=== PATIENT | female | born 1995 | race Caucasian/White ===

== ENCOUNTER 2018-06-14 17:41 | Outpatient (REF) | payer MEDICAID, SELFPAY | END 2018-06-14 17:42 | LOC: NCHCN 17:41 | PROVIDERS: PCP Specialist/Technologist Athletic Trainer; Visit Provider Physician Assistant Medical | DX: R30.0 Dysuria (principal) | CPT/HCPCS: 87086 ==

== ENCOUNTER 2018-07-17 12:20 | Outpatient (REF) | payer MEDICAID, SELFPAY ==
--- NOTE | 2018-07-17 10:30 | PAPFT_PTH ---
PATIENT: Shannon Barajas LOC: [facility] U#:[id number] AGE/SX: 23/F ROOM: RE07/17/[address]: ABIOLA Dumont : 1995 BED: DIS: 07/17/2018 SPEC #: [id number] RECD: 07/17/18 13:16 STATUS: PRACHI REAdolfo #: [id number] KENROY: 07/17/18 10:[address]: Beth Powers DEPT: [facility] Cytology RECD BY: Leonor Alonso ENTERED: 07/17/18 13:16 SP TYPE: PAPFT OTHR DR: Christiano Wright Tissues: 1 - CX/ENDOCX FOR PAP SMEARS Procedures: PAP THIN PREP/UVM Screening Comments: [id number]
[2018-07-18 14:39] LABS: Chlamydia Result Negative; GC Result Negative; Specimen Description CERVIX
== END 2018-07-17 12:40 ==
LOC: LBN 12:20
PROVIDERS: PCP Specialist/Technologist Athletic Trainer; Visit Provider Nurse Practitioner Family
DX: Z11.3 Encounter for screening for infections with a predominantly sexual mode of transmission (principal); Z12.4 Encounter for screening for malignant neoplasm of cervix
CPT/HCPCS: 87491; 87591; 88142

== ENCOUNTER 2018-08-19 14:27 | Emergency (ER) | payer MEDICAID, SELFPAY ==
[2018-08-19 14:32] VITALS: BP 142/83; PULSE 119; RESP 18; TEMP 36.7; O2SAT 98
--- NOTE | 2018-08-19 14:59 | W.ED.GENAD ---
Discharge Plan Disposition Patient Disposition: HOME Condition: Good Discharge Details Chief Complaint: Sorethroat Clinical Impression: Acute bilateral otitis media Primary Care Provider: Christiano Wright ED Provider: Miguel May Home Meds and New Rx's Prescriptions: New amoxicillin 500 mg capsule 500 mg PO TID Qty: 30 RF: 0 Continue fluoxetine 10 MG capsule 10 mg PO DAILY RF: 0 medroxyprogesterone [Depo-Provera] 150 MG/1 ML syringe 150 mg IM every 3 months Qty: 1 RF: 5 quetiapine 25 MG tablet 25 mg PO BID RF: 0 clonidine HCl [Catapres] 0.2 MG tablet 0.2 mg PO HS RF: 0 divalproex 500 MG tablet extended release 24 hr 500 mg PO BID RF: 0 dicyclomine 20 MG tablet 20 mg PO QID PRN (Reason: Pain) Qty: 12 RF: 0 dicyclomine 20 MG tablet 20 mg PO QID 7 Days RF: 0 Discharge Instructions Instructions: Otitis Media (ED) Discharge Data Discharge Physician: Miguel May Medical Decision Making 23 yo female comes in with bilateral ear pain, sore throat and dry cough for 4-5 days. Denies fevers or difficulty swallowing or sob. She has bilateral redness of both tm's so will start on abx for aom. no findings to suggest mastoiditis. 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 I suspect she has a viral uri and eveloped AOM. Her lungs are clear and has no fever so do not feel xray indicated at this time. Advised f/u with pcp this week and return precautions given Differential Diagnosis aom, uri HPI General Mode of arrival: ambulatory. Date/Time Provider Initiated Documentation: 08/19/18 14:52. Limitations to Documentation: no limitations. Information obtained by: patient. History of Present Illness 23 year old F presents to the emergency department with the chief complaint of bilateral ear pain, described as moderate, with intensity rated at 5. Quality is described as aching, Patient reports no radiation. No relieving factors improve symptom(s), No exacerbating factors reported . Patient notes other (sore throat). Patient did receive the following treatments prior to arrival, none Related Data Home Medications Medication Instructions Recorded Confirmed clonidine HCl [Catapres] 0.2 mg PO HS 03/29/13 07/17/18 divalproex 500 mg PO BID 03/29/13 07/17/18 quetiapine 25 mg PO BID 03/29/13 07/17/18 fluoxetine 10 mg PO DAILY 02/24/17 07/17/18 medroxyprogesterone [Depo-Provera] 150 mg IM every 3 months #1 syringe 04/18/18 dicyclomine 20 mg PO QID PRN #12 tab 05/19/18 07/17/18 dicyclomine 20 mg PO QID 7 Days tab 05/24/18 07/17/18 amoxicillin 500 mg PO TID #30 cap 08/19/18 Previous Rx's Medication Instructions Recorded medroxyprogesterone [Depo-Provera] 150 mg IM every 3 months #1 syringe 04/18/18 dicyclomine 20 mg PO QID PRN #12 tab 05/19/18 dicyclomine 20 mg PO QID 7 Days tab 05/24/18 amoxicillin 500 mg PO TID #30 cap 08/19/18 Allergies Allergy/AdvReac Type Severity Reaction Status Date / Time paroxetine HCl [From Paxil] Allergy Intermediate Hives Verified 07/17/18 10:25 risperidone [From Risperdal] Allergy Intermediate Hives Verified 07/17/18 10:25 NSAIDS (Non-Steroidal Allergy Verified 07/17/18 10:25 Anti-Inflamma enviornmental Allergy Mild sneezing Uncoded 05/24/18 20:47 General Stated Complaint: Sorethroat MARY KAY: 4 Review of Systems Review of Systems All systems reviewed & are unremarkable except as noted in HPI and below Constitutional Denies weakness Eyes Denies loss of vision ENT Denies change in voice Cardiovascular Denies chest pain and Denies dyspnea Respiratory Denies dyspnea Gastrointestinal Denies abdominal pain, Denies nausea and Denies vomiting Genitourinary Denies dysuria Musculoskeletal Denies joint swelling Integumentary/Breasts Denies rash Neurologic Denies loss of vision and Denies weakness Psychiatric Denies depression Endocrine Denies cold intolerance and Denies heat intolerance Allergic/Immunologic Reports urticaria PFSH Female Reproductive History Menstrual control method: progesterone injection Total pregnancies: 0 Exam Const General: no acute distress Orientation: alert HENMT Head: normal to inspection Ears: other (both tm's red and bulging, no redness swelling or warmth or pain over mastoids) General nose exam: external nose normal Mouth: moist mucous membranes Eyes General: appearance normal, both eyes and all related structures Neck Neck: normal visual inspection Resp Effort & Inspection: normal respiratory effort and able to speak in complete sentences Cardio Rate: regular rate Skin General skin exam: no rashes or lesions noted Neuro General: alert and oriented x3 Extrem General: normal to inspection Psych Mental Status: mental status grossly normal Course Vital Signs Temperature 36.7 C 08/19/18 14:32 Pulse 119 H 08/19/18 14:32 Respiratory Rate 18 08/19/18 14:32 Blood Pressure 142/83 H 08/19/18 14:32 Pulse Oximetry 98 08/19/18 14:32 Temperature 36.7 C 08/19/18 14:32 Temperature Source Temporal Artery Scan 08/19/18 14:32 Pulse 119 H 08/19/18 14:32 Respiratory Rate 18 08/19/18 14:32 Respiratory Effort 08/19/18 14:35 Blood Pressure 142/83 H 08/19/18 14:32 Blood Pressure Position Supine 08/19/18 14:32 Pulse Oximetry 98 08/19/18 14:32 Oxygen Delivery Method Room Air 08/19/18 14:32 Oxygen Flow Rate 0 08/19/18 14:32
--- NOTE | 2018-08-19 15:03 | ED.GENADUL_ITS ---
Discharge Plan Disposition Patient Disposition: HOME Condition: Good Discharge Details Chief Complaint: Sorethroat Clinical Impression: Acute bilateral otitis media Primary Care Provider: Christiano Wright ED Provider: Miguel May Home Meds and New Rx's Prescriptions: New amoxicillin 500 mg capsule 500 mg PO TID Qty: 30 RF: 0 Continue fluoxetine 10 MG capsule 10 mg PO DAILY RF: 0 medroxyprogesterone [Depo-Provera] 150 MG/1 ML syringe 150 mg IM every 3 months Qty: 1 RF: 5 quetiapine 25 MG tablet 25 mg PO BID RF: 0 clonidine HCl [Catapres] 0.2 MG tablet 0.2 mg PO HS RF: 0 divalproex 500 MG tablet extended release 24 hr 500 mg PO BID RF: 0 dicyclomine 20 MG tablet 20 mg PO QID PRN (Reason: Pain) Qty: 12 RF: 0 dicyclomine 20 MG tablet 20 mg PO QID 7 Days RF: 0 Discharge Instructions Instructions: Otitis Media (ED) Discharge Data Discharge Physician: Miguel May Medical Decision Making 23 yo female comes in with bilateral ear pain, sore throat and dry cough for 4- 5 days. Denies fevers or difficulty swallowing or sob. She has bilateral redness of both tm's so will start on abx for aom. no findings to suggest mastoiditis. 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 I suspect she has a viral uri and eveloped AOM. Her lungs are clear and has no fever so do not feel xray indicated at this time. Advised f/u with pcp this week and return precautions given Differential Diagnosis aom, uri HPI General Mode of arrival: ambulatory . Date/Time Provider Initiated Documentation: 08/19/18 14:52 . Limitations to Documentation: no limitations . Information obtained by: patient . History of Present Illness 23 year old F presents to the emergency department with the chief complaint of bilateral ear pain, described as moderate, with intensity rated at 5. Quality is described as aching, Patient reports no radiation. No relieving factors improve symptom(s), No exacerbating factors reported . Patient notes other (sore throat). Patient did receive the following treatments prior to arrival, none Related Data Home Medications Medication Instructions Recorded Confirmed clonidine HCl [Catapres] 0.2 mg PO HS 03/29/13 07/17/18 divalproex 500 mg PO BID 03/29/13 07/17/18 quetiapine 25 mg PO BID 03/29/13 07/17/18 fluoxetine 10 mg PO DAILY 02/24/17 07/17/18 medroxyprogesterone [Depo-Provera] 150 mg IM every 3 months #1 syringe 04/18/18 dicyclomine 20 mg PO QID PRN #12 tab 05/19/18 07/17/18 dicyclomine 20 mg PO QID 7 Days tab 05/24/18 07/17/18 amoxicillin 500 mg PO TID #30 cap 08/19/18 Previous Rx's Medication Instructions Recorded medroxyprogesterone [Depo-Provera] 150 mg IM every 3 months #1 syringe 04/18/18 dicyclomine 20 mg PO QID PRN #12 tab 05/19/18 dicyclomine 20 mg PO QID 7 Days tab 05/24/18 amoxicillin 500 mg PO TID #30 cap 08/19/18 Allergies Allergy/AdvReac Type Severity Reaction Status Date / Time paroxetine HCl [From Paxil] Allergy Intermediate Hives Verified 07/17/18 10:25 risperidone [From Risperdal] Allergy Intermediate Hives Verified 07/17/18 10:25 NSAIDS (Non-Steroidal Allergy Verified 07/17/18 10:25 Anti-Inflamma enviornmental Allergy Mild sneezing Uncoded 05/24/18 20:47 General Stated Complaint: Sorethroat MARY KAY: 4 Review of Systems Review of Systems All systems reviewed & are unremarkable except as noted in HPI and below Constitutional Denies weakness Eyes Denies loss of vision ENT Denies change in voice Cardiovascular Denies chest pain and Denies dyspnea Respiratory Denies dyspnea Gastrointestinal Denies abdominal pain, Denies nausea and Denies vomiting Genitourinary Denies dysuria Musculoskeletal Denies joint swelling Integumentary/Breasts Denies rash Neurologic Denies loss of vision and Denies weakness Psychiatric Denies depression Endocrine Denies cold intolerance and Denies heat intolerance Allergic/Immunologic Reports urticaria PFSH Female Reproductive History Menstrual control method: progesterone injection Total pregnancies: 0 Exam Const General: no acute distress Orientation: alert HENMT Head: normal to inspection Ears: other (both tm's red and bulging, no redness swelling or warmth or pain over mastoids) General nose exam: external nose normal Mouth: moist mucous membranes Eyes General: appearance normal, both eyes and all related structures Neck Neck: normal visual inspection Resp Effort & Inspection: normal respiratory effort and able to speak in complete sentences Cardio Rate: regular rate Skin General skin exam: no rashes or lesions noted Neuro General: alert and oriented x3 Extrem General: normal to inspection Psych Mental Status: mental status grossly normal Course Vital Signs Temperature 36.7 C 08/19/18 14:32 Pulse 119 H 08/19/18 14:32 Respiratory Rate 18 08/19/18 14:32 Blood Pressure 142/83 H 08/19/18 14:32 Pulse Oximetry 98 08/19/18 14:32 Temperature 36.7 C 08/19/18 14:32 Temperature Source Temporal Artery Scan 08/19/18 14:32 Pulse 119 H 08/19/18 14:32 Respiratory Rate 18 08/19/18 14:32 Respiratory Effort 08/19/18 14:35 Blood Pressure 142/83 H 08/19/18 14:32 Blood Pressure Position Supine 08/19/18 14:32 Pulse Oximetry 98 08/19/18 14:32 Oxygen Delivery Method Room Air 08/19/18 14:32 Oxygen Flow Rate 0 08/19/18 14:32
== END 2018-08-19 15:23 | disposition home or self-care (01) ==
PROVIDERS: Emergency Provider Emergency Medicine; PCP Specialist/Technologist Athletic Trainer
DX: H65.193 Other acute nonsuppurative otitis media, bilateral (principal)
CPT/HCPCS: 87880; 99283; 87081

== ENCOUNTER 2019-02-15 20:42 | Emergency (ER) | payer MEDICAID, SELFPAY ==
[2019-02-15 20:50] VITALS: BP 163/98; PULSE 108; RESP 18; TEMP 36.7; O2SAT 97
--- NOTE | 2019-02-15 21:03 | ED.GENADUL_ITS ---
Discharge Plan Disposition Patient Disposition: HOME Condition: Good Discharge Details Chief Complaint: Urinary Clinical Impression: UTI (urinary tract infection), Acute mesenteric adenitis Primary Care Provider: Christiano Wright ED Provider: Douglas Gamez Home Meds and New Rx's Prescriptions: New cephalexin [Keflex] 500 mg capsule 500 mg PO QID 7 Days Qty: 28 RF: 0 No Action fluoxetine 10 MG capsule 10 mg PO DAILY RF: 0 medroxyprogesterone [Depo-Provera] 150 MG/1 ML syringe 150 mg IM every 3 months Qty: 1 RF: 5 quetiapine 25 MG tablet 25 mg PO BID RF: 0 clonidine HCl [Catapres] 0.2 MG tablet 0.2 mg PO HS RF: 0 divalproex 500 MG tablet extended release 24 hr 500 mg PO BID RF: 0 Discharge Instructions Instructions: Urinary Tract Infection in Women (ED) Additional Instructions: Please take the antibiotic as directed. Please drink 10-12 cups of water per day. If you notice any worsening of your symptoms, or any new symptoms such as vomiting, diarrhea, fever, chills, shortness of breath, chest pain, numbness, weakness, or fainting , please return immediately to the emergency department for reevaluation. Please follow up with your primary care provider as soon as possible for reassessment and reevaluation. As always, it was a pleasure participating in your medical care today. Referrals: Christiano Wright [Primary Care Provider] - Medical Decision Making This is a 23-year-old female with a past medical history of chronic kidney disease, obesity, depression and ADHD who presents today for evaluation of flank pain, mild urinary burning, mild infraumbilical abdominal pain. She does admit to occasional vomiting over the last 24 hours, but also seems to insinuate that there is a chronic component. Last episode of vomiting was this evening. Her story does seem to change during our encounter. Exam demonstrates very mild reproducible infraumbilical and right lower quadrant tenderness. Vital signs demonstrate mild tachycardia. She denies any pelvic pain, she does admit to some mild chronic clear vaginal discharge, she denies any history of STDs or sexual encounters ever. She is requesting to hold off in any vaginal exam at this time. Signs and symptoms inconsistent with vaginal/pelvic etiology, and are also clinically inconsistent with ovarian torsion. Exam is concerning though for questionable appendicitis, kidney stone, or urinary tract infection. We will get a CT scan to evaluate for an acute process, rehydrate, reassess. 10:53 PM Urinalysis has returned and demonstrates evidence concerning for urinary tract infection. Laboratory demonstrates a mildly elevated white count at 12.2, no bandemia, very mild left shift. Electrolytes and renal function are normal. Lipase is normal. We are still pending CT scan results at this time. 11:[address] scan results have returned, no evidence of appendicitis, there is evidence of mesenteric adenitis O. Contracted gallbladder but otherwise no other significant abnormalities on CT scan. No other concerning red flags on imaging. The patient feels much better at this time, she is able to tolerate p.o. challenge well, and with a notable improvement of her symptoms, feel that discharge home is reasonable. She has been given a gram of ceftriaxone here in the ED and will be given a prescription for Keflex at home. I have extensively reviewed the treatment plan and discharge instructions with the patient and their family. I have addressed all patient concerns at this time. The patient and family was made aware of what symptoms to monitor for that would warrant a return to the emergency department. Discussed the plan with the patient and family, they demonstrate verbal understanding and agreement with our assessment and plan at this time. FINDINGS: Lower thorax: No acute findings. ABDOMEN: Liver: Normal. No mass. Gallbladder and bile ducts: The gallbladder is contracted there are no stones visible no dilatation of the bile ducts. Pancreas: Normal. No ductal dilation. Spleen: Normal. No splenomegaly. Adrenals: Normal. No mass. Kidneys and ureters: Normal. No hydronephrosis. Stomach and bowel: The stomach is moderately distended with fluid and residual food material. Appendix: The appendix shows no abdomen on it. However there are multiple shotty lymph nodes adjacent to the medial aspect of the cecum these are also seen in the previous study in 05/18/2018. There is no definite inflammation in this area otherwise however. PELVIS: Bladder: Unremarkable as visualized. Reproductive: The ovaries are prominent but show no acute abnormality. ABDOMEN and PELVIS: Intraperitoneal space: Normal. No free air. No significant fluid collection. Bones/joints: No acute fracture. No dislocation. Soft tissues: Unremarkable. Vasculature: Normal. No abdominal aortic aneurysm. Lymph nodes: See Appendix Finding. IMPRESSION: #1 there is no evidence of appendicitis. Again noted are findings suggesting mesenteric adenitis similar to 05/18/2018. #2 contracted gallbladder but otherwise no evidence of acute cholecystitis. Thank you for allowing us to participate in the care of your patient. Dictated and Authenticated by: Miguel Bertrand MD 02/15/2019 11:03 PM Eastern Time ([place] & [place]) HPI General Date/Time Provider Initiated Documentation: 02/15/19 20:48 . HPI Narrative: This is a 23-year-old female with a past medical history of chronic kidney disease stage I, ADHD, hypertension, Nexplanon, and obesity and depression, who presents today for evaluation of abdominal pain nausea and vomiting, and flank pain. Patient states that for the last day she has had mild burning when she urinates, pain in her bilateral flanks that radiates down towards her groin, as well as occasional intermittent nausea and vomiting. She does admit to abdominal pain as well in the infraumbilical region, with some radiation to the right. She denies any pelvic pain. She does admit to her regular vaginal discharge. She denies any sexual intercourse, states that she does not have a boyfriend and has never had sex. She denies any history of STDs. She denies any vaginal bleeding. She is requesting that we do not perform any vaginal exams at this time. She denies any chest pain, shortness of breath, weakness, numbness, headache, vision changes, hematochezia, melena, acholic stools or diarrhea. No other complaints at this time. She is currently here with 1 of her care workers. Related Data Home Medications Medication Instructions Recorded Confirmed clonidine HCl [Catapres] 0.2 mg PO HS 03/29/13 02/15/19 divalproex 500 mg PO BID 03/29/13 02/15/19 quetiapine 25 mg PO BID 03/29/13 02/15/19 fluoxetine 10 mg PO DAILY 02/24/17 02/15/19 medroxyprogesterone [Depo-Provera] 150 mg IM every 3 months #1 syringe 04/18/18 02/15/19 cephalexin [Keflex] 500 mg PO QID 7 Days #28 cap 02/15/19 Previous Rx's Medication Instructions Recorded medroxyprogesterone [Depo-Provera] 150 mg IM every 3 months #1 syringe 04/18/18 cephalexin [Keflex] 500 mg PO QID 7 Days #28 cap 02/15/19 Allergies Allergy/AdvReac Type Severity Reaction Status Date / Time paroxetine HCl [From Paxil] Allergy Intermediate Hives Verified 02/15/19 20:54 risperidone [From Risperdal] Allergy Intermediate Hives Verified 02/15/19 20:54 NSAIDS (Non-Steroidal Allergy Verified 02/15/19 20:54 Anti-Inflamma enviornmental Allergy Mild sneezing Uncoded 02/15/19 20:54 General Stated Complaint: Urinary MARY KAY: 3 Review of Systems Review of Systems All systems reviewed & are unremarkable except as noted in HPI and below PFSH Social History Smoking/Tobacco Use Status: Former Tobacco Use Alcohol Intake: current Alcohol Intake frequency: holidays/special occasions only Drug use: Never Substance use type: does not use Sexually active: No (has never been sexually active. ) What is your relationship status?: never Panel score (0-1 are the most socially isolated patients): 0 Do you feel safe in your relationship?: Yes Additional Social history: 11/23/18 Pt reports living in house with lap layer. Reports not being able to shower at her current living situation. GM lives in the area. 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 Female Reproductive History Menstrual control method: progesterone injection (01/2017 Nexplanon for dysmenorrhea. Unable to rito insertion of IUD. Depo since 09/2017) History History 0 Para Hx # Term Pregnancies Multiple births Hx # Pregnancies Ectopic pregnancies AB induced Hx Number of Living Children AB spontaneous Exam Narrative Exam Narrative: 1.Const: Well-nourished, Well-developed, appearing stated age 2.Eyes: PERRL, no conjunctival injection, and symmetrical lids. 3.ENT: Atraumatic external nose and ears. Moist MM. Neck: Symmetric, trachea midline, No thyromegaly. 4.CVS: +S1/S2, No murmurs or gallops. Peripheral pulses 2+ and equal in all extremities. Brisk capillary refill in all extremities. 5.RESP: Unlabored respiratory effort. Clear to auscultation bilaterally. No wheezes rales or rhonchi 6.GI: Soft, Nondistended, No hepatosplenomegaly. No guarding or rebound. Mild tenderness in the infraumbilical region, as well as some radiation to the right. No significant CVA or flank tenderness. No pelvic pain on palpation. Negative obturator and psoas sign. 7.MSK: Normocephalic/Atraumatic, Extremities w/o deformity or ttp No cyanosis or clubbing, Normal movement of all extremities 8.Skin: Warm, Dry. No rashes or lesions. 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 Sensation grossly intact, no focal neurologic deficits. 10.Psych: (AAO) x3. Appropriate mood and affect Course Vital Signs Temperature 36.7 C 02/15/19 20:50 Pulse 108 H 02/15/19 20:50 Respiratory Rate 18 02/15/19 20:50 Blood Pressure 163/98 H 02/15/19 20:50 Pulse Oximetry 97 02/15/19 20:50 Temperature 36.7 C 02/15/19 20:50 Pulse 108 H 02/15/19 20:50 Respiratory Rate 18 02/15/19 20:50 Respiratory Effort Non-Labored 02/15/19 20:55 Blood Pressure 163/98 H 02/15/19 20:50 Pulse Oximetry 97 02/15/19 20:50 Pain Level 4 02/15/19 20:55
[2019-02-15 21:21] LABS: Bilirubin Negative (Negative); Blood Negative (Negative); Clarity Clear; Glucose Negative (Negative); Ketones Trace mg/dL (Negative); Leukocyte Esterase Trace (Negative); Nitrite Negative (Negative); Specific Gravity 1.025 (1.005-1.025); Urobilinogen 0.2 EU/dL (Up TO 0.2)
[2019-02-15 21:39] LABS: Bacteria Rare HPF (Negative); C & S Indicated? Yes; Casts Negative LPF (Negative); Epithelial Cells Few HPF (Negative); Mucus Trace (Negative); RBC Negative (0-2); WBC 20-50 HPF (0-5)
[2019-02-15 21:51] LABS: Abs Immature Grans 0.02 k/cumm (0.0-0.09); Absolute Basophil Count 0.02 k/cumm (0.0-0.2); Absolute Eosinophil Count 0.18 k/cumm (0.0-0.7); Absolute Lymphocyte Count 2.84 k/cumm (1.2-3.4); Absolute Monocyte Count 1.15 k/cumm (0.11-0.7); Absolute Neutrophil Count 8.06 k/cumm (1.2-6.7); Basophils % 0.2; Eosinophils % 1.5; HCT 40.6 % (36.0-46.0); HGB 13.3 g/dL (12.0-15.5); Immature Grans % 0.2; Lymphocytes % 23.1; Mean Corp. HGB Concentration 32.8 g/dL (32.0-36.0); Mean Corpuscular Hemoglobin 25.2 pg (27.0-33.0); Mean Corpuscular Volume 76.9 fL (80-95); Monocytes % 9.4; Neutrophils % 65.6; Platelet Count 281 x1000/uL (130-400); RBC 5.28 m/cumm (4.00-5.20); RBC Distribution Width 14.9 % (11.7-14.6); White Blood Cell Count 12.28 k/cumm (4.4-10.8)
[2019-02-15] MEDS: Omnipaque 350 MG/ML 100 ML BTL IJ (21:58)
--- NOTE | 2019-02-15 21:59 | DI.CT_ITS ---
SYMPTOM/DIAGNOSIS: RLQ ABD PAIN, BILAT FLANK PAIN ABDOMEN AND PELVIC CT: CT examination of the abdomen and pelvis was performed with a bolus infusion of 100 cc's of Omnipaque 350. Images obtained through the lung bases are unremarkable. Liver, spleen, pancreas, gallbladder and bile ducts are unremarkable. Adrenals and kidneys appear normal. No urinary tract calcification or obstruction. Abdominal aorta is of normal diameter and no major vascular abnormality is seen. There is mild prominence of mesenteric lymph nodes, both centrally and in the right lower quadrant. No bulky adenopathy is seen. Appendix is normal. No evidence of diverticulitis or bowel obstruction. 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 No abdominal wall hernia is seen. CONCLUSION: Mild mesenteric lymph node prominence right lower quadrant and central. No evidence of appendicitis.
[2019-02-15 22:08] LABS: ALT 29 U/L (12-78); AST 17 U/L (15-37); Albumin 3.9 g/dL (3.4-5.0); Alkaline Phosphatase 109 U/L (46-116); Anion Gap 12.7 mmol/L (3-11); BUN 10 mg/dL (7-18); Bilirubin, Total 0.2 mg/dL (0.2-1.0); CO2 23.3 mmol/L (21.0-32.0); CREATININE 0.62 mg/dL (0.55-1.02); Chloride 103 mmol/L (98-107); Glucose 101 mg/dL (70-100); Lipase 102 U/L (73-393); Potassium 3.4 mmol/L (3.5-5.1); Sodium 139 mmol/L (136-145); Total Protein 7.7 g/dL (6.4-8.2)
[2019-02-15 22:15] LABS: Calcium 9.1 mg/dL (8.5-10.1)
--- NOTE | 2019-02-15 23:05 | DI.VRAD_ITS ---
EXAM: CT Abdomen and Pelvis With Contrast EXAM DATE/TIME: 02/15/2019 8:56 PM CLINICAL HISTORY: 23 years old, female; Pain; Abdominal pain; Localized; Right lower quadrant (rlq) TECHNIQUE: Imaging protocol: Axial computed tomography images of the abdomen and pelvis with intravenous contrast. Coronal and sagittal reformatted images were created and reviewed. Radiation optimization: All CT scans at this facility use at least one of these dose optimization techniques: automated exposure control; mA and/or kV adjustment per patient size (includes targeted exams where dose is matched to clinical indication); or iterative reconstruction. Contrast material: [id number] Contrast volume: 100 ml Contrast route: iv COMPARISON: CT ABD PELVIS WITH CONTRAST 05/18/2018 10:06 PM FINDINGS: Lower thorax: No acute findings. ABDOMEN: Liver: Normal. No mass. Gallbladder and bile ducts: The gallbladder is contracted there are no stones visible no dilatation of the bile ducts. Pancreas: Normal. No ductal dilation. Spleen: Normal. No splenomegaly. Adrenals: Normal. No mass. Kidneys and ureters: Normal. No hydronephrosis. Stomach and bowel: The stomach is moderately distended with fluid and residual food material. Appendix: The appendix shows no abdomen on it. However there are multiple shotty lymph nodes adjacent to the medial aspect of the cecum these are also seen in the previous study in 05/18/2018. There is no definite inflammation in this area otherwise however. PELVIS: Bladder: Unremarkable as visualized. Reproductive: The ovaries are prominent but show no acute abnormality. ABDOMEN and PELVIS: Intraperitoneal space: Normal. No free air. No significant fluid collection. Bones/joints: No acute fracture. No dislocation. Soft tissues: Unremarkable. Vasculature: Normal. No abdominal aortic aneurysm. Lymph nodes: See Appendix Finding. IMPRESSION: #1 there is no evidence of appendicitis. Again noted are findings suggesting mesenteric adenitis similar to 05/18/2018. #2 contracted gallbladder but otherwise no evidence of acute cholecystitis. Dictated and Authenticated by: Miguel Bertrand MD. Ordering:DIO Cole MD
== END 2019-02-15 23:20 | disposition home or self-care (01) ==
PROVIDERS: Emergency Provider Student in an Organized Health Care Education/Training Program; PCP Specialist/Technologist Athletic Trainer
DX: N39.0 Urinary tract infection, site not specified (principal); I88.0 Nonspecific mesenteric lymphadenitis
CPT/HCPCS: 36415; 80053; 81025; 83690; 96374; 96375; 99285; 74177; 81003; 81015; 85025; 87086; 99284; J2405; J3490

== ENCOUNTER 2019-02-27 14:55 | Outpatient (REF) | payer MEDICAID, SELFPAY ==
[2019-03-01 13:59] LABS: Chlamydia Result Negative; GC Result Negative; Specimen Description URINE
== END 2019-02-27 15:15 ==
LOC: LBN 14:55
PROVIDERS: PCP Specialist/Technologist Athletic Trainer; Visit Provider Nurse Practitioner Family
DX: R35.0 Frequency of micturition (principal); Z11.3 Encounter for screening for infections with a predominantly sexual mode of transmission
CPT/HCPCS: 87491; 87591; 87086

== ENCOUNTER 2019-03-03 18:30 | Emergency (ER) | payer MEDICAID, SELFPAY ==
[2019-03-03 18:32] VITALS: BP 146/92; PULSE 119; RESP 18; TEMP 36.7; O2SAT 97
[2019-03-03 18:55] LABS: Bilirubin Negative (Negative); Blood Negative (Negative); Clarity Clear; Glucose Negative (Negative); Ketones Negative (Negative); Leukocyte Esterase Negative (Negative); Nitrite Negative (Negative); Specific Gravity 1.025 (1.005-1.025); Urobilinogen 0.2 EU/dL (Up TO 0.2)
--- NOTE | 2019-03-03 18:56 | ED.GENADUL_ITS ---
Discharge Plan Disposition Patient Disposition: HOME Condition: Improving Discharge Details Chief Complaint: Urinary Clinical Impression: Urinary incontinence, Foul smelling vaginal discharge, Abdominal pain Primary Care Provider: Christiano Wright ED Provider: Margoth Donohue Home Meds and New Rx's Prescriptions: New fluconazole [Diflucan] 150 mg tablet 150 mg PO ONCE Qty: 1 RF: 0 metronidazole [Flagyl] 500 mg tablet 500 mg PO BID 7 Days Qty: 14 RF: 0 Continued nitrofurantoin monohyd/m-cryst [Macrobid] 100 mg capsule 100 mg PO BID Qty: 14 RF: 0 fluoxetine 10 MG capsule 10 mg PO DAILY RF: 0 medroxyprogesterone [Depo-Provera] 150 MG/1 ML syringe 150 mg IM every 3 months Qty: 1 RF: 5 quetiapine 25 MG tablet 25 mg PO BID RF: 0 clonidine HCl [Catapres] 0.2 MG tablet 0.2 mg PO HS RF: 0 divalproex 500 MG tablet extended release 24 hr 500 mg PO BID RF: 0 Discharge Instructions Instructions: Bacterial Vaginosis (ED), Vulvovaginal Candidiasis (ED), Abdominal Pain (ED) Additional Instructions: Take the Diflucan and Flagyl as directed until finished. Take the Macrobid until finished. Call your primary care doctor tomorrow to schedule a follow-up appointment for reevaluation this week. Return immediately to emergency department with any worsening or new concerning symptoms. Discharge Data Discharge Date/Time-TO BE ENTERED AT DEPARTURE: 03/03/19 19:49 Discharge Physician: Margoth Donohue Medical Decision Making 23-year-old female with recent treatment for UTI with Keflex and Macrobid who presents with persistent urinary incontinence and left lower quadrant pain for the past 2 weeks. She was seen here in the ED on 02/15/2019 for abdominal pain and had lab work and imaging which was positive for UTI and mesenteric adenitis and she was sent home with Keflex. She states her symptoms of urinary incontinence and abdominal pain persisted and she followed up with the clinic and was given a prescription for Macrobid for her dysuria. Records at that time note that she could possibly have vaginal atrophy that are contributing to her symptoms. She also admits to foul-smelling white thick vaginal discharge and vaginal itching. She states she has never had sexual intercourse and has never been sexually active with anyone in the past. Negative test at pcp office 4 days ago. Heart rate tachycardic on arrival, normal on my exam, remainder vitals within normal limits. Afebrile. Patient appears nontoxic. Abdomen is soft and very minimally tender in the left lower quadrant. As patient had recent CT imaging and her symptoms have not changed since then, I do not see an indication for repeat imaging and patient is agreeable. She is agreeable with plan for repeat blood work and vaginal cultures. 1920 --patient unable to tolerate speculum exam due to discomfort. She states she is usually unable to tolerate speculum on previous vaginal exams. She is noted to have white foul-smelling discharge with some minimal vaginal bleeding and mild external labial erythema/edema. No lesions/abrasions. No cervical motion tenderness, no adnexal mass or tenderness bilaterally on bimanual exam. Discussed with patient that due to her symptoms, this may be due to bacterial vaginosis and/or yeast infection. Although we do not have cultures to confirm this, we can treat her empirically and she is agreeable with this plan. On reexamination of abdomen, patient had no abdominal tenderness. In the setting of normal labs, reassuring abdominal exam with no left lower quadrant tenderness on abdominal or bimanual exam, doubt ovarian torsion or another acute abdominal process at this time. Labs reviewed and unremarkable. Urinalysis negative. Patient instructed to finish the Macrobid as directed. Will send home with prescription for Flagyl and Diflucan. Patient instructed to follow-up with her primary care doctor next week and return here immediately if worse. Lab Data Lab results reviewed: Yes I reviewed the patient's lab results. Laboratory Tests Range/Units 03/03/19 03/03/19 03/03/19 18:48 19:03 19:03 WBC (4.4-10.8) k/cumm 10.31 RBC (4.00-5.20) m/cumm 5.19 Hgb (12.0-15.5) g/dL 13.3 Hct (36.0-46.0) % 39.6 MCV (80-95) fL 76.3 L MCH (27.0-33.0) pg 25.6 L MCHC (32.0-36.0) g/dL 33.6 RDW (11.7-14.6) % 14.5 Plt Count (130-400) x1000/uL 250 MPV (8.0-11.0) fL 12.9 H Immature Gran % 0.2 Neutrophils % 61.9 Lymphocytes % 24.6 Monocytes % 11.4 Eosinophils % 1.5 Basophils % 0.4 Absolute Neutrophils (1.2-6.7) k/cumm 6.38 Absolute Lymphocytes (1.2-3.4) k/cumm 2.54 Absolute Monocytes (0.11-0.7) k/cumm 1.18 H Absolute Eosinophils (0.0-0.7) k/cumm 0.15 Absolute Basophils (0.0-0.2) k/cumm 0.04 Sodium (136-145) mmol/L 138 Potassium (3.5-5.1) mmol/L 3.5 Chloride (98-107) mmol/L 103 Carbon Dioxide (21.0-32.0) mmol/L 24.1 Anion Gap (3-11) mmol/L 10.9 BUN (7-18) mg/dL 9 Creatinine (0.55-1.02) mg/dL 0.64 Estimated GFR/1.73 m2 (mL/min/1.73m2) >= 60.00 Glucose (70-100) mg/dL 109 H Calcium (8.5-10.1) mg/dL 8.7 Total Bilirubin (0.2-1.0) mg/dL 0.2 AST (15-37) U/L 16 ALT (12-78) U/L 28 Alkaline Phosphatase (46-116) U/L 111 Total Protein (6.4-8.2) g/dL 7.5 Albumin (3.4-5.0) g/dL 3.7 Lipase (73-393) U/L 103 Urine Color (Yellow) Yellow Urine Clarity Clear Urine pH (5-8) 7.0 Ur Specific [place] (1.005-1.025) 1.025 Urine Protein (Negative) mg/dL 100 H Urine Ketones (Negative) mg/dL Negative Urine Blood (Negative) Negative Urine Nitrite (Negative) Negative Urine Bilirubin (Negative) Negative Urine Urobilinogen (Up TO 0.2) EU/dL 0.2 Ur Leukocyte Esterase (Negative) Negative Urine RBC (0-2) Negative Urine WBC (0-5) HPF 0-2 Ur Epithelial Cells (Negative) HPF Rare Urine Crystals (Negative) HPF Negative Urine Bacteria (Negative) HPF Few Urine Casts (Negative) LPF Negative Urine Mucus (Negative) Trace Urine Other (Negative) Rare renal Ur Culture Indicated? No Urine Glucose (Negative) mg/dL Negative HPI General Mode of arrival: ambulatory . Date/Time Provider Initiated Documentation: 03/03/19 18:32 . Limitations to Documentation: no limitations . Information obtained by: patient . HPI Narrative: Patient is a 23-year-old female who presents with urinary incontinence and left lower quadrant pain for the past few weeks. Patient states the pain in the left lower quadrant is sharp and intermittent. She has recently been seen in the emergency department for this abdominal pain and had lab work and CT imaging and diagnosed with a UTI and treated with Keflex. She had a follow-up clinic visit and was given a prescription for Macrobid for her dysuria. Patient is not sexually active. Patient states she has been vomiting at the time she is taking the Macrobid and she is unsure keeping the medication down. She denies any known fever or back pain. Related Data Home Medications Medication Instructions Recorded Confirmed clonidine HCl [Catapres] 0.2 mg PO HS 03/29/13 03/03/19 divalproex 500 mg PO BID 03/29/13 03/03/19 quetiapine 25 mg PO BID 03/29/13 03/03/19 fluoxetine 10 mg PO DAILY 02/24/17 03/03/19 medroxyprogesterone [Depo-Provera] 150 mg IM every 3 months #1 syringe 04/18/18 03/03/19 nitrofurantoin 100 mg PO BID #14 cap 02/27/19 03/03/19 monohydrate/macrocrystals 100 mg capsule fluconazole [Diflucan] 150 mg PO ONCE #1 tab 03/03/19 metronidazole [Flagyl] 500 mg PO BID 7 Days #14 tab 03/03/19 Previous Rx's Medication Instructions Recorded medroxyprogesterone [Depo-Provera] 150 mg IM every 3 months #1 syringe 04/18/18 nitrofurantoin 100 mg PO BID #14 cap 02/27/19 monohydrate/macrocrystals 100 mg capsule fluconazole [Diflucan] 150 mg PO ONCE #1 tab 03/03/19 metronidazole [Flagyl] 500 mg PO BID 7 Days #14 tab 03/03/19 Allergies Allergy/AdvReac Type Severity Reaction Status Date / Time paroxetine HCl [From Paxil] Allergy Intermediate Hives Verified 03/03/19 18:55 risperidone [From Risperdal] Allergy Intermediate Hives Verified 03/03/19 18:55 NSAIDS (Non-Steroidal Allergy Verified 03/03/19 18:55 Anti-Inflamma enviornmental Allergy Mild sneezing Uncoded 03/03/19 18:55 General Stated Complaint: Urinary MARY KAY: 4 Review of Systems Review of Systems All systems reviewed & are unremarkable except as noted in HPI and below Constitutional Reports as per HPI, Denies chills and Denies fever(s) Eyes Denies blurry vision ENT Denies dizziness, Denies sore throat and Denies throat swelling Cardiovascular Denies chest pain and Denies dyspnea Respiratory Denies cough and Denies dyspnea Gastrointestinal Reports abdominal pain, Denies diarrhea and Reports vomiting Genitourinary Denies hematuria, Reports urinary frequency, Reports dysuria, Reports urinary incontinence, Reports urinary hesitancy, Reports urinary urgency, Reports vaginal odor and Reports vaginal pruritus Musculoskeletal Denies back pain and Denies numbness Integumentary/Breasts Denies lesions and Denies rash Neurologic Denies dizziness, Denies focal weakness and Denies numbness Allergic/Immunologic Denies throat swelling [facility] Medical History BMI 40.0-44.9, adult (Chronic) Overactive bladder (Chronic 02/09/18) Kidney disease (Chronic 09/13/17) 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 Reports not being able to shower at her current living situation. GM lives in the area. 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 Female Reproductive History Menstrual control method: progesterone injection (01/2017 Nexplanon for dysmenorrhea. Unable to rito insertion of IUD. Depo since 09/2017) History History 0 Para Hx # Term Pregnancies Multiple births Hx # Pregnancies Ectopic pregnancies AB induced Hx Number of Living Children AB spontaneous Exam Const General: cooperative, healthy appearing and no acute distress HENMT Head: normal to inspection Face and sinus: normal facial exam Eyes General: appearance normal, both eyes and all related structures EOM: EOM intact bilaterally Neck Neck: normal visual inspection and No submandibular swelling Lymphatic: no lymphadenopathy noted Chest Chest: normal inspection of the chest and no tenderness Resp Effort & Inspection: normal respiratory effort and able to speak in complete sentences Auscultation: clear to auscultation bilaterally Cardio Rate: regular rate Rhythm: regular rhythm GI Inspection: normal to inspection Palpation: soft, not firm, not rigid and tender (minimal LLQ tenderness ) Auscultation: normal bowel sounds Other: whitish vaginal discharge noted on external exam Skin General skin exam: no rashes or lesions noted Neuro General: alert, awake and oriented x3 Cognition: normal cognition Speech: speech normal Motor: muscle tone normal throughout Sensory Exam: no sensory deficits noted Extrem General: normal to inspection, full ROM and no edema Psych Appearance: grossly normal Mental Status: mental status grossly normal Speech and Movement: speech and movement normal Affect: normal affect Course Vital Signs Temperature 98.1 F 03/03/19 18:32 Pulse 119 H 03/03/19 18:32 Respiratory Rate 18 03/03/19 18:32 Blood Pressure 146/92 H 03/03/19 18:32 Pulse Oximetry 97 03/03/19 18:32 Temperature 98.1 F 03/03/19 18:32 Temperature Source Skin 03/03/19 18:32 Pulse 119 H 03/03/19 18:32 Respiratory Rate 18 04/27/19 18:32 Respiratory Effort Non-Labored 03/03/19 18:49 Blood Pressure 146/92 H 03/03/19 18:32 Blood Pressure Position Supine 03/03/19 18:32 Pulse Oximetry 97 03/03/19 18:32 Oxygen Delivery Method Room Air 03/03/19 18:32 Oxygen Flow Rate 0 03/03/19 18:32 Pain Level 4 03/03/19 18:32
[2019-03-03 19:02] LABS: Bacteria Few HPF (Negative); Crystals Negative HPF (Negative); Epithelial Cells Rare HPF (Negative); Mucus Trace (Negative); Other Cells Rare Renal (Negative); RBC Negative (0-2); WBC 0-2 HPF (0-5)
[2019-03-03 19:03] LABS: C & S Indicated? No; Casts Negative LPF (Negative)
[2019-03-03 19:15] LABS: Abs Immature Grans 0.02 k/cumm (0.0-0.09); Absolute Basophil Count 0.04 k/cumm (0.0-0.2); Absolute Eosinophil Count 0.15 k/cumm (0.0-0.7); Absolute Lymphocyte Count 2.54 k/cumm (1.2-3.4); Absolute Monocyte Count 1.18 k/cumm (0.11-0.7); Absolute Neutrophil Count 6.38 k/cumm (1.2-6.7); Basophils % 0.4; Eosinophils % 1.5; HCT 39.6 % (36.0-46.0); HGB 13.3 g/dL (12.0-15.5); Immature Grans % 0.2; Lymphocytes % 24.6; Mean Corp. HGB Concentration 33.6 g/dL (32.0-36.0); Mean Corpuscular Hemoglobin 25.6 pg (27.0-33.0); Mean Corpuscular Volume 76.3 fL (80-95); Mean Platelet Volume 12.9 fL (8.0-11.0); Monocytes % 11.4; Neutrophils % 61.9; Platelet Count 250 x1000/uL (130-400); RBC 5.19 m/cumm (4.00-5.20); RBC Distribution Width 14.5 % (11.7-14.6); White Blood Cell Count 10.31 k/cumm (4.4-10.8)
[2019-03-03 19:22] LABS: ALT 28 U/L (12-78); AST 16 U/L (15-37); Albumin 3.7 g/dL (3.4-5.0); Alkaline Phosphatase 111 U/L (46-116); Anion Gap 10.9 mmol/L (3-11); BUN 9 mg/dL (7-18); Bilirubin, Total 0.2 mg/dL (0.2-1.0); CO2 24.1 mmol/L (21.0-32.0); CREATININE 0.64 mg/dL (0.55-1.02); Chloride 103 mmol/L (98-107); Glucose 109 mg/dL (70-100); Lipase 103 U/L (73-393); Potassium 3.5 mmol/L (3.5-5.1); Sodium 138 mmol/L (136-145); Total Protein 7.5 g/dL (6.4-8.2)
[2019-03-03 19:27] LABS: Calcium 8.7 mg/dL (8.5-10.1)
[2019-03-03] MEDS: Dicyclomine 20 MG TAB PO (19:41)
== END 2019-03-03 19:49 | disposition home or self-care (01) ==
PROVIDERS: Emergency Provider Physician Assistant; PCP Specialist/Technologist Athletic Trainer
DX: N89.8 Other specified noninflammatory disorders of vagina (principal); R32 Unspecified urinary incontinence; R00.0 Tachycardia, unspecified; R10.32 Left lower quadrant pain; I15.1 Hypertension secondary to other renal disorders; N18.1 Chronic kidney disease, stage 1
CPT/HCPCS: 36415; 80053; 83690; 99283; 81003; 81015; 85025

== ENCOUNTER 2019-04-13 20:06 | Emergency (ER) | payer MEDICAID, SELFPAY ==
[2019-04-13 20:19] VITALS: BP 143/88; PULSE 129; RESP 18; TEMP 36.4; O2SAT 98
[2019-04-13 20:40] VITALS: RESP 18
[2019-04-13 20:48] LABS: Abs Immature Grans 0.03 k/cumm (0.0-0.09); Absolute Basophil Count 0.04 k/cumm (0.0-0.2); Absolute Eosinophil Count 0.21 k/cumm (0.0-0.7); Absolute Lymphocyte Count 2.11 k/cumm (1.2-3.4); Absolute Monocyte Count 1.29 k/cumm (0.11-0.7); Absolute Neutrophil Count 8.83 k/cumm (1.2-6.7); Basophils % 0.3; Eosinophils % 1.7; HCT 39.7 % (36.0-46.0); HGB 13.1 g/dL (12.0-15.5); Immature Grans % 0.2; Lymphocytes % 16.9; Mean Corpuscular Hemoglobin 25.3 pg (27.0-33.0); Mean Corpuscular Volume 76.8 fL (80-95); Mean Platelet Volume 13.3 fL (8.0-11.0); Monocytes % 10.3; Neutrophils % 70.6; Platelet Count 231 x1000/uL (130-400); RBC 5.17 m/cumm (4.00-5.20); RBC Distribution Width 15.3 % (11.7-14.6); White Blood Cell Count 12.51 k/cumm (4.4-10.8)
[2019-04-13] MEDS: Ondansetron 4 MG/2 ML VIAL IVP (20:49)
[2019-04-13] MEDS: Normal Saline 2,000 ML 1000 ML IV (20:49)
[2019-04-13 20:51] LABS: Bilirubin Negative (Negative); Blood Negative (Negative); Clarity Clear; Glucose Negative (Negative); Ketones Trace mg/dL (Negative); Leukocyte Esterase Negative (Negative); Nitrite Negative (Negative); Specific Gravity 1.025 (1.005-1.025); Urobilinogen 0.2 EU/dL (Up TO 0.2); pH 6.5 (5-8)
[2019-04-13 21:02] LABS: ALT 27 U/L (12-78); AST 13 U/L (15-37); Albumin 3.8 g/dL (3.4-5.0); Alkaline Phosphatase 106 U/L (46-116); Anion Gap 11.6 mmol/L (3-11); BUN 8 mg/dL (7-18); Bilirubin, Total 0.2 mg/dL (0.2-1.0); CO2 23.4 mmol/L (21.0-32.0); Chloride 104 mmol/L (98-107); Glucose 146 mg/dL (70-100); Lipase 94 U/L (73-393); Potassium 3.7 mmol/L (3.5-5.1); Sodium 139 mmol/L (136-145); Total Protein 7.5 g/dL (6.4-8.2)
[2019-04-13 21:04] LABS: Epithelial Cells Few HPF (Negative); RBC 0-2 (0-2)
[2019-04-13 21:05] LABS: Bacteria Rare HPF (Negative); C & S Indicated? No; Casts Negative LPF (Negative); Crystals Negative HPF (Negative); Mucus Heavy (Negative)
--- NOTE | 2019-04-13 22:14 | W.ED.GENAD ---
Discharge Plan Disposition Patient Disposition: HOME Condition: Good Discharge Details Chief Complaint: GenMedical Clinical Impression: Acute right otitis media, Gastroenteritis Primary Care Provider: Christiano Wright ED Provider: Douglas Gamez Home Meds and New Rx's Prescriptions: New amoxicillin 500 mg capsule 1,000 mg PO TID 7 Days Qty: 42 RF: 0 ondansetron HCl [Zofran] 4 mg tablet 4 mg PO QID PRN (Reason: nausea and vomiting) Qty: 7 RF: 0 No Action melatonin 3 mg tablet 3 mg PO HS RF: 0 fluoxetine 10 MG capsule 10 mg PO DAILY RF: 0 medroxyprogesterone [Depo-Provera] 150 MG/1 ML syringe 150 mg IM every 3 months Qty: 1 RF: 5 quetiapine 25 MG tablet 25 mg PO BID RF: 0 clonidine HCl [Catapres] 0.2 MG tablet 0.2 mg PO HS RF: 0 Discharge Instructions Instructions: Otitis Media (ED), Gastroenteritis (ED) Additional Instructions: You have otitis media, which is an infection in the right ear. Please take the antibiotic amoxicillin as directed for treatment of this. There is concern that there may have been a rupture of your tympanic membrane, please do not submerge your head underwater, or take any baths. You can take shower as long as you make sure no water gets in your ear. You also have what I suspect to be a viral gastroenteritis. Please take the Zofran as needed for nausea. Drink 10 to 12 cups of water per day. If you notice any worsening of your symptoms, or any new symptoms such as vomiting, diarrhea, fever, chills, shortness of breath, chest pain, numbness, weakness, or fainting , please return immediately to the emergency department for reevaluation. Please follow up with your primary care provider as soon as possible for reassessment and reevaluation. As always, it was a pleasure participating in your medical care today. Referrals: Christiano Wright [Primary Care Provider] - Medical Decision Making This is a very pleasant 24-year-old female who presents today for evaluation of vomiting and diarrhea for the last 2 to 3 days, in addition to mild right-sided ear pain. Physical exam demonstrates a nontender abdomen, no guarding or rebound whatsoever. The patient does not admit to any abdominal tenderness herself either. She appears slightly dehydrated with dry mucous membranes. Right tympanic membrane demonstrates notable erythema and purulence behind the TM, and an atypical linear lesion on the TM, potentially an earlier rupture of the tympanic membrane. No signs of clear rupture at this point though. No concerning red flags of meningitis, surgical abdomen, or vaginal pain. test is negative. No concerning red flags of hematochezia melena or acholic stool or hematemesis, fever, recent travel, recent antibiotics. Additionally the patient has multiple family members with near identical symptoms which are most likely the source of her current symptoms. With no abdominal tenderness no imaging is clinically indicated at this time. She has no pain at McBurney's point, no clinical evidence of gallbladder or appendiceal pathology. Laboratory work-up demonstrates a minimally elevated white count, most likely secondary to reactivity from her vomiting, no bandemia. Normal electrolytes, no anion gap, normal renal function. Normal bilirubin. Urinalysis is negative, lipase is normal. Patient was given 2 L of normal saline and her heart rate went down from 126 to a normal non-tachycardic rate. She remains afebrile, no signs of sepsis or other significant abnormality. I feel that her signs and symptoms are clinically consistent with a viral gastroenteritis, as well as right-sided otitis media. She will be given a prescription for amoxicillin. She has tolerated p.o. here. We will give her Zofran as needed for home, and recommend close follow-up. She has had no bowel movements here, and with no recent antibiotics or foreign travel I do not think that stool cultures are indicated at this time. I have extensively reviewed the treatment plan and discharge instructions with the patient and their family. I have addressed all patient concerns at this time. The patient and family was made aware of what symptoms to monitor for that would warrant a return to the emergency department. Discussed the plan with the patient and family, they demonstrate verbal understanding and agreement with our assessment and plan at this time. HPI General Date/Time Provider Initiated Documentation: 04/13/19 20:27. HPI Narrative: This is a 24-year-old female with a past medical history of obesity, hypertension, ADHD, who presents today for evaluation of nausea and vomiting as well as mild right-sided ear pain. Patient states that for the last 3 days she has had occasional vomiting occasional diarrhea, as well as mild right ear pain, and questionable drainage from the right ear. She denies any headache or neck pain. She states that she has had multiple family members with identical symptoms, and she is concerned that she got them from them. She denies any hematochezia melena or acholic stool or hematemesis. She denies any fever or chills. She denies any recent foreign travel or recent antibiotic use. She denies any recent camping trips. She denies any previous abdominal surgeries or any abdominal pain whatsoever. She denies vaginal discharge. No other complaints at this time. Related Data Home Medications Medication Instructions Recorded Confirmed clonidine HCl [Catapres] 0.2 mg PO HS 03/29/13 04/13/19 quetiapine 25 mg PO BID 03/29/13 04/13/19 fluoxetine 10 mg PO DAILY 02/24/17 04/13/19 medroxyprogesterone [Depo-Provera] 150 mg IM every 3 months #1 syringe 04/18/18 04/13/19 melatonin 3 mg tablet 3 mg PO HS 03/22/19 04/13/19 amoxicillin 1,000 mg PO TID 7 Days #42 cap 04/13/19 ondansetron HCl [Zofran] 4 mg PO QID PRN #7 tab 04/13/19 Previous Rx's Medication Instructions Recorded medroxyprogesterone [Depo-Provera] 150 mg IM every 3 months #1 syringe 04/18/18 amoxicillin 1,000 mg PO TID 7 Days #42 cap 04/13/19 ondansetron HCl [Zofran] 4 mg PO QID PRN #7 tab 04/13/19 Allergies Allergy/AdvReac Type Severity Reaction Status Date / Time paroxetine HCl [From Paxil] Allergy Intermediate Hives Verified 04/13/19 20:23 risperidone [From Risperdal] Allergy Intermediate Hives Verified 04/13/19 20:23 NSAIDS (Non-Steroidal Allergy Verified 04/13/19 20:23 Anti-Inflamma enviornmental Allergy Mild sneezing Uncoded 04/13/19 20:23 General Stated Complaint: GenMedical MARY KAY: 3 Review of Systems Review of Systems All systems reviewed & are unremarkable except as noted in HPI and below PFSH Medical History BMI 40.0-44.9, adult (Chronic) Overactive bladder (Chronic 02/09/18) Kidney disease (Chronic 09/13/17) 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 Reports not being able to shower at her current living situation. GM lives in the area. 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 Female Reproductive History Menstrual control method: progesterone injection (01/2017 Nexplanon for dysmenorrhea. Unable to rito insertion of IUD. Depo since 09/2017) History History 0 Para Hx # Term Pregnancies Multiple births Hx # Pregnancies Ectopic pregnancies AB induced Hx Number of Living Children AB spontaneous Exam Narrative Exam Narrative: 1.Const: Well-nourished, Well-developed, appearing stated age 2.Eyes: PERRL, no conjunctival injection, and symmetrical lids. 3.ENT: Atraumatic external nose and ears. Moist MM. Neck: Symmetric, trachea midline, No thyromegaly. Right tympanic membrane is notably erythematous with purulence, atypical linear component is noted however no active drainage is present. Does not appear like a normal tympanic membrane rupture. No significant otitis externa. Left tympanic membrane is normal. No evidence of significant erythema in the posterior oropharynx. No tonsillar exudates. Patient demonstrates good movement of cervical neck. There is no nuchal rigidity, no nuchal tenderness. Patient is able to flex the neck without any difficulty or significant pain. Negative Kernig's and Brudzinski sign. 4.CVS: +S1/S2, No murmurs or gallops. Peripheral pulses 2+ and equal in all extremities. Brisk capillary refill in all extremities. 5.RESP: Unlabored respiratory effort. Clear to auscultation bilaterally. No wheezes rales or rhonchi 6.GI: Soft, Nontender/Nondistended, No hepatosplenomegaly. No guarding or rebound. No pain or tenderness on palpation of the lower pelvis, no pain at McBurney's point, negative Mortensen sign. 7.MSK: Normocephalic/Atraumatic, Extremities w/o deformity or ttp No cyanosis or clubbing, Normal movement of all extremities 8.Skin: Warm, Dry. No rashes or lesions. 9.Neuro: vinyl cutter II-XII grossly intact. Sensation grossly intact, no focal neurologic deficits. 10.Psych: (AAO) x3. Appropriate mood and affect Course Vital Signs Temperature 36.4 C L 04/13/19 20:19 Pulse 129 H 04/13/19 20:19 Respiratory Rate 18 04/13/19 20:19 Blood Pressure 143/88 H 04/13/19 20:19 Pulse Oximetry 98 04/13/19 20:19 Temperature 36.4 C L 04/13/19 20:19 Temperature Source Skin 04/13/19 20:19 Pulse 129 H 04/13/19 20:19 Respiratory Rate 18 04/13/19 20:40 Respiratory Effort Non-Labored 04/13/19 20:40 Respiratory Depth Normal 04/13/19 20:40 Respiratory Pattern Normal 04/13/19 20:40 Blood Pressure 143/88 H 04/13/19 20:19 Blood Pressure Position Sitting 04/13/19 20:19 Pulse Oximetry 98 04/13/19 20:19 Oxygen Delivery Method Room Air 04/13/19 20:19 Oxygen Flow Rate 0 04/13/19 20:19 Pain Level 4 04/13/19 20:19 Lab/Test Results Lab/Test Results: Laboratory Tests Range/Units 04/13/19 04/13/19 04/13/19 20:40 20:40 20:41 WBC (4.4-10.8) k/cumm 12.51 H RBC (4.00-5.20) m/cumm 5.17 Hgb (12.0-15.5) g/dL 13.1 Hct (36.0-46.0) % 39.7 MCV (80-95) fL 76.8 L MCH (27.0-33.0) pg 25.3 L MCHC (32.0-36.0) g/dL 33.0 RDW (11.7-14.6) % 15.3 H Plt Count (130-400) x1000/uL 231 MPV (8.0-11.0) fL 13.3 H Immature Gran % 0.2 Neutrophils % 70.6 Lymphocytes % 16.9 Monocytes % 10.3 Eosinophils % 1.7 Basophils % 0.3 Absolute Neutrophils (1.2-6.7) k/cumm 8.83 H Absolute Lymphocytes (1.2-3.4) k/cumm 2.11 Absolute Monocytes (0.11-0.7) k/cumm 1.29 H Absolute Eosinophils (0.0-0.7) k/cumm 0.21 Absolute Basophils (0.0-0.2) k/cumm 0.04 Sodium (136-145) mmol/L 139 Potassium (3.5-5.1) mmol/L 3.7 Chloride (98-107) mmol/L 104 Carbon Dioxide (21.0-32.0) mmol/L 23.4 Anion Gap (3-11) mmol/L 11.6 H BUN (7-18) mg/dL 8 Creatinine (0.55-1.02) mg/dL 0.60 Estimated GFR/1.73 m2 (mL/min/1.73m2) >= 60.00 Glucose (70-100) mg/dL 146 H Calcium (8.5-10.1) mg/dL 9.0 Total Bilirubin (0.2-1.0) mg/dL 0.2 AST (15-37) U/L 13 L ALT (12-78) U/L 27 Alkaline Phosphatase (46-116) U/L 106 Total Protein (6.4-8.2) g/dL 7.5 Albumin (3.4-5.0) g/dL 3.8 Lipase (73-393) U/L 94 Urine Color (Yellow) Yellow Urine Clarity Clear Urine pH (5-8) 6.5 Ur Specific [place] (1.005-1.025) 1.025 Urine Protein (Negative) mg/dL 100 H Urine Ketones (Negative) mg/dL Trace H Urine Blood (Negative) Negative Urine Nitrite (Negative) Negative Urine Bilirubin (Negative) Negative Urine Urobilinogen (Up TO 0.2) EU/dL 0.2 Ur Leukocyte Esterase (Negative) Negative Urine RBC (0-2) 0-2 Urine WBC (0-5) HPF 3-5 Ur Epithelial Cells (Negative) HPF Few Urine Crystals (Negative) HPF Negative Urine Bacteria (Negative) HPF Rare Urine Casts (Negative) LPF Negative Urine Mucus (Negative) Heavy Urine Other (Negative) Ur Culture Indicated? No Urine Glucose (Negative) mg/dL Negative POC- Test(urine) Negative
[2019-04-13 22:18] VITALS: BP 102/72; PULSE 95; RESP 18; TEMP 36.8; O2SAT 98
== END 2019-04-13 22:28 | disposition home or self-care (01) ==
PROVIDERS: Emergency Provider Student in an Organized Health Care Education/Training Program; PCP Specialist/Technologist Athletic Trainer
DX: H66.91 Otitis media, unspecified, right ear (principal); K52.9 Noninfective gastroenteritis and colitis, unspecified; I12.9 Hypertensive chronic kidney disease with stage 1 through stage 4 chronic kidney disease, or unspecified chronic kidney disease; N18.9 Chronic kidney disease, unspecified
CPT/HCPCS: 36415; 80053; 81025; 83690; 96361; 96374; 99284; 81003; 81015; 85025; J2405

== ENCOUNTER 2019-05-05 20:15 | Emergency (ER) | payer MEDICAID, SELFPAY ==
[2019-05-05 20:18] VITALS: BP 161/114; PULSE 111; RESP 18; TEMP 36.8; O2SAT 99
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
[2019-05-05] MEDS: Acetaminophen 500 MG TAB 1000 MG PO (20:30)
--- NOTE | 2019-05-05 21:43 | DI.VRAD_ITS ---
EXAM: XR Right Hand EXAM DATE/TIME: 05/05/2019 8:26 PM CLINICAL HISTORY: 24 years old, female; Other: Pain S/P door shut on hand TECHNIQUE: Imaging protocol: XR Right hand. Views: 3 or more views. COMPARISON: No relevant prior studies available. FINDINGS: Bones/joints: No fractures. Distal radioulnar alignment is normal. No blastic or lytic lesions. No periostitis or osteolysis. Soft tissues: No gross erosive changes. Mild soft tissue swelling in the proximal fingers. No radiopaque foreign bodies. Other findings: Carpal relationships are normal. IMPRESSION: 1. No acute osseous injuries. 2. Soft tissue swelling. No foreign bodies were evident. Dictated and Authenticated by: Luis Armando Sahu MD. Ordering:FELIZ Rivera MD
[2019-05-05 21:46] VITALS: BP 148/90; PULSE 99; RESP 18; TEMP 36.5; O2SAT 98
== END 2019-05-05 21:44 | disposition home or self-care (01) ==
PROVIDERS: Emergency Provider Emergency Medicine; PCP Specialist/Technologist Athletic Trainer
DX: S60.221A Contusion of right hand, initial encounter (principal); W23.0XXA Caught, crushed, jammed, or pinched between moving objects, initial encounter; N93.9 Abnormal uterine and vaginal bleeding, unspecified; N18.1 Chronic kidney disease, stage 1; I12.9 Hypertensive chronic kidney disease with stage 1 through stage 4 chronic kidney disease, or unspecified chronic kidney disease
CPT/HCPCS: 81025; 99283; 73130

== ENCOUNTER 2019-05-17 21:07 | Emergency (ER) | payer MEDICAID, SELFPAY ==
[2019-05-17 21:14] VITALS: BP 105/83; PULSE 101; RESP 16; TEMP 36.8; O2SAT 97
--- NOTE | 2019-05-17 21:37 | ED.GENADUL_ITS ---
Discharge Plan Disposition Patient Disposition: HOME Condition: Stable Discharge Details Chief Complaint: Nausea/Vomit/Diar Clinical Impression: Nausea Primary Care Provider: Christiano Wright ED Provider: Miguel May Home Meds and New Rx's Prescriptions: New ondansetron 4 mg tablet,disintegrating 4 mg PO QID PRN (Reason: nausea and vomiting) Qty: 30 RF: 0 No Action melatonin 3 mg tablet 3 mg PO HS RF: 0 fluoxetine 10 MG capsule 10 mg PO DAILY RF: 0 medroxyprogesterone [Depo-Provera] 150 MG/1 ML syringe 150 mg IM every 3 months Qty: 1 RF: 5 quetiapine 25 MG tablet 25 mg PO BID RF: 0 clonidine HCl [Catapres] 0.2 MG tablet 0.2 mg PO HS RF: 0 Discharge Instructions Instructions: Acute Nausea and Vomiting (ED) Additional Instructions: if symptoms continue see your primary care provider if you have high fevers, severe abdominal pain or difficulty breathing return to the emergency department Medical Decision Making 24 yo female comes in with nausea and several episodes of vomit today. Denies fevers, chest pain or abdominal pain, no recent travel, new foods or meds. STates she gets frequent episodes of n/v and didn't have her nausea medicine with her. She is in no distress laughing on exam and has no abdominal tenderness and is tolerating PO now. Given symptoms have improved do not feel any workup indicated other than poc hcg. Will prescribe prn zofran and return precautions given Differential Diagnosis food illness, cyclic vomit HPI General Mode of arrival: ambulatory . Date/Time Provider Initiated Documentation: 05/17/19 21:27 . Limitations to Documentation: no limitations . Information obtained by: patient . History of Present Illness 24 year old F presents to the emergency department with the chief complaint of nausea, described as moderate, Patient started experiencing this day(s) (1) and it has been intermittent. No relieving factors improve symptom(s), No exacerbating factors reported . Patient notes no other symptoms.. Patient did receive the following treatments prior to arrival, none Related Data Home Medications Medication Instructions Recorded Confirmed clonidine HCl [Catapres] 0.2 mg PO HS 03/29/13 05/05/19 quetiapine 25 mg PO BID 03/29/13 05/05/19 fluoxetine 10 mg PO DAILY 02/24/17 05/05/19 medroxyprogesterone [Depo-Provera] 150 mg IM every 3 months #1 syringe 04/18/18 05/05/19 melatonin 3 mg tablet 3 mg PO HS 03/22/19 05/05/19 ondansetron 4 mg PO QID PRN #30 tab 05/17/19 Previous Rx's Medication Instructions Recorded medroxyprogesterone [Depo-Provera] 150 mg IM every 3 months #1 syringe 04/18/18 ondansetron 4 mg PO QID PRN #30 tab 05/17/19 Allergies Allergy/AdvReac Type Severity Reaction Status Date / Time paroxetine HCl [From Paxil] Allergy Intermediate Hives Verified 05/05/19 20:23 risperidone [From Risperdal] Allergy Intermediate Hives Verified 05/05/19 20:23 NSAIDS (Non-Steroidal Allergy Verified 05/05/19 20:23 Anti-Inflamma enviornmental Allergy Mild sneezing Uncoded 05/05/19 20:23 General Stated Complaint: Nausea/Vomit/Diar MARY KAY: 4 Review of Systems Review of Systems All systems reviewed & are unremarkable except as noted in HPI and below Constitutional Denies chills, Denies fever(s) and Denies weakness Cardiovascular Denies chest pain and Denies dyspnea Respiratory Denies dyspnea Gastrointestinal Denies abdominal pain Genitourinary Denies dysuria Musculoskeletal Denies joint swelling Integumentary/Breasts Denies rash Neurologic Denies weakness Psychiatric Denies depression [facility] Medical History ADHD (attention deficit hyperactivity disorder) (Chronic 12/31/16) BMI 40.0-44.9, adult (Chronic) Chronic kidney disease, stage 1 (Chronic 12/31/16) Depo-Provera contraceptive status (Chronic 09/13/17) Depression (Chronic 12/31/16) Generalized headaches (Chronic 12/31/16) 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 Reports not being able to shower at her current living situation. GM lives in the area. Has patient case coordinator. Female Reproductive History Menstrual control method: progesterone injection (01/2017 Nexplanon for dysmenorrhea. Unable to rito insertion of IUD. Depo since 09/2017) History History 0 Para Hx # Term Pregnancies Multiple births Hx # Pregnancies Ectopic pregnancies AB induced Hx Number of Living Children AB spontaneous Exam Const General: no acute distress Orientation: alert HENMT Head: normal to inspection Ears: external ears normal General nose exam: external nose normal Mouth: moist mucous membranes Eyes General: appearance normal, both eyes and all related structures Neck Neck: normal visual inspection Resp Effort & Inspection: normal respiratory effort and able to speak in complete sentences Cardio Rate: regular rate Skin General skin exam: no rashes or lesions noted Neuro General: alert and oriented x3 Extrem General: normal to inspection Psych Mental Status: mental status grossly normal Course Vital Signs Temperature 36.8 C 05/17/19 21:14 Pulse 101 H 05/17/19 21:14 Respiratory Rate 16 05/17/19 21:14 Blood Pressure 105/83 05/17/19 21:14 Pulse Oximetry 97 05/17/19 21:14 Temperature 36.8 C 05/17/19 21:14 Temperature Source Tympanic 05/17/19 21:14 Pulse 101 H 05/17/19 21:14 Respiratory Rate 16 05/17/19 21:14 Blood Pressure 105/83 05/17/19 21:14 Pulse Oximetry 97 05/17/19 21:14 Oxygen Delivery Method Room Air 05/17/19 21:14 Oxygen Flow Rate 0 05/17/19 21:14 Pain Level 2 05/17/19 21:14
[2019-05-17] MEDS: Ondansetron O.D.T. 4 MG TABEF PO (21:48)
[2019-05-17 23:05] VITALS: BP 105/83; PULSE 101; RESP 16; O2SAT 97
== END 2019-05-17 21:57 | disposition home or self-care (01) ==
PROVIDERS: Emergency Provider Emergency Medicine; PCP Specialist/Technologist Athletic Trainer
DX: R11.0 Nausea (principal); N18.1 Chronic kidney disease, stage 1; I12.9 Hypertensive chronic kidney disease with stage 1 through stage 4 chronic kidney disease, or unspecified chronic kidney disease
CPT/HCPCS: 81025; 99283

== ENCOUNTER 2019-06-15 21:16 | Emergency (ER) | payer MEDICAID, SELFPAY ==
--- NOTE | 2019-06-15 21:34 | NUR.NOTE ---
Nursing Note: pt developed left sided ear pain with drainage 2 days ago drainage has continued pt is here with ROBERTO worker
[2019-06-15 21:35] VITALS: BP 155/96; PULSE 70; RESP 17; TEMP 36.6; O2SAT 98
--- NOTE | 2019-06-15 22:18 | W.ED.GENAD ---
Discharge Plan Disposition Patient Disposition: HOME Condition: Stable Discharge Details Chief Complaint: EarProblem Clinical Impression: Otitis externa of left ear Primary Care Provider: Christiano Wright ED Provider: Kenton Irene Home Meds and New Rx's Prescriptions: No Action melatonin 3 mg tablet 3 mg PO HS RF: 0 fluoxetine 10 MG capsule 10 mg PO DAILY RF: 0 medroxyprogesterone [Depo-Provera] 150 mg/mL syringe 150 mg IM every 3 months Qty: 1 RF: 5 quetiapine 25 MG tablet 25 mg PO BID RF: 0 clonidine HCl [Catapres] 0.2 MG tablet 0.2 mg PO HS RF: 0 Discharge Instructions Instructions: Otitis Externa (ED) Additional Instructions: Apply provided eardrops 3 drops in left ear twice daily for 7 days. Return to the emergency department immediately for any new or significant worsening of symptoms otherwise follow-up with your primary care provider for reassessment and referral to ENT. Referrals: Christiano Wright [Primary Care Provider] - (As needed for reassessment) Discharge Data Discharge Date/Time-TO BE ENTERED AT DEPARTURE: 06/15/19 22:35 Medical Decision Making Patient presenting to the emergency department chief complaint of left ear pain. Patient states that this started 3 days ago and she noted some blood and drainage from her left ear. Patient then has noted worsening pain and discomfort to even light touch and palpation of the left ear. Physical exam of the right ears unremarkable left ear does show some tenderness to movement of the external ear and tragus ear canal does look slightly erythematous and edematous but TM appears intact but slightly dull. While I do not see any signs of TM perforation given patient's history there is slight concern for this. Otherwise I feel this is external otitis media. Patient placed upon Ciprodex given potential of TM rupture. Return precautions discussed. Patient to follow-up with primary care as needed for reassessment. Patient does state that she has had multiple episodes of TM rupture so I informed patient to follow-up with primary care for referral to ENT as needed. HPI General Mode of arrival: ambulatory. Date/Time Provider Initiated Documentation: 06/15/19 21:48. Limitations to Documentation: no limitations. Information obtained by: patient and RN notes reviewed. History of Present Illness 24 year old F presents to the emergency department with the chief complaint of Left ear pain, with intensity rated at 3. Quality is described as aching, Patient started experiencing this day(s) (2) and it has been constant. No relieving factors improve symptom(s), No exacerbating factors reported . Patient notes no other symptoms.. Patient did receive the following treatments prior to arrival, none Related Data Home Medications Medication Instructions Recorded Confirmed clonidine HCl [Catapres] 0.2 mg PO HS 03/29/13 06/15/19 quetiapine 25 mg PO BID 03/29/13 06/15/19 fluoxetine 10 mg PO DAILY 02/24/17 06/15/19 melatonin 3 mg tablet 3 mg PO HS 03/22/19 06/15/19 medroxyprogesterone 150 mg/mL 150 mg IM every 3 months #1 syringe 06/14/19 06/15/19 intramuscular syringe Previous Rx's Medication Instructions Recorded medroxyprogesterone 150 mg/mL 150 mg IM every 3 months #1 syringe 06/14/19 intramuscular syringe Allergies Allergy/AdvReac Type Severity Reaction Status Date / Time paroxetine HCl [From Paxil] Allergy Intermediate Hives Verified 05/05/19 20:23 risperidone [From Risperdal] Allergy Intermediate Hives Verified 05/05/19 20:23 NSAIDS (Non-Steroidal Allergy Verified 05/05/19 20:23 Anti-Inflamma enviornmental Allergy Mild sneezing Uncoded 05/05/19 20:23 General Stated Complaint: EarProblem MARY KAY: 4 Review of Systems Constitutional Denies chills, Denies fever(s) and Denies headache(s) ENT Reports ear discharge, Reports otalgia, Reports facial pain, Denies headache(s), Denies hearing loss, Denies nasal congestion and Denies neck pain Musculoskeletal Denies neck pain Neurologic Denies headache(s) [facility] Medical History ADHD (attention deficit hyperactivity disorder) (Chronic 12/31/16) BMI 40.0-44.9, adult (Chronic) Chronic kidney disease, stage 1 (Chronic 12/31/16) Depo-Provera contraceptive status (Chronic 09/13/17) Depression (Chronic 12/31/16) Generalized headaches (Chronic 12/31/16) 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 Reports not being able to shower at her current living situation. GM lives in the area. Has case worker. Female Reproductive History Menstrual control method: progesterone injection (01/2017 Nexplanon for dysmenorrhea. Unable to rito insertion of IUD. Depo since 09/2017) History History 0 Para Hx # Term Pregnancies Multiple births Hx # Pregnancies Ectopic pregnancies AB induced Hx Number of Living Children AB spontaneous Exam Const General: cooperative, healthy appearing, comfortable, no acute distress and not ill appearing Orientation: alert, awake and oriented x3 HENMT Head: normal to inspection and normocephalic Ears: hearing grossly normal bilaterally, external ears normal, TM's normal bilaterally, mastoids normal, no periauricular adenopathy and EAC abnormal erythema on the left, edema on the left and EAC tenderness on the left; no otic discharge General nose exam: external nose normal and nares normal Mouth: oral mucosae normal, lip normal, tongue normal, no audible dysphonia, no drooling and no trismus Throat: posterior oropharynx normal, tonsils normal and uvula midline Neck Neck: normal visual inspection, full ROM, no lymphadenopathy and no meningeal signs Course Vital Signs Temperature 36.6 C 06/15/19 21:35 Pulse 70 06/15/19 21:35 Respiratory Rate 17 06/15/19 21:35 Blood Pressure 155/96 H 06/15/19 21:35 Pulse Oximetry 98 06/15/19 21:35 Temperature 36.6 C 06/15/19 21:35 Temperature Source Skin 06/15/19 21:35 Pulse 70 06/15/19 21:35 Respiratory Rate 17 06/15/19 21:35 Respiratory Effort 06/15/19 21:37 Blood Pressure 155/96 H 06/15/19 21:35 Blood Pressure Position Supine 06/15/19 21:35 Pulse Oximetry 98 06/15/19 21:35 Oxygen Delivery Method Room Air 06/15/19 21:35 Oxygen Flow Rate 0 06/15/19 21:35 Pain Level 6 06/15/19 21:35
[2019-06-15] MEDS: Ciprofloxacin/Dexameth. 7.5 ML BTL AS (22:36)
[2019-06-15 22:37] VITALS: BP 155/96; PULSE 70; RESP 17; TEMP 36.6; O2SAT 98
== END 2019-06-15 22:35 | disposition home or self-care (01) ==
PROVIDERS: Emergency Provider Nurse Practitioner Family; PCP Specialist/Technologist Athletic Trainer
DX: H60.502 Unspecified acute noninfective otitis externa, left ear (principal)
CPT/HCPCS: 99283

== ENCOUNTER 2019-06-16 20:38 | Emergency (ER) | payer MEDICAID, SELFPAY ==
--- NOTE | 2019-06-16 20:44 | NUR.NOTE ---
Nursing Note: pt states that approximately 2 days ago she tried to kill her self by taking all the meds i could DSP of PT visited PT today PT told DSP that she had a plan to kill herself by taking all of her pills DSP took pills from PT and came to the ER. PT has history of previous suicide attempts
[2019-06-16 20:46] VITALS: BP 146/96; PULSE 98; RESP 16; TEMP 34.6; O2SAT 98
--- NOTE | 2019-06-16 20:52 | ED.GENADUL_ITS ---
Discharge Plan Disposition Patient Disposition: HOME Condition: Improving Discharge Details Chief Complaint: Suicide-Atempt Clinical Impression: Depression Primary Care Provider: Christiano Wright ED Provider: Ezequiel Hartman Home Meds and New Rx's Prescriptions: Continued melatonin 3 mg tablet 3 mg PO HS RF: 0 fluoxetine 10 MG capsule 10 mg PO DAILY RF: 0 medroxyprogesterone [Depo-Provera] 150 mg/mL syringe 150 mg IM every 3 months Qty: 1 RF: 5 quetiapine 25 MG tablet 25 mg PO BID RF: 0 clonidine HCl [Catapres] 0.2 MG tablet 0.2 mg PO HS RF: 0 Discharge Instructions Instructions: Depression (ED) Additional Instructions: Please follow-up with [facility] services and you're outpatient care team as discussed this evening. Return to the emergency department for any acute urgent concern Medical Decision Making 24-year-old female presents with her outpatient care director rn. She reported to the mental health team today that she took extra medications last night including 3 fluoxetine and 2 extra melatonin secondary to depression due to some poor relationships with other family members. States she sleeps in depressed over 7 to 10 days time and escalating pattern now with thoughts of harming herself. She denies to me any other ingestion. States she did vomit after the pills. Presents today due to the disclosure of the depression with suicidal gesture. Must exclude toxic overdose although her report is of only very minimal ingestion. Screening laboratories obtained. Medications include fluoxetine 10 mg daily, melatonin 3 m to 2 tablets at bedtime, quetiapine 25 mg twice a day, clonidine 0.2 mg 1 tablet at nighttime She arrives afebrile, anxious with a pulse in the 90s, blood pressure 140/90. Her affect is flat and depressed. Her medical screening examination is unremarkable for acute process. Screening laboratories reassuring. Patient medically stable for further evaluation by mental health screener. Review with mental health worker and the patient and her care team established a plan of care/safety. She is stable and improved, will be discharged with care team Lab Data Lab results reviewed: Yes I reviewed the patient's lab results. Laboratory Results - last 24 hr 06/16/19 06/16/19 06/16/19 21:15 21:15 21:15 WBC 10.71 RBC 5.57 H Hgb 13.9 Hct 41.9 MCV 75.2 L MCH 25.0 L MCHC 33.2 RDW 15.4 H Plt Count 276 MPV 12.8 H Immature Gran % 0.2 Neutrophils % 65.0 Lymphocytes % 23.6 Monocytes % 9.0 Eosinophils % 1.8 Basophils % 0.4 Absolute Neutrophils 6.97 H Absolute Lymphocytes 2.53 Absolute Monocytes 0.96 H Absolute Eosinophils 0.19 Absolute Basophils 0.04 Sodium 139 Potassium 3.9 Chloride 104 Carbon Dioxide 23.4 Anion Gap 11.6 H BUN 9 Creatinine 0.71 Estimated GFR/1.73 m2 >= 60.00 Glucose 102 H Calcium 9.3 Magnesium 1.9 Total Bilirubin 0.3 AST 8 L ALT 28 Alkaline Phosphatase 99 Total Protein 8.0 Albumin 3.9 Urine Color Yellow Urine Clarity Sl cloudy Urine pH 6.5 Ur Specific [place] 1.025 Urine Protein 100 H Urine Ketones Negative Urine Blood Large H Urine Nitrite Negative Urine Bilirubin Negative Urine Urobilinogen 0.2 Ur Leukocyte Esterase Negative Urine RBC >50 H Urine WBC Negative Ur Epithelial Cells Rare Urine Crystals Negative Urine Bacteria Few Urine Casts Negative Urine Mucus Trace Urine Other Negative Ur Culture Indicated? No Urine Glucose Negative Ethyl Alcohol < 3.0 HPI General Mode of arrival: ambulatory . Date/Time Provider Initiated Documentation: 06/16/19 20:47 . Limitations to Documentation: no limitations . Information obtained by: patient . History of Present Illness 24 year old F presents to the emergency department with the chief complaint of Here with skilled nursing case manager. Attempted OD with pills 2 days ago., described as mild, Quality is described as constant, Patient started experiencing this day(s) and it has been constant. No relieving factors improve symptom(s), No exacerbating factors reported . Patient notes other (vomited after pills. States that 2 nights ago she took 3 extra fluoxetine and 2 extra melatonin.). Related Data Home Medications Medication Instructions Recorded Confirmed clonidine HCl [Catapres] 0.2 mg PO HS 03/29/13 06/16/19 quetiapine 25 mg PO BID 03/29/13 06/16/19 fluoxetine 10 mg PO DAILY 02/24/17 06/16/19 melatonin 3 mg tablet 3 mg PO HS 03/22/19 06/16/19 medroxyprogesterone 150 mg/mL 150 mg IM every 3 months #1 syringe 06/14/19 06/16/19 intramuscular syringe Previous Rx's Medication Instructions Recorded medroxyprogesterone 150 mg/mL 150 mg IM every 3 months #1 syringe 06/14/19 intramuscular syringe Allergies Allergy/AdvReac Type Severity Reaction Status Date / Time paroxetine HCl [From Paxil] Allergy Intermediate Hives Verified 06/16/19 20:48 risperidone [From Risperdal] Allergy Intermediate Hives Verified 06/16/19 20:48 NSAIDS (Non-Steroidal Allergy Verified 06/16/19 20:48 Anti-Inflamma enviornmental Allergy Mild sneezing Uncoded 06/16/19 20:48 General Stated Complaint: Suicide-Atempt MARY KAY: 3 Review of Systems Review of Systems 6 systems reviewed and otherwise negative. No thoughts of harming others. [facility] Social History Smoking/Tobacco Use Status: Never Alcohol Intake: current Alcohol Intake frequency: a few times a month Drug use: Never Substance use type: does not use Sexually active: No (has never been sexually active. 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 Reports not being able to shower at her current living situation. GM lives in the area. Has case technician. Female Reproductive History Menstrual control method: progesterone injection (01/2017 Nexplanon for dysmenorrhea. Unable to rito insertion of IUD. Depo since 09/2017) History History 0 Para Hx # Term Pregnancies Multiple births Hx # Pregnancies Ectopic pregnancies AB induced Hx Number of Living Children AB spontaneous Exam Narrative Exam Narrative: GEN: awake, alert. Pleasant, tearful, well groomed, i nteractive. HEAD: Normocephalic, atraumatic ENT: Mucous membranes moist, oropharynx unremarkable, External ear exam unremarkable EYES: PERRL, EOMI NECK: Full ROM, no SAMANTHA, no menigismus CHEST/RESP: Nontender, clear to auscultation bilateral, no wheeze/rhonchi/rales CARDIOVASCULAR: RRR, no murmur, rub lis. 2+ Rad pulse bilateral ABDOMEN: Soft, nontender, no mass. +Bowel sounds EXT: Full ROM, no edema, no rash Neuro: Grossly normal neurologic exam, conversant, interactive. Psych: Speech fluent, thoughts congruent, affect depressed Course Vital Signs Temperature 34.6 C L 06/16/19 20:46 Pulse 98 H 06/16/19 20:46 Respiratory Rate 16 06/16/19 20:46 Blood Pressure 146/96 H 06/16/19 20:46 Pulse Oximetry 98 06/16/19 20:46 Temperature 34.6 C L 06/16/19 20:46 Temperature Source Skin 06/16/19 20:46 Pulse 98 H 06/16/19 20:46 Respiratory Rate 16 06/16/19 20:46 Respiratory Effort 06/16/19 20:48 Blood Pressure 146/96 H 06/16/19 20:46 Blood Pressure Position Sitting 06/16/19 20:46 Pulse Oximetry 98 06/16/19 20:46 Oxygen Delivery Method Room Air 06/16/19 20:46 Oxygen Flow Rate 0 06/16/19 20:46 Pain Level 0 06/16/19 20:46
--- NOTE | 2019-06-16 21:16 | NUR.NOTE ---
Nursing Note: report given to jamin CISNEROS
[2019-06-16 21:24] LABS: Abs Immature Grans 0.02 k/cumm (0.0-0.09); Absolute Basophil Count 0.04 k/cumm (0.0-0.2); Absolute Eosinophil Count 0.19 k/cumm (0.0-0.7); Absolute Lymphocyte Count 2.53 k/cumm (1.2-3.4); Absolute Monocyte Count 0.96 k/cumm (0.11-0.7); Absolute Neutrophil Count 6.97 k/cumm (1.2-6.7); Basophils % 0.4; Eosinophils % 1.8; HCT 41.9 % (36.0-46.0); HGB 13.9 g/dL (12.0-15.5); Immature Grans % 0.2; Lymphocytes % 23.6; Mean Corp. HGB Concentration 33.2 g/dL (32.0-36.0); Mean Corpuscular Volume 75.2 fL (80-95); Mean Platelet Volume 12.8 fL (8.0-11.0); Platelet Count 276 x1000/uL (130-400); RBC 5.57 m/cumm (4.00-5.20); RBC Distribution Width 15.4 % (11.7-14.6); White Blood Cell Count 10.71 k/cumm (4.4-10.8)
[2019-06-16 21:30] LABS: Bilirubin Negative (Negative); Blood Large (Negative); Clarity Sl Cloudy (Clear); Glucose Negative (Negative); Ketones Negative (Negative); Leukocyte Esterase Negative (Negative); Nitrite Negative (Negative); Specific Gravity 1.025 (1.005-1.025); Urobilinogen 0.2 EU/dL (Up TO 0.2); pH 6.5 (5-8)
[2019-06-16 21:36] LABS: ALT 28 U/L (12-78); AST 8 U/L (15-37); Albumin 3.9 g/dL (3.4-5.0); Alkaline Phosphatase 99 U/L (46-116); Anion Gap 11.6 mmol/L (3-11); BUN 9 mg/dL (7-18); Bilirubin, Total 0.3 mg/dL (0.2-1.0); CO2 23.4 mmol/L (21.0-32.0); CREATININE 0.71 mg/dL (0.55-1.02); Calcium 9.3 mg/dL (8.5-10.1); Chloride 104 mmol/L (98-107); Glucose 102 mg/dL (70-100); Magnesium 1.9 mg/dL (1.8-2.4); Potassium 3.9 mmol/L (3.5-5.1); Sodium 139 mmol/L (136-145)
[2019-06-16 21:37] LABS: ETHANOL BLOOD < 3.0 mg/dL (<3)
[2019-06-16 21:39] LABS: Epithelial Cells Rare HPF (Negative); Other Cells Negative (Negative); RBC >50 (0-2); WBC Negative HPF (0-5)
[2019-06-16 21:40] LABS: Bacteria Few HPF (Negative); C & S Indicated? No; Casts Negative LPF (Negative); Crystals Negative HPF (Negative); Mucus Trace (Negative)
[2019-06-16 21:46] LABS: *AMPHETAMINES SCREEN URINE Negative (Negative); *BARBITURATES SCREEN URINE Negative (Negative); *BENZODIAZEPINES SCREEN URINE Negative (Negative); Cannabinoids THC Negative (Negative); Cocaine Screen,Urine Negative (Negative); METHADONE URINE SCREEN Negative (Negative); OPIATES URINE SCREEN Negative (Negative)
[2019-06-16 21:50] LABS: Tricyclic Antidepressants Negative (Negative)
[2019-06-16 21:51] LABS: Salicylate < 2.8 mg/dL (2.8-20.0)
[2019-06-16 21:54] LABS: Acetaminophen < 2 ug/mL (10-30)
--- NOTE | 2019-06-17 00:33 | PDOC.MHCN_ITS ---
Date of service: 06/17/19 Time of Service: 00:33 Mental Health Crisis Note Presenting Issue How did you arrive at the ED and why did you come: Camryn came to the ER via her DSP worker from [facility]. She is here for an Si attempt on Tuesday. [facility] reported she was about to have another out burst tonight but I arrived and stopped her said her worker. Precipitating Factors Camryn stated that she has been SI but does not want to . She wants help and feels that Dr. Deleon is not helping her. Disposition BEHAVIOR: cooperative but her mood is increased by the lack of unity of her present team. Her worker is reading text messages from the construction administrative assistantcrew caller out loud which is not beneficial in this situation. EYE CONTACT: good MOOD: depressed AFFECT: tearful and speaking in a baby tone. APPETITE: Pt and worker report poor over the last 6 days. SLEEP(trouble falling/staying asleep: Worker and Pt report increased in the past 6 days. Plan DS construction administrative assistantcrew caller was called in and concerns about DSP's behaviors in the room with Camryn harper and how this agitated the situation with her and her mother. DS worker developed a safety plan with Camryn and her mother which M agrees too. This plan was shared with the ER doctor. Camryn was released to her mother and worker. Provisional Diagnosis depressive d/o unspecified Signature Clinician's Name/Title: Tabitha Mcknight MS Emergency Services Clinician
== END 2019-06-16 23:55 | disposition home or self-care (01) ==
PROVIDERS: Emergency Provider Emergency Medicine; PCP Specialist/Technologist Athletic Trainer
DX: F32.9 Major depressive disorder, single episode, unspecified (principal); T43.221A Poisoning by selective serotonin reuptake inhibitors, accidental (unintentional), initial encounter; Z91.5 Personal history of self-harm
CPT/HCPCS: 36415; 80053; 80307; 99285; 80320; 80329; 81003; 81015; 83735; 85025; 99284

== ENCOUNTER 2019-08-03 10:36 | Outpatient (REF) | payer MEDICAID, SELFPAY ==
[2019-08-03 19:17] LABS: HCT 40.2 % (36.0-46.0); HGB 13.1 g/dL (12.0-15.5); Mean Corp. HGB Concentration 32.6 g/dL (32.0-36.0); Mean Corpuscular Hemoglobin 24.9 pg (27.0-33.0); Mean Corpuscular Volume 76.4 fL (80-95); Mean Platelet Volume 13.3 fL (8.0-11.0); Platelet Count 280 x1000/uL (130-400); RBC 5.26 m/cumm (4.00-5.20); RBC Distribution Width 15.5 % (11.7-14.6); White Blood Cell Count 8.53 k/cumm (4.4-10.8)
[2019-08-03 19:58] LABS: ALT 36 U/L (14-59); AST 16 U/L (15-37); Albumin 3.9 g/dL (3.4-5.0); Alkaline Phosphatase 90 U/L (46-116); Anion Gap 12.2 mmol/L (3-11); BUN 8 mg/dL (7-18); Bilirubin, Total 0.4 mg/dL (0.2-1.0); CO2 21.8 mmol/L (21.0-32.0); CREATININE 0.71 mg/dL (0.55-1.02); Calcium 9.1 mg/dL (8.5-10.1); Calculated LDL 73 mg/dL; Chloride 105 mmol/L (98-107); Cholesterol 126 mg/dL (50-200); Glucose 135 mg/dL (70-100); HDL Cholesterol 33 mg/dL (40-60); Potassium 4.1 mmol/L (3.5-5.1); Sodium 139 mmol/L (136-145); TSH (W/Ref FT4) 1.38 uIU/mL (0.36-3.74); Total Protein 7.2 g/dL (6.4-8.2); Triglyceride 100 mg/dL (30-150)
[2019-08-03 20:25] LABS: Hemoglobin A1C 5.7 % (4.5-6.2)
== END 2019-08-03 10:56 ==
LOC: NCHCN 10:36
PROVIDERS: PCP Specialist/Technologist Athletic Trainer; Visit Provider Specialist/Technologist Athletic Trainer
DX: R73.03 Prediabetes (principal)
CPT/HCPCS: 80053; 80061; 85027; 83036; 84443

== ENCOUNTER 2019-08-18 19:22 | Emergency (ER) | payer MEDICAID, SELFPAY ==
[2019-08-18 19:26] VITALS: BP 143/94; PULSE 102; RESP 18; TEMP 36.7; O2SAT 97
--- NOTE | 2019-08-18 19:45 | ED.GENADUL_ITS ---
Discharge Plan Disposition Patient Disposition: HOME Condition: Stable Discharge Details Chief Complaint: EarProblem Clinical Impression: Bilateral otitis media with effusion Primary Care Provider: Christiano Wright ED Provider: Margoth Donohue Home Meds and New Rx's Prescriptions: New clindamycin HCl 150 mg capsule 450 mg PO QID 10 Days Qty: 120 RF: 0 methylprednisolone [Medrol (Ahsan)] 4 mg tablets,dose pack See Rx Instructions .ROUTE .COMPLEX Qty: 21 RF: 0 Continued melatonin 3 mg tablet 6 mg PO HS RF: 0 fluoxetine 10 MG capsule 10 mg PO DAILY RF: 0 medroxyprogesterone [Depo-Provera] 150 mg/mL syringe 150 mg IM every 3 months Qty: 1 RF: 5 quetiapine 25 MG tablet 25 mg PO BID RF: 0 clonidine HCl [Catapres] 0.2 MG tablet 0.2 mg PO HS RF: 0 Discharge Instructions Instructions: Otitis Media (ED) Additional Instructions: Take the antibiotics and steroids until finished. Alternate Tylenol and Motrin as needed and directed for pain. Follow-up with your primary care doctor next week for reevaluation. Return to the emergency department if you develop any worsening or new concerning symptoms. Discharge Data Discharge Date/Time-TO BE ENTERED AT DEPARTURE: 08/18/19 20:19 Discharge Physician: Margoth Donohue Medical Decision Making 24-year-old female with request for ear evaluation after she thought ends of Q- tips were embedded in her ears. No foreign bodies noted in her ears bilaterally. She does have bilateral ear effusions, worse on the left side. She then states she has had ear pain and cold symptoms starting recently. Discussed that she likely has an ear infection contributing to her sensation of decreased hearing and pain. She is allergic to amoxicillin. Will treat with clindamycin and give a Medrol Dosepak to help with ear inflammation to help drainage. She denies any chance of . She is on Depo injection. She is advised to follow-up with her primary care doctor and to return here with any worsening or concerning symptoms. HPI General Mode of arrival: ambulatory . Date/Time Provider Initiated Documentation: 08/18/19 19:34 . Limitations to Documentation: no limitations . Information obtained by: patient . HPI Narrative: Patient is a 24-year-old female who presents the ED for evaluation after she thought Q-tips for both cough and both of her ears. She states she was cleaning her ears earlier and now has ear pain. She states that when she looked at the Q-tips, the cotton tip was gone. She denies any fever, sore throat, runny nose, cough. Related Data Home Medications Medication Instructions Recorded Confirmed clonidine HCl [Catapres] 0.2 mg PO HS 03/29/13 08/18/19 quetiapine 25 mg PO BID 03/29/13 08/18/19 fluoxetine 10 mg PO DAILY 02/24/17 08/18/19 melatonin 3 mg tablet 6 mg PO HS 03/22/19 08/18/19 medroxyprogesterone 150 mg/mL 150 mg IM every 3 months #1 syringe 06/14/19 08/18/19 intramuscular syringe clindamycin HCl 450 mg PO QID 10 Days #120 cap 08/18/19 methylprednisolone [Medrol (Ahsan)] See Rx Instructions .ROUTE 08/18/19 .COMPLEX #21 dose pk Previous Rx's Medication Instructions Recorded medroxyprogesterone 150 mg/mL 150 mg IM every 3 months #1 syringe 06/14/19 intramuscular syringe clindamycin HCl 450 mg PO QID 10 Days #120 cap 08/18/19 methylprednisolone [Medrol (Ahsan)] See Rx Instructions .ROUTE 08/18/19 .COMPLEX #21 dose pk Allergies Allergy/AdvReac Type Severity Reaction Status Date / Time paroxetine HCl [From Paxil] Allergy Intermediate Hives Verified 08/18/19 19:30 risperidone [From Risperdal] Allergy Intermediate Hives Verified 08/18/19 19:30 amoxicillin Allergy Unverified 08/18/19 20:25 NSAIDS (Non-Steroidal Allergy Verified 08/18/19 19:30 Anti-Inflamma enviornmental Allergy Mild sneezing Uncoded 08/18/19 19:30 General Stated Complaint: EarProblem MARY KAY: 4 Review of Systems Review of Systems ROS Unobtainable: All systems reviewed & are unremarkable except as noted in HPI and below Constitutional Constitutional: Reports as per HPI, Denies chills and Denies fever(s) Eyes Eyes: Denies blurry vision ENT Ears, Nose, Mouth, and Throat: Denies dizziness, Reports otalgia, Reports nasal congestion, Denies sore throat and Denies throat swelling Cardiovascular Cardiovascular: Denies chest pain and Denies dyspnea Respiratory Respiratory: Denies cough and Denies dyspnea Gastrointestinal Gastrointestinal: Denies abdominal pain, Denies diarrhea and Denies vomiting Genitourinary Genitourinary: Denies hematuria and Denies dysuria Musculoskeletal Musculoskeletal: Denies back pain and Denies numbness Integumentary/Breasts Skin/Breast: Denies lesions and Denies rash Neurologic Neurologic: Denies dizziness, Denies focal weakness and Denies numbness Allergic/Immunologic Allergic/Immunologic: Denies throat swelling [facility] Medical History ADHD (attention deficit hyperactivity disorder) (Chronic 12/31/16) BMI 40.0-44.9, adult (Chronic) Chronic kidney disease, stage 1 (Chronic 12/31/16) from renal infection as a child elevated BP resulting Depo-Provera contraceptive status (Chronic 09/13/17) Depo-Provera contraception since 08/11/2017. Patient is using the Depo- Provera for menstrual cycle control. 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 Nexplanon in place (Resolved) 01/21/17. for control of menses. Overactive bladder (Chronic 02/09/18) Surgical History History of kidney surgery (Acute) Social History Smoking/Tobacco Use Status: Former Tobacco Use Alcohol Intake: current Alcohol Intake frequency: a few times a month Drug use: Never Substance use type: does not use Sexually active: No (has never been sexually active. ) What is your relationship status?: never Panel score (0-1 are the most socially isolated patients): 0 Do you feel safe at home: Yes Do you feel safe in your relationship?: Yes Female Reproductive History Menstrual control method: progesterone injection (01/2017 Nexplanon for dysmenorrhea. Unable to rito insertion of IUD. Depo since 09/2017) History History 0 Para Hx # Term Pregnancies Multiple births Hx # Pregnancies Ectopic pregnancies AB induced Hx Number of Living Children AB spontaneous Exam Const General: cooperative, healthy appearing and no acute distress HENMT Head: normal to inspection Ears: hearing grossly normal bilaterally, external ears normal, mastoids normal bilaterally and TM abnormal wth effusion serous bilaterally (worse on Left ), erythematous on the left and with fluid behind the TM bilaterally (worse on Left ) General nose exam: external nose normal Face and sinus: normal facial exam Mouth: oral mucosae normal Throat: posterior oropharynx normal, uvula midline and no peritonsillar masses Eyes General: appearance normal, both eyes and all related structures Neck Neck: normal visual inspection Resp Effort & Inspection: normal respiratory effort and able to speak in complete sentences Auscultation: clear to auscultation bilaterally Cardio Rate: regular rate Rhythm: regular rhythm Skin General skin exam: no rashes or lesions noted Neuro General: alert, awake and oriented x3 Motor: muscle tone normal throughout Extrem General: normal to inspection and full ROM Psych Appearance: grossly normal Affect: normal affect Course Vital Signs Vital signs: Vital Signs Temperature 98.1 F 08/18/19 19:26 Pulse 102 H 08/18/19 19:26 Respiratory Rate 18 08/18/19 19:26 Blood Pressure 143/94 H 08/18/19 19:26 Pulse Oximetry 97 08/18/19 19:26 Temperature 98.1 F 08/18/19 19:26 Temperature Source Skin 08/18/19 19:26 Pulse 102 H 08/18/19 19:26 Respiratory Rate 18 08/18/19 19:26 Respiratory Effort Non-Labored 08/18/19 19:28 Blood Pressure 143/94 H 08/18/19 19:26 Blood Pressure Position Sitting 08/18/19 19:26 Pulse Oximetry 97 08/18/19 19:26 Oxygen Delivery Method Room Air 08/18/19 19:26 Oxygen Flow Rate 0 08/18/19 19:26 Pain Level 5 08/18/19 19:26
[2019-08-18] MEDS: Clindamycin 150 MG CAP (20:16)
[2019-08-18] MEDS: Clindamycin 300 MG CAP (20:16)
== END 2019-08-18 20:19 | disposition home or self-care (01) ==
PROVIDERS: Emergency Provider Physician Assistant; PCP Specialist/Technologist Athletic Trainer
DX: H65.03 Acute serous otitis media, bilateral (principal); N18.1 Chronic kidney disease, stage 1; I12.9 Hypertensive chronic kidney disease with stage 1 through stage 4 chronic kidney disease, or unspecified chronic kidney disease; Z87.891 Personal history of nicotine dependence
CPT/HCPCS: 99283

== ENCOUNTER 2019-09-26 01:52 | Outpatient (CLI) | payer MEDICAID, SELFPAY ==
--- NOTE | 2019-09-26 09:50 | NS.NUTBLAN_ITS ---
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 She is motivated to lose weight. Shannon has made many changes to her food intake independently including cutting back on chips from 2 family bags to 1 bowl; 1 liter of Mt. Dew and Monsters to 1 cup, taking just to get rid of headaches. She is drinking water instead. She is eating leftovers for breakfast some days, sometimes a shake with protein powder, banana, frozen fruit and milk; sometimes does not eat breakfast. She had can of beans and hotdogs for lunch today; rice with teriyaki meat and stir oconnell for supper last night. Snacks on yogurt. She sleeps well 9-10 hours taking Seroquel and melatonin. She enjoys playing with her cat, skipbo and hanging with friends; shopping. She denies ongoing stress. She wants to exercise more because she knows it will help. INTERVENTION: Explained diabetes prevention program principles. She is not interested in the group at this time. Discussed ways to increase nutrient content of her food and she is agreeable. Discussed increased physical activity and she states she loves to swim and has a pass for [employer]. Reviewed chair exercises and use of the gym. PLAN: Shannon wishes to increase her vegetables daily to 2 cups; will go to [employer]; schedule given; will try dark chocolate when wanting a treat. will arrange to go to the pool 3 days a week; she will do chair exercises when watching TV She will return as she feels she needs support. face to face 34 minutes
== END 2019-09-26 02:12 ==
PROVIDERS: PCP Specialist/Technologist Athletic Trainer; Visit Provider Dietitian, Registered
DX: R73.03 Prediabetes (principal); Z71.3 Dietary counseling and surveillance
CPT/HCPCS: G0108

== ENCOUNTER 2019-10-30 15:59 | Emergency (ER) | payer MEDICAID, SELFPAY ==
[2019-10-30 16:02] VITALS: BP 147/69; PULSE 68; RESP 18; TEMP 36.3; O2SAT 98
--- NOTE | 2019-10-30 16:27 | W.ED.GENAD ---
Discharge Plan Disposition Patient Disposition: HOME Condition: Good Discharge Details Chief Complaint: DentalOral Clinical Impression: Pain, dental, Acute pain of right ear Primary Care Provider: Christiano Wright ED Provider: Douglas Gamez Home Meds and New Rx's Prescriptions: New azithromycin 250 mg tablet 250 mg PO DAILY 3 Days Qty: 3 RF: 0 No Action melatonin 3 mg tablet 6 mg PO HS RF: 0 fluoxetine 10 MG capsule 10 mg PO DAILY RF: 0 medroxyprogesterone [Depo-Provera] 150 mg/mL syringe 150 mg IM every 3 months Qty: 1 RF: 5 quetiapine 25 MG tablet 25 mg PO BID RF: 0 clonidine HCl [Catapres] 0.2 MG tablet 0.2 mg PO HS RF: 0 acetaminophen 500 mg Tablet 1,000 mg PO PRN PRNRF: 0 Discharge Instructions Instructions: Toothache (ED) Additional Instructions: At this time you do have a mild dental infection. Please take the antibiotic as directed. Please make sure you are eating it with yogurt with live culture to prevent diarrhea. Please follow-up closely with your dentist. Please continue taking 1000 mg of Tylenol every 6 hours for pain. If you notice any worsening of your symptoms, or any new symptoms such as vomiting, diarrhea, fever, chills, shortness of breath, chest pain, numbness, weakness, or fainting , please return immediately to the emergency department for reevaluation. Please follow up with your primary care provider as soon as possible for reassessment and reevaluation. As always, it was a pleasure participating in your medical care today. Referrals: Christiano Wright [Primary Care Provider] - Medical Decision Making This is a pleasant 24-year-old female who presents today for dental pain in the right as well as right ear pain. Physical exam demonstrates no evidence of ruptured tympanic membrane but there is a small amount of purulent fluid behind the right TM. No mastoid tenderness. Teeth demonstrate no periapical abscess, no drainage, but mild dental caries are present. She is scheduled to see dentist later. Signs and symptoms appear consistent with mild pulpitis, as well as mild otitis media in the right. Patient does not tolerate amoxicillin as it caused vomiting and diarrhea on her last use. She is very hesitant about the diarrhea from clindamycin. We will give azithromycin for treatment of the teeth and ears although this is not ideal I feel it is the best option given her intolerance to other antibiotics. A dental block was performed for the right lower teeth and she had complete resolution of this pain. Patient tolerated procedure well. Discussed red flags which to return. I have extensively reviewed the treatment plan and discharge instructions with the patient. I have addressed all patient concerns at this time. The patient was made aware of what symptoms to monitor for that would warrant a return to the emergency department. Discussed the plan with the patient, they demonstrate verbal understanding and agreement with our assessment and plan at this time. Time out was taken to identify the correct patient, procedure, and site. Risks and benefits were discussed with the patient and consent was obtained. Direct pressure was held over the area prior to the procedure to reduce painful injection. 5 cc?s of Lidocaine 1% and Bupivacaine 0.25% was instilled into the right posterior alveolar space with a 27 gauge needle.Complete analgesia was obtained. The patient tolerated the procedure. There were no complications. HPI General Date/Time Provider Initiated Documentation: 10/30/19 15:59. HPI Narrative: This is a 24-year-old female with a past medical history of dental caries who presents today for evaluation of dental pain on the top right and ear pain. Patient states that she has been dealing with dental caries for months, and she is scheduled to have her teeth worked on by dentist this November within the next month. Patient states though that for the last week or so she has had mild to moderate pain in her upper right and right lower molars. This morning she also developed ear pain and she felt that there was some drainage coming out of her right ear. She has taken Tylenol this is slightly improved her symptoms. She denies any fever or chills. She denies any new drainage from her teeth. She has no other complaints at this time. She denies any headache, neck pain, nausea, vomiting or diarrhea. No other complaints at this time. No other modifying factors. Related Data Home Medications Medication Instructions Recorded Confirmed clonidine HCl [Catapres] 0.2 mg PO HS 03/29/13 10/30/19 quetiapine 25 mg PO BID 03/29/13 10/30/19 fluoxetine 10 mg PO DAILY 02/24/17 10/30/19 melatonin 3 mg tablet 6 mg PO HS 03/22/19 10/30/19 medroxyprogesterone 150 mg/mL 150 mg IM every 3 months #1 syringe 06/14/19 10/30/19 intramuscular syringe acetaminophen 1,000 mg PO PRN PRN 10/30/19 10/30/19 azithromycin 250 mg PO DAILY 3 Days #3 tab 10/30/19 Previous Rx's Medication Instructions Recorded medroxyprogesterone 150 mg/mL 150 mg IM every 3 months #1 syringe 06/14/19 intramuscular syringe azithromycin 250 mg PO DAILY 3 Days #3 tab 10/30/19 Allergies Allergy/AdvReac Type Severity Reaction Status Date / Time paroxetine HCl [From Paxil] Allergy Intermediate Hives Verified 10/30/19 16:08 risperidone [From Risperdal] Allergy Intermediate Hives Verified 10/30/19 16:08 amoxicillin Allergy Nausea Unverified 10/30/19 16:11 NSAIDS (Non-Steroidal Allergy Verified 10/30/19 16:08 Anti-Inflamma enviornmental Allergy Mild sneezing Uncoded 10/30/19 16:08 General Stated Complaint: DentalOral MARY KAY: 4 Review of Systems All systems reviewed & are unremarkable except as noted in HPI and below PFSH Social History Smoking/Tobacco Use Status: Former Tobacco Use Alcohol Intake: current Alcohol Intake frequency: a few times a month Drug use: Never Substance use type: does not use Sexually active: No (has never been sexually active. ) What is your relationship status?: never Panel score (0-1 are the most socially isolated patients): 0 Do you feel safe at home: Yes Do you feel safe in your relationship?: Yes Female Reproductive History Menstrual control method: progesterone injection (01/2017 Nexplanon for dysmenorrhea. Unable to rito insertion of IUD. Depo since 09/2017) History History 0 Para Hx # Term Pregnancies Multiple births Hx # Pregnancies Ectopic pregnancies AB induced Hx Number of Living Children AB spontaneous Exam Narrative Exam Narrative: 1.Const: Well-nourished, Well-developed, appearing stated age 2.Eyes: PERRL, no conjunctival injection, and symmetrical lids. 3.ENT: Atraumatic external nose and ears. Moist MM. Neck: Symmetric, trachea midline, No thyromegaly. Patient's right ear demonstrates no evidence of draining fluid, no clear evidence of tympanic membrane rupture. Left tympanic membrane normal. There is a small amount of what appears to be purulent fluid behind the right tympanic membrane. Mild dental caries throughout, no drainage or periapical abscesses palpable. No significant cervical lymphadenopathy. Patient demonstrates good movement of cervical neck. There is no nuchal rigidity, no nuchal tenderness. Patient is able to flex the neck without any difficulty or significant pain. Negative Kernig's and Brudzinski sign. 4.CVS: +S1/S2, No murmurs or gallops. Peripheral pulses 2+ and equal in all extremities. Brisk capillary refill in all extremities. 5.RESP: Unlabored respiratory effort. Clear to auscultation bilaterally. No wheezes rales or rhonchi 6.GI: Soft, Nontender/Nondistended, No hepatosplenomegaly. No guarding or rebound. 7.MSK: Normocephalic/Atraumatic, Extremities w/o deformity or ttp No cyanosis or clubbing, Normal movement of all extremities 8.Skin: Warm, Dry. No rashes or lesions. 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 Sensation grossly intact, no focal neurologic deficits. 10.Psych: (AAO) x3. Appropriate mood and affect Course Vital Signs Vital signs: Vital Signs Temperature 36.3 C L 10/30/19 16:02 Pulse 68 10/30/19 16:02 Respiratory Rate 18 10/30/19 16:02 Blood Pressure 147/69 H 10/30/19 16:02 Pulse Oximetry 98 10/30/19 16:02 Temperature 36.3 C L 10/30/19 16:02 Temperature Source Skin 10/30/19 16:02 Pulse 68 10/30/19 16:02 Respiratory Rate 18 10/30/19 16:02 Respiratory Effort 10/30/19 16:10 Blood Pressure 147/69 H 10/30/19 16:02 Blood Pressure Position Sitting 10/30/19 16:02 Pulse Oximetry 98 10/30/19 16:02 Oxygen Delivery Method Room Air 10/30/19 16:02 Oxygen Flow Rate 0 10/30/19 16:02 Pain Level 9 10/30/19 16:11
[2019-10-30] MEDS: Azithromycin 250 MG TAB (16:32)
[2019-10-30] MEDS: Bupivacaine 0.5% Pres-Free 30 ML VIAL (16:34)
== END 2019-10-30 16:34 | disposition home or self-care (01) ==
PROVIDERS: Emergency Provider Student in an Organized Health Care Education/Training Program; PCP Specialist/Technologist Athletic Trainer
DX: R68.84 Jaw pain (principal); H66.91 Otitis media, unspecified, right ear; K04.7 Periapical abscess without sinus
CPT/HCPCS: 64402; 99283

== ENCOUNTER 2019-11-20 06:52 | Emergency (ER) | payer MEDICAID, SELFPAY ==
[2019-11-20 07:04] VITALS: BP 146/105; PULSE 145; RESP 14; TEMP 36.4; O2SAT 96
--- NOTE | 2019-11-20 07:10 | W.ED.GENAD ---
Discharge Plan Disposition Patient Disposition: HOME Condition: Improving Discharge Details Chief Complaint: Nausea/Vomit/Diar Clinical Impression: Nausea vomiting and diarrhea Primary Care Provider: Christiano Wright ED Provider: Margoth Donohue Home Meds and New Rx's Prescriptions: New ondansetron 4 mg tablet,disintegrating 4 mg PO TID PRN (Reason: nausea and vomiting) Qty: 6 RF: 0 Continued melatonin 3 mg tablet 6 mg PO HS RF: 0 medroxyprogesterone [Depo-Provera] 150 mg/mL syringe 150 mg IM every 3 months Qty: 1 RF: 5 quetiapine 25 MG tablet 25 mg PO BID RF: 0 clonidine HCl [Catapres] 0.2 MG tablet 0.2 mg PO HS RF: 0 fluoxetine 10 mg Capsule 10 mg PO DAILY RF: 0 acetaminophen 500 mg Tablet 1,000 mg PO PRN PRNRF: 0 Discharge Instructions Instructions: Acute Nausea and Vomiting (ED), Acute Diarrhea (ED) Additional Instructions: Drink plenty of fluids and get plenty of rest. Alternate tylenol and motrin as needed and directed for pain. Take the Zofran as needed and directed for nausea and vomiting. Follow-up with your primary care doctor in 1 week. Return to the emergency department with any worsening or new concerning symptoms. Discharge Data Discharge Physician: Margoth Donohue Medical Decision Making <Miguel May MD - Last Filed: 11/20/19 07:21> 24 yo female comes in with cc of n/v/d since lsat night. Denies any abdominal pain just as some intermittent mild cramping. Denies recent travel or fevers. She has no abdominal tenderness on exam. Suspect gastroenteritis vs food illness, will obtain lab work and treat with fluids and antiemetics and monitor. Given lack of abdominal pain and no tenderness on exam do not feel imaging indicated, unlikely to be sbo, appendicitis or other surgical pathology Differential Diagnosis Differential Diagnosis: gastroenteritis, food illness <Margoth Donohue DO - Last Filed: 11/20/19 12:47> 0800 --please see Dr. May's note for initial presentation, exam and plan. 24-year-old female with a history of ADHD, hypertension bipolar disorder presented for vomiting and diarrhea since last night. Denies any hematemesis or hematochezia. Denies any fever or urinary symptoms. States she ate 6 hotdog last night. Case endorsed to follow-up on labs, urinalysis and patient response to medication. She still complaining of nausea and has moderate lower abdominal tenderness. No rigidity or guarding. No rebound tenderness. Labs reviewed and note a white blood cell count of 16. Anion gap 13. As patient has abdominal tenderness, will obtain a CT abdomen and pelvis to rule out acute process. Suspect leukocytosis is an acute stress response due to symptoms. Urinalysis pending. Will give a dose of Bentyl, Compazine and additional IV fluids. 1115 --urinalysis negative. test negative. CT notes fluid-filled bowel loops consistent with diarrheal illness but no other acute abdominal findings. Patient feels much better and is requesting to go home. She was able to drink water and eat crackers. Advised to follow up with the primary care doctor for re-evaluation. Usual and customary return precautions given prior to discharge. Medical Records Medical records reviewed: Yes I reviewed the patient's medical records. Imaging Data Radiologic Study: Radiologist's impression: CT ABDOMEN PELVIS W CLINICAL HISTORY: lower abd pain, r/o acute appendicitis/sbo/colitis. TECHNIQUE: Imaging Protocol: Axial computed tomography images with coronal and sagittal reformatted images were created and reviewed CONTRAST MATERIAL: Intravenous: Omnipaque 350 Contrast volume:100 mL Oral: No COMPARISON: CT ABDOMEN PELVIS W from 02/15/2019 FINDINGS: ABDOMEN: Lung Bases: Normal where visualized. Liver: Normal density. No measurable mass. Gallbladder and biliary tract: No radiodense calculus or dilation. Pancreas: Normal density, no abnormal calcifications or inflammatory process. Spleen: Normal. Kidneys: Normal size, contour and axis. No radiodense stones or obstructive uropathy. No masses seen. Adrenal glands: No masses seen. Abdominal Aorta: Abdominal portion non-dilated. PELVIS: Bladder: Symmetric distention, no gross wall thickening. Bowel: There are fluid-filled loops of small and large bowel. This may reflect a diarrheal illness. No evidence of bowel obstruction is seen. No pericolonic inflammatory changes are seen. No findings of an acute appendicitis are present. Peritoneal cavity: No ascites, collection or mesenteric inflammatory response. Mildly enlarged lymph nodes are seen in the right lower quadrant and mesentery. Bones: Within normal limits. Reproductive organs: Within normal limits. Lymph nodes: Mildly enlarged lymph nodes seen in the right lower quadrant and mesentery. Mesenteric adenitis cannot be entirely excluded. Impression: Fluid-filled loops of small and large bowel which may be associated with a diarrheal illness. No evidence of bowel obstruction. No evidence of acute appendicitis. These findings were discussed with the emergency department on the date of the examination. Lab Data Lab results reviewed: Yes I reviewed the patient's lab results. Labs: Laboratory Tests Range/Units 11/20/19 11/20/19 11/20/19 07:20 07:20 09:19 WBC (4.4-10.8) k/cumm 16.90 H RBC (4.00-5.20) m/cumm 5.99 H Hgb (12.0-15.5) g/dL 15.1 Hct (36.0-46.0) % 45.9 MCV (80-95) fL 76.6 L MCH (27.0-33.0) pg 25.2 L MCHC (32.0-36.0) g/dL 32.9 RDW (11.7-14.6) % 15.7 H Plt Count (130-400) x1000/uL 281 MPV (8.0-11.0) fL 13.2 H Immature Gran % % 0.3 Neutrophils % 86.5 Lymphocytes % 4.8 Monocytes % 8.0 Eosinophils % 0.3 Basophils % 0.1 Absolute Neutrophils (1.2-6.7) k/cumm 14.62 H Absolute Lymphocytes (1.2-3.4) k/cumm 0.81 L Absolute Monocytes (0.11-0.7) k/cumm 1.35 H Absolute Eosinophils (0.0-0.7) k/cumm 0.05 Absolute Basophils (0.0-0.2) k/cumm 0.02 Sodium (136-145) mmol/L 143 Potassium (3.5-5.1) mmol/L 4.0 Chloride (98-107) mmol/L 106 Carbon Dioxide (21.0-32.0) mmol/L 23.1 Anion Gap (3-11) mmol/L 13.9 H BUN (7-18) mg/dL 9 Creatinine (0.55-1.02) mg/dL 0.69 Estimated GFR/1.73 m2 (mL/min/1.73m2) >= 60.00 Glucose (74-106) mg/dL 131 H Calcium (8.5-10.1) mg/dL 9.1 Magnesium (1.8-2.4) mg/dL 1.7 L Total Bilirubin (0.2-1.0) mg/dL 0.5 Conjugated Bilirubin (0.00-0.20) mg/dL 0.13 AST (15-37) U/L 14 L ALT (14-59) U/L 25 Alkaline Phosphatase (46-116) U/L 98 Total Protein (6.4-8.2) g/dL 7.8 Albumin (3.4-5.0) g/dL 3.9 Urine Color (Yellow) Yellow Urine Clarity (Clear) Clear Urine pH (5-8) 6.5 Ur Specific [place] (1.005-1.025) 1.015 Urine Protein (Negative) mg/dL Negative Urine Ketones (Negative) mg/dL Negative Urine Blood (Negative) Negative Urine Nitrite (Negative) Negative Urine Bilirubin (Negative) Negative Urine Urobilinogen (Up TO 0.2) EU/dL 0.2 Ur Leukocyte Esterase (Negative) Negative Urine Glucose (Negative) mg/dL Negative HPI <Miguel May MD - Last Filed: 11/20/19 07:21> General Mode of arrival: ambulatory. Date/Time Provider Initiated Documentation: 11/20/19 07:00. Limitations to Documentation: no limitations. Information obtained by: patient. History of Present Illness 24 year old F presents to the emergency department with the chief complaint of nausea and vomit and diarrhea, described as moderate, Patient reports no radiation. Patient started experiencing this hour(s) (8) Patient did receive the following treatments prior to arrival, none Related Data Home Medications Medication Instructions Recorded Confirmed clonidine HCl [Catapres] 0.2 mg PO HS 03/29/13 11/20/19 quetiapine 25 mg PO BID 03/29/13 11/20/19 melatonin 3 mg tablet 6 mg PO HS 03/22/19 11/20/19 medroxyprogesterone 150 mg/mL 150 mg IM every 3 months #1 syringe 06/14/19 11/20/19 intramuscular syringe acetaminophen 1,000 mg PO PRN PRN 10/30/19 11/20/19 fluoxetine 10 mg PO DAILY 11/20/19 11/20/19 ondansetron 4 mg PO TID PRN #6 tab 11/20/19 Previous Rx's Medication Instructions Recorded medroxyprogesterone 150 mg/mL 150 mg IM every 3 months #1 syringe 06/14/19 intramuscular syringe ondansetron 4 mg PO TID PRN #6 tab 11/20/19 Allergies Allergy/AdvReac Type Severity Reaction Status Date / Time paroxetine HCl [From Paxil] Allergy Intermediate Hives Verified 11/20/19 07:37 risperidone [From Risperdal] Allergy Intermediate Hives Verified 11/20/19 07:37 amoxicillin Allergy Nausea Unverified 11/20/19 07:37 NSAIDS (Non-Steroidal Allergy Verified 11/20/19 07:37 Anti-Inflamma enviornmental Allergy Mild sneezing Uncoded 11/20/19 07:37 General Stated Complaint: Nausea/Vomit/Diar MARY KAY: 3 Review of Systems <Miguel May MD - Last Filed: 11/20/19 07:21> All systems reviewed & are unremarkable except as noted in HPI and below Constitutional Constitutional: Denies chills, Denies fever(s) and Denies weakness Cardiovascular Cardiovascular: Denies dyspnea Respiratory Respiratory: Denies dyspnea Genitourinary Genitourinary: Denies dysuria Musculoskeletal Musculoskeletal: Denies joint swelling Integumentary/Breasts Skin/Breast: Denies rash Neurologic Neurologic: Denies weakness [facility] <Miguel May MD - Last Filed: 11/20/19 07:21> Social History Smoking/Tobacco Use Status: Current every day Tobacco Type: e-cigarettes Alcohol Intake: current Alcohol Intake frequency: a few times a month Drug use: Never Substance use type: does not use Sexually active: No (has never been sexually active. ) What is your relationship status?: never Panel score (0-1 are the most socially isolated patients): 0 Do you feel safe at home: Yes Do you feel safe in your relationship?: Yes Female Reproductive History Menstrual control method: progesterone injection (01/2017 Nexplanon for dysmenorrhea. Unable to rito insertion of IUD. Depo since 09/2017) History History 0 Para Hx # Term Pregnancies Multiple births Hx # Pregnancies Ectopic pregnancies AB induced Hx Number of Living Children AB spontaneous Exam <Miguel May MD - Last Filed: 11/20/19 07:21> Const General: no acute distress Orientation: alert HENMT Head: normal to inspection Ears: external ears normal General nose exam: external nose normal Mouth: moist mucous membranes Eyes General: appearance normal, both eyes and all related structures Neck Neck: normal visual inspection Resp Effort & Inspection: normal respiratory effort and able to speak in complete sentences Cardio Rate: tachycardic Skin General skin exam: no rashes or lesions noted Neuro General: alert and oriented x3 Extrem General: normal to inspection Psych Mental Status: mental status grossly normal Course <Miguel May MD - Last Filed: 11/20/19 07:21> Vital Signs Vital signs: Vital Signs Temperature 36.4 C L 11/20/19 07:04 Pulse 145 H 11/20/19 07:04 Respiratory Rate 14 11/20/19 07:04 Blood Pressure 146/105 H 11/20/19 07:04 Pulse Oximetry 96 11/20/19 07:04 Temperature 36.4 C L 11/20/19 07:04 Temperature Source Temporal Artery Scan 11/20/19 07:04 Pulse 145 H 11/20/19 07:04 Respiratory Rate 14 11/20/19 07:04 Blood Pressure 146/105 H 11/20/19 07:04 Blood Pressure Position Sitting 11/20/19 07:04 Pulse Oximetry 96 11/20/19 07:04 Oxygen Delivery Method Room Air 11/20/19 07:04 Oxygen Flow Rate 0 11/20/19 07:04 Pain Level 8 11/20/19 07:04 Sign Out <Miguel May MD - Last Filed: 11/20/19 07:21> Sign Out Data: Sign Out Comment: follow up on labs and response to fluids and zofran Last updated by Miguel May MD at 11/20/19 07:32
[2019-11-20 07:30] LABS: Abs Immature Grans 0.05 k/cumm (0.0-0.09); Absolute Basophil Count 0.02 k/cumm (0.0-0.2); Absolute Eosinophil Count 0.05 k/cumm (0.0-0.7); Absolute Lymphocyte Count 0.81 k/cumm (1.2-3.4); Absolute Monocyte Count 1.35 k/cumm (0.11-0.7); Absolute Neutrophil Count 14.62 k/cumm (1.2-6.7); Basophils % 0.1; Eosinophils % 0.3; HCT 45.9 % (36.0-46.0); HGB 15.1 g/dL (12.0-15.5); Immature Grans % 0.3 %; Lymphocytes % 4.8; Mean Corp. HGB Concentration 32.9 g/dL (32.0-36.0); Mean Corpuscular Hemoglobin 25.2 pg (27.0-33.0); Mean Corpuscular Volume 76.6 fL (80-95); Mean Platelet Volume 13.2 fL (8.0-11.0); Neutrophils % 86.5; Platelet Count 281 x1000/uL (130-400); RBC 5.99 m/cumm (4.00-5.20); RBC Distribution Width 15.7 % (11.7-14.6)
[2019-11-20] MEDS: Ondansetron 4 MG/2 ML VIAL IVP (07:31)
[2019-11-20] MEDS: Loperamide 2 MG CAP (07:32)
[2019-11-20] MEDS: Normal Saline 1,000 ML 1000 ML IV (07:32)
[2019-11-20] MEDS: Normal Saline Flush 10 ML SYR IVP (07:32)
[2019-11-20 07:44] LABS: ALT 25 U/L (14-59); AST 14 U/L (15-37); Albumin 3.9 g/dL (3.4-5.0); Alkaline Phosphatase 98 U/L (46-116); Anion Gap 13.9 mmol/L (3-11); BUN 9 mg/dL (7-18); Bilirubin, Direct 0.13 mg/dL (0.00-0.20); Bilirubin, Total 0.5 mg/dL (0.2-1.0); CO2 23.1 mmol/L (21.0-32.0); CREATININE 0.69 mg/dL (0.55-1.02); Calcium 9.1 mg/dL (8.5-10.1); Chloride 106 mmol/L (98-107); Glucose 131 mg/dL (74-106); Magnesium 1.7 mg/dL (1.8-2.4); Sodium 143 mmol/L (136-145); Total Protein 7.8 g/dL (6.4-8.2)
[2019-11-20] MEDS: Acetaminophen 500 MG TAB 1000 MG PO (07:50)
[2019-11-20] MEDS: Dicyclomine 20 MG TAB PO (09:15)
[2019-11-20] MEDS: Prochlorperazine 10 MG/2 ML VIAL IVP (09:15)
[2019-11-20] MEDS: Normal Saline 500 ML IV (09:23)
[2019-11-20 09:37] LABS: Bilirubin Negative (Negative); Blood Negative (Negative); Clarity Clear (Clear); Glucose Negative (Negative); Ketones Negative (Negative); Leukocyte Esterase Negative (Negative); Nitrite Negative (Negative); Specific Gravity 1.015 (1.005-1.025); Urobilinogen 0.2 EU/dL (Up TO 0.2); pH 6.5 (5-8)
[2019-11-20] MEDS: Omnipaque 350 MG/ML 100 ML BTL IJ (10:08)
--- NOTE | 2019-11-20 10:10 | DI.CT_ITS ---
EXAM: CT ABDOMEN PELVIS W CLINICAL HISTORY: lower abd pain, r/o acute appendicitis/sbo/colitis. TECHNIQUE: Imaging Protocol: Axial computed tomography images with coronal and sagittal reformatted images were created and reviewed CONTRAST MATERIAL: Intravenous: Omnipaque 350 Contrast volume:100 mL Oral: No COMPARISON: CT ABDOMEN PELVIS W from 02/15/2019 FINDINGS: ABDOMEN: Lung Bases: Normal where visualized. Liver: Normal density. No measurable mass. Gallbladder and biliary tract: No radiodense calculus or dilation. Pancreas: Normal density, no abnormal calcifications or inflammatory process. Spleen: Normal. Kidneys: Normal size, contour and axis. No radiodense stones or obstructive uropathy. No masses seen. Adrenal glands: No masses seen. Abdominal Aorta: Abdominal portion non-dilated. PELVIS: Bladder: Symmetric distention, no gross wall thickening. Bowel: There are fluid-filled loops of small and large bowel. This may reflect a diarrheal illness. No evidence of bowel obstruction is seen. No pericolonic inflammatory changes are seen. No finding s of an acute appendicitis are present. Peritoneal cavity: No ascites, collection or mesenteric inflammatory response. Mildly enlarged lymph nodes are seen in the right lower quadrant and mesentery. Bones: Within normal limits. Reproductive organs: Within normal limits. Lymph nodes: Mildly enlarged lymph nodes seen in the right lower quadrant and mesentery. Mesenteric adenitis cannot be entirely excluded. Impression: Fluid-filled loops of small and large bowel which may be associated with a diarrheal illness. No karoline dence of bowel obstruction. No evidence of acute appendicitis. These findings were discussed with the emergency department on the date of the examination. DATA REPOSITORY: All CT scans at this facility are submitted to the National Radiology Data Registry (NRDR) Dose Index Registry (DIR) with the [employer] (ACR). RADIATION OPTIMIZATION: All CT scans at this facility use at least one of these dose optimization te chniques: automated exposure control; mA and/or kV adjustment per patient size (includes targeted exa ms where dose is matched to clinical indication); or iterative reconstruction.
[2019-11-20 11:07] VITALS: BP 129/79; PULSE 125; RESP 20; TEMP 36.5; O2SAT 99
== END 2019-11-20 11:46 | disposition home or self-care (01) ==
PROVIDERS: Emergency Medicine; Emergency Provider Physician Assistant; PCP Specialist/Technologist Athletic Trainer
DX: R11.2 Nausea with vomiting, unspecified (principal); R19.7 Diarrhea, unspecified; R10.30 Lower abdominal pain, unspecified; I10 Essential (primary) hypertension
CPT/HCPCS: 36415; 80053; 80076; 81025; 96361; 96374; 96375; 99285; 74177; 81003; 83735; 85025; 99284; J0780; J2405; J3490

== ENCOUNTER 2019-12-03 07:30 | Emergency (ER) | payer MEDICAID, SELFPAY ==
[2019-12-03 07:33] VITALS: BP 140/80; PULSE 77; RESP 14; TEMP 36.7; O2SAT 98
--- NOTE | 2019-12-03 07:37 | ED.GENADUL_ITS ---
Discharge Plan Disposition Patient Disposition: HOME Condition: Stable Discharge Details Chief Complaint: DentalOral Clinical Impression: Dental infection Primary Care Provider: Christiano Wright ED Provider: Kindra Solis Home Meds and New Rx's Prescriptions: New penicillin V potassium 500 mg tablet 500 mg PO QID Qty: 27 RF: 0 Continued melatonin 3 mg tablet 6 mg PO HS RF: 0 medroxyprogesterone [Depo-Provera] 150 mg/mL syringe 150 mg IM every 3 months Qty: 1 RF: 5 quetiapine 25 MG tablet 25 mg PO BID RF: 0 clonidine HCl [Catapres] 0.2 MG tablet 0.2 mg PO HS RF: 0 fluoxetine 10 mg Capsule 10 mg PO DAILY RF: 0 acetaminophen 500 mg Tablet 1,000 mg PO PRN PRNRF: 0 Discharge Instructions Instructions: Penicillin V (By mouth), Dental Abscess (ED) Additional Instructions: Please return immediately to the emergency department if you develop any new or worsening symptoms, if your condition does not improve as expected, or if you become otherwise concerned. It is extremely important that you call soon as possible to make an appointment to be seen in follow-up for this visit by your primary care doctor and by your dentist. Referrals: Christiano Wright [Primary Care Provider] - Discharge Data Discharge Date/Time-TO BE ENTERED AT DEPARTURE: 12/03/19 08:16 Medical Decision Making Shannon Barajas is a 24-year-old woman with a history of hypertension, chronic kidney disease, bipolar disorder who presented to the emergency department with several months of chronic unchanged intermittent pain of the right lower rear molar. On exam patient is very well and nontoxic-appearing. Afebrile. There is erythema of the gingiva adjacent to the right lower rear molar, no fluctuance, no apparent drainage. Otherwise normal exam of the oropharynx without intraoral lesion. No facial swelling. Handling secretions without issu e. Exam/history is not consistent with apical abscess, deep space abscess, impending airway compromise, Cory's angina, sepsis, other acute emergent life- threatening process. Amoxicillin is listed in patient's allergies, patient reports that she has mild nausea with with amoxicillin, but it is manageable as long as she takes it with food. Plan for penicillin. I had a lengthy discussion with Patient regarding return to emergency department precautions, home care, and importance of outpatient follow-up with PCP and dentist, patient to call dentist for sooner appointment. Pt verbalizes understanding of the plan and is amenable. Patient discharged to home with clear plan for outpatient follow-up. All questions were answered. Disposition decision was made weighing the risks and benefits of hospitalization versus outpatient treatment, the risk for further decompensation, and the patient's wishes. Medical Records Medical records reviewed: Yes I reviewed the patient's medical records. HPI General Mode of arrival: ambulatory . Date/Time Provider Initiated Documentation: 12/03/19 07:37 . Limitations to Documentation: no limitations . Information obtained by: patient, RN notes reviewed and old records reviewed . HPI Narrative: Shannon Barajas is a 24-year-old woman with a history of chronic kidney disease, hypertension, ADHD, bipolar presenting to the emergency department with dental pain. Patient reports that she has had pain around her right lower rear molar for the past few months. Patient reports that she has an appointment to see her dentist for this, but it is not scheduled until 2 months from now. Patient reports that every few days or so she wakes up with yellow discharge on her pillow in the area of her mouth, which she attributes to her dental infection. As an aside, patient reports that she calls discharge from infections poison, and this is why she stated in triage that she woke up with poison on her pillow. Patient reports that she also has had intermittent right ear pain since onset of dental pain several months ago. Patient reports that mouth pain and ear pain are both intermittent and not severe. Patient reports that there was no changes morning from her chronic symptoms over the past few months, but she came into the emergency department to be seen for it as she has an appointment at the hospital with gynecology this morning. She denies any other pain, fevers, shortness of breath, cough, vomiting, diarrhea, rash, facial swelling, discharge from her ear, discharge from her nose, difficulty with swallowing, pain with swallowing. Has been eating and drinking as usual. No recent illness. Related Data Home Medications Medication Instructions Recorded Confirmed clonidine HCl [Catapres] 0.2 mg PO HS 03/29/13 12/03/19 quetiapine 25 mg PO BID 03/29/13 12/03/19 melatonin 3 mg tablet 6 mg PO HS 03/22/19 12/03/19 medroxyprogesterone 150 mg/mL 150 mg IM every 3 months #1 syringe 06/14/19 12/03/19 intramuscular syringe acetaminophen 1,000 mg PO PRN PRN 10/30/19 12/03/19 fluoxetine 10 mg PO DAILY 11/20/19 12/03/19 penicillin V potassium 500 mg PO QID #27 tab 12/03/19 Previous Rx's Medication Instructions Recorded medroxyprogesterone 150 mg/mL 150 mg IM every 3 months #1 syringe 06/14/19 intramuscular syringe penicillin V potassium 500 mg PO QID #27 tab 12/03/19 Allergies Allergy/AdvReac Type Severity Reaction Status Date / Time paroxetine HCl [From Paxil] Allergy Intermediate Hives Verified 12/03/19 09:26 risperidone [From Risperdal] Allergy Intermediate Hives Verified 12/03/19 09:26 NSAIDS (Non-Steroidal Allergy Verified 12/03/19 09:26 Anti-Inflamma amoxicillin AdvReac Nausea Verified 12/03/19 09:26 enviornmental Allergy Mild sneezing Uncoded 12/03/19 07:38 General Stated Complaint: Orthopedic MARY KAY: 5 Review of Systems Narrative: Constitutional: denies fevers Eyes: denies eye pain ENT: denies ear pain, sore throat, nasal discharge, ear discharge, reports dental pain Cardiovascular: denies chest pain Respiratory: denies SOB, cough GI: denies abdominal pain, vomiting, diarrhea : denies flank pain MSK: denies back pain, neck pain, arthralgias, myalgias Skin: denies rash Neuro: denies headaches, numbness, weakness [facility] Medical History ADHD (attention deficit hyperactivity disorder) (Chronic 12/31/16) BMI 40.0-44.9, adult (Chronic) Chronic kidney disease, stage 1 (Chronic 12/31/16) from renal infection as a child elevated BP resulting Depo-Provera contraceptive status (Chronic 09/13/17) Depo-Provera contraception since 08/11/2017. Patient is using the Depo- Provera for menstrual cycle control. 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 Nexplanon in place (Resolved) 01/21/17. for control of menses. Overactive bladder (Chronic 02/09/18) Surgical History History of kidney surgery (Acute) Social History Smoking/Tobacco Use Status: Former Tobacco Use Alcohol Intake: current Alcohol Intake frequency: a few times a month Drug use: Never Substance use type: does not use Sexually active: No (has never been sexually active. ) What is your relationship status?: never Panel score (0-1 are the most socially isolated patients): 0 Do you feel safe at home: Yes Do you feel safe in your relationship?: Yes Additional Social history: Female Reproductive History Menstrual control method: progesterone injection (01/2017 Nexplanon for dysmenorrhea. Unable to rito insertion of IUD. Depo since 09/2017) History History 0 Para Hx # Term Pregnancies Multiple births Hx # Pregnancies Ectopic pregnancies AB induced Hx Number of Living Children AB spontaneous Exam Narrative Exam Narrative: Constitutional: well and [id number], pleasant, conversing normally HENT: head atraumatic/normocephalic/normal inspection, mucous membranes moist, no facial edema. Mild edema and erythema of the mucosa surrounding right lower rear molar, no fluctuance. No other intraoral lesion. No erythema or edema of the posterior pharynx. No tongue elevation. No pooling of secretions, no drooling. Normal voice. Bilateral TMs normal without injection, effusion, bulging, bilateral canals normal. Eyes: conjunctiva normal, sclera normal, pupils 3mm b/l Neck: no stridor, full painless ROM, trachea midline, no lymphadenopathy Resp: normal work of breathing, LCTAB Cardio: normal rate, normal rhythm, no murmur appreciated Skin: warm, dry, normal color, no rash Neuro: alert, not altered, grossly non-focal, normal tone, normal gait Ext: Moving all extremities equally Psych: normal mood, normal affect, normal behavior Course Vital Signs Vital signs: Vital Signs Temperature 36.7 C 12/03/19 07:33 Pulse 77 12/03/19 07:33 Respiratory Rate 14 12/03/19 07:33 Blood Pressure 140/80 12/03/19 07:33 Pulse Oximetry 98 12/03/19 07:33 Temperature 36.7 C 12/03/19 07:33 Temperature Source Temporal Artery Scan 12/03/19 07:33 Pulse 77 12/03/19 07:33 Respiratory Rate 14 12/03/19 07:33 Respiratory Effort Non-Labored 12/03/19 07:35 Blood Pressure 140/80 12/03/19 07:33 Blood Pressure Position Sitting 12/03/19 07:33 Pulse Oximetry 98 12/03/19 07:33 Oxygen Delivery Method Room Air 12/03/19 07:33 Oxygen Flow Rate 0 12/03/19 07:33 Pain Level 6 12/03/19 07:33
[2019-12-03] MEDS: Penicillin V POTASSIUM 500 MG TAB PO (08:14)
== END 2019-12-03 08:16 | disposition home or self-care (01) ==
PROVIDERS: Emergency Provider Student in an Organized Health Care Education/Training Program; PCP Specialist/Technologist Athletic Trainer
DX: R68.84 Jaw pain (principal); K04.7 Periapical abscess without sinus; H92.01 Otalgia, right ear; I12.9 Hypertensive chronic kidney disease with stage 1 through stage 4 chronic kidney disease, or unspecified chronic kidney disease; N18.9 Chronic kidney disease, unspecified
CPT/HCPCS: 99283

== ENCOUNTER 2019-12-08 18:31 | Emergency (ER) | payer MEDICAID, SELFPAY ==
[2019-12-08 18:36] VITALS: BP 132/76; PULSE 107; RESP 20; TEMP 37.1; O2SAT 97
--- NOTE | 2019-12-08 18:43 | ED.GENADUL_ITS ---
Discharge Plan Disposition Patient Disposition: HOME Condition: Stable Discharge Details Chief Complaint: GI Bleed Clinical Impression: Back contusion, Contusion of buttock, Blood in stool, Fall due to ice or snow Primary Care Provider: Christiano Wright ED Provider: Douglas Gamez Home Meds and New Rx's Prescriptions: Continued melatonin 3 mg tablet 6 mg PO HS RF: 0 medroxyprogesterone [Depo-Provera] 150 mg/mL syringe 150 mg IM every 3 months Qty: 1 RF: 5 quetiapine 25 MG tablet 25 mg PO BID RF: 0 clonidine HCl [Catapres] 0.2 MG tablet 0.2 mg PO HS RF: 0 fluoxetine 10 mg Capsule 10 mg PO DAILY RF: 0 acetaminophen 500 mg Tablet 1,000 mg PO PRN PRNRF: 0 penicillin V potassium 500 mg tablet 500 mg PO QID Qty: 27 RF: 0 Discharge Instructions Instructions: Rectal Bleeding (ED), Contusion in Adults (ED) Additional Instructions: Drink plenty of fluids and get plenty of rest. Alternate tylenol and motrin as needed and directed for pain. Apply ice to the affected area several times daily for 20 minutes at a time. Follow-up with your primary care doctor in 1 week. Return to the emergency department with any worsening or new concerning symptoms. Discharge Data Discharge Date/Time-TO BE ENTERED AT DEPARTURE: 12/08/19 20:30 Discharge Physician: Margoth Donohue Medical Decision Making <Margoth Donohue DO - Last Filed: 12/09/19 09:08> 1850 -- 24yo F presents with lower back pain and blood in stool x2 since a fall this afternoon. Patient was attempting to help her sister who fell on ice and patient fell 5 times onto her buttocks and lower back on ice. She denies any head injury or an y other injury. She denies abdominal pain. She states she has had 2 bowel movement since then with brown stool mixed with bright red blood. She states she does feel she has a history of hemorrhoids. She denies any blood in urine or vaginal bleeding. No cauda equina symptoms. Patient appears nontoxic and in no acute distress. Abdomen soft nontender. Rectal exam normal without evidence of external hemorrhoids, masses. Guaiac negative. No focal deficits. Moving all extremities. As patient is hemodynamically stable on my evaluation with a negative guaiac, do not see indication for lab work in the setting of 2 blood-streaked bowel movements. Will obtain a lumbar spine and sacrum coccyx x-ray and place a Lidoderm patch and give a dose of Tylenol. Discussed with patient that her small amount of bleeding in her stool could have been due to a possible internal hemorrhoid, fissure, or small tear in capillary with fall. Urine test negative. 1999 --no obvious fracture noted on x-rays. Case endorsed to Dr. Gamez to follow-up on imaging results and final disposition. If imaging negative, plan for discharge to home. Medical Records Medical records reviewed: Yes I reviewed the patient's medical records. <Douglas Gamez, DO - Last Filed: 12/08/19 20:28> 8:25 PM Patient was signed out to me by my colleague Dr. Margoth Donohue. Please refer to her HPI, assessment plan documentation. Patient was signed out pending radiographs. Per history patient fell 3 or 4 times earlier today, had a small amount of blood in her stool did have some pain with a bowel movement at that time, since then all bleeding and pain has resolved. Rectal exam performed by Dr. Donohue showed negative for stool Hemoccult no gross red blood. Radiographs of both return negative for acute process or fracture. Repeat rectal exam and vaginal exam by myself demonstrates no evidence of gross bleeding, or other abnormality. Patient's pain is notably improved with Lidoderm patch. This time signs and symptoms are clinically consistent with contusion. Uncertain as to the reason why the patient had her initial bleeding, it may have been from small hemorrhoids or small fissure. However right now at this point patient shows no clinical evidence of acute life-threatening etiology, significant GI bleed or other abnormality. Feel that the patient be safely discharged home with close follow-up with her primary care provider. Discussed red flags for which to return. I have extensively reviewed the treatment plan and discharge instructions with the patient. I have addressed all patient concerns at this time. The patient was made aware of what symptoms to monitor for that would warrant a return to the emergency department. Discussed the plan with the patient, they demonstrate verbal understanding and agreement with our assessment and plan at this time. FINDINGS: Bones/joints: Normal. No acute fracture. Soft tissues: Normal. IMPRESSION: No acute findings. Thank you for allowing us to participate in the care of your patient. Dictated and Authenticated by: Rick Mccall DO 12/08/2019 8:09 PM Eastern Time ([place] & [place]) FINDINGS: Vertebrae: Normal. No acute fracture. Normal alignment. Soft tissues: Normal. IMPRESSION: Unremarkable radiograph. Thank you for allowing us to participate in the care of your patient. Dictated and Authenticated by: Rick Mccall DO 12/08/2019 8:10 PM Eastern Time ([place] & [place]) HPI <Margoth Donohue DO - Last Filed: 12/09/19 09:08> General Mode of arrival: ambulatory . Date/Time Provider Initiated Documentation: 12/08/19 18:32 . Limitations to Documentation: no limitations . Information obtained by: patient . History of Present Illness 24 year old F presents to the emergency department with the chief complaint of Slip on ice w/ fall onto back and buttocks 5 times; blood in stool x2 since, Patient started experiencing this hour(s) (2) and it has been constant. No relieving factors improve symptom(s), No exacerbating factors reported . Patient notes no ot her symptoms.; denies headaches, nausea/vomiting, shortness of breath, syncope and weakness. Patient did receive the following treatments prior to arrival, none Related Data Home Medications Medication Instructions Recorded Confirmed clonidine HCl [Catapres] 0.2 mg PO HS 03/29/13 12/08/19 quetiapine 25 mg PO BID 03/29/13 12/08/19 melatonin 3 mg tablet 6 mg PO HS 03/22/19 12/08/19 medroxyprogesterone 150 mg/mL 150 mg IM every 3 months #1 syringe 06/14/19 12/08/19 intramuscular syringe acetaminophen 1,000 mg PO PRN PRN 10/30/19 12/08/19 fluoxetine 10 mg PO DAILY 11/20/19 12/08/19 penicillin V potassium 500 mg PO QID #27 tab 12/03/19 12/08/19 Previous Rx's Medication Instructions Recorded medroxyprogesterone 150 mg/mL 150 mg IM every 3 months #1 syringe 06/14/19 intramuscular syringe penicillin V potassium 500 mg PO QID #27 tab 12/03/19 Allergies Allergy/AdvReac Type Severity Reaction Status Date / Time paroxetine HCl [From Paxil] Allergy Intermediate Hives Verified 12/08/19 18:41 risperidone [From Risperdal] Allergy Intermediate Hives Verified 12/08/19 18:41 NSAIDS (Non-Steroidal Allergy Verified 12/08/19 18:41 Anti-Inflamma amoxicillin AdvReac Nausea Verified 12/08/19 18:41 enviornmental Allergy Mild sneezing Uncoded 12/08/19 18:41 General Stated Complaint: GI Bleed MARY KAY: 3 Review of Systems <Margoth Donohue DO - Last Filed: 12/09/19 09:08> All systems reviewed & are unremarkable except as noted in HPI and below Constitutional Constitutional: Reports as per HPI, Denies chills and Denies fever(s) Eyes Eyes: Denies blurry vision ENT Ears, Nose, Mouth, and Throat: Denies dizziness, Denies sore throat and Denies throat swelling Cardiovascular Cardiovascular: Denies chest pain and Denies dyspnea Respiratory Respiratory: Denies cough and Denies dyspnea Gastrointestinal Gastrointestinal: Denies abdominal pain, Reports hematochezia, Denies diarrhea and Denies vomiting Genitourinary Genitourinary: Denies hematuria and Denies dysuria Musculoskeletal Musculoskeletal: Reports back pain and Denies numbness Integumentary/Breasts Skin/Breast: Denies lesions and Denies rash Neurologic Neurologic: Denies dizziness, Denies focal weakness and Denies numbness Allergic/Immunologic Allergic/Immunologic: Denies throat swelling PFSH <Margoth Donohue DO - Last Filed: 12/09/19 09:08> Medical History ADHD (attention deficit hyperactivity disorder) (Chronic 12/31/16) BMI 40.0-44.9, adult (Chronic) Chronic kidney disease, stage 1 (Chronic 12/31/16) from renal infection as a child elevated BP resulting Depo-Provera contraceptive status (Chronic 09/13/17) Depo-Provera contraception since 08/11/2017. Patient is using the Depo- Provera for menstrual cycle control. 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 Nexplanon in place (Resolved) 01/21/17. for control of menses. Overactive bladder (Chronic 02/09/18) Surgical History History of kidney surgery (Acute) Social History Smoking/Tobacco Use Status: Former Tobacco Use Alcohol Intake: current Alcohol Intake frequency: a few times a month Drug use: Never Substance use type: does not use Sexually active: No (has never been sexually active. ) What is your relationship status?: never Panel score (0-1 are the most socially isolated patients): 0 Do you feel safe at home: Yes Do you feel safe in your relationship?: Yes Additional Social history: Female Reproductive History Menstrual control method: progesterone injection (01/2017 Nexplanon for dysmenorrhea. Unable to rito insertion of IUD. Depo since 09/2017) History History 0 Para Hx # Term Pregnancies Multiple births Hx # Pregnancies Ectopic pregnancies AB induced Hx Number of Living Children AB spontaneous Exam <Margoth Donohue DO - Last Filed: 12/09/19 09:08> Const General: cooperative, healthy appearing and no acute distress HENMT Head: normal to inspection Face and sinus: normal facial exam Eyes General: appearance normal, both eyes and all related structures EOM: EOM intact bilaterally Neck Neck: normal visual inspection and No submandibular swelling Lymphatic: no lymphadenopathy noted Chest Chest: normal inspection of the chest and no tenderness Resp Effort & Inspection: normal respiratory effort and able to speak in complete sentences Auscultation: clear to auscultation bilaterally Cardio Rate: regular rate Rhythm: regular rhythm GI Inspection: normal to inspection Palpation: soft, not firm, not rigid and nontender Auscultation: normal bowel sounds Rectal Exam - female: visual inspection normal, normal sphincter tone, No fissure, heme negative stool and other (no external hemorrhoids noted) Back/Spine/Pelvis Thoracic/Lumbar Spine: thoracic and lumbar spine normal to inspection, paraspinal tenderness (R lumbar paraspinal) and lumbar spinal tenderness Pelvis: no pain with anterior-posterior compression Sacrum: tenderness midline Skin General skin exam: no rashes or lesions noted Neuro General: alert, awake and oriented x3 Cognition: normal cognition Speech: speech normal Motor: muscle tone normal throughout and strength 5/5 throughout Sensory Exam: no sensory deficits noted DTR's: Rt Patellar: 1+, Lt Patellar: 1+, Rt Ankle: 1+ and Lt Ankle: 1+ Plantar Reflexes: Equivocal: bilateral (negative babinski b/l ) Extrem General: normal to inspection, full ROM, normal capillary refill, no calf tenderness bilaterally and no edema Other: b/l DP/PT pulses intact. Psych Appearance: grossly normal Mental Status: mental status grossly normal Speech and Movement: speech and movement normal Affect: normal affect Course <Margoth Donohue DO - Last Filed: 12/09/19 09:08> Vital Signs Vital signs: Vital Signs Temperature 98.8 F 12/08/19 18:36 Pulse 107 H 12/08/19 18:36 Respiratory Rate 20 12/08/19 18:36 Blood Pressure 132/76 12/08/19 18:36 Pulse Oximetry 97 12/08/19 18:36 Temperature 98.8 F 12/08/19 18:36 Temperature Source Skin 12/08/19 18:36 Pulse 107 H 12/08/19 18:36 Respiratory Rate 20 12/08/19 18:36 Blood Pressure 132/76 12/08/19 18:36 Blood Pressure Position Sitting 12/08/19 18:36 Pulse Oximetry 97 12/08/19 18:36 Oxygen Delivery Method Room Air 12/08/19 18:36 Oxygen Flow Rate 0 12/08/19 18:36 Pain Level 8 12/08/19 18:36 Comment 12/08/19 18:36 Sign Out <Margoth Donohue DO - Last Filed: 12/09/19 09:08> Sign Out Data: Sign Out Comment: Follow-up on imaging results and final disposition. If results negative and patient feels better, okay to discharge to home. Last updated by Margoth Donohue DO at 12/08/19 19:54
[2019-12-08] MEDS: Lidocaine 5% Patch 1 PATCH TP (19:05)
[2019-12-08] MEDS: Acetaminophen 325 MG TAB 650 MG PO (19:05)
--- NOTE | 2019-12-08 19:20 | DI.RAD_ITS ---
EXAM: XR LUMBAR SPINE COMPLETE CLINICAL HISTORY: fall onto back/buttocks, r/o acute fracture. TECHNIQUE: 2D digital imaging was performed. COMPARISON: No exams were available for comparison FINDINGS: BONES: No fracture or destructive lesion. Vertebral bodies are unremarkable. No facet hypertrophy laura ntified. DISKS: Intervertebral disc spaces are maintained. ALIGNMENT: Lumbar spinal alignment is within normal limits. SOFT TISSUE: Normal. IMPRESSION: Unremarkable radiographs of the lumbar spine.
--- NOTE | 2019-12-08 19:26 | DI.RAD_ITS ---
EXAM: XR SACRUM COCCYX INDICATION: fall onto buttocks, r/o acute fracture. COMPARISON: No exams were available for comparison TECHNIQUE: 2D digital imaging was performed. FINDINGS: Overlying rectal contents limit evaluation of the sacrum and coccyx on the frontal view. No acute fr acture or dislocation is identified. Sacroiliac joints appear unremarkable. IMPRESSION: No acute abnormality.
--- NOTE | 2019-12-08 20:07 | DI.VRAD_ITS ---
PROCEDURE INFORMATION: Exam: XR Sacrum and Coccyx, 2 or More Views Exam date and time: 12/08/2019 7:33 PM Age: 24 years old Clinical indication: Injury or trauma; Initial encounter; Blunt trauma (contusions or hematomas); Patient HX: Fall onto back/buttocks; Additional info: R/O acute fracture TECHNIQUE: Imaging protocol: XR of the sacrum and coccyx, 2 or more views. Other technique: Superimposition of bowel contents limits evaluation of sacrum on the frontal views. COMPARISON: CR XR LUMBAR SPINE COMPLETE 12/08/2019 7:20 PM FINDINGS: Bones/joints: Normal. No acute fracture. Soft tissues: Normal. IMPRESSION: No acute findings. Dictated and Authenticated by: Rick Mccall MD. Ordering:KASEY Justin MD
--- NOTE | 2019-12-08 20:08 | DI.VRAD_ITS ---
PROCEDURE INFORMATION: Exam: XR Lumbosacral Spine, 4 or 5 Views Exam date and time: 12/08/2019 7:32 PM Age: 24 years old Clinical indication: Injury or trauma; Initial encounter; Blunt trauma (contusions or hematomas); Patient HX: Fall onto back/buttocks; Additional info: R/O acute fracture TECHNIQUE: Imaging protocol: XR of the lumbosacral spine, 4 or 5 views. COMPARISON: No relevant prior studies available. FINDINGS: Vertebrae: Normal. No acute fracture. Normal alignment. Soft tissues: Normal. IMPRESSION: Unremarkable radiograph. Dictated and Authenticated by: Rick Mccall MD. Ordering:KASEY Justin MD
[2019-12-08 20:26] VITALS: BP 123/63; PULSE 97; RESP 16; TEMP 36.8; O2SAT 96
== END 2019-12-08 20:30 | disposition home or self-care (01) ==
PROVIDERS: Emergency Provider Student in an Organized Health Care Education/Training Program; PCP Specialist/Technologist Athletic Trainer
DX: S30.0XXA Contusion of lower back and pelvis, initial encounter (principal); W00.0XXA Fall on same level due to ice and snow, initial encounter; R19.5 Other fecal abnormalities; I12.9 Hypertensive chronic kidney disease with stage 1 through stage 4 chronic kidney disease, or unspecified chronic kidney disease; N18.1 Chronic kidney disease, stage 1
CPT/HCPCS: 81025; 99284; 72110; 72220; 99285

== ENCOUNTER 2019-12-29 04:50 | Emergency (ER) | payer MEDICAID, SELFPAY ==
[2019-12-29 04:54] VITALS: BP 145/98; PULSE 84; RESP 18; TEMP 36.7; O2SAT 98
--- NOTE | 2019-12-29 05:03 | ED.GENADUL_ITS ---
Discharge Plan Disposition Patient Disposition: HOME Condition: Stable Discharge Details Chief Complaint: DentalOral Clinical Impression: Pain, dental Primary Care Provider: Christiano Wright ED Provider: Miguel May Home Meds and New Rx's Prescriptions: New clindamycin HCl 150 mg capsule 450 mg PO TID 7 Days Qty: 63 RF: 0 Continued melatonin 3 mg tablet 6 mg PO HS RF: 0 medroxyprogesterone [Depo-Provera] 150 mg/mL syringe 150 mg IM every 3 months Qty: 1 RF: 5 quetiapine 25 MG tablet 25 mg PO BID RF: 0 clonidine HCl [Catapres] 0.2 MG tablet 0.2 mg PO HS RF: 0 fluoxetine 10 mg Capsule 10 mg PO DAILY RF: 0 acetaminophen 500 mg Tablet 1,000 mg PO PRN PRNRF: 0 penicillin V potassium 500 mg tablet 500 mg PO QID Qty: 27 RF: 0 Discharge Instructions Instructions: Toothache (ED) Additional Instructions: follow up with your dentist in 1-2 weeks if you feel more ill, are unable to swallow liquids or have difficulty breathing return to the emergency department Medical Decision Making 24 yo female comes in with right upper dental pain for a day and has had dental infections in this area in the past. Saw her dentist earlier this week and is planning on removal of some of her teeth in the future. Denies any fevers, dy spnea or difficulty swallowing. Speaking in full sentences on exam, no submandibular swelling, no findings to suggest ludwigs, rpa, clam dredge boat captain, epiglotitis. She has dental caries or right upper mid molar and pain with percussion to this tooth without visible drinable abscess. Will tx with abx and advised f/u with dentist and return precautions given Differential Diagnosis Differential Diagnosis: dental pain, pulpitis, caries, abscess HPI General Mode of arrival: ambulatory . Date/Time Provider Initiated Documentation: 12/29/19 04:52 . Limitations to Documentation: no limitations . Information obtained by: patient . History of Present Illness 24 year old F presents to the emergency department with the chief complaint of right upper dental pain, described as moderate, Quality is described as aching, and is localized to the mouth. Patient reports no radiation. Patient started experiencing this day(s) (1) No relieving factors improve symptom(s), No exacerbating factors reported . Patient did receive the following treatments prior to arrival, none Related Data Home Medications Medication Instructions Recorded Confirmed clonidine HCl [Catapres] 0.2 mg PO HS 03/29/13 12/29/19 quetiapine 25 mg PO BID 03/29/13 12/29/19 melatonin 3 mg tablet 6 mg PO HS 03/22/19 12/29/19 medroxyprogesterone 150 mg/mL 150 mg IM every 3 months #1 syringe 06/14/19 12/29/19 intramuscular syringe acetaminophen 1,000 mg PO PRN PRN 10/30/19 12/29/19 fluoxetine 10 mg PO DAILY 11/20/19 12/29/19 penicillin V potassium 500 mg PO QID #27 tab 12/03/19 12/29/19 clindamycin HCl 450 mg PO TID 7 Days #63 cap 12/29/19 Previous Rx's Medication Instructions Recorded medroxyprogesterone 150 mg/mL 150 mg IM every 3 months #1 syringe 06/14/19 intramuscular syringe penicillin V potassium 500 mg PO QID #27 tab 12/03/19 clindamycin HCl 450 mg PO TID 7 Days #63 cap 12/29/19 Allergies Allergy/AdvReac Type Severity Reaction Status Date / Time paroxetine HCl [From Paxil] Allergy Intermediate Hives Verified 12/29/19 04:58 risperidone [From Risperdal] Allergy Intermediate Hives Verified 12/29/19 04:58 NSAIDS (Non-Steroidal Allergy Verified 12/29/19 04:58 Anti-Inflamma amoxicillin AdvReac Nausea Verified 12/29/19 04:58 enviornmental Allergy Mild sneezing Uncoded 12/29/19 04:58 General Stated Complaint: DentalOral MARY KAY: 4 Review of Systems All systems reviewed & are unremarkable except as noted in HPI and below Constitutional Constitutional: Denies chills, Denies fever(s) and Denies weakness ENT Ears, Nose, Mouth, and Throat: Denies change in voice Cardiovascular Cardiovascular: Denies chest pain and Denies dyspnea Respiratory Respiratory: Denies cough and Denies dyspnea Gastrointestinal Gastrointestinal: Denies abdominal pain, Denies nausea and Denies vomiting Neurologic Neurologic: Denies weakness Psychiatric Psychiatric: Denies depression PFSH Social History Smoking/Tobacco Use Status: Current-Occasional Tobacco Type: cigarettes Alcohol Intake: former Drug use: Never Substance use type: does not use Sexually active: No (has never been sexually active. ) What is your relationship status?: never Panel score (0-1 are the most socially isolated patients): 0 Do you feel safe at home: Yes Do you feel safe in your relationship?: Yes Additional Social history: Female Reproductive History Menstrual control method: progesterone injection (01/2017 Nexplanon for dysmenorrhea. Unable to rito insertion of IUD. Depo since 09/2017) History History 0 Para Hx # Term Pregnancies Multiple births Hx # Pregnancies Ectopic pregnancies AB induced Hx Number of Living Children AB spontaneous Exam Const General: no acute distress Orientation: alert HENMT Head: normal to inspection Ears: external ears normal General nose exam: external nose normal Mouth: moist mucous membranes Eyes General: appearance normal, both eyes and all related structures Neck Neck: normal visual inspection Resp Effort & Inspection: normal respiratory effort and able to speak in complete sentences Cardio Rate: regular rate Skin General skin exam: no rashes or lesions noted Neuro General: alert and oriented x3 Extrem General: normal to inspection Psych Mental Status: mental status grossly normal Course Vital Signs Vital signs: Vital Signs Temperature 36.7 C 12/29/19 04:54 Pulse 84 12/29/19 04:54 Respiratory Rate 18 12/29/19 04:54 Blood Pressure 145/98 H 12/29/19 04:54 Pulse Oximetry 98 12/29/19 04:54 Temperature 36.7 C 12/29/19 04:54 Temperature Source Temporal Artery Scan 12/29/19 04:54 Pulse 84 12/29/19 04:54 Respiratory Rate 18 12/29/19 04:54 Respiratory Effort Non-Labored 12/29/19 04:54 Blood Pressure 145/98 H 12/29/19 04:54 Blood Pressure Position Sitting 12/29/19 04:54 Pulse Oximetry 98 12/29/19 04:54 Pain Level 10 12/29/19 04:54
[2019-12-29] MEDS: Clindamycin 150 MG CAP 450 MG PO (05:07)
== END 2019-12-29 05:10 | disposition home or self-care (01) ==
LOC: ER 05:05
PROVIDERS: Emergency Provider Emergency Medicine; PCP Specialist/Technologist Athletic Trainer
DX: R68.84 Jaw pain (principal); K08.89 Other specified disorders of teeth and supporting structures
CPT/HCPCS: 99283

== ENCOUNTER 2020-01-05 19:13 | Emergency (ER) | payer MEDICAID, SELFPAY ==
[2020-01-05 19:16] VITALS: BP 188/79; PULSE 135; RESP 16; TEMP 37.4; O2SAT 97
[2020-01-05 19:45] VITALS: BP 138/95; PULSE 83
[2020-01-05 19:58] LABS: Bilirubin Negative (Negative); Blood Negative (Negative); Clarity Clear (Clear); Glucose Negative (Negative); Ketones Negative (Negative); Leukocyte Esterase Negative (Negative); Nitrite Negative (Negative); Specific Gravity >= 1.030 (1.005-1.025); Urobilinogen 0.2 EU/dL (Up TO 0.2); pH 6.5 (5-8)
[2020-01-05 20:04] LABS: Bacteria Negative HPF (Negative); C & S Indicated? No; Casts Negative LPF (Negative); Crystals Negative HPF (Negative); Epithelial Cells Few HPF (Negative); Mucus Negative (Negative); Other Cells Negative (Negative); RBC Negative HPF (0-2)
[2020-01-05 20:09] LABS: Abs Immature Grans 0.01 k/cumm (0.0-0.09); Absolute Basophil Count 0.03 k/cumm (0.0-0.2); Absolute Eosinophil Count 0.15 k/cumm (0.0-0.7); Absolute Lymphocyte Count 1.97 k/cumm (1.2-3.4); Absolute Monocyte Count 0.94 k/cumm (0.11-0.7); Basophils % 0.3; Eosinophils % 1.5; HCT 39.7 % (36.0-46.0); HGB 13.3 g/dL (12.0-15.5); Immature Grans % 0.1 %; Lymphocytes % 19.9; Mean Corp. HGB Concentration 33.5 g/dL (32.0-36.0); Mean Corpuscular Hemoglobin 25.7 pg (27.0-33.0); Mean Corpuscular Volume 76.6 fL (80-95); Mean Platelet Volume 12.9 fL (8.0-11.0); Monocytes % 9.5; Neutrophils % 68.7; Platelet Count 246 x1000/uL (130-400); RBC 5.18 m/cumm (4.00-5.20); RBC Distribution Width 15.5 % (11.7-14.6)
[2020-01-05] MEDS: Normal Saline 1,000 ML 1000 ML IV (20:18)
[2020-01-05] MEDS: Ondansetron 4 MG/2 ML VIAL IVP (20:25)
[2020-01-05] MEDS: ACETAMINOPHEN 1,000 MG/100 ML BTL 400 MG IVPB (20:25)
[2020-01-05 20:38] LABS: ALT 25 U/L (14-59); AST 14 U/L (15-37); Alkaline Phosphatase 93 U/L (46-116); Anion Gap 11.2 mmol/L (3-11); BUN 11 mg/dL (7-18); Bilirubin, Total 0.2 mg/dL (0.2-1.0); CO2 23.8 mmol/L (21.0-32.0); CREATININE 0.72 mg/dL (0.55-1.02); Calcium 8.8 mg/dL (8.5-10.1); Chloride 107 mmol/L (98-107); Glucose 97 mg/dL (74-106); Potassium 3.9 mmol/L (3.5-5.1); Sodium 142 mmol/L (136-145); Total Protein 7.6 g/dL (6.4-8.2)
--- NOTE | 2020-01-05 21:25 | ED.GENADUL_ITS ---
Discharge Plan Disposition Patient Disposition: HOME Condition: Stable Discharge Details Chief Complaint: Nausea/Vomit/Diar Clinical Impression: Pain, dental, Nausea & vomiting Primary Care Provider: Christiano Wright ED Provider: Roseann Belcher Home Meds and New Rx's Prescriptions: New ondansetron HCl [Zofran] 4 mg tablet 4 mg PO Q8H PRN (Reason: nausea and vomiting) Qty: 7 RF: 0 penicillin V potassium 500 mg tablet 500 mg PO QID Qty: 40 RF: 0 Continued melatonin 3 mg tablet 6 mg PO HS RF: 0 medroxyprogesterone [Depo-Provera] 150 mg/mL syringe 150 mg IM every 3 months Qty: 1 RF: 5 quetiapine 25 MG tablet 25 mg PO BID RF: 0 clonidine HCl [Catapres] 0.2 MG tablet 0.2 mg PO HS RF: 0 fluoxetine 10 mg Capsule 10 mg PO DAILY RF: 0 acetaminophen 500 mg Tablet 1,000 mg PO PRN PRNRF: 0 Discontinued penicillin V potassium 500 mg tablet 500 mg PO QID Qty: 27 RF: 0 Discharge Instructions Instructions: Acute Nausea and Vomiting (ED), Toothache (ED) Additional Instructions: Drink plenty of fluids. Rest activities as tolerated. Warm salt water rinses after each eating or drinking. Ice to the cheek for pain. Tylenol for discomfort if needed. Use antibiotic as prescribed. Follow-up with dentist promptly. Use nausea medication if needed for symptomatic relief. Return for any abdominal pain, chest pain persistent or increase in vomiting, signs of dehydration or alarming symptoms sooner if needed. Make recheck with primary care doctor this week Medical Decision Making This is a 24-year-old patient presenting to the emergency room for complaints of nausea and vomiting which she attributes to pain. Patient reports vomiting x5 today, a single episode of bilious vomitus was blood-tinged. Patient denies any associated chest pain, difficulty breathing shortness of breath or wheezing. No abdominal pain at this time. Denies associated diarrhea. Patient is concerned that she has had onset of dental pain for the last 24 hours. Patient reports she did attempt to take Tylenol at home but did vomit her Tylenol at approximately 3:00. Patient does report normal urinary output. Patient reports she was recently seen for dental pain and prescribed clindamycin but did not take the clindamycin due to GI side effect specifically diarrhea after her initial dose. Patient did see dentist and they recommended multiple dental extractions. Patient presents mildly tachycardic and hypertensive. Patient is requesting IV fluids and nausea medication. Labs obtained. Patient does not appear toxic at this time. Patient is in no distress. IV fluids and labs obtained. Patient provided Zofran as well as offer may have for comfort. Patient pain is mildly improved. Patient's nausea is entirely resolved. Reviewed labs which reveal no associated leukocytosis, abnormal kidney function or electrolyte abnormalities. Patient's urinalysis unremarkable for infection. Patient does report persistent pain therefore was offered Toradol. Medication list does report allergy however patient does take Aleve when needed and denies any obvious allergic reaction to NSAIDs. Patient provided initial dose of penicillin. Again amoxicillin is noted on her allergy list although she does report she can take penicillin without difficulty and has tolerated in the past. Patient feels appropriate and comfortable discharge home at this time. The patient was stable and requested discharge. Prior to discharge, my usual and customary return precautions were reviewed with the patient - this included follow-up instructions and reasons to return to the Emergency Department if conditions worsens, does not improve as expected, or other new concerns arise. HPI General Date/Time Provider Initiated Documentation: 01/05/20 19:21 . HPI Narrative: This is a 24-year-old patient presenting to the emergency room for complaints of 5 episodes of nausea which began today. Patient reports she does have a history of vomiting in the past. Patient attributes her vomiting to dental pain. Patient reports she does have a history in a pattern of vomiting when in pain. Patient reports onset of dental pain yesterday. Patient reports she did see her dentist recently who recommended 5 teeth to be extracted. Patient reports no facial swelling. Patient reports right posterior dental pain. Patient denies ear pain. Denies sore throat. Denies headache or dizziness. Patient does report bilious vomiting with one episode of blood-tinged. Patient denies chest pain or abdominal pain. Denies back pain. Denies difficulty beating shortness of breath or wheezing. Patient reports she was recently started on clindamycin antibiotics she was able to tolerate only a single dose before starting to have diarrhea. Patient discontinued the medication and did not begin a new one. Patient is concerned as dental pain has worsened the last 24 hours and she feels she likely has a dental infection which she has had 11 the past. Patient denies recent dental injury or trauma. Related Data Home Medications Medication Instructions Recorded Confirmed clonidine HCl [Catapres] 0.2 mg PO HS 03/29/13 01/05/20 quetiapine 25 mg PO BID 03/29/13 01/05/20 melatonin 3 mg tablet 6 mg PO HS 03/22/19 01/05/20 medroxyprogesterone 150 mg/mL 150 mg IM every 3 months #1 syringe 06/14/19 01/05/20 intramuscular syringe acetaminophen 1,000 mg PO PRN PRN 10/30/19 01/05/20 fluoxetine 10 mg PO DAILY 11/20/19 01/05/20 ondansetron HCl [Zofran] 4 mg PO Q8H PRN #7 tab 01/05/20 penicillin V potassium 500 mg PO QID #40 tab 01/05/20 Previous Rx's Medication Instructions Recorded medroxyprogesterone 150 mg/mL 150 mg IM every 3 months #1 syringe 06/14/19 intramuscular syringe ondansetron HCl [Zofran] 4 mg PO Q8H PRN #7 tab 01/05/20 penicillin V potassium 500 mg PO QID #40 tab 01/05/20 Allergies Allergy/AdvReac Type Severity Reaction Status Date / Time paroxetine HCl [From Paxil] Allergy Intermediate Hives Verified 01/05/20 19:19 risperidone [From Risperdal] Allergy Intermediate Hives Verified 01/05/20 19:19 NSAIDS (Non-Steroidal Allergy Verified 01/05/20 19:19 Anti-Inflamma amoxicillin AdvReac Nausea Verified 01/05/20 19:19 enviornmental Allergy Mild sneezing Uncoded 01/05/20 19:19 General Stated Complaint: Nausea/Vomit/Diar MARY KAY: 4 Review of Systems All systems reviewed & are unremarkable except as noted in HPI and below Constitutional Constitutional: Denies chills, Denies fatigue, Denies fever(s), Denies headache(s) and Denies malaise ENT Ears, Nose, Mouth, and Throat: Reports dental pain, Denies otalgia, Denies headache(s), Denies nasal congestion, Denies sinus pain, Denies sinus pressure and Denies sore throat Cardiovascular Cardiovascular: Denies chest pain, Denies chest pain at rest, Denies chest pain with activity, Denies rapid heart rate, Denies dyspnea and Denies dyspnea on exertion Respiratory Respiratory: Denies cough, Denies pain on inspiration, Denies pain with cough, Denies dyspnea and Denies dyspnea on exertion Gastrointestinal Gastrointestinal: Denies abdominal pain, Denies diarrhea, Reports nausea and Reports vomiting Genitourinary Genitourinary: Denies hematuria and Denies dysuria Neurologic Neurologic: Denies headache(s) Endocrine Endocrine: Denies fatigue [facility] Medical History ADHD (attention deficit hyperactivity disorder) (Chronic 12/31/16) BMI 40.0-44.9, adult (Chronic) Chronic kidney disease, stage 1 (Chronic 12/31/16) from renal infection as a child elevated BP resulting Depo-Provera contraceptive status (Chronic 09/13/17) Depo-Provera contraception since 08/11/2017. Patient is using the Depo- Provera for menstrual cycle control. 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 Nexplanon in place (Resolved) 01/21/17. for control of menses. Overactive bladder (Chronic 02/09/18) Social History Smoking/Tobacco Use Status: Current-Occasional Tobacco Type: cigarettes Alcohol Intake: former Drug use: Never Substance use type: does not use Sexually active: No (has never been sexually active. ) What is your relationship status?: never Panel score (0-1 are the most socially isolated patients): 0 Do you feel safe at home: Yes Do you feel safe in your relationship?: Yes Additional Social history: Female Reproductive History Menstrual control method: progesterone injection (01/2017 Nexplanon for dysmenorrhea. Unable to rito insertion of IUD. Depo since 09/2017) History History 0 Para Hx # Term Pregnancies Multiple births Hx # Pregnancies Ectopic pregnancies AB induced Hx Number of Living Children AB spontaneous Exam Narrative Exam Narrative: CONST: Patient in no acute distress. Well hydrated. Alert and oriented. HENMT: Head nomocephalic, normal to inspection. Atraumatic. Hearing grossly normal. TMs appear normal bilaterally. No facial swelling. No obvious dental caries or abscess however does have palpable tenderness in the right lower posterior jaw. Patient has no TMJ tenderness. No pharyngeal erythema. No tonsillar exudate or swelling. EYES: General normal appearance. Alignment normal. Eyelids normal. Conjunctiva normal. NECK: Normal visual inspection. FROM. Trachea midline. No Midline tenderness. No cervical lymphadenopathy CHEST: Normal insepection of the chest. RESP: Normal respiratory effort. Speaking full sentences. No cough. No audible wheezing. No retractions. CARDIO: No JVD. No murmur, regular rate and rhythm GI: Abdomen is soft, nontender. No peritoneal signs, rebound or guarding. Back: No CVA tenderness bilaterally SKIN: Normal. Dry. No rashes. Course Vital Signs Vital signs: Vital Signs Temperature 37.4 C 01/05/20 19:16 Pulse 135 H 01/05/20 19:16 Respiratory Rate 16 01/05/20 19:16 Blood Pressure 188/79 H 01/05/20 19:16 Pulse Oximetry 97 01/05/20 19:16 Temperature 37.4 C 01/05/20 19:16 Temperature Source Skin 01/05/20 19:16 Pulse 83 01/05/20 19:45 Respiratory Rate 16 01/05/20 19:16 Respiratory Effort 01/05/20 19:46 Blood Pressure 138/95 H 01/05/20 19:45 Blood Pressure Position Sitting 01/05/20 19:16 Pulse Oximetry 97 01/05/20 19:16 Oxygen Delivery Method Room Air 01/05/20 19:16 Oxygen Flow Rate 0 01/05/20 19:16 Pain Level 6 01/05/20 21:07 Lab/Test Results Lab/Test Results: Laboratory Tests Range/Units 01/05/20 01/05/20 01/05/20 19:50 20:05 20:05 WBC (4.4-10.8) k/cumm 9.90 RBC (4.00-5.20) m/cumm 5.18 Hgb (12.0-15.5) g/dL 13.3 Hct (36.0-46.0) % 39.7 MCV (80-95) fL 76.6 L MCH (27.0-33.0) pg 25.7 L MCHC (32.0-36.0) g/dL 33.5 RDW (11.7-14.6) % 15.5 H Plt Count (130-400) x1000/uL 246 MPV (8.0-11.0) fL 12.9 H Immature Gran % % 0.1 Neutrophils % 68.7 Lymphocytes % 19.9 Monocytes % 9.5 Eosinophils % 1.5 Basophils % 0.3 Absolute Neutrophils (1.2-6.7) k/cumm 6.80 H Absolute Lymphocytes (1.2-3.4) k/cumm 1.97 Absolute Monocytes (0.11-0.7) k/cumm 0.94 H Absolute Eosinophils (0.0-0.7) k/cumm 0.15 Absolute Basophils (0.0-0.2) k/cumm 0.03 Sodium (136-145) mmol/L 142 Potassium (3.5-5.1) mmol/L 3.9 Chloride (98-107) mmol/L 107 Carbon Dioxide (21.0-32.0) mmol/L 23.8 Anion Gap (3-11) mmol/L 11.2 H BUN (7-18) mg/dL 11 Creatinine (0.55-1.02) mg/dL 0.72 Estimated GFR/1.73 m2 (mL/min/1.73m2) >= 60.00 Glucose (74-106) mg/dL 97 Calcium (8.5-10.1) mg/dL 8.8 Total Bilirubin (0.2-1.0) mg/dL 0.2 AST (15-37) U/L 14 L ALT (14-59) U/L 25 Alkaline Phosphatase (46-116) U/L 93 Total Protein (6.4-8.2) g/dL 7.6 Albumin (3.4-5.0) g/dL 4.0 Urine Color (Yellow) Yellow Urine Clarity (Clear) Clear Urine pH (5-8) 6.5 Ur Specific [place] (1.005-1.025) >= 1.030 H Urine Protein (Negative) mg/dL 30 H Urine Ketones (Negative) mg/dL Negative Urine Blood (Negative) Negative Urine Nitrite (Negative) Negative Urine Bilirubin (Negative) Negative Urine Urobilinogen (Up TO 0.2) EU/dL 0.2 Ur Leukocyte Esterase (Negative) Negative Urine RBC (0-2) HPF Negative Urine WBC (0-5) HPF 3-5 Ur Epithelial Cells (Negative) HPF Few Urine Crystals (Negative) HPF Negative Urine Bacteria (Negative) HPF Negative Urine Casts (Negative) LPF Negative Urine Mucus (Negative) Negative Urine Other (Negative) Negative Ur Culture Indicated? No Urine Glucose (Negative) mg/dL Negative POC- Test(urine) Negative
[2020-01-05] MEDS: Penicillin V POTASSIUM 500 MG TAB PO (21:26)
[2020-01-05] MEDS: Ketorolac 15 MG/ML VIAL IVP (21:27)
== END 2020-01-05 21:30 | disposition home or self-care (01) ==
PROVIDERS: Emergency Provider Physician Assistant; PCP Specialist/Technologist Athletic Trainer
DX: K08.89 Other specified disorders of teeth and supporting structures (principal); R11.2 Nausea with vomiting, unspecified; I12.9 Hypertensive chronic kidney disease with stage 1 through stage 4 chronic kidney disease, or unspecified chronic kidney disease; N18.1 Chronic kidney disease, stage 1
CPT/HCPCS: 80053; 81025; 96361; 96365; 96375; 99284; 81003; 81015; 85025; J0131; J1885; J2405

== ENCOUNTER 2020-02-12 15:52 | Outpatient (REF) | payer MEDICAID, SELFPAY ==
[2020-02-14 18:37] LABS: SARS-CoV-2 RNA Undetected (Undetected); SARS-CoV-2 Specimen Source Nasopharynx
== END 2020-02-12 16:12 ==
LOC: LBN 15:52
PROVIDERS: PCP Specialist/Technologist Athletic Trainer; Visit Provider Nurse Practitioner Family
DX: J06.9 Acute upper respiratory infection, unspecified (principal)
CPT/HCPCS: U0003

== ENCOUNTER 2020-08-06 20:09 | Emergency (ER) | payer MEDICAID, SELFPAY ==
--- NOTE | 2020-08-06 20:13 | ED.GENADUL_ITS ---
Discharge Plan Disposition Patient Disposition: HOME Condition: Good Discharge Details Clinical Impression: Pain, dental Primary Care Provider: Randy Willingham ED Provider: Anita Kamara Home Meds and New Rx's Prescriptions: Continued melatonin 3 mg tablet 6 mg PO HS RF: 0 fluticasone propionate 50 mcg/actuation blister with device 1 inh IH BID RF: 0 calcium chew PO DAILY RF: 0 albuterol sulfate 90 mcg/actuation HFA aerosol inhaler 1 inh IH ONCE RF: 0 medroxyprogesterone [Depo-Provera] 150 mg/mL syringe 150 mg IM every 3 months Qty: 1 RF: 5 omeprazole 20 mg capsule,delayed release(DR/EC) 20 mg PO DAILY RF: 0 loratadine 10 mg capsule 10 mg PO DAILY RF: 0 quetiapine 25 MG tablet 25 mg PO BID RF: 0 clonidine HCl [Catapres] 0.2 MG tablet 0.2 mg PO HS RF: 0 fluoxetine 10 mg Capsule 10 mg PO DAILY RF: 0 acetaminophen 500 mg Tablet 1,000 mg PO PRN PRNRF: 0 Discharge Instructions Instructions: Toothache (ED) Additional Instructions: Please stop taking the [place]. You may use 1000 mg of Tylenol up to 4 times a day to help with pain. Please continue with popsicles. Please call your dentist tomorrow if you have any continued discomfort. Please encourage water intake. If you develop fever/chills, increased pain, increased swelling or other new/worsening symptoms please seek care urgently once again. Referrals: Randy Willingham PA [Primary Care Provider] - Medical Decision Making Patient is a pleasant 25-year-old female presenting today with chief complaint of dental pain. She reports that she had dental extraction on Tuesday, [place] teeth extraction as well as PEG tube. Was prescribed [place] for pain which she states makes me paralyzed. Is not tolerating the [place] well. States the pain is persisted. Ate eggs earlier today and felt that some of this may have gotten stuck. Then noted a yellow discharge but is not sure where this is coming from. She denies any fevers or chills. Has been able to hydrate. On exam, patient's speaking clearly. She is some swelling bilaterally around the areas of her extracted wisdom teeth. However, I do not see any evidence of infection. See discharge. No focal area to suggest abscess. No swelling of the tongue. No swelling in the posterior oropharynx. No stridor. Lungs are clear. Patient appears nontoxic. Will give Tylenol and popsicle. As the patient is having an adverse reaction to the [place], I asked that she not use this any further. Patient feels much improved after Tylenol and popsicle. Requesting discharge. Patient is with her cone worker. She is able to bring her home. Return precautions were given. I did advise follow-up with dentist. She will not take [place] any longer. Dosing of Tylenol was discussed. She reports she is feeling much improved. All of her questions and concerns were addressed and she is agreement this plan. [facility] General Mode of arrival: ambulatory . Date/Time Provider Initiated Documentation: 08/06/20 20:13 . Limitations to Documentation: no limitations . Information obtained by: patient, family (cone worker) and RN notes reviewed . History of Present Illness 25 year old F presents to the emergency department with the chief complaint of pain at sights of dental extractions, described as severe, Quality is described as aching, and is localized to the mouth. Patient reports no radiation. Patient started experiencing this day(s) (2) and it has been constant. No relieving factors improve symptom(s), Eating worsens symptoms . Patient notes no other symptoms.. Patient did receive the following treatments prior to arrival, other (norco) Related Data Home Medications Medication Instructions Recorded Confirmed clonidine HCl [Catapres] 0.2 mg PO HS 03/29/13 05/13/20 quetiapine 25 mg PO BID 03/29/13 05/13/20 melatonin 3 mg tablet 6 mg PO HS 03/22/19 05/13/20 acetaminophen 1,000 mg PO PRN PRN 10/30/19 05/13/20 fluoxetine 10 mg PO DAILY 11/20/19 05/13/20 albuterol sulfate 90 mcg/actuation 1 inh IH ONCE 05/13/20 05/13/20 aerosol inhaler calcium chew PO DAILY 05/13/20 fluticasone propionate 50 1 inh IH BID 05/13/20 05/13/20 mcg/actuation blister powder for inhalation medroxyprogesterone 150 mg/mL 150 mg IM every 3 months #1 syringe 09/22/20 09/22/20 intramuscular syringe loratadine 10 mg capsule 10 mg PO DAILY 07/31/20 omeprazole 20 mg capsule,delayed 20 mg PO DAILY 07/31/20 release Previous Rx's Medication Instructions Recorded medroxyprogesterone 150 mg/mL 150 mg IM every 3 months #1 syringe 07/29/20 intramuscular syringe Allergies Allergy/AdvReac Type Severity Reaction Status Date / Time paroxetine HCl [From Paxil] Allergy Intermediate Hives Verified 08/06/20 20:19 risperidone [From Risperdal] Allergy Intermediate Hives Verified 08/06/20 20:19 NSAIDS (Non-Steroidal Allergy Verified 08/06/20 20:19 Anti-Inflamma amoxicillin AdvReac Nausea Verified 08/06/20 20:19 enviornmental Allergy Mild sneezing Uncoded 08/06/20 20:19 General MARY KAY: 4 Review of Systems Constitutional Constitutional: Reports as per HPI, Denies chills, Denies fatigue, Denies fever(s), Denies headache(s) and Denies poor appetite Eyes Eyes: Denies change in vision and Denies irritation ENT Ears, Nose, Mouth, and Throat: Reports as per HPI, Reports dental pain, Denies dysphagia, Denies dizziness, Denies dry mouth, Denies ear discharge, Denies otalgia, Reports facial pain, Denies headache(s), Denies hoarseness, Denies lip swelling, Denies nasal congestion, Denies odynophagia and Denies sore throat Cardiovascular Cardiovascular: Reports as per HPI and Denies chest pain Respiratory Respiratory: Reports as per HPI and Denies cough Gastrointestinal Gastrointestinal: Reports as per HPI, Denies dysphagia, Denies nausea, Denies odynophagia and Denies vomiting Integumentary/Breasts Skin/Breast: Reports as per HPI, Denies erythema, Denies rash and Denies skin pain Neurologic Neurologic: Reports as per HPI, Denies dizziness and Denies headache(s) Endocrine Endocrine: Denies fatigue Allergic/Immunologic Allergic/Immunologic: Denies lip swelling [facility] Medical History ADHD (attention deficit hyperactivity disorder) (12/31/16) BMI 40.0-44.9, adult Chronic kidney disease, stage 1 (12/31/16) from renal infection as a child elevated BP resulting Depo-Provera contraceptive status (09/13/17) Depo-Provera contraception since 08/11/2017. Patient is using the Depo- Provera for menstrual cycle control. 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 Nexplanon in place 01/21/17. for control of menses. Overactive bladder (02/09/18) Surgical History History of kidney surgery Social History Smoking/Tobacco Use Status: Former Tobacco Use Alcohol Intake: former Drug use: Never Substance use type: does not use Sexually active: No (has never been sexually active. ) What is your relationship status?: never Panel score (0-1 are the most socially isolated patients): 0 Do you feel safe at home: Yes Do you feel safe in your relationship?: Yes Female Reproductive History Menstrual control method: progesterone injection (01/2017 Nexplanon for dysmenorrhea. Unable to rito insertion of IUD. Depo since 09/2017) History History 0 Para Hx # Term Pregnancies Multiple births Hx # Pregnancies Ectopic pregnancies AB induced Hx Number of Living Children AB spontaneous Exam Const General: cooperative, healthy appearing, comfortable, no acute distress, well developed and well groomed Nutritional Appearance: well nourished and overweight Orientation: alert and awake [facility] Head: normal to inspection, normocephalic and atraumatic Ears: hearing grossly normal bilaterally, external ears normal and TM's normal bilaterally General nose exam: external nose normal and nares normal Face and sinus: normal facial exam, sinuses nontender and face symmetric Mouth: oral mucosae normal, lip normal, tongue normal, no audible dysphonia, no drooling, no muffled voice, normal tongue, no trismus and No restricted motion (with prompting is able to open well) Teeth and gingiva: dentition normal (surgical sites have surround swelling, equal bilaterally. No discharge) Throat: posterior oropharynx normal, tonsils normal and uvula midline Eyes General: appearance normal, both eyes and all related structures Neck Neck: normal visual inspection, full ROM, no lymphadenopathy, supple and no anterior neck swelling Resp Effort & Inspection: normal respiratory effort, able to speak in complete sentences and no respiratory distress Auscultation: clear to auscultation bilaterally, no rales, no rhonchi and no wheezes Cardio Rate: regular rate Rhythm: regular rhythm Heart Sounds: S1 normal and S2 normal Skin General skin exam: no rashes or lesions noted Trauma: no lacerations or abrasions Neuro General: patient alert and patient awake Cognition: normal cognition Speech: speech normal Gait: normal gait Psych Appearance: grossly normal and well kempt Mental Status: mental status grossly normal Speech and Movement: speech and movement normal
[2020-08-06 20:15] VITALS: BP 155/98; PULSE 95; RESP 16; TEMP 36.6; O2SAT 99
[2020-08-06] MEDS: Acetaminophen 500 MG TAB 1000 MG PO (20:39)
--- NOTE | 2020-08-06 20:39 | NUR.NOTE ---
Nursing Note: Popsicle provided to patient.
--- NOTE | 2020-08-06 21:00 | NUR.NOTE ---
Nursing Note: Patient reports improvement after tylenol and Popsicle. HARRISON Kamara updated.
== END 2020-08-06 21:17 | disposition home or self-care (01) ==
PROVIDERS: Emergency Provider Physician Assistant; PCP Physician Assistant Medical
DX: R68.84 Jaw pain (principal); K08.89 Other specified disorders of teeth and supporting structures; G89.18 Other acute postprocedural pain; T88.7XXA Unspecified adverse effect of drug or medicament, initial encounter; T40.2X5A Adverse effect of other opioids, initial encounter; I12.9 Hypertensive chronic kidney disease with stage 1 through stage 4 chronic kidney disease, or unspecified chronic kidney disease; N18.1 Chronic kidney disease, stage 1
CPT/HCPCS: 99282; 99283

== ENCOUNTER 2020-10-24 16:35 | Outpatient (REF) | payer MEDICAID, SELFPAY ==
--- NOTE | 2020-10-24 16:00 | PAPFT_PTH ---
PATIENT: Shannon Barajas LOC: [facility] U#:[id number] AGE/SX: 25/F ROOM: RE10/24/[address]: ABIOLA Dumont : 1995 BED: DIS: 10/24/2020 SPEC #: [id number] RECD: 10/24/20 16:49 STATUS: PRACHI REAdolfo #: [id number] KENROY: 10/24/20 16:[address]: Beth Powers DEPT: [facility] Cytology RECD BY: Leonor Alonso ENTERED: 10/24/20 16:49 SP TYPE: PAPFT MARGARITA DR: Randy Willingham Tissues: 1 - CX/ENDOCX FOR PAP SMEARS Procedures: PAP THIN PREP/UVM Screening Comments: [id number]
== END 2020-10-24 16:55 ==
LOC: LBN 16:35
PROVIDERS: PCP Physician Assistant Medical; Visit Provider Nurse Practitioner Family
DX: Z12.4 Encounter for screening for malignant neoplasm of cervix (principal)
CPT/HCPCS: 88142

== ENCOUNTER 2020-12-29 20:57 | Outpatient (REF) | payer MEDICAID, SELFPAY ==
[2020-12-29 19:42] LABS: Hemoglobin A1C 5.7 % (<5.7)
[2020-12-29 19:59] LABS: Ferritin 79 ng/mL (8-252)
[2020-12-30 14:11] LABS: Anion Gap 11.8 mmol/L (3-11); BUN 9 mg/dL (7-18); CO2 23.2 mmol/L (21.0-32.0); CREATININE 0.6 mg/dL (0.55-1.02); Calcium 9.3 mg/dL (8.5-10.1); Chloride 105 mmol/L (98-107); Glucose 93 mg/dL (74-106); Potassium 4.4 mmol/L (3.5-5.1); Sodium 140 mmol/L (136-145)
== END 2020-12-29 20:58 | disposition home or self-care (01) ==
LOC: NCHCN 20:57
PROVIDERS: PCP Physician Assistant Medical; Visit Provider Nurse Practitioner Family
DX: R71.8 Other abnormality of red blood cells (principal); R73.03 Prediabetes; R03.0 Elevated blood-pressure reading, without diagnosis of hypertension; D59.3 Hemolytic-uremic syndrome
CPT/HCPCS: 80048; 82728; 83036

== ENCOUNTER 2021-01-29 01:49 | Outpatient (CLI) | payer MEDICAID, SELFPAY ==
--- NOTE | 2021-01-29 | DI.US_ITS ---
EXAM: US BREAST LT COMPLETE CLINICAL HISTORY: LT BREAST PAIN, N64.4. TECHNIQUE: Complete ultrasound examination left breast was performed including all 4 quadrants as we ll as the retroareolar region. Left axilla was also scanned. COMPARISON: None. This 26-year-old patient feels some occasional pain in the upper outer quadrant. She points to the 1 o'clock position. She denies feeling a lump. FINDINGS: No evidence of solid or significant cystic lesions seen in all 4 quadrants nor in the retroareolar re gion. No focal ultrasound findings in her area of pain at the 1 o'clock position. There is no adenopathy in the left axilla. IMPRESSION: Negative left breast ultrasound. Appropriate follow-up is repeat ultrasound in 3 months time if symptoms persist, earlier if clinicall y indicated.. BI-RADS Category 1 - Negative Breast Density - Category C - Heterogeneously dense Breast density Category C or D implies that the patient has dense breast tissue. Dense breast tissue can make it harder to find cancer on a mammogram. Dense breast tissue is also associated with an incr eased risk of breast cancer. This information about the result of the mammogram report was provided to the patient to raise their awareness. Use this report when you speak with the patient about their risks for breast cancer, which includes their family history. At that time, you may recommend additional screening tests (Ultrasoun d or MRI) as these tests may add significant information. A negative radiographic report should not delay biopsy if a dominant or clinically suspicious mass is present. Up to ten percent of cancers are not identified on mammography. A negative report may reinforce clinical impression. Adenosis and dense breasts may obscure an underlying neoplasm. False positive reports average 6 to 10%. Patient will receive a letter notifying them of these results.
== END 2021-01-29 02:09 ==
PROVIDERS: PCP Physician Assistant Medical; Visit Provider Nurse Practitioner Family
DX: N64.4 Mastodynia (principal)
CPT/HCPCS: 76642

== ENCOUNTER 2021-08-17 21:39 | Emergency (ER) | payer MEDICAID, SELFPAY ==
[2021-08-17 21:44] VITALS: BP 145/89; PULSE 116; RESP 18; TEMP 36.6; O2SAT 98
--- NOTE | 2021-08-17 21:58 | ED.GENADUL_ITS ---
Discharge Plan Disposition Patient Disposition: HOME Condition: Stable Discharge Details Clinical Impression: Pain, dental, Dysuria, Vaginal discharge Primary Care Provider: Randy Willingham ED Provider: Anita Kamara Home Meds and New Rx's Prescriptions: Continued melatonin 3 mg tablet 6 mg PO HS RF: 0 fluticasone propionate 50 mcg/actuation blister with device 1 inh IH BID RF: 0 albuterol sulfate 90 mcg/actuation HFA aerosol inhaler 1 inh IH ONCE RF: 0 medroxyprogesterone [Depo-Provera] 150 mg/mL syringe 150 mg IM every 3 months Qty: 1 RF: 5 omeprazole 20 mg capsule,delayed release(DR/EC) 20 mg PO DAILY RF: 0 loratadine 10 mg capsule 10 mg PO DAILY RF: 0 labetalol 100 mg tablet 50 mg PO BID RF: 0 medroxyprogesterone [Depo-Provera] 150 mg/mL syringe 150 mg IM ONCE Qty: 1 RF: 0 quetiapine 25 MG tablet 25 mg PO BID RF: 0 clonidine HCl [Catapres] 0.2 MG tablet 0.2 mg PO HS RF: 0 fluoxetine 10 mg Capsule 20 mg PO DAILY RF: 0 acetaminophen 500 mg Tablet 1,000 mg PO PRN PRNRF: 0 Discharge Instructions Instructions: Dysuria (ED), Toothache (ED) Additional Instructions: Your dental exam does not suggest infection. Your pain is likely associated with your cavities and known dental issues. Please call dentist if you get on a cancellation have follow-up with possible. You may use Tylenol as needed for discomfort. May also use Orajel. Regards to your urinary discomfort, your urine does not suggest infection. Your sugar was normal here today. As you are having vaginal symptoms as well, this may be the source of your urinary changes. You declined vaginal exam here today. However, I would like for [facility] and continued management of your vaginal discharge and pain with urination If you develop fever/chills, increased pain, swelling or other new/worsening symptoms please seek care urgently once again Referrals: Kay Wilkes MD [ [facility] STAFF PHYSICIAN] - Randy Willingham PA [Primary Care Provider] - Discharge Data Discharge Date/Time-TO BE ENTERED AT DEPARTURE: 08/17/21 22:41 Medical Decision Making Patient is a pleasant 26-year-old female presenting today with chief complaint of 3 weeks of dental pain and 2 days of increased urinary urgency as well as vaginal discharge. She denies any fevers or chills. States that she has known poor dentition and is scheduled to have surgical intervention in October to the affected pain teeth. Pain has been consistent for the past 3 weeks. Has not had any swelling. No drainage. On exam, patient appears nontoxic. She does appear anxious. She does have poor dentition with multiple caries noted. However, I do not note any swelling, erythema. No significant pain with palpation. Not appreciate any lymphadenopathy. No sublingual swelling. Posterior oropharynx is normal. I am not the evidence to suggest dental infection. Rather, I am questioning if this is associated with her known dental carry that she is scheduled to have operated on soon. I did advise that she contact her dentist and see if she has been on a waiting list for any potential cancellations as she has had difficulty getting appointment sooner. Regarding her urinary symptoms he was referred to the, dysuria for the past 24 hours. No CVA tenderness. States that she has had a malodorous yellow vaginal discharge. She denies being sexually active. States that she has been drinking a large amount of water and peeing frequently. Glucose was obtained 120. Her urine presents for potential dehydration with elevated gravity and trace ketones. No significant normalities to suggest infection. We discussed her vaginal discharge and itching. We discussed vaginal exam and patient would prefer to hold off. States that she has a large amount of anxiety around this and would prefer to [facility] with [facility]. She will call tomorrow to schedule follow-up appointment. Her abdomen is benign Advised Tylenol as needed for discomfort. Encourage hydration. Return precautions were discussed. She will come 1 as well as well as her dentist to schedule follow-up appointment. All her questions and concerns were addressed and she is in agreement with this plan. HPI General Mode of arrival: ambulatory . Date/Time Provider Initiated Documentation: 08/17/21 21:58 . Limitations to Documentation: no limitations . Information obtained by: patient and RN notes reviewed . History of Present Illness 26 year old F presents to the emergency department with the chief complaint of left sided dental pain, dysuria , described as moderate and similar to prior episodes, Quality is described as aching, and is localized to the mouth and genitals (discomfort only with urination, has burning sensation with urination). Patient reports no radiation. Patient started experiencing this week(s) (dental pain began 3 weeks ago) and it has been constant. No relieving factors improve symptom(s), No exacerbating factors reported . Patient notes denies diaphoresis, fever/chills, headaches, loss of appetite and nausea/vomiting. Patient did receive the following treatments prior to arrival, none Related Data Home Medications Medication Instructions Recorded Confirmed clonidine HCl [Catapres] 0.2 mg PO HS 03/29/13 08/17/21 quetiapine 25 mg PO BID 03/29/13 08/17/21 melatonin 3 mg tablet 6 mg PO HS 03/22/19 08/17/21 acetaminophen 1,000 mg PO PRN PRN 10/30/19 08/17/21 fluoxetine 20 mg PO DAILY 11/20/19 08/17/21 albuterol sulfate 90 mcg/actuation 1 inh IH ONCE 05/13/20 08/17/21 aerosol inhaler fluticasone propionate 50 1 inh IH BID 05/13/20 08/17/21 mcg/actuation blister powder for inhalation medroxyprogesterone 150 mg/mL 150 mg IM every 3 months #1 syringe 07/29/20 08/17/21 intramuscular syringe loratadine 10 mg capsule 10 mg PO DAILY 07/31/20 08/17/21 omeprazole 20 mg capsule,delayed 20 mg PO DAILY 07/31/20 08/17/21 release labetalol 100 mg tablet 50 mg PO BID tab 01/16/21 08/17/21 Previous Rx's Medication Instructions Recorded medroxyprogesterone 150 mg/mL 150 mg IM every 3 months #1 syringe 07/29/20 intramuscular syringe Allergies Allergy/AdvReac Type Severity Reaction Status Date / Time paroxetine HCl [From Paxil] Allergy Intermediate Hives Verified 08/17/21 21:47 risperidone [From Risperdal] Allergy Intermediate Hives Verified 08/17/21 21:47 NSAIDS (Non-Steroidal Allergy Verified 08/17/21 21:47 Anti-Inflamma amoxicillin AdvReac Nausea Verified 08/17/21 21:47 enviornmental Allergy Mild sneezing Uncoded 08/17/21 21:47 General Stated Complaint: Urinary MARY KAY: 3 Review of Systems Constitutional Constitutional: Reports as per HPI, Denies chills, Denies fever(s), Denies headache(s) and Denies poor appetite Eyes Eyes: Denies change in vision and Denies irritation ENT Ears, Nose, Mouth, and Throat: Reports as per HPI, Reports dental pain, Denies dysphagia, Denies otalgia, Denies headache(s), Denies lip swelling, Denies nasal congestion, Denies odynophagia and Denies sore throat Respiratory Respiratory: Reports as per HPI and Denies cough Gastrointestinal Gastrointestinal: Reports as per HPI, Denies abdominal pain, Denies dysphagia, Denies nausea, Denies odynophagia and Denies vomiting Genitourinary Genitourinary: Reports as per HPI Musculoskeletal Musculoskeletal: Denies back pain Integumentary/Breasts Skin/Breast: Reports as per HPI, Denies erythema, Denies rash and Denies skin pain Neurologic Neurologic: Reports as per HPI and Denies headache(s) Allergic/Immunologic Allergic/Immunologic: Denies lip swelling [facility] Medical History (Updated 08/17/21 @ 22:30 by HARRISON Johnson) ADHD (attention deficit hyperactivity disorder) (12/31/16) BMI 40.0-44.9, adult Chronic kidney disease, stage 1 (12/31/16) from renal infection as a child elevated BP resulting Depo-Provera contraceptive status (09/13/17) Depo-Provera contraception since 08/11/2017. Patient is using the Depo- Provera for menstrual cycle control. 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 Nexplanon in place 01/21/17. for control of menses. Overactive bladder (02/09/18) Surgical History History of kidney surgery Social History Smoking/Tobacco Use Status: Former Tobacco Use Smoking risk assessment performed?: Yes Alcohol Intake: former Drug use: Never Substance use type: does not use Sexually active: No (has never been sexually active. ) What is your relationship status?: never Panel score (0-1 are the most socially isolated patients): 0 Do you feel safe at home: Yes Do you feel safe in your relationship?: Yes Female Reproductive History Menstrual control method: progesterone injection (01/2017 Nexplanon for dysmenorrhea. Unable to rito insertion of IUD. Depo since 09/2017) History History 0 Para Hx # Term Pregnancies Multiple births Hx # Pregnancies Ectopic pregnancies AB induced Hx Number of Living Children AB spontaneous Exam Const General: cooperative, healthy appearing, comfortable, no acute distress, well developed and well groomed Nutritional Appearance: average body habitus and well nourished Orientation: alert and awake HENMT Head: normal to inspection, normocephalic and atraumatic Ears: hearing grossly normal bilaterally, external ears normal and TM's normal bilaterally General nose exam: external nose normal and nares normal Face and sinus: normal facial exam, sinuses nontender and face symmetric Mouth: oral mucosae normal, lip normal, tongue normal, moist mucous membranes, no audible dysphonia, no drooling, no muffled voice, no trismus and No restricted motion Teeth and gingiva: fair dentition (several dental caried, area of pain left lower) and other (no focal pain, no erythema, swelling, fluctuance) Throat: posterior oropharynx normal, tonsils normal and uvula midline Eyes General: appearance normal, both eyes and all related structures Neck Neck: normal visual inspection, full ROM, no lymphadenopathy, supple and no anterior neck swelling Resp Effort & Inspection: normal respiratory effort, able to speak in complete sentences and no respiratory distress Auscultation: clear to auscultation bilaterally, no rales, no rhonchi and no wheezes Cardio Rate: regular rate Rhythm: regular rhythm Heart Sounds: S1 normal and S2 normal GI Inspection: normal to inspection Palpation: soft and nontender Back/Spine/Pelvis Back: no CVA tenderness Skin General skin exam: no rashes or lesions noted Trauma: no lacerations or abrasions Neuro General: patient alert and patient awake Cognition: normal cognition Speech: speech normal Gait: normal gait Psych Appearance: grossly normal and well kempt Mental Status: mental status grossly normal Speech and Movement: speech and movement normal Course Vital Signs Vital signs: Vital Signs Temperature 36.6 C 08/17/21 21:44 Pulse 116 H 10/11/21 21:44 Respiratory Rate 18 08/17/21 21:44 Blood Pressure 145/89 H 08/17/21 21:44 Pulse Oximetry 98 08/17/21 21:44 Temperature 36.6 C 08/17/21 21:44 Temperature Source Temporal Artery Scan 08/17/21 21:44 Pulse 116 H 08/17/21 21:44 Respiratory Rate 18 08/17/21 21:44 Respiratory Effort Non-Labored 08/17/21 21:50 Blood Pressure 145/89 H 08/17/21 21:44 Blood Pressure Position Sitting 08/17/21 21:44 Pulse Oximetry 98 08/17/21 21:44 Oxygen Delivery Method Room Air 08/17/21 21:44 Oxygen Flow Rate 0 08/17/21 21:44 Pain Level 8 08/17/21 21:44
[2021-08-17 22:02] LABS: Bilirubin Negative (Negative); Blood Negative (Negative); Clarity Clear (Clear); Glucose Negative (Negative); Ketones Trace mg/dL (Negative); Leukocyte Esterase Negative (Negative); Nitrite Negative (Negative); Specific Gravity >= 1.030 (1.005-1.025); Urobilinogen 0.2 EU/dL (Up TO 0.2); pH 6.5 (5-8)
[2021-08-17 22:12] LABS: Bacteria Few HPF (Negative); C & S Indicated? No; Crystals Negative HPF (Negative); Epithelial Cells Few HPF (Negative); Mucus Heavy (Negative); RBC 0-2 HPF (0-2)
[2021-08-17 22:27] VITALS: PULSE 96; RESP 18; O2SAT 98
--- NOTE | 2021-08-17 23:05 | NUR.NOTE ---
Referral faxed to [facility] to f/u lacy for vaginal discharge.Nursing Note:
== END 2021-08-17 22:41 | disposition home or self-care (01) ==
PROVIDERS: Emergency Provider Physician Assistant; PCP Physician Assistant Medical
DX: R30.0 Dysuria (principal); N89.8 Other specified noninflammatory disorders of vagina; K08.89 Other specified disorders of teeth and supporting structures; I12.9 Hypertensive chronic kidney disease with stage 1 through stage 4 chronic kidney disease, or unspecified chronic kidney disease
CPT/HCPCS: 36416; 81025; 82962; 99282; 81003; 81015; 99283

== ENCOUNTER 2021-09-29 15:45 | Outpatient (REF) | payer MEDICAID, SELFPAY | END 2021-09-29 15:46 | disposition home or self-care (01) | LOC: LBN 15:45 | PROVIDERS: PCP Physician Assistant Medical; Visit Provider Nurse Practitioner Family | DX: N89.8 Other specified noninflammatory disorders of vagina (principal) | CPT/HCPCS: 87491; 87591; 87480; 87510; 87660 ==

== ENCOUNTER 2021-12-31 22:02 | Emergency (ER) | payer MEDICAID, SELFPAY ==
[2021-12-31 22:06] VITALS: BP 147/89; PULSE 104; RESP 22; TEMP 36.4; O2SAT 99
--- NOTE | 2021-12-31 22:20 | ED.GENADUL_ITS ---
Discharge Plan Disposition Patient Disposition: HOME Condition: Good Discharge Details Clinical Impression: Nausea & vomiting Primary Care Provider: Randy Willingham ED Provider: Douglas Gamez Home Meds and New Rx's Prescriptions: Continued melatonin 3 mg tablet 3 mg PO HS 0RF Rx Instructions: 1-2 tabs (3-6 mg) po at hs albuterol sulfate 90 mcg/actuation HFA aerosol inhaler 1 inh IH ONCE 0RF omeprazole 20 mg capsule,delayed release(DR/EC) 20 mg PO DAILY 0RF loratadine 10 mg capsule 10 mg PO DAILY 0RF VSL#3 112.5 billion cell capsule 1 cap PO DAILY Qty: 30 12RF labetalol 100 mg tablet 50 mg PO DAILY 0RF Digestive Advantage Prob Gummy 250 million cell tablet,chewable PO 0RF medroxyprogesterone [Depo-Provera] 150 mg/mL syringe 150 mg IM every 3 months Qty: 1 5RF Rx Instructions: [facility] to [facility]. quetiapine 25 MG tablet 25 mg PO BID 0RF clonidine HCl [Catapres] 0.2 MG tablet 0.2 mg PO HS 0RF fluoxetine 10 mg Capsule 20 mg PO DAILY 0RF acetaminophen 500 mg Tablet 1,000 mg PO PRN PRN0RF Discharge Instructions Instructions: Acute Nausea and Vomiting (ED) Additional Instructions: At this time I suspect that your symptoms are most likely secondary to a mild viral stomach bug. I think it is less likely that the reaction is from the medication however out of an abundance of precaution it would be reasonable to hold off on the fluticasone inhaler for the next 3 days. Please avoid any spicy, greasy, tomato-based, or fatty foods for the next 2 to 3 days. Please take the Zofran as needed for nausea. Drink small sips of water frequently to stay well-hydrated. If you notice any worsening of your symptoms, or any new symptoms such as vomiting, diarrhea, fever, chills, shortness of breath, chest pain, numbness, weakness, or fainting , please return immediately to the emergency department fo r reevaluation. Please follow up with your primary care provider as soon as possible for reassessment and reevaluation. As always, it was a pleasure participating in your medical care today. Referrals: Randy Willingham PA [Primary Care Provider] - Medical Decision Making 26-year-old female with a past medical history of kidney disease, ADHD, depression, obesity currently on contraceptives, presents today for vomiting. Patient denies feeling ill prior to taking the inhaler. She denies any chest pain abdominal pain diarrhea hematemesis hematochezia melena or acholic stool. She denies any fever or chills. She denies any numbness or tingling. She denies any other new medications or any atypical foods. No other sick contacts. No other complaints at this time. States that she did notice a small amount of rash on her arm earlier, but this is improved. She denies any rash in her mouth, burning with urination, or any other rash on her body. No other complaints at this time. She is here with her care worker. Physical exam demonstrates no rash, no evidence of hives, no oral lesions. No wheezes in the lungs. No abdominal tenderness whatsoever. Vital signs stable. Symptoms are notably inconsistent with allergic reaction or anaphylaxis. I suspect that the patient is actually suffering from mild gastroenteritis, likely viral or foodborne in nature. However out of an abundance of precaution I do feel that holding off on her inhaler for the time being is reasonable as she has no wheezes or signs of significant reactive airway disease currently. No indication for labs or imaging clinically whatsoever at this time. No evidence of an acute surgical abdomen requiring immediate surgical management. Patient will be given a dose of Zofran here and Zofran to go home. Recommend continued fluids at home, rest and close follow-up with PCP. Discussed red flags which to return. I have extensively reviewed the treatment plan and discharge instructions with the patient. I have addressed all patient concerns at this time. The patient was made aware of what symptoms to monitor for that would warrant a return to the emergency department. Discussed the plan with the patient, they demonstrate verbal understanding and agreement with our assessment and plan at this time. The documentation in this chart was dictated using [employer] dictation software. Please excuse any dictation errors. HPI General Date/Time Provider Initiated Documentation: 12/31/21 22:09 . HPI Narrative: 26-year-old female with a past medical history of kidney disease, ADHD, depression, obesity currently on contraceptives, presents today for vomiting. Patient denies feeling ill prior to taking the inhaler. She denies any chest pain abdominal pain diarrhea hematemesis hematochezia melena or ac holic stool. She denies any fever or chills. She denies any numbness or tingling. She denies any other new medications or any atypical foods. No other sick contacts. No other complaints at this time. States that she did notice a small amount of rash on her arm earlier, but this is improved. She denies any rash in her mouth, burning with urination, or any other rash on her body. No other complaints at this time. She is here with her care worker. Related Data Home Medications Medication Instructions Recorded Confirmed clonidine HCl 0.2 mg tablet 0.2 mg PO HS 03/29/13 08/19/21 (Catapres) quetiapine 25 mg tablet 25 mg PO BID 03/29/13 08/19/21 acetaminophen 500 mg tablet 1,000 mg PO PRN PRN 10/30/19 08/19/21 fluoxetine 10 mg capsule 20 mg PO DAILY 11/20/19 08/19/21 albuterol sulfate 90 mcg/actuation 1 inh IH ONCE 05/13/20 08/19/21 aerosol inhaler loratadine 10 mg capsule 10 mg PO DAILY 07/31/20 08/19/21 omeprazole 20 mg capsule,delayed 20 mg PO DAILY 07/31/20 08/19/21 release medroxyprogesterone 150 mg/mL 150 mg IM every 3 months #1 syringe 09/21/21 intramuscular syringe (Depo-Provera) Bacillus coagulans 250 million cell PO 09/25/21 cell chewable tablet (Digestive Advantage Probiotic Gummy) labetalol 100 mg tablet 50 mg PO DAILY tab 09/25/21 melatonin 3 mg tablet 3 mg PO HS tab 09/25/21 Lactobac no.2-Bifidobac no.1-S. 1 cap PO DAILY #30 cap 12/18/21 12/18/21 thermo 112.5 billion cell capsule (VSL#3) Previous Rx's Medication Instructions Recorded medroxyprogesterone 150 mg/mL 150 mg IM every 3 months #1 syringe 09/21/21 intramuscular syringe (Depo-Provera) Lactobac no.2-Bifidobac no.1-S. 1 cap PO DAILY #30 cap 12/18/21 thermo 112.5 billion cell capsule (VSL#3) Allergies Allergy/AdvReac Type Severity Reaction Status Date / Time paroxetine HCl [From Paxil] Allergy Intermediate Hives Verified 12/18/21 10:09 risperidone [From Risperdal] Allergy Intermediate Hives Verified 12/18/21 10:09 NSAIDS (Non-Steroidal Allergy Verified 12/18/21 10:09 Anti-Inflamma amoxicillin AdvReac Nausea Verified 12/18/21 10:09 enviornmental Allergy Mild sneezing Uncoded 12/18/21 10:09 General Stated Complaint: Nausea/Vomit/Diar MARY KAY: 3 Review of Systems All systems reviewed & are unremarkable except as noted in HPI and below PFSH All Active Problems Nausea & vomiting (Acute) SASHA (stress urinary incontinence, female) (Acute) Pain, dental (Acute) Dysuria (Acute) Vaginal discharge (Acute) Contraceptive management (Acute) Back contusion (Acute) Contusion of buttock (Acute) Blood in stool (Acute) Fall due to ice or snow (Acute) Pain, dental (Acute) Jaw pain (Acute) TMJ tenderness, left (Acute) Otalgia, right ear (Acute) BMI 40.0-44.9, adult (Chronic) Overactive bladder (Chronic 02/09/18) Kidney disease (Chronic 09/13/17) Secondary to UTIs as a child. 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 Patient is using the Depo- Provera for menstrual cycle control. ADHD (attention deficit hyperactivity disorder) (Chronic 12/31/16) Medical History History of mastoiditis Nexplanon in place 01/21/17. for control of menses. Surgical History History of kidney surgery Social History Smoking/Tobacco Use Status: Former Tobacco Use Smoking risk assessment performed?: Yes Alcohol Intake: former Drug use: Never Substance use type: does not use Sexually active: No (has never been sexually active. ) What is your relationship status?: never Panel score (0-1 are the most socially isolated patients): 0 Do you feel safe at home: Yes Do you feel safe in your relationship?: Yes Female Reproductive History Menstrual control method: progesterone injection History History 0 Para Hx # Term Pregnancies Multiple births Hx # Pregnancies Ectopic pregnancies AB induced Hx Number of Living Children AB spontaneous Exam Narrative Exam Narrative: 1.Const: Well-nourished, Well-developed, appearing stated age 2.Eyes: PERRL, no conjunctival injection, and symmetrical lids. 3.ENT: Atraumatic external nose and ears. Moist MM. Neck: Symmetric, trachea midline, No thyromegaly. No oral lesions. 4.CVS: +S1/S2, No murmurs or gallops. Peripheral pulses 2+ and equal in all extremities. Brisk capillary refill in all extremities. 5.RESP: Unlabored respiratory effort. Clear to auscultation bilaterally. No wheezes rales or rhonchi 6.GI: Soft, Nontender/Nondistended, No hepatosplenomegaly. No guarding or rebound. No pain to McBurney's point. Negative Mortensen sign. No epigastric tenderness. 7.MSK: Normocephalic/Atraumatic, Extremities w/o deformity or ttp No cyanosis or clubbing, Normal movement of all extremities 8.Skin: Warm, Dry. No rashes or lesions. Negative Nikolsky sign. No large vesicles or bulla. No palpable purpura. No oral lesions. No mucosal lesions. No evidence of severe cellulitis. No evidence of vaccine preventable rash. 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 Sensation grossly intact, no focal neurologic deficits. 10.Psych: (AAO) x3. Appropriate mood and affect Course Vital Signs Vital signs: Vital Signs Temperature 36.4 C L 12/31/21 22:06 Pulse 104 H 12/31/21 22:06 Respiratory Rate 22 12/31/21 22:06 Blood Pressure 147/89 H 12/31/21 22:06 Pulse Oximetry 99 12/31/21 22:06 Temperature 36.4 C L 12/31/21 22:06 Temperature Source Temporal Artery Scan 12/31/21 22:06 Pulse 104 H 12/31/21 22:06 Respiratory Rate 22 12/31/21 22:06 Respiratory Effort 12/31/21 22:11 Blood Pressure 147/89 H 12/31/21 22:06 Blood Pressure Position Sitting 12/31/21 22:06 Pulse Oximetry 99 12/31/21 22:06 Oxygen Delivery Method Room Air 12/31/21 22:06 Oxygen Flow Rate 0 12/31/21 22:06 Pain Level 0 12/31/21 22:06
[2021-12-31] MEDS: Ondansetron O.D.T. 4 MG TABEF PO (22:28)
[2021-12-31] MEDS: Ondansetron O.D.T. 4 MG TABEF, 3 TABS/BTL PO (22:29)
== END 2021-12-31 22:35 | disposition home or self-care (01) ==
PROVIDERS: Emergency Provider Student in an Organized Health Care Education/Training Program; PCP Physician Assistant Medical
DX: R11.2 Nausea with vomiting, unspecified (principal)
CPT/HCPCS: 99283

== ENCOUNTER 2022-01-09 22:26 | Emergency (ER) | payer MEDICAID, SELFPAY ==
--- NOTE | 2022-01-09 22:35 | ED.GENADUL_ITS ---
Discharge Plan Disposition Patient Disposition: HOME Condition: Stable Discharge Details Clinical Impression: Constipation Primary Care Provider: Randy Willingham ED Provider: Oswald Tripp Home Meds and New Rx's Prescriptions: Continued melatonin 3 mg tablet 3 mg PO HS 0RF Rx Instructions: 1-2 tabs (3-6 mg) po at hs albuterol sulfate 90 mcg/actuation HFA aerosol inhaler 1 inh IH ONCE 0RF omeprazole 20 mg capsule,delayed release(DR/EC) 20 mg PO DAILY 0RF loratadine 10 mg capsule 10 mg PO DAILY 0RF VSL#3 112.5 billion cell capsule 1 cap PO DAILY Qty: 30 12RF labetalol 100 mg tablet 50 mg PO DAILY 0RF Digestive Advantage Prob Gummy 250 million cell tablet,chewable PO 0RF medroxyprogesterone [Depo-Provera] 150 mg/mL syringe 150 mg IM every 3 months Qty: 1 5RF Rx Instructions: [facility]. quetiapine 25 MG tablet 25 mg PO BID 0RF clonidine HCl [Catapres] 0.2 MG tablet 0.2 mg PO HS 0RF fluoxetine 10 mg Capsule 20 mg PO DAILY 0RF acetaminophen 500 mg Tablet 1,000 mg PO PRN PRN0RF Discharge Instructions Instructions: Constipation (ED) Additional Instructions: Laboratory values do not reveal any obvious emergent process. I recommend a diet high in fiber, taking [id number] stool softeners, and being sure to stay adequately hydrated to help with your bowel movements. Please watch for new or worsening symptoms and return to the ER for any concerns. I strongly recommend contacting your primary care provider first thing Tuesday morning to discuss your ongoing symptoms and need for outpatient reevaluation. I am giving you the name and number of our local surgical team but you may need a referral for your primary care provider for this Referrals: Ritu Winslow MD [ [facility] STAFF PHYSICIAN] - Discharge Data Discharge Date/Time-TO BE ENTERED AT DEPARTURE: 01/09/22 23:46 Medical Decision Making 26-year-old female presents with multiple concerns. Her abdominal examination is unremarkable, nontender. Rectal exam is unremarkable, nontender, heme- negative, no obvious hemorrhoid. Given her multitude of complaints, I would like to obtain a urinalysis with test as well as routine laboratory values for further evaluation of potential leukocytosis and/or anemia. We also discussed the importance of adequate hydration, high-fiber diet, and I do believe that giving stool softeners a chance would be reasonable given her ongoing constipation. Clinically extremely low suspicion for acute diverticulitis, bowel obstruction, etc. I do question if this may be secondary to constipation and she could have strained to have a bowel movement causing a small no bleeding and/or even a fissure. I do believe that surgical consultation is also reasonable for her ongoing symptoms. Urinalysis is unremarkable for obvious infectious process or hematuria. Patient with nonspecific mild leukocytosis of 13.23. When reviewing her previous records it does not seem to be vastly different than her baseline her other presentations. Given her benign examination today and duration of symptoms I have extremely low suspicion for acute process such as appendicitis, bowel obstruction, PID, etc. and therefore do not feel as though emergent CT imaging is indicated. Patient tells me that her symptoms have been going on for at least 2 months but upon investigation she states possibly over 4 months. On examination I saw no evidence of rectal bleeding or external hemorrhoid. Upon rectal examination I was unable to appreciate any obvious tenderness and or internal hemorrhoid. Stool was brown. Chemistries are unremarkable for any obvious emergent process. Lipase 63. Urinalysis negative for signs of infection. Upon reevaluation patient is feeling well, abdomen is soft, nontender, benign examination. She remained hemodynamically stable. Heart rate is now 98. We discussed her evaluation here in the ER as well as the importance of taking stool softeners to help with her ongoing constipation. Strict discharge and return precautions were provided. Otherwise I will provide her with a surgical referral and recommend that she contact both the surgical team at her primary ca re provider on Tuesday to discuss her ongoing symptoms and need for outpatient reevaluation. This documentation was generated using [email or web address] system, please disregard any oddities of phrase or misspellings. Medical Records Medical records reviewed: Yes I reviewed the patient's medical records. Lab Data Lab results reviewed: Yes I reviewed the patient's lab results. Labs: Laboratory Tests Range/Units 01/09/22 01/09/22 01/09/22 22:32 23:10 23:10 WBC (4.4-10.8) 10^3/uL 13.24 H RBC (3.93-5.22) 10^6/uL 4.92 Hgb (11.2-15.7) g/dL 12.1 Hct (36.0-46.0) % 38.5 MCV (80-95) fL 78.3 L MCH (27.0-33.0) pg 24.6 L MCHC (32.0-36.0) % 31.4 L RDW (11.7-14.6) % 14.8 H Plt Count (130-400) 10^3/uL 265 MPV (8.0-11.0) fL 12.1 H Immature Gran % 0.4 Neutrophils % 69.6 Lymphocytes % 18.8 Monocytes % 9.1 Eosinophils % 1.6 Basophils % 0.5 Nucleated RBC % % 0 Absolute Neutrophils (1.2-6.7) 10^3/uL 9.22 H Absolute Lymphocytes (1.2-3.4) 10^3/uL 2.49 Absolute Monocytes (0.1-0.8) 10^3/uL 1.20 H Absolute Eosinophils (0.0-0.7) 10^3/uL 0.21 Absolute Basophils (0.0-0.2) 10^3/uL 0.07 Sodium (136-145) mmol/L 140 Potassium (3.5-5.1) mmol/L 3.8 Chloride (98-107) mmol/L 106 Carbon Dioxide (21.0-32.0) mmol/L 23.3 Anion Gap (3-11) mmol/L 10.7 BUN (7-18) mg/dL 9 Creatinine (0.55-1.02) mg/dL 0.8 Estimated GFR/1.73 m2 (mL/min/1.73m2) >= 60.00 Glucose (74-106) mg/dL 115 H Calcium (8.5-10.1) mg/dL 8.9 Total Bilirubin (0.2-1.0) mg/dL 0.2 AST (15-37) U/L 12 L ALT (14-59) U/L 20 Alkaline Phosphatase (46-116) U/L 93 Total Protein (6.4-8.2) g/dL 7.0 Albumin (3.4-5.0) g/dL 3.6 Lipase (73-393) U/L 63 Urine Color (Yellow) Yellow Urine Clarity (Clear) Clear Urine pH (5-8) 6.5 Ur Specific [place] (1.005-1.025) >= 1.030 H Urine Protein (Negative) mg/dL Trace H Urine Ketones (Negative) mg/dL Negative Urine Blood (Negative) Negative Urine Nitrite (Negative) Negative Urine Bilirubin (Negative) Negative Urine Urobilinogen (Up TO 0.2) EU/dL 0.2 Ur Leukocyte Esterase (Negative) Negative Urine RBC (0-2) HPF 0-2 Urine WBC (0-5) HPF 0-2 Ur Epithelial Cells (Negative) HPF Few Urine Crystals (Negative) HPF Negative Urine Bacteria (Negative) HPF Few Urine Casts (Negative) LPF Negative Urine Mucus (Negative) Negative Ur Culture Indicated? No Urine Glucose (Negative) mg/dL Negative HPI General Mode of arrival: ambulatory . Date/Time Provider Initiated Documentation: 01/09/22 22:29 . Limitations to Documentation: no limitations . Information obtained by: patient (and [facility] staff member) . HPI Narrative: This is a 26-year-old female, past medical history that includes ADHD, depression, headaches, chronic kidney disease, hypertension, presenting to the ER with multiple complaints that include concern of a bleeding hemorrhoid, constipation x2 days, mild dysuria, and acute on chronic back pain. Patient is concerned that she may have a urinary tract infection. She reports that over the past 2 months that she has been seen by her primary care provider and treated with cream and wipes for potential hemorrhoid but it is not helping. She states that she thought she saw blood in her stool after wiping yesterday. She denies recent illness or trauma, fever, abdominal pain, nausea, vomiting, hematuria, diarrhea or black tarry stools. Patient reports that she has been dealing with constipation for quite some time and feels as though she does not like taking stool softeners because it typically makes her symptoms worse. Patient tells me that her PCP has talked to her about a surgical consultation for her ongoing discomfort but this appointment has yet to be made. She denies any vaginal bleeding or discharge. Related Data Home Medications Medication Instructions Recorded Confirmed clonidine HCl 0.2 mg tablet 0.2 mg PO HS 03/29/13 01/09/22 (Catapres) quetiapine 25 mg tablet 25 mg PO BID 03/29/13 01/09/22 acetaminophen 500 mg tablet 1,000 mg PO PRN PRN 10/30/19 08/19/21 fluoxetine 10 mg capsule 20 mg PO DAILY 11/20/19 01/09/22 albuterol sulfate 90 mcg/actuation 1 inh IH ONCE 05/13/20 01/09/22 aerosol inhaler loratadine 10 mg capsule 10 mg PO DAILY 07/31/20 01/09/22 omeprazole 20 mg capsule,delayed 20 mg PO DAILY 07/31/20 01/09/22 release medroxyprogesterone 150 mg/mL 150 mg IM every 3 months #1 syringe 09/21/21 01/09/22 intramuscular syringe (Depo-Provera) Bacillus coagulans 250 million cell PO 09/25/21 cell chewable tablet (Digestive Advantage Probiotic Gummy) labetalol 100 mg tablet 50 mg PO DAILY tab 09/25/21 01/09/22 melatonin 3 mg tablet 3 mg PO HS tab 09/25/21 01/09/22 Lactobac no.2-Bifidobac no.1-S. 1 cap PO DAILY #30 cap 12/18/21 01/09/22 thermo 112.5 billion cell capsule (VSL#3) Previous Rx's Medication Instructions Recorded medroxyprogesterone 150 mg/mL 150 mg IM every 3 months #1 syringe 09/21/21 intramuscular syringe (Depo-Provera) Lactobac no.2-Bifidobac no.1-S. 1 cap PO DAILY #30 cap 12/18/21 thermo 112.5 billion cell capsule (VSL#3) Allergies Allergy/AdvReac Type Severity Reaction Status Date / Time paroxetine HCl [From Paxil] Allergy Intermediate Hives Verified 12/18/21 10:09 risperidone [From Risperdal] Allergy Intermediate Hives Verified 12/18/21 10:09 NSAIDS (Non-Steroidal Allergy Verified 12/18/21 10:09 Anti-Inflamma amoxicillin AdvReac Nausea Verified 12/18/21 10:09 enviornmental Allergy Mild sneezing Uncoded 12/18/21 10:09 General MARY KAY: 3 Review of Systems Constitutional Constitutional: Denies fever(s) Cardiovascular Cardiovascular: Denies chest pain and Denies dyspnea Respiratory Respiratory: Denies dyspnea Gastrointestinal Gastrointestinal: Denies abdominal pain, Denies melena, Reports hematochezia, Reports constipation, Denies diarrhea, Denies nausea and Denies vomiting Genitourinary Genitourinary: Denies abnormal vaginal bleeding, Reports dysuria and Denies vaginal discharge Musculoskeletal Musculoskeletal: Reports back pain Integumentary/Breasts Skin/Breast: Denies rash PFSH All Active Problems (Updated 01/09/22 @ 23:10 by HARRISON Portillo) Nausea & vomiting (Acute) Constipation (Acute) SASHA (stress urinary incontinence, female) (Acute) Pain, dental (Acute) Dysuria (Acute) Vaginal discharge (Acute) Contraceptive management (Acute) Back contusion (Acute) Contusion of buttock (Acute) Blood in stool (Acute) Fall due to ice or snow (Acute) Pain, dental (Acute) Jaw pain (Acute) TMJ tenderness, left (Acute) Otalgia, right ear (Acute) BMI 40.0-44.9, adult (Chronic) Overactive bladder (Chronic 02/09/18) Kidney disease (Chronic 09/13/17) Secondary to UTIs as a child. 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 Patient is using the Depo- Provera for menstrual cycle control. ADHD (attention deficit hyperactivity disorder) (Chronic 12/31/16) Medical History (Updated 01/09/22 @ 23:10 by HARRISON Portillo) History of mastoiditis Nexplanon in place 01/21/17. for control of menses. Surgical History History of kidney surgery Social History Smoking/Tobacco Use Status: Former Tobacco Use Smoking risk assessment performed?: Yes Alcohol Intake: current Alcohol Intake frequency: 0-2 drinks per day Drug use: Never Substance use type: does not use Details: pt states that she had not had alcohol in ten months but did take a drink tonight because of pain Sexually active: No (has never been sexually active. ) What is your relationship status?: never Panel score (0-1 are the most socially isolated patients): 0 Do you feel safe at home: Yes Do you feel safe in your relationship?: Yes Female Reproductive History Menstrual control method: progesterone injection History History 0 Para Hx # Term Pregnancies Multiple births Hx # Pregnancies Ectopic pregnancies AB induced Hx Number of Living Children AB spontaneous Exam Const General: cooperative, healthy appearing, comfortable and no acute distress Orientation: alert, awake and oriented x3 HENMT Head: normal to inspection, normocephalic and atraumatic Mouth: moist mucous membranes Eyes Conjunctivae: conjunctivae normal Neck Neck: normal visual inspection, trachea midline and supple Resp Effort & Inspection: normal respiratory effort and able to speak in complete sentences Auscultation: clear to auscultation bilaterally Cardio Rate: tachycardic (104) Rhythm: regular rhythm GI Inspection: normal to inspection and obesity Palpation: soft, not firm, no guarding, no pulsatile masses and nontender Auscultation: normal bowel sounds Rectal Exam - female: visual inspection normal, normal sphincter tone, heme negative stool and No hemorrhoids Back/Spine/Pelvis Back: no CVA tenderness and No back tenderness Skin General skin exam: no rashes or lesions noted Neuro General: patient alert, patient awake, moves all extremities and no focal motor deficits Sensory Exam: no sensory deficits noted Psych Appearance: grossly normal Mental Status: mental status grossly normal
[2022-01-09 22:37] VITALS: BP 125/87; PULSE 115; RESP 18; TEMP 36.6; O2SAT 98
[2022-01-09 22:40] LABS: Bilirubin Negative (Negative); Blood Negative (Negative); Clarity Clear (Clear); Glucose Negative (Negative); Ketones Negative (Negative); Leukocyte Esterase Negative (Negative); Nitrite Negative (Negative); Specific Gravity >= 1.030 (1.005-1.025); Urobilinogen 0.2 EU/dL (Up TO 0.2); pH 6.5 (5-8)
[2022-01-09 22:46] LABS: Bacteria Few HPF (Negative); C & S Indicated? No; Casts Negative LPF (Negative); Crystals Negative HPF (Negative); Epithelial Cells Few HPF (Negative); Mucus Negative (Negative); RBC 0-2 HPF (0-2); WBC 0-2 HPF (0-5)
[2022-01-09 23:17] LABS: Abs Immature Grans 0.05 10^3/uL (0.0-0.06); Absolute Basophil Count 0.07 10^3/uL (0.0-0.2); Absolute Eosinophil Count 0.21 10^3/uL (0.0-0.7); Absolute Lymphocyte Count 2.49 10^3/uL (1.2-3.4); Absolute Neutrophil Count 9.22 10^3/uL (1.2-6.7); Basophils % 0.5; Eosinophils % 1.6; HCT 38.5 % (36.0-46.0); HGB 12.1 g/dL (11.2-15.7); Immature Grans % 0.4; Lymphocytes % 18.8; MCH 24.6 pg (27.0-33.0); MCHC 31.4 % (32.0-36.0); MCV 78.3 fL (80-95); MPV 12.1 fL (8.0-11.0); Monocytes % 9.1; Neutrophils % 69.6; Nucleated RBC 0 %; Platelet Count 265 10^3/uL (130-400); RBC 4.92 10^6/uL (3.93-5.22); RDW 14.8 % (11.7-14.6); WBC 13.24 10^3/uL (4.4-10.8)
[2022-01-09 23:36] LABS: ALT 20 U/L (14-59); AST 12 U/L (15-37); Albumin 3.6 g/dL (3.4-5.0); Alkaline Phosphatase 93 U/L (46-116); Anion Gap 10.7 mmol/L (3-11); BUN 9 mg/dL (7-18); Bilirubin, Total 0.2 mg/dL (0.2-1.0); CO2 23.3 mmol/L (21.0-32.0); CREATININE 0.8 mg/dL (0.55-1.02); Calcium 8.9 mg/dL (8.5-10.1); Chloride 106 mmol/L (98-107); Glucose 115 mg/dL (74-106); Lipase 63 U/L (73-393); Potassium 3.8 mmol/L (3.5-5.1); Sodium 140 mmol/L (136-145)
== END 2022-01-09 23:46 | disposition home or self-care (01) ==
PROVIDERS: Emergency Provider Physician Assistant; PCP Physician Assistant Medical
DX: K59.00 Constipation, unspecified (principal); K92.1 Melena
CPT/HCPCS: 36415; 80053; 81025; 83690; 99283; 81003; 81015; 85025; 99282

== ENCOUNTER 2022-01-24 16:50 | Emergency (ER) | payer MEDICAID, SELFPAY ==
[2022-01-24 16:53] VITALS: BP 140/97; PULSE 103; RESP 18; TEMP 36.1; O2SAT 98
--- NOTE | 2022-01-24 17:15 | DI.RAD_ITS ---
Exam(s) XR HAND RT COMPLETE EXAM: XR HAND RT COMPLETE CLINICAL HISTORY: right hand pain. TECHNIQUE: 2D digital imaging was performed. COMPARISON: CR XR hand RT complete from 05/05/2019 FINDINGS: 3 views No evidence of fracture nor dislocation. No abnormal soft tissue calcifications. No radiopaque fore ign body. No osseous lesions nor erosions. IMPRESSION: No significant findings. No fracture evident. DATA REPOSITORY: RADIATION DOSE DELIVERED:
--- NOTE | 2022-01-24 17:38 | ED.GENADUL_ITS ---
Discharge Plan Disposition Patient Disposition: HOME Condition: Stable Discharge Details Clinical Impression: Contusion of right wrist Primary Care Provider: Randy Willingham ED Provider: Leonor Simons Home Meds and New Rx's Prescriptions: Continued melatonin 3 mg tablet 3 - 5 mg PO HS 0RF Rx Instructions: 1-2 tabs (3-6 mg) po at hs albuterol sulfate 90 mcg/actuation HFA aerosol inhaler 1 inh IH ONCE 0RF omeprazole 20 mg capsule,delayed release(DR/EC) 20 mg PO DAILY 0RF loratadine 10 mg capsule 10 mg PO DAILY 0RF VSL#3 112.5 billion cell capsule 1 cap PO DAILY Qty: 30 12RF Label Comments: takes gummies labetalol 100 mg tablet 50 mg PO DAILY 0RF Digestive Advantage Prob Gummy 250 million cell tablet,chewable PO 0RF medroxyprogesterone [Depo-Provera] 150 mg/mL syringe 150 mg IM every 3 months Qty: 1 5RF Rx Instructions: [facility] syringe to [facility] for administration. quetiapine 25 MG tablet 25 mg PO BID 0RF clonidine HCl [Catapres] 0.2 MG tablet 0.2 mg PO HS 0RF fluoxetine 10 mg Capsule 20 mg PO DAILY 0RF acetaminophen 500 mg Tablet 1,000 mg PO PRN PRN0RF Discharge Instructions Instructions: Contusion in Adults (ED) Additional Instructions: Repeat x-ray in 1 week with persistent pain No obvious fracture on your x-ray today Take Tylenol as needed for discomfort as instructed on the bottle Return earlier should you have new or worsening complaints Referrals: Randy Willingham PA [Primary Care Provider] - Discharge Data Discharge Date/Time-TO BE ENTERED AT DEPARTURE: 01/24/22 17:58 Medical Decision Making X-ray does not show acute abnormality -A splint for comfort Ibuprofen and Tylenol as needed for pain Return precautions discussed and patient understanding Repeat x-ray in 1 week with persistent pain Medical Records Medical records reviewed: Yes I reviewed the patient's medical records. HPI General Date/Time Provider Initiated Documentation: 01/24/22 17:15 . HPI Narrative: This 26-year-old female presents with injury to her right wrist. She reportedly punched a wall out of anger. She feels safe in her home. She denies any chance of . She denies any strength or sensation change or other injuries. Related Data Home Medications Medication Instructions Recorded Confirmed clonidine HCl 0.2 mg tablet 0.2 mg PO HS 03/29/13 01/24/22 (Catapres) quetiapine 25 mg tablet 25 mg PO BID 03/29/13 01/24/22 acetaminophen 500 mg tablet 1,000 mg PO PRN PRN 10/30/19 01/24/22 fluoxetine 10 mg capsule 20 mg PO DAILY 11/20/19 01/24/22 albuterol sulfate 90 mcg/actuation 1 inh IH ONCE 05/13/20 01/24/22 aerosol inhaler loratadine 10 mg capsule 10 mg PO DAILY 07/31/20 01/24/22 omeprazole 20 mg capsule,delayed 20 mg PO DAILY 07/31/20 01/24/22 release medroxyprogesterone 150 mg/mL 150 mg IM every 3 months #1 syringe 09/21/21 01/24/22 intramuscular syringe (Depo-Provera) Bacillus coagulans 250 million cell PO 09/25/21 cell chewable tablet (Digestive Advantage Probiotic Gummy) labetalol 100 mg tablet 50 mg PO DAILY tab 09/25/21 01/24/22 melatonin 3 mg tablet 3 - 5 mg PO HS tab 09/25/21 01/24/22 Lactobac no.2-Bifidobac no.1-S. 1 cap PO DAILY #30 cap 12/18/21 01/09/22 thermo 112.5 billion cell capsule (VSL#3) Previous Rx's Medication Instructions Recorded medroxyprogesterone 150 mg/mL 150 mg IM every 3 months #1 syringe 09/21/21 intramuscular syringe (Depo-Provera) Lactobac no.2-Bifidobac no.1-S. 1 cap PO DAILY #30 cap 12/18/21 thermo 112.5 billion cell capsule (VSL#3) Allergies Allergy/AdvReac Type Severity Reaction Status Date / Time paroxetine HCl [From Paxil] Allergy Intermediate Hives Verified 01/24/22 17:04 risperidone [From Risperdal] Allergy Intermediate Hives Verified 01/24/22 17:04 NSAIDS (Non-Steroidal Allergy Verified 01/24/22 17:04 Anti-Inflamma amoxicillin AdvReac Nausea Verified 01/24/22 17:04 enviornmental Allergy Mild sneezing Uncoded 01/24/22 17:04 General Stated Complaint: Orthopedic MARY KAY: 4 Review of Systems Narrative: Review of systems obtained x3 and negative aside from medication HPI PFSH All Active Problems (Updated 01/24/22 @ 17:43 by HARRISON Nava) Nausea & vomiting (Acute) Constipation (Acute) Contusion of right wrist (Acute) SASHA (stress urinary incontinence, female) (Acute) Pain, dental (Acute) Dysuria (Acute) Vaginal discharge (Acute) Contraceptive management (Acute) Back contusion (Acute) Contusion of buttock (Acute) Blood in stool (Acute) Fall due to ice or snow (Acute) Pain, dental (Acute) Jaw pain (Acute) TMJ tenderness, left (Acute) Otalgia, right ear (Acute) BMI 40.0-44.9, adult (Chronic) Overactive bladder (Chronic 02/09/18) Kidney disease (Chronic 09/13/17) Secondary to UTIs as a child. 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 Patient is using the Depo- Provera for menstrual cycle control. ADHD (attention deficit hyperactivity disorder) (Chronic 12/31/16) Medical History (Updated 01/24/22 @ 17:43 by HARRISON Nava) History of mastoiditis Nexplanon in place 01/21/17. for control of menses. Surgical History History of kidney surgery Social History Smoking/Tobacco Use Status: Former Tobacco Use Smoking risk assessment performed?: Yes Alcohol Intake: former Drug use: Never Substance use type: does not use Sexually active: No (has never been sexually active. ) What is your relationship status?: never Panel score (0-1 are the most socially isolated patients): 0 Do you feel safe at home: Yes Do you feel safe in your relationship?: Yes Female Reproductive History Menstrual control method: progesterone injection History History 0 Para Hx # Term Pregnancies Multiple births Hx # Pregnancies Ectopic pregnancies AB induced Hx Number of Living Children AB spontaneous Exam Const General: cooperative and comfortable Extrem Other: Right wrist with tenderness, no visible sign of trauma, neurovascularly intact, no tenderness to right elbow Course Vital Signs Vital signs: Vital Signs Temperature 36.1 C L 01/24/22 16:53 Pulse 103 H 01/24/22 16:53 Respiratory Rate 18 01/24/22 16:53 Blood Pressure 140/97 H 01/24/22 16:53 Pulse Oximetry 98 01/24/22 16:53 Temperature 36.1 C L 01/24/22 16:53 Temperature Source Skin 01/24/22 16:53 Pulse 103 H 01/24/22 16:53 Respiratory Rate 18 01/24/22 16:53 Respiratory Effort 01/24/22 17:01 Blood Pressure 140/97 H 01/24/22 16:53 Blood Pressure Position Sitting 01/24/22 16:53 Pulse Oximetry 98 01/24/22 16:53 Oxygen Delivery Method Room Air 01/24/22 16:53 Oxygen Flow Rate 0 01/24/22 16:53 Pain Level 5 01/24/22 16:59
[2022-01-24] MEDS: Acetaminophen 325 MG TAB 650 MG PO (17:53)
--- NOTE | 2022-01-24 17:53 | DI.VRAD_ITS ---
PROCEDURE INFORMATION: Exam: XR Right Hand Exam date and time: 01/24/2022 5:26 PM Age: 26 years old Clinical indication: Other: Right hand pain; Additional info: Patient unable to follow lateral positioning instructions. Patient stated numbness and tingling in hand and fingers TECHNIQUE: Imaging protocol: XR Right hand. Views: 3 or more views. COMPARISON: CR XR hand RT complete 05/05/2019 9:05 PM FINDINGS: Bones/joints: No acute fracture or dislocation. Soft tissues: Unremarkable. IMPRESSION: No acute fracture or dislocation. Dictated and Authenticated by: Benny Guevara MD. Ordering:CHEYENNE Galvez MD
== END 2022-01-24 17:58 | disposition home or self-care (01) ==
PROVIDERS: Emergency Provider Physician Assistant; PCP Physician Assistant Medical
DX: S60.211A Contusion of right wrist, initial encounter (principal); W22.01XA Walked into wall, initial encounter
CPT/HCPCS: 29125; 99283; 73130

== ENCOUNTER 2022-02-02 15:30 | Emergency (ER) | payer MEDICAID, SELFPAY ==
[2022-02-02 15:40] VITALS: BP 150/103; PULSE 114; RESP 16; TEMP 36.3; O2SAT 97
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
[2022-02-02] MEDS: Acetaminophen 325 MG TAB 650 MG PO (16:13)
== END 2022-02-02 16:22 | disposition home or self-care (01) ==
PROVIDERS: Emergency Provider Physician Assistant; PCP Physician Assistant Medical
DX: S60.221A Contusion of right hand, initial encounter (principal); W22.09XA Striking against other stationary object, initial encounter
CPT/HCPCS: 99283; 73130

== ENCOUNTER 2022-02-12 13:36 | Outpatient (REF) | payer MEDICAID, SELFPAY ==
[2022-02-12 14:52] LABS: Ferritin 59 ng/mL (8-252); TSH (W/Ref FT4) 1.13 uIU/mL (0.36-3.74)
[2022-02-15 06:57] LABS: Vitamin D 25 Total 7.4 ng/mL (30-100)
== END 2022-02-12 13:37 | disposition home or self-care (01) ==
LOC: NCHCN 13:36
PROVIDERS: PCP Physician Assistant Medical; Visit Provider Nurse Practitioner Family
DX: R53.83 Other fatigue (principal)
CPT/HCPCS: 82306; 82728; 84443

== ENCOUNTER 2022-02-16 21:56 | Emergency (ER) | payer MEDICAID, SELFPAY ==
[2022-02-16 22:38] VITALS: BP 130/98; PULSE 78; RESP 18; TEMP 36.6; O2SAT 99
--- NOTE | 2022-02-16 23:00 | DI.RAD_ITS ---
Exam(s) XR HAND RT COMPLETE EXAM: XR HAND RT COMPLETE CLINICAL HISTORY: blunt trauma. TECHNIQUE: 2D digital imaging was performed. Three views. COMPARISON: CR XR HAND RT COMPLETE from 02/02/2022 FINDINGS: BONES: No acute fracture is present. No bony destructive lesion is seen. JOINTS: No dislocation present. SOFT TISSUE: Normal. IMPRESSION: Unremarkable radiographs of the right hand. DATA REPOSITORY: RADIATION DOSE DELIVERED:
--- NOTE | 2022-02-16 23:00 | DI.RAD_ITS ---
Exam(s) XR FOOT LT COMPLETE EXAM: XR FOOT LT COMPLETE CLINICAL HISTORY: blunt trauma. TECHNIQUE: 2D digital imaging was performed. Three views. COMPARISON: No exams were available for comparison FINDINGS: BONES: No acute fracture is present. No bony destructive lesion is seen. JOINTS: No dislocation present. SOFT TISSUE: Dorsal swelling IMPRESSION: No fracture.. DATA REPOSITORY: RADIATION DOSE DELIVERED:
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
--- NOTE | 2022-02-17 00:06 | W.EDPROG ---
Date of service: 02/17/22 Time of Service: 00:07 Medical Decision Making pt's xrays on my reads show no acute findings. She has minimal tenderness to the great toe and also proximal thumb with full range of motion of all joints. She doesn't want to stay for vrad reads which I feel is reasonable, will call her if vrad sees anything of concern. Advised to try and refrain from punching chambers and return precautions given Imaging Data Radiologic Study: Attestation: I personally reviewed and interpreted this imaging study as follows: Imaging: X-Ray My impression: no acute findings hand xray Radiologic Study #2: Attestation: I personally reviewed and interpreted this imaging study as follows: Imaging: X-Ray My impression: no acute findings foot xray Sign Out Sign Out Data: Sign Out Comment: Patient pending review of radiological imaging and disposition for injury to right hand and left foot. Last updated by Kenton Irene NP at 02/16/22 23:26 Discharge Plan Disposition Patient Disposition: HOME Condition: Stable Discharge Details Clinical Impression: Contusion of hand, right, Contusion of foot, left Primary Care Provider: Randy Willingham ED Provider: Miguel May Home Meds and New Rx's Prescriptions: Continued melatonin 3 mg tablet 3 - 5 mg PO HS 0RF Rx Instructions: 1-2 tabs (3-6 mg) po at hs albuterol sulfate 90 mcg/actuation HFA aerosol inhaler 1 inh IH ONCE 0RF omeprazole 20 mg capsule,delayed release(DR/EC) 20 mg PO DAILY 0RF loratadine 10 mg capsule 10 mg PO DAILY 0RF VSL#3 112.5 billion cell capsule 1 cap PO DAILY Qty: 30 12RF Label Comments: takes gummies labetalol 100 mg tablet 50 mg PO DAILY 0RF Digestive Advantage Prob Gummy 250 million cell tablet,chewable 250 cell PO DAILY 0RF medroxyprogesterone [Depo-Provera] 150 mg/mL syringe 150 mg IM every 3 months Qty: 1 5RF Rx Instructions: bring syringe to [facility] for administration. quetiapine [Seroquel] 25 mg tablet 25 mg PO BID 0RF fluoxetine 10 mg capsule 10 mg PO DAILY 0RF clonidine HCl [Catapres] 0.2 MG tablet 0.2 mg PO HS 0RF acetaminophen 500 mg Tablet 1,000 mg PO PRN [id number] Discharge Instructions Instructions: Contusion in Adults (ED) Additional Instructions: if pain continues in a week follow up with your primary care provider if you have severe worsening pain or feel more ill return to the emergency department
[2022-02-17 00:16] VITALS: PULSE 95; RESP 18; O2SAT 98
--- NOTE | 2022-02-17 01:24 | DI.VRAD_ITS ---
PROCEDURE INFORMATION: Exam: XR Left Foot Exam date and time: 02/16/2022 11:34 PM Age: 26 years old Clinical indication: Injury or trauma; Other: Dropped something on foot; Blunt trauma; Left; Injury date: 02/16/22 TECHNIQUE: Imaging protocol: XR Left foot. Views: 3 or more views. COMPARISON: No relevant prior studies available. FINDINGS: Bones/joints: Normal. Soft tissues: Question mild dorsal soft tissue swelling. IMPRESSION: Question mild dorsal soft tissue swelling. Dictated and Authenticated by: Miguel Crowder MD. Ordering:MARIA LUISA Fung MD
--- NOTE | 2022-02-17 01:25 | DI.VRAD_ITS ---
PROCEDURE INFORMATION: Exam: XR Right Hand Exam date and time: 02/16/2022 11:28 PM Age: 26 years old Clinical indication: Injury or trauma; Other: Punched a wall; Blunt trauma (contusions or hematomas); Hand; Right; Injury date: 02/16/22 TECHNIQUE: Imaging protocol: XR Right hand. Views: 3 or more views. COMPARISON: CR XR HAND RT COMPLETE 02/02/2022 4:03 PM FINDINGS: Bones/joints: Normal. Soft tissues: Normal. IMPRESSION: No acute findings. Dictated and Authenticated by: Miguel Crowder MD. Ordering:MARIA LUISA Fung MD
== END 2022-02-17 00:16 | disposition home or self-care (01) ==
PROVIDERS: Emergency Provider Emergency Medicine; PCP Physician Assistant Medical
DX: S60.221A Contusion of right hand, initial encounter (principal); W22.09XA Striking against other stationary object, initial encounter; S90.32XA Contusion of left foot, initial encounter; W20.8XXA Other cause of strike by thrown, projected or falling object, initial encounter
CPT/HCPCS: 99283; 73130; 73630; 99282

== ENCOUNTER 2022-04-16 20:20 | Emergency (ER) | payer MEDICAID, SELFPAY ==
[2022-04-16 20:27] VITALS: BP 153/88; PULSE 96; RESP 18; TEMP 36.8; O2SAT 98
[2022-04-16 21:34] LABS: Bilirubin Negative (Negative); Blood Negative (Negative); Clarity Clear (Clear); Glucose Negative (Negative); Ketones Negative (Negative); Leukocyte Esterase Trace (Negative); Nitrite Negative (Negative); Specific Gravity 1.025 (1.005-1.025); Urobilinogen 0.2 EU/dL (Up TO 0.2)
--- NOTE | 2022-04-16 21:35 | W.ED.GENAD ---
Discharge Plan Disposition Patient Disposition: HOME Condition: Stable Discharge Details Clinical Impression: Abdominal pain, Constipation, UTI (urinary tract infection) Primary Care Provider: Randy Willingham ED Provider: Oswald Tripp Home Meds and New Rx's Prescriptions: New nitrofurantoin monohyd/m-cryst [Macrobid] 100 mg capsule 100 mg PO Q12H 7 Days Qty: 14 0RF Rx Instructions: must administer with a meal/food Continued melatonin 3 mg tablet 3 - 5 mg PO HS Rx Instructions: 1-2 tabs (3-6 mg) po at hs albuterol sulfate 90 mcg/actuation HFA aerosol inhaler 1 inh IH ONCE omeprazole 20 mg capsule,delayed release(DR/EC) 20 mg PO DAILY loratadine 10 mg capsule 10 mg PO DAILY VSL#3 112.5 billion cell capsule 1 cap PO DAILY Qty: 30 12RF Label Comments: takes gummies labetalol 100 mg tablet 50 mg PO DAILY Digestive Advantage Prob Gummy 250 million cell tablet,chewable 250 cell PO DAILY medroxyprogesterone [Depo-Provera] 150 mg/mL syringe 150 mg IM every 3 months Qty: 1 5RF Rx Instructions: bring syringe to [facility] for administration. quetiapine [Seroquel] 25 mg tablet 25 mg PO BID fluoxetine 10 mg capsule 10 mg PO DAILY clonidine HCl [Catapres] 0.2 MG tablet 0.2 mg PO HS acetaminophen 500 mg Tablet 1,000 mg PO PRN PRN Discharge Instructions Instructions: Abdominal Pain (ED), Constipation (ED), Urinary Tract Infection in Women (ED) Additional Instructions: Macrobid as directed. Plenty of fluids to avoid dehydration and this can make constipation worse. If you do not have a bowel movement in the next 12 hours and you can may take the other dose of mag citrate at home. Please watch for new or worsening symptoms and return to the ER for any concerns. Lastly, please contact your primary care provider on Tuesday to discuss your ER visit need for outpatient reevaluation. Medical Decision Making This is a 27-year-old female presenting to the ER for concerns of constipation, no bowel movement over the past 4 or 5 days, is taking Ducosate sodium once daily but states it is not helping. She also reports mild dysuria. Clinically she appears well, nontoxic, denies any vomiting, fever, back pain, vaginal bleeding or discharge. Denies history of abdominal surgeries. Plan is to obtain urinalysis and will also give a single dose of mag citrate now with a dose to go home for tomorrow morning. Her abdomen is soft, nontender, bowel sounds equal throughout, extremely low suspicion for small bowel obstruction, acute abdomen, etc. Urinalysis reveals trace leuk esterase, greater than 50 white cells, negative . Will provide 1 dose of Macrobid now. Discussed urinalysis with patient. She has no additional questions or concerns and is comfortable discharge at this time. Standard discharge and return precautions were provided. Patient understands, is agreeable to this plan, and has no additional questions or concerns upon discharge. This documentation was generated using [employer] system, please disregard any oddities of phrase or misspellings. Medical Records Medical records reviewed: Yes I reviewed the patient's medical records. Lab Data Lab results reviewed: Yes I reviewed the patient's lab results. Labs: 04/16/22 20:45 Urine - Reflex from Ua Urine Culture - Pending Laboratory Tests Range/Units 04/16/22 20:45 Urine Color (Yellow) Yellow Urine Clarity (Clear) Clear Urine pH (5-8) 7.0 Ur Specific [place] (1.005-1.025) 1.025 Urine Protein (Negative) mg/dL 30 H Urine Ketones (Negative) mg/dL Negative Urine Blood (Negative) Negative Urine Nitrite (Negative) Negative Urine Bilirubin (Negative) Negative Urine Urobilinogen (Up TO 0.2) EU/dL 0.2 Ur Leukocyte Esterase (Negative) Trace H Urine RBC (0-2) HPF 0-2 Urine WBC (0-5) HPF >50 H Ur Epithelial Cells (Negative) HPF Few Urine Crystals (Negative) HPF Negative Urine Bacteria (Negative) HPF Many Urine Casts (Negative) LPF Negative Urine Mucus (Negative) Negative Urine Other (Negative) Few Renal Ur Culture Indicated? Yes Urine Glucose (Negative) mg/dL Negative HPI General Mode of arrival: ambulatory. Date/Time Provider Initiated Documentation: 04/16/22 20:56. Limitations to Documentation: no limitations. Information obtained by: patient. History of Present Illness 27 year old F presents to the emergency department with the chief complaint of abd pain, constipation, described as moderate, with intensity rated at 4. Quality is described as aching, and is localized to the abdomen. Patient reports no radiation. Patient started experiencing this day(s) (5 but chronic in nature) and it has been constant. No relieving factors improve symptom(s), No exacerbating factors reported . Patient did receive the following treatments prior to arrival, other (ducosate) Related Data Home Medications Medication Instructions Recorded Confirmed clonidine HCl 0.2 mg tablet 0.2 mg PO HS 03/29/13 03/12/22 (Catapres) acetaminophen 500 mg tablet 1,000 mg PO PRN PRN 10/30/19 03/12/22 albuterol sulfate 90 mcg/actuation 1 inh inhalation ONCE 05/13/20 03/12/22 aerosol inhaler loratadine 10 mg capsule 10 mg PO DAILY 07/31/20 03/12/22 omeprazole 20 mg capsule,delayed 20 mg PO DAILY 07/31/20 03/12/22 release medroxyprogesterone 150 mg/mL 150 mg IM every 3 months #1 SYRG 09/21/21 03/12/22 intramuscular syringe (Depo-Provera) Bacillus coagulans 250 million 250 cell PO DAILY 09/25/21 03/12/22 cell chewable tablet (Digestive Advantage Probiotic Gummy) labetalol 100 mg tablet 50 mg PO DAILY 09/25/21 03/12/22 melatonin 3 mg tablet 3 - 5 mg PO HS 09/25/21 03/12/22 Lactobac no.2-Bifidobac no.1-S. 1 cap PO DAILY #30 caps 12/18/21 03/12/22 thermo 112.5 billion cell capsule (VSL#3) fluoxetine 10 mg capsule 10 mg PO DAILY 01/29/22 03/12/22 quetiapine 25 mg tablet (Seroquel) 25 mg PO BID 01/29/22 03/12/22 nitrofurantoin 100 mg PO Q12H 7 days #14 caps 04/16/22 monohydrate/macrocrystals 100 mg capsule (Macrobid) Previous Rx's Medication Instructions Recorded medroxyprogesterone 150 mg/mL 150 mg IM every 3 months #1 SYRG 09/21/21 intramuscular syringe (Depo-Provera) Lactobac no.2-Bifidobac no.1-S. 1 cap PO DAILY #30 caps 12/18/21 thermo 112.5 billion cell capsule (VSL#3) nitrofurantoin 100 mg PO Q12H 7 days #14 caps 04/16/22 monohydrate/macrocrystals 100 mg capsule (Macrobid) Allergies Allergy/AdvReac Type Severity Reaction Status Date / Time paroxetine HCl [From Paxil] Allergy Intermediate Hives Verified 04/16/22 20:31 risperidone [From Risperdal] Allergy Intermediate Hives Verified 04/16/22 20:31 NSAIDS (Non-Steroidal Allergy Due to Verified 04/16/22 20:31 Anti-Inflamma prior kidney damage amoxicillin AdvReac Nausea Verified 04/16/22 20:31 seafood Allergy Intermediate Uncoded 04/16/22 20:31 enviornmental Allergy Mild sneezing Uncoded 04/16/22 20:31 General Stated Complaint: Abd Prob MARY KAY: 4 Review of Systems Constitutional Constitutional: Denies fever(s) Cardiovascular Cardiovascular: Denies chest pain and Denies dyspnea Respiratory Respiratory: Denies dyspnea Gastrointestinal Gastrointestinal: Reports abdominal pain, Denies melena, Denies hematochezia, Denies constipation, Denies diarrhea, Denies nausea and Denies vomiting Genitourinary Genitourinary: Denies abnormal vaginal bleeding, Reports dysuria (Initially denied, then states mild) and Denies vaginal discharge Musculoskeletal Musculoskeletal: Denies back pain Integumentary/Breasts Skin/Breast: Denies rash PFSH All Active Problems (Updated 04/16/22 @ 22:15 by HARRISON Portillo) Abdominal pain (Acute) Constipation (Acute) UTI (urinary tract infection) (Acute) Hemorrhoids (Acute) SASHA (stress urinary incontinence, female) (Acute) Pain, dental (Acute) Dysuria (Acute) Vaginal discharge (Acute) Contraceptive management (Acute) Back contusion (Acute) Contusion of buttock (Acute) Blood in stool (Acute) Fall due to ice or snow (Acute) Pain, dental (Acute) Jaw pain (Acute) TMJ tenderness, left (Acute) Otalgia, right ear (Acute) BMI 40.0-44.9, adult (Chronic) Overactive bladder (Chronic 02/09/18) Kidney disease (Chronic 09/13/17) Secondary to UTIs as a child. 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 Patient is using the Depo-Provera for menstrual cycle control. ADHD (attention deficit hyperactivity disorder) (Chronic 12/31/16) Medical History Abdominal pain Back pain, acute Drug abuse, episodic use Hemolytic uremic syndrome History of allergic reaction History of mastoiditis Mesenteric lymphadenitis Nexplanon in place 01/21/17. for control of menses. PTSD (post-traumatic stress disorder) Surgical History History of kidney surgery Social History Smoking/Tobacco Use Status: Current-Occasional Tobacco Type: e-cigarettes Smoking risk assessment performed?: Yes Alcohol Intake: former Drug use: Never Substance use type: does not use Sexually active: No (has never been sexually active. ) What is your relationship status?: never Panel score (0-1 are the most socially isolated patients): 0 Do you feel safe at home: Yes Do you feel safe in your relationship?: Yes Female Reproductive History Menstrual control method: progesterone injection History History 0 Para Hx # Term Pregnancies Multiple births Hx # Pregnancies Ectopic pregnancies AB induced Hx Number of Living Children AB spontaneous Exam Const General: cooperative, healthy appearing, comfortable and no acute distress Orientation: alert and awake [facility] Head: normal to inspection, normocephalic and atraumatic Eyes General: appearance normal, both eyes and all related structures Conjunctivae: conjunctivae normal Neck Neck: normal visual inspection, full ROM, trachea midline and supple Resp Effort & Inspection: normal respiratory effort and able to speak in complete sentences Auscultation: clear to auscultation bilaterally Cardio Rate: regular rate Rhythm: regular rhythm GI Inspection: normal to inspection and obesity Palpation: soft, not firm, no guarding, no pulsatile masses and nontender Auscultation: normal bowel sounds Back/Spine/Pelvis Back: no CVA tenderness and No back tenderness Skin General skin exam: no rashes or lesions noted Neuro General: patient alert, patient awake, patient oriented x3, moves all extremities and no focal motor deficits Cognition: normal cognition Speech: speech normal Gait: normal gait Sensory Exam: no sensory deficits noted Psych Appearance: grossly normal Mental Status: mental status grossly normal Course Vital Signs Vital signs: Vital Signs Temperature 36.8 C 04/16/22 20:27 Pulse 96 H 04/16/22 20:27 Respiratory Rate 18 04/16/22 20:27 Blood Pressure 153/88 H 04/16/22 20:27 Pulse Oximetry 98 04/16/22 20:27 Temperature 36.8 C 04/16/22 20:27 Temperature Source Oral 04/16/22 20:27 Pulse 96 H 04/16/22 20:27 Respiratory Rate 18 04/16/22 20:27 Respiratory Effort Non-Labored 04/16/22 20:31 Blood Pressure 153/88 H 04/16/22 20:27 Pulse Oximetry 98 04/16/22 20:27 Pain Level 6 04/16/22 20:27 Lab/Test Results Lab/Test Results: POC- Test(urine) Negative
[2022-04-16] MEDS: Magnesium Citrate 300 ML BTL 150 ML PO (21:42)
[2022-04-16 21:43] LABS: Epithelial Cells Few HPF (Negative); RBC 0-2 HPF (0-2); WBC >50 HPF (0-5)
[2022-04-16 21:44] LABS: Bacteria Many HPF (Negative); C & S Indicated? Yes; Casts Negative LPF (Negative); Crystals Negative HPF (Negative); Mucus Negative (Negative); Other Cells Few Renal (Negative)
[2022-04-16] MEDS: MacroBID 100 MG CAP PO (22:06)
[2022-04-16 22:23] VITALS: BP 130/82; PULSE 70; RESP 18; TEMP 37; O2SAT 97
== END 2022-04-16 22:24 | disposition home or self-care (01) ==
PROVIDERS: Emergency Provider Physician Assistant; PCP Physician Assistant Medical
DX: R10.9 Unspecified abdominal pain (principal); K59.00 Constipation, unspecified; N39.0 Urinary tract infection, site not specified
CPT/HCPCS: 81025; 99283; 81003; 81015; 87086

== ENCOUNTER 2022-04-19 12:49 | Emergency (ER) | payer MEDICAID, SELFPAY ==
[2022-04-19 12:54] VITALS: BP 142/98; PULSE 86; RESP 17; TEMP 36.6; O2SAT 97
--- NOTE | 2022-04-19 14:08 | W.ED.GENAD ---
Discharge Plan Disposition Patient Disposition: OTHER Discharge Details Clinical Impression: Dysuria Primary Care Provider: Randy Willingham ED Provider: Kindra Solis Home Meds and New Rx's Prescriptions: No Action melatonin 3 mg tablet 3 - 5 mg PO HS Rx Instructions: 1-2 tabs (3-6 mg) po at hs albuterol sulfate 90 mcg/actuation HFA aerosol inhaler 1 inh IH ONCE omeprazole 20 mg capsule,delayed release(DR/EC) 20 mg PO DAILY loratadine 10 mg capsule 10 mg PO DAILY VSL#3 112.5 billion cell capsule 1 cap PO DAILY Qty: 30 12RF Label Comments: takes gummies labetalol 100 mg tablet 50 mg PO DAILY Digestive Advantage Prob Gummy 250 million cell tablet,chewable 250 cell PO DAILY medroxyprogesterone [Depo-Provera] 150 mg/mL syringe 150 mg IM every 3 months Qty: 1 5RF Rx Instructions: bring syringe to [facility] administration. quetiapine [Seroquel] 25 mg tablet 25 mg PO BID fluoxetine 10 mg capsule 10 mg PO DAILY clonidine HCl [Catapres] 0.2 MG tablet 0.2 mg PO HS acetaminophen 500 mg Tablet 1,000 mg PO PRN PRN Discharge Data Discharge Date/Time-TO BE ENTERED AT DEPARTURE: 04/19/22 15:18 Medical Decision Making Shannon Barajas is a 27-year-old woman with history of asthma, PTSD presenting to the emergency department with dysuria. Patient reports that she was seen here on 04/16/2022 for dysuria, was diagnosed with urinary tract infection and was prescribed antibiotics. Patient reports that she has been taking antibiotics as prescribed, but has continued burning with urination. She describes burning with urination as pain in her external genitalia. She denies vaginal discharge. She reports mild suprapubic pain that is worse when she urinates. She denies any other pain, fever, vomiting, diarrhea, cough, shortness of breath, numbness, weakness, rash. Patient reports that she has not had similar symptoms in the past. She states that she is sexually active. Has been eating and drinking as usual. Concern for UTI versus STD, yeast infection, possible lesion of external genitalia irritated by urination, other. Doubt PID. Exam/history at this time not consistent with sepsis, acute emergent intra-abdominal process. Cultures 04/16/2022 reviewed, shows probable collection contamination. Plan for UA, urine test, pelvic exam. UA negative, test negative. Patient states that she does not know if she can wait to have pelvic exam performed as her ride is here. I encouraged patient to have pelvic exam performed for further evaluation/treatment. Patient is amenable. I was notified by nursing that patient had eloped from the emergency department. Medical Records Medical records reviewed: Yes I reviewed the patient's medical records. Lab Data Lab results reviewed: Yes I reviewed the patient's lab results. Labs: Laboratory Tests Range/Units 04/19/22 14:15 Urine Color (Yellow) Yellow Urine Clarity (Clear) Clear Urine pH (5-8) 7.0 Ur Specific [place] (1.005-1.025) 1.015 Urine Protein (Negative) mg/dL Negative Urine Ketones (Negative) mg/dL Negative Urine Blood (Negative) Negative Urine Nitrite (Negative) Negative Urine Bilirubin (Negative) Negative Urine Urobilinogen (Up TO 0.2) EU/dL 0.2 Ur Leukocyte Esterase (Negative) Negative Urine Glucose (Negative) mg/dL Negative HPI General Mode of arrival: ambulatory. Date/Time Provider Initiated Documentation: 04/19/22 13:18. Limitations to Documentation: no limitations. Information obtained by: patient, RN notes reviewed and old records reviewed. HPI Narrative: Shannon Barajas is a 27-year-old woman with history of asthma, PTSD presenting to the emergency department with dysuria. Patient reports that she was seen here on 04/16/2022 for dysuria, was diagnosed with urinary tract infection and was prescribed antibiotics. Patient reports that she has been taking antibiotics as prescribed, but has continued burning with urination. She describes burning with urination as pain in her external genitalia. She denies vaginal discharge. She reports mild suprapubic pain that is worse when she urinates. She denies any other pain, fever, vomiting, diarrhea, cough, shortness of breath, numbness, weakness, rash. Patient reports that she has not had similar symptoms in the past. She states that she is sexually active. Has been eating and drinking as usual. Related Data Home Medications Medication Instructions Recorded Confirmed clonidine HCl 0.2 mg tablet 0.2 mg PO HS 03/29/13 04/19/22 (Catapres) acetaminophen 500 mg tablet 1,000 mg PO PRN PRN 10/30/19 04/19/22 albuterol sulfate 90 mcg/actuation 1 inh inhalation ONCE 05/13/20 04/19/22 aerosol inhaler loratadine 10 mg capsule 10 mg PO DAILY 07/31/20 04/19/22 omeprazole 20 mg capsule,delayed 20 mg PO DAILY 07/31/20 04/19/22 release medroxyprogesterone 150 mg/mL 150 mg IM every 3 months #1 SYRG 09/21/21 04/19/22 intramuscular syringe (Depo-Provera) Bacillus coagulans 250 million 250 cell PO DAILY 09/25/21 04/19/22 cell chewable tablet (Digestive Advantage Probiotic Gummy) labetalol 100 mg tablet 50 mg PO DAILY 09/25/21 04/19/22 melatonin 3 mg tablet 3 - 5 mg PO HS 09/25/21 04/19/22 Lactobac no.2-Bifidobac no.1-S. 1 cap PO DAILY #30 caps 12/18/21 04/19/22 thermo 112.5 billion cell capsule (VSL#3) fluoxetine 10 mg capsule 10 mg PO DAILY 01/29/22 04/19/22 quetiapine 25 mg tablet (Seroquel) 25 mg PO BID 01/29/22 04/19/22 Previous Rx's Medication Instructions Recorded medroxyprogesterone 150 mg/mL 150 mg IM every 3 months #1 SYRG 09/21/21 intramuscular syringe (Depo-Provera) Lactobac no.2-Bifidobac no.1-S. 1 cap PO DAILY #30 caps 12/18/21 thermo 112.5 billion cell capsule (VSL#3) Allergies Allergy/AdvReac Type Severity Reaction Status Date / Time paroxetine HCl [From Paxil] Allergy Intermediate Hives Verified 04/19/22 22:19 risperidone [From Risperdal] Allergy Intermediate Hives Verified 04/19/22 22:19 NSAIDS (Non-Steroidal Allergy Due to Verified 04/20/22 01:05 Anti-Inflamma prior kidney damage acetaminophen AdvReac Nausea Unverified 04/20/22 01:05 amoxicillin AdvReac Nausea Verified 04/19/22 22:19 seafood Allergy Intermediate Uncoded 04/19/22 22:19 enviornmental Allergy Mild sneezing Uncoded 04/19/22 22:19 General Stated Complaint: Urinary MARY KAY: 4 Review of Systems Narrative: Constitutional: denies fevers Eyes: denies eye pain ENT: denies ear pain, dental pain, sore throat Cardiovascular: denies chest pain Respiratory: denies SOB, cough GI: denies abdominal pain, vomiting, diarrhea : denies flank pain, hematuria, reports dysuria, suprapubic pain MSK: denies back pain, neck pain, arthralgias, myalgias Skin: denies rash Neuro: denies headaches, numbness, weakness PFSH All Active Problems (Updated 04/26/22 @ 16:30 by Kindra Solis MD) Abdominal pain (Acute) Constipation (Acute) UTI (urinary tract infection) (Acute) Vomiting (Acute) Abdominal pain, left lower quadrant (Acute) Dysuria (Acute) Hemorrhoids (Acute) SASHA (stress urinary incontinence, female) (Acute) Pain, dental (Acute) Dysuria (Acute) Vaginal discharge (Acute) Contraceptive management (Acute) Back contusion (Acute) Contusion of buttock (Acute) Blood in stool (Acute) Fall due to ice or snow (Acute) Pain, dental (Acute) Jaw pain (Acute) TMJ tenderness, left (Acute) Otalgia, right ear (Acute) BMI 40.0-44.9, adult (Chronic) Overactive bladder (Chronic 02/09/18) Kidney disease (Chronic 09/13/17) Secondary to UTIs as a child. 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 Patient is using the Depo-Provera for menstrual cycle control. ADHD (attention deficit hyperactivity disorder) (Chronic 12/31/16) Medical History Abdominal pain Back pain, acute Drug abuse, episodic use Hemolytic uremic syndrome History of allergic reaction History of mastoiditis Mesenteric lymphadenitis Nexplanon in place 01/21/17. for control of menses. PTSD (post-traumatic stress disorder) Surgical History History of kidney surgery Social History Smoking/Tobacco Use Status: Former Tobacco Use Smoking risk assessment performed?: Yes Alcohol Intake: current Alcohol Intake frequency: 0-2 drinks per day Drug use: Never Substance use type: does not use Sexually active: No (has never been sexually active. ) What is your relationship status?: never Panel score (0-1 are the most socially isolated patients): 0 Do you feel safe at home: Yes Do you feel safe in your relationship?: Yes Female Reproductive History Menstrual control method: progesterone injection History History 0 Para Hx # Term Pregnancies Multiple births Hx # Pregnancies Ectopic pregnancies AB induced Hx Number of Living Children AB spontaneous Exam Narrative Exam Narrative: Constitutional: well and [id number], pleasant, conversing normally HENT: head atraumatic/normocephalic/normal inspection, mucous membranes moist Eyes: conjunctiva normal, sclera normal, pupils 3mm b/l Neck: no stridor, normal ROM, trachea midline Resp: normal work of breathing, speaking full sentences Cardio: normal rate, normal rhythm GI: abdomen soft, non-tender, non-distended Skin: warm, dry, normal color, no rash Neuro: alert, not altered, grossly non-focal, normal tone Ext: no edema, moving all extremities equally Psych: normal mood, normal affect, normal behavior Course Vital Signs Vital signs: Vital Signs Temperature 36.6 C 04/19/22 12:54 Pulse 86 04/19/22 12:54 Respiratory Rate 17 04/19/22 12:54 Blood Pressure 142/98 H 04/19/22 12:54 Pulse Oximetry 97 04/19/22 12:54 Temperature 36.6 C 04/19/22 12:54 Temperature Source Temporal Artery Scan 04/19/22 12:54 Pulse 86 04/19/22 12:54 Respiratory Rate 17 04/19/22 12:54 Respiratory Effort Non-Labored 04/19/22 12:58 Blood Pressure 142/98 H 04/19/22 12:54 Blood Pressure Position Sitting 04/19/22 12:54 Pulse Oximetry 97 04/19/22 12:54 Oxygen Delivery Method Room Air 04/19/22 12:54 Oxygen Flow Rate 0 04/19/22 12:54 Pain Level 8 04/19/22 12:58 Lab/Test Results Lab/Test Results: POC- Test(urine) Negative
[2022-04-19 14:16] VITALS: BP 139/92; PULSE 90; RESP 18; O2SAT 100
[2022-04-19 14:20] LABS: Bilirubin Negative (Negative); Blood Negative (Negative); Clarity Clear (Clear); Glucose Negative (Negative); Ketones Negative (Negative); Leukocyte Esterase Negative (Negative); Nitrite Negative (Negative); Specific Gravity 1.015 (1.005-1.025); Urobilinogen 0.2 EU/dL (Up TO 0.2)
== END 2022-04-19 15:18 | disposition other institution (70) ==
LOC: ER 12:54
PROVIDERS: Emergency Provider Student in an Organized Health Care Education/Training Program; PCP Physician Assistant Medical
DX: R30.0 Dysuria (principal)
CPT/HCPCS: 81025; 99282; 81003

== ENCOUNTER 2022-04-19 22:03 | Emergency (ER) | payer MEDICAID, SELFPAY ==
[2022-04-19 22:13] VITALS: BP 141/96; PULSE 124; RESP 18; TEMP 37.1; O2SAT 95
--- NOTE | 2022-04-19 22:18 | ED.GENADUL_ITS ---
Discharge Plan Discharge Details Chief Complaint: Nausea/Vomit/Diar Primary Care Provider: Randy Willingham ED Provider: Douglas Gamez Home Meds and New Rx's Prescriptions: No Action melatonin 3 mg tablet 3 - 5 mg PO HS Rx Instructions: 1-2 tabs (3-6 mg) po at hs albuterol sulfate 90 mcg/actuation HFA aerosol inhaler 1 inh IH ONCE omeprazole 20 mg capsule,delayed release(DR/EC) 20 mg PO DAILY loratadine 10 mg capsule 10 mg PO DAILY VSL#3 112.5 billion cell capsule 1 cap PO DAILY Qty: 30 12RF Label Comments: takes gummies labetalol 100 mg tablet 50 mg PO DAILY Digestive Advantage Prob Gummy 250 million cell tablet,chewable 250 cell PO DAILY medroxyprogesterone [Depo-Provera] 150 mg/mL syringe 150 mg IM every 3 months Qty: 1 5RF Rx Instructions: bring syringe to [facility] administration. quetiapine [Seroquel] 25 mg tablet 25 mg PO BID fluoxetine 10 mg capsule 10 mg PO DAILY clonidine HCl [Catapres] 0.2 MG tablet 0.2 mg PO HS nitrofurantoin monohyd/m-cryst [Macrobid] 100 mg capsule 100 mg PO Q12H 7 Days Qty: 14 0RF Rx Instructions: must administer with a meal/food acetaminophen 500 mg Tablet 1,000 mg PO PRN PRN Medical Decision Making This is a 27-year-old female with a past medical history of PTSD, asthma, recent diagnosis of urinary tract infection in the past week currently on Macrobid, who presents today for vomiting. Patient states that she has been vomiting for the last 24 hours. She has noted small amount of blood speckling in the most recent episodes. She denies any severe diarrhea or bloody diarrhea. She has had 1 or 2 episodes of slightly loose stool though. She admits to burning in the epigastric region but denies any other significant abdominal pain. She denies any other sick contacts. She was here earlier in the day at [facility] emergency department but left/eloped prior to being assessed. She has no other complaints at this time. She denies any chest pain or shortness of breath. She has been taking her normal home medications, including her home omeprazole. Exam demonstrates no signs of an acute surgical abdomen. Mild epigastric achiness, but no significant pain. Dry mucous membranes. Differential is highest for gastroenteritis, or mild gastric ulcer. Will give GI cocktail, Protonix and omeprazole, Zofran, rehydrate, monitor closely and reassess. No indication for emergent CT scan at this time based on exam, history. Symptoms inconsistent with obstruction clinically. HPI General Date/Time Provider Initiated Documentation: 04/19/22 22:04 . HPI Narrative: This is a 27-year-old female with a past medical history of PTSD, asthma, recent diagnosis of urinary tract infection in the past week currently on Macrobid, who presents today for vomiting. Patient states that she has been vomiting for the last 24 hours. She has noted small amount of blood speckling in the most recent episodes. She denies any severe diarrhea or bloody diarrhea. She has had 1 or 2 episodes of slightly loose stool though. She admits to burning in the epigastric region but denies any other significant abdominal pain. She denies any other sick contacts. She was here earlier in the day at the emergency department but left/eloped prior to being assessed. She has no other complaints at this time. She denies any chest pain or shortness of breath. She has been taking her normal home medications, including her home omeprazole. Related Data Home Medications Medication Instructions Recorded Confirmed clonidine HCl 0.2 mg tablet 0.2 mg PO HS 03/29/13 04/19/22 (Catapres) acetaminophen 500 mg tablet 1,000 mg PO PRN PRN 10/30/19 04/19/22 albuterol sulfate 90 mcg/actuation 1 inh inhalation ONCE 05/13/20 04/19/22 aerosol inhaler loratadine 10 mg capsule 10 mg PO DAILY 07/31/20 04/19/22 omeprazole 20 mg capsule,delayed 20 mg PO DAILY 07/31/20 04/19/22 release medroxyprogesterone 150 mg/mL 150 mg IM every 3 months #1 SYRG 09/21/21 04/19/22 intramuscular syringe (Depo-Provera) Bacillus coagulans 250 million 250 cell PO DAILY 09/25/21 04/19/22 cell chewable tablet (Digestive Advantage Probiotic Gummy) labetalol 100 mg tablet 50 mg PO DAILY 09/25/21 04/19/22 melatonin 3 mg tablet 3 - 5 mg PO HS 09/25/21 04/19/22 Lactobac no.2-Bifidobac no.1-S. 1 cap PO DAILY #30 caps 12/18/21 04/19/22 thermo 112.5 billion cell capsule (VSL#3) fluoxetine 10 mg capsule 10 mg PO DAILY 01/29/22 04/19/22 quetiapine 25 mg tablet (Seroquel) 25 mg PO BID 01/29/22 04/19/22 nitrofurantoin 100 mg PO Q12H 7 days #14 caps 04/16/22 04/19/22 monohydrate/macrocrystals 100 mg capsule (Macrobid) Previous Rx's Medication Instructions Recorded medroxyprogesterone 150 mg/mL 150 mg IM every 3 months #1 SYRG 09/21/21 intramuscular syringe (Depo-Provera) Lactobac no.2-Bifidobac no.1-S. 1 cap PO DAILY #30 caps 12/18/21 thermo 112.5 billion cell capsule (VSL#3) nitrofurantoin 100 mg PO Q12H 7 days #14 caps 04/16/22 monohydrate/macrocrystals 100 mg capsule (Macrobid) Allergies Allergy/AdvReac Type Severity Reaction Status Date / Time paroxetine HCl [From Paxil] Allergy Intermediate Hives Verified 04/19/22 22:19 risperidone [From Risperdal] Allergy Intermediate Hives Verified 04/19/22 22:19 NSAIDS (Non-Steroidal Allergy Due to Verified 04/19/22 22:19 Anti-Inflamma prior kidney damage amoxicillin AdvReac Nausea Verified 04/19/22 22:19 seafood Allergy Intermediate Uncoded 04/19/22 22:19 enviornmental Allergy Mild sneezing Uncoded 04/19/22 22:19 General Stated Complaint: Nausea/Vomit/Diar MARY KAY: 3 Review of Systems All systems reviewed & are unremarkable except as noted in HPI and below PFSH All Active Problems Abdominal pain (Acute) Constipation (Acute) UTI (urinary tract infection) (Acute) Hemorrhoids (Acute) SASHA (stress urinary incontinence, female) (Acute) Pain, dental (Acute) Dysuria (Acute) Vaginal discharge (Acute) Contraceptive management (Acute) Back contusion (Acute) Contusion of buttock (Acute) Blood in stool (Acute) Fall due to ice or snow (Acute) Pain, dental (Acute) Jaw pain (Acute) TMJ tenderness, left (Acute) Otalgia, right ear (Acute) BMI 40.0-44.9, adult (Chronic) Overactive bladder (Chronic 02/09/18) Kidney disease (Chronic 09/13/17) Secondary to UTIs as a child. 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 Patient is using the Depo- Provera for menstrual cycle control. ADHD (attention deficit hyperactivity disorder) (Chronic 12/31/16) Medical History Abdominal pain Back pain, acute Drug abuse, episodic use Hemolytic uremic syndrome History of allergic reaction History of mastoiditis Mesenteric lymphadenitis Nexplanon in place 01/21/17. for control of menses. PTSD (post-traumatic stress disorder) Surgical History History of kidney surgery Social History Smoking/Tobacco Use Status: Former Tobacco Use Smoking risk assessment performed?: Yes Alcohol Intake: current Alcohol Intake frequency: 0-2 drinks per day Drug use: Never Substance use type: does not use Sexually active: No (has never been sexually active. ) What is your relationship status?: never Panel score (0-1 are the most socially isolated patients): 0 Do you feel safe at home: Yes Do you feel safe in your relationship?: Yes Female Reproductive History Menstrual control method: progesterone injection History History 0 Para Hx # Term Pregnancies Multiple births Hx # Pregnancies Ectopic pregnancies AB induced Hx Number of Living Children AB spontaneous Exam Narrative Exam Narrative: 1.Const: Well-nourished, Well-developed, appearing stated age 2.Eyes: PERRL, no conjunctival injection, and symmetrical lids. 3.ENT: Atraumatic external nose and ears. Moist MM. Neck: Symmetric, trachea midline, No thyromegaly. 4.CVS: +S1/S2, No murmurs or gallops. Peripheral pulses 2+ and equal in all extremities. Brisk capillary refill in all extremities. 5.RESP: Unlabored respiratory effort. Clear to auscultation bilaterally. No wheezes rales or rhonchi 6.GI: Soft, Nontender/Nondistended, No hepatosplenomegaly. No guarding or rebound. No pain to McBurney's point. Negative Mortensen sign. 7.MSK: Normocephalic/Atraumatic, Extremities w/o deformity or ttp No cyanosis or clubbing, Normal movement of all extremities 8.Skin: Warm, Dry. No rashes or lesions. 9.Neuro: inner layer scrubber tender II-XII grossly intact. Sensation grossly intact, no focal neurologic deficits. 10.Psych: (AAO) x3. Appropriate mood and affect Course Vital Signs Vital signs: Vital Signs Temperature 37.1 C 04/19/22 22:13 Pulse 124 H 04/19/22 22:13 Respiratory Rate 18 04/19/22 22:13 Blood Pressure 141/96 H 04/19/22 22:13 Pulse Oximetry 95 04/19/22 22:13 Temperature 37.1 C 04/19/22 22:13 Pulse 124 H 04/19/22 22:13 Respiratory Rate 18 04/19/22 22:13 Blood Pressure 141/96 H 04/19/22 22:13 Blood Pressure Position Supine 04/19/22 22:13 Pulse Oximetry 95 04/19/22 22:13 Oxygen Delivery Method Room Air 04/19/22 22:13 Oxygen Flow Rate 0 04/19/22 22:13
[2022-04-19] MEDS: Famotidine 20 MG/2 ML VIAL IVP (22:43)
[2022-04-19] MEDS: Pantoprazole 40 MG VIAL IVP (22:43)
[2022-04-19] MEDS: Ondansetron 4 MG/2 ML VIAL IVP (22:43)
[2022-04-19] MEDS: Normal Saline 1,000 ML 1000 ML IV (22:43)
[2022-04-19 22:49] LABS: Abs Immature Grans 0.05 10^3/uL (0.0-0.06); Absolute Basophil Count 0.07 10^3/uL (0.0-0.2); Absolute Eosinophil Count 0.21 10^3/uL (0.0-0.7); Basophils % 0.5; Eosinophils % 1.5; HCT 42.6 % (36.0-46.0); HGB 13.6 g/dL (11.2-15.7); Immature Grans % 0.4; Lymphocytes % 22.5; MCH 24.4 pg (27.0-33.0); MCHC 31.9 % (32.0-36.0); MCV 77 fL (80-95); MPV 12.7 fL (8.0-11.0); Monocytes % 8.7; Neutrophils % 66.4; Platelet Count 316 10^3/uL (130-400); RBC 5.57 10^6/uL (3.93-5.22); RDW 14.4 % (11.7-14.6); RDW-SD 39.2 fL; WBC 13.84 10^3/uL (4.4-10.8)
[2022-04-19 22:50] LABS: Absolute Lymphocyte Count 3.11 10^3/uL (1.2-3.4); Absolute Neutrophil Count 9.19 10^3/uL (1.2-6.7)
[2022-04-19 23:01] LABS: ALT 25 U/L (14-59); AST 11 U/L (15-37); Albumin 4.1 g/dL (3.4-5.0); Alkaline Phosphatase 104 U/L (46-116); Anion Gap 10.4 mmol/L (3-11); BUN 8 mg/dL (7-18); Bilirubin, Total 0.2 mg/dL (0.2-1.0); CO2 24.6 mmol/L (21.0-32.0); CREATININE 0.8 mg/dL (0.55-1.02); Chloride 104 mmol/L (98-107); Glucose 105 mg/dL (74-106); Lipase 66 U/L (73-393); Potassium 3.9 mmol/L (3.5-5.1); Sodium 139 mmol/L (136-145); Total Protein 7.9 g/dL (6.4-8.2)
--- NOTE | 2022-04-19 23:30 | DI.CT_ITS ---
Exam(s) CT ABDOMEN PELVIS WO EXAM: CT ABDOMEN PELVIS WO CLINICAL HISTORY: LLQ abdominal pain. TECHNIQUE: Imaging Protocol: Axial computed tomography images with coronal and sagittal reformatted images were created and reviewed CONTRAST MATERIAL: Intravenous: none Oral: None COMPARISON: CT CT ABDOMEN PELVIS W from 11/20/2019 FINDINGS: VISUALIZED LUNG BASES: No nodules nor pleural effusions evident. ABDOMEN: There is no ascites. LIVER: There are no obvious focal hepatic lesions evident of this noninfused study. There is an [place] [employer] [place] of steatosis evident GALLBLADDER/BILIARY: No obvious gallbladder pathology. CBD is not dilated. PANCREAS: No evidence of pancreatic mass nor dilatation of the pancreatic duct. SPLEEN: Spleen size is upper normal. No intrasplenic lesions evident ADRENALS: There are no significant adrenal masses. KIDNEYS:No cysts evident. No solid renal masses. No calculi nor hydronephrosis. . ABDOMINAL AORTA: Abdominal aorta is not enlarged. LYMPH NODES: Although there are no large mesenteric masses, there are multiple minimally prominent me senteric lymph nodes noted, similar to previous. Also in the right lower quadrant (terminal ileum ap pears unremarkable). No obvious appendicitis. ABDOMINAL WALL: No evidence of significant anterior abdominal wall nor inguinal hernia. GI: There is no evidence of bowel obstruction, free air, nor abscess. PELVIS: LYMPH NODES: Slightly prominent multiple lymph nodes in the right lower quadrant including the mesoap pendix. GI: No evidence of appendicitis.No evidence of sigmoid diverticulitis. URINARY BLADDER: No calculi nor obvious masses evident REPRODUCTIVE: Uterus unremarkable. Ovaries both exhibit upper normal size OSSEOUS: No significant osseous lesions. No fractures. Sacroiliac joints unremarkable. No evidence of sacroiliitis. IMPRESSION: 1. There are numerous enlarged lymph nodes scattered throughout the central mesentery and right lower quadrant, probably an element mesenteric adenitis. There are no large matted lymph node masses at t his time. No splenomegaly. 2. The appendix is unremarkable. 3. Hepatic steatosis. There is no ascites. RADIATION DOSE DELIVERED: 1,372mGy.cm Total DLP DATA REPOSITORY: All CT scans at this facility are submitted to the National Radiology Data Registry (NRDR) Dose Index Registry (DIR) with the [employer] (ACR). RADIATION OPTIMIZATION: All CT scans at this facility use at least one of these dose optimization te chniques: automated exposure control; mA and/or kV adjustment per patient size (includes targeted exa ms where dose is matched to clinical indication); or iterative reconstruction.
[2022-04-19 23:55] LABS: Bilirubin Negative (Negative); Blood Negative (Negative); Clarity Clear (Clear); Glucose Negative (Negative); Ketones Trace mg/dL (Negative); Leukocyte Esterase Negative (Negative); Nitrite Negative (Negative); Specific Gravity >= 1.030 (1.005-1.025); Urobilinogen 0.2 EU/dL (Up TO 0.2)
[2022-04-20] LABS: Bacteria Rare HPF (Negative); C & S Indicated? No; Crystals Negative HPF (Negative); Epithelial Cells Few HPF (Negative); Mucus Moderate (Negative); RBC 0-2 HPF (0-2); WBC 0-2 HPF (0-5)
--- NOTE | 2022-04-20 00:41 | ED.PROG_ITS ---
Date of service: 04/20/22 Time of Service: 00:41 Medical Decision Making Patient signed out to me pending results of her urinalysis and CT scan. Patient had presented with complaint of vomiting, upper abdominal burning and left lower quadrant pain. Seen primarily by Dr. Gamez. Laboratory studies unremarkable and patient treated with medicines for vomiting and acid reflux with improvement. Continued to have left lower quadrant pain so CT ordered. Urinalysis is negative. Urine negative. CT scan will mesenteric lymphadenopathy scattered throughout but no acute abnormalities. On speaking with patient this left lower quadrant pain is not new and is chronic and constant. Apparently takes a fair amount of Aleve at home which likely explains the vomiting and burning upper abdominal pain. Reports being on medications for acid reflux and have instructed patient to continue same. Follow-up with primary care in regards to her left lower quadrant pain. Avoid nonsteroidals if possible. Return precautions provided. Sign Out Sign Out Data: Sign Out Comment: Follow-up from CT scan and reassess Last updated by Douglas Gamez DO at 04/20/22 00:15 Discharge Plan Disposition Patient Disposition: HOME Condition: Improving Discharge Details Clinical Impression: Vomiting, Abdominal pain, left lower quadrant Primary Care Provider: Randy Willingham ED Provider: Alejandro Sepulveda [place] Meds and New Rx's Prescriptions: Continued melatonin 3 mg tablet 3 - 5 mg PO HS Rx Instructions: 1-2 tabs (3-6 mg) po at hs albuterol sulfate 90 mcg/actuation HFA aerosol inhaler 1 inh IH ONCE omeprazole 20 mg capsule,delayed release(DR/EC) 20 mg PO DAILY loratadine 10 mg capsule 10 mg PO DAILY VSL#3 112.5 billion cell capsule 1 cap PO DAILY Qty: 30 12RF Label Comments: takes gummies labetalol 100 mg tablet 50 mg PO DAILY Digestive Advantage Prob Gummy 250 million cell tablet,chewable 250 cell PO DAILY medroxyprogesterone [Depo-Provera] 150 mg/mL syringe 150 mg IM every 3 months Qty: 1 5RF Rx Instructions: [facility] quetiapine [Seroquel] 25 mg tablet 25 mg PO BID fluoxetine 10 mg capsule 10 mg PO DAILY clonidine HCl [Catapres] 0.2 MG tablet 0.2 mg PO HS nitrofurantoin monohyd/m-cryst [Macrobid] 100 mg capsule 100 mg PO Q12H 7 Days Qty: 14 0RF Rx Instructions: must administer with a meal/food acetaminophen 500 mg Tablet 1,000 mg PO PRN PRN Discharge Instructions Instructions: Acute Nausea and Vomiting (ED), Abdominal Pain (ED) Additional Instructions: Laboratory studies and imaging without significant findings to explain if continued left lower quadrant pain. Vomiting and upper abdominal burning likely related to use medications like Motrin and Aleve which are classified as nonsteroidals. Would avoid these if possible. You may use Tylenol if needed for pain. Follow-up with primary care as we discussed. Return to ED for new or worsening pain, persistent vomiting, fever, other concerns peer Referrals: Randy Willingham PA [Primary Care Provider] -
--- NOTE | 2022-04-20 01:52 | DI.VRAD_ITS ---
PROCEDURE INFORMATION: Exam: CT Abdomen And Pelvis Without Contrast Exam date and time: 04/19/2022 11:53 PM Age: 27 years old Clinical indication: Nausea and vomiting; Abdominal pain; Localized; Left lower quadrant (llq); Patient HX: Llq abd pain TECHNIQUE: Imaging protocol: Computed tomography of the abdomen and pelvis without contrast. Radiation optimization: All CT scans at this facility use at least one of these dose optimization techniques: automated exposure control; mA and/or kV adjustment per patient size (includes targeted exams where dose is matched to clinical indication); or iterative reconstruction. COMPARISON: CT ABDOMEN PELVIS W 11/20/2019 10:10 AM FINDINGS: Lungs: Lung bases clear. Liver: Diffuse hepatic steatosis with a parenchymal density of 30 Hounsfield units. Gallbladder and bile ducts: Normal appearing gallbladder. No calcified gallstones. No biliary dilatation. Pancreas: Grossly unremarkable unenhanced pancreas. Spleen: Grossly unremarkable unenhanced spleen. Adrenal glands: Normal appearing adrenal glands. Kidneys and ureters: Grossly unremarkable unenhanced kidneys. No radiopaque urinary tract stones, hydronephrosis, or evidence of recent stone passage. Stomach and bowel: No oral contrast. Stomach moderately distended with ingested material. No small bowel dilatation to suggest obstruction. Normal-appearing colon. No evidence of diverticulitis or colitis. Appendix: Normal appendix. Intraperitoneal space: No gross ascites or free air. Vasculature: Normal caliber abdominal aorta. Lymph nodes: Multiple scattered mildly prominent mesenteric lymph nodes, nonspecific. Clustered mildly prominent bilateral groin nodes. Scattered small retroperitoneal lymph nodes. Urinary bladder: Urinary bladder collapsed and not well evaluated but grossly unremarkable, as seen. Reproductive: Anteverted uterus, normal in size. Ovaries not well evaluated but normal in size and symmetric. Bones/joints: No acute fracture seen among the bones of the abdomen or pelvis. Soft tissues: No significant ventral or inguinal hernia. IMPRESSION: 1. Diffuse hepatic steatosis. 2. No acute bowel pathology demonstrated. 3. Numerous scattered mildly prominent mesenteric lymph nodes, nonspecific. Dictated and Authenticated by: Sergo Virgen MD. Ordering:DIO Cole MD
== END 2022-04-20 02:16 | disposition home or self-care (01) ==
PROVIDERS: Student in an Organized Health Care Education/Training Program; Emergency Provider Emergency Medicine; PCP Physician Assistant Medical
DX: R11.2 Nausea with vomiting, unspecified (principal); R10.32 Left lower quadrant pain
CPT/HCPCS: 80053; 81025; 83690; 96361; 96374; 96375; 99284; 74176; 81003; 81015; 85025; J2405

== ENCOUNTER 2022-04-29 13:50 | Outpatient (REF) | payer MEDICAID, SELFPAY ==
[2022-04-30 14:49] LABS: Chlamydia Result Negative (Negative); GC Result Negative (Negative)
== END 2022-04-29 13:51 | disposition home or self-care (01) ==
LOC: NCHCN 13:50
PROVIDERS: PCP Physician Assistant Medical; Visit Provider Nurse Practitioner Family
DX: N89.8 Other specified noninflammatory disorders of vagina (principal); Z11.3 Encounter for screening for infections with a predominantly sexual mode of transmission
CPT/HCPCS: 87491; 87591; 87480; 87510; 87660

== ENCOUNTER 2022-05-04 10:57 | Outpatient (CLI) | payer MEDICAID, SELFPAY ==
[2022-05-04 13:05] LABS: Abs Immature Grans 0.03 10^3/uL (0.0-0.06); Absolute Basophil Count 0.07 10^3/uL (0.0-0.2); Absolute Eosinophil Count 0.17 10^3/uL (0.0-0.7); Absolute Lymphocyte Count 2.23 10^3/uL (1.2-3.4); Absolute Monocyte Count 0.75 10^3/uL (0.1-0.8); Absolute Neutrophil Count 6.84 10^3/uL (1.2-6.7); Basophils % 0.7; Eosinophils % 1.7; HCT 41.3 % (36.0-46.0); HGB 13.1 g/dL (11.2-15.7); Immature Grans % 0.3; Lymphocytes % 22.1; MCH 24.3 pg (27.0-33.0); MCHC 31.7 % (32.0-36.0); MCV 77 fL (80-95); Monocytes % 7.4; Neutrophils % 67.8; Platelet Count 298 10^3/uL (130-400); RDW 14.6 % (11.7-14.6); RDW-SD 40.3 fL; WBC 10.09 10^3/uL (4.4-10.8)
[2022-05-04 13:10] LABS: ESR 32 mm/hr (0-20)
[2022-05-04 13:22] LABS: Diff Comment Diff Reviewed; RBC Morphology Normal
[2022-05-04 13:29] LABS: ALT 31 U/L (14-59); AST 20 U/L (15-37); Albumin 4.1 g/dL (3.4-5.0); Alkaline Phosphatase 100 U/L (46-116); Anion Gap 10.2 mmol/L (3-11); BUN 10 mg/dL (7-18); Bilirubin, Total 0.4 mg/dL (0.2-1.0); CO2 23.8 mmol/L (21.0-32.0); CREATININE 0.7 mg/dL (0.55-1.02); Calcium 9.4 mg/dL (8.5-10.1); Chloride 103 mmol/L (98-107); Glucose 88 mg/dL (74-106); Potassium 3.8 mmol/L (3.5-5.1); Sodium 137 mmol/L (136-145); TSH (W/Ref FT4) 2.61 uIU/mL (0.36-3.74); Total Protein 7.9 g/dL (6.4-8.2)
== END 2022-05-04 10:58 | disposition home or self-care (01) ==
LOC: LOS 10:57
PROVIDERS: PCP Physician Assistant Medical; Visit Provider Physician Assistant
DX: R10.30 Lower abdominal pain, unspecified (principal); F41.8 Other specified anxiety disorders; R39.89 Other symptoms and signs involving the genitourinary system; R70.0 Elevated erythrocyte sedimentation rate
CPT/HCPCS: 36415; 80053; 85652; 84443; 85025

== ENCOUNTER 2022-05-04 15:35 | Outpatient (REF) | payer MEDICAID, SELFPAY ==
[2022-05-04 13:46] LABS: Bilirubin Negative (Negative); Blood Negative (Negative); Clarity Clear (Clear); Glucose Negative (Negative); Ketones Negative (Negative); Leukocyte Esterase Negative (Negative); Nitrite Negative (Negative); Specific Gravity 1.025 (1.005-1.025); Urobilinogen 0.2 EU/dL (Up TO 0.2)
[2022-05-04 13:54] LABS: Bacteria Negative HPF (Negative); C & S Indicated? No; Casts 0-2 Hyaline LPF (Negative); Crystals Negative HPF (Negative); Epithelial Cells Few HPF (Negative); Mucus Trace (Negative); RBC Negative HPF (0-2); WBC Negative HPF (0-5)
== END 2022-05-04 15:36 | disposition home or self-care (01) ==
LOC: LBN 15:35
PROVIDERS: PCP Physician Assistant Medical; Visit Provider Physician Assistant
DX: R39.89 Other symptoms and signs involving the genitourinary system (principal); R10.9 Unspecified abdominal pain
CPT/HCPCS: 81003; 81015

== ENCOUNTER 2022-05-04 16:04 | Outpatient (REF) | payer MEDICAID, SELFPAY | END 2022-05-04 16:05 | disposition home or self-care (01) | LOC: NCHCN 16:04 | PROVIDERS: PCP Physician Assistant Medical; Visit Provider Physician Assistant ==

== ENCOUNTER 2022-05-08 20:22 | Emergency (ER) | payer MEDICAID, SELFPAY ==
[2022-05-08 20:23] VITALS: BP 163/97; PULSE 101; RESP 22; TEMP 35.8; O2SAT 98
--- NOTE | 2022-05-08 20:45 | DI.CT_ITS ---
Exam(s) CT ABDOMEN PELVIS WO EXAM: CT ABDOMEN PELVIS WO CLINICAL HISTORY: abdominal pain nausea vomiting back pain. TECHNIQUE: Imaging Protocol: Axial computed tomography images with coronal and sagittal reformatted images were created and reviewed CONTRAST MATERIAL: Intravenous: none Oral: None COMPARISON: CT CT ABDOMEN PELVIS WO from 04/19/2022 FINDINGS: VISUALIZED LUNG BASES: No nodules nor pleural effusions evident. ABDOMEN: There is no ascites. Again noted are multiple slightly prominent lymph nodes in the central mesenter y., ranging up to 1.3 cm size. No large mesenteric masses. LIVER: There are no obvious focal hepatic lesions evident of this noninfused study. GALLBLADDER/BILIARY: No obvious gallbladder pathology. CBD is not dilated. PANCREAS: No evidence of pancreatic mass nor dilatation of the pancreatic duct. SPLEEN: Spleen size is upper normal, unchanged. No intrasplenic lesions evident on this noninfused s tudy. ADRENALS: There are no significant adrenal masses. KIDNEYS:No cysts evident. No solid renal masses. No calculi nor hydronephrosis. . ABDOMINAL AORTA: Abdominal aorta is not enlarged. LYMPH NODES: As above. Similar previous study. ABDOMINAL WALL: No evidence of significant anterior abdominal wall nor inguinal hernia. GI: There is no evidence of bowel obstruction, free air, nor abscess. PELVIS: LYMPH NODES: No adenopathy around the aortic bifurcation nor along the iliac chains. Shoddy lymph no ragini are again noted in both inguinal regions. GI: No evidence of appendicitis.No evidence of sigmoid diverticulitis. URINARY BLADDER: No calculi nor obvious masses evident REPRODUCTIVE: Uterus and ovaries appear age-appropriate, unchanged. There is no free fluid in the de pendent aspect of the pelvis OSSEOUS: No significant osseous lesions. No fractures. Sacroiliac joints unremarkable. IMPRESSION: 1. Compared to the prior CT scan there again noted numerous slightly enlarged lymph nodes scattered t hroughout the central mesentery. No large matted lymph node masses evident at this time. Spleen siz e remains normal. 2. Also shoddy lymph nodes in both inguinal regions again noted. 3. Minimal if any significant change compared to the prior CT scan of 04/19/2022. RADIATION DOSE DELIVERED: 1,278.46mGy.cm Total DLP DATA REPOSITORY: All CT scans at this facility are submitted to the National Radiology Data Registry (NRDR) Dose Index Registry (DIR) with the [employer] ([employer]). RADIATION OPTIMIZATION: All CT scans at this facility use at least one of these dose optimization te chniques: automated exposure control; mA and/or kV adjustment per patient size (includes targeted exa ms where dose is matched to clinical indication); or iterative reconstruction.
--- NOTE | 2022-05-08 20:58 | DI.CT_ITS ---
Exam(s) CT THORACIC SPINE WO EXAM: CT THORACIC SPINE WO CLINICAL HISTORY: back pain, fall. TECHNIQUE: Imaging Protocol: Axial computed tomography images with coronal and sagittal reformatted images were created and reviewed. CONTRAST MATERIAL: None COMPARISON: No exams were available for comparison FINDINGS: THORACIC SPINAL COLUMN: No evidence of fracture nor listhesis. No significant disc space narrowing. No facet malalignment. No acute compromise of the thoracic spinal column. IMPRESSION: No significant findings on the CT scan of the thoracic spinal column. RADIATION DOSE DELIVERED: 747.53mGy.cm Total DLP DATA REPOSITORY: All CT scans at this facility are submitted to the National Radiology Data Registry (NRDR) Dose Index Registry (DIR) with the [employer] ([employer]). RADIATION OPTIMIZATION: All CT scans at this facility use at least one of these dose optimization te chniques: automated exposure control; mA and/or kV adjustment per patient size (includes targeted exa ms where dose is matched to clinical indication); or iterative reconstruction.
--- NOTE | 2022-05-08 20:58 | DI.RAD_ITS ---
Exam(s) XR CHEST 1V IN DI DEPT EXAM: XR CHEST 1V IN DI DEPT CLINICAL HISTORY: back pain, nausea. TECHNIQUE: 2D digital imaging was performed. COMPARISON: CR CHEST 2 VIEWS PA,LAT from 03/04/2018 FINDINGS: Single AP portable view. Heart size is upper normal. The mediastinum is not widened. Lungs are clear. No infiltrates nor obvious pleural effusions. IMPRESSION: No acute pulmonary findings on this single AP portable view of the chest. DATA REPOSITORY: RADIATION DOSE DELIVERED: All CT scans at this facility use at least one of these dose optimization techniques: automated exposure control; mA and/or kV adjustment per patient size (includes targeted e xams where dose is matched to clinical indication); or iterative reconstruction.
--- NOTE | 2022-05-08 21:01 | ED.GENADUL_ITS ---
Discharge Plan Disposition Patient Disposition: HOME Condition: Improving Discharge Details Clinical Impression: Back pain Primary Care Provider: Randy Willingham ED Provider: Zeb Mcguire Home Meds and New Rx's Prescriptions: No Action melatonin 3 mg tablet 3 - 5 mg PO HS Rx Instructions: 1-2 tabs (3-6 mg) po at hs albuterol sulfate 90 mcg/actuation HFA aerosol inhaler 1 inh IH ONCE omeprazole 20 mg capsule,delayed release(DR/EC) 20 mg PO DAILY loratadine 10 mg capsule 10 mg PO DAILY VSL#3 112.5 billion cell capsule 1 cap PO DAILY Qty: 30 12RF Label Comments: takes gummies labetalol 100 mg tablet 50 mg PO DAILY Digestive Advantage Prob Gummy 250 million cell tablet,chewable 250 cell PO DAILY medroxyprogesterone [Depo-Provera] 150 mg/mL syringe 150 mg IM every 3 months Qty: 1 5RF Rx Instructions: [facility] for [facility]. quetiapine [Seroquel] 25 mg tablet 25 mg PO BID fluoxetine 10 mg capsule 10 mg PO DAILY clonidine HCl [Catapres] 0.2 MG tablet 0.2 mg PO HS acetaminophen 500 mg Tablet 1,000 mg PO PRN PRN Discharge Instructions Instructions: Back Pain (ED) Additional Instructions: Please follow-up as scheduled for your endoscopy and colonoscopy. Please see your primary care physician in the next week. Return to the emergency department for worsening symptomatology. Medical Decision Making 27-year-old female history of recurrent abdominal discomfort of unknown etiology presents with recurrent abdominal pain as well as nausea vomiting and decreased p.o. intake, endorses falling today due to lack of energy in the setting of not eating much food, decreased urinary output, tachycardia on arrival appears moderately uncomfortable, has midline thoracic tenderness without crepitus or deformity moving all extremities no sensory deficits, alert oriented abdomen soft nontender nondistended nontoxic-appearing, consider back spasm versus contusion, will low suspicion for spinal cord compression or spinal fracture, must consider UTI with early pyelonephritis versus worsening mesenteric adenitis as patient was diagnosed with this recently at urgent care versus less likely cholecystitis or appendicitis versus viral syndrome versus foodborne illness versus psychiatric/somatization. Trial of fluids anxiolysis analgesia labs and imaging. Disposition pending results 23: 32 patient resting comfortably no acute distress no vomiting nonperitoneal hemodynamically stable labs and imaging unremarkable. Patient will follow-up as an outpatient for endoscopy and colonoscopy. HPI General Date/Time Provider Initiated Documentation: 05/08/22 20:26 . HPI Narrative: 27-year-old female presents with acute on chronic abdominal discomfort back discomfort, endorses multiple falls today due to fatigue related to decreased p.o. intake as she has not been able to eat due to her chronic abdominal pain, has had multiple visits and labs/imaging performed, is scheduled for an endoscopy and a colonoscopy. Denies chest pain or trouble breathing. Nausea without active vomiting currently. Related Data Home Medications Medication Instructions Recorded Confirmed clonidine HCl 0.2 mg tablet 0.2 mg PO HS 03/29/13 05/04/22 (Catapres) acetaminophen 500 mg tablet 1,000 mg PO PRN PRN 10/30/19 05/04/22 albuterol sulfate 90 mcg/actuation 1 inh inhalation ONCE 05/13/20 05/04/22 aerosol inhaler loratadine 10 mg capsule 10 mg PO DAILY 07/31/20 05/04/22 omeprazole 20 mg capsule,delayed 20 mg PO DAILY 07/31/20 05/04/22 release medroxyprogesterone 150 mg/mL 150 mg IM every 3 months #1 SYRG 09/21/21 05/04/22 intramuscular syringe (Depo-Provera) Bacillus coagulans 250 million 250 cell PO DAILY 09/25/21 05/04/22 cell chewable tablet (Digestive Advantage Probiotic Gummy) labetalol 100 mg tablet 50 mg PO DAILY 09/25/21 05/04/22 melatonin 3 mg tablet 3 - 5 mg PO HS 09/25/21 05/04/22 Lactobac no.2-Bifidobac no.1-S. 1 cap PO DAILY #30 caps 12/18/21 05/04/22 thermo 112.5 billion cell capsule (VSL#3) fluoxetine 10 mg capsule 10 mg PO DAILY 01/29/22 05/04/22 quetiapine 25 mg tablet (Seroquel) 25 mg PO BID 01/29/22 05/04/22 Previous Rx's Medication Instructions Recorded medroxyprogesterone 150 mg/mL 150 mg IM every 3 months #1 SYRG 09/21/21 intramuscular syringe (Depo-Provera) Lactobac no.2-Bifidobac no.1-S. 1 cap PO DAILY #30 caps 12/18/21 thermo 112.5 billion cell capsule (VSL#3) Allergies Allergy/AdvReac Type Severity Reaction Status Date / Time paroxetine HCl [From Paxil] Allergy Intermediate Hives Verified 05/04/22 09:36 risperidone [From Risperdal] Allergy Intermediate Hives Verified 05/04/22 09:36 NSAIDS (Non-Steroidal Allergy Due to Verified 05/04/22 09:36 Anti-Inflamma prior kidney damage acetaminophen AdvReac Nausea Unverified 05/04/22 09:36 amoxicillin AdvReac Nausea Verified 05/04/22 09:36 seafood Allergy Intermediate Uncoded 05/04/22 09:36 enviornmental Allergy Mild sneezing Uncoded 05/04/22 09:36 General Stated Complaint: Abd Prob MARY KAY: 3 Review of Systems Narrative: Review of Systems Constitutional: negative Eyes: negative ENT: negative Cardiovascular: negative Respiratory: negative Gastrointestinal: Abdominal pain nausea vomiting : negative Musculoskeletal: Back pain Skin: negative Neurologic: negative Psych: negative PFSH All Active Problems (Updated 05/08/22 @ 23:32 by Zeb Mcguire MD) Abdominal pain (Acute) Constipation (Acute) UTI (urinary tract infection) (Acute) Vomiting (Acute) Abdominal pain, left lower quadrant (Acute) Dysuria (Acute) Back pain (Acute) Hemorrhoids (Acute) SASHA (stress urinary incontinence, female) (Acute) Pain, dental (Acute) Dysuria (Acute) Vaginal discharge (Acute) Contraceptive management (Acute) Back contusion (Acute) Contusion of buttock (Acute) Blood in stool (Acute) Fall due to ice or snow (Acute) Pain, dental (Acute) Jaw pain (Acute) TMJ tenderness, left (Acute) Otalgia, right ear (Acute) BMI 40.0-44.9, adult (Chronic) Overactive bladder (Chronic 02/09/18) Kidney disease (Chronic 09/13/17) Secondary to UTIs as a child. 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 Patient is using the Depo- Provera for menstrual cycle control. ADHD (attention deficit hyperactivity disorder) (Chronic 12/31/16) Medical History Abdominal pain Back pain, acute Drug abuse, episodic use Hemolytic uremic syndrome History of allergic reaction History of mastoiditis Mesenteric lymphadenitis Nexplanon in place 01/21/17. for control of menses. PTSD (post-traumatic stress disorder) Surgical History History of kidney surgery Social History Smoking/Tobacco Use Status: Current every day Tobacco Type: e-cigarettes Smoking risk assessment performed?: Yes Alcohol Intake: former Drug use: Never Substance use type: does not use Details: PATIENT STARTED SHE STARTED VAPING AGAIN ON 05/06/22 DUE TO SEVERE DEPRESSION. Sexually active: No (has never been sexually active. ) What is your relationship status?: never Panel score (0-1 are the most socially isolated patients): 0 Do you feel safe at home: Yes Do you feel safe in your relationship?: Yes Female Reproductive History Menstrual control method: progesterone injection History History 0 Para Hx # Term Pregnancies Multiple births Hx # Pregnancies Ectopic pregnancies AB induced Hx Number of Living Children AB spontaneous Exam Narrative Exam Narrative: Physical Examination General: alert, awake, cooperative, appears moderately uncomfortable HEENT: normocephalic, atraumatic; PERRL, EOM intact, conjunctiva normal; no nasal discharge; moist mucous membranes, oral and pharyngeal mucosa normal, tolerating secretions Neck: supple, trachea midline; full ROM Chest: normal to inspection Respiratory: normal respiratory effort, speaking in full sentences, clear to auscultation, no wheezing, rales or rhonchi Cardiac: Tachycardia, regular rhythm, S1S2 intact, no murmurs rubs or gallops GI: abdomen soft, non-tender, non-distended; no palpable mass or hepatosplenomegaly Back: Patient does have point mid thoracic tenderness without crepitus or deformity Skin: no lesions, rashes or trauma appreciated Neuro: AAOx3, normal speech, moving all extremities Extremities: No trauma Psych: Tearful, anxious Course Vital Signs Vital signs: Vital Signs Temperature 35.8 C L 05/08/22 20:23 Pulse 101 H 05/08/22 20:23 Respiratory Rate 22 05/08/22 20:23 Blood Pressure 163/97 H 05/08/22 20:23 Pulse Oximetry 98 05/08/22 20:23 Temperature 35.8 C L 05/08/22 20:23 Temperature Source Temporal Artery Scan 05/08/22 20:23 Pulse 101 H 05/08/22 20:23 Respiratory Rate 22 05/08/22 20:23 Respiratory Effort 05/08/22 20:30 Blood Pressure 163/97 H 05/08/22 20:23 Blood Pressure Position Supine 05/08/22 20:23 Pulse Oximetry 98 05/08/22 20:23 Oxygen Delivery Method Room Air 05/08/22 20:23 Oxygen Flow Rate 0 05/08/22 20:23 Pain Level 11 05/08/22 20:30
[2022-05-08] MEDS: LORazepam 1 MG TAB PO (21:34)
[2022-05-08] MEDS: MORPHine 4 MG/ML SYR 2 MG IVP (21:36)
[2022-05-08] MEDS: Ondansetron 4 MG/2 ML VIAL IVP (21:37)
[2022-05-08 22:32] LABS: Abs Immature Grans 0.03 10^3/uL (0.0-0.06); Absolute Basophil Count 0.08 10^3/uL (0.0-0.2); Absolute Eosinophil Count 0.16 10^3/uL (0.0-0.7); Absolute Lymphocyte Count 2.69 10^3/uL (1.2-3.4); Absolute Monocyte Count 0.86 10^3/uL (0.1-0.8); Basophils % 0.7; Eosinophils % 1.4; HCT 42.1 % (36.0-46.0); HGB 13.4 g/dL (11.2-15.7); Immature Grans % 0.3; MCH 24.2 pg (27.0-33.0); MCHC 31.8 % (32.0-36.0); MCV 76 fL (80-95); MPV 12.6 fL (8.0-11.0); Monocytes % 7.7; Neutrophils % 65.9; Platelet Count 284 10^3/uL (130-400); RBC 5.54 10^6/uL (3.93-5.22); RDW 14.6 % (11.7-14.6); RDW-SD 39.9 fL; WBC 11.22 10^3/uL (4.4-10.8)
[2022-05-08 22:33] LABS: Absolute Neutrophil Count 7.39 10^3/uL (1.2-6.7)
[2022-05-08] MEDS: Normal Saline 1,000 ML 1000 ML IV (22:42)
[2022-05-08 22:52] LABS: ALT 28 U/L (14-59); AST 16 U/L (15-37); Alkaline Phosphatase 96 U/L (46-116); Anion Gap 10.4 mmol/L (3-11); BUN 8 mg/dL (7-18); Bilirubin, Total 0.3 mg/dL (0.2-1.0); CO2 22.6 mmol/L (21.0-32.0); CREATININE 0.8 mg/dL (0.55-1.02); Chloride 104 mmol/L (98-107); Glucose 117 mg/dL (74-106); Lipase 66 U/L (73-393); Potassium 3.5 mmol/L (3.5-5.1); Sodium 137 mmol/L (136-145); Total Protein 7.6 g/dL (6.4-8.2); Troponin I < 50 ng/L (<or=60)
--- NOTE | 2022-05-08 23:01 | DI.VRAD_ITS ---
PROCEDURE INFORMATION: Exam: CT Abdomen And Pelvis Without Contrast Exam date and time: 05/08/2022 22:30 Age: 27 years old Clinical indication: Abdominal pain; Other: Nausea TECHNIQUE: Imaging protocol: Computed tomography of the abdomen and pelvis without contrast. COMPARISON: CT ABDOMEN PELVIS WO 04/19/2022 23:53 FINDINGS: Liver: No hepatic masses on noncontrast imaging. Gallbladder and bile ducts: No calcified stones. No ductal dilation. Pancreas: No gross pathology in the pancreas on noncontrast imaging. Spleen: No splenomegaly or focal lesions. Adrenal glands: No mass. Kidneys and ureters: No nephrolithiasis or collecting system obstruction. Stomach and bowel: No gross pathology in the small bowel without IV contrast. No colitis or diverticular disease. Appendix: No evidence of appendicitis. Intraperitoneal space: No free air. No significant fluid collection. Vasculature: No abdominal aortic aneurysm. Lymph nodes: Minor densities in the root of the small bowel associated with mildly enlarged lymph nodes, which is similar to previous imaging. Suggests a nonspecific mesenteric edema or adenoiditis. Lymphoproliferative disease is not excluded. Follow-up as per institutional protocol. Urinary bladder: Unremarkable as visualized. Reproductive: Unremarkable as visualized. Bones/joints: No acute fracture. Soft tissues: No suspicious lesions. IMPRESSION: No acute findings on noncontrast imaging. Findings in the mesentery similar to prior as described above. Dictated and Authenticated by: Renetta Walton MD. Ordering:FILIPPO Carrington MD
--- NOTE | 2022-05-08 23:02 | DI.VRAD_ITS ---
PROCEDURE INFORMATION: Exam: XR Chest Exam date and time: 05/08/2022 22:36 Age: 27 years old Clinical indication: Other: Back pain, nausea TECHNIQUE: Imaging protocol: Radiologic exam of the chest. Views: 1 view. COMPARISON: CR CHEST 2 VIEWS PA,LAT 03/04/2018 16:20 FINDINGS: Lungs: No consolidation. Pleural spaces: No pleural effusion. No pneumothorax. Heart/Mediastinum: No cardiomegaly. Bones/joints: No acute fracture. IMPRESSION: Negative portable chest. Dictated and Authenticated by: Renetta Walton MD. Ordering:PPATRICIA Carrington MD
--- NOTE | 2022-05-08 23:03 | DI.VRAD_ITS ---
PROCEDURE INFORMATION: Exam: CT Thoracic Spine Without Contrast Exam date and time: 05/08/2022 22:33 Age: 27 years old Clinical indication: Injury or trauma; Fall; Blunt trauma (contusions or hematomas) TECHNIQUE: Imaging protocol: Computed tomography of the thoracic spine without contrast. COMPARISON: CT ABDOMEN PELVIS WO 05/08/2022 22:30 FINDINGS: Bones/joints: Exaggerated thoracic kyphosis. No acute fracture or subluxation. Discs/Spinal canal/Neural foramina: Disc spaces appear mildly narrowed for age. No significant associated stenosis. Soft tissues: No suspicious lesions. IMPRESSION: No acute bony pathology. Dictated and Authenticated by: Renetta Walton MD. Ordering:FILIPPO Carrington MD
[2022-05-08 23:43] LABS: Bilirubin Negative (Negative); Blood Negative (Negative); Clarity Clear (Clear); Glucose Negative (Negative); Ketones 15 mg/dL (Negative); Leukocyte Esterase Negative (Negative); Nitrite Negative (Negative); Specific Gravity >= 1.030 (1.005-1.025); Urobilinogen 0.2 EU/dL (Up TO 0.2); pH 6.5 (5-8)
[2022-05-08 23:57] LABS: *AMPHETAMINES SCREEN URINE Negative (Negative); *BARBITURATES SCREEN URINE Negative (Negative); *BENZODIAZEPINES SCREEN URINE Negative (Negative); Cannabinoids THC Negative (Negative); Cocaine Screen,Urine Negative (Negative); METHADONE URINE SCREEN Negative (Negative); OPIATES URINE SCREEN Negative (Negative)
[2022-05-08 23:58] LABS: Tricyclic Antidepressants Negative (Negative)
[2022-05-09 00:08] VITALS: BP 132/68; PULSE 88; RESP 18; TEMP 36.7; O2SAT 97
== END 2022-05-08 23:58 | disposition home or self-care (01) ==
PROVIDERS: Emergency Provider Emergency Medicine; PCP Physician Assistant Medical
DX: M54.6 Pain in thoracic spine (principal); R10.9 Unspecified abdominal pain; R11.2 Nausea with vomiting, unspecified; R00.0 Tachycardia, unspecified; F17.290 Nicotine dependence, other tobacco product, uncomplicated
CPT/HCPCS: 36415; 80053; 80307; 81025; 83690; 96361; 96374; 96375; 99284; 71045; 72128; 74176; 81003; 84484; 85025; J2270; J2405

== ENCOUNTER 2022-05-20 21:17 | Emergency (ER) | payer MEDICAID, SELFPAY ==
--- NOTE | 2022-05-20 21:15 | RT.EKG_ITS ---
APPROVED REPORT Exam: Resting ECG Reason for Exam: syncope Patient Location: E HR:102 bpm ECG Measurements Heart Rate 102 AXIS MI 149 P 33 QRSd 83 QRS 29 QT 404 T 26 QTc 525 Conclusion Sinus tachycardia...rate> 99 Physician: no stemi. stable
[2022-05-20 21:21] VITALS: BP 100/62; PULSE 109; RESP 18; TEMP 36.9; O2SAT 96
--- NOTE | 2022-05-20 21:28 | W.ED.GENAD ---
Discharge Plan Disposition Patient Disposition: HOME Condition: Good Discharge Details Clinical Impression: Nausea & vomiting Primary Care Provider: Randy Willingham ED Provider: Douglas Gamez Home Meds and New Rx's Prescriptions: Continued melatonin 3 mg tablet 3 - 5 mg PO HS Rx Instructions: 1-2 tabs (3-6 mg) po at hs albuterol sulfate 90 mcg/actuation HFA aerosol inhaler 1 inh IH ONCE omeprazole 20 mg capsule,delayed release(DR/EC) 20 mg PO DAILY loratadine 10 mg capsule 10 mg PO DAILY VSL#3 112.5 billion cell capsule 1 cap PO DAILY Qty: 30 12RF Label Comments: takes gummies labetalol 100 mg tablet 50 mg PO DAILY Digestive Advantage Prob Gummy 250 million cell tablet,chewable 250 cell PO DAILY docusate sodium 100 mg capsule 100 mg PO DAILY lidocaine 3.5 % adhesive patch,medicated topical peg 3350-electrolytes [Golytely] 236-22.74-6.74 -5.86 gram recon soln 240 ml PO Q10M Qty: 4000 0RF Rx Instructions: until fecal effluent is clear medroxyprogesterone [Depo-Provera] 150 mg/mL syringe 150 mg IM every 3 months Qty: 1 5RF Rx Instructions: bring syringe to [facility] for administration. quetiapine [Seroquel] 25 mg tablet 25 mg PO BID fluoxetine 10 mg capsule 10 mg PO DAILY clonidine HCl [Catapres] 0.2 MG tablet 0.2 mg PO HS acetaminophen 500 mg Tablet 1,000 mg PO PRN PRN Discharge Instructions Instructions: Acute Nausea and Vomiting (ED) Additional Instructions: At this time your laboratory work-up is very reassuring. I do suspect that you have notable irritation of your stomach, potentially from something that you ate, or from your chronic stomach irritation that you have had before. Please avoid any spicy foods, tomato-based foods, citrus foods, soda, or greasy foods for the next few days. Focus mainly on a bland diet of rice, crackers, bananas, and noodles. Take Pepto-Bismol or Tums as needed at home. Drink plenty of fluid to stay well-hydrated. If you notice any worsening of your symptoms, or any new symptoms such as vomiting, diarrhea, fever, chills, shortness of breath, chest pain, numbness, weakness, or fainting , please return immediately to the emergency department for reevaluation. Please follow up with your primary care provider as soon as possible for reassessment and reevaluation. As always, it was a pleasure participating in your medical care today. Referrals: Randy Willingham PA [Primary Care Provider] - Medical Decision Making This is a 27-year-old female with a past medical history of developmental delay, chronic abdominal pain and gastritis, previous kidney disease, gastric ulcers, ADHD, bipolar type II, PTSD, who presents today for evaluation of vomiting and diarrhea. Patient states that for the last 24 hours she has had 5-6 episodes of vomiting with occasional loose stools. She noticed occasional intermittent minimal speckling of blood in her vomit. She denies any bright red blood per rectum. She denies any dark or tarry stools. This evening she states that she was on video chat when she passed out. She does admit to some mild achiness in her head. She denies any other new soreness. She denies any new dietary changes. She denies any recent ibuprofen or Motrin. Patient does admit to mild generalized abdominal achiness. She states that it feels identical to her previous episodes. Review of multiple previous CAT scans demonstrate multiple redemonstration's of mesenteric adenitis. She denies any specific focality aside for stating that she feels like it is burning in the left upper quadrant. No other complaints at this time. No other modifying factors. She denies any history of seizures. Exam demonstrates well-appearing female with dry mucous membranes. Mild achiness in the left upper quadrant with associated complaint of burning in that area. Minimal achiness on the back of the head, no hematoma or depression. No midline cervical thoracic or lumbar spine tenderness. No evidence of an acute surgical abdomen whatsoever. Neurologic exam is normal with no signs or symptoms to suggest focal neurologic deficit. There are no meningeal signs on exam. Symptoms at this time appear concerning for gastroenteritis, which unfortunately has placed the patient quite frequently. Symptoms are inconsistent with appendicitis, volvulus, or small bowel obstruction. No indication for emergent imaging currently. I do suspect there is a component of gastritis/gastric ulcer also present. Will give Protonix, Zofran, Carafate, rehydrate, monitor closely and reassess. 11:24 PM On reassessment the patient is feeling well. Abdominal pain has resolved, she has tolerated p.o. well. Laboratory work-up is stable and unremarkable. She feels well and would like to go home. Repeat exam shows no signs of an acute surgical abdomen. Patient stable for discharge. Diagnosis likely gastroenteritis. Patient also admits that she did recently just have a Polish food just before her symptoms began. This may have certainly brought about her symptomatology. Recommend bland diet over the next week. She does have Tums and Pepto-Bismol at home. I have extensively reviewed the treatment plan and discharge instructions with the patient and their family. I have addressed all patient concerns at this time. The patient and family was made aware of what symptoms to monitor for that would warrant a return to the emergency department. Discussed the plan with the patient and family, they demonstrate verbal understanding and agreement with our assessment and plan at this time. The documentation in this chart was dictated using [employer] dictation software. Please excuse any dictation errors. HPI General Date/Time Provider Initiated Documentation: 05/20/22 21:25. HPI Narrative: This is a 27-year-old female with a past medical history of developmental delay, chronic abdominal pain and gastritis, previous kidney disease, gastric ulcers, ADHD, bipolar type II, PTSD, who presents today for evaluation of vomiting and diarrhea. Patient states that for the last 24 hours she has had 5-6 episodes of vomiting with occasional loose stools. She noticed occasional intermittent minimal speckling of blood in her vomit. She denies any bright red blood per rectum. She denies any dark or tarry stools. This evening she states that she was on video chat when she passed out. She does admit to some mild achiness in her head. She denies any other new soreness. She denies any new dietary changes. She denies any recent ibuprofen or Motrin. Patient does admit to mild generalized abdominal achiness. She states that it feels identical to her previous episodes. Review of multiple previous CAT scans demonstrate multiple redemonstration's of mesenteric adenitis. She denies any specific focality aside for stating that she feels like it is burning in the left upper quadrant. No other complaints at this time. No other modifying factors. She denies any history of seizures. Related Data Home Medications Medication Instructions Recorded Confirmed clonidine HCl 0.2 mg tablet 0.2 mg PO HS 03/29/13 05/20/22 (Catapres) acetaminophen 500 mg tablet 1,000 mg PO PRN PRN 10/30/19 05/20/22 albuterol sulfate 90 mcg/actuation 1 inh inhalation ONCE 05/13/20 05/20/22 aerosol inhaler loratadine 10 mg capsule 10 mg PO DAILY 07/31/20 05/20/22 omeprazole 20 mg capsule,delayed 20 mg PO DAILY 07/31/20 05/20/22 release medroxyprogesterone 150 mg/mL 150 mg IM every 3 months #1 SYRG 09/21/21 05/20/22 intramuscular syringe (Depo-Provera) Bacillus coagulans 250 million 250 cell PO DAILY 09/25/21 05/20/22 cell chewable tablet (Digestive Advantage Probiotic Gummy) labetalol 100 mg tablet 50 mg PO DAILY 09/25/21 05/20/22 melatonin 3 mg tablet 3 - 5 mg PO HS 09/25/21 05/20/22 Lactobac no.2-Bifidobac no.1-S. 1 cap PO DAILY #30 caps 12/18/21 05/20/22 thermo 112.5 billion cell capsule (VSL#3) fluoxetine 10 mg capsule 10 mg PO DAILY 01/29/22 05/20/22 quetiapine 25 mg tablet (Seroquel) 25 mg PO BID 01/29/22 05/20/22 docusate sodium 100 mg capsule 100 mg PO DAILY 05/17/22 05/20/22 lidocaine 3.5 % topical patch patch topical 05/17/22 05/20/22 peg 3350-electrolytes 236 240 ml PO Q10M #4,000 mL 05/20/22 gram-22.74 gram-6.74 gram-5.86 gram solution (Golytely) Previous Rx's Medication Instructions Recorded medroxyprogesterone 150 mg/mL 150 mg IM every 3 months #1 SYRG 09/21/21 intramuscular syringe (Depo-Provera) Lactobac no.2-Bifidobac no.1-S. 1 cap PO DAILY #30 caps 12/18/21 thermo 112.5 billion cell capsule (VSL#3) peg 3350-electrolytes 236 240 ml PO Q10M #4,000 mL 05/20/22 gram-22.74 gram-6.74 gram-5.86 gram solution (Golytely) Allergies Allergy/AdvReac Type Severity Reaction Status Date / Time fluticasone Allergy Severe Verified 05/20/22 23:01 [From Flovent HFA] lisinopril Allergy Intermediate Verified 05/20/22 23:01 paroxetine HCl [From Paxil] Allergy Intermediate Hives Verified 05/20/22 23:01 polyethylene glycol 3350 Allergy Intermediate Verified 05/20/22 23:01 [From Miralax] risperidone [From Risperdal] Allergy Intermediate Hives Verified 05/20/22 23:01 NSAIDS (Non-Steroidal Allergy Due to Verified 05/20/22 23:01 Anti-Inflamma prior kidney damage acetaminophen AdvReac Nausea Unverified 05/20/22 23:01 amoxicillin AdvReac Nausea Verified 05/20/22 23:01 seafood Allergy Intermediate Uncoded 05/20/22 23:01 enviornmental Allergy Mild sneezing Uncoded 05/20/22 23:01 General MARY KAY: 3 Review of Systems All systems reviewed & are unremarkable except as noted in HPI and below PFSH All Active Problems (Updated 05/20/22 @ 23:21 by Douglas Gamez DO) Nausea & vomiting (Acute) Family history of colon cancer (Acute) Mild mental slowing (Acute) Illiteracy (Acute) Rectal bleed (Acute) Vomiting (Acute) Abdominal pain, left lower quadrant (Acute) Hemorrhoids (Acute) Blood in stool (Acute) BMI 40.0-44.9, adult (Chronic) Kidney disease (Chronic 09/13/17) Secondary to UTIs as a child. 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 Patient is using the Depo-Provera for menstrual cycle control. Depression (12/31/16) Drug abuse, episodic use Dysuria Fall due to ice or snow Fatigue Generalized headaches (12/31/16) Hemolytic uremic syndrome History of allergic reaction History of mastoiditis Hypertrophy of tonsils and adenoids Jaw pain Mesenteric lymphadenitis Nexplanon in place 01/21/17. for control of menses. Otalgia, right ear Overactive bladder (02/09/18) Pain, dental PTSD (post-traumatic stress disorder) RBC microcytosis Steatosis of liver SASHA (stress urinary incontinence, female) Suicidal ideation TMJ tenderness, left UTI (urinary tract infection) Vaginal discharge Vitamin D deficiency Surgical History History of kidney surgery Social History Smoking/Tobacco Use Status: Current every day Tobacco Type: e-cigarettes Smoking risk assessment performed?: Yes Alcohol Intake: former Drug use: Socially Substance use type: marijuana Details: PATIENT STARTED SHE STARTED VAPING AGAIN ON 05/06/22 DUE TO SEVERE DEPRESSION. Pt states she last smoked marijuana last Tuesday (05/14/2022) Sexually active: No (has never been sexually active. ) What is your relationship status?: never Panel score (0-1 are the most socially isolated patients): 0 Do you feel safe at home: Yes Do you feel safe in your relationship?: Yes Female Reproductive History Menstrual control method: progesterone injection History History 0 Para Hx # Term Pregnancies Multiple births Hx # Pregnancies Ectopic pregnancies AB induced Hx Number of Living Children AB spontaneous Exam Narrative Exam Narrative: 1.Const: Well-nourished, Well-developed, appearing stated age 2.Eyes: PERRL, no conjunctival injection, and symmetrical lids. 3.ENT: Atraumatic external nose and ears. Dry MM. No evidence of tongue biting lesions neck: Symmetric, trachea midline, No thyromegaly. Patient demonstrates good movement of cervical neck. There is no nuchal rigidity, no nuchal tenderness. Patient is able to flex the neck without any difficulty or significant pain. Negative Kernig's and Brudzinski sign. Patient demonstrates intact dentition with no signs of tooth avulsion or fracture, no signs of jaw deformity, no evidence of a LeFort's fracture, with an intact palate, nose and orbital region. There is no evidence of a nasal septal hematoma. No proptosis. Jaw closes symmetrically. Airway is clear. There is no evidence of raccoon eyes, lantigua sign, CSF rhinorrhea, mastoid tenderness, cranial crepitus, hemotympanum, exophthalmos, or hyphema. 4.CVS: +S1/S2, No murmurs or gallops. Peripheral pulses 2+ and equal in all extremities. Brisk capillary refill in all extremities. 5.RESP: Unlabored respiratory effort. Clear to auscultation bilaterally. No wheezes rales or rhonchi 6.GI: Soft, nondistended, mild achiness throughout. No guarding. No rebound. No evidence of an acute surgical abdomen. Achiness seems to be focal in the left upper quadrant. 7.MSK: Normocephalic/Atraumatic, Extremities w/o deformity or ttp No cyanosis or clubbing, Normal movement of all extremities No midline tenderness to palpation over the CTLS spine. Normal ROM in flexion, extension, side bend, and rotation. Patient has +5 out of 5 strength in the lower extremities in dorsiflexion and plantarflexion, knee flexion and extension, hip flexion and extension. Normal strength for dorsiflexion and plantar flexion of the great toe bilaterally. There is +2 over 2 dorsalis pedis pulses bilaterally. There is normal sensation to the skin with light touch at the foot, knee, and hip. Normal saddle sensation. Good sensation over the deep sural nerve area bilaterally. Rectal exam deferred. Reflexes are +2 over 4 in the patellar reflex bilaterally. +5 out of 5 strength in the medial, ulnar, radial nerve distribution bilaterally in the hands as well as intact light touch sensation to these dermatomes on the hands 8.Skin: Warm, Dry. No rashes or lesions. 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 Sensation grossly intact, no focal neurologic deficits. All 6 cardinal planes of vision are fully intact. No evidence of rotatory or vertical nystagmus. The patient demonstrated a normal [id number], good dexterity. There was no evidence of dysdiadochokinesia. Patient was able to ambulate without difficulty. There was no wide-based gait. Romberg testing was normal. [id number] testing was normal. Sensation was intact bilaterally as well as muscle strength bilaterally for all extremities. Patient was able to verbalize butter cup with no slurring, or miss pronunciation. 10.Psych: (AAO) x3. Appropriate mood and affect
[2022-05-20] MEDS: Lactated Ringers 1,000 ML 1000 ML IV (22:03)
[2022-05-20 22:05] LABS: Abs Immature Grans 0.05 10^3/uL (0.0-0.06); Absolute Basophil Count 0.07 10^3/uL (0.0-0.2); Absolute Lymphocyte Count 2.14 10^3/uL (1.2-3.4); Absolute Monocyte Count 1.14 10^3/uL (0.1-0.8); Basophils % 0.5; Eosinophils % 1.4; HCT 40.6 % (36.0-46.0); Immature Grans % 0.4; Lymphocytes % 16.1; MCH 24.5 pg (27.0-33.0); MCV 77 fL (80-95); MPV 12.4 fL (8.0-11.0); Monocytes % 8.6; Platelet Count 278 10^3/uL (130-400); RBC 5.31 10^6/uL (3.93-5.22); RDW 14.6 % (11.7-14.6); RDW-SD 40.3 fL; WBC 13.31 10^3/uL (4.4-10.8)
[2022-05-20 22:06] LABS: Absolute Eosinophil Count 0.19 10^3/uL (0.0-0.7); Absolute Neutrophil Count 9.72 10^3/uL (1.2-6.7)
[2022-05-20] MEDS: Ondansetron 4 MG/2 ML VIAL IVP (22:12)
[2022-05-20] MEDS: Pantoprazole 40 MG VIAL IVP (22:14)
[2022-05-20 22:30] VITALS: PULSE 89; O2SAT 100
[2022-05-20] MEDS: Sucralfate 1 GM TAB PO (22:30)
[2022-05-20] MEDS: ACETAMINOPHEN 1,000 MG/100 ML BTL 400 MG IVPB (22:34)
[2022-05-20 23:10] LABS: ALT 27 U/L (14-59); AST 13 U/L (15-37); Albumin 4.1 g/dL (3.4-5.0); Alkaline Phosphatase 91 U/L (46-116); Anion Gap 13.2 mmol/L (3-11); BUN 17 mg/dL (7-18); Bilirubin, Total 0.2 mg/dL (0.2-1.0); CO2 22.8 mmol/L (21.0-32.0); CREATININE 0.8 mg/dL (0.55-1.02); Calcium 9.3 mg/dL (8.5-10.1); Chloride 104 mmol/L (98-107); Glucose 105 mg/dL (74-106); Lipase 65 U/L (73-393); Sodium 140 mmol/L (136-145); Total Protein 7.4 g/dL (6.4-8.2)
[2022-05-20 23:35] VITALS: BP 98/59; PULSE 86; RESP 18; O2SAT 96
== END 2022-05-20 23:13 | disposition home or self-care (01) ==
LOC: ER 23:22
PROVIDERS: Emergency Provider Student in an Organized Health Care Education/Training Program; PCP Physician Assistant Medical
DX: R11.2 Nausea with vomiting, unspecified (principal); R19.7 Diarrhea, unspecified; R10.12 Left upper quadrant pain; R51.9 Headache, unspecified; R68.2 Dry mouth, unspecified; F17.290 Nicotine dependence, other tobacco product, uncomplicated
CPT/HCPCS: 80053; 81025; 83690; 93005; 96361; 96374; 96375; 99284; 85025; 93010; J0131; J2405

== ENCOUNTER 2022-05-21 20:40 | Emergency (ER) | payer MEDICAID, SELFPAY ==
[2022-05-21 20:49] VITALS: BP 149/110; PULSE 101; RESP 22; TEMP 36.2
[2022-05-21] MEDS: Ondansetron O.D.T. 4 MG TABEF PO (21:49)
--- NOTE | 2022-05-21 22:45 | ED.GENADUL_ITS ---
Discharge Plan Disposition Patient Disposition: HOME Condition: Stable Discharge Details Clinical Impression: Nausea & vomiting Primary Care Provider: Randy Willingham ED Provider: Leonor Simons Home Meds and New Rx's Prescriptions: New sucralfate [Carafate] 1 gram tablet 1 g PO BID Qty: 60 0RF Continued melatonin 3 mg tablet 3 - 5 mg PO HS Rx Instructions: 1-2 tabs (3-6 mg) po at hs albuterol sulfate 90 mcg/actuation HFA aerosol inhaler 1 inh IH ONCE omeprazole 20 mg capsule,delayed release(DR/EC) 20 mg PO DAILY loratadine 10 mg capsule 10 mg PO DAILY VSL#3 112.5 billion cell capsule 1 cap PO DAILY Qty: 30 12RF Label Comments: takes gummies labetalol 100 mg tablet 50 mg PO DAILY Digestive Advantage Prob Gummy 250 million cell tablet,chewable 250 cell PO DAILY docusate sodium 100 mg capsule 100 mg PO DAILY lidocaine 3.5 % adhesive patch,medicated topical peg 3350-electrolytes [Golytely] 236-22.74-6.74 -5.86 gram recon soln 240 ml PO Q10M Qty: 4000 0RF Rx Instructions: until fecal effluent is clear medroxyprogesterone [Depo-Provera] 150 mg/mL syringe 150 mg IM every 3 months Qty: 1 5RF Rx Instructions: bring syringe to [facility] for administration. quetiapine [Seroquel] 25 mg tablet 25 mg PO BID fluoxetine 10 mg capsule 10 mg PO DAILY clonidine HCl [Catapres] 0.2 MG tablet 0.2 mg PO HS acetaminophen 500 mg Tablet 1,000 mg PO PRN PRN Discharge Instructions Instructions: Acute Nausea and Vomiting (ED) Additional Instructions: Take take Zofran as needed for nausea and vomiting Take Carafate daily Follow-up with your primary care physician on Tuesday Clear liquid diet only until you are feeling symptomatically improved Return earlier should you have new or worsening complaints Stay away from marijuana Referrals: Randy Willingham PA [Primary Care Provider] - Discharge Data Discharge Date/Time-TO BE ENTERED AT DEPARTURE: 05/21/22 23:01 Medical Decision Making Patient was able to tolerate p.o. after Zofran ODT, she request prescription for Zofran ODT for home Patient discharged home able to tolerate p.o. Return precautions discussed and patient expressed understanding Nontender abdominal exam, thorough evaluation yesterday performed, no indication for repeat diagnostic labs today Medical Records Medical records reviewed: Yes I reviewed the patient's medical records. Lab Data Lab results reviewed: Yes I reviewed the patient's lab results. HPI General Date/Time Provider Initiated Documentation: 05/21/22 20:41 . HPI Narrative: This 27-year-old female with presents with report that she is unable to hold down oral hydration. She states she was in the emergency department yesterday and evaluated for similar symptoms. She reportedly felt better and was discharged home on oral antiemetics which she was unable to tolerate today. She denies any fever or chills. She denies any change in symptoms. She denies any abdominal discomfort. She has any blood in her vomitus. She denies any chance of . Related Data Home Medications Medication Instructions Recorded Confirmed clonidine HCl 0.2 mg tablet 0.2 mg PO HS 03/29/13 05/20/22 (Catapres) acetaminophen 500 mg tablet 1,000 mg PO PRN PRN 10/30/19 05/20/22 albuterol sulfate 90 mcg/actuation 1 inh inhalation ONCE 05/13/20 05/20/22 aerosol inhaler loratadine 10 mg capsule 10 mg PO DAILY 07/31/20 05/20/22 omeprazole 20 mg capsule,delayed 20 mg PO DAILY 07/31/20 05/20/22 release medroxyprogesterone 150 mg/mL 150 mg IM every 3 months #1 SYRG 09/21/21 05/20/22 intramuscular syringe (Depo-Provera) Bacillus coagulans 250 million 250 cell PO DAILY 09/25/21 05/20/22 cell chewable tablet (Digestive Advantage Probiotic Gummy) labetalol 100 mg tablet 50 mg PO DAILY 09/25/21 05/20/22 melatonin 3 mg tablet 3 - 5 mg PO HS 09/25/21 05/20/22 Lactobac no.2-Bifidobac no.1-S. 1 cap PO DAILY #30 caps 12/18/21 05/20/22 thermo 112.5 billion cell capsule (VSL#3) fluoxetine 10 mg capsule 10 mg PO DAILY 01/29/22 05/20/22 quetiapine 25 mg tablet (Seroquel) 25 mg PO BID 01/29/22 05/20/22 docusate sodium 100 mg capsule 100 mg PO DAILY 05/17/22 05/20/22 lidocaine 3.5 % topical patch patch topical 05/17/22 05/20/22 peg 3350-electrolytes 236 240 ml PO Q10M #4,000 mL 05/20/22 gram-22.74 gram-6.74 gram-5.86 gram solution (Golytely) sucralfate 1 gram tablet (Carafate) 1 g PO BID #60 tabs 05/21/22 Previous Rx's Medication Instructions Recorded medroxyprogesterone 150 mg/mL 150 mg IM every 3 months #1 SYRG 09/21/21 intramuscular syringe (Depo-Provera) Lactobac no.2-Bifidobac no.1-S. 1 cap PO DAILY #30 caps 12/18/21 thermo 112.5 billion cell capsule (VSL#3) peg 3350-electrolytes 236 240 ml PO Q10M #4,000 mL 05/20/22 gram-22.74 gram-6.74 gram-5.86 gram solution (Golytely) sucralfate 1 gram tablet (Carafate) 1 g PO BID #60 tabs 05/21/22 Allergies Allergy/AdvReac Type Severity Reaction Status Date / Time fluticasone Allergy Severe Verified 05/20/22 23:01 [From Flovent HFA] lisinopril Allergy Intermediate Verified 05/20/22 23:01 paroxetine HCl [From Paxil] Allergy Intermediate Hives Verified 05/20/22 23:01 polyethylene glycol 3350 Allergy Intermediate Verified 05/20/22 23:01 [From Miralax] risperidone [From Risperdal] Allergy Intermediate Hives Verified 05/20/22 23:01 NSAIDS (Non-Steroidal Allergy Due to Verified 05/20/22 23:01 Anti-Inflamma prior kidney damage acetaminophen AdvReac Nausea Unverified 05/20/22 23:01 amoxicillin AdvReac Nausea Verified 05/20/22 23:01 seafood Allergy Intermediate Uncoded 05/20/22 23:01 enviornmental Allergy Mild sneezing Uncoded 05/20/22 23:01 General Stated Complaint: Abd Prob MARY KAY: 4 Review of Systems All systems reviewed & are unremarkable except as noted in HPI and below PFSH All Active Problems (Updated 05/21/22 @ 22:49 by HARRISON Nava) Nausea & vomiting (Acute) Family history of colon cancer (Acute) Mild mental slowing (Acute) Illiteracy (Acute) Rectal bleed (Acute) Hemorrhoids (Acute) Blood in stool (Acute) BMI 40.0-44.9, adult (Chronic) Kidney disease (Chronic 09/13/17) Secondary to UTIs as a child. 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 Patient is using the Depo- Provera for menstrual cycle control. Depression (12/31/16) Drug abuse, episodic use Dysuria Fall due to ice or snow Fatigue Generalized headaches (12/31/16) Hemolytic uremic syndrome History of allergic reaction History of mastoiditis Hypertrophy of tonsils and adenoids Jaw pain Mesenteric lymphadenitis Nexplanon in place 01/21/17. for control of menses. Otalgia, right ear Overactive bladder (02/09/18) Pain, dental PTSD (post-traumatic stress disorder) RBC microcytosis Steatosis of liver SASHA (stress urinary incontinence, female) Suicidal ideation TMJ tenderness, left UTI (urinary tract infection) Vaginal discharge Vitamin D deficiency Surgical History History of kidney surgery Social History Smoking/Tobacco Use Status: Current every day Tobacco Type: e-cigarettes Smoking risk assessment performed?: Yes Alcohol Intake: former Drug use: Socially Substance use type: marijuana Details: PATIENT STARTED SHE STARTED VAPING AGAIN ON 05/06/22 DUE TO SEVERE DEPRESSION. Pt states she last smoked marijuana last Tuesday (05/14/2022) Sexually active: No (has never been sexually active. ) What is your relationship status?: never Panel score (0-1 are the most socially isolated patients): 0 Do you feel safe at home: Yes Do you feel safe in your relationship?: Yes Female Reproductive History Menstrual control method: progesterone injection History History 0 Para Hx # Term Pregnancies Multiple births Hx # Pregnancies Ectopic pregnancies AB induced Hx Number of Living Children AB spontaneous Exam Const General: cooperative, comfortable and no acute distress Orientation: alert and oriented x3 HENMT Mouth: oral mucosae normal Eyes Pupils: PERRL Resp Effort & Inspection: normal respiratory effort Auscultation: clear to auscultation bilaterally Cardio Rate: regular rate GI Inspection: normal to inspection Other: non-tender abdominal exam Skin General skin exam: no rashes or lesions noted Neuro General: patient alert and patient oriented x3 Extrem General: normal to inspection Course Vital Signs Vital signs: Vital Signs Temperature 36.2 C L 05/21/22 20:49 Pulse 101 H 05/21/22 20:49 Respiratory Rate 22 05/21/22 20:49 Blood Pressure 149/110 H 05/21/22 20:49 Temperature 36.2 C L 05/21/22 20:49 Temperature Source Temporal Artery Scan 05/21/22 20:49 Pulse 101 H 05/21/22 20:49 Respiratory Rate 22 05/21/22 20:49 Respiratory Effort 05/21/22 20:59 Blood Pressure 149/110 H 05/21/22 20:49 Blood Pressure Position Sitting 05/21/22 20:49 Oxygen Delivery Method Room Air 05/21/22 20:49 Oxygen Flow Rate 0 05/21/22 20:49 Pain Level 8 05/21/22 20:59 Comment 05/21/22 20:49
[2022-05-21 22:50] VITALS: BP 151/79; PULSE 82; RESP 18; O2SAT 97
== END 2022-05-21 23:01 | disposition home or self-care (01) ==
PROVIDERS: Emergency Provider Physician Assistant; PCP Physician Assistant Medical
DX: R11.2 Nausea with vomiting, unspecified (principal); F17.290 Nicotine dependence, other tobacco product, uncomplicated
CPT/HCPCS: 99283; 99284

== ENCOUNTER 2022-06-03 15:49 | Outpatient (REF) | payer MEDICAID, SELFPAY ==
[2022-06-03 16:57] LABS: Vitamin D 25 Total 18.5 ng/mL (30-100)
== END 2022-06-03 15:50 | disposition home or self-care (01) ==
LOC: NCHCN 15:49
PROVIDERS: PCP Physician Assistant Medical; Visit Provider Nurse Practitioner Family
DX: R73.03 Prediabetes (principal); E55.9 Vitamin D deficiency, unspecified
CPT/HCPCS: 82306; 83036

== ENCOUNTER 2022-06-04 18:28 | Outpatient (REF) | payer MEDICAID, SELFPAY ==
[2022-06-07 14:53] LABS: Chlamydia Result Negative (Negative); GC Result Negative (Negative)
== END 2022-06-04 18:29 | disposition home or self-care (01) ==
LOC: LBN 18:28
PROVIDERS: PCP Physician Assistant Medical; Visit Provider Obstetrics & Gynecology
DX: Z11.3 Encounter for screening for infections with a predominantly sexual mode of transmission (principal)
CPT/HCPCS: 87491; 87591

== ENCOUNTER 2022-06-22 01:27 | Outpatient (CLI) | payer MEDICAID, SELFPAY ==
[2022-06-22 09:24] LABS: Source Nasal/Nares
[2022-06-22 12:03] LABS: COVID-19 PCR Negative (Negative)
== END 2022-06-22 01:28 | disposition home or self-care (01) ==
PROVIDERS: PCP Physician Assistant Medical; Visit Provider Surgery
DX: Z20.822 Contact with and (suspected) exposure to COVID-19 (principal); Z01.818 Encounter for other preprocedural examination
CPT/HCPCS: 87635

== ENCOUNTER 2022-06-24 07:01 | Day surgery (SDC) | payer MEDICAID, SELFPAY ==
--- NOTE | 2022-06-24 07:26 | HPE_ITS ---
Date of service: 06/24/22 Time of Service: 07:27 Assessment and Plan Assessment and plan (1) Blood per rectum: Status: Acute Assessment and plan: We will proceed with EGD and colonoscopy today. History of Present Illness Narrative: Padmini is a 27 woman with a history of depression, anxietyy/o female with his tory of, hypertension, illiteracy, chronic abdominal pain and rectal bleeding presents to discuss proceeding with upper endoscopy and colonoscopy for further evaluation of her chronic abdominal symptoms and rectal bleeding.? Patient has had numerous ER visits, urgent care visits and PCP visits for rectal bleeding and abdominal pain.? Most recent ER visit was on CT scan at that time was unremarkable for any abdominal etiologies.? Patient reports that she is been having lower abdominal pain for 1 to 2 months that at times is associated with constipation.? She states that she intermittently takes a stool softener to help promote bowel movements.? She states that she does have discomfort while passing a bowel movement and this is associated with bright red rectal bleeding. Patient states that she also has symptoms of nausea and vomiting associated with abdominal pain.? She states that she is unable to eat a healthy diet because items such as Suresh's and salads cause her to become nauseous and she vomits.? She describes possible history of maternal grandmother having colon cancer. ? She denies constitutional symptoms. Denies use of marijuana or any other recreational or illegal drugs. She continues to have some ongoing episodes of hematochezia, despite her normal rectal exam and no evidence of internal hemorrhoids. She denies chest pain, palpitations, dyspnea or dyspnea with exertion. She denies prior history or family history of adverse reactions or complications with anesthesia. The patient denies any history of stroke, [place], seizures, bleeding or clotting disorders. She denies having any implanted metal in her body. Review of Systems Constitutional Constitutional: Denies anorexia, Denies fever(s), Reports headache(s) and Reports weight loss Eyes Eyes: Denies blurry vision and Denies change in vision ENT Ears, Nose, Mouth, and Throat: Reports headache(s) Cardiovascular Cardiovascular: Denies chest pain and Denies dyspnea Respiratory Respiratory: Denies chest congestion, Denies cough and Denies dyspnea Gastrointestinal Gastrointestinal: Denies abdominal pain, Reports hematochezia, Reports constipation and Denies heartburn Musculoskeletal Musculoskeletal: Reports back pain, Denies arthralgias and Denies muscle weakness Neurologic Neurologic: Denies abnormal speech, Reports headache(s) and Denies localized weakness Hematologic/Lymphatic Hematologic/Lymphatic: Denies easy bleeding and Denies easy bruising PFSH All Active Problems (Updated 06/24/22 @ 07:31 by Solomon Kelly MD) Blood per rectum (Acute) Chronic kidney disease, stage 1 (Chronic 12/31/16) from renal infection as a child elevated BP resulting 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 Patient is using the Depo- Provera for menstrual cycle control. Depression (12/31/16) Drug abuse, episodic use Dysuria Family history of colon cancer Fatigue Generalized headaches (12/31/16) Hemolytic uremic syndrome History of allergic reaction History of mastoiditis Hypertrophy of tonsils and adenoids Illiteracy Per caregiver she is able to read and write, she needs assitance with comprehension of more complex words. Jaw pain Mesenteric lymphadenitis Otalgia, right ear Overactive bladder (02/09/18) Pain, dental PTSD (post-traumatic stress disorder) RBC microcytosis Steatosis of liver SASHA (stress urinary incontinence, female) Suicidal ideation TMJ tenderness, left Vitamin D deficiency Surgical History History of kidney surgery Social History Smoking/Tobacco Use Status: Current every day Tobacco Type: e-cigarettes Smoking risk assessment performed?: Yes Alcohol Intake: former Drug use: Socially Substance use type: marijuana Sexually active: Yes (female partner only now(May 2022). Has never had intercourse) Do you think of yourself as: lesbian/cash/homosexual What is your relationship status?: never Panel score (0-1 are the most socially isolated patients): 0 Additional Social history: Unable to assess [facility] Female Reproductive History Menstrual control method: progesterone injection History History 0 Para Hx # Term Pregnancies Multiple births Hx # Pregnancies Ectopic pregnancies AB induced Hx Number of Living Children AB spontaneous Meds Allergies and Home Medications Allergies Allergy/AdvReac Type Severity Reaction Status Date / Time fluticasone Allergy Severe unknown Verified 06/23/22 12:42 [From Flovent HFA] lisinopril Allergy Intermediate unknown Verified 06/23/22 12:42 paroxetine HCl [From Paxil] Allergy Intermediate Hives Verified 06/04/22 10:01 polyethylene glycol 3350 Allergy Intermediate unknown Verified 06/23/22 12:42 [From Miralax] risperidone [From Risperdal] Allergy Intermediate Hives Verified 06/04/22 10:01 NSAIDS (Non-Steroidal Allergy Due to Verified 06/04/22 10:01 Anti-Inflamma prior kidney damage acetaminophen AdvReac Nausea Unverified 06/04/22 10:01 amoxicillin AdvReac Nausea Verified 06/04/22 10:01 seafood Allergy Intermediate unknown Uncoded 06/23/22 12:42 enviornmental Allergy Mild sneezing Uncoded 06/04/22 10:01 Home Medications Medication Instructions Recorded Confirmed Type clonidine HCl 0.2 mg tablet 0.2 mg PO HS 03/29/13 06/23/22 History (Catapres) acetaminophen 500 mg tablet 1,000 mg PO PRN PRN 10/30/19 06/23/22 History albuterol sulfate 90 mcg/actuation 1 inh inhalation ONCE 05/13/20 06/23/22 History aerosol inhaler loratadine 10 mg capsule 10 mg PO DAILY 07/31/20 06/23/22 History omeprazole 20 mg capsule,delayed 20 mg PO DAILY 07/31/20 06/23/22 History release medroxyprogesterone 150 mg/mL 150 mg IM every 3 months #1 SYRG 09/21/21 06/23/22 Rx intramuscular syringe (Depo-Provera) Bacillus coagulans 250 million 250 cell PO DAILY 09/25/21 06/23/22 History cell chewable tablet (Digestive Advantage Probiotic Gummy) labetalol 100 mg tablet 50 mg PO DAILY 09/25/21 06/23/22 History melatonin 3 mg tablet 3 - 5 mg PO HS 09/25/21 06/23/22 History fluoxetine 10 mg capsule 10 mg PO DAILY 01/29/22 06/23/22 History quetiapine 25 mg tablet (Seroquel) 25 mg PO BID 01/29/22 06/23/22 History docusate sodium 100 mg capsule 100 mg PO DAILY 05/17/22 06/23/22 History lidocaine 3.5 % topical patch 1 patch topical DIRECTED 05/17/22 06/23/22 History peg 3350-electrolytes 236 240 ml PO Q10M #4,000 mL 05/20/22 06/23/22 Rx gram-22.74 gram-6.74 gram-5.86 gram solution (Golytely) sucralfate 1 gram tablet (Carafate) 1 g PO BID #60 tabs 05/21/22 06/23/22 Rx ondansetron 4 mg disintegrating 4 mg PO Q4H PRN nausea and 06/22/22 06/23/22 Rx tablet vomiting #7 tabs Exam Const General: cooperative, healthy appearing and comfortable Orientation: awake and oriented x3 Eyes General: appearance normal, both eyes and all related structures Conjunctivae: conjunctivae normal Sclera: sclerae normal Resp Effort & Inspection: normal respiratory effort and able to speak in complete sentences Cardio Jugular venous pressure: no JVD Rate: regular rate GI Inspection: non-distended Palpation: soft, no guarding, no hernias and nontender Auscultation: normal bowel sounds Skin General skin exam: normal turgor Neuro General: patient alert, patient awake and patient oriented x3 Cognition: normal cognition Extrem Right lower extremity: no edema Left lower extremity: no edema
[2022-06-24 07:29] VITALS: BP 118/71; PULSE 87; RESP 18; TEMP 36.7; O2SAT 97
--- NOTE | 2022-06-24 07:32 | W.PM.DSUDISC ---
Discharge Plan Disposition Patient Disposition: HOME Condition: Good Discharge Details Reason For Visit: EGD and colonoscopy Attending Provider: Solomon Kelly Primary Care Provider: Randy Willingham Home Meds and New Rx's Prescriptions: Continued melatonin 3 mg tablet 3 - 5 mg PO HS Rx Instructions: 1-2 tabs (3-6 mg) po at hs albuterol sulfate 90 mcg/actuation HFA aerosol inhaler 1 inh IH ONCE omeprazole 20 mg capsule,delayed release(DR/EC) 20 mg PO DAILY loratadine 10 mg capsule 10 mg PO DAILY labetalol 100 mg tablet 50 mg PO DAILY Digestive Advantage Prob Gummy 250 million cell tablet,chewable 250 cell PO DAILY docusate sodium 100 mg capsule 100 mg PO DAILY lidocaine 3.5 % adhesive patch,medicated 1 patch topical DIRECTED peg 3350-electrolytes [Golytely] 236-22.74-6.74 -5.86 gram recon soln 240 ml PO Q10M Qty: 4000 0RF Rx Instructions: until fecal effluent is clear medroxyprogesterone [Depo-Provera] 150 mg/mL syringe 150 mg IM every 3 months Qty: 1 5RF Rx Instructions: [facility]. quetiapine [Seroquel] 25 mg tablet 25 mg PO BID fluoxetine 10 mg capsule 10 mg PO DAILY ondansetron 4 mg tablet,disintegrating 4 mg PO Q4H PRN (Reason: nausea and vomiting) Qty: 7 0RF clonidine HCl [Catapres] 0.2 MG tablet 0.2 mg PO HS acetaminophen 500 mg Tablet 1,000 mg PO PRN PRN sucralfate [Carafate] 1 gram tablet 1 g PO BID Qty: 60 0RF Discharge Instructions Instructions: Colonoscopy (DC), Upper Endoscopy (DC), Colorectal Polyps (DC) Additional Instructions: 1. If tolerated, consume a soft, low fiber diet for 1-2 days. 2[address] Do not drive, drink alcohol, operate machinery, make critical decisions, or do activities that require coordination or balance for 24 hours. 3. Because air was put into your colon during the procedure, expelling air from your rectum (passing gas or farting) is normal. 4. You may not have a bowel movement for 1-3 days because of the colonoscopy prep. This is normal. 5. You may experience a sore throat for 24 to 48 hours. You may use throat lozenges or gargle with warm salt water to relieve the discomfort. 6. Because air was put into your stomach during the procedure, you may experience some belching. 7. Go directly to the emergency room if you notice any of the following: Develop chills (warm to touch), or if you have a thermometer and your temperature is above 101 Difficulty breathing or difficultly swallowing Persistent vomiting Severe abdominal pain, other than gas cramps Severe chest pain Black, tarry stools Any bleeding ? exceeding one tablespoon 8. Call your physician if the site where your intravenous was started becomes red, swollen, painful, and warm to touch. 9. Your physician has reviewed your pre-procedure medications. Please continue to take those medications as previously ordered. You will be given specific information/education regarding any changes to your medications before leaving. Referrals: Randy Willingham PA [Primary Care Provider] - Activity:: Activity as Tolerated Diet:: As Tolerated Discharge Orders Discharge Orders: Discharge Order (Routine); Ordered 06/24/22 Ordered By: Solomon Kelly DS: Diagnosis Discharge Diagnosis (1) Rectal polyp: Status: Acute Asessment and Plan: my office will contact you with biopsy results
--- NOTE | 2022-06-24 07:33 | COLE_ITS ---
Colonoscopy Report Date of procedure: 06/24/22 Pre-op diagnosis general: blood per rectum Post-op diagnosis procedure note: other (rectal polyp) Procedure: EGD and colonoscopy Surgeon: Solomon Kelly Anesthesia Type: General:No Airway Estimated blood loss (mL): 10 Pathology: other (rectal polyp) Complications: None Disposition: same day Indications: Padmini Barajas is a 27-year-old woman who has had several months of intermittent blood per rectum. It is low-volume, and mostly noticed with toileting. She had a history of some constipation, and trialed some stool softeners, but she continues to complain of some intermittent hematochezia. Additionally, she has frequent nausea and occasional vomiting with multiple meals Prep: Miralax/Dulcolax Procedure Start Time: 08:38 Procedure End Time: :09 Retraction Time: 22 Findings: Singular rectal polyp around 25 Procedure Description: After the initiation of monitored anesthetic care, and with the assistance of a bite block, I advanced a standard gastroscope through the mouth past the hypopharynx and into the esophagus.? Under the direct vision of the scope, I advanced down the esophagus into the stomach.? Once I entered the stomach, I performed a brief inspection, followed by retroflexion towards the gastric cardia.? This appeared normal.? After that, I gently advanced the scope around the incisura angularis and examined the pylorus.? This also appeared normal.? Next, I advanced the scope through the pylorus into the duodenum.? The mucosa was pink and healthy appearing.? There were no abnormalities.? I was able to visualize bile draining into the duodenum through the ampulla Vater. ?Next, I began retracting the endoscope.? Again, I returned to the stomach which was carefully examined once again.? I then gently desufflated some of the stomach, and withdrew the endoscope into the distal esophagus. The Z-line was normal- appearing around 27th. ?Finally, I withdrew the scope along the length of the esophagus taking great care to examine the entirety of the mucosa.? I did not appreciate any abnormalities. Next, we moved patient in left lateral decubitus position, I began by performing an external anorectal exam.? Perineum and skin were normal, as was the anal verge.? There was evidence of external hemorrhoids.? Next, I performed a digital rectal exam.? I did appreciate any abnormal findings.? Next, I advanced a colonoscope into the rectal vault.? I performed retroflexion.? I did see signs of pathologic internal hemorrhoids.? Using insufflation, I then advanced the colonoscope beyond the rectal folds and into the sigmoid colon before advancing towards the cecum.? The quality of the prep was added.? The scope was noted to be in the cecum by identification of the ileocecal valve and appendiceal orifice.? I then began withdrawing the colonoscope using repeated irrigation as necessary for full evaluation of the colonic mucosa. ?Once the scope was withdrawn to the level of the rectum, great care was taken to examine portions of the rectal folds.? Around 20 cm from the anal verge I identified a 0.5 polyp. ?It appeared flat in character. ?I was able to remove this with a cold biopsy for. ?I examined the site, and there was minimal bleeding. ?Once this was completed, I continued to withdraw the scope and examine the remainder of the colonic mucosa.Finally, the scope was withdrawn and the patient was brought to the same-day surgery recovery unit as the anesthetic wore off. ?The findings and instructions were shared with the patient prior to discharge.
[2022-06-24] MEDS: Lactated Ringers 1,000 ML 80 ML IV (08:01)
--- NOTE | 2022-06-24 08:24 | ANES.PREOP_ITS ---
General Info Date of Service Date Performed: 06/24/22 Height: 5 ft 5 in Weight: 102.4 kg Body Mass Index (BMI): 37.5 Surgical Procedure: Operation Date: 06/24/22 08:50 Proposed Procedure Side Surgeon p Colonoscopy/Gastroscopy Solomon Kelly MD Meds Allergies and Home Medications Allergies Allergy/AdvReac Type Severity Reaction Status Date / Time fluticasone Allergy Severe unknown Verified 06/24/22 07:37 [From Flovent HFA] lisinopril Allergy Intermediate unknown Verified 06/24/22 07:37 paroxetine HCl [From Paxil] Allergy Intermediate Hives Verified 06/24/22 07:37 polyethylene glycol 3350 Allergy Intermediate unknown Verified 06/24/22 07:37 [From Miralax] risperidone [From Risperdal] Allergy Intermediate Hives Verified 06/24/22 07:37 NSAIDS (Non-Steroidal Allergy Due to Verified 06/24/22 07:37 Anti-Inflamma prior kidney damage acetaminophen AdvReac Nausea Unverified 06/24/22 07:37 amoxicillin AdvReac Nausea Verified 06/24/22 07:37 seafood Allergy Intermediate unknown Uncoded 06/24/22 07:37 enviornmental Allergy Mild sneezing Uncoded 06/24/22 07:37 Home Medication Medication Instructions Recorded clonidine HCl 0.2 mg tablet 0.2 mg PO HS 03/29/13 (Catapres) acetaminophen 500 mg tablet 1,000 mg PO PRN PRN 10/30/19 albuterol sulfate 90 mcg/actuation 1 inh inhalation ONCE 05/13/20 aerosol inhaler loratadine 10 mg capsule 10 mg PO DAILY 07/31/20 omeprazole 20 mg capsule,delayed 20 mg PO DAILY 07/31/20 release medroxyprogesterone 150 mg/mL 150 mg IM every 3 months #1 SYRG 09/21/21 intramuscular syringe (Depo-Provera) Bacillus coagulans 250 million 250 cell PO DAILY 09/25/21 cell chewable tablet (Digestive Advantage Probiotic Gummy) labetalol 100 mg tablet 50 mg PO DAILY 09/25/21 melatonin 3 mg tablet 3 - 5 mg PO HS 09/25/21 fluoxetine 10 mg capsule 10 mg PO DAILY 01/29/22 quetiapine 25 mg tablet (Seroquel) 25 mg PO BID 01/29/22 docusate sodium 100 mg capsule 100 mg PO DAILY 05/17/22 lidocaine 3.5 % topical patch 1 patch topical DIRECTED 05/17/22 peg 3350-electrolytes 236 240 ml PO Q10M #4,000 mL 05/20/22 gram-22.74 gram-6.74 gram-5.86 gram solution (Golytely) sucralfate 1 gram tablet (Carafate) 1 g PO BID #60 tabs 05/21/22 ondansetron 4 mg disintegrating 4 mg PO Q4H PRN nausea and 06/22/22 tablet vomiting #7 tabs Current Visit Medications: Current Medications Generic Name Dose Route Start Last Admin Trade Name Freq PRN Reason Stop Dose Admin Ringer's Solution 1,000 mls @ 80 mls/hr 06/24/22 06:00 06/24/22 08:01 IV 07/23/22 23:59 80 mls/hr INFUSION SONJA Administration IV Miscellaneous Supplies 1 each 06/24/22 06:00 Iv Access IV 07/23/22 23:59 DIRECTED SONJA Sodium Chloride 0 ml 06/24/22 06:00 Normal Saline Flush 10 Ml Syr IV 07/23/22 23:59 PRN PRN Sodium Chloride 0 ml 06/24/22 06:00 Normal Saline 10 Ml Vial IJ 07/23/22 23:59 DIRECTED PRN Sterile Water 0 ml 06/24/22 06:00 Water,Injection,Sterile 10 Ml Vial IJ 07/23/22 23:59 DIRECTED PRN PFSH Active Problems Active Problems: Problem Status Onset Code Chronic kidney disease, stage 1 12/31/16 N18.1 Hypertension secondary to other renal disorders 09/13/17 I15.1, N28.89 Mild mental slowing F70 Blood per rectum K62.5 Medical History Medical History Abdominal pain ADHD (attention deficit hyperactivity disorder) (12/31/16) Back pain Bipolar 2 disorder Blood in stool BMI 40.0-44.9, adult Depo-Provera contraceptive status (09/13/17) Depo-Provera contraception since 08/11/2017. Patient is using the Depo- Provera for menstrual cycle control. Depression (12/31/16) Drug abuse, episodic use Dysuria Family history of colon cancer Fatigue Generalized headaches (12/31/16) Hemolytic uremic syndrome History of allergic reaction History of mastoiditis Hypertrophy of tonsils and adenoids Illiteracy Per caregiver she is able to read and write, she needs assitance with comprehension of more complex words. Jaw pain Mesenteric lymphadenitis Otalgia, right ear Overactive bladder (02/09/18) Pain, dental PTSD (post-traumatic stress disorder) RBC microcytosis Steatosis of liver SASHA (stress urinary incontinence, female) Suicidal ideation TMJ tenderness, left Vitamin D deficiency Surgical History Surgical History (Updated 06/24/22 @ 07:36 by Stephania Pablo RN) History of kidney surgery Hx of tooth extraction Tobacco Smoking/Tobacco Use Status: Current every day Tobacco Type: e-cigarettes Alcohol Alcohol Intake: former Substance Use Substance use: Socially Substance use type: marijuana Details: last used 4 months ago Prental History History 0 Para Hx # Term Pregnancies Multiple births Hx # Pregnancies Ectopic pregnancies AB induced Hx Number of Living Children AB spontaneous Vital Signs and Lab Results Vital Signs Most Recent Vital Signs in EMR: Most Recent Vital Signs Temp Pulse Resp BP Pulse Ox 36.7 C 87 18 118/71 97 06/24/22 07:29 06/24/22 07:29 06/24/22 07:29 06/24/22 07:29 06/24/22 07:29 Lab Results Blood Type / Crossmatch: No Data to Display Complete Blood Count: No Data to Display Complete Metabolic Panel: No Data to Display Liver Function Panel: No Data to Display Coagulation Panel: No Data to Display Cardiac Panel: No Data to Display Arterial Blood Gas: No Data to Display Venous Blood Gas: No Data to Display Pancreas Panel: No Data to Display Thyroid Panel: No Data to Display Infectious Disease: Coronavirus (COVID-19)(PCR) Negative (Negative) 06/22/22 08:25 Coronavirus 2019 Source Nasal/Nares 06/22/22 08:25 Neisseria gonorrhoeae DNA Probe Negative (Negative) 06/04/22 1 0:00 Blood Cultures: No Data to Display Toxicology Panel: No Data to Display Panel: Urine HCG, Qualitative Negative 06/04/22 10:20 Anesthesia Assessment and Plan Anesthesia History Personal History: No History of Anesthesia Complications Family History: No Family History of Anesthesia Complications Exercise Tolerance Exercise Tolerance: Metabolic Equivalents>4 Pertinent Negatives Pertinent Negatives: No Symptoms of GERD (Some control with medication ) Cardiac & Pulmonary Exam Cardiac Exam: Normal S1/S2 Heart Sounds Pulmonary Exam: Clear Bilateral Breath Sounds Implantable Cardiac Device Does patient have a Pacemaker or an ICD?: No Airway Exam Known Difficult Airway: No Mallampati Class: 1 Mouth Opening: Normal (> 3cm) Thyromental Distance: Less than 3 cm Neck Range of Motion: Full ROM Neck Circumference: Thick Teeth Condition: Normal Dentition ASA Classification ASA Score: ASA 3 Emergency Case?: No NPO Status NPO Status: NPO Clears >2 hours, Solids >8 hours Status Status: Negative HCG Anesthesia Plan Resuscitation Status: Full Code Anesthesia Technique: General Anesthesia Airway Planned: Natural Airway Monitors Used: Standard Monitors
[2022-06-24 08:27] VITALS: BMI 37.5
--- NOTE | 2022-06-24 09:05 | BOWEL_PTH ---
PATIENT: Shannon Barajas LOC: [facility] U#:[id number] AGE/SX: 27/F ROOM: RE06/24/[address]: Solomon Kelly MD : 1995 BED: DIS: 06/24/2022 SPEC #: [id number] RECD: 06/24/22 12:55 STATUS: PRACHI REQ #: [id number] KENROY: 06/24/22 09:[address]: Solomon Kelly DEPT: Surgical Specimen RECD BY: Leonor Alonso ENTERED: 06/24/22 12:55 SP TYPE: Bowel OTHR DR: Randy Willingham Tissues: 1 - BIOPSY BOWEL Procedures: GROSS AND MICRO LEVEL 4 Comments: [id number]
[2022-06-24 09:18] VITALS: BP 116/61; PULSE 109; RESP 18; TEMP 36.9; O2SAT 95
--- NOTE | 2022-06-24 09:21 | W.ANESPOSTOP ---
Postoperative Evaluation Date, Time and Location Date Performed: 06/24/22 Time Performed: 09:21 Patient Location: Day Surgery Unit Vital Signs Most Recent Imported Vital Signs: Most Recent Vital Signs Temp Pulse Resp BP Pulse Ox 36.7 C 87 18 118/71 97 06/24/22 07:29 06/24/22 07:29 06/24/22 07:29 06/24/22 07:29 06/24/22 07:29 Most Recent Manually Entered Vital Signs: Adult Blood Pressure: 116/61 Heart Rate: 109 Respirations: 12 Oxygen Saturation (%): 96 Temperature (C): 36.3 C Pain Score (0-10 Scale): 0 Pain Score Most Recent Pain Score: Most Recent Pain Score Pain Level 0 06/24/22 07:29 Assessment Mental Status: Awake (Alert & Oriented to Patient Baseline) Airway and Respiratory Function: Patent airway with normal (patient baseline) respiratory exam Cardiovascular Function: Hemodynamically Stable Hydration Status: Adequately Hydrated Nausea & Vomiting: No Nausea or Vomiting Pain: Pt. Denies Any Pain Peripheral Nerve Block: Patient did not receive a nerve block
[2022-06-24 09:22] VITALS: BP 116/61; PULSE 109; RESP 12; TEMPC 36.3; O2SAT 96
[2022-06-24 09:50] VITALS: BP 122/71; PULSE 95; RESP 17; TEMP 36.5; O2SAT 96
== END 2022-06-24 10:34 | disposition home or self-care (01) ==
PROVIDERS: PCP Physician Assistant Medical; Visit Provider Surgery
PROC: (CPT 45380; principal; 2022-06-24 08:45)
DX: K62.5 Hemorrhage of anus and rectum (principal); K62.1 Rectal polyp; I15.1 Hypertension secondary to other renal disorders; N18.1 Chronic kidney disease, stage 1
CPT/HCPCS: 45380; 43235; 81025; 88305

== ENCOUNTER 2022-08-13 21:34 | Emergency (ER) | payer MEDICAID, SELFPAY ==
--- NOTE | 2022-08-13 21:49 | W.ED.GENAD ---
Discharge Plan Disposition Patient Disposition: HOME Condition: Improving Discharge Details Clinical Impression: Accidental marijuana overdose Primary Care Provider: Randy Willingham ED Provider: Margoth Donohue Home Meds and New Rx's Prescriptions: New epinephrine 0.3 mg/0.3 mL auto-injector 0.3 ml SC ONCE PRN (Reason: anaphylaxis) Qty: 2 0RF Rx Instructions: as a single dose; may repeat once Continued melatonin 3 mg tablet 3 - 5 mg PO HS Rx Instructions: 1-2 tabs (3-6 mg) po at hs albuterol sulfate 90 mcg/actuation HFA aerosol inhaler 1 inh IH ONCE omeprazole 20 mg capsule,delayed release(DR/EC) 20 mg PO DAILY loratadine 10 mg capsule 10 mg PO DAILY labetalol 100 mg tablet 50 mg PO DAILY Digestive Advantage Prob Gummy 250 million cell tablet,chewable 250 cell PO DAILY docusate sodium 100 mg capsule 100 mg PO DAILY lidocaine 3.5 % adhesive patch,medicated 1 patch topical DIRECTED peg 3350-electrolytes [Golytely] 236-22.74-6.74 -5.86 gram recon soln 240 ml PO Q10M Qty: 4000 0RF Rx Instructions: until fecal effluent is clear medroxyprogesterone [Depo-Provera] 150 mg/mL syringe 150 mg IM every 3 months Qty: 1 5RF Rx Instructions: bring syringe to [facility] for administration. quetiapine [Seroquel] 25 mg tablet 25 mg PO BID fluoxetine 10 mg capsule 10 mg PO DAILY ondansetron 4 mg tablet,disintegrating 4 mg PO Q4H PRN (Reason: nausea and vomiting) Qty: 7 0RF clonidine HCl [Catapres] 0.2 MG tablet 0.2 mg PO HS acetaminophen 500 mg Tablet 1,000 mg PO PRN PRN sucralfate [Carafate] 1 gram tablet 1 g PO BID Qty: 60 0RF Discharge Instructions Instructions: Cannabis Abuse (ED) Additional Instructions: Drink plenty of fluids and get plenty of rest. Follow up with your primary care doctor in 1 week as needed. Return to the emergency department with any worsening or new concerning symptoms. Discharge Data Discharge Date/Time-TO BE ENTERED AT DEPARTURE: 08/14/22 00:37 Discharge Physician: Margoth Donohue Medical Decision Making <Zeb Mcguire MD - Last Filed: 08/13/22 23:24> 27-year-old female presents with anxiety fast heart rate nausea and vomiting in the setting of taking unknown milligram cannabis edible earlier this evening. Of note her partner is also here in a similar state. Noted to be tachycardic on arrival. Nontoxic alert oriented tolerating secretions ambulatory without assistance following commands. Likely reaction to cannabis. Less likely infectious or metabolic process. Will provide fluids anxiolysis antiemetics close reassessment likely discharge home with follow-up. 23: 23 patient resting more comfortably after medications. No further vomiting. <Margoth Donohue DO - Last Filed: 08/14/22 01:25> Dr. Mcguire 27-year-old female presents with anxiety fast heart rate nausea and vomiting in the setting of taking unknown milligram cannabis edible earlier this evening. Of note her partner is also here in a similar state. Noted to be tachycardic on arrival. Nontoxic alert oriented tolerating secretions ambulatory without assistance following commands. Likely reaction to cannabis. Less likely infectious or metabolic process. Will provide fluids anxiolysis antiemetics close reassessment likely discharge home with follow-up. 23: 23 patient resting more comfortably after medications. No further vomiting. Dr. Donohue [id number] --please see Dr. Mcguire's note for initial presentation, exam and plan. Case endorsed with plan to discharge once more sober and able to ambulate. Discussed with patient at bedside and she states we can call her grandfather to pick them up. Called her grandfather Bill at [phone] and message left to call the ED. 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 Patient stated she felt ok to go home. Patient states she would like an EpiPen. She denies any history of anaphylaxis but there is a h/o allergy to seafood listed on her chart and states seafood made me shit my brains out. She states she may have had seafood tonight but states she had macaroni and cheese and mashed potatoes. Vitals entered into chart after pt discharge and notes that she was tachycardic. She had a normal heart rate prior to this. She is speaking in full sentences and demonstrates no signs of respiratory distress. She was ambulatory and in no acute distress in the waiting room while grandfather outside. She felt comfortable going home. Advised to follow up with the primary care doctor for re-evaluation. Usual and customary return precautions given prior to discharge. Medical Records Medical records reviewed: Yes I reviewed the patient's medical records. HPI <Zeb Mcguire MD - Last Filed: 08/13/22 23:24> General Date/Time Provider Initiated Documentation: 08/13/22 21:36. HPI Narrative: 27-year-old female presents brought in by EMS after her and her fianc? called 911 after taking unknown amount of marijuana edibles. Patient started experiencing anxiety fast heart rate nausea and vomiting. Related Data Home Medications Medication Instructions Recorded Confirmed clonidine HCl 0.2 mg tablet 0.2 mg PO HS 03/29/13 08/14/22 (Catapres) acetaminophen 500 mg tablet 1,000 mg PO PRN PRN 10/30/19 08/14/22 albuterol sulfate 90 mcg/actuation 1 inh inhalation ONCE 05/13/20 08/14/22 aerosol inhaler loratadine 10 mg capsule 10 mg PO DAILY 07/31/20 08/14/22 omeprazole 20 mg capsule,delayed 20 mg PO DAILY 07/31/20 08/14/22 release medroxyprogesterone 150 mg/mL 150 mg IM every 3 months #1 SYRG 09/21/21 08/14/22 intramuscular syringe (Depo-Provera) Bacillus coagulans 250 million 250 cell PO DAILY 09/25/21 08/14/22 cell chewable tablet (Digestive Advantage Probiotic Gummy) labetalol 100 mg tablet 50 mg PO DAILY 09/25/21 08/14/22 melatonin 3 mg tablet 3 - 5 mg PO HS 09/25/21 08/14/22 fluoxetine 10 mg capsule 10 mg PO DAILY 01/29/22 08/14/22 quetiapine 25 mg tablet (Seroquel) 25 mg PO BID 01/29/22 08/14/22 docusate sodium 100 mg capsule 100 mg PO DAILY 05/17/22 08/14/22 lidocaine 3.5 % topical patch 1 patch topical DIRECTED 05/17/22 08/14/22 peg 3350-electrolytes 236 240 ml PO Q10M #4,000 mL 05/20/22 08/14/22 gram-22.74 gram-6.74 gram-5.86 gram solution (Golytely) sucralfate 1 gram tablet (Carafate) 1 g PO BID #60 tabs 05/21/22 08/14/22 ondansetron 4 mg disintegrating 4 mg PO Q4H PRN nausea and 06/22/22 08/14/22 tablet vomiting #7 tabs epinephrine 0.3 mg/0.3 mL 0.3 ml subcut ONCE PRN anaphylaxis 08/14/22 injection, auto-injector #2 ea Previous Rx's Medication Instructions Recorded medroxyprogesterone 150 mg/mL 150 mg IM every 3 months #1 SYRG 09/21/21 intramuscular syringe (Depo-Provera) peg 3350-electrolytes 236 240 ml PO Q10M #4,000 mL 05/20/22 gram-22.74 gram-6.74 gram-5.86 gram solution (Golytely) sucralfate 1 gram tablet (Carafate) 1 g PO BID #60 tabs 05/21/22 ondansetron 4 mg disintegrating 4 mg PO Q4H PRN nausea and 06/22/22 tablet vomiting #7 tabs epinephrine 0.3 mg/0.3 mL 0.3 ml subcut ONCE PRN anaphylaxis 08/14/22 injection, auto-injector #2 ea Allergies Allergy/AdvReac Type Severity Reaction Status Date / Time fluticasone Allergy Severe unknown Verified 08/14/22 01:13 [From Flovent HFA] lisinopril Allergy Intermediate unknown Verified 08/14/22 01:13 paroxetine HCl [From Paxil] Allergy Intermediate Hives Verified 08/14/22 01:13 polyethylene glycol 3350 Allergy Intermediate unknown Verified 08/14/22 01:13 [From Miralax] risperidone [From Risperdal] Allergy Intermediate Hives Verified 08/14/22 01:13 NSAIDS (Non-Steroidal Allergy Due to Verified 08/14/22 01:13 Anti-Inflamma prior kidney damage acetaminophen AdvReac Nausea Unverified 08/14/22 01:13 amoxicillin AdvReac Nausea Verified 08/14/22 01:13 seafood Allergy Intermediate unknown Uncoded 08/14/22 01:13 enviornmental Allergy Mild sneezing Uncoded 08/14/22 01:13 General MARY KAY: 4 Review of Systems <Zeb Disabatino, MD - Last Filed: 08/13/22 23:24> Narrative: Review of Systems Constitutional: negative Eyes: negative ENT: negative Cardiovascular: Fast heart rate Respiratory: negative Gastrointestinal: Nausea vomiting : negative Musculoskeletal: negative Skin: negative Neurologic: negative Psych: negative PFSH <Zeb Mcguire MD - Last Filed: 08/13/22 23:24> All Active Problems (Updated 08/13/22 @ 23:24 by Zeb Mcguire MD) Accidental marijuana overdose (Acute) Hyperplastic colon polyp (Acute) Rectal polyp (Acute) Chronic kidney disease, stage 1 (Chronic 12/31/16) from renal infection as a child elevated BP resulting 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 Patient is using the Depo-Provera for menstrual cycle control. Depression (12/31/16) Drug abuse, episodic use Dysuria Family history of colon cancer Fatigue Generalized headaches (12/31/16) Hemolytic uremic syndrome History of allergic reaction History of mastoiditis Hypertrophy of tonsils and adenoids Illiteracy Per caregiver she is able to read and write, she needs assitance with comprehension of more complex words. Jaw pain Mesenteric lymphadenitis Otalgia, right ear Overactive bladder (02/09/18) Pain, dental PTSD (post-traumatic stress disorder) RBC microcytosis Steatosis of liver SASHA (stress urinary incontinence, female) Suicidal ideation TMJ tenderness, left Vitamin D deficiency Surgical History (Updated 06/29/22 @ 06:23 by Connie Aparicio RN) History of colonoscopy (~06/2022) History of kidney surgery Hx of tooth extraction Social History Smoking/Tobacco Use Status: Current every day Tobacco Type: e-cigarettes Smoking risk assessment performed?: Yes Alcohol Intake: former Drug use: Socially Substance use type: marijuana Details: last used 4 months ago Sexually active: Yes (female partner only now(May 2022). Has never had intercourse) Do you think of yourself as: lesbian/cash/homosexual What is your relationship status?: never Panel score (0-1 are the most socially isolated patients): 0 Do you feel safe at home: Yes Do you feel safe in your relationship?: Yes Additional Social history: Unable to assess kristen Female Reproductive History Menstrual control method: progesterone injection History History 0 Para Hx # Term Pregnancies Multiple births Hx # Pregnancies Ectopic pregnancies AB induced Hx Number of Living Children AB spontaneous Exam <Zeb Mcguire MD - Last Filed: 08/13/22 23:24> Narrative Exam Narrative: Physical Examination General: alert, awake, cooperative, resting comfortably, no acute distress HEENT: normocephalic, atraumatic; PERRL, EOM intact, conjunctiva normal; no nasal discharge; moist mucous membranes, oral and pharyngeal mucosa normal, tolerating secretions Neck: supple, trachea midline; full ROM Chest: normal to inspection Respiratory: normal respiratory effort, speaking in full sentences, clear to auscultation, no wheezing, rales or rhonchi Cardiac: Tachycardia, regular rhythm, S1S2 intact, no murmurs rubs or gallops GI: abdomen soft, non-tender, non-distended; no palpable mass or hepatosplenomegaly Skin: no lesions, rashes or trauma appreciated Neuro: AAOx3, normal speech, moving all extremities; ambulatory without assistance Psych: Slightly anxious appearing Sign Out <Zeb Mcguire MD - Last Filed: 08/13/22 23:24> Sign Out Data: Sign Out Comment: marijuana edibles, nausea vomiting anxiety; pending improvement of symptoms Last updated by Zeb Mcguire MD at 08/13/22 23:06
[2022-08-13 22:05] VITALS: BP 152/93; PULSE 97; RESP 22; TEMP 37.6; O2SAT 97
[2022-08-13 22:50] VITALS: TEMP 37.6
[2022-08-13] MEDS: LORazepam 2 MG/ML VIAL 1 MG IM (22:50)
[2022-08-13] MEDS: Ondansetron 4 MG/2 ML VIAL IM (22:53)
[2022-08-14 00:50] VITALS: BP 155/93; PULSE 136; RESP 22; O2SAT 95
== END 2022-08-14 00:37 | disposition home or self-care (01) ==
PROVIDERS: Emergency Provider Physician Assistant; PCP Physician Assistant Medical
DX: T40.711A Poisoning by cannabis, accidental (unintentional), initial encounter (principal); R00.0 Tachycardia, unspecified; R11.2 Nausea with vomiting, unspecified; F41.9 Anxiety disorder, unspecified
CPT/HCPCS: 96361; 96372; 96374; 96375; 99284; 99285; J2060; J2405

== ENCOUNTER 2022-08-14 07:56 | Emergency (ER) | payer MEDICAID, SELFPAY ==
[2022-08-14 08:20] VITALS: BP 160/87; PULSE 97; RESP 18; TEMP 36.8; O2SAT 97
--- NOTE | 2022-08-14 13:13 | ED.GENADUL_ITS ---
Discharge Plan Disposition Patient Disposition: HOME Condition: Stable Discharge Details Clinical Impression: Accidental overdose Primary Care Provider: Randy Willingham ED Provider: Leonor Simons Home Meds and New Rx's Prescriptions: Continued melatonin 3 mg tablet 3 - 5 mg PO HS Rx Instructions: 1-2 tabs (3-6 mg) po at hs albuterol sulfate 90 mcg/actuation HFA aerosol inhaler 1 inh IH ONCE omeprazole 20 mg capsule,delayed release(DR/EC) 20 mg PO DAILY loratadine 10 mg capsule 10 mg PO DAILY labetalol 100 mg tablet 50 mg PO DAILY Digestive Advantage Prob Gummy 250 million cell tablet,chewable 250 cell PO DAILY docusate sodium 100 mg capsule 100 mg PO DAILY lidocaine 3.5 % adhesive patch,medicated 1 patch topical DIRECTED peg 3350-electrolytes [Golytely] 236-22.74-6.74 -5.86 gram recon soln 240 ml PO Q10M Qty: 4000 0RF Rx Instructions: until fecal effluent is clear medroxyprogesterone [Depo-Provera] 150 mg/mL syringe 150 mg IM every 3 months Qty: 1 5RF Rx Instructions: bring syringe to [facility] for administration. quetiapine [Seroquel] 25 mg tablet 25 mg PO BID fluoxetine 10 mg capsule 10 mg PO DAILY ondansetron 4 mg tablet,disintegrating 4 mg PO Q4H PRN (Reason: nausea and vomiting) Qty: 7 0RF clonidine HCl [Catapres] 0.2 MG tablet 0.2 mg PO HS epinephrine 0.3 mg/0.3 mL auto-injector 0.3 ml SC ONCE PRN (Reason: anaphylaxis) Qty: 2 0RF Rx Instructions: as a single dose; may repeat once acetaminophen 500 mg Tablet 1,000 mg PO PRN PRN sucralfate [Carafate] 1 gram tablet 1 g PO BID Qty: 60 0RF Discharge Instructions Additional Instructions: stay away marijuana and other drugs, it seems to have the reverse effect on your anxiety go home and drink tea and stay hydrated relax for the remainder of the day return should you have new or worsening complaints Referrals: Randy Willingham PA [Primary Care Provider] - Discharge Data Discharge Date/Time-TO BE ENTERED AT DEPARTURE: 08/14/22 09:24 Medical Decision Making Patient is maintaining secretions, given warm tea and she has a she is improved Tolerating p.o. without incident Return precautions discussed and patient understanding Medical Records Medical records reviewed: Yes I reviewed the patient's medical records. Lab Data Lab results reviewed: Yes I reviewed the patient's lab results. HPI General Date/Time Provider Initiated Documentation: 08/14/22 08:22 . HPI Narrative: This 27-year-old female presents for her third visit in several hours for globus sensation and overwhelming anxiety. States that she is trying to eat and drink and she felt like something is stuck in her throat . She states she consumed a large edible marijuana gummy at approximately 4 AM today. She states she feels throat. She denies any chest pain or shortness of breath. She has any dizziness or weakness. She states she feels very anxious. Related Data Home Medications Medication Instructions Recorded Confirmed clonidine HCl 0.2 mg tablet 0.2 mg PO HS 03/29/13 08/14/22 (Catapres) acetaminophen 500 mg tablet 1,000 mg PO PRN PRN 10/30/19 08/14/22 albuterol sulfate 90 mcg/actuation 1 inh inhalation ONCE 05/13/20 08/14/22 aerosol inhaler loratadine 10 mg capsule 10 mg PO DAILY 07/31/20 08/14/22 omeprazole 20 mg capsule,delayed 20 mg PO DAILY 07/31/20 08/14/22 release medroxyprogesterone 150 mg/mL 150 mg IM every 3 months #1 SYRG 09/21/21 08/14/22 intramuscular syringe (Depo-Provera) Bacillus coagulans 250 million 250 cell PO DAILY 09/25/21 08/14/22 cell chewable tablet (Digestive Advantage Probiotic Gummy) labetalol 100 mg tablet 50 mg PO DAILY 09/25/21 08/14/22 melatonin 3 mg tablet 3 - 5 mg PO HS 09/25/21 08/14/22 fluoxetine 10 mg capsule 10 mg PO DAILY 01/29/22 08/14/22 quetiapine 25 mg tablet (Seroquel) 25 mg PO BID 01/29/22 08/14/22 docusate sodium 100 mg capsule 100 mg PO DAILY 05/17/22 08/14/22 lidocaine 3.5 % topical patch 1 patch topical DIRECTED 05/17/22 08/14/22 peg 3350-electrolytes 236 240 ml PO Q10M #4,000 mL 05/20/22 08/14/22 gram-22.74 gram-6.74 gram-5.86 gram solution (Golytely) sucralfate 1 gram tablet (Carafate) 1 g PO BID #60 tabs 05/21/22 08/14/22 ondansetron 4 mg disintegrating 4 mg PO Q4H PRN nausea and 06/22/22 08/14/22 tablet vomiting #7 tabs epinephrine 0.3 mg/0.3 mL 0.3 ml subcut ONCE PRN anaphylaxis 08/14/22 08/14/22 injection, auto-injector #2 ea Previous Rx's Medication Instructions Recorded medroxyprogesterone 150 mg/mL 150 mg IM every 3 months #1 SYRG 09/21/21 intramuscular syringe (Depo-Provera) peg 3350-electrolytes 236 240 ml PO Q10M #4,000 mL 05/20/22 gram-22.74 gram-6.74 gram-5.86 gram solution (Golytely) sucralfate 1 gram tablet (Carafate) 1 g PO BID #60 tabs 05/21/22 ondansetron 4 mg disintegrating 4 mg PO Q4H PRN nausea and 06/22/22 tablet vomiting #7 tabs epinephrine 0.3 mg/0.3 mL 0.3 ml subcut ONCE PRN anaphylaxis 08/14/22 injection, auto-injector #2 ea Allergies Allergy/AdvReac Type Severity Reaction Status Date / Time fluticasone Allergy Severe unknown Verified 08/14/22 01:13 [From Flovent HFA] lisinopril Allergy Intermediate unknown Verified 08/14/22 01:13 paroxetine HCl [From Paxil] Allergy Intermediate Hives Verified 08/14/22 01:13 polyethylene glycol 3350 Allergy Intermediate unknown Verified 08/14/22 01:13 [From Miralax] risperidone [From Risperdal] Allergy Intermediate Hives Verified 08/14/22 01:13 NSAIDS (Non-Steroidal Allergy Due to Verified 08/14/22 01:13 Anti-Inflamma prior kidney damage acetaminophen AdvReac Nausea Unverified 08/14/22 01:13 amoxicillin AdvReac Nausea Verified 08/14/22 01:13 seafood Allergy Intermediate unknown Uncoded 08/14/22 01:13 enviornmental Allergy Mild sneezing Uncoded 08/14/22 01:13 General Stated Complaint: GenMedical MARY KAY: 5 Review of Systems All systems reviewed & are unremarkable except as noted in HPI and below PFSH All Active Problems (Updated 08/14/22 @ 09:15 by HARRISON Nava) Accidental marijuana overdose (Acute) Accidental overdose (Acute) Hyperplastic colon polyp (Acute) Rectal polyp (Acute) Chronic kidney disease, stage 1 (Chronic 12/31/16) from renal infection as a child elevated BP resulting 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 Patient is using the Depo- Provera for menstrual cycle control. Depression (12/31/16) Drug abuse, episodic use Dysuria Family history of colon cancer Fatigue Generalized headaches (12/31/16) Hemolytic uremic syndrome History of allergic reaction History of mastoiditis Hypertrophy of tonsils and adenoids Illiteracy Per caregiver she is able to read and write, she needs assitance with comprehension of more complex words. Jaw pain Mesenteric lymphadenitis Otalgia, right ear Overactive bladder (02/09/18) Pain, dental PTSD (post-traumatic stress disorder) RBC microcytosis Steatosis of liver SASHA (stress urinary incontinence, female) Suicidal ideation TMJ tenderness, left Vitamin D deficiency Surgical History (Updated 06/29/22 @ 06:23 by Connie Aparicio RN) History of colonoscopy (~06/2022) History of kidney surgery Hx of tooth extraction Social History Smoking/Tobacco Use Status: Current every day Tobacco Type: e-cigarettes Smoking risk assessment performed?: Yes Alcohol Intake: former Drug use: Socially Substance use type: marijuana Details: last used 4 months ago Sexually active: Yes (female partner only now(May 2022). Has never had intercourse) Do you think of yourself as: lesbian/cash/homosexual What is your relationship status?: never Panel score (0-1 are the most socially isolated patients): 0 Do you feel safe at home: Yes Do you feel safe in your relationship?: Yes Additional Social history: Unable to assess kristen Female Reproductive History Menstrual control method: progesterone injection History History 0 Para Hx # Term Pregnancies Multiple births Hx # Pregnancies Ectopic pregnancies AB induced Hx Number of Living Children AB spontaneous Exam Const General: cooperative and comfortable Orientation: alert and oriented x3 HENMT Other: Uvula midline, no edema, no trismus, maintaining secretions, no stridor Eyes Pupils: PERRL Neck Other: No stridor Resp Effort & Inspection: normal respiratory effort Cardio Rate: regular rate Rhythm: regular rhythm GI Inspection: normal to inspection Other: non-tender abdominal exam Skin General skin exam: no rashes or lesions noted Neuro General: patient alert and patient oriented x3 Course Vital Signs Vital signs: Vital Signs Temperature 36.8 C 08/14/22 08:20 Pulse 97 H 08/14/22 08:20 Respiratory Rate 18 08/14/22 08:20 Blood Pressure 160/87 H 08/14/22 08:20 Pulse Oximetry 97 08/14/22 08:20 Temperature 36.8 C 08/14/22 08:20 Temperature Source Temporal Artery Scan 08/14/22 08:20 Pulse 97 H 08/14/22 08:20 Respiratory Rate 18 08/14/22 08:20 Respiratory Effort Non-Labored 08/14/22 09:09 Blood Pressure 160/87 H 08/14/22 08:20 Blood Pressure Position Sitting 08/14/22 08:20 Pulse Oximetry 97 08/14/22 08:20 Oxygen Delivery Method Room Air 08/14/22 08:20 Oxygen Flow Rate 0 08/14/22 08:20 Pain Level 8 08/14/22 08:20
== END 2022-08-14 09:24 | disposition home or self-care (01) ==
PROVIDERS: Emergency Provider Physician Assistant; PCP Physician Assistant Medical
DX: T40.711A Poisoning by cannabis, accidental (unintentional), initial encounter (principal); F41.9 Anxiety disorder, unspecified; F90.9 Attention-deficit hyperactivity disorder, unspecified type; F32.9 Major depressive disorder, single episode, unspecified; F17.290 Nicotine dependence, other tobacco product, uncomplicated
CPT/HCPCS: 99283; 99284

== ENCOUNTER 2022-08-14 13:40 | Emergency (ER) | payer MEDICAID, SELFPAY ==
--- NOTE | 2022-08-14 13:45 | RT.EKG_ITS ---
APPROVED REPORT Exam: Resting ECG Reason for Exam: epigastric pain Patient Location: E HR:80 bpm ECG Measurements Heart Rate 80 AXIS ND 129 P 35 QRSd 87 QRS 28 QT 385 T 11 QTc 444 Conclusion Sinus rhythm...normal P axis, V-rate 60- 99
--- NOTE | 2022-08-14 13:57 | W.ED.GENAD ---
Discharge Plan Disposition Patient Disposition: HOME Condition: Improving Discharge Details Clinical Impression: Accidental marijuana overdose Primary Care Provider: Randy Willingham ED Provider: Oswald Tripp Home Meds and New Rx's Prescriptions: New ondansetron 4 mg tablet,disintegrating 4 mg PO TID PRN3 Days Qty: 9 0RF Continued melatonin 3 mg tablet 3 - 5 mg PO HS Rx Instructions: 1-2 tabs (3-6 mg) po at hs albuterol sulfate 90 mcg/actuation HFA aerosol inhaler 1 inh IH ONCE omeprazole 20 mg capsule,delayed release(DR/EC) 20 mg PO DAILY loratadine 10 mg capsule 10 mg PO DAILY labetalol 100 mg tablet 50 mg PO DAILY Digestive Advantage Prob Gummy 250 million cell tablet,chewable 250 cell PO DAILY docusate sodium 100 mg capsule 100 mg PO DAILY lidocaine 3.5 % adhesive patch,medicated 1 patch topical DIRECTED peg 3350-electrolytes [Golytely] 236-22.74-6.74 -5.86 gram recon soln 240 ml PO Q10M Qty: 4000 0RF Rx Instructions: until fecal effluent is clear medroxyprogesterone [Depo-Provera] 150 mg/mL syringe 150 mg IM every 3 months Qty: 1 5RF Rx Instructions: bring syringe to [facility] for administration. quetiapine [Seroquel] 25 mg tablet 25 mg PO BID fluoxetine 10 mg capsule 10 mg PO DAILY ondansetron 4 mg tablet,disintegrating 4 mg PO Q4H PRN (Reason: nausea and vomiting) Qty: 7 0RF clonidine HCl [Catapres] 0.2 MG tablet 0.2 mg PO HS epinephrine 0.3 mg/0.3 mL auto-injector 0.3 ml SC ONCE PRN (Reason: anaphylaxis) Qty: 2 0RF Rx Instructions: as a single dose; may repeat once acetaminophen 500 mg Tablet 1,000 mg PO PRN PRN sucralfate [Carafate] 1 gram tablet 1 g PO BID Qty: 60 0RF Discharge Instructions Additional Instructions: Zofran as directed. Stay away from marijuana use. Rest, regular fluids, return earlier should you have new or worsening complaints. [id number]-[id number] medications as directed for symptomatic control. Contact your primary care provider Tuesday morning to discuss your ER visit, ongoing symptoms, need for outpatient reevaluation. Discharge Data Discharge Date/Time-TO BE ENTERED AT DEPARTURE: 08/14/22 18:08 Medical Decision Making <HARRISON Nava - Last Filed: 08/15/22 13:12> Patient appears anxious but is maintaining secretions Given this is her fourth visit to the emergency department I did order EKG and mom She is also receiving Ativan I suspect this is an adverse reaction associated with a marijuana overdose <HARRISON Portillo - Last Filed: 08/14/22 17:08> Patient appears anxious but is maintaining secretions Given this is her fourth visit to the emergency department I did order EKG and mom She is also receiving Ativan I suspect this is an adverse reaction associated with a marijuana overdose 1530: Oswald Tripp PA-C I assumed care of this 27-year-old female from my colleague HARRISON Simons, please see her initial HPI and examination. At time of signout awaiting laboratory values, Ativan, IV fluids, reevaluation. Laboratory values reveal minimal nonspecific leukocytosis, anion gap is unremarkable, creatinine 0.7 with a GFR greater than 123. Tox screen positive for THC. POC negative Upon reevaluation patient is resting comfortably, wakes easily to verbal stimuli. She reports that overall she is feeling much improved, that her jitteriness has greatly improved and that she only has a slight burning in her throat. She is able to tolerate p.o. intake without difficulty. She appears well, nontoxic, able to manage secretions without difficulty, speaks in full sentences. Abdomen is soft, nontender. She does question if she can use nokq-eoo-lvdgwfc medications such as Tums or Maalox. I will provide a prescription for Zofran for her nausea and vomiting. Patient reports feeling well enough to be discharged home. Standard discharge and return precautions were provided. Patient understands, is agreeable to this plan, and has no additional questions or concerns upon discharge. This documentation was generated using [email or web address].gration system, please disregard any oddities of phrase or misspellings. Medical Records Medical records reviewed: Yes I reviewed the patient's medical records. Lab Data Lab results reviewed: Yes I reviewed the patient's lab results. Labs: Laboratory Tests Range/Units 08/14/22 08/14/22 08/14/22 15:10 15:45 15:45 WBC (4.4-10.8) 10^3/uL 12.99 H RBC (3.93-5.22) 10^6/uL 5.33 H Hgb (11.2-15.7) g/dL 12.7 Hct (36.0-46.0) % 40.4 MCV (80-95) fL 76 L MCH (27.0-33.0) pg 23.8 L MCHC (32.0-36.0) % 31.4 L RDW (11.7-14.6) % 14.6 Plt Count (130-400) 10^3/uL 299 MPV (8.0-11.0) fL 12.5 H Immature Gran % 0.4 Neutrophils % 73.4 Lymphocytes % 16.2 Monocytes % 9.1 Eosinophils % 0.5 Basophils % 0.4 Nucleated RBC % (0.0-0.3) % 0.0 Absolute Neutrophils (1.2-6.7) 10^3/uL 9.53 H Absolute Lymphocytes (1.2-3.4) 10^3/uL 2.10 Absolute Monocytes (0.1-0.8) 10^3/uL 1.18 H Absolute Eosinophils (0.0-0.7) 10^3/uL 0.06 Absolute Basophils (0.0-0.2) 10^3/uL 0.05 Sodium (136-145) mmol/L 136 Potassium (3.5-5.1) mmol/L 3.4 L Chloride (98-107) mmol/L 100 Carbon Dioxide (21.0-32.0) mmol/L 26.5 Anion Gap (3-11) mmol/L 9.5 BUN (7-18) mg/dL 8 Creatinine (0.55-1.02) mg/dL 0.7 Est GFR (CKD-EPI 2020) (mL/min/1.73m2) 123.01 Glucose (74-106) mg/dL 101 Calcium (8.5-10.1) mg/dL 9.4 Total Bilirubin (0.2-1.0) mg/dL 0.7 AST (15-37) U/L 11 L ALT (14-59) U/L 21 Alkaline Phosphatase (46-116) U/L 92 Total Protein (6.4-8.2) g/dL 7.9 Albumin (3.4-5.0) g/dL 4.1 Urine Opiates Screen (Negative) Negative Urine Methadone Screen (Negative) Negative Ur Barbiturates Screen (Negative) Negative Ur Tricyclics Screen (Negative) Negative Ur Amphetamines Screen (Negative) Negative U Benzodiazepines Scrn (Negative) Negative Urine Cocaine Screen (Negative) Negative Ur THC Screen (Negative) Positive A HPI <HARRISON Nava - Last Filed: 08/15/22 13:12> General Date/Time Provider Initiated Documentation: 08/14/22 13:44. HPI Narrative: This 27-year-old female presents for her fourth emergency department visit for likely accidental overdose on an edible marijuana gummy. She thinks it was approximately 600 mg of THC containing. She denies any chest pain but is now reporting some epigastric pain and feeling overwhelmed. She states she is nauseous and has been vomiting. She states she And able to tolerate p.o. She denies any fever or chills. She has not taken any additional substances since she left the emergency department per patient. She does mention . She has a regular alcohol consumption. Related Data Home Medications Medication Instructions Recorded Confirmed clonidine HCl 0.2 mg tablet 0.2 mg PO HS 03/29/13 08/14/22 (Catapres) acetaminophen 500 mg tablet 1,000 mg PO PRN PRN 10/30/19 08/14/22 albuterol sulfate 90 mcg/actuation 1 inh inhalation ONCE 05/13/20 08/14/22 aerosol inhaler loratadine 10 mg capsule 10 mg PO DAILY 07/31/20 08/14/22 omeprazole 20 mg capsule,delayed 20 mg PO DAILY 07/31/20 08/14/22 release medroxyprogesterone 150 mg/mL 150 mg IM every 3 months #1 SYRG 09/21/21 08/14/22 intramuscular syringe (Depo-Provera) Bacillus coagulans 250 million 250 cell PO DAILY 09/25/21 08/14/22 cell chewable tablet (Digestive Advantage Probiotic Gummy) labetalol 100 mg tablet 50 mg PO DAILY 09/25/21 08/14/22 melatonin 3 mg tablet 3 - 5 mg PO HS 09/25/21 08/14/22 fluoxetine 10 mg capsule 10 mg PO DAILY 01/29/22 08/14/22 quetiapine 25 mg tablet (Seroquel) 25 mg PO BID 01/29/22 08/14/22 docusate sodium 100 mg capsule 100 mg PO DAILY 05/17/22 08/14/22 lidocaine 3.5 % topical patch 1 patch topical DIRECTED 05/17/22 08/14/22 peg 3350-electrolytes 236 240 ml PO Q10M #4,000 mL 05/20/22 08/14/22 gram-22.74 gram-6.74 gram-5.86 gram solution (Golytely) sucralfate 1 gram tablet (Carafate) 1 g PO BID #60 tabs 05/21/22 08/14/22 ondansetron 4 mg disintegrating 4 mg PO Q4H PRN nausea and 06/22/22 08/14/22 tablet vomiting #7 tabs epinephrine 0.3 mg/0.3 mL 0.3 ml subcut ONCE PRN anaphylaxis 08/14/22 08/14/22 injection, auto-injector #2 ea ondansetron 4 mg disintegrating 4 mg PO TID PRN 3 days #9 tabs 08/14/22 tablet Previous Rx's Medication Instructions Recorded medroxyprogesterone 150 mg/mL 150 mg IM every 3 months #1 SYRG 09/21/21 intramuscular syringe (Depo-Provera) peg 3350-electrolytes 236 240 ml PO Q10M #4,000 mL 05/20/22 gram-22.74 gram-6.74 gram-5.86 gram solution (Golytely) sucralfate 1 gram tablet (Carafate) 1 g PO BID #60 tabs 05/21/22 ondansetron 4 mg disintegrating 4 mg PO Q4H PRN nausea and 06/22/22 tablet vomiting #7 tabs epinephrine 0.3 mg/0.3 mL 0.3 ml subcut ONCE PRN anaphylaxis 08/14/22 injection, auto-injector #2 ea ondansetron 4 mg disintegrating 4 mg PO TID PRN 3 days #9 tabs 08/14/22 tablet Allergies Allergy/AdvReac Type Severity Reaction Status Date / Time fluticasone Allergy Severe unknown Verified 08/14/22 01:13 [From Flovent HFA] lisinopril Allergy Intermediate unknown Verified 08/14/22 01:13 paroxetine HCl [From Paxil] Allergy Intermediate Hives Verified 08/14/22 01:13 polyethylene glycol 3350 Allergy Intermediate unknown Verified 08/14/22 01:13 [From Miralax] risperidone [From Risperdal] Allergy Intermediate Hives Verified 08/14/22 01:13 NSAIDS (Non-Steroidal Allergy Due to Verified 08/14/22 01:13 Anti-Inflamma prior kidney damage acetaminophen AdvReac Nausea Unverified 08/14/22 01:13 amoxicillin AdvReac Nausea Verified 08/14/22 01:13 seafood Allergy Intermediate unknown Uncoded 08/14/22 01:13 enviornmental Allergy Mild sneezing Uncoded 08/14/22 01:13 General MARY KAY: 5 Review of Systems <HARRISON Nava - Last Filed: 08/15/22 13:12> All systems reviewed & are unremarkable except as noted in HPI and below PFSH <HARRISON Nava - Last Filed: 08/15/22 13:12> All Active Problems (Updated 08/14/22 @ 15:47 by HARRISON Nava) Accidental marijuana overdose (Acute) Accidental overdose (Acute) Hyperplastic colon polyp (Acute) Rectal polyp (Acute) Chronic kidney disease, stage 1 (Chronic 12/31/16) from renal infection as a child elevated BP resulting 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 Patient is using the Depo-Provera for menstrual cycle control. Depression (12/31/16) Drug abuse, episodic use Dysuria Family history of colon cancer Fatigue Generalized headaches (12/31/16) Hemolytic uremic syndrome History of allergic reaction History of mastoiditis Hypertrophy of tonsils and adenoids Illiteracy Per caregiver she is able to read and write, she needs assitance with comprehension of more complex words. Jaw pain Mesenteric lymphadenitis Otalgia, right ear Overactive bladder (02/09/18) Pain, dental PTSD (post-traumatic stress disorder) RBC microcytosis Steatosis of liver SASHA (stress urinary incontinence, female) Suicidal ideation TMJ tenderness, left Vitamin D deficiency Surgical History (Updated 06/29/22 @ 06:23 by Connie Aparicio RN) History of colonoscopy (~06/2022) History of kidney surgery Hx of tooth extraction Social History Smoking/Tobacco Use Status: Current every day Tobacco Type: e-cigarettes Smoking risk assessment performed?: Yes Alcohol Intake: former Drug use: Socially Substance use type: marijuana Sexually active: Yes (female partner only now(May 2022). Has never had intercourse) Do you think of yourself as: lesbian/cash/homosexual What is your relationship status?: never Panel score (0-1 are the most socially isolated patients): 0 Do you feel safe at home: Yes Do you feel safe in your relationship?: Yes Additional Social history: Unable to assess [facility] Female Reproductive History Menstrual control method: progesterone injection History History 0 Para Hx # Term Pregnancies Multiple births Hx # Pregnancies Ectopic pregnancies AB induced Hx Number of Living Children AB spontaneous Exam <HARRISON Nava - Last Filed: 08/15/22 13:12> Const General: cooperative, comfortable and no acute distress HENMT Other: maintaining secretions uvula midline Resp Effort & Inspection: normal respiratory effort Cardio Rate: regular rate GI Inspection: normal to inspection Skin General skin exam: no rashes or lesions noted Sign Out <HARRISON Nava - Last Filed: 08/15/22 13:12> Sign Out Data: Sign Out Comment: pending labs, ativan, disp0 Last updated by Leonor Simons PA at 08/14/22 15:44
[2022-08-14 14:09] VITALS: BP 152/97; PULSE 84; RESP 18; TEMP 36.9; O2SAT 97
[2022-08-14 15:49] LABS: *AMPHETAMINES SCREEN URINE Negative (Negative); *BARBITURATES SCREEN URINE Negative (Negative); *BENZODIAZEPINES SCREEN URINE Negative (Negative); Cannabinoids THC Positive (Negative); Cocaine Screen,Urine Negative (Negative); METHADONE URINE SCREEN Negative (Negative); OPIATES URINE SCREEN Negative (Negative)
[2022-08-14] MEDS: LORazepam 2 MG/ML VIAL 1 MG IVP (15:51)
[2022-08-14] MEDS: Normal Saline 1,000 ML 1000 ML IV (15:52)
[2022-08-14 15:55] LABS: Tricyclic Antidepressants Negative (Negative)
[2022-08-14 16:01] LABS: Abs Immature Grans 0.05 10^3/uL (0.0-0.06); Absolute Basophil Count 0.05 10^3/uL (0.0-0.2); Absolute Eosinophil Count 0.06 10^3/uL (0.0-0.7); Absolute Monocyte Count 1.18 10^3/uL (0.1-0.8); Basophils % 0.4; Eosinophils % 0.5; HCT 40.4 % (36.0-46.0); HGB 12.7 g/dL (11.2-15.7); Immature Grans % 0.4; Lymphocytes % 16.2; MCH 23.8 pg (27.0-33.0); MCHC 31.4 % (32.0-36.0); MCV 76 fL (80-95); MPV 12.5 fL (8.0-11.0); Monocytes % 9.1; Neutrophils % 73.4; Platelet Count 299 10^3/uL (130-400); RBC 5.33 10^6/uL (3.93-5.22); RDW 14.6 % (11.7-14.6); RDW-SD 39.7 fL; WBC 12.99 10^3/uL (4.4-10.8)
[2022-08-14 16:06] LABS: Absolute Neutrophil Count 9.53 10^3/uL (1.2-6.7)
[2022-08-14] MEDS: Mylanta Suspension 30 ML CUP PO (16:18)
[2022-08-14 16:21] LABS: ALT 21 U/L (14-59); AST 11 U/L (15-37); Albumin 4.1 g/dL (3.4-5.0); Alkaline Phosphatase 92 U/L (46-116); Anion Gap 9.5 mmol/L (3-11); BUN 8 mg/dL (7-18); Bilirubin, Total 0.7 mg/dL (0.2-1.0); CO2 26.5 mmol/L (21.0-32.0); CREATININE 0.7 mg/dL (0.55-1.02); Calcium 9.4 mg/dL (8.5-10.1); Chloride 100 mmol/L (98-107); Estimated GFR 123.01 (mL/min/1.73m2); Glucose 101 mg/dL (74-106); Potassium 3.4 mmol/L (3.5-5.1); Sodium 136 mmol/L (136-145); Total Protein 7.9 g/dL (6.4-8.2)
== END 2022-08-14 18:08 | disposition home or self-care (01) ==
PROVIDERS: Physician Assistant; Emergency Provider Physician Assistant; PCP Physician Assistant Medical
DX: T40.711A Poisoning by cannabis, accidental (unintentional), initial encounter (principal); F17.290 Nicotine dependence, other tobacco product, uncomplicated
CPT/HCPCS: 80053; 80307; 93005; 96361; 96374; 99284; 85025; 93010; J2060

== ENCOUNTER 2022-08-15 16:13 | Emergency (ER) | payer MEDICAID, SELFPAY ==
[2022-08-15 16:28] VITALS: BP 124/95; PULSE 100; RESP 20; TEMP 36.5; O2SAT 98
--- NOTE | 2022-08-15 17:39 | ED.GENADUL_ITS ---
Discharge Plan Disposition Patient Disposition: HOME Condition: Stable Discharge Details Clinical Impression: Acute dehydration, Nausea & vomiting, Rectal bleeding, Depression Primary Care Provider: Randy Willingham ED Provider: Dinesh Solis Home Meds and New Rx's Prescriptions: Continued melatonin 3 mg tablet 3 - 5 mg PO HS Rx Instructions: 1-2 tabs (3-6 mg) po at hs albuterol sulfate 90 mcg/actuation HFA aerosol inhaler 1 inh IH ONCE loratadine 10 mg capsule 10 mg PO DAILY labetalol 100 mg tablet 50 mg PO DAILY Digestive Advantage Prob Gummy 250 million cell tablet,chewable 250 cell PO DAILY lidocaine 3.5 % adhesive patch,medicated 1 patch topical DIRECTED medroxyprogesterone [Depo-Provera] 150 mg/mL syringe 150 mg IM every 3 months Qty: 1 5RF Rx Instructions: [facility] to [facility] for administration. quetiapine [Seroquel] 25 mg tablet 25 mg PO BID fluoxetine 10 mg capsule 10 mg PO DAILY ondansetron 4 mg tablet,disintegrating 4 mg PO Q4H PRN (Reason: nausea and vomiting) Qty: 7 0RF epinephrine 0.3 mg/0.3 mL auto-injector 0.3 ml SC ONCE PRN (Reason: anaphylaxis) Qty: 2 0RF Rx Instructions: as a single dose; may repeat once acetaminophen 500 mg Tablet 1,000 mg PO PRN PRN sucralfate [Carafate] 1 gram tablet 1 g PO BID Qty: 60 0RF Discharge Instructions Instructions: Rectal Bleeding (ED), Depression (ED), Acute Nausea and Vomiting (ED) Additional Instructions: Drink small amounts of fluid often in order to stay hydrated. Use Zofran as prescribed for nausea. Please follow-up with your general surgeon regarding rectal polyps. Please follow-up with [facility] for psychiatric services. Please contact your primary care physician to arrange follow-up. Return to the ER immediately for any worsening or new concerning symptoms. Referrals: [facility] [Provider Group] [facility] [Outside] Randy Willingham PA [Primary Care Provider] - Medical Decision Making 1745 --27-year-old female with nausea and vomiting 2 days postingestion of the edible THC product. Patient noncompliant with Zofran that was prescribed yesterday. She appears clinically dehydrated. I will give IV fluid bolus and Zofran IV. Consider electrolyte abnormalities. I will check chemistry. Patient also notes small blood on toilet paper when wiping. She has a history of rectal polyp that was excised. We will perform rectal exam with neuropsychology service director. Patient also notes depression. She is currently not suicidal but has had thoughts of harming himself in the past. I will refer her to [facility] for outpatient follow-up for depression. 185 --labs reviewed and nondiagnostic. Rectal exam was performed with female nurse neuropsychology service director present and no bleeding present. No obvious polyp. Patient was encouraged to follow-up with general surgery who has seen her recently for rectal polyps. 1934 --patient notes feeling much better. Tolerating p.o. intake. I reviewed all results with the patient. We discussed discharge plan including follow-up with PCP as well as general surgery and [facility]. Disposition decision was made weighing the risks and benefits of hospitalization versus outpatient treatment, the risk for further decompensation, and the patient's wishes. The patient was stable and requested discharge. Prior to discharge, my usual and customary return precautions were reviewed with the patient - this included follow-up instructions and reason to return to the emergency department if condition worsens, does not improve as expected, or other new concerns arise. HPI General Mode of arrival: ambulatory . Date/Time Provider Initiated Documentation: 08/15/22 17:13 . Limitations to Documentation: no limitations . Information obtained by: patient . HPI Narrative: 27-year-old female well-known to the emergency department presents today with chief complaint of nausea and vomiting. Patient notes that since she accidentally ingested an edible THC gummy 2 days ago she has had persistent nausea and vomiting. Patient was seen here initially with acute ingestion and intoxication and then seen the following day for nausea and vomiting. She notes that she took Zofran last night and was able to sleep. Today she has had persistent nausea and vomiting all day. She has not taken Zofran today. She feels dehydrated. Symptoms are severe. She has no associated abdominal pain. Patient also notes some burning discomfort in her throat. Patient also states that she had some small blood on toilet paper after wiping. There is no blood in her stool. There is no melena. Related Data Home Medications Medication Instructions Recorded Confirmed acetaminophen 500 mg tablet 1,000 mg PO PRN PRN 10/30/19 08/15/22 albuterol sulfate 90 mcg/actuation 1 inh inhalation ONCE 05/13/20 08/15/22 aerosol inhaler loratadine 10 mg capsule 10 mg PO DAILY 07/31/20 08/15/22 medroxyprogesterone 150 mg/mL 150 mg IM every 3 months #1 SYRG 09/21/21 08/15/22 intramuscular syringe (Depo-Provera) Bacillus coagulans 250 million 250 cell PO DAILY 09/25/21 08/15/22 cell chewable tablet (Digestive Advantage Probiotic Gummy) labetalol 100 mg tablet 50 mg PO DAILY 09/25/21 08/15/22 melatonin 3 mg tablet 3 - 5 mg PO HS 09/25/21 08/15/22 fluoxetine 10 mg capsule 10 mg PO DAILY 01/29/22 08/15/22 quetiapine 25 mg tablet (Seroquel) 25 mg PO BID 01/29/22 08/15/22 lidocaine 3.5 % topical patch 1 patch topical DIRECTED 05/17/22 08/15/22 sucralfate 1 gram tablet (Carafate) 1 g PO BID #60 tabs 05/21/22 08/15/22 ondansetron 4 mg disintegrating 4 mg PO Q4H PRN nausea and 06/22/22 08/15/22 tablet vomiting #7 tabs epinephrine 0.3 mg/0.3 mL 0.3 ml subcut ONCE PRN anaphylaxis 08/14/22 08/15/22 injection, auto-injector #2 ea Previous Rx's Medication Instructions Recorded medroxyprogesterone 150 mg/mL 150 mg IM every 3 months #1 SYRG 09/21/21 intramuscular syringe (Depo-Provera) sucralfate 1 gram tablet (Carafate) 1 g PO BID #60 tabs 05/21/22 ondansetron 4 mg disintegrating 4 mg PO Q4H PRN nausea and 06/22/22 tablet vomiting #7 tabs epinephrine 0.3 mg/0.3 mL 0.3 ml subcut ONCE PRN anaphylaxis 08/14/22 injection, auto-injector #2 ea Allergies Allergy/AdvReac Type Severity Reaction Status Date / Time fluticasone Allergy Severe unknown Verified 08/14/22 01:13 [From Flovent HFA] lisinopril Allergy Intermediate unknown Verified 08/14/22 01:13 paroxetine HCl [From Paxil] Allergy Intermediate Hives Verified 08/14/22 01:13 polyethylene glycol 3350 Allergy Intermediate unknown Verified 08/14/22 01:13 [From Miralax] risperidone [From Risperdal] Allergy Intermediate Hives Verified 08/14/22 01:13 NSAIDS (Non-Steroidal Allergy Due to Verified 08/14/22 01:13 Anti-Inflamma prior kidney damage acetaminophen AdvReac Nausea Unverified 08/14/22 01:13 amoxicillin AdvReac Nausea Verified 08/14/22 01:13 seafood Allergy Intermediate unknown Uncoded 08/14/22 01:13 enviornmental Allergy Mild sneezing Uncoded 08/14/22 01:13 General Stated Complaint: GenMedical MARY KAY: 4 Review of Systems All systems reviewed & are unremarkable except as noted in HPI and below Constitutional Constitutional: Denies fever(s) Gastrointestinal Gastrointestinal: Denies abdominal pain, Reports nausea and Reports vomiting PFSH All Active Problems (Updated 08/15/22 @ 19:04 by Dinesh Solis MD) Accidental marijuana overdose (Acute) Accidental overdose (Acute) Acute dehydration (Acute) Nausea & vomiting (Acute) Rectal bleeding (Acute) Depression (Chronic) Hyperplastic colon polyp (Acute) Rectal polyp (Acute) Chronic kidney disease, stage 1 (Chronic 12/31/16) from renal infection as a child elevated BP resulting 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 Patient is using the Depo- Provera for menstrual cycle control. Depression (12/31/16) Drug abuse, episodic use Dysuria Family history of colon cancer Fatigue Generalized headaches (12/31/16) Hemolytic uremic syndrome History of allergic reaction History of mastoiditis Hypertrophy of tonsils and adenoids Illiteracy Per caregiver she is able to read and write, she needs assitance with comprehension of more complex words. Jaw pain Mesenteric lymphadenitis Otalgia, right ear Overactive bladder (02/09/18) Pain, dental PTSD (post-traumatic stress disorder) RBC microcytosis Steatosis of liver SASHA (stress urinary incontinence, female) Suicidal ideation TMJ tenderness, left Vitamin D deficiency Surgical History History of colonoscopy (~06/2022) History of kidney surgery Hx of tooth extraction Social History Smoking/Tobacco Use Status: Current every day Tobacco Type: e-cigarettes Smoking risk assessment performed?: Yes Alcohol Intake: former Drug use: Socially Substance use type: marijuana Details: ate THC gummys 08/13/22 Sexually active: Yes (female partner only now(May 2022). Has never had intercourse) Do you think of yourself as: lesbian/cash/homosexual What is your relationship status?: never Panel score (0-1 are the most socially isolated patients): 0 In current or past relationships, have you been: other Do you feel safe at home: Yes Do you feel safe in your relationship?: No Additional Social history: feels scared when her girlfriend is around her she says she trusted her and now she doesn't Female Reproductive History Menstrual control method: progesterone injection History History 0 Para Hx # Term Pregnancies Multiple births Hx # Pregnancies Ectopic pregnancies AB induced Hx Number of Living Children AB spontaneous Exam Const General: cooperative and no acute distress HENMT Mouth: mucous membranes dry Eyes Conjunctivae: normal conjunctivae Sclera: normal sclerae Neck Neck: trachea midline and supple Resp Auscultation: clear to auscultation bilaterally, no rales, no rhonchi and no wheezes Cardio Rate: regular rate and not tachycardic Rhythm: regular rhythm GI Palpation: soft, not firm, no guarding, no masses, not rigid and nontender Rectal Exam - female: visual inspection normal (Performed with female nurse neuropsychology service director present) Skin General skin exam: no rashes or lesions noted Neuro General: patient alert, patient awake and tone normal Psych Appearance: grossly normal Mental Status: mental status grossly normal and other (Patient notes intermittent depression) Mood: other (Patient notes intermittent depression) Affect: normal affect Thought Content: suicidality Course Vital Signs Vital signs: Vital Signs Temperature 36.5 C 08/15/22 16:28 Pulse 100 H 08/15/22 16:28 Respiratory Rate 20 08/15/22 16:28 Blood Pressure 124/95 H 08/15/22 16:28 Pulse Oximetry 98 08/15/22 16:28 Temperature 36.5 C 08/15/22 16:28 Temperature Source Skin 08/15/22 16:28 Pulse 100 H 08/15/22 16:28 Respiratory Rate 20 08/15/22 16:28 Blood Pressure 124/95 H 08/15/22 16:28 Blood Pressure Position Sitting 08/15/22 16:28 Pulse Oximetry 98 08/15/22 16:28 Oxygen Delivery Method Room Air 08/15/22 16:28 Oxygen Flow Rate 0 08/15/22 16:28 Pain Level 8 08/15/22 16:28 Comment 08/15/22 16:28
[2022-08-15 17:49] LABS: Abs Immature Grans 0.06 10^3/uL (0.0-0.06); Absolute Basophil Count 0.06 10^3/uL (0.0-0.2); Absolute Eosinophil Count 0.15 10^3/uL (0.0-0.7); Absolute Lymphocyte Count 2.53 10^3/uL (1.2-3.4); Absolute Monocyte Count 1.03 10^3/uL (0.1-0.8); Absolute Neutrophil Count 7.99 10^3/uL (1.2-6.7); Basophils % 0.5; Eosinophils % 1.3; HCT 41.5 % (36.0-46.0); HGB 13.2 g/dL (11.2-15.7); Immature Grans % 0.5; Lymphocytes % 21.4; MCH 24.2 pg (27.0-33.0); MCHC 31.8 % (32.0-36.0); MCV 76 fL (80-95); MPV 12.4 fL (8.0-11.0); Monocytes % 8.7; Neutrophils % 67.6; Platelet Count 292 10^3/uL (130-400); RBC 5.46 10^6/uL (3.93-5.22); RDW 14.6 % (11.7-14.6); RDW-SD 39.6 fL; WBC 11.82 10^3/uL (4.4-10.8)
[2022-08-15] MEDS: Normal Saline 1,000 ML 1000 ML IV (18:01)
[2022-08-15 18:02] VITALS: RESP 16
[2022-08-15] MEDS: Ondansetron 4 MG/2 ML VIAL IVP (18:07)
[2022-08-15] MEDS: Mylanta Suspension 30 ML CUP PO (18:07)
--- NOTE | 2022-08-15 18:11 | NUR.NOTE ---
patient told this publications writer that she feels scared and nervous around her girlfriend. She stated she feels nervous and thinks about cutting herself but does not think she will do that at this time. she told this publications writer of the people she has for a support system, her grandpa and grandma. She stated she feels like she can talk to them about her feelings. She also stated she has not seen a therapist in 4 months but thinks its a good idea to start seeing him again.
[2022-08-15 18:31] LABS: ALT 23 U/L (14-59); AST 14 U/L (15-37); Albumin 4.2 g/dL (3.4-5.0); Alkaline Phosphatase 96 U/L (46-116); Anion Gap 9.4 mmol/L (3-11); BUN 9 mg/dL (7-18); Bilirubin, Total 0.3 mg/dL (0.2-1.0); CO2 25.6 mmol/L (21.0-32.0); CREATININE 0.7 mg/dL (0.55-1.02); Calcium 9.5 mg/dL (8.5-10.1); Chloride 103 mmol/L (98-107); Estimated GFR 123.01 (mL/min/1.73m2); Glucose 92 mg/dL (74-106); Potassium 4.3 mmol/L (3.5-5.1); Sodium 138 mmol/L (136-145); Total Protein 7.5 g/dL (6.4-8.2)
== END 2022-08-15 19:42 | disposition home or self-care (01) ==
PROVIDERS: Emergency Provider Student in an Organized Health Care Education/Training Program; PCP Physician Assistant Medical
DX: E86.0 Dehydration (principal); R11.2 Nausea with vomiting, unspecified; K62.5 Hemorrhage of anus and rectum; F32.A Depression, unspecified; Z91.14 Patient's other noncompliance with medication regimen
CPT/HCPCS: 80053; 96361; 96374; 99284; 85025; J2405

== ENCOUNTER 2022-08-16 18:31 | Emergency (ER) | payer MEDICAID, SELFPAY ==
[2022-08-16] VITALS (54 sets, daily range): BP systolic 113–154; BP diastolic 62–87; PULSE 104–148; RESP 16–31; TEMP 37.6–38.7; O2SAT 91–97
--- NOTE | 2022-08-16 18:45 | DI.RAD_ITS ---
Exam(s) XR PORTABLE CHEST AP EXAM: XR PORTABLE CHEST AP CLINICAL HISTORY: fever TECHNIQUE: 2D digital imaging was performed of the chest. One image was obtained. An AP view was ob tained. COMPARISON: CR,XR XR CHEST 1V IN DI DEPT from 05/08/2022 FINDINGS: MEDIASTINUM: Normal. HEART: Normal. PULMONARY VASCULATURE: Normal. LUNGS: Clear. PLEURAL SPACE: No pleural effusion or pneumothorax. BONE:Within normal limits for the patient's age. OTHER FINDINGS:Normal. IMPRESSION: No acute pulmonary findings. DATA REPOSITORY: RADIATION DOSE DELIVERED:
--- NOTE | 2022-08-16 18:45 | RT.EKG_ITS ---
APPROVED REPORT Exam: Resting ECG Reason for Exam: tachycardia Patient Location: E HR:132 bpm ECG Measurements Heart Rate 132 AXIS NE 123 P 25 QRSd 77 QRS 18 QT 293 T 6 QTc 434 Conclusion Sinus tachycardia...rate> 99 sinus tachycardia, normal axis, normal intervals, non ischemic
[2022-08-16 19:03] LABS: Abs Immature Grans 0.05 10^3/uL (0.0-0.06); Absolute Basophil Count 0.04 10^3/uL (0.0-0.2); Absolute Eosinophil Count 0.05 10^3/uL (0.0-0.7); Absolute Lymphocyte Count 1.01 10^3/uL (1.2-3.4); Absolute Monocyte Count 0.97 10^3/uL (0.1-0.8); Absolute Neutrophil Count 10.06 10^3/uL (1.2-6.7); Basophils % 0.3; Eosinophils % 0.4; HCT 41.1 % (36.0-46.0); HGB 13.2 g/dL (11.2-15.7); Immature Grans % 0.4; Lymphocytes % 8.3; MCH 24.3 pg (27.0-33.0); MCHC 32.1 % (32.0-36.0); MCV 76 fL (80-95); MPV 12.6 fL (8.0-11.0); Neutrophils % 82.6; Platelet Count 249 10^3/uL (130-400); RBC 5.44 10^6/uL (3.93-5.22); RDW 14.6 % (11.7-14.6); RDW-SD 38.9 fL; WBC 12.18 10^3/uL (4.4-10.8)
--- NOTE | 2022-08-16 19:23 | ED.GENADUL_ITS ---
Discharge Plan Disposition Patient Disposition: HOME Condition: Improving Discharge Details Clinical Impression: COVID Primary Care Provider: Randy Willingham ED Provider: Oswald Tripp Home Meds and New Rx's Prescriptions: New promethazine 25 mg suppository 25 mg RI Q6H PRNQty: 12 0RF Continued melatonin 3 mg tablet 3 - 5 mg PO HS Rx Instructions: 1-2 tabs (3-6 mg) po at hs albuterol sulfate 90 mcg/actuation HFA aerosol inhaler 1 inh IH ONCE loratadine 10 mg capsule 10 mg PO DAILY labetalol 100 mg tablet 50 mg PO DAILY Digestive Advantage Prob Gummy 250 million cell tablet,chewable 250 cell PO DAILY lidocaine 3.5 % adhesive patch,medicated 1 patch topical DIRECTED medroxyprogesterone [Depo-Provera] 150 mg/mL syringe 150 mg IM every 3 months Qty: 1 5RF Rx Instructions: [facility] to [facility] administration. quetiapine [Seroquel] 25 mg tablet 25 mg PO HS fluoxetine 10 mg capsule 10 mg PO DAILY ondansetron 4 mg tablet,disintegrating 4 mg PO Q4H PRN (Reason: nausea and vomiting) Qty: 7 0RF epinephrine 0.3 mg/0.3 mL auto-injector 0.3 ml SC ONCE PRN (Reason: anaphylaxis) Qty: 2 0RF Rx Instructions: as a single dose; may repeat once acetaminophen 500 mg Tablet 1,000 mg PO PRN PRN sucralfate [Carafate] 1 gram tablet 1 g PO BID Qty: 60 0RF Discharge Instructions Instructions: COVID-19 (Coronavirus Disease 2019) (ED) Additional Instructions: Covid test is positive. Paxlovid as directed. I have also provided you a prescription for Phenergan suppositories if you continue to have nausea and vomiting not controlled by your Zofran. While taking Paxlovid you may want to decrease your Seroquel dose in half as well as use other sources of contraceptive protection other than your intramuscular injection every 3 months. Rest. Plenty of fluids to avoid dehydration. Please watch for new or worsening symptoms and return to the ER for any concerns. Lastly, please contact your primary care provider tomorrow to discuss your ER visit and need for outpatient reevaluation likely through telemedicine given you are COVID positive. Medical Decision Making This is a 27-year-old female with multiple recent ER visits presenting to the ER via EMS for ongoing nausea and vomiting, unable to hold her medications down, and a fever. EMS reports fever, she presents afebrile. She does have tachycardia in the 140s. Will obtain EKG, septic work-up, and will obtain a single troponin and D-dimer given her chest discomfort and shortness of breath after vomiting. Will obtain IV access and provide 2 L IV fluid. She does take a beta-martha and tells me she has not been able to take this medication because of her nausea and vomiting. Given her tachycardia and noncompliance with medication, will give IV labetalol Laboratory values reveal mild nonspecific leukocytosis of 12.18, D-dimer normal at 297, will not pursue CTA of the chest. Sodium 135, electrolytes otherwise unremarkable. Creatinine 0.9 with a GFR of 90.98. Troponin less than 50, urinalysis with 10-20 white cells. Negative leuk esterase. Culture is indicated. She denies any dysuria or lower abdominal pain. Will await culture COVID Positive Discussed COVID results with patient. She would like to move forward with Paxlovid. I will contact telemetry pharmacy. She appears well, heart rate now 120 I discussed the case with telemetry pharmacy, they recommend potentially decreasing her Seroquel dose in half as well as using other means of contraceptive while taking Paxlovid. No other recommendations. First dose given here in the ER. Patient developed a fever here in the ER. She was given p.o. Tylenol, IV Toradol, and is now receiving her additional liter of IV fluid. Symptoms responding nicely to medication. Heart rate now 106. Fever is decreasing. O2 sats are 97% on room air. She has been tolerating p.o. intake and has had no vomiting while here in the ER. Given her ongoing vomiting I will provide a prescription for a suppository Phenergan. Medical Records Medical records reviewed: Yes I reviewed the patient's medical records. Imaging Data Radiologic Study: Attestation: I personally reviewed and interpreted this imaging study as follows: Imaging: X-Ray Radiologist's impression: PROCEDURE INFORMATION: Exam: XR Chest Exam date and time: 08/16/2022 8:28 PM Age: 27 years old Clinical indication: Fever TECHNIQUE: Imaging protocol: Radiologic exam of the chest. Views: 1 view. COMPARISON: XR CHEST 1V IN DI DEPT 05/08/2022 10:36 PM FINDINGS: Lungs: Low lung volumes. No consolidation. Pleural spaces: No pleural effusion. No pneumothorax. Heart/Mediastinum: No cardiomegaly. Bones/joints: Unremarkable. IMPRESSION: No acute findings Lab Data Lab results reviewed: Yes I reviewed the patient's lab results. Labs: 08/16/22 20:21 Urine - Reflex from Ua Urine Culture - Pending 08/16/22 20:05 Blood Blood Culture - Pending 08/16/22 20:00 Blood Blood Culture - Pending Laboratory Tests Range/Units 08/16/22 08/16/22 08/16/22 18:50 18:50 18:50 WBC (4.4-10.8) 10^3/uL 12.18 H RBC (3.93-5.22) 10^6/uL 5.44 H Hgb (11.2-15.7) g/dL 13.2 Hct (36.0-46.0) % 41.1 MCV (80-95) fL 76 L MCH (27.0-33.0) pg 24.3 L MCHC (32.0-36.0) % 32.1 RDW (11.7-14.6) % 14.6 Plt Count (130-400) 10^3/uL 249 MPV (8.0-11.0) fL 12.6 H Immature Gran % 0.4 Neutrophils % 82.6 Lymphocytes % 8.3 Monocytes % 8.0 Eosinophils % 0.4 Basophils % 0.3 Nucleated RBC % (0.0-0.3) % 0.0 Absolute Neutrophils (1.2-6.7) 10^3/uL 10.06 H Absolute Lymphocytes (1.2-3.4) 10^3/uL 1.01 L Absolute Monocytes (0.1-0.8) 10^3/uL 0.97 H Absolute Eosinophils (0.0-0.7) 10^3/uL 0.05 Absolute Basophils (0.0-0.2) 10^3/uL 0.04 PT (9.3-11.0) sec INR (0.9-1.1) APTT (21.0-27.5) sec D-Dimer (<500) ng/mlFEU VBG Lactate (0.6-1.4) mmol/L 1.0 Sodium (136-145) mmol/L 135 L Potassium (3.5-5.1) mmol/L 3.9 Chloride (98-107) mmol/L 101 Carbon Dioxide (21.0-32.0) mmol/L 25.9 Anion Gap (3-11) mmol/L 8.1 BUN (7-18) mg/dL 8 Creatinine (0.55-1.02) mg/dL 0.9 Est GFR (CKD-EPI 2020) (mL/min/1.73m2) 90.98 Glucose (74-106) mg/dL 98 Calcium (8.5-10.1) mg/dL 9.2 Total Bilirubin (0.2-1.0) mg/dL 0.5 AST (15-37) U/L 11 L ALT (14-59) U/L 22 Alkaline Phosphatase (46-116) U/L 91 Troponin I (<or=60) ng/L Total Protein (6.4-8.2) g/dL 7.9 Albumin (3.4-5.0) g/dL 3.9 Urine Color (Yellow) Urine Clarity (Clear) Urine pH (5-8) Ur Specific [place] (1.005-1.025) Urine Protein (Negative) mg/dL Urine Ketones (Negative) mg/dL Urine Blood (Negative) Urine Nitrite (Negative) Urine Bilirubin (Negative) Urine Urobilinogen (Up TO 0.2) EU/dL Ur Leukocyte Esterase (Negative) Urine RBC (0-2) HPF Urine WBC (0-5) HPF Ur Epithelial Cells (Negative) HPF Urine Crystals (Negative) HPF Urine Bacteria (Negative) HPF Urine Mucus (Negative) Urine Other (Negative) Ur Culture Indicated? Urine Glucose (Negative) mg/dL COVID-19 Source SARS-CoV-2 (PCR) (Negative) Influenza Type A (PCR) (Negative) Influenza Type B (PCR) (Negative) RSV (PCR) (Negative) Range/Units 08/16/22 08/16/22 08/16/22 19:33 19:33 19:35 WBC (4.4-10.8) 10^3/uL RBC (3.93-5.22) 10^6/uL Hgb (11.2-15.7) g/dL Hct (36.0-46.0) % MCV (80-95) fL MCH (27.0-33.0) pg MCHC (32.0-36.0) % RDW (11.7-14.6) % Plt Count (130-400) 10^3/uL MPV (8.0-11.0) fL Immature Gran % Neutrophils % Lymphocytes % Monocytes % Eosinophils % Basophils % Nucleated RBC % (0.0-0.3) % Absolute Neutrophils (1.2-6.7) 10^3/uL Absolute Lymphocytes (1.2-3.4) 10^3/uL Absolute Monocytes (0.1-0.8) 10^3/uL Absolute Eosinophils (0.0-0.7) 10^3/uL Absolute Basophils (0.0-0.2) 10^3/uL PT (9.3-11.0) sec 9.9 INR (0.9-1.1) 1.0 APTT (21.0-27.5) sec 26.4 D-Dimer (<500) ng/mlFEU 297 VBG Lactate (0.6-1.4) mmol/L Sodium (136-145) mmol/L Potassium (3.5-5.1) mmol/L Chloride (98-107) mmol/L Carbon Dioxide (21.0-32.0) mmol/L Anion Gap (3-11) mmol/L BUN (7-18) mg/dL Creatinine (0.55-1.02) mg/dL Est GFR (CKD-EPI 2020) (mL/min/1.73m2) Glucose (74-106) mg/dL Calcium (8.5-10.1) mg/dL Total Bilirubin (0.2-1.0) mg/dL AST (15-37) U/L ALT (14-59) U/L Alkaline Phosphatase (46-116) U/L Troponin I (<or=60) ng/L < 50 Total Protein (6.4-8.2) g/dL Albumin (3.4-5.0) g/dL Urine Color (Yellow) Urine Clarity (Clear) Urine pH (5-8) Ur Specific [place] (1.005-1.025) Urine Protein (Negative) mg/dL Urine Ketones (Negative) mg/dL Urine Blood (Negative) Urine Nitrite (Negative) Urine Bilirubin (Negative) Urine Urobilinogen (Up TO 0.2) EU/dL Ur Leukocyte Esterase (Negative) Urine RBC (0-2) HPF Urine WBC (0-5) HPF Ur Epithelial Cells (Negative) HPF Urine Crystals (Negative) HPF Urine Bacteria (Negative) HPF Urine Mucus (Negative) Urine Other (Negative) Ur Culture Indicated? Urine Glucose (Negative) mg/dL COVID-19 Source Nasopharynx SARS-CoV-2 (PCR) (Negative) Positive A Influenza Type A (PCR) (Negative) Negative Influenza Type B (PCR) (Negative) Negative RSV (PCR) (Negative) Negative Range/Units 08/16/22 08/16/22 20:21 22:10 WBC (4.4-10.8) 10^3/uL RBC (3.93-5.22) 10^6/uL Hgb (11.2-15.7) g/dL Hct (36.0-46.0) % MCV (80-95) fL MCH (27.0-33.0) pg MCHC (32.0-36.0) % RDW (11.7-14.6) % Plt Count (130-400) 10^3/uL MPV (8.0-11.0) fL Immature Gran % Neutrophils % Lymphocytes % Monocytes % Eosinophils % Basophils % Nucleated RBC % (0.0-0.3) % Absolute Neutrophils (1.2-6.7) 10^3/uL Absolute Lymphocytes (1.2-3.4) 10^3/uL Absolute Monocytes (0.1-0.8) 10^3/uL Absolute Eosinophils (0.0-0.7) 10^3/uL Absolute Basophils (0.0-0.2) 10^3/uL PT (9.3-11.0) sec INR (0.9-1.1) APTT (21.0-27.5) sec D-Dimer (<500) ng/mlFEU VBG Lactate (0.6-1.4) mmol/L Sodium (136-145) mmol/L Potassium (3.5-5.1) mmol/L Chloride (98-107) mmol/L Carbon Dioxide (21.0-32.0) mmol/L Anion Gap (3-11) mmol/L BUN (7-18) mg/dL Creatinine (0.55-1.02) mg/dL Est GFR (CKD-EPI 2020) (mL/min/1.73m2) Glucose (74-106) mg/dL Calcium (8.5-10.1) mg/dL Total Bilirubin (0.2-1.0) mg/dL AST (15-37) U/L ALT (14-59) U/L Alkaline Phosphatase (46-116) U/L Troponin I (<or=60) ng/L < 50 Total Protein (6.4-8.2) g/dL Albumin (3.4-5.0) g/dL Urine Color (Yellow) Yellow Urine Clarity (Clear) Sl Cloudy Urine pH (5-8) 8.0 Ur Specific [place] (1.005-1.025) 1.025 Urine Protein (Negative) mg/dL 30 H Urine Ketones (Negative) mg/dL Negative Urine Blood (Negative) Negative Urine Nitrite (Negative) Negative Urine Bilirubin (Negative) Negative Urine Urobilinogen (Up TO 0.2) EU/dL 0.2 Ur Leukocyte Esterase (Negative) Negative Urine RBC (0-2) HPF 0-2 Urine WBC (0-5) HPF 10-20 H Ur Epithelial Cells (Negative) HPF Negative Urine Crystals (Negative) HPF Negative Urine Bacteria (Negative) HPF Rare Urine Mucus (Negative) Moderate Urine Other (Negative) Mod Transitional Ur Culture Indicated? Yes Urine Glucose (Negative) mg/dL Negative COVID-19 Source SARS-CoV-2 (PCR) (Negative) Influenza Type A (PCR) (Negative) Influenza Type B (PCR) (Negative) RSV (PCR) (Negative) ECG Data Attestation: I personally reviewed and interpreted this ECG (s) as follows: Interpretation: Sinus tachycardia, ventricular rate of 132, no STEMI HPI General Mode of arrival: EMS . Date/Time Provider Initiated Documentation: 08/16/22 18:35 . Limitations to Documentation: no limitations . Information obtained by: patient . HPI Narrative: This is a 27-year-old female presenting via EMS for evaluation of ongoing nausea and vomiting, not able to hold down any of her medication, found to have a fever by EMS. Patient has a past medical history that includes ADHD, bipolar 2 disorder, depression, episodic drug abuse, generalized headaches. She has had multiple recent ER visits status post an accidental marijuana overdose. She does vape daily. She denies any headache, sore throat, abdominal pain, diarrhea, constipation, dysuria. She does report a mild dry cough and reports chest irritation with coughing or after vomiting. She also states that after vomiting it is difficult to catch her breath. She denies pain or swelling in her calves. Related Data Home Medications Medication Instructions Recorded Confirmed acetaminophen 500 mg tablet 1,000 mg PO PRN PRN 10/30/19 08/16/22 albuterol sulfate 90 mcg/actuation 1 inh inhalation ONCE 05/13/20 08/16/22 aerosol inhaler loratadine 10 mg capsule 10 mg PO DAILY 07/31/20 08/16/22 medroxyprogesterone 150 mg/mL 150 mg IM every 3 months #1 SYRG 09/21/21 08/16/22 intramuscular syringe (Depo-Provera) Bacillus coagulans 250 million 250 cell PO DAILY 09/25/21 08/16/22 cell chewable tablet (Digestive Advantage Probiotic Gummy) labetalol 100 mg tablet 50 mg PO DAILY 09/25/21 08/16/22 melatonin 3 mg tablet 3 - 5 mg PO HS 09/25/21 08/16/22 fluoxetine 10 mg capsule 10 mg PO DAILY 01/29/22 08/16/22 quetiapine 25 mg tablet (Seroquel) 25 mg PO HS 01/29/22 08/16/22 lidocaine 3.5 % topical patch 1 patch topical DIRECTED 05/17/22 08/16/22 sucralfate 1 gram tablet (Carafate) 1 g PO BID #60 tabs 05/21/22 08/16/22 ondansetron 4 mg disintegrating 4 mg PO Q4H PRN nausea and 06/22/22 08/16/22 tablet vomiting #7 tabs epinephrine 0.3 mg/0.3 mL 0.3 ml subcut ONCE PRN anaphylaxis 08/14/22 08/16/22 injection, auto-injector #2 ea promethazine 25 mg rectal 25 mg RI Q6H PRN #12 ea 08/16/22 suppository Previous Rx's Medication Instructions Recorded medroxyprogesterone 150 mg/mL 150 mg IM every 3 months #1 SYRG 09/21/21 intramuscular syringe (Depo-Provera) sucralfate 1 gram tablet (Carafate) 1 g PO BID #60 tabs 05/21/22 ondansetron 4 mg disintegrating 4 mg PO Q4H PRN nausea and 06/22/22 tablet vomiting #7 tabs epinephrine 0.3 mg/0.3 mL 0.3 ml subcut ONCE PRN anaphylaxis 08/14/22 injection, auto-injector #2 ea promethazine 25 mg rectal 25 mg RI Q6H PRN #12 ea 08/16/22 suppository Allergies Allergy/AdvReac Type Severity Reaction Status Date / Time fluticasone Allergy Severe unknown Verified 08/14/22 01:13 [From Flovent HFA] lisinopril Allergy Intermediate unknown Verified 08/14/22 01:13 paroxetine HCl [From Paxil] Allergy Intermediate Hives Verified 08/14/22 01:13 polyethylene glycol 3350 Allergy Intermediate unknown Verified 08/14/22 01:13 [From Miralax] risperidone [From Risperdal] Allergy Intermediate Hives Verified 08/14/22 01:13 NSAIDS (Non-Steroidal Allergy Due to Verified 08/14/22 01:13 Anti-Inflamma prior kidney damage acetaminophen AdvReac Nausea Unverified 08/14/22 01:13 amoxicillin AdvReac Nausea Verified 08/14/22 01:13 seafood Allergy Intermediate unknown Uncoded 08/14/22 01:13 enviornmental Allergy Mild sneezing Uncoded 08/14/22 01:13 General Stated Complaint: Nausea/Vomit/Diar MARY KAY: 2 Review of Systems Constitutional Constitutional: Reports fever(s), Denies headache(s) and Denies weakness ENT Ears, Nose, Mouth, and Throat: Denies headache(s) and Denies neck pain Cardiovascular Cardiovascular: Reports chest pain and Reports dyspnea Respiratory Respiratory: Reports cough and Reports dyspnea Gastrointestinal Gastrointestinal: Denies abdominal pain, Denies constipation, Denies diarrhea, Reports nausea and Reports vomiting Genitourinary Genitourinary: Denies dysuria Musculoskeletal Musculoskeletal: Denies back pain and Denies neck pain Integumentary/Breasts Skin/Breast: Denies rash Neurologic Neurologic: Denies headache(s) and Denies weakness Psychiatric Psychiatric: Reports anxiety PFSH All Active Problems Accidental marijuana overdose (Acute) Accidental overdose (Acute) Acute dehydration (Acute) Nausea & vomiting (Acute) Rectal bleeding (Acute) Depression (Chronic) COVID (Acute) Hyperplastic colon polyp (Acute) Rectal polyp (Acute) Chronic kidney disease, stage 1 (Chronic 12/31/16) from renal infection as a child elevated BP resulting 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 Patient is using the Depo- Provera for menstrual cycle control. Depression (12/31/16) Drug abuse, episodic use Dysuria Family history of colon cancer Fatigue Generalized headaches (12/31/16) Hemolytic uremic syndrome History of allergic reaction History of mastoiditis Hypertrophy of tonsils and adenoids Illiteracy Per caregiver she is able to read and write, she needs assitance with comprehension of more complex words. Jaw pain Mesenteric lymphadenitis Otalgia, right ear Overactive bladder (02/09/18) Pain, dental PTSD (post-traumatic stress disorder) RBC microcytosis Steatosis of liver SASHA (stress urinary incontinence, female) Suicidal ideation TMJ tenderness, left Vitamin D deficiency Surgical History History of colonoscopy (~06/2022) History of kidney surgery Hx of tooth extraction Social History Smoking/Tobacco Use Status: Current every day Tobacco Type: e-cigarettes Smoking risk assessment performed?: Yes Alcohol Intake: former Drug use: Socially Substance use type: marijuana Details: ate THC gummys 08/13/22 Sexually active: Yes (female partner only now(May 2022). Has never had intercourse) Do you think of yourself as: lesbian/cash/homosexual What is your relationship status?: never Panel score (0-1 are the most socially isolated patients): 0 In current or past relationships, have you been: other Do you feel safe at home: Yes Do you feel safe in your relationship?: No Female Reproductive History Menstrual control method: progesterone injection History History 0 Para Hx # Term Pregnancies Multiple births Hx # Pregnancies Ectopic pregnancies AB induced Hx Number of Living Children AB spontaneous Exam Const General: cooperative, comfortable and no acute distress Orientation: alert, awake and oriented x3 HENMT Head: normal to inspection, normocephalic and atraumatic Face and sinus: normal facial exam Mouth: moist mucous membranes abnormal (dry) Throat: posterior oropharynx normal Eyes General: appearance normal, both eyes and all related structures Conjunctivae: conjunctivae normal Neck Neck: normal visual inspection, full ROM, no lymphadenopathy, no meningeal signs, trachea midline, supple and nontender Resp Effort & Inspection: normal respiratory effort, able to speak in complete sentences and cough Quality of cough: dry (mild) Auscultation: clear to auscultation bilaterally Cardio Rate: tachycardic (140s) Rhythm: regular rhythm GI Inspection: obesity Palpation: soft, not firm, no guarding, no pulsatile masses and nontender Auscultation: normal bowel sounds Back/Spine/Pelvis Back: No back tenderness Skin General skin exam: no rashes or lesions noted Neuro General: patient alert, patient awake, moves all extremities and no focal motor deficits Cognition: normal cognition Speech: speech normal Gait: normal gait Sensory Exam: no sensory deficits noted Extrem General: normal to inspection, full ROM and capillary refill normal Psych Appearance: grossly normal Mental Status: mental status grossly normal Course Vital Signs Vital signs: Vital Signs Temperature 37.6 C 08/16/22 18:39 Pulse 148 H 08/16/22 18:39 Respiratory Rate 20 08/16/22 18:39 Blood Pressure 154/87 H 08/16/22 18:39 Pulse Oximetry 95 08/16/22 18:39 Temperature 37.6 C 08/16/22 18:39 Temperature Source Oral 08/16/22 18:39 Pulse 148 H 08/16/22 18:39 Respiratory Rate 20 08/16/22 18:39 Respiratory Effort Non-Labored 08/16/22 18:52 Blood Pressure 154/87 H 08/16/22 18:39 Blood Pressure Position Sitting 08/16/22 18:39 Pulse Oximetry 95 08/16/22 18:39 Oxygen Delivery Method Room Air 08/16/22 18:39 Oxygen Flow Rate 0 08/16/22 18:39 Lab/Test Results Lab/Test Results: 08/16/22 18:53 Blood Blood Culture - Pending 08/16/22 18:53 Blood Blood Culture - Pending Laboratory Tests Range/Units 08/16/22 08/16/22 18:50 18:50 WBC (4.4-10.8) 10^3/uL 12.18 H RBC (3.93-5.22) 10^6/uL 5.44 H Hgb (11.2-15.7) g/dL 13.2 Hct (36.0-46.0) % 41.1 MCV (80-95) fL 76 L MCH (27.0-33.0) pg 24.3 L MCHC (32.0-36.0) % 32.1 RDW (11.7-14.6) % 14.6 Plt Count (130-400) 10^3/uL 249 MPV (8.0-11.0) fL 12.6 H Immature Gran % 0.4 Neutrophils % 82.6 Lymphocytes % 8.3 Monocytes % 8.0 Eosinophils % 0.4 Basophils % 0.3 Nucleated RBC % (0.0-0.3) % 0.0 Absolute Neutrophils (1.2-6.7) 10^3/uL 10.06 H Absolute Lymphocytes (1.2-3.4) 10^3/uL 1.01 L Absolute Monocytes (0.1-0.8) 10^3/uL 0.97 H Absolute Eosinophils (0.0-0.7) 10^3/uL 0.05 Absolute Basophils (0.0-0.2) 10^3/uL 0.04 VBG Lactate (0.6-1.4) mmol/L 1.0
[2022-08-16 19:26] LABS: ALT 22 U/L (14-59); AST 11 U/L (15-37); Albumin 3.9 g/dL (3.4-5.0); Alkaline Phosphatase 91 U/L (46-116); Anion Gap 8.1 mmol/L (3-11); BUN 8 mg/dL (7-18); Bilirubin, Total 0.5 mg/dL (0.2-1.0); CO2 25.9 mmol/L (21.0-32.0); CREATININE 0.9 mg/dL (0.55-1.02); Calcium 9.2 mg/dL (8.5-10.1); Chloride 101 mmol/L (98-107); Estimated GFR 90.98 (mL/min/1.73m2); Glucose 98 mg/dL (74-106); Potassium 3.9 mmol/L (3.5-5.1); Sodium 135 mmol/L (136-145); Total Protein 7.9 g/dL (6.4-8.2)
[2022-08-16] MEDS: Normal Saline 1,000 ML 1000 ML IV (19:41)
[2022-08-16] MEDS: Ondansetron 4 MG/2 ML VIAL IVP (19:41)
[2022-08-16] MEDS: Labetalol 100 MG/20 ML VIAL 20 MG IVP (19:42)
[2022-08-16 19:59] LABS: PTT Activated 26.4 sec (21.0-27.5); Prothrombin Time 9.9 sec (9.3-11.0)
[2022-08-16 20:11] LABS: Troponin I < 50 ng/L (<or=60)
[2022-08-16 20:18] LABS: D-Dimer 297 ng/mlFEU (<500)
[2022-08-16 20:26] LABS: Bilirubin Negative (Negative); Blood Negative (Negative); Clarity Sl Cloudy (Clear); Glucose Negative (Negative); Ketones Negative (Negative); Leukocyte Esterase Negative (Negative); Nitrite Negative (Negative); Specific Gravity 1.025 (1.005-1.025); Urobilinogen 0.2 EU/dL (Up TO 0.2)
[2022-08-16 20:40] LABS: Bacteria Rare HPF (Negative); C & S Indicated? Yes; Crystals Negative HPF (Negative); Epithelial Cells Negative HPF (Negative); Mucus Moderate (Negative); Other Cells Mod Transitional (Negative); RBC 0-2 HPF (0-2)
[2022-08-16 20:42] LABS: Influenza A PCR Negative (Negative); Influenza B PCR Negative (Negative); RSV PCR Negative (Negative)
[2022-08-16 20:45] LABS: COVID-19 PCR Positive (Negative); Source Nasopharynx
--- NOTE | 2022-08-16 21:33 | DI.VRAD_ITS ---
PROCEDURE INFORMATION: Exam: XR Chest Exam date and time: 08/16/2022 8:28 PM Age: 27 years old Clinical indication: Fever TECHNIQUE: Imaging protocol: Radiologic exam of the chest. Views: 1 view. COMPARISON: XR CHEST 1V IN DI DEPT 05/08/2022 10:36 PM FINDINGS: Lungs: Low lung volumes. No consolidation. Pleural spaces: No pleural effusion. No pneumothorax. Heart/Mediastinum: No cardiomegaly. Bones/joints: Unremarkable. IMPRESSION: No acute findings. Dictated and Authenticated by: Santiago Corona MD. Ordering:ASHIA Akers MD
[2022-08-16] MEDS: Lactated Ringers 1,000 ML 1000 ML IV (22:04)
[2022-08-16] MEDS: Ketorolac 30 MG/ML VIAL IVP (22:08)
[2022-08-16] MEDS: Acetaminophen 500 MG TAB 1000 MG PO (22:10)
[2022-08-16 22:37] LABS: Troponin I < 50 ng/L (<or=60)
== END 2022-08-16 23:21 | disposition home or self-care (01) ==
PROVIDERS: Emergency Provider Physician Assistant; PCP Physician Assistant Medical
DX: U07.1 COVID-19 (principal); D72.829 Elevated white blood cell count, unspecified; F90.9 Attention-deficit hyperactivity disorder, unspecified type; F17.290 Nicotine dependence, other tobacco product, uncomplicated
CPT/HCPCS: 36415; 80053; 81025; 87040; 87637; 93005; 96361; 96374; 96375; 99284; 71045; 81003; 81015; 83605; 84484; 85025; 85379; 85610; 85730; 87086; 93010; 99285; J1885; J2405

== ENCOUNTER 2022-08-17 03:37 | Emergency (ER) | payer MEDICAID, SELFPAY ==
--- NOTE | 2022-08-17 03:32 | ED.GENADUL_ITS ---
Discharge Plan Disposition Patient Disposition: HOME Condition: Stable Discharge Details Clinical Impression: COVID, Nausea & vomiting Primary Care Provider: Randy Willingham ED Provider: Margoth Donohue Home Meds and New Rx's Prescriptions: Continued melatonin 3 mg tablet 3 - 5 mg PO HS Rx Instructions: 1-2 tabs (3-6 mg) po at hs albuterol sulfate 90 mcg/actuation HFA aerosol inhaler 1 inh IH ONCE loratadine 10 mg capsule 10 mg PO DAILY labetalol 100 mg tablet 50 mg PO DAILY Digestive Advantage Prob Gummy 250 million cell tablet,chewable 250 cell PO DAILY lidocaine 3.5 % adhesive patch,medicated 1 patch topical DIRECTED medroxyprogesterone [Depo-Provera] 150 mg/mL syringe 150 mg IM every 3 months Qty: 1 5RF Rx Instructions: [facility] to [facility]. quetiapine [Seroquel] 25 mg tablet 25 mg PO HS fluoxetine 10 mg capsule 10 mg PO DAILY ondansetron 4 mg tablet,disintegrating 4 mg PO Q4H PRN (Reason: nausea and vomiting) Qty: 7 0RF epinephrine 0.3 mg/0.3 mL auto-injector 0.3 ml SC ONCE PRN (Reason: anaphylaxis) Qty: 2 0RF Rx Instructions: as a single dose; may repeat once promethazine 25 mg suppository 25 mg NC Q6H PRNQty: 12 0RF acetaminophen 500 mg Tablet 1,000 mg PO PRN PRN sucralfate [Carafate] 1 gram tablet 1 g PO BID Qty: 60 0RF Discharge Instructions Instructions: Acute Nausea and Vomiting (ED), COVID-19 (Coronavirus Disease 2019) (ED) Additional Instructions: Drink plenty of fluids and get plenty of rest. Take the Phenergan as needed and directed for nausea and vomiting. Take Tylenol as needed and directed for pain or fever. Take the Paxlovid that as directed until finished. Follow-up with your primary care doctor in 1 week. Return to the emergency department with any worsening or new concerning symptoms. Discharge Data Discharge Physician: Margoth Donohue Medical Decision Making 27 yo F with a history of obesity, hypertension, depression, bipolar disorder history of PTSD who presents for general malaise, sore throat, nausea, vomiting and upper abdominal pain. This is patient's sixth visit in the past 4 days. She was initially seen here for nausea and intoxication after eating a marijuana gummy 4 days ago. She was seen here several hours ago for nausea and vomiting and diagnosed with COVID and started on Paxlovid. EMS reported a heart rate of 120s. Heart rate here 110. She has normal respiratory rate, oxygen saturation is afebrile. Abdomen is soft without significant tenderness, rigidity or guarding. Review of records from several hours ago note that patient had a white blood cell count of 12 with a normal D- dimer, 2 negative troponins, normal LFTs and bilirubin and a negative test. Phenergan suppository sent electronically to her pharmacy but patient states she feels that she needs some now. As patient denies any shortness of breath and has normal oxygen saturation and had a negative D-dimer several hours ago, do not see indication for imaging as PE appears unlikely. Discussed with patient at length that this is the expected course for COVID. She is vaccinated so discussed that the likelihood of progression to severe illness or is less likely. We will give a Phenergan suppository and a dose of Tylenol p.o. Her chart notes an adverse reaction of nausea to Tylenol but she states she has been taking this. She states she cannot take NSAIDs. Advised to follow up with the primary care doctor for re- evaluation. Usual and customary return precautions given prior to discharge. Medical Records Medical records reviewed: Yes I reviewed the patient's medical records. HPI General Mode of arrival: ambulatory . Date/Time Provider Initiated Documentation: 08/17/22 03:39 . Limitations to Documentation: no limitations . Information obtained by: patient . HPI Narrative: Patient is a 27-year-old female with multiple medical problems including hypertension, depression, ADHD, PTSD who presents for a complaint of nausea and vomiting, sore throat and stating I do not feel. This is patient's sixth visit in the last 4 days. She was initially seen here 4 days ago for intoxication after eating a marijuana gummy. She was seen here 8 hours ago last night and diagnosed with COVID and started on paxlovid. She states she also nausea and vomiting and upper abdominal pain. She also admits to feeling generally unwell with sore throat. She denies any chest pain or shortness of breath. Related Data Home Medications Medication Instructions Recorded Confirmed acetaminophen 500 mg tablet 1,000 mg PO PRN PRN 10/30/19 08/17/22 albuterol sulfate 90 mcg/actuation 1 inh inhalation ONCE 05/13/20 08/17/22 aerosol inhaler loratadine 10 mg capsule 10 mg PO DAILY 07/31/20 08/17/22 medroxyprogesterone 150 mg/mL 150 mg IM every 3 months #1 SYRG 09/21/21 08/17/22 intramuscular syringe (Depo-Provera) Bacillus coagulans 250 million 250 cell PO DAILY 09/25/21 08/17/22 cell chewable tablet (Digestive Advantage Probiotic Gummy) labetalol 100 mg tablet 50 mg PO DAILY 09/25/21 08/17/22 melatonin 3 mg tablet 3 - 5 mg PO HS 09/25/21 08/17/22 fluoxetine 10 mg capsule 10 mg PO DAILY 01/29/22 08/17/22 quetiapine 25 mg tablet (Seroquel) 25 mg PO HS 01/29/22 08/17/22 lidocaine 3.5 % topical patch 1 patch topical DIRECTED 05/17/22 08/17/22 sucralfate 1 gram tablet (Carafate) 1 g PO BID #60 tabs 05/21/22 08/17/22 ondansetron 4 mg disintegrating 4 mg PO Q4H PRN nausea and 06/22/22 08/17/22 tablet vomiting #7 tabs epinephrine 0.3 mg/0.3 mL 0.3 ml subcut ONCE PRN anaphylaxis 08/14/22 08/17/22 injection, auto-injector #2 ea promethazine 25 mg rectal 25 mg NC Q6H PRN #12 ea 08/16/22 08/17/22 suppository Previous Rx's Medication Instructions Recorded medroxyprogesterone 150 mg/mL 150 mg IM every 3 months #1 SYRG 09/21/21 intramuscular syringe (Depo-Provera) sucralfate 1 gram tablet (Carafate) 1 g PO BID #60 tabs 05/21/22 ondansetron 4 mg disintegrating 4 mg PO Q4H PRN nausea and 06/22/22 tablet vomiting #7 tabs epinephrine 0.3 mg/0.3 mL 0.3 ml subcut ONCE PRN anaphylaxis 08/14/22 injection, auto-injector #2 ea promethazine 25 mg rectal 25 mg NC Q6H PRN #12 ea 08/16/22 suppository Allergies Allergy/AdvReac Type Severity Reaction Status Date / Time fluticasone Allergy Severe unknown Verified 08/17/22 03:47 [From Flovent HFA] lisinopril Allergy Intermediate unknown Verified 08/17/22 03:47 paroxetine HCl [From Paxil] Allergy Intermediate Hives Verified 08/17/22 03:47 polyethylene glycol 3350 Allergy Intermediate unknown Verified 08/17/22 03:47 [From Miralax] risperidone [From Risperdal] Allergy Intermediate Hives Verified 08/17/22 03:47 NSAIDS (Non-Steroidal Allergy Due to Verified 08/17/22 03:47 Anti-Inflamma prior kidney damage acetaminophen AdvReac Nausea Unverified 08/17/22 03:47 amoxicillin AdvReac Nausea Verified 08/17/22 03:47 seafood Allergy Intermediate unknown Uncoded 08/17/22 03:47 enviornmental Allergy Mild sneezing Uncoded 08/17/22 03:47 General Stated Complaint: Nausea/Vomit/Diar MARY KAY: 2 Review of Systems All systems reviewed & are unremarkable except as noted in HPI and below Constitutional Constitutional: Reports as per HPI, Denies chills and Denies fever(s) Eyes Eyes: Denies blurry vision ENT Ears, Nose, Mouth, and Throat: Denies dizziness, Denies sore throat and Denies throat swelling Cardiovascular Cardiovascular: Denies chest pain and Denies dyspnea Respiratory Respiratory: Denies cough and Denies dyspnea Gastrointestinal Gastrointestinal: Denies abdominal pain, Denies diarrhea, Reports nausea and Reports vomiting Genitourinary Genitourinary: Denies hematuria and Denies dysuria Musculoskeletal Musculoskeletal: Denies back pain and Denies numbness Integumentary/Breasts Skin/Breast: Denies lesions and Denies rash Neurologic Neurologic: Denies dizziness, Denies localized weakness and Denies numbness Allergic/Immunologic Allergic/Immunologic: Denies throat swelling PFSH All Active Problems (Updated 08/17/22 @ 03:50 by Margoth Donohue DO) Accidental marijuana overdose (Acute) Accidental overdose (Acute) Acute dehydration (Acute) Nausea & vomiting (Acute) Rectal bleeding (Acute) Depression (Chronic) COVID (Acute) COVID (Acute) Hyperplastic colon polyp (Acute) Rectal polyp (Acute) Chronic kidney disease, stage 1 (Chronic 12/31/16) from renal infection as a child elevated BP resulting 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 Patient is using the Depo- Provera for menstrual cycle control. Depression (12/31/16) Drug abuse, episodic use Dysuria Family history of colon cancer Fatigue Generalized headaches (12/31/16) Hemolytic uremic syndrome History of allergic reaction History of mastoiditis Hypertrophy of tonsils and adenoids Illiteracy Per caregiver she is able to read and write, she needs assitance with comprehension of more complex words. Jaw pain Mesenteric lymphadenitis Otalgia, right ear Overactive bladder (02/09/18) Pain, dental PTSD (post-traumatic stress disorder) RBC microcytosis Steatosis of liver SASHA (stress urinary incontinence, female) Suicidal ideation TMJ tenderness, left Vitamin D deficiency Surgical History History of colonoscopy (~06/2022) History of kidney surgery Hx of tooth extraction Social History Smoking/Tobacco Use Status: Current every day Tobacco Type: e-cigarettes Smoking risk assessment performed?: Yes Alcohol Intake: former Drug use: Socially Substance use type: marijuana Details: ate THC gummys 08/13/22 Sexually active: Yes (female partner only now(May 2022). Has never had intercourse) Do you think of yourself as: lesbian/cash/homosexual What is your relationship status?: never Panel score (0-1 are the most socially isolated patients): 0 In current or past relationships, have you been: other Do you feel safe at home: Yes Do you feel safe in your relationship?: No Female Reproductive History Menstrual control method: progesterone injection History History 0 Para Hx # Term Pregnancies Multiple births Hx # Pregnancies Ectopic pregnancies AB induced Hx Number of Living Children AB spontaneous Exam Const General: cooperative and no acute distress Orientation: alert, awake and oriented x3 HENMT Head: normal to inspection Ears: hearing grossly normal bilaterally, external ears normal and TM's normal bilaterally Mouth: oral mucosae normal Throat: posterior oropharynx normal Eyes General: appearance normal, both eyes and all related structures Neck Neck: normal visual inspection Resp Effort & Inspection: normal respiratory effort and able to speak in complete sentences Auscultation: clear to auscultation bilaterally Cardio Rate: tachycardic Rhythm: regular rhythm GI Palpation: soft, not firm, no guarding, not rigid and nontender Skin General skin exam: no rashes or lesions noted Neuro General: patient alert, patient awake and patient oriented x3 Motor: muscle tone normal throughout Extrem General: normal to inspection and full ROM Psych Appearance: grossly normal Affect: normal affect
[2022-08-17 03:43] VITALS: BP 146/92; PULSE 111; RESP 16; TEMP 37.1; O2SAT 96
[2022-08-17] MEDS: Promethazine 25 MG SUPP PR (04:00)
[2022-08-17] MEDS: Acetaminophen 500 MG TAB 1000 MG PO (04:00)
[2022-08-17 04:20] LABS: Lipase 56 U/L (73-393)
[2022-08-17 04:21] VITALS: RESP 16
== END 2022-08-17 04:11 | disposition home or self-care (01) ==
LOC: ER 04:04
PROVIDERS: Emergency Provider Physician Assistant; PCP Physician Assistant Medical
DX: U07.1 COVID-19 (principal); I10 Essential (primary) hypertension
CPT/HCPCS: 83690; 99283; 99284

== ENCOUNTER 2022-08-17 10:02 | Emergency (ER) | payer MEDICAID, SELFPAY ==
[2022-08-17 10:20] VITALS: BP 128/79; PULSE 103; RESP 18; TEMP 37; O2SAT 97
[2022-08-17] MEDS: Ondansetron O.D.T. 4 MG TABEF PO (10:52)
[2022-08-17] MEDS: Promethazine 25 MG SUPP PR (10:52)
--- NOTE | 2022-08-17 11:02 | ED.GENADUL_ITS ---
Discharge Plan Disposition Patient Disposition: HOME Condition: Stable Discharge Details Clinical Impression: COVID, Nausea & vomiting Primary Care Provider: Randy Willingham ED Provider: Leonor Simons Home Meds and New Rx's Prescriptions: New promethazine 25 mg suppository 25 mg AK Q6H PRNQty: 12 0RF ondansetron HCl 4 mg tablet 4 mg PO Q8H Qty: 12 0RF Continued melatonin 3 mg tablet 3 - 5 mg PO HS Rx Instructions: 1-2 tabs (3-6 mg) po at hs albuterol sulfate 90 mcg/actuation HFA aerosol inhaler 1 inh IH ONCE loratadine 10 mg capsule 10 mg PO DAILY labetalol 100 mg tablet 50 mg PO DAILY Digestive Advantage Prob Gummy 250 million cell tablet,chewable 250 cell PO DAILY lidocaine 3.5 % adhesive patch,medicated 1 patch topical DIRECTED medroxyprogesterone [Depo-Provera] 150 mg/mL syringe 150 mg IM every 3 months Qty: 1 5RF Rx Instructions: [facility] to [facility] administration. quetiapine [Seroquel] 25 mg tablet 25 mg PO HS fluoxetine 10 mg capsule 10 mg PO DAILY ondansetron 4 mg tablet,disintegrating 4 mg PO Q4H PRN (Reason: nausea and vomiting) Qty: 7 0RF epinephrine 0.3 mg/0.3 mL auto-injector 0.3 ml SC ONCE PRN (Reason: anaphylaxis) Qty: 2 0RF Rx Instructions: as a single dose; may repeat once promethazine 25 mg suppository 25 mg AK Q6H PRNQty: 12 0RF acetaminophen 500 mg Tablet 1,000 mg PO PRN PRN sucralfate [Carafate] 1 gram tablet 1 g PO BID Qty: 60 0RF No Action ondansetron HCl 4 mg tablet 4 mg PO Q8H PRN (Reason: nausea and vomiting) Qty: 7 0RF Discharge Instructions Instructions: Acute Nausea and Vomiting (ED), Viral Syndrome (ED) Additional Instructions: Take the Phenergan as needed for nausea and vomiting, we approximately 30 minutes after the suppository to take your medications as you may vomit Clear liquid diet only for the next several hours and you may transition to bland foods thereafter Understand that this is the course of illness of COVID-19 and that these are normal symptoms for which you may treat with nausea medication, ibuprofen and Tylenol Should he develop new or worsening symptoms, please return for reassessment Referrals: Randy Willingham PA [Primary Care Provider] - 2 days Discharge Data Discharge Date/Time-TO BE ENTERED AT DEPARTURE: 08/17/22 12:01 Medical Decision Making Patient appears well She is able to tolerate her medicines and p.o. challenge in the emergency department She is discharged home on Phenergan and Zofran Of note this is a patient sixth visit to the emergency department for similar symptoms Patient is stable for discharge home at this time Initially she reported some suicidal ideation which she attributes to being unable to tolerate her antipsychotic meds, however after she was able to successfully take them in the emergency department she declined any suicidality and requested discharge home, she is fully alert, oriented, of decisional capacity discharge is appropriate at this time She is given the threshold to return should she have new or worsening complaints Medical Records Medical records reviewed: Yes I reviewed the patient's medical records. Lab Data Lab results reviewed: Yes I reviewed the patient's lab results. HPI General Date/Time Provider Initiated Documentation: 08/17/22 10:03 . HPI Narrative: This 27-year-old female presents with report of COVID-19 and nausea and vomiting. Initially patient told triage nurse that she was suicidal, however on my assessment she has not. She has no plan to harm her self. She really is frustrated regarding her course of illness and she has not been able to take her Prozac. She denies any fever or chills. She denies any chest pain or shortness of breath. She states she has been nauseous and denies any blood in vomitus. She has vomited numerous times per patient. She has also not filled the prescription that she was applied earlier today. Related Data Home Medications Medication Instructions Recorded Confirmed acetaminophen 500 mg tablet 1,000 mg PO PRN PRN 10/30/19 08/17/22 albuterol sulfate 90 mcg/actuation 1 inh inhalation ONCE 05/13/20 08/17/22 aerosol inhaler loratadine 10 mg capsule 10 mg PO DAILY 07/31/20 08/17/22 medroxyprogesterone 150 mg/mL 150 mg IM every 3 months #1 SYRG 09/21/21 08/17/22 intramuscular syringe (Depo-Provera) Bacillus coagulans 250 million 250 cell PO DAILY 09/25/21 08/17/22 cell chewable tablet (Digestive Advantage Probiotic Gummy) labetalol 100 mg tablet 50 mg PO DAILY 09/25/21 08/17/22 melatonin 3 mg tablet 3 - 5 mg PO HS 09/25/21 08/17/22 fluoxetine 10 mg capsule 10 mg PO DAILY 01/29/22 08/17/22 quetiapine 25 mg tablet (Seroquel) 25 mg PO HS 01/29/22 08/17/22 lidocaine 3.5 % topical patch 1 patch topical DIRECTED 05/17/22 08/17/22 sucralfate 1 gram tablet (Carafate) 1 g PO BID #60 tabs 05/21/22 08/17/22 ondansetron 4 mg disintegrating 4 mg PO Q4H PRN nausea and 06/22/22 08/17/22 tablet vomiting #7 tabs epinephrine 0.3 mg/0.3 mL 0.3 ml subcut ONCE PRN anaphylaxis 08/14/22 08/17/22 injection, auto-injector #2 ea promethazine 25 mg rectal 25 mg AK Q6H PRN #12 ea 08/16/22 08/17/22 suppository ondansetron HCl 4 mg tablet 4 mg PO Q8H #12 tabs 08/17/22 08/17/22 ondansetron HCl 4 mg tablet 4 mg PO Q8H PRN nausea and 08/17/22 vomiting #7 tabs promethazine 25 mg rectal 25 mg AK Q6H PRN #12 ea 08/17/22 08/17/22 suppository Previous Rx's Medication Instructions Recorded medroxyprogesterone 150 mg/mL 150 mg IM every 3 months #1 SYRG 09/21/21 intramuscular syringe (Depo-Provera) sucralfate 1 gram tablet (Carafate) 1 g PO BID #60 tabs 05/21/22 ondansetron 4 mg disintegrating 4 mg PO Q4H PRN nausea and 06/22/22 tablet vomiting #7 tabs epinephrine 0.3 mg/0.3 mL 0.3 ml subcut ONCE PRN anaphylaxis 08/14/22 injection, auto-injector #2 ea promethazine 25 mg rectal 25 mg AK Q6H PRN #12 ea 08/16/22 suppository ondansetron HCl 4 mg tablet 4 mg PO Q8H #12 tabs 08/17/22 ondansetron HCl 4 mg tablet 4 mg PO Q8H PRN nausea and 08/17/22 vomiting #7 tabs promethazine 25 mg rectal 25 mg AK Q6H PRN #12 ea 08/17/22 suppository Allergies Allergy/AdvReac Type Severity Reaction Status Date / Time fluticasone Allergy Severe unknown Verified 08/17/22 20:35 [From Flovent HFA] lisinopril Allergy Intermediate unknown Verified 08/17/22 20:35 paroxetine HCl [From Paxil] Allergy Intermediate Hives Verified 08/17/22 20:35 polyethylene glycol 3350 Allergy Intermediate unknown Verified 08/17/22 20:35 [From Miralax] risperidone [From Risperdal] Allergy Intermediate Hives Verified 08/17/22 20:35 NSAIDS (Non-Steroidal Allergy Due to Verified 08/17/22 20:35 Anti-Inflamma prior kidney damage acetaminophen AdvReac Nausea Unverified 08/17/22 20:35 amoxicillin AdvReac Nausea Verified 08/17/22 20:35 seafood Allergy Intermediate unknown Uncoded 08/17/22 20:35 enviornmental Allergy Mild sneezing Uncoded 08/17/22 20:35 General Stated Complaint: Nausea/Vomit/Diar MARY KAY: 3 Review of Systems All systems reviewed & are unremarkable except as noted in HPI and below PFSH All Active Problems (Updated 08/18/22 @ 00:08 by BETTYE RIDLEY) Accidental marijuana overdose (Acute) Accidental overdose (Acute) Acute dehydration (Acute) Nausea & vomiting (Acute) Rectal bleeding (Acute) Depression (Chronic) COVID (Acute) COVID (Acute) Hyperplastic colon polyp (Acute) Rectal polyp (Acute) Chronic kidney disease, stage 1 (Chronic 12/31/16) from renal infection as a child elevated BP resulting 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 Patient is using the Depo- Provera for menstrual cycle control. Depression (12/31/16) Drug abuse, episodic use Dysuria Family history of colon cancer Fatigue Generalized headaches (12/31/16) Hemolytic uremic syndrome History of allergic reaction History of mastoiditis Hypertrophy of tonsils and adenoids Illiteracy Per caregiver she is able to read and write, she needs assitance with comprehension of more complex words. Jaw pain Mesenteric lymphadenitis Otalgia, right ear Overactive bladder (02/09/18) Pain, dental PTSD (post-traumatic stress disorder) RBC microcytosis Steatosis of liver SASHA (stress urinary incontinence, female) Suicidal ideation TMJ tenderness, left Vitamin D deficiency Surgical History History of colonoscopy (~06/2022) History of kidney surgery Hx of tooth extraction Social History Smoking/Tobacco Use Status: Current every day Tobacco Type: e-cigarettes Smoking risk assessment performed?: Yes Alcohol Intake: former Drug use: Socially Substance use type: marijuana Details: ate THC gummys 08/13/22 Sexually active: Yes (female partner only now(May 2022). Has never had intercourse) Do you think of yourself as: lesbian/cash/homosexual What is your relationship status?: never Panel score (0-1 are the most socially isolated patients): 0 In current or past relationships, have you been: other Do you feel safe at home: Yes Do you feel safe in your relationship?: No Female Reproductive History Menstrual control method: progesterone injection History History 0 Para Hx # Term Pregnancies Multiple births Hx # Pregnancies Ectopic pregnancies AB induced Hx Number of Living Children AB spontaneous Exam Const General: cooperative, comfortable and no acute distress HENMT Other: Moist mucous membranes Eyes Sclera: sclerae normal Resp Effort & Inspection: normal respiratory effort Cardio Rate: regular rate GI Inspection: normal to inspection Other: Nontender abdominal exam Skin General skin exam: no rashes or lesions noted Neuro General: patient alert and patient oriented x3 Course Vital Signs Vital signs: Vital Signs Temperature 37 C 08/17/22 10:20 Pulse 103 H 08/17/22 10:20 Respiratory Rate 18 08/17/22 10:20 Blood Pressure 128/79 08/17/22 10:20 Pulse Oximetry 97 08/17/22 10:20 Temperature 37 C 08/17/22 10:20 Temperature Source Temporal Artery Scan 08/17/22 10:20 Pulse 103 H 08/17/22 10:20 Respiratory Rate 18 08/17/22 10:20 Respiratory Effort Non-Labored 08/17/22 10:26 Blood Pressure 128/79 08/17/22 10:20 Blood Pressure Position Sitting 08/17/22 10:20 Pulse Oximetry 97 08/17/22 10:20 Oxygen Delivery Method Room Air 08/17/22 10:20 Oxygen Flow Rate 0 08/17/22 10:20
[2022-08-17] MEDS: FLUoxetine 10 MG TAB PO (11:09)
== END 2022-08-17 12:01 | disposition home or self-care (01) ==
PROVIDERS: Emergency Provider Physician Assistant; PCP Physician Assistant Medical
DX: U07.1 COVID-19 (principal)
CPT/HCPCS: 99283; 99284

== ENCOUNTER 2022-08-17 20:23 | Emergency (ER) | payer MEDICAID, SELFPAY ==
[2022-08-17 20:29] VITALS: BP 125/77; PULSE 109; RESP 16; TEMP 37.6; O2SAT 97
--- NOTE | 2022-08-17 20:53 | ED.GENADUL_ITS ---
Discharge Plan Disposition Patient Disposition: HOME Condition: Stable Discharge Details Clinical Impression: Nausea Primary Care Provider: Randy Willingham ED Provider: Zeb Mcguire Home Meds and New Rx's Prescriptions: New ondansetron HCl 4 mg tablet 4 mg PO Q8H PRN (Reason: nausea and vomiting) Qty: 7 0RF No Action melatonin 3 mg tablet 3 - 5 mg PO HS Rx Instructions: 1-2 tabs (3-6 mg) po at hs albuterol sulfate 90 mcg/actuation HFA aerosol inhaler 1 inh IH ONCE loratadine 10 mg capsule 10 mg PO DAILY labetalol 100 mg tablet 50 mg PO DAILY Digestive Advantage Prob Gummy 250 million cell tablet,chewable 250 cell PO DAILY lidocaine 3.5 % adhesive patch,medicated 1 patch topical DIRECTED medroxyprogesterone [Depo-Provera] 150 mg/mL syringe 150 mg IM every 3 months Qty: 1 5RF Rx Instructions: [facility]. quetiapine [Seroquel] 25 mg tablet 25 mg PO HS fluoxetine 10 mg capsule 10 mg PO DAILY ondansetron 4 mg tablet,disintegrating 4 mg PO Q4H PRN (Reason: nausea and vomiting) Qty: 7 0RF epinephrine 0.3 mg/0.3 mL auto-injector 0.3 ml SC ONCE PRN (Reason: anaphylaxis) Qty: 2 0RF Rx Instructions: as a single dose; may repeat once promethazine 25 mg suppository 25 mg WA Q6H PRNQty: 12 0RF acetaminophen 500 mg Tablet 1,000 mg PO PRN PRN sucralfate [Carafate] 1 gram tablet 1 g PO BID Qty: 60 0RF promethazine 25 mg suppository 25 mg WA Q6H PRNQty: 12 0RF ondansetron HCl 4 mg tablet 4 mg PO Q8H Qty: 12 0RF Discharge Instructions Instructions: Acute Nausea and Vomiting (ED) Additional Instructions: Please follow-up with your primary care physician. Please return to the emergency department for any worsening symptoms. Medical Decision Making 27-year-old female presents with nausea and vomiting in the setting of COVID-19 infection, also recent marijuana overdose, patient is alert and oriented resting comfortably no acute distress no active vomiting, hemodynamically stable, slightly tachycardic however improved from last visit. Patient be given sublingual Zofran for nausea. Will be given physical copy of Zofran prescription. Home care instructions and strict return precautions given. Low suspicion for electrolyte abnormality dehydration serious intra-abdominal infection such as cholecystitis or appendicitis or other serious pathology at this time. Patient states that she would like to be admitted to the hospital. Patient has been here multiple times in the last 4 days during all of these visits she has been thoroughly evaluated with this physical examination and laboratory tests and deemed to be safe for discharge. Patient to follow-up with primary care physician. HPI General Date/Time Provider Initiated Documentation: 08/17/22 20:47 . HPI Narrative: 27-year-old female recent diagnosis of COVID-19, also recent visit for marijuana overdose, presents with nausea and vomiting over the past several days, also states that her prescription was not sent to the pharmacy as requested. Related Data Home Medications Medication Instructions Recorded Confirmed acetaminophen 500 mg tablet 1,000 mg PO PRN PRN 10/30/19 08/17/22 albuterol sulfate 90 mcg/actuation 1 inh inhalation ONCE 05/13/20 08/17/22 aerosol inhaler loratadine 10 mg capsule 10 mg PO DAILY 07/31/20 08/17/22 medroxyprogesterone 150 mg/mL 150 mg IM every 3 months #1 SYRG 09/21/21 08/17/22 intramuscular syringe (Depo-Provera) Bacillus coagulans 250 million 250 cell PO DAILY 09/25/21 08/17/22 cell chewable tablet (Digestive Advantage Probiotic Gummy) labetalol 100 mg tablet 50 mg PO DAILY 09/25/21 08/17/22 melatonin 3 mg tablet 3 - 5 mg PO HS 09/25/21 08/17/22 fluoxetine 10 mg capsule 10 mg PO DAILY 01/29/22 08/17/22 quetiapine 25 mg tablet (Seroquel) 25 mg PO HS 01/29/22 08/17/22 lidocaine 3.5 % topical patch 1 patch topical DIRECTED 05/17/22 08/17/22 sucralfate 1 gram tablet (Carafate) 1 g PO BID #60 tabs 05/21/22 08/17/22 ondansetron 4 mg disintegrating 4 mg PO Q4H PRN nausea and 06/22/22 08/17/22 tablet vomiting #7 tabs epinephrine 0.3 mg/0.3 mL 0.3 ml subcut ONCE PRN anaphylaxis 08/14/22 08/17/22 injection, auto-injector #2 ea promethazine 25 mg rectal 25 mg WA Q6H PRN #12 ea 08/16/22 08/17/22 suppository ondansetron HCl 4 mg tablet 4 mg PO Q8H #12 tabs 08/17/22 08/17/22 ondansetron HCl 4 mg tablet 4 mg PO Q8H PRN nausea and 08/17/22 vomiting #7 tabs promethazine 25 mg rectal 25 mg WA Q6H PRN #12 ea 08/17/22 08/17/22 suppository Previous Rx's Medication Instructions Recorded medroxyprogesterone 150 mg/mL 150 mg IM every 3 months #1 SYRG 09/21/21 intramuscular syringe (Depo-Provera) sucralfate 1 gram tablet (Carafate) 1 g PO BID #60 tabs 05/21/22 ondansetron 4 mg disintegrating 4 mg PO Q4H PRN nausea and 06/22/22 tablet vomiting #7 tabs epinephrine 0.3 mg/0.3 mL 0.3 ml subcut ONCE PRN anaphylaxis 08/14/22 injection, auto-injector #2 ea promethazine 25 mg rectal 25 mg WA Q6H PRN #12 ea 08/16/22 suppository ondansetron HCl 4 mg tablet 4 mg PO Q8H #12 tabs 08/17/22 ondansetron HCl 4 mg tablet 4 mg PO Q8H PRN nausea and 08/17/22 vomiting #7 tabs promethazine 25 mg rectal 25 mg WA Q6H PRN #12 ea 08/17/22 suppository Allergies Allergy/AdvReac Type Severity Reaction Status Date / Time fluticasone Allergy Severe unknown Verified 08/17/22 20:35 [From Flovent HFA] lisinopril Allergy Intermediate unknown Verified 08/17/22 20:35 paroxetine HCl [From Paxil] Allergy Intermediate Hives Verified 08/17/22 20:35 polyethylene glycol 3350 Allergy Intermediate unknown Verified 08/17/22 20:35 [From Miralax] risperidone [From Risperdal] Allergy Intermediate Hives Verified 08/17/22 20:35 NSAIDS (Non-Steroidal Allergy Due to Verified 08/17/22 20:35 Anti-Inflamma prior kidney damage acetaminophen AdvReac Nausea Unverified 08/17/22 20:35 amoxicillin AdvReac Nausea Verified 08/17/22 20:35 seafood Allergy Intermediate unknown Uncoded 08/17/22 20:35 enviornmental Allergy Mild sneezing Uncoded 08/17/22 20:35 General Stated Complaint: GenMedical MARY KAY: 3 Review of Systems Narrative: Review of Systems Constitutional: negative Eyes: negative ENT: negative Cardiovascular: negative Respiratory: negative Gastrointestinal: Nausea, vomiting : negative Musculoskeletal: negative Skin: negative Neurologic: negative Psych: negative PFSH All Active Problems (Updated 08/17/22 @ 20:57 by Zeb Mcguire MD) Accidental marijuana overdose (Acute) Accidental overdose (Acute) Acute dehydration (Acute) Nausea & vomiting (Acute) Rectal bleeding (Acute) Depression (Chronic) COVID (Acute) COVID (Acute) Nausea (Acute) Hyperplastic colon polyp (Acute) Rectal polyp (Acute) Chronic kidney disease, stage 1 (Chronic 12/31/16) from renal infection as a child elevated BP resulting 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 Patient is using the Depo- Provera for menstrual cycle control. Depression (12/31/16) Drug abuse, episodic use Dysuria Family history of colon cancer Fatigue Generalized headaches (12/31/16) Hemolytic uremic syndrome History of allergic reaction History of mastoiditis Hypertrophy of tonsils and adenoids Illiteracy Per caregiver she is able to read and write, she needs assitance with comprehension of more complex words. Jaw pain Mesenteric lymphadenitis Otalgia, right ear Overactive bladder (02/09/18) Pain, dental PTSD (post-traumatic stress disorder) RBC microcytosis Steatosis of liver SASHA (stress urinary incontinence, female) Suicidal ideation TMJ tenderness, left Vitamin D deficiency Surgical History History of colonoscopy (~06/2022) History of kidney surgery Hx of tooth extraction Social History Smoking/Tobacco Use Status: Current every day Tobacco Type: e-cigarettes Smoking risk assessment performed?: Yes Alcohol Intake: former Drug use: Socially Substance use type: marijuana Details: ate THC gummys 08/13/22 Sexually active: Yes (female partner only now(May 2022). Has never had intercourse) Do you think of yourself as: lesbian/cash/homosexual What is your relationship status?: never Panel score (0-1 are the most socially isolated patients): 0 In current or past relationships, have you been: other Do you feel safe at home: Yes Do you feel safe in your relationship?: No Female Reproductive History Menstrual control method: progesterone injection History History 0 Para Hx # Term Pregnancies Multiple births Hx # Pregnancies Ectopic pregnancies AB induced Hx Number of Living Children AB spontaneous Exam Narrative Exam Narrative: Physical Examination General: alert, awake, cooperative, resting comfortably, no acute distress HEENT: normocephalic, atraumatic; PERRL, EOM intact, conjunctiva normal; no nasal discharge; moist mucous membranes, oral and pharyngeal mucosa normal, tolerating secretions Neck: supple, trachea midline; full ROM Chest: normal to inspection Respiratory: normal respiratory effort, speaking in full sentences, clear to auscultation, no wheezing, rales or rhonchi Cardiac: regular rate, regular rhythm, S1S2 intact, no murmurs rubs or gallops GI: abdomen soft, non-tender, non-distended; no palpable mass or hepatosplenomegaly Skin: no lesions, rashes or trauma appreciated Neuro: AAOx3, normal speech, moving all extremities Psych: Appropriate mood and affect Course Vital Signs Vital signs: Vital Signs Temperature 37.6 C H 08/17/22 20:29 Pulse 109 H 08/17/22 20:29 Respiratory Rate 16 08/17/22 20:29 Blood Pressure 125/77 08/17/22 20:29 Pulse Oximetry 97 08/17/22 20:29 Temperature 37.6 C H 08/17/22 20:29 Temperature Source Tympanic 08/17/22 20:29 Pulse 109 H 08/17/22 20:29 Respiratory Rate 16 08/17/22 20:29 Respiratory Effort 08/17/22 20:29 Blood Pressure 125/77 08/17/22 20:29 Blood Pressure Position Sitting 08/17/22 20:29 Pulse Oximetry 97 08/17/22 20:29 Oxygen Delivery Method Room Air 08/17/22 20:29 Oxygen Flow Rate 0 08/17/22 20:29 Pain Level 8 08/17/22 20:29 Comment 08/17/22 20:29
[2022-08-17] MEDS: Ondansetron O.D.T. 4 MG TABEF SL (21:00)
[2022-08-17 21:14] VITALS: RESP 16
--- NOTE | 2022-08-17 22:31 | NUR.NOTE ---
Referral to mason vidales to Dr. Solis for multiple recent visits to the ER. Put the referral in th mason vidales's box for follow up assistance.Nursing Note:
== END 2022-08-18 09:43 | disposition home or self-care (01) ==
LOC: ER 08-18 09:43
PROVIDERS: Emergency Provider Emergency Medicine; PCP Physician Assistant Medical
DX: R11.0 Nausea (principal); U07.1 COVID-19; I12.9 Hypertensive chronic kidney disease with stage 1 through stage 4 chronic kidney disease, or unspecified chronic kidney disease; N18.1 Chronic kidney disease, stage 1
CPT/HCPCS: 99283; 99284

== ENCOUNTER 2022-08-26 13:43 | Outpatient (REF) | payer MEDICAID, SELFPAY ==
[2022-08-26 16:02] LABS: Hemoglobin A1C 6.1 % (<5.7)
[2022-08-26 16:36] LABS: Vitamin D 25 Total 16.6 ng/mL (30-100)
== END 2022-08-26 13:44 | disposition home or self-care (01) ==
LOC: NCHCN 13:43
PROVIDERS: PCP Physician Assistant Medical; Visit Provider Nurse Practitioner Family
DX: U07.1 COVID-19 (principal); E55.9 Vitamin D deficiency, unspecified; R73.03 Prediabetes; R12 Heartburn
CPT/HCPCS: 82306; 83036

== ENCOUNTER → 2022-09-09 16:49 | Outpatient (CLI) | payer MEDICAID, SELFPAY ==
--- NOTE | 2022-09-09 | DI.US_ITS ---
Exam(s) US ABDOMEN LIMITED EXAM: US ABDOMEN LIMITED CLINICAL HISTORY: ABD PAIN, R10.9, GRADUALLY WORSENING X 3 DAYS; NAUSEA; LOW-GRADE TEMP TECHNIQUE: Ultrasound performed using standard protocol. COMPARISON: No exams were available for comparison FINDINGS: Limited abdominal ultrasound was performed to evaluate the right lower quadrant. Appendix was not vi sualized. No abscess or mass identified. IMPRESSION: Appendix not identified. Appendicitis is not excluded on the basis of this examination. DATA REPOSITORY:
== END ==
PROVIDERS: PCP Physician Assistant Medical; Visit Provider Nurse Practitioner Family
DX: R10.9 Unspecified abdominal pain (principal)
CPT/HCPCS: 76705

== ENCOUNTER 2022-09-09 18:17 | Outpatient (REF) | payer MEDICAID, SELFPAY ==
[2022-09-09 19:06] LABS: Abs Immature Grans 0.01 10^3/uL (0.0-0.06); Absolute Basophil Count 0.06 10^3/uL (0.0-0.2); Absolute Lymphocyte Count 2.42 10^3/uL (1.2-3.4); Basophils % 0.7; Eosinophils % 2.2; HCT 40.4 % (36.0-46.0); HGB 12.8 g/dL (11.2-15.7); Immature Grans % 0.1; Lymphocytes % 26.9; MCH 23.9 pg (27.0-33.0); MCHC 31.7 % (32.0-36.0); MCV 75 fL (80-95); Monocytes % 8.9; Neutrophils % 61.2; RBC 5.36 10^6/uL (3.93-5.22); RDW 15.5 % (11.7-14.6); RDW-SD 41.8 fL; WBC 8.99 10^3/uL (4.4-10.8)
[2022-09-09 20:02] LABS: Diff Comment PLT Morph Reviewed; Platelet Count 284 10^3/uL (130-400)
== END 2022-09-09 18:18 | disposition home or self-care (01) ==
LOC: NCHCN 18:17
PROVIDERS: PCP Physician Assistant Medical; Visit Provider Nurse Practitioner Family
DX: R11.0 Nausea (principal); R10.9 Unspecified abdominal pain
CPT/HCPCS: 85025; 87086

== ENCOUNTER 2022-09-10 17:50 | Emergency (ER) | payer MEDICAID, SELFPAY ==
[2022-09-10 17:49] VITALS: BP 146/87; PULSE 103; RESP 20; TEMP 36.8; O2SAT 97
--- NOTE | 2022-09-10 17:59 | W.ED.GENAD ---
Discharge Plan Disposition Patient Disposition: HOME Condition: Stable Discharge Details Clinical Impression: Abdominal pain, Vaginal discharge, Female dyspareunia, UTI (urinary tract infection) Primary Care Provider: Randy Willingham ED Provider: Anita Kamara Home Meds and New Rx's Prescriptions: New nitrofurantoin monohyd/m-cryst [Macrobid] 100 mg capsule 100 mg PO BID Qty: 10 0RF Rx Instructions: must administer with a meal/food Continued melatonin 3 mg tablet 3 - 5 mg PO HS Rx Instructions: 1-2 tabs (3-6 mg) po at hs albuterol sulfate 90 mcg/actuation HFA aerosol inhaler 1 inh IH ONCE loratadine 10 mg capsule 10 mg PO DAILY labetalol 100 mg tablet 50 mg PO DAILY Digestive Advantage Prob Gummy 250 million cell tablet,chewable 250 cell PO DAILY lidocaine 3.5 % adhesive patch,medicated 1 patch topical DIRECTED medroxyprogesterone [Depo-Provera] 150 mg/mL syringe 150 mg IM every 3 months Qty: 1 5RF Rx Instructions: bring syringe to [facility] for administration. quetiapine [Seroquel] 25 mg tablet 25 mg PO HS fluoxetine 10 mg capsule 10 mg PO DAILY epinephrine 0.3 mg/0.3 mL auto-injector 0.3 ml SC ONCE PRN (Reason: anaphylaxis) Qty: 2 0RF Rx Instructions: as a single dose; may repeat once acetaminophen 500 mg Tablet 1,000 mg PO PRN PRN Discharge Instructions Instructions: Ondansetron (By mouth), Urinary Tract Infection in Women (ED), Abdominal Pain (ED) Additional Instructions: As we discussed, I am primarily concerned that you have vaginal infection such as BV. These results are pending, I will call you with results. Please encourage hydration. Tylenol as needed for discomfort. If you have recurrence of your nausea/vomiting, you may use the zofran as prescribed. You may use one tab under your tongue every 6 hours as needed. You may advance your diet as tolerated. If you develop fevers/chills, increased pain or other new/worsening symptoms please seek care urgently once again. Please call [facility] to schedule follow up in the next 1-2 weeks. Referrals: Kay Wilkes MD [ [facility] STAFF PHYSICIAN] - Randy Willingham PA [Primary Care Provider] - Medical Decision Making Patient is a 27-year-old female, accompanied by significant other, with chief complaint lower abdominal pain, nausea and vomiting. Patient has been here multiple times in the past month for the same. She reports the pain has been fairly consistent and has waxed and waned. Reports that today, while on her first walk for exercise, she developed recurrence of her discomfort which was quite severe prompting her to call EMS for transportation to the emergency department. States that she had 3 episodes of emesis today. Denies any change in bowel habits. Normal bowel movement this morning. Denies any chills, reports that she did have fever at the time she arrived here I do not see any evidence of fever this far. She has not taken anything for her discomfort as of yet. Denies any chest pain or shortness of breath. States that she has increased urination but denies any dysuria. Also reports that she has been having some vaginal discharge and dyspareunia. Denies any history of STI. She is sexually active with her fianc?, fianc? denies any STI exposure. She states that she does have routine gynecologic care. On exam, patient appears very anxious. She is clutching her lower abdomen. She appears well-hydrated. Her lungs are clear, normal cardiac exam. Vital signs are stable, afebrile. Abdomen seems diffusely tender with voluntary guarding. No focal area of tenderness. Patient appears very anxious. We did discuss that with her vaginal symptoms, she will need a vaginal exam. With a level of anxiety as well as discomfort, plan to give Ativan. We will also augment this with Zofran as she has had some nausea and vomiting today. Patient feeling significantly improved after Ativan and Zofran. With significant other at bedside, feels that she is able to tolerate vaginal exam. Vaginal exam performed with nursing staff and significant other at bedside. Vaginal exam reveals some yellow discharge. The vaginal vault is slightly erythematous and tender. She is negative chandelier sign. She and her significant other deny any exposure to any STI. However, she has had issues with bacterial vaginosis in the past. Of note, patient did have difficulty tolerating the vaginal exam which sounds to be baseline for her secondary to anxiety. She continues to significantly tighten around the speculum and getting a full look at the cervix is difficult because of this. Labs reviewed. Slight leukocytosis white count of 11.6. Creatinine slightly elevated at 1.1. CMP otherwise without significant abnormality. Lipase within normal limits. Urinalysis concerning for elevated specific gravity, moderate amount of blood as well as leukocyte esterase, RBC, WBC and bacteria. On chart review, patient has had multiple UTIs historically but these of all appeared to be more mixed contaminated [place]. Waiting for vaginal pathology as well as STI testing. Patient is much more comfortable after receiving the above intervention. She would like discharged home. We have not yet received the results from her vaginal pathology. She is aware that the STI testing will take several days. Plan to call her with the vaginal pathology. Her exam and history is most consistent with bacterial vaginosis and plan to cover for this as well as UTI should this come back positive. Patient does not have any evidence to suggest cervicitis, PID, bacteremia or septicemia at this time. I do feel that holding off until test results have returned would be appropriate. Secondary to being top of the patient's after patient requested discharge, was unable to call her in a timely manner. Her vaginal pathology results were negative. Plan to treat with Keflex and will send this antibiotic to her pharmacy of choice. We will asked that emergency clinician on tomorrow call to give patient results and advise of antibiotic being available to her. Prior to her discharge, patient I had discussed that she will need follow-up with [facility]. We did discuss sanitation, particularly as she and her significant other had discussed sex toys. Strict return precautions were discussed. We did discuss supportive care. [facility] General Date/Time Provider Initiated Documentation: 09/10/22 17:54. Limitations to Documentation: no limitations. Information obtained by: patient, family and RN notes reviewed. History of Present Illness 27 year old F presents to the emergency department with the chief complaint of lower abdominal pain, described as severe and similar to prior episodes, with intensity rated at 10. Quality is described as stabbing, and is localized to the abdomen. Patient reports no radiation. Patient started experiencing this hour(s) (has had chronic pain but increased over past 1.5hrs) and it has been constant. No relieving factors improve symptom(s), Movement worsens symptoms (walking) . Patient notes nausea/vomiting; denies chest pain, cough, diaphoresis, fever/chills, loss of appetite, malaise, rash and shortness of breath. Patient did receive the following treatments prior to arrival, none Related Data Home Medications Medication Instructions Recorded Confirmed acetaminophen 500 mg tablet 1,000 mg PO PRN PRN 10/30/19 08/17/22 albuterol sulfate 90 mcg/actuation 1 inh inhalation ONCE 05/13/20 08/17/22 aerosol inhaler loratadine 10 mg capsule 10 mg PO DAILY 07/31/20 08/17/22 medroxyprogesterone 150 mg/mL 150 mg IM every 3 months #1 SYRG 09/21/21 08/17/22 intramuscular syringe (Depo-Provera) Bacillus coagulans 250 million 250 cell PO DAILY 09/25/21 08/17/22 cell chewable tablet (Digestive Advantage Probiotic Gummy) labetalol 100 mg tablet 50 mg PO DAILY 09/25/21 08/17/22 melatonin 3 mg tablet 3 - 5 mg PO HS 09/25/21 08/17/22 fluoxetine 10 mg capsule 10 mg PO DAILY 01/29/22 08/17/22 quetiapine 25 mg tablet (Seroquel) 25 mg PO HS 01/29/22 08/17/22 lidocaine 3.5 % topical patch 1 patch topical DIRECTED 05/17/22 08/17/22 epinephrine 0.3 mg/0.3 mL 0.3 ml subcut ONCE PRN anaphylaxis 08/14/22 08/17/22 injection, auto-injector #2 ea nitrofurantoin 100 mg PO BID #10 caps 09/11/22 monohydrate/macrocrystals 100 mg capsule (Macrobid) Previous Rx's Medication Instructions Recorded medroxyprogesterone 150 mg/mL 150 mg IM every 3 months #1 SYRG 09/21/21 intramuscular syringe (Depo-Provera) epinephrine 0.3 mg/0.3 mL 0.3 ml subcut ONCE PRN anaphylaxis 08/14/22 injection, auto-injector #2 ea nitrofurantoin 100 mg PO BID #10 caps 09/11/22 monohydrate/macrocrystals 100 mg capsule (Macrobid) Allergies Allergy/AdvReac Type Severity Reaction Status Date / Time fluticasone Allergy Severe unknown Verified 09/10/22 20:30 [From Flovent A] lisinopril Allergy Intermediate unknown Verified 09/10/22 20:30 paroxetine HCl [From Paxil] Allergy Intermediate Hives Verified 09/10/22 20:30 polyethylene glycol 3350 Allergy Intermediate unknown Verified 09/10/22 20:30 [From Miralax] risperidone [From Risperdal] Allergy Intermediate Hives Verified 09/10/22 20:30 NSAIDS (Non-Steroidal Allergy Due to Verified 09/10/22 20:30 Anti-Inflamma prior kidney damage acetaminophen AdvReac Nausea Unverified 09/10/22 20:30 amoxicillin AdvReac Nausea Verified 09/10/22 20:30 seafood Allergy Intermediate unknown Uncoded 09/10/22 20:30 enviornmental Allergy Mild sneezing Uncoded 09/10/22 20:30 General Stated Complaint: Abd Prob MARY KAY: 3 Review of Systems Constitutional Constitutional: Reports as per HPI, Denies chills, Denies fever(s) and Denies headache(s) ENT Ears, Nose, Mouth, and Throat: Denies headache(s) Cardiovascular Cardiovascular: Reports as per HPI, Denies chest pain and Denies dyspnea Respiratory Respiratory: Reports as per HPI, Denies cough and Denies dyspnea Gastrointestinal Gastrointestinal: Reports as per HPI Musculoskeletal Musculoskeletal: Reports as per HPI and Denies back pain Integumentary/Breasts Skin/Breast: Reports as per HPI and Denies rash Neurologic Neurologic: Reports as per HPI and Denies headache(s) PFSH All Active Problems (Updated 09/10/22 @ 20:46 by HARRISON Johnson) Accidental marijuana overdose (Acute) Accidental overdose (Acute) Acute dehydration (Acute) Nausea & vomiting (Acute) Rectal bleeding (Acute) Depression (Chronic) COVID (Acute) COVID (Acute) Abdominal pain (Acute) Vaginal discharge (Acute) Female dyspareunia (Acute) UTI (urinary tract infection) (Acute) Hyperplastic colon polyp (Acute) Rectal polyp (Acute) Chronic kidney disease, stage 1 (Chronic 12/31/16) from renal infection as a child elevated BP resulting 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 Patient is using the Depo-Provera for menstrual cycle control. Depression (12/31/16) Drug abuse, episodic use Dysuria Family history of colon cancer Fatigue Generalized headaches (12/31/16) Hemolytic uremic syndrome History of allergic reaction History of mastoiditis Hypertrophy of tonsils and adenoids Illiteracy Per caregiver she is able to read and write, she needs assitance with comprehension of more complex words. Jaw pain Mesenteric lymphadenitis Otalgia, right ear Overactive bladder (02/09/18) Pain, dental PTSD (post-traumatic stress disorder) RBC microcytosis Steatosis of liver SASHA (stress urinary incontinence, female) Suicidal ideation TMJ tenderness, left Vitamin D deficiency Surgical History History of colonoscopy (~06/2022) History of kidney surgery Hx of tooth extraction Social History Smoking/Tobacco Use Status: Current every day Tobacco Type: e-cigarettes Smoking risk assessment performed?: Yes Alcohol Intake: former Drug use: Socially Substance use type: marijuana Details: ate THC gummys 08/13/22 Sexually active: Yes (female partner only now(May 2022). Has never had intercourse) Do you think of yourself as: lesbian/cash/homosexual What is your relationship status?: never Panel score (0-1 are the most socially isolated patients): 0 In current or past relationships, have you been: other Do you feel safe at home: Yes Do you feel safe in your relationship?: No Female Reproductive History Menstrual control method: progesterone injection History History 0 Para Hx # Term Pregnancies Multiple births Hx # Pregnancies Ectopic pregnancies AB induced Hx Number of Living Children AB spontaneous Exam Const General: cooperative, healthy appearing, comfortable, no acute distress, well developed and anxious Nutritional Appearance: well nourished and overweight Orientation: alert and awake HENMT Head: normal to inspection Mouth: moist mucous membranes Resp Effort & Inspection: normal respiratory effort, able to speak in complete sentences and no respiratory distress Auscultation: clear to auscultation bilaterally, no rales, no rhonchi and no wheezes Cardio Rate: regular rate Rhythm: regular rhythm Heart Sounds: S1 normal and S2 normal GI Inspection: normal to inspection, no edema, non-distended and obesity Palpation: soft, no hepatosplenomegaly, no guarding, no hernias, no masses, not rigid, tender (diffuse, worse in lower quadrants, no focal tenderness) Mortensen's sign negative, obturator sign negative, psoas sign negative, with no rebound tenderness and Rovsing's sign negative and No ascites Percussion: normal to percussion Auscultation: normal bowel sounds External Female Exam: normal external appearance Speculum Exam - Vagina: abnormal vaginal discharge yellow (thin, scant), erythematous, no foreign bodies, no lacerations, No vaginal bleeding and other (exam limited secondary to anxiety) Speculum Exam - Cervix: other (difficult to completely see, what can be seen is normal) Bimanual Exam- Vagina & Uterus: normal bimanual exam Bimanual Exam- Adnexa, other: normal adnexae OB/External & Speculum: no foreign bodies and No vaginal bleeding Back/Spine/Pelvis Back: no CVA tenderness Skin General skin exam: no rashes or lesions noted Trauma: no lacerations or abrasions Neuro General: patient alert and patient awake Cognition: normal cognition Speech: speech normal Gait: normal gait Psych Appearance: grossly normal and well kempt Mental Status: mental status grossly normal Speech and Movement: speech and movement normal Course Vital Signs Vital signs: Vital Signs Temperature 36.8 C 09/10/22 17:49 Pulse 103 H 09/10/22 17:49 Respiratory Rate 20 09/10/22 17:49 Blood Pressure 146/87 H 09/10/22 17:49 Pulse Oximetry 97 09/10/22 17:49 Temperature 36.8 C 09/10/22 17:49 Temperature Source Oral 09/10/22 17:49 Pulse 103 H 09/10/22 17:49 Respiratory Rate 20 09/10/22 17:49 Blood Pressure 146/87 H 09/10/22 17:49 Blood Pressure Position Sitting 09/10/22 17:49 Pulse Oximetry 97 09/10/22 17:49 Oxygen Delivery Method Room Air 09/10/22 17:49 Oxygen Flow Rate 0 09/10/22 17:49 Pain Level 10 09/10/22 17:56
[2022-09-10] MEDS: LORazepam 2 MG/ML VIAL 0.5 MG IVP (18:34)
[2022-09-10] MEDS: Ondansetron 4 MG/2 ML VIAL IVP (18:35)
[2022-09-10 18:37] LABS: Abs Immature Grans 0.05 10^3/uL (0.0-0.06); Absolute Basophil Count 0.06 10^3/uL (0.0-0.2); Absolute Lymphocyte Count 2.82 10^3/uL (1.2-3.4); Absolute Monocyte Count 0.98 10^3/uL (0.1-0.8); Basophils % 0.5; Eosinophils % 1.7; HCT 38.9 % (36.0-46.0); HGB 12.3 g/dL (11.2-15.7); Immature Grans % 0.4; Lymphocytes % 24.2; MCH 24.2 pg (27.0-33.0); MCHC 31.6 % (32.0-36.0); MCV 76 fL (80-95); Monocytes % 8.4; Neutrophils % 64.8; Platelet Count 273 10^3/uL (130-400); RBC 5.09 10^6/uL (3.93-5.22); RDW 15.3 % (11.7-14.6); RDW-SD 42.4 fL; WBC 11.65 10^3/uL (4.4-10.8)
[2022-09-10 18:38] LABS: Absolute Neutrophil Count 7.55 10^3/uL (1.2-6.7)
[2022-09-10 18:52] LABS: ALT 22 U/L (14-59); AST 11 U/L (15-37); Albumin 4.1 g/dL (3.4-5.0); Alkaline Phosphatase 83 U/L (46-116); Anion Gap 8.6 mmol/L (3-11); BUN 12 mg/dL (7-18); Bilirubin, Total 0.3 mg/dL (0.2-1.0); CO2 26.4 mmol/L (21.0-32.0); CREATININE 1.1 mg/dL (0.55-1.02); Calcium 9.3 mg/dL (8.5-10.1); Chloride 105 mmol/L (98-107); Estimated GFR 71.51 (mL/min/1.73m2); Glucose 98 mg/dL (74-106); Lipase 103 U/L (73-393); Potassium 3.7 mmol/L (3.5-5.1); Sodium 140 mmol/L (136-145); Total Protein 7.7 g/dL (6.4-8.2)
[2022-09-10 18:54] LABS: Bilirubin Negative (Negative); Blood Moderate (Negative); Clarity Clear (Clear); Glucose Negative (Negative); Ketones Negative (Negative); Leukocyte Esterase Small (Negative); Nitrite Negative (Negative); Specific Gravity >= 1.030 (1.005-1.025); Urobilinogen 0.2 EU/dL (Up TO 0.2)
[2022-09-10] MEDS: Lactated Ringers 1,000 ML 1000 ML IV (19:06)
[2022-09-10 19:12] LABS: Bacteria Few HPF (Negative); C & S Indicated? Yes; Casts Negative LPF (Negative); Crystals Negative HPF (Negative); Epithelial Cells Few HPF (Negative); Mucus Negative (Negative)
[2022-09-10 19:17] LABS: *AMPHETAMINES SCREEN URINE Negative (Negative); *BARBITURATES SCREEN URINE Negative (Negative); *BENZODIAZEPINES SCREEN URINE Negative (Negative); Cannabinoids THC Negative (Negative); Cocaine Screen,Urine Negative (Negative); METHADONE URINE SCREEN Negative (Negative); OPIATES URINE SCREEN Negative (Negative); Tricyclic Antidepressants Negative (Negative)
[2022-09-13 15:08] LABS: Chlamydia Result Negative (Negative); GC Result Negative (Negative)
== END 2022-09-10 21:08 | disposition home or self-care (01) ==
PROVIDERS: Emergency Provider Physician Assistant; PCP Physician Assistant Medical
DX: N39.0 Urinary tract infection, site not specified (principal); N94.10 Unspecified dyspareunia; N89.8 Other specified noninflammatory disorders of vagina
CPT/HCPCS: 80053; 80307; 81025; 83690; 87491; 87591; 96361; 96374; 96375; 99284; 81003; 81015; 83735; 85025; 87086; 87480; 87510; 87660; J2060; J2405

== ENCOUNTER 2022-09-15 10:28 | Emergency (ER) | payer MEDICAID, SELFPAY ==
[2022-09-15 10:44] VITALS: BP 154/83; PULSE 83; RESP 18; TEMP 37.1; O2SAT 97
[2022-09-15 11:03] VITALS: RESP 18
--- NOTE | 2022-09-15 11:59 | ED.GENADUL_ITS ---
Discharge Plan Disposition Patient Disposition: Eloped Discharge Details Chief Complaint: GenMedical Clinical Impression: Blood in urine, Abdominal pain Primary Care Provider: Randy Willingham ED Provider: Kindra Solis Home Meds and New Rx's Prescriptions: No Action melatonin 3 mg tablet 3 - 5 mg PO HS Rx Instructions: 1-2 tabs (3-6 mg) po at hs albuterol sulfate 90 mcg/actuation HFA aerosol inhaler 1 inh IH ONCE loratadine 10 mg capsule 10 mg PO DAILY labetalol 100 mg tablet 50 mg PO DAILY Digestive Advantage Prob Gummy 250 million cell tablet,chewable 250 cell PO DAILY lidocaine 3.5 % adhesive patch,medicated 1 patch topical DIRECTED medroxyprogesterone [Depo-Provera] 150 mg/mL syringe 150 mg IM every 3 months Qty: 1 5RF Rx Instructions: bring syringe to [facility] for administration. quetiapine [Seroquel] 25 mg tablet 25 mg PO BID fluoxetine 10 mg capsule 20 mg PO DAILY epinephrine 0.3 mg/0.3 mL auto-injector 0.3 ml SC ONCE PRN (Reason: anaphylaxis) Qty: 2 0RF Rx Instructions: as a single dose; may repeat once promethazine 25 mg tablet 25 mg PO Q6H PRN (Reason: nausea and vomiting) Qty: 10 0RF acetaminophen 500 mg Tablet 1,000 mg PO PRN PRN clonidine HCl 0.2 mg tablet 1 tab PO HS Label Comments: TAKE ONE TABLET BY MOUTH AT BEDTIME naproxen sodium 220 mg Tablet 220 mg PO PRN PRN Discharge Data Discharge Date/Time-TO BE ENTERED AT DEPARTURE: 09/15/22 11:59 Medical Decision Making Concern for UTI, , other. Doubt appendicitis, other acute emergent intra-abdominal pathology. Exam/hx at this time is not c/w with PID, sepsis. Plan for UA, UP, reassessment. Pt agrees to urine ch/gonorrhea. I was notified by nursing that Pt eloped from the ED after providing urine sample. Lab Data Lab results reviewed: Yes I reviewed the patient's lab results. Labs: Laboratory Tests Range/Units 09/15/22 09/15/22 11:55 11:55 Urine Color (Yellow) Yellow Urine Clarity (Clear) Clear Urine pH (5-8) 7.0 Ur Specific [place] (1.005-1.025) >= 1.030 H Urine Protein (Negative) mg/dL Trace H Urine Ketones (Negative) mg/dL Negative Urine Blood (Negative) Negative Urine Nitrite (Negative) Negative Urine Bilirubin (Negative) Negative Urine Urobilinogen (Up TO 0.2) EU/dL 0.2 Ur Leukocyte Esterase (Negative) Negative Urine RBC (0-2) HPF Negative Urine WBC (0-5) HPF Negative Ur Epithelial Cells (Negative) HPF Rare Urine Crystals (Negative) HPF Negative Urine Bacteria (Negative) HPF Negative Urine Casts (Negative) LPF 0-2 Hyaline Urine Mucus (Negative) Negative Ur Culture Indicated? No Urine Glucose (Negative) mg/dL Negative Chlamydia DNA Probe (Negative) Negative Chlamydia/GC DNA Source Not Applicable N.gonorrhoeae DNA Probe (Negative) Negative HPI General Mode of arrival: ambulatory . Date/Time Provider Initiated Documentation: 09/15/22 10:29 . Limitations to Documentation: no limitations . Information obtained by: patient, RN notes reviewed and old records reviewed . HPI Narrative: Shannon Barajas is a 27 y/o woman with h/o CKD, HTN, anxiety, depression presenting to the emergency department blood in urine. Pt reports that she has had pain across her lower back and in her lower abdomen worse in the LLQ for the past week. Pt states that she has had suprapubic pain with urinating over this time as well. Pt reports that she was prescribed abx for UTI by urgent care several days ago, which she has been taking without change in symptoms. Pt reports that she noticed blood in her urine yesterday. No hematuria today. Denies burning with urination, vaginal discharge, fever, other pain, SOB, cough, vomiting, diarrhea. Pt reports that she recently became sexually active for the first time (approx one month ago) with a female partner. Related Data Home Medications Medication Instructions Recorded Confirmed acetaminophen 500 mg tablet 1,000 mg PO PRN PRN 10/30/19 10/07/22 albuterol sulfate 90 mcg/actuation 1 inh inhalation ONCE 05/13/20 10/07/22 aerosol inhaler loratadine 10 mg capsule 10 mg PO DAILY 07/31/20 10/07/22 medroxyprogesterone 150 mg/mL 150 mg IM every 3 months #1 SYRG 09/21/21 10/07/22 intramuscular syringe (Depo-Provera) Bacillus coagulans 250 million 250 cell PO DAILY 09/25/21 10/07/22 cell chewable tablet (Digestive Advantage Probiotic Gummy) labetalol 100 mg tablet 50 mg PO DAILY 09/25/21 10/07/22 melatonin 3 mg tablet 3 - 5 mg PO HS 09/25/21 10/07/22 fluoxetine 10 mg capsule 20 mg PO DAILY 01/29/22 10/07/22 quetiapine 25 mg tablet (Seroquel) 25 mg PO BID 01/29/22 10/07/22 lidocaine 3.5 % topical patch 1 patch topical DIRECTED 05/17/22 10/07/22 epinephrine 0.3 mg/0.3 mL 0.3 ml subcut ONCE PRN anaphylaxis 08/14/22 10/07/22 injection, auto-injector #2 ea clonidine HCl 0.2 mg tablet 1 tab PO HS 10/03/22 10/07/22 naproxen sodium 220 mg tablet 220 mg PO PRN PRN 10/03/22 10/07/22 promethazine 25 mg tablet 25 mg PO Q6H PRN nausea and 10/04/22 10/07/22 vomiting #10 tabs Previous Rx's Medication Instructions Recorded medroxyprogesterone 150 mg/mL 150 mg IM every 3 months #1 SYRG 09/21/21 intramuscular syringe (Depo-Provera) epinephrine 0.3 mg/0.3 mL 0.3 ml subcut ONCE PRN anaphylaxis 08/14/22 injection, auto-injector #2 ea promethazine 25 mg tablet 25 mg PO Q6H PRN nausea and 10/04/22 vomiting #10 tabs Allergies Allergy/AdvReac Type Severity Reaction Status Date / Time fluticasone Allergy Severe unknown Verified 10/07/22 19:47 [From Flovent HFA] lisinopril Allergy Intermediate unknown Verified 10/07/22 19:47 paroxetine HCl [From Paxil] Allergy Intermediate Hives Verified 10/07/22 19:47 polyethylene glycol 3350 Allergy Intermediate unknown Verified 10/07/22 19:47 [From Miralax] risperidone [From Risperdal] Allergy Intermediate Hives Verified 10/07/22 19:47 NSAIDS (Non-Steroidal Allergy Due to Verified 10/07/22 19:47 Anti-Inflamma prior kidney damage acetaminophen AdvReac Nausea Unverified 10/07/22 19:47 amoxicillin AdvReac Nausea Verified 10/07/22 19:47 seafood Allergy Intermediate unknown Uncoded 10/07/22 19:47 enviornmental Allergy Mild sneezing Uncoded 10/07/22 19:47 General Stated Complaint: GenMedical MARY KAY: 4 Review of Systems Narrative: Constitutional: denies fevers Eyes: denies eye pain ENT: denies ear pain, dental pain, sore throat Cardiovascular: denies chest pain Respiratory: denies SOB, cough GI: denies vomiting, diarrhea, reports abdominal pain : denies flank pain dysuria, reports suprapubic pain with urination, hematuria MSK: denies neck pain, arthralgias, myalgias, reports lower back pain Skin: denies rash Neuro: denies headaches, numbness, weakness PFSH All Active Problems (Updated 10/10/22 @ 10:06 by Kindra Solis MD) COVID (Acute) COVID (Acute) Abdominal pain (Acute) Vaginal discharge (Acute) Female dyspareunia (Acute) UTI (urinary tract infection) (Acute) Blood in urine (Acute) Abdominal pain (Acute) Dysuria (Acute) Depression (Chronic) Situational anxiety (Acute) Vomiting (Acute) Drug-induced nausea and vomiting (Acute) Dizziness (Acute) Nausea and vomiting (Acute) Constipation (Acute) Hyperplastic colon polyp (Acute) Rectal polyp (Acute) Chronic kidney disease, stage 1 (Chronic 12/31/16) from renal infection as a child elevated BP resulting 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 Patient is using the Depo- Provera for menstrual cycle control. Depression (12/31/16) Drug abuse, episodic use Dysuria Family history of colon cancer Fatigue Generalized headaches (12/31/16) Hemolytic uremic syndrome History of allergic reaction History of mastoiditis Hypertrophy of tonsils and adenoids Illiteracy Per caregiver she is able to read and write, she needs assitance with comprehension of more complex words. Jaw pain Mesenteric lymphadenitis Otalgia, right ear Overactive bladder (02/09/18) Pain, dental PTSD (post-traumatic stress disorder) RBC microcytosis Steatosis of liver SASHA (stress urinary incontinence, female) Suicidal ideation TMJ tenderness, left Vitamin D deficiency Surgical History History of colonoscopy (~06/2022) History of kidney surgery Hx of tooth extraction Social History Smoking/Tobacco Use Status: Current every day Tobacco Type: e-cigarettes Smoking risk assessment performed?: Yes Alcohol Intake: former Drug use: Current Sobriety Substance use type: marijuana Sexually active: Yes (female partner only now(May 2022). Has never had intercourse) Do you think of yourself as: lesbian/cash/homosexual What is your relationship status?: never Panel score (0-1 are the most socially isolated patients): 0 Do you feel safe at home: Yes Do you feel safe in your relationship?: Yes Additional Social history: lives alone - states she feels sad when she is alone Female Reproductive History Menstrual control method: progesterone injection History History 0 Para Hx # Term Pregnancies Multiple births Hx # Pregnancies Ectopic pregnancies AB induced Hx Number of Living Children AB spontaneous Exam Narrative Exam Narrative: Constitutional: well and [id number], pleasant, conversing normally HENT: head atraumatic/normocephalic/normal inspection, mucous membranes moist Eyes: conjunctiva normal, sclera normal, pupils 3mm b/l Neck: no stridor, normal ROM, trachea midline Resp: normal work of breathing, speaking in full sentences Cardio: normal rate, normal rhythm GI: abdomen soft, mild TTP across lower abd, worse LLQ, no suprapubic TTP, non- distended Back: normal inspection, no rash, NTTP, no CVA TTP Skin: warm, dry, normal color, no rash Neuro: alert, not altered, grossly non-focal, normal tone Ext: no edema Psych: normal mood, normal affect, normal behavior Course Vital Signs Vital signs: Vital Signs Temperature 37.1 C 09/15/22 10:44 Pulse 83 09/15/22 10:44 Respiratory Rate 18 09/15/22 10:44 Blood Pressure 154/83 H 09/15/22 10:44 Pulse Oximetry 97 09/15/22 10:44 Temperature 37.1 C 09/15/22 10:44 Temperature Source Oral 09/15/22 10:44 Pulse 83 09/15/22 10:44 Respiratory Rate 18 09/15/22 11:03 Respiratory Effort Non-Labored 09/15/22 11:13 Respiratory Depth Normal 09/15/22 11:03 Respiratory Pattern Normal 09/15/22 11:03 Blood Pressure 154/83 H 09/15/22 10:44 Blood Pressure Position Sitting 09/15/22 10:44 Pulse Oximetry 97 09/15/22 10:44 Oxygen Delivery Method Room Air 09/15/22 10:44 Oxygen Flow Rate 0 09/15/22 10:44
[2022-09-15 12:06] LABS: Bilirubin Negative (Negative); Blood Negative (Negative); Clarity Clear (Clear); Glucose Negative (Negative); Ketones Negative (Negative); Leukocyte Esterase Negative (Negative); Nitrite Negative (Negative); Specific Gravity >= 1.030 (1.005-1.025); Urobilinogen 0.2 EU/dL (Up TO 0.2)
[2022-09-15 12:14] LABS: Bacteria Negative HPF (Negative); C & S Indicated? No; Casts 0-2 Hyaline LPF (Negative); Crystals Negative HPF (Negative); Epithelial Cells Rare HPF (Negative); Mucus Negative (Negative); RBC Negative HPF (0-2); WBC Negative HPF (0-5)
[2022-09-17 17:35] LABS: Chlamydia Result Negative (Negative); GC Result Negative (Negative)
== END 2022-09-15 11:59 | disposition left against medical advice (07) ==
PROVIDERS: Emergency Provider Student in an Organized Health Care Education/Training Program; PCP Physician Assistant Medical
DX: R31.9 Hematuria, unspecified (principal); R10.32 Left lower quadrant pain; I12.9 Hypertensive chronic kidney disease with stage 1 through stage 4 chronic kidney disease, or unspecified chronic kidney disease; N18.1 Chronic kidney disease, stage 1; F90.9 Attention-deficit hyperactivity disorder, unspecified type; Z53.29 Procedure and treatment not carried out because of patient's decision for other reasons; Z86.16 Personal history of COVID-19
CPT/HCPCS: 87491; 87591; 99281; 81003; 81015; 99283

== ENCOUNTER 2022-09-15 15:26 | Emergency (ER) | payer MEDICAID, SELFPAY ==
[2022-09-15 16:04] VITALS: BP 138/96; PULSE 106; RESP 20; O2SAT 97
[2022-09-15 18:03] LABS: Bilirubin Negative (Negative); Blood Negative (Negative); Clarity Clear (Clear); Glucose Negative (Negative); Ketones Negative (Negative); Leukocyte Esterase Negative (Negative); Nitrite Negative (Negative); Specific Gravity >= 1.030 (1.005-1.025); Urobilinogen 0.2 EU/dL (Up TO 0.2)
--- NOTE | 2022-09-15 18:15 | DI.CT_ITS ---
Exam(s) CT ABDOMEN PELVIS WO EXAM: CT ABDOMEN PELVIS WO CLINICAL HISTORY: left flank and lower quadrant pain, dysuria. TECHNIQUE: Imaging Protocol: Axial computed tomography images with coronal and sagittal reformatted images were created and reviewed. COMPARISON: CT CT ABDOMEN PELVIS WO from 05/08/2022 FINDINGS: ABDOMEN: Lung Bases: Normal where visualized. Liver: Normal density. No measurable mass. Gallbladder and biliary tract: No radiodense calculus or biliary ductal dilation. Pancreas: Normal density, no abnormal calcifications or inflammatory process. Spleen: Normal. Kidneys: Normal size, contour and axis.No radiodense stones or obstructive uropathy. No masses seen. Adrenal glands: No mass is seen. Lymph nodes: There again seen mildly enlarged mesenteric lymph nodes. Abdominal Aorta: Abdominal portion non-dilated. PELVIS: Bladder:Symmetric distention, no gross wall thickening. Bowel: No obstruction or bowel wall thickening. No evidence of appendicitis. Peritoneal cavity: No ascites, collection or mesenteric inflammatory response. No free air. Reproductive organs: Unremarkable as visualized. Bones: Within normal limits. Soft Tissues: Within normal limits. IMPRESSION: 1. No evidence of nephrolithiasis or hydronephrosis. 2. Persistent mild prominence of the mesenteric lymph nodes. This may be due to an in affection is e nteritis, however mesenteric inflammation or sclerosing process cannot be excluded. RADIATION DOSE DELIVERED: 1,289.89mGy.cm Total DLP DATA REPOSITORY: All CT scans at this facility are submitted to the National Radiology Data Registry (NRDR) Dose Index Registry (DIR) with the [employer] (ACR). RADIATION OPTIMIZATION: All CT scans at this facility use at least one of these dose optimization te chniques: automated exposure control; mA and/or kV adjustment per patient size (includes targeted exa ms where dose is matched to clinical indication); or iterative reconstruction.
[2022-09-15 18:18] LABS: Bacteria Few HPF (Negative); C & S Indicated? No; Crystals Negative HPF (Negative); Epithelial Cells Few HPF (Negative); Mucus Trace (Negative); WBC 0-2 HPF (0-5)
[2022-09-15] MEDS: Ondansetron O.D.T. 4 MG TABEF (19:40)
--- NOTE | 2022-09-15 20:49 | DI.VRAD_ITS ---
PROCEDURE INFORMATION: Exam: CT Abdomen And Pelvis Without Contrast Exam date and time: 09/15/2022 8:05 PM Age: 27 years old Clinical indication: Other: Left flank pain, lower quadant pain, dsuria TECHNIQUE: Imaging protocol: Computed tomography of the abdomen and pelvis without contrast. COMPARISON: CT ABDOMEN PELVIS WO 05/08/2022 10:30 PM FINDINGS: Lungs: Lung bases are clear. Liver: Unremarkable noncontrast liver imaging. Gallbladder and bile ducts: Normal. No calcified stones. No ductal dilation. Pancreas: Normal. No ductal dilation. Spleen: Normal. No splenomegaly. Adrenal glands: Normal. No mass. Kidneys and ureters: Negative for hydronephrosis. Ureters are not dilated. No stones are observed. Stomach and bowel: Unremarkable stomach. Nondilated small bowel. Fat planes around loops of small bowel are indistinct. There are no inflammatory changes observed around the colon. Appendix: Normal appendix. Intraperitoneal space: Mild generalized mesenteric fat stranding. Central lashonda mesentery has improved. No significant free fluid. Negative for free air. Negative for abscess. Vasculature: Unremarkable. No abdominal aortic aneurysm. Lymph nodes: Mesenteric lymph nodes are mildly prominent, similar to previous. Negative for pathologic lymphadenopathy. Urinary bladder: Unremarkable as visualized. Reproductive: Unremarkable as visualized. Bones/joints: No compression fractures. No anterolisthesis or retrolisthesis. No significant disc space narrowing. Soft tissues: Negative for abdominal wall hernia. IMPRESSION: 1. No hydronephrosis or urolithiasis. 2. Mesenteric lymph node prominence, likely reactive to infectious enteritis. A primary mesenteric inflammatory or sclerosing process is not excluded. Dictated and Authenticated by: Miguel Arndt MD. Ordering:CHEYENNE Galvez MD
--- NOTE | 2022-09-15 20:50 | W.ED.GENAD ---
Discharge Plan Disposition Patient Disposition: HOME Condition: Stable Discharge Details Clinical Impression: Blood in urine, Abdominal pain Primary Care Provider: Randy Willingham ED Provider: Leonor Simons Home Meds and New Rx's Prescriptions: Continued melatonin 3 mg tablet 3 - 5 mg PO HS Rx Instructions: 1-2 tabs (3-6 mg) po at hs albuterol sulfate 90 mcg/actuation HFA aerosol inhaler 1 inh IH ONCE loratadine 10 mg capsule 10 mg PO DAILY labetalol 100 mg tablet 50 mg PO DAILY Digestive Advantage Prob Gummy 250 million cell tablet,chewable 250 cell PO DAILY lidocaine 3.5 % adhesive patch,medicated 1 patch topical DIRECTED medroxyprogesterone [Depo-Provera] 150 mg/mL syringe 150 mg IM every 3 months Qty: 1 5RF Rx Instructions: bring syringe to [facility] for administration. quetiapine [Seroquel] 25 mg tablet 25 mg PO HS fluoxetine 10 mg capsule 10 mg PO DAILY epinephrine 0.3 mg/0.3 mL auto-injector 0.3 ml SC ONCE PRN (Reason: anaphylaxis) Qty: 2 0RF Rx Instructions: as a single dose; may repeat once nitrofurantoin monohyd/m-cryst [Macrobid] 100 mg capsule 100 mg PO BID Qty: 10 0RF Rx Instructions: must administer with a meal/food acetaminophen 500 mg Tablet 1,000 mg PO PRN PRN Discharge Instructions Instructions: Hematuria (ED), Abdominal Pain (ED) Additional Instructions: Please follow-up with your doctor for repeat urinalysis test in 1 to 2 weeks Take your prescribed medications Your CAT scan does not show evidence of significant acute abnormality, please follow-up with your doctor Please return earlier should you have new or worsening complaints Referrals: Randy Willingham PA [Primary Care Provider] - 1 day Discharge Data Discharge Date/Time-TO BE ENTERED AT DEPARTURE: 09/15/22 20:[address] does not show evidence of significant acute abnormality, some mesenteric stranding noted, will refer back to PCP Urinalysis has slight blood, will follow-up with PCP regarding this finding and possible repeat urinalysis in 1 to 2 weeks at their discretion Discharged home in stable condition with stable vitals Return precautions discussed and patient expressed understanding Medical Records Medical records reviewed: Yes I reviewed the patient's medical records. Lab Data Lab results reviewed: Yes I reviewed the patient's lab results. HPI General Date/Time Provider Initiated Documentation: 09/15/22 15:34. HPI Narrative: This 27-year-old female known to this department presents with reported blood in her urine with flank and left lower quadrant pain. She states that symptoms have been intermittent for the past week. She denies risk of sexually transmitted disease and had a negative GC chlamydia several days prior to arrival today. Her urinalysis does not show evidence of urinary tract infection from earlier visit today Related Data Home Medications Medication Instructions Recorded Confirmed acetaminophen 500 mg tablet 1,000 mg PO PRN PRN 10/30/19 09/15/22 albuterol sulfate 90 mcg/actuation 1 inh inhalation ONCE 05/13/20 09/15/22 aerosol inhaler loratadine 10 mg capsule 10 mg PO DAILY 07/31/20 09/15/22 medroxyprogesterone 150 mg/mL 150 mg IM every 3 months #1 SYRG 09/21/21 09/15/22 intramuscular syringe (Depo-Provera) Bacillus coagulans 250 million 250 cell PO DAILY 09/25/21 09/15/22 cell chewable tablet (Digestive Advantage Probiotic Gummy) labetalol 100 mg tablet 50 mg PO DAILY 09/25/21 09/15/22 melatonin 3 mg tablet 3 - 5 mg PO HS 09/25/21 09/15/22 fluoxetine 10 mg capsule 10 mg PO DAILY 01/29/22 09/15/22 quetiapine 25 mg tablet (Seroquel) 25 mg PO HS 01/29/22 09/15/22 lidocaine 3.5 % topical patch 1 patch topical DIRECTED 05/17/22 09/15/22 epinephrine 0.3 mg/0.3 mL 0.3 ml subcut ONCE PRN anaphylaxis 08/14/22 09/15/22 injection, auto-injector #2 ea nitrofurantoin 100 mg PO BID #10 caps 09/11/22 09/15/22 monohydrate/macrocrystals 100 mg capsule (Macrobid) Previous Rx's Medication Instructions Recorded medroxyprogesterone 150 mg/mL 150 mg IM every 3 months #1 SYRG 09/21/21 intramuscular syringe (Depo-Provera) epinephrine 0.3 mg/0.3 mL 0.3 ml subcut ONCE PRN anaphylaxis 08/14/22 injection, auto-injector #2 ea nitrofurantoin 100 mg PO BID #10 caps 09/11/22 monohydrate/macrocrystals 100 mg capsule (Macrobid) Allergies Allergy/AdvReac Type Severity Reaction Status Date / Time fluticasone Allergy Severe unknown Verified 09/15/22 18:31 [From Flovent HFA] lisinopril Allergy Intermediate unknown Verified 09/15/22 18:31 paroxetine HCl [From Paxil] Allergy Intermediate Hives Verified 09/15/22 18:31 polyethylene glycol 3350 Allergy Intermediate unknown Verified 09/15/22 18:31 [From Miralax] risperidone [From Risperdal] Allergy Intermediate Hives Verified 09/15/22 18:31 NSAIDS (Non-Steroidal Allergy Due to Verified 09/15/22 18:31 Anti-Inflamma prior kidney damage acetaminophen AdvReac Nausea Unverified 09/15/22 18:31 amoxicillin AdvReac Nausea Verified 09/15/22 18:31 seafood Allergy Intermediate unknown Uncoded 09/15/22 18:31 enviornmental Allergy Mild sneezing Uncoded 09/15/22 18:31 General Stated Complaint: Urinary MARY KAY: 4 Review of Systems All systems reviewed & are unremarkable except as noted in HPI and below PFSH All Active Problems (Updated 09/15/22 @ 20:53 by HARRISON Nava) COVID (Acute) COVID (Acute) Abdominal pain (Acute) Vaginal discharge (Acute) Female dyspareunia (Acute) UTI (urinary tract infection) (Acute) Blood in urine (Acute) Abdominal pain (Acute) Hyperplastic colon polyp (Acute) Rectal polyp (Acute) Chronic kidney disease, stage 1 (Chronic 12/31/16) from renal infection as a child elevated BP resulting 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 Patient is using the Depo-Provera for menstrual cycle control. Depression (12/31/16) Drug abuse, episodic use Dysuria Family history of colon cancer Fatigue Generalized headaches (12/31/16) Hemolytic uremic syndrome History of allergic reaction History of mastoiditis Hypertrophy of tonsils and adenoids Illiteracy Per caregiver she is able to read and write, she needs assitance with comprehension of more complex words. Jaw pain Mesenteric lymphadenitis Otalgia, right ear Overactive bladder (02/09/18) Pain, dental PTSD (post-traumatic stress disorder) RBC microcytosis Steatosis of liver SASHA (stress urinary incontinence, female) Suicidal ideation TMJ tenderness, left Vitamin D deficiency Surgical History History of colonoscopy (~06/2022) History of kidney surgery Hx of tooth extraction Social History Smoking/Tobacco Use Status: Current every day Tobacco Type: e-cigarettes Smoking risk assessment performed?: Yes Alcohol Intake: former Drug use: Socially Substance use type: marijuana Details: ate THC gummys 08/13/22 Sexually active: Yes (female partner only now(May 2022). Has never had intercourse) Do you think of yourself as: lesbian/cash/homosexual What is your relationship status?: never Panel score (0-1 are the most socially isolated patients): 0 In current or past relationships, have you been: other Do you feel safe at home: Yes Do you feel safe in your relationship?: No Female Reproductive History Menstrual control method: progesterone injection History History 0 Para Hx # Term Pregnancies Multiple births Hx # Pregnancies Ectopic pregnancies AB induced Hx Number of Living Children AB spontaneous Exam Const General: cooperative, comfortable and no acute distress Eyes Sclera: sclerae normal Resp Effort & Inspection: normal respiratory effort Auscultation: clear to auscultation bilaterally Cardio Rate: regular rate Rhythm: regular rhythm GI Inspection: normal to inspection Auscultation: normal bowel sounds Other: Tenderness with palpation, left flank and left lower quadrant without rebound or guarding Skin General skin exam: no rashes or lesions noted Neuro General: patient alert and patient oriented x3 Speech: speech normal Course Vital Signs Vital signs: Vital Signs Pulse 106 H 09/15/22 16:04 Respiratory Rate 20 09/15/22 16:04 Blood Pressure 138/96 H 09/15/22 16:04 Pulse Oximetry 97 09/15/22 16:04 Pulse 106 H 09/15/22 16:04 Respiratory Rate 20 09/15/22 16:04 Respiratory Effort 09/15/22 18:30 Blood Pressure 138/96 H 09/15/22 16:04 Blood Pressure Position Sitting 09/15/22 16:04 Pulse Oximetry 97 09/15/22 16:04 Oxygen Delivery Method Room Air 09/15/22 16:04 Oxygen Flow Rate 0 09/15/22 16:04 Pain Level 8 09/15/22 16:04 Lab/Test Results Lab/Test Results: Laboratory Tests Range/Units 09/15/22 17:47 Urine Color (Yellow) Yellow Urine Clarity (Clear) Clear Urine pH (5-8) 6.0 Ur Specific [place] (1.005-1.025) >= 1.030 H Urine Protein (Negative) mg/dL 30 H Urine Ketones (Negative) mg/dL Negative Urine Blood (Negative) Negative Urine Nitrite (Negative) Negative Urine Bilirubin (Negative) Negative Urine Urobilinogen (Up TO 0.2) EU/dL 0.2 Ur Leukocyte Esterase (Negative) Negative Urine RBC (0-2) HPF 3-5 H Urine WBC (0-5) HPF 0-2 Ur Epithelial Cells (Negative) HPF Few Urine Crystals (Negative) HPF Negative Urine Bacteria (Negative) HPF Few Urine Mucus (Negative) Trace Ur Culture Indicated? No Urine Glucose (Negative) mg/dL Negative POC- Test(urine) Negative
[2022-09-15 20:59] VITALS: BP 138/85; PULSE 81; RESP 16; TEMP 37.1; O2SAT 99
== END 2022-09-15 20:59 | disposition home or self-care (01) ==
PROVIDERS: Emergency Provider Physician Assistant; PCP Physician Assistant Medical
DX: R10.32 Left lower quadrant pain (principal); R31.9 Hematuria, unspecified; R30.0 Dysuria
CPT/HCPCS: 81025; 99283; 74176; 81003; 81015

== ENCOUNTER 2022-10-03 10:06 | Emergency (ER) | payer MEDICAID, SELFPAY ==
[2022-10-03 10:23] VITALS: BP 134/89; PULSE 89; TEMP 37.6; O2SAT 97
[2022-10-03 10:35] VITALS: BP 134/89; PULSE 89; TEMP 37.6; O2SAT 97
--- NOTE | 2022-10-03 10:50 | ED.GENADUL_ITS ---
Discharge Plan Disposition Patient Disposition: Home Condition: Stable Discharge Details Clinical Impression: Dysuria, Depression Primary Care Provider: Niyah Serna ED Provider: Oswald Tripp Home Meds and New Rx's Prescriptions: Continued melatonin 3 mg tablet 3 - 5 mg PO HS Rx Instructions: 1-2 tabs (3-6 mg) po at hs albuterol sulfate 90 mcg/actuation HFA aerosol inhaler 1 inh IH ONCE loratadine 10 mg capsule 10 mg PO DAILY labetalol 100 mg tablet 50 mg PO DAILY Digestive Advantage Prob Gummy 250 million cell tablet,chewable 250 cell PO DAILY lidocaine 3.5 % adhesive patch,medicated 1 patch topical DIRECTED medroxyprogesterone [Depo-Provera] 150 mg/mL syringe 150 mg IM every 3 months Qty: 1 5RF Rx Instructions: [facility] to [facility]. quetiapine [Seroquel] 25 mg tablet 25 mg PO HS fluoxetine 10 mg capsule 10 mg PO DAILY epinephrine 0.3 mg/0.3 mL auto-injector 0.3 ml SC ONCE PRN (Reason: anaphylaxis) Qty: 2 0RF Rx Instructions: as a single dose; may repeat once nitrofurantoin monohyd/m-cryst [Macrobid] 100 mg capsule 100 mg PO BID Qty: 10 0RF Rx Instructions: must administer with a meal/food acetaminophen 500 mg Tablet 1,000 mg PO PRN PRN Discharge Instructions Instructions: Depression (ED), Dysuria (ED) Additional Instructions: Your urine sample shows no signs of infection. Please follow the plan set forth by your mental health team. I strongly recommend that you contact your primary care provider tomorrow to discuss your ongoing symptoms and need for outpatient reevaluation. Lastly, please watch for new or worsening symptoms and return to the ER for any concerns. Medical Decision Making 27-year-old female with a past medical history of ADHD, bipolar type II disorder, presents to the ER via EMS for concern of potential reoccurring UTI as well as the thought of being home alone makes her feel sad and suicidal. Patient states that last night she stayed at someone's house, had company, and felt good and safe. She denies anything today to cause self-harm. She denies any fever, abdominal pain, vomiting. Reports occasional nausea but this is typically associated when her anxiety is high. Denies vaginal bleeding or discharge. She is not sexually active. Denies hematuria or back pain. Clinically she appears well, nontoxic. Will obtain a urinalysis, COVID test, request a CPSO, interim care plan, and a mental health evaluation. Of note, patient was seen in the ER on 09-15-2022, diagnosed with UTI, initiated on antibiotics, negative CT abdomen pelvis at that time. Urinalysis reveals no signs of infection. COVID-negative. Contacted [facility] human services. They report that she is a client of the IDDS team and they will be sending one of their staff members. Jagruti came to the ER and was able to evaluate the patient. She believes that discharge home at this time is appropriate, she will help check in with her overnight as the patient does admit she feels lonely. Patient is agreeable to this plan, reports that she feels safe, and is no longer suicidal. Standard discharge and return precautions were provided. Patient understands, is agreeable to this plan, and has no additional questions or concerns upon discharge. This documentation was generated using [employer] dictation system, please disregard any oddities of phrase or misspellings. Medical Records Medical records reviewed: Yes I reviewed the patient's medical records. Lab Data Lab results reviewed: Yes I reviewed the patient's lab results. Labs: Laboratory Tests Range/Units 10/03/22 10/03/22 10/03/22 11:07 11:07 11:15 Urine Color (Yellow) Yellow Urine Clarity (Clear) Clear Urine pH (5-8) 7.5 Ur Specific [place] (1.005-1.025) 1.025 Urine Protein (Negative) mg/dL Trace H Urine Ketones (Negative) mg/dL Negative Urine Blood (Negative) Negative Urine Nitrite (Negative) Negative Urine Bilirubin (Negative) Negative Urine Urobilinogen (Up TO 0.2) EU/dL 0.2 Ur Leukocyte Esterase (Negative) Negative Urine RBC (0-2) HPF 0-2 Urine WBC (0-5) HPF 0-2 Ur Epithelial Cells (Negative) HPF Few Urine Crystals (Negative) HPF Negative Urine Bacteria (Negative) HPF Negative Urine Casts (Negative) LPF Negative Urine Mucus (Negative) Negative Ur Culture Indicated? No Urine Glucose (Negative) mg/dL Negative Urine Opiates Screen (Negative) Negative Urine Methadone Screen (Negative) Negative Ur Barbiturates Screen (Negative) Negative Ur Tricyclics Screen (Negative) Negative Ur Amphetamines Screen (Negative) Negative U Benzodiazepines Scrn (Negative) Negative Urine Cocaine Screen (Negative) Negative Ur THC Screen (Negative) Negative COVID-19 Source Nasal/Nares SARS-CoV-2 (PCR) (Negative) Negative Sign Out No HPI General Mode of arrival: EMS . Date/Time Provider Initiated Documentation: 10/03/22 10:43 . Limitations to Documentation: no limitations . Information obtained by: patient and EMS . HPI Narrative: This is a 27-year-old female who presents to the ER via EMS for evaluation concerned that her UTI has returned over the past couple of weeks, has noticed dysuria and mild hematuria after she completed a course of antibiotics, also reports that she lives at home alone, left a friend's house last night and now the thought of going home alone makes her sad, depressed, and vaguely suicidal without any specific plan. She does not want to act upon any of these thoughts but simply does not want to be alone. She is hoping that she could find someone to stay with her tonight. She denies any self-harm today. Reports that about 1 week ago she did do some mild self cutting but that has healed completely. Otherwise she has no acute medical concerns or complaints. Denies fever, headache, chest pain, shortness of breath, abdominal pain, vomiting. Does report mild nausea and occasionally has some back pain. Denies vaginal bleeding or discharge. Patient reports no risk of STD. Denies skin rash. Related Data Home Medications Medication Instructions Recorded Confirmed acetaminophen 500 mg tablet 1,000 mg PO PRN PRN 10/30/19 09/15/22 albuterol sulfate 90 mcg/actuation 1 inh inhalation ONCE 05/13/20 09/15/22 aerosol inhaler loratadine 10 mg capsule 10 mg PO DAILY 07/31/20 09/15/22 medroxyprogesterone 150 mg/mL 150 mg IM every 3 months #1 SYRG 09/21/21 09/15/22 intramuscular syringe (Depo-Provera) Bacillus coagulans 250 million 250 cell PO DAILY 09/25/21 09/15/22 cell chewable tablet (Digestive Advantage Probiotic Gummy) labetalol 100 mg tablet 50 mg PO DAILY 09/25/21 09/15/22 melatonin 3 mg tablet 3 - 5 mg PO HS 09/25/21 09/15/22 fluoxetine 10 mg capsule 10 mg PO DAILY 01/29/22 09/15/22 quetiapine 25 mg tablet (Seroquel) 25 mg PO HS 01/29/22 09/15/22 lidocaine 3.5 % topical patch 1 patch topical DIRECTED 05/17/22 09/15/22 epinephrine 0.3 mg/0.3 mL 0.3 ml subcut ONCE PRN anaphylaxis 08/14/22 09/15/22 injection, auto-injector #2 ea nitrofurantoin 100 mg PO BID #10 caps 09/11/22 09/15/22 monohydrate/macrocrystals 100 mg capsule (Macrobid) Previous Rx's Medication Instructions Recorded medroxyprogesterone 150 mg/mL 150 mg IM every 3 months #1 SYRG 09/21/21 intramuscular syringe (Depo-Provera) epinephrine 0.3 mg/0.3 mL 0.3 ml subcut ONCE PRN anaphylaxis 08/14/22 injection, auto-injector #2 ea nitrofurantoin 100 mg PO BID #10 caps 09/11/22 monohydrate/macrocrystals 100 mg capsule (Macrobid) Allergies Allergy/AdvReac Type Severity Reaction Status Date / Time fluticasone Allergy Severe unknown Verified 09/15/22 18:31 [From Flovent HFA] lisinopril Allergy Intermediate unknown Verified 09/15/22 18:31 paroxetine HCl [From Paxil] Allergy Intermediate Hives Verified 09/15/22 18:31 polyethylene glycol 3350 Allergy Intermediate unknown Verified 09/15/22 18:31 [From Miralax] risperidone [From Risperdal] Allergy Intermediate Hives Verified 09/15/22 18:31 NSAIDS (Non-Steroidal Allergy Due to Verified 09/15/22 18:31 Anti-Inflamma prior kidney damage acetaminophen AdvReac Nausea Unverified 09/15/22 18:31 amoxicillin AdvReac Nausea Verified 09/15/22 18:31 seafood Allergy Intermediate unknown Uncoded 09/15/22 18:31 enviornmental Allergy Mild sneezing Uncoded 09/15/22 18:31 General Stated Complaint: PsychEval MARY KAY: 2 Review of Systems Constitutional Constitutional: Denies fever(s), Denies headache(s) and Denies weakness ENT Ears, Nose, Mouth, and Throat: Denies headache(s) and Denies neck pain Cardiovascular Cardiovascular: Denies chest pain and Denies dyspnea Respiratory Respiratory: Denies cough and Denies dyspnea Gastrointestinal Gastrointestinal: Denies abdominal pain, Reports nausea and Denies vomiting Genitourinary Genitourinary: Denies abnormal vaginal bleeding, Reports hematuria, Reports dysuria and Denies vaginal discharge Musculoskeletal Musculoskeletal: Reports back pain and Denies neck pain Integumentary/Breasts Skin/Breast: Denies rash Neurologic Neurologic: Denies headache(s) and Denies weakness Psychiatric Psychiatric: Reports depression, Denies homicidal ideation and Reports suicidal ideation [facility] All Active Problems (Updated 10/03/22 @ 12:27 by HARRISON Portillo) COVID (Acute) COVID (Acute) Abdominal pain (Acute) Vaginal discharge (Acute) Female dyspareunia (Acute) UTI (urinary tract infection) (Acute) Blood in urine (Acute) Abdominal pain (Acute) Dysuria (Acute) Depression (Chronic) Hyperplastic colon polyp (Acute) Rectal polyp (Acute) Chronic kidney disease, stage 1 (Chronic 12/31/16) from renal infection as a child elevated BP resulting 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 Patient is using the Depo- Provera for menstrual cycle control. Depression (12/31/16) Drug abuse, episodic use Dysuria Family history of colon cancer Fatigue Generalized headaches (12/31/16) Hemolytic uremic syndrome History of allergic reaction History of mastoiditis Hypertrophy of tonsils and adenoids Illiteracy Per caregiver she is able to read and write, she needs assitance with comprehension of more complex words. Jaw pain Mesenteric lymphadenitis Otalgia, right ear Overactive bladder (02/09/18) Pain, dental PTSD (post-traumatic stress disorder) RBC microcytosis Steatosis of liver SASHA (stress urinary incontinence, female) Suicidal ideation TMJ tenderness, left Vitamin D deficiency Surgical History History of colonoscopy (~06/2022) History of kidney surgery Hx of tooth extraction Social History Smoking/Tobacco Use Status: Current every day Tobacco Type: e-cigarettes Smoking risk assessment performed?: Yes Alcohol Intake: former Drug use: Current Sobriety Substance use type: marijuana Sexually active: Yes (female partner only now(May 2022). Has never had intercourse) Do you think of yourself as: lesbian/cash/homosexual What is your relationship status?: never Panel score (0-1 are the most socially isolated patients): 0 Do you feel safe at home: Yes Do you feel safe in your relationship?: Yes Additional Social history: lives alone Female Reproductive History Menstrual control method: progesterone injection History History 0 Para Hx # Term Pregnancies Multiple births Hx # Pregnancies Ectopic pregnancies AB induced Hx Number of Living Children AB spontaneous Exam Const General: cooperative, healthy appearing, comfortable and no acute distress Orientation: alert and awake HENMT Head: normal to inspection, normocephalic and atraumatic Face and sinus: normal facial exam Mouth: oral mucosae normal and moist mucous membranes Throat: posterior oropharynx normal Eyes General: appearance normal, both eyes and all related structures Conjunctivae: conjunctivae normal Neck Neck: normal visual inspection, full ROM, no meningeal signs, trachea midline and supple Resp Effort & Inspection: normal respiratory effort and able to speak in complete sentences Auscultation: clear to auscultation bilaterally Cardio Rate: regular rate Rhythm: regular rhythm GI Palpation: soft, not firm, no guarding, no pulsatile masses and nontender Auscultation: normal bowel sounds Back/Spine/Pelvis Back: No back tenderness Skin General skin exam: no rashes or lesions noted Neuro General: patient alert, patient awake, moves all extremities and no focal motor deficits Cognition: normal cognition Speech: speech normal Gait: normal gait Motor: muscle tone normal throughout Sensory Exam: no sensory deficits noted Extrem General: normal to inspection, full ROM and capillary refill normal Psych Appearance: grossly normal Mental Status: mental status grossly normal Speech and Movement: speech and movement normal Mood: dysthymic mood Affect: sad Attitude: cooperative Thought Process: normal Thought Content: suicidality Insight: limited Judgment: limited Other: Patient reports the thought of going home alone makes her feel suicidal but she has no specific plan and she does not want to act upon this. She feels safe here in the ER and here she does not feel suicidal. Course Vital Signs Vital signs: Vital Signs Temperature 37.6 C H 10/03/22 10:23 Pulse 89 10/03/22 10:23 Blood Pressure 134/89 10/03/22 10:23 Pulse Oximetry 97 10/03/22 10:23 Temperature 37.6 C H 10/03/22 10:35 Temperature Source Oral 10/03/22 10:35 Pulse 89 10/03/22 10:35 Blood Pressure 134/89 10/03/22 10:35 Pulse Oximetry 97 10/03/22 10:35 Oxygen Delivery Method Room Air 10/03/22 10:35 Oxygen Flow Rate 0 10/03/22 10:35 Pain Level 5 10/03/22 10:35
[2022-10-03 11:26] LABS: Source Nasal/Nares
[2022-10-03 11:35] LABS: Bilirubin Negative (Negative); Blood Negative (Negative); Clarity Clear (Clear); Glucose Negative (Negative); Ketones Negative (Negative); Leukocyte Esterase Negative (Negative); Nitrite Negative (Negative); Specific Gravity 1.025 (1.005-1.025); Urobilinogen 0.2 EU/dL (Up TO 0.2); pH 7.5 (5-8)
[2022-10-03 11:44] LABS: *AMPHETAMINES SCREEN URINE Negative (Negative); *BARBITURATES SCREEN URINE Negative (Negative); *BENZODIAZEPINES SCREEN URINE Negative (Negative); Cannabinoids THC Negative (Negative); Cocaine Screen,Urine Negative (Negative); METHADONE URINE SCREEN Negative (Negative); OPIATES URINE SCREEN Negative (Negative)
[2022-10-03 11:45] LABS: Tricyclic Antidepressants Negative (Negative)
[2022-10-03 11:51] LABS: Bacteria Negative HPF (Negative); C & S Indicated? No; Casts Negative LPF (Negative); Crystals Negative HPF (Negative); Epithelial Cells Few HPF (Negative); Mucus Negative (Negative); RBC 0-2 HPF (0-2); WBC 0-2 HPF (0-5)
[2022-10-03] MEDS: Ondansetron O.D.T. 4 MG TABEF (11:53)
[2022-10-03 12:05] LABS: COVID-19 PCR Negative (Negative)
== END 2022-10-03 12:47 | disposition home or self-care (01) ==
PROVIDERS: Emergency Provider Physician Assistant; PCP Nurse Practitioner Family
DX: F32.A Depression, unspecified (principal); R30.0 Dysuria; F90.9 Attention-deficit hyperactivity disorder, unspecified type; F31.81 Bipolar II disorder; I12.9 Hypertensive chronic kidney disease with stage 1 through stage 4 chronic kidney disease, or unspecified chronic kidney disease; N18.1 Chronic kidney disease, stage 1; Z20.822 Contact with and (suspected) exposure to COVID-19; Z86.16 Personal history of COVID-19
CPT/HCPCS: 80307; 87635; 99283; 81003; 81015; 99284

== ENCOUNTER 2022-10-03 14:31 | Emergency (ER) | payer MEDICAID, SELFPAY ==
--- NOTE | 2022-10-03 14:30 | RT.EKG_ITS ---
APPROVED REPORT Exam: Resting ECG Reason for Exam: Overdose Patient Location: E HR:105 bpm ECG Measurements Heart Rate 105 AXIS MA 131 P 40 QRSd 81 QRS 23 QT 341 T 14 QTc 452 Conclusion Sinus tachycardia...rate> 99
[2022-10-03 14:36] VITALS: BP 139/103; PULSE 112; RESP 16; TEMP 37; O2SAT 97
[2022-10-03 14:39] VITALS: RESP 16
--- NOTE | 2022-10-03 14:56 | W.ED.GENAD ---
Discharge Plan Disposition Patient Disposition: Home Condition: Improving Discharge Details Clinical Impression: Situational anxiety Primary Care Provider: Niyah Serna ED Provider: Ezequiel Hartman Home Meds and New Rx's Prescriptions: Continued melatonin 3 mg tablet 3 - 5 mg PO HS Rx Instructions: 1-2 tabs (3-6 mg) po at hs albuterol sulfate 90 mcg/actuation HFA aerosol inhaler 1 inh IH ONCE loratadine 10 mg capsule 10 mg PO DAILY labetalol 100 mg tablet 50 mg PO DAILY Digestive Advantage Prob Gummy 250 million cell tablet,chewable 250 cell PO DAILY lidocaine 3.5 % adhesive patch,medicated 1 patch topical DIRECTED medroxyprogesterone [Depo-Provera] 150 mg/mL syringe 150 mg IM every 3 months Qty: 1 5RF Rx Instructions: [facility] for [facility]. quetiapine [Seroquel] 25 mg tablet 25 mg PO BID fluoxetine 10 mg capsule 20 mg PO DAILY epinephrine 0.3 mg/0.3 mL auto-injector 0.3 ml SC ONCE PRN (Reason: anaphylaxis) Qty: 2 0RF Rx Instructions: as a single dose; may repeat once acetaminophen 500 mg Tablet 1,000 mg PO PRN PRN clonidine HCl 0.2 mg tablet 1 tab PO HS Label Comments: TAKE ONE TABLET BY MOUTH AT BEDTIME naproxen sodium 220 mg Tablet 220 mg PO PRN PRN Discharge Instructions Instructions: Anxiety (ED) Additional Instructions: No further doses of fluoxetine today, you may resume your normal dose tomorrow. You may use your nighttime melatonin and other nighttime medications as normally scheduled. Home to rest today. Charcoal will likely turn your stool dark or black. Return for any acute concern. Referrals: Zaid Tapia MD [ [facility] STAFF PHYSICIAN] - Medical Decision Making This is a 27-year-old female who was seen earlier in the day for some mild anxiety and UTI symptoms. Please see Mr. Tripp's note regarding that visit. Patient was anxious about returning home alone and took 40 mg of fluoxetine and one 3 mg tablet of melatonin to help ease her anxieties. Following the ingestion she became anxious that she had taken too much medicine and called her hair baler who presents with her to the ER. The patient states she no longer feels like harming herself or others, she notes that she has ongoing anxiety. Her exam reveals mild tachycardia of approximately 110. Patient had screening laboratories obtained, given anxiolytic. She states to me that she wishes to get rid of the medications she ingested and I talked to her about the therapeutic effects of a half dose of activated charcoal. Patient's laboratories reassuring, no evidence of adverse effect of her intentional use of double dose of fluoxetine and single dose of melatonin. She is stable for discharge and has an outpatient plan of safety with her case management team. Sign Out No HPI General Mode of arrival: ambulatory. Date/Time Provider Initiated Documentation: 10/03/22 14:34. Limitations to Documentation: no limitations. Information obtained by: patient. History of Present Illness 27 year old F presents to the emergency department with the chief complaint of Intentional ingestion of fluoxetine 40 mg and melatonin 3 mg, now improved, Patient started experiencing this hour(s) and it has been now resolved. No relieving factors improve symptom(s), No exacerbating factors reported . Patient notes denies cough, diaphoresis, fever/chills and headaches. Patient did receive the following treatments prior to arrival, none Related Data Home Medications Medication Instructions Recorded Confirmed acetaminophen 500 mg tablet 1,000 mg PO PRN PRN 10/30/19 10/03/22 albuterol sulfate 90 mcg/actuation 1 inh inhalation ONCE 05/13/20 10/03/22 aerosol inhaler loratadine 10 mg capsule 10 mg PO DAILY 07/31/20 10/03/22 medroxyprogesterone 150 mg/mL 150 mg IM every 3 months #1 SYRG 09/21/21 10/03/22 intramuscular syringe (Depo-Provera) Bacillus coagulans 250 million 250 cell PO DAILY 09/25/21 10/03/22 cell chewable tablet (Digestive Advantage Probiotic Gummy) labetalol 100 mg tablet 50 mg PO DAILY 09/25/21 10/03/22 melatonin 3 mg tablet 3 - 5 mg PO HS 09/25/21 10/03/22 fluoxetine 10 mg capsule 20 mg PO DAILY 01/29/22 10/03/22 quetiapine 25 mg tablet (Seroquel) 25 mg PO BID 01/29/22 10/03/22 lidocaine 3.5 % topical patch 1 patch topical DIRECTED 05/17/22 10/03/22 epinephrine 0.3 mg/0.3 mL 0.3 ml subcut ONCE PRN anaphylaxis 08/14/22 10/03/22 injection, auto-injector #2 ea clonidine HCl 0.2 mg tablet 1 tab PO HS 10/03/22 10/03/22 naproxen sodium 220 mg tablet 220 mg PO PRN PRN 10/03/22 10/03/22 Previous Rx's Medication Instructions Recorded medroxyprogesterone 150 mg/mL 150 mg IM every 3 months #1 SYRG 09/21/21 intramuscular syringe (Depo-Provera) epinephrine 0.3 mg/0.3 mL 0.3 ml subcut ONCE PRN anaphylaxis 08/14/22 injection, auto-injector #2 ea Allergies Allergy/AdvReac Type Severity Reaction Status Date / Time fluticasone Allergy Severe unknown Verified 10/03/22 15:06 [From Flovent HFA] lisinopril Allergy Intermediate unknown Verified 10/03/22 15:06 paroxetine HCl [From Paxil] Allergy Intermediate Hives Verified 10/03/22 15:06 polyethylene glycol 3350 Allergy Intermediate unknown Verified 10/03/22 15:06 [From Miralax] risperidone [From Risperdal] Allergy Intermediate Hives Verified 10/03/22 15:06 NSAIDS (Non-Steroidal Allergy Due to Verified 10/03/22 15:06 Anti-Inflamma prior kidney damage acetaminophen AdvReac Nausea Unverified 10/03/22 15:06 amoxicillin AdvReac Nausea Verified 10/03/22 15:06 seafood Allergy Intermediate unknown Uncoded 10/03/22 15:06 enviornmental Allergy Mild sneezing Uncoded 10/03/22 15:06 General Stated Complaint: OD/Poison MARY KAY: 2 Review of Systems Narrative: Denies any further thoughts of harming herself or others. [place] anxious and wanted to feel better and therefore took her medications. Recently diagnosed with UTI which is improving. 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 Patient is using the Depo-Provera for menstrual cycle control. Depression (12/31/16) Drug abuse, episodic use Dysuria Family history of colon cancer Fatigue Generalized headaches (12/31/16) Hemolytic uremic syndrome History of allergic reaction History of mastoiditis Hypertrophy of tonsils and adenoids Illiteracy Per caregiver she is able to read and write, she needs assitance with comprehension of more complex words. Jaw pain Mesenteric lymphadenitis Otalgia, right ear Overactive bladder (02/09/18) Pain, dental PTSD (post-traumatic stress disorder) RBC microcytosis Steatosis of liver SASHA (stress urinary incontinence, female) Suicidal ideation TMJ tenderness, left Vitamin D deficiency Surgical History History of colonoscopy (~06/2022) History of kidney surgery Hx of tooth extraction Social History Smoking/Tobacco Use Status: Current every day Tobacco Type: e-cigarettes Smoking risk assessment performed?: Yes Alcohol Intake: former Drug use: Current Sobriety Substance use type: marijuana Sexually active: Yes (female partner only now(May 2022). Has never had intercourse) Do you think of yourself as: lesbian/cash/homosexual What is your relationship status?: never Panel score (0-1 are the most socially isolated patients): 0 Do you feel safe at home: Yes Do you feel safe in your relationship?: Yes Additional Social history: lives alone Female Reproductive History Menstrual control method: progesterone injection History History 0 Para Hx # Term Pregnancies Multiple births Hx # Pregnancies Ectopic pregnancies AB induced Hx Number of Living Children AB spontaneous Exam Narrative Exam Narrative: GEN: awake, alert, oriented 3. Pleasant, well groomed, interactive. HEAD: Normocephalic, atraumatic ENT: Mucous membranes moist, oropharynx unremarkable, External ear exam unremarkable EYES: PERRL, EOMI NECK: Full ROM, no SAMANTHA, no menigismus CHEST/RESP: Nontender, clear to auscultation bilateral, no wheeze/rhonchi/rales CARDIOVASCULAR: Regular and borderline tachycardia, no murmur, rub lis. 2+ Rad pulse bilateral ABDOMEN: Soft, nontender, no mass. +Bowel sounds EXT: Full ROM, no edema, no rash Neuro: Grossly normal neurologic exam, conversant, interactive. Psych: Speech fluent, thoughts congruent, affect anxious Course Vital Signs Vital signs: Vital Signs Temperature 37.0 C 10/03/22 14:36 Pulse 112 H 10/03/22 14:36 Respiratory Rate 16 10/03/22 14:36 Blood Pressure 139/103 H 10/03/22 14:36 Pulse Oximetry 97 10/03/22 14:36 Temperature 37.0 C 10/03/22 14:36 Temperature Source Skin 10/03/22 14:36 Pulse 112 H 10/03/22 14:36 Respiratory Rate 16 10/03/22 14:39 Respiratory Effort 10/03/22 14:39 Respiratory Depth Normal 10/03/22 14:39 Respiratory Pattern Normal 10/03/22 14:39 Blood Pressure 139/103 H 10/03/22 14:36 Blood Pressure Position Sitting 10/03/22 14:36 Pulse Oximetry 97 10/03/22 14:36 Oxygen Delivery Method Room Air 10/03/22 14:36 Oxygen Flow Rate 0 10/03/22 14:36 Pain Level 8 10/03/22 14:36 Comment 10/03/22 14:36
[2022-10-03] MEDS: ALPRAZolam 0.5 MG TAB PO (15:36)
[2022-10-03 15:37] LABS: *AMPHETAMINES SCREEN URINE Negative (Negative); *BARBITURATES SCREEN URINE Negative (Negative); *BENZODIAZEPINES SCREEN URINE Negative (Negative); Cannabinoids THC Negative (Negative); Cocaine Screen,Urine Negative (Negative); METHADONE URINE SCREEN Negative (Negative); OPIATES URINE SCREEN Negative (Negative)
[2022-10-03 15:39] LABS: Tricyclic Antidepressants Negative (Negative)
[2022-10-03 15:45] LABS: Abs Immature Grans 0.04 10^3/uL (0.0-0.06); Absolute Basophil Count 0.05 10^3/uL (0.0-0.2); Absolute Eosinophil Count 0.05 10^3/uL (0.0-0.7); Absolute Lymphocyte Count 1.68 10^3/uL (1.2-3.4); Basophils % 0.4; Eosinophils % 0.4; HCT 41.7 % (36.0-46.0); HGB 13.6 g/dL (11.2-15.7); Immature Grans % 0.3; Lymphocytes % 13.7; MCH 24.4 pg (27.0-33.0); MCHC 32.6 % (32.0-36.0); MCV 75 fL (80-95); MPV 13.4 fL (8.0-11.0); Monocytes % 5.9; Neutrophils % 79.3; Platelet Count 291 10^3/uL (130-400); RBC 5.57 10^6/uL (3.93-5.22); RDW 15.3 % (11.7-14.6); RDW-SD 41.1 fL; WBC 12.27 10^3/uL (4.4-10.8)
[2022-10-03 15:50] LABS: Absolute Monocyte Count 0.72 10^3/uL (0.1-0.8); Absolute Neutrophil Count 9.73 10^3/uL (1.2-6.7)
[2022-10-03 15:52] LABS: Magnesium 1.8 mg/dL (1.8-2.4)
[2022-10-03 15:55] LABS: ALT 20 U/L (14-59); AST 12 U/L (15-37); Albumin 4.3 g/dL (3.4-5.0); Alkaline Phosphatase 99 U/L (46-116); Anion Gap 10.9 mmol/L (3-11); BUN 8 mg/dL (7-18); Bilirubin, Total 0.5 mg/dL (0.2-1.0); CO2 23.1 mmol/L (21.0-32.0); CREATININE 0.8 mg/dL (0.55-1.02); Calcium 9.6 mg/dL (8.5-10.1); Chloride 100 mmol/L (98-107); Glucose 114 mg/dL (74-106); Potassium 3.7 mmol/L (3.5-5.1); Sodium 134 mmol/L (136-145); Total Protein 8.3 g/dL (6.4-8.2)
[2022-10-03 16:00] LABS: ETHANOL BLOOD < 3.0 mg/dL (<10)
[2022-10-03] MEDS: Charcoal/Aqueous 50 GM TUBE 12.5 GM PO (16:10)
[2022-10-03 16:17] LABS: Salicylate < 2.8 mg/dL (<2.8)
[2022-10-03 16:18] LABS: Acetaminophen < 2 ug/mL (10-30)
== END 2022-10-03 16:29 | disposition home or self-care (01) ==
PROVIDERS: Emergency Provider Emergency Medicine; PCP Nurse Practitioner Family
DX: F41.8 Other specified anxiety disorders (principal); I12.9 Hypertensive chronic kidney disease with stage 1 through stage 4 chronic kidney disease, or unspecified chronic kidney disease; N18.9 Chronic kidney disease, unspecified; F90.9 Attention-deficit hyperactivity disorder, unspecified type; Z86.16 Personal history of COVID-19
CPT/HCPCS: 80053; 80307; 93005; 99283; 80320; 80329; 83735; 85025; 93010; 99284

== ENCOUNTER 2022-10-03 19:24 | Emergency (ER) | payer MEDICAID, SELFPAY ==
[2022-10-03 19:28] VITALS: BP 136/92; PULSE 99; RESP 16; TEMP 37; O2SAT 97
--- NOTE | 2022-10-03 19:58 | W.ED.GENAD ---
Discharge Plan Disposition Patient Disposition: Home Condition: Stable Discharge Details Clinical Impression: Vomiting Primary Care Provider: Niyah Serna ED Provider: Terra Melendez Home Meds and New Rx's Prescriptions: No Action melatonin 3 mg tablet 3 - 5 mg PO HS Rx Instructions: 1-2 tabs (3-6 mg) po at hs albuterol sulfate 90 mcg/actuation HFA aerosol inhaler 1 inh IH ONCE loratadine 10 mg capsule 10 mg PO DAILY labetalol 100 mg tablet 50 mg PO DAILY Digestive Advantage Prob Gummy 250 million cell tablet,chewable 250 cell PO DAILY lidocaine 3.5 % adhesive patch,medicated 1 patch topical DIRECTED medroxyprogesterone [Depo-Provera] 150 mg/mL syringe 150 mg IM every 3 months Qty: 1 5RF Rx Instructions: [facility]. quetiapine [Seroquel] 25 mg tablet 25 mg PO BID fluoxetine 10 mg capsule 20 mg PO DAILY epinephrine 0.3 mg/0.3 mL auto-injector 0.3 ml SC ONCE PRN (Reason: anaphylaxis) Qty: 2 0RF Rx Instructions: as a single dose; may repeat once acetaminophen 500 mg Tablet 1,000 mg PO PRN PRN clonidine HCl 0.2 mg tablet 1 tab PO HS Label Comments: TAKE ONE TABLET BY MOUTH AT BEDTIME naproxen sodium 220 mg Tablet 220 mg PO PRN PRN Discharge Instructions Instructions: Activated Charcoal (ED), Acute Nausea and Vomiting (ED) Additional Instructions: Please take Zofran 3 times daily as needed for nausea and vomiting. Follow up with primary care provider in 3-5 days. Return to ED sooner if any worsening or concerns. Increase oral fluids. Referrals: Niyah Serna [Primary Care Provider] - 3 days Medical Decision Making Discussed with patient and protective services case worker that Charcoal may have this effect and can induce vomiting. . We will give Zofran 4 mg ODT. Patient had a full work-up today need to repeat the labs from earlier today. 2041: After attempting staff that patient had episode of emesis. IV ordered with liter of normal saline and Phenergan. Per care rehabilitation case coordinatorurban renewal manager to staff reporter there is a question of patient attempting to grab razor blades and saying that she wanted prior to arrival. However when asked about this patient is denying suicidal ideation at this time she states that she was trying to get the razors out of the shower. She denies trying to cut herself. Patient requesting her nightly meds including clonidine and Seroquel. She is also requesting melatonin however she did overdose earlier today. They did give her the Seroquel and clonidine, patient feels much better after the Phenergan. Patient discharged with follow-up care. This text was generated using [employer] system, please disregard any oddities of phrase or misspellings. Medical Records Medical records reviewed: Yes I reviewed the patient's medical records. Lab Data Lab results reviewed: Yes I reviewed the patient's lab results. Sign Out No HPI General Mode of arrival: ambulatory. Date/Time Provider Initiated Documentation: 10/03/22 19:49. Limitations to Documentation: no limitations. Information obtained by: patient, RN notes reviewed and old records reviewed. HPI Narrative: 27-year-old female past medical history UTI #hypertension, bipolar disorder, PTSD and ADHD presents for the third time today after receiving p.o. charcoal since her previous stay for taking extra dose of her fluoxetine and melatonin. She reports vomiting at home. She last had some Zofran around noon today. She also reports body aches. Related Data Home Medications Medication Instructions Recorded Confirmed acetaminophen 500 mg tablet 1,000 mg PO PRN PRN 10/30/19 10/03/22 albuterol sulfate 90 mcg/actuation 1 inh inhalation ONCE 05/13/20 10/03/22 aerosol inhaler loratadine 10 mg capsule 10 mg PO DAILY 07/31/20 10/03/22 medroxyprogesterone 150 mg/mL 150 mg IM every 3 months #1 SYRG 09/21/21 10/03/22 intramuscular syringe (Depo-Provera) Bacillus coagulans 250 million 250 cell PO DAILY 09/25/21 10/03/22 cell chewable tablet (Digestive Advantage Probiotic Gummy) labetalol 100 mg tablet 50 mg PO DAILY 09/25/21 10/03/22 melatonin 3 mg tablet 3 - 5 mg PO HS 09/25/21 10/03/22 fluoxetine 10 mg capsule 20 mg PO DAILY 01/29/22 10/03/22 quetiapine 25 mg tablet (Seroquel) 25 mg PO BID 01/29/22 10/03/22 lidocaine 3.5 % topical patch 1 patch topical DIRECTED 05/17/22 10/03/22 epinephrine 0.3 mg/0.3 mL 0.3 ml subcut ONCE PRN anaphylaxis 08/14/22 10/03/22 injection, auto-injector #2 ea clonidine HCl 0.2 mg tablet 1 tab PO HS 10/03/22 10/03/22 naproxen sodium 220 mg tablet 220 mg PO PRN PRN 10/03/22 10/03/22 Previous Rx's Medication Instructions Recorded medroxyprogesterone 150 mg/mL 150 mg IM every 3 months #1 SYRG 09/21/21 intramuscular syringe (Depo-Provera) epinephrine 0.3 mg/0.3 mL 0.3 ml subcut ONCE PRN anaphylaxis 08/14/22 injection, auto-injector #2 ea Allergies Allergy/AdvReac Type Severity Reaction Status Date / Time fluticasone Allergy Severe unknown Verified 10/03/22 19:43 [From Flovent HFA] lisinopril Allergy Intermediate unknown Verified 10/03/22 19:43 paroxetine HCl [From Paxil] Allergy Intermediate Hives Verified 10/03/22 19:43 polyethylene glycol 3350 Allergy Intermediate unknown Verified 10/03/22 19:43 [From Miralax] risperidone [From Risperdal] Allergy Intermediate Hives Verified 10/03/22 19:43 NSAIDS (Non-Steroidal Allergy Due to Verified 10/03/22 19:43 Anti-Inflamma prior kidney damage acetaminophen AdvReac Nausea Unverified 10/03/22 19:43 amoxicillin AdvReac Nausea Verified 10/03/22 19:43 seafood Allergy Intermediate unknown Uncoded 10/03/22 19:43 enviornmental Allergy Mild sneezing Uncoded 10/03/22 19:43 General Stated Complaint: Nausea/Vomit/Diar MARY KAY: 3 Review of Systems All systems reviewed & are unremarkable except as noted in HPI and below Constitutional Constitutional: Reports as per HPI and Reports body ache(s) Gastrointestinal Gastrointestinal: Reports nausea and Reports vomiting PFSH All Active Problems (Updated 10/03/22 @ 20:23 by Terra Melendez NP) COVID (Acute) COVID (Acute) Abdominal pain (Acute) Vaginal discharge (Acute) Female dyspareunia (Acute) UTI (urinary tract infection) (Acute) Blood in urine (Acute) Abdominal pain (Acute) Dysuria (Acute) Depression (Chronic) Situational anxiety (Acute) Vomiting (Acute) Hyperplastic colon polyp (Acute) Rectal polyp (Acute) Chronic kidney disease, stage 1 (Chronic 12/31/16) from renal infection as a child elevated BP resulting 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 Patient is using the Depo-Provera for menstrual cycle control. Depression (12/31/16) Drug abuse, episodic use Dysuria Family history of colon cancer Fatigue Generalized headaches (12/31/16) Hemolytic uremic syndrome History of allergic reaction History of mastoiditis Hypertrophy of tonsils and adenoids Illiteracy Per caregiver she is able to read and write, she needs assitance with comprehension of more complex words. Jaw pain Mesenteric lymphadenitis Otalgia, right ear Overactive bladder (02/09/18) Pain, dental PTSD (post-traumatic stress disorder) RBC microcytosis Steatosis of liver SASHA (stress urinary incontinence, female) Suicidal ideation TMJ tenderness, left Vitamin D deficiency Surgical History History of colonoscopy (~06/2022) History of kidney surgery Hx of tooth extraction Social History Smoking/Tobacco Use Status: Current every day Tobacco Type: e-cigarettes Smoking risk assessment performed?: Yes Alcohol Intake: former Drug use: Current Sobriety Substance use type: marijuana Sexually active: Yes (female partner only now(May 2022). Has never had intercourse) Do you think of yourself as: lesbian/cash/homosexual What is your relationship status?: never Panel score (0-1 are the most socially isolated patients): 0 Do you feel safe at home: Yes Do you feel safe in your relationship?: Yes Additional Social history: lives alone Female Reproductive History Menstrual control method: progesterone injection History History 0 Para Hx # Term Pregnancies Multiple births Hx # Pregnancies Ectopic pregnancies AB induced Hx Number of Living Children AB spontaneous Exam Narrative Exam Narrative: Constitutional: Alert and oriented x3. Appears stated age. Normal body habitus. Head: Normocephalic, no trauma. Eyes: Pupils PERRL, Red reflex noted, EOM's intact. Eyelids symmetrical without lesions, discharge, or swelling. ENT: Bilateral TM's WNL, External ear normal to inspection, no mastoid TTP, swelling, or erythema, Nasal turbinates WNL, no nasal discharge. Normal dentition, Posterior pharynx WNL, no exudate. Chest: RRR, Normal S1, S2, distal pulses intact. Resp: Lungs clear to auscultation bilaterally, no wheezes, rales, or rhonchi. Abdomen: Soft, non-distended, Normoactive bowel sounds all 4 quads. Musculoskeletal: Normal gait, 5/5 strength to all four extremities. Skin: No suspicious rashes or lesions. Capillary refill less than 2 sec. Neurologic: Cranial nerves II-XII intact. Alert and oriented x 3. Motor: No deficits noted. Sensory: Intact bilaterally all 4 extremities. Reflexes: DTR's intact bilaterally.. Hematologic/Lymphatic: No ecchymosis, no lymphadenopathy. Course Vital Signs Vital signs: Vital Signs Temperature 37 C 10/03/22 19:28 Pulse 99 H 10/03/22 19:28 Respiratory Rate 16 10/03/22 19:28 Blood Pressure 136/92 H 10/03/22 19:28 Pulse Oximetry 97 10/03/22 19:28 Temperature 37 C 10/03/22 19:28 Temperature Source Skin 10/03/22 19:28 Pulse 99 H 10/03/22 19:28 Respiratory Rate 16 10/03/22 19:28 Respiratory Effort 10/03/22 19:41 Blood Pressure 136/92 H 10/03/22 19:28 Pulse Oximetry 97 10/03/22 19:28 Oxygen Delivery Method Room Air 10/03/22 19:28 Oxygen Flow Rate 0 10/03/22 19:28 Pain Level 7 10/03/22 19:28
[2022-10-03] MEDS: Ondansetron O.D.T. 4 MG TABEF PO (20:04)
[2022-10-03] MEDS: Ondansetron O.D.T. 4 MG TABEF, 3 TABS/BTL PO (20:32)
[2022-10-03] MEDS: Normal Saline 1,000 ML 1000 ML IV (21:05)
[2022-10-03] MEDS: cloNIDine 0.1 MG TAB 0.2 MG PO (21:45)
[2022-10-03] MEDS: QUEtiapine 25 MG TAB PO (21:45)
[2022-10-03 21:49] VITALS: BP 120/81; PULSE 87; TEMP 36.5; O2SAT 98
== END 2022-10-03 21:51 | disposition home or self-care (01) ==
PROVIDERS: Emergency Provider Registered Nurse Emergency; PCP Nurse Practitioner Family
DX: R11.10 Vomiting, unspecified (principal)
CPT/HCPCS: 96361; 96365; 99284; 99283

== ENCOUNTER 2022-10-04 08:16 | Emergency (ER) | payer MEDICAID, SELFPAY ==
[2022-10-04 08:16] VITALS: BP 149/90; PULSE 89; RESP 20; TEMP 36.7; O2SAT 97
--- NOTE | 2022-10-04 08:45 | ED.GENADUL_ITS ---
Discharge Plan Disposition Patient Disposition: Home Condition: Improving Discharge Details Clinical Impression: Drug-induced nausea and vomiting, Depression, Situational anxiety Primary Care Provider: Niyah Serna ED Provider: Kenton Irene Home Meds and New Rx's Prescriptions: New promethazine 25 mg tablet 25 mg PO Q6H PRN (Reason: nausea and vomiting) Qty: 10 0RF Continued melatonin 3 mg tablet 3 - 5 mg PO HS Rx Instructions: 1-2 tabs (3-6 mg) po at hs albuterol sulfate 90 mcg/actuation HFA aerosol inhaler 1 inh IH ONCE loratadine 10 mg capsule 10 mg PO DAILY labetalol 100 mg tablet 50 mg PO DAILY Digestive Advantage Prob Gummy 250 million cell tablet,chewable 250 cell PO DAILY lidocaine 3.5 % adhesive patch,medicated 1 patch topical DIRECTED medroxyprogesterone [Depo-Provera] 150 mg/mL syringe 150 mg IM every 3 months Qty: 1 5RF Rx Instructions: [facility]. quetiapine [Seroquel] 25 mg tablet 25 mg PO BID fluoxetine 10 mg capsule 20 mg PO DAILY epinephrine 0.3 mg/0.3 mL auto-injector 0.3 ml SC ONCE PRN (Reason: anaphylaxis) Qty: 2 0RF Rx Instructions: as a single dose; may repeat once acetaminophen 500 mg Tablet 1,000 mg PO PRN PRN clonidine HCl 0.2 mg tablet 1 tab PO HS Label Comments: TAKE ONE TABLET BY MOUTH AT BEDTIME naproxen sodium 220 mg Tablet 220 mg PO PRN PRN Discharge Instructions Instructions: Depression (ED), Acute Nausea and Vomiting (ED), Anxiety (ED) Additional Instructions: Please follow the develop safety plan as discussed and if you have any new or significant worsening of symptoms please return to the emergency department for reassessment. You have been prescribed some further Phenergan to help with your nausea that I feel secondary to the activated charcoal. It is reassuring that you are feeling better so slowly advance your diet as tolerated. Referrals: Niyah Serna [Primary Care Provider] - (As needed for any further adjustments of your medications or medical complaints.) Discharge Data Discharge Date/Time-TO BE ENTERED AT DEPARTURE: 10/04/22 11:37 Medical Decision Making Patient presenting to the emergency department for chief complaint of upset stomach and nausea. Patient states that this all started after she was given activated charcoal yesterday in the emergency department. This is patient's fourth visit in the last 24 hours. Patient denies any vomiting, fever, or other physical symptoms but does state that she has been significantly depressed, feeling hopeless, and loneliness. She states this is secondary to poor staffing at the agency that assist her. At this time patient is denying homicidal or suicidal ideations but is hinting at wanting to be admitted secondary to her loneliness. Physical exam is unremarkable, no abdominal pain, normal active bowel sounds. We will plan on giving patient p.o. Phenergan which helped her yesterday along with GI cocktail. We will also contact [facility] in regards to evaluation of patient. This time I do not feel any need to perform additional lab work-up given that she had appropriate and full evaluation yesterday. We will continue to monitor patient. Patient is here with agency staff. [facility] was able to evaluate patient and establish safety plan. INDS also going to increase sales and support center agent to help with patient's depression and loneliness. Patient was able to tolerate p.o. intake after medication given in the emergency department and states improvement of symptoms. Will prescribe small quantity of Phenergan for home use and discussed with patient return and follow-up precautions along with following safety plan. After discussion of diagnosis and plan of care patient's caregiver and patient has no further needs, questions, or concerns and states clear understanding to return to the emergency department for any worsening symptoms. This documentation was generated using [employer] dictation system, please disregard any oddities of phrase or misspellings. Sign Out No HPI General Mode of arrival: EMS . Date/Time Provider Initiated Documentation: 10/04/22 08:27 . Limitations to Documentation: no limitations . Information obtained by: patient, RN notes reviewed and old records reviewed . History of Present Illness 27 year old F presents to the emergency department with the chief complaint of Nausea, anxiety, depression, described as moderate, severe and similar to prior episodes, with intensity rated at 7. Quality is described as burning, and is localized to the abdomen. Patient reports no radiation. Patient started experiencing this day(s) (1) and it has been constant. Medication improves symptom(s), Other factors that worsen symptoms (Loneliness) . Patient did receive the following treatments prior to arrival, none Related Data Home Medications Medication Instructions Recorded Confirmed acetaminophen 500 mg tablet 1,000 mg PO PRN PRN 10/30/19 10/07/22 albuterol sulfate 90 mcg/actuation 1 inh inhalation ONCE 05/13/20 10/07/22 aerosol inhaler loratadine 10 mg capsule 10 mg PO DAILY 07/31/20 10/07/22 medroxyprogesterone 150 mg/mL 150 mg IM every 3 months #1 SYRG 09/21/21 10/07/22 intramuscular syringe (Depo-Provera) Bacillus coagulans 250 million 250 cell PO DAILY 09/25/21 10/07/22 cell chewable tablet (Digestive Advantage Probiotic Gummy) labetalol 100 mg tablet 50 mg PO DAILY 09/25/21 10/07/22 melatonin 3 mg tablet 3 - 5 mg PO HS 09/25/21 10/07/22 fluoxetine 10 mg capsule 20 mg PO DAILY 01/29/22 10/07/22 quetiapine 25 mg tablet (Seroquel) 25 mg PO BID 01/29/22 10/07/22 lidocaine 3.5 % topical patch 1 patch topical DIRECTED 05/17/22 10/07/22 epinephrine 0.3 mg/0.3 mL 0.3 ml subcut ONCE PRN anaphylaxis 08/14/22 10/07/22 injection, auto-injector #2 ea clonidine HCl 0.2 mg tablet 1 tab PO HS 10/03/22 10/07/22 naproxen sodium 220 mg tablet 220 mg PO PRN PRN 10/03/22 10/07/22 promethazine 25 mg tablet 25 mg PO Q6H PRN nausea and 10/04/22 10/07/22 vomiting #10 tabs Previous Rx's Medication Instructions Recorded medroxyprogesterone 150 mg/mL 150 mg IM every 3 months #1 SYRG 09/21/21 intramuscular syringe (Depo-Provera) epinephrine 0.3 mg/0.3 mL 0.3 ml subcut ONCE PRN anaphylaxis 08/14/22 injection, auto-injector #2 ea promethazine 25 mg tablet 25 mg PO Q6H PRN nausea and 10/04/22 vomiting #10 tabs Allergies Allergy/AdvReac Type Severity Reaction Status Date / Time fluticasone Allergy Severe unknown Verified 10/07/22 19:47 [From Flovent HFA] lisinopril Allergy Intermediate unknown Verified 10/07/22 19:47 paroxetine HCl [From Paxil] Allergy Intermediate Hives Verified 10/07/22 19:47 polyethylene glycol 3350 Allergy Intermediate unknown Verified 10/07/22 19:47 [From Miralax] risperidone [From Risperdal] Allergy Intermediate Hives Verified 10/07/22 19:47 NSAIDS (Non-Steroidal Allergy Due to Verified 10/07/22 19:47 Anti-Inflamma prior kidney damage acetaminophen AdvReac Nausea Unverified 10/07/22 19:47 amoxicillin AdvReac Nausea Verified 10/07/22 19:47 seafood Allergy Intermediate unknown Uncoded 10/07/22 19:47 enviornmental Allergy Mild sneezing Uncoded 10/07/22 19:47 General Stated Complaint: Abd Prob MARY KAY: 3 Review of Systems Constitutional Constitutional: Denies chills, Denies fever(s) and Reports poor appetite Cardiovascular Cardiovascular: Denies chest pain and Denies dyspnea Respiratory Respiratory: Denies cough and Denies dyspnea Gastrointestinal Gastrointestinal: Reports as per HPI, Reports abdominal pain, Denies melena, Denies change in bowel habits, Denies constipation, Denies diarrhea, Reports nausea and Denies vomiting Genitourinary Genitourinary: Denies hematuria, Denies urinary incontinence, Denies urinary hesitancy and Denies urinary urgency Integumentary/Breasts Skin/Breast: Denies rash Psychiatric Psychiatric: Reports anxiety, Reports depression, Reports hopelessness, Denies homicidal ideation and Denies suicidal ideation PFSH All Active Problems (Updated 10/07/22 @ 23:25 by Miguel May MD) COVID (Acute) COVID (Acute) Abdominal pain (Acute) Vaginal discharge (Acute) Female dyspareunia (Acute) UTI (urinary tract infection) (Acute) Blood in urine (Acute) Abdominal pain (Acute) Dysuria (Acute) Depression (Chronic) Situational anxiety (Acute) Vomiting (Acute) Drug-induced nausea and vomiting (Acute) Dizziness (Acute) Nausea and vomiting (Acute) Constipation (Acute) Hyperplastic colon polyp (Acute) Rectal polyp (Acute) Chronic kidney disease, stage 1 (Chronic 12/31/16) from renal infection as a child elevated BP resulting 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 Patient is using the Depo- Provera for menstrual cycle control. Depression (12/31/16) Drug abuse, episodic use Dysuria Family history of colon cancer Fatigue Generalized headaches (12/31/16) Hemolytic uremic syndrome History of allergic reaction History of mastoiditis Hypertrophy of tonsils and adenoids Illiteracy Per caregiver she is able to read and write, she needs assitance with comprehension of more complex words. Jaw pain Mesenteric lymphadenitis Otalgia, right ear Overactive bladder (02/09/18) Pain, dental PTSD (post-traumatic stress disorder) RBC microcytosis Steatosis of liver SASHA (stress urinary incontinence, female) Suicidal ideation TMJ tenderness, left Vitamin D deficiency Surgical History History of colonoscopy (~06/2022) History of kidney surgery Hx of tooth extraction Social History Smoking/Tobacco Use Status: Current every day Tobacco Type: e-cigarettes Smoking risk assessment performed?: Yes Alcohol Intake: former Drug use: Current Sobriety Substance use type: marijuana Sexually active: Yes (female partner only now(May 2022). Has never had intercourse) Do you think of yourself as: lesbian/cash/homosexual What is your relationship status?: never Panel score (0-1 are the most socially isolated patients): 0 Do you feel safe at home: Yes Do you feel safe in your relationship?: Yes Additional Social history: lives alone - states she feels sad when she is alone Female Reproductive History Menstrual control method: progesterone injection History History 0 Para Hx # Term Pregnancies Multiple births Hx # Pregnancies Ectopic pregnancies AB induced Hx Number of Living Children AB spontaneous Exam Const General: cooperative Orientation: alert, awake and oriented x3 Resp Effort & Inspection: normal respiratory effort and able to speak in complete s entences Auscultation: clear to auscultation bilaterally Cardio Rate: regular rate Rhythm: regular rhythm Heart Sounds: S1 normal and S2 normal GI Palpation: soft, no hepatosplenomegaly, not firm, no guarding, no masses, no pulsatile masses, not rigid, no splenomegaly and tender Auscultation: normal bowel sounds Back/Spine/Pelvis Back: no CVA tenderness Neuro General: patient alert, patient awake, patient oriented x3, gait normal and moves all extremities Psych Mood: anxious mood Affect: sad Attitude: cooperative and avoids eye contact Thought Content: no homicidality and suicidality Course Vital Signs Vital signs: Vital Signs Temperature 36.7 C 10/04/22 08:16 Pulse 89 10/04/22 08:16 Respiratory Rate 20 10/04/22 08:16 Blood Pressure 149/90 H 10/04/22 08:16 Pulse Oximetry 97 10/04/22 08:16 Temperature 36.7 C 10/04/22 08:16 Temperature Source Tympanic 10/04/22 08:16 Pulse 89 10/04/22 08:16 Respiratory Rate 20 10/04/22 08:16 Respiratory Effort Non-Labored 10/04/22 08:21 Blood Pressure 149/90 H 10/04/22 08:16 Blood Pressure Position Sitting 10/04/22 08:16 Pulse Oximetry 97 10/04/22 08:16 Oxygen Delivery Method Room Air 10/04/22 08:16 Oxygen Flow Rate 0 10/04/22 08:16 Pain Level 6 10/04/22 08:21
[2022-10-04] MEDS: Promethazine 25 MG TAB PO (08:58)
--- NOTE | 2022-10-04 09:32 | NUR.NOTE ---
Nursing Note: Patient took Fluoxitine, Lebetolol, Quetipine home medications while in room at , okayed by provider.
[2022-10-04 11:40] VITALS: BP 149/90; PULSE 89; RESP 20; TEMP 36.7; O2SAT 97
== END 2022-10-04 11:37 | disposition home or self-care (01) ==
LOC: ER 11:48
PROVIDERS: Emergency Provider Nurse Practitioner Family; PCP Nurse Practitioner Family
DX: R11.2 Nausea with vomiting, unspecified (principal); T50.995A Adverse effect of other drugs, medicaments and biological substances, initial encounter; F32.A Depression, unspecified; F41.1 Generalized anxiety disorder; F43.0 Acute stress reaction
CPT/HCPCS: 99283

== ENCOUNTER 2022-10-05 19:09 | Emergency (ER) | payer MEDICAID, SELFPAY ==
[2022-10-05 19:35] VITALS: BP 125/52; PULSE 84; RESP 18; TEMP 37; O2SAT 99
--- NOTE | 2022-10-05 19:45 | RT.EKG_ITS ---
APPROVED REPORT Exam: Resting ECG Reason for Exam: dizziness Patient Location: E HR:67 bpm ECG Measurements Heart Rate 67 AXIS NJ 137 P 35 QRSd 90 QRS 32 QT 392 T 18 QTc 413 Conclusion Sinus rhythm...normal P axis, V-rate 60- 99 Abnormal Q suggests anterior infarct...Q >30mS in V2-V4. Sinus. Normal axis. No STEMI. No significant change compared to previous. I have reviewed and interpreted ECG and agree with software generated interpretation.
--- NOTE | 2022-10-05 19:56 | W.ED.GENAD ---
Discharge Plan Disposition Patient Disposition: Home Condition: Improving Discharge Details Clinical Impression: Dizziness, Nausea and vomiting, Constipation Primary Care Provider: Niyah Serna ED Provider: Margoth Donohue Home Meds and New Rx's Prescriptions: Continued melatonin 3 mg tablet 3 - 5 mg PO HS Rx Instructions: 1-2 tabs (3-6 mg) po at hs albuterol sulfate 90 mcg/actuation HFA aerosol inhaler 1 inh IH ONCE loratadine 10 mg capsule 10 mg PO DAILY labetalol 100 mg tablet 50 mg PO DAILY Digestive Advantage Prob Gummy 250 million cell tablet,chewable 250 cell PO DAILY lidocaine 3.5 % adhesive patch,medicated 1 patch topical DIRECTED medroxyprogesterone [Depo-Provera] 150 mg/mL syringe 150 mg IM every 3 months Qty: 1 5RF Rx Instructions: bring syringe to [facility] for administration. quetiapine [Seroquel] 25 mg tablet 25 mg PO BID fluoxetine 10 mg capsule 20 mg PO DAILY epinephrine 0.3 mg/0.3 mL auto-injector 0.3 ml SC ONCE PRN (Reason: anaphylaxis) Qty: 2 0RF Rx Instructions: as a single dose; may repeat once promethazine 25 mg tablet 25 mg PO Q6H PRN (Reason: nausea and vomiting) Qty: 10 0RF acetaminophen 500 mg Tablet 1,000 mg PO PRN PRN clonidine HCl 0.2 mg tablet 1 tab PO HS Label Comments: TAKE ONE TABLET BY MOUTH AT BEDTIME naproxen sodium 220 mg Tablet 220 mg PO PRN PRN Discharge Instructions Instructions: Constipation (ED), Acute Nausea and Vomiting (ED), Dizziness (ED) Additional Instructions: Your blood tests and CT scan imaging today are reassuring and show no evidence of acute concerning or significant findings. Drink plenty of fluids and get plenty of rest. Alternate tylenol and naproxen as needed and directed for pain. Follow-up with your primary care doctor in 1 week. Return to the emergency department with any worsening or new concerning symptoms. Discharge Data Discharge Date/Time-TO BE ENTERED AT DEPARTURE: 10/05/22 22:45 Discharge Physician: Margoth Donohue Medical Decision Making 1942 -- 27-year-old female with multiple psychiatric diagnoses including anxiety, PTSD, ADHD, multiple previous visits for suicidal ideation, in addition to obesity, hypertension, developmental delay presents for lightheadedness and nausea and vomiting. Of note, this is the patient's 26th visit to the ED and 9 months. This is also the seventh visit in the last 2 weeks to the emergency department. She was seen here 4 times within a 24-hour period 2 days ago for anxiety, nausea and vomiting. Vitals within normal limits. Patient appears comfortable and nontoxic. Her abdomen is soft and minimally diffusely tender throughout. Will place an IV, obtain screening labs, urine test, CT chest abdomen and pelvis as she recently had COVID and with complaint of dizziness to rule out PE, small bowel obstruction or other acute process. We will give a dose of IV Toradol as she tolerates naproxen and a dose of IV Zofran for nausea in addition to bolus IV fluids and reassess. 2230 --labs and imaging reviewed. White blood cell count 12 which is consistent with her usual baseline. Normal electrolytes. CT chest abdomen pelvis negative for acute findings. Prior to my reassessment of patient, nursing reported that patient found a ride home and eloped from the emergency department. Nursing was able to bring patient back to the ED from the waiting room for reassessment and she states she felt better and wanted to leave. She is advised to increase fluids and rest. Advised to follow up with the primary care doctor for re-evaluation. Usual and customary return precautions given prior to discharge. Medical Records Medical records reviewed: Yes I reviewed the patient's medical records. Imaging Data Radiologic Study: Radiologist's impression: CTA Chest With Contrast CTA Abdomen With Contrast Exam date and time: 10/05/2022 9:01 PM Age: 27 years old Clinical indication: Other: Lightheadedness, nausea, abd pain, recent covid, R/O pe, sbo TECHNIQUE: Imaging protocol: Computed tomographic angiography of the chest with contrast. Computed tomographic angiography of the abdomen with contrast. 3D rendering (Not supervised by radiologist): MIP and/or 3D reconstructed images were created by the technologist. Radiation optimization: All CT scans at this facility use at least one of these dose optimization techniques: automated exposure control; mA and/or kV adjustment per patient size (includes targeted exams where dose is matched to clinical indication); or iterative reconstruction. Contrast material: OMNIPAQUE 350; Contrast volume: 100 ml; Contrast route: INTRAVENOUS (IV);? COMPARISON: CT ABDOMEN PELVIS WO 09/15/2022 8:05 PM FINDINGS: VASCULATURE: Pulmonary arteries: No filling defects within the pulmonary arteries are identified to suggest pulmonary embolism. Aorta: No aortic aneurysm. No aortic dissection. Celiac trunk and mesenteric arteries: No occlusion or significant stenosis. Renal arteries: No occlusion or significant stenosis. CHEST: Lungs: There is mild central peribronchial thickening. There is no bronchiectasis or bronchiolectasis. No pulmonary parenchymal airspace opacities are identified. Pleural spaces: There are no pleural effusions present. There is no evidence of pneumothorax. Heart: Heart size is near the upper limits of normal. There is no pericardial effusion. There is no coronary artery calcification. Mediastinal space: There is a small amount of residual thymic tissue within the anterior mediastinum. ABDOMEN AND PELVIS: Liver: No mass. Gallbladder and bile ducts: The gallbladder is contracted and is not well evaluated, but there is no evidence for acute gallbladder inflammation. No gallstones are identified. There is no biliary ductal dilatation. Pancreas: Unremarkable. No mass. No ductal dilation. Spleen: The spleen has a length of 12.5 cm consistent with borderline splenomegaly. Adrenal glands: Unremarkable. No mass. Kidneys and ureters: No renal or ureteral stones are identified. There is no hydronephrosis or hydroureter. Stomach and bowel: There is no evidence of small or large bowel inflammation. There is no evidence for bowel obstruction. Intraperitoneal space: There is no evidence of free intraperitoneal fluid. There is no free intraperitoneal air. Urinary bladder: No bladder stones are identified. Lymph nodes: Again noted are mildly enlarged small bowel mesenteric lymph nodes measuring up to 1.1 cm, stable since prior study, likely reactive. Bones/joints: Unremarkable. No acute fracture. Soft tissues: Unremarkable. IMPRESSION: 1. No pulmonary embolism identified. 2. Mild central peribronchial thickening could reflect bronchitis. Recommend clinical correlation. 3. No acute process within the abdomen or pelvis. 4. Mild adenopathy within the small bowel mesentery, unchanged from prior study, suggesting mild mesenteric adenitis. Lab Data Lab results reviewed: Yes I reviewed the patient's lab results. Labs: Laboratory Tests Range/Units 10/05/22 10/05/22 20:10 20:10 WBC (4.4-10.8) 10^3/uL 12.41 H RBC (3.93-5.22) 10^6/uL 4.83 Hgb (11.2-15.7) g/dL 11.6 D Hct (36.0-46.0) % 37.0 MCV (80-95) fL 77 L MCH (27.0-33.0) pg 24.0 L MCHC (32.0-36.0) % 31.4 L RDW (11.7-14.6) % 15.4 H Plt Count (130-400) 10^3/uL 241 MPV (8.0-11.0) fL Immature Gran % 0.3 Neutrophils % 68.2 Lymphocytes % 22.1 Monocytes % 7.6 Eosinophils % 1.3 Basophils % 0.5 Nucleated RBC % (0.0-0.3) % 0.0 Absolute Neutrophils (1.2-6.7) 10^3/uL 8.46 H Absolute Lymphocytes (1.2-3.4) 10^3/uL 2.74 Absolute Monocytes (0.1-0.8) 10^3/uL 0.94 H Absolute Eosinophils (0.0-0.7) 10^3/uL 0.16 Absolute Basophils (0.0-0.2) 10^3/uL 0.06 Sodium (136-145) mmol/L 137 Potassium (3.5-5.1) mmol/L 3.9 Chloride (98-107) mmol/L 103 Carbon Dioxide (21.0-32.0) mmol/L 21.1 Anion Gap (3-11) mmol/L 12.9 H BUN (7-18) mg/dL 13 Creatinine (0.55-1.02) mg/dL 0.8 Est GFR (CKD-EPI 2020) (mL/min/1.73m2) 104.80 Glucose (74-106) mg/dL 115 H Calcium (8.5-10.1) mg/dL 9.0 Total Bilirubin (0.2-1.0) mg/dL 0.2 AST (15-37) U/L 17 ALT (14-59) U/L 21 Alkaline Phosphatase (46-116) U/L 86 Total Protein (6.4-8.2) g/dL 6.8 Albumin (3.4-5.0) g/dL 3.9 ECG Data Attestation: I personally reviewed and interpreted this ECG (s) as follows: Interpretation: rate of 67, sinus, normal axis, no stemi. Sign Out No HPI General Mode of arrival: ambulatory. Date/Time Provider Initiated Documentation: 10/05/22 19:54. Limitations to Documentation: no limitations. Information obtained by: patient. HPI Narrative: Patient is a 27-year-old female well-known to the emergency department with multiple frequent visits with a history of anxiety, depression, ADHD, PTSD, hypertension, obesity and developmental delay who presents with a complaint of lightheadedness, nausea and vomiting. Of note, this is patient's 26 visit to the emergency department in 9 months. She was also seen here 4 times within a 24-hour period 2 days ago and has been seen here 7 times this month. She states she has had lightheadedness that is worse upon standing. She states she has had nausea and occasional bilious vomiting. She last vomited 2 days ago. She was able to eat a sandwich today. She states her last bowel movement was 2 days ago which is unusual for her as she usually goes daily or every other day. She also admits to diffuse crampy abdominal pain. She denies any fever, chest pain, shortness of breath, urinary symptoms or diarrhea. Related Data Home Medications Medication Instructions Recorded Confirmed acetaminophen 500 mg tablet 1,000 mg PO PRN PRN 10/30/19 10/03/22 albuterol sulfate 90 mcg/actuation 1 inh inhalation ONCE 05/13/20 10/03/22 aerosol inhaler loratadine 10 mg capsule 10 mg PO DAILY 07/31/20 10/03/22 medroxyprogesterone 150 mg/mL 150 mg IM every 3 months #1 SYRG 09/21/21 10/03/22 intramuscular syringe (Depo-Provera) Bacillus coagulans 250 million 250 cell PO DAILY 09/25/21 10/03/22 cell chewable tablet (Digestive Advantage Probiotic Gummy) labetalol 100 mg tablet 50 mg PO DAILY 09/25/21 10/03/22 melatonin 3 mg tablet 3 - 5 mg PO HS 09/25/21 10/03/22 fluoxetine 10 mg capsule 20 mg PO DAILY 01/29/22 10/03/22 quetiapine 25 mg tablet (Seroquel) 25 mg PO BID 01/29/22 10/03/22 lidocaine 3.5 % topical patch 1 patch topical DIRECTED 05/17/22 10/03/22 epinephrine 0.3 mg/0.3 mL 0.3 ml subcut ONCE PRN anaphylaxis 08/14/22 10/03/22 injection, auto-injector #2 ea clonidine HCl 0.2 mg tablet 1 tab PO HS 10/03/22 10/03/22 naproxen sodium 220 mg tablet 220 mg PO PRN PRN 10/03/22 10/03/22 promethazine 25 mg tablet 25 mg PO Q6H PRN nausea and 10/04/22 vomiting #10 tabs Previous Rx's Medication Instructions Recorded medroxyprogesterone 150 mg/mL 150 mg IM every 3 months #1 SYRG 09/21/21 intramuscular syringe (Depo-Provera) epinephrine 0.3 mg/0.3 mL 0.3 ml subcut ONCE PRN anaphylaxis 08/14/22 injection, auto-injector #2 ea promethazine 25 mg tablet 25 mg PO Q6H PRN nausea and 10/04/22 vomiting #10 tabs Allergies Allergy/AdvReac Type Severity Reaction Status Date / Time fluticasone Allergy Severe unknown Verified 10/03/22 19:43 [From Flovent HFA] lisinopril Allergy Intermediate unknown Verified 10/03/22 19:43 paroxetine HCl [From Paxil] Allergy Intermediate Hives Verified 10/03/22 19:43 polyethylene glycol 3350 Allergy Intermediate unknown Verified 10/03/22 19:43 [From Miralax] risperidone [From Risperdal] Allergy Intermediate Hives Verified 10/03/22 19:43 NSAIDS (Non-Steroidal Allergy Due to Verified 10/03/22 19:43 Anti-Inflamma prior kidney damage acetaminophen AdvReac Nausea Unverified 10/03/22 19:43 amoxicillin AdvReac Nausea Verified 10/03/22 19:43 seafood Allergy Intermediate unknown Uncoded 10/03/22 19:43 enviornmental Allergy Mild sneezing Uncoded 10/03/22 19:43 General Stated Complaint: Dizzy/Sync MARY KAY: 3 Review of Systems All systems reviewed & are unremarkable except as noted in HPI and below Constitutional Constitutional: Reports as per HPI, Denies chills and Denies fever(s) Eyes Eyes: Denies blurry vision ENT Ears, Nose, Mouth, and Throat: Reports dizziness, Denies sore throat and Denies throat swelling Cardiovascular Cardiovascular: Denies chest pain and Denies dyspnea Respiratory Respiratory: Denies cough and Denies dyspnea Gastrointestinal Gastrointestinal: Denies abdominal pain, Denies diarrhea, Reports nausea and Reports vomiting Genitourinary Genitourinary: Denies hematuria and Denies dysuria Musculoskeletal Musculoskeletal: Denies back pain and Denies numbness Integumentary/Breasts Skin/Breast: Denies lesions and Denies rash Neurologic Neurologic: Reports dizziness, Denies localized weakness and Denies numbness Allergic/Immunologic Allergic/Immunologic: Denies throat swelling PFSH All Active Problems (Updated 10/05/22 @ 22:55 by Margoth Donohue DO) COVID (Acute) COVID (Acute) Abdominal pain (Acute) Vaginal discharge (Acute) Female dyspareunia (Acute) UTI (urinary tract infection) (Acute) Blood in urine (Acute) Abdominal pain (Acute) Dysuria (Acute) Depression (Chronic) Situational anxiety (Acute) Vomiting (Acute) Drug-induced nausea and vomiting (Acute) Dizziness (Acute) Nausea and vomiting (Acute) Constipation (Acute) Hyperplastic colon polyp (Acute) Rectal polyp (Acute) Chronic kidney disease, stage 1 (Chronic 12/31/16) from renal infection as a child elevated BP resulting 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 Patient is using the Depo-Provera for menstrual cycle control. Depression (12/31/16) Drug abuse, episodic use Dysuria Family history of colon cancer Fatigue Generalized headaches (12/31/16) Hemolytic uremic syndrome History of allergic reaction History of mastoiditis Hypertrophy of tonsils and adenoids Illiteracy Per caregiver she is able to read and write, she needs assitance with comprehension of more complex words. Jaw pain Mesenteric lymphadenitis Otalgia, right ear Overactive bladder (02/09/18) Pain, dental PTSD (post-traumatic stress disorder) RBC microcytosis Steatosis of liver SASHA (stress urinary incontinence, female) Suicidal ideation TMJ tenderness, left Vitamin D deficiency Surgical History History of colonoscopy (~06/2022) History of kidney surgery Hx of tooth extraction Social History Smoking/Tobacco Use Status: Current every day Tobacco Type: e-cigarettes Smoking risk assessment performed?: Yes Alcohol Intake: former Drug use: Current Sobriety Substance use type: marijuana Sexually active: Yes (female partner only now(May 2022). Has never had intercourse) Do you think of yourself as: lesbian/cash/homosexual What is your relationship status?: never Panel score (0-1 are the most socially isolated patients): 0 Do you feel safe at home: Yes Do you feel safe in your relationship?: Yes Additional Social history: lives alone - states she feels sad when she is alone Female Reproductive History Menstrual control method: progesterone injection History History 0 Para Hx # Term Pregnancies Multiple births Hx # Pregnancies Ectopic pregnancies AB induced Hx Number of Living Children AB spontaneous Exam Const General: cooperative, healthy appearing and no acute distress HENMT Head: normal to inspection Face and sinus: normal facial exam Eyes General: appearance normal, both eyes and all related structures Pupils: PERRL EOM: EOM intact bilaterally Neck Neck: normal visual inspection and No submandibular swelling Lymphatic: no lymphadenopathy noted Chest Chest: normal inspection of the chest and no tenderness Resp Effort & Inspection: normal respiratory effort and able to speak in complete sentences Auscultation: clear to auscultation bilaterally Cardio Rate: regular rate Rhythm: regular rhythm GI Inspection: normal to inspection Palpation: soft, not firm, not rigid and tender (mild, diffuse, throughout) Auscultation: hypoactive bowel sounds Back/Spine/Pelvis Thoracic/Lumbar Spine: thoracic and lumbar spine normal to inspection Pelvis: no pain with anterior-posterior compression Skin General skin exam: no rashes or lesions noted Neuro General: patient alert, patient awake and patient oriented x3 Cognition: normal cognition Speech: speech normal Motor: muscle tone normal throughout Sensory Exam: no sensory deficits noted Extrem General: normal to inspection, full ROM, capillary refill normal, no calf tenderness bilaterally and no edema Psych Appearance: grossly normal Mental Status: mental status grossly normal Speech and Movement: speech and movement normal Affect: normal affect Course Vital Signs Vital signs: Vital Signs Temperature 98.6 F 10/05/22 19:35 Pulse 84 10/05/22 19:35 Respiratory Rate 18 10/05/22 19:35 Blood Pressure 125/52 L 10/05/22 19:35 Pulse Oximetry 99 10/05/22 19:35 Temperature 98.6 F 10/05/22 19:35 Temperature Source Tympanic 10/05/22 19:35 Pulse 84 10/05/22 19:35 Respiratory Rate 18 10/05/22 19:35 Respiratory Effort 10/05/22 19:39 Blood Pressure 125/52 L 10/05/22 19:35 Pulse Oximetry 99 10/05/22 19:35 Oxygen Delivery Method Room Air 10/05/22 19:35 Oxygen Flow Rate 0 10/05/22 19:35 Pain Level 5 10/05/22 19:35
--- NOTE | 2022-10-05 20:15 | DI.CT_ITS ---
Exam(s) CT CHEST PE ABD PELVIS W EXAM: CT CHEST PE ABD PELVIS W CLINICAL HISTORY: lightheadedness, nausea, abd pain. TECHNIQUE: Imaging Protocol: Axial CT angiography was performed with multi-slice acquisition and m ulti-planar and/or 3D reconstructions. CONTRAST MATERIAL: Intravenous: Omnipaque 350 Contrast volume:100 ml Oral: None COMPARISON: CT CT ABDOMEN PELVIS WO from 09/15/2022 FINDINGS: CHEST: PULMONARY ARTERIES: There are no intra-arterial filling defects to suggest the presence of acute pulm onary emboli. LUNGS: There is no evidence of pulmonary infarction. There are no pleural effusions. MEDIASTINUM: There is no hilar nor mediastinal adenopathy. Visualized thyroid unremarkable. CARDIAC: Heart size is normal. There is no pericardial effusion. There is no significant shift of t he interventricular septum.Caliber of the thoracic aorta is within normal limits. OSSEOUS: No significant osseous lesions.. ABDOMEN: There is no ascites. LIVER: There are no focal hepatic lesions nor dilatation of intrahepatic ducts. GALLBLADDER/BILIARY: No obvious gallbladder pathology. CBD is not dilated. PANCREAS: No evidence of pancreatic mass nor dilatation of the pancreatic duct. SPLEEN: Spleen is not enlarged. There are no intrasplenic lesions. Splenic and portal veins are mac nt. ADRENALS: There are no significant adrenal masses. KIDNEYS:No cysts evident. No calculi nor hydronephrosis. No solid renal masses. ABDOMINAL AORTA: Abdominal aorta is not enlarged. LYMPH NODES: There are multiple slightly enlarged lymph nodes in the retroperitoneum as well as in th e mesentery. There is no bulky para-aortic adenopathy. No omental cake. Shoddy lymph nodes are not ed in both inguinal regions. ABDOMINAL WALL/GI: No evidence of significant anterior abdominal wall hernia. No bowel obstruction. PELVIS: LYMPH NODES: There is no adenopathy around the aortic bifurcation nor along the iliac chains. Shoddy lymph nodes are noted in both inguinal regions. GI: No evidence of appendicitis.No evidence of sigmoid diverticulitis. URINARY BLADDER: No calculi nor masses evident REPRODUCTIVE: Uterus and ovaries appear age-appropriate. There are no extraovarian adnexal masses an d no free fluid in the pelvis. OSSEOUS: No significant osseous lesions. IMPRESSION: 1. No evidence of acute pulmonary emboli nor pulmonary infarction. No infiltrates nor ominous nodule s. 2. There are no pleural effusions.No intrathoracic adenopathy. 3. There are multiple mildly enlarged lymph nodes noted in both the retroperitoneum and mesentery, no t associated with splenomegaly, ascites, omental cake, nor prominent mesenteric streaking. Most prob ably represents mesenteric adenitis; less likely lymphoma in this young age group. Nevertheless, req uires appropriate follow-up. 4. Shoddy lymph nodes are noted in both inguinal and both axillary regions. No supraclavicular adeno julieta. 5. RADIATION DOSE DELIVERED: 1,943.31mGy.cm Total DLP DATA REPOSITORY: All CT scans at this facility are submitted to the National Radiology Data Registry (NRDR) Dose Index Registry (DIR) with the [employer] (ACR). RADIATION OPTIMIZATION: All CT scans at this facility use at least one of these dose optimization te chniques: automated exposure control; mA and/or kV adjustment per patient size (includes targeted exa ms where dose is matched to clinical indication); or iterative reconstruction.
[2022-10-05 20:16] LABS: Abs Immature Grans 0.04 10^3/uL (0.0-0.06); Absolute Basophil Count 0.06 10^3/uL (0.0-0.2); Absolute Eosinophil Count 0.16 10^3/uL (0.0-0.7); Absolute Lymphocyte Count 2.74 10^3/uL (1.2-3.4); Absolute Monocyte Count 0.94 10^3/uL (0.1-0.8); Basophils % 0.5; Eosinophils % 1.3; HGB 11.6 g/dL (11.2-15.7); Immature Grans % 0.3; Lymphocytes % 22.1; MCHC 31.4 % (32.0-36.0); MCV 77 fL (80-95); Monocytes % 7.6; Neutrophils % 68.2; Platelet Count 241 10^3/uL (130-400); RBC 4.83 10^6/uL (3.93-5.22); RDW 15.4 % (11.7-14.6); RDW-SD 42.5 fL; WBC 12.41 10^3/uL (4.4-10.8)
[2022-10-05 20:18] LABS: Absolute Neutrophil Count 8.46 10^3/uL (1.2-6.7)
[2022-10-05] MEDS: Ketorolac 30 MG/ML VIAL IVP (20:24)
[2022-10-05] MEDS: Normal Saline 1,000 ML 1000 ML IV (20:24)
[2022-10-05] MEDS: Ondansetron 4 MG/2 ML VIAL IVP (20:24)
[2022-10-05 20:45] LABS: ALT 21 U/L (14-59); AST 17 U/L (15-37); Albumin 3.9 g/dL (3.4-5.0); Alkaline Phosphatase 86 U/L (46-116); Anion Gap 12.9 mmol/L (3-11); BUN 13 mg/dL (7-18); Bilirubin, Total 0.2 mg/dL (0.2-1.0); CO2 21.1 mmol/L (21.0-32.0); CREATININE 0.8 mg/dL (0.55-1.02); Chloride 103 mmol/L (98-107); Glucose 115 mg/dL (74-106); Potassium 3.9 mmol/L (3.5-5.1); Sodium 137 mmol/L (136-145); Total Protein 6.8 g/dL (6.4-8.2)
--- NOTE | 2022-10-05 21:42 | DI.VRAD_ITS ---
PROCEDURE INFORMATION: Exam: CTA Chest With Contrast CTA Abdomen With Contrast Exam date and time: 10/05/2022 9:01 PM Age: 27 years old Clinical indication: Other: Lightheadedness, nausea, abd pain, recent covid, R/O pe, sbo TECHNIQUE: Imaging protocol: Computed tomographic angiography of the chest with contrast. Computed tomographic angiography of the abdomen with contrast. 3D rendering (Not supervised by radiologist): MIP and/or 3D reconstructed images were created by the technologist. Radiation optimization: All CT scans at this facility use at least one of these dose optimization techniques: automated exposure control; mA and/or kV adjustment per patient size (includes targeted exams where dose is matched to clinical indication); or iterative reconstruction. Contrast material: OMNIPAQUE 350; Contrast volume: 100 ml; Contrast route: INTRAVENOUS (IV); COMPARISON: CT ABDOMEN PELVIS WO 09/15/2022 8:05 PM FINDINGS: VASCULATURE: Pulmonary arteries: No filling defects within the pulmonary arteries are identified to suggest pulmonary embolism. Aorta: No aortic aneurysm. No aortic dissection. Celiac trunk and mesenteric arteries: No occlusion or significant stenosis. Renal arteries: No occlusion or significant stenosis. CHEST: Lungs: There is mild central peribronchial thickening. There is no bronchiectasis or bronchiolectasis. No pulmonary parenchymal airspace opacities are identified. Pleural spaces: There are no pleural effusions present. There is no evidence of pneumothorax. Heart: Heart size is near the upper limits of normal. There is no pericardial effusion. There is no coronary artery calcification. Mediastinal space: There is a small amount of residual thymic tissue within the anterior mediastinum. ABDOMEN AND PELVIS: Liver: No mass. Gallbladder and bile ducts: The gallbladder is contracted and is not well evaluated, but there is no evidence for acute gallbladder inflammation. No gallstones are identified. There is no biliary ductal dilatation. Pancreas: Unremarkable. No mass. No ductal dilation. Spleen: The spleen has a length of 12.5 cm consistent with borderline splenomegaly. Adrenal glands: Unremarkable. No mass. Kidneys and ureters: No renal or ureteral stones are identified. There is no hydronephrosis or hydroureter. Stomach and bowel: There is no evidence of small or large bowel inflammation. There is no evidence for bowel obstruction. Intraperitoneal space: There is no evidence of free intraperitoneal fluid. There is no free intraperitoneal air. Urinary bladder: No bladder stones are identified. Lymph nodes: Again noted are mildly enlarged small bowel mesenteric lymph nodes measuring up to 1.1 cm, stable since prior study, likely reactive. Bones/joints: Unremarkable. No acute fracture. Soft tissues: Unremarkable. IMPRESSION: 1. No pulmonary embolism identified. 2. Mild central peribronchial thickening could reflect bronchitis. Recommend clinical correlation. 3. No acute process within the abdomen or pelvis. 4. Mild adenopathy within the small bowel mesentery, unchanged from prior study, suggesting mild mesenteric adenitis. Dictated and Authenticated by: Luis Armando Randolph MD. Ordering:KASEY Justin MD
--- NOTE | 2022-10-07 17:04 | PDOC.MHCN ---
Date of service: 10/07/22 Time of Service: 16:48 PHQ-9 Over the last 2 weeks, how often have you been bothered by any of the following problems? 1. Little interest or pleasure in doing things: nearly every day 2. Feeling down, depressed, or hopeless: several days 3. Trouble falling or staying asleep, or sleeping too much: more than half the days 4. Feeling tired or having little energy: nearly every day 5. Poor appetite or overeating: nearly every day 6. Feeling bad about yourself - or that you are a failure or have let yourself and your family down: nearly every day 7. Trouble concentrating on things, such as reading the newspaper or watching television: more than half the days 8. Moving or speaking so slowly that other people could have noticed? - Or the opposite - being so fidgety or restless that you have been moving around a lot more than usual: nearly every day 9. Thoughts that you would be better off or of hurting yourself in some way: nearly every day Total score: 23 If you checked off any problems, how difficult have these problems made it for you to do your work, take care of things at home, or get along with other people?: extremely difficult PHQ-9 Results: Positive Source: Developed by Drs. Alejandro Ward, Melva Mancilla, Dave Sutton and colleagues, with an educational marcio from [employer]. Suicide Severity Rate CSSRS Have you wished you were or wished you could go to sleep and not wake up?: Yes Have you actually had any thoughts of killing yourself?: Yes CSSRS2 Have you been thinking about how you might do this?: Yes Have you had these thoughts and had some intention of acting on them?: Yes Have you started to work out or worked out the details of how to kill yourself? Do you intend to carry out this plan?: No CSSRS3 Have you ever done anything, started to do anything or prepared to do anything to end your life?: Yes CSSRS4 Was this within the past three months?: Yes Screening Score Total Score: 8 Screening: Positive Mental Health Emergency Note Release [facility] release signed:: Yes Reason for Visit Shannon was seen by this clinician at the [facility] after endorsing suicidal ideation to her doctor. Shannon will be coming to the emergency room to seek voluntary treatment after the results of this assessment. In the last 2 weeks has the pt presented for ES prior to today?: Yes, presented at [facility] ED Client Information Client is: [facility] Well Housed: Yes Non Suicidal Self Injury Current: No History: No Safety Risk/Harm to Self or Others Current Ideation to Harm Self or Others: Yes to self. (Shannon reports she thinks about suicide daily. Her plan would be to hang herself or cut herself.) Intent: yes, has intent. Plan: yes,has a plan. History of suicide attempt: yes,history of suicide attempt reported. Details of previous suicide attempt: Client reports she took pills earlier this week and had to get charcoal at the hospital. Shannon has a history of suicide attempts that were not disclosed to this story writer. Risk: Does risk to harm exist?: No Risk: N/A Duty to warn indicated: No Asssessment/Mental Status Appearance: Disheveled Attitude: Cooperative Behavior: Unremarkable Speech: Normal Affect: Cogruent with mood Mood: Sad, Depressed and Anxious Thought process: Goal directed Hallucinations: No evidence Delusions: No evidence Attention: Unremarkable Perception: Not impaired Orientation: Fully orientated Memory: Intact Insight: Fair Judgement: Fair Neurovegetative Symptoms Sleep: Decrease (Shannon reports she has not slept in three days.) Appetitie: Decrease (Shannon reports eating one meal today.) Interests: Decrease Energy: Decrease Libido: Not applicable Substance Use: Do you use nicotine?: Yes Have you used substances in the last 7 days?: No Additional Issues: Assaultive/Threatening Behavior: No Medical Concerns: No Client engaged in active self harm w/weapon: No Threatening to run away: No Child reported abuse/neglect: No Voluntarily presenting for services: Yes Domestic violence is a concern: No Extreme Psychosis or extreme behavior is present: No Impression Shannon endorsed suicidal ideation to her primary care doctor earlier today. This clinician screened Shannon as she was still endorsing suicidal ideation. Shannon reports she wants to and she thinks about suicide everyday. Shannon recently had a safety plan that was developed by emergency services, idds, and Shanonn but Shannon is unable to keep herself safe at this time. Due to Shannon's constant ideation, high screening tool scores, and inability to keep herself safe Shannon is a client in need of inpatient treatment. Plan/Disposition Recommended Disposition: Hospitalization (Referrals will be sent once [facility] recieves the labs and additional information.) No. Plan: Shannon will wait at [facility] until voluntary treatment can be secured. Person reported agreement to plan: Yes Reports/communication Outcome discussed with: ED/Personnel (Talked to Lorie prior to Shannon's arrival.)
--- NOTE | 2022-10-08 13:12 | MHPN_ITS ---
Date of service: 10/08/22 Time of Service: 08:48 Mental Health Emergency Note Release [facility] release signed:: Yes Reason for Visit Shannon is currently waiting for voluntary treatment at [facility] due to her increased suicidal ideations. This senior grant writer screened Shannon via Zoom due to staffing at [facility]. In the last 2 weeks has the pt presented for ES prior to today?: Yes, presented at [facility] ED Client Information Client is: IDDS Well Housed: Yes Non Suicidal Self Injury Current: Yes, Shannon stated she was having thoughts of cutting herself and if she went home she would cut herself. History: yes, Shannon disclosed today that she has a history of self cutting. Safety Risk/Harm to Self or Others Current Ideation to Harm Self or Others: Yes to self. (Shannon reports fleeting suicidal ideation at this time.) Intent: no, has no intent. Plan: yes,has a plan. History of suicide attempt: yes,history of suicide attempt reported. Details of previous suicide attempt: Shannon reports her last attempt was when she was given charcoal in the emergency room a few days ago due to taking too much medication. Risk: Does risk to harm exist?: No Risk: N/A Duty to warn indicated: No Asssessment/Mental Status Appearance: Unremarkable Attitude: Cooperative Behavior: Unremarkable Speech: Normal Affect: Cogruent with mood Mood: Stressed and Anxious Thought process: Unremarkable Hallucinations: No evidence Delusions: No evidence Attention: Unremarkable Perception: Not impaired Orientation: Fully orientated Memory: Intact Insight: Fair Judgement: Fair Neurovegetative Symptoms Sleep: Increase (Shannon reports she got a good night of sleep last night.) Appetitie: No change Interests: No change Energy: No change Libido: Not applicable Substance Use: Do you use nicotine?: Yes Have you used substances in the last 7 days?: No Additional Issues: Assaultive/Threatening Behavior: No Medical Concerns: No Client engaged in active self harm w/weapon: No Threatening to run away: No Child reported abuse/neglect: No Voluntarily presenting for services: Yes Domestic violence is a concern: No Extreme Psychosis or extreme behavior is present: No Impression Shannon is waiting for voluntary treatment at [facility]. This senior grant writer reassessed Shannon via Zoom. Shannon reports having fleeting thoughts of suicide but she has only been thinking of cutting herself. Shannon reports if she were to go home she would cut herself. Shannon reports her mood as all over the place. Shannon reports she has been thinking about her animals and coloring while in the hospital. Shannon asked about visitors and was told [facility] and ES would collaborate on if she could have visitors. Shannon reports she is upset she is still in the emergency room; this senior grant writer reminded her of the conversation we had yesterday about waiting for placement. Shannon reports she will continue to wait for treatment due to her wanting to be better. Shannon is still in need of treatment due to her unstable thought process and increased suicidal ideation. Plan/Disposition Recommended Disposition: Hospitalization facilities contacted. Plan: Shannon will wait at [facility] until voluntary treatment is secured. Person reported agreement to plan: Yes Facilities contacted if Applicable [facility] Not accepted, No bed available [facility] Not accepted, No bed available [facility] Not accepted, Only accepting in house referrals, [facility] Not accepted, No bed available Reports/communication Outcome discussed with: ED/Personnel
== END 2022-10-05 22:45 | disposition home or self-care (01) ==
PROVIDERS: Emergency Provider Physician Assistant; PCP Nurse Practitioner Family
DX: R42 Dizziness and giddiness (principal); R11.2 Nausea with vomiting, unspecified; K59.00 Constipation, unspecified; R10.9 Unspecified abdominal pain
CPT/HCPCS: 36415; 71275; 74177; 80053; 93005; 96361; 96374; 96375; 99284; 85025; 93010; J1885; J2405

== ENCOUNTER 2022-10-07 17:42 | Emergency (ER) | payer MEDICAID, SELFPAY ==
[2022-10-07 18:00] VITALS: BP 144/86; PULSE 81; RESP 18; TEMP 37; O2SAT 97
[2022-10-07 18:30] LABS: Bilirubin Negative (Negative); Blood Negative (Negative); Clarity Clear (Clear); Glucose Negative (Negative); Ketones Negative (Negative); Leukocyte Esterase Negative (Negative); Nitrite Negative (Negative); Specific Gravity >= 1.030 (1.005-1.025); Urobilinogen 0.2 EU/dL (Up TO 0.2)
[2022-10-07 18:32] LABS: Bacteria Rare HPF (Negative); C & S Indicated? No; Casts Negative LPF (Negative); Crystals Negative HPF (Negative); Epithelial Cells Few HPF (Negative); Mucus Trace (Negative); RBC Negative HPF (0-2); WBC 0-2 HPF (0-5)
--- NOTE | 2022-10-07 18:45 | W.ED.GENAD ---
Discharge Plan Disposition Condition: Stable Discharge Details Chief Complaint: PsychEval Clinical Impression: Depression Primary Care Provider: Niyah Serna ED Provider: Alejandro Sepulveda [place] Meds and New Rx's Prescriptions: No Action melatonin 3 mg tablet 3 - 5 mg PO HS Rx Instructions: 1-2 tabs (3-6 mg) po at hs albuterol sulfate 90 mcg/actuation HFA aerosol inhaler 1 inh IH ONCE loratadine 10 mg capsule 10 mg PO DAILY labetalol 100 mg tablet 50 mg PO DAILY Digestive Advantage Prob Gummy 250 million cell tablet,chewable 250 cell PO DAILY lidocaine 3.5 % adhesive patch,medicated 1 patch topical DIRECTED medroxyprogesterone [Depo-Provera] 150 mg/mL syringe 150 mg IM every 3 months Qty: 1 5RF Rx Instructions: [facility] syringe [facility]. quetiapine [Seroquel] 25 mg tablet 25 mg PO BID fluoxetine 10 mg capsule 20 mg PO DAILY epinephrine 0.3 mg/0.3 mL auto-injector 0.3 ml SC ONCE PRN (Reason: anaphylaxis) Qty: 2 0RF Rx Instructions: as a single dose; may repeat once promethazine 25 mg tablet 25 mg PO Q6H PRN (Reason: nausea and vomiting) Qty: 10 0RF acetaminophen 500 mg Tablet 1,000 mg PO PRN PRN clonidine HCl 0.2 mg tablet 1 tab PO HS Label Comments: TAKE ONE TABLET BY MOUTH AT BEDTIME naproxen sodium 220 mg Tablet 220 mg PO PRN PRN Medical Decision Making <Terra Melendez NP - Last Filed: 10/08/22 23:21> 27-year-old female presents to the ER who is well-known to the department with a chief complaint of suicidal ideation after being seen by her primary care provider today and saying that she would like to hang herself. She reports that she would buy a rope. She presents with a support person named Rosario who has been with her all day and denies that she is taking any extra medications or done anything to harm herself today. Patient reports that she took her normal medications today as prescribed. Patient has been assessed by an EKG as prior to arrival they are seeking voluntary inpatient placement at this time. We will reassess her in the a.m. Patient has ADHD, bipolar 2, episodic drug abuse, PTSD, I did speak with psych liaison with [facility] recommended just to draw some basic labs and have them faxed to the [facility] office they will reassess her in the a.m. and they are actively seeking voluntary placement at this time. Sitter ordered, belongings collected patient placed in the line of sight of nurses station. Patient has remained calm and cooperative at this time. Labs are largely at baseline. Care is to be handed off to ER attending Dr. May pending voluntary inpatient placement. pt signed out to me pending psych placement, currently calm and cooperative without new complaints. Medical Records Medical records reviewed: Yes I reviewed the patient's medical records. Lab Data Lab results reviewed: Yes I reviewed the patient's lab results. Labs: Laboratory Tests Range/Units 10/07/22 10/07/22 10/07/22 18:09 18:09 21:12 WBC (4.4-10.8) 10^3/uL RBC (3.93-5.22) 10^6/uL Hgb (11.2-15.7) g/dL Hct (36.0-46.0) % MCV (80-95) fL MCH (27.0-33.0) pg MCHC (32.0-36.0) % RDW (11.7-14.6) % Plt Count (130-400) 10^3/uL MPV (8.0-11.0) fL Immature Gran % Neutrophils % Lymphocytes % Monocytes % Eosinophils % Basophils % Nucleated RBC % (0.0-0.3) % Absolute Neutrophils (1.2-6.7) 10^3/uL Absolute Lymphocytes (1.2-3.4) 10^3/uL Absolute Monocytes (0.1-0.8) 10^3/uL Absolute Eosinophils (0.0-0.7) 10^3/uL Absolute Basophils (0.0-0.2) 10^3/uL Sodium (136-145) mmol/L 136 Potassium (3.5-5.1) mmol/L 3.4 L Chloride (98-107) mmol/L 101 Carbon Dioxide (21.0-32.0) mmol/L 26.0 Anion Gap (3-11) mmol/L 9.0 BUN (7-18) mg/dL 9 Creatinine (0.55-1.02) mg/dL 0.8 Est GFR (CKD-EPI 2020) (mL/min/1.73m2) 104.80 Glucose (74-106) mg/dL 111 H Calcium (8.5-10.1) mg/dL 9.0 Total Bilirubin (0.2-1.0) mg/dL 0.4 AST (15-37) U/L 10 L ALT (14-59) U/L 20 Alkaline Phosphatase (46-116) U/L 91 Total Protein (6.4-8.2) g/dL 7.8 Albumin (3.4-5.0) g/dL 4.1 Urine Color (Yellow) Yellow Urine Clarity (Clear) Clear Urine pH (5-8) 7.0 Ur Specific [place] (1.005-1.025) >= 1.030 H Urine Protein (Negative) mg/dL 30 H Urine Ketones (Negative) mg/dL Negative Urine Blood (Negative) Negative Urine Nitrite (Negative) Negative Urine Bilirubin (Negative) Negative Urine Urobilinogen (Up TO 0.2) EU/dL 0.2 Ur Leukocyte Esterase (Negative) Negative Urine RBC (0-2) HPF Negative Urine WBC (0-5) HPF 0-2 Ur Epithelial Cells (Negative) HPF Few Urine Crystals (Negative) HPF Negative Urine Bacteria (Negative) HPF Rare Urine Casts (Negative) LPF Negative Urine Mucus (Negative) Trace Ur Culture Indicated? No Urine Glucose (Negative) mg/dL Negative Salicylates (<2.8) mg/dL Urine Opiates Screen (Negative) Negative Acetaminophen (10-30) ug/mL Ur Barbiturates Screen (Negative) Negative Ur Tricyclics Screen (Negative) Negative Ur Amphetamines Screen (Negative) Negative U Benzodiazepines Scrn (Negative) Negative Urine Cocaine Screen (Negative) Negative Ur THC Screen (Negative) Negative Ethyl Alcohol (<10) mg/dL < 3.0 Range/Units 10/07/22 10/07/22 21:12 21:25 WBC (4.4-10.8) 10^3/uL 13.47 H RBC (3.93-5.22) 10^6/uL 5.24 H Hgb (11.2-15.7) g/dL 12.7 Hct (36.0-46.0) % 39.8 MCV (80-95) fL 76 L MCH (27.0-33.0) pg 24.2 L MCHC (32.0-36.0) % 31.9 L RDW (11.7-14.6) % 15.3 H Plt Count (130-400) 10^3/uL 285 MPV (8.0-11.0) fL 12.9 H Immature Gran % 0.4 Neutrophils % 72.7 Lymphocytes % 18.0 Monocytes % 6.9 Eosinophils % 1.6 Basophils % 0.4 Nucleated RBC % (0.0-0.3) % 0.0 Absolute Neutrophils (1.2-6.7) 10^3/uL 9.79 H Absolute Lymphocytes (1.2-3.4) 10^3/uL 2.42 Absolute Monocytes (0.1-0.8) 10^3/uL 0.93 H Absolute Eosinophils (0.0-0.7) 10^3/uL 0.22 Absolute Basophils (0.0-0.2) 10^3/uL 0.05 Sodium (136-145) mmol/L Potassium (3.5-5.1) mmol/L Chloride (98-107) mmol/L Carbon Dioxide (21.0-32.0) mmol/L Anion Gap (3-11) mmol/L BUN (7-18) mg/dL Creatinine (0.55-1.02) mg/dL Est GFR (CKD-EPI 2020) (mL/min/1.73m2) Glucose (74-106) mg/dL Calcium (8.5-10.1) mg/dL Total Bilirubin (0.2-1.0) mg/dL AST (15-37) U/L ALT (14-59) U/L Alkaline Phosphatase (46-116) U/L Total Protein (6.4-8.2) g/dL Albumin (3.4-5.0) g/dL Urine Color (Yellow) Urine Clarity (Clear) Urine pH (5-8) Ur Specific [place] (1.005-1.025) Urine Protein (Negative) mg/dL Urine Ketones (Negative) mg/dL Urine Blood (Negative) Urine Nitrite (Negative) Urine Bilirubin (Negative) Urine Urobilinogen (Up TO 0.2) EU/dL Ur Leukocyte Esterase (Negative) Urine RBC (0-2) HPF Urine WBC (0-5) HPF Ur Epithelial Cells (Negative) HPF Urine Crystals (Negative) HPF Urine Bacteria (Negative) HPF Urine Casts (Negative) LPF Urine Mucus (Negative) Ur Culture Indicated? Urine Glucose (Negative) mg/dL Salicylates (<2.8) mg/dL < 2.8 Urine Opiates Screen (Negative) Acetaminophen (10-30) ug/mL < 2 Ur Barbiturates Screen (Negative) Ur Tricyclics Screen (Negative) Ur Amphetamines Screen (Negative) U Benzodiazepines Scrn (Negative) Urine Cocaine Screen (Negative) Ur THC Screen (Negative) Ethyl Alcohol (<10) mg/dL <Miguel May MD - Last Filed: 10/07/22 23:25> I did speak with psych liaison with [facility] recommended just to draw some basic labs and have them faxed to the [facility] office they will reassess her in the a.m. and they are actively seeking voluntary placement at this time. Sitter ordered, belongings collected patient placed in the line of sight of nurses station. Patient has remained calm and cooperative at this time. Labs are largely at baseline. Care is to be handed off to ER attending Dr. May pending voluntary inpatient placement. pt signed out to me pending psych placement, currently calm and cooperative without new complaints. Sign Out Yes HPI <Terra Melendez NP - Last Filed: 10/08/22 23:21> General Mode of arrival: ambulatory. Date/Time Provider Initiated Documentation: 10/07/22 18:07. Limitations to Documentation: no limitations. Information obtained by: patient, RN notes reviewed and old records reviewed. HPI Narrative: 27-year-old female presents to the ER who is well-known to the department with a chief complaint of suicidal ideation after being seen by her primary care provider today and saying that she would like to hang herself. She reports that she would buy a rope. She presents with a support person named Rosario who has been with her all day and denies that she is taking any extra medications or done anything to harm herself today. Patient reports that she took her normal medications today as prescribed. Patient has been assessed by an EKG as prior to arrival they are seeking voluntary inpatient placement at this time. We will reassess her in the a.m. Patient has ADHD, bipolar 2, episodic drug abuse, PTSD, Related Data Home Medications Medication Instructions Recorded Confirmed acetaminophen 500 mg tablet 1,000 mg PO PRN PRN 10/30/19 10/07/22 albuterol sulfate 90 mcg/actuation 1 inh inhalation ONCE 05/13/20 10/07/22 aerosol inhaler loratadine 10 mg capsule 10 mg PO DAILY 07/31/20 10/07/22 medroxyprogesterone 150 mg/mL 150 mg IM every 3 months #1 SYRG 09/21/21 10/07/22 intramuscular syringe (Depo-Provera) Bacillus coagulans 250 million 250 cell PO DAILY 09/25/21 10/07/22 cell chewable tablet (Digestive Advantage Probiotic Gummy) labetalol 100 mg tablet 50 mg PO DAILY 09/25/21 10/07/22 melatonin 3 mg tablet 3 - 5 mg PO HS 09/25/21 10/07/22 fluoxetine 10 mg capsule 20 mg PO DAILY 01/29/22 10/07/22 quetiapine 25 mg tablet (Seroquel) 25 mg PO BID 01/29/22 10/07/22 lidocaine 3.5 % topical patch 1 patch topical DIRECTED 05/17/22 10/07/22 epinephrine 0.3 mg/0.3 mL 0.3 ml subcut ONCE PRN anaphylaxis 08/14/22 10/07/22 injection, auto-injector #2 ea clonidine HCl 0.2 mg tablet 1 tab PO HS 10/03/22 10/07/22 naproxen sodium 220 mg tablet 220 mg PO PRN PRN 10/03/22 10/07/22 promethazine 25 mg tablet 25 mg PO Q6H PRN nausea and 10/04/22 10/07/22 vomiting #10 tabs Previous Rx's Medication Instructions Recorded medroxyprogesterone 150 mg/mL 150 mg IM every 3 months #1 SYRG 09/21/21 intramuscular syringe (Depo-Provera) epinephrine 0.3 mg/0.3 mL 0.3 ml subcut ONCE PRN anaphylaxis 08/14/22 injection, auto-injector #2 ea promethazine 25 mg tablet 25 mg PO Q6H PRN nausea and 10/04/22 vomiting #10 tabs Allergies Allergy/AdvReac Type Severity Reaction Status Date / Time fluticasone Allergy Severe unknown Verified 10/07/22 19:47 [From Flovent HFA] lisinopril Allergy Intermediate unknown Verified 10/07/22 19:47 paroxetine HCl [From Paxil] Allergy Intermediate Hives Verified 10/07/22 19:47 polyethylene glycol 3350 Allergy Intermediate unknown Verified 10/07/22 19:47 [From Miralax] risperidone [From Risperdal] Allergy Intermediate Hives Verified 10/07/22 19:47 NSAIDS (Non-Steroidal Allergy Due to Verified 10/07/22 19:47 Anti-Inflamma prior kidney damage acetaminophen AdvReac Nausea Unverified 10/07/22 19:47 amoxicillin AdvReac Nausea Verified 10/07/22 19:47 seafood Allergy Intermediate unknown Uncoded 10/07/22 19:47 enviornmental Allergy Mild sneezing Uncoded 10/07/22 19:47 General Stated Complaint: PsychEval MARY KAY: 2 Review of Systems <Trera Melendez NP - Last Filed: 10/08/22 23:21> All systems reviewed & are unremarkable except as noted in HPI and below Psychiatric Psychiatric: Reports as per HPI, Reports depression and Reports suicidal ideation [facility] <Terra Melendez NP - Last Filed: 10/08/22 23:21> All Active Problems (Updated 10/07/22 @ 23:25 by Miguel May MD) COVID (Acute) COVID (Acute) Abdominal pain (Acute) Vaginal discharge (Acute) Female dyspareunia (Acute) UTI (urinary tract infection) (Acute) Blood in urine (Acute) Abdominal pain (Acute) Dysuria (Acute) Depression (Chronic) Situational anxiety (Acute) Vomiting (Acute) Drug-induced nausea and vomiting (Acute) Dizziness (Acute) Nausea and vomiting (Acute) Constipation (Acute) Hyperplastic colon polyp (Acute) Rectal polyp (Acute) Chronic kidney disease, stage 1 (Chronic 12/31/16) from renal infection as a child elevated BP resulting 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 Patient is using the Depo-Provera for menstrual cycle control. Depression (12/31/16) Drug abuse, episodic use Dysuria Family history of colon cancer Fatigue Generalized headaches (12/31/16) Hemolytic uremic syndrome History of allergic reaction History of mastoiditis Hypertrophy of tonsils and adenoids Illiteracy Per caregiver she is able to read and write, she needs assitance with comprehension of more complex words. Jaw pain Mesenteric lymphadenitis Otalgia, right ear Overactive bladder (02/09/18) Pain, dental PTSD (post-traumatic stress disorder) RBC microcytosis Steatosis of liver SASHA (stress urinary incontinence, female) Suicidal ideation TMJ tenderness, left Vitamin D deficiency Surgical History History of colonoscopy (~06/2022) History of kidney surgery Hx of tooth extraction Social History Smoking/Tobacco Use Status: Current every day Tobacco Type: e-cigarettes Smoking risk assessment performed?: Yes Alcohol Intake: former Drug use: Current Sobriety Substance use type: marijuana Sexually active: Yes (female partner only now(May 2022). Has never had intercourse) Do you think of yourself as: lesbian/cash/homosexual What is your relationship status?: never Panel score (0-1 are the most socially isolated patients): 0 Do you feel safe at home: Yes Do you feel safe in your relationship?: Yes Additional Social history: lives alone - states she feels sad when she is alone Female Reproductive History Menstrual control method: progesterone injection History History 0 Para Hx # Term Pregnancies Multiple births Hx # Pregnancies Ectopic pregnancies AB induced Hx Number of Living Children AB spontaneous Exam <Terra Melendez NP - Last Filed: 10/08/22 23:21> Narrative Exam Narrative: Constitutional: Alert and oriented x3. Appears stated age. Normal body habitus. Head: Normocephalic, no trauma. Eyes: Pupils PERRL, Red reflex noted, EOM's intact. Eyelids symmetrical without lesions, discharge, or swelling. ENT: Bilateral TM's WNL, External ear normal to inspection, no mastoid TTP, swelling, or erythema, Nasal turbinates WNL, no nasal discharge. Normal dentition, Posterior pharynx WNL, no exudate. Chest: RRR, Normal S1, S2, distal pulses intact. Resp: Lungs clear to auscultation bilaterally, no wheezes, rales, or rhonchi. Abdomen: Soft, non-distended, Normoactive bowel sounds all 4 quads. Musculoskeletal: Normal gait, 5/5 strength to all four extremities. Skin: No suspicious rashes or lesions. Capillary refill less than 2 sec. Neurologic: Cranial nerves II-XII intact. Alert and oriented x 3. Motor: No deficits noted. Sensory: Intact bilaterally all 4 extremities. Reflexes: DTR's intact bilaterally.. Hematologic/Lymphatic: No ecchymosis, no lymphadenopathy. Psychiatric: See below Psych Appearance: grossly normal Speech and Movement: speech and movement normal Affect: normal affect Attitude: cooperative Thought Process: normal Thought Content: suicidality Insight: fair Judgment: fair Course <Terra Melendez NP - Last Filed: 10/08/22 23:21> Vital Signs Vital signs: Vital Signs Temperature 37.0 C 10/07/22 18:00 Pulse 81 10/07/22 18:00 Respiratory Rate 18 10/07/22 18:00 Blood Pressure 144/86 H 10/07/22 18:00 Pulse Oximetry 97 10/07/22 18:00 Temperature 37.0 C 10/07/22 18:00 Temperature Source Temporal Artery Scan 10/07/22 18:00 Pulse 81 10/07/22 18:00 Respiratory Rate 18 10/07/22 18:00 Respiratory Effort Non-Labored 10/07/22 18:02 Blood Pressure 144/86 H 10/07/22 18:00 Blood Pressure Position Sitting 10/07/22 18:00 Pulse Oximetry 97 10/07/22 18:00 Oxygen Delivery Method Room Air 10/07/22 18:00 Oxygen Flow Rate 0 10/07/22 18:00 Lab/Test Results Lab/Test Results: Laboratory Tests Range/Units 10/07/22 18:09 Urine Color (Yellow) Yellow Urine Clarity (Clear) Clear Urine pH (5-8) 7.0 Ur Specific [place] (1.005-1.025) >= 1.030 H Urine Protein (Negative) mg/dL 30 H Urine Ketones (Negative) mg/dL Negative Urine Blood (Negative) Negative Urine Nitrite (Negative) Negative Urine Bilirubin (Negative) Negative Urine Urobilinogen (Up TO 0.2) EU/dL 0.2 Ur Leukocyte Esterase (Negative) Negative Urine RBC (0-2) HPF Negative Urine WBC (0-5) HPF 0-2 Ur Epithelial Cells (Negative) HPF Few Urine Crystals (Negative) HPF Negative Urine Bacteria (Negative) HPF Rare Urine Casts (Negative) LPF Negative Urine Mucus (Negative) Trace Ur Culture Indicated? No Urine Glucose (Negative) mg/dL Negative POC- Test(urine) Negative Sign Out <Terra Melendez NP - Last Filed: 10/08/22 23:21> Sign Out Data: Sign Out Comment: Pending placement for voluntary inpatient psychiatric. History of bipolar 2, PTSD, suicidal ideation stated she wanted to hang herself. Reevaluation to be performed in the a.m. Home meds ordered. Patient is remained calm and cooperative. Last updated by Terra Melendez NP at 10/07/22 22:54 Sign Out Comment: depressed and si, here voluntary no issues overnight Last updated by Miguel May MD at 10/08/22 02:37 Sign Out Comment: voluntary, SI, depression, awaiting placement Last updated by Zeb Mcguire MD at 10/08/22 16:34 Sign Out Comment: Patient remains as a voluntary psychiatric admission for depression and SI. Last updated by Alejandro Sepulveda MD at 10/08/22 23:13
[2022-10-07 18:47] LABS: *AMPHETAMINES SCREEN URINE Negative (Negative); *BENZODIAZEPINES SCREEN URINE Negative (Negative); Cannabinoids THC Negative (Negative); Cocaine Screen,Urine Negative (Negative)
[2022-10-07 18:48] LABS: *BARBITURATES SCREEN URINE Negative (Negative); OPIATES URINE SCREEN Negative (Negative); Tricyclic Antidepressants Negative (Negative)
[2022-10-07] MEDS: QUEtiapine 25 MG TAB PO (21:04)
[2022-10-07] MEDS: cloNIDine 0.1 MG TAB 0.2 MG PO (21:04)
[2022-10-07] MEDS: Melatonin 3 MG TAB 5 MG PO (21:04)
[2022-10-07 21:23] LABS: Abs Immature Grans 0.05 10^3/uL (0.0-0.06); Absolute Basophil Count 0.05 10^3/uL (0.0-0.2); Absolute Monocyte Count 0.93 10^3/uL (0.1-0.8); Basophils % 0.4; Eosinophils % 1.6; HCT 39.8 % (36.0-46.0); HGB 12.7 g/dL (11.2-15.7); Immature Grans % 0.4; MCH 24.2 pg (27.0-33.0); MCHC 31.9 % (32.0-36.0); MCV 76 fL (80-95); MPV 12.9 fL (8.0-11.0); Monocytes % 6.9; Neutrophils % 72.7; Platelet Count 285 10^3/uL (130-400); RBC 5.24 10^6/uL (3.93-5.22); RDW 15.3 % (11.7-14.6); RDW-SD 41.9 fL; WBC 13.47 10^3/uL (4.4-10.8)
[2022-10-07 21:32] LABS: Absolute Eosinophil Count 0.22 10^3/uL (0.0-0.7); Absolute Lymphocyte Count 2.42 10^3/uL (1.2-3.4); Absolute Neutrophil Count 9.79 10^3/uL (1.2-6.7)
[2022-10-07 21:41] LABS: ALT 20 U/L (14-59); AST 10 U/L (15-37); Albumin 4.1 g/dL (3.4-5.0); Alkaline Phosphatase 91 U/L (46-116); BUN 9 mg/dL (7-18); Bilirubin, Total 0.4 mg/dL (0.2-1.0); CREATININE 0.8 mg/dL (0.55-1.02); Chloride 101 mmol/L (98-107); Glucose 111 mg/dL (74-106); Potassium 3.4 mmol/L (3.5-5.1); Sodium 136 mmol/L (136-145); Total Protein 7.8 g/dL (6.4-8.2)
[2022-10-07 21:43] LABS: ETHANOL BLOOD < 3.0 mg/dL (<10)
[2022-10-07 21:48] LABS: Acetaminophen < 2 ug/mL (10-30); Salicylate < 2.8 mg/dL (<2.8)
[2022-10-08] MEDS: FLUoxetine 20 MG CAP PO (07:54)
[2022-10-08] MEDS: Labetalol 100 MG TAB PO (07:54)
[2022-10-08] MEDS: Loratidine 10 MG TAB PO (07:54)
[2022-10-08] MEDS: QUEtiapine 25 MG TAB PO ×2 (07:55→20:48)
--- NOTE | 2022-10-08 09:25 | PDOC.CMSAFED ---
- If Service Date Differs Date of service: 10/08/22 Time of Service: 09:25 Care Management Safety Plan Status: Voluntary - Reason for Wait Reason for Wait: Inpatient Admission Shannon was sitting up on the bed when CM met with her. She had been using the [facility] phone to talk with her mother. She stated that she is doing ok today, and asked if she would be transitioned to med/surge. ROSELIA explained that she is currently being observed in the ED, and it would be ideal to transfer her from the ED directly to an inpatient psychiatric facility. If it looks like there are no beds available at facilities, there will be a team discussion about whether she will remain in the ED vs move to med/surge. CM provided crayons and an [facility] marcelinaarmen dewitt, at [facility] request of the [facility]. She was screened by [facility], who is seeking voluntary inpatient psychiatric treatment. Shannon is agreeable to going to treatment. Per [facility], there are no beds available today. [facility] and [facility] are both reviewing her referral. ROSELIA discussed this with the provider in the ED and the RN Bench Assembler Operator, and the decision was made to hold her in the ED overnight for possible placement vs safety plan home over the weekend. VOLUNTARY FOR INPATIENT PSYCHIATRIC STABILIZATION. Patient is appropriate in all interactions since arriving at [facility]; Pt has demonstrated appropriate coping and communication skills, has articulated his or her needs and concerns and is fully engaged during staff interactions. Safety plan has been established with patient, and care team, to adhere to patient goals, identify restrictions based on behavioral status, address nutrition, and determine allowed personal belongings, tools for hygiene and personal care. Determine level of activity including ambulation, level of supervision, visitors, and determine privileges based on behaviors and level of engagement by pt. SAFETY PLAN: 1. Will remain on suicide precautions. In Paper Clothes 2. Will remain in room under direct supervision of one-on-one staff at all times provided by [facility]; VIGNESH, STEMHOLE BORER iron worker apprentice. 3. May have paper cups, plates, finger foods as well as a cardboard spoon with which to eat meals. 4. Follow [facility] Management of the Admitted Behavioral Health Patient policy. 5. Comfort bath system, shower permitted with escort at RN discretion. 6. No personal belongings-soft items permitted at RN discretion. 7. Visitors- at RN discretion. 8. Activities: soft cart items, activity kit, [facility] marcelina bear approved per RN discretion. 9. Bathroom privileges with escort in the ED, available in room without limitation on M/S. 10. Phone: contact limited to family at this time, via cordless phone at RN discretion. 11. Due to VOLUNTARY status, if patient wishes to leave [facility], staff will contact [facility] Crisis Screener ([phone]) and On-Call Ski Maker Wood ([phone]) as soon as possible. In the event of elopement, notify [facility] Police ([phone]). Patient is currently voluntarily at [facility] and seeking inpatient admission when a bed becomes available. [facility] Frontline Manual Arts Therapist will continue seeking placement. Please contact the Boxing Promoter Ski Maker Wood ([phone]) and [facility] Manual Arts Therapist ([phone]) for any needed changes in the Safety Plan. Safety plan has been provided to interdepartmental care team.
[2022-10-08 09:31] LABS: Source Nasal/Nares
[2022-10-08 10:01] LABS: COVID-19 PCR Negative (Negative)
[2022-10-08 15:18] VITALS: BP 122/83; PULSE 102; RESP 18; TEMP 37.3; O2SAT 97
[2022-10-08] MEDS: LORazepam 1 MG TAB PO (15:39)
[2022-10-08] MEDS: Docusate Sodium 100 MG CAP (15:39)
[2022-10-08 19:30] VITALS: BP 142/88; PULSE 88; RESP 18; TEMP 36.7; O2SAT 98
[2022-10-08] MEDS: cloNIDine 0.1 MG TAB 0.2 MG PO (21:10)
--- NOTE | 2022-10-09 00:11 | W.EDPROG ---
Date of service: 10/09/22 Time of Service: 00:11 Medical Decision Making pt stable awaiting placement, no reported issues during the day and currently calm and cooperative no acute complaints. Sign Out Yes Sign Out Sign Out Data: Sign Out Comment: Pending placement for voluntary inpatient psychiatric. History of bipolar 2, PTSD, suicidal ideation stated she wanted to hang herself. Reevaluation to be performed in the a.m. Home meds ordered. Patient is remained calm and cooperative. Last updated by Terra Melendez NP at 10/07/22 22:54 Sign Out Comment: depressed and si, here voluntary no issues overnight Last updated by Miguel May MD at 10/08/22 02:37 Sign Out Comment: voluntary, SI, depression, awaiting placement Last updated by Zeb Mcguire MD at 10/08/22 16:34 Sign Out Comment: Patient remains as a voluntary psychiatric admission for depression and SI. Last updated by Alejandro Sepulveda MD at 10/08/22 23:13 Discharge Plan Disposition Condition: Stable Condition: Stable Discharge Details Chief Complaint: PsychEval Clinical Impression: Depression Primary Care Provider: Niyah Seran ED Provider: Miguel May Home Meds and New Rx's Prescriptions: No Action melatonin 3 mg tablet 3 - 5 mg PO HS Rx Instructions: 1-2 tabs (3-6 mg) po at hs albuterol sulfate 90 mcg/actuation HFA aerosol inhaler 1 inh IH ONCE loratadine 10 mg capsule 10 mg PO DAILY labetalol 100 mg tablet 50 mg PO DAILY Digestive Advantage Prob Gummy 250 million cell tablet,chewable 250 cell PO DAILY lidocaine 3.5 % adhesive patch,medicated 1 patch topical DIRECTED medroxyprogesterone [Depo-Provera] 150 mg/mL syringe 150 mg IM every 3 months Qty: 1 5RF Rx Instructions: bring syringe to [facility] for administration. quetiapine [Seroquel] 25 mg tablet 25 mg PO BID fluoxetine 10 mg capsule 20 mg PO DAILY epinephrine 0.3 mg/0.3 mL auto-injector 0.3 ml SC ONCE PRN (Reason: anaphylaxis) Qty: 2 0RF Rx Instructions: as a single dose; may repeat once promethazine 25 mg tablet 25 mg PO Q6H PRN (Reason: nausea and vomiting) Qty: 10 0RF acetaminophen 500 mg Tablet 1,000 mg PO PRN PRN clonidine HCl 0.2 mg tablet 1 tab PO HS Label Comments: TAKE ONE TABLET BY MOUTH AT BEDTIME naproxen sodium 220 mg Tablet 220 mg PO PRN PRN
[2022-10-09] MEDS: Docusate Sodium 100 MG CAP PO (07:39)
[2022-10-09] MEDS: FLUoxetine 20 MG CAP PO (07:39)
[2022-10-09] MEDS: QUEtiapine 25 MG TAB PO (07:39)
[2022-10-09] MEDS: Loratidine 10 MG TAB PO (07:39)
[2022-10-09] MEDS: Labetalol 100 MG TAB PO (07:40)
[2022-10-09 13:00] VITALS: BP 138/76; PULSE 82; RESP 18; TEMP 36.8; O2SAT 98
--- NOTE | 2022-10-09 15:41 | CMPROGNOTE_ITS ---
- If Service Date Differs Date of service: 10/09/22 Time of Service: 15:42 Care Management Progress Note Shannon has been accepted at [facility]. Transport has been coordinated by CM with [facility]. [facility] will communicate transport time to the ED. - Status Status: Voluntary - Reason for Wait Reason for Wait: Inpatient Admission
[2022-10-09] MEDS: LORazepam 0.5 MG TAB PO (16:45)
--- NOTE | 2022-10-09 21:52 | MHPN_ITS ---
Date of service: 10/09/22 Time of Service: 21:52 Mental Health Emergency Note Release [facility] release signed:: Yes Reason for Visit Client is currently waiting for voluntary treatment at [facility] due to her increased suicidal ideations. This data analyst report writer screened Shannon in person today. In the last 2 weeks has the pt presented for ES prior to today?: Yes, presented at [facility] ED Client Information Client is: IDDS Well Housed: Yes Non Suicidal Self Injury Current: No History: No Safety Risk/Harm to Self or Others Current Ideation to Harm Self or Others: Yes to self. Intent: no, has no intent. Plan: no.does not have a plan. History of suicide attempt: No history of suicide attempt reported Risk: Does risk to harm exist?: yes. Risk: Moderate Risk Duty to warn indicated: No Asssessment/Mental Status Appearance: Disheveled Attitude: Cooperative and Friendly Behavior: Unremarkable Speech: Normal Affect: Cogruent with mood Mood: Depressed and Anxious Thought process: Unremarkable Hallucinations: No Delusions: No Attention: Unremarkable Perception: Not impaired Orientation: Fully orientated Memory: Intact Insight: Good Judgement: Good Neurovegetative Symptoms Sleep: No change Appetitie: No change Interests: Decrease Energy: Decrease Libido: Not applicable Substance Use: Do you use nicotine?: No Have you used substances in the last 7 days?: No Additional Issues: Assaultive/Threatening Behavior: No Medical Concerns: No Client engaged in active self harm w/weapon: No Threatening to run away: No Child reported abuse/neglect: No Voluntarily presenting for services: Yes Domestic violence is a concern: No Extreme Psychosis or extreme behavior is present: No Impression Client has been awaiting placement since , 10.07.2022 for an inpatient placement to address her increasing symptoms of depression and SI. The longer she waits the more anxious she is becoming. I just want to get some anxiety medications and wait for placement at home. This was discussed with her and she was reminded that this is not how this process works. She was receptive to this feedback and willing to engage in the process to continue to wait. She presents as having low energy, and after her shower being light headed and moderately disconnected but still able to engage. She was given Ativan on 10.08.2022 to help her sleep due to her anxiety. These symptoms are congruent with a depressive disorder and possible anxiety disorder. Calls to hospitals were made and the client was accepted to [facility] and eventually transported at 5 pm via [facility] per Care Management. Plan/Disposition Recommended Disposition: Hospitalization facilities contacted. Plan: Client will follow up with her team after discharge for continued treatment.? Person reported agreement to plan: Yes Facilities contacted if Applicable [facility] Accepted, Accepted/transfer pending. Information Sent to [place]: Referral, Reports/communication Outcome discussed with: ED/Personnel
== END 2022-10-09 16:52 ==
PROVIDERS: Registered Nurse Emergency; Emergency Provider Emergency Medicine; PCP Nurse Practitioner Family
DX: F32.A Depression, unspecified (principal); R45.851 Suicidal ideations; F43.10 Post-traumatic stress disorder, unspecified; F90.9 Attention-deficit hyperactivity disorder, unspecified type; F17.290 Nicotine dependence, other tobacco product, uncomplicated; Z20.822 Contact with and (suspected) exposure to COVID-19
CPT/HCPCS: 80053; 80307; 81025; 87635; 99285; 80320; 80329; 81003; 81015; 85025

== ENCOUNTER 2022-10-20 15:53 | Emergency (ER) | payer MEDICAID, SELFPAY ==
[2022-10-20 15:57] VITALS: BP 134/99; PULSE 102; RESP 16; TEMP 37.9; O2SAT 97
[2022-10-20 16:21] VITALS: TEMP 37.4
--- NOTE | 2022-10-20 17:16 | ED.GENADUL_ITS ---
Discharge Plan Disposition Patient Disposition: Home Condition: Improving Discharge Details Clinical Impression: Depression, Situational anxiety Primary Care Provider: Niyah Serna ED Provider: Kenton Irene Home Meds and New Rx's Prescriptions: No Action melatonin 3 mg tablet 3 - 5 mg PO HS Rx Instructions: 1-2 tabs (3-6 mg) po at hs albuterol sulfate 90 mcg/actuation HFA aerosol inhaler 1 inh IH ONCE loratadine 10 mg capsule 10 mg PO DAILY labetalol 100 mg tablet 50 mg PO DAILY Digestive Advantage Prob Gummy 250 million cell tablet,chewable 250 cell PO DAILY lidocaine 3.5 % adhesive patch,medicated 1 patch topical DIRECTED medroxyprogesterone [Depo-Provera] 150 mg/mL syringe 150 mg IM every 3 months Qty: 1 5RF Rx Instructions: [facility] syringe to [facility]. quetiapine [Seroquel] 25 mg tablet 25 mg PO BID epinephrine 0.3 mg/0.3 mL auto-injector 0.3 ml SC ONCE PRN (Reason: anaphylaxis) Qty: 2 0RF Rx Instructions: as a single dose; may repeat once cetirizine 10 mg tablet 10 mg PO DAILY acetaminophen 500 mg Tablet 1,000 mg PO PRN PRN clonidine HCl 0.2 mg tablet 1 tab PO HS Label Comments: TAKE ONE TABLET BY MOUTH AT BEDTIME naproxen sodium 220 mg Tablet 220 mg PO PRN PRN Discharge Instructions Instructions: Depression (ED), Anxiety (ED) Additional Instructions: Please continue to follow-up with your normal mental health team. Follow safety plan as established and if you have any significant change in your symptoms follow-up with mental health team or if emergent condition is present to return to the emergency department for reassessment. Referrals: [facility] [Outside] Discharge Data Discharge Date/Time-TO BE ENTERED AT DEPARTURE: 10/20/22 18:42 Medical Decision Making Patient presenting to the emergency department via EMS for chief complaint of depression, hopelessness, and suicidal ideations with intentional self-harm. Patient reports that after appointment with medication provider yesterday she got upset with her plan of care and did not want to follow what they requested which is made her feel hopeless and upset. She left inpatient psychiatric facility approximately 1 week ago and is requesting to go back there for any further medication changes as she does not like her provider. She does state that she is suicidal with a plan of cutting herself. She denies any overdose, alcohol ingestion, drug use, or other medical complaints. Physical exam shows superficial lacerations to right forearm otherwise is unremarkable, patient is alert and oriented x4, acting appropriately, no other exam findings noted. Patient is well familiar to myself in the department and so smart form was utilized to clear patient medically for mental health screening exam. Pending mental health evaluation patient did call me into the room and said that she was no longer suicidal. Of notation of this was after I told the patient that she would be unable to go to her psychiatric facility of choice every time she wants a medication change and that she would need to continue to follow-up with her normal psychiatric providers even if that made her upset as they are the ones that we will continue to help her on a ongoing basis. Crisis screener did come and evaluate patient and will contact patient's typical worker but patient is now denying suicidal ideations and saying that she is wanting to go home. Patient was able to contract for safety and I do feel that patient is safe to go home. After discussion of diagnosis and plan of care patient has no further needs, questions, or concerns and states clear understanding to return to the emergency department for any worsening symptoms. This documentation was generated using [employer] dictation system, please disregard any oddities of phrase or misspellings. HPI General Mode of arrival: EMS . Date/Time Provider Initiated Documentation: 10/20/22 16:04 . Limitations to Documentation: no limitations . Information obtained by: patient and RN notes reviewed . History of Present Illness 27 year old F presents to the emergency department with the chief complaint of Suicidal ideations and intentional self-harm, described as similar to prior episodes, Quality is described as sharp, and is localized to the right and upper extremity. Patient started experiencing this day(s) (1) and it has been constant. No relieving factors improve symptom(s), Other factors that worsen symptoms (Appointment with psychiatric provider) . Patient notes no other symptoms.. Patient did receive the following treatments prior to arrival, none Related Data Home Medications Medication Instructions Recorded Confirmed acetaminophen 500 mg tablet 1,000 mg PO PRN PRN 10/30/19 10/26/22 albuterol sulfate 90 mcg/actuation 1 inh inhalation ONCE 05/13/20 10/26/22 aerosol inhaler loratadine 10 mg capsule 10 mg PO DAILY 07/31/20 10/26/22 medroxyprogesterone 150 mg/mL 150 mg IM every 3 months #1 SYRG 09/21/21 10/26/22 intramuscular syringe (Depo-Provera) Bacillus coagulans 250 million 250 cell PO DAILY 09/25/21 10/26/22 cell chewable tablet (Digestive Advantage Probiotic Gummy) labetalol 100 mg tablet 50 mg PO DAILY 09/25/21 10/26/22 melatonin 3 mg tablet 3 - 5 mg PO HS 09/25/21 10/26/22 quetiapine 25 mg tablet (Seroquel) 25 mg PO BID 01/29/22 10/26/22 lidocaine 3.5 % topical patch 1 patch topical DIRECTED 05/17/22 10/26/22 epinephrine 0.3 mg/0.3 mL 0.3 ml subcut ONCE PRN anaphylaxis 08/14/22 10/26/22 injection, auto-injector #2 ea clonidine HCl 0.2 mg tablet 1 tab PO HS 10/03/22 10/26/22 naproxen sodium 220 mg tablet 220 mg PO PRN PRN 10/03/22 10/26/22 cetirizine 10 mg tablet 10 mg PO DAILY 10/25/22 10/26/22 Previous Rx's Medication Instructions Recorded medroxyprogesterone 150 mg/mL 150 mg IM every 3 months #1 SYRG 09/21/21 intramuscular syringe (Depo-Provera) epinephrine 0.3 mg/0.3 mL 0.3 ml subcut ONCE PRN anaphylaxis 08/14/22 injection, auto-injector #2 ea Allergies Allergy/AdvReac Type Severity Reaction Status Date / Time fluticasone Allergy Severe unknown Verified 10/26/22 07:41 [From Flovent HFA] lisinopril Allergy Intermediate unknown Verified 10/26/22 07:41 paroxetine HCl [From Paxil] Allergy Intermediate Hives Verified 10/26/22 07:41 polyethylene glycol 3350 Allergy Intermediate unknown Verified 10/26/22 07:41 [From Miralax] risperidone [From Risperdal] Allergy Intermediate Hives Verified 10/26/22 07:41 NSAIDS (Non-Steroidal Allergy Due to Verified 10/26/22 07:41 Anti-Inflamma prior kidney damage acetaminophen AdvReac Nausea Unverified 10/26/22 07:41 amoxicillin AdvReac Nausea Verified 10/26/22 07:41 seafood Allergy Intermediate unknown Uncoded 10/26/22 07:41 enviornmental Allergy Mild sneezing Uncoded 10/26/22 07:41 General Stated Complaint: PsychEval MARY KAY: 2 Review of Systems Constitutional Constitutional: Denies body ache(s), Denies chills and Denies fever(s) Eyes Eyes: Denies change in vision ENT Ears, Nose, Mouth, and Throat: Denies sore throat and Denies throat swelling Cardiovascular Cardiovascular: Denies chest pain and Denies dyspnea Respiratory Respiratory: Denies cough and Denies dyspnea Gastrointestinal Gastrointestinal: Denies abdominal pain, Denies diarrhea, Denies nausea and Denies vomiting Genitourinary Genitourinary: Denies dysuria Psychiatric Psychiatric: Reports as per HPI, Reports depression, Reports hopelessness, Denies visual hallucinations, Denies hallucinations, Denies tactile hallucinations, Denies homicidal ideation and Reports suicidal ideation Allergic/Immunologic Allergic/Immunologic: Denies throat swelling PFSH All Active Problems (Updated 10/26/22 @ 00:47 by Zeb Mcguire MD) COVID (Acute) COVID (Acute) Dysuria (Acute) Depression (Chronic) Situational anxiety (Acute) Vomiting (Acute) Drug-induced nausea and vomiting (Acute) Dizziness (Acute) Nausea and vomiting (Acute) Constipation (Acute) Medication adverse effect (Acute) Hyperplastic colon polyp (Acute) Rectal polyp (Acute) Chronic kidney disease, stage 1 (Chronic 12/31/16) from renal infection as a child elevated BP resulting 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 Patient is using the Depo- Provera for menstrual cycle control. Depression (12/31/16) Drug abuse, episodic use Dysuria Family history of colon cancer Fatigue Generalized headaches (12/31/16) Hemolytic uremic syndrome History of allergic reaction History of mastoiditis Hypertrophy of tonsils and adenoids Illiteracy Per caregiver she is able to read and write, she needs assitance with comprehension of more complex words. Jaw pain Mesenteric lymphadenitis Otalgia, right ear Overactive bladder (02/09/18) Pain, dental PTSD (post-traumatic stress disorder) RBC microcytosis Steatosis of liver SASHA (stress urinary incontinence, female) Suicidal ideation TMJ tenderness, left Vitamin D deficiency Surgical History History of colonoscopy (~06/2022) History of kidney surgery Hx of tooth extraction Social History Smoking/Tobacco Use Status: Former Tobacco Use Smoking risk assessment performed?: Yes Alcohol Intake: former Drug use: Current Sobriety Substance use type: marijuana Sexually active: Yes (female partner only now(May 2022). Has never had intercourse) Do you think of yourself as: lesbian/cash/homosexual What is your relationship status?: never Panel score (0-1 are the most socially isolated patients): 0 Do you feel safe at home: Yes Do you feel safe in your relationship?: Yes Additional Social history: lives alone - states she feels sad when she is alone Female Reproductive History Menstrual control method: progesterone injection History History 0 Para Hx # Term Pregnancies Multiple births Hx # Pregnancies Ectopic pregnancies AB induced Hx Number of Living Children AB spontaneous Exam Const General: cooperative Orientation: alert, awake and oriented x3 Limitations: mental status not altered [facility] Head: normal to inspection, normocephalic and atraumatic Ears: hearing grossly normal bilaterally Mouth: moist mucous membranes Eyes General: appearance normal, both eyes and all related structures Pupils: PERRL EOM: EOM intact bilaterally Neck Thyroid: thyroid normal Resp Effort & Inspection: normal respiratory effort, able to speak in complete sentences and no respiratory distress Auscultation: clear to auscultation bilaterally Cardio Rate: regular rate and not tachycardic Rhythm: regular rhythm Heart Sounds: S1 normal, S2 normal, no click, no gallops, no murmurs and no rubs Neuro General: patient alert, patient awake, patient oriented x3, gait normal, moves all extremities and no focal motor deficits Cognition: normal cognition Speech: speech normal Extrem General: normal exam except as noted Right upper extremity: elbow/forearm Details: other (Multiple superficial lacerations to right forearm) Psych Speech and Movement: speech and movement normal and speech clear Affect: sad Attitude: cooperative Thought Content: suicidality Course Vital Signs Vital signs: Vital Signs Temperature 37.9 C H 10/20/22 15:57 Pulse 102 H 10/20/22 15:57 Respiratory Rate 16 10/20/22 15:57 Blood Pressure 134/99 H 10/20/22 15:57 Pulse Oximetry 97 10/20/22 15:57 Temperature 37.4 C 10/20/22 16:21 Temperature Source Temporal Artery Scan 10/20/22 15:57 Pulse 102 H 10/20/22 15:57 Respiratory Rate 16 10/20/22 15:57 Respiratory Effort Short of Breath 10/20/22 16:00 Blood Pressure 134/99 H 10/20/22 15:57 Blood Pressure Position Sitting 10/20/22 15:57 Pulse Oximetry 97 10/20/22 15:57 Oxygen Delivery Method Room Air 10/20/22 15:57 Oxygen Flow Rate 0 10/20/22 15:57 Pain Level 0 10/20/22 15:57 Lab/Test Results Lab/Test Results: POC- Test(urine) Negative
--- NOTE | 2022-10-21 10:01 | PDOC.MHCN ---
Date of service: 10/20/22 Time of Service: 10:01 PHQ-9 Over the last 2 weeks, how often have you been bothered by any of the following problems? 1. Little interest or pleasure in doing things: several days 2. Feeling down, depressed, or hopeless: several days 3. Trouble falling or staying asleep, or sleeping too much: not at all 4. Feeling tired or having little energy: several days 5. Poor appetite or overeating: several days 6. Feeling bad about yourself - or that you are a failure or have let yourself and your family down: several days 7. Trouble concentrating on things, such as reading the newspaper or watching television: not at all 8. Moving or speaking so slowly that other people could have noticed? - Or the opposite - being so fidgety or restless that you have been moving around a lot more than usual: several days 9. Thoughts that you would be better off or of hurting yourself in some way: not at all Total score: 6 If you checked off any problems, how difficult have these problems made it for you to do your work, take care of things at home, or get along with other people?: somewhat difficult Source: Developed by Drs. Alejandro Ward, Melva Mancilla, Dave Sutton and colleagues, with an educational marcio from [employer]. Suicide Severity Rate CSSRS Have you wished you were or wished you could go to sleep and not wake up?: No Have you actually had any thoughts of killing yourself?: No CSSRS3 Have you ever done anything, started to do anything or prepared to do anything to end your life?: Yes CSSRS4 Was this within the past three months?: Yes Screening Score Total Score: 4 Screening: Positive Mental Health Emergency Note Release [facility] release signed:: Yes Reason for Visit Client arrived to [facility] ED via [facility] after reporting SI and engaging in NSSI. She endorsed SI to the ED provider as well. In the last 2 weeks has the pt presented for ES prior to today?: Yes, presented at [facility] ED Client Information Client is: [facility] Well Housed: Yes Non Suicidal Self Injury Current: Yes, superficial cuts on her right forearm. History: No Safety Risk/Harm to Self or Others Current Ideation to Harm Self or Others: No Risk: Does risk to harm exist?: No Risk: N/A Duty to warn indicated: No Asssessment/Mental Status Appearance: Well groomed Attitude: Cooperative and Friendly Behavior: Unremarkable Speech: Normal Affect: Normal Mood: Happy Thought process: Goal directed Hallucinations: No Delusions: No Attention: Unremarkable Perception: Not impaired Orientation: Fully orientated Memory: Intact Insight: Good Judgement: Fair Neurovegetative Symptoms Sleep: No change Appetitie: No change Interests: No change Energy: No change Libido: Not applicable Substance Use: Do you use nicotine?: No Have you used substances in the last 7 days?: No Additional Issues: Assaultive/Threatening Behavior: No Medical Concerns: No Client engaged in active self harm w/weapon: No Threatening to run away: No Child reported abuse/neglect: No Voluntarily presenting for services: Yes Domestic violence is a concern: No Extreme Psychosis or extreme behavior is present: Yes Impression Client is a 27 year old, single female who is a long standing client of the [facility] program. She has had numerous visits in the last few weeks to the ED for medical complaints and then seeking a psychiatric placement due to SI. She was treated and released from [facility] this month. Client presented as eager to go home and happy. She is eating diner at the ED and it was observed she has a large salad, sandwich, soup, chips and dessert. She appeared satisfied with her dinner. Immediately upon entering the room the client is heard saying I'm fine now. I want to go home. I was just frustrated. As we discussed her frustrations more she identified that she was upset with her med appointment the other day with Dr. Deleon. She does not want him to prescribe her medications anymore. She said she talked to her mother and is going to have [facility] prescribe her medications moving forward. Again she asked if she could go home and this clinician reminded her that the entire assessment needed to be completed before any decisions were made. Client presented as manipulative based on the above when she initially to EMT's and ED staff stated that she was suicidal. She told the ED attending that she wanted [facility] to continue to prescribe her meds and was informed that was not an option. Additionally, the client wanted her clothes and phone etc. when informed she likely would be going home. She was informed that when she was discharged she could get her belongings as the ED was busy. This clinician got the sense based on her carefree demeaner and responses that she was seeking something other than treatment and was comforted by the treatment she was receiving. These responses are consistent with her ODD and Mild intellectual disabilities and not her Depressive disorder. Client agreed to all glass being locked up as well as calling or using other strategies when stressed i.e. screaming into her pillow, going for a run, and outreaching to [facility] for support. Resources Reosurces reviewed and given:: [facility] Plan/Disposition Recommended Disposition: [facility] Services [facility] Services: Other. Person reported agreement to plan: Yes Reports/communication Outcome discussed with: ED/Personnel
== END 2022-10-20 18:42 | disposition home or self-care (01) ==
LOC: ER 18:54
PROVIDERS: Emergency Provider Nurse Practitioner Family; PCP Nurse Practitioner Family
DX: F32.A Depression, unspecified (principal); F41.8 Other specified anxiety disorders; R45.851 Suicidal ideations; Z20.822 Contact with and (suspected) exposure to COVID-19
CPT/HCPCS: 81025; 99283

== ENCOUNTER 2022-10-25 21:41 | Emergency (ER) | payer MEDICAID, SELFPAY ==
[2022-10-25] VITALS (11 sets, daily range): BP systolic 138; BP diastolic 77; PULSE 90–103; RESP 16; TEMP 36.4; O2SAT 98
--- NOTE | 2022-10-25 22:13 | ED.GENADUL_ITS ---
Discharge Plan Discharge Details Chief Complaint: Allergic Primary Care Provider: Niyah Serna ED Provider: Oswald Tripp Home Meds and New Rx's Prescriptions: No Action melatonin 3 mg tablet 3 - 5 mg PO HS Rx Instructions: 1-2 tabs (3-6 mg) po at hs albuterol sulfate 90 mcg/actuation HFA aerosol inhaler 1 inh IH ONCE loratadine 10 mg capsule 10 mg PO DAILY labetalol 100 mg tablet 50 mg PO DAILY Digestive Advantage Prob Gummy 250 million cell tablet,chewable 250 cell PO DAILY lidocaine 3.5 % adhesive patch,medicated 1 patch topical DIRECTED medroxyprogesterone [Depo-Provera] 150 mg/mL syringe 150 mg IM every 3 months Qty: 1 5RF Rx Instructions: [facility] syringe to [facility] for administration. quetiapine [Seroquel] 25 mg tablet 25 mg PO BID epinephrine 0.3 mg/0.3 mL auto-injector 0.3 ml SC ONCE PRN (Reason: anaphylaxis) Qty: 2 0RF Rx Instructions: as a single dose; may repeat once cetirizine 10 mg tablet 10 mg PO DAILY acetaminophen 500 mg Tablet 1,000 mg PO PRN PRN clonidine HCl 0.2 mg tablet 1 tab PO HS Label Comments: TAKE ONE TABLET BY MOUTH AT BEDTIME naproxen sodium 220 mg Tablet 220 mg PO PRN PRN Medical Decision Making This is a 27-year-old female who presents for concern of allergic reaction. We were able to speak with her social human services assistants, patient apparently had an allergic reaction to Benadryl previously, did not realize that she has been taking Zyrtec after being discharged from [facility] after realizing she has been taking Zyrtec was concerned of an allergic reaction and then used an EpiPen. It is unclear whether the EpiPen has ever been prescribed to her or this was the EpiPen of her neighbors. She states that she felt warm and thought her throat might be closing up. She is now asymptomatic. She appears well, nontoxic. No evidence of systemic allergic reaction, angioedema, etc. Given she did use epinephrine at approximately 2100, I do believe the patient should be for a minimum of 3 hours. Patient is agreeable with this. Patient was observed during my shift for 1 hour and 15 minutes. Heart rate ranged between 95 and 105. She shows no evidence of decompensation, systemic allergic reaction, angioedema, etc. This documentation was generated using [employer] dictation system, please disregard any oddities of phrase or misspellings. Patient requires another 1 hour of observation and if no signs of decompensation then disposition. Medical Records Medical records reviewed: Yes I reviewed the patient's medical records. HPI General Mode of arrival: EMS . Date/Time Provider Initiated Documentation: 10/25/22 21:57 . Limitations to Documentation: no limitations . Information obtained by: patient and EMS . HPI Narrative: This is a 27-year-old female who presents after using her EpiPen for concerns of an allergic reaction. Patient states that she was recently an inpatient at [facility] and they started her on a new medication, Cetirazine, and does not like the way it makes her feel. She reports this evening she took her nightly medications about 2039 and within 20 minutes thought she felt hot, was concerned that her throat might be swelling, and so use the EpiPen and approximately 2100. At this time she reports her symptoms have resolved completely. Denies difficulty speaking, breathing, swallowing. Denies rash, itching, mouth, tongue, lip swelling. Related Data Home Medications Medication Instructions Recorded Confirmed acetaminophen 500 mg tablet 1,000 mg PO PRN PRN 10/30/19 10/25/22 albuterol sulfate 90 mcg/actuation 1 inh inhalation ONCE 05/13/20 10/25/22 aerosol inhaler loratadine 10 mg capsule 10 mg PO DAILY 07/31/20 10/25/22 medroxyprogesterone 150 mg/mL 150 mg IM every 3 months #1 SYRG 09/21/21 10/25/22 intramuscular syringe (Depo-Provera) Bacillus coagulans 250 million 250 cell PO DAILY 09/25/21 10/25/22 cell chewable tablet (Digestive Advantage Probiotic Gummy) labetalol 100 mg tablet 50 mg PO DAILY 09/25/21 10/25/22 melatonin 3 mg tablet 3 - 5 mg PO HS 09/25/21 10/25/22 quetiapine 25 mg tablet (Seroquel) 25 mg PO BID 01/29/22 10/25/22 lidocaine 3.5 % topical patch 1 patch topical DIRECTED 05/17/22 10/25/22 epinephrine 0.3 mg/0.3 mL 0.3 ml subcut ONCE PRN anaphylaxis 08/14/22 10/25/22 injection, auto-injector #2 ea clonidine HCl 0.2 mg tablet 1 tab PO HS 10/03/22 10/25/22 naproxen sodium 220 mg tablet 220 mg PO PRN PRN 10/03/22 10/25/22 cetirizine 10 mg tablet 10 mg PO DAILY 10/25/22 10/25/22 Previous Rx's Medication Instructions Recorded medroxyprogesterone 150 mg/mL 150 mg IM every 3 months #1 SYRG 09/21/21 intramuscular syringe (Depo-Provera) epinephrine 0.3 mg/0.3 mL 0.3 ml subcut ONCE PRN anaphylaxis 08/14/22 injection, auto-injector #2 ea Allergies Allergy/AdvReac Type Severity Reaction Status Date / Time fluticasone Allergy Severe unknown Verified 10/20/22 16:02 [From Flovent HFA] lisinopril Allergy Intermediate unknown Verified 10/20/22 16:02 paroxetine HCl [From Paxil] Allergy Intermediate Hives Verified 10/20/22 16:02 polyethylene glycol 3350 Allergy Intermediate unknown Verified 10/20/22 16:02 [From Miralax] risperidone [From Risperdal] Allergy Intermediate Hives Verified 10/20/22 16:02 NSAIDS (Non-Steroidal Allergy Due to Verified 10/20/22 16:02 Anti-Inflamma prior kidney damage acetaminophen AdvReac Nausea Unverified 10/20/22 16:02 amoxicillin AdvReac Nausea Verified 10/20/22 16:02 seafood Allergy Intermediate unknown Uncoded 10/20/22 16:02 enviornmental Allergy Mild sneezing Uncoded 10/20/22 16:02 General Stated Complaint: Allergic MARY KAY: 3 Review of Systems Constitutional Constitutional: Denies fever(s) Eyes Eyes: Denies itchy eyes ENT Ears, Nose, Mouth, and Throat: Denies lip swelling, Denies sore throat, Reports throat swelling and Denies tongue swelling Cardiovascular Cardiovascular: Denies chest pain and Denies dyspnea Respiratory Respiratory: Denies cough, Denies dyspnea and Denies wheezing Integumentary/Breasts Skin/Breast: Denies rash Allergic/Immunologic Allergic/Immunologic: Denies urticaria, Denies itchy eyes, Denies lip swelling, Reports seasonal rhinorrhea, Reports throat swelling, Denies tongue swelling and Denies wheezing PFSH All Active Problems COVID (Acute) COVID (Acute) Dysuria (Acute) Depression (Chronic) Situational anxiety (Acute) Vomiting (Acute) Drug-induced nausea and vomiting (Acute) Dizziness (Acute) Nausea and vomiting (Acute) Constipation (Acute) Hyperplastic colon polyp (Acute) Rectal polyp (Acute) Chronic kidney disease, stage 1 (Chronic 12/31/16) from renal infection as a child elevated BP resulting 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 Patient is using the Depo- Provera for menstrual cycle control. Depression (12/31/16) Drug abuse, episodic use Dysuria Family history of colon cancer Fatigue Generalized headaches (12/31/16) Hemolytic uremic syndrome History of allergic reaction History of mastoiditis Hypertrophy of tonsils and adenoids Illiteracy Per caregiver she is able to read and write, she needs assitance with comprehension of more complex words. Jaw pain Mesenteric lymphadenitis Otalgia, right ear Overactive bladder (02/09/18) Pain, dental PTSD (post-traumatic stress disorder) RBC microcytosis Steatosis of liver SASHA (stress urinary incontinence, female) Suicidal ideation TMJ tenderness, left Vitamin D deficiency Surgical History History of colonoscopy (~06/2022) History of kidney surgery Hx of tooth extraction Social History Smoking/Tobacco Use Status: Former Tobacco Use Smoking risk assessment performed?: Yes Alcohol Intake: former Drug use: Current Sobriety Substance use type: marijuana Sexually active: Yes (female partner only now(May 2022). Has never had intercourse) Do you think of yourself as: lesbian/cash/homosexual What is your relationship status?: never Panel score (0-1 are the most socially isolated patients): 0 Do you feel safe at home: Yes Do you feel safe in your relationship?: Yes Additional Social history: lives alone - states she feels sad when she is alone Female Reproductive History Menstrual control method: progesterone injection History History 0 Para Hx # Term Pregnancies Multiple births Hx # Pregnancies Ectopic pregnancies AB induced Hx Number of Living Children AB spontaneous Exam Const General: cooperative, healthy appearing, comfortable and no acute distress Orientation: alert, awake and oriented x3 HENMT Head: normal to inspection, normocephalic and atraumatic General nose exam: external nose normal Face and sinus: normal facial exam Mouth: oral mucosae normal, lip normal, tongue normal and moist mucous membranes Throat: posterior oropharynx normal Eyes General: appearance normal, both eyes and all related structures Conjunctivae: conjunctivae normal Neck Neck: normal visual inspection, full ROM, no lymphadenopathy, no meningeal signs, trachea midline, supple and nontender Resp Effort & Inspection: normal respiratory effort and able to speak in complete sentences Auscultation: clear to auscultation bilaterally Cardio Rate: regular rate Rhythm: regular rhythm GI Palpation: soft and nontender Skin General skin exam: no rashes or lesions noted Neuro General: patient alert, patient awake, moves all extremities and no focal motor deficits Cognition: normal cognition Speech: speech normal Gait: normal gait Motor: muscle tone normal throughout Sensory Exam: no sensory deficits noted Extrem General: normal to inspection, full ROM and capillary refill normal Psych Appearance: grossly normal Mental Status: mental status grossly normal Course Vital Signs Vital signs: Vital Signs Temperature 36.4 C L 10/25/22 21:44 Pulse 99 H 10/25/22 21:44 Respiratory Rate 16 10/25/22 21:44 Blood Pressure 138/77 10/25/22 21:44 Pulse Oximetry 98 10/25/22 21:44 Temperature 36.4 C L 10/25/22 21:44 Temperature Source Oral 10/25/22 21:44 Pulse 99 H 10/25/22 21:44 Respiratory Rate 16 10/25/22 21:44 Respiratory Effort Non-Labored 10/25/22 21:55 Respiratory Pattern Normal 10/25/22 21:55 Blood Pressure 138/77 10/25/22 21:44 Blood Pressure Position Sitting 10/25/22 21:44 Pulse Oximetry 98 10/25/22 21:44 Oxygen Delivery Method Room Air 10/25/22 21:44 Oxygen Flow Rate 0 10/25/22 21:44
[2022-10-26] VITALS (7 sets, daily range): BP systolic 107; BP diastolic 76; PULSE 85–98; RESP 20; O2SAT 98
--- NOTE | 2022-10-28 17:40 | NUR.NOTE ---
PATIENT CALLED REQUESTING REFILL ON [facility], ADVISED HER WE DID NOT DO RX REFILLS FROM THE ER UNLESS SHE COMES IN FOR A VISIT. ADVISED PATIENT TO CONTACT PCP OFFICE TOMORROW TO DISCUSS F/U REGARDING THIS CHRONIC ISSUE SHE IS HAVING.
== END 2022-10-26 01:06 | disposition home or self-care (01) ==
PROVIDERS: Emergency Provider Physician Assistant; PCP Nurse Practitioner Family
DX: T50.995A Adverse effect of other drugs, medicaments and biological substances, initial encounter (principal)
CPT/HCPCS: 99281; 99282

== ENCOUNTER 2022-10-26 07:46 | Emergency (ER) | payer MEDICAID, SELFPAY ==
--- NOTE | 2022-10-26 07:15 | RT.EKG_ITS ---
APPROVED REPORT Exam: Resting ECG Reason for Exam: lightheaded Patient Location: E HR:97 bpm ECG Measurements Heart Rate 97 AXIS MO 134 P 30 QRSd 88 QRS 22 QT 345 T 20 QTc 438 Conclusion Sinus rhythm...normal P axis, V-rate 60- 99 sinus rhythm, normal axis, normal intervals, non ischemic
[2022-10-26 07:33] VITALS: BP 145/87; PULSE 101; RESP 16; TEMP 36.8; O2SAT 96
[2022-10-26 07:42] VITALS: RESP 16
[2022-10-26 07:55] LABS: Bilirubin Negative (Negative); Blood Negative (Negative); Clarity Clear (Clear); Glucose Negative (Negative); Ketones Negative (Negative); Leukocyte Esterase Negative (Negative); Nitrite Negative (Negative); Specific Gravity 1.025 (1.005-1.025); Urobilinogen 0.2 EU/dL (Up TO 0.2)
--- NOTE | 2022-10-26 07:56 | W.ED.GENAD ---
Discharge Plan Discharge Details Chief Complaint: GenMedical Primary Care Provider: Niyah Serna ED Provider: Zeb Mcguire Home Meds and New Rx's Prescriptions: No Action melatonin 3 mg tablet 3 - 5 mg PO HS Rx Instructions: 1-2 tabs (3-6 mg) po at hs albuterol sulfate 90 mcg/actuation HFA aerosol inhaler 1 inh IH ONCE loratadine 10 mg capsule 10 mg PO DAILY labetalol 100 mg tablet 50 mg PO DAILY Digestive Advantage Prob Gummy 250 million cell tablet,chewable 250 cell PO DAILY lidocaine 3.5 % adhesive patch,medicated 1 patch topical DIRECTED medroxyprogesterone [Depo-Provera] 150 mg/mL syringe 150 mg IM every 3 months Qty: 1 5RF Rx Instructions: [facility] syringe to [facility] administration. quetiapine [Seroquel] 25 mg tablet 25 mg PO BID epinephrine 0.3 mg/0.3 mL auto-injector 0.3 ml SC ONCE PRN (Reason: anaphylaxis) Qty: 2 0RF Rx Instructions: as a single dose; may repeat once cetirizine 10 mg tablet 10 mg PO DAILY acetaminophen 500 mg Tablet 1,000 mg PO PRN PRN clonidine HCl 0.2 mg tablet 1 tab PO HS Label Comments: TAKE ONE TABLET BY MOUTH AT BEDTIME naproxen sodium 220 mg Tablet 220 mg PO PRN PRN Medical Decision Making 27-year-old female recent discharge after administration of epinephrine pen presents with nausea and vomiting. Patient was recently discharged from [facility], lives alone, expresses anxiety with living alone. No active vomiting hemodynamically stable resting comfortably nontoxic. Patient has had multiple visits over the past several weeks to months. I believe patient is having anxiety reaction to her current social situation. Lower suspicion for infectious toxicologic or obstructive process. Will obtain EKG, urinalysis, u. preg and have care management team consult with patient. HPI General Date/Time Provider Initiated Documentation: 10/26/22 07:55. HPI Narrative: 27-year-old female was seen here last night/early a.m. hours after someone helped her administer her EpiPen at home in the setting of using a medication that she thought she was allergic to despite not having any allergic symptomatology. Was observed here in the department and discharged home. Patient endorses nausea and vomiting. Patient has been having some issues with her living situation she is currently living alone, was recently discharged from [facility] facility endorses anxiety living alone Related Data Home Medications Medication Instructions Recorded Confirmed acetaminophen 500 mg tablet 1,000 mg PO PRN PRN 10/30/19 10/26/22 albuterol sulfate 90 mcg/actuation 1 inh inhalation ONCE 05/13/20 10/26/22 aerosol inhaler loratadine 10 mg capsule 10 mg PO DAILY 07/31/20 10/26/22 medroxyprogesterone 150 mg/mL 150 mg IM every 3 months #1 SYRG 09/21/21 10/26/22 intramuscular syringe (Depo-Provera) Bacillus coagulans 250 million 250 cell PO DAILY 09/25/21 10/26/22 cell chewable tablet (Digestive Advantage Probiotic Gummy) labetalol 100 mg tablet 50 mg PO DAILY 09/25/21 10/26/22 melatonin 3 mg tablet 3 - 5 mg PO HS 09/25/21 10/26/22 quetiapine 25 mg tablet (Seroquel) 25 mg PO BID 01/29/22 10/26/22 lidocaine 3.5 % topical patch 1 patch topical DIRECTED 05/17/22 10/26/22 epinephrine 0.3 mg/0.3 mL 0.3 ml subcut ONCE PRN anaphylaxis 08/14/22 10/26/22 injection, auto-injector #2 ea clonidine HCl 0.2 mg tablet 1 tab PO HS 10/03/22 10/26/22 naproxen sodium 220 mg tablet 220 mg PO PRN PRN 10/03/22 10/26/22 cetirizine 10 mg tablet 10 mg PO DAILY 10/25/22 10/26/22 Previous Rx's Medication Instructions Recorded medroxyprogesterone 150 mg/mL 150 mg IM every 3 months #1 SYRG 09/21/21 intramuscular syringe (Depo-Provera) epinephrine 0.3 mg/0.3 mL 0.3 ml subcut ONCE PRN anaphylaxis 08/14/22 injection, auto-injector #2 ea Allergies Allergy/AdvReac Type Severity Reaction Status Date / Time fluticasone Allergy Severe unknown Verified 10/26/22 07:41 [From Flovent HFA] lisinopril Allergy Intermediate unknown Verified 10/26/22 07:41 paroxetine HCl [From Paxil] Allergy Intermediate Hives Verified 10/26/22 07:41 polyethylene glycol 3350 Allergy Intermediate unknown Verified 10/26/22 07:41 [From Miralax] risperidone [From Risperdal] Allergy Intermediate Hives Verified 10/26/22 07:41 NSAIDS (Non-Steroidal Allergy Due to Verified 10/26/22 07:41 Anti-Inflamma prior kidney damage acetaminophen AdvReac Nausea Unverified 10/26/22 07:41 amoxicillin AdvReac Nausea Verified 10/26/22 07:41 seafood Allergy Intermediate unknown Uncoded 10/26/22 07:41 enviornmental Allergy Mild sneezing Uncoded 10/26/22 07:41 General Stated Complaint: GenMedical MARY KAY: 4 Review of Systems Narrative: Review of Systems Constitutional: negative Eyes: negative ENT: negative Cardiovascular: negative Respiratory: negative Gastrointestinal: Nausea : negative Musculoskeletal: negative Skin: negative Neurologic: negative Psych: Anxiety PFSH All Active Problems (Updated 10/26/22 @ 00:47 by Zeb Mcguire MD) COVID (Acute) COVID (Acute) Dysuria (Acute) Depression (Chronic) Situational anxiety (Acute) Vomiting (Acute) Drug-induced nausea and vomiting (Acute) Dizziness (Acute) Nausea and vomiting (Acute) Constipation (Acute) Medication adverse effect (Acute) Hyperplastic colon polyp (Acute) Rectal polyp (Acute) Chronic kidney disease, stage 1 (Chronic 12/31/16) from renal infection as a child elevated BP resulting 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 Patient is using the Depo-Provera for menstrual cycle control. Depression (12/31/16) Drug abuse, episodic use Dysuria Family history of colon cancer Fatigue Generalized headaches (12/31/16) Hemolytic uremic syndrome History of allergic reaction History of mastoiditis Hypertrophy of tonsils and adenoids Illiteracy Per caregiver she is able to read and write, she needs assitance with comprehension of more complex words. Jaw pain Mesenteric lymphadenitis Otalgia, right ear Overactive bladder (02/09/18) Pain, dental PTSD (post-traumatic stress disorder) RBC microcytosis Steatosis of liver SASHA (stress urinary incontinence, female) Suicidal ideation TMJ tenderness, left Vitamin D deficiency Surgical History History of colonoscopy (~06/2022) History of kidney surgery Hx of tooth extraction Social History Smoking/Tobacco Use Status: Former Tobacco Use Smoking risk assessment performed?: Yes Alcohol Intake: former Drug use: Current Sobriety Substance use type: marijuana Sexually active: Yes (female partner only now(May 2022). Has never had intercourse) Do you think of yourself as: lesbian/cash/homosexual What is your relationship status?: never Panel score (0-1 are the most socially isolated patients): 0 Do you feel safe at home: Yes Do you feel safe in your relationship?: Yes Additional Social history: lives alone - states she feels sad when she is alone Female Reproductive History Menstrual control method: progesterone injection History History 0 Para Hx # Term Pregnancies Multiple births Hx # Pregnancies Ectopic pregnancies AB induced Hx Number of Living Children AB spontaneous Exam Narrative Exam Narrative: Physical Examination General: alert, awake, cooperative, resting comfortably, no acute distress HEENT: normocephalic, atraumatic; PERRL, EOM intact, conjunctiva normal; no nasal discharge; moist mucous membranes, oral and pharyngeal mucosa normal, tolerating secretions Neck: supple, trachea midline; full ROM Chest: normal to inspection Respiratory: normal respiratory effort, speaking in full sentences, clear to auscultation, no wheezing, rales or rhonchi Cardiac: regular rate, regular rhythm, S1S2 intact, no murmurs rubs or gallops GI: abdomen soft, non-tender, non-distended; no palpable mass or hepatosplenomegaly Skin: no lesions, rashes or trauma appreciated Neuro: AAOx3, normal speech, moving all extremities Psych: Appropriate mood and affect Course Vital Signs Vital signs: Vital Signs Temperature 36.8 C 10/26/22 07:33 Pulse 101 H 10/26/22 07:33 Respiratory Rate 16 10/26/22 07:33 Blood Pressure 145/87 H 10/26/22 07:33 Pulse Oximetry 96 10/26/22 07:33 Temperature 36.8 C 10/26/22 07:33 Temperature Source Skin 10/26/22 07:33 Pulse 101 H 10/26/22 07:33 Respiratory Rate 16 10/26/22 07:42 Respiratory Effort 10/26/22 07:42 Respiratory Depth Normal 10/26/22 07:42 Respiratory Pattern Normal 10/26/22 07:42 Blood Pressure 145/87 H 10/26/22 07:33 Blood Pressure Position Supine 10/26/22 07:33 Pulse Oximetry 96 10/26/22 07:33 Oxygen Delivery Method Room Air 10/26/22 07:33 Oxygen Flow Rate 0 10/26/22 07:33 Pain Level 0 10/26/22 07:33 Lab/Test Results Lab/Test Results: POC- Test(urine) Negative
[2022-10-26 08:00] LABS: Bacteria Rare HPF (Negative); C & S Indicated? No; Casts Negative LPF (Negative); Crystals Negative HPF (Negative); Epithelial Cells Rare HPF (Negative); Mucus Trace (Negative); RBC 0-2 HPF (0-2); WBC 0-2 HPF (0-5)
[2022-10-26] MEDS: Ondansetron O.D.T. 4 MG TABEF SL (09:05)
[2022-10-26 10:15] LABS: COVID-19 PCR Negative (Negative); Influenza A PCR Negative (Negative); Influenza B PCR Negative (Negative); RSV PCR Negative (Negative)
[2022-10-26 10:19] LABS: Source Nasopharynx
--- NOTE | 2022-10-26 10:25 | W.EDPROG ---
Date of service: 10/26/22 Time of Service: 10:26 Medical Decision Making Care was signed out by Dr. Mcguire with plan to follow-up on care management evaluation. Patient was seen by care management, they have reached out to [facility] human services. Notes he is getting human services is requesting flu test and COVID test as family members sick and concern for exposure. Flu testing was performed and COVID and influenza negative. Plan for discharge with outpatient follow-up.Getting human services will provide staffing to assist in transition to home. Disposition decision was made weighing the risks and benefits of hospitalization versus outpatient treatment, the risk for further decompensation, and the patient's wishes. The patient was stable and requested discharge. Prior to discharge, my usual and customary return precautions were reviewed with the patient - this included follow-up instructions and reason to return to the emergency department if condition worsens, does not improve as expected, or other new concerns arise. Lab Data Lab results reviewed: Yes I reviewed the patient's lab results. Labs: Laboratory Tests Range/Units 10/26/22 10/26/22 07:47 09:16 Urine Color (Yellow) Yellow Urine Clarity (Clear) Clear Urine pH (5-8) 7.0 Ur Specific [place] (1.005-1.025) 1.025 Urine Protein (Negative) mg/dL Trace H Urine Ketones (Negative) mg/dL Negative Urine Blood (Negative) Negative Urine Nitrite (Negative) Negative Urine Bilirubin (Negative) Negative Urine Urobilinogen (Up TO 0.2) EU/dL 0.2 Ur Leukocyte Esterase (Negative) Negative Urine RBC (0-2) HPF 0-2 Urine WBC (0-5) HPF 0-2 Ur Epithelial Cells (Negative) HPF Rare Urine Crystals (Negative) HPF Negative Urine Bacteria (Negative) HPF Rare Urine Casts (Negative) LPF Negative Urine Mucus (Negative) Trace Ur Culture Indicated? No Urine Glucose (Negative) mg/dL Negative COVID-19 Source Nasopharynx SARS-CoV-2 (PCR) (Negative) Negative Influenza Type A (PCR) (Negative) Negative Influenza Type B (PCR) (Negative) Negative RSV (PCR) (Negative) Negative Sign Out Sign Out Data: Sign Out Comment: nausea, recent epi pen use (lastnight, cleared and dc'd); likely anxiety reaction to social situation; consulting care management team for outpatient resources Last updated by Zeb Mcguire MD at 10/26/22 08:13 Discharge Plan Disposition Patient Disposition: Home Condition: Stable Discharge Details Clinical Impression: Anxiety, Nausea Primary Care Provider: Niyah Serna ED Provider: Dinesh Solis Home Meds and New Rx's Prescriptions: Continued melatonin 3 mg tablet 3 - 5 mg PO HS Rx Instructions: 1-2 tabs (3-6 mg) po at hs albuterol sulfate 90 mcg/actuation HFA aerosol inhaler 1 inh IH ONCE loratadine 10 mg capsule 10 mg PO DAILY labetalol 100 mg tablet 50 mg PO DAILY Digestive Advantage Prob Gummy 250 million cell tablet,chewable 250 cell PO DAILY lidocaine 3.5 % adhesive patch,medicated 1 patch topical DIRECTED medroxyprogesterone [Depo-Provera] 150 mg/mL syringe 150 mg IM every 3 months Qty: 1 5RF Rx Inst[facility]: [facility]. quetiapine [Seroquel] 25 mg tablet 25 mg PO BID epinephrine 0.3 mg/0.3 mL auto-injector 0.3 ml SC ONCE PRN (Reason: anaphylaxis) Qty: 2 0RF Rx Instructions: as a single dose; may repeat once acetaminophen 500 mg Tablet 1,000 mg PO PRN PRN clonidine HCl 0.2 mg tablet 1 tab PO HS Label Comments: TAKE ONE TABLET BY MOUTH AT BEDTIME naproxen sodium 220 mg Tablet 220 mg PO PRN PRN Discontinued cetirizine 10 mg tablet 10 mg PO DAILY Discharge Instructions Instructions: Acute Nausea and Vomiting (ED), Anxiety (ED) Additional Instructions: Please follow-up with [facility] services. Please contact your primary care physician to arrange follow-up. Return to the ER immediately for any worsening or new concerning symptoms. Referrals: [facility] [Outside] Niyah Serna [Primary Care Provider] -
== END 2022-10-26 10:43 | disposition home or self-care (01) ==
PROVIDERS: Emergency Medicine; Emergency Provider Student in an Organized Health Care Education/Training Program; PCP Nurse Practitioner Family
DX: R11.2 Nausea with vomiting, unspecified (principal); F41.9 Anxiety disorder, unspecified; F90.9 Attention-deficit hyperactivity disorder, unspecified type; F31.81 Bipolar II disorder; F43.10 Post-traumatic stress disorder, unspecified; Z20.822 Contact with and (suspected) exposure to COVID-19
CPT/HCPCS: 81025; 87637; 93005; 99283; 81003; 81015; 93010; 99284

== ENCOUNTER 2022-10-26 15:06 | Emergency (ER) | payer MEDICAID, SELFPAY ==
[2022-10-26 15:13] VITALS: BP 130/71; PULSE 102; RESP 16; TEMP 36.4; O2SAT 97
--- NOTE | 2022-10-26 16:14 | ED.GENADUL_ITS ---
Discharge Plan Disposition Patient Disposition: Home Condition: Stable Discharge Details Clinical Impression: Nausea Primary Care Provider: Niyah Serna ED Provider: Dinesh Solis Home Meds and New Rx's Prescriptions: New ondansetron 4 mg film 4 mg PO Q8H PRNQty: 15 0RF Continued melatonin 3 mg tablet 3 - 5 mg PO HS Rx Instructions: 1-2 tabs (3-6 mg) po at hs albuterol sulfate 90 mcg/actuation HFA aerosol inhaler 1 inh IH ONCE loratadine 10 mg capsule 10 mg PO DAILY labetalol 100 mg tablet 50 mg PO DAILY Digestive Advantage Prob Gummy 250 million cell tablet,chewable 250 cell PO DAILY lidocaine 3.5 % adhesive patch,medicated 1 patch topical DIRECTED medroxyprogesterone [Depo-Provera] 150 mg/mL syringe 150 mg IM every 3 months Qty: 1 5RF Rx Instructions: bring syringe to [facility] for administration. quetiapine [Seroquel] 25 mg tablet 25 mg PO BID epinephrine 0.3 mg/0.3 mL auto-injector 0.3 ml SC ONCE PRN (Reason: anaphylaxis) Qty: 2 0RF Rx Instructions: as a single dose; may repeat once acetaminophen 500 mg Tablet 1,000 mg PO PRN PRN clonidine HCl 0.2 mg tablet 1 tab PO HS Label Comments: TAKE ONE TABLET BY MOUTH AT BEDTIME naproxen sodium 220 mg Tablet 220 mg PO PRN PRN No Action ondansetron 4 mg tablet,disintegrating 4 mg PO Q8H PRNQty: 14 0RF Discharge Instructions Instructions: Acute Nausea and Vomiting (ED) Additional Instructions: Allow for bowel rest today. Drink small amounts of clear fluid frequently to stay hydrated. Tomorrow you may advance your diet slowly to bland foods like rice. You may advance her diet further the following day as tolerated. Please contact your primary care physician to arrange follow-up. Return to the ER immediately for any worsening or new concerning symptoms. Referrals: Niyah Serna [Primary Care Provider] - Discharge Data Discharge Date/Time-TO BE ENTERED AT DEPARTURE: 10/26/22 17:04 Medical Decision Making 27-year-old female who was here in the Emergency Department yesterday for a llergic reaction and then nausea, returns with persistent nausea after eating a large meal. Patient was given ondansetron and observed and had no recurrent vomiting. Plan for discharge with outpatient follow-up. Patient stable at time of discharge. Usual customary discharge instructions reviewed with the patient. HPI General Mode of arrival: ambulatory . Date/Time Provider Initiated Documentation: 10/26/22 15:16 . Limitations to Documentation: no limitations . Information obtained by: patient . HPI Narrative: 27-year-old female presents with chief complaint of nausea. Patient was seen here last night for questionable allergic reaction and nausea and discharged this morning. She went home and had a [employer] meatball Parmesan and her nausea worsened. She returns with continued nausea that is moderate with no modifiers. She has no associate abdominal pain. No rash. Related Data Home Medications Medication Instructions Recorded Confirmed acetaminophen 500 mg tablet 1,000 mg PO PRN PRN 10/30/19 10/28/22 albuterol sulfate 90 mcg/actuation 1 inh inhalation ONCE 05/13/20 10/28/22 aerosol inhaler loratadine 10 mg capsule 10 mg PO DAILY 07/31/20 10/28/22 medroxyprogesterone 150 mg/mL 150 mg IM every 3 months #1 SYRG 09/21/21 10/28/22 intramuscular syringe (Depo-Provera) Bacillus coagulans 250 million 250 cell PO DAILY 09/25/21 10/28/22 cell chewable tablet (Digestive Advantage Probiotic Gummy) labetalol 100 mg tablet 50 mg PO DAILY 09/25/21 10/28/22 melatonin 3 mg tablet 3 - 5 mg PO HS 09/25/21 10/28/22 quetiapine 25 mg tablet (Seroquel) 25 mg PO BID 01/29/22 10/28/22 lidocaine 3.5 % topical patch 1 patch topical DIRECTED 05/17/22 10/28/22 epinephrine 0.3 mg/0.3 mL 0.3 ml subcut ONCE PRN anaphylaxis 08/14/22 10/28/22 injection, auto-injector #2 ea clonidine HCl 0.2 mg tablet 1 tab PO HS 10/03/22 10/28/22 naproxen sodium 220 mg tablet 220 mg PO PRN PRN 10/03/22 10/28/22 ondansetron 4 mg oral soluble film 4 mg PO Q8H PRN #15 ea 10/26/22 10/28/22 ondansetron 4 mg disintegrating 4 mg PO Q8H PRN #14 tabs 10/28/22 tablet Previous Rx's Medication Instructions Recorded medroxyprogesterone 150 mg/mL 150 mg IM every 3 months #1 SYRG 09/21/21 intramuscular syringe (Depo-Provera) epinephrine 0.3 mg/0.3 mL 0.3 ml subcut ONCE PRN anaphylaxis 08/14/22 injection, auto-injector #2 ea ondansetron 4 mg oral soluble film 4 mg PO Q8H PRN #15 ea 10/26/22 ondansetron 4 mg disintegrating 4 mg PO Q8H PRN #14 tabs 10/28/22 tablet Allergies Allergy/AdvReac Type Severity Reaction Status Date / Time fluticasone Allergy Severe unknown Verified 10/28/22 19:46 [From Flovent HFA] lisinopril Allergy Intermediate unknown Verified 10/28/22 19:46 paroxetine HCl [From Paxil] Allergy Intermediate Hives Verified 10/28/22 19:46 polyethylene glycol 3350 Allergy Intermediate unknown Verified 10/28/22 19:46 [From Miralax] risperidone [From Risperdal] Allergy Intermediate Hives Verified 10/28/22 19:46 NSAIDS (Non-Steroidal Allergy Due to Verified 10/28/22 19:46 Anti-Inflamma prior kidney damage acetaminophen AdvReac Nausea Unverified 10/28/22 19:46 amoxicillin AdvReac Nausea Verified 10/28/22 19:46 seafood Allergy Intermediate unknown Uncoded 10/28/22 19:46 enviornmental Allergy Mild sneezing Uncoded 10/28/22 19:46 General Stated Complaint: Nausea/Vomit/Diar MARY KAY: 4 PFSH All Active Problems COVID (Acute) COVID (Acute) Dysuria (Acute) Depression (Chronic) Situational anxiety (Acute) Vomiting (Acute) Drug-induced nausea and vomiting (Acute) Dizziness (Acute) Nausea and vomiting (Acute) Constipation (Acute) Medication adverse effect (Acute) Anxiety (Chronic) Nausea (Acute) Nausea (Acute) Nausea (Acute) Hyperplastic colon polyp (Acute) Rectal polyp (Acute) Chronic kidney disease, stage 1 (Chronic 12/31/16) from renal infection as a child elevated BP resulting 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 Patient is using the Depo- Provera for menstrual cycle control. Depression (12/31/16) Drug abuse, episodic use Dysuria Family history of colon cancer Fatigue Generalized headaches (12/31/16) Hemolytic uremic syndrome History of allergic reaction History of mastoiditis Hypertrophy of tonsils and adenoids Illiteracy Per caregiver she is able to read and write, she needs assitance with comprehension of more complex words. Jaw pain Mesenteric lymphadenitis Otalgia, right ear Overactive bladder (02/09/18) Pain, dental PTSD (post-traumatic stress disorder) RBC microcytosis Steatosis of liver SASHA (stress urinary incontinence, female) Suicidal ideation TMJ tenderness, left Vitamin D deficiency Surgical History History of colonoscopy (~06/2022) History of kidney surgery Hx of tooth extraction Social History Smoking/Tobacco Use Status: Former Tobacco Use Smoking risk assessment performed?: Yes Alcohol Intake: former Drug use: Current Sobriety Substance use type: marijuana Sexually active: Yes (female partner only now(May 2022). Has never had intercourse) Do you think of yourself as: lesbian/cash/homosexual What is your relationship status?: never Panel score (0-1 are the most socially isolated patients): 0 Do you feel safe at home: Yes Do you feel safe in your relationship?: Yes Additional Social history: lives alone - states she feels sad when she is alone Female Reproductive History Menstrual control method: progesterone injection History History 0 Para Hx # Term Pregnancies Multiple births Hx # Pregnancies Ectopic pregnancies AB induced Hx Number of Living Children AB spontaneous Exam Const General: cooperative and no acute distress HENMT Mouth: moist mucous membranes Eyes Conjunctivae: normal conjunctivae Sclera: normal sclerae Resp Auscultation: clear to auscultation bilaterally, no rales, no rhonchi and no wheezes Cardio Rate: regular rate and not tachycardic Rhythm: regular rhythm GI Palpation: soft, not firm, no guarding, no masses, not rigid and nontender Auscultation: normal bowel sounds Skin General skin exam: no rashes or lesions noted Neuro General: patient alert, patient awake and tone normal Extrem General: no edema Psych Appearance: grossly normal Mental Status: mental status grossly normal Course Vital Signs Vital signs: Vital Signs Temperature 36.4 C L 10/26/22 15:13 Pulse 102 H 10/26/22 15:13 Respiratory Rate 16 10/26/22 15:13 Blood Pressure 130/71 10/26/22 15:13 Pulse Oximetry 97 10/26/22 15:13 Temperature 36.4 C L 10/26/22 15:13 Temperature Source Skin 10/26/22 15:13 Pulse 102 H 10/26/22 15:13 Respiratory Rate 16 10/26/22 15:13 Respiratory Effort 10/26/22 15:17 Blood Pressure 130/71 10/26/22 15:13 Blood Pressure Position Sitting 10/26/22 15:13 Pulse Oximetry 97 10/26/22 15:13 Oxygen Delivery Method Room Air 10/26/22 15:13 Oxygen Flow Rate 0 10/26/22 15:13 Pain Level 0 10/26/22 15:13
[2022-10-26] MEDS: Ondansetron O.D.T. 4 MG TABEF PO (16:21)
== END 2022-10-26 17:04 | disposition home or self-care (01) ==
PROVIDERS: Emergency Provider Student in an Organized Health Care Education/Training Program; PCP Nurse Practitioner Family
DX: R11.0 Nausea (principal)
CPT/HCPCS: 99283

== ENCOUNTER 2022-10-26 19:32 | Emergency (ER) | payer MEDICAID, SELFPAY ==
--- NOTE | 2022-10-26 19:30 | RT.EKG_ITS ---
APPROVED REPORT Exam: Resting ECG Reason for Exam: chest pain Patient Location: E HR:90 bpm ECG Measurements Heart Rate 90 AXIS MA 134 P 31 QRSd 85 QRS 20 QT 341 T 12 QTc 418 Conclusion Sinus rhythm...normal P axis, V-rate 60- 99
[2022-10-26 19:32] VITALS: BP 127/99; PULSE 109; RESP 16; TEMP 36.9; O2SAT 96
[2022-10-26 20:24] VITALS: RESP 16
[2022-10-26 20:58] VITALS: BP 125/80; PULSE 98; TEMP 37; O2SAT 98
--- NOTE | 2022-10-26 21:05 | ED.GENADUL_ITS ---
Discharge Plan Disposition Patient Disposition: Home Condition: Stable Discharge Details Clinical Impression: Nausea Primary Care Provider: Niyah Serna ED Provider: Miguel May Home Meds and New Rx's Prescriptions: Continued melatonin 3 mg tablet 3 - 5 mg PO HS Rx Instructions: 1-2 tabs (3-6 mg) po at hs albuterol sulfate 90 mcg/actuation HFA aerosol inhaler 1 inh IH ONCE loratadine 10 mg capsule 10 mg PO DAILY labetalol 100 mg tablet 50 mg PO DAILY Digestive Advantage Prob Gummy 250 million cell tablet,chewable 250 cell PO DAILY lidocaine 3.5 % adhesive patch,medicated 1 patch topical DIRECTED medroxyprogesterone [Depo-Provera] 150 mg/mL syringe 150 mg IM every 3 months Qty: 1 5RF Rx Instructions: bring syringe to [facility]. quetiapine [Seroquel] 25 mg tablet 25 mg PO BID epinephrine 0.3 mg/0.3 mL auto-injector 0.3 ml SC ONCE PRN (Reason: anaphylaxis) Qty: 2 0RF Rx Instructions: as a single dose; may repeat once ondansetron 4 mg film 4 mg PO Q8H PRNQty: 15 0RF acetaminophen 500 mg Tablet 1,000 mg PO PRN PRN clonidine HCl 0.2 mg tablet 1 tab PO HS Label Comments: TAKE ONE TABLET BY MOUTH AT BEDTIME naproxen sodium 220 mg Tablet 220 mg PO PRN PRN Discharge Instructions Instructions: Acute Nausea and Vomiting (ED) Additional Instructions: Follow up with your primary care provider within 1 week if you have fevers, difficulty breathing or feel more ill return to the emergency department Medical Decision Making 27 yo female with hx of depression, anxiety, who has been seen multiple times the last few days for nausea/vomiting comes in with continued complaints of nausea. She denies fevers, chills. She states when she tries to drink liquids she spits it out and can't hold it down. She had a few seconds of chest burning after an episode of this earlier, denies any pain now and never had any abdominal pain. She is caox4 speaking clearly in no distress. Has moist mucous membranes, no jvd, clear lung sounds, no murmurs, soft nontender abdomen. She has had multiple labs done already and do not feel ct of her chest indicated. Her ekg is unremarkable and unchanged, given a few seconds of chest burning with an episode of vomiting do not feel acs workup indicated. Discussed with pt that she doesn't seem dehydrated at this time and do not feel she requires iv fluids. she has no abdominal tenderness to make surgical pathology such as appendicitis, sbo or cholecystitis likely so do not feel ct abodmen indicated. will po challenge pt tolerating po, still no abdominal tenderness. Denies si/hi Stable for d/c, advised to f/u with pcp and return precautions given Differential Diagnosis Differential Diagnosis: food illness, anxiety Medical Records Medical records reviewed: Yes I reviewed the patient's medical records. ECG Data Attestation: I personally reviewed and interpreted this ECG (s) as follows: Prior ECG tracings: available for review Interpretation: sinus, rate of 90, no acute st t wave ischemic findings HPI General Mode of arrival: ambulatory . Date/Time Provider Initiated Documentation: 10/26/22 20:20 . Limitations to Documentation: no limitations . Information obtained by: patient . History of Present Illness 27 year old F presents to the emergency department with the chief complaint of nausea, described as moderate, Patient started experiencing this day(s) (3) and it has been intermittent. No relieving factors improve symptom(s), No exacerbating factors reported . Patient did receive the following treatments prior to arrival, none Related Data Home Medications Medication Instructions Recorded Confirmed acetaminophen 500 mg tablet 1,000 mg PO PRN PRN 10/30/19 10/26/22 albuterol sulfate 90 mcg/actuation 1 inh inhalation ONCE 05/13/20 10/26/22 aerosol inhaler loratadine 10 mg capsule 10 mg PO DAILY 07/31/20 10/26/22 medroxyprogesterone 150 mg/mL 150 mg IM every 3 months #1 SYRG 09/21/21 10/26/22 intramuscular syringe (Depo-Provera) Bacillus coagulans 250 million 250 cell PO DAILY 09/25/21 10/26/22 cell chewable tablet (Digestive Advantage Probiotic Gummy) labetalol 100 mg tablet 50 mg PO DAILY 09/25/21 10/26/22 melatonin 3 mg tablet 3 - 5 mg PO HS 09/25/21 10/26/22 quetiapine 25 mg tablet (Seroquel) 25 mg PO BID 01/29/22 10/26/22 lidocaine 3.5 % topical patch 1 patch topical DIRECTED 05/17/22 10/26/22 epinephrine 0.3 mg/0.3 mL 0.3 ml subcut ONCE PRN anaphylaxis 08/14/22 10/26/22 injection, auto-injector #2 ea clonidine HCl 0.2 mg tablet 1 tab PO HS 10/03/22 10/26/22 naproxen sodium 220 mg tablet 220 mg PO PRN PRN 10/03/22 10/26/22 ondansetron 4 mg oral soluble film 4 mg PO Q8H PRN #15 ea 10/26/22 10/26/22 Previous Rx's Medication Instructions Recorded medroxyprogesterone 150 mg/mL 150 mg IM every 3 months #1 SYRG 09/21/21 intramuscular syringe (Depo-Provera) epinephrine 0.3 mg/0.3 mL 0.3 ml subcut ONCE PRN anaphylaxis 08/14/22 injection, auto-injector #2 ea ondansetron 4 mg oral soluble film 4 mg PO Q8H PRN #15 ea 10/26/22 Allergies Allergy/AdvReac Type Severity Reaction Status Date / Time fluticasone Allergy Severe unknown Verified 10/26/22 19:38 [From Flovent HFA] lisinopril Allergy Intermediate unknown Verified 10/26/22 19:38 paroxetine HCl [From Paxil] Allergy Intermediate Hives Verified 10/26/22 19:38 polyethylene glycol 3350 Allergy Intermediate unknown Verified 10/26/22 19:38 [From Miralax] risperidone [From Risperdal] Allergy Intermediate Hives Verified 10/26/22 19:38 NSAIDS (Non-Steroidal Allergy Due to Verified 10/26/22 19:38 Anti-Inflamma prior kidney damage acetaminophen AdvReac Nausea Unverified 10/26/22 19:38 amoxicillin AdvReac Nausea Verified 10/26/22 19:38 seafood Allergy Intermediate unknown Uncoded 10/26/22 19:38 enviornmental Allergy Mild sneezing Uncoded 10/26/22 19:38 General Stated Complaint: Chest Pain MARY KAY: 3 Review of Systems All systems reviewed & are unremarkable except as noted in HPI and below Constitutional Constitutional: Denies chills, Denies fever(s) and Denies weakness Eyes Eyes: Denies loss of vision Cardiovascular Cardiovascular: Denies dyspnea Respiratory Respiratory: Denies cough and Denies dyspnea Gastrointestinal Gastrointestinal: Denies abdominal pain Musculoskeletal Musculoskeletal: Denies joint swelling Neurologic Neurologic: Denies loss of vision and Denies weakness PFSH All Active Problems (Updated 10/26/22 @ 21:19 by Miguel May MD) COVID (Acute) COVID (Acute) Dysuria (Acute) Depression (Chronic) Situational anxiety (Acute) Vomiting (Acute) Drug-induced nausea and vomiting (Acute) Dizziness (Acute) Nausea and vomiting (Acute) Constipation (Acute) Medication adverse effect (Acute) Anxiety (Chronic) Nausea (Acute) Nausea (Acute) Nausea (Acute) Hyperplastic colon polyp (Acute) Rectal polyp (Acute) Chronic kidney disease, stage 1 (Chronic 12/31/16) from renal infection as a child elevated BP resulting 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 Patient is using the Depo- Provera for menstrual cycle control. Depression (12/31/16) Drug abuse, episodic use Dysuria Family history of colon cancer Fatigue Generalized headaches (12/31/16) Hemolytic uremic syndrome History of allergic reaction History of mastoiditis Hypertrophy of tonsils and adenoids Illiteracy Per caregiver she is able to read and write, she needs assitance with comprehension of more complex words. Jaw pain Mesenteric lymphadenitis Otalgia, right ear Overactive bladder (02/09/18) Pain, dental PTSD (post-traumatic stress disorder) RBC microcytosis Steatosis of liver SASHA (stress urinary incontinence, female) Suicidal ideation TMJ tenderness, left Vitamin D deficiency Surgical History History of colonoscopy (~06/2022) History of kidney surgery Hx of tooth extraction Social History Smoking/Tobacco Use Status: Former Tobacco Use Smoking risk assessment performed?: Yes Alcohol Intake: former Drug use: Current Sobriety Substance use type: marijuana Sexually active: Yes (female partner only now(May 2022). Has never had intercourse) Do you think of yourself as: lesbian/cash/homosexual What is your relationship status?: never Panel score (0-1 are the most socially isolated patients): 0 Do you feel safe at home: Yes Do you feel safe in your relationship?: Yes Additional Social history: lives alone - states she feels sad when she is alone Female Reproductive History Menstrual control method: progesterone injection History History 0 Para Hx # Term Pregnancies Multiple births Hx # Pregnancies Ectopic pregnancies AB induced Hx Number of Living Children AB spontaneous Exam Const General: no acute distress Orientation: alert HENMT Head: normal to inspection Ears: external ears normal General nose exam: external nose normal Mouth: moist mucous membranes Eyes General: appearance normal, both eyes and all related structures Neck Neck: normal visual inspection Resp Effort & Inspection: normal respiratory effort and able to speak in complete sentences Auscultation: clear to auscultation bilaterally Cardio Rate: regular rate Heart Sounds: no murmurs GI Palpation: soft and nontender Skin General skin exam: no rashes or lesions noted Neuro General: patient alert and patient oriented x3 Extrem General: normal to inspection Psych Mental Status: mental status grossly normal Course Vital Signs Vital signs: Vital Signs Temperature 36.9 C 10/26/22 19:32 Pulse 109 H 10/26/22 19:32 Respiratory Rate 16 10/26/22 19:32 Blood Pressure 127/99 H 10/26/22 19:32 Pulse Oximetry 96 10/26/22 19:32 Temperature 37.0 C 10/26/22 20:58 Temperature Source Tympanic 10/26/22 20:58 Pulse 98 H 10/26/22 20:58 Respiratory Rate 16 10/26/22 20:24 Respiratory Effort Non-Labored 10/26/22 20:24 Respiratory Depth Normal 10/26/22 20:24 Respiratory Pattern Normal 10/26/22 20:24 Blood Pressure 125/80 10/26/22 20:58 Blood Pressure Position Sitting 10/26/22 19:32 Pulse Oximetry 98 10/26/22 20:58 Oxygen Delivery Method Room Air 10/26/22 20:58 Oxygen Flow Rate 0 10/26/22 20:58 Pain Level 6 10/26/22 20:58
[2022-10-26] MEDS: Ondansetron O.D.T. 4 MG TABEF 8 MG PO (21:09)
== END 2022-10-26 21:33 | disposition home or self-care (01) ==
PROVIDERS: Emergency Provider Emergency Medicine; PCP Nurse Practitioner Family
DX: R11.0 Nausea (principal); Z87.19 Personal history of other diseases of the digestive system; Z98.890 Other specified postprocedural states
CPT/HCPCS: 93005; 99283; 93010; 99284

== ENCOUNTER 2022-10-28 19:28 | Emergency (ER) | payer MEDICAID, SELFPAY ==
[2022-10-28 19:41] VITALS: BP 132/93; PULSE 103; RESP 16; TEMP 37; O2SAT 98
[2022-10-28 22:00] LABS: Bilirubin Negative (Negative); Blood Negative (Negative); Clarity Clear (Clear); Glucose Negative (Negative); Ketones Negative (Negative); Leukocyte Esterase Negative (Negative); Nitrite Negative (Negative); Specific Gravity 1.025 (1.005-1.025); Urobilinogen 0.2 EU/dL (Up TO 0.2)
[2022-10-28] MEDS: Normal Saline 1,000 ML 1000 ML IV (22:05)
[2022-10-28] MEDS: Ondansetron 4 MG/2 ML VIAL IVP (22:05)
[2022-10-28 22:11] LABS: Abs Immature Grans 0.04 10^3/uL (0.0-0.06); Absolute Basophil Count 0.04 10^3/uL (0.0-0.2); Absolute Lymphocyte Count 2.12 10^3/uL (1.2-3.4); Absolute Monocyte Count 0.95 10^3/uL (0.1-0.8); Basophils % 0.3; Eosinophils % 1.1; HCT 37.2 % (36.0-46.0); Immature Grans % 0.3; Lymphocytes % 17.4; MCH 24.6 pg (27.0-33.0); MCHC 32.3 % (32.0-36.0); MCV 76 fL (80-95); Monocytes % 7.8; Neutrophils % 73.1; Platelet Count 268 10^3/uL (130-400); RBC 4.87 10^6/uL (3.93-5.22); RDW 14.9 % (11.7-14.6); RDW-SD 41.3 fL; WBC 12.21 10^3/uL (4.4-10.8)
[2022-10-28 22:12] LABS: Absolute Eosinophil Count 0.13 10^3/uL (0.0-0.7); Absolute Neutrophil Count 8.93 10^3/uL (1.2-6.7)
[2022-10-28 22:13] LABS: RBC 0-2 HPF (0-2); WBC 0-2 HPF (0-5)
[2022-10-28 22:14] LABS: Bacteria Rare HPF (Negative); C & S Indicated? No; Crystals Rare Amorphous HPF (Negative); Epithelial Cells Few HPF (Negative); Mucus Trace (Negative)
[2022-10-28 22:25] LABS: ALT 22 U/L (14-59); AST 15 U/L (15-37); Alkaline Phosphatase 91 U/L (46-116); Anion Gap 9.8 mmol/L (3-11); BUN 10 mg/dL (7-18); Bilirubin, Total 0.4 mg/dL (0.2-1.0); CO2 25.2 mmol/L (21.0-32.0); CREATININE 0.9 mg/dL (0.55-1.02); Calcium 9.1 mg/dL (8.5-10.1); Chloride 103 mmol/L (98-107); Estimated GFR 90.98 (mL/min/1.73m2); Glucose 96 mg/dL (74-106); Lipase 55 U/L (73-393); Magnesium 2.1 mg/dL (1.8-2.4); Potassium 3.4 mmol/L (3.5-5.1); Sodium 138 mmol/L (136-145); Total Protein 7.7 g/dL (6.4-8.2)
[2022-10-28] MEDS: Potassium Chloride 10 MEQ TABCR PO (22:40)
--- NOTE | 2022-10-28 22:45 | ED.GENADUL_ITS ---
Discharge Plan Disposition Patient Disposition: Home Condition: Improving Discharge Details Clinical Impression: Nausea and vomiting, Anxiety Primary Care Provider: Niyah Serna ED Provider: Kenton Irene Home Meds and New Rx's Prescriptions: New ondansetron 4 mg tablet,disintegrating 4 mg PO Q8H PRNQty: 14 0RF Continued melatonin 3 mg tablet 3 - 5 mg PO HS Rx Instructions: 1-2 tabs (3-6 mg) po at hs albuterol sulfate 90 mcg/actuation HFA aerosol inhaler 1 inh IH ONCE loratadine 10 mg capsule 10 mg PO DAILY labetalol 100 mg tablet 50 mg PO DAILY Digestive Advantage Prob Gummy 250 million cell tablet,chewable 250 cell PO DAILY lidocaine 3.5 % adhesive patch,medicated 1 patch topical DIRECTED medroxyprogesterone [Depo-Provera] 150 mg/mL syringe 150 mg IM every 3 months Qty: 1 5RF Rx Instructions: [facility] quetiapine [Seroquel] 25 mg tablet 25 mg PO BID epinephrine 0.3 mg/0.3 mL auto-injector 0.3 ml SC ONCE PRN (Reason: anaphylaxis) Qty: 2 0RF Rx Instructions: as a single dose; may repeat once ondansetron 4 mg film 4 mg PO Q8H PRNQty: 15 0RF acetaminophen 500 mg Tablet 1,000 mg PO PRN PRN clonidine HCl 0.2 mg tablet 1 tab PO HS Label Comments: TAKE ONE TABLET BY MOUTH AT BEDTIME naproxen sodium 220 mg Tablet 220 mg PO PRN PRN Discharge Instructions Instructions: Acute Nausea and Vomiting (ED), Anxiety (ED) Additional Instructions: At this time your labs are reassuring and I do not feel there are any emergent conditions present. I do feel that your symptoms may be secondary to your anxiety and the recent stop of your fluoxetine. Please continue to stay well- hydrated and slowly advance your diet as tolerated. Follow-up with your primary care provider for reassessment of your ongoing nausea and vomiting. Referrals: Niyah Serna [Primary Care Provider] - 1 week (Please follow-up with your primary care provider for reassessment) Discharge Data Discharge Date/Time-TO BE ENTERED AT DEPARTURE: 10/28/22 23:11 Medical Decision Making Patient presenting to the emergency department for chief complaint of nausea vomiting. Patient states this is similar to previous episodes. States that Zofran has been helping but once Zofran wears off her symptoms come back. She states diffuse nonfocal abdominal pain otherwise denies fever chills urinary or vaginal symptoms. Physical exam shows well-appearing anxious patient with nonfocal abdominal tenderness otherwise unremarkable exam. Given that patient states that she has been vomiting for 5 days I am concerned about potential electrolyte abnormalities but also highly suspicious of anxiety being root cause of symptoms. We will plan on checking patient's labs and giving patient Zofran and IV fluids pending results. Of notation patient does state that she stopped fluoxetine last week and she somewhat attributes her symptoms to that. This may be secondary again to anxiety versus medication withdrawal. Reviewed labs and patient has mild elevation of WBCs neutrophils and monocytes which may be secondary again to patient's vomiting but I doubt acute bacterial infection. CMP overall is unremarkable except for potassium of 3.4 which will give oral potassium to replete. Urinalysis is unremarkable and no signs of infection. Patient reassessed and does state improvement of symptoms and denies any further pain or discomfort. We will plan on discharging patient and recommending patient to follow-up with primary care provider given multiple ER visits for similar symptoms with benign emergent work-ups. Patient may need further investigation of her symptoms. After discussion of diagnosis and plan of care patient has no further needs, questions, or concerns and states clear understanding to return to the emergency department for any worsening symptoms. This documentation was generated using [employer] dictation system, please disregard any oddities of phrase or misspellings. HPI General Mode of arrival: EMS . Date/Time Provider Initiated Documentation: 10/28/22 19:37 . Limitations to Documentation: no limitations . Information obtained by: patient, RN notes reviewed and old records reviewed . History of Present Illness 27 year old F presents to the emergency department with the chief complaint of Nausea vomiting anxiety, described as moderate and similar to prior episodes, with intensity rated at 7. Quality is described as aching, and is localized to the abdomen. Patient reports no radiation. Patient started experiencing this day(s) (5) and it has been constant. Medication improves symptom(s), (Zofran) Medication worsens symptoms (Stopped fluoxetine last week) . Patient notes denies fever/chills and loss of appetite. Patient did receive the following treatments prior to arrival, none Related Data Home Medications Medication Instructions Recorded Confirmed acetaminophen 500 mg tablet 1,000 mg PO PRN PRN 10/30/19 10/28/22 albuterol sulfate 90 mcg/actuation 1 inh inhalation ONCE 05/13/20 10/28/22 aerosol inhaler loratadine 10 mg capsule 10 mg PO DAILY 07/31/20 10/28/22 medroxyprogesterone 150 mg/mL 150 mg IM every 3 months #1 SYRG 09/21/21 10/28/22 intramuscular syringe (Depo-Provera) Bacillus coagulans 250 million 250 cell PO DAILY 09/25/21 10/28/22 cell chewable tablet (Digestive Advantage Probiotic Gummy) labetalol 100 mg tablet 50 mg PO DAILY 09/25/21 10/28/22 melatonin 3 mg tablet 3 - 5 mg PO HS 09/25/21 10/28/22 quetiapine 25 mg tablet (Seroquel) 25 mg PO BID 01/29/22 10/28/22 lidocaine 3.5 % topical patch 1 patch topical DIRECTED 05/17/22 10/28/22 epinephrine 0.3 mg/0.3 mL 0.3 ml subcut ONCE PRN anaphylaxis 08/14/22 10/28/22 injection, auto-injector #2 ea clonidine HCl 0.2 mg tablet 1 tab PO HS 10/03/22 10/28/22 naproxen sodium 220 mg tablet 220 mg PO PRN PRN 10/03/22 10/28/22 ondansetron 4 mg oral soluble film 4 mg PO Q8H PRN #15 ea 10/26/22 10/28/22 ondansetron 4 mg disintegrating 4 mg PO Q8H PRN #14 tabs 10/28/22 tablet Previous Rx's Medication Instructions Recorded medroxyprogesterone 150 mg/mL 150 mg IM every 3 months #1 SYRG 09/21/21 intramuscular syringe (Depo-Provera) epinephrine 0.3 mg/0.3 mL 0.3 ml subcut ONCE PRN anaphylaxis 08/14/22 injection, auto-injector #2 ea ondansetron 4 mg oral soluble film 4 mg PO Q8H PRN #15 ea 10/26/22 ondansetron 4 mg disintegrating 4 mg PO Q8H PRN #14 tabs 10/28/22 tablet Allergies Allergy/AdvReac Type Severity Reaction Status Date / Time fluticasone Allergy Severe unknown Verified 10/28/22 19:46 [From Flovent HFA] lisinopril Allergy Intermediate unknown Verified 10/28/22 19:46 paroxetine HCl [From Paxil] Allergy Intermediate Hives Verified 10/28/22 19:46 polyethylene glycol 3350 Allergy Intermediate unknown Verified 10/28/22 19:46 [From Miralax] risperidone [From Risperdal] Allergy Intermediate Hives Verified 10/28/22 19:46 NSAIDS (Non-Steroidal Allergy Due to Verified 10/28/22 19:46 Anti-Inflamma prior kidney damage acetaminophen AdvReac Nausea Unverified 10/28/22 19:46 amoxicillin AdvReac Nausea Verified 10/28/22 19:46 seafood Allergy Intermediate unknown Uncoded 10/28/22 19:46 enviornmental Allergy Mild sneezing Uncoded 10/28/22 19:46 General Stated Complaint: Abd Prob MARY KAY: 3 Review of Systems Constitutional Constitutional: Denies chills, Denies fever(s) and Reports poor appetite Cardiovascular Cardiovascular: Denies chest pain and Denies dyspnea Respiratory Respiratory: Denies cough and Denies dyspnea Gastrointestinal Gastrointestinal: Reports as per HPI, Reports abdominal pain, Denies melena, Denies change in bowel habits, Denies constipation, Denies diarrhea, Reports nausea and Reports vomiting Genitourinary Genitourinary: Denies hematuria, Denies urinary incontinence, Denies urinary hesitancy and Denies urinary urgency Integumentary/Breasts Skin/Breast: Denies rash PFSH All Active Problems COVID (Acute) COVID (Acute) Dysuria (Acute) Depression (Chronic) Situational anxiety (Acute) Vomiting (Acute) Drug-induced nausea and vomiting (Acute) Dizziness (Acute) Nausea and vomiting (Acute) Constipation (Acute) Medication adverse effect (Acute) Anxiety (Chronic) Nausea (Acute) Nausea (Acute) Nausea (Acute) Hyperplastic colon polyp (Acute) Rectal polyp (Acute) Chronic kidney disease, stage 1 (Chronic 12/31/16) from renal infection as a child elevated BP resulting 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 Patient is using the Depo- Provera for menstrual cycle control. Depression (12/31/16) Drug abuse, episodic use Dysuria Family history of colon cancer Fatigue Generalized headaches (12/31/16) Hemolytic uremic syndrome History of allergic reaction History of mastoiditis Hypertrophy of tonsils and adenoids Illiteracy Per caregiver she is able to read and write, she needs assitance with comprehension of more complex words. Jaw pain Mesenteric lymphadenitis Otalgia, right ear Overactive bladder (02/09/18) Pain, dental PTSD (post-traumatic stress disorder) RBC microcytosis Steatosis of liver SASHA (stress urinary incontinence, female) Suicidal ideation TMJ tenderness, left Vitamin D deficiency Surgical History History of colonoscopy (~06/2022) History of kidney surgery Hx of tooth extraction Social History Smoking/Tobacco Use Status: Former Tobacco Use Smoking risk assessment performed?: Yes Alcohol Intake: former Drug use: Current Sobriety Substance use type: marijuana Sexually active: Yes (female partner only now(May 2022). Has never had intercourse) Do you think of yourself as: lesbian/cash/homosexual What is your relationship status?: never Panel score (0-1 are the most socially isolated patients): 0 Do you feel safe at home: Yes Do you feel safe in your relationship?: Yes Additional Social history: lives alone - states she feels sad when she is alone Female Reproductive History Menstrual control method: progesterone injection History History 0 Para Hx # Term Pregnancies Multiple births Hx # Pregnancies Ectopic pregnancies AB induced Hx Number of Living Children AB spontaneous Exam Const General: cooperative Orientation: alert, awake and oriented x3 Resp Effort & Inspection: normal respiratory effort and able to speak in complete sentences Auscultation: clear to auscultation bilaterally Cardio Rate: regular rate Rhythm: regular rhythm Heart Sounds: S1 normal and S2 normal GI Palpation: soft, no hepatosplenomegaly, not firm, no guarding, no masses, no pulsatile masses, not rigid, no splenomegaly and tender Auscultation: normal bowel sounds Back/Spine/Pelvis Back: no CVA tenderness Neuro General: patient alert, patient awake, patient oriented x3, gait normal and moves all extremities Course Vital Signs Vital signs: Vital Signs Temperature 37.0 C 10/28/22 19:41 Pulse 103 H 10/28/22 19:41 Respiratory Rate 16 10/28/22 19:41 Blood Pressure 132/93 H 10/28/22 19:41 Pulse Oximetry 98 10/28/22 19:41 Temperature 37.0 C 10/28/22 19:41 Temperature Source Temporal Artery Scan 10/28/22 19:41 Pulse 103 H 10/28/22 19:41 Respiratory Rate 16 10/28/22 19:41 Respiratory Effort 10/28/22 19:41 Blood Pressure 132/93 H 10/28/22 19:41 Blood Pressure Position Sitting 10/28/22 19:41 Pulse Oximetry 98 10/28/22 19:41 Oxygen Delivery Method Room Air 10/28/22 19:41 Oxygen Flow Rate 0 10/28/22 19:41 Pain Level 7 10/28/22 19:41 Lab/Test Results Lab/Test Results: Laboratory Tests Range/Units 10/28/22 10/28/22 10/28/22 21:50 22:05 22:05 WBC (4.4-10.8) 10^3/uL 12.21 H RBC (3.93-5.22) 10^6/uL 4.87 Hgb (11.2-15.7) g/dL 12.0 Hct (36.0-46.0) % 37.2 MCV (80-95) fL 76 L MCH (27.0-33.0) pg 24.6 L MCHC (32.0-36.0) % 32.3 RDW (11.7-14.6) % 14.9 H Plt Count (130-400) 10^3/uL 268 MPV (8.0-11.0) fL 13.0 H Immature Gran % 0.3 Neutrophils % 73.1 Lymphocytes % 17.4 Monocytes % 7.8 Eosinophils % 1.1 Basophils % 0.3 Nucleated RBC % (0.0-0.3) % 0.0 Absolute Neutrophils (1.2-6.7) 10^3/uL 8.93 H Absolute Lymphocytes (1.2-3.4) 10^3/uL 2.12 Absolute Monocytes (0.1-0.8) 10^3/uL 0.95 H Absolute Eosinophils (0.0-0.7) 10^3/uL 0.13 Absolute Basophils (0.0-0.2) 10^3/uL 0.04 Sodium (136-145) mmol/L 138 Potassium (3.5-5.1) mmol/L 3.4 L Chloride (98-107) mmol/L 103 Carbon Dioxide (21.0-32.0) mmol/L 25.2 Anion Gap (3-11) mmol/L 9.8 BUN (7-18) mg/dL 10 Creatinine (0.55-1.02) mg/dL 0.9 Est GFR (CKD-EPI 2020) (mL/min/1.73m2) 90.98 Glucose (74-106) mg/dL 96 Calcium (8.5-10.1) mg/dL 9.1 Magnesium (1.8-2.4) mg/dL 2.1 Total Bilirubin (0.2-1.0) mg/dL 0.4 AST (15-37) U/L 15 ALT (14-59) U/L 22 Alkaline Phosphatase (46-116) U/L 91 Total Protein (6.4-8.2) g/dL 7.7 Albumin (3.4-5.0) g/dL 4.0 Lipase (73-393) U/L 55 Urine Color (Yellow) Yellow Urine Clarity (Clear) Clear Urine pH (5-8) 7.0 Ur Specific [place] (1.005-1.025) 1.025 Urine Protein (Negative) mg/dL 30 H Urine Ketones (Negative) mg/dL Negative Urine Blood (Negative) Negative Urine Nitrite (Negative) Negative Urine Bilirubin (Negative) Negative Urine Urobilinogen (Up TO 0.2) EU/dL 0.2 Ur Leukocyte Esterase (Negative) Negative Urine RBC (0-2) HPF 0-2 Urine WBC (0-5) HPF 0-2 Ur Epithelial Cells (Negative) HPF Few Urine Crystals (Negative) HPF Rare Amorphous Urine Bacteria (Negative) HPF Rare Urine Mucus (Negative) Trace Ur Culture Indicated? No Urine Glucose (Negative) mg/dL Negative POC- Test(urine) Negative
[2022-10-28 23:00] VITALS: BP 128/87; PULSE 88; RESP 16; TEMP 37; O2SAT 98
== END 2022-10-28 23:11 | disposition home or self-care (01) ==
PROVIDERS: Emergency Provider Nurse Practitioner Family; PCP Nurse Practitioner Family
DX: F41.9 Anxiety disorder, unspecified (principal); R11.10 Vomiting, unspecified; F90.9 Attention-deficit hyperactivity disorder, unspecified type; D72.829 Elevated white blood cell count, unspecified
CPT/HCPCS: 36415; 80053; 81025; 83690; 96361; 96374; 99284; 81003; 81015; 83735; 85025; J2405

== ENCOUNTER 2022-11-20 16:47 | Emergency (ER) | payer MEDICAID, SELFPAY ==
[2022-11-20 16:46] VITALS: BP 147/109; PULSE 127; RESP 24; TEMP 36.9; O2SAT 98
--- NOTE | 2022-11-20 17:02 | W.ED.GENAD ---
Discharge Plan Disposition Patient Disposition: Home Condition: Improving Discharge Details Chief Complaint: PsychEval Clinical Impression: Depression Primary Care Provider: Niyah Serna ED Provider: Zeb Mcguire Home Meds and New Rx's Prescriptions: No Action melatonin 3 mg tablet 3 - 5 mg PO HS Rx Instructions: 1-2 tabs (3-6 mg) po at hs albuterol sulfate 90 mcg/actuation HFA aerosol inhaler 1 inh IH ONCE labetalol 100 mg tablet 50 mg PO DAILY Digestive Advantage Prob Gummy 250 million cell tablet,chewable 250 cell PO DAILY lidocaine 3.5 % adhesive patch,medicated 1 patch topical DIRECTED medroxyprogesterone [Depo-Provera] 150 mg/mL syringe 150 mg IM every 3 months Qty: 1 5RF Rx Instructions: [facility]. epinephrine 0.3 mg/0.3 mL auto-injector 0.3 ml SC ONCE PRN (Reason: anaphylaxis) Qty: 2 0RF Rx Instructions: as a single dose; may repeat once sertraline 25 mg tablet 50 mg PO HS acetaminophen 500 mg Tablet 1,000 mg PO PRN PRN clonidine HCl 0.2 mg tablet 1 tab PO HS Label Comments: TAKE ONE TABLET BY MOUTH AT BEDTIME naproxen sodium 220 mg Tablet 220 mg PO PRN PRN ondansetron 4 mg tablet,disintegrating 4 mg PO Q8H PRNQty: 14 0RF Discharge Instructions Instructions: Depression (ED) Additional Instructions: Please follow-up with your primary care physician. Medical Decision Making 27-year-old female history of depression, anxiety, presents with worsening depression and intermittent suicidal thoughts for the past several days, exacerbating factors include living alone, the recent of her guinea pig and the recent heart attack of her father. Patient thought about sitting in traffic to get run over however could not go through with it because she thought of her grandmother. Patient cooperative interactive normal affect. Decreasing symptomatology at this time. I do not believe the patient is a harm to herself or others. I will have [facility] human services evaluate her. The plan will be to coordinate a safety plan for safe discharge home and close follow-up. No evidence of intoxication trauma or medical condition at this time. 18: 39 patient evaluated by [facility] cleared for discharge home. Patient resting comfortably stable feeling better. Has good support system. I DDS will be transporting her home and performing evaluation and counseling as well. HPI General Date/Time Provider Initiated Documentation: 11/20/22 16:54. HPI Narrative: 27-year-old female history of anxiety, depression, presents with worsening depression and intermittent suicidal thoughts over the past several days to weeks, patient lives alone and says her anxiety and depression get worse when she spends long periods of time alone, psychosocial stressors include the recent of her guinea pig and the recent heart attack of her father. Patient had a plan to sit in traffic and get run over however she thought of her grandmother and could not go through with it. Related Data Home Medications Medication Instructions Recorded Confirmed acetaminophen 500 mg tablet 1,000 mg PO PRN PRN 10/30/19 11/20/22 albuterol sulfate 90 mcg/actuation 1 inh inhalation ONCE 05/13/20 11/20/22 aerosol inhaler Bacillus coagulans 250 million 250 cell PO DAILY 09/25/21 11/20/22 cell chewable tablet (Digestive Advantage Probiotic Gummy) labetalol 100 mg tablet 50 mg PO DAILY 09/25/21 11/20/22 melatonin 3 mg tablet 3 - 5 mg PO HS 09/25/21 11/20/22 lidocaine 3.5 % topical patch 1 patch topical DIRECTED 05/17/22 11/20/22 epinephrine 0.3 mg/0.3 mL 0.3 ml subcut ONCE PRN anaphylaxis 08/14/22 11/20/22 injection, auto-injector #2 ea clonidine HCl 0.2 mg tablet 1 tab PO HS 10/03/22 11/20/22 naproxen sodium 220 mg tablet 220 mg PO PRN PRN 10/03/22 11/20/22 ondansetron 4 mg disintegrating 4 mg PO Q8H PRN #14 tabs 10/28/22 11/20/22 tablet medroxyprogesterone 150 mg/mL 150 mg IM every 3 months #1 SYRG 11/12/22 11/20/22 intramuscular syringe (Depo-Provera) sertraline 25 mg tablet 50 mg PO HS 11/20/22 11/20/22 Previous Rx's Medication Instructions Recorded epinephrine 0.3 mg/0.3 mL 0.3 ml subcut ONCE PRN anaphylaxis 08/14/22 injection, auto-injector #2 ea ondansetron 4 mg disintegrating 4 mg PO Q8H PRN #14 tabs 10/28/22 tablet medroxyprogesterone 150 mg/mL 150 mg IM every 3 months #1 SYRG 11/12/22 intramuscular syringe (Depo-Provera) Allergies Allergy/AdvReac Type Severity Reaction Status Date / Time fluticasone Allergy Severe unknown Verified 11/20/22 16:52 [From Flovent HFA] lisinopril Allergy Intermediate unknown Verified 11/20/22 16:52 paroxetine HCl [From Paxil] Allergy Intermediate Hives Verified 11/20/22 16:52 polyethylene glycol 3350 Allergy Intermediate unknown Verified 11/20/22 16:52 [From Miralax] risperidone [From Risperdal] Allergy Intermediate Hives Verified 11/20/22 16:52 NSAIDS (Non-Steroidal Allergy Due to Verified 11/20/22 16:52 Anti-Inflamma prior kidney damage acetaminophen AdvReac Nausea Unverified 11/20/22 16:52 amoxicillin AdvReac Nausea Verified 11/20/22 16:52 seafood Allergy Intermediate unknown Uncoded 11/20/22 16:52 enviornmental Allergy Mild sneezing Uncoded 11/20/22 16:52 General Stated Complaint: PsychEval MARY KAY: 2 Review of Systems Narrative: Review of Systems Constitutional: negative Eyes: negative ENT: negative Cardiovascular: negative Respiratory: negative Gastrointestinal: negative : negative Musculoskeletal: negative Skin: negative Neurologic: negative Psych: Depression, SI PFSH All Active Problems (Updated 11/20/22 @ 18:40 by Zeb Mcguire MD) Depression (Chronic) COVID (Acute) COVID (Acute) Medication adverse effect (Acute) Anxiety (Chronic) Nausea (Acute) Nausea (Acute) Nausea (Acute) Hyperplastic colon polyp (Acute) Rectal polyp (Acute) Chronic kidney disease, stage 1 (Chronic 12/31/16) from renal infection as a child elevated BP resulting 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 Patient is using the Depo-Provera for menstrual cycle control. Depression (12/31/16) Drug abuse, episodic use Dysuria Family history of colon cancer Fatigue Generalized headaches (12/31/16) Hemolytic uremic syndrome History of allergic reaction History of mastoiditis Hypertrophy of tonsils and adenoids Illiteracy Per caregiver she is able to read and write, she needs assitance with comprehension of more complex words. Jaw pain Mesenteric lymphadenitis Otalgia, right ear Overactive bladder (02/09/18) Pain, dental PTSD (post-traumatic stress disorder) RBC microcytosis Steatosis of liver SASHA (stress urinary incontinence, female) Suicidal ideation TMJ tenderness, left Vitamin D deficiency Surgical History History of colonoscopy (~06/2022) History of kidney surgery Hx of tooth extraction Social History Smoking/Tobacco Use Status: Former Tobacco Use Smoking risk assessment performed?: Yes Alcohol Intake: former Drug use: Current Sobriety Substance use type: marijuana Sexually active: Yes (female partner only now(May 2022). Has never had intercourse) Do you think of yourself as: lesbian/cash/homosexual What is your relationship status?: never Panel score (0-1 are the most socially isolated patients): 0 Do you feel safe at home: Yes Do you feel safe in your relationship?: Yes Additional Social history: lives alone - states she feels sad when she is alone Female Reproductive History Menstrual control method: progesterone injection History History 0 Para Hx # Term Pregnancies Multiple births Hx # Pregnancies Ectopic pregnancies AB induced Hx Number of Living Children AB spontaneous Exam Narrative Exam Narrative: Physical Examination General: alert, awake, cooperative, resting comfortably, no acute distress HEENT: normocephalic, atraumatic; PERRL, EOM intact, conjunctiva normal; no nasal discharge; moist mucous membranes, oral and pharyngeal mucosa normal, tolerating secretions Neck: supple, trachea midline; full ROM Chest: normal to inspection Respiratory: normal respiratory effort, speaking in full sentences, clear to auscultation, no wheezing, rales or rhonchi Cardiac: regular rate, regular rhythm, S1S2 intact, no murmurs rubs or gallops GI: abdomen soft, non-tender, non-distended; no palpable mass or hepatosplenomegaly Skin: no lesions, rashes or trauma appreciated Neuro: AAOx3, normal speech, moving all extremities Psych: Depression, resolving SI Course Vital Signs Vital signs: Vital Signs Temperature 36.9 C 11/20/22 16:46 Pulse 127 H 11/20/22 16:46 Respiratory Rate 24 11/20/22 16:46 Blood Pressure 147/109 H 11/20/22 16:46 Pulse Oximetry 98 11/20/22 16:46 Temperature 36.9 C 11/20/22 16:46 Temperature Source Oral 11/20/22 16:46 Pulse 127 H 11/20/22 16:46 Respiratory Rate 24 11/20/22 16:46 Blood Pressure 147/109 H 11/20/22 16:46 Blood Pressure Position Sitting 11/20/22 16:46 Pulse Oximetry 98 11/20/22 16:46 Oxygen Delivery Method Room Air 11/20/22 16:46 Oxygen Flow Rate 0 11/20/22 16:46 Pain Level 0 11/20/22 16:46
[2022-11-20] MEDS: LORazepam 1 MG TAB PO (17:06)
--- NOTE | 2022-11-21 09:11 | PDOC.MHCN ---
Date of service: 11/21/22 Time of Service: 18:30 Mental Health Emergency Note Release [facility] release signed:: Yes Reason for Visit Shannon reports she went to [facility] due to suicidal ideation. In the last 2 weeks has the pt presented for ES prior to today?: Unknown Client Information Client is: [facility] Well Housed: Yes Non Suicidal Self Injury Current: No History: yes, Shannon has a history of self cutting. Risk: Does risk to harm exist?: No Risk: N/A Duty to warn indicated: No Asssessment/Mental Status Appearance: Unremarkable Attitude: Cooperative Behavior: Poor impulse control Speech: Normal Affect: Cogruent with mood Mood: Stressed and Anxious Thought process: Unremarkable Hallucinations: No evidence Delusions: No evidence Attention: Unremarkable Perception: Not impaired Orientation: Fully orientated Memory: Intact Insight: Poor Judgement: Poor Neurovegetative Symptoms Sleep: No change Appetitie: Decrease Interests: No change Energy: No change Libido: Not applicable Substance Use: Do you use nicotine?: No Have you used substances in the last 7 days?: No Additional Issues: Assaultive/Threatening Behavior: No Medical Concerns: No Client engaged in active self harm w/weapon: No Threatening to run away: No Child reported abuse/neglect: No Voluntarily presenting for services: Yes Domestic violence is a concern: No Extreme Psychosis or extreme behavior is present: No Impression Shannon presented to the emergency room due to suicidal ideation. Shannon reported to the doctor she had thoughts of sitting in traffice but thought of her grandmother and did not. Shannon told this hand sign writer she tried to hang herself with her shower curtain but it did not work. After talking to Shannon more, it was learned that Shannon is frustrated with her team and not having the ashes to her guinea pig which could be why she is at [facility]. This hand sign writer spoke to endodontics dentist [facility] worker Felipa prior to coming to [facility] And Felipa reported she was going to go to Shannon's house within the hour. Shannon reports she was unaware of that and did not like being alone because of her thoughts. THis hand sign writer and Shannon talked about how the hospital is for emergencies and to work on calling [facility] and [facility] ES before calling an ambulance. Shannon reported she would try. Shannon reports being safe to go home if she goes to her grandmother's house. Resources Reosurces reviewed and given:: 8 and [facility] Plan/Disposition Recommended Disposition: [facility] Services (Follow up with [facility]) [facility] Services: Other. Plan: Shannon will be discharged from [facility] and picked up by Felipa from [facility]. Felipa will then bring Shannon to her grandmother's house to spend the weekend. Person reported agreement to plan: Yes Reports/communication Outcome discussed with: ED/Personnel
== END 2022-11-20 18:48 | disposition home or self-care (01) ==
PROVIDERS: Emergency Provider Emergency Medicine; PCP Nurse Practitioner Family
DX: F32.A Depression, unspecified (principal); R45.851 Suicidal ideations
CPT/HCPCS: 99285; 99283

== ENCOUNTER 2022-11-21 18:28 | Emergency (ER) | payer MEDICAID, SELFPAY ==
[2022-11-21 18:30] VITALS: BP 153/97; PULSE 120; TEMP 37; O2SAT 97
[2022-11-21 21:43] LABS: Abs Immature Grans 0.05 10^3/uL (0.0-0.06); Absolute Basophil Count 0.05 10^3/uL (0.0-0.2); Absolute Monocyte Count 0.94 10^3/uL (0.1-0.8); Basophils % 0.4; Eosinophils % 1.6; HCT 40.9 % (36.0-46.0); HGB 12.7 g/dL (11.2-15.7); Immature Grans % 0.4; Lymphocytes % 20.2; MCH 23.8 pg (27.0-33.0); MCHC 31.1 % (32.0-36.0); MCV 77 fL (80-95); MPV 12.3 fL (8.0-11.0); Monocytes % 7.4; Platelet Count 284 10^3/uL (130-400); RBC 5.33 10^6/uL (3.93-5.22); RDW 14.9 % (11.7-14.6)
[2022-11-21 21:45] LABS: Absolute Lymphocyte Count 2.57 10^3/uL (1.2-3.4); Absolute Neutrophil Count 8.89 10^3/uL (1.2-6.7)
[2022-11-21] MEDS: Normal Saline 1,000 ML 1000 ML IV (21:45)
[2022-11-21] MEDS: Ondansetron 4 MG/2 ML VIAL IVP (21:47)
[2022-11-21 21:49] LABS: Bilirubin Negative (Negative); Blood Negative (Negative); Clarity Clear (Clear); Glucose Negative (Negative); Ketones Negative (Negative); Leukocyte Esterase Negative (Negative); Nitrite Negative (Negative); Specific Gravity >= 1.030 (1.005-1.025); Urobilinogen 0.2 EU/dL (Up TO 0.2); pH 6.5 (5-8)
[2022-11-21 21:59] LABS: Bacteria Rare HPF (Negative); C & S Indicated? No; Casts 0-2 Hyaline LPF (Negative); Crystals Negative HPF (Negative); Epithelial Cells Moderate HPF (Negative); Mucus Trace (Negative); Other Cells Rare Renal (Negative); RBC 0-2 HPF (0-2); WBC 0-2 HPF (0-5)
[2022-11-21 22:04] LABS: ALT 22 U/L (14-59); AST 16 U/L (15-37); Albumin 4.1 g/dL (3.4-5.0); Alkaline Phosphatase 85 U/L (46-116); BUN 11 mg/dL (7-18); Bilirubin, Total 0.4 mg/dL (0.2-1.0); CREATININE 0.8 mg/dL (0.55-1.02); Calcium 9.2 mg/dL (8.5-10.1); Chloride 104 mmol/L (98-107); Glucose 93 mg/dL (74-106); Lipase 57 U/L (73-393); Magnesium 2.1 mg/dL (1.8-2.4); Sodium 139 mmol/L (136-145); Total Protein 7.9 g/dL (6.4-8.2)
--- NOTE | 2022-11-21 22:39 | W.ED.GENAD ---
Discharge Plan Disposition Patient Disposition: Home Condition: Stable Discharge Details Clinical Impression: Nausea & vomiting, Anxiety Primary Care Provider: Niyah Serna ED Provider: Kenton Irene Home Meds and New Rx's Prescriptions: Continued melatonin 3 mg tablet 3 - 5 mg PO HS Rx Instructions: 1-2 tabs (3-6 mg) po at hs albuterol sulfate 90 mcg/actuation HFA aerosol inhaler 1 inh IH ONCE labetalol 100 mg tablet 50 mg PO DAILY Digestive Advantage Prob Gummy 250 million cell tablet,chewable 250 cell PO DAILY lidocaine 3.5 % adhesive patch,medicated 1 patch topical DIRECTED medroxyprogesterone [Depo-Provera] 150 mg/mL syringe 150 mg IM every 3 months Qty: 1 5RF Rx Instructions: bring syringe [facility] administration. epinephrine 0.3 mg/0.3 mL auto-injector 0.3 ml SC ONCE PRN (Reason: anaphylaxis) Qty: 2 0RF Rx Instructions: as a single dose; may repeat once sertraline 25 mg tablet 50 mg PO HS acetaminophen 500 mg Tablet 1,000 mg PO PRN PRN clonidine HCl 0.2 mg tablet 1 tab PO HS Label Comments: TAKE ONE TABLET BY MOUTH AT BEDTIME naproxen sodium 220 mg Tablet 220 mg PO PRN PRN ondansetron 4 mg tablet,disintegrating 4 mg PO Q8H PRNQty: 14 0RF Discontinued ondansetron 4 mg tablet,disintegrating 4 mg PO Q8H PRN (Reason: nausea and vomiting) Qty: 14 0RF ondansetron 4 mg tablet,disintegrating 4 mg PO Q8H PRN (Reason: nausea and vomiting) Qty: 14 0RF No Action Lactobacillus acidophilus Tablet 1 tab PO DAILY pantoprazole 40 mg Tablet,Delayed Release (Dr/Ec) 40 mg PO DAILY quetiapine 25 mg Tablet 25 mg PO QHS Discharge Instructions Instructions: Acute Nausea and Vomiting (ED) Additional Instructions: You may continue to use the provided Zofran and slowly advance your diet as tolerated. It is very importantly follow-up with your primary care provider for reassessment as your emergency department visit and work-up today again was unremarkable for life-threatening causes of your nausea vomiting. Referrals: Niyah Serna [Primary Care Provider] - 1 week Discharge Data Discharge Date/Time-TO BE ENTERED AT DEPARTURE: 11/21/22 23:07 Medical Decision Making Patient presenting to the emergency department via EMS for chief complaint of nausea vomiting. Patient states this is been going on for weeks. Patient is well-known to the emergency department and has had multiple visits for nausea with negative CT scans. Patient was just seen here yesterday for depression and did not mention any nausea or abdominal complaints at that time even though she states she still had it. She also reports history of hemorrhoids with some flareup of her hemorrhoids. Physical exam is unremarkable with no abdominal tenderness, normal active bowel sounds. As soon as patient was brought into her room she had no more vomiting but registration staff did states she was vomiting in the waiting area. staff research associate did notice patient sticking her finger down her throat to induce gagging. I did confront patient about this and she stated she has an eating disorder and has been known to gag her self. Given multiple visits with benign exam and recent CT imaging for similar complaint with patient denying any change of symptoms I do not feel that advanced imaging is needed but will plan on checking patient's labs. Pending results will give IV fluids and Zofran. Review of results show a persistent leukocytosis that is fairly unchanged from previous visits, completely unremarkable CMP, negative lipase, normal magnesium, LFTs all within normal range. Urine shows high specific gravity and protein present otherwise no signs of infection. Patient reassessed and stated improvement of symptoms. Patient was able to tolerate p.o. intake of both solid crackers and zoe krishna. We will plan on discharging patient to follow-up with primary care provider for continued nausea. We will give patient to go bottle of Zofran to help with continued symptoms. After discussion of diagnosis and plan of care patient has no further needs, questions, or concerns and states clear understanding to return to the emergency department for any worsening symptoms. This documentation was generated using [employer] dictation system, please disregard any oddities of phrase or misspellings. After patient was discharged she did tell staff she wanted to check back in for suicidality. She did not mention this at all during the visit. Discussed this further with patient and she stated significant frustration with her [facility] workers and that they have not been following throughout in her words. Discussed further patient's condition and her suicidality which after further discussion she denied suicidality and stated she was just frustrated with the agency and not feel like she was getting help. She did feel safe being discharged with transportation to her grandparents house and felt like she could safely stay there this evening. Offered patient to speak with the on-call acute psychiatric screener which she refused and did say that she could safely follow the safety plan that was established last night. Been reiterated and directly asked patient about suicidality and how safe she felt and she again denied suicidality and stated safety plan was appropriate. Patient discharged with contacting her worker that stated she would pick patient up and transport her safely to her grandparents house. HPI General Mode of arrival: EMS. Date/Time Provider Initiated Documentation: 11/21/22 19:05. Limitations to Documentation: no limitations. Information obtained by: patient, family, RN notes reviewed and old records reviewed. History of Present Illness 27 year old F presents to the emergency department with the chief complaint of Nausea vomiting belly pain, described as moderate and similar to prior episodes, with intensity rated at 6. Quality is described as aching, and is localized to the abdomen. Patient reports no radiation. Patient started experiencing this week(s) and it has been constant. No relieving factors improve symptom(s), Other factors that worsen symptoms (Stress and anxiety) . Patient did receive the following treatments prior to arrival, none Related Data Home Medications Medication Instructions Recorded Confirmed acetaminophen 500 mg tablet 1,000 mg PO PRN PRN 10/30/19 11/22/22 albuterol sulfate 90 mcg/actuation 1 inh inhalation ONCE 05/13/20 11/21/22 aerosol inhaler Bacillus coagulans 250 million 250 cell PO DAILY 09/25/21 11/21/22 cell chewable tablet (Digestive Advantage Probiotic Gummy) labetalol 100 mg tablet 50 mg PO DAILY 09/25/21 11/22/22 melatonin 3 mg tablet 3 - 5 mg PO HS 09/25/21 11/22/22 lidocaine 3.5 % topical patch 1 patch topical DIRECTED 05/17/22 11/21/22 epinephrine 0.3 mg/0.3 mL 0.3 ml subcut ONCE PRN anaphylaxis 08/14/22 11/21/22 injection, auto-injector #2 ea clonidine HCl 0.2 mg tablet 1 tab PO HS 10/03/22 11/22/22 naproxen sodium 220 mg tablet 220 mg PO PRN PRN 10/03/22 11/21/22 ondansetron 4 mg disintegrating 4 mg PO Q8H PRN #14 tabs 10/28/22 11/21/22 tablet medroxyprogesterone 150 mg/mL 150 mg IM every 3 months #1 SYRG 11/12/22 11/21/22 intramuscular syringe (Depo-Provera) sertraline 25 mg tablet 50 mg PO HS 11/20/22 11/21/22 Lactobacillus acidophilus 1 tab PO DAILY 11/22/22 11/22/22 pantoprazole 40 mg tablet,delayed 40 mg PO DAILY 11/22/22 11/22/22 release quetiapine 25 mg tablet 25 mg PO QHS 11/22/22 11/22/22 Previous Rx's Medication Instructions Recorded epinephrine 0.3 mg/0.3 mL 0.3 ml subcut ONCE PRN anaphylaxis 08/14/22 injection, auto-injector #2 ea ondansetron 4 mg disintegrating 4 mg PO Q8H PRN #14 tabs 10/28/22 tablet medroxyprogesterone 150 mg/mL 150 mg IM every 3 months #1 SYRG 11/12/22 intramuscular syringe (Depo-Provera) Allergies Allergy/AdvReac Type Severity Reaction Status Date / Time fluticasone Allergy Severe unknown Verified 11/22/22 11:19 [From Flovent HFA] lisinopril Allergy Intermediate unknown Verified 11/22/22 11:19 paroxetine HCl [From Paxil] Allergy Intermediate Hives Verified 11/22/22 11:19 polyethylene glycol 3350 Allergy Intermediate unknown Verified 11/22/22 11:19 [From Miralax] risperidone [From Risperdal] Allergy Intermediate Hives Verified 11/22/22 11:19 NSAIDS (Non-Steroidal Allergy Due to Verified 11/22/22 11:19 Anti-Inflamma prior kidney damage acetaminophen AdvReac Nausea Unverified 11/22/22 11:19 amoxicillin AdvReac Nausea Verified 11/22/22 11:19 seafood Allergy Intermediate unknown Uncoded 11/22/22 11:19 enviornmental Allergy Mild sneezing Uncoded 11/22/22 11:19 General Stated Complaint: Abd Prob MARY KAY: 3 Review of Systems Constitutional Constitutional: Denies chills, Denies fever(s) and Reports poor appetite Cardiovascular Cardiovascular: Denies chest pain and Denies dyspnea Respiratory Respiratory: Denies cough and Denies dyspnea Gastrointestinal Gastrointestinal: Reports as per HPI, Reports abdominal pain, Denies melena, Denies change in bowel habits, Denies constipation, Denies diarrhea, Reports nausea and Reports vomiting Genitourinary Genitourinary: Denies hematuria, Denies dysuria, Denies flank pain and Denies urinary urgency Integumentary/Breasts Skin/Breast: Denies rash Psychiatric Psychiatric: Reports anxiety and Reports depression PFSH All Active Problems Depression (Chronic) Nausea & vomiting (Acute) Mood disorder (Acute) URI (upper respiratory infection) (Acute) COVID (Acute) COVID (Acute) Medication adverse effect (Acute) Anxiety (Chronic) Nausea (Acute) Nausea (Acute) Nausea (Acute) Hyperplastic colon polyp (Acute) Rectal polyp (Acute) Chronic kidney disease, stage 1 (Chronic 12/31/16) from renal infection as a child elevated BP resulting 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 Patient is using the Depo-Provera for menstrual cycle control. Depression (12/31/16) Drug abuse, episodic use Dysuria Family history of colon cancer Fatigue Generalized headaches (12/31/16) Hemolytic uremic syndrome History of allergic reaction History of mastoiditis Hypertrophy of tonsils and adenoids Illiteracy Per caregiver she is able to read and write, she needs assitance with comprehension of more complex words. Jaw pain Mesenteric lymphadenitis Otalgia, right ear Overactive bladder (02/09/18) Pain, dental PTSD (post-traumatic stress disorder) RBC microcytosis Steatosis of liver SASHA (stress urinary incontinence, female) Suicidal ideation TMJ tenderness, left Vitamin D deficiency Surgical History History of colonoscopy (~06/2022) History of kidney surgery Hx of tooth extraction Social History Smoking/Tobacco Use Status: Former Tobacco Use Smoking risk assessment performed?: Yes Alcohol Intake: former Drug use: Current Sobriety Substance use type: marijuana Sexually active: Yes (female partner only now(May 2022). Has never had intercourse) Do you think of yourself as: lesbian/cash/homosexual What is your relationship status?: never Panel score (0-1 are the most socially isolated patients): 0 Do you feel safe at home: Yes Do you feel safe in your relationship?: Yes Additional Social history: lives alone - states she feels sad when she is alone Female Reproductive History Menstrual control method: progesterone injection History History 0 Para Hx # Term Pregnancies Multiple births Hx # Pregnancies Ectopic pregnancies AB induced Hx Number of Living Children AB spontaneous Exam Const General: cooperative Orientation: alert, awake and oriented x3 Resp Effort & Inspection: normal respiratory effort and able to speak in complete sentences Auscultation: clear to auscultation bilaterally Cardio Rate: regular rate Rhythm: regular rhythm Heart Sounds: S1 normal and S2 normal GI Palpation: soft, not firm, no guarding, no masses, no pulsatile masses, not rigid, no splenomegaly and nontender Auscultation: normal bowel sounds Rectal Exam - female: deferred Back/Spine/Pelvis Back: no CVA tenderness Neuro General: patient alert, patient awake, patient oriented x3, gait normal and moves all extremities Psych Speech and Movement: speech and movement normal Mood: anxious mood Affect: normal affect Attitude: cooperative Thought Process: normal Thought Content: normal Insight: insight good Judgment: judgment good Course Vital Signs Vital signs: Vital Signs Temperature 37.0 C 11/21/22 18:30 Pulse 120 H 11/21/22 18:30 Blood Pressure 153/97 H 11/21/22 18:30 Pulse Oximetry 97 11/21/22 18:30 Temperature 37.0 C 11/21/22 18:30 Temperature Source Skin 11/21/22 18:30 Pulse 120 H 11/21/22 18:30 Respiratory Effort 11/21/22 18:34 Blood Pressure 153/97 H 11/21/22 18:30 Blood Pressure Position Sitting 11/21/22 18:30 Pulse Oximetry 97 11/21/22 18:30 Oxygen Delivery Method Room Air 11/21/22 18:30 Oxygen Flow Rate 0 11/21/22 18:30 Pain Level 7 11/21/22 18:30 Lab/Test Results Lab/Test Results: Laboratory Tests Range/Units 11/21/22 11/21/22 11/21/22 21:30 21:30 21:40 WBC (4.4-10.8) 10^3/uL 12.70 H RBC (3.93-5.22) 10^6/uL 5.33 H Hgb (11.2-15.7) g/dL 12.7 Hct (36.0-46.0) % 40.9 MCV (80-95) fL 77 L MCH (27.0-33.0) pg 23.8 L MCHC (32.0-36.0) % 31.1 L RDW (11.7-14.6) % 14.9 H Plt Count (130-400) 10^3/uL 284 MPV (8.0-11.0) fL 12.3 H Immature Gran % 0.4 Neutrophils % 70.0 Lymphocytes % 20.2 Monocytes % 7.4 Eosinophils % 1.6 Basophils % 0.4 Nucleated RBC % (0.0-0.3) % 0.0 Absolute Neutrophils (1.2-6.7) 10^3/uL 8.89 H Absolute Lymphocytes (1.2-3.4) 10^3/uL 2.57 Absolute Monocytes (0.1-0.8) 10^3/uL 0.94 H Absolute Eosinophils (0.0-0.7) 10^3/uL 0.20 Absolute Basophils (0.0-0.2) 10^3/uL 0.05 Sodium (136-145) mmol/L 139 Potassium (3.5-5.1) mmol/L 4.0 Chloride (98-107) mmol/L 104 Carbon Dioxide (21.0-32.0) mmol/L 26.0 Anion Gap (3-11) mmol/L 9.0 BUN (7-18) mg/dL 11 Creatinine (0.55-1.02) mg/dL 0.8 Est GFR (CKD-EPI 2020) (mL/min/1.73m2) 104.80 Glucose (74-106) mg/dL 93 Calcium (8.5-10.1) mg/dL 9.2 Magnesium (1.8-2.4) mg/dL 2.1 Total Bilirubin (0.2-1.0) mg/dL 0.4 AST (15-37) U/L 16 ALT (14-59) U/L 22 Alkaline Phosphatase (46-116) U/L 85 Total Protein (6.4-8.2) g/dL 7.9 Albumin (3.4-5.0) g/dL 4.1 Lipase (73-393) U/L 57 Urine Color (Yellow) Yellow Urine Clarity (Clear) Clear Urine pH (5-8) 6.5 Ur Specific [place] (1.005-1.025) >= 1.030 H Urine Protein (Negative) mg/dL 30 H Urine Ketones (Negative) mg/dL Negative Urine Blood (Negative) Negative Urine Nitrite (Negative) Negative Urine Bilirubin (Negative) Negative Urine Urobilinogen (Up TO 0.2) EU/dL 0.2 Ur Leukocyte Esterase (Negative) Negative Urine RBC (0-2) HPF 0-2 Urine WBC (0-5) HPF 0-2 Ur Epithelial Cells (Negative) HPF Moderate Urine Crystals (Negative) HPF Negative Urine Bacteria (Negative) HPF Rare Urine Casts (Negative) LPF 0-2 Hyaline Urine Mucus (Negative) Trace Urine Other (Negative) Rare Renal Ur Culture Indicated? No Urine Glucose (Negative) mg/dL Negative POC- Test(urine) Negative
--- NOTE | 2022-11-21 23:00 | NUR.NOTE ---
Referral faxed to [facility] to f/u within the next week for multiple emergency room visits for various complaints, nausea, anxiety, depression.Nursing Note:
[2022-11-21] MEDS: Ondansetron O.D.T. 4 MG TABEF, 3 TABS/BTL PO (23:01)
--- NOTE | 2022-11-22 00:06 | NUR.NOTE ---
Nursing Note: After discharge - pt states she was unable to obtain a ride home and requested to talk to someone about SI. This RN and DENTISTRY TEACHER spoke to pt and [facility] at length about what was bothering her at present - pt states shawnee is frustrated w her case monitor who continues to 'refuse to go continuous pickling line pickler her cat'. Offered pt to speak to alejandrina harper - pt now requesting to go home stating she feels safe. Pt declined crisis eval leroy.
== END 2022-11-21 23:07 | disposition home or self-care (01) ==
PROVIDERS: Emergency Provider Nurse Practitioner Family; PCP Nurse Practitioner Family
DX: F41.9 Anxiety disorder, unspecified (principal); R11.10 Vomiting, unspecified; D72.829 Elevated white blood cell count, unspecified
CPT/HCPCS: 80053; 81025; 83690; 96361; 96374; 99284; 81003; 81015; 83735; 85025; J2405

== ENCOUNTER 2022-11-22 09:59 | Emergency (ER) | payer MEDICAID, SELFPAY ==
[2022-11-22 10:18] VITALS: BP 149/101; PULSE 103; RESP 20; TEMP 36.8; O2SAT 96
[2022-11-22 10:46] VITALS: RESP 18
--- NOTE | 2022-11-22 12:00 | NUR.NOTE ---
Nursing Note: pt is ok to keep her personal belongings and clothes, cleared through the provider.
--- NOTE | 2022-11-22 12:04 | NUR.NOTE ---
Nursing Note: VIGNESH Brown brought pt to ED rm5. Patient told her that [facility] called her and that we were not going to do anything for her and that she could leave. Called [facility] spoke to Andrew myself and he stated that she was not told that. THey are still working on what to do with her, that they knew she is here and does not need to be. Andrew will make sure that [facility] calls the ED with disposition.
--- NOTE | 2022-11-24 18:17 | W.ED.GENAD ---
Discharge Plan Disposition Patient Disposition: Home Condition: Stable Discharge Details Clinical Impression: Mood disorder, URI (upper respiratory infection) Primary Care Provider: Niyah Serna ED Provider: Leonor Simons Home Meds and New Rx's Prescriptions: Continued melatonin 3 mg tablet 3 - 5 mg PO HS Rx Instructions: 1-2 tabs (3-6 mg) po at hs albuterol sulfate 90 mcg/actuation HFA aerosol inhaler 1 inh IH ONCE labetalol 100 mg tablet 50 mg PO DAILY Digestive Advantage Prob Gummy 250 million cell tablet,chewable 250 cell PO DAILY lidocaine 3.5 % adhesive patch,medicated 1 patch topical DIRECTED medroxyprogesterone [Depo-Provera] 150 mg/mL syringe 150 mg IM every 3 months Qty: 1 5RF Rx Instructions: bring syringe to [facility] [place] for administration. epinephrine 0.3 mg/0.3 mL auto-injector 0.3 ml SC ONCE PRN (Reason: anaphylaxis) Qty: 2 0RF Rx Instructions: as a single dose; may repeat once sertraline 25 mg tablet 50 mg PO HS Lactobacillus acidophilus Tablet 1 tab PO DAILY pantoprazole 40 mg Tablet,Delayed Release (Dr/Ec) 40 mg PO DAILY quetiapine 25 mg Tablet 25 mg PO QHS acetaminophen 500 mg Tablet 1,000 mg PO PRN PRN clonidine HCl 0.2 mg tablet 1 tab PO HS Label Comments: TAKE ONE TABLET BY MOUTH AT BEDTIME naproxen sodium 220 mg Tablet 220 mg PO PRN PRN ondansetron 4 mg tablet,disintegrating 4 mg PO Q8H PRNQty: 14 0RF Discharge Instructions Instructions: Upper Respiratory Infection (ED) Additional Instructions: Please continue on supportive care for upper respiratory infection Please follow-up with [facility], you have lots of resources that you are able to utilize at home for your depression and anxiety, please continue to use them Please return earlier should you have any new or worsening complaints Discharge Data Discharge Date/Time-TO BE ENTERED AT DEPARTURE: 11/22/22 16:07 Medical Decision Making This 27-year-old female presents with report of concern regarding having COVID-19 with runny nose and exposure Her COVID and flu test were negative She then tells me that she has had persistent suicidality She denies specific plan She has been cutting her arms with her fingernails and has superficial cuts and very low concern for patient's safety [facility] was consulted and patient has a safety plan in place with [facility] Patient will be discharged home after long discussion with IDD asked Return precautions reviewed and patient expressed understanding She is encouraged to call her doctor and continue on her prescribed medications She is discharged home in stable condition with stable vitals, alert, oriented, decisional capacity Medical Records Medical records reviewed: Yes I reviewed the patient's medical records. Lab Data Lab results reviewed: Yes I reviewed the patient's lab results. HPI General Date/Time Provider Initiated Documentation: 11/22/22 10:29. HPI Narrative: 27-year-old female known to this facility presents with report of being exposed to COVID-19 and hoping for a swab to evaluate as she has a runny nose. She denies any chest pain or shortness of breath. She denies any dizziness or weakness. She does state that she has had suicidal ideation, this is persistent for her and not necessarily worse today. When asked to regarding her plan she states to cut her wrist as she typically does. She states that cutting helps her feel pain. She actually denies any true suicidal ideation and more feels that her depression is worsening. She denies any auditory visual hallucinations. She feels safe in her home. Related Data Home Medications Medication Instructions Recorded Confirmed acetaminophen 500 mg tablet 1,000 mg PO PRN PRN 10/30/19 11/22/22 albuterol sulfate 90 mcg/actuation 1 inh inhalation ONCE 05/13/20 11/21/22 aerosol inhaler Bacillus coagulans 250 million 250 cell PO DAILY 09/25/21 11/21/22 cell chewable tablet (Digestive Advantage Probiotic Gummy) labetalol 100 mg tablet 50 mg PO DAILY 09/25/21 11/22/22 melatonin 3 mg tablet 3 - 5 mg PO HS 09/25/21 11/22/22 lidocaine 3.5 % topical patch 1 patch topical DIRECTED 05/17/22 11/21/22 epinephrine 0.3 mg/0.3 mL 0.3 ml subcut ONCE PRN anaphylaxis 08/14/22 11/21/22 injection, auto-injector #2 ea clonidine HCl 0.2 mg tablet 1 tab PO HS 10/03/22 11/22/22 naproxen sodium 220 mg tablet 220 mg PO PRN PRN 10/03/22 11/21/22 ondansetron 4 mg disintegrating 4 mg PO Q8H PRN #14 tabs 10/28/22 11/21/22 tablet medroxyprogesterone 150 mg/mL 150 mg IM every 3 months #1 SYRG 11/12/22 11/21/22 intramuscular syringe (Depo-Provera) sertraline 25 mg tablet 50 mg PO HS 11/20/22 11/21/22 Lactobacillus acidophilus 1 tab PO DAILY 11/22/22 11/22/22 pantoprazole 40 mg tablet,delayed 40 mg PO DAILY 11/22/22 11/22/22 release quetiapine 25 mg tablet 25 mg PO QHS 11/22/22 11/22/22 Previous Rx's Medication Instructions Recorded epinephrine 0.3 mg/0.3 mL 0.3 ml subcut ONCE PRN anaphylaxis 08/14/22 injection, auto-injector #2 ea ondansetron 4 mg disintegrating 4 mg PO Q8H PRN #14 tabs 10/28/22 tablet medroxyprogesterone 150 mg/mL 150 mg IM every 3 months #1 SYRG 11/12/22 intramuscular syringe (Depo-Provera) Allergies Allergy/AdvReac Type Severity Reaction Status Date / Time fluticasone Allergy Severe unknown Verified 11/22/22 11:19 [From Flovent HFA] lisinopril Allergy Intermediate unknown Verified 11/22/22 11:19 paroxetine HCl [From Paxil] Allergy Intermediate Hives Verified 11/22/22 11:19 polyethylene glycol 3350 Allergy Intermediate unknown Verified 11/22/22 11:19 [From Miralax] risperidone [From Risperdal] Allergy Intermediate Hives Verified 11/22/22 11:19 NSAIDS (Non-Steroidal Allergy Due to Verified 11/22/22 11:19 Anti-Inflamma prior kidney damage acetaminophen AdvReac Nausea Unverified 11/22/22 11:19 amoxicillin AdvReac Nausea Verified 11/22/22 11:19 seafood Allergy Intermediate unknown Uncoded 11/22/22 11:19 enviornmental Allergy Mild sneezing Uncoded 11/22/22 11:19 General Stated Complaint: GenMedical MARY KAY: 3 Review of Systems All systems reviewed & are unremarkable except as noted in HPI and below PFSH All Active Problems Depression (Chronic) Nausea & vomiting (Acute) Mood disorder (Acute) URI (upper respiratory infection) (Acute) COVID (Acute) COVID (Acute) Medication adverse effect (Acute) Anxiety (Chronic) Nausea (Acute) Nausea (Acute) Nausea (Acute) Hyperplastic colon polyp (Acute) Rectal polyp (Acute) Chronic kidney disease, stage 1 (Chronic 12/31/16) from renal infection as a child elevated BP resulting 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 Patient is using the Depo-Provera for menstrual cycle control. Depression (12/31/16) Drug abuse, episodic use Dysuria Family history of colon cancer Fatigue Generalized headaches (12/31/16) Hemolytic uremic syndrome History of allergic reaction History of mastoiditis Hypertrophy of tonsils and adenoids Illiteracy Per caregiver she is able to read and write, she needs assitance with comprehension of more complex words. Jaw pain Mesenteric lymphadenitis Otalgia, right ear Overactive bladder (02/09/18) Pain, dental PTSD (post-traumatic stress disorder) RBC microcytosis Steatosis of liver SASHA (stress urinary incontinence, female) Suicidal ideation TMJ tenderness, left Vitamin D deficiency Surgical History History of colonoscopy (~06/2022) History of kidney surgery Hx of tooth extraction Social History Smoking/Tobacco Use Status: Former Tobacco Use Smoking risk assessment performed?: Yes Alcohol Intake: former Drug use: Current Sobriety Substance use type: marijuana Sexually active: Yes (female partner only now(May 2022). Has never had intercourse) Do you think of yourself as: lesbian/cash/homosexual What is your relationship status?: never Panel score (0-1 are the most socially isolated patients): 0 Do you feel safe at home: Yes Do you feel safe in your relationship?: Yes Additional Social history: lives alone - states she feels sad when she is alone Female Reproductive History Menstrual control method: progesterone injection History History 0 Para Hx # Term Pregnancies Multiple births Hx # Pregnancies Ectopic pregnancies AB induced Hx Number of Living Children AB spontaneous Exam Const General: cooperative, comfortable and no acute distress HENMT Head: normal to inspection Mouth: oral mucosae normal Eyes Pupils: PERRL Resp Effort & Inspection: normal respiratory effort Cardio Rate: regular rate GI Inspection: normal to inspection Skin General skin exam: no rashes or lesions noted Neuro General: patient alert and patient oriented x3 Psych Appearance: well kempt Insight: fair Judgment: fair Course Vital Signs Vital signs: Vital Signs Temperature 36.8 C 11/22/22 10:18 Pulse 103 H 11/22/22 10:18 Respiratory Rate 20 11/22/22 10:18 Blood Pressure 149/101 H 11/22/22 10:18 Pulse Oximetry 96 11/22/22 10:18 Temperature 36.8 C 11/22/22 10:18 Temperature Source Tympanic 11/22/22 10:18 Pulse 103 H 11/22/22 10:18 Respiratory Rate 18 11/22/22 10:46 Respiratory Effort Non-Labored 11/22/22 10:46 Respiratory Depth Normal 11/22/22 10:46 Respiratory Pattern Normal 11/22/22 10:46 Blood Pressure 149/101 H 11/22/22 10:18 Blood Pressure Position Sitting 11/22/22 10:18 Pulse Oximetry 96 11/22/22 10:18 Oxygen Delivery Method Room Air 11/22/22 10:18 Oxygen Flow Rate 0 11/22/22 10:18
== END 2022-11-22 16:07 | disposition home or self-care (01) ==
PROVIDERS: Emergency Provider Physician Assistant; PCP Nurse Practitioner Family
DX: F39 Unspecified mood [affective] disorder (principal); J06.9 Acute upper respiratory infection, unspecified; Z20.822 Contact with and (suspected) exposure to COVID-19
CPT/HCPCS: 99283

== ENCOUNTER 2022-12-13 13:16 | Outpatient (REF) | payer MEDICAID, SELFPAY ==
[2022-12-13 16:04] LABS: Iron 20 ug/dL (50-170); Total Iron Binding Capacity 429 ug/dL (250-450)
[2022-12-13 16:13] LABS: Hemoglobin A1C 5.8 % (<5.7)
[2022-12-13 16:18] LABS: Ferritin 39 ng/mL (8-252); TSH (W/Ref FT4) 0.94 uIU/mL (0.36-3.74)
[2022-12-13 16:25] LABS: Vitamin D 25 Total 17.6 ng/mL (30-100)
== END 2022-12-13 13:17 | disposition home or self-care (01) ==
LOC: NCHCN 13:16
PROVIDERS: PCP Family Medicine; Visit Provider Family Medicine
DX: R53.83 Other fatigue (principal)
CPT/HCPCS: 82306; 82728; 83036; 83540; 83550; 84443

== ENCOUNTER 2022-12-25 07:23 | Emergency (ER) | payer MEDICAID, SELFPAY ==
[2022-12-25 07:14] VITALS: BP 137/90; PULSE 106; RESP 18; TEMP 37.1; O2SAT 98
[2022-12-25 07:33] LABS: Bilirubin Negative (Negative); Blood Negative (Negative); Clarity Clear (Clear); Glucose Negative (Negative); Ketones Negative (Negative); Leukocyte Esterase Negative (Negative); Nitrite Negative (Negative); Specific Gravity 1.025 (1.005-1.025); Urobilinogen 0.2 mg/dL (Up to 0.2); pH 7.5 (5-8)
[2022-12-25 07:40] LABS: Epithelial Cells Many HPF (Negative); RBC 0-2 HPF (0-2)
[2022-12-25 07:41] LABS: Bacteria Few HPF (Negative); C & S Indicated? No/Sq. Contamination; Casts Negative LPF (Negative); Crystals Negative HPF (Negative); Mucus Negative (Negative)
[2022-12-25 07:46] LABS: *AMPHETAMINES SCREEN URINE Negative (Negative); *BARBITURATES SCREEN URINE Negative (Negative); *BENZODIAZEPINES SCREEN URINE Negative (Negative); Cannabinoids THC Negative (Negative); Cocaine Screen,Urine Negative (Negative); METHADONE URINE SCREEN Negative (Negative); OPIATES URINE SCREEN Negative (Negative)
[2022-12-25 07:58] LABS: Tricyclic Antidepressants Negative (Negative)
--- NOTE | 2022-12-25 08:03 | ED.GENADUL_ITS ---
Care signed out to me by my colleague Margoth Donohue DO, please see my progress note Discharge Plan Disposition Patient Disposition: Home Discharge Details Clinical Impression: Suicidal ideation Primary Care Provider: Estephanie Burdick ED Provider: Terra Melendez Home Meds and New Rx's Prescriptions: No Action melatonin 3 mg tablet 5 mg PO HS Rx Instructions: 1-2 tabs (3-6 mg) po at hs albuterol sulfate [Ventolin HFA] 90 mcg/actuation HFA aerosol inhaler 2 inh IH Q4H PRN labetalol 100 mg tablet 50 mg PO QAM Digestive Advantage Prob Gummy 250 million cell tablet,chewable 250 cell PO QAM lidocaine 3.5 % adhesive patch,medicated 1 patch topical DIRECTED Patient Comments: not on pt list medroxyprogesterone [Depo-Provera] 150 mg/mL syringe 150 mg IM every 3 months Qty: 1 5RF Rx Instructions: [facility] syringe to [facility] administration. epinephrine 0.3 mg/0.3 mL auto-injector 0.3 ml SC ONCE PRN (Reason: anaphylaxis) Qty: 2 0RF Rx Instructions: as a single dose; may repeat once sertraline 25 mg tablet 50 mg PO HS Patient Comments: not on pt list Lactobacillus acidophilus Tablet 1 tab PO DAILY Patient Comments: not on pt list pantoprazole 40 mg Tablet,Delayed Release (Dr/Ec) 40 mg PO QAM quetiapine 25 mg Tablet 25 mg PO BID buspirone 5 mg tablet 5 mg PO BID ferrous sulfate 325 mg (65 mg iron) tablet 65 mg PO Q OTHER DAY nicotine (polacrilex) 2 mg gum 2 mg PO Q4H PRN nicotine 7 mg/24 hr patch 24 hour 1 patch transdermal Q24H ergocalciferol (vitamin D2) [Vitamin D2] 1,250 mcg (50,000 unit) Capsule 50,000 unit PO .WEEKLY acetaminophen 500 mg Tablet 1,000 mg PO PRN PRN clonidine HCl 0.2 mg tablet 0.2 mg PO HS Patient Comments: TAKE ONE TABLET BY MOUTH AT BEDTIME naproxen sodium 220 mg Tablet 220 mg PO PRN PRN ondansetron 4 mg tablet,disintegrating 4 mg PO Q8H PRNQty: 14 0RF Discharge Instructions Instructions: Depression (ED), Help Prevent Suicide (ED) Additional Instructions: Please follow the safety plan as discussed by an EKG as staff. Please call the crisis hotline number for any worsening thoughts of self-harm. The plan is that someone will be with you until noon and have check-in calls from noon to 4 and then be with you again at 4 PM. The animals are safe and are no longer your concerns at this time according to ROBERTO. Follow up with primary care provider in 3-5 days. Return to ED sooner if any worsening or concerns. Increase oral fluids. Referrals: Estephanie Burdick [Primary Care Provider] - 1 week Discharge Data Discharge Date/Time-TO BE ENTERED AT DEPARTURE: 12/25/22 09:57 Medical Decision Making <Margoth Donohue DO - Last Filed: 12/25/22 08:53> 0750 -- 27-year-old female with a history of anxiety, depression, ADHD, PTSD, hypertension and obesity presents for feeling overwhelmed with responsibilities at home and feeling suicidal. Patient has a plan to slit my wrists or find fentanyl and touch it to kill myself . Patient is hemodynamically stable and medically cleared by smart clearance form. We will call mental health for evaluation. 819 -- Case endorsed to KIRSTIE Melendez to follow-up with mental health. Medical Records Medical records reviewed: Yes I reviewed the patient's medical records. HPI <Margoth Donohue DO - Last Filed: 12/25/22 08:53> General Mode of arrival: EMS . Date/Time Provider Initiated Documentation: 12/25/22 07:35 . Limitations to Documentation: no limitations . Information obtained by: patient . HPI Narrative: Patient is a 27-year-old female with a history of anxiety, depression, ADHD, PTSD, hypertension, and obesity presents from home for feeling overwhelmed and suicidal. Patient states she has been caring for her grandparents 3 dogs while both of them are in the hospital. Patient states her grandmother has been in a hospital in [place] for the past month and her grandfather has been here [facility] admitted for the past month. She states her grandparents have 3 dogs who she has been checking on regularly. She states her grandparents landlord does not like 3 dogs and went into their apartment last night and 2 of the dogs bolted out of the house and patient states the pound lady is going to come after her and she is going to get in trouble. Patient states she is feeling overwhelmed with these responsibilities and this is causing her to feel suicidal. Patient states she would cut her risks or find fentanyl and touch it to kill herself. Patient denies any recent alcohol or drug use. Related Data Home Medications Medication Instructions Recorded Confirmed acetaminophen 500 mg tablet 1,000 mg PO PRN PRN 10/30/19 12/25/22 albuterol sulfate 90 mcg/actuation 2 inh inhalation Q4H PRN 05/13/20 12/25/22 aerosol inhaler (Ventolin HFA) Bacillus coagulans 250 million 250 cell PO QAM 09/25/21 12/25/22 cell chewable tablet (Digestive Advantage Probiotic Gummy) labetalol 100 mg tablet 50 mg PO QAM 09/25/21 12/25/22 melatonin 3 mg tablet 5 mg PO HS 09/25/21 12/25/22 lidocaine 3.5 % topical patch 1 patch topical DIRECTED 05/17/22 11/21/22 epinephrine 0.3 mg/0.3 mL 0.3 ml subcut ONCE PRN anaphylaxis 08/14/22 12/25/22 injection, auto-injector #2 ea clonidine HCl 0.2 mg tablet 0.2 mg PO HS 10/03/22 12/25/22 naproxen sodium 220 mg tablet 220 mg PO PRN PRN 10/03/22 12/25/22 ondansetron 4 mg disintegrating 4 mg PO Q8H PRN #14 tabs 10/28/22 12/25/22 tablet medroxyprogesterone 150 mg/mL 150 mg IM every 3 months #1 SYRG 11/12/22 12/25/22 intramuscular syringe (Depo-Provera) sertraline 25 mg tablet 50 mg PO HS 11/20/22 11/21/22 Lactobacillus acidophilus 1 tab PO DAILY 11/22/22 11/22/22 pantoprazole 40 mg tablet,delayed 40 mg PO QAM 11/22/22 12/25/22 release quetiapine 25 mg tablet 25 mg PO BID 11/22/22 12/25/22 buspirone 5 mg tablet 5 mg PO BID 12/25/22 12/25/22 ergocalciferol (vitamin D2) 1,250 50,000 unit PO .WEEKLY 12/25/22 12/25/22 mcg (50,000 unit) capsule (Vitamin D2) ferrous sulfate 325 mg (65 mg 65 mg PO Q OTHER DAY 12/25/22 12/25/22 iron) tablet nicotine (polacrilex) 2 mg gum 2 mg PO Q4H PRN 12/25/22 12/25/22 nicotine 7 mg/24 hr daily 1 patch transdermal Q24H 12/25/22 12/25/22 transdermal patch Previous Rx's Medication Instructions Recorded epinephrine 0.3 mg/0.3 mL 0.3 ml subcut ONCE PRN anaphylaxis 08/14/22 injection, auto-injector #2 ea ondansetron 4 mg disintegrating 4 mg PO Q8H PRN #14 tabs 10/28/22 tablet medroxyprogesterone 150 mg/mL 150 mg IM every 3 months #1 SYRG 11/12/22 intramuscular syringe (Depo-Provera) Allergies Allergy/AdvReac Type Severity Reaction Status Date / Time fluticasone Allergy Severe unknown Verified 12/25/22 07:18 [From Flovent HFA] lisinopril Allergy Intermediate unknown Verified 12/25/22 07:18 paroxetine HCl [From Paxil] Allergy Intermediate Hives Verified 12/25/22 07:18 polyethylene glycol 3350 Allergy Intermediate unknown Verified 12/25/22 07:18 [From Miralax] risperidone [From Risperdal] Allergy Intermediate Hives Verified 12/25/22 07:18 NSAIDS (Non-Steroidal Allergy Due to Verified 12/25/22 07:18 Anti-Inflamma prior kidney damage acetaminophen AdvReac Nausea Unverified 12/25/22 07:18 amoxicillin AdvReac Nausea Verified 12/25/22 07:18 seafood Allergy Intermediate unknown Uncoded 12/25/22 07:18 enviornmental Allergy Mild sneezing Uncoded 12/25/22 07:18 General Stated Complaint: PsychEval MARY KAY: 2 Review of Systems <Margoth Donohue DO - Last Filed: 12/25/22 08:53> All systems reviewed & are unremarkable except as noted in HPI and below Constitutional Constitutional: Reports as per HPI, Denies chills and Denies fever(s) Eyes Eyes: Denies blurry vision ENT Ears, Nose, Mouth, and Throat: Denies dizziness, Denies sore throat and Denies throat swelling Cardiovascular Cardiovascular: Denies chest pain and Denies dyspnea Respiratory Respiratory: Denies cough and Denies dyspnea Gastrointestinal Gastrointestinal: Denies abdominal pain, Denies diarrhea and Denies vomiting Genitourinary Genitourinary: Denies hematuria and Denies dysuria Musculoskeletal Musculoskeletal: Denies back pain and Denies numbness Integumentary/Breasts Skin/Breast: Denies lesions and Denies rash Neurologic Neurologic: Denies dizziness, Denies localized weakness and Denies numbness Psychiatric Psychiatric: Reports suicidal ideation Allergic/Immunologic Allergic/Immunologic: Denies throat swelling PFSH <Margoth Donohue, DO - Last Filed: 12/25/22 08:53> All Active Problems (Updated 12/25/22 @ 09:26 by Terra Melendez NP) Suicidal ideation (Acute) COVID (Acute) COVID (Acute) Hyperplastic colon polyp (Acute) Rectal polyp (Acute) Chronic kidney disease, stage 1 (Chronic 12/31/16) from renal infection as a child elevated BP resulting 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 Patient is using the Depo- Provera for menstrual cycle control. Depression (12/31/16) Drug abuse, episodic use Dysuria Family history of colon cancer Fatigue Generalized headaches (12/31/16) Hemolytic uremic syndrome History of allergic reaction History of mastoiditis Hypertrophy of tonsils and adenoids Illiteracy Per caregiver she is able to read and write, she needs assitance with comprehension of more complex words. Jaw pain Mesenteric lymphadenitis Otalgia, right ear Overactive bladder (02/09/18) Pain, dental PTSD (post-traumatic stress disorder) RBC microcytosis Steatosis of liver SASHA (stress urinary incontinence, female) Suicidal ideation TMJ tenderness, left Vitamin D deficiency Surgical History History of colonoscopy (~06/2022) History of kidney surgery Hx of tooth extraction Social History Smoking/Tobacco Use Status: Current every day Tobacco Type: e-cigarettes Smoking risk assessment performed?: Yes Alcohol Intake: former Drug use: Current Sobriety Substance use type: marijuana Sexually active: Yes (female partner only now(May 2022). Has never had intercourse) Do you think of yourself as: lesbian/cash/homosexual What is your relationship status?: never Panel score (0-1 are the most socially isolated patients): 0 Do you feel safe at home: Yes Do you feel safe in your relationship?: Yes Additional Social history: lives alone - states she feels sad when she is alone Female Reproductive History Menstrual control method: progesterone injection History History 0 Para Hx # Term Pregnancies Multiple births Hx # Pregnancies Ectopic pregnancies AB induced Hx Number of Living Children AB spontaneous Exam <Margoth Donohue DO - Last Filed: 12/25/22 08:53> Const General: cooperative and no acute distress Orientation: alert, awake and oriented x3 HENMT Head: normal to inspection Face and sinus: normal facial exam Eyes General: appearance normal, both eyes and all related structures Pupils: PERRL EOM: EOM intact bilaterally Neck Neck: normal visual inspection and No submandibular swelling Lymphatic: no lymphadenopathy noted Chest Chest: normal inspection of the chest and no tenderness Resp Effort & Inspection: normal respiratory effort and able to speak in complete sentences Auscultation: clear to auscultation bilaterally Cardio Rate: regular rate Rhythm: regular rhythm GI Inspection: normal to inspection Palpation: soft, not firm, not rigid and nontender Auscultation: normal bowel sounds Back/Spine/Pelvis Thoracic/Lumbar Spine: thoracic and lumbar spine normal to inspection Pelvis: no pain with anterior-posterior compression Skin General skin exam: no rashes or lesions noted Neuro General: patient alert, patient awake and patient oriented x3 Cognition: normal cognition Speech: speech normal Motor: muscle tone normal throughout Sensory Exam: no sensory deficits noted Extrem General: normal to inspection, full ROM, capillary refill normal, no calf tenderness bilaterally and no edema Psych Appearance: grossly normal Mental Status: mental status grossly normal Speech and Movement: speech and movement normal Affect: normal affect Course <Margoth Donohue DO - Last Filed: 12/25/22 08:53> Vital Signs Vital signs: Vital Signs Temperature 98.8 F 12/25/22 07:14 Pulse 106 H 12/25/22 07:14 Respiratory Rate 18 12/25/22 07:14 Blood Pressure 137/90 12/25/22 07:14 Pulse Oximetry 98 12/25/22 07:14 Temperature 98.8 F 12/25/22 07:14 Temperature Source Oral 12/25/22 07:14 Pulse 106 H 12/25/22 07:14 Respiratory Rate 18 12/25/22 07:14 Respiratory Effort Normal, Non-Labored 12/25/22 07:17 Blood Pressure 137/90 12/25/22 07:14 Pulse Oximetry 98 12/25/22 07:14 Oxygen Delivery Method Room Air 12/25/22 07:14 Oxygen Flow Rate 0 12/25/22 07:14 Lab/Test Results Lab/Test Results: Laboratory Tests Range/Units 12/25/22 12/25/22 07:25 07:25 Urine Color (Yellow) Yellow Urine Clarity (Clear) Clear Urine pH (5-8) 7.5 Ur Specific [place] (1.005-1.025) 1.025 Urine Protein (Negative) mg/dL 30 H Urine Ketones (Negative) mg/dL Negative Urine Blood (Negative) Negative Urine Nitrite (Negative) Negative Urine Bilirubin (Negative) Negative Urine Urobilinogen (Up to 0.2) mg/dL 0.2 Ur Leukocyte Esterase (Negative) Negative Urine RBC (0-2) HPF 0-2 Urine WBC (0-5) HPF 3-5 Ur Epithelial Cells (Negative) HPF Many Urine Crystals (Negative) HPF Negative Urine Bacteria (Negative) HPF Few Urine Casts (Negative) LPF Negative Urine Mucus (Negative) Negative Ur Culture Indicated? No/Sq. Contamination Urine Glucose (Negative) mg/dL Negative Urine Opiates Screen (Negative) Negative Urine Methadone Screen (Negative) Negative Ur Barbiturates Screen (Negative) Negative Ur Tricyclics Screen (Negative) Negative Ur Amphetamines Screen (Negative) Negative U Benzodiazepines Scrn (Negative) Negative Urine Cocaine Screen (Negative) Negative Ur THC Screen (Negative) Negative POC- Test(urine) Negative PAWSS <Margoth Donohue DO - Last Filed: 12/25/22 08:53> Have you Been Recently Intoxicated or Drunk Within the Last 30 days?: No Have you Ever Experienced Previous Episodes of Alcohol Withdrawal?: No Have you ever Experienced Withdrawal Seizures?: No Have you ever Experienced Delirium Tremens(DT)s?: No Have you ever undergone Alcohol Rehabilitation Treatment (i.e, inpt ot outpatient treatment programs)?: No Have you ever Experienced Blackouts?: No Have you ever Combined Alcohol with other Downers within the last 90 days?: No Have you ever Combined Alcohol with any other Substance of Abuse during the last 90 days?: No Positive Blood Alcohol level on Presentation? [PCS.BAL]: No Evidence of Increased Autonomic Activity (i.e. HR>120, tremor, sweating, agitation, nausea)?: No Result: 0 <Terra Melendez NP - Last Filed: 12/25/22 11:07> Result: 0
--- NOTE | 2022-12-25 08:39 | NUR.NOTE ---
breakfast tray ordered Nursing Note:
--- NOTE | 2022-12-25 08:48 | W.EDPROG ---
Date of service: 12/25/22 Time of Service: 08:48 Medical Decision Making Care assumed from provider (Margoth Donohue DO) Please see their initial HPI, PE, and documentation. Discussed patient details and case and details, the time of signout pending mental health evaluation and disposition. Patient is hemodynamically stable, and alert and oriented. 0846: Spoke with Ambreen with [facility] regarding patient case and details, patient has been cleared by smart medical clearance prior to my arrival by my colleague. According to Ambreen she will call back for a screening. She reports that to her knowledge all access to means have been removed from her house previously. We will continue to observe patient. She is in line of sight of nurses station in paper scrubs. Patient ate breakfast with safe tray here. 0852: DOMO S on phone to perform tele psych liason eval. 0921: Spoke with Ambreen with [facility]-Patient to be discharged with safety plan according to any KH S the ground support equipment fitter has agreed to remove all picture frames glass sharps razors and means of self-harm from the her place of residence which has already been done ground support equipment fitter is on the way to pick her up and will be with her until noon afternoon till 4 PM they will do check-in calls after 4 PM she will have another ground support equipment fitter. Patient is in agreement with the plan and I agree with the plan. Will discharge into the care of support person Tabitha. [id number]: Spoke with patient support person Tabitha on the phone she reports that she will be here in approximately 20 minutes. Discussed plan of care with patient who verbalized her understanding is in agreement with the plan. She is requesting her clothes and phone. 0945: Patient discharged into the care of her caregiver. Ambulatory upon discharge alert and oriented. This text was generated using [employer] dictation system, please disregard any oddities of phrase or misspellings. Medical Records Medical records reviewed: Yes I reviewed the patient's medical records. Lab Data Lab results reviewed: Yes I reviewed the patient's lab results. Labs: Laboratory Tests Range/Units 12/25/22 12/25/22 07:25 07:25 Urine Color (Yellow) Yellow Urine Clarity (Clear) Clear Urine pH (5-8) 7.5 Ur Specific [place] (1.005-1.025) 1.025 Urine Protein (Negative) mg/dL 30 H Urine Ketones (Negative) mg/dL Negative Urine Blood (Negative) Negative Urine Nitrite (Negative) Negative Urine Bilirubin (Negative) Negative Urine Urobilinogen (Up to 0.2) mg/dL 0.2 Ur Leukocyte Esterase (Negative) Negative Urine RBC (0-2) HPF 0-2 Urine WBC (0-5) HPF 3-5 Ur Epithelial Cells (Negative) HPF Many Urine Crystals (Negative) HPF Negative Urine Bacteria (Negative) HPF Few Urine Casts (Negative) LPF Negative Urine Mucus (Negative) Negative Ur Culture Indicated? No/Sq. Contamination Urine Glucose (Negative) mg/dL Negative Urine Opiates Screen (Negative) Negative Urine Methadone Screen (Negative) Negative Ur Barbiturates Screen (Negative) Negative Ur Tricyclics Screen (Negative) Negative Ur Amphetamines Screen (Negative) Negative U Benzodiazepines Scrn (Negative) Negative Urine Cocaine Screen (Negative) Negative Ur THC Screen (Negative) Negative Discharge Plan Disposition Patient Disposition: Home Discharge Details Clinical Impression: Suicidal ideation Primary Care Provider: Estephanie Burdick ED Provider: Terra Melendez Ezel Meds and New Rx's Prescriptions: No Action melatonin 3 mg tablet 5 mg PO HS Rx Instructions: 1-2 tabs (3-6 mg) po at hs albuterol sulfate [Ventolin HFA] 90 mcg/actuation HFA aerosol inhaler 2 inh IH Q4H PRN labetalol 100 mg tablet 50 mg PO QAM Digestive Advantage Prob Gummy 250 million cell tablet,chewable 250 cell PO QAM lidocaine 3.5 % adhesive patch,medicated 1 patch topical DIRECTED Patient Comments: not on pt list medroxyprogesterone [Depo-Provera] 150 mg/mL syringe 150 mg IM every 3 months Qty: 1 5RF Rx Instructions[facility] epinephrine 0.3 mg/0.3 mL auto-injector 0.3 ml SC ONCE PRN (Reason: anaphylaxis) Qty: 2 0RF Rx Instructions: as a single dose; may repeat once sertraline 25 mg tablet 50 mg PO HS Patient Comments: not on pt list Lactobacillus acidophilus Tablet 1 tab PO DAILY Patient Comments: not on pt list pantoprazole 40 mg Tablet,Delayed Release (Dr/Ec) 40 mg PO QAM quetiapine 25 mg Tablet 25 mg PO BID buspirone 5 mg tablet 5 mg PO BID ferrous sulfate 325 mg (65 mg iron) tablet 65 mg PO Q OTHER DAY nicotine (polacrilex) 2 mg gum 2 mg PO Q4H PRN nicotine 7 mg/24 hr patch 24 hour 1 patch transdermal Q24H ergocalciferol (vitamin D2) [Vitamin D2] 1,250 mcg (50,000 unit) Capsule 50,000 unit PO .WEEKLY acetaminophen 500 mg Tablet 1,000 mg PO PRN PRN clonidine HCl 0.2 mg tablet 0.2 mg PO HS Patient Comments: TAKE ONE TABLET BY MOUTH AT BEDTIME naproxen sodium 220 mg Tablet 220 mg PO PRN PRN ondansetron 4 mg tablet,disintegrating 4 mg PO Q8H PRNQty: 14 0RF Discharge Instructions Instructions: Depression (ED), Help Prevent Suicide (ED) Additional Instructions: Please follow the safety plan as discussed by an EKG as staff. Please call the crisis hotline number for any worsening thoughts of self-harm. The plan is that someone will be with you until noon and have check-in calls from noon to 4 and then be with you again at 4 PM. The animals are safe and are no longer your concerns at this time according to ROBERTO. Follow up with primary care provider in 3-5 days. Return to ED sooner if any worsening or concerns. Increase oral fluids. Referrals: Estephanie Burdick [Primary Care Provider] - 1 week
--- NOTE | 2022-12-25 10:39 | PDOC.MHCN_ITS ---
Date of service: 12/25/22 Time of Service: 08:48 PHQ-9 Over the last 2 weeks, how often have you been bothered by any of the following problems? 1. Little interest or pleasure in doing things: several days 2. Feeling down, depressed, or hopeless: several days 3. Trouble falling or staying asleep, or sleeping too much: not at all 4. Feeling tired or having little energy: several days 5. Poor appetite or overeating: several days 6. Feeling bad about yourself - or that you are a failure or have let yourself and your family down: several days 7. Trouble concentrating on things, such as reading the newspaper or watching television: not at all 8. Moving or speaking so slowly that other people could have noticed? - Or the opposite - being so fidgety or restless that you have been moving around a lot more than usual: several days 9. Thoughts that you would be better off or of hurting yourself in some way: not at all Total score: 6 If you checked off any problems, how difficult have these problems made it for you to do your work, take care of things at home, or get along with other people?: somewhat difficult Source: Developed by Drs. Alejandro Ward, Melva Mancilla, Dave Sutton and colleagues, with an educational marcio from [employer]. Suicide Severity Rate CSSRS Have you wished you were or wished you could go to sleep and not wake up?: No Have you actually had any thoughts of killing yourself?: No CSSRS3 Have you ever done anything, started to do anything or prepared to do anything to end your life?: Yes CSSRS4 Was this within the past three months?: Yes Screening Score Total Score: 4 Screening: Positive Mental Health Emergency Note Release [facility] release signed:: Yes Reason for Visit Client presented to the ED on 12.25, with chief complaint of SI/NSSI. Client reports she has recently been given the responsibility to dog sit when her adela is in the hospital, and it is just too stressful for her. In the last 2 weeks has the pt presented for ES prior to today?: Unknown Client Information Client is: [facility] Well Housed: Yes Non Suicidal Self Injury Current: No History: yes, Shannon has a history of self cutting. Safety Risk/Harm to Self or Others Current Ideation to Harm Self or Others: No Risk: Does risk to harm exist?: No Risk: N/A Duty to warn indicated: No Asssessment/Mental Status Appearance: Unremarkable Attitude: Cooperative Behavior: Poor impulse control Speech: Normal Affect: Cogruent with mood Mood: Stressed and Anxious Thought process: Unremarkable Hallucinations: No evidence Delusions: No evidence Attention: Unremarkable Perception: Not impaired Orientation: Fully orientated Memory: Intact Insight: Poor Judgement: Poor Neurovegetative Symptoms Sleep: No change Appetitie: Decrease Interests: No change Energy: No change Libido: Not applicable Substance Use: Do you use nicotine?: No Have you used substances in the last 7 days?: No Additional Issues: Assaultive/Threatening Behavior: No Medical Concerns: No Client engaged in active self harm w/weapon: No Threatening to run away: No Child reported abuse/neglect: No Voluntarily presenting for services: Yes Domestic violence is a concern: No Extreme Psychosis or extreme behavior is present: No Impression Shannon presented to the emergency room due to SI/NSSI (self-cutting). Client's kennel staff member Estephanie Ford was present during screening for support to ES. After talking to Shannon more, it was learned that Shannon is upset due to both of her grandparents being in the hospital and having to dog sit, which could be why she is at [facility]. This insurance writer spoke to installation drafter [facility] worker Estephanie Ford prior to assessing client via zoom. Estephanie daugherty technical support professional will be arranged to be with client starting at 12:00pm and will resume again at 4:00pm until the reaminder of the eveing. From the hours of 12pm-4pm when client is alone, ESAU Ford will complete check-in calls with client for additional support. Shannon reports being safe to go home. Resources Reosurces reviewed and given:: [facility]ly [facility], [facility] and [facility] Plan/Disposition Recommended Disposition: [facility] Services (Follow up with [facility]) [facility] Services: Other. Plan: Shannon will be discharged from [facility] and picked up by technical support professional Tabitha from [facility]. SP was provided to [facility] staff and Estephanie Ford via email. Client was provided copy of SP prior to discharge. Person reported agreement to plan: Yes Reports/communication Outcome discussed with: ED/Personnel (Terra)
== END 2022-12-25 09:57 | disposition home or self-care (01) ==
PROVIDERS: Physician Assistant; Emergency Provider Registered Nurse Emergency; PCP Family Medicine
DX: R45.851 Suicidal ideations (principal); F90.9 Attention-deficit hyperactivity disorder, unspecified type; I15.1 Hypertension secondary to other renal disorders; Z86.16 Personal history of COVID-19
CPT/HCPCS: 80307; 81025; 99285; 81003; 81015; 99282

== ENCOUNTER 2022-12-27 03:48 | Emergency (ER) | payer MEDICAID, SELFPAY ==
[2022-12-27 03:54] VITALS: BP 155/104; PULSE 112; RESP 24; TEMP 36.4; O2SAT 97
--- NOTE | 2022-12-27 04:08 | W.ED.GENAD ---
Discharge Plan Disposition Patient Disposition: Home Condition: Improving Discharge Details Clinical Impression: Vomiting Primary Care Provider: Estephanie Burdick ED Provider: Margoth Donohue Home Meds and New Rx's Prescriptions: Continued melatonin 3 mg tablet 5 mg PO HS Rx Instructions: 1-2 tabs (3-6 mg) po at hs albuterol sulfate [Ventolin HFA] 90 mcg/actuation HFA aerosol inhaler 2 inh IH Q4H PRN labetalol 100 mg tablet 50 mg PO QAM Digestive Advantage Prob Gummy 250 million cell tablet,chewable 250 cell PO QAM lidocaine 3.5 % adhesive patch,medicated 1 patch topical DIRECTED Patient Comments: not on pt list medroxyprogesterone [Depo-Provera] 150 mg/mL syringe 150 mg IM every 3 months Qty: 1 5RF Rx Instructions: bring syringe to [facility] for administration. epinephrine 0.3 mg/0.3 mL auto-injector 0.3 ml SC ONCE PRN (Reason: anaphylaxis) Qty: 2 0RF Rx Instructions: as a single dose; may repeat once sertraline 25 mg tablet 50 mg PO HS Patient Comments: not on pt list Lactobacillus acidophilus Tablet 1 tab PO DAILY Patient Comments: not on pt list pantoprazole 40 mg Tablet,Delayed Release (Dr/Ec) 40 mg PO QAM quetiapine 25 mg Tablet 25 mg PO BID buspirone 5 mg tablet 5 mg PO BID ferrous sulfate 325 mg (65 mg iron) tablet 65 mg PO Q OTHER DAY nicotine (polacrilex) 2 mg gum 2 mg PO Q4H PRN nicotine 7 mg/24 hr patch 24 hour 1 patch transdermal Q24H ergocalciferol (vitamin D2) [Vitamin D2] 1,250 mcg (50,000 unit) Capsule 50,000 unit PO .WEEKLY acetaminophen 500 mg Tablet 1,000 mg PO PRN PRN clonidine HCl 0.2 mg tablet 0.2 mg PO HS Patient Comments: TAKE ONE TABLET BY MOUTH AT BEDTIME naproxen sodium 220 mg Tablet 220 mg PO PRN PRN ondansetron 4 mg tablet,disintegrating 4 mg PO Q8H PRNQty: 14 0RF Discharge Instructions Instructions: Acute Nausea and Vomiting (ED) Additional Instructions: Your blood tests are reassuring and showed no evidence of acute concerning or significant findings. Your COVID, influenza and RSV test today are negative. Drink plenty of fluids and get plenty of rest. Take the Phenergan as needed and directed for nausea and vomiting. Follow-up with your primary care doctor in 1 week. Return to the emergency department with any worsening or new concerning symptoms. Discharge Data Discharge Date/Time-TO BE ENTERED AT DEPARTURE: 12/27/22 06:16 Discharge Physician: Margoth Donohue Medical Decision Making 0400 -- 27-year-old female well-known to the emergency department with multiple frequent visits presents for vomiting for the past 3 days. Patient appears comfortable and nontoxic. Her abdomen is obese but soft and nontender. She has been vomiting for several days and is tachycardic with heart rate into the 110s, will obtain screening labs, place an IV give IV fluids, IV Zofran and reassess. We will also obtain urinalysis and FLUVID. As she has no abdominal tenderness or pain, do not see indication for imaging at this time. Urine test negative. Labs reviewed. White blood cell count 11. Normal electrolytes. Urinalysis negative for infection. FLUVID negative. 0530 -- Patient reassessed and she is vomiting again. We will give a dose of Phenergan and reassess with p.o. challenge. 0610 -- Patient reassessed and she was able to take p.o. and feels comfortable going home. She was given Phenergan to go home. Advised to follow up with the primary care doctor for re-evaluation. Usual and customary return precautions given prior to discharge. Medical Records Medical records reviewed: Yes I reviewed the patient's medical records. Lab Data Lab results reviewed: Yes I reviewed the patient's lab results. Labs: Laboratory Tests Range/Units 12/27/22 12/27/22 12/27/22 04:20 04:20 04:25 WBC (4.4-10.8) 10^3/uL 11.08 H RBC (3.93-5.22) 10^6/uL 5.30 H Hgb (11.2-15.7) g/dL 12.4 Hct (36.0-46.0) % 39.5 MCV (80-95) fL 75 L MCH (27.0-33.0) pg 23.4 L MCHC (32.0-36.0) % 31.4 L RDW (11.7-14.6) % 15.0 H Plt Count (130-400) 10^3/uL 272 MPV (8.0-11.0) fL 12.3 H Immature Gran % 0.5 Neutrophils % 71.4 Lymphocytes % 15.4 Monocytes % 8.5 Eosinophils % 3.6 Basophils % 0.6 Nucleated RBC % (0.0-0.3) % 0.0 Absolute Neutrophils (1.2-6.7) 10^3/uL 7.91 H Absolute Lymphocytes (1.2-3.4) 10^3/uL 1.71 Absolute Monocytes (0.1-0.8) 10^3/uL 0.94 H Absolute Eosinophils (0.0-0.7) 10^3/uL 0.40 Absolute Basophils (0.0-0.2) 10^3/uL 0.07 RBC Morphology See Below Microcytosis 2+ Sodium (136-145) mmol/L 138 Potassium (3.5-5.1) mmol/L 4.0 Chloride (98-107) mmol/L 102 Carbon Dioxide (21.0-32.0) mmol/L 23.7 Anion Gap (3-11) mmol/L 12.3 H BUN (7-18) mg/dL 8 Creatinine (0.55-1.02) mg/dL 0.7 Est GFR (CKD-EPI 2020) (mL/min/1.73m2) 123.01 Glucose (74-106) mg/dL 127 H Calcium (8.5-10.1) mg/dL 9.3 Total Bilirubin (0.2-1.0) mg/dL 0.5 AST (15-37) U/L 22 ALT (14-59) U/L 25 Alkaline Phosphatase (46-116) U/L 84 Total Protein (6.4-8.2) g/dL 7.4 Albumin (3.4-5.0) g/dL 4.1 Urine Color (Yellow) Urine Clarity (Clear) Urine pH (5-8) Ur Specific [place] (1.005-1.025) Urine Protein (Negative) mg/dL Urine Ketones (Negative) mg/dL Urine Blood (Negative) Urine Nitrite (Negative) Urine Bilirubin (Negative) Urine Urobilinogen (Up to 0.2) mg/dL Ur Leukocyte Esterase (Negative) Urine RBC (0-2) HPF Urine WBC (0-5) HPF Ur Epithelial Cells (Negative) HPF Urine Crystals (Negative) HPF Urine Bacteria (Negative) HPF Urine Mucus (Negative) Ur Culture Indicated? Urine Glucose (Negative) mg/dL COVID-19 Source Nasopharynx SARS-CoV-2 (PCR) (Negative) Negative Influenza Type A (PCR) (Negative) Negative Influenza Type B (PCR) (Negative) Negative RSV (PCR) (Negative) Negative Range/Units 12/27/22 04:25 WBC (4.4-10.8) 10^3/uL RBC (3.93-5.22) 10^6/uL Hgb (11.2-15.7) g/dL Hct (36.0-46.0) % MCV (80-95) fL MCH (27.0-33.0) pg MCHC (32.0-36.0) % RDW (11.7-14.6) % Plt Count (130-400) 10^3/uL MPV (8.0-11.0) fL Immature Gran % Neutrophils % Lymphocytes % Monocytes % Eosinophils % Basophils % Nucleated RBC % (0.0-0.3) % Absolute Neutrophils (1.2-6.7) 10^3/uL Absolute Lymphocytes (1.2-3.4) 10^3/uL Absolute Monocytes (0.1-0.8) 10^3/uL Absolute Eosinophils (0.0-0.7) 10^3/uL Absolute Basophils (0.0-0.2) 10^3/uL RBC Morphology Microcytosis Sodium (136-145) mmol/L Potassium (3.5-5.1) mmol/L Chloride (98-107) mmol/L Carbon Dioxide (21.0-32.0) mmol/L Anion Gap (3-11) mmol/L BUN (7-18) mg/dL Creatinine (0.55-1.02) mg/dL Est GFR (CKD-EPI 2020) (mL/min/1.73m2) Glucose (74-106) mg/dL Calcium (8.5-10.1) mg/dL Total Bilirubin (0.2-1.0) mg/dL AST (15-37) U/L ALT (14-59) U/L Alkaline Phosphatase (46-116) U/L Total Protein (6.4-8.2) g/dL Albumin (3.4-5.0) g/dL Urine Color (Yellow) Yellow Urine Clarity (Clear) Sl Cloudy Urine pH (5-8) 7.0 Ur Specific [place] (1.005-1.025) 1.025 Urine Protein (Negative) mg/dL 100 H Urine Ketones (Negative) mg/dL Negative Urine Blood (Negative) Negative Urine Nitrite (Negative) Negative Urine Bilirubin (Negative) Negative Urine Urobilinogen (Up to 0.2) mg/dL 0.2 Ur Leukocyte Esterase (Negative) Negative Urine RBC (0-2) HPF 0-2 Urine WBC (0-5) HPF 3-5 Ur Epithelial Cells (Negative) HPF Many Urine Crystals (Negative) HPF Negative Urine Bacteria (Negative) HPF Few Urine Mucus (Negative) Trace Ur Culture Indicated? No Urine Glucose (Negative) mg/dL Negative COVID-19 Source SARS-CoV-2 (PCR) (Negative) Influenza Type A (PCR) (Negative) Influenza Type B (PCR) (Negative) RSV (PCR) (Negative) HPI General Mode of arrival: ambulatory. Date/Time Provider Initiated Documentation: 12/27/22 04:04. Limitations to Documentation: no limitations. Information obtained by: patient. HPI Narrative: Patient is a 27-year-old female well-known to the emergency department with multiple frequent visits presents for nausea and vomiting for the past 3 days. She states she was having difficulty sleeping due to nausea this morning. She states she has been vomiting several times daily and states it is either bile or consists of food. She denies any fever, persistent abdominal pain, or diarrhea. She does admit to urinary frequency but denies any dysuria or hematuria. She denies any recent antibiotics, recent travel. She states she has been around her caregivers child who has been sick with similar symptoms. Related Data Home Medications Medication Instructions Recorded Confirmed acetaminophen 500 mg tablet 1,000 mg PO PRN PRN 10/30/19 12/28/22 albuterol sulfate 90 mcg/actuation 2 inh inhalation Q4H PRN 05/13/20 12/28/22 aerosol inhaler (Ventolin HFA) Bacillus coagulans 250 million 250 cell PO QAM 09/25/21 12/28/22 cell chewable tablet (Digestive Advantage Probiotic Gummy) labetalol 100 mg tablet 50 mg PO QAM 09/25/21 12/28/22 melatonin 3 mg tablet 5 mg PO HS 09/25/21 12/28/22 lidocaine 3.5 % topical patch 1 patch topical DIRECTED 05/17/22 12/28/22 epinephrine 0.3 mg/0.3 mL 0.3 ml subcut ONCE PRN anaphylaxis 08/14/22 12/28/22 injection, auto-injector #2 ea clonidine HCl 0.2 mg tablet 0.2 mg PO HS 10/03/22 12/28/22 naproxen sodium 220 mg tablet 220 mg PO PRN PRN 10/03/22 12/28/22 ondansetron 4 mg disintegrating 4 mg PO Q8H PRN #14 tabs 10/28/22 12/28/22 tablet medroxyprogesterone 150 mg/mL 150 mg IM every 3 months #1 SYRG 11/12/22 12/28/22 intramuscular syringe (Depo-Provera) sertraline 25 mg tablet 50 mg PO HS 11/20/22 12/28/22 Lactobacillus acidophilus 1 tab PO DAILY 11/22/22 12/28/22 pantoprazole 40 mg tablet,delayed 40 mg PO QAM 11/22/22 12/28/22 release quetiapine 25 mg tablet 25 mg PO BID 11/22/22 12/28/22 buspirone 5 mg tablet 5 mg PO BID 12/25/22 12/28/22 ergocalciferol (vitamin D2) 1,250 50,000 unit PO .WEEKLY 12/25/22 12/28/22 mcg (50,000 unit) capsule (Vitamin D2) ferrous sulfate 325 mg (65 mg 65 mg PO Q OTHER DAY 12/25/22 12/28/22 iron) tablet nicotine (polacrilex) 2 mg gum 2 mg PO Q4H PRN 12/25/22 12/28/22 nicotine 7 mg/24 hr daily 1 patch transdermal Q24H 12/25/22 12/28/22 transdermal patch Previous Rx's Medication Instructions Recorded epinephrine 0.3 mg/0.3 mL 0.3 ml subcut ONCE PRN anaphylaxis 08/14/22 injection, auto-injector #2 ea ondansetron 4 mg disintegrating 4 mg PO Q8H PRN #14 tabs 10/28/22 tablet medroxyprogesterone 150 mg/mL 150 mg IM every 3 months #1 SYRG 11/12/22 intramuscular syringe (Depo-Provera) Allergies Allergy/AdvReac Type Severity Reaction Status Date / Time fluticasone Allergy Severe unknown Verified 12/28/22 15:57 [From Flovent HFA] lisinopril Allergy Intermediate unknown Verified 12/28/22 15:57 paroxetine HCl [From Paxil] Allergy Intermediate Hives Verified 12/28/22 15:57 polyethylene glycol 3350 Allergy Intermediate unknown Verified 12/28/22 15:57 [From Miralax] risperidone [From Risperdal] Allergy Intermediate Hives Verified 12/28/22 15:57 NSAIDS (Non-Steroidal Allergy Due to Verified 12/28/22 15:57 Anti-Inflamma prior kidney damage acetaminophen AdvReac Nausea Unverified 12/28/22 15:57 amoxicillin AdvReac Nausea Verified 12/28/22 15:57 seafood Allergy Intermediate unknown Uncoded 12/28/22 15:57 enviornmental Allergy Mild sneezing Uncoded 12/28/22 15:57 General Stated Complaint: Nausea/Vomit/Diar MARY KAY: 3 Review of Systems All systems reviewed & are unremarkable except as noted in HPI and below Constitutional Constitutional: Reports as per HPI, Denies chills and Denies fever(s) Eyes Eyes: Denies blurry vision ENT Ears, Nose, Mouth, and Throat: Denies dizziness, Denies sore throat and Denies throat swelling Cardiovascular Cardiovascular: Denies chest pain and Denies dyspnea Respiratory Respiratory: Denies cough and Denies dyspnea Gastrointestinal Gastrointestinal: Denies abdominal pain, Denies diarrhea, Reports nausea and Reports vomiting Genitourinary Genitourinary: Denies hematuria and Denies dysuria Musculoskeletal Musculoskeletal: Denies back pain and Denies numbness Integumentary/Breasts Skin/Breast: Denies lesions and Denies rash Neurologic Neurologic: Denies dizziness, Denies localized weakness and Denies numbness Allergic/Immunologic Allergic/Immunologic: Denies throat swelling PFSH All Active Problems Suicidal ideation (Acute) Vomiting (Acute) Fall (Acute) Back pain (Acute) COVID (Acute) COVID (Acute) Hyperplastic colon polyp (Acute) Rectal polyp (Acute) Chronic kidney disease, stage 1 (Chronic 12/31/16) from renal infection as a child elevated BP resulting 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 Patient is using the Depo-Provera for menstrual cycle control. Depression (12/31/16) Drug abuse, episodic use Dysuria Family history of colon cancer Fatigue Generalized headaches (12/31/16) Hemolytic uremic syndrome History of allergic reaction History of mastoiditis Hypertrophy of tonsils and adenoids Illiteracy Per caregiver she is able to read and write, she needs assitance with comprehension of more complex words. Jaw pain Mesenteric lymphadenitis Otalgia, right ear Overactive bladder (02/09/18) Pain, dental PTSD (post-traumatic stress disorder) RBC microcytosis Steatosis of liver SASHA (stress urinary incontinence, female) Suicidal ideation TMJ tenderness, left Vitamin D deficiency Surgical History History of colonoscopy (~06/2022) History of kidney surgery Hx of tooth extraction Social History Smoking/Tobacco Use Status: Former Tobacco Use Quit Date: 11/27/22 Smoking risk assessment performed?: Yes Alcohol Intake: former Drug use: Current Sobriety Substance use type: marijuana Sexually active: Yes (female partner only now(May 2022). Has never had intercourse) Do you think of yourself as: lesbian/cash/homosexual What is your relationship status?: never Panel score (0-1 are the most socially isolated patients): 0 Do you feel safe at home: Yes Do you feel safe in your relationship?: Yes Additional Social history: lives alone - states she feels sad when she is alone Female Reproductive History Menstrual control method: progesterone injection History History 0 Para Hx # Term Pregnancies Multiple births Hx # Pregnancies Ectopic pregnancies AB induced Hx Number of Living Children AB spontaneous Exam Const General: cooperative and no acute distress Orientation: alert, awake and oriented x3 HENMT Head: normal to inspection Face and sinus: normal facial exam Eyes General: appearance normal, both eyes and all related structures Pupils: PERRL EOM: EOM intact bilaterally Neck Neck: normal visual inspection and No submandibular swelling Lymphatic: no lymphadenopathy noted Chest Chest: normal inspection of the chest and no tenderness Resp Effort & Inspection: normal respiratory effort and able to speak in complete sentences Auscultation: clear to auscultation bilaterally Cardio Rate: regular rate Rhythm: regular rhythm GI Inspection: normal to inspection and obesity Palpation: soft, not firm, not rigid and nontender Back/Spine/Pelvis Thoracic/Lumbar Spine: thoracic and lumbar spine normal to inspection Pelvis: no pain with anterior-posterior compression Skin General skin exam: no rashes or lesions noted Neuro General: patient alert, patient awake and patient oriented x3 Cognition: normal cognition Speech: speech normal Motor: muscle tone normal throughout Sensory Exam: no sensory deficits noted Extrem General: normal to inspection, full ROM, capillary refill normal, no calf tenderness bilaterally and no edema Psych Appearance: grossly normal Mental Status: mental status grossly normal Speech and Movement: speech and movement normal Affect: normal affect Course Vital Signs Vital signs: Vital Signs Temperature 97.6 F 12/27/22 03:54 Pulse 112 H 12/27/22 03:54 Respiratory Rate 24 12/27/22 03:54 Blood Pressure 155/104 H 12/27/22 03:54 Pulse Oximetry 97 12/27/22 03:54 Temperature 97.6 F 12/27/22 03:54 Temperature Source Tympanic 12/27/22 03:54 Pulse 112 H 12/27/22 03:54 Respiratory Rate 24 12/27/22 03:54 Respiratory Effort Normal 12/27/22 03:57 Blood Pressure 155/104 H 12/27/22 03:54 Blood Pressure Position Sitting 12/27/22 03:54 Pulse Oximetry 97 12/27/22 03:54 Oxygen Delivery Method Room Air 12/27/22 03:54 Oxygen Flow Rate 0 12/27/22 03:54
[2022-12-27 04:41] LABS: Abs Immature Grans 0.05 10^3/uL (0.0-0.06); Absolute Basophil Count 0.07 10^3/uL (0.0-0.2); Absolute Lymphocyte Count 1.71 10^3/uL (1.2-3.4); Absolute Monocyte Count 0.94 10^3/uL (0.1-0.8); Absolute Neutrophil Count 7.91 10^3/uL (1.2-6.7); Basophils % 0.6; Eosinophils % 3.6; HCT 39.5 % (36.0-46.0); HGB 12.4 g/dL (11.2-15.7); Immature Grans % 0.5; Lymphocytes % 15.4; MCH 23.4 pg (27.0-33.0); MCHC 31.4 % (32.0-36.0); MCV 75 fL (80-95); MPV 12.3 fL (8.0-11.0); Monocytes % 8.5; Neutrophils % 71.4; Platelet Count 272 10^3/uL (130-400); RDW-SD 40.2 fL; WBC 11.08 10^3/uL (4.4-10.8)
[2022-12-27] MEDS: Ondansetron 4 MG/2 ML VIAL IVP (04:41)
[2022-12-27] MEDS: Normal Saline 1,000 ML 1000 ML IV (04:42)
[2022-12-27] MEDS: LORazepam 0.5 MG TAB PO (04:42)
[2022-12-27 04:44] LABS: Diff Comment RBC Morph Reviewed; Microcytosis 2+
[2022-12-27 04:44] LABS: Bilirubin Negative (Negative); Blood Negative (Negative); Clarity Sl Cloudy (Clear); Glucose Negative (Negative); Ketones Negative (Negative); Leukocyte Esterase Negative (Negative); Nitrite Negative (Negative); Specific Gravity 1.025 (1.005-1.025); Urobilinogen 0.2 mg/dL (Up to 0.2)
[2022-12-27 04:47] LABS: ALT 25 U/L (14-59); AST 22 U/L (15-37); Albumin 4.1 g/dL (3.4-5.0); Alkaline Phosphatase 84 U/L (46-116); Anion Gap 12.3 mmol/L (3-11); BUN 8 mg/dL (7-18); Bilirubin, Total 0.5 mg/dL (0.2-1.0); CO2 23.7 mmol/L (21.0-32.0); CREATININE 0.7 mg/dL (0.55-1.02); Calcium 9.3 mg/dL (8.5-10.1); Chloride 102 mmol/L (98-107); Estimated GFR 123.01 (mL/min/1.73m2); Glucose 127 mg/dL (74-106); Sodium 138 mmol/L (136-145); Total Protein 7.4 g/dL (6.4-8.2)
[2022-12-27 04:55] LABS: Bacteria Few HPF (Negative); C & S Indicated? No; Crystals Negative HPF (Negative); Epithelial Cells Many HPF (Negative); Mucus Trace (Negative); RBC 0-2 HPF (0-2)
[2022-12-27 05:08] LABS: COVID-19 PCR Negative (Negative); Influenza A PCR Negative (Negative); Influenza B PCR Negative (Negative); RSV PCR Negative (Negative); Source Nasopharynx
[2022-12-27 06:14] VITALS: PULSE 98; RESP 16; TEMP 37.2; O2SAT 97
== END 2022-12-27 06:16 | disposition home or self-care (01) ==
PROVIDERS: Emergency Provider Physician Assistant; PCP Family Medicine
DX: R11.2 Nausea with vomiting, unspecified (principal); R00.0 Tachycardia, unspecified; Z20.822 Contact with and (suspected) exposure to COVID-19
CPT/HCPCS: 80053; 81025; 87637; 96361; 96365; 96375; 99284; 81003; 81015; 85025; J2405

== ENCOUNTER 2022-12-28 15:49 | Emergency (ER) | payer MEDICAID, SELFPAY ==
[2022-12-28] VITALS (38 sets, daily range): BP systolic 91–156; BP diastolic 73–109; PULSE 111–148; RESP 15–33; TEMP 36.5–38.4; O2SAT 95–100
--- NOTE | 2022-12-28 16:15 | DI.CT_ITS ---
Exam(s) CT HEAD CERVICAL SPINE WO EXAM: CT HEAD CERVICAL SPINE WO CLINICAL HISTORY: fall down 13 stairs, head/neck pain. TECHNIQUE: Imaging Protocol: Axial computed tomography images with coronal and sagittal reformatted images were created and reviewed COMPARISON: CT HEAD WITHOUT CONTRAST from 12/11/2016 FINDINGS: The examination is limited due to patient motion artifact. CT Head: Ventricles and Extra axial spaces: Normal in size and morphology for the patient's age. Hemorrhage: None. Cerebral parenchyma: Normal. Midline shift: None. Brainstem/Cerebellum: Normal. Calvarium: Normal. Visualized Paranasal sinuses/Mastoids: Clear. Soft Tissues: Unremarkable. CT Cervical Spine: Bones: No acute fracture or subluxation. Soft Tissues: Unremarkable. Lung Apices: Clear. IMPRESSION: 1. No acute intracranial process. 2. No acute fracture or subluxation in the cervical spine. RADIATION DOSE DELIVERED: 1,600.8mGy.cm Total DLP DATA REPOSITORY: All CT scans at this facility are submitted to the National Radiology Data Registry (NRDR) Dose Index Registry (DIR) with the [employer] (ACR). RADIATION OPTIMIZATION: All CT scans at this facility use at least one of these dose optimization te chniques: automated exposure control; mA and/or kV adjustment per patient size (includes targeted exa ms where dose is matched to clinical indication); or iterative reconstruction.
--- NOTE | 2022-12-28 16:15 | DI.CT_ITS ---
Exam(s) CT THORACIC LUMBAR SPINE WO CT CHEST/ABD/PEL W EXAM: CT CHEST/ABD/PEL W and CT thoracic and lumbar spine recons CLINICAL HISTORY: fall down 13 stairs, back/trunk pain TECHNIQUE: Imaging Protocol: Axial computed tomography images with coronal and sagittal reformatted images were created and reviewed CONTRAST MATERIAL: Intravenous: Omnipaque 350 contrast volume:100 mL Oral: No COMPARISON: CT CT CHEST PE ABD PELVIS W from 10/05/[address] THORACIC LUMBAR SPINE WO from 12/28/2022 FINDINGS: The examination is limited due to patient motion artifact. CHEST: Tracheobronchial tree: Patent where visualized. Pulmonary parenchyma: No consolidation or dominant measurable mass. No architectural distortion. Visualized thyroid gland: Unremarkable. Mediastinum and Steph: No dominant adenopathy or fluid collection. The esophagus is unremarkable. The re is again seen soft tissue in the superior mediastinum likely reflecting residual thymic tissue. Pleura: No effusion or pneumothorax. Heart: The heart is not dilated. No coronary artery calcifications are seen. No pericardial effusion. Pulmonary arteries: The segmental and subsegmental pulmonary arteries are inadequately opacified for evaluation of pulmonary emboli due to bolus timing. No central pulmonary embolus is identified. Aorta: Thoracic aorta non-dilated. Lymph nodes: Within normal limits. Soft tissues: Unremarkable. Bones:Within normal limits for the patient's age. Thoracic spine recons: There is normal alignment of the thoracic spine. No acute fractures or sublux ations are present. ABDOMEN: Liver: Normal density. No measurable mass. Portal, Superior Mesenteric, and Splenic Veins: Unremarkable. Gallbladder and Biliary Tract: No radiodense calculus or dilation. Pancreas: Normal density, no abnormal calcifications or inflammatory process. Spleen: Normal. Adrenals: No masses seen. Kidneys: Normal size, contour and axis. No radiodense stones or obstructive uropathy. No masses seen. Abdominal Aorta: Abdominal portion non-dilated. Bowel: No obstruction or bowel wall thickening. There is no evidence of appendicitis. Peritoneal Cavity: No ascites. There is again seen lashonda small bowel mesentery which is nonspecific. No free air. Lymph Nodes: There again seen mildly shotty lymph nodes in the mesentery. Bones: Within normal limits for the patient's age. Soft Tissues: Unremarkable. Lumbar spine recons: No acute fractures or subluxations are seen in the lumbar spine. PELVIS: Bladder: Symmetric distention, no gross wall thickening. Reproductive Organs: Unremarkable as visualized. Lymph Nodes: Within normal limits. Bones: Within normal limits. IMPRESSION: 1. No acute abnormality seen in the abdominal or pelvic CT examination. 2. No acute pulmonary process. 3. Similar appearance of the enlarged mesenteric lymph nodes and lashonda mesentery. 4. No acute fracture or subluxation is seen in the thoracic or lumbar spine. RADIATION DOSE DELIVERED: 1741.7 mGy.cm Total DLP DATA REPOSITORY: All CT scans at this facility are submitted to the National Radiology Data Registry (NRDR) Dose Index Registry (DIR) with the [employer] ([employer]). RADIATION OPTIMIZATION: All CT scans at this facility use at least one of these dose optimization te chniques: automated exposure control; mA and/or kV adjustment per patient size (includes targeted exa ms where dose is matched to clinical indication); or iterative reconstruction.
--- NOTE | 2022-12-28 16:34 | ED.GENADUL_ITS ---
Discharge Plan Disposition Patient Disposition: Home Condition: Improving Discharge Details Clinical Impression: Fall, Back pain Primary Care Provider: Estephanie Burdick ED Provider: Oswald Tripp Home Meds and New Rx's Prescriptions: Continued melatonin 3 mg tablet 5 mg PO HS Rx Instructions: 1-2 tabs (3-6 mg) po at hs albuterol sulfate [Ventolin HFA] 90 mcg/actuation HFA aerosol inhaler 2 inh IH Q4H PRN labetalol 100 mg tablet 50 mg PO QAM Digestive Advantage Prob Gummy 250 million cell tablet,chewable 250 cell PO QAM lidocaine 3.5 % adhesive patch,medicated 1 patch topical DIRECTED Patient Comments: not on pt list medroxyprogesterone [Depo-Provera] 150 mg/mL syringe 150 mg IM every 3 months Qty: 1 5RF Rx Instructions: bring syringe to [facility] for administration. epinephrine 0.3 mg/0.3 mL auto-injector 0.3 ml SC ONCE PRN (Reason: anaphylaxis) Qty: 2 0RF Rx Instructions: as a single dose; may repeat once sertraline 25 mg tablet 50 mg PO HS Patient Comments: not on pt list Lactobacillus acidophilus Tablet 1 tab PO DAILY Patient Comments: not on pt list pantoprazole 40 mg Tablet,Delayed Release (Dr/Ec) 40 mg PO QAM quetiapine 25 mg Tablet 25 mg PO BID buspirone 5 mg tablet 5 mg PO BID ferrous sulfate 325 mg (65 mg iron) tablet 65 mg PO Q OTHER DAY nicotine (polacrilex) 2 mg gum 2 mg PO Q4H PRN nicotine 7 mg/24 hr patch 24 hour 1 patch transdermal Q24H ergocalciferol (vitamin D2) [Vitamin D2] 1,250 mcg (50,000 unit) Capsule 50,000 unit PO .WEEKLY acetaminophen 500 mg Tablet 1,000 mg PO PRN PRN clonidine HCl 0.2 mg tablet 0.2 mg PO HS Patient Comments: TAKE ONE TABLET BY MOUTH AT BEDTIME naproxen sodium 220 mg Tablet 220 mg PO PRN PRN ondansetron 4 mg tablet,disintegrating 4 mg PO Q8H PRNQty: 14 0RF Discharge Instructions Instructions: Back Pain (ED), Fall Prevention (ED) Additional Instructions: Work-up in the ER does not reveal any obvious emergent process. Please watch for new or worsening symptoms and return to the ER for any concerns. Gentle stretching as tolerated. Cool and/or warm compresses every 2 hours for 20 minutes. Please contact your primary care provider tomorrow to discuss your ER visit, ongoing symptoms, and need for outpatient reevaluation Discharge Data Discharge Date/Time-TO BE ENTERED AT DEPARTURE: 12/28/22 20:30 Medical Decision Making This is a 27-year-old female well-known to our ER, PSHx that includes ADHD, chronic abdominal pain with nausea and vomiting, and bipolar type II disorder, depression, episodic drug use, presenting with ongoing abdominal pain, nausea, vomiting, intermittent diarrhea, concern for dehydration, reports that she fell this morning in the shower injuring her low back and then just prior to arrival slipped falling down 13 stairs. She tells me that she is unsure whether or not she hit her head, unsure of LOC. Reports trunk pain, back pain status post fall. Clinically she is anxious, tearful, reports that the c-collar is causing her to have anxiety. Unfortunately she is a rather vague, poor and unreliable historian. Plan to obtain IV access, trauma scan head, cervical spine, chest, abdomen, pelvis. Will obtain routine screening laboratory values. Patient received IV Tylenol and a liter of fluid Patient reports that the discomfort is improving but not resolved, continues to report anxiety, heart rate now down into the 130s. Later received IV Toradol and 1 mg Ativan Receiving another liter of IV fluid. No longer anxious. Heart rate now 108. When reviewing historical vital signs, patient does seem to have mild tachycardia very frequently. Laboratory values do not reveal any obvious emergent process. CT imaging reveals no acute process. Mesenteric lymph nodes remain enlarged, this certainly may explain her ongoing abdominal discomfort, nausea, vomiting, mesenteric adenitis, etc. C-collar was removed. Patient reports significant improvement overall of her discomfort. She is able to ambulate steadily without assistance and she is tolerating p.o. intake without difficulty. After discussing her overall work- up, reassuring laboratory values and CT imaging she is comfortable with discharge. Standard discharge and return precautions were provided. Patient understands, is agreeable to this plan, and has no additional questions or concerns upon discharge. This documentation was generated using Skinf[employer]ation system, please disregard any oddities of phrase or misspellings. Medical Records Medical records reviewed: Yes I reviewed the patient's medical records. Imaging Data Radiologic Study: Attestation: I personally reviewed and interpreted this imaging study as follows: Imaging: CT Scan Radiologist's impression: PROCEDURE INFORMATION: Exam: CT Head Without Contrast Exam date and time: 12/28/2022 5:01 PM Age: 27 years old Clinical indication: Injury or trauma; Fall; Blunt trauma (contusions or hematomas); Patient HX: Fell down 13 stairs TECHNIQUE: Imaging protocol: Computed tomography of the head without contrast. COMPARISON: CT HEAD WITHOUT CONTRAST 12/11/2016 4:54 PM FINDINGS: Brain: Normal. No hemorrhage. Unremarkable white matter. No mass effect. Cerebral ventricles: No ventriculomegaly. Paranasal sinuses: There is minimal mucosal thickening in the paranasal sinuses. Mastoid air cells: Visualized mastoid air cells are well aerated. Bones/joints: Unremarkable. No acute fracture. Soft tissues: Unremarkable. IMPRESSION: No acute abnormality. PROCEDURE INFORMATION: Exam: CT Cervical Spine Without Contrast Exam date and time: 12/28/2022 5:01 PM Age: 27 years oldClinical indication: Injury or trauma; Fall; Blunt trauma (contusions or hematomas); Patient HX: Fell down 13 stairs TECHNIQUE: Imaging protocol: Computed tomography of the cervical spine without contrast. COMPARISON: CT CERVICAL SPINE WITHOUT CONTRA 08/06/2016 2:50 PM FINDINGS: Bones/joints: No acute fracture. Normal alignment. No significant disc bulge or herniation. No severe spinal canal stenosis. No significant neural foraminal narrowing. Lungs: Lung apices are normal. Soft tissues: Unremarkable. IMPRESSION: No acute findings Radiologic Study #2: Attestation: I personally reviewed and interpreted this imaging study as follows: Imaging: CT Scan Radiologist's impression: PROCEDURE INFORMATION: Exam: CT Thoracic Spine Without Contrast Exam date and time: 12/28/2022 5:21 PM Age: 27 years old Clinical indication: Injury or trauma; Patient HX: Fall down 13 stairs back pain TECHNIQUE: Imaging protocol: Computed tomography of the thoracic spine without contrast. COMPARISON: CT THORACIC SPINE WO 05/08/2022 10:33 PM FINDINGS: Bones/joints: Alignment is normal. Vertebral body heights are maintained. Intervertebral disc spaces are preserved. No significant spinal canal or neural foraminal stenosis. Soft tissues: Unremarkable. IMPRESSION: No acute fracture. PROCEDURE INFORMATION: Exam: CT Lumbar Spine Without Contrast Exam date and time: 12/28/2022 5:21 PM Age: 27 years old Clinical indication: Injury or trauma; Patient HX: Fall down 13 stairs back pain TECHNIQUE: Imaging protocol: Computed tomography of the lumbar spine without contrast.COMPARISON: CT ABDOMEN PELVIS WO 09/15/2022 8:05 PM FINDINGS: Bones/joints: Normal alignment. Vertebral body heights maintained. Intervertebral disc spaces preserved. No significant spinal canal or neural foraminal stenosis. Soft tissues: Unremarkable. IMPRESSION: No acute fracture. Radiologic Study #3: Attestation: I personally reviewed and interpreted this imaging study as follows: Imaging: CT Scan Radiologist's impression: PROCEDURE INFORMATION: Exam: CT Chest With Contrast; Diagnostic Exam date and time: 12/28/2022 5:21 PM Age: 27 years old Clinical indication: Injury or trauma; Fall; Blunt trauma (contusions or hematomas); Patient HX: Fell down 13 stairs TECHNIQUE: Imaging protocol: Diagnostic computed tomography of the chest with contrast. COMPARISON: CT CHEST PE ABD PELVIS W 10/05/2022 9:01 PM FINDINGS: Lungs: Unremarkable. No consolidation. No masses. Pleural spaces: No pneumothorax. No pleural effusion. Heart: No cardiomegaly. No pericardial effusion. Lymph nodes: Unremarkable. No enlarged lymph nodes. Vasculature: Unremarkable. No aortic aneurysm. Bones/joints: Degenerative changes. No acute fracture. Soft tissues: Unremarkable. IMPRESSION: No acute/traumatic abnormality in the chest. PROCEDURE INFORMATION: Exam: CT Abdomen And Pelvis With Contrast Exam date and time: 12/28/2022 5:21 PM Age: 27 years oldClinical indication: Injury or trauma; Fall; Blunt trauma (contusions or hematomas); Patient HX: Fell down 13 stairs TECHNIQUE: Imaging protocol: Computed tomography of the abdomen and pelvis with contrast. COMPARISON: CT ABDOMEN PELVIS WO 09/15/2022 8:05 PM FINDINGS: Liver: Normal. No mass. Gallbladder and bile ducts: Normal. No calcified stones. No ductal dilation. Pancreas: Normal. No ductal dilation. Spleen: Normal. No splenomegaly. Adrenal glands: Normal. No mass. Kidneys and ureters: Normal. No hydronephrosis. Stomach and bowel: Unremarkable. No obstruction. No mucosal thickening. Appendix: No evidence of appendicitis. Intraperitoneal space: There is a lashonda small bowel mesentery, nonspecific. No free fluid or free air. Vasculature: No abdominal aortic aneurysm. Lymph nodes: There are multiple enlarged mesenteric lymph nodes, for example a 1.1 cm short axis node in the left upper quadrant on series 7, image 38. Urinary bladder: Unremarkable as visualized. Reproductive: Unremarkable as visualized. Bones/joints: Degenerative changes in the lumbar spine. No acute fracture. Soft tissues: Unremarkable. IMPRESSION: 1. No acute/traumatic abnormality in the abdomen or pelvis. 2. Lashonda mesentery, similar to prior. Differential considerations include mesenteric edema, inflammation and infiltration. 3. Mesenteric adenopathy. Lab Data Lab results reviewed: Yes I reviewed the patient's lab results. Labs: Laboratory Tests Range/Units 12/28/22 12/28/22 12/28/22 16:12 16:50 16:50 WBC (4.4-10.8) 10^3/uL 10.17 RBC (3.93-5.22) 10^6/uL 6.14 H Hgb (11.2-15.7) g/dL 14.1 Hct (36.0-46.0) % 46.2 H MCV (80-95) fL 75 L MCH (27.0-33.0) pg 23.0 L MCHC (32.0-36.0) % 30.5 L RDW (11.7-14.6) % 15.3 H Plt Count (130-400) 10^3/uL 267 MPV (8.0-11.0) fL 12.4 H Immature Gran % 0.5 Neutrophils % 85.3 Lymphocytes % 7.1 Monocytes % 4.8 Eosinophils % 1.9 Basophils % 0.4 Nucleated RBC % (0.0-0.3) % 0.0 Absolute Neutrophils (1.2-6.7) 10^3/uL 8.68 H Absolute Lymphocytes (1.2-3.4) 10^3/uL 0.72 L Absolute Monocytes (0.1-0.8) 10^3/uL 0.49 Absolute Eosinophils (0.0-0.7) 10^3/uL 0.19 Absolute Basophils (0.0-0.2) 10^3/uL 0.04 PT (9.3-11.0) sec INR (0.9-1.1) APTT (21.5-31.9) sec Sodium (136-145) mmol/L 139 Potassium (3.5-5.1) mmol/L 3.6 Chloride (98-107) mmol/L 103 Carbon Dioxide (21.0-32.0) mmol/L 26.8 Anion Gap (3-11) mmol/L 9.2 BUN (7-18) mg/dL 11 Creatinine (0.55-1.02) mg/dL 0.9 Est GFR (CKD-EPI 2020) (mL/min/1.73m2) 90.98 Glucose (74-106) mg/dL 93 Calcium (8.5-10.1) mg/dL 9.4 Magnesium (1.8-2.4) mg/dL 2.0 Total Bilirubin (0.2-1.0) mg/dL 0.8 AST (15-37) U/L 12 L ALT (14-59) U/L 28 Alkaline Phosphatase (46-116) U/L 91 Total Protein (6.4-8.2) g/dL 8.4 H Albumin (3.4-5.0) g/dL 4.4 Lipase (16-77) U/L 17 Urine Color (Yellow) Urine Clarity (Clear) Urine pH (5-8) Ur Specific [place] (1.005-1.025) Urine Protein (Negative) mg/dL Urine Ketones (Negative) mg/dL Urine Blood (Negative) Urine Nitrite (Negative) Urine Bilirubin (Negative) Urine Urobilinogen (Up to 0.2) mg/dL Ur Leukocyte Esterase (Negative) Urine Glucose (Negative) mg/dL Urine Opiates Screen (Negative) Urine Methadone Screen (Negative) Ur Barbiturates Screen (Negative) Ur Tricyclics Screen (Negative) Ur Amphetamines Screen (Negative) U Benzodiazepines Scrn (Negative) Urine Cocaine Screen (Negative) Ur THC Screen (Negative) Ethyl Alcohol (<10) mg/dL < 3.0 COVID-19 Source Nasopharynx SARS-CoV-2 (PCR) (Negative) Negative Influenza Type A (PCR) (Negative) Negative Influenza Type B (PCR) (Negative) Negative RSV (PCR) (Negative) Negative Range/Units 12/28/22 12/28/22 12/28/22 16:50 18:04 18:04 WBC (4.4-10.8) 10^3/uL RBC (3.93-5.22) 10^6/uL Hgb (11.2-15.7) g/dL Hct (36.0-46.0) % MCV (80-95) fL MCH (27.0-33.0) pg MCHC (32.0-36.0) % RDW (11.7-14.6) % Plt Count (130-400) 10^3/uL MPV (8.0-11.0) fL Immature Gran % Neutrophils % Lymphocytes % Monocytes % Eosinophils % Basophils % Nucleated RBC % (0.0-0.3) % Absolute Neutrophils (1.2-6.7) 10^3/uL Absolute Lymphocytes (1.2-3.4) 10^3/uL Absolute Monocytes (0.1-0.8) 10^3/uL Absolute Eosinophils (0.0-0.7) 10^3/uL Absolute Basophils (0.0-0.2) 10^3/uL PT (9.3-11.0) sec 9.9 INR (0.9-1.1) 1.0 APTT (21.5-31.9) sec 28.8 Sodium (136-145) mmol/L Potassium (3.5-5.1) mmol/L Chloride (98-107) mmol/L Carbon Dioxide (21.0-32.0) mmol/L Anion Gap (3-11) mmol/L BUN (7-18) mg/dL Creatinine (0.55-1.02) mg/dL Est GFR (CKD-EPI 2020) (mL/min/1.73m2) Glucose (74-106) mg/dL Calcium (8.5-10.1) mg/dL Magnesium (1.8-2.4) mg/dL Total Bilirubin (0.2-1.0) mg/dL AST (15-37) U/L ALT (14-59) U/L Alkaline Phosphatase (46-116) U/L Total Protein (6.4-8.2) g/dL Albumin (3.4-5.0) g/dL Lipase (16-77) U/L Urine Color (Yellow) Yellow Urine Clarity (Clear) Clear Urine pH (5-8) 6.0 Ur Specific [place] (1.005-1.025) 1.015 Urine Protein (Negative) mg/dL Negative Urine Ketones (Negative) mg/dL Trace H Urine Blood (Negative) Negative Urine Nitrite (Negative) Negative Urine Bilirubin (Negative) Negative Urine Urobilinogen (Up to 0.2) mg/dL 0.2 Ur Leukocyte Esterase (Negative) Negative Urine Glucose (Negative) mg/dL Negative Urine Opiates Screen (Negative) Negative Urine Methadone Screen (Negative) Negative Ur Barbiturates Screen (Negative) Negative Ur Tricyclics Screen (Negative) Negative Ur Amphetamines Screen (Negative) Negative U Benzodiazepines Scrn (Negative) Negative Urine Cocaine Screen (Negative) Negative Ur THC Screen (Negative) Negative Ethyl Alcohol (<10) mg/dL COVID-19 Source SARS-CoV-2 (PCR) (Negative) Influenza Type A (PCR) (Negative) Influenza Type B (PCR) (Negative) RSV (PCR) (Negative) HPI General Mode of arrival: EMS . Date/Time Provider Initiated Documentation: 12/28/22 16:06 . Limitations to Documentation: no limitations . Information obtained by: patient and EMS . HPI Narrative: This is a 27-year-old female presenting to the ER reporting abdominal pain, nausea and vomiting for the past 6 days, has been seen for this, concern for potential dehydration, subsequently had 2 falls today, the first in the shower injuring her low back, the second was down 13 stairs, she is unsure whether she struck her head or not, unsure if there was LOC or not. She denies any active headache, visual changes, neck pain, states that she now has some discomfort in her neck from the c-collar put on by EMS. She denies any chest pain abdominal pain, nausea, weakness or numbness. She denies incontinence. She reports her pain is moderate to severe, worse with movement. Related Data Home Medications Medication Instructions Recorded Confirmed acetaminophen 500 mg tablet 1,000 mg PO PRN PRN 10/30/19 12/28/22 albuterol sulfate 90 mcg/actuation 2 inh inhalation Q4H PRN 05/13/20 12/28/22 aerosol inhaler (Ventolin HFA) Bacillus coagulans 250 million 250 cell PO QAM 09/25/21 12/28/22 cell chewable tablet (Digestive Advantage Probiotic Gummy) labetalol 100 mg tablet 50 mg PO QAM 09/25/21 12/28/22 melatonin 3 mg tablet 5 mg PO HS 09/25/21 12/28/22 lidocaine 3.5 % topical patch 1 patch topical DIRECTED 05/17/22 12/28/22 epinephrine 0.3 mg/0.3 mL 0.3 ml subcut ONCE PRN anaphylaxis 08/14/22 12/28/22 injection, auto-injector #2 ea clonidine HCl 0.2 mg tablet 0.2 mg PO HS 10/03/22 12/28/22 naproxen sodium 220 mg tablet 220 mg PO PRN PRN 10/03/22 12/28/22 ondansetron 4 mg disintegrating 4 mg PO Q8H PRN #14 tabs 10/28/22 12/28/22 tablet medroxyprogesterone 150 mg/mL 150 mg IM every 3 months #1 SYRG 11/12/22 12/28/22 intramuscular syringe (Depo-Provera) sertraline 25 mg tablet 50 mg PO HS 11/20/22 12/28/22 Lactobacillus acidophilus 1 tab PO DAILY 11/22/22 12/28/22 pantoprazole 40 mg tablet,delayed 40 mg PO QAM 11/22/22 12/28/22 release quetiapine 25 mg tablet 25 mg PO BID 11/22/22 12/28/22 buspirone 5 mg tablet 5 mg PO BID 12/25/22 12/28/22 ergocalciferol (vitamin D2) 1,250 50,000 unit PO .WEEKLY 12/25/22 12/28/22 mcg (50,000 unit) capsule (Vitamin D2) ferrous sulfate 325 mg (65 mg 65 mg PO Q OTHER DAY 12/25/22 12/28/22 iron) tablet nicotine (polacrilex) 2 mg gum 2 mg PO Q4H PRN 12/25/22 12/28/22 nicotine 7 mg/24 hr daily 1 patch transdermal Q24H 12/25/22 12/28/22 transdermal patch Previous Rx's Medication Instructions Recorded epinephrine 0.3 mg/0.3 mL 0.3 ml subcut ONCE PRN anaphylaxis 08/14/22 injection, auto-injector #2 ea ondansetron 4 mg disintegrating 4 mg PO Q8H PRN #14 tabs 10/28/22 tablet medroxyprogesterone 150 mg/mL 150 mg IM every 3 months #1 SYRG 11/12/22 intramuscular syringe (Depo-Provera) Allergies Allergy/AdvReac Type Severity Reaction Status Date / Time fluticasone Allergy Severe unknown Verified 12/28/22 15:57 [From Flovent HFA] lisinopril Allergy Intermediate unknown Verified 12/28/22 15:57 paroxetine HCl [From Paxil] Allergy Intermediate Hives Verified 12/28/22 15:57 polyethylene glycol 3350 Allergy Intermediate unknown Verified 12/28/22 15:57 [From Miralax] risperidone [From Risperdal] Allergy Intermediate Hives Verified 12/28/22 15:57 NSAIDS (Non-Steroidal Allergy Due to Verified 12/28/22 15:57 Anti-Inflamma prior kidney damage acetaminophen AdvReac Nausea Unverified 12/28/22 15:57 amoxicillin AdvReac Nausea Verified 12/28/22 15:57 seafood Allergy Intermediate unknown Uncoded 12/28/22 15:57 enviornmental Allergy Mild sneezing Uncoded 12/28/22 15:57 General Stated Complaint: Fall/Non TraumaCriteria MARY KAY: 3 Review of Systems Constitutional Constitutional: Denies fever(s), Denies headache(s) and Denies weakness Eyes Eyes: Denies change in vision ENT Ears, Nose, Mouth, and Throat: Denies headache(s) and Denies neck pain Cardiovascular Cardiovascular: Denies chest pain and Denies dyspnea Respiratory Respiratory: Denies cough and Denies dyspnea Gastrointestinal Gastrointestinal: Denies abdominal pain, Reports nausea and Denies vomiting Musculoskeletal Musculoskeletal: Reports back pain, Denies neck pain, Denies numbness and Denies tingling Integumentary/Breasts Skin/Breast: Denies rash Neurologic Neurologic: Denies headache(s), Denies numbness, Denies tingling and Denies weakness Psychiatric Psychiatric: Reports anxiety Hematologic/Lymphatic Hematologic/Lymphatic: Denies easy bleeding and Denies easy bruising PFSH All Active Problems Suicidal ideation (Acute) Vomiting (Acute) Fall (Acute) Back pain (Acute) COVID (Acute) COVID (Acute) Hyperplastic colon polyp (Acute) Rectal polyp (Acute) Chronic kidney disease, stage 1 (Chronic 12/31/16) from renal infection as a child elevated BP resulting 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 Patient is using the Depo- Provera for menstrual cycle control. Depression (12/31/16) Drug abuse, episodic use Dysuria Family history of colon cancer Fatigue Generalized headaches (12/31/16) Hemolytic uremic syndrome History of allergic reaction History of mastoiditis Hypertrophy of tonsils and adenoids Illiteracy Per caregiver she is able to read and write, she needs assitance with comprehension of more complex words. Jaw pain Mesenteric lymphadenitis Otalgia, right ear Overactive bladder (02/09/18) Pain, dental PTSD (post-traumatic stress disorder) RBC microcytosis Steatosis of liver SASHA (stress urinary incontinence, female) Suicidal ideation TMJ tenderness, left Vitamin D deficiency Surgical History History of colonoscopy (~06/2022) History of kidney surgery Hx of tooth extraction Social History Smoking/Tobacco Use Status: Former Tobacco Use Quit Date: 11/27/22 Smoking risk assessment performed?: Yes Alcohol Intake: former Drug use: Current Sobriety Substance use type: marijuana Sexually active: Yes (female partner only now(May 2022). Has never had int ercourse) Do you think of yourself as: lesbian/cash/homosexual What is your relationship status?: never Panel score (0-1 are the most socially isolated patients): 0 Do you feel safe at home: Yes Do you feel safe in your relationship?: Yes Additional Social history: lives alone - states she feels sad when she is alone Female Reproductive History Menstrual control method: progesterone injection History History 0 Para Hx # Term Pregnancies Multiple births Hx # Pregnancies Ectopic pregnancies AB induced Hx Number of Living Children AB spontaneous Exam Const General: cooperative, healthy appearing and anxious (Tearful, yelling and crying) Orientation: alert, awake and oriented x3 HENMT Head: normal to inspection, no palpable skull fracture, normocephalic and atraumatic Face and sinus: normal facial exam Mouth: moist mucous membranes Eyes General: appearance normal, both eyes and all related structures Alignment and Position: alignment normal Periorbital: periorbital findings normal Eyelids: eyelids normal Conjunctivae: conjunctivae normal Sclera: sclerae normal Cornea: corneas normal Pupils: PERRL EOM: EOM intact bilaterally Direct ophthalmoscopy: normal light reflex Neck Neck: normal visual inspection, trachea midline, supple, nontender and other (In a hard c-collar) Chest Chest: normal inspection of the chest and normal palpation of entire chest wall Resp Effort & Inspection: normal respiratory effort and able to speak in complete sentences Auscultation: clear to auscultation bilaterally Cardio Rate: tachycardic (140s) Rhythm: regular rhythm GI Inspection: normal to inspection Palpation: soft, not firm, no guarding, no pulsatile masses and nontender Auscultation: normal bowel sounds Back/Spine/Pelvis Back: no CVA tenderness, back tenderness (Diffuse thoracic and lumbar, no step- off or midline point tenderness) and other (No ecchymosis or spasm) Thoracic/Lumbar Spine: straight leg raise positive (Bilateral 10 degrees) Skin General skin exam: no rashes or lesions noted Neuro General: patient alert, patient awake, patient oriented x3, moves all extremities and no focal motor deficits Cranial Nerves: CN's II-XI intact bilaterally Cognition: normal cognition Speech: speech normal Motor: muscle tone normal throughout and strength 5/5 throughout Sensory Exam: no sensory deficits noted Extrem General: full ROM and capillary refill normal Other: Healing superficial self-inflicted abrasions to right forearm and bilateral upper extremities, no signs of secondary infection. Psych Appearance: grossly normal Mental Status: mental status grossly normal Course Vital Signs Vital signs: Vital Signs Temperature 38.4 C H 12/28/22 15:52 Pulse 148 H 12/28/22 15:52 Respiratory Rate 28 H 12/28/22 15:52 Blood Pressure 156/109 H 12/28/22 15:52 Pulse Oximetry 95 12/28/22 15:52 Temperature 38.4 C H 12/28/22 15:52 Temperature Source Oral 12/28/22 15:52 Pulse 148 H 12/28/22 15:52 Respiratory Rate 28 H 12/28/22 15:52 Respiratory Effort Normal 12/28/22 15:56 Blood Pressure 156/109 H 12/28/22 15:52 Blood Pressure Position Sitting 12/28/22 15:52 Pulse Oximetry 95 12/28/22 15:52 Oxygen Delivery Method Room Air 12/28/22 15:52 Oxygen Flow Rate 0 12/28/22 15:52 Pain Level 10 12/28/22 15:52
[2022-12-28 17:04] LABS: Abs Immature Grans 0.05 10^3/uL (0.0-0.06); Absolute Basophil Count 0.04 10^3/uL (0.0-0.2); Absolute Eosinophil Count 0.19 10^3/uL (0.0-0.7); Absolute Lymphocyte Count 0.72 10^3/uL (1.2-3.4); Absolute Monocyte Count 0.49 10^3/uL (0.1-0.8); Absolute Neutrophil Count 8.68 10^3/uL (1.2-6.7); Basophils % 0.4; Eosinophils % 1.9; HCT 46.2 % (36.0-46.0); HGB 14.1 g/dL (11.2-15.7); Immature Grans % 0.5; Lymphocytes % 7.1; MCHC 30.5 % (32.0-36.0); MCV 75 fL (80-95); MPV 12.4 fL (8.0-11.0); Monocytes % 4.8; Neutrophils % 85.3; Platelet Count 267 10^3/uL (130-400); RBC 6.14 10^6/uL (3.93-5.22); RDW 15.3 % (11.7-14.6); RDW-SD 40.8 fL; WBC 10.17 10^3/uL (4.4-10.8)
[2022-12-28] MEDS: Normal Saline - Diluent 50 ML VIAL IJ (17:05)
[2022-12-28] MEDS: Omnipaque 350 MG/ML 100 ML BTL IJ (17:05)
[2022-12-28 17:20] LABS: COVID-19 PCR Negative (Negative); Influenza A PCR Negative (Negative); Influenza B PCR Negative (Negative); RSV PCR Negative (Negative)
[2022-12-28 17:26] LABS: PTT Activated 28.8 sec (21.5-31.9); Prothrombin Time 9.9 sec (9.3-11.0)
[2022-12-28 17:28] LABS: Source Nasopharynx
[2022-12-28 17:30] LABS: ALT 28 U/L (14-59); AST 12 U/L (15-37); Albumin 4.4 g/dL (3.4-5.0); Alkaline Phosphatase 91 U/L (46-116); Anion Gap 9.2 mmol/L (3-11); BUN 11 mg/dL (7-18); Bilirubin, Total 0.8 mg/dL (0.2-1.0); CO2 26.8 mmol/L (21.0-32.0); CREATININE 0.9 mg/dL (0.55-1.02); Calcium 9.4 mg/dL (8.5-10.1); Chloride 103 mmol/L (98-107); Estimated GFR 90.98 (mL/min/1.73m2); Glucose 93 mg/dL (74-106); Lipase 17 U/L (16-77); Potassium 3.6 mmol/L (3.5-5.1); Sodium 139 mmol/L (136-145); Total Protein 8.4 g/dL (6.4-8.2)
[2022-12-28 17:33] LABS: ETHANOL BLOOD < 3.0 mg/dL (<10)
[2022-12-28] MEDS: ACETAMINOPHEN 1,000 MG/100 ML BTL 400 MG IVPB (17:45)
[2022-12-28] MEDS: Normal Saline 1,000 ML 1000 ML IV (17:46)
--- NOTE | 2022-12-28 17:47 | DI.VRAD_ITS ---
PROCEDURE INFORMATION: Exam: CT Head Without Contrast Exam date and time: 12/28/2022 5:01 PM Age: 27 years old Clinical indication: Injury or trauma; Fall; Blunt trauma (contusions or hematomas); Patient HX: Fell down 13 stairs TECHNIQUE: Imaging protocol: Computed tomography of the head without contrast. COMPARISON: CT HEAD WITHOUT CONTRAST 12/11/2016 4:54 PM FINDINGS: Brain: Normal. No hemorrhage. Unremarkable white matter. No mass effect. Cerebral ventricles: No ventriculomegaly. Paranasal sinuses: There is minimal mucosal thickening in the paranasal sinuses. Mastoid air cells: Visualized mastoid air cells are well aerated. Bones/joints: Unremarkable. No acute fracture. Soft tissues: Unremarkable. IMPRESSION: No acute abnormality. PROCEDURE INFORMATION: Exam: CT Cervical Spine Without Contrast Exam date and time: 12/28/2022 5:01 PM Age: 27 years old Clinical indication: Injury or trauma; Fall; Blunt trauma (contusions or hematomas); Patient HX: Fell down 13 stairs TECHNIQUE: Imaging protocol: Computed tomography of the cervical spine without contrast. COMPARISON: CT CERVICAL SPINE WITHOUT CONTRA 08/06/2016 2:50 PM FINDINGS: Bones/joints: No acute fracture. Normal alignment. No significant disc bulge or herniation. No severe spinal canal stenosis. No significant neural foraminal narrowing. Lungs: Lung apices are normal. Soft tissues: Unremarkable. IMPRESSION: No acute findings. Dictated and Authenticated by: Emely Helton MD. Ordering:ASHIA Akers MD
--- NOTE | 2022-12-28 17:50 | DI.VRAD_ITS ---
PROCEDURE INFORMATION: Exam: CT Chest With Contrast; Diagnostic Exam date and time: 12/28/2022 5:21 PM Age: 27 years old Clinical indication: Injury or trauma; Fall; Blunt trauma (contusions or hematomas); Patient HX: Fell down 13 stairs TECHNIQUE: Imaging protocol: Diagnostic computed tomography of the chest with contrast. COMPARISON: CT CHEST PE ABD PELVIS W 10/05/2022 9:01 PM FINDINGS: Lungs: Unremarkable. No consolidation. No masses. Pleural spaces: No pneumothorax. No pleural effusion. Heart: No cardiomegaly. No pericardial effusion. Lymph nodes: Unremarkable. No enlarged lymph nodes. Vasculature: Unremarkable. No aortic aneurysm. Bones/joints: Degenerative changes. No acute fracture. Soft tissues: Unremarkable. IMPRESSION: No acute/traumatic abnormality in the chest. PROCEDURE INFORMATION: Exam: CT Abdomen And Pelvis With Contrast Exam date and time: 12/28/2022 5:21 PM Age: 27 years old Clinical indication: Injury or trauma; Fall; Blunt trauma (contusions or hematomas); Patient HX: Fell down 13 stairs TECHNIQUE: Imaging protocol: Computed tomography of the abdomen and pelvis with contrast. COMPARISON: CT ABDOMEN PELVIS WO 09/15/2022 8:05 PM FINDINGS: Liver: Normal. No mass. Gallbladder and bile ducts: Normal. No calcified stones. No ductal dilation. Pancreas: Normal. No ductal dilation. Spleen: Normal. No splenomegaly. Adrenal glands: Normal. No mass. Kidneys and ureters: Normal. No hydronephrosis. Stomach and bowel: Unremarkable. No obstruction. No mucosal thickening. Appendix: No evidence of appendicitis. Intraperitoneal space: There is a lashonda small bowel mesentery, nonspecific. No free fluid or free air. Vasculature: No abdominal aortic aneurysm. Lymph nodes: There are multiple enlarged mesenteric lymph nodes, for example a 1.1 cm short axis node in the left upper quadrant on series 7, image 38. Urinary bladder: Unremarkable as visualized. Reproductive: Unremarkable as visualized. Bones/joints: Degenerative changes in the lumbar spine. No acute fracture. Soft tissues: Unremarkable. IMPRESSION: 1. No acute/traumatic abnormality in the abdomen or pelvis. 2. Lashonda mesentery, similar to prior. Differential considerations include mesenteric edema, inflammation and infiltration. 3. Mesenteric adenopathy. Dictated and Authenticated by: Kristie Ferreira MD. Ordering:ASHIA Akers MD
[2022-12-28] MEDS: LORazepam 2 MG/ML VIAL 1 MG IVP (18:00)
[2022-12-28] MEDS: Ketorolac 30 MG/ML VIAL IVP (18:00)
[2022-12-28 18:13] LABS: Bilirubin Negative (Negative); Blood Negative (Negative); Clarity Clear (Clear); Glucose Negative (Negative); Ketones Trace mg/dL (Negative); Leukocyte Esterase Negative (Negative); Nitrite Negative (Negative); Specific Gravity 1.015 (1.005-1.025); Urobilinogen 0.2 mg/dL (Up to 0.2)
--- NOTE | 2022-12-28 18:18 | DI.VRAD_ITS ---
PROCEDURE INFORMATION: Exam: CT Thoracic Spine Without Contrast Exam date and time: 12/28/2022 5:21 PM Age: 27 years old Clinical indication: Injury or trauma; Patient HX: Fall down 13 stairs back pain TECHNIQUE: Imaging protocol: Computed tomography of the thoracic spine without contrast. COMPARISON: CT THORACIC SPINE WO 05/08/2022 10:33 PM FINDINGS: Bones/joints: Alignment is normal. Vertebral body heights are maintained. Intervertebral disc spaces are preserved. No significant spinal canal or neural foraminal stenosis. Soft tissues: Unremarkable. IMPRESSION: No acute fracture. PROCEDURE INFORMATION: Exam: CT Lumbar Spine Without Contrast Exam date and time: 12/28/2022 5:21 PM Age: 27 years old Clinical indication: Injury or trauma; Patient HX: Fall down 13 stairs back pain TECHNIQUE: Imaging protocol: Computed tomography of the lumbar spine without contrast. COMPARISON: CT ABDOMEN PELVIS WO 09/15/2022 8:05 PM FINDINGS: Bones/joints: Normal alignment. Vertebral body heights maintained. Intervertebral disc spaces preserved. No significant spinal canal or neural foraminal stenosis. Soft tissues: Unremarkable. IMPRESSION: No acute fracture. Dictated and Authenticated by: Kristie Ferreira MD. Ordering:ASHIA Akers MD
[2022-12-28 18:34] LABS: *AMPHETAMINES SCREEN URINE Negative (Negative); *BARBITURATES SCREEN URINE Negative (Negative); *BENZODIAZEPINES SCREEN URINE Negative (Negative); Cannabinoids THC Negative (Negative); Cocaine Screen,Urine Negative (Negative); METHADONE URINE SCREEN Negative (Negative); OPIATES URINE SCREEN Negative (Negative); Tricyclic Antidepressants Negative (Negative)
== END 2022-12-28 20:30 | disposition home or self-care (01) ==
PROVIDERS: Emergency Provider Physician Assistant; PCP Family Medicine
DX: G89.11 Acute pain due to trauma (principal); M54.50 Low back pain, unspecified; F90.9 Attention-deficit hyperactivity disorder, unspecified type; F31.9 Bipolar disorder, unspecified; I12.9 Hypertensive chronic kidney disease with stage 1 through stage 4 chronic kidney disease, or unspecified chronic kidney disease; N18.1 Chronic kidney disease, stage 1; R00.0 Tachycardia, unspecified; Z86.16 Personal history of COVID-19; W18.2XXA Fall in (into) shower or empty bathtub, initial encounter; W10.9XXA Fall (on) (from) unspecified stairs and steps, initial encounter; Z20.822 Contact with and (suspected) exposure to COVID-19
CPT/HCPCS: 74177; 80053; 80307; 83690; 87637; 96361; 96374; 96375; 99285; 70450; 71260; 72125; 72128; 72131; 80320; 81003; 83735; 85025; 85610; 85730; 99284; J0131; J1885; J2060; J3490

== ENCOUNTER 2022-12-30 15:54 | Emergency (ER) | payer MEDICAID, SELFPAY ==
[2022-12-30 16:00] VITALS: BP 139/90; PULSE 116; RESP 18; TEMP 36.9; O2SAT 94
[2022-12-30 16:40] LABS: Abs Immature Grans 0.02 10^3/uL (0.0-0.06); Absolute Basophil Count 0.03 10^3/uL (0.0-0.2); Absolute Eosinophil Count 0.32 10^3/uL (0.0-0.7); Absolute Lymphocyte Count 1.55 10^3/uL (1.2-3.4); Absolute Monocyte Count 0.82 10^3/uL (0.1-0.8); Absolute Neutrophil Count 5.08 10^3/uL (1.2-6.7); Basophils % 0.4; Eosinophils % 4.1; HCT 40.7 % (36.0-46.0); HGB 12.8 g/dL (11.2-15.7); Immature Grans % 0.3; Lymphocytes % 19.8; MCH 23.4 pg (27.0-33.0); MCHC 31.4 % (32.0-36.0); MCV 74 fL (80-95); MPV 12.2 fL (8.0-11.0); Monocytes % 10.5; Neutrophils % 64.9; Platelet Count 247 10^3/uL (130-400); RBC 5.48 10^6/uL (3.93-5.22); RDW 15.1 % (11.7-14.6); RDW-SD 40.2 fL; WBC 7.82 10^3/uL (4.4-10.8)
[2022-12-30] MEDS: Lactated Ringers 1,000 ML 1000 ML IV (16:50)
[2022-12-30 16:52] VITALS: O2SAT 99
[2022-12-30 16:53] VITALS: BP 148/95; PULSE 103; O2SAT 98
[2022-12-30 16:55] LABS: Anion Gap 9.5 mmol/L (3-11); BUN 9 mg/dL (7-18); CO2 23.5 mmol/L (21.0-32.0); CREATININE 0.7 mg/dL (0.55-1.02); Calcium 9.2 mg/dL (8.5-10.1); Chloride 102 mmol/L (98-107); Estimated GFR 123.01 (mL/min/1.73m2); Glucose 94 mg/dL (74-106); Potassium 3.1 mmol/L (3.5-5.1); Sodium 135 mmol/L (136-145)
[2022-12-30 16:56] LABS: Diff Comment RBC Morph Reviewed; Microcytosis 1+; Ovalocytes 2+
[2022-12-30 17:02] LABS: Magnesium 1.9 mg/dL (1.8-2.4)
[2022-12-30 17:17] LABS: C Diff PCR Negative (Negative)
[2022-12-30 17:30] VITALS: O2SAT 97
[2022-12-30 17:32] VITALS: BP 137/82; PULSE 101; O2SAT 98
[2022-12-30 17:40] VITALS: O2SAT 100
--- NOTE | 2022-12-30 22:42 | ED.GENADUL_ITS ---
Discharge Plan Disposition Patient Disposition: Home Discharge Details Clinical Impression: Diarrhea Primary Care Provider: Estephanie Burdick ED Provider: Leonor Simons Home Meds and New Rx's Prescriptions: New potassium chloride 20 mEq tablet extended release 20 meq PO DAILY Qty: 7 0RF Continued melatonin 3 mg tablet 5 mg PO HS Rx Instructions: 1-2 tabs (3-6 mg) po at hs albuterol sulfate [Ventolin HFA] 90 mcg/actuation HFA aerosol inhaler 2 inh IH Q4H PRN labetalol 100 mg tablet 50 mg PO QAM Digestive Advantage Prob Gummy 250 million cell tablet,chewable 250 cell PO QAM lidocaine 3.5 % adhesive patch,medicated 1 patch topical DIRECTED Patient Comments: not on pt list medroxyprogesterone [Depo-Provera] 150 mg/mL syringe 150 mg IM every 3 months Qty: 1 5RF Rx Instructions: [facility]. epinephrine 0.3 mg/0.3 mL auto-injector 0.3 ml SC ONCE PRN (Reason: anaphylaxis) Qty: 2 0RF Rx Instructions: as a single dose; may repeat once sertraline 25 mg tablet 50 mg PO HS Patient Comments: not on pt list Lactobacillus acidophilus Tablet 1 tab PO DAILY Patient Comments: not on pt list pantoprazole 40 mg Tablet,Delayed Release (Dr/Ec) 40 mg PO QAM quetiapine 25 mg Tablet 25 mg PO BID buspirone 5 mg tablet 5 mg PO BID ferrous sulfate 325 mg (65 mg iron) tablet 65 mg PO Q OTHER DAY nicotine (polacrilex) 2 mg gum 2 mg PO Q4H PRN nicotine 7 mg/24 hr patch 24 hour 1 patch transdermal Q24H ergocalciferol (vitamin D2) [Vitamin D2] 1,250 mcg (50,000 unit) Capsule 50,000 unit PO .WEEKLY acetaminophen 500 mg Tablet 1,000 mg PO PRN PRN clonidine HCl 0.2 mg tablet 0.2 mg PO HS Patient Comments: TAKE ONE TABLET BY MOUTH AT BEDTIME naproxen sodium 220 mg Tablet 220 mg PO PRN PRN ondansetron 4 mg tablet,disintegrating 4 mg PO Q8H PRNQty: 14 0RF Discharge Instructions Instructions: Acute Diarrhea (ED) Additional Instructions: You may try taking [id number] Imodium Increase fluid hydration Gatorade Take your potassium supplement tomorrow Follow-up with your primary care physician Return earlier should you have new or worsening complaints Discharge Data Discharge Date/Time-TO BE ENTERED AT DEPARTURE: 12/30/22 18:15 Medical Decision Making This 27-year-old female known to this facility presents with diarrhea after taking a suppository Labs are reassuring Vitals are improved, initially quite tachycardic which does not appear to be grossly changed from her prior evaluations Hypokalemic at 3.1, given potassium for home C. difficile negative Stool culture pending Return precautions reviewed and patient expressed understanding Medical Records Medical records reviewed: Yes I reviewed the patient's medical records. Lab Data Lab results reviewed: Yes I reviewed the patient's lab results. HPI General Date/Time Provider Initiated Documentation: 12/30/22 16:06 . HPI Narrative: This 27-year-old female history of ADHD, chronic abdominal pain presents with reports of diarrhea since 2 AM. She states that she was told to take a Dulcolax this does not worsen her symptoms. When asked who told her to take Dulcolax for her diarrhea, she states that it was a friend. She denies any abdominal pain. She denies any vomiting. She denies any chance of . Denies any chest pain or shortness of breath. Related Data Home Medications Medication Instructions Recorded Confirmed acetaminophen 500 mg tablet 1,000 mg PO PRN PRN 10/30/19 12/28/22 albuterol sulfate 90 mcg/actuation 2 inh inhalation Q4H PRN 05/13/20 12/28/22 aerosol inhaler (Ventolin HFA) Bacillus coagulans 250 million 250 cell PO QAM 09/25/21 12/28/22 cell chewable tablet (Digestive Advantage Probiotic Gummy) labetalol 100 mg tablet 50 mg PO QAM 09/25/21 12/28/22 melatonin 3 mg tablet 5 mg PO HS 09/25/21 12/28/22 lidocaine 3.5 % topical patch 1 patch topical DIRECTED 05/17/22 12/28/22 epinephrine 0.3 mg/0.3 mL 0.3 ml subcut ONCE PRN anaphylaxis 08/14/22 12/28/22 injection, auto-injector #2 ea clonidine HCl 0.2 mg tablet 0.2 mg PO HS 10/03/22 12/28/22 naproxen sodium 220 mg tablet 220 mg PO PRN PRN 10/03/22 12/28/22 ondansetron 4 mg disintegrating 4 mg PO Q8H PRN #14 tabs 10/28/22 12/28/22 tablet medroxyprogesterone 150 mg/mL 150 mg IM every 3 months #1 SYRG 11/12/22 12/28/22 intramuscular syringe (Depo-Provera) sertraline 25 mg tablet 50 mg PO HS 11/20/22 12/28/22 Lactobacillus acidophilus 1 tab PO DAILY 11/22/22 12/28/22 pantoprazole 40 mg tablet,delayed 40 mg PO QAM 11/22/22 12/28/22 release quetiapine 25 mg tablet 25 mg PO BID 11/22/22 12/28/22 buspirone 5 mg tablet 5 mg PO BID 12/25/22 12/28/22 ergocalciferol (vitamin D2) 1,250 50,000 unit PO .WEEKLY 12/25/22 12/28/22 mcg (50,000 unit) capsule (Vitamin D2) ferrous sulfate 325 mg (65 mg 65 mg PO Q OTHER DAY 12/25/22 12/28/22 iron) tablet nicotine (polacrilex) 2 mg gum 2 mg PO Q4H PRN 12/25/22 12/28/22 nicotine 7 mg/24 hr daily 1 patch transdermal Q24H 12/25/22 12/28/22 transdermal patch potassium chloride 20 mEq 20 meq PO DAILY #7 tabs 12/30/22 tablet,extended release Previous Rx's Medication Instructions Recorded epinephrine 0.3 mg/0.3 mL 0.3 ml subcut ONCE PRN anaphylaxis 08/14/22 injection, auto-injector #2 ea ondansetron 4 mg disintegrating 4 mg PO Q8H PRN #14 tabs 10/28/22 tablet medroxyprogesterone 150 mg/mL 150 mg IM every 3 months #1 SYRG 11/12/22 intramuscular syringe (Depo-Provera) potassium chloride 20 mEq 20 meq PO DAILY #7 tabs 12/30/22 tablet,extended release Allergies Allergy/AdvReac Type Severity Reaction Status Date / Time fluticasone Allergy Severe unknown Verified 12/28/22 15:57 [From Flovent HFA] lisinopril Allergy Intermediate unknown Verified 12/28/22 15:57 paroxetine HCl [From Paxil] Allergy Intermediate Hives Verified 12/28/22 15:57 polyethylene glycol 3350 Allergy Intermediate unknown Verified 12/28/22 15:57 [From Miralax] risperidone [From Risperdal] Allergy Intermediate Hives Verified 12/28/22 15:57 NSAIDS (Non-Steroidal Allergy Due to Verified 12/28/22 15:57 Anti-Inflamma prior kidney damage acetaminophen AdvReac Nausea Unverified 12/28/22 15:57 amoxicillin AdvReac Nausea Verified 12/28/22 15:57 seafood Allergy Intermediate unknown Uncoded 12/28/22 15:57 enviornmental Allergy Mild sneezing Uncoded 12/28/22 15:57 General Stated Complaint: Nausea/Vomit/Diar MARY KAY: 4 PFSH All Active Problems (Updated 12/30/22 @ 17:56 by HARRISON Nava) Suicidal ideation (Acute) Vomiting (Acute) Fall (Acute) Back pain (Acute) Diarrhea (Acute) COVID (Acute) COVID (Acute) Hyperplastic colon polyp (Acute) Rectal polyp (Acute) Chronic kidney disease, stage 1 (Chronic 12/31/16) from renal infection as a child elevated BP resulting 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 Patient is using the Depo- Provera for menstrual cycle control. Depression (12/31/16) Drug abuse, episodic use Dysuria Family history of colon cancer Fatigue Generalized headaches (12/31/16) Hemolytic uremic syndrome History of allergic reaction History of mastoiditis Hypertrophy of tonsils and adenoids Illiteracy Per caregiver she is able to read and write, she needs assitance with comprehension of more complex words. Jaw pain Mesenteric lymphadenitis Otalgia, right ear Overactive bladder (02/09/18) Pain, dental PTSD (post-traumatic stress disorder) RBC microcytosis Steatosis of liver SASHA (stress urinary incontinence, female) Suicidal ideation TMJ tenderness, left Vitamin D deficiency Surgical History History of colonoscopy (~06/2022) History of kidney surgery Hx of tooth extraction Social History Smoking/Tobacco Use Status: Former Tobacco Use Quit Date: 11/27/22 Smoking risk assessment performed?: Yes Alcohol Intake: former Drug use: Current Sobriety Substance use type: marijuana Sexually active: Yes (female partner only now(May 2022). Has never had intercourse) Do you think of yourself as: lesbian/cash/homosexual What is your relationship status?: never Panel score (0-1 are the most socially isolated patients): 0 Do you feel safe at home: Yes Do you feel safe in your relationship?: Yes Additional Social history: lives alone - states she feels sad when she is alone Female Reproductive History Menstrual control method: progesterone injection History History 0 Para Hx # Term Pregnancies Multiple births Hx # Pregnancies Ectopic pregnancies AB induced Hx Number of Living Children AB spontaneous Exam Const General: cooperative, comfortable and no acute distress Resp Effort & Inspection: normal respiratory effort Auscultation: clear to auscultation bilaterally Cardio Rate: regular rate Rhythm: regular rhythm GI Inspection: normal to inspection Auscultation: normal bowel sounds Skin General skin exam: no rashes or lesions noted Neuro General: patient alert and patient oriented x3 Course Vital Signs Vital signs: Vital Signs Temperature 36.9 C 12/30/22 16:00 Pulse 116 H 12/30/22 16:00 Respiratory Rate 18 12/30/22 16:00 Blood Pressure 139/90 12/30/22 16:00 Pulse Oximetry 94 12/30/22 16:00 Temperature 36.9 C 12/30/22 16:00 Temperature Source Oral 12/30/22 16:00 Pulse 101 H 12/30/22 17:32 Respiratory Rate 18 12/30/22 16:00 Respiratory Effort Normal, Non-Labored 12/30/22 16:03 Blood Pressure 137/82 12/30/22 17:32 Blood Pressure Mean 94 12/30/22 17:32 Pulse Oximetry 100 12/30/22 17:40 Oxygen Delivery Method Room Air 12/30/22 16:00 Oxygen Flow Rate 0 12/30/22 16:00 Pain Level 0 12/30/22 18:06 Lab/Test Results Lab/Test Results: Laboratory Tests Range/Units 12/30/22 12/30/22 12/30/22 16:21 16:26 16:32 WBC (4.4-10.8) 10^3/uL RBC (3.93-5.22) 10^6/uL Hgb (11.2-15.7) g/dL Hct (36.0-46.0) % MCV (80-95) fL MCH (27.0-33.0) pg MCHC (32.0-36.0) % RDW (11.7-14.6) % Plt Count (130-400) 10^3/uL MPV (8.0-11.0) fL Immature Gran % Neutrophils % Lymphocytes % Monocytes % Eosinophils % Basophils % Nucleated RBC % (0.0-0.3) % Absolute Neutrophils (1.2-6.7) 10^3/uL Absolute Lymphocytes (1.2-3.4) 10^3/uL Absolute Monocytes (0.1-0.8) 10^3/uL Absolute Eosinophils (0.0-0.7) 10^3/uL Absolute Basophils (0.0-0.2) 10^3/uL RBC Morphology Microcytosis Ovalocytes Sodium (136-145) mmol/L 135 L Potassium (3.5-5.1) mmol/L 3.1 L Chloride (98-107) mmol/L 102 Carbon Dioxide (21.0-32.0) mmol/L 23.5 Anion Gap (3-11) mmol/L 9.5 BUN (7-18) mg/dL 9 Creatinine (0.55-1.02) mg/dL 0.7 Est GFR (CKD-EPI 2020) (mL/min/1.73m2) 123.01 Glucose (74-106) mg/dL 94 Calcium (8.5-10.1) mg/dL 9.2 Magnesium (1.8-2.4) mg/dL Urine Color Cancelled Urine Clarity Cancelled Urine pH Cancelled Ur Specific Bryson Cancelled Urine Protein Cancelled Urine Ketones Cancelled Urine Blood Cancelled Urine Nitrite Cancelled Urine Bilirubin Cancelled Urine Urobilinogen Cancelled Ur Leukocyte Esterase Cancelled Urine Glucose Cancelled Stl C.difficile Tox PCR (Negative) Negative Range/Units 12/30/22 12/30/22 16:32 16:32 WBC (4.4-10.8) 10^3/uL 7.82 RBC (3.93-5.22) 10^6/uL 5.48 H Hgb (11.2-15.7) g/dL 12.8 Hct (36.0-46.0) % 40.7 MCV (80-95) fL 74 L MCH (27.0-33.0) pg 23.4 L MCHC (32.0-36.0) % 31.4 L RDW (11.7-14.6) % 15.1 H Plt Count (130-400) 10^3/uL 247 MPV (8.0-11.0) fL 12.2 H Immature Gran % 0.3 Neutrophils % 64.9 Lymphocytes % 19.8 Monocytes % 10.5 Eosinophils % 4.1 Basophils % 0.4 Nucleated RBC % (0.0-0.3) % 0.0 Absolute Neutrophils (1.2-6.7) 10^3/uL 5.08 Absolute Lymphocytes (1.2-3.4) 10^3/uL 1.55 Absolute Monocytes (0.1-0.8) 10^3/uL 0.82 H Absolute Eosinophils (0.0-0.7) 10^3/uL 0.32 Absolute Basophils (0.0-0.2) 10^3/uL 0.03 RBC Morphology See Below Microcytosis 1+ Ovalocytes 2+ Sodium (136-145) mmol/L Potassium (3.5-5.1) mmol/L Chloride (98-107) mmol/L Carbon Dioxide (21.0-32.0) mmol/L Anion Gap (3-11) mmol/L BUN (7-18) mg/dL Creatinine (0.55-1.02) mg/dL Est GFR (CKD-EPI 2020) (mL/min/1.73m2) Glucose (74-106) mg/dL Calcium (8.5-10.1) mg/dL Magnesium (1.8-2.4) mg/dL 1.9 Urine Color Urine Clarity Urine pH Ur Specific Bryson Urine Protein Urine Ketones Urine Blood Urine Nitrite Urine Bilirubin Urine Urobilinogen Ur Leukocyte Esterase Urine Glucose Stl C.difficile Tox PCR (Negative)
[2022-12-31 22:14] LABS: Campylobacter PCR Negative (Negative); Salmonella PCR Negative (Negative); Shiga Toxin PCR Negative (Negative); Shigella/Enteroinvasive Ecoli Negative (Negative)
== END 2022-12-30 18:15 | disposition home or self-care (01) ==
PROVIDERS: Emergency Provider Physician Assistant; PCP Family Medicine
DX: R19.7 Diarrhea, unspecified (principal); E87.6 Hypokalemia
CPT/HCPCS: 80048; 87493; 87505; 96360; 99284; 81003; 83735; 85025

== ENCOUNTER 2023-01-03 13:34 | Outpatient (REF) | payer MEDICAID, SELFPAY ==
[2023-01-03 16:09] LABS: ESR 24 mm/hr (0-20)
[2023-01-03 16:31] LABS: C-Reactive Protein 0.73 mg/dL (0.0-0.3)
[2023-01-03 16:53] LABS: Bacteria Few HPF (Negative); C & S Indicated? C&S Done As Ordered; Casts Negative LPF (Negative); Crystals Few Calcium Oxalate HPF (Negative); Epithelial Cells Few HPF (Negative); Mucus Trace (Negative); RBC 0-2 HPF (0-2)
[2023-01-05 09:52] LABS: HIV-1/2 Ag & Ab Screen Negative (Negative)
[2023-01-05 10:33] LABS: Hepatitis C Ab w Rflx HCV PCR Negative (Negative)
== END 2023-01-03 13:35 | disposition home or self-care (01) ==
LOC: NCHCN 13:34
PROVIDERS: PCP Family Medicine; Visit Provider Nurse Practitioner Family
DX: R53.83 Other fatigue (principal); R11.0 Nausea; Z11.4 Encounter for screening for human immunodeficiency virus [HIV]; Z11.59 Encounter for screening for other viral diseases; R70.0 Elevated erythrocyte sedimentation rate; R79.82 Elevated C-reactive protein (CRP); R82.998 Other abnormal findings in urine
CPT/HCPCS: 85652; 86803; 87389; 81015; 86140; 87086

== ENCOUNTER 2023-02-04 22:00 | Emergency (ER) | payer MEDICAID, SELFPAY ==
[2023-02-04 21:57] VITALS: BP 127/96; PULSE 119; RESP 20; TEMP 36.4; O2SAT 98
--- NOTE | 2023-02-04 22:06 | ED.GENADUL_ITS ---
Discharge Plan Disposition Patient Disposition: Home Condition: Good Discharge Details Clinical Impression: Contact dermatitis Primary Care Provider: Estephanie Burdick ED Provider: Anita Kamara Home Meds and New Rx's Prescriptions: Continued melatonin 3 mg tablet 5 mg PO HS Rx Instructions: 1-2 tabs (3-6 mg) po at hs albuterol sulfate [Ventolin HFA] 90 mcg/actuation HFA aerosol inhaler 2 inh IH Q4H PRN labetalol 100 mg tablet 50 mg PO QAM Digestive Advantage Prob Gummy 250 million cell tablet,chewable 250 cell PO QAM lidocaine 3.5 % adhesive patch,medicated 1 patch topical DIRECTED Patient Comments: not on pt list norethindrone (contraceptive) [Carla] 0.35 mg tablet 0.35 mg PO DAILY Qty: 84 3RF sertraline 25 mg tablet 50 mg PO HS Patient Comments: not on pt list Lactobacillus acidophilus Tablet 1 tab PO DAILY Patient Comments: not on pt list pantoprazole 40 mg Tablet,Delayed Release (Dr/Ec) 40 mg PO QAM quetiapine 25 mg Tablet 25 mg PO BID ergocalciferol (vitamin D2) [Vitamin D2] 1,250 mcg (50,000 unit) Capsule 50,000 unit PO .WEEKLY acetaminophen 500 mg Tablet 1,000 mg PO PRN PRN ondansetron 4 mg tablet,disintegrating 4 mg PO Q8H PRNQty: 14 0RF Discharge Instructions Instructions: Dermatitis (ED) Additional Instructions: Your exam is reassuring here today. No evidence of significant hollis. You probably have some irritation associated with exposure to chemical. Please wear gloves in the future. You may use Tylenol to help with discomfort. Keep your hands clean. You may also try some lotion or ointment to help soothe your hands. Please follow-up with primary care for reevaluation in 2 weeks. If you develop any new or worsening symptoms please seek care urgently once again. Referrals: Estephanie Burdick [Primary Care Provider] - Medical Decision Making Patient is a pleasant 27-year-old female presenting today with chief complaint of bilateral hand pain. 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 States that she was not aware she was supposed to wear gloves and suffered hollis to her hands. Since then she has been having some discomfort. Has not tried any analgesics. Denies other injury the time of the incident. She denies any shortness of breath. Has been feeling profoundly anxious about these symptoms. Brought in via EMS. On exam, patient appears nontoxic. Lungs are clear, no recent wheezing or stridor. No intraoral lesions to suggest more systemic reaction. Exam of her bilateral hands do not show any objective evidence of skin breakdown, lesions or rashes. Likely a superficial contact dermatitis. She did already wash the area and take a shower. Do not feel that further intervention is warranted right now aside from treating her discomfort. We will give her acetaminophen. Return precautions were discussed and we discussed continued care. Patient did request a COVID test but not because she is symptomatic, because someone she knows had COVID a week ago. I advised that she could take some home testing and that emergent testing is not warranted at this time as she is currently asymptomatic. Encourage close follow-up with primary care. All of her questions and concerns were addressed and she is agreement this plan. HPI General Date/Time Provider Initiated Documentation: 02/04/23 22:06 . Limitations to Documentation: no limitations . Information obtained by: patient, EMS, RN notes reviewed and old records reviewed . History of Present Illness 27 year old F presents to the emergency department with the chief complaint of bilateral hand pain, described as severe, with intensity rated at 10. Quality is described as burning, and is localized to the left, right and upper extremity. Patient reports no radiation. Patient started experiencing this hour(s) and it has been constant. No relieving factors improve symptom(s), No exacerbating factors reported . Patient notes no other symptoms.. Patient did receive the following treatments prior to arrival, other (took a shower after exposure) Related Data Home Medications Medication Instructions Recorded Confirmed acetaminophen 500 mg tablet 1,000 mg PO PRN PRN 10/30/19 02/02/23 albuterol sulfate 90 mcg/actuation 2 inh inhalation Q4H PRN 05/13/20 02/02/23 aerosol inhaler (Ventolin HFA) Bacillus coagulans 250 million 250 cell PO QAM 09/25/21 02/02/23 cell chewable tablet (Digestive Advantage Probiotic Gummy) labetalol 100 mg tablet 50 mg PO QAM 09/25/21 02/02/23 melatonin 3 mg tablet 5 mg PO HS 09/25/21 02/02/23 lidocaine 3.5 % topical patch 1 patch topical DIRECTED 05/17/22 02/02/23 ondansetron 4 mg disintegrating 4 mg PO Q8H PRN #14 tabs 10/28/22 02/02/23 tablet sertraline 25 mg tablet 50 mg PO HS 11/20/22 02/02/23 Lactobacillus acidophilus 1 tab PO DAILY 11/22/22 02/02/23 pantoprazole 40 mg tablet,delayed 40 mg PO QAM 11/22/22 02/02/23 release quetiapine 25 mg tablet 25 mg PO BID 11/22/22 02/02/23 ergocalciferol (vitamin D2) 1,250 50,000 unit PO .WEEKLY 12/25/22 02/02/23 mcg (50,000 unit) capsule (Vitamin D2) norethindrone (contraceptive) 0.35 0.35 mg PO DAILY #84 tabs 02/02/23 02/02/23 mg tablet (Carla) Previous Rx's Medication Instructions Recorded ondansetron 4 mg disintegrating 4 mg PO Q8H PRN #14 tabs 10/28/22 tablet norethindrone (contraceptive) 0.35 0.35 mg PO DAILY #84 tabs 02/02/23 mg tablet (Carla) Allergies Allergy/AdvReac Type Severity Reaction Status Date / Time fluticasone Allergy Severe unknown Verified 02/02/23 09:39 [From Flovent HFA] lisinopril Allergy Intermediate unknown Verified 02/02/23 09:39 paroxetine HCl [From Paxil] Allergy Intermediate Hives Verified 02/02/23 09:39 polyethylene glycol 3350 Allergy Intermediate unknown Verified 02/02/23 09:39 [From Miralax] risperidone [From Risperdal] Allergy Intermediate Hives Verified 02/02/23 09:39 NSAIDS (Non-Steroidal Allergy Due to Verified 02/02/23 09:39 Anti-Inflamma prior kidney damage acetaminophen AdvReac Nausea Unverified 02/02/23 09:39 amoxicillin AdvReac Nausea Verified 02/02/23 09:39 seafood Allergy Intermediate unknown Uncoded 02/02/23 09:39 enviornmental Allergy Mild sneezing Uncoded 02/02/23 09:39 General Stated Complaint: GenMedical MARY KAY: 4 Review of Systems Constitutional Constitutional: Reports as per HPI Cardiovascular Cardiovascular: Denies dyspnea Respiratory Respiratory: Reports as per HPI, Denies dyspnea and Denies wheezing Musculoskeletal Musculoskeletal: Reports as per HPI Integumentary/Breasts Skin/Breast: Reports as per HPI Neurologic Neurologic: Reports as per HPI, Denies sensory deficit and Denies paresthesias Allergic/Immunologic Allergic/Immunologic: Denies wheezing PFSH All Active Problems (Updated 02/04/23 @ 22:11 by HARRISON Johnson) Contact dermatitis (Acute) COVID (Acute) COVID (Acute) Hyperplastic colon polyp (Acute) Rectal polyp (Acute) Chronic kidney disease, stage 1 (Chronic 12/31/16) from renal infection as a child elevated BP resulting 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 Patient is using the Depo- Provera for menstrual cycle control. Depression (12/31/16) Drug abuse, episodic use Dysuria Family history of colon cancer Fatigue Generalized headaches (12/31/16) Hemolytic uremic syndrome History of allergic reaction History of mastoiditis Hypertrophy of tonsils and adenoids Illiteracy Per caregiver she is able to read and write, she needs assitance with comprehension of more complex words. Jaw pain Mesenteric lymphadenitis Otalgia, right ear Overactive bladder (02/09/18) Pain, dental PTSD (post-traumatic stress disorder) RBC microcytosis Steatosis of liver SASHA (stress urinary incontinence, female) Suicidal ideation TMJ tenderness, left Vitamin D deficiency Surgical History History of colonoscopy (~06/2022) History of kidney surgery Hx of tooth extraction Social History Smoking/Tobacco Use Status: Former Tobacco Use Quit Date: 11/27/22 Smoking risk assessment performed?: Yes Alcohol Intake: former Drug use: Current Sobriety Substance use type: marijuana Sexually active: Yes (female partner only now(May 2022). Has never had intercourse) Do you think of yourself as: lesbian/cash/homosexual What is your relationship status?: never Panel score (0-1 are the most socially isolated patients): 0 Do you feel safe at home: Yes Do you feel safe in your relationship?: Yes Additional Social history: lives alone - states she feels sad when she is alone Female Reproductive History Menstrual control method: progesterone injection History History 0 Para Hx # Term Pregnancies Multiple births Hx # Pregnancies Ectopic pregnancies AB induced Hx Number of Living Children AB spontaneous Exam Const General: cooperative, healthy appearing, comfortable, no acute distress, well developed and anxious Nutritional Appearance: well nourished and overweight Orientation: alert and awake HENMT Mouth: oral mucosae normal, lip normal and tongue normal Resp Effort & Inspection: normal respiratory effort, able to speak in complete sentences and no respiratory distress Auscultation: clear to auscultation bilaterally Cardio Rate: regular rate Rhythm: regular rhythm Heart Sounds: S1 normal and S2 normal Neuro General: patient alert and patient awake Cognition: normal cognition Speech: speech normal Gait: normal gait Sensory Exam: no sensory deficits noted Extrem General: normal to inspection (no rash appreciated) Psych Appearance: grossly normal and well kempt Mental Status: mental status grossly normal Speech and Movement: speech and movement normal Course Vital Signs Vital signs: Vital Signs Temperature 36.4 C 02/04/23 21:57 Pulse 119 H 02/04/23 21:57 Respiratory Rate 20 02/04/23 21:57 Blood Pressure 127/96 H 02/04/23 21:57 Pulse Oximetry 98 02/04/23 21:57 Temperature 36.4 C 02/04/23 21:57 Pulse 119 H 02/04/23 21:57 Respiratory Rate 20 02/04/23 21:57 Respiratory Effort Normal, Non-Labored 02/04/23 22:02 Blood Pressure 127/96 H 02/04/23 21:57 Blood Pressure Position Sitting 02/04/23 21:57 Pulse Oximetry 98 02/04/23 21:57 Oxygen Delivery Method Room Air 02/04/23 21:57 Oxygen Flow Rate 0 02/04/23 21:57 Pain Level 10 02/04/23 21:57
[2023-02-04] MEDS: Acetaminophen 325 MG TAB 650 MG PO (22:23)
== END 2023-02-04 22:26 | disposition home or self-care (01) ==
PROVIDERS: Emergency Provider Physician Assistant; PCP Family Medicine
DX: T54.91XA Toxic effect of unspecified corrosive substance, accidental (unintentional), initial encounter (principal); L24.5 Irritant contact dermatitis due to other chemical products
CPT/HCPCS: 99283

== ENCOUNTER 2023-02-15 18:16 | Emergency (ER) | payer MEDICAID, SELFPAY ==
[2023-02-15 18:20] VITALS: BP 160/113; PULSE 108; RESP 18; TEMP 37.3; O2SAT 98
--- NOTE | 2023-02-15 18:43 | W.ED.GENAD ---
Discharge Plan Disposition Patient Disposition: Home Discharge Details Clinical Impression: Health maintenance examination Primary Care Provider: Estephanie Burdick ED Provider: Kenton Irene Home Meds and New Rx's Prescriptions: Continued melatonin 3 mg tablet 5 mg PO HS Rx Instructions: 1-2 tabs (3-6 mg) po at hs albuterol sulfate [Ventolin HFA] 90 mcg/actuation HFA aerosol inhaler 2 inh IH Q4H PRN labetalol 100 mg tablet 50 mg PO QAM Digestive Advantage Prob Gummy 250 million cell tablet,chewable 250 cell PO QAM norethindrone (contraceptive) [Carla] 0.35 mg tablet 0.35 mg PO DAILY Qty: 84 3RF pantoprazole 40 mg Tablet,Delayed Release (Dr/Ec) 40 mg PO QAM quetiapine 25 mg Tablet 25 mg PO BID ergocalciferol (vitamin D2) [Vitamin D2] 1,250 mcg (50,000 unit) Capsule 50,000 unit PO .WEEKLY clonidine HCl 0.2 mg tablet 0.2 mg PO QHS Patient Comments: TAKE ONE TABLET BY MOUTH AT BEDTIME acetaminophen 500 mg Tablet 1,000 mg PO PRN PRN ondansetron 4 mg tablet,disintegrating 4 mg PO Q8H PRNQty: 14 0RF Discontinued lidocaine 3.5 % adhesive patch,medicated 1 patch topical DIRECTED Patient Comments: not on pt list sertraline 25 mg tablet 50 mg PO HS Patient Comments: not on pt list Lactobacillus acidophilus Tablet 1 tab PO DAILY Patient Comments: not on pt list Discharge Instructions Additional Instructions: At this time we are unsure where this phone call came from direct you to the emergency department. Given that you have no new or changes in your chronic symptoms please follow-up with your primary care provider for further reassessment. Referrals: [facility] [Provider Group] - 02/16/23 Medical Decision Making Patient presenting to the emergency department for chief complaint of abnormal labs. Patient states that she was contacted by somebody at [facility] stating that she needed to present immediately to the emergency department for emergent assessment and lab draw. Patient states that she thinks she has an infection. What they told her but she says she is somewhat confused about the conversation she had. Patient does have history of mild cognitive delay, ADHD, chronic pain, PTSD, multiple emergency department visits. Patient denies any new or changes in symptoms based upon her chronic ongoing multiple medical complaints. Patient denies fever chills, chest pain, shortness of breath, urinary or skin complaints. Patient also did state that primary care provider also sent her here. Did speak with Dr. Phu West whom stated no conversation with the patient was had and she is unaware of any abnormal labs from what has been done at the office. I did also contact [facility] and the transfer center and they also pulled open patient's file and patient has not had labs performed in over a year at their facility and no notes were noted in the system of them contacting patient for referral to the emergency department. Given that both patient's primary care office along with tertiary care center have no recollection or documentation of abnormal labs and patient also has no new medical complaints we will discharge patient to follow-up with primary care office which she states she has an appointment tomorrow morning. After discussion of diagnosis and plan of care patient has no further needs, questions, or concerns and states clear understanding to return to the emergency department for any worsening symptoms. It was noted that patient did have some hypertension and elevated pulse on her vital signs. Patient was encouraged to take her normally prescribed medications and has history of hypertension. This documentation was generated using [employer] dictation system, please disregard any oddities of phrase or misspellings. HPI General Mode of arrival: ambulatory. Date/Time Provider Initiated Documentation: 02/15/23 18:20. Limitations to Documentation: no limitations. Information obtained by: patient, RN/MD, RN notes reviewed and old records reviewed. History of Present Illness 27 year old F presents to the emergency department with the chief complaint of Abnormal labs, Patient notes no other symptoms.. Related Data Home Medications Medication Instructions Recorded Confirmed acetaminophen 500 mg tablet 1,000 mg PO PRN PRN 10/30/19 02/15/23 albuterol sulfate 90 mcg/actuation 2 inh inhalation Q4H PRN 05/13/20 02/15/23 aerosol inhaler (Ventolin HFA) Bacillus coagulans 250 million 250 cell PO QAM 09/25/21 02/15/23 cell chewable tablet (Digestive Advantage Probiotic Gummy) labetalol 100 mg tablet 50 mg PO QAM 09/25/21 02/15/23 melatonin 3 mg tablet 5 mg PO HS 09/25/21 02/15/23 ondansetron 4 mg disintegrating 4 mg PO Q8H PRN #14 tabs 10/28/22 02/15/23 tablet pantoprazole 40 mg tablet,delayed 40 mg PO QAM 11/22/22 02/15/23 release quetiapine 25 mg tablet 25 mg PO BID 11/22/22 02/15/23 ergocalciferol (vitamin D2) 1,250 50,000 unit PO .WEEKLY 12/25/22 02/15/23 mcg (50,000 unit) capsule (Vitamin D2) norethindrone (contraceptive) 0.35 0.35 mg PO DAILY #84 tabs 02/02/23 02/15/23 mg tablet (Carla) clonidine HCl 0.2 mg tablet 0.2 mg PO QHS 02/15/23 02/15/23 Previous Rx's Medication Instructions Recorded ondansetron 4 mg disintegrating 4 mg PO Q8H PRN #14 tabs 10/28/22 tablet norethindrone (contraceptive) 0.35 0.35 mg PO DAILY #84 tabs 02/02/23 mg tablet (Carla) Allergies Allergy/AdvReac Type Severity Reaction Status Date / Time fluticasone Allergy Severe unknown Verified 02/15/23 18:22 [From Flovent HFA] lisinopril Allergy Intermediate unknown Verified 02/15/23 18:22 paroxetine HCl [From Paxil] Allergy Intermediate Hives Verified 02/15/23 18:22 polyethylene glycol 3350 Allergy Intermediate unknown Verified 02/15/23 18:22 [From Miralax] risperidone [From Risperdal] Allergy Intermediate Hives Verified 02/15/23 18:22 NSAIDS (Non-Steroidal Allergy Due to Verified 02/15/23 18:22 Anti-Inflamma prior kidney damage acetaminophen AdvReac Nausea Unverified 02/15/23 18:22 amoxicillin AdvReac Nausea Verified 02/15/23 18:22 seafood Allergy Intermediate unknown Uncoded 02/15/23 18:22 enviornmental Allergy Mild sneezing Uncoded 02/15/23 18:22 General Stated Complaint: GenMedical MARY KAY: 3 Review of Systems Narrative: All systems reviewed and patient states no new complaints per her baseline chronic conditions. 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 Patient is using the Depo-Provera for menstrual cycle control. Depression (12/31/16) Drug abuse, episodic use Dysuria Family history of colon cancer Fatigue Generalized headaches (12/31/16) Hemolytic uremic syndrome History of allergic reaction History of mastoiditis Hypertrophy of tonsils and adenoids Illiteracy Per caregiver she is able to read and write, she needs assitance with comprehension of more complex words. Jaw pain Mesenteric lymphadenitis Otalgia, right ear Overactive bladder (02/09/18) Pain, dental PTSD (post-traumatic stress disorder) RBC microcytosis Steatosis of liver SASHA (stress urinary incontinence, female) Suicidal ideation TMJ tenderness, left Vitamin D deficiency Surgical History History of colonoscopy (~06/2022) History of kidney surgery Hx of tooth extraction Social History Smoking/Tobacco Use Status: Former Tobacco Use Quit Date: 11/27/22 Smoking risk assessment performed?: Yes Alcohol Intake: former Drug use: Current Sobriety Substance use type: marijuana Sexually active: Yes (female partner only now(May 2022). Has never had intercourse) Do you think of yourself as: lesbian/cash/homosexual What is your relationship status?: never Panel score (0-1 are the most socially isolated patients): 0 Do you feel safe at home: Yes Do you feel safe in your relationship?: Yes Additional Social history: lives alone - states she feels sad when she is alone Female Reproductive History Menstrual control method: progesterone injection History History 0 Para Hx # Term Pregnancies Multiple births Hx # Pregnancies Ectopic pregnancies AB induced Hx Number of Living Children AB spontaneous Exam Const General: cooperative, no acute distress and not ill appearing Orientation: alert, awake and oriented x3 HENMT Mouth: moist mucous membranes Resp Effort & Inspection: normal respiratory effort, able to speak in complete sentences and no respiratory distress Auscultation: clear to auscultation bilaterally Cardio Rate: regular rate Rhythm: regular rhythm Heart Sounds: S1 normal and S2 normal Skin General skin exam: no rashes or lesions noted Neuro General: patient alert, patient awake, patient oriented x3, moves all extremities and no focal motor deficits Sensory Exam: no sensory deficits noted Course Vital Signs Vital signs: Vital Signs Temperature 37.3 C 02/15/23 18:20 Pulse 108 H 02/15/23 18:20 Respiratory Rate 18 02/15/23 18:20 Blood Pressure 160/113 H 02/15/23 18:20 Pulse Oximetry 98 02/15/23 18:20 Temperature 37.3 C 02/15/23 18:20 Temperature Source Oral 02/15/23 18:20 Pulse 108 H 02/15/23 18:20 Respiratory Rate 18 02/15/23 18:20 Respiratory Effort Normal, Non-Labored 02/15/23 18:22 Blood Pressure 160/113 H 02/15/23 18:20 Pulse Oximetry 98 02/15/23 18:20 Oxygen Delivery Method Room Air 02/15/23 18:20 Oxygen Flow Rate 0 02/15/23 18:20
== END 2023-02-15 18:51 | disposition home or self-care (01) ==
PROVIDERS: Emergency Provider Nurse Practitioner Family; PCP Family Medicine
DX: Z71.1 Person with feared health complaint in whom no diagnosis is made (principal)
CPT/HCPCS: 99281; 99282

== ENCOUNTER 2023-03-04 14:30 | Outpatient (REF) | payer MEDICAID, SELFPAY ==
[2023-03-07 10:23] LABS: HSV Type 1 Ab, IgG Negative (Negative); HSV Type 2 Ab, IgG Negative (Negative)
[2023-03-07 10:34] LABS: HIV-1/2 Ag & Ab Screen Negative (Negative)
[2023-03-07 10:47] LABS: Hepatitis C Ab w Rflx HCV PCR Negative (Negative)
[2023-03-07 12:30] LABS: Chlamydia Result Negative (Negative); GC Result Negative (Negative)
== END 2023-03-04 14:31 | disposition home or self-care (01) ==
LOC: LBN 14:30
PROVIDERS: PCP Nurse Practitioner Family; Visit Provider Nurse Practitioner Family
DX: N76.0 Acute vaginitis (principal); R10.2 Pelvic and perineal pain; N39.0 Urinary tract infection, site not specified; Z11.4 Encounter for screening for human immunodeficiency virus [HIV]; Z11.59 Encounter for screening for other viral diseases; Z11.3 Encounter for screening for infections with a predominantly sexual mode of transmission
CPT/HCPCS: 86803; 87389; 87491; 87591; 86695; 86696; 87086; 87480; 87510; 87660

== ENCOUNTER 2023-03-14 14:25 | Emergency (ER) | payer MEDICAID, SELFPAY ==
[2023-03-14 14:28] VITALS: BP 116/80; PULSE 105; RESP 20; TEMP 36.2; O2SAT 99
--- NOTE | 2023-03-14 14:31 | W.ED.GENAD ---
Discharge Plan Disposition Patient Disposition: Home Discharge Details Clinical Impression: BRBPR (bright red blood per rectum) Primary Care Provider: Niyah Serna ED Provider: Luis Armando Schmitz Home Meds and New Rx's Prescriptions: Continued melatonin 3 mg tablet 5 mg PO HS Rx Instructions: 1-2 tabs (3-6 mg) po at hs albuterol sulfate [Ventolin HFA] 90 mcg/actuation HFA aerosol inhaler 2 inh IH Q4H PRN labetalol 100 mg tablet 50 mg PO QAM norethindrone (contraceptive) [Carla] 0.35 mg tablet 0.35 mg PO DAILY Qty: 84 3RF pantoprazole 40 mg Tablet,Delayed Release (Dr/Ec) 40 mg PO QAM quetiapine 25 mg Tablet 25 mg PO BID clonidine HCl 0.2 mg tablet 0.2 mg PO QHS Patient Comments: TAKE ONE TABLET BY MOUTH AT BEDTIME acetaminophen 500 mg Tablet 1,000 mg PO PRN PRN ondansetron 4 mg tablet,disintegrating 4 mg PO Q8H PRNQty: 14 0RF Discharge Instructions Additional Instructions: You were seen in the emergency department for the bleeding from your rectum. Your blood counts showed that you are not anemic and do not require blood transfusion. If you have multiple rounds of bleeding from your rectum or if you pass out please return to the emergency department. Discharge Data Discharge Date/Time-TO BE ENTERED AT DEPARTURE: 03/14/23 16:30 Medical Decision Making This is an overall well-appearing afebrile and mildly tachycardic 27-year-old man female with bright red blood per rectum. She is not anticoagulated to suggest need for reversal. She is not an alcoholic to suggest brisk upper GI bleed. She had no obvious hemorrhoids or anal fissures. She is low risk for ongoing bleeding based on the [employer] clinical guideline for upper GI bleed we will discharge patient home given her Glascow [place] bleeding score of 1. She received one point for her tachycardia which seems to be fairly chronic for this patient. If her labs are reassuring anticipate discharge. She had no abdominal pain no tenderness on exam to suggest intra-abdominal process. Furthermore she has had five CT scans of her abdomen in the past year. Give her age I'm concerned about exposure to radiation.No diarrhea to suggest diverticulitis. No vomiting to suggest acute cholecystitis. She has had no recent fevers to suggest appendicitis. No nausea nor vomiting to suggest pancreatitis. No pain out of proportion to suggest necrotizing soft tissue infection. No history of trauma to rectum to suggest increased risk for mucosal injury. No history of IBD to suggest flare. 3:50 PM CBC with mild leukocytosis. No anemia. No thrombocytopenia. CMP with normal BUN no AIDAN and reassuring comprehensive metabolic panel. Patient and I discussed return for any abdominal pain and persistent bleeding or any syncope. It is certainly possible that she may have a recurrent polyp. I advised PCP fu for reassessment. HPI General Date/Time Provider Initiated Documentation: 03/14/23 14:30. HPI Narrative: This is a 27-year-old female not on anticoagulation with a history of hyperplastic colonic polyp status post remote EGD and colonoscopy now in the emergency department in the setting of a single episode of bright red blood per rectum which occurred at approximately 1 PM this afternoon. Patient reports that she has had hemorrhoids in the past. She said that these were treated with excision by surgery. She was in her usual state of health today and had a single episode of bright red blood per rectum. She felt lightheaded at the time. She denies any preceding abdominal pain nausea fevers chills chest pain and shortness of breath. No dysuria nor frequency. She has not required transfusion in the past. Related Data Home Medications Medication Instructions Recorded Confirmed acetaminophen 500 mg tablet 1,000 mg PO PRN PRN 10/30/19 03/14/23 albuterol sulfate 90 mcg/actuation 2 inh inhalation Q4H PRN 05/13/20 03/14/23 aerosol inhaler (Ventolin HFA) labetalol 100 mg tablet 50 mg PO QAM 09/25/21 03/14/23 melatonin 3 mg tablet 5 mg PO HS 09/25/21 03/14/23 ondansetron 4 mg disintegrating 4 mg PO Q8H PRN #14 tabs 10/28/22 03/14/23 tablet pantoprazole 40 mg tablet,delayed 40 mg PO QAM 11/22/22 03/14/23 release quetiapine 25 mg tablet 25 mg PO BID 11/22/22 03/14/23 norethindrone (contraceptive) 0.35 0.35 mg PO DAILY #84 tabs 02/02/23 03/14/23 mg tablet (Carla) clonidine HCl 0.2 mg tablet 0.2 mg PO QHS 02/15/23 03/14/23 Previous Rx's Medication Instructions Recorded ondansetron 4 mg disintegrating 4 mg PO Q8H PRN #14 tabs 10/28/22 tablet norethindrone (contraceptive) 0.35 0.35 mg PO DAILY #84 tabs 02/02/23 mg tablet (Carla) Allergies Allergy/AdvReac Type Severity Reaction Status Date / Time fluticasone Allergy Severe unknown Verified 03/04/23 14:12 [From Flovent HFA] lisinopril Allergy Intermediate unknown Verified 03/04/23 14:12 paroxetine HCl [From Paxil] Allergy Intermediate Hives Verified 03/04/23 14:12 polyethylene glycol 3350 Allergy Intermediate unknown Verified 03/04/23 14:12 [From Miralax] risperidone [From Risperdal] Allergy Intermediate Hives Verified 03/04/23 14:12 NSAIDS (Non-Steroidal Allergy Due to Verified 03/04/23 14:12 Anti-Inflamma prior kidney damage acetaminophen AdvReac Nausea Unverified 03/04/23 14:12 amoxicillin AdvReac Nausea Verified 03/04/23 14:12 seafood Allergy Intermediate unknown Uncoded 03/04/23 14:12 enviornmental Allergy Mild sneezing Uncoded 03/04/23 14:12 General MARY KAY: 3 PFSH All Active Problems (Updated 03/14/23 @ 16:02 by Luis Armando Schmitz MD) BRBPR (bright red blood per rectum) (Acute) Contraception, generic surveillance (Acute) Health maintenance examination (Acute) COVID (Acute) Hyperplastic colon polyp (Acute) Rectal polyp (Acute) Chronic kidney disease, stage 1 (Chronic 12/31/16) from renal infection as a child elevated BP resulting 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 Patient is using the Depo-Provera for menstrual cycle control. Depression (12/31/16) Drug abuse, episodic use Dysuria Family history of colon cancer Fatigue Generalized headaches (12/31/16) Hemolytic uremic syndrome History of allergic reaction History of mastoiditis Hypertrophy of tonsils and adenoids Illiteracy Per caregiver she is able to read and write, she needs assitance with comprehension of more complex words. Jaw pain Mesenteric lymphadenitis Otalgia, right ear Overactive bladder (02/09/18) Pain, dental PTSD (post-traumatic stress disorder) RBC microcytosis Steatosis of liver SASHA (stress urinary incontinence, female) Suicidal ideation TMJ tenderness, left Vitamin D deficiency Surgical History History of colonoscopy (~06/2022) History of kidney surgery Hx of tooth extraction Social History Smoking/Tobacco Use Status: Former Tobacco Use Quit Date: 11/27/22 Smoking risk assessment performed?: Yes Alcohol Intake: former Drug use: Current Sobriety Substance use type: marijuana Sexually active: Yes (female partner only now(May 2022). Has never had intercourse) Do you think of yourself as: lesbian/cash/homosexual What is your relationship status?: never Panel score (0-1 are the most socially isolated patients): 0 Do you feel safe at home: Yes Do you feel safe in your relationship?: Yes Additional Social history: lives alone - states she feels sad when she is alone Female Reproductive History Menstrual control method: progesterone injection History History 0 Para Hx # Term Pregnancies Multiple births Hx # Pregnancies Ectopic pregnancies AB induced Hx Number of Living Children AB spontaneous Exam Narrative Exam Narrative: General: Well-appearing in no acute distress speaking in complete sentences. Head: Normocephalic, atraumatic. Eye: Pupils equal, round reactive to light. Extraocular eye movements intact. No conjunctival injection. No scleral icterus. Ear, nose, mouth, throat: Grossly normal inspection. Normal voice, handling secretions normally. Neck: Trachea midline. Cardiovascular: Well-perfused distal extremities. Respiratory: Nonlabored respiration. Gastrointestinal: Nondistended abdomen. Soft nontender abdomen. External rectal exam: In the presence of female cleo Nieto emergency department clinical pharmacy technician I completed an external rectal exam. There was no obvious anal fissures. No active bleeding. No hemorrhoids. Musculoskeletal: No edema. Moving all 4 extremities spontaneously. Skin: Normal for age and race, grossly normal temperature and turgor. No acute rash. Neurologic: Alert and appropriate, no apparent acute deficits. Psychiatric: Mood and manner are appropriate. Grooming and personal hygiene are appropriate.
[2023-03-14 15:06] LABS: Abs Immature Grans 0.04 10^3/uL (0.0-0.06); Absolute Basophil Count 0.06 10^3/uL (0.0-0.2); Absolute Eosinophil Count 0.21 10^3/uL (0.0-0.7); Absolute Lymphocyte Count 2.29 10^3/uL (1.2-3.4); Absolute Monocyte Count 0.81 10^3/uL (0.1-0.8); Absolute Neutrophil Count 7.69 10^3/uL (1.2-6.7); Basophils % 0.5; Eosinophils % 1.9; HCT 40.8 % (36.0-46.0); Immature Grans % 0.4; Lymphocytes % 20.6; MCH 23.4 pg (27.0-33.0); MCHC 31.9 % (32.0-36.0); MCV 74 fL (80-95); MPV 11.9 fL (8.0-11.0); Monocytes % 7.3; Neutrophils % 69.3; Platelet Count 288 10^3/uL (130-400); RBC 5.55 10^6/uL (3.93-5.22); RDW 15.9 % (11.7-14.6); RDW-SD 41.8 fL
[2023-03-14] MEDS: Normal Saline 1,000 ML 1000 ML IV (15:10)
[2023-03-14 15:22] LABS: Diff Comment Diff Reviewed; Microcytosis 2+
[2023-03-14 15:33] LABS: ALT 31 U/L (14-59); AST 14 U/L (15-37); Alkaline Phosphatase 104 U/L (46-116); Anion Gap 11.9 mmol/L (3-11); BUN 9 mg/dL (7-18); Bilirubin, Total 0.3 mg/dL (0.2-1.0); CO2 24.1 mmol/L (21.0-32.0); CREATININE 0.8 mg/dL (0.55-1.02); Calcium 9.4 mg/dL (8.5-10.1); Chloride 104 mmol/L (98-107); Glucose 128 mg/dL (74-106); Potassium 4.1 mmol/L (3.5-5.1); Sodium 140 mmol/L (136-145); Total Protein 7.5 g/dL (6.4-8.2)
[2023-03-14 16:05] VITALS: PULSE 103; O2SAT 98
[2023-03-14 16:28] VITALS: BP 117/77; PULSE 103; RESP 18; O2SAT 97
== END 2023-03-14 16:30 | disposition home or self-care (01) ==
PROVIDERS: Emergency Provider Emergency Medicine; PCP Nurse Practitioner Family
DX: K62.5 Hemorrhage of anus and rectum (principal); D72.829 Elevated white blood cell count, unspecified
CPT/HCPCS: 80053; 96360; 99283; 85025

== ENCOUNTER 2023-03-14 18:26 | Outpatient (REF) | payer MEDICAID, SELFPAY ==
[2023-03-14 17:44] LABS: Vitamin D 25 Total 24.8 ng/mL (30-100)
== END 2023-03-14 18:27 | disposition home or self-care (01) ==
LOC: NCHCN 18:26
PROVIDERS: PCP Nurse Practitioner Family; Visit Provider Nurse Practitioner Family
DX: E55.9 Vitamin D deficiency, unspecified (principal)
CPT/HCPCS: 82306

== ENCOUNTER 2023-03-20 12:42 | Emergency (ER) | payer MEDICAID, SELFPAY ==
[2023-03-20 12:49] VITALS: BP 137/93; PULSE 110; RESP 16; TEMP 36.6; O2SAT 97
[2023-03-20 13:27] LABS: Bilirubin Negative (Negative); Blood Negative (Negative); Clarity Clear (Clear); Glucose Negative (Negative); Ketones Negative (Negative); Leukocyte Esterase Negative (Negative); Nitrite Negative (Negative); Specific Gravity >= 1.030 (1.005-1.025); Urobilinogen 0.2 mg/dL (Up to 0.2)
[2023-03-20 13:39] LABS: Bacteria Few HPF (Negative); C & S Indicated? No/Sq. Contamination; Casts Negative LPF (Negative); Crystals Negative HPF (Negative); Epithelial Cells Many HPF (Negative); Mucus Trace (Negative); RBC 0-2 HPF (0-2)
[2023-03-20 14:45] LABS: Abs Immature Grans 0.04 10^3/uL (0.0-0.06); Absolute Basophil Count 0.05 10^3/uL (0.0-0.2); Absolute Eosinophil Count 0.16 10^3/uL (0.0-0.7); Absolute Lymphocyte Count 2.29 10^3/uL (1.2-3.4); Absolute Monocyte Count 0.88 10^3/uL (0.1-0.8); Basophils % 0.4; Eosinophils % 1.4; HCT 42.1 % (36.0-46.0); HGB 13.5 g/dL (11.2-15.7); Immature Grans % 0.3; MCH 23.7 pg (27.0-33.0); MCHC 32.1 % (32.0-36.0); MCV 74 fL (80-95); MPV 12.2 fL (8.0-11.0); Monocytes % 7.7; Neutrophils % 70.2; Platelet Count 318 10^3/uL (130-400); RBC 5.69 10^6/uL (3.93-5.22); RDW 15.7 % (11.7-14.6); RDW-SD 41.2 fL; WBC 11.44 10^3/uL (4.4-10.8)
[2023-03-20 14:48] LABS: Absolute Neutrophil Count 8.03 10^3/uL (1.2-6.7)
--- NOTE | 2023-03-20 14:50 | ED.GENADUL_ITS ---
Discharge Plan Disposition Patient Disposition: Home Condition: Improving Discharge Details Clinical Impression: Abdominal pain, BRBPR (bright red blood per rectum) Primary Care Provider: Niyah Serna ED Provider: Kenton Irene Home Meds and New Rx's Prescriptions: Continued melatonin 3 mg tablet 5 mg PO HS Rx Instructions: 1-2 tabs (3-6 mg) po at hs albuterol sulfate [Ventolin HFA] 90 mcg/actuation HFA aerosol inhaler 2 inh IH Q4H PRN labetalol 100 mg tablet 50 mg PO QAM norethindrone (contraceptive) [Carla] 0.35 mg tablet 0.35 mg PO DAILY Qty: 84 3RF pantoprazole 40 mg Tablet,Delayed Release (Dr/Ec) 40 mg PO QAM quetiapine 25 mg Tablet 25 mg PO BID clonidine HCl 0.2 mg tablet 0.2 mg PO QHS Patient Comments: TAKE ONE TABLET BY MOUTH AT BEDTIME acetaminophen 500 mg Tablet 1,000 mg PO PRN PRN ondansetron 4 mg tablet,disintegrating 4 mg PO Q8H PRNQty: 14 0RF Discharge Instructions Instructions: Abdominal Pain (ED) Additional Instructions: Continue to monitor symptoms and if you have any new or significant worsening of your symptoms feel free to return to the emergency department for reassessment otherwise it is very important that you follow-up with general surgery for further investigation and testing of your rectal bleeding. Referrals: [facility] [Provider Group] (Please call the office for arrangement of follow-up appointment) Niyah Serna [Primary Care Provider] - Discharge Data Discharge Date/Time-TO BE ENTERED AT DEPARTURE: 03/20/23 15:29 Medical Decision Making Patient presenting to the emergency department for chief complaint of abdominal pain and bloody diarrhea. She states that today while lifting something she felt a pop in her abdomen and had sudden sharp pain and felt lightheaded. The pain has since decreased and she states overall that her bleeding per rectum has been improving but still not fully gone. Given the sharp pain she is coming for evaluation. Physical exam shows no significant tachycardia on my examination but on checking vitals noted tachycardia, patient not hypotensive, soft nontender abdomen at this point with normal active bowel sounds. Patient deferred on rectal exam. Did review patient's past medical records including primary care visit dated 03/16 and emergency department visit dated 03/14. Patient is pending a referral to general surgery for further investigation of her rectal bleeding with Hemoccult +2 days ago with no noted hemorrhoid or fissure. Given overall benign abdominal exam with no noted abdominal tenderness and otherwise patient well-appearing I feel it is appropriate to perform repeat blood work but do not feel that we need to repeat any advanced imaging. Reviewed patient's blood work and patient has a chronic leukocytosis which is for the most part unchanged from previous ones, has no signs of anemia at this time with a hemoglobin of 13.5 and hematocrit of 42 CMP shows slightly elevated anion gap 11.2 and low AST of 14 otherwise normal CMP. Urinalysis shows high specific gravity again otherwise unremarkable and negative. Patient reassessed and has overall stable symptoms with no worsening of condition. I do feel the patient can appropriately follow-up with primary care provider as needed pending general surgery referral. After discussion of diagnosis and plan of care patient has no further needs, questions, or concerns and states clear understanding to return to the emergency department for any worsening symptoms. This documentation was generated using [employer] dictation system, please disregard any oddities of phrase or misspellings. HPI General Mode of arrival: ambulatory . Date/Time Provider Initiated Documentation: 03/20/23 12:44 . Limitations to Documentation: no limitations . Information obtained by: patient and RN notes reviewed . History of Present Illness 27 year old F presents to the emergency department with the chief complaint of Abdominal pain, blood per rectum, described as moderate and similar to prior episodes, Patient abdomen. Patient started experiencing this week(s) (2) and it has been constant and other (Improving). No relieving factors improve symptom(s), No exacerbating factors reported . Patient notes no other symptoms.. Patient did receive the following treatments prior to arrival, none Related Data Home Medications Medication Instructions Recorded Confirmed acetaminophen 500 mg tablet 1,000 mg PO PRN PRN 10/30/19 03/14/23 albuterol sulfate 90 mcg/actuation 2 inh inhalation Q4H PRN 05/13/20 03/14/23 aerosol inhaler (Ventolin HFA) labetalol 100 mg tablet 50 mg PO QAM 09/25/21 03/14/23 melatonin 3 mg tablet 5 mg PO HS 09/25/21 03/14/23 ondansetron 4 mg disintegrating 4 mg PO Q8H PRN #14 tabs 10/28/22 03/14/23 tablet pantoprazole 40 mg tablet,delayed 40 mg PO QAM 11/22/22 03/14/23 release quetiapine 25 mg tablet 25 mg PO BID 11/22/22 03/14/23 norethindrone (contraceptive) 0.35 0.35 mg PO DAILY #84 tabs 02/02/23 03/14/23 mg tablet (Carla) clonidine HCl 0.2 mg tablet 0.2 mg PO QHS 02/15/23 03/14/23 Previous Rx's Medication Instructions Recorded ondansetron 4 mg disintegrating 4 mg PO Q8H PRN #14 tabs 10/28/22 tablet norethindrone (contraceptive) 0.35 0.35 mg PO DAILY #84 tabs 02/02/23 mg tablet (Carla) Allergies Allergy/AdvReac Type Severity Reaction Status Date / Time fluticasone Allergy Severe unknown Verified 03/04/23 14:12 [From Flovent HFA] lisinopril Allergy Intermediate unknown Verified 03/04/23 14:12 paroxetine HCl [From Paxil] Allergy Intermediate Hives Verified 03/04/23 14:12 polyethylene glycol 3350 Allergy Intermediate unknown Verified 03/04/23 14:12 [From Miralax] risperidone [From Risperdal] Allergy Intermediate Hives Verified 03/04/23 14:12 NSAIDS (Non-Steroidal Allergy Due to Verified 03/04/23 14:12 Anti-Inflamma prior kidney damage acetaminophen AdvReac Nausea Unverified 03/04/23 14:12 amoxicillin AdvReac Nausea Verified 03/04/23 14:12 seafood Allergy Intermediate unknown Uncoded 03/04/23 14:12 enviornmental Allergy Mild sneezing Uncoded 03/04/23 14:12 General Stated Complaint: Abd Prob MARY KAY: 3 Review of Systems Constitutional Constitutional: Denies chills and Denies fever(s) Cardiovascular Cardiovascular: Denies chest pain, Reports lightheadedness and Denies dyspnea Respiratory Respiratory: Denies dyspnea Gastrointestinal Gastrointestinal: Reports as per HPI, Reports abdominal pain, Reports hematochezia, Denies diarrhea, Denies nausea, Denies vomiting and Denies hematemesis Genitourinary Genitourinary: Denies abnormal vaginal bleeding and Denies hematuria Musculoskeletal Musculoskeletal: Denies back pain PFSH All Active Problems (Updated 03/20/23 @ 15:20 by Kenton Irene NP) BRBPR (bright red blood per rectum) (Acute) Abdominal pain (Acute) Contraception, generic surveillance (Acute) COVID (Acute) Hyperplastic colon polyp (Acute) Rectal polyp (Acute) Chronic kidney disease, stage 1 (Chronic 12/31/16) from renal infection as a child elevated BP resulting 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 Patient is using the Depo- Provera for menstrual cycle control. Depression (12/31/16) Drug abuse, episodic use Dysuria Family history of colon cancer Fatigue Generalized headaches (12/31/16) Hemolytic uremic syndrome History of allergic reaction History of mastoiditis Hypertrophy of tonsils and adenoids Illiteracy Per caregiver she is able to read and write, she needs assitance with comprehension of more complex words. Jaw pain Mesenteric lymphadenitis Otalgia, right ear Overactive bladder (02/09/18) Pain, dental PTSD (post-traumatic stress disorder) RBC microcytosis Steatosis of liver SASHA (stress urinary incontinence, female) Suicidal ideation TMJ tenderness, left Vitamin D deficiency Surgical History History of colonoscopy (~06/2022) History of kidney surgery Hx of tooth extraction Social History Smoking/Tobacco Use Status: Former Tobacco Use Quit Date: 11/27/22 Smoking risk assessment performed?: Yes Alcohol Intake: former Drug use: Current Sobriety Substance use type: marijuana Sexually active: Yes (female partner only now(May 2022). Has never had intercourse) Do you think of yourself as: lesbian/cash/homosexual What is your relationship status?: never Panel score (0-1 are the most socially isolated patients): 0 Do you feel safe at home: Yes Do you feel safe in your relationship?: Yes Additional Social history: lives alone - states she feels sad when she is alone Female Reproductive History Menstrual control method: progesterone injection History History 0 Para Hx # Term Pregnancies Multiple births Hx # Pregnancies Ectopic pregnancies AB induced Hx Number of Living Children AB spontaneous Exam Const General: cooperative Orientation: alert, awake and oriented x3 Resp Effort & Inspection: normal respiratory effort and able to speak in complete sentences Auscultation: clear to auscultation bilaterally Cardio Rate: regular rate Rhythm: regular rhythm Heart Sounds: S1 normal and S2 normal GI Palpation: soft, no hepatosplenomegaly, not firm, no guarding, no masses, no pulsatile masses, not rigid, no splenomegaly and nontender Auscultation: normal bowel sounds Rectal Exam - female: deferred Back/Spine/Pelvis Back: no CVA tenderness Neuro General: patient alert, patient awake, patient oriented x3, gait normal and moves all extremities Course Vital Signs Vital signs: Vital Signs Temperature 36.6 C 03/20/23 12:49 Pulse 110 H 03/20/23 12:49 Respiratory Rate 16 03/20/23 12:49 Blood Pressure 137/93 H 03/20/23 12:49 Pulse Oximetry 97 03/20/23 12:49 Temperature 36.6 C 03/20/23 12:49 Pulse 110 H 03/20/23 12:49 Respiratory Rate 16 03/20/23 12:49 Respiratory Effort Normal 03/20/23 13:15 Blood Pressure 137/93 H 03/20/23 12:49 Blood Pressure Position Sitting 03/20/23 12:49 Pulse Oximetry 97 03/20/23 12:49 Oxygen Delivery Method Room Air 03/20/23 12:49 Oxygen Flow Rate 0 03/20/23 12:49 Pain Level 7 03/20/23 12:49 Lab/Test Results Lab/Test Results: Laboratory Tests Range/Units 03/20/23 03/20/23 13:18 14:34 WBC (4.4-10.8) 10^3/uL 11.44 H RBC (3.93-5.22) 10^6/uL 5.69 H Hgb (11.2-15.7) g/dL 13.5 Hct (36.0-46.0) % 42.1 MCV (80-95) fL 74 L MCH (27.0-33.0) pg 23.7 L MCHC (32.0-36.0) % 32.1 RDW (11.7-14.6) % 15.7 H Plt Count (130-400) 10^3/uL 318 MPV (8.0-11.0) fL 12.2 H Immature Gran % 0.3 Neutrophils % 70.2 Lymphocytes % 20.0 Monocytes % 7.7 Eosinophils % 1.4 Basophils % 0.4 Nucleated RBC % (0.0-0.3) % 0.0 Absolute Neutrophils (1.2-6.7) 10^3/uL 8.03 H Absolute Lymphocytes (1.2-3.4) 10^3/uL 2.29 Absolute Monocytes (0.1-0.8) 10^3/uL 0.88 H Absolute Eosinophils (0.0-0.7) 10^3/uL 0.16 Absolute Basophils (0.0-0.2) 10^3/uL 0.05 Urine Color (Yellow) Yellow Urine Clarity (Clear) Clear Urine pH (5-8) 6.0 Ur Specific [place] (1.005-1.025) >= 1.030 H Urine Protein (Negative) mg/dL 30 H Urine Ketones (Negative) mg/dL Negative Urine Blood (Negative) Negative Urine Nitrite (Negative) Negative Urine Bilirubin (Negative) Negative Urine Urobilinogen (Up to 0.2) mg/dL 0.2 Ur Leukocyte Esterase (Negative) Negative Urine RBC (0-2) HPF 0-2 Urine WBC (0-5) HPF 3-5 Ur Epithelial Cells (Negative) HPF Many Urine Crystals (Negative) HPF Negative Urine Bacteria (Negative) HPF Few Urine Casts (Negative) LPF Negative Urine Mucus (Negative) Trace Ur Culture Indicated? No/Sq. Contamination Urine Glucose (Negative) mg/dL Negative POC- Test(urine) Negative
[2023-03-20 15:00] LABS: ALT 27 U/L (14-59); AST 14 U/L (15-37); Alkaline Phosphatase 101 U/L (46-116); Anion Gap 11.2 mmol/L (3-11); BUN 11 mg/dL (7-18); Bilirubin, Total 0.3 mg/dL (0.2-1.0); CO2 23.8 mmol/L (21.0-32.0); CREATININE 0.8 mg/dL (0.55-1.02); Calcium 9.6 mg/dL (8.5-10.1); Chloride 105 mmol/L (98-107); Glucose 104 mg/dL (74-106); Potassium 3.8 mmol/L (3.5-5.1); Sodium 140 mmol/L (136-145)
== END 2023-03-20 15:29 | disposition home or self-care (01) ==
PROVIDERS: Emergency Provider Nurse Practitioner Family; PCP Nurse Practitioner Family
DX: R10.9 Unspecified abdominal pain (principal); R19.7 Diarrhea, unspecified; R42 Dizziness and giddiness; K62.5 Hemorrhage of anus and rectum; D72.829 Elevated white blood cell count, unspecified
CPT/HCPCS: 80053; 81025; 86850; 86900; 86901; 99282; 81003; 81015; 85025; 99283; 99284

== ENCOUNTER 2023-04-12 00:30 | Emergency (ER) | payer MEDICAID, SELFPAY ==
[2023-04-12 00:29] VITALS: BP 129/49; PULSE 98; RESP 18; TEMP 36.5; O2SAT 98
--- NOTE | 2023-04-12 00:30 | DI.CT_ITS ---
Exam(s) CT ABDOMEN PELVIS W EXAM: CT ABDOMEN PELVIS W CLINICAL HISTORY: abd pain TECHNIQUE: Imaging Protocol: Axial computed tomography images with coronal and sagittal reformatted images were created and reviewed CONTRAST MATERIAL: Intravenous: Omnipaque 350 Contrast volume:100 mL Oral: No COMPARISON: CT CT CHEST/ABD/PEL W from 12/28/[address] THORACIC LUMBAR SPINE WO from 12/28/2022 FINDINGS: ABDOMEN: Lung Bases: Normal where visualized. Liver: Normal density. No measurable mass. Mildly enlarged measuring 19 cm. Portal, Superior Mesenteric, and Splenic Veins: Unremarkable. Gallbladder and Biliary Tract: No radiodense calculus or dilation. Pancreas: Normal density, no abnormal calcifications or inflammatory process. Spleen: Mildly enlarged measuring 14 cm. Adrenals: No masses seen. Kidneys: Normal size, contour and axis. No radiodense stones or obstructive uropathy. No masses seen. Abdominal Aorta: Abdominal portion non-dilated. Bowel: No obstruction or bowel wall thickening. No evidence of appendicitis. Peritoneal Cavity: No ascites, collection or mesenteric inflammatory response. No free air. Lymph Nodes: Mildly prominent lymph nodes seen in the mesentery. Bones: Within normal limits for the patient's age. Soft Tissues: Unremarkable. PELVIS: Bladder: Symmetric distention, no gross wall thickening. Reproductive Organs: Unremarkable as visualized. Lymph Nodes: Within normal limits. Bones: Within normal limits for the patient's age. IMPRESSION: 1. Mild enlarged mesenteric lymph nodes. These are nonspecific. This can be seen with a regional in flammatory or infectious process. Otherwise no acute abdominal or pelvic process. 2. Mild hepatosplenomegaly. RADIATION DOSE DELIVERED: 1,409.32mGy.cm Total DLP DATA REPOSITORY: All CT scans at this facility are submitted to the National Radiology Data Registry (NRDR) Dose Index Registry (DIR) with the [employer] ([employer]). RADIATION OPTIMIZATION: All CT scans at this facility use at least one of these dose optimization te chniques: automated exposure control; mA and/or kV adjustment per patient size (includes targeted exa ms where dose is matched to clinical indication); or iterative reconstruction.
--- NOTE | 2023-04-12 00:46 | ED.GENADUL_ITS ---
Discharge Plan Disposition Patient Disposition: Home Condition: Improving Discharge Details Chief Complaint: Nausea/Vomit/Diar Clinical Impression: Mesenteric adenitis Primary Care Provider: Niyah Serna ED Provider: Zeb Mcguire Home Meds and New Rx's Prescriptions: No Action melatonin 3 mg tablet 5 mg PO HS Rx Instructions: 1-2 tabs (3-6 mg) po at hs albuterol sulfate [Ventolin HFA] 90 mcg/actuation HFA aerosol inhaler 2 inh IH Q4H PRN labetalol 100 mg tablet 50 mg PO QAM norethindrone (contraceptive) [Carla] 0.35 mg tablet 0.35 mg PO DAILY Qty: 84 3RF albuterol sulfate [Ventolin HFA] 90 mcg/actuation HFA aerosol inhaler 2 puff inhalation Q6H PRN medroxyprogesterone [Depo-Provera] 150 mg/mL suspension 150 mg IM [id number] ergocalciferol (vitamin D2) 1,250 mcg (50,000 unit) capsule 1,250 mcg PO QWEEK floradix iron 1 tab PO DAILY quetiapine 25 mg tablet 25 mg PO BID buspirone 7.5 mg tablet 7.5 mg PO BID docusate sodium 100 mg capsule 100 mg PO DAILY lidocaine 4 % kit 1 ea topical PRN PRN cholecalciferol (vitamin D3) 50 mcg (2,000 unit) capsule 50 mcg PO DAILY pantoprazole 40 mg Tablet,Delayed Release (Dr/Ec) 40 mg PO QAM quetiapine 25 mg Tablet 25 mg PO BID clonidine HCl 0.2 mg tablet 0.2 mg PO QHS Patient Comments: TAKE ONE TABLET BY MOUTH AT BEDTIME acetaminophen 500 mg Tablet 1,000 mg PO PRN PRN Patient Comments: cannot take ondansetron 4 mg tablet,disintegrating 4 mg PO Q8H PRNQty: 14 0RF Patient Comments: not taking Discharge Instructions Instructions: Mesenteric Adenitis (ED) Medical Decision Making 28-year-old female presents with nausea vomiting diarrhea and abdominal pain, nontoxic nonperitoneal afebrile, consider viral syndrome versus foodborne il lness versus enteritis versus enterocolitis low suspicion for appendicitis ovarian torsion or UTI. Screening labs imaging fluids antiemetics close reassessment likely home with close follow-up 4: 21 evidence of mesenteric adenitis. Resting comfortably no nausea vomiting or diarrhea in the department. Hemodynamically stable. HPI General Date/Time Provider Initiated Documentation: 04/12/23 00:43 . HPI Narrative: 28-year-old female presents with abdominal pain and nausea. Generalized in nature. Some loose stool earlier today. Related Data Home Medications Medication Instructions Recorded Confirmed acetaminophen 500 mg tablet 1,000 mg PO PRN PRN 10/30/19 04/12/23 albuterol sulfate 90 mcg/actuation 2 inh inhalation Q4H PRN 05/13/20 04/12/23 aerosol inhaler (Ventolin HFA) labetalol 100 mg tablet 50 mg PO QAM 09/25/21 04/12/23 melatonin 3 mg tablet 5 mg PO HS 09/25/21 04/12/23 ondansetron 4 mg disintegrating 4 mg PO Q8H PRN #14 tabs 10/28/22 04/12/23 tablet pantoprazole 40 mg tablet,delayed 40 mg PO QAM 11/22/22 04/12/23 release quetiapine 25 mg tablet 25 mg PO BID 11/22/22 04/12/23 norethindrone (contraceptive) 0.35 0.35 mg PO DAILY #84 tabs 02/02/23 04/12/23 mg tablet (Carla) clonidine HCl 0.2 mg tablet 0.2 mg PO QHS 02/15/23 04/12/23 albuterol sulfate 90 mcg/actuation 2 puff inhalation Q6H PRN 03/24/23 04/12/23 aerosol inhaler (Ventolin HFA) buspirone 7.5 mg tablet 7.5 mg PO BID 03/24/23 04/12/23 cholecalciferol (vitamin D3) 50 50 mcg PO DAILY 03/24/23 04/12/23 mcg (2,000 unit) capsule docusate sodium 100 mg capsule 100 mg PO DAILY 03/24/23 04/12/23 ergocalciferol (vitamin D2) 1,250 1,250 mcg PO QWEEK 03/24/23 04/12/23 mcg (50,000 unit) capsule floradix iron 1 tab PO DAILY 03/24/23 04/12/23 lidocaine 4 % topical patch, kit 1 ea topical PRN PRN 03/24/23 04/12/23 with alcohol pads medroxyprogesterone 150 mg/mL 150 mg IM [id number] 03/24/23 04/12/23 intramuscular suspension (Depo-Provera) quetiapine 25 mg tablet 25 mg PO BID 03/24/23 04/12/23 Previous Rx's Medication Instructions Recorded ondansetron 4 mg disintegrating 4 mg PO Q8H PRN #14 tabs 10/28/22 tablet norethindrone (contraceptive) 0.35 0.35 mg PO DAILY #84 tabs 02/02/23 mg tablet (Carla) Allergies Allergy/AdvReac Type Severity Reaction Status Date / Time fluticasone Allergy Severe unknown Verified 04/12/23 00:41 [From Flovent HFA] fluoxetine Allergy Intermediate Verified 04/12/23 00:41 lisinopril Allergy Intermediate unknown Verified 04/12/23 00:41 paroxetine HCl [From Paxil] Allergy Intermediate Hives Verified 04/12/23 00:41 polyethylene glycol 3350 Allergy Intermediate unknown Verified 04/12/23 00:41 [From Miralax] risperidone [From Risperdal] Allergy Intermediate Hives Verified 04/12/23 00:41 sertraline Allergy Intermediate Verified 04/12/23 00:41 ibuprofen Allergy Unknown Verified 04/12/23 00:41 naproxen [From Aleve] Allergy Unknown Verified 04/12/23 00:41 NSAIDS (Non-Steroidal Allergy Due to Verified 04/12/23 00:41 Anti-Inflamma prior kidney damage acetaminophen AdvReac Nausea Unverified 04/12/23 00:41 amoxicillin AdvReac Nausea Verified 04/12/23 00:41 dark sodas Allergy Severe Uncoded 04/12/23 00:41 seafood Allergy Intermediate unknown Uncoded 04/12/23 00:41 enviornmental Allergy Mild sneezing Uncoded 04/12/23 00:41 General Stated Complaint: Nausea/Vomit/Diar MARY KAY: 3 Review of Systems Narrative: Review of Systems Constitutional: negative Eyes: negative ENT: negative Cardiovascular: negative Respiratory: negative Gastrointestinal: Abdominal pain nausea loose stool : negative Musculoskeletal: negative Skin: negative Neurologic: negative Psych: negative PFSH All Active Problems (Updated 04/12/23 @ 04:22 by Zeb Mcguire MD) Mesenteric adenitis (Acute) Nicotine dependence (Acute) BRBPR (bright red blood per rectum) (Acute) Abdominal pain (Acute) Contraception, generic surveillance (Acute) COVID (Acute) Hyperplastic colon polyp (Acute) Rectal polyp (Acute) Chronic kidney disease, stage 1 (Chronic 12/31/16) from renal infection as a child elevated BP resulting 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 Patient is using the Depo- Provera for menstrual cycle control. Depression (12/31/16) Drug abuse, episodic use Dysuria Family history of colon cancer Fatigue Generalized headaches (12/31/16) Hemolytic uremic syndrome History of allergic reaction History of mastoiditis Hypertrophy of tonsils and adenoids IBS (irritable bowel syndrome) Illiteracy Per caregiver she is able to read and write, she needs assitance with comprehension of more complex words. Jaw pain Mesenteric lymphadenitis Oppositional defiant disorder Otalgia, right ear Overactive bladder (02/09/18) Pain, dental PTSD (post-traumatic stress disorder) Rash, skin RBC microcytosis Sleep disturbance Steatosis of liver SASHA (stress urinary incontinence, female) Suicidal ideation TMJ tenderness, left Vitamin D deficiency Surgical History History of colonoscopy (~06/2022) History of kidney surgery Hx of tooth extraction Social History Smoking/Tobacco Use Status: Former Tobacco Use Quit Date: 11/27/22 Smoking risk assessment performed?: Yes Alcohol Intake: former Drug use: Current Sobriety Substance use type: marijuana Details: CBD Sexually active: Yes (female partner only now(May 2022). Has never had intercourse) Do you think of yourself as: lesbian/cash/homosexual What is your relationship status?: never Panel score (0-1 are the most socially isolated patients): 0 Do you feel safe at home: Yes Do you feel safe in your relationship?: Yes Female Reproductive History Menstrual control method: progesterone injection History History 0 Para Hx # Term Pregnancies Multiple births Hx # Pregnancies Ectopic pregnancies AB induced Hx Number of Living Children AB spontaneous Exam Narrative Exam Narrative: Physical Examination General: alert, awake, cooperative, resting comfortably, no acute distress HEENT: normocephalic, atraumatic; PERRL, EOM intact, conjunctiva normal; no nasal discharge; moist mucous membranes, oral and pharyngeal mucosa normal, tolerating secretions Neck: supple, trachea midline; full ROM Chest: normal to inspection Respiratory: normal respiratory effort, speaking in full sentences, clear to auscultation, no wheezing, rales or rhonchi Cardiac: regular rate, regular rhythm, S1S2 intact, no murmurs rubs or gallops GI: abdomen soft, non-tender, non-distended; no palpable mass or hepatosplenomegaly Skin: no lesions, rashes or trauma appreciated Neuro: AAOx3, normal speech, moving all extremities Psych: Appropriate mood and affect Course Vital Signs Vital signs: Vital Signs Temperature 36.5 C 04/12/23 00:29 Pulse 98 H 04/12/23 00:29 Respiratory Rate 18 04/12/23 00:29 Blood Pressure 129/49 L 04/12/23 00:29 Pulse Oximetry 98 04/12/23 00:29 Temperature 36.5 C 04/12/23 00:29 Temperature Source Oral 04/12/23 00:29 Pulse 98 H 04/12/23 00:29 Respiratory Rate 18 04/12/23 00:29 Respiratory Effort Normal 04/12/23 00:39 Blood Pressure 129/49 L 04/12/23 00:29 Blood Pressure Position Supine 04/12/23 00:29 Pulse Oximetry 98 04/12/23 00:29 Oxygen Delivery Method Room Air 04/12/23 00:29 Oxygen Flow Rate 0 04/12/23 00:29 Pain Level 10 04/12/23 00:29 Comment states pain is a 12 and it hurts right through my rectum 04/12/23 00:29
[2023-04-12 00:51] LABS: Abs Immature Grans 0.03 10^3/uL (0.0-0.06); Absolute Basophil Count 0.03 10^3/uL (0.0-0.2); Absolute Eosinophil Count 0.07 10^3/uL (0.0-0.7); Absolute Lymphocyte Count 1.61 10^3/uL (1.2-3.4); Absolute Monocyte Count 0.63 10^3/uL (0.1-0.8); Absolute Neutrophil Count 5.87 10^3/uL (1.2-6.7); Basophils % 0.4; Eosinophils % 0.8; HCT 40.8 % (36.0-46.0); HGB 13.1 g/dL (11.2-15.7); Immature Grans % 0.4; Lymphocytes % 19.5; MCH 23.6 pg (27.0-33.0); MCHC 32.1 % (32.0-36.0); MCV 74 fL (80-95); MPV 11.7 fL (8.0-11.0); Monocytes % 7.6; Neutrophils % 71.3; Platelet Count 286 10^3/uL (130-400); RBC 5.54 10^6/uL (3.93-5.22); RDW 15.3 % (11.7-14.6); RDW-SD 40.7 fL; WBC 8.24 10^3/uL (4.4-10.8)
[2023-04-12 01:01] LABS: Diff Comment RBC Morph Reviewed; Microcytosis 2+
[2023-04-12 01:07] LABS: ALT 37 U/L (14-59); AST 20 U/L (15-37); Albumin 4.2 g/dL (3.4-5.0); Alkaline Phosphatase 96 U/L (46-116); Anion Gap 10.8 mmol/L (3-11); BUN 10 mg/dL (7-18); Bilirubin, Total 0.4 mg/dL (0.2-1.0); CO2 23.2 mmol/L (21.0-32.0); CREATININE 0.7 mg/dL (0.55-1.02); Calcium 9.2 mg/dL (8.5-10.1); Chloride 100 mmol/L (98-107); Estimated GFR 122.25 (mL/min/1.73m2); Glucose 137 mg/dL (74-106); Lipase 23 U/L (16-77); Potassium 3.5 mmol/L (3.5-5.1); Sodium 134 mmol/L (136-145); Total Protein 8.1 g/dL (6.4-8.2)
[2023-04-12] MEDS: Normal Saline 1,000 ML 1000 ML IV (01:08)
[2023-04-12] MEDS: Ondansetron 4 MG/2 ML VIAL IVP (01:08)
[2023-04-12] MEDS: Omnipaque 350 MG/ML 100 ML BTL IJ (01:34)
[2023-04-12] MEDS: Normal Saline - Diluent 50 ML VIAL IJ (01:34)
[2023-04-12] MEDS: Normal Saline Flush 10 ML SYR IVP (01:34)
[2023-04-12 01:40] LABS: Bilirubin Small (Negative); Blood Moderate (Negative); Clarity Clear (Clear); Glucose Negative (Negative); Ketones 80 mg/dL (Negative); Leukocyte Esterase Negative (Negative); Nitrite Negative (Negative); Specific Gravity 1.025 (1.005-1.025); Urobilinogen 0.2 mg/dL (Up to 0.2); pH 5.5 (5-8)
[2023-04-12 01:46] LABS: Bacteria Rare HPF (Negative); Crystals Negative HPF (Negative); Epithelial Cells Moderate HPF (Negative); Mucus Trace (Negative); RBC 20-50 HPF (0-2); WBC 0-2 HPF (0-5)
[2023-04-12 01:47] LABS: C & S Indicated? No
[2023-04-12 01:52] LABS: *AMPHETAMINES SCREEN URINE Negative (Negative); *BARBITURATES SCREEN URINE Negative (Negative); *BENZODIAZEPINES SCREEN URINE Negative (Negative); Cannabinoids THC Negative (Negative); Cocaine Screen,Urine Negative (Negative); METHADONE URINE SCREEN Negative (Negative); OPIATES URINE SCREEN Negative (Negative)
[2023-04-12 01:53] LABS: Tricyclic Antidepressants Negative (Negative)
--- NOTE | 2023-04-12 04:18 | DI.VRAD_ITS ---
ROCEDURE INFORMATION: Exam: CT Abdomen And Pelvis With Contrast Exam date and time: 04/12/2023 2:22 AM Age: 28 years old Clinical indication: Abdominal pain; Generalized; Patient HX: Abd pain TECHNIQUE: Imaging protocol: Computed tomography of the abdomen and pelvis with contrast. Contrast material: OMNIPAQUE 350; Contrast volume: 100 ml; Contrast route: INTRAVENOUS (IV); COMPARISON: CT CHEST/ABD/PEL W 12/28/2022 5:21 PM FINDINGS: Lungs: Visualized lung bases are clear. No pleural effusions. Liver: Mildly enlarged, measuring 19 cm craniocaudal (previously 17.9 cm). Otherwise unremarkable. Gallbladder and bile ducts: Unremarkable. No calcified gallstones. No intrahepatic or extrahepatic biliary ductal dilation. Pancreas: Unremarkable. Spleen: Mildly enlarged, measuring 14.1 cm maximum diameter (previously 14.3 cm). Otherwise unremarkable. Adrenal glands: Unremarkable. Kidneys and ureters: No hydronephrosis or hydroureter. Normal and symmetric renal enhancement. No suspicious renal masses. Stomach and bowel: Unremarkable. The stomach is nondilated. The small and large bowel are normal in caliber. Appendix: A nondilated appendix is identified. Intraperitoneal space: No ascites, fluid collection, or pneumoperitoneum. The mesenteric haziness (lashonda mesentery) seen previously has near-completely resolved in the interim. Retroperitoneal space: Unremarkable. No retroperitoneal collection or mass. Vasculature: Unremarkable. The abdominal aorta is normal in caliber. Lymph nodes: There are numerous mesenteric lymph nodes, which are not pathologically enlarged by size criteria though overall greater in number than is typical and mildly increased in size since 12/28/2022. Some lymph nodes top-normal in size. Urinary bladder: Unremarkable. Reproductive: Unremarkable as visualized. Bones/joints: No suspicious osseous lesions. Soft tissues: Unremarkable. IMPRESSION: 1. Mild mesenteric lymphadenopathy, increased since 12/28/2022. This is nonspecific, possibly reactive (i.e., due to a regional inflammatory or infectious process). Otherwise, no acute abnormality in the abdomen or pelvis. 2. Mild hepatosplenomegaly. . Dictated and Authenticated by: Perlita Neville MD. Ordering:FILIPPO Carrington MD
== END 2023-04-12 04:41 | disposition home or self-care (01) ==
PROVIDERS: Emergency Provider Emergency Medicine; PCP Nurse Practitioner Family
DX: I88.0 Nonspecific mesenteric lymphadenitis (principal); R11.2 Nausea with vomiting, unspecified; R19.7 Diarrhea, unspecified
CPT/HCPCS: 80053; 80307; 83690; 96361; 96374; 99285; 74177; 81003; 81015; 85025; 99284; J2405; J3490

== ENCOUNTER 2023-05-08 08:09 | Emergency (ER) | payer MEDICAID, SELFPAY ==
[2023-05-08 08:24] VITALS: BP 137/72; PULSE 99; RESP 16; TEMP 36.5; O2SAT 99
[2023-05-08] MEDS: Hyoscyamine 0.5 MG/ML VIAL 0.25 MG IM (08:56)
[2023-05-08] MEDS: Ondansetron O.D.T. 4 MG TABEF PO (08:56)
--- NOTE | 2023-05-08 09:26 | W.ED.GENAD ---
Discharge Plan Disposition Patient Disposition: Home Discharge Details Clinical Impression: Diarrhea, Nausea & vomiting Primary Care Provider: Niyah Serna ED Provider: Leonor Simons Home Meds and New Rx's Prescriptions: New hyoscyamine sulfate [Levsin] 0.125 mg tablet 0.125 mg PO BID-QID PRNQty: 10 0RF ondansetron 4 mg tablet,disintegrating 4 mg PO Q8H PRN5 Days Qty: 10 0RF Continued melatonin 3 mg tablet 5 mg PO HS Rx Instructions: 1-2 tabs (3-6 mg) po at hs labetalol 100 mg tablet 50 mg PO QAM norethindrone (contraceptive) [Carla] 0.35 mg tablet 0.35 mg PO DAILY Qty: 84 3RF albuterol sulfate [Ventolin HFA] 90 mcg/actuation HFA aerosol inhaler 2 puff inhalation Q6H PRN ergocalciferol (vitamin D2) 1,250 mcg (50,000 unit) capsule 1,250 mcg PO QWEEK floradix iron 1 tab PO DAILY quetiapine 25 mg tablet 25 mg PO BID buspirone 7.5 mg tablet 7.5 mg PO BID docusate sodium 100 mg capsule 100 mg PO DAILY lidocaine 4 % kit 1 ea topical PRN PRN pantoprazole 40 mg Tablet,Delayed Release (Dr/Ec) 40 mg PO QAM clonidine HCl 0.2 mg tablet 0.2 mg PO QHS Patient Comments: TAKE ONE TABLET BY MOUTH AT BEDTIME acetaminophen 500 mg Tablet 1,000 mg PO PRN PRN Patient Comments: cannot take ondansetron 4 mg tablet,disintegrating 4 mg PO Q8H PRNQty: 14 0RF Patient Comments: not taking Discharge Instructions Instructions: Acute Nausea and Vomiting (ED), Acute Diarrhea (ED) Additional Instructions: [place] diet as tolerated Zofran as needed for nausea and vomiting Levsin for the cramping in your abdomen, if you start to become constipated stop this medication as it can cause constipation and return earlier should you have new or worsening complaints Medical Decision Making This 28-year-old female presents with nausea vomiting and diarrhea since last night, she appears well, her vitals are stable She is given a shot of Levsin and some Zofran and is feeling marked improvement in symptoms, she has labs frequently and her last chemistry was within normal limits, she is able to tolerate p.o. will be discharged home on Zofran as needed She denies any chance of and is otherwise well in appearance She is given the threshold to return to gym new or worsening complaints and discharged home in stable condition with stable vitals HPI General Date/Time Provider Initiated Documentation: 05/08/23 08:29. HPI Narrative: This 28-year-old female known to this facility presents with report of diarrhea, nausea, vomiting. She had a close contact that had similar symptoms 3 days ago. Denies any fever or chills. Has cramping in her abdomen. Denies any additional complaints at this time. Denies any blood in vomitus or stool. Denies any chance of . Denies any recent antibiotic use or exotic travel. Related Data Home Medications Medication Instructions Recorded Confirmed acetaminophen 500 mg tablet 1,000 mg PO PRN PRN 10/30/19 05/08/23 labetalol 100 mg tablet 50 mg PO QAM 09/25/21 05/08/23 melatonin 3 mg tablet 5 mg PO HS 09/25/21 05/08/23 ondansetron 4 mg disintegrating 4 mg PO Q8H PRN #14 tabs 10/28/22 05/08/23 tablet pantoprazole 40 mg tablet,delayed 40 mg PO QAM 11/22/22 05/08/23 release norethindrone (contraceptive) 0.35 0.35 mg PO DAILY #84 tabs 02/02/23 05/08/23 mg tablet (Carla) clonidine HCl 0.2 mg tablet 0.2 mg PO QHS 02/15/23 05/08/23 albuterol sulfate 90 mcg/actuation 2 puff inhalation Q6H PRN 03/24/23 05/08/23 aerosol inhaler (Ventolin HFA) buspirone 7.5 mg tablet 7.5 mg PO BID 03/24/23 05/08/23 docusate sodium 100 mg capsule 100 mg PO DAILY 03/24/23 05/08/23 ergocalciferol (vitamin D2) 1,250 1,250 mcg PO QWEEK 03/24/23 05/08/23 mcg (50,000 unit) capsule floradix iron 1 tab PO DAILY 03/24/23 05/08/23 lidocaine 4 % topical patch, kit 1 ea topical PRN PRN 03/24/23 05/08/23 with alcohol pads quetiapine 25 mg tablet 25 mg PO BID 03/24/23 05/08/23 hyoscyamine sulfate 0.125 mg 0.125 mg PO BID-QID PRN #10 tabs 05/08/23 tablet (Levsin) ondansetron 4 mg disintegrating 4 mg PO Q8H PRN 5 days #10 tabs 05/08/23 tablet Previous Rx's Medication Instructions Recorded ondansetron 4 mg disintegrating 4 mg PO Q8H PRN #14 tabs 10/28/22 tablet norethindrone (contraceptive) 0.35 0.35 mg PO DAILY #84 tabs 02/02/23 mg tablet (Carla) hyoscyamine sulfate 0.125 mg 0.125 mg PO BID-QID PRN #10 tabs 05/08/23 tablet (Levsin) ondansetron 4 mg disintegrating 4 mg PO Q8H PRN 5 days #10 tabs 05/08/23 tablet Allergies Allergy/AdvReac Type Severity Reaction Status Date / Time fluticasone Allergy Severe unknown Verified 05/08/23 08:59 [From Flovent HFA] fluoxetine Allergy Intermediate Verified 05/08/23 08:59 ibuprofen Allergy Intermediate vomiting Verified 05/08/23 08:59 lisinopril Allergy Intermediate unknown Verified 05/08/23 08:59 naproxen [From Aleve] Allergy Intermediate vomiting Verified 05/08/23 08:59 paroxetine HCl [From Paxil] Allergy Intermediate Hives Verified 05/08/23 08:59 risperidone [From Risperdal] Allergy Intermediate Hives Verified 05/08/23 08:59 sertraline Allergy Intermediate Verified 05/08/23 08:59 NSAIDS (Non-Steroidal Allergy Due to Verified 05/08/23 08:59 Anti-Inflamma prior kidney damage acetaminophen AdvReac Nausea Unverified 05/08/23 08:59 amoxicillin AdvReac Nausea Verified 05/08/23 08:59 dark sodas Allergy Severe Uncoded 05/08/23 08:59 seafood Allergy Intermediate unknown Uncoded 05/08/23 08:59 enviornmental Allergy Mild sneezing Uncoded 05/08/23 08:59 General Stated Complaint: Nausea/Vomit/Diar MARY KAY: 3 PFSH All Active Problems (Updated 05/08/23 @ 09:31 by HARRISON Nava) Mesenteric adenitis (Acute) Diarrhea (Acute) Nausea & vomiting (Acute) Nicotine dependence (Acute) Contraception, generic surveillance (Acute) COVID (Acute) Hyperplastic colon polyp (Acute) Rectal polyp (Acute) Chronic kidney disease, stage 1 (Chronic 12/31/16) from renal infection as a child elevated BP resulting 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 Patient is using the Depo-Provera for menstrual cycle control. Depression (12/31/16) Drug abuse, episodic use Dysuria Family history of colon cancer Fatigue Generalized headaches (12/31/16) Hemolytic uremic syndrome History of allergic reaction History of mastoiditis Hypertrophy of tonsils and adenoids IBS (irritable bowel syndrome) Illiteracy Per caregiver she is able to read and write, she needs assitance with comprehension of more complex words. Jaw pain Mesenteric lymphadenitis Oppositional defiant disorder Otalgia, right ear Overactive bladder (02/09/18) Pain, dental PTSD (post-traumatic stress disorder) Rash, skin RBC microcytosis Sleep disturbance Steatosis of liver SASHA (stress urinary incontinence, female) Suicidal ideation TMJ tenderness, left Vitamin D deficiency Surgical History History of colonoscopy (~06/2022) History of kidney surgery Hx of tooth extraction Social History Smoking/Tobacco Use Status: Former Tobacco Use Quit Date: 11/27/22 Smoking risk assessment performed?: Yes Alcohol Intake: former Drug use: Occasionally Substance use type: marijuana Details: [facility] Housing: house Sexually active: Yes (female partner only now(May 2022). Has never had intercourse) Do you think of yourself as: lesbian/cash/homosexual What is your relationship status?: never Panel score (0-1 are the most socially isolated patients): 0 Do you feel safe at home: Yes Do you feel safe in your relationship?: Yes Additional Social history: Grandmother recently Female Reproductive History Menstrual control method: progesterone injection History History 0 Para Hx # Term Pregnancies Multiple births Hx # Pregnancies Ectopic pregnancies AB induced Hx Number of Living Children AB spontaneous Course Vital Signs Vital signs: Vital Signs Temperature 36.5 C 05/08/23 08:24 Pulse 99 H 05/08/23 08:24 Respiratory Rate 16 05/08/23 08:24 Blood Pressure 137/72 05/08/23 08:24 Pulse Oximetry 99 05/08/23 08:24 Temperature 36.5 C 05/08/23 08:24 Temperature Source Temporal Artery Scan 05/08/23 08:24 Pulse 99 H 05/08/23 08:24 Respiratory Rate 16 05/08/23 08:24 Respiratory Effort Normal 05/08/23 08:26 Blood Pressure 137/72 05/08/23 08:24 Pulse Oximetry 99 05/08/23 08:24 Oxygen Delivery Method Room Air 05/08/23 08:24 Oxygen Flow Rate 0 05/08/23 08:24
== END 2023-05-08 09:37 | disposition home or self-care (01) ==
PROVIDERS: Emergency Provider Physician Assistant; PCP Nurse Practitioner Family
DX: R11.2 Nausea with vomiting, unspecified (principal); R19.7 Diarrhea, unspecified
CPT/HCPCS: 96372; 99284

== ENCOUNTER 2023-05-19 15:17 | Outpatient (REF) | payer MEDICAID, SELFPAY ==
[2023-05-19 19:27] LABS: Bilirubin Negative (Negative); Blood Negative (Negative); Clarity Clear (Clear); Glucose Negative (Negative); Ketones Negative (Negative); Leukocyte Esterase Negative (Negative); Nitrite Negative (Negative); Specific Gravity 1.025 (1.005-1.025); Urobilinogen 0.2 mg/dL (Up to 0.2)
[2023-05-19 19:39] LABS: Bacteria Negative HPF (Negative); C & S Indicated? No; Casts Negative LPF (Negative); Crystals Negative HPF (Negative); Epithelial Cells Few HPF (Negative); Mucus Negative (Negative); RBC 0-2 HPF (0-2); WBC 0-2 HPF (0-5)
== END 2023-05-19 15:18 | disposition home or self-care (01) ==
LOC: NCHCN 15:17
PROVIDERS: PCP Nurse Practitioner Family; Visit Provider Nurse Practitioner Family
DX: N89.8 Other specified noninflammatory disorders of vagina (principal)
CPT/HCPCS: 81003; 81015; 87480; 87510; 87660

== ENCOUNTER 2023-06-18 08:01 | Emergency (ER) | payer MEDICAID, SELFPAY ==
[2023-06-18 08:05] VITALS: BP 154/96; PULSE 111; RESP 18; O2SAT 99
[2023-06-18 08:36] VITALS: RESP 20
--- NOTE | 2023-06-18 08:36 | ED.GENADUL_ITS ---
Discharge Plan Disposition Patient Disposition: Home Discharge Details Clinical Impression: URI (upper respiratory infection) Primary Care Provider: Niyah Serna ED Provider: Kenton Irene Home Meds and New Rx's Prescriptions: New benzonatate 200 mg capsule 200 mg PO TID PRN (Reason: cough) Qty: 14 0RF prednisone 20 mg tablet 40 mg PO DAILY Qty: 10 0RF ProAir RespiClick 90 mcg/actuation aerosol powdr breath activated 2 inh inhalation Q6H PRN (Reason: shortness of breath or wheezing) Qty: 1 0RF Continued melatonin 3 mg tablet 5 mg PO HS Rx Instructions: 1-2 tabs (3-6 mg) po at hs labetalol 100 mg tablet 50 mg PO QAM albuterol sulfate [Ventolin HFA] 90 mcg/actuation HFA aerosol inhaler 2 puff inhalation Q6H PRN ergocalciferol (vitamin D2) 1,250 mcg (50,000 unit) capsule 1,250 mcg PO QWEEK floradix iron 1 tab PO DAILY quetiapine 25 mg tablet 25 mg PO BID buspirone 7.5 mg tablet 7.5 mg PO BID docusate sodium 100 mg capsule 100 mg PO DAILY lidocaine 4 % kit 1 ea topical PRN PRN medroxyprogesterone 150 mg/mL syringe 150 mg IM [id number] Qty: 1 5RF pantoprazole 40 mg Tablet,Delayed Release (Dr/Ec) 40 mg PO QAM clonidine HCl 0.2 mg tablet 0.2 mg PO QHS Patient Comments: TAKE ONE TABLET BY MOUTH AT BEDTIME acetaminophen 500 mg Tablet 1,000 mg PO PRN PRN Patient Comments: cannot take hyoscyamine sulfate [Levsin] 0.125 mg tablet 0.125 mg PO BID-QID PRNQty: 10 0RF Discontinued ondansetron 4 mg tablet,disintegrating 4 mg PO Q8H PRNQty: 14 0RF Patient Comments: not taking Discharge Instructions Instructions: Upper Respiratory Infection (ED) Additional Instructions: Please stay well-hydrated and get plenty of rest during viral illness. You may continue to take [id number] cough and cold meds as directed on packaging. At this time I feel that your ear pain is due to a virus and that antibiotics will not help but if you have any significant worsening of symptoms or you do not see symptoms improving over the next 24 to 48 hours please start the antibiotic and take until gone. If not improving please follow-up with your primary care provider for reassessment or return to the emergency department for new or significant worsening symptoms Referrals: Niyah Serna [Primary Care Provider] - Medical Decision Making Patient presenting to the clinic for chief complaint of cold symptoms. Patient reports symptoms have been going on for the past 4 days. reports headache, sinus pressure, nasal congestion, right ear pain, and sore throat. Physical exam shows mild posterior pharynx and tonsillar erythema, right TM erythematous and slightly bulging but no effusion or purulence noted, otherwise clear lung sounds and otherwise unremarkable exam. Patient has no signs of meningitis, peritonsillar abscess, retropharyngeal abscess, Cory's angina, or life- threatening Airway infection. Patient was tested for flu COVID and strep and was negative. Given patient's history of asthma and chest tightness will put patient on steroids, inhaler, and Tessalon Perles. We will give a pocket prescription for her right ear but at this time I feel it is more viral than bacterial otherwise conservative management discussed along with follow-up and return precautions. After discussion of diagnosis and plan of care patient has no further needs, questions, or concerns and states clear understanding to return to the emergency department for any worsening symptoms. This documentation was generated using eToro dictation system, please disregard any oddities of phrase or misspellings. Of note at discharge by nurse patient refused the amoxicillin due to it causing some nausea and diarrhea. I informed patient that those are typical side effects but not allergic reaction. Patient was still concerned due to side effects so I informed patient that we would just hold off on any antibiotics as I do not feel that she emergently needs this and patient encouraged to follow-up with primary care or urgent care if not improving. HPI General Mode of arrival: ambulatory . Date/Time Provider Initiated Documentation: 06/18/23 08:11 . Limitations to Documentation: no limitations . Information obtained by: patient and RN notes reviewed . History of Present Illness 28 year old F presents to the emergency department with the chief complaint of Cough cold nasal congestion sore throat, described as moderate, Quality is described as aching, Patient started experiencing this day(s) (4) and it has been constant. No relieving factors improve symptom(s), No exacerbating factors reported . Patient did receive the following treatments prior to arrival, none Related Data Home Medications Medication Instructions Recorded Confirmed acetaminophen 500 mg tablet 1,000 mg PO PRN PRN 10/30/19 06/18/23 labetalol 100 mg tablet 50 mg PO QAM 09/25/21 06/18/23 melatonin 3 mg tablet 5 mg PO HS 09/25/21 06/18/23 pantoprazole 40 mg tablet,delayed 40 mg PO QAM 11/22/22 06/18/23 release clonidine HCl 0.2 mg tablet 0.2 mg PO QHS 02/15/23 06/18/23 albuterol sulfate 90 mcg/actuation 2 puff inhalation Q6H PRN 03/24/23 06/18/23 aerosol inhaler (Ventolin HFA) buspirone 7.5 mg tablet 7.5 mg PO BID 03/24/23 06/18/23 docusate sodium 100 mg capsule 100 mg PO DAILY 03/24/23 06/18/23 ergocalciferol (vitamin D2) 1,250 1,250 mcg PO QWEEK 03/24/23 06/18/23 mcg (50,000 unit) capsule floradix iron 1 tab PO DAILY 03/24/23 06/18/23 lidocaine 4 % topical patch, kit 1 ea topical PRN PRN 03/24/23 06/18/23 with alcohol pads quetiapine 25 mg tablet 25 mg PO BID 03/24/23 06/18/23 hyoscyamine sulfate 0.125 mg 0.125 mg PO BID-QID PRN #10 tabs 05/08/23 06/18/23 tablet (Levsin) medroxyprogesterone 150 mg/mL 150 mg IM [id number] #1 mL 05/30/23 06/18/23 intramuscular syringe albuterol sulfate 90 mcg/actuation 2 inh inhalation Q6H PRN shortness 06/18/23 breath activated powder inhaler of breath or wheezing #1 ea (ProAir RespiClick) benzonatate 200 mg capsule 200 mg PO TID PRN cough #14 caps 06/18/23 prednisone 20 mg tablet 40 mg PO DAILY #10 tabs 06/18/23 Previous Rx's Medication Instructions Recorded hyoscyamine sulfate 0.125 mg 0.125 mg PO BID-QID PRN #10 tabs 05/08/23 tablet (Levsin) medroxyprogesterone 150 mg/mL 150 mg IM [id number] #1 mL 05/30/23 intramuscular syringe albuterol sulfate 90 mcg/actuation 2 inh inhalation Q6H PRN shortness 06/18/23 breath activated powder inhaler of breath or wheezing #1 ea (ProAir RespiClick) benzonatate 200 mg capsule 200 mg PO TID PRN cough #14 caps 06/18/23 prednisone 20 mg tablet 40 mg PO DAILY #10 tabs 06/18/23 Allergies Allergy/AdvReac Type Severity Reaction Status Date / Time fluticasone Allergy Severe unknown Verified 06/18/23 08:10 [From Flovent HFA] fluoxetine Allergy Intermediate Verified 06/18/23 08:10 ibuprofen Allergy Intermediate vomiting Verified 06/18/23 08:10 lisinopril Allergy Intermediate unknown Verified 06/18/23 08:10 naproxen [From Aleve] Allergy Intermediate vomiting Verified 06/18/23 08:10 paroxetine HCl [From Paxil] Allergy Intermediate Hives Verified 06/18/23 08:10 risperidone [From Risperdal] Allergy Intermediate Hives Verified 06/18/23 08:10 sertraline Allergy Intermediate Verified 06/18/23 08:10 NSAIDS (Non-Steroidal Allergy Due to Verified 06/18/23 08:10 Anti-Inflamma prior kidney damage acetaminophen AdvReac Nausea Unverified 06/18/23 08:10 amoxicillin AdvReac Nausea Verified 06/18/23 08:10 dark sodas Allergy Severe Uncoded 06/18/23 08:10 seafood Allergy Intermediate unknown Uncoded 06/18/23 08:10 enviornmental Allergy Mild sneezing Uncoded 06/18/23 08:10 General Stated Complaint: GenMedical MARY KAY: 4 Review of Systems Constitutional Constitutional: Reports body ache(s), Reports chills, Reports fever(s), Reports headache(s) and Reports malaise Eyes Eyes: Denies eye discharge ENT Ears, Nose, Mouth, and Throat: Reports as per HPI, Denies ear discharge, Reports otalgia, Reports headache(s), Reports nasal congestion, Reports nasal discharge, Denies neck pain, Reports sinus pressure, Reports sore throat and Denies throat swelling Cardiovascular Cardiovascular: Denies chest pain and Denies dyspnea Respiratory Respiratory: Reports cough and Denies dyspnea Musculoskeletal Musculoskeletal: Denies joint swelling and Denies neck pain Integumentary/Breasts Skin/Breast: Denies rash Neurologic Neurologic: Reports headache(s) Allergic/Immunologic Allergic/Immunologic: Denies throat swelling PFSH All Active Problems (Updated 06/18/23 @ 08:40 by Kenton Irene NP) URI (upper respiratory infection) (Acute) Encounter for Depo-Provera contraception (Acute) Since 2017. 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 Patient is using the Depo- Provera for menstrual cycle control. Depression (12/31/16) Drug abuse, episodic use Dysuria Family history of colon cancer Fatigue Generalized headaches (12/31/16) Hemolytic uremic syndrome History of allergic reaction History of mastoiditis Hypertrophy of tonsils and adenoids IBS (irritable bowel syndrome) Illiteracy Per caregiver she is able to read and write, she needs assitance with comprehension of more complex words. Jaw pain Mesenteric lymphadenitis Oppositional defiant disorder Otalgia, right ear Overactive bladder (02/09/18) Pain, dental PTSD (post-traumatic stress disorder) Rash, skin RBC microcytosis Sleep disturbance Steatosis of liver SASHA (stress urinary incontinence, female) Suicidal ideation TMJ tenderness, left Vitamin D deficiency Surgical History History of colonoscopy (~06/2022) History of kidney surgery Hx of tooth extraction Social History Smoking/Tobacco Use Status: Former Tobacco Use Quit Date: 11/27/22 Smoking risk assessment performed?: Yes Alcohol Intake: former Drug use: Occasionally Substance use type: marijuana Details: CBD Housing: house Sexually active: Yes (female partner only now(May 2022). Has never had intercourse) Do you think of yourself as: lesbian/cash/homosexual What is your relationship status?: never Panel score (0-1 are the most socially isolated patients): 0 Do you feel safe at home: Yes Do you feel safe in your relationship?: Yes Additional Social history: Grandmother recently Female Reproductive History Menstrual control method: progesterone injection History History 0 Para Hx # Term Pregnancies Multiple births Hx # Pregnancies Ectopic pregnancies AB induced Hx Number of Living Children AB spontaneous Exam Const General: cooperative, comfortable and no acute distress Orientation: alert and awake HENMT Head: normal to inspection, normocephalic and atraumatic Ears: hearing grossly normal bilaterally, TM normal on the left and TM abnormal bulging on the right and erythematous on the right General nose exam: external nose normal Face and sinus: no erythema Mouth: oral mucosae normal, no drooling, no muffled voice and no trismus Throat: posterior oropharynx normal Neck Neck: normal visual inspection, full ROM, no lymphadenopathy, no meningeal signs, trachea midline and supple Resp Effort & Inspection: normal respiratory effort, able to speak in complete sentences and cough Quality of cough: dry Auscultation: clear to auscultation bilaterally Cardio Rate: regular rate Rhythm: regular rhythm Heart Sounds: S1 normal, S2 normal, normal S1 and S2, no click, no gallops, no murmurs and no rubs Skin General skin exam: no rashes or lesions noted and dry skin (warm) Neuro General: patient alert, patient awake, patient oriented x3, gait normal and moves all extremities Cognition: normal cognition Speech: speech normal Course Vital Signs Vital signs: Vital Signs Pulse 111 H 06/18/23 08:05 Respiratory Rate 18 06/18/23 08:05 Blood Pressure 154/96 H 06/18/23 08:05 Pulse Oximetry 99 06/18/23 08:05 Pulse 111 H 06/18/23 08:05 Respiratory Rate 18 06/18/23 08:05 Respiratory Effort Short of Breath 06/18/23 08:09 Blood Pressure 154/96 H 06/18/23 08:05 Blood Pressure Position Sitting 06/18/23 08:05 Pulse Oximetry 99 06/18/23 08:05 Oxygen Delivery Method Room Air 06/18/23 08:05 Oxygen Flow Rate 0 06/18/23 08:05 Pain Level 6 06/18/23 08:05 Lab/Test Results Lab/Test Results: 06/18/23 08:06 Tonsil - Not Specified Group A Streptococcus Culture - Pending POC Strep Test-ROHIT(Rapid) Start: 06/18/23 08:23 Freq: Status: Active Protocol: Document 06/18/23 08:23 AJITH (Rec: 06/18/23 08:23 [id number]) Strep test-ROHIT(Rapid)-POC POC-Strep test-ROHIT (Rapid) Negative POC-Strep test-ROHIT (Rapid) Negative
== END 2023-06-18 09:11 | disposition home or self-care (01) ==
PROVIDERS: Emergency Provider Nurse Practitioner Family; PCP Nurse Practitioner Family
DX: J06.9 Acute upper respiratory infection, unspecified (principal); R06.02 Shortness of breath; R05.9 Cough, unspecified
CPT/HCPCS: 87426; 87880; 99283; 87081; 99284

== ENCOUNTER 2023-07-05 10:07 | Outpatient (REF) | payer MEDICAID, SELFPAY ==
[2023-07-05 15:45] LABS: Abs Immature Grans 0.03 10^3/uL (0.0-0.06); Absolute Basophil Count 0.06 10^3/uL (0.0-0.2); Absolute Eosinophil Count 0.16 10^3/uL (0.0-0.7); Absolute Lymphocyte Count 1.84 10^3/uL (1.2-3.4); Absolute Neutrophil Count 5.46 10^3/uL (1.2-6.7); Basophils % 0.7; HCT 38.9 % (36.0-46.0); HGB 12.4 g/dL (11.2-15.7); Immature Grans % 0.4; Lymphocytes % 22.6; MCH 24.1 pg (27.0-33.0); MCHC 31.9 % (32.0-36.0); MCV 76 fL (80-95); Monocytes % 7.4; Neutrophils % 66.9; RBC 5.14 10^6/uL (3.93-5.22); RDW 15.2 % (11.7-14.6); RDW-SD 41.3 fL; WBC 8.15 10^3/uL (4.4-10.8)
[2023-07-05 16:24] LABS: ALT 42 U/L (14-59); AST 26 U/L (15-37); Albumin 3.5 g/dL (3.4-5.0); Alkaline Phosphatase 108 U/L (46-116); Anion Gap 12.4 mmol/L (3-11); BUN 9 mg/dL (7-18); Bilirubin, Total 0.7 mg/dL (0.2-1.0); CO2 20.6 mmol/L (21.0-32.0); CREATININE 0.8 mg/dL (0.55-1.02); Calcium 8.7 mg/dL (8.5-10.1); Chloride 100 mmol/L (98-107); Estimated GFR 104.15 (mL/min/1.73m2); Glucose 389 mg/dL (74-106); Potassium 4.5 mmol/L (3.5-5.1); Sodium 133 mmol/L (136-145); Total Protein 6.8 g/dL (6.4-8.2)
[2023-07-05 16:37] LABS: Diff Comment PLT Morph Reviewed
[2023-07-05 16:39] LABS: RBC Morphology Normal
[2023-07-06 10:36] LABS: Lyme Ab w Rflx to Lyme Confirm Negative (Negative)
[2023-07-08 23:42] LABS: Anaplasma phagocytophilum Negative (Negative); B. miyamotoi PCR Negative (Negative); Babesia divergens/MO-1 Negative (Negative); Babesia duncani Negative (Negative); Babesia microti Negative (Negative); Ehrlichia chaffeensis Negative (Negative); Ehrlichia ewingii/canis Negative (Negative); Ehrlichia muris eauclairensis Negative (Negative)
== END 2023-07-05 10:08 | disposition home or self-care (01) ==
LOC: LBN 10:07
PROVIDERS: PCP Nurse Practitioner Family; Visit Provider Nurse Practitioner Family
DX: T14.8XXA Other injury of unspecified body region, initial encounter (principal); W57.XXXA Bitten or stung by nonvenomous insect and other nonvenomous arthropods, initial encounter; R79.89 Other specified abnormal findings of blood chemistry
CPT/HCPCS: 80053; 87798; 85025; 86618

== ENCOUNTER 2023-07-11 17:41 | Emergency (ER) | payer MEDICAID, SELFPAY ==
[2023-07-11 17:42] VITALS: BP 155/96; PULSE 124; TEMP 37.3; O2SAT 97
[2023-07-11 18:03] LABS: Source Nasal/Nares
[2023-07-11 18:14] LABS: Bilirubin Negative (Negative); Blood Trace-intact (Negative); Clarity Sl Cloudy (Clear); Glucose 500 mg/dL (Negative); Ketones Negative (Negative); Leukocyte Esterase Negative (Negative); Nitrite Negative (Negative); Urobilinogen 0.2 mg/dL (Up to 0.2); pH 6.5 (5-8)
[2023-07-11 18:26] LABS: Epithelial Cells Few HPF (Negative); Other Cells Rare Yeast (Negative); WBC 0-2 HPF (0-5)
[2023-07-11 18:27] LABS: Bacteria Rare HPF (Negative); C & S Indicated? Yes; Crystals Negative HPF (Negative); Mucus Negative (Negative)
[2023-07-11 18:37] LABS: COVID-19 PCR Negative (Negative)
--- NOTE | 2023-07-11 18:53 | W.ED.GENAD ---
Discharge Plan Disposition Patient Disposition: Home Condition: Stable Discharge Details Clinical Impression: Hyperglycemia, Yeast infection of the vagina, URI (upper respiratory infection), Chest discomfort Primary Care Provider: Niyah Serna ED Provider: Dinesh Solis Home Meds and New Rx's Prescriptions: New fluconazole 150 mg tablet 150 mg PO Q3D Qty: 1 0RF Rx Instructions: may take dose on 07/14/23 if symptoms persist metformin 500 mg tablet 500 mg PO BIDWMEAL Qty: 60 0RF Continued melatonin 3 mg tablet 5 mg PO HS Rx Instructions: 1-2 tabs (3-6 mg) po at hs labetalol 100 mg tablet 50 mg PO QAM medroxyprogesterone 150 mg/mL syringe 150 mg IM [id number] Qty: 1 5RF albuterol sulfate [Ventolin HFA] 90 mcg/actuation HFA aerosol inhaler 2 puff inhalation Q6H PRN ergocalciferol (vitamin D2) 1,250 mcg (50,000 unit) capsule 1,250 mcg PO QWEEK floradix iron 1 tab PO DAILY quetiapine 25 mg tablet 25 mg PO BID buspirone 7.5 mg tablet 7.5 mg PO BID docusate sodium 100 mg capsule 100 mg PO DAILY lidocaine 4 % kit 1 ea topical PRN PRN pantoprazole 40 mg Tablet,Delayed Release (Dr/Ec) 40 mg PO QAM clonidine HCl 0.2 mg tablet 0.2 mg PO QHS Patient Comments: TAKE ONE TABLET BY MOUTH AT BEDTIME prednisone 20 mg tablet 40 mg PO DAILY Qty: 10 0RF ProAir RespiClick 90 mcg/actuation aerosol powdr breath activated 2 inh inhalation Q6H PRN (Reason: shortness of breath or wheezing) Qty: 1 0RF hyoscyamine sulfate [Levsin] 0.125 mg tablet 0.125 mg PO BID-QID PRNQty: 10 0RF Discontinued benzonatate 200 mg capsule 200 mg PO TID PRN (Reason: cough) Qty: 14 0RF Patient Comments: PT reports that she has run out of this drug and that she does not have a prescription for more. acetaminophen 500 mg Tablet 1,000 mg PO PRN PRN Patient Comments: cannot take Discharge Instructions Instructions: Chest Pain (ED), Upper Respiratory Infection (ED), Yeast Infection (ED) Additional Instructions: Your blood sugar was elevated today at 274. You have glucose in your urine. We have initiated treatment with metformin. Please call your doctor tomorrow morning to discuss ongoing treatment. You were given the initial dose of fluconazole to treat yeast infection here in the emergency department. You may need a repeat dose in 3 days if symptoms persist. Referrals: Niyah Serna [Primary Care Provider] - Medical Decision Making 1910 -- 28-year-old female with multiple medical problems here with vaginal inflammation over the past 2 weeks and dysuria with foul-smelling urine over the past week. Patient also notes rhinorrhea with cough over the past few days. Patient is afebrile. She is tachycardic. Patient saturating well in no respiratory distress. Patient was initially given oral fluid rehydration. Rapid COVID test negative. Patient remained tachycardic and had notable glucosuria. Will place IV and check chemistry to assess for hyperglycemia and anion gap acidosis. Urinalysis is otherwise concerning for UTI. I will initiate treatment with fluconazole for yeast infection. -- Labs reviewed and significant hyperglycemia noted. No anion gap acidosis. We will send hemoglobin A1c. Given glucose in your urine elevated blood sugar and yeast infection, I will initiate treatment with metformin. Primary care physician is not available to discuss case at this time. I will have her call her PCP first thing tomorrow morning to discuss ongoing management. 2100 --patient is receiving IV fluids and started to complain of pleuritic chest tightness anteriorly. Screening EKG was reviewed and interpreted by me: Sinus tachycardia 108 bpm, nondiagnostic. No STEMI. Plan to send troponin and consider acute pulmonary embolism. Will obtain CT of the chest. 2244 --CT of the chest was interpreted by radiology: No acute findings. Troponin negative. Patient notes symptoms completely resolved. Requesting discharge. Plan for discharge with outpatient follow-up with PCP as above. Disposition decision was made weighing the risks and benefits of hospitalization versus outpatient treatment, the risk for further decompensation, and the patient's wishes. The patient was stable and requested discharge. Prior to discharge, my usual and customary return precautions were reviewed with the patient - this included follow-up instructions and reason to return to the emergency department if condition worsens, does not improve as expected, or other new concerns arise. Lab Data Lab results reviewed: Yes I reviewed the patient's lab results. Labs: 07/11/23 17:51 Urine - Reflex from Ua Urine Culture - Pending Laboratory Tests Range/Units 07/11/23 07/11/23 07/11/23 17:41 17:51 19:05 Sodium (136-145) mmol/L 133 L Potassium (3.5-5.1) mmol/L 3.3 L Chloride (98-107) mmol/L 97 L Carbon Dioxide (21.0-32.0) mmol/L 23.2 Anion Gap (3-11) mmol/L 12.8 H BUN (7-18) mg/dL 8 Creatinine (0.55-1.02) mg/dL 0.7 Est GFR (CKD-EPI 2020) (mL/min/1.73m2) 122.25 Glucose (74-106) mg/dL 270 H Calcium (8.5-10.1) mg/dL 9.2 Total Bilirubin (0.2-1.0) mg/dL 0.5 AST (15-37) U/L 15 ALT (14-59) U/L 35 Alkaline Phosphatase (46-116) U/L 127 H Total Protein (6.4-8.2) g/dL 7.9 Albumin (3.4-5.0) g/dL 3.9 Urine Color (Yellow) Yellow Urine Clarity (Clear) Sl Cloudy Urine pH (5-8) 6.5 Ur Specific [place] (1.005-1.025) 1.020 Urine Protein (Negative) mg/dL 30 H Urine Ketones (Negative) mg/dL Negative Urine Blood (Negative) Trace-intact H Urine Nitrite (Negative) Negative Urine Bilirubin (Negative) Negative Urine Urobilinogen (Up to 0.2) mg/dL 0.2 Ur Leukocyte Esterase (Negative) Negative Urine RBC (0-2) HPF 5-10 H Urine WBC (0-5) HPF 0-2 Ur Epithelial Cells (Negative) HPF Few Urine Crystals (Negative) HPF Negative Urine Bacteria (Negative) HPF Rare Urine Mucus (Negative) Negative Urine Other (Negative) Rare Yeast Ur Culture Indicated? Yes Urine Glucose (Negative) mg/dL 500 H COVID-19 Source Nasal/Nares SARS-CoV-2 (PCR) (Negative) Negative HPI General Mode of arrival: ambulatory. Date/Time Provider Initiated Documentation: 07/11/23 17:44. Limitations to Documentation: no limitations. Information obtained by: patient. HPI Narrative: 28-year-old female presents with multiple complaints. Patient notes she has had vaginal irritation for the past 2 weeks. She thinks it feels like a yeast infection. She also notes dysuria and foul-smelling urine over the past week. She has no associated fever. She does note over the past few days she has had runny nose and intermittent cough. She has no associated abdominal pain. No flank pain. Related Data Home Medications Medication Instructions Recorded Confirmed labetalol 100 mg tablet 50 mg PO QAM 09/25/21 07/11/23 melatonin 3 mg tablet 5 mg PO HS 09/25/21 07/11/23 pantoprazole 40 mg tablet,delayed 40 mg PO QAM 11/22/22 07/11/23 release clonidine HCl 0.2 mg tablet 0.2 mg PO QHS 02/15/23 07/11/23 albuterol sulfate 90 mcg/actuation 2 puff inhalation Q6H PRN 03/24/23 07/11/23 aerosol inhaler (Ventolin HFA) buspirone 7.5 mg tablet 7.5 mg PO BID 03/24/23 07/11/23 docusate sodium 100 mg capsule 100 mg PO DAILY 03/24/23 07/11/23 ergocalciferol (vitamin D2) 1,250 1,250 mcg PO QWEEK 03/24/23 07/11/23 mcg (50,000 unit) capsule floradix iron 1 tab PO DAILY 03/24/23 07/11/23 lidocaine 4 % topical patch, kit 1 ea topical PRN PRN 03/24/23 07/11/23 with alcohol pads quetiapine 25 mg tablet 25 mg PO BID 03/24/23 07/11/23 hyoscyamine sulfate 0.125 mg 0.125 mg PO BID-QID PRN #10 tabs 05/08/23 07/11/23 tablet (Levsin) albuterol sulfate 90 mcg/actuation 2 inh inhalation Q6H PRN shortness 06/18/23 07/11/23 breath activated powder inhaler of breath or wheezing #1 ea (ProAir RespiClick) prednisone 20 mg tablet 40 mg PO DAILY #10 tabs 06/18/23 07/11/23 medroxyprogesterone 150 mg/mL 150 mg IM [id number] #1 mL 06/27/23 07/11/23 intramuscular syringe fluconazole 150 mg tablet 150 mg PO Q3D #1 tab 07/11/23 metformin 500 mg tablet 500 mg PO BIDWMEAL #60 tabs 07/11/23 Previous Rx's Medication Instructions Recorded hyoscyamine sulfate 0.125 mg 0.125 mg PO BID-QID PRN #10 tabs 05/08/23 tablet (Levsin) albuterol sulfate 90 mcg/actuation 2 inh inhalation Q6H PRN shortness 06/18/23 breath activated powder inhaler of breath or wheezing #1 ea (ProAir RespiClick) prednisone 20 mg tablet 40 mg PO DAILY #10 tabs 06/18/23 medroxyprogesterone 150 mg/mL 150 mg IM [id number] #1 mL 06/27/23 intramuscular syringe fluconazole 150 mg tablet 150 mg PO Q3D #1 tab 07/11/23 metformin 500 mg tablet 500 mg PO BIDWMEAL #60 tabs 07/11/23 Allergies Allergy/AdvReac Type Severity Reaction Status Date / Time fluticasone Allergy Severe unknown Verified 06/18/23 08:10 [From Flovent HFA] fluoxetine Allergy Intermediate Verified 06/18/23 08:10 ibuprofen Allergy Intermediate vomiting Verified 06/18/23 08:10 lisinopril Allergy Intermediate unknown Verified 06/18/23 08:10 naproxen [From Aleve] Allergy Intermediate vomiting Verified 06/18/23 08:10 paroxetine HCl [From Paxil] Allergy Intermediate Hives Verified 06/18/23 08:10 risperidone [From Risperdal] Allergy Intermediate Hives Verified 06/18/23 08:10 sertraline Allergy Intermediate Verified 06/18/23 08:10 NSAIDS (Non-Steroidal Allergy Due to Verified 06/18/23 08:10 Anti-Inflamma prior kidney damage acetaminophen AdvReac Nausea Unverified 06/18/23 08:10 amoxicillin AdvReac Nausea Verified 06/18/23 08:10 dark sodas Allergy Severe Uncoded 06/18/23 08:10 seafood Allergy Intermediate unknown Uncoded 06/18/23 08:10 enviornmental Allergy Mild sneezing Uncoded 06/18/23 08:10 General Stated Complaint: Urinary MARY KAY: 3 Review of Systems All systems reviewed & are unremarkable except as noted in HPI and below Constitutional Constitutional: Denies body ache(s) and Denies fever(s) Genitourinary Genitourinary: Reports as per HPI PFSH All Active Problems (Updated 07/11/23 @ 22:50 by Dinesh Solis MD) Hyperglycemia (Acute) Yeast infection of the vagina (Acute) URI (upper respiratory infection) (Acute) Chest discomfort (Acute) URI (upper respiratory infection) (Acute) Encounter for Depo-Provera contraception (Acute) Since 2017. Nicotine dependence (Acute) Contraception, generic surveillance (Acute) Hx of OCPs, Nexplanon, DepoProvera. 02/2023 Norethindrone 0.35mg till 05/2023. Resumed DepoProvera. 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 Patient is using the Depo-Provera for menstrual cycle control. Depression (12/31/16) Drug abuse, episodic use Dysuria Family history of colon cancer Fatigue Generalized headaches (12/31/16) Hemolytic uremic syndrome History of allergic reaction History of mastoiditis Hypertrophy of tonsils and adenoids IBS (irritable bowel syndrome) Illiteracy Per caregiver she is able to read and write, she needs assitance with comprehension of more complex words. Jaw pain Mesenteric lymphadenitis Oppositional defiant disorder Otalgia, right ear Overactive bladder (02/09/18) Pain, dental PTSD (post-traumatic stress disorder) Rash, skin RBC microcytosis Sleep disturbance Steatosis of liver SASHA (stress urinary incontinence, female) Suicidal ideation TMJ tenderness, left Vitamin D deficiency Surgical History History of colonoscopy (~06/2022) History of kidney surgery Hx of tooth extraction Social History Smoking/Tobacco Use Status: Former Tobacco Use Quit Date: 11/27/22 Smoking risk assessment performed?: Yes Alcohol Intake: former Drug use: Occasionally Substance use type: marijuana Details: CBD Housing: house Sexually active: Yes (female partner only now(May 2022). Has never had intercourse) Do you think of yourself as: lesbian/cash/homosexual What is your relationship status?: never Panel score (0-1 are the most socially isolated patients): 0 Do you feel safe at home: Yes Do you feel safe in your relationship?: Yes Additional Social history: Grandmother recently Female Reproductive History Menstrual control method: progesterone injection History History 0 Para Hx # Term Pregnancies Multiple births Hx # Pregnancies Ectopic pregnancies AB induced Hx Number of Living Children AB spontaneous Exam Const General: cooperative and no acute distress HENMT Mouth: moist mucous membranes Eyes Conjunctivae: normal conjunctivae Sclera: normal sclerae Neck Neck: trachea midline and supple Resp Auscultation: clear to auscultation bilaterally, no rales, no rhonchi and no wheezes Cardio Rate: regular rate and not tachycardic Rhythm: regular rhythm GI Palpation: soft, not firm, no guarding, no masses, not rigid and nontender External Female Exam: erythema, externally tender and external swelling Other: External vaginal exam was performed with female process safety engineering technologist cobol developer present. External exam consistent with yeast infection. Patient extremely uncomfortable would not tolerate internal examination. Skin General skin exam: no rashes or lesions noted Neuro General: patient alert, patient awake and tone normal Course Vital Signs Vital signs: Vital Signs Temperature 37.3 C 07/11/23 17:42 Pulse 124 H 07/11/23 17:42 Blood Pressure 155/96 H 07/11/23 17:42 Pulse Oximetry 97 07/11/23 17:42 Temperature 37.3 C 07/11/23 17:42 Temperature Source Oral 07/11/23 17:42 Pulse 124 H 07/11/23 17:42 Respiratory Effort Normal 07/11/23 17:55 Blood Pressure 155/96 H 07/11/23 17:42 Blood Pressure Position Sitting 07/11/23 17:42 Pulse Oximetry 97 07/11/23 17:42 Oxygen Delivery Method Room Air 07/11/23 17:42 Oxygen Flow Rate 0 07/11/23 17:42 Pain Level 8 07/11/23 17:57 Lab/Test Results Lab/Test Results: 07/11/23 17:51 Urine - Reflex from Ua Urine Culture - Pending Laboratory Tests Range/Units 07/11/23 07/11/23 17:41 17:51 Urine Color (Yellow) Yellow Urine Clarity (Clear) Sl Cloudy Urine pH (5-8) 6.5 Ur Specific [place] (1.005-1.025) 1.020 Urine Protein (Negative) mg/dL 30 H Urine Ketones (Negative) mg/dL Negative Urine Blood (Negative) Trace-intact H Urine Nitrite (Negative) Negative Urine Bilirubin (Negative) Negative Urine Urobilinogen (Up to 0.2) mg/dL 0.2 Ur Leukocyte Esterase (Negative) Negative Urine RBC (0-2) HPF 5-10 H Urine WBC (0-5) HPF 0-2 Ur Epithelial Cells (Negative) HPF Few Urine Crystals (Negative) HPF Negative Urine Bacteria (Negative) HPF Rare Urine Mucus (Negative) Negative Urine Other (Negative) Rare Yeast Ur Culture Indicated? Yes Urine Glucose (Negative) mg/dL 500 H COVID-19 Source Nasal/Nares SARS-CoV-2 (PCR) (Negative) Negative
[2023-07-11] MEDS: Lactated Ringers 1,000 ML 1000 ML IV (19:10)
[2023-07-11 19:13] LABS: Abs Immature Grans 0.03 10^3/uL (0.0-0.06); Absolute Basophil Count 0.03 10^3/uL (0.0-0.2); Absolute Eosinophil Count 0.28 10^3/uL (0.0-0.7); Absolute Lymphocyte Count 1.58 10^3/uL (1.2-3.4); Absolute Monocyte Count 0.89 10^3/uL (0.1-0.8); Absolute Neutrophil Count 6.62 10^3/uL (1.2-6.7); Basophils % 0.3; HCT 40.3 % (36.0-46.0); HGB 13.2 g/dL (11.2-15.7); Immature Grans % 0.3; Lymphocytes % 16.8; MCH 24.3 pg (27.0-33.0); MCHC 32.8 % (32.0-36.0); MCV 74 fL (80-95); Monocytes % 9.4; Neutrophils % 70.2; Platelet Count 224 10^3/uL (130-400); RBC 5.44 10^6/uL (3.93-5.22); RDW 15.4 % (11.7-14.6); RDW-SD 40.8 fL; WBC 9.43 10^3/uL (4.4-10.8)
[2023-07-11] MEDS: Fluconazole 150 MG TAB PO (19:24)
[2023-07-11 19:28] LABS: ALT 35 U/L (14-59); AST 15 U/L (15-37); Albumin 3.9 g/dL (3.4-5.0); Alkaline Phosphatase 127 U/L (46-116); Anion Gap 12.8 mmol/L (3-11); BUN 8 mg/dL (7-18); Bilirubin, Total 0.5 mg/dL (0.2-1.0); CO2 23.2 mmol/L (21.0-32.0); CREATININE 0.7 mg/dL (0.55-1.02); Calcium 9.2 mg/dL (8.5-10.1); Chloride 97 mmol/L (98-107); Estimated GFR 122.25 (mL/min/1.73m2); Glucose 270 mg/dL (74-106); Potassium 3.3 mmol/L (3.5-5.1); Sodium 133 mmol/L (136-145); Total Protein 7.9 g/dL (6.4-8.2)
[2023-07-11 19:42] LABS: Diff Comment RBC Morph Reviewed; Microcytosis 1+
[2023-07-11 20:08] VITALS: BP 155/91; PULSE 108; RESP 17; TEMP 36.7; O2SAT 97
[2023-07-11] MEDS: Potassium Chloride 20 MEQ TABCR PO (20:10)
[2023-07-11] MEDS: metFORMIN 500 MG TAB PO (20:10)
[2023-07-11 20:19] LABS: Hemoglobin A1C 8.7 % (<5.7)
--- NOTE | 2023-07-11 20:30 | RT.EKG_ITS ---
APPROVED REPORT Exam: Resting ECG Reason for Exam: reports chest tightness. Patient Location: E HR:108 bpm ECG Measurements Heart Rate 108 AXIS MO 139 P 37 QRSd 89 QRS 32 QT 331 T -16 QTc 444 Conclusion Sinus tachycardia...rate> 99
--- NOTE | 2023-07-11 21:00 | DI.CT_ITS ---
Exam(s) CT CHEST PE CTA EXAM: CT CHEST PE CTA CLINICAL HISTORY: chest pain. TECHNIQUE: Imaging Protocol: CT angiography of the chest was performed using pulmonary embolus laurie col. Multi planar reconstructions were performed. CONTRAST MATERIAL: Intravenous: Omnipaque 350 Contrast volume: 100 cc COMPARISON: CT CT ABDOMEN PELVIS W from 04/12/2023 FINDINGS: CHEST: PULMONARY ARTERIES: Less than optimal bolus timing with less than optimal visualization non central p ulmonary arteries. There are no intraluminal filling defects to suggest acute central pulmonary embo li. LUNGS: There are no infiltrates nor evidence of pulmonary infarction.. There are no pleural effusions . No pneumothorax MEDIASTINUM: There is no hilar nor mediastinal adenopathy. Visualized thyroid unremarkable. CARDIAC: Heart size is upper normal. There is no pericardial effusion.Caliber of the thoracic aorta is within normal limits. No evidence of dissection. There is no significant shift of the interventri cular septum. PARTIALLY VISUALIZED UPPERMOST ABDOMEN: No obvious findings OSSEOUS: No significant osseous lesions.No fractures evident. IMPRESSION: 1. No evidence of acute pulmonary emboli. No evidence of pulmonary infarction.No pleural effusions. No infiltrates 2. No evidence of aortic dissection. No pericardial effusion. 3. No significant osseous findings RADIATION DOSE DELIVERED: 455.94mGy.cm Total DLP DATA REPOSITORY: All CT scans at this facility are submitted to the National Radiology Data Registry (NRDR) Dose Index Registry (DIR) with the [employer] ([employer]). RADIATION OPTIMIZATION: All CT scans at this facility use at least one of these dose optimization te chniques: automated exposure control; mA and/or kV adjustment per patient size (includes targeted exa ms where dose is matched to clinical indication); or iterative reconstruction.
[2023-07-11 21:33] LABS: Troponin I < 50 ng/L (<or=60)
[2023-07-11] MEDS: Normal Saline - Diluent 50 ML VIAL IJ (21:56)
[2023-07-11] MEDS: Omnipaque 350 MG/ML 100 ML BTL IJ (21:57)
--- NOTE | 2023-07-11 22:41 | DI.VRAD_ITS ---
PROCEDURE INFORMATION: Exam: CTA Chest With Contrast Exam date and time: 07/11/2023 10:01 PM Age: 28 years old Clinical indication: Other: Chest pain TECHNIQUE: Imaging protocol: Computed tomographic angiography of the chest with contrast. Exam focused on the arteries. 3D rendering (Not supervised by radiologist): MIP and/or 3D reconstructed images were created by the technologist. Radiation optimization: All CT scans at this facility use at least one of these dose optimization techniques: automated exposure control; mA and/or kV adjustment per patient size (includes targeted exams where dose is matched to clinical indication); or iterative reconstruction. Contrast material: OMNI 350; Contrast volume: 100 ml; Contrast route: INTRAVENOUS (IV); COMPARISON: CT CHEST PE ABD PELVIS W 10/05/2022 9:01 PM FINDINGS: Pulmonary arteries: Normal. No pulmonary emboli. Aorta: Unremarkable. No aortic aneurysm. No aortic dissection. Lungs: Unremarkable. No consolidation. No masses. Pleural spaces: Unremarkable. No pneumothorax. No pleural effusion. Heart: Unremarkable. No cardiomegaly. No pericardial effusion. Mediastinal space: Mild soft tissue prominence in the anterior mediastinum compatible with residual thymic tissue. Lymph nodes: Unremarkable. No enlarged lymph nodes. Bones/joints: Unremarkable. No acute fracture. Soft tissues: Unremarkable. IMPRESSION: No acute findings. Dictated and Authenticated by: Jn Demarco MD. Ordering:MAKENZIE Montiel MD
[2023-07-11 22:55] VITALS: BP 142/70; PULSE 72; RESP 16; TEMP 36.8; O2SAT 97
== END 2023-07-11 22:55 | disposition home or self-care (01) ==
PROVIDERS: Emergency Provider Student in an Organized Health Care Education/Training Program; PCP Nurse Practitioner Family
DX: J06.9 Acute upper respiratory infection, unspecified (principal); E11.65 Type 2 diabetes mellitus with hyperglycemia; B37.31 Acute candidiasis of vulva and vagina; R07.89 Other chest pain; R00.0 Tachycardia, unspecified
CPT/HCPCS: 71275; 80053; 81025; 87426; 87635; 93005; 96360; 99285; 81003; 81015; 83036; 84484; 85025; 87086; 93010; 99284; J3490

== ENCOUNTER 2023-07-14 09:57 | Outpatient (REF) | payer MEDICAID, SELFPAY ==
[2023-07-14 17:21] LABS: Hemoglobin A1C 8.9 % (<5.7)
== END 2023-07-14 09:58 | disposition home or self-care (01) ==
LOC: NCHCN 09:57
PROVIDERS: PCP Nurse Practitioner Family; Visit Provider Nurse Practitioner Family
DX: R73.03 Prediabetes (principal)
CPT/HCPCS: 83036

== ENCOUNTER 2023-08-29 17:56 | Emergency (ER) | payer MEDICAID, SELFPAY ==
[2023-08-29 17:57] VITALS: BP 155/111; PULSE 119; RESP 20; TEMP 37.6; O2SAT 98
--- OUTSIDE RECORDS SUMMARY | 2023-08-29 18:03 | XMS_ITS | Continuity of Care Document ---
Author Name Unknown Organization Psych Address Unknown Care Team Providers Care Safe Expert Name Role Phone No Local PCP, No Local PCP Primary Care Physicia n Unavailable Encounter Date(s): 10/09/22 - 10/13/22 Psych [address], [place] [address] - Encounter Diagnosis ADHD(Discharge Diagnosis) - 10/10/22 Mild intellectual disability(Discharge Diagnosis) - 10/10/22 Other specified depressive episodes(Discharge Diagnosis) - 10/10/22 Oppositional defiant disorder(Discharge Diagnosis) - 10/10/22 Discharge Disposition: Home or Self Care Attending Physician: YANNI RANDLE MD Admitting Physician: YANNI RANDLE MD Allergies, Adverse Reactions, Alerts Substance Reaction Severity Status acetaminophen Nausea Mild Active amoxicillin Nausea Mild Active lisinopril Active Seafood Active polyethylene glycol 3350 Act armani diphenhydrAMINE Vomiting Mild Active NSAIDs HX kidney damage Active risperiDONE Hives Active PARoxetine Hives Active Fluticasone HFA Unknown Severe Active Assessment and Plan Extracted from: Title:Physician Progress Note - Psychiatric Auth or:Calixto Leung MD Date:10/12/22 The patient is currently nasima wing slow and gradual improvement, the symptoms of??depression/mood anxiety are subsiding gradually,??patient continues to feel sad, down,??anxious.?? Patient??is not willing to??accept??antidepressant, however??she is agreeable to go up on dose of Seroquel. ??Seroquel??does have property to treat??mood dysregulation as well as depressive symptoms related to mood disorders. ??We will increase the dose Seroquel from 25 mg twice daily to 50 mg twice daily.?? Patient continues to remain in need of inpatient hospitalization??for safety, stabilization and medication management. 1.??Other specified depressive episodes 2.??Oppositional defiant disorder 3.??ADHD 4.??Mild intellectual disability Orders: docusate, 100 mg = 1 cap(s), Cap, Oral, Daily PRN constipation, Start date 10/11/22 16:03:00 EST, Routine Inpatient albuterol inhaler, 2 puff(s), Inhaled, q4hr, PRN cetirizine, 10 mg= 1 tab(s), Oral, Daily cloNIDine, 0.2 mg= 1 tab(s), Oral, qHS Colace, 100 mg= 1 cap(s), Oral, Daily, PRN Fluarix Quadrivalent, 0.5 mL, IM, Before Discharge hydrOXYzine, 50 mg= 1 cap(s), Oral, TID, PRN labetalol, 50 mg= 0.5 tab(s), Oral, Daily lactobacillus acidophilus oral tablet, 1 tab(s), Oral, Daily lidocaine topical 5% transdermal patch, 1 patch(es), Transdermal, qHS melatonin, 6 mg= 2 tab(s), Oral, qHS, PRN Milk of Magnesia, 30 mL, Oral, Daily, PRN Mylanta, 30 mL, Oral, QID, PRN naproxen, 250 mg= 1 tab(s), Oral, BID, PRN Nicoderm 7 mg/24hr patch, 1 patch(es), Transdermal, Daily ondansetron, 4 mg= 2 mL, IV Push, q6hr, PRN QUEtiapine, 50 mg= 2 tab(s), Oral, BID Home No active home medications I certify that inpatient psychiatric hospital admission is medically necessary for treatment which could reasonably be expected to improve the patient's condition: _yes In need of ILOC due to:_Suicidality/drug overdose Is the patient involuntary? _No ?? Treatment Plan Discussed and Reviewed with Patient:_y Receiving active treatment through medication, individual, group, and milieu therapy Extracted from: Title:Physician Progress Note - Psychiatric Auth or:Calixto Leung MD Date:10/11/22 Patient was admitted for??dr adeola victor, has had suicidality in recent past. ??The patient appears to be improving,??but continues to remain anxious, restless,??fair insight seems to be somewhat limited.?No medication changes indicated today. She continues to remain in need of inpatient hospitalization for safety stabilization and medication management. 1.??Other specified depressive episodes 2.??Oppositional defiant disorder 3.??ADHD 4.??Mild intellectual disability Orders: docusate, 100 mg = 1 cap(s), Cap, Oral, Daily PRN constipation, Start date 10/11/22 16:03:00 EST, Routine Inpatient albuterol inhaler, 2 puff(s), Inhaled, q4hr, PRN cetirizine, 10 mg= 1 tab(s), Oral, Daily cloNIDine, 0.2 mg= 1 tab(s), Oral, qHS Colace, 100 mg= 1 cap(s), Oral, Daily, PRN Fluarix Quadrivalent, 0.5 mL, IM, Before Discharge hydrOXYzine, 50 mg= 1 cap(s), Oral, TID, PRN labetalol, 50 mg= 0.5 tab(s), Oral, Daily lactobacillus acidophilus oral tablet, 1 tab(s), Oral, Daily lidocaine topical 5% transdermal patch, 1 patch(es), Transdermal, qHS melatonin, 6 mg= 2 tab(s), Oral, qHS, PRN Milk of Magnesia, 30 mL, Oral, Daily, PRN Mylanta, 30 mL, Oral, QID, PRN naproxen, 250 mg= 1 tab(s), Oral, BID, PRN Nicoderm 7 mg/24hr patch, 1 patch(es), Transdermal, Daily ondansetron, 4 mg= 2 mL, IV Push, q6hr, PRN QUEtiapine, 25 mg= 1 tab(s), Oral, BID Home No active home medications ?? I certify that inpatient psychiatric hospital admission is medically necessary for treatment which could reasonably be expected to improve the patient's condition: _yes In need of ILOC due to:_Suicidality/drug overdose Is the patient involuntary? _No ?? Treatment Plan Discussed and Reviewed with Patient:_y Receiving active treatment through medication, individual, group, and milieu therapy Extracted from: Title:History & Physical - Psychiatric Author:ME SKYLER STERN NP Date:10/10/22 Reason for Admission SI with recent overdose on fluoxetine. Substance Abuse History Patient reports brief experimentation with marijuana edibles though did not like how it made her feel.?? She states that she drinks??pedersen seltzers infrequently, approximately 1 drink??on average every other day. ??Patient states that she consumed a large amount of alcohol??the day she decided to overdose on her fluoxetine and reportedly??blacked out. Mental Status Exam General appearance: Adequately kept, good eye contact, calm Mood and Affect:??Reports improvement today; affect??range Gait:??Within normal limits Muscle strength and tone:??No tremor or weakness observed Speech:??Within normal limits Thought content:??Denies SI today; denies HI/AVH; no evidence of delusion or paranoia,??concrete Thought process:??Organized Orientation:??X3 Language:??Able to verbally articulate Attention span and concentration:??Adequate for interview Fundamentals of knowledge:??Average to below average Associations:??Intact Recent and Remote memory:??Fair Judgement and Insight:??Fair on unit;??fair ? Assessment/Plan This is a 27-year-old female with??formal diagnoses of mild intellectual disability,??unspecified depression,??ADHD??combined type, oppositional??defiant disorder of whom is a direct admission from the [facility] after??a recent overdose on fluoxetine, unknown quantity??and consuming a large amount of alcohol to the point of blacking out.?Patient necessitated administration of??charcoal while in the emergency department. ??patient attributes??her SI, in part, to the fluoxetine stating that this medication had increased the intensity and frequency of her thoughts when she was taking it.?? Patient also endorses??stressors related to her living situation??and acknowledges having a trauma history although??did not feel comfortable disclosing specifics. ??At time of this assessment, patient did not disclose criteria specific to??bipolar monika/hypomania??or psychoses. ??Denies acute traumatic flashbacks, nightmares, hypervigilance. ??Denies panic attacks. ??Patient states that she has adequate community supports with her outpatient team and??friends/family.?Today, patient??acknowledges that she??appreciates that her??suicide attempt was not successful, citing her family as??a reason that she is thankful to be alive. ??She is motivated for treatment on the unit??and reports an overall improvement in mood??since her arrival to [facility]??yesterday evening.?? Denies acute SI??today. ??Compliant with 25 mg twice a day Seroquel??of which is reasonable to continue at this time for mood stabilization. ??Given patient's recent overdose and reports of adverse effects related to SI,??we will??not resume fluoxetine. ??We will continue patient's other home medications including 0.2 mg clonidine at bedtime, cetirizine,??labetalol for high blood pressure.?She did receive??50 mg dose of Vistaril yesterday evening of which she felt to be helpful for sleep and would like to continue this??as needed on the unit.?She also requests a 5% lidocaine patch for lower back pain??secondary to unintentionally falling down the stairs of her apartment a total of 5 times. ??Patient was agreeable to have baseline lab work drawn on [facility].?? Results pending.? In patient's current condition, inpatient care is warranted for safety and stabilization.?Treatment plan will continue to be modified??based on daily assessments. ??Discharge planning remains ongoing at this time. ?? The patient was admitted on a voluntary basis and placed on 15 minute checks for safety and stabilization. Pt will be evaluated by nursing, social work and occupational therapy.??Pt will be enrolled in individual, group and milieu therapies. We will contact collaterals and outpatient providers for continuity of care and will work with patient on discharge planning. ? Diagnosis 1.??Other specified depressive episodes ? per assessment &hx 2.??Oppositional defiant disorder ? - per hx 3.??ADHD ? -per hx 4.??Mild intellectual disability ? - per hx Functional Status 10/13/22 ADLs Independent Medications cetirizine 10 mg oral tablet 10 mg = 1 tab(s), Oral, Daily, # 30 tab(s), 0 Refill(s), Pharmacy: [id number] Start Date: 10/13/22 Stop Date: 11/12/22 Status: Ordered cloNIDine 0.2 mg oral tablet 0.2 mg = 1 tab(s), Oral, qHS, # 30 tab(s), 0 Refill(s), Pharmacy: [facility] Start Date: 10/13/22 Stop Date: 11/12/22 Status: Ordered labetalol 100 mg oral tablet 50 mg = 0.5 tab(s), Oral, Daily, # 15 tab(s), 0 Refill(s), Pharmacy: [facility] Start Date: 10/13/22 Stop Date: 11/12/22 Status: Ordered lactobacillus acidophilus oral tablet 1 tab(s), Oral, Daily, # 30 tab(s), 0 Refill(s), Pharmacy: [facility] Start Date: 10/13/22 Stop Date: 11/12/22 Status: Ordered QUEtiapine 25 mg oral tablet 25 mg = 1 tab(s), Oral, BID, # 60 tab(s), 0 Refill(s), Pharmacy: [facility] Start Date: 10/13/22 Stop Date: 11/12/22 Status: Ordered Mental Status 10/13/22 Level of Consciousness Alert Orientation Assessment Oriented x 4 Results Laboratory List Name Date Thyroid [place] 10/11/22 Vitamin D Total (25 Hydroxy) 10/11/22 .Estimated Glomerular Filtration Rate CBC 10/11/22 Comprehensive Metabolic Panel (CMP) 10/11 Glucose Level 10/10/22 Lipid Panel (Fasting Lipid Profile) 10/10 Most recent to oldest [Reference Range]: 1 2 AGAP 12 *NA* (10/11/22 6:52 AM) LDL 65 mg/dL *NA* (10/10/22 7:36 AM) Ldl/Hdl 1.5 mg/dL *NA* (10/10/22 7:36 AM) Chol/Trig 1.60 mg/dL *NA* (10/10/22 7:36 AM) VLDL 16 mg/dL *NA* (10/10/22 7:36 AM) A/G Ratio 1.0 *NA* (10/11/22 6:52 AM) BUN/Creat Ratio 13 *NA* (10/11/22 6:52 AM) RBC [4.00-5.20 x10(6)/mcL] 5.16 x10(6)/m cL (10/11/22 6:52 AM) RDW [11.5-14.5 %] 15.8 % *HI* (10/11/22 6:52 AM) Sodium Level [136-145 mmol/L] 139 mmol/L (10/11/22 6:52 AM) Total Protein [6.4-8.2 gm/dL] 7.2 gm/dL (10/11/22 6:52 AM) Trig 79 mg/dL *NA* (10/10/22 7:36 AM) TSH [0.360-3.740 mcIU/mL] 3.290 mcIU/mL (10/11/22 7:50 AM) AST [15-37 IU/L] 13 IU/L *LOW* (10/11/22 6:52 AM) Bili Total [0.20-1.00 mg/dL] 0.30 mg/dL (10/11/22 6:52 AM) Chol 124 mg/dL *NA* (10/10/22 7:36 AM) CO2 [21-32 mmol/L] 25 mmol/L (10/11/22 6:52 AM) Albumin Level [3.4-5.0 gm/dL] 3.6 gm/dL (10/11/22 6:52 AM) Alk Phos [48-129 unit/L] 82 unit/L (10/11/22 6:52 AM) ALT [13-61 IU/L] 24 IU/L (10/11/22 6:52 AM) Hct [36.0-46.0 %] 40.8 % (10/11/22 6:52 AM) HDL 43 mg/dL *NA* (10/10/22 7:36 AM) Hgb [12.0-15.0 gm/dL] 12.8 gm/dL (10/11/22 6:52 AM) MCH [26.0-34.0 pg] 24.8 pg *LOW* (10/11/22 6:52 AM) MCHC [31.0-37.0 gm/dL] 31.4 gm/dL (10/11/22 6:52 AM) MCV [80-100 fL] 79 fL *LOW* (10/11/22 6:52 AM) MPV [9.2-12.7 fL] 12.9 fL *HI* (10/11/22 6:52 AM) Glucose Level [74-106 mg/dL] 86 mg/dL (10/11/22 6:52 AM) 101 mg/dL (10/10/22 7:36 AM) Platelet [150-350 x10(3)/mcL] 261 x10(3) /mcL (10/11/22 6:52 AM) Potassium Level [3.5-5.1 mmol/L] 4.0 mmo l/L (10/11/22 6:52 AM) WBC [4.5-11.0 x10(3)/mcL] 9.6 x10(3)/mcL (10/11/22 6:52 AM) BUN [7-18 mg/dL] 9 mg/dL (10/11/22 6:52 AM) Calcium Level [8.5-10.1 mg/dL] 8.8 mg/dL (10/11/22 6:52 AM) Chloride [98-107 mmol/L] 106 mmol/L (10/11/22 6:52 AM) eGFR AA >60 mL/min/1.73 m2 *NA* (10/11/22 6:52 AM) eGFR EFRAIN >60 mL/min/1.73 m2 *NA* (10/11/22 6:52 AM) NRBC % [0.0-0.2 %] 0.0 % (10/11/22 6:52 AM) Osmol Calculated 276 mOsm/kg *NA* (10/11/22 6:52 AM) Vitamin D Total (25 Hydroxy) [30.0-100.0 ng/mL] 21.8 ng/mL *LOW* (10/11/22 7:50 AM) Creatinine [0.6-1.3 mg/dL] 0.7 mg/dL (10/11/22 6:52 AM) Vital Signs Most recent to oldest [Reference Range]: 1 2 3 Temperature Temporal Artery [36.3-37.8 DegC] 36.3 DegC (10/13/22 8:56 AM) 36.9 DegC (10/12/22 8:40 AM) 37.1 DegC (10/11/22 6:50 PM) Peripheral Pulse Rate [60-100 bpm] 99 bpm (10/13/22 8:56 AM) 93 bpm (10/12/22 8:40 AM) 100 bpm (10/11/22 6:50 PM) Respiratory Rate [14-20 br/min] 16 br/min (10/13/22 8:56 AM) 16 br/min (10/12/22 3:15 PM) 16 br/min (10/11/22 6:50 PM) Blood Pressure [90-140/60-90 mmHg] 135/83mmHg (10/13/22 8:56 AM) 127/81mmHg (10/12/22 8:40 AM) 136/104mmHg (10/11/22 6:50 PM) Mean Arterial Pressure, Cuff 90 mmHg (10/11/22 7:44 AM) Blood Pressure 148/96mmHg (10/09/22 7:30 PM) Mean Arterial Presure, Manual 113 mmHg (10/09/22 7:30 PM) Social History Social History Type Response Smoking Status Current every day alberta walton; Type: Vape entered on: 10/09/22 Sex Female Hospital Discharge Instructions Patient Education 10/13/2022 12:16:08 Depression [facility] Home Care Instructions Depression [facility] [address] [address] Depression is a type of mood disorder that makes you feel uncontrollably sad. It is an emotion or feeling that often affects your actions, and how you feel about yourself and life in general. It is amedical condition that is often managed with medication and other types of therapy Things to report to your doctor: ??? Feelings of sadness lasting for at least two weeks ??? Feelings of hopelessness or helplessness ??? Isolation ??? Thoughts of self harm ??? Changes in sleep( not enough or too much) ??? Loss of interest in regular activities ??? Tearfulness ??? Poor concentration ??? Changes in appetite ??? Low energy level Seek help immediately if you are having thoughts of killing yourself. ??? [facility] Crisis Line [phone] ??? [facility] Diet: ??? Ask your doctor if you need to be on a special diet. ??? Drink 6-8 cups of healthy liquid a day. Follow your doctor???s advice if you must limit the amount you drink. ??? Try to eat a balanced diet with plenty of fruits and vegetables. ??? Try not to skip meals ??? Certain medications may call for dietary changes. ??? Limit caffeine. ??? Avoid alcohol and illegal drugs: they can upset your sleep, interfere with your medications, and worsen your depression. Activity: ??? Regular exercise can make you feel better.Talk to your doctor about an exercise program that would be right for you. ??? Do things that you enjoy. ??? Try to get outside in the fresh air and sunlight everyday. ??? Spend time with other people. ??? Talk to family and friends about how you are feeling. ??? Sleep is very important. Most people need at least 6-8 hours of sleepa night. ??? Learn new ways to manage stress. ??? Keep all follow-up appointments and write down questions that you want to ask ??? Don???t stop medications or other treatment (even if you are feeling better) without first asking your doctor. ??? Remember that it may take several weeks for some medications to take effect. ??? If you feel that your medications are not working for you talk with your doctor. ??? Recovery takes time. Return to your normal activities as recommended by your doctor. Form # [id number] 02/2008 Initials: Jcarlos Junior Discharge summary * YANNI RANDLE MD: PERFORM Event Display: Discharge Summary Authored Date: Discharge Summary Reason for Hospitalization SI with recent overdose on fluoxetine. History of Present Illness This note was drafted using voice recognition technology. Sometimes, attempts at proofreading miss errors. Although every effort is taken to accurately recreate clinically pertinent information, grammatical errors and misspellings may still occur. Please feel free to contact the psychiatry department with any inquiries. ?? The following information was obtained from patient, EMR,??and collateral reports.?? Patient is a direct admission from [facility]??center. ??Per collateral records??collected from transfer??facility, patient carries history of mild intellectual disability,??other specified depressive episodes,??ADHD combined type,??oppositional defiant disorder. ??Patient is a client of [facility]. ?? This is a 27-year-old female??with history of inpatient??psychiatric hospitalizations??throughout adolescence??with most recent at [facility] in 2012.??Patient was initially??screened at [facility]??after she endorsed suicidal thoughts with a plan??to her primary care doctor.?? Patient states that??she does not like where she lives and reports her medications were not working.?? She has stopped taking fluoxetine??approximately 2??weeks ago, though recently started taking it again??without doctor's approval.?? Patient reports thinking about suicide daily??with plan to either cut her wrists or hang herself.?? [facility] had removed her access to means at home but states??I could just go to the store and buy a rope.?? Patient reported a decrease in appetite and poor sleep, eating approximately 1 meal a day??and not sleeping for 3 days, although reports feeling overlytired??as a result.?? While in the emergency department,??patient scored a 23???27 on the PHQ-9,??a5???6 on the C-SSRS, and a 4???5 on the PTSD 5. ?? During assessment on PSI U,??patient appears to be a poor historian in regard to??specifics to timeline??of events.?? She stated that she had overdosed on??fluoxetine??prior to coming to the emergency department??and necessitated??administration of charcoal. ??Patient states she believes her suicidal thoughts were the result of??fluoxetine??and she does not wish to continue at this time.?? She also states that she does not like where she lives, stating that the landlord??has neglected??her concerns??about her apartment??and as a result, patient states that she had fallen down the stairs at least 5 times??due to poor craftsmanship. ??Patient denies history of psychoses??and/or being treated for such symptoms. ??When asked about trauma history, patient chose not to disclose specifics.?? Specific timeline of symptoms??were difficult to discern due to patient's vagueness and inability to recall, however, she states that??she has been sleeping??more than usual??recently,??appetite has beenpoor [denies weight loss],??she lacked motivation and energy stating that her apartment is a messof which she typically keeps tidy.?? Since her admission to [facility] over the past 24 hours, patient reports??an overall improvement in mood??and attributes this to being off of her fluoxetine. ??Patient denies history of current substance abuse. ??She states that she experimented with??marijuana edibles with her girlfriend??though reports that??she did not have a good reaction??and does not plan tocontinue this recreational drug.?? She reports drinking??approximately 1 pedersen seltzer of alcohol??every other day, approximately. ??Denies drinking to??excess or experiencing blackouts until recently.?? When she decided to overdose on the fluoxetine, patient consumed an unknown amount of alcohol??and reportedly??blacked out.?? She states that her friends told her that she posted a picture of herself in her bra on Facebook although she does not recall doing this.?? When asked if she??was grateful to be alive today and that her overdose was not successful,??patient initially shrugged her shoulders, and then stated I am glad to be alive because I do not want to do that to my family.?? Patient reports feeling??moderately??sad today??because she misses her animals, but otherwise states that she feels safe on the unit. ?? Past Psychiatric History Distant inpatient treatment at [facility] in 2012. ?? Reports history of cutting behaviors with most recent??last although cuts were superficial and??healed over. ?? Reports being treated with??fluoxetine, unknown timeline,??though reports??this medication was ineffective and??may have contributed to patient's increased suicidal thoughts - patient reports, it made me feel weird.?? Patient is also prescribed 25 mg twice a day Seroquel, although??she could not recall??timeline of treatment. ?? Patient reports that her treatment team is via [facility]??at which she has a counselor that she has not seen in 7 months, patient states I think he quit, I am not sure what happened there.?? And she has a prescriber??Dr. Deleon. Patient is also a client of [facility]. Substance Abuse History Patient reports brief experimentation with marijuana edibles though did not like how it made her feel.?? She states that she drinks??pedersen seltzers infrequently, approximately 1 drink??on average every other day. ??Patient states that she consumed a large amount of alcohol??the day she decided to o verdose on her fluoxetine and reportedly??blacked out. Social History She reports that she lives in[facility]??and has her own apartment.?Patient has a romantic relationship with her girlfriend. ??Positive??supports in her family include her Kassandra, mom, girlfriend, and Celina. ??Denies legal difficulties.?? Completed high school.?? Patient nods head in regard to positive trauma history but??did not feel comfortable disclosing specifics.?? Patient does not like where she lives and attributes this to??having an undesirable landlord. ??She does not drive and does not have a license. ??No kids. [1] Discharge Diagnoses 1.??Other specified depressive episodes 2.??Oppositional defiant disorder 3.??ADHD 4.??Mild intellectual disability Discharge Medication List Home Medications (5) Active cetirizine 10 mg oral tablet??10 mg = 1 tab(s), Oral, Daily cloNIDine 0.2 mg oral tablet??0.2 mg = 1 tab(s), Oral, qHS labetalol 100 mg oral tablet??50 mg = 0.5 tab(s), Oral, Daily lactobacillus acidophilus oral tablet??1 tab(s), Oral, Daily QUEtiapine 25 mg oral tablet??25 mg = 1 tab(s), Oral, BID Condition at Discharge Improved, safe, stable Prognosis Fair Physician Discharge Instructions Discharge Patient Diet: Regular Depart Patient Activity Level Restrict: As Tolerated Follow Up With: Address: When: Niyah Serna [address] [place] [address] 11/11/2021 01:30:00 Comments: This is your hospital follow up appointment with your primary care provider. ? With: Address: When: [address] [phone] Within 1 week Comments: Please follow up with your telephonic nurse case manager Joan. Joan will schedule a follow up appointment for you to see Dr. Locke Discharge Disposition Home with transport by [facility] Hospital Course Patient reports she recently became suicidal because of Prozac, stating Prozac makes her anxious and suicidal and because of this reason she does not want to take any psychiatric medications. ??Patient reports feeling anxious, restless, mildly depressed. ??Patient denies feeling hopeless, helpless or worthless or acutely suicidal at this point. ??Patient slept 9.25 hours, feeling well rested, social and visible on unit, attending groups. ??The patient has not engaged in any unsafe behavior on the unit. [2] ?? Patient??reports doing well stating she is feeling??sad??but not depressed,??feeling down but not suicidal. ??Patient??describes her mood up-and-down,??continues to have??intermittent episodes of anxiety and mood, at times she would feel restless,??last night she was able to sleep well, she slept for??6.25 hours. ??Patient??does not want to resume antidepressant, stating??any antidepressant makesher suicidal??she would like to continue??Seroquel only.?? Patient is agreeable to??go up on dose of Seroquel from 25 mg twice daily to 50 mg twice daily??given the fact that she is not open to??try antidepressant.?? Patient??has been social and visible on unit, attending multiple groups each day, she has not engaged in any unsafe behavior on the unit. [3] ?? On the last day of her hospitalization, patient did not take the dose of seroquel 50mg and only took only??25mg. She is going to group therapy and said this is helping improve her mood. She said she was feeling better: she denied depression, anxiety and had no suicidal ideations. No homicidal ideations of hallucinations, no manic symptoms. she is??sleeping well, eating??well and taking??care of her hygiene.??She requested to discharge home saying she will be safe to herself and others in the community. She said she will call her telephonic nurse case manager. She was appropriate for outpatient level of care and her outpatient team agreed to offer transportation. Time Spent with Patient More than 30 minutes were spent for patient discharge. More than half of the time was spent in counseling and coordination of care. Counseling with the patient was supportive and psychoeducational innature. Coordination of care with nursing was in regard to progress over the last 24 hours. Coordination of care with social work was in regard to discharge planning. [1]??History & Physical - Psychiatric; MARCY STERN NP 10/10/2022 15:39 EST [2]??Physician Progress Note - Psychiatric; Calixto Leung MD 10/11/2022 16:02 EST [3]??Physician Progress Note - Psychiatric; Calixto Leung MD 10/12/2022 08:32 EST Electronically Signed By: YANNI RANDLE MD Date and Time Signed: 10/13/22 12:16 EST Physician Progress Note * Calixto Leung MD: MODIFY, PERFORM Event Display: Physician Progress Note Authored Date: [id number] Progress Note Subjective/24 Hour Events The??patient was seen, chart reviewed, discussed with the team. ??The past 24 hours remained uneventful, no overnight issues were reported by the staff. ??Patient??reports doing well stating she is feeling??sad??but not depressed,??feeling down but not suicidal. ??Patient??describes her mood up-and- down,??continues to have??intermittent episodes of anxiety and mood, at times she would feel restless,??last night she was able to sleep well, she slept for??6.25 hours. ??Patient??does not want to resume antidepressant, stating??any antidepressant makes her suicidal??she would like to continue??Seroquel only.?? Patient is agreeable to??go up on dose of Seroquel from 25 mg twice daily to 50 mg twice daily??given the fact that she is not open to??try antidepressant.?? Patient??has been social and visible on unit, attending multiple groups each day, she has not engaged in any unsafe behavior onthe unit. Objective Vitals & Measurements T:??37.1?C??(Temporal Artery)?? HR:??100??(Peripheral)?? RR:??16?? BP:??136/104?? SpO2:??100%?? Mental Status Examination The patient was overall cooperative, engaging,??mildly anxious,??speech??normal, good eye contact, described her mood anxious, affect mildly constricted, thought process linear and goal-directed,??thought content devoid of paranoid delusion,??denies current suicidality/homicidality, absent perceptua l??disturbances.?? Impulse control fair. Assessment/Plan The patient is currently showing slow and gradual improvement, the symptoms of??depression/mood anxiety are subsiding gradually,??patient continues to feel sad, down,??anxious.?? Patient??is not willing to??accept??antidepressant, however??she is agreeable to go up on dose of Seroquel. ??Seroquel??does have property to treat??mood dysregulation as well as depressive symptoms related to mood disorders. ??We will increase the dose Seroquel from 25 mg twice daily to 50 mg twice daily.?? Patient continues to remain in need of inpatient hospitalization??for safety, stabilization and medication management. 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 Orders: docusate, 100 mg = 1 cap(s), Cap, Oral, Daily PRN constipation, Start date 10/11/22 16:03:00 EST, Routine Medications Inpatient albuterol inhaler, 2 puff(s), Inhaled, q4hr, PRN cetirizine, 10 mg= 1 tab(s), Oral, Daily cloNIDine, 0.2 mg= 1 tab(s), Oral, qHS Colace, 100 mg= 1 cap(s), Oral, Daily, PRN Fluarix Quadrivalent, 0.5 mL, IM, Before Discharge hydrOXYzine, 50 mg= 1 cap(s), Oral, TID, PRN labetalol, 50 mg= 0.5 tab(s), Oral, Daily lactobacillus acidophilus oral tablet, 1 tab(s), Oral, Daily lidocaine topical 5% transdermal patch, 1 patch(es), Transdermal, qHS melatonin, 6 mg= 2 tab(s), Oral, qHS, PRN Milk of Magnesia, 30 mL, Oral, Daily, PRN Mylanta, 30 mL, Oral, QID, PRN naproxen, 250 mg= 1 tab(s), Oral, BID, PRN Nicoderm 7 mg/24hr patch, 1 patch(es), Transdermal, Daily ondansetron, 4 mg= 2 mL, IV Push, q6hr, PRN QUEtiapine, 50 mg= 2 tab(s), Oral, BID Home No active home medications Physician Re-Certification of Medical Necessity I certify that inpatient psychiatric hospital admission is medically necessary for treatment which could reasonably be expected to improve the patient's condition: _yes In need of ILOC due to:_Suicidality/drug overdose Is the patient involuntary? _No Treatment Plan: ?? Treatment Plan Discussed and Reviewed with Patient:_y Receiving active treatment through medication, individual, group, and milieu therapy Time Spent with Patient 25 Coordination of Care More than half of the time was spent counseling the patient about psychiatric illness, the benefitsof compliance, the risks vs. benefits of medications, coordination of care with mental health social worker and nursing staff about progress in the last 24 hours, and discharge planning/establishing aftercare. ?? This note was drafted using voice recognition technology. Sometimes, attempts at proofreading miss errors. Although every effort is taken to accurately recreate clinically pertinent information, grammatical errors and misspellings may still occur. Please feel free to contact the psychiatry department with any inquiries. Electronically Signed By: Calixto Leung MD Date and Time Signed: 10/12/22 13:42 EST * Calixto Leung MD: PERFORM Event Display: Physician Progress Note Authored Date: [id number] Progress Note Subjective/24 Hour Events The??patient was seen, chart reviewed, discussed with the team. ??The??past 24 hours remained uneventful, no overnight issues or more normal the staff. ??Patient reports she recently became suicidal because of Prozac, stating Prozac makes her anxious and suicidal and because of this reason she doesnot want to take any psychiatric medications. ??Patient reports feeling anxious, restless, mildly depressed. ??Patient denies feeling hopeless, helpless or worthless or acutely suicidal at this point. ??Patient slept 9.25 hours, feeling well rested, social and visible on unit, attending groups. ??The patient has not engaged in any unsafe behavior on the unit. Objective Vitals & Measurements T:??36.4?C??(Temporal Artery)?? HR:??94??(Peripheral)?? BP:??126/78?? SpO2:??100%?? Mental Status Examination General cooperative, engaging,??mildly anxious, restless,??speech??normal, good eye contact, describes her mood anxious, affect mildly constricted, thought process linear and goal-directed,??thought content devoid of paranoid delusion,??denies current suicidality/homicidality, absent perceptual??dis turbances.?? Impulse control fair. Results Lab Results Chemistry BUN: 9 mg/dL Calcium Level: 8.8 mg/dL Chloride: 106 mmol/L Creatinine: 0.7 mg/dL Glucose Level: 86 mg/dL Potassium Level: 4 mmol/L Sodium Level: 139 mmol/L TSH: 3.29 mcIU/mL LFT Albumin Level: 3.6 gm/dL Alk Phos: 82 unit/L ALT: 24 IU/L AST:??13 IU/L??Low Bili Total: 0.3 mg/dL Total Protein: 7.2 gm/dL Hematology Hct: 40.8 % Hgb: 12.8 gm/dL Platelet: 261 x10(3)/mcL RBC: 5.16 x10(6)/mcL WBC: 9.6 x10(3)/mcL Assessment/Plan Patient was admitted for??drug overdose, has had suicidality in recent past. ??The patient appears to be improving,??but continues to remain anxious, restless,??fair insight seems to be somewhat limited.?No medication changes indicated today. She continues to remain in need of inpatient hospitalization for safety stabilization and medication management. 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 Orders: docusate, 100 mg = 1 cap(s), Cap, Oral, Daily PRN constipation, Start date 10/11/22 16:03:00 EST, Routine Medications Inpatient albuterol inhaler, 2 puff(s), Inhaled, q4hr, PRN cetirizine, 10 mg= 1 tab(s), Oral, Daily cloNIDine, 0.2 mg= 1 tab(s), Oral, qHS Colace, 100 mg= 1 cap(s), Oral, Daily, PRN Fluarix Quadrivalent, 0.5 mL, IM, Before Discharge hydrOXYzine, 50 mg= 1 cap(s), Oral, TID, PRN labetalol, 50 mg= 0.5 tab(s), Oral, Daily lactobacillus acidophilus oral tablet, 1 tab(s), Oral, Daily lidocaine topical 5% transdermal patch, 1 patch(es), Transdermal, qHS melatonin, 6 mg= 2 tab(s), Oral, qHS, PRN Milk of Magnesia, 30 mL, Oral, Daily, PRN Mylanta, 30 mL, Oral, QID, PRN naproxen, 250 mg= 1 tab(s), Oral, BID, PRN Nicoderm 7 mg/24hr patch, 1 patch(es), Transdermal, Daily ondansetron, 4 mg= 2 mL, IV Push, q6hr, PRN QUEtiapine, 25 mg= 1 tab(s), Oral, BID Home No active home medications Physician Re-Certification of Medical Necessity ?? I certify that inpatient psychiatric hospital admission is medically necessary for treatment which could reasonably be expected to improve the patient's condition: _yes In need of ILOC due to:_Suicidality/drug overdose Is the patient involuntary? _No Treatment Plan: ?? Treatment Plan Discussed and Reviewed with Patient:_y Receiving active treatment through medication, individual, group, and milieu therapy Time Spent with Patient 25 Coordination of Care More than half of the time was spent counseling the patient about psychiatric illness, the benefitsof compliance, the risks vs. benefits of medications, coordination of care with mental health social worker and nursing staff about progress in the last 24 hours, and discharge planning/establishing aftercare. ?? This note was drafted using voice recognition technology. Sometimes, attempts at proofreading miss errors. Although every effort is taken to accurately recreate clinically pertinent information, grammatical errors and misspellings may still occur. Please feel free to contact the psychiatry department with any inquiries. ?? Electronically Signed By: Calixto Leung MD Date and Time Signed: 10/11/22 16:06 EST History and physical note * MARCY STERN NP: MODIFY, PERFORM Event Display: History and Physical Authored Date: [id number] History & Physical Reason for Admission SI with recent overdose on fluoxetine. History of Present Illness This note was drafted using voice recognition technology. Sometimes, attempts at proofreading miss errors. Although every effort is taken to accurately recreate clinically pertinent information, grammatical errors and misspellings may still occur. Please feel free to contact the psychiatry department with any inquiries. ?? The following information was obtained from patient, EMR,??and collateral reports.?? Patient is a direct admission from [facility]??center. ??Per collateral records??collected from transfer??facility, patient carries history of mild intellectual disability,??other specified depressive episodes,??ADHD combined type,??oppositional defiant disorder. ??Patient is a client of [facility] ?? This is a 27-year-old female??with history of inpatient??psychiatric hospitalizations??throughout adolescence??with most recent at [facility] in 2012.??Patient was initially??screened at [facility]??after she endorsed suicidal thoughts with a plan??to her primary care doctor.?? Patient states that??she does not like where she lives and reports her medications were not working.?? She has stopped taking fluoxetine??approximately 2??weeks ago, though recently started taking it again??without doctor's approval.?? Patient reports thinking about suicide daily??with plan to either cut her wrists or hang herself.?? [facility] had removed her access to means at home but states??I could just go to the store and buy a rope.?? Patient reported a decrease in appetite and poor sleep, eating approximately 1 meal a day??and not sleeping for 3 days, although reports feeling overlytired??as a result.?? While in the emergency department,??patient scored a 23???27 on the PHQ-9,??a5???6 on the C-SSRS, and a 4???5 on the PTSD 5. ?? During assessment on [facility],??patient appears to be a poor historian in regard to??specifics to timeline??of events.?? She stated that she had overdosed on??fluoxetine??prior to coming to the emergency department??and necessitated??administration of charcoal. ??Patient states she believes her suic idal thoughts were the result of??fluoxetine??and she does not wish to continue at this time.?? Shealso states that she does not like where she lives, stating that the landlord??has neglected??her concerns??about her apartment??and as a result, patient states that she had fallen down the stairs atleast 5 times??due to poor craftsmanship. ??Patient denies history of psychoses??and/or being treated for such symptoms. ??When asked about trauma history, patient chose not to disclose specifics.?? Specific timeline of symptoms??were difficult to discern due to patient's vagueness and inability torecall, however, she states that??she has been sleeping??more than usual??recently,??appetite has been poor [denies weight loss],??she lacked motivation and energy stating that her apartment is a mess of which she typically keeps tidy.?? Since her admission to [facility] over the past 24 hours, patient reports??an overall improvement in mood??and attributes this to being off of her fluoxetine. ??Patient denies history of current substance abuse. ??She states that she experimented with??marijuana edibles with her girlfriend??though reports that??she did not have a good reaction??and does not planto continue this recreational drug.?? She reports drinking??approximately 1 pedersen seltzer of alcohol??every other day, approximately. ??Denies drinking to??excess or experiencing blackouts until rece ntly.?? When she decided to overdose on the fluoxetine, patient consumed an unknown amount of alcohol??and reportedly??blacked out.?? She states that her friends told her that she posted a picture ofherself in her bra on Facebook although she does not recall doing this.?? When asked if she??was grateful to be alive today and that her overdose was not successful,??patient initially shrugged her shoulders, and then stated I am glad to be alive because I do not want to do that to my family.?? Patient reports feeling??moderately??sad today??because she misses her animals, but otherwise states that she feels safe on the unit. ?? Past Psychiatric History Distant inpatient treatment at [facility] in 2013. ?? Reports history of cutting behaviors with most recent??last although cuts were superficial and??healed over. ?? Reports being treated with??fluoxetine, unknown timeline,??though reports??this medication was ineffective and??may have contributed to patient's increased suicidal thoughts - patient reports, it made me feel weird.?? Patient is also prescribed 25 mg twice a day Seroquel, although??she could not recall??timeline of treatment. ?? Patient reports that her treatment team is via [facility]??at which she has a counselor that she has not seen in 7 months, patient states I think he quit, I am not sure what happened there.?? And she has a prescriber??Dr. Locke Patient is also a client of [facility] Substance Abuse History Patient reports brief experimentation with marijuana edibles though did not like how it made her feel.?? She states that she drinks??pedersen seltzers infrequently, approximately 1 drink??on average every other day. ??Patient states that she consumed a large amount of alcohol??the day she decided to o verdose on her fluoxetine and reportedly??blacked out. Social History She reports that she lives in[facility]??and has her own apartment.?Patient has a romantic relationship with her girlfriend. ??Positive??supports in her family include her Kassandra, mom, girlfriend, and Celina. ??Denies legal difficulties.?? Completed high school.?? Patient nods head in regard to positive trauma history but??did not feel comfortable disclosing specifics.?? Patient does not like where she lives and attributes this to??having an undesirable landlord. ??She does not drive and does not have a license. ??No kids. Physical Exam Vitals & Measurements T:??36.3?C??(Temporal Artery)?? HR:??91??(Peripheral)?? BP:??123/70?? SpO2:??98%?? HT:??157.5??cm?? WT:??101.9??kg?? Patient was reportedly medically cleared from the [facility]. ?? Mental Status Exam General appearance: Adequately kept, good eye contact, calm Mood and Affect:??Reports improvement today; affect??range Gait:??Within normal limits Muscle strength and tone:??No tremor or weakness observed Speech:??Within normal limits Thought content:??Denies SI today; denies HI/AVH; no evidence of delusion or paranoia,??concrete Thought process:??Organized Orientation:??X3 Language:??Able to verbally articulate Attention span and concentration:??Adequate for interview Fundamentals of knowledge:??Average to below average Associations:??Intact Recent and Remote memory:??Fair Judgement and Insight:??Fair on unit;??fair ?? Assessment/Plan This is a 27-year-old female with??formal diagnoses of mild intellectual disability,??unspecified depression,??ADHD??combined type, oppositional??defiant disorder of whom is a direct admission from the [facility] after??a recent overdose on fluoxetine, unknown quantity??and consuming a large amount of alcohol to the point of blacking out.?Patient necessitated administration of??charcoal while in the emergency department. ??patient attributes??her SI, in part, to the fluoxetine stating that this medication had increased the intensity and frequency of her thoughts when she was taking it.?? Patient also endorses??stressors related to her living situation??and acknowledges having a trauma history although??did not feel comfortable disclosing specifics. ??At time of this assessment, patient did not disclose criteria specific to??bipolar monika/hypomania??or psychoses. ??Denies acute traumatic flashbacks, nightmares, hypervigilance. ??Denies panic attacks. ??Patient states that she has adequate community supports with her outpatient team and??friends/family.?Today, patient??acknowledges that she??appreciates that her??suicide attempt was not successful, citing her family as??a reason that she is thankful to be alive. ??She is motivated for treatment on the uni t??and reports an overall improvement in mood??since her arrival to [facility]??yesterday evening.?? Denies acute SI??today. ??Compliant with 25 mg twice a day Seroquel??of which is reasonable to continueat this time for mood stabilization. ??Given patient's recent overdose and reports of adverse effects related to SI,??we will??not resume fluoxetine. ??We will continue patient's other home medications including 0.2 mg clonidine at bedtime, cetirizine,??labetalol for high blood pressure.?She didreceive??50 mg dose of Vistaril yesterday evening of which she felt to be helpful for sleep and would like to continue this??as needed on the unit.?She also requests a 5% lidocaine patch for lowerback pain??secondary to unintentionally falling down the stairs of her apartment a total of 5 times. ??Patient was agreeable to have baseline lab work drawn on [facility].?? Results pending.? In patient's current condition, inpatient care is warranted for safety and stabilization.?Treatment plan will continue to be modified??based on daily assessments. ??Discharge planning remains ongoing at this time. ?? The patient was admitted on a voluntary basis and placed on 15 minute checks for safety and stabilization. Pt will be evaluated by nursing, social work and occupational therapy.??Pt will be enrolled in individual, group and milieu therapies. We will contact collaterals and outpatient providers for continuity of care and will work with patient on discharge planning. ?? Diagnosis 1.??Other specified depressive episodes ? per assessment &hx 2.??Oppositional defiant disorder ? - per hx 3.??ADHD ? -per hx 4.??Mild intellectual disability ? - per hx Time Spent with Patient 40min. Coordination of Care 10min. Problem List/Past Medical History Ongoing No qualifying data Historical No qualifying data Medications Inpatient albuterol inhaler, 2 puff(s), Inhaled, q4hr, PRN cetirizine, 10 mg= 1 tab(s), Oral, Daily cloNIDine, 0.2 mg= 1 tab(s), Oral, qHS Fluarix Quadrivalent, 0.5 mL, IM, Before Discharge hydrOXYzine, 50 mg= 1 cap(s), Oral, TID, PRN labetalol, 50 mg= 0.5 tab(s), Oral, Daily lactobacillus acidophilus oral tablet, 1 tab(s), Oral, Daily lidocaine topical 5% transdermal patch, 1 patch(es), Transdermal, qAM melatonin, 6 mg= 2 tab(s), Oral, qHS, PRN Milk of Magnesia, 30 mL, Oral, Daily, PRN Mylanta, 30 mL, Oral, QID, PRN naproxen, 250 mg= 1 tab(s), Oral, BID, PRN Nicoderm 7 mg/24hr patch, 1 patch(es), Transdermal, Daily ondansetron, 4 mg= 2 mL, IV Push, q6hr, PRN QUEtiapine, 25 mg= 1 tab(s), Oral, BID Home No active home medications Allergies Fluticasone HFA??(Unknown) acetaminophen??(Nausea) amoxicillin??(Nausea) diphenhydrAMINE??(Vomiting) NSAIDs??(HX kidney damage) PARoxetine??(Hives) Seafood lisinopril polyethylene glycol 3350 risperiDONE??(Hives) Lab Results Lipid Panel Chol: 124 mg/dL (10/10/22 07:36:00) HDL: 43 mg/dL (10/10/22 07:36:00) LDL: 65 mg/dL (10/10/22 07:36:00) Tri mg/dL (10/10/22 07:36:00) Chemistry Glucose Level: 101 mg/dL (10/10/22 07:36:00) Electronically Signed By: MARCY STERN NP Date and Time Signed: 10/10/22 16:46 EST Care Team Care Team Personnel Name: No Local PCP No Local PCP, Member Role: Primary Care Physician Care Team Related Persons Name: MEJIAEARL Address: Home Name: JOAN NÚÑEZ Address: Home
[2023-08-29 18:06] VITALS: BP 155/111; PULSE 119; RESP 20; TEMP 37.6; O2SAT 98
[2023-08-29 18:11] VITALS: RESP 18
--- NOTE | 2023-08-29 18:15 | RT.EKG_ITS ---
APPROVED REPORT Exam: Resting ECG Reason for Exam: syncope Patient Location: E HR:106 bpm ECG Measurements Heart Rate 106 AXIS AK 138 P 34 QRSd 87 QRS 54 QT 326 T -15 QTc 433 Conclusion Sinus tachycardia...rate> 99 Abnormal Q suggests anterior infarct...Q >30mS in V2-V4
--- NOTE | 2023-08-29 18:18 | W.ED.GENAD ---
Discharge Plan Disposition Patient Disposition: Home Discharge Details Clinical Impression: Diabetes, Syncope Primary Care Provider: Niyah Serna ED Provider: Wilian May Home Meds and New Rx's Prescriptions: Continued melatonin 3 mg tablet 5 mg PO HS Rx Instructions: 1-2 tabs (3-6 mg) po at hs labetalol 100 mg tablet 50 mg PO QAM Ozempic 0.25 mg or 0.5 mg (2 mg/3 mL) pen injector 0.25 mg subcut QWEEK Rx Instructions: for 4 weeks medroxyprogesterone 150 mg/mL syringe 150 mg IM [id number] Qty: 1 5RF albuterol sulfate [Ventolin HFA] 90 mcg/actuation HFA aerosol inhaler 2 puff inhalation Q6H PRN ergocalciferol (vitamin D2) 1,250 mcg (50,000 unit) capsule 1,250 mcg PO QWEEK floradix iron 1 tab PO DAILY quetiapine 25 mg tablet 25 mg PO BID buspirone 7.5 mg tablet 7.5 mg PO BID docusate sodium 100 mg capsule 100 mg PO DAILY lidocaine 4 % kit 1 ea topical PRN PRN pantoprazole 40 mg Tablet,Delayed Release (Dr/Ec) 40 mg PO QAM clonidine HCl 0.2 mg tablet 0.2 mg PO QHS Patient Comments: TAKE ONE TABLET BY MOUTH AT BEDTIME hyoscyamine sulfate [Levsin] 0.125 mg tablet 0.125 mg PO BID-QID PRNQty: 10 0RF Discharge Instructions Instructions: Syncope (ED) Additional Instructions: You were seen in the emergency department requesting your Ozempic. We have performed some labs that were unremarkable. Your EKG was unremarkable. We assisted you in administering your Ozempic. Follow-up with your primary care doctor about this visit. We are complaining about fainting episodes as well. Follow-up with your primary care doctor about these fainting/blackout episodes. Return to the emergency department if you have any other concerns. Referrals: Niyah Serna [Primary Care Provider] - 1 week Medical Decision Making 28-year-old female history of diabetes and other psychiatric diagnoses and multiple chronic medical conditions as now presenting requesting her Ozempic. She does not know how to give this. She is reporting blackout or syncope episodes over the last year. Will check EKG to look for dysrhythmia. Will check CBC to look for anemia. We will get broad labs look for electrolyte or metabolic cause of the patient's symptoms. She does not have any focal neurologic deficits or headaches and normal for CT imaging of the head at this time. I told her she should follow-up with her primary care doctor and ask about getting an EEG and she expresses understanding. We will check some basic labs to make sure she does not have significant hyperglycemia, DKA, or HHS but I think that these are very unlikely. Certainly if her labs are unremarkable we can assist her in taking her Ozempic. We will perform testing as above and reevaluate. 7pm Labs grossly unremarkable. Will give Ozempic and discharge with return precautions. Medical Records Medical records reviewed: Yes I reviewed the patient's medical records. Lab Data Lab results reviewed: Yes I reviewed the patient's lab results. Lab results narrative: Labs grossly unremarkable. ECG Data Attestation: I personally reviewed and interpreted this ECG (s) as follows: Prior ECG tracings: available for review Interpretation: Sinus tachycardia with a rate of 106. Normal [place] intervals. No ST or T wave changes. Otherwise unremarkable EKG. HPI General Mode of arrival: EMS. Date/Time Provider Initiated Documentation: 08/29/23 18:11. Limitations to Documentation: no limitations. Information obtained by: patient and EMS. HPI Narrative: 28-year-old female presents with episode of blacking out. She says that her therapist 20-minute periods during the day as when she sometimes does not remember what happened. She has no symptoms before this. No symptoms after. Says this has been going on for about a year. Thinks she might of had one today but is not sure. Anyways, the patient says that she does not know how to give her on Ozempic shot so she came here to have us give her her dose. She denies any complaints presently. Related Data Home Medications Medication Instructions Recorded Confirmed labetalol 100 mg tablet 50 mg PO QAM 09/25/21 08/29/23 melatonin 3 mg tablet 5 mg PO HS 09/25/21 08/29/23 pantoprazole 40 mg tablet,delayed 40 mg PO QAM 11/22/22 08/29/23 release clonidine HCl 0.2 mg tablet 0.2 mg PO QHS 02/15/23 08/29/23 albuterol sulfate 90 mcg/actuation 2 puff inhalation Q6H PRN 03/24/23 08/29/23 aerosol inhaler (Ventolin HFA) buspirone 7.5 mg tablet 7.5 mg PO BID 03/24/23 08/29/23 docusate sodium 100 mg capsule 100 mg PO DAILY 03/24/23 08/29/23 ergocalciferol (vitamin D2) 1,250 1,250 mcg PO QWEEK 03/24/23 08/29/23 mcg (50,000 unit) capsule floradix iron 1 tab PO DAILY 03/24/23 08/29/23 lidocaine 4 % topical patch, kit 1 ea topical PRN PRN 03/24/23 08/29/23 with alcohol pads quetiapine 25 mg tablet 25 mg PO BID 03/24/23 08/29/23 hyoscyamine sulfate 0.125 mg 0.125 mg PO BID-QID PRN #10 tabs 05/08/23 08/29/23 tablet (Levsin) medroxyprogesterone 150 mg/mL 150 mg IM [id number] #1 mL 08/11/23 08/29/23 intramuscular syringe semaglutide 0.25 mg or 0.5 mg (2 0.25 mg subcut QWEEK 08/11/23 08/29/23 mg/3 mL) subcutaneous pen injector (OzTresata) Previous Rx's Medication Instructions Recorded hyoscyamine sulfate 0.125 mg 0.125 mg PO BID-QID PRN #10 tabs 05/08/23 tablet (Levsin) medroxyprogesterone 150 mg/mL 150 mg IM [id number] #1 mL 08/11/23 intramuscular syringe Allergies Allergy/AdvReac Type Severity Reaction Status Date / Time fluticasone Allergy Severe unknown Verified 08/29/23 18:03 [From Flovent HFA] fluoxetine Allergy Intermediate Verified 08/29/23 18:03 ibuprofen Allergy Intermediate vomiting Verified 08/29/23 18:03 lisinopril Allergy Intermediate unknown Verified 08/29/23 18:03 naproxen [From Aleve] Allergy Intermediate vomiting Verified 08/29/23 18:03 paroxetine HCl [From Paxil] Allergy Intermediate Hives Verified 08/29/23 18:03 risperidone [From Risperdal] Allergy Intermediate Hives Verified 08/29/23 18:03 sertraline Allergy Intermediate Verified 08/29/23 18:03 NSAIDS (Non-Steroidal Allergy Due to Verified 08/29/23 18:03 Anti-Inflamma prior kidney damage acetaminophen AdvReac Nausea Unverified 08/29/23 18:03 amoxicillin AdvReac Nausea Verified 08/29/23 18:03 dark sodas Allergy Severe Uncoded 08/29/23 18:03 seafood Allergy Intermediate unknown Uncoded 08/29/23 18:03 enviornmental Allergy Mild sneezing Uncoded 08/29/23 18:03 General Stated Complaint: GenMedical MARY KAY: 3 Review of Systems Constitutional Constitutional: Denies chills, Denies fever(s) and Denies headache(s) Eyes Eyes: Denies change in vision ENT Ears, Nose, Mouth, and Throat: Denies headache(s) and Denies odynophagia Cardiovascular Cardiovascular: Denies chest pain and Denies dyspnea Respiratory Respiratory: Denies dyspnea Gastrointestinal Gastrointestinal: Denies abdominal pain, Denies diarrhea, Denies nausea, Denies odynophagia and Denies vomiting Genitourinary Genitourinary: Denies dysuria Musculoskeletal Musculoskeletal: Denies myalgias Integumentary/Breasts Skin/Breast: Denies changing lesions Neurologic Neurologic: Denies behavioral changes and Denies headache(s) Psychiatric Psychiatric: Denies behavioral changes Endocrine Endocrine: Denies heat intolerance Hematologic/Lymphatic Hematologic/Lymphatic: Denies lymphadenopathy PFSH All Active Problems (Updated 08/29/23 @ 19:00 by Wilian May MD) Syncope (Chronic) Diabetes (Chronic) Breakthrough bleeding on depo provera (Acute) Encounter for Depo-Provera contraception (Acute) Since 2016. Nicotine dependence (Acute) Contraception, generic surveillance (Acute) Hx of OCPs, Nexplanon, DepoProvera. 02/2023 Norethindrone 0.35mg till 05/2023. Resumed DepoProvera. 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 Hypertrophy of tonsils and adenoids Suicidal ideation Bipolar 2 disorder RBC microcytosis Vitamin D deficiency Steatosis of liver Back pain Dysuria Abdominal pain History of allergic reaction Hemolytic uremic syndrome PTSD (post-traumatic stress disorder) Mesenteric lymphadenitis Drug abuse, episodic use SASHA (stress urinary incontinence, female) Pain, dental Blood in stool History of mastoiditis Jaw pain TMJ tenderness, left Otalgia, right ear BMI 40.0-44.9, adult Overactive bladder (02/09/18) Generalized headaches (12/31/16) Depression (12/31/16) Depo-Provera contraceptive status (09/13/17) Depo-Provera contraception since 08/11/2017. Patient is using the Depo-Provera for menstrual cycle control. ADHD (attention deficit hyperactivity disorder) (12/31/16) Surgical History History of colonoscopy (~06/2022) Hx of tooth extraction History of kidney surgery Social History Smoking/Tobacco Use Status: Former Tobacco Use Quit Date: 11/27/22 Smoking risk assessment performed?: Yes Alcohol Intake: former Drug use: Current Sobriety Substance use type: marijuana Housing: homeless Sexually active: Yes (female partner only now(May 2022). Has never had intercourse) Do you think of yourself as: lesbian/cash/homosexual What is your relationship status?: never Panel score (0-1 are the most socially isolated patients): 0 Do you feel safe at home: Yes Do you feel safe in your relationship?: Yes Additional Social history: pt is staying at the [facility] at the moment due to being homeless. Female Reproductive History Menstrual control method: progesterone injection History History 0 Para Hx # Term Pregnancies Multiple births Hx # Pregnancies Ectopic pregnancies AB induced Hx Number of Living Children AB spontaneous Exam Const General: cooperative Nutritional Appearance: average body habitus Orientation: alert, awake and oriented x3 HENMT Head: normal to inspection Ears: external ears normal Mouth: moist mucous membranes Eyes Pupils: PERRL EOM: EOM intact bilaterally and No nystagmus Neck Neck: full ROM and no tracheal deviation Chest Chest: normal inspection of the chest Resp Auscultation: clear to auscultation bilaterally Cardio Rate: regular rate Rhythm: regular rhythm GI Inspection: normal to inspection Palpation: soft, no guarding, not rigid and nontender Back/Spine/Pelvis Back: No no CVA tenderness Thoracic/Lumbar Spine: thoracic and lumbar spine normal to inspection Skin General skin exam: no rashes or lesions noted Neuro General: patient alert, patient awake and patient oriented x3 Cranial Nerves: CN's II-XI intact bilaterally, PERRL and no nystagmus Cognition: normal cognition Motor: muscle tone normal throughout and strength 5/5 throughout Sensory Exam: no sensory deficits noted Extrem General: normal to inspection Course Vital Signs Vital signs: Vital Signs Temperature 37.6 C H 08/29/23 17:57 Pulse 119 H 08/29/23 17:57 Respiratory Rate 20 08/29/23 17:57 Blood Pressure 155/111 H 08/29/23 17:57 Pulse Oximetry 98 08/29/23 17:57 Temperature 37.6 C H 08/29/23 18:06 Temperature Source Tympanic 08/29/23 18:06 Pulse 119 H 08/29/23 18:06 Respiratory Rate 18 08/29/23 18:11 Respiratory Effort Normal, Non-Labored 08/29/23 18:11 Respiratory Depth Normal 08/29/23 18:11 Respiratory Pattern Normal 08/29/23 18:11 Blood Pressure 155/111 H 08/29/23 18:06 Blood Pressure Position Sitting 08/29/23 18:06 Pulse Oximetry 98 08/29/23 18:06 Oxygen Delivery Method Room Air 08/29/23 18:06 Oxygen Flow Rate 0 08/29/23 18:06 Pain Level 0 08/29/23 18:06
[2023-08-29] MEDS: Normal Saline 1,000 ML 1000 ML IV (18:43)
[2023-08-29 18:44] LABS: BE (Venous) -3 mmol/L (-2-3); HCO3 (Venous) 22 mmol/L (23-28); O2 Sat (Venous) 66 %; TCO2 (Venous) 20 mmol/L (24-29); pCO2 (Venous) 38 mmHg (41-51); pH (Venous) 7.38 (7.31-7.41); pO2 (Venous) 36 mmHg
[2023-08-29 18:45] LABS: Abs Immature Grans 0.04 10^3/uL (0.0-0.06); Absolute Eosinophil Count 0.13 10^3/uL (0.0-0.7); Absolute Monocyte Count 0.85 10^3/uL (0.1-0.8); Basophils % 0.5; HCT 43.7 % (36.0-46.0); HGB 13.8 g/dL (11.2-15.7); Immature Grans % 0.3; Lymphocytes % 18.6; MCH 23.6 pg (27.0-33.0); MCHC 31.6 % (32.0-36.0); MCV 75 fL (80-95); Monocytes % 6.6; Platelet Count 299 10^3/uL (130-400); RBC 5.85 10^6/uL (3.93-5.22); RDW 14.4 % (11.7-14.6); RDW-SD 38.4 fL; WBC 12.93 10^3/uL (4.4-10.8)
[2023-08-29 19:00] LABS: Absolute Basophil Count 0.06 10^3/uL (0.0-0.2); Absolute Neutrophil Count 9.44 10^3/uL (1.2-6.7)
[2023-08-29 19:01] LABS: Diff Comment RBC Morph Reviewed; MPV 12.3 fL (8.0-11.0); Microcytosis 1+
[2023-08-29 19:04] LABS: ALT 26 U/L (14-59); AST 13 U/L (15-37); Albumin 4.2 g/dL (3.4-5.0); Alkaline Phosphatase 101 U/L (46-116); Anion Gap 12.2 mmol/L (3-11); BUN 9 mg/dL (7-18); Bilirubin, Total 0.5 mg/dL (0.2-1.0); CO2 21.8 mmol/L (21.0-32.0); CREATININE 0.9 mg/dL (0.55-1.02); Calcium 9.7 mg/dL (8.5-10.1); Chloride 102 mmol/L (98-107); Estimated GFR 90.42 (mL/min/1.73m2); Glucose 118 mg/dL (74-106); Potassium 3.5 mmol/L (3.5-5.1); Sodium 136 mmol/L (136-145); Total Protein 8.5 g/dL (6.4-8.2)
[2023-08-29 19:35] VITALS: BP 139/93; PULSE 100; RESP 14; O2SAT 98
== END 2023-08-29 19:31 | disposition home or self-care (01) ==
PROVIDERS: Emergency Provider Student in an Organized Health Care Education/Training Program; PCP Nurse Practitioner Family
DX: E11.9 Type 2 diabetes mellitus without complications (principal); R55 Syncope and collapse; R00.0 Tachycardia, unspecified; Z79.84 Long term (current) use of oral hypoglycemic drugs; Z87.891 Personal history of nicotine dependence
CPT/HCPCS: 36415; 80053; 82805; 93005; 96360; 99283; 83735; 85025; 93010

== ENCOUNTER 2023-09-01 17:03 | Emergency (ER) | payer MEDICAID, SELFPAY ==
[2023-09-01 16:58] VITALS: BP 151/126; PULSE 134; RESP 20; O2SAT 98
[2023-09-01 17:38] LABS: HCT 43.8 % (36.0-46.0); HGB 13.8 g/dL (11.2-15.7); MCH 23.4 pg (27.0-33.0); MCHC 31.5 % (32.0-36.0); MCV 74 fL (80-95); RBC 5.91 10^6/uL (3.93-5.22); RDW 14.4 % (11.7-14.6); RDW-SD 38.5 fL; WBC 11.55 10^3/uL (4.4-10.8)
[2023-09-01 17:47] LABS: Bilirubin Small (Negative); Blood Negative (Negative); Clarity Clear (Clear); Glucose Negative (Negative); Ketones Trace mg/dL (Negative); Leukocyte Esterase Negative (Negative); Nitrite Negative (Negative); Specific Gravity >= 1.030 (1.005-1.025); Urobilinogen 0.2 mg/dL (Up to 0.2)
[2023-09-01 17:55] LABS: Bacteria Rare HPF (Negative); Crystals Negative HPF (Negative); Epithelial Cells Few HPF (Negative); RBC 0-2 HPF (0-2)
[2023-09-01 17:56] LABS: C & S Indicated? No; Casts Negative LPF (Negative); Mucus Heavy (Negative)
[2023-09-01 17:57] LABS: Salicylate < 2.8 mg/dL (<2.8)
[2023-09-01 17:58] LABS: Acetaminophen < 2 ug/mL (10-30)
[2023-09-01 18:01] LABS: Absolute Lymphocyte Count 3.12 10^3/uL (1.2-3.4); Absolute Monocyte Count 0.69 10^3/uL (0.1-0.8); Absolute Neutrophil Count 7.74 10^3/uL (1.2-6.7); Atypical Lymphocytes % 6; Diff Comment Manual Differential; Hypochromasia 1+; Microcytosis 1+
[2023-09-01 18:02] LABS: Platelet Count 304 10^3/uL (130-400)
[2023-09-01 18:07] LABS: ALT 31 U/L (14-59); AST 17 U/L (15-37); Albumin 4.4 g/dL (3.4-5.0); Alkaline Phosphatase 94 U/L (46-116); Anion Gap 12.6 mmol/L (3-11); BUN 8 mg/dL (7-18); Bilirubin, Total 0.5 mg/dL (0.2-1.0); CO2 21.4 mmol/L (21.0-32.0); CREATININE 0.8 mg/dL (0.55-1.02); Calcium 9.7 mg/dL (8.5-10.1); Chloride 105 mmol/L (98-107); ETHANOL BLOOD < 3.0 mg/dL (<10); Estimated GFR 104.15 (mL/min/1.73m2); Glucose 123 mg/dL (74-106); Potassium 3.6 mmol/L (3.5-5.1); Sodium 139 mmol/L (136-145); TSH (W/Ref FT4) 1.19 uIU/mL (0.36-3.74); Total Protein 8.4 g/dL (6.4-8.2)
[2023-09-01 18:13] LABS: Source Nasal/Nares
[2023-09-01 18:14] LABS: *AMPHETAMINES SCREEN URINE Negative (Negative); *BARBITURATES SCREEN URINE Negative (Negative); *BENZODIAZEPINES SCREEN URINE Negative (Negative); Cannabinoids THC Negative (Negative); Cocaine Screen,Urine Negative (Negative); METHADONE URINE SCREEN Negative (Negative); OPIATES URINE SCREEN Negative (Negative); Tricyclic Antidepressants Negative (Negative)
[2023-09-01 18:47] LABS: COVID-19 PCR Negative (Negative)
--- NOTE | 2023-09-01 19:42 | W.ED.GENAD ---
Discharge Plan Discharge Details Chief Complaint: PsychEval Primary Care Provider: Niyah Serna ED Provider: Bhargavi Mcghee Home Meds and New Rx's Prescriptions: No Action melatonin 3 mg tablet 5 mg PO HS labetalol 100 mg tablet 100 mg PO QAM Ozempic 0.25 mg or 0.5 mg (2 mg/3 mL) pen injector 0.25 mg subcut QWEEK Rx Instructions: for 4 weeks medroxyprogesterone 150 mg/mL syringe 150 mg IM [id number] Qty: 1 5RF albuterol sulfate [Ventolin HFA] 90 mcg/actuation HFA aerosol inhaler 2 puff inhalation Q6H PRN quetiapine 25 mg tablet 25 mg PO BID buspirone 7.5 mg tablet 7.5 mg PO BID docusate sodium 100 mg capsule 100 mg PO DAILY lidocaine 4 % kit 1 ea topical PRN PRN pantoprazole 40 mg Tablet,Delayed Release (Dr/Ec) 40 mg PO QAM clonidine HCl 0.2 mg tablet 0.2 mg PO QHS Medical Decision Making This is a 28-year-old psychiatric patient presents with decompensated symptoms of depression with homicidal ideation denies any recent medical illness. Will obtain routine labs. Her physical exam is unremarkable her lacerations do not require repair there is no evidence of infection. They are healing and unremarkable. Her medical screening labs show no acute medical condition to explain her decompensated symptoms. She is medically cleared for psychiatric evaluation. Mental health evaluation performed at the bedside in person. Patient has been cooperative with no behavioral issues. Plan is for voluntary inpatient psychiatric admission for medication management and psychiatric treatment. She will be housed here in our [facility] psychiatric area until a bed is available. Report and care of patient will be handed off to Dr. [facility] emergency department provider Medical Records Medical records reviewed: Yes I reviewed the patient's medical records. HPI General Mode of arrival: EMS. Date/Time Provider Initiated Documentation: 09/01/23 17:05. Limitations to Documentation: no limitations. Information obtained by: patient. HPI Narrative: This is a 28-year-old female patient extensive past medical psychiatric history with multiple hospitalizations who presents for evaluation of depression with homicidal ideation. She has superficial lacerations on her left anterior forearm. She states that she has been telling her outpatient team that she does not feel safe but they have been ignoring her especially Idania who she states she would like to stab with a glass. Stating I hate her. She denies any recent medical illness or complaints. She has had no fever redness or drainage from her superficial cuts Related Data Home Medications Medication Instructions Recorded Confirmed labetalol 100 mg tablet 100 mg PO QAM 09/25/21 09/01/23 melatonin 3 mg tablet 5 mg PO HS 09/25/21 09/01/23 pantoprazole 40 mg tablet,delayed 40 mg PO QAM 11/22/22 09/01/23 release clonidine HCl 0.2 mg tablet 0.2 mg PO QHS 02/15/23 09/01/23 albuterol sulfate 90 mcg/actuation 2 puff inhalation Q6H PRN 03/24/23 09/01/23 aerosol inhaler (Ventolin HFA) buspirone 7.5 mg tablet 7.5 mg PO BID 03/24/23 09/01/23 docusate sodium 100 mg capsule 100 mg PO DAILY 03/24/23 09/01/23 lidocaine 4 % topical patch, kit 1 ea topical PRN PRN 03/24/23 09/01/23 with alcohol pads quetiapine 25 mg tablet 25 mg PO BID 03/24/23 09/01/23 medroxyprogesterone 150 mg/mL 150 mg IM [id number] #1 mL 08/11/23 09/01/23 intramuscular syringe semaglutide 0.25 mg or 0.5 mg (2 0.25 mg subcut QWEEK 08/11/23 09/01/23 mg/3 mL) subcutaneous pen injector (Ozempic) Previous Rx's Medication Instructions Recorded medroxyprogesterone 150 mg/mL 150 mg IM [id number] #1 mL 08/11/23 intramuscular syringe Allergies Allergy/AdvReac Type Severity Reaction Status Date / Time fluticasone Allergy Severe unknown Verified 08/29/23 18:03 [From Flovent HFA] fluoxetine Allergy Intermediate Verified 08/29/23 18:03 ibuprofen Allergy Intermediate vomiting Verified 08/29/23 18:03 lisinopril Allergy Intermediate unknown Verified 08/29/23 18:03 naproxen [From Aleve] Allergy Intermediate vomiting Verified 08/29/23 18:03 paroxetine HCl [From Paxil] Allergy Intermediate Hives Verified 08/29/23 18:03 risperidone [From Risperdal] Allergy Intermediate Hives Verified 08/29/23 18:03 sertraline Allergy Intermediate Verified 08/29/23 18:03 NSAIDS (Non-Steroidal Allergy Due to Verified 08/29/23 18:03 Anti-Inflamma prior kidney damage acetaminophen AdvReac Nausea Unverified 08/29/23 18:03 amoxicillin AdvReac Nausea Verified 08/29/23 18:03 dark sodas Allergy Severe Uncoded 08/29/23 18:03 seafood Allergy Intermediate unknown Uncoded 08/29/23 18:03 enviornmental Allergy Mild sneezing Uncoded 08/29/23 18:03 General Stated Complaint: PsychEval MARY KAY: 2 Review of Systems All systems reviewed & are unremarkable except as noted in HPI and below PFSH All Active Problems (Updated 08/29/23 @ 19:00 by Wilian May MD) Syncope (Chronic) Diabetes (Chronic) Breakthrough bleeding on depo provera (Acute) Encounter for Depo-Provera contraception (Acute) Since 2016. Nicotine dependence (Acute) Contraception, generic surveillance (Acute) Hx of OCPs, Nexplanon, DepoProvera. 02/2023 Norethindrone 0.35mg till 05/2023. Resumed DepoProvera. 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 Hypertrophy of tonsils and adenoids Suicidal ideation Bipolar 2 disorder RBC microcytosis Vitamin D deficiency Steatosis of liver Back pain Dysuria Abdominal pain History of allergic reaction Hemolytic uremic syndrome PTSD (post-traumatic stress disorder) Mesenteric lymphadenitis Drug abuse, episodic use SASHA (stress urinary incontinence, female) Pain, dental Blood in stool History of mastoiditis Jaw pain TMJ tenderness, left Otalgia, right ear BMI 40.0-44.9, adult Overactive bladder (02/09/18) Generalized headaches (12/31/16) Depression (12/31/16) Depo-Provera contraceptive status (09/13/17) Depo-Provera contraception since 08/11/2017. Patient is using the Depo-Provera for menstrual cycle control. ADHD (attention deficit hyperactivity disorder) (12/31/16) Surgical History History of colonoscopy (~06/2022) Hx of tooth extraction History of kidney surgery Social History Smoking/Tobacco Use Status: Former Tobacco Use Quit Date: 11/27/22 Smoking risk assessment performed?: Yes Alcohol Intake: former Drug use: Current Sobriety Substance use type: marijuana Housing: homeless Sexually active: Yes (female partner only now(May 2022). Has never had intercourse) Do you think of yourself as: lesbian/cash/homosexual What is your relationship status?: never Panel score (0-1 are the most socially isolated patients): 0 Do you feel safe at home: Yes Do you feel safe in your relationship?: Yes Additional Social history: pt is staying at the [facility] at the moment due to being homeless. Female Reproductive History Menstrual control method: progesterone injection History History 0 Para Hx # Term Pregnancies Multiple births Hx # Pregnancies Ectopic pregnancies AB induced Hx Number of Living Children AB spontaneous Exam Const General: cooperative Orientation: alert, awake and oriented x3 HENMT Head: normal to inspection Ears: external ears normal Mouth: moist mucous membranes Eyes Pupils: PERRL EOM: EOM intact bilaterally and No nystagmus Neck Neck: full ROM Chest Chest: normal inspection of the chest Resp Auscultation: clear to auscultation bilaterally Cardio Rate: regular rate Rhythm: regular rhythm GI Inspection: normal to inspection Palpation: soft and nontender Back/Spine/Pelvis Back: No no CVA tenderness Skin Lesions: lesion noted (Multiple self-induced superficial scratches on her anterior left inner fore) Rashes: no rashes Neuro General: patient alert, patient awake and patient oriented x3 Cranial Nerves: CN's II-XI intact bilaterally, PERRL and no nystagmus Motor: muscle tone normal throughout and strength 5/5 throughout Sensory Exam: no sensory deficits noted Extrem General: full ROM Course Vital Signs Vital signs: Vital Signs Pulse 134 H 09/01/23 16:58 Respiratory Rate 20 09/01/23 16:58 Blood Pressure 151/126 H 09/01/23 16:58 Pulse Oximetry 98 09/01/23 16:58 Pulse 134 H 09/01/23 16:58 Respiratory Rate 20 09/01/23 16:58 Respiratory Effort Normal, Non-Labored 09/01/23 17:38 Blood Pressure 151/126 H 09/01/23 16:58 Pulse Oximetry 98 09/01/23 16:58 Oxygen Delivery Method Room Air 09/01/23 16:58 Oxygen Flow Rate 0 09/01/23 16:58 Lab/Test Results Lab/Test Results: Laboratory Tests Range/Units 09/01/23 09/01/23 09/01/23 17:15 17:30 18:10 WBC (4.4-10.8) 10^3/uL 11.55 H RBC (3.93-5.22) 10^6/uL 5.91 H Hgb (11.2-15.7) g/dL 13.8 Hct (36.0-46.0) % 43.8 MCV (80-95) fL 74 L MCH (27.0-33.0) pg 23.4 L MCHC (32.0-36.0) % 31.5 L RDW (11.7-14.6) % 14.4 Plt Count (130-400) 10^3/uL 304 MPV (8.0-11.0) fL Immature Gran % 0.0 Neutrophils % 67.0 Lymphocytes % 21.0 Atypical Lymphs % 6 Monocytes % 6.0 Eosinophils % 0.0 Basophils % 0.0 Nucleated RBC % (0.0-0.3) % 0.0 Absolute Neutrophils (1.2-6.7) 10^3/uL 7.74 H Absolute Lymphocytes (1.2-3.4) 10^3/uL 3.12 Absolute Monocytes (0.1-0.8) 10^3/uL 0.69 Absolute Eosinophils (0.0-0.7) 10^3/uL 0.00 Absolute Basophils (0.0-0.2) 10^3/uL 0.00 RBC Morphology See Below Hypochromasia 1+ Microcytosis 1+ Sodium (136-145) mmol/L 139 Potassium (3.5-5.1) mmol/L 3.6 Chloride (98-107) mmol/L 105 Carbon Dioxide (21.0-32.0) mmol/L 21.4 Anion Gap (3-11) mmol/L 12.6 H BUN (7-18) mg/dL 8 Creatinine (0.55-1.02) mg/dL 0.8 Est GFR (CKD-EPI 2020) (mL/min/1.73m2) 104.15 Glucose (74-106) mg/dL 123 H Calcium (8.5-10.1) mg/dL 9.7 Total Bilirubin (0.2-1.0) mg/dL 0.5 AST (15-37) U/L 17 ALT (14-59) U/L 31 Alkaline Phosphatase (46-116) U/L 94 Total Protein (6.4-8.2) g/dL 8.4 H Albumin (3.4-5.0) g/dL 4.4 TSH (0.36-3.74) uIU/mL 1.19 Urine Color (Yellow) Yellow Urine Clarity (Clear) Clear Urine pH (5-8) 6.0 Ur Specific [place] (1.005-1.025) >= 1.030 H Urine Protein (Negative) mg/dL 100 H Urine Ketones (Negative) mg/dL Trace H Urine Blood (Negative) Negative Urine Nitrite (Negative) Negative Urine Bilirubin (Negative) Small H Urine Urobilinogen (Up to 0.2) mg/dL 0.2 Ur Leukocyte Esterase (Negative) Negative Urine RBC (0-2) HPF 0-2 Urine WBC (0-5) HPF 3-5 Ur Epithelial Cells (Negative) HPF Few Urine Crystals (Negative) HPF Negative Urine Bacteria (Negative) HPF Rare Urine Casts (Negative) LPF Negative Urine Mucus (Negative) Heavy Ur Culture Indicated? No Urine Glucose (Negative) mg/dL Negative Salicylates (<2.8) mg/dL < 2.8 Urine Opiates Screen (Negative) Negative Urine Methadone Screen (Negative) Negative Acetaminophen (10-30) ug/mL < 2 Ur Barbiturates Screen (Negative) Negative Ur Tricyclics Screen (Negative) Negative Ur Amphetamines Screen (Negative) Negative U Benzodiazepines Scrn (Negative) Negative Urine Cocaine Screen (Negative) Negative Ur THC Screen (Negative) Negative Ethyl Alcohol (<10) mg/dL < 3.0 COVID-19 Source Nasal/Nares SARS-CoV-2 (PCR) (Negative) Negative POC- Test(urine) Negative
[2023-09-01] MEDS: QUEtiapine 25 MG TAB PO (19:51)
[2023-09-01] MEDS: cloNIDine 0.1 MG TAB 0.2 MG PO (20:36)
[2023-09-01] MEDS: Melatonin 3 MG TAB 5 MG PO (21:48)
--- NOTE | 2023-09-02 06:15 | RT.EKG_ITS ---
APPROVED REPORT Exam: Resting ECG Reason for Exam: racing heart Patient Location: E HR:75 bpm ECG Measurements Heart Rate 75 AXIS MA 67 P 0 QRSd 94 QRS 22 QT 380 T -8 QTc 426 Conclusion Sinus rhythm...normal P axis, V-rate 60- 99 sinus rhythm, normal axis, normal intervals, non ischemic, consider U wave versus baseline artifact
--- NOTE | 2023-09-02 06:24 | W.EDPROG ---
Date of service: 09/02/23 Time of Service: 06:25 Medical Decision Making Patient resting comfortably no acute distress. Heart rate improved from 134 on arrival to 105. No events overnight. Awaiting placement. Sign Out Sign Out Data: Sign Out Comment: 28-year-old with extensive psychiatric history presents with increased depression cutting and homicidal ideation. Medically has been screened and is under a voluntary hold here for inpatient psychiatric bed for inpatient psychiatric management. Last updated by Bhargavi Mcghee NP at 09/01/23 19:55 Discharge Plan Discharge Details Chief Complaint: PsychEval Primary Care Provider: Niyah Serna ED Provider: Zeb Mcguire Home Meds and New Rx's Prescriptions: No Action melatonin 3 mg tablet 5 mg PO HS labetalol 100 mg tablet 100 mg PO QAM Ozempic 0.25 mg or 0.5 mg (2 mg/3 mL) pen injector 0.25 mg subcut QWEEK Rx Instructions: for 4 weeks medroxyprogesterone 150 mg/mL syringe 150 mg IM [id number] Qty: 1 5RF albuterol sulfate [Ventolin HFA] 90 mcg/actuation HFA aerosol inhaler 2 puff inhalation Q6H PRN quetiapine 25 mg tablet 25 mg PO BID buspirone 7.5 mg tablet 7.5 mg PO BID docusate sodium 100 mg capsule 100 mg PO DAILY lidocaine 4 % kit 1 ea topical PRN PRN pantoprazole 40 mg Tablet,Delayed Release (Dr/Ec) 40 mg PO QAM clonidine HCl 0.2 mg tablet 0.2 mg PO QHS
--- NOTE | 2023-09-02 06:28 | NUR.NOTE ---
PT states that it feels like her heart is racing. ED MD notified. order for EKG received. Nursing Note:
--- NOTE | 2023-09-02 07:47 | ED.PROG_ITS ---
Date of service: 09/02/23 Time of Service: 07:00 Medical Decision Making Assumed care of patient at 7 AM. Still awaiting voluntary placement for self- harm and homicidal ideation. No new issues identified. Patient reevaluated by crisis and continues to be voluntary for psychiatric admission. Home medication changed to labetalol 50 mg every morning after clarification with pharmacy. 1400 -provider report given to KIRSTIE Wallace at [facility]. Patient is accepted in transfer. Sign Out Sign Out Data: Sign Out Comment: 28-year-old with extensive psychiatric history presents with increased depression cutting and homicidal ideation. Medically has been screened and is under a voluntary hold here for inpatient psychiatric bed for inpatient psychiatric management. Last updated by Bhargavi Mcghee NP at 09/01/23 19:55 Sign Out Comment: HI, awaiting voluntary placement Last updated by Zeb Mcguire MD at 09/02/23 06:27 Discharge Plan Disposition Patient Disposition: Psychiatric Hospital/Unit Specific Psychiatric Facility: [facility] Condition: Stable Discharge Details Clinical Impression: Depression, Superficial laceration Primary Care Provider: Niyah Serna ED Provider: Meredith Orozco [place] Meds and New Rx's Prescriptions: No Action melatonin 3 mg tablet 5 mg PO HS labetalol 100 mg tablet 100 mg PO QAM Patient Comments: 1/2 Tab QAM Ozempic 0.25 mg or 0.5 mg (2 mg/3 mL) pen injector 0.25 mg subcut QWEEK Rx Instructions: for 4 weeks medroxyprogesterone 150 mg/mL syringe 150 mg IM [id number] Qty: 1 5RF albuterol sulfate [Ventolin HFA] 90 mcg/actuation HFA aerosol inhaler 2 puff inhalation Q6H PRN quetiapine 25 mg tablet 25 mg PO BID buspirone 7.5 mg tablet 7.5 mg PO BID docusate sodium 100 mg capsule 100 mg PO DAILY lidocaine 4 % kit 1 ea topical PRN PRN pantoprazole 40 mg Tablet,Delayed Release (Dr/Ec) 40 mg PO QAM clonidine HCl 0.2 mg tablet 0.2 mg PO QHS
[2023-09-02] MEDS: Docusate Sodium 100 MG CAP PO (07:49)
--- NOTE | 2023-09-02 07:52 | CMSP_ITS ---
Date of service: 09/02/23 Time of Service: 07:52 Care Management Safety Plan Status Status: Voluntary Reason for Wait Reason for Wait: Inpatient Admission Safety Plan Safety Plan: 28-year-old with extensive psychiatric history presents with increased depression, cutting and homicidal ideation. Medically has been screened and is voluntarily here for inpatient psychiatric bed for inpatient psychiatric management. Awaiting voluntary placement for self-harm and homicidal ideation. Patient resting comfortably no acute distress. She has been watching television and slept through the night. Shannon has been appropriate in interaction, she is eating breakfast and attempting to call her parents, per chart review. Shannon is in Zone B, with access to bathroom as needed. VOLUNTARY FOR INPATIENT PSYCHIATRIC STABILIZATION.? Patient has been appropriate since arriving at [facility]; Pt has demonstrated appropriate coping and communication skills, has articulated his or her needs and concerns and is fully engaged during staff interactions. Safety plan has been established with patient, and care team, to adhere to patient goals, identify restrictions based on behavioral status, address nutrition, and determine allowed personal belongings, tools for hygiene and personal care. Determine level of activity including ambulation, level of supervision, visitors, and determine privileges based on behaviors and level of engagement by pt. SAFETY PLAN: 1. Will remain on suicide precautions, in paper clothes 2. Will remain in room under direct supervision of one-on-one staff at all times provided by [employer]; VIGNESH, AIRPLANE DISPATCHER financial aid counselor. 3. May have paper cups, plates, finger foods as well as a cardboard spoon with which to eat meals. 4. Follow [facility] Management of the Admitted Behavioral Health Patient policy. 5. Comfort bath system, shower permitted with escort at RN discretion. 6. Personal belongings-soft items permitted at RN discretion. 7. Visitors-none at this time. 8. Activities: soft cart items approved per RN discretion. 9.? Bathroom privileges available in Zone B without restriction at this time, per RN discretion. 10. Phone: limited to cordless phone at RN discretion. Due to VOLUNTARY status, if patient wishes to leave [facility], staff will contact [facility] Crisis Screener ([phone]) and On-Call Research & Analytics Manager ([phone]) as soon as possible. In the event of elopement, notify [facility] Police ([phone]). Patient is currently voluntarily at [facility] and seeking inpatient admission when a bed becomes available. [facility] Frontline Stock Supervisor will continue seeking placement. Please contact the Air Cargo Specialist Research & Analytics Manager ([phone]) and [facility] Stock Supervisor ([phone]) for any needed changes in the Safety Plan. Safety plan has been provided to interdepartmental care team.
[2023-09-02] MEDS: QUEtiapine 25 MG TAB PO (07:55)
[2023-09-02] MEDS: busPIRone 5 MG TAB 7.5 MG PO (07:56)
[2023-09-02] MEDS: Labetalol 100 MG TAB PO (08:05)
[2023-09-02 08:37] VITALS: BP 140/90; PULSE 95; RESP 18; TEMP 36.3; O2SAT 96
[2023-09-02] MEDS: hydrOXYzine HCL 25 MG TAB PO (09:19)
--- NOTE | 2023-09-02 15:44 | PDOC.CMPRO ---
Date of service: 09/02/23 Time of Service: 15:44 Care Management Progress Note Progress Note Text Progress Note Text: Shannon has been accepted for voluntary placement at [facility]. She will be transported by Rich De La Torre coordinated by
--- NOTE | 2023-09-02 15:45 | PDOC.CMDIS ---
Date of service: 09/02/23 Time of Service: 15:45 Care Management Discharge Plan Reason for Hospitalization: depression and HI Discharge Plan: Shannon will be transported to [facility] for voluntary inpatient admission for depression and HI. She will be transported by Rich De La Torre. Disposition Disposition: [facility]
== END 2023-09-02 17:01 ==
PROVIDERS: Nurse Practitioner Acute Care; Emergency Provider Emergency Medicine Emergency Medical Services; PCP Nurse Practitioner Family
DX: S51.812A Laceration without foreign body of left forearm, initial encounter (principal); R45.850 Homicidal ideations; F32.A Depression, unspecified; E11.9 Type 2 diabetes mellitus without complications; Z87.891 Personal history of nicotine dependence; Z20.822 Contact with and (suspected) exposure to COVID-19; Z59.00 Homelessness unspecified
CPT/HCPCS: 00123; 36415; 80053; 80307; 81025; 82962; 87635; 93005; 99285; 80320; 80329; 81003; 81015; 84443; 85025; 93010

== ENCOUNTER 2023-09-22 05:56 | Emergency (ER) | payer MEDICAID, SELFPAY ==
[2023-09-22 06:01] VITALS: BP 142/108; PULSE 108; RESP 18; TEMP 36.9; O2SAT 98
[2023-09-22 06:08] VITALS: BP 142/108; PULSE 108; RESP 18; TEMP 36.9; O2SAT 98
--- NOTE | 2023-09-22 06:26 | ED.GENADUL_ITS ---
Discharge Plan Disposition Patient Disposition: Home Condition: Good Discharge Details Clinical Impression: Diarrhea, Nausea & vomiting Primary Care Provider: Niyah Serna ED Provider: Douglas Gamez Home Meds and New Rx's Prescriptions: New diphenoxylate-atropine [Lomotil] 2.5-0.025 mg tablet 1 tab PO DAILY Qty: 10 0RF No Action melatonin 3 mg tablet 5 mg PO HS labetalol 100 mg tablet 100 mg PO QAM Patient Comments: 1/2 Tab QAM Ozempic 0.25 mg or 0.5 mg (2 mg/3 mL) pen injector 0.25 mg subcut QWEEK Rx Instructions: for 4 weeks medroxyprogesterone 150 mg/mL syringe 150 mg IM [id number] Qty: 1 5RF albuterol sulfate [Ventolin HFA] 90 mcg/actuation HFA aerosol inhaler 2 puff inhalation Q6H PRN quetiapine 25 mg tablet 25 mg PO BID buspirone 7.5 mg tablet 7.5 mg PO BID docusate sodium 100 mg capsule 100 mg PO DAILY lidocaine 4 % kit 1 ea topical PRN PRN pantoprazole 40 mg Tablet,Delayed Release (Dr/Ec) 40 mg PO QAM clonidine HCl 0.2 mg tablet 0.2 mg PO QHS sertraline 25 mg tablet 25 mg PO DAILY Discharge Instructions Instructions: Acute Nausea and Vomiting (ED) Additional Instructions: At this time your laboratory work-up has returned stable. I suspect the nausea vomiting and diarrhea are likely from a virus or something that you ate. Please take the Lomotil as prescribed to help with the diarrhea. Please take a probiotic every day to help improve your stool function. Take a high-fiber diet for the next few days as your diarrhea improves. Avoid any spicy foods or greasy foods. If you notice any worsening of your symptoms, or any new symptoms such as vomiting, diarrhea, fever, chills, shortness of breath, chest pain, numbness, weakness, or fainting , please return immediately to the emergency department for reevaluation. Please follow up with your primary care provider as soon as possible for reassessment and reevaluation. As always, it was a pleasure participating in your medical care today. Referrals: Niyah Serna [Primary Care Provider] - Medical Decision Making 28-year-old female with a past medical history of CKD stage I, hypertension, mild mental slowing, borderline personality disorder, irritable bowel syndrome, bipolar type II, PTSD, ADHD, presents today for evaluation of nausea vomiting and diarrhea. Symptoms began yesterday. Diarrhea is yellow, vomitus is similar to the food that she is eating. She has continued to eat but has also continued to vomit. She admits to mild generalized abdominal achiness, but no focal pain. No hematemesis, or hematochezia or melena. She denies any other sick contacts. No foreign travel, drinking from streams or castro, or camping. No recent antibiotic use. She was recently discharged from [facility]. No other complaints at this time. No other modifying factors. Exam demonstrates well-appearing female, moist mucous membranes. No abdominal tenderness to speak of. No guarding or rebound. No indication for abdominal imaging. No evidence of an acute surgical abdomen. Differential is highest for mild viral gastroenteritis. Infectious diarrhea unlikely based on symptoms and history. Out of an abundance of precaution we will get stool culture studies. We will rehydrate, give Zofran, get basic labs to evaluate for dehydration, monitor closely and reassess. 7:21 AM On reassessment patient is feeling well. P.o. trial has been performed and patient tolerated this well with no vomiting. Laboratory work-up is returned normal, normal lipase, normal electrolytes, vital signs stable. Symptoms appear to be consistent with mild clinical gastroenteritis. No evidence of an acute surgical abdomen based on physical exam, history and assessment. C C. difficile testing still pending. Patient stable for discharge. Will give Zofran for home use. Discussed red flags for which to return. I have extensively reviewed the treatment plan and discharge instructions with the patient. I have addressed all patient concerns at this time. The patient was made aware of what symptoms to monitor for that would warrant a return to the emergency department. Discussed the plan with the patient, they demonstrate verbal understanding and agreement with our assessment and plan at this time. The documentation in this chart was dictated using HeartFlow dictation software. Please excuse any dictation errors. HPI General Date/Time Provider Initiated Documentation: 09/22/23 06:02 . HPI Narrative: 28-year-old female with a past medical history of CKD stage I, hypertension, mild mental slowing, borderline personality disorder, irritable bowel syndrome, bipolar type II, PTSD, ADHD, presents today for evaluation of nausea vomiting and diarrhea. Symptoms began yesterday. Diarrhea is yellow, vomitus is similar to the food that she is eating. She has continued to eat but has also continued to vomit. She admits to mild generalized abdominal achiness, but no focal pain. No hematemesis, or hematochezia or melena. She denies any other sick contacts. No foreign travel, drinking from streams or castro, or camping. No recent antibiotic use. She was recently discharged from [facility]. No other complaints at this time. No other modifying fa ctors. Related Data Home Medications Medication Instructions Recorded Confirmed labetalol 100 mg tablet 100 mg PO QAM 09/25/21 09/22/23 melatonin 3 mg tablet 5 mg PO HS 09/25/21 09/22/23 pantoprazole 40 mg tablet,delayed 40 mg PO QAM 11/22/22 09/22/23 release clonidine HCl 0.2 mg tablet 0.2 mg PO QHS 02/15/23 09/22/23 albuterol sulfate 90 mcg/actuation 2 puff inhalation Q6H PRN 03/24/23 09/22/23 aerosol inhaler (Ventolin HFA) buspirone 7.5 mg tablet 7.5 mg PO BID 03/24/23 09/22/23 docusate sodium 100 mg capsule 100 mg PO DAILY 03/24/23 09/22/23 lidocaine 4 % topical patch, kit 1 ea topical PRN PRN 03/24/23 09/22/23 with alcohol pads quetiapine 25 mg tablet 25 mg PO BID 03/24/23 09/22/23 medroxyprogesterone 150 mg/mL 150 mg IM [id number] #1 mL 08/11/23 09/22/23 intramuscular syringe semaglutide 0.25 mg or 0.5 mg (2 0.25 mg subcut QWEEK 08/11/23 09/22/23 mg/3 mL) subcutaneous pen injector (Ozempic) diphenoxylate-atropine 2.5 1 tab PO DAILY #10 tabs 09/22/23 mg-0.025 mg tablet (Lomotil) sertraline 25 mg tablet 25 mg PO DAILY 09/22/23 09/22/23 Previous Rx's Medication Instructions Recorded medroxyprogesterone 150 mg/mL 150 mg IM [id number] #1 mL 08/11/23 intramuscular syringe diphenoxylate-atropine 2.5 1 tab PO DAILY #10 tabs 09/22/23 mg-0.025 mg tablet (Lomotil) Allergies Allergy/AdvReac Type Severity Reaction Status Date / Time fluticasone Allergy Severe unknown Verified 09/22/23 06:09 [From Flovent HFA] fluoxetine Allergy Intermediate Verified 09/22/23 06:09 ibuprofen Allergy Intermediate vomiting Verified 09/22/23 06:09 lisinopril Allergy Intermediate unknown Verified 09/22/23 06:09 naproxen [From Aleve] Allergy Intermediate vomiting Verified 09/22/23 06:09 paroxetine HCl [From Paxil] Allergy Intermediate Hives Verified 09/22/23 06:09 risperidone [From Risperdal] Allergy Intermediate Hives Verified 09/22/23 06:09 sertraline Allergy Intermediate Verified 09/22/23 06:09 NSAIDS (Non-Steroidal Allergy Due to Verified 09/22/23 06:09 Anti-Inflamma prior kidney damage acetaminophen AdvReac Nausea Unverified 09/22/23 06:09 amoxicillin AdvReac Nausea Verified 09/22/23 06:09 dark sodas Allergy Severe Uncoded 09/22/23 06:09 seafood Allergy Intermediate unknown Uncoded 09/22/23 06:09 enviornmental Allergy Mild sneezing Uncoded 09/22/23 06:09 General Stated Complaint: Nausea/Vomit/Diar MARY KAY: 3 Review of Systems All systems reviewed & are unremarkable except as noted in HPI and below PFSH All Active Problems (Updated 09/22/23 @ 07:23 by Douglas Gamez DO) Nausea & vomiting (Acute) Diarrhea (Acute) Superficial laceration (Acute) Depression (Chronic) Syncope (Chronic) Diabetes (Chronic) Breakthrough bleeding on depo provera (Acute) Encounter for Depo-Provera contraception (Acute) Since 2017. Nicotine dependence (Acute) Contraception, generic surveillance (Acute) Hx of OCPs, Nexplanon, DepoProvera. 02/2023 Norethindrone 0.35mg till 05/2023. Resumed DepoProvera. 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 Hypertrophy of tonsils and adenoids Suicidal ideation Bipolar 2 disorder RBC microcytosis Vitamin D deficiency Steatosis of liver Back pain Dysuria Abdominal pain History of allergic reaction Hemolytic uremic syndrome PTSD (post-traumatic stress disorder) Mesenteric lymphadenitis Drug abuse, episodic use ASSHA (stress urinary incontinence, female) Pain, dental Blood in stool History of mastoiditis Jaw pain TMJ tenderness, left Otalgia, right ear BMI 40.0-44.9, adult Overactive bladder (02/09/18) Generalized headaches (12/31/16) Depression (12/31/16) Depo-Provera contraceptive status (09/13/17) Depo-Provera contraception since 08/11/2017. Patient is using the Depo- Provera for menstrual cycle control. ADHD (attention deficit hyperactivity disorder) (12/31/16) Surgical History History of colonoscopy (~06/2022) Hx of tooth extraction History of kidney surgery Social History Smoking/Tobacco Use Status: Former Tobacco Use Quit Date: 11/27/22 Smoking risk assessment performed?: Yes Alcohol Intake: former Drug use: Current Sobriety Substance use type: marijuana Housing: homeless Sexually active: Yes (female partner only now(May 2022). Has never had intercourse) Do you think of yourself as: lesbian/cash/homosexual What is your relationship status?: never Panel score (0-1 are the most socially isolated patients): 0 Do you feel safe at home: Yes Do you feel safe in your relationship?: Yes Additional Social history: pt is staying at the [facility] at the moment due to being homeless. Female Reproductive History Menstrual control method: progesterone injection History History 0 Para Hx # Term Pregnancies Multiple births Hx # Pregnancies Ectopic pregnancies AB induced Hx Number of Living Children AB spontaneous Exam Narrative Exam Narrative: 1.Const: Well-nourished, Well-developed, appearing stated age 2.Eyes: PERRL, no conjunctival injection, and symmetrical lids. 3.ENT: Atraumatic external nose and ears. Moist MM. Neck: Symmetric, trachea midline, No thyromegaly. 4.CVS: +S1/S2, No murmurs or gallops. Peripheral pulses 2+ and equal in all extremities. Brisk capillary refill in all extremities. 5.RESP: Unlabored respiratory effort. Clear to auscultation bilaterally. No wheezes rales or rhonchi 6.GI: Soft, Nontender/Nondistended, No hepatosplenomegaly. No guarding or rebound. No pain at McBurney's point. Negative Mortensen sign. 7.MSK: Normocephalic/Atraumatic, Extremities w/o deformity or ttp No cyanosis or clubbing, Normal movement of all extremities 8.Skin: Warm, Dry. No rashes or lesions. 9.Neuro: distributor advertising material II-XII grossly intact. Sensation grossly intact, no focal neurologic deficits. 10.Psych: (AAO) x3. Appropriate mood and affect Course Vital Signs Vital signs: Vital Signs Temperature 36.9 C 09/22/23 06:01 Pulse 108 H 09/22/23 06:01 Respiratory Rate 18 09/22/23 06:01 Blood Pressure 142/108 H 09/22/23 06:01 Pulse Oximetry 98 09/22/23 06:01 Temperature 36.9 C 09/22/23 06:08 Temperature Source Oral 09/22/23 06:08 Pulse 108 H 09/22/23 06:08 Respiratory Rate 18 09/22/23 06:08 Respiratory Effort Normal, Non-Labored 09/22/23 06:05 Blood Pressure 142/108 H 09/22/23 06:08 Blood Pressure Position Sitting 09/22/23 06:08 Pulse Oximetry 98 09/22/23 06:08 Oxygen Delivery Method Room Air 09/22/23 06:08 Oxygen Flow Rate 0 09/22/23 06:01 Pain Level 10 09/22/23 06:08
[2023-09-22 06:27] LABS: Abs Immature Grans 0.03 10^3/uL (0.0-0.06); Absolute Basophil Count 0.04 10^3/uL (0.0-0.2); Absolute Eosinophil Count 0.17 10^3/uL (0.0-0.7); Absolute Lymphocyte Count 1.81 10^3/uL (1.2-3.4); Absolute Monocyte Count 0.76 10^3/uL (0.1-0.8); Absolute Neutrophil Count 6.46 10^3/uL (1.2-6.7); Basophils % 0.4; Eosinophils % 1.8; HCT 41.9 % (36.0-46.0); HGB 13.3 g/dL (11.2-15.7); Immature Grans % 0.3; Lymphocytes % 19.5; MCH 23.4 pg (27.0-33.0); MCHC 31.7 % (32.0-36.0); MCV 74 fL (80-95); MPV 11.9 fL (8.0-11.0); Monocytes % 8.2; Neutrophils % 69.8; Platelet Count 263 10^3/uL (130-400); RBC 5.68 10^6/uL (3.93-5.22); RDW 14.4 % (11.7-14.6); RDW-SD 38.3 fL; WBC 9.27 10^3/uL (4.4-10.8)
[2023-09-22] MEDS: Normal Saline 1,000 ML 1000 ML IV (06:34)
[2023-09-22] MEDS: Ondansetron 4 MG/2 ML VIAL IVP (06:37)
[2023-09-22 06:42] LABS: ALT 30 U/L (14-59); AST 15 U/L (15-37); Alkaline Phosphatase 99 U/L (46-116); Anion Gap 10.9 mmol/L (3-11); BUN 6 mg/dL (7-18); Bilirubin, Total 0.7 mg/dL (0.2-1.0); CO2 23.1 mmol/L (21.0-32.0); CREATININE 0.9 mg/dL (0.55-1.02); Calcium 9.5 mg/dL (8.5-10.1); Chloride 103 mmol/L (98-107); Estimated GFR 90.42 (mL/min/1.73m2); Glucose 144 mg/dL (74-106); Lipase 20 U/L (16-77); Potassium 3.7 mmol/L (3.5-5.1); Sodium 137 mmol/L (136-145); Total Protein 8.1 g/dL (6.4-8.2)
[2023-09-22 07:01] LABS: Diff Comment RBC Morph Reviewed; Microcytosis 1+
[2023-09-22] MEDS: Ondansetron O.D.T. 4 MG TABEF, 3 TABS/BTL PO (07:38)
[2023-09-22 07:54] LABS: C Diff PCR Negative (Negative)
[2023-09-22 08:08] VITALS: BP 129/58; PULSE 75; RESP 16; TEMP 37.2; O2SAT 99
[2023-09-22 23:25] LABS: Campylobacter PCR Negative (Negative); Salmonella PCR Negative (Negative); Shiga Toxin PCR Negative (Negative); Shigella/Enteroinvasive Ecoli Negative (Negative)
== END 2023-09-22 08:10 | disposition home or self-care (01) ==
PROVIDERS: Emergency Provider Student in an Organized Health Care Education/Training Program; PCP Nurse Practitioner Family
DX: R11.2 Nausea with vomiting, unspecified (principal); R19.7 Diarrhea, unspecified; E11.22 Type 2 diabetes mellitus with diabetic chronic kidney disease; I12.9 Hypertensive chronic kidney disease with stage 1 through stage 4 chronic kidney disease, or unspecified chronic kidney disease; N18.1 Chronic kidney disease, stage 1
CPT/HCPCS: 36415; 80053; 83690; 87329; 87493; 87505; 96361; 96374; 99284; 85025; 87177; J2405

== ENCOUNTER 2023-10-20 22:27 | Outpatient (REF) | payer MEDICAID, SELFPAY ==
[2023-10-20 21:46] LABS: ALT 30 U/L (14-59); AST 18 U/L (15-37); Albumin 4.2 g/dL (3.4-5.0); Alkaline Phosphatase 97 U/L (46-116); Anion Gap 10.5 mmol/L (3-11); BUN 8 mg/dL (7-18); Bilirubin, Total 0.3 mg/dL (0.2-1.0); CO2 25.5 mmol/L (21.0-32.0); CREATININE 0.7 mg/dL (0.55-1.02); Calcium 9.8 mg/dL (8.5-10.1); Chloride 103 mmol/L (98-107); Estimated GFR 122.25 (mL/min/1.73m2); Glucose 90 mg/dL (74-106); Potassium 4.4 mmol/L (3.5-5.1); Sodium 139 mmol/L (136-145); Total Protein 7.6 g/dL (6.4-8.2)
== END 2023-10-20 22:28 | disposition home or self-care (01) ==
LOC: LBN 22:27
PROVIDERS: PCP Nurse Practitioner Family; Visit Provider Physician Assistant Medical
DX: N18.9 Chronic kidney disease, unspecified (principal); N89.8 Other specified noninflammatory disorders of vagina
CPT/HCPCS: 80053; 87480; 87510; 87660

== ENCOUNTER 2023-11-06 05:05 | Emergency (ER) | payer MEDICAID, SELFPAY ==
[2023-11-06 05:22] VITALS: BP 141/98; PULSE 110; RESP 16; TEMP 36.7; O2SAT 99
--- NOTE | 2023-11-06 05:30 | ED.GENADUL_ITS ---
Discharge Plan Disposition Patient Disposition: Home Condition: Good Discharge Details Clinical Impression: Constipation Primary Care Provider: Niyah Serna ED Provider: Douglas Gamez Home Meds and New Rx's Prescriptions: New Fleet Enema 19-7 gram/118 mL enema 197 ml KS ONCE Qty: 532 0RF No Action melatonin 3 mg tablet 5 mg PO HS labetalol 100 mg tablet 100 mg PO QAM Patient Comments: 1/2 Tab QAM Ozempic 0.25 mg or 0.5 mg (2 mg/3 mL) pen injector 0.25 mg subcut QWEEK Patient Comments: takes Qmonday Rx Instructions: for 4 weeks medroxyprogesterone 150 mg/mL syringe 150 mg IM [id number] Qty: 1 5RF albuterol sulfate [Ventolin HFA] 90 mcg/actuation HFA aerosol inhaler 2 puff inhalation Q6H PRN quetiapine 25 mg tablet 25 mg PO BID buspirone 7.5 mg tablet 7.5 mg PO BID docusate sodium 100 mg capsule 100 mg PO DAILY lidocaine 4 % kit 1 ea topical PRN PRN pantoprazole 40 mg Tablet,Delayed Release (Dr/Ec) 40 mg PO QAM clonidine HCl 0.2 mg tablet 0.2 mg PO QHS sertraline 25 mg tablet 25 mg PO DAILY diphenoxylate-atropine [Lomotil] 2.5-0.025 mg tablet 1 tab PO DAILY Qty: 10 0RF Hold Instructions: pt now constipated Discharge Instructions Instructions: Constipation (ED) Additional Instructions: At this time you have mild constipation. Please continue to take your home MiraLAX and drink 10 to 12 cups of fluid per day. When you get home, please drink the bottles of magnesium citrate followed briskly by 6 to 7 cups of water or electrolyte beverage. You will experience some cramping and some nausea from this, but this should help clean out your constipation. Additionally we have sent a prescription for Fleet enema to your pharmacy to use if you still need additional support. If you notice any worsening of your symptoms, or any new symptoms such as vomiting, diarrhea, fever, chills, shortness of breath, chest pain, numbness, weakness, or fainting , please return immediately to the emergency department for reevaluation. Please follow up with your primary care provider as soon as possible for reassessment and reevaluation. As always, it was a pleasure participating in your medical care today. Referrals: Niyah Serna [Primary Care Provider] - Medical Decision Making 28-year-old female with a past medical history of CKD stage I, hypertension, mild mental slowing, borderline personality disorder, irritable bowel syndrome, bipolar type II, PTSD, ADHD, presents today for evaluation of constipation. Patient had diarrhea about a month ago, she was started on Lomotil. This solves her diarrhea problem, and eventually led to a constipation problem. While her history seems to oscillate, she is states that she is not had a soft bowel movement for few weeks, and feels like she has not pooped for few days at the least. She admits to mild cramping in the lower abdomen. She states that it feels like I have hard balls trying to poop out. She denies vomiting or diarrhea. She did take some MiraLAX at home and this made her nausea worsen and so she came in for an alternative. She has not performed an enema stating that she is not able to afford it at this time. She denies any other complaints. Exam demonstrates well-appearing female, no guarding or rebound, no signs of an acute surgical abdomen whatsoever. No pain to McBurney's point, negative Mortensen sign. Signs and symptoms at this time appear clinically consistent with mild constipation. We will provide the patient with magnesium citrate for home use, as well as a prescription for home enemas. Did discuss expectant symptoms when taking the magnesium citrate, and the patient understands. I have extensively reviewed the treatment plan and discharge instructions with the patient. I have addressed all patient concerns at this time. The patient was made aware of what symptoms to monitor for that would warrant a return to the emergency department. Discussed the plan with the patient, they demonstrate verbal understanding and agreement with our assessment and plan at this time. The documentation in this chart was dictated using [employer] dictation software. Please excuse any dictation errors. HPI General Date/Time Provider Initiated Documentation: 11/06/23 05:13 . HPI Narrative: 28-year-old female with a past medical history of CKD stage I, hypertension, mild mental slowing, borderline personality disorder, irritable bowel syndrome, bipolar type II, PTSD, ADHD, presents today for evaluation of constipation. Patient had diarrhea about a month ago, she was started on Lomotil. This solves her diarrhea problem, and eventually led to a constipation problem. While her history seems to oscillate, she is states that she is not had a soft bowel movement for few weeks, and feels like she has not pooped for f ew days at the least. She admits to mild cramping in the lower abdomen. She states that it feels like I have hard balls trying to poop out. She denies vomiting or diarrhea. She did take some MiraLAX at home and this made her nausea worsen and so she came in for an alternative. She has not performed an enema stating that she is not able to afford it at this time. She denies any other complaints. Related Data Home Medications Medication Instructions Recorded Confirmed labetalol 100 mg tablet 100 mg PO QAM 09/25/21 11/06/23 melatonin 3 mg tablet 5 mg PO HS 09/25/21 11/06/23 pantoprazole 40 mg tablet,delayed 40 mg PO QAM 11/22/22 11/06/23 release clonidine HCl 0.2 mg tablet 0.2 mg PO QHS 02/15/23 11/06/23 albuterol sulfate 90 mcg/actuation 2 puff inhalation Q6H PRN 03/24/23 11/06/23 aerosol inhaler (Ventolin HFA) buspirone 7.5 mg tablet 7.5 mg PO BID 03/24/23 11/06/23 docusate sodium 100 mg capsule 100 mg PO DAILY 03/24/23 11/06/23 lidocaine 4 % topical patch, kit 1 ea topical PRN PRN 03/24/23 11/06/23 with alcohol pads quetiapine 25 mg tablet 25 mg PO BID 03/24/23 11/06/23 medroxyprogesterone 150 mg/mL 150 mg IM [id number] #1 mL 08/11/23 11/06/23 intramuscular syringe semaglutide 0.25 mg or 0.5 mg (2 0.25 mg subcut QWEEK 08/11/23 11/06/23 mg/3 mL) subcutaneous pen injector (Ozempic) diphenoxylate-atropine 2.5 1 tab PO DAILY #10 tabs 09/22/23 11/06/23 mg-0.025 mg tablet (Lomotil) sertraline 25 mg tablet 25 mg PO DAILY 09/22/23 11/06/23 sodium phosphates 19 gram-7 197 ml KS ONCE #532 mL 11/06/23 gram/118 mL enema (Fleet Enema) Previous Rx's Medication Instructions Recorded medroxyprogesterone 150 mg/mL 150 mg IM [id number] #1 mL 08/11/23 intramuscular syringe diphenoxylate-atropine 2.5 1 tab PO DAILY #10 tabs 09/22/23 mg-0.025 mg tablet (Lomotil) sodium phosphates 19 gram-7 197 ml KS ONCE #532 mL 11/06/23 gram/118 mL enema (Fleet Enema) Allergies Allergy/AdvReac Type Severity Reaction Status Date / Time fluticasone Allergy Severe unknown Verified 11/06/23 05:19 [From Flovent HFA] fluoxetine Allergy Intermediate Verified 11/06/23 05:19 ibuprofen Allergy Intermediate vomiting Verified 11/06/23 05:19 lisinopril Allergy Intermediate unknown Verified 11/06/23 05:19 naproxen [From Aleve] Allergy Intermediate vomiting Verified 11/06/23 05:19 paroxetine HCl [From Paxil] Allergy Intermediate Hives Verified 11/06/23 05:19 risperidone [From Risperdal] Allergy Intermediate Hives Verified 11/06/23 05:19 sertraline Allergy Intermediate Verified 11/06/23 05:19 NSAIDS (Non-Steroidal Allergy Due to Verified 11/06/23 05:19 Anti-Inflamma prior kidney damage acetaminophen AdvReac Nausea Unverified 11/06/23 05:19 amoxicillin AdvReac Nausea Verified 11/06/23 05:19 dark sodas Allergy Severe Uncoded 11/06/23 05:19 seafood Allergy Intermediate unknown Uncoded 11/06/23 05:19 enviornmental Allergy Mild sneezing Uncoded 11/06/23 05:19 General Stated Complaint: Abd Prob MARY KAY: 4 Review of Systems All systems reviewed & are unremarkable except as noted in HPI and below PFSH All Active Problems Constipation (Acute) Breakthrough bleeding on depo provera (Acute) Encounter for Depo-Provera contraception (Acute) Since 2017. Nicotine dependence (Acute) Contraception, generic surveillance (Acute) Hx of OCPs, Nexplanon, DepoProvera. 02/2023 Norethindrone 0.35mg till 05/2023. Resumed DepoProvera. 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 Hypertrophy of tonsils and adenoids Suicidal ideation Bipolar 2 disorder RBC microcytosis Vitamin D deficiency Steatosis of liver Back pain Dysuria Abdominal pain History of allergic reaction Hemolytic uremic syndrome PTSD (post-traumatic stress disorder) Mesenteric lymphadenitis Drug abuse, episodic use SASHA (stress urinary incontinence, female) Pain, dental Blood in stool History of mastoiditis Jaw pain TMJ tenderness, left Otalgia, right ear BMI 40.0-44.9, adult Overactive bladder (02/09/18) Generalized headaches (12/31/16) Depression (12/31/16) Depo-Provera contraceptive status (09/13/17) Depo-Provera contraception since 08/11/2017. Patient is using the Depo- Provera for menstrual cycle control. ADHD (attention deficit hyperactivity disorder) (12/31/16) Surgical History History of colonoscopy (~06/2022) Hx of tooth extraction History of kidney surgery Social History Smoking/Tobacco Use Status: Former Tobacco Use Quit Date: 11/27/22 Smoking risk assessment performed?: Yes Alcohol Intake: former Drug use: Current Sobriety Substance use type: marijuana Housing: homeless Sexually active: Yes (female partner only now(May 2022). Has never had intercourse) Do you think of yourself as: lesbian/cash/homosexual What is your relationship status?: never Panel score (0-1 are the most socially isolated patients): 0 Do you feel safe at home: Yes Do you feel safe in your relationship?: Yes Additional Social history: pt is staying at the [facility] at the moment due to being homeless, unable to afford enema. Female Reproductive History Menstrual control method: progesterone injection History History 0 Para Hx # Term Pregnancies Multiple births Hx # Pregnancies Ectopic pregnancies AB induced Hx Number of Living Children AB spontaneous Exam Narrative Exam Narrative: 1.Const: Well-nourished, Well-developed, appearing stated age 2.Eyes: PERRL, no conjunctival injection, and symmetrical lids. 3.ENT: Atraumatic external nose and ears. Moist MM. Neck: Symmetric, trachea midline, No thyromegaly. 4.CVS: +S1/S2, No murmurs or gallops. Peripheral pulses 2+ and equal in all extremities. Brisk capillary refill in all extremities. 5.RESP: Unlabored respiratory effort. Clear to auscultation bilaterally. No wheezes rales or rhonchi 6.GI: Soft, Nontender/Nondistended, No hepatosplenomegaly. No guarding or rebound. No pain to McBurney's point, negative Mortensen sign 7.MSK: Normocephalic/Atraumatic, Extremities w/o deformity or ttp No cyanosis or clubbing, Normal movement of all extremities 8.Skin: Warm, Dry. No rashes or lesions. 9.Neuro: watch inspector final movement II-XII grossly intact. Sensation grossly intact, no focal neurologic deficits. 10.Psych: (AAO) x3. Appropriate mood and affect Course Vital Signs Vital signs: Vital Signs Temperature 36.7 C 11/06/23 05:22 Pulse 110 H 11/06/23 05:22 Respiratory Rate 16 11/06/23 05:22 Blood Pressure 141/98 H 11/06/23 05:22 Pulse Oximetry 99 11/06/23 05:22 Temperature 36.7 C 11/06/23 05:22 Temperature Source Temporal Artery Scan 11/06/23 05:22 Pulse 110 H 11/06/23 05:22 Respiratory Rate 16 11/06/23 05:22 Respiratory Effort Normal, Non-Labored 11/06/23 05:26 Blood Pressure 141/98 H 11/06/23 05:22 Blood Pressure Position Sitting 11/06/23 05:22 Pulse Oximetry 99 11/06/23 05:22 Oxygen Delivery Method Room Air 11/06/23 05:22 Oxygen Flow Rate 0 11/06/23 05:22 Pain Level 10 11/06/23 05:26
== END 2023-11-06 05:40 | disposition home or self-care (01) ==
PROVIDERS: Emergency Provider Student in an Organized Health Care Education/Training Program; PCP Nurse Practitioner Family
DX: K59.00 Constipation, unspecified (principal); I12.9 Hypertensive chronic kidney disease with stage 1 through stage 4 chronic kidney disease, or unspecified chronic kidney disease; N18.1 Chronic kidney disease, stage 1; Z87.891 Personal history of nicotine dependence; Z59.00 Homelessness unspecified
CPT/HCPCS: 99282

== ENCOUNTER 2023-11-11 20:30 | Emergency (ER) | payer MEDICAID, SELFPAY ==
[2023-11-11] VITALS (9 sets, daily range): BP systolic 111–160; BP diastolic 63–125; PULSE 85–127; RESP 22; TEMP 36.9; O2SAT 98
--- NOTE | 2023-11-11 20:30 | RT.EKG_ITS ---
APPROVED REPORT Exam: Resting ECG Reason for Exam: Chest pain Patient Location: E HR:111 bpm ECG Measurements Heart Rate 111 AXIS HI 129 P 27 QRSd 88 QRS 26 QT 322 T 17 QTc 438 Conclusion Sinus tachycardia. There are no significant changes compared to prior EKG performed on 09/02/2023 at 06:31. I have reviewed and interpreted ECG and agree with software generated interpretation.
--- NOTE | 2023-11-11 20:45 | DI.CT_ITS ---
Exam(s) CT HEAD WO EXAM: CT HEAD WO CLINICAL HISTORY: fall, LOC, vomiting. TECHNIQUE: Imaging Protocol: Axial computed tomography images with coronal and sagittal reformatted images were created and reviewed COMPARISON: CT CT HEAD CERVICAL SPINE WO from 12/28/2022 FINDINGS: Ventricles and Extra axial spaces: Normal in size and morphology for the patient's age. Hemorrhage: None. Cerebral parenchyma: Normal. Midline shift: None. Brainstem/Cerebellum: Normal. Calvarium: Normal. Visualized Paranasal sinuses/Mastoids: Clear. Soft Tissues: Unremarkable. IMPRESSION: No acute intracranial process. RADIATION DOSE DELIVERED: 700.72mGy.cm Total DLP DATA REPOSITORY: All CT scans at this facility are submitted to the National Radiology Data Registry (NRDR) Dose Index Registry (DIR) with the [employer] ([employer]). RADIATION OPTIMIZATION: All CT scans at this facility use at least one of these dose optimization te chniques: automated exposure control; mA and/or kV adjustment per patient size (includes targeted exa ms where dose is matched to clinical indication); or iterative reconstruction.
--- NOTE | 2023-11-11 20:58 | ED.GENADUL_ITS ---
HPI General Stated Complaint: AMS/LOC MARY KAY: 3 Date/Time Provider Initiated Documentation: 11/11/23 20:31. HPI Narrative: 28 year-old female presents to ED today by POV/ambulating with a chief complaint of possible syncope at-home, in the shower, with headstrike to back of her head, states he boyfriend said she was unconscious for 10 minutes, and vomiting on awakening with onset around 1999. Quality described as generalized headache, nausea, blurry vision, denies neck pain, no radiation to palpitations, chest pain, shortness of breath, numbness/tingling. Severity is described as moderate. Palliating factors include nothing specific attempted. Provoking factors include nothing specific. Events leading up to the incident/Associated Symptoms: Patient also states that her diabetes has been poorly controlled lately and has been experiencing excessive thirst. Patient not anticoagulated. Related Data Home Medications Medication Instructions Recorded Confirmed labetalol 100 mg tablet 100 mg PO QAM 09/25/21 11/11/23 melatonin 3 mg tablet 5 mg PO HS 09/25/21 11/11/23 pantoprazole 40 mg tablet,delayed 40 mg PO QAM 11/22/22 11/11/23 release clonidine HCl 0.2 mg tablet 0.2 mg PO QHS 02/15/23 11/11/23 albuterol sulfate 90 mcg/actuation 2 puff inhalation Q6H PRN 03/24/23 11/11/23 aerosol inhaler (Ventolin HFA) buspirone 7.5 mg tablet 7.5 mg PO BID 03/24/23 11/11/23 docusate sodium 100 mg capsule 100 mg PO DAILY 03/24/23 11/11/23 lidocaine 4 % topical patch, kit 1 ea topical PRN PRN 03/24/23 11/11/23 with alcohol pads quetiapine 25 mg tablet 25 mg PO BID 03/24/23 11/11/23 medroxyprogesterone 150 mg/mL 150 mg IM [id number] #1 mL 08/11/23 11/11/23 intramuscular syringe semaglutide 0.25 mg or 0.5 mg (2 0.25 mg subcut QWEEK 08/11/23 11/11/23 mg/3 mL) subcutaneous pen injector (Ozempic) diphenoxylate-atropine 2.5 1 tab PO DAILY #10 tabs 11/16/23 01/05/24 mg-0.025 mg tablet (Lomotil) sertraline 25 mg tablet 25 mg PO DAILY 09/22/23 11/11/23 sodium phosphates 19 gram-7 197 ml IA ONCE #532 mL 11/06/23 11/11/23 gram/118 mL enema (Fleet Enema) Previous Rx's Medication Instructions Recorded medroxyprogesterone 150 mg/mL 150 mg IM [id number] #1 mL 08/11/23 intramuscular syringe diphenoxylate-atropine 2.5 1 tab PO DAILY #10 tabs 09/22/23 mg-0.025 mg tablet (Lomotil) sodium phosphates 19 gram-7 197 ml IA ONCE #532 mL 11/06/23 gram/118 mL enema (Fleet Enema) Allergies Allergy/AdvReac Type Severity Reaction Status Date / Time fluticasone Allergy Severe unknown Verified 11/06/23 05:19 [From Flovent HFA] fluoxetine Allergy Intermediate Verified 11/06/23 05:19 ibuprofen Allergy Intermediate vomiting Verified 11/06/23 05:19 lisinopril Allergy Intermediate unknown Verified 11/06/23 05:19 naproxen [From Aleve] Allergy Intermediate vomiting Verified 11/06/23 05:19 paroxetine HCl [From Paxil] Allergy Intermediate Hives Verified 11/06/23 05:19 risperidone [From Risperdal] Allergy Intermediate Hives Verified 11/06/23 05:19 sertraline Allergy Intermediate Verified 11/06/23 05:19 NSAIDS (Non-Steroidal Allergy Due to Verified 11/06/23 05:19 Anti-Inflamma prior kidney damage acetaminophen AdvReac Nausea Unverified 11/06/23 05:19 amoxicillin AdvReac Nausea Verified 11/06/23 05:19 dark sodas Allergy Severe Uncoded 11/06/23 05:19 seafood Allergy Intermediate unknown Uncoded 11/06/23 05:19 enviornmental Allergy Mild sneezing Uncoded 11/06/23 05:19 Review of Systems All systems reviewed & are unremarkable except as noted in HPI and below PFSH All Active Problems Constipation (Acute) Breakthrough bleeding on depo provera (Acute) Encounter for Depo-Provera contraception (Acute) Since 2017. Nicotine dependence (Acute) Contraception, generic surveillance (Acute) Hx of OCPs, Nexplanon, DepoProvera. 02/2023 Norethindrone 0.35mg till 05/2023. Resumed DepoProvera. 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 Hypertrophy of tonsils and adenoids Suicidal ideation Bipolar 2 disorder RBC microcytosis Vitamin D deficiency Steatosis of liver Back pain Dysuria Abdominal pain History of allergic reaction Hemolytic uremic syndrome PTSD (post-traumatic stress disorder) Mesenteric lymphadenitis Drug abuse, episodic use SASHA (stress urinary incontinence, female) Pain, dental Blood in stool History of mastoiditis Jaw pain TMJ tenderness, left Otalgia, right ear BMI 40.0-44.9, adult Overactive bladder (02/09/18) Generalized headaches (12/31/16) Depression (12/31/16) Depo-Provera contraceptive status (09/13/17) Depo-Provera contraception since 08/11/2017. Patient is using the Depo- Provera for menstrual cycle control. ADHD (attention deficit hyperactivity disorder) (12/31/16) Surgical History History of colonoscopy (~06/2022) Hx of tooth extraction History of kidney surgery Social History Smoking/Tobacco Use Status: Former Tobacco Use Quit Date: 11/27/22 Smoking risk assessment performed?: Yes Alcohol Intake: former Drug use: Current Sobriety Substance use type: marijuana Housing: homeless Sexually active: Yes (female partner only now(May 2022). Has never had intercourse) Do you think of yourself as: lesbian/cash/homosexual What is your relationship status?: never Panel score (0-1 are the most socially isolated patients): 0 Do you feel safe at home: Yes Do you feel safe in your relationship?: Yes Additional Social history: pt is staying [facility] [place] at the moment due to being homeless, unable to afford enema. Female Reproductive History Menstrual control method: progesterone injection History History 0 Para Hx # Term Pregnancies Multiple births Hx # Pregnancies Ectopic pregnancies AB induced Hx Number of Living Children AB spontaneous Exam Narrative Exam Narrative: GENERAL APPEARANCE: Well-nourished, non-toxic, awake and alert, atraumatic, no acute distress. SKIN: Warm, pink, dry, intact, without rashes/lesions/ulcerations. HEAD: Normocephalic, atraumatic, normal hair distribution for gender/age, no Kaiser's sign, no periorbital ecchymosis, no posterior scalp hematoma EYES: Pupils PERRLA, EOMs intact without nystagmus, normal conjunctiva, no exudates on lids/lashes. ENT: Nares patent, no circumoral cyanosis, no facial swelling NECK: Supple, trachea midline, painless cervical ROM, no midline vertebral tenderness/crepitus/step-offs LUNGS/CHEST: Lungs CTA bilaterally- no rhonchi/rales/wheezes diffusely, non- labored respirations, normal A/P diameter, symmetrical expansion, no chest wall deformity HEART (CV/PV): Regular rate and rhythm without murmur, no peripheral edema, no JVD. ABDOMEN: Soft, non-distended, no guarding. MSK: Normal ROM, no swelling/deformity to bilateral UEs or LEs, moving all extremities without weakness, no cyanosis, spine midline without tenderness, normal curvature. NEURO: Mental Status AAOx4 - alert to person, place, time, events No facial droop, no forehead involvement, no dysmetria with [id number] Motor: No focal weakness - strength 5/5 in bilateral UEs and LEs, proximal and distal, symmetric. Sensory: sensation intact to light touch globally. Gait normal: patient ambulated without ataxia into ED room. PSYCH: euthymic, cooperative, pleasant, appropriate speech Course Vital Signs Vital signs: Vital Signs Temperature 36.9 C 01/05/24 20:33 Pulse 127 H 11/11/23 20:33 Respiratory Rate 22 11/11/23 20:33 Blood Pressure 157/125 H 11/11/23 20:33 Pulse Oximetry 98 11/11/23 20:33 Temperature 36.9 C 11/11/23 20:33 Temperature Source Oral 11/11/23 20:33 Pulse 127 H 11/11/23 20:33 Respiratory Rate 22 11/11/23 20:40 Respiratory Effort Normal, Non-Labored 11/11/23 20:40 Respiratory Depth Normal 11/11/23 20:40 Respiratory Pattern Normal 11/11/23 20:40 Blood Pressure 157/125 H 11/11/23 20:33 Blood Pressure Position Sitting 11/11/23 20:33 Pulse Oximetry 98 11/11/23 20:33 Oxygen Delivery Method Room Air 11/11/23 20:33 Oxygen Flow Rate 0 11/11/23 20:33 Pain Level 0 11/11/23 20:33 Medical Decision Making This dictation utilizes [id number] dictation software and may contain unedited grammatical errors. 28 y/o F presents to ED today with a chief complaint of possible syncope at 2000 in the shower, headstrike with +LOC for 10 minutes, post-event vomiting x1, and poorly controlled diabetes. Patient denies palpitations prior to fall, denies shortness of breath, denies vertigo. Patients' medical history: BPD, TMJ syndrome, DM, CKD. Family and social history: noncontributory. Pertinent exam findings / vital signs include neuro intact, lungs CTA, mild tachycardia, benign abdomen. Differential / pathologies of concern include ICH, concussion syndrome, ACS, Syncope, DKA. Diagnostic studies of: -CBC, CMP, Lipase, VBG, UA, Mg++, Trop I (+3hr value), BNP, EKG, CT Head wo Contrast. -initial VBG pH 7.54, repeating with new blood as it may have been bad sample per RN on first IV try, pending at sign-out -CT Head negative -UA no glucose spilling -glucose 214 on CMP -anion gap benign, rehydrating -initial trop negative -EKG without STEMI or signs of ischemia -repeat trop pending at sign-out Interventions of: -1L NS, IV Tylenol. ED Course/Assessment/Plan: 28-year-old female well-known to the department presents with possible syncope in the shower around 8 PM this evening, hit the back of her head and states she was unconscious for 10 minutes, appears neurologically intact. Has no signs of major head trauma, CT head is negative for any intracranial bleeding or pathology, she does endorse polydipsia and does have trouble controlling her diabetes. Plan to rule out DKA as a possible cause of her fall as well as ACS with 3-hour troponin value. Patient signed out to oncoming provider Dr. Melgar with repeat troponin pending. Adele just concussion syndrome. Findings not consistent with ICH, Patient is neurologically intact. Disposition of Concussion Syndrome. Patient verbalized understanding of the plan and return to ED criteria and engaged in shared decision making. Medical Records Medical records reviewed: Yes I reviewed the patient's medical records. Imaging Data Radiologic Study: Imaging: CT Scan My impression: No ICH or intracranial pathology Radiologist's impression: vRAD read pending at sign-out Lab Data Lab results reviewed: Yes I reviewed the patient's lab results. Labs: Laboratory Tests Range/Units 11/11/23 11/11/23 11/11/23 20:51 21:24 21:36 WBC Cancelled 11.83 H RBC Cancelled 5.37 H Hgb Cancelled 12.4 Hct Cancelled 38.9 MCV Cancelled 72 L MCH Cancelled 23.1 L MCHC Cancelled 31.9 L RDW Cancelled 14.7 H Plt Count Cancelled 253 MPV Cancelled 12.6 H Immature Gran % Cancelled 0.5 Neutrophils % Cancelled 69.2 Band Neutrophils % Cancelled Lymphocytes % Cancelled 20.5 Atypical Lymphs % Cancelled Monocytes % Cancelled 8.0 Eosinophils % Cancelled 1.3 Basophils % Cancelled 0.5 Metamyelocytes % Cancelled Myelocytes % Cancelled Promyelocytes % Cancelled Other Cells % Cancelled Nucleated RBC % Cancelled 0.0 Absolute Neutrophils Cancelled 8.19 H Absolute Lymphocytes Cancelled 2.43 Absolute Monocytes Cancelled 0.95 H Absolute Eosinophils Cancelled 0.15 Absolute Basophils Cancelled 0.06 RBC Morphology Cancelled See Below Polychromasia Cancelled Hypochromasia Cancelled Poikilocytosis Cancelled Basophilic Stippling Cancelled Anisocytosis Cancelled Microcytosis Cancelled 1+ Macrocytosis Cancelled Spherocytes Cancelled Tear Drop Cells Cancelled Ovalocytes Cancelled Stomatocytes Cancelled [place] Bodies Cancelled [place] Cells/Echinocytes Cancelled Acanthocytes (Spur) Cancelled Schistocytes Cancelled VBG pH (7.31-7.41) 7.54 H VBG pCO2 (41-51) mmHg 24 L VBG pO2 mmHg 97 VBG HCO3 (23-28) mmol/L 21 L VBG Total CO2 (24-29) mmol/L 18 L VBG O2 Saturation % 99 VBG Base Excess (-2-3) mmol/L -2 Sodium Cancelled Potassium Cancelled Chloride Cancelled Carbon Dioxide Cancelled Anion Gap Cancelled BUN Cancelled Creatinine Cancelled Est GFR (CKD-EPI 2020) Cancelled Glucose Cancelled Calcium Cancelled Magnesium Cancelled Total Bilirubin Cancelled AST Cancelled ALT Cancelled Alkaline Phosphatase Cancelled Troponin I Cancelled NT-Pro-B Natriuret Pep Cancelled Total Protein Cancelled Albumin Cancelled Lipase Cancelled Urine Color (Yellow) Urine Clarity (Clear) Urine pH (5-8) Ur Specific [place] (1.005-1.025) Urine Protein (Negative) mg/dL Urine Ketones (Negative) mg/dL Urine Blood (Negative) Urine Nitrite (Negative) Urine Bilirubin (Negative) Urine Urobilinogen (Up to 0.2) mg/dL Ur Leukocyte Esterase (Negative) Urine RBC (0-2) HPF Urine WBC (0-5) HPF Ur Epithelial Cells (Negative) HPF Urine Crystals (Negative) HPF Urine Bacteria (Negative) HPF Urine Mucus (Negative) Ur Culture Indicated? Urine Glucose (Negative) mg/dL Range/Units 11/11/23 11/11/23 21:45 21:54 WBC RBC Hgb Hct MCV MCH MCHC RDW Plt Count MPV Immature Gran % Neutrophils % Band Neutrophils % Lymphocytes % Atypical Lymphs % Monocytes % Eosinophils % Basophils % Metamyelocytes % Myelocytes % Promyelocytes % Other Cells % Nucleated RBC % Absolute Neutrophils Absolute Lymphocytes Absolute Monocytes Absolute Eosinophils Absolute Basophils RBC Morphology Polychromasia Hypochromasia Poikilocytosis Basophilic Stippling Anisocytosis Microcytosis Macrocytosis Spherocytes Tear Drop Cells Ovalocytes Stomatocytes [place] Bodies Ben Cells/Echinocytes Acanthocytes (Spur) Schistocytes VBG pH (7.31-7.41) VBG pCO2 (41-51) mmHg VBG pO2 mmHg VBG HCO3 (23-28) mmol/L VBG Total CO2 (24-29) mmol/L VBG O2 Saturation % VBG Base Excess (-2-3) mmol/L Sodium 136 Potassium 3.6 Chloride 101 Carbon Dioxide 23.3 Anion Gap 11.7 H BUN 10 Creatinine 0.8 Est GFR (CKD-EPI 2020) 104.15 Glucose 214 H Calcium 8.9 Magnesium 1.9 Total Bilirubin 0.3 AST 8 L ALT 23 Alkaline Phosphatase 83 Troponin I < 50 NT-Pro-B Natriuret Pep Total Protein 7.0 Albumin 3.4 Lipase 28 Urine Color (Yellow) Yellow Urine Clarity (Clear) Clear Urine pH (5-8) 7.0 Ur Specific Stre[place] (1.005-1.025) 1.025 Urine Protein (Negative) mg/dL 100 H Urine Ketones (Negative) mg/dL Negative Urine Blood (Negative) Negative Urine Nitrite (Negative) Negative Urine Bilirubin (Negative) Negative Urine Urobilinogen (Up to 0.2) mg/dL 0.2 Ur Leukocyte Esterase (Negative) Negative Urine RBC (0-2) HPF 0-2 Urine WBC (0-5) HPF 3-5 Ur Epithelial Cells (Negative) HPF Moderate Urine Crystals (Negative) HPF Negative Urine Bacteria (Negative) HPF Negative Urine Mucus (Negative) Moderate Ur Culture Indicated? No Urine Glucose (Negative) mg/dL Negative Quality:SDOH Health Related Social Needs: Health related social needs inadequate housing Discharge Plan Discharge Details Chief Complaint: AMS/LOC Primary Care Provider: Niyah Serna ED Provider: Douglas Keith Home Meds and New Rx's Prescriptions: No Action melatonin 3 mg tablet 5 mg PO HS labetalol 100 mg tablet 100 mg PO QAM Patient Comments: 1/2 Tab QAM Ozempic 0.25 mg or 0.5 mg (2 mg/3 mL) pen injector 0.25 mg subcut QWEEK Patient Comments: takes Qmonday Rx Instructions: for 4 weeks medroxyprogesterone 150 mg/mL syringe 150 mg IM [id number] Qty: 1 5RF albuterol sulfate [Ventolin HFA] 90 mcg/actuation HFA aerosol inhaler 2 puff inhalation Q6H PRN quetiapine 25 mg tablet 25 mg PO BID buspirone 7.5 mg tablet 7.5 mg PO BID docusate sodium 100 mg capsule 100 mg PO DAILY lidocaine 4 % kit 1 ea topical PRN PRN pantoprazole 40 mg Tablet,Delayed Release (Dr/Ec) 40 mg PO QAM clonidine HCl 0.2 mg tablet 0.2 mg PO QHS Fleet Enema 19-7 gram/118 mL enema 197 ml IA ONCE Qty: 532 0RF sertraline 25 mg tablet 25 mg PO DAILY diphenoxylate-atropine [Lomotil] 2.5-0.025 mg tablet 1 tab PO DAILY Qty: 10 0RF Hold Instructions: pt now constipated
[2023-11-11 21:29] LABS: BE (Venous) -2 mmol/L (-2-3); HCO3 (Venous) 21 mmol/L (23-28); O2 Sat (Venous) 99 %; TCO2 (Venous) 18 mmol/L (24-29); pCO2 (Venous) 24 mmHg (41-51); pH (Venous) 7.54 (7.31-7.41); pO2 (Venous) 97 mmHg
[2023-11-11 21:45] LABS: Abs Immature Grans 0.06 10^3/uL (0.0-0.06); Absolute Basophil Count 0.06 10^3/uL (0.0-0.2); Absolute Eosinophil Count 0.15 10^3/uL (0.0-0.7); Absolute Lymphocyte Count 2.43 10^3/uL (1.2-3.4); Absolute Monocyte Count 0.95 10^3/uL (0.1-0.8); Basophils % 0.5; Eosinophils % 1.3; HCT 38.9 % (36.0-46.0); HGB 12.4 g/dL (11.2-15.7); Immature Grans % 0.5; Lymphocytes % 20.5; MCH 23.1 pg (27.0-33.0); MCHC 31.9 % (32.0-36.0); MCV 72 fL (80-95); MPV 12.6 fL (8.0-11.0); Neutrophils % 69.2; Platelet Count 253 10^3/uL (130-400); RBC 5.37 10^6/uL (3.93-5.22); RDW 14.7 % (11.7-14.6); RDW-SD 38.5 fL; WBC 11.83 10^3/uL (4.4-10.8)
[2023-11-11 21:47] LABS: Absolute Neutrophil Count 8.19 10^3/uL (1.2-6.7)
[2023-11-11 21:55] LABS: Diff Comment RBC Morph Reviewed
[2023-11-11 21:56] LABS: Microcytosis 1+
[2023-11-11 21:59] LABS: Bilirubin Negative (Negative); Blood Negative (Negative); Clarity Clear (Clear); Glucose Negative (Negative); Ketones Negative (Negative); Leukocyte Esterase Negative (Negative); Nitrite Negative (Negative); Specific Gravity 1.025 (1.005-1.025); Urobilinogen 0.2 mg/dL (Up to 0.2)
[2023-11-11 22:05] LABS: ALT 23 U/L (14-59); AST 8 U/L (15-37); Albumin 3.4 g/dL (3.4-5.0); Alkaline Phosphatase 83 U/L (46-116); Anion Gap 11.7 mmol/L (3-11); BUN 10 mg/dL (7-18); Bilirubin, Total 0.3 mg/dL (0.2-1.0); CO2 23.3 mmol/L (21.0-32.0); CREATININE 0.8 mg/dL (0.55-1.02); Calcium 8.9 mg/dL (8.5-10.1); Chloride 101 mmol/L (98-107); Estimated GFR 104.15 (mL/min/1.73m2); Glucose 214 mg/dL (74-106); Lipase 28 U/L (16-77); Magnesium 1.9 mg/dL (1.8-2.4); Potassium 3.6 mmol/L (3.5-5.1); Sodium 136 mmol/L (136-145); Troponin I < 50 ng/L (<or=60)
[2023-11-11 22:05] LABS: RBC 0-2 HPF (0-2)
[2023-11-11 22:06] LABS: Bacteria Negative HPF (Negative); C & S Indicated? No; Crystals Negative HPF (Negative); Epithelial Cells Moderate HPF (Negative); Mucus Moderate (Negative)
--- NOTE | 2023-11-11 22:36 | DI.VRAD_ITS ---
PROCEDURE INFORMATION: Exam: CT Head Without Contrast Exam date and time: 11/11/2023 10:05 PM Age: 28 years old Clinical indication: Other: Fall, loc, vomiting TECHNIQUE: Imaging protocol: Computed tomography of the head without contrast. COMPARISON: CT HEAD CERVICAL SPINE WO 12/28/2022 5:01 PM FINDINGS: Brain: Normal. No hemorrhage. Unremarkable white matter. No mass effect. Cerebral ventricles: No ventriculomegaly. Paranasal sinuses: Visualized sinuses are unremarkable. No fluid levels. Mastoid air cells: Visualized mastoid air cells are well aerated. Bones/joints: Unremarkable. No acute fracture. Soft tissues: Unremarkable. IMPRESSION: No acute intracranial abnormality. Dictated and Authenticated by: Jn Demarco MD. Ordering:LIBERTY Cole MD
[2023-11-12] MEDS: Normal Saline 1,000 ML 1000 ML IV (00:16)
[2023-11-12 00:30] LABS: BE (Venous) 1 mmol/L (-2-3); HCO3 (Venous) 25 mmol/L (23-28); O2 Sat (Venous) 94 %; TCO2 (Venous) 23 mmol/L (24-29); pCO2 (Venous) 38 mmHg (41-51); pH (Venous) 7.43 (7.31-7.41); pO2 (Venous) 66 mmHg
[2023-11-12 01:32] LABS: Troponin I < 50 ng/L (<or=60)
[2023-11-12 01:47] VITALS: BP 107/72; PULSE 110; RESP 20; TEMP 36.5; O2SAT 98
--- NOTE | 2023-11-12 01:53 | ED.PROG_ITS ---
Date of service: 11/12/23 Time of Service: 01:53 Medical Decision Making The patient was observed over the course of the early part of the shift without any significant decompensation. Her troponin was negative and a 3-hour interval. She most likely has some mild postconcussive symptoms from falling and hitting her head. The syncope was most likely related to mild environmental injury from the warm shower. The patient will be discharged to follow-up with primary care at her next routine interval with instructions for management of headache and nausea. Recommended primary care follow-up if symptoms or not improving with conservative management. Quality:SDOH Health Related Social Needs: Health related social needs inadequate housing Sign Out Sign Out Data: Sign Out Comment: Pending repeat trop, patient had possible syncope around 1999 today, struck back of head, negative Ct, no signs of major trauma. Reports poorly controlled diabetes but no DKA on labs today. Likely concussion syndrome, dc home. Last updated by Douglas Keith PA at 11/11/23 22:20 Discharge Plan Disposition Patient Disposition: Home Condition: Improving Discharge Details Clinical Impression: Heat collapse, Syncope, non cardiac, Head injury, closed, with concussion Primary Care Provider: Niyah Serna ED Provider: James Melgar Meds and New Rx's Prescriptions: New ondansetron HCl 4 mg tablet 4 mg PO Q8H PRN (Reason: nausea and vomiting) Qty: 10 0RF No Action melatonin 3 mg tablet 5 mg PO HS labetalol 100 mg tablet 100 mg PO QAM Patient Comments: 1/2 Tab QAM Ozempic 0.25 mg or 0.5 mg (2 mg/3 mL) pen injector 0.25 mg subcut QWEEK Patient Comments: takes Qmonday Rx Instructions: for 4 weeks medroxyprogesterone 150 mg/mL syringe 150 mg IM [id number] Qty: 1 5RF albuterol sulfate [Ventolin HFA] 90 mcg/actuation HFA aerosol inhaler 2 puff inhalation Q6H PRN quetiapine 25 mg tablet 25 mg PO BID buspirone 7.5 mg tablet 7.5 mg PO BID docusate sodium 100 mg capsule 100 mg PO DAILY lidocaine 4 % kit 1 ea topical PRN PRN pantoprazole 40 mg Tablet,Delayed Release (Dr/Ec) 40 mg PO QAM clonidine HCl 0.2 mg tablet 0.2 mg PO QHS Fleet Enema 19-7 gram/118 mL enema 197 ml NE ONCE Qty: 532 0RF sertraline 25 mg tablet 25 mg PO DAILY diphenoxylate-atropine [Lomotil] 2.5-0.025 mg tablet 1 tab PO DAILY Qty: 10 0RF Hold Instructions: pt now constipated Discharge Instructions Instructions: Head Injury (ED) Additional Instructions: Your passing out tonight in the shower was most likely a mild heat injury. You have struck your head and likely have sustained a mild concussion. You should expect to have some headaches, nausea, mild dizziness, and fatigue for the next few days while you recover from this injury. You can take 2-3 325 mg acetaminophen tablets every 4-6 hours as needed for symptoms of headache or pa in. You can take 1 ondansetron tablet every 8 hours as needed for symptoms of nausea. Symptoms should be improving over the next 5 to 7 days. You can follow-up with regular primary care doctor for recheck and further management, especially if symptoms not improving with this care plan. Can always return to the ER for any new concerns or sudden changes in health which you feel require emergency medical attention. Discharge Data Discharge Physician: James Melgar
[2023-11-12 01:56] VITALS: BP 107/72; PULSE 98; RESP 19; TEMP 37; O2SAT 98
== END 2023-11-12 02:04 | disposition home or self-care (01) ==
PROVIDERS: Physician Assistant; Emergency Provider Emergency Medicine Emergency Medical Services; PCP Nurse Practitioner Family
DX: S06.0X1A Concussion with loss of consciousness of 30 minutes or less, initial encounter (principal); E11.9 Type 2 diabetes mellitus without complications; R55 Syncope and collapse; Z79.85 Long-term (current) use of injectable non-insulin antidiabetic drugs; Z87.891 Personal history of nicotine dependence; W18.39XA Other fall on same level, initial encounter; Y93.E1 Activity, personal bathing and showering; Y92.018 Other place in single-family (private) house as the place of occurrence of the external cause
CPT/HCPCS: 00123; 80053; 82805; 83690; 93005; 99284; 70450; 81003; 81015; 83735; 83880; 84484; 85025; 93010; J0131

== ENCOUNTER 2023-11-17 22:00 | Emergency (ER) | payer MEDICAID, SELFPAY ==
[2023-11-17] VITALS (18 sets, daily range): BP systolic 105–150; BP diastolic 54–88; PULSE 104–160; RESP 16–27; TEMP 36.6; O2SAT 97
--- NOTE | 2023-11-17 22:00 | RT.EKG_ITS ---
APPROVED REPORT Exam: Resting ECG Reason for Exam: overdose Patient Location: E HR:130 bpm ECG Measurements Heart Rate 130 AXIS AK [id number] P [id number] QRSd 82 QRS 6 QT 308 T -31 QTc 454 Conclusion Atrial flutter with predominant 2:1 AV block...A-rate 250, multiple Ps Abnormal Q suggests anterior infarct...Q >30mS in V2-V4 Physician: sinus tach, intervals normal
[2023-11-17 22:39] LABS: BE (Venous) -1 mmol/L (-2-3); HCO3 (Venous) 24 mmol/L (23-28); O2 Sat (Venous) 72 %; TCO2 (Venous) 22 mmol/L (24-29); pCO2 (Venous) 39 mmHg (41-51); pH (Venous) 7.39 (7.31-7.41); pO2 (Venous) 38 mmHg
[2023-11-17 22:42] LABS: Abs Immature Grans 0.06 10^3/uL (0.0-0.06); Absolute Eosinophil Count 0.11 10^3/uL (0.0-0.7); Absolute Lymphocyte Count 1.79 10^3/uL (1.2-3.4); Absolute Monocyte Count 0.92 10^3/uL (0.1-0.8); Basophils % 0.4; HCT 39.8 % (36.0-46.0); HGB 12.6 g/dL (11.2-15.7); Immature Grans % 0.5; MCH 22.9 pg (27.0-33.0); MCHC 31.7 % (32.0-36.0); MCV 72 fL (80-95); MPV 12.1 fL (8.0-11.0); Monocytes % 8.2; Neutrophils % 73.9; Platelet Count 251 10^3/uL (130-400); RBC 5.51 10^6/uL (3.93-5.22); RDW 14.9 % (11.7-14.6); RDW-SD 38.6 fL; WBC 11.19 10^3/uL (4.4-10.8)
[2023-11-17] MEDS: LORazepam 2 MG/ML VIAL IVP (22:47)
[2023-11-17] MEDS: Normal Saline 1,000 ML 1000 ML IV (22:48)
[2023-11-17 22:52] LABS: Absolute Basophil Count 0.04 10^3/uL (0.0-0.2); Absolute Neutrophil Count 8.27 10^3/uL (1.2-6.7)
[2023-11-17 22:53] LABS: Microcytosis 1+
[2023-11-17 22:54] LABS: Diff Comment RBC Morph Reviewed
[2023-11-17 22:58] LABS: Bilirubin Negative (Negative); Blood Negative (Negative); Clarity Sl Cloudy (Clear); Glucose Negative (Negative); Ketones 15 mg/dL (Negative); Leukocyte Esterase Negative (Negative); Nitrite Negative (Negative); Specific Gravity 1.025 (1.005-1.025); Urobilinogen 0.2 mg/dL (Up to 0.2); pH 6.5 (5-8)
[2023-11-17 23:02] LABS: Acetaminophen < 2 ug/mL (10-30); Salicylate < 2.8 mg/dL (<2.8)
[2023-11-17 23:05] LABS: Epithelial Cells Many HPF (Negative); RBC Negative HPF (0-2); WBC 0-2 HPF (0-5)
[2023-11-17 23:06] LABS: ALT 30 U/L (14-59); AST 12 U/L (15-37); Albumin 3.9 g/dL (3.4-5.0); Alkaline Phosphatase 93 U/L (46-116); Anion Gap 10.8 mmol/L (3-11); BUN 8 mg/dL (7-18); Bilirubin, Total 0.5 mg/dL (0.2-1.0); CO2 24.2 mmol/L (21.0-32.0); CREATININE 0.9 mg/dL (0.55-1.02); Calcium 9.2 mg/dL (8.5-10.1); Chloride 101 mmol/L (98-107); ETHANOL BLOOD 3.4 mg/dL (<10); Estimated GFR 90.42 (mL/min/1.73m2); Glucose 141 mg/dL (74-106); Potassium 3.4 mmol/L (3.5-5.1); Sodium 136 mmol/L (136-145); TSH (W/Ref FT4) 2.22 uIU/mL (0.36-3.74); Total Protein 7.9 g/dL (6.4-8.2); Troponin I < 50 ng/L (< or =60)
[2023-11-17 23:06] LABS: Bacteria Few HPF (Negative); C & S Indicated? No/Sq. Contamination; Casts 0-2 Coarse Granular LPF (Negative); Crystals Negative HPF (Negative); Mucus Trace (Negative)
[2023-11-17 23:16] LABS: *AMPHETAMINES SCREEN URINE Negative (Negative); *BARBITURATES SCREEN URINE Negative (Negative); *BENZODIAZEPINES SCREEN URINE Negative (Negative); Cannabinoids THC Negative (Negative); Cocaine Screen,Urine Negative (Negative); METHADONE URINE SCREEN Negative (Negative); OPIATES URINE SCREEN Negative (Negative)
[2023-11-17 23:17] LABS: Tricyclic Antidepressants Negative (Negative)
[2023-11-18] VITALS (44 sets, daily range): BP systolic 97–117; BP diastolic 39–75; PULSE 85–118; RESP 12–26; O2SAT 96
--- NOTE | 2023-11-18 00:51 | W.ED.GENAD ---
HPI General Stated Complaint: PsychEval MARY KAY: 2 Date/Time Provider Initiated Documentation: 11/17/23 22:01. HPI Narrative: 28-year-old female with a past medical history of CKD stage I, hypertension, mild mental slowing, borderline personality disorder, irritable bowel syndrome, bipolar type II, PTSD, ADHD presents today for overdose. The patient states that she has had significant emotional stressors over the last few days. This evening she perform some mild abrasions on her forearms and a attempt to inflict self-harm. Then tonight between 6 and 8 PM she took 4 packs of her nighttime medications. She did not take anything extra. She denies any alcohol use. She denies any Tylenol or Motrin use. In total she took buspirone 30 mg, clonidine 0.8 mg, quetiapine 100 mg, and melatonin 20 mg. Just prior to arrival she had 1 episode of vomiting. She denies a desire to harm herself now. She states that she regrets her decision. She denies any auditory visual hallucinations. No other complaints at this time. No other modifying factors. Related Data Home Medications Medication Instructions Recorded Confirmed labetalol 100 mg tablet 100 mg PO QAM 09/25/21 11/17/23 melatonin 3 mg tablet 5 mg PO HS 09/25/21 11/17/23 pantoprazole 40 mg tablet,delayed 40 mg PO QAM 11/22/22 11/17/23 release clonidine HCl 0.2 mg tablet 0.2 mg PO QHS 02/15/23 11/17/23 albuterol sulfate 90 mcg/actuation 2 puff inhalation Q6H PRN 03/24/23 11/17/23 aerosol inhaler (Ventolin HFA) buspirone 7.5 mg tablet 7.5 mg PO BID 03/24/23 11/17/23 docusate sodium 100 mg capsule 100 mg PO DAILY 03/24/23 11/17/23 quetiapine 25 mg tablet 25 mg PO BID 03/24/23 11/17/23 semaglutide 0.25 mg or 0.5 mg (2 0.25 mg subcut QWEEK 08/11/23 11/17/23 mg/3 mL) subcutaneous pen injector (Ozempic) diphenoxylate-atropine 2.5 1 tab PO DAILY #10 tabs 09/22/23 11/17/23 mg-0.025 mg tablet (Lomotil) sertraline 25 mg tablet 25 mg PO DAILY 09/22/23 11/17/23 ondansetron HCl 4 mg tablet 4 mg PO Q8H PRN nausea and 11/12/23 11/17/23 vomiting #10 tabs medroxyprogesterone 150 mg/mL 150 mg IM [id number] #1 mL 11/14/23 11/17/23 intramuscular syringe Previous Rx's Medication Instructions Recorded diphenoxylate-atropine 2.5 1 tab PO DAILY #10 tabs 09/22/23 mg-0.025 mg tablet (Lomotil) ondansetron HCl 4 mg tablet 4 mg PO Q8H PRN nausea and 11/12/23 vomiting #10 tabs medroxyprogesterone 150 mg/mL 150 mg IM [id number] #1 mL 11/14/23 intramuscular syringe Allergies Allergy/AdvReac Type Severity Reaction Status Date / Time fluticasone Allergy Severe unknown Verified 11/17/23 22:51 [From Flovent HFA] fluoxetine Allergy Intermediate Verified 11/17/23 22:51 ibuprofen Allergy Intermediate vomiting Verified 11/17/23 22:51 lisinopril Allergy Intermediate unknown Verified 11/17/23 22:51 naproxen [From Aleve] Allergy Intermediate vomiting Verified 11/17/23 22:51 paroxetine HCl [From Paxil] Allergy Intermediate Hives Verified 11/17/23 22:51 risperidone [From Risperdal] Allergy Intermediate Hives Verified 11/17/23 22:51 sertraline Allergy Intermediate Verified 11/17/23 22:51 NSAIDS (Non-Steroidal Allergy Due to Verified 11/17/23 22:51 Anti-Inflamma prior kidney damage acetaminophen AdvReac Nausea Unverified 11/17/23 22:51 amoxicillin AdvReac Nausea Verified 11/17/23 22:51 dark sodas Allergy Severe Uncoded 11/17/23 22:51 seafood Allergy Intermediate unknown Uncoded 11/17/23 22:51 enviornmental Allergy Mild sneezing Uncoded 11/17/23 22:51 Review of Systems All systems reviewed & are unremarkable except as noted in HPI and below PFSH All Active Problems (Updated 11/18/23 @ 06:23 by Douglas Gamez DO) Attempted suicide (Acute) Overdose (Acute) Head injury, closed, with concussion (Acute) Syncope, non cardiac (Acute) Heat collapse (Acute) Constipation (Acute) Breakthrough bleeding on depo provera (Acute) Encounter for Depo-Provera contraception (Acute) Since 2017. Nicotine dependence (Acute) Contraception, generic surveillance (Acute) Hx of OCPs, Nexplanon, DepoProvera. 02/2023 Norethindrone 0.35mg till 05/2023. Resumed DepoProvera. 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 Hypertrophy of tonsils and adenoids Suicidal ideation Bipolar 2 disorder RBC microcytosis Vitamin D deficiency Steatosis of liver Back pain Dysuria Abdominal pain History of allergic reaction Hemolytic uremic syndrome PTSD (post-traumatic stress disorder) Mesenteric lymphadenitis Drug abuse, episodic use SASHA (stress urinary incontinence, female) Pain, dental Blood in stool History of mastoiditis Jaw pain TMJ tenderness, left Otalgia, right ear BMI 40.0-44.9, adult Overactive bladder (02/09/18) Generalized headaches (12/31/16) Depression (12/31/16) Depo-Provera contraceptive status (09/13/17) Depo-Provera contraception since 08/11/2017. Patient is using the Depo-Provera for menstrual cycle control. ADHD (attention deficit hyperactivity disorder) (12/31/16) Surgical History History of colonoscopy (~06/2022) Hx of tooth extraction History of kidney surgery Social History Smoking/Tobacco Use Status: Former Tobacco Use Quit Date: 11/27/22 Smoking risk assessment performed?: Yes Alcohol Intake: former Drug use: Current Sobriety Substance use type: marijuana Housing: homeless Sexually active: Yes (female partner only now(May 2022). Has never had intercourse) Do you think of yourself as: lesbian/cash/homosexual What is your relationship status?: never Panel score (0-1 are the most socially isolated patients): 0 Do you feel safe at home: Yes Do you feel safe in your relationship?: Yes Additional Social history: pt is staying at the [facility] [employer] [facility] at the moment due to being homeless, unable to afford enema. Female Reproductive History Menstrual control method: progesterone injection History History 0 Para Hx # Term Pregnancies Multiple births Hx # Pregnancies Ectopic pregnancies AB induced Hx Number of Living Children AB spontaneous Exam Narrative Exam Narrative: 1.Const: Well-nourished, Well-developed, appearing stated age 2.Eyes: PERRL, no conjunctival injection, and symmetrical lids. 3.ENT: Atraumatic external nose and ears. Moist MM. Neck: Symmetric, trachea midline, No thyromegaly. 4.CVS: +S1/S2, No murmurs or gallops. Peripheral pulses 2+ and equal in all extremities. Brisk capillary refill in all extremities. 5.RESP: Unlabored respiratory effort. Clear to auscultation bilaterally. No wheezes rales or rhonchi 6.GI: Soft, Nontender/Nondistended, No hepatosplenomegaly. No guarding or rebound. 7.MSK: Normocephalic/Atraumatic, Extremities w/o deformity or ttp No cyanosis or clubbing, Normal movement of all extremities. No hyperreflexia or clonus. No leadpipe rigidity. 8.Skin: Warm, Dry. No rashes or lesions. Mild abrasions noted on the right forearm. No lacerations. 9.Neuro: civil engineer II-XII grossly intact. Sensation grossly intact, no focal neurologic deficits. 10.Psych: (AAO) x3. Crying, sad, and somewhat anxious appearing Course Vital Signs Vital signs: Vital Signs Temperature 36.6 C 11/17/23 22:05 Pulse 160 H 11/17/23 22:05 Respiratory Rate 20 11/17/23 22:05 Blood Pressure 150/88 H 11/17/23 22:05 Pulse Oximetry 97 11/17/23 22:05 Temperature 36.6 C 11/17/23 22:05 Temperature Source Skin 11/17/23 22:05 Pulse 115 H 11/18/23 00:01 Pulse 115 H 11/18/23 00:01 Respiratory Rate 21 11/18/23 00:01 Respiratory Effort Normal 11/17/23 22:13 Blood Pressure 113/61 11/18/23 00:01 Blood Pressure Mean 75 11/18/23 00:01 Pulse Oximetry 97 11/17/23 22:05 Oxygen Delivery Method Room Air 11/17/23 22:05 Oxygen Flow Rate 0 11/17/23 22:05 Lab/Test Results Lab/Test Results: Laboratory Tests Range/Units 11/17/23 11/17/23 22:32 22:45 WBC (4.4-10.8) 10^3/uL 11.19 H RBC (3.93-5.22) 10^6/uL 5.51 H Hgb (11.2-15.7) g/dL 12.6 Hct (36.0-46.0) % 39.8 MCV (80-95) fL 72 L MCH (27.0-33.0) pg 22.9 L MCHC (32.0-36.0) % 31.7 L RDW (11.7-14.6) % 14.9 H Plt Count (130-400) 10^3/uL 251 MPV (8.0-11.0) fL 12.1 H Immature Gran % 0.5 Neutrophils % 73.9 Lymphocytes % 16.0 Monocytes % 8.2 Eosinophils % 1.0 Basophils % 0.4 Nucleated RBC % (0.0-0.3) % 0.0 Absolute Neutrophils (1.2-6.7) 10^3/uL 8.27 H Absolute Lymphocytes (1.2-3.4) 10^3/uL 1.79 Absolute Monocytes (0.1-0.8) 10^3/uL 0.92 H Absolute Eosinophils (0.0-0.7) 10^3/uL 0.11 Absolute Basophils (0.0-0.2) 10^3/uL 0.04 RBC Morphology See Below Microcytosis 1+ VBG pH (7.31-7.41) 7.39 VBG pCO2 (41-51) mmHg 39 L VBG pO2 mmHg 38 VBG HCO3 (23-28) mmol/L 24 VBG Total CO2 (24-29) mmol/L 22 L VBG O2 Saturation % 72 VBG Base Excess (-2-3) mmol/L -1 Sodium (136-145) mmol/L 136 Potassium (3.5-5.1) mmol/L 3.4 L Chloride (98-107) mmol/L 101 Carbon Dioxide (21.0-32.0) mmol/L 24.2 Anion Gap (3-11) mmol/L 10.8 BUN (7-18) mg/dL 8 Creatinine (0.55-1.02) mg/dL 0.9 Est GFR (CKD-EPI 2020) (mL/min/1.73m2) 90.42 Glucose (74-106) mg/dL 141 H Calcium (8.5-10.1) mg/dL 9.2 Total Bilirubin (0.2-1.0) mg/dL 0.5 AST (15-37) U/L 12 L ALT (14-59) U/L 30 Alkaline Phosphatase (46-116) U/L 93 Troponin I (< or =60) ng/L < 50 Total Protein (6.4-8.2) g/dL 7.9 Albumin (3.4-5.0) g/dL 3.9 TSH (0.36-3.74) uIU/mL 2.22 Urine Color (Yellow) Yellow Urine Clarity (Clear) Sl Cloudy Urine pH (5-8) 6.5 Ur Specific [place] (1.005-1.025) 1.025 Urine Protein (Negative) mg/dL 30 H Urine Ketones (Negative) mg/dL 15 H Urine Blood (Negative) Negative Urine Nitrite (Negative) Negative Urine Bilirubin (Negative) Negative Urine Urobilinogen (Up to 0.2) mg/dL 0.2 Ur Leukocyte Esterase (Negative) Negative Urine RBC (0-2) HPF Negative Urine WBC (0-5) HPF 0-2 Ur Epithelial Cells (Negative) HPF Many Urine Crystals (Negative) HPF Negative Urine Bacteria (Negative) HPF Few Urine Casts (Negative) LPF 0-2 Coarse Granular Urine Mucus (Negative) Trace Ur Culture Indicated? No/Sq. Contamination Urine Glucose (Negative) mg/dL Negative Salicylates (<2.8) mg/dL < 2.8 Urine Opiates Screen (Negative) Negative Urine Methadone Screen (Negative) Negative Acetaminophen (10-30) ug/mL < 2 Ur Barbiturates Screen (Negative) Negative Ur Tricyclics Screen (Negative) Negative Ur Amphetamines Screen (Negative) Negative U Benzodiazepines Scrn (Negative) Negative Urine Cocaine Screen (Negative) Negative Ur THC Screen (Negative) Negative Ethyl Alcohol (<10) mg/dL 3.4 POC- Test(urine) Negative Medical Decision Making 28-year-old female with a past medical history of CKD stage I, hypertension, mild mental slowing, borderline personality disorder, irritable bowel syndrome, bipolar type II, PTSD, ADHD presents today for overdose. The patient states that she has had significant emotional stressors over the last few days. This evening she perform some mild abrasions on her forearms and a attempt to inflict self-harm. Then tonight between 6 and 8 PM she took 4 packs of her nighttime medications. She did not take anything extra. She denies any alcohol use. She denies any Tylenol or Motrin use. In total she took buspirone 30 mg, clonidine 0.8 mg, quetiapine 100 mg, and melatonin 20 mg. Just prior to arrival she had 1 episode of vomiting. She denies a desire to harm herself now. She states that she regrets her decision. She denies any auditory visual hallucinations. No other complaints at this time. No other modifying factors. Exam demonstrates an anxious, crying, tearful patient. Mildly tachycardic and hypertensive. Exam demonstrates no signs of hyperreflexia, leadpipe rigidity, or somnolence. She is notably anxious appearing, quite tearful. The doses that the patient took relatively benign, the highest concern would be her clonidine. However she is actually hypertensive and tachycardic. We will rehydrate with a liter of fluids, evaluate for negative effects of the overdose, monitor closely and reassess. Family is at bedside. Patient regrets her decision. Will monitor closely while family is at bedside. With the patient's notable anxiety we will give 1 mg of Ativan at this time. 1150 Laboratory workup has returned, no white count of significance. There is a microcytic component noted in her blood work but no significant anemia. VBG demonstrates normal pH. Electrolytes normal. Thyroid function normal, troponin normal, EKG shows normal intervals. Acetaminophen and salicylate levels are normal. Alcohol level negative. Patient's heart rate is in the high 90s to low 100s. Blood pressure remains notably stable. Patient is much more calm now. Discussed the case with toxicology, and at the doses that the patient took and they are concerned that the biggest implicated would be the clonidine over the other medications. However they feel that if she remains hemodynamically stable by 2 AM that this would represent medical clearance secondary to the low doses that she took. We will continue to monitor the patient closely. She denies any suicidal ideations at this time. 4 AM Patient remains hemodynamically stable. Heart rate in the 90s, blood pressure in the 120 systolic. Patient is resting comfortably. No obtundation. We will wait until the morning for mental health reassessment. Patient is medically stabilized and cleared at this point. 6:21 AM Patient has been seen and assessed by mental health. They agree with inpatient admission. Patient will be kept here until placement can be found. Quality:SDOH Health Related Social Needs: Health related social needs inadequate housing Critical Care Time Critical Care Time Critical Care Time: Yes Total Critical Care Time: 45 Attestation: Upon my evaluation, this patient had a high probability of imminent or life-threatening deterioration, which required my direct attention, intervention, and personal management. I have personally provided 45 minutes of critical care time exclusive of time spent on separately billable procedures. Time includes review of laboratory data, radiology results, discussion with consultants, and monitoring for potential decompensation. Interventions were performed as documented. Discharge Plan Discharge Details Chief Complaint: PsychEval Clinical Impression: Overdose, Attempted suicide Primary Care Provider: Niyah Serna ED Provider: Douglas Gamez Home Meds and New Rx's Prescriptions: No Action melatonin 3 mg tablet 5 mg PO HS medroxyprogesterone 150 mg/mL syringe 150 mg IM [id number] Qty: 1 5RF labetalol 100 mg tablet 100 mg PO QAM Patient Comments: 1/2 Tab QAM Ozempic 0.25 mg or 0.5 mg (2 mg/3 mL) pen injector 0.25 mg subcut QWEEK Patient Comments: takes Qmonday Rx Instructions: for 4 weeks albuterol sulfate [Ventolin HFA] 90 mcg/actuation HFA aerosol inhaler 2 puff inhalation Q6H PRN quetiapine 25 mg tablet 25 mg PO BID buspirone 7.5 mg tablet 7.5 mg PO BID docusate sodium 100 mg capsule 100 mg PO DAILY pantoprazole 40 mg Tablet,Delayed Release (Dr/Ec) 40 mg PO QAM clonidine HCl 0.2 mg tablet 0.2 mg PO QHS sertraline 25 mg tablet 25 mg PO DAILY diphenoxylate-atropine [Lomotil] 2.5-0.025 mg tablet 1 tab PO DAILY Qty: 10 0RF Hold Instructions: pt now constipated ondansetron HCl 4 mg tablet 4 mg PO Q8H PRN (Reason: nausea and vomiting) Qty: 10 0RF
--- NOTE | 2023-11-18 07:13 | W.EDPROG ---
Date of service: 11/18/23 Time of Service: 07:00 Medical Decision Making 28-year-old female presented with suicidal ideation. Overdosed on nighttime medications. Medically cleared and awaiting placement. Patient was rescreened and able to contract for safety. Safety plan was made with her staff. They will have a staff member present with patient for the next 7 days. She will be discharged. Quality:SDOH Health Related Social Needs: Health related social needs inadequate housing Sign Out Sign Out Data: Sign Out Comment: Suicidal attempt taking multiple medications. Medically cleared at this point. Mental health has evaluated the patient and recommends inpatient treatment. Patient otherwise stable. Last updated by Douglas Gamez DO at 11/18/23 06:27 Discharge Plan Disposition Patient Disposition: Home Condition: Stable Discharge Details Chief Complaint: PsychEval Clinical Impression: Overdose, Attempted suicide Primary Care Provider: Niyah Serna ED Provider: Meredith Orozco Home Meds and New Rx's Prescriptions: No Action melatonin 3 mg tablet 5 mg PO HS medroxyprogesterone 150 mg/mL syringe 150 mg IM [id number] Qty: 1 5RF labetalol 100 mg tablet 100 mg PO QAM Patient Comments: 1/2 Tab QAM Ozempic 0.25 mg or 0.5 mg (2 mg/3 mL) pen injector 0.25 mg subcut QWEEK Patient Comments: takes Qmonday Rx Instructions: for 4 weeks albuterol sulfate [Ventolin HFA] 90 mcg/actuation HFA aerosol inhaler 2 puff inhalation Q6H PRN quetiapine 25 mg tablet 25 mg PO BID buspirone 7.5 mg tablet 7.5 mg PO BID docusate sodium 100 mg capsule 100 mg PO DAILY pantoprazole 40 mg Tablet,Delayed Release (Dr/Ec) 40 mg PO QAM clonidine HCl 0.2 mg tablet 0.2 mg PO QHS sertraline 25 mg tablet 25 mg PO DAILY diphenoxylate-atropine [Lomotil] 2.5-0.025 mg tablet 1 tab PO DAILY Qty: 10 0RF Hold Instructions: pt now constipated ondansetron HCl 4 mg tablet 4 mg PO Q8H PRN (Reason: nausea and vomiting) Qty: 10 0RF Discharge Instructions Instructions: Suicide Prevention (ED) Referrals: Niyah Serna [Primary Care Provider] - Discharge Data Discharge Physician: Meredith Orozco
[2023-11-18] MEDS: Labetalol 100 MG TAB PO (07:42)
[2023-11-18] MEDS: QUEtiapine 25 MG TAB PO (07:43)
[2023-11-18] MEDS: Pantoprazole 40 MG TABCR PO (07:43)
[2023-11-18] MEDS: busPIRone 5 MG TAB 7.5 MG PO (07:43)
--- NOTE | 2023-11-18 14:34 | PDOC.MHPN2 ---
Date of service: 11/18/23 Time of Service: 14:34 Mental Health Emergency Note Release [facility] release signed:: Yes Reason for Visit The client arrived to the ED on 11.17.23 after reporting to have taken 4 packs of her medication attempting to overdose. This assessment is completed face to face at bedside with her inpatient services director and BECCA Collins. In the last 2 weeks has the pt presented for ES prior to today?: Unknown Impression The client is a 28 year old, single, female who lives independently in [facility] housing due to her being homeless. She receives services through the [facility] program. She presented to the ED reporting she had overdosed on her medications. She reported that she had a rough day because she could not get in touch with her team via the pager and then had outreached to [facility]. She reported that she had been taking with a male who she believed to be in his 50's and had sent him pictures and then he informed her he was 65. She became upset and blocked him and now he is calling her from other random numbers. She reported that she is feeling better now and that was because she got some sleep. She has eaten breakfast and has ordered her lunch. She is watching TV as a coping skill. The client reported that she wanted to safety plan home and that she is looking forward to an interview she has next week at [facility]. Plan/Disposition Recommended Disposition: [facility] Services [facility] Services: Other. Plan: The client will be discharged and has completed a safety plan with this clinician which can be located in the chart. The client was informed about 988 as well. Person reported agreement to plan: Yes Reports/communication Outcome discussed with: ED/Personnel
== END 2023-11-18 13:49 | disposition home or self-care (01) ==
PROVIDERS: Student in an Organized Health Care Education/Training Program; Emergency Provider Emergency Medicine Emergency Medical Services; PCP Nurse Practitioner Family
DX: T43.592A Poisoning by other antipsychotics and neuroleptics, intentional self-harm, initial encounter (principal); T46.5X2A Poisoning by other antihypertensive drugs, intentional self-harm, initial encounter; S40.811A Abrasion of right upper arm, initial encounter; R11.11 Vomiting without nausea; I12.9 Hypertensive chronic kidney disease with stage 1 through stage 4 chronic kidney disease, or unspecified chronic kidney disease; N18.1 Chronic kidney disease, stage 1; I48.92 Unspecified atrial flutter; Y92.018 Other place in single-family (private) house as the place of occurrence of the external cause
CPT/HCPCS: 00123; 80053; 80307; 81025; 82805; 87426; 93005; 96361; 96374; 99284; 80320; 80329; 81003; 81015; 84443; 84484; 85025; 93010; J2060

== ENCOUNTER 2023-11-22 18:27 | Emergency (ER) | payer MEDICAID, SELFPAY ==
[2023-11-22] VITALS (13 sets, daily range): BP systolic 119–163; BP diastolic 79–122; PULSE 90–117; RESP 8–27; TEMP 36.5; O2SAT 96–98
--- NOTE | 2023-11-22 18:30 | RT.EKG_ITS ---
APPROVED REPORT Exam: Resting ECG Reason for Exam: overdose Patient Location: E HR:83 bpm ECG Measurements Heart Rate 83 AXIS ND 260 P 0 QRSd 82 QRS 59 QT 405 T 234 QTc 477 Conclusion Sinus rhythm...normal P axis, V-rate 60- 99 Prolonged ND interval...ND >210, V-rate 50- 90 Abnormal T, consider ischemia, diffuse leads...T <-0.20mV, ant/lat/inf
--- NOTE | 2023-11-22 18:47 | W.ED.GENAD ---
HPI General Mode of arrival: EMS. Date/Time Provider Initiated Documentation: 11/22/23 18:32. Limitations to Documentation: no limitations. Information obtained by: patient. History of Present Illness 28 year old F presents to the emergency department with the chief complaint of si/overdose, described as moderate, Patient started experiencing this hour(s) (1) and it has been constant. No relieving factors improve symptom(s), No exacerbating factors reported . Patient notes denies chest pain, fever/chills and shortness of breath. Related Data Home Medications Medication Instructions Recorded Confirmed labetalol 100 mg tablet 100 mg PO QAM 09/25/21 11/17/23 melatonin 3 mg tablet 5 mg PO HS 09/25/21 11/17/23 pantoprazole 40 mg tablet,delayed 40 mg PO QAM 11/22/22 11/17/23 release clonidine HCl 0.2 mg tablet 0.2 mg PO QHS 02/15/23 11/17/23 albuterol sulfate 90 mcg/actuation 2 puff inhalation Q6H PRN 03/24/23 11/17/23 aerosol inhaler (Ventolin HFA) buspirone 7.5 mg tablet 7.5 mg PO BID 03/24/23 11/17/23 docusate sodium 100 mg capsule 100 mg PO DAILY 03/24/23 11/17/23 quetiapine 25 mg tablet 25 mg PO BID 03/24/23 11/17/23 semaglutide 0.25 mg or 0.5 mg (2 0.25 mg subcut QWEEK 08/11/23 11/17/23 mg/3 mL) subcutaneous pen injector (Ozempic) diphenoxylate-atropine 2.5 1 tab PO DAILY #10 tabs 09/22/23 11/17/23 mg-0.025 mg tablet (Lomotil) sertraline 25 mg tablet 25 mg PO DAILY 09/22/23 11/17/23 ondansetron HCl 4 mg tablet 4 mg PO Q8H PRN nausea and 11/12/23 11/17/23 vomiting #10 tabs medroxyprogesterone 150 mg/mL 150 mg IM [id number] #1 mL 11/14/23 11/17/23 intramuscular syringe Previous Rx's Medication Instructions Recorded diphenoxylate-atropine 2.5 1 tab PO DAILY #10 tabs 09/22/23 mg-0.025 mg tablet (Lomotil) ondansetron HCl 4 mg tablet 4 mg PO Q8H PRN nausea and 11/12/23 vomiting #10 tabs medroxyprogesterone 150 mg/mL 150 mg IM [id number] #1 mL 11/14/23 intramuscular syringe Allergies Allergy/AdvReac Type Severity Reaction Status Date / Time fluticasone Allergy Severe unknown Verified 11/17/23 22:51 [From Flovent HFA] fluoxetine Allergy Intermediate Verified 11/17/23 22:51 ibuprofen Allergy Intermediate vomiting Verified 11/17/23 22:51 lisinopril Allergy Intermediate unknown Verified 11/17/23 22:51 naproxen [From Aleve] Allergy Intermediate vomiting Verified 11/17/23 22:51 paroxetine HCl [From Paxil] Allergy Intermediate Hives Verified 11/17/23 22:51 risperidone [From Risperdal] Allergy Intermediate Hives Verified 11/17/23 22:51 sertraline Allergy Intermediate Verified 11/17/23 22:51 NSAIDS (Non-Steroidal Allergy Due to Verified 11/17/23 22:51 Anti-Inflamma prior kidney damage acetaminophen AdvReac Nausea Unverified 11/17/23 22:51 amoxicillin AdvReac Nausea Verified 11/17/23 22:51 dark sodas Allergy Severe Uncoded 11/17/23 22:51 seafood Allergy Intermediate unknown Uncoded 11/17/23 22:51 enviornmental Allergy Mild sneezing Uncoded 11/17/23 22:51 General Stated Complaint: Suicide-Atempt MARY KAY: 2 Review of Systems All systems reviewed & are unremarkable except as noted in HPI and below Constitutional Constitutional: Denies chills, Denies fever(s) and Denies weakness ENT Ears, Nose, Mouth, and Throat: Denies change in voice Cardiovascular Cardiovascular: Denies chest pain and Denies dyspnea Respiratory Respiratory: Denies cough and Denies dyspnea Gastrointestinal Gastrointestinal: Denies abdominal pain, Denies nausea and Denies vomiting Genitourinary Genitourinary: Denies dysuria Integumentary/Breasts Skin/Breast: Denies rash Neurologic Neurologic: Denies weakness PFSH All Active Problems (Updated 11/22/23 @ 20:47 by Miguel May MD) Attempted suicide (Acute) Overdose (Acute) Head injury, closed, with concussion (Acute) Syncope, non cardiac (Acute) Heat collapse (Acute) Constipation (Acute) Breakthrough bleeding on depo provera (Acute) Encounter for Depo-Provera contraception (Acute) Since 2017. Nicotine dependence (Acute) Contraception, generic surveillance (Acute) Hx of OCPs, Nexplanon, DepoProvera. 02/2023 Norethindrone 0.35mg till 05/2023. Resumed DepoProvera. 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 Hypertrophy of tonsils and adenoids Suicidal ideation Bipolar 2 disorder RBC microcytosis Vitamin D deficiency Steatosis of liver Back pain Dysuria Abdominal pain History of allergic reaction Hemolytic uremic syndrome PTSD (post-traumatic stress disorder) Mesenteric lymphadenitis Drug abuse, episodic use SASHA (stress urinary incontinence, female) Pain, dental Blood in stool History of mastoiditis Jaw pain TMJ tenderness, left Otalgia, right ear BMI 40.0-44.9, adult Overactive bladder (02/09/18) Generalized headaches (12/31/16) Depression (12/31/16) Depo-Provera contraceptive status (09/13/17) Depo-Provera contraception since 08/11/2017. Patient is using the Depo-Provera for menstrual cycle control. ADHD (attention deficit hyperactivity disorder) (12/31/16) Surgical History History of colonoscopy (~06/2022) Hx of tooth extraction History of kidney surgery Social History Smoking/Tobacco Use Status: Former Tobacco Use Quit Date: 11/27/22 Smoking risk assessment performed?: Yes Alcohol Intake: former Drug use: Current Sobriety Substance use type: does not use Housing: homeless Sexually active: Yes (female partner only now(May 2022). Has never had intercourse) Do you think of yourself as: lesbian/cash/homosexual What is your relationship status?: never Panel score (0-1 are the most socially isolated patients): 0 Do you feel safe at home: Yes Do you feel safe in your relationship?: Yes Additional Social history: pt is staying at [facility] at the moment due to being homeless, unable to afford enema. Female Reproductive History Menstrual control method: progesterone injection History History 0 Para Hx # Term Pregnancies Multiple births Hx # Pregnancies Ectopic pregnancies AB induced Hx Number of Living Children AB spontaneous Exam Const General: no acute distress Orientation: alert HENMT Head: normal to inspection Ears: external ears normal General nose exam: external nose normal Mouth: moist mucous membranes Eyes General: appearance normal, both eyes and all related structures Neck Neck: normal visual inspection Resp Effort & Inspection: normal respiratory effort and able to speak in complete sentences Auscultation: clear to auscultation bilaterally Cardio Rate: regular rate Heart Sounds: no murmurs GI Palpation: nontender Skin General skin exam: no rashes or lesions noted Neuro General: patient alert and patient oriented x3 Extrem General: normal to inspection Psych Appearance: well kempt Course Vital Signs Vital signs: Vital Signs Temperature 36.5 C 11/22/23 18:32 Pulse 104 H 11/22/23 18:32 Respiratory Rate 18 11/22/23 18:32 Blood Pressure 140/93 H 11/22/23 18:32 Pulse Oximetry 98 11/22/23 18:32 Temperature 36.5 C 11/22/23 18:32 Temperature Source Temporal Artery Scan 11/22/23 18:32 Pulse 104 H 11/22/23 18:32 Respiratory Rate 18 11/22/23 18:32 Respiratory Effort Normal 11/22/23 18:37 Blood Pressure 140/93 H 11/22/23 18:32 Blood Pressure Position Sitting 11/22/23 18:32 Pulse Oximetry 98 11/22/23 18:32 Oxygen Delivery Method Room Air 11/22/23 18:32 Oxygen Flow Rate 0 11/22/23 18:32 Pain Level 7 11/22/23 18:32 Comment abd pain 11/22/23 18:32 Medical Decision Making 28 yo female with hx of bipolar and frequent episodes of si comes in after she states she's been more depressed and tonight decided to try and harm herself by taking 100mg seroquel, .8mg clonidine, 30mg buspar and 20mg melatonin approximately 1 hour ago. She denies alcohol and drug use. She is caox4 on arrival speaking clearly. No focal deficits on exam, ambulating with normal gait. Will obtain ecg and tox screen and monitor. pt seen by [facility] and denies si now and feel she is stable for d/c, she has been calm and cooperative now and denies si to me. Per hs she has stated in the past she has taken her mediations to overdose but when they check at her house she usually hasn't even taken the meds. She will f/u with [facility] and return precautions given Differential Diagnosis Differential Diagnosis: depression,si Medical Records Medical records reviewed: Yes I reviewed the patient's medical records. Lab Data Lab results reviewed: Yes I reviewed the patient's lab results. ECG Data Attestation: I personally reviewed and interpreted this ECG (s) as follows: Prior ECG tracings: available for review Interpretation: motion artifact, sinus rate of 83 qtc 477 2nd ekg motion artifact, rate of 105 sinus tach, qtc 488 Quality:SDOH Health Related Social Needs: Health related social needs inadequate housing Discharge Plan Disposition Patient Disposition: Home Condition: Stable Discharge Details Clinical Impression: Overdose Primary Care Provider: Niyah Serna ED Provider: Miguel May Home Meds and New Rx's Prescriptions: Continued melatonin 3 mg tablet 5 mg PO HS medroxyprogesterone 150 mg/mL syringe 150 mg IM [id number] Qty: 1 5RF labetalol 100 mg tablet 100 mg PO QAM Patient Comments: 1/2 Tab QAM Ozempic 0.25 mg or 0.5 mg (2 mg/3 mL) pen injector 0.25 mg subcut QWEEK Patient Comments: takes Qmonday Rx Instructions: for 4 weeks albuterol sulfate [Ventolin HFA] 90 mcg/actuation HFA aerosol inhaler 2 puff inhalation Q6H PRN quetiapine 25 mg tablet 25 mg PO BID buspirone 7.5 mg tablet 7.5 mg PO BID docusate sodium 100 mg capsule 100 mg PO DAILY pantoprazole 40 mg Tablet,Delayed Release (Dr/Ec) 40 mg PO QAM clonidine HCl 0.2 mg tablet 0.2 mg PO QHS sertraline 25 mg tablet 25 mg PO DAILY diphenoxylate-atropine [Lomotil] 2.5-0.025 mg tablet 1 tab PO DAILY Qty: 10 0RF Hold Instructions: pt now constipated ondansetron HCl 4 mg tablet 4 mg PO Q8H PRN (Reason: nausea and vomiting) Qty: 10 0RF Discharge Instructions Additional Instructions: follow up with your primary care provider and [facility] human services within 1 week if you feel more ill or have worsening thoughts of self harm return to the emergency department
[2023-11-22 19:22] LABS: Abs Immature Grans 0.06 10^3/uL (0.0-0.06); Absolute Basophil Count 0.06 10^3/uL (0.0-0.2); Absolute Lymphocyte Count 2.24 10^3/uL (1.2-3.4); Basophils % 0.5; Eosinophils % 0.9; HCT 40.1 % (36.0-46.0); HGB 12.7 g/dL (11.2-15.7); Immature Grans % 0.5; Lymphocytes % 19.3; MCH 22.9 pg (27.0-33.0); MCHC 31.7 % (32.0-36.0); MCV 72 fL (80-95); MPV 12.2 fL (8.0-11.0); Monocytes % 6.4; Neutrophils % 72.4; Platelet Count 324 10^3/uL (130-400); RBC 5.54 10^6/uL (3.93-5.22); RDW 14.6 % (11.7-14.6); RDW-SD 38.2 fL; WBC 11.63 10^3/uL (4.4-10.8)
[2023-11-22 19:33] LABS: Bilirubin Negative (Negative); Blood Negative (Negative); Clarity Clear (Clear); Glucose Negative (Negative); Ketones Negative (Negative); Leukocyte Esterase Negative (Negative); Nitrite Negative (Negative); Specific Gravity 1.025 (1.005-1.025); Urobilinogen 0.2 mg/dL (Up to 0.2)
[2023-11-22 19:40] LABS: Absolute Monocyte Count 0.74 10^3/uL (0.1-0.8); Absolute Neutrophil Count 8.42 10^3/uL (1.2-6.7)
[2023-11-22 19:44] LABS: Bacteria Rare HPF (Negative); C & S Indicated? No; Crystals Negative HPF (Negative); Epithelial Cells Rare HPF (Negative); Mucus Trace (Negative); RBC 0-2 HPF (0-2); WBC 0-2 HPF (0-5)
[2023-11-22 19:45] LABS: ALT 26 U/L (14-59); AST 13 U/L (15-37); Albumin 3.8 g/dL (3.4-5.0); Alkaline Phosphatase 85 U/L (46-116); Anion Gap 10.3 mmol/L (3-11); BUN 6 mg/dL (7-18); Bilirubin, Total 0.5 mg/dL (0.2-1.0); CO2 24.7 mmol/L (21.0-32.0); CREATININE 0.8 mg/dL (0.55-1.02); Calcium 9.2 mg/dL (8.5-10.1); Chloride 103 mmol/L (98-107); Estimated GFR 104.15 (mL/min/1.73m2); Glucose 135 mg/dL (74-106); Potassium 3.7 mmol/L (3.5-5.1); Sodium 138 mmol/L (136-145); TSH (W/Ref FT4) 1.93 uIU/mL (0.36-3.74); Total Protein 7.6 g/dL (6.4-8.2)
[2023-11-22 19:47] LABS: Diff Comment RBC Morph Reviewed; Microcytosis 1+
[2023-11-22 19:49] LABS: *AMPHETAMINES SCREEN URINE Negative (Negative); *BARBITURATES SCREEN URINE Negative (Negative); *BENZODIAZEPINES SCREEN URINE Negative (Negative); Cannabinoids THC Negative (Negative); Cocaine Screen,Urine Negative (Negative); METHADONE URINE SCREEN Negative (Negative); OPIATES URINE SCREEN Negative (Negative)
[2023-11-22 19:51] LABS: Tricyclic Antidepressants Negative (Negative)
[2023-11-22 19:52] LABS: Salicylate < 2.8 mg/dL (<2.8)
[2023-11-22 19:55] LABS: Acetaminophen < 2 ug/mL (10-30)
[2023-11-22 20:05] LABS: ETHANOL BLOOD < 3.0 mg/dL (<10)
--- NOTE | 2023-11-22 20:45 | RT.EKG_ITS ---
APPROVED REPORT Exam: Resting ECG Reason for Exam: overdose Patient Location: E HR:105 bpm ECG Measurements Heart Rate [address] 208 P -21 QRSd 85 QRS 48 QT 369 T -22 QTc 488 Conclusion Sinus tachycardia...rate> 99 Ventricular premature complex...V complex w/ short R-R interval Prolonged CT interval...CT >205, V-rate 91-120 Nonspecific repol abnormality, inferior leads...ST dep, T neg, II III aVF motion artifact
--- NOTE | 2023-11-23 02:17 | PDOC.MHCN ---
Date of service: 11/22/23 Time of Service: 19:21 Mental Health Emergency Note Release [facility] release signed:: Yes Reason for Visit In the last 2 weeks has the pt presented for ES prior to today?: Yes, presented at [facility] ED Impression Client called EMS to bring her into [facility] due to her reportedly overdosing on 4 packages of her pre distributed medication. Client was not willing to have an assessment done at this time and was released from the hospital when she was medically cleared. This contract technical writer tried on several occasions to complete an assessment with the client because the client was not willing to complete the assessment at any point in time. In addition, several [facility] staff members tried to speak with the client and get the client to understand that help is being offered but the client did not want to take it and then repeatedly screamed that we were not helping her. Security was called towards the end of the interaction due to the client getting increasingly agitated and when the client began to throw objects in the general direction of this contract technical writer to guarantee the safety of this contract technical writer and Ed staff. Client was heard yelling to the security presence that she will hurt people if she does not get what she wants. Plan/Disposition Recommended Disposition: Other. Reports/communication Outcome discussed with: ED/Personnel
== END 2023-11-22 21:28 | disposition home or self-care (01) ==
PROVIDERS: Emergency Provider Emergency Medicine; PCP Nurse Practitioner Family
DX: T43.592A Poisoning by other antipsychotics and neuroleptics, intentional self-harm, initial encounter (principal); T46.5X2A Poisoning by other antihypertensive drugs, intentional self-harm, initial encounter; R45.851 Suicidal ideations; F32.A Depression, unspecified; R94.31 Abnormal electrocardiogram [ECG] [EKG]
CPT/HCPCS: 00123; 80053; 80307; 81025; 93005; 99284; 80320; 80329; 81003; 81015; 84443; 85025; 93010

== ENCOUNTER 2023-12-04 14:19 | Emergency (ER) | payer MEDICAID, SELFPAY ==
--- NOTE | 2023-12-04 14:17 | W.ED.GENAD ---
HPI General Date/Time Provider Initiated Documentation: 12/04/23 14:39. HPI Narrative: MDM This is an overall very well appearing mildly tachycardic but normothermic 28-year-old female with auditory hallucinations, suicidal ideation and increased anxiety with decreased appetite for which patient will undergo crisis screening. She is mildly tachycardic so she has not yet medically cleared. Will provide her some food as she has not been eating well today and she reports that she is hungry. She had no nuchal rigidity to suggest meningitis. Not altered to suggest encephalitis. No signs of head trauma so we will defer CT head. No reported tonic-clonic activity so N/Ado not feel that the patient requires an EEG. She is not complaining of any weakness or difficulty speaking so I do not feel that her presentation represents a CVA so I do not feel that she requires an MRI. Not altered to suggest anticholinergic toxicity. No dilated pupils nor diaphoresis to suggest sympathomimetic overdose. Will order a constant clinical safety monitor regular diet on a safety tray along with the patient's home medications. No lacerations that would require primary closure. No abrasions that suggest benefit for tetanus update. 3:20 PM I spoke with ashutosh Chaudhari for [facility] human services. She was placing referrals for the patient to go voluntarily for inpatient treatment. She had additional history the patient had reportedly attempted to drown herself last night in a bathtub. No respiratory symptoms or hypoxia at the moment so we will defer chest x-ray. 3:55 PM [id number] urine test negative. Repeat heart rate fluctuating between 98 and 105. Patient medically cleared based on [facility] medical clearance. She will be moved back into zone B. Will update documentation as clinically warranted and signed patient out to the oncoming overnight provider. 11:05 PM No active behavioral issues throughout the remainder my shift. Signed patient out to Dr. Ben HOFFMAN medical clearance (if all five of the following are answered ``no?? then the patient is considered medically cleared and no testing is indicated): Suspect new onset psychiatric condition or features? [No] Medical conditions that require screening? [No] Diabetes (FSBS less than 60 or greater the 250) Possibility of (age 12 - 50) Other complaints that require screening Abnormal: [No] Vital signs? Temp: greater than 38.0 degrees C (100.4 degrees F) HR: less than 50 or greater than 110 BP: less than 100 systolic or greater than 180/110 (2 consecutive readings 10 min apart) RR: less than 8 or greater than 22 O2 sat: less than 95 % on room air Mental status? Cannot answer name, month/year and location (minimum A/Ox 3) If clinically intoxicated, HII score 4 or more? Physical Exam (unclothed)? Risky presentation? [No] Age less than 12 or greater than 55 Possibility of ingestion (screen all suicidal patients) Eating disorders Potential for alcohol withdrawal (daily use > or equal to 2 weeks) Ill appearing, significant injury, prolonged struggle or ``found down?? Therapeutic levels needed? [No] Phenytoin, Valproic Acid, [place], Digoxin, Warfarin, Carbamazepine Chronic conditions affecting the care of the patient: Suicidal ideation History obtained from an outside historian: Paramedics External record review: [facility] EMR Medications: Home medications ordered Social determinants of health affecting disposition: N/A Management discussed with: [facility] human [facility] Treatment/interventions considered: N/A Response to therapies provided: [] HPI This is a 27-year-old female with prior history of overdose and prior attempted suicide prior to the emergency department via ambulance in setting of increased anxiety and auditory hallucinations. Patient attempted to cut herself on her right forearm with the keys. She feels that her medications are not working. [facility] and they advised her to come to the emergency department first. She denies routine tobacco, ethanol, and illicits. She took all of her home medications today. She has not taken any recent falls. She denies fever shortness of breath chest pain difficulty urinating dysuria frequency and any abdominal pain. Exam General: Anxious-appearing in no acute distress speaking in complete sentences. Head: Normocephalic, atraumatic. Eye: Extraocular eye movements intact. No conjunctival injection. No scleral icterus. Ear, nose, mouth, throat: Grossly normal inspection. Normal voice, handling secretions normally. Neck: Trachea midline. Cardiovascular: Well-perfused distal extremities. Respiratory: Nonlabored respiration. Gastrointestinal: Nondistended abdomen. Musculoskeletal: No edema. Moving all 4 extremities spontaneously. Skin: Superficial erythematous linear garcia to right forearm. No abrasions. No lacerations. Neurologic: Alert and appropriate, no apparent acute deficits. Psychiatric: Anxious intermittently tearful. No pressured speech. No flight of ideas. Endorses auditory but not visual hallucinations. Related Data Home Medications Medication Instructions Recorded Confirmed labetalol 100 mg tablet 100 mg PO QAM 09/25/21 12/04/23 melatonin 3 mg tablet 5 mg PO HS 09/25/21 11/17/23 pantoprazole 40 mg tablet,delayed 40 mg PO QAM 11/22/22 12/04/23 release clonidine HCl 0.2 mg tablet 0.2 mg PO QHS 02/15/23 12/04/23 albuterol sulfate 90 mcg/actuation 2 puff inhalation Q6H PRN 03/24/23 12/04/23 aerosol inhaler (Ventolin HFA) buspirone 7.5 mg tablet 7.5 mg PO BID 03/24/23 12/04/23 docusate sodium 100 mg capsule 100 mg PO DAILY 03/24/23 12/04/23 quetiapine 25 mg tablet 25 mg PO BID 03/24/23 12/04/23 semaglutide 0.25 mg or 0.5 mg (2 0.25 mg subcut QWEEK 08/11/23 12/04/23 mg/3 mL) subcutaneous pen injector (Ozempic) diphenoxylate-atropine 2.5 1 tab PO DAILY #10 tabs 09/22/23 12/04/23 mg-0.025 mg tablet (Lomotil) sertraline 25 mg tablet 25 mg PO DAILY 09/22/23 12/04/23 ondansetron HCl 4 mg tablet 4 mg PO Q8H PRN nausea and 11/12/23 12/04/23 vomiting #10 tabs medroxyprogesterone 150 mg/mL 150 mg IM [id number] #1 mL 11/14/23 12/04/23 intramuscular syringe Previous Rx's Medication Instructions Recorded diphenoxylate-atropine 2.5 1 tab PO DAILY #10 tabs 09/22/23 mg-0.025 mg tablet (Lomotil) ondansetron HCl 4 mg tablet 4 mg PO Q8H PRN nausea and 11/12/23 vomiting #10 tabs medroxyprogesterone 150 mg/mL 150 mg IM [id number] #1 mL 11/14/23 intramuscular syringe Allergies Allergy/AdvReac Type Severity Reaction Status Date / Time fluticasone Allergy Severe unknown Verified 12/04/23 14:30 [From Flovent HFA] fluoxetine Allergy Intermediate Verified 12/04/23 14:30 ibuprofen Allergy Intermediate vomiting Verified 12/04/23 14:30 lisinopril Allergy Intermediate unknown Verified 12/04/23 14:30 naproxen [From Aleve] Allergy Intermediate vomiting Verified 12/04/23 14:30 paroxetine HCl [From Paxil] Allergy Intermediate Hives Verified 12/04/23 14:30 risperidone [From Risperdal] Allergy Intermediate Hives Verified 12/04/23 14:30 sertraline Allergy Intermediate Verified 12/04/23 14:30 NSAIDS (Non-Steroidal Allergy Due to Verified 12/04/23 14:30 Anti-Inflamma prior kidney damage acetaminophen AdvReac Nausea Unverified 12/04/23 14:30 amoxicillin AdvReac Nausea Verified 12/04/23 14:30 dark sodas Allergy Severe Uncoded 12/04/23 14:30 seafood Allergy Intermediate unknown Uncoded 12/04/23 14:30 enviornmental Allergy Mild sneezing Uncoded 12/04/23 14:30 General MARY KAY: 2 Medical Decision Making Quality:SDOH Health Related Social Needs: Health related social needs inadequate housing PFSH All Active Problems (Updated 12/04/23 @ 15:07 by Luis Armando Schmtiz MD) Deliberate self-cutting (Acute) Auditory hallucinations (Acute) Attempted suicide (Acute) Overdose (Acute) Head injury, closed, with concussion (Acute) Syncope, non cardiac (Acute) Heat collapse (Acute) Constipation (Acute) Breakthrough bleeding on depo provera (Acute) Encounter for Depo-Provera contraception (Acute) Since 2017. Nicotine dependence (Acute) Contraception, generic surveillance (Acute) Hx of OCPs, Nexplanon, DepoProvera. 02/2023 Norethindrone 0.35mg till 05/2023. Resumed DepoProvera. 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 Hypertrophy of tonsils and adenoids Suicidal ideation Bipolar 2 disorder RBC microcytosis Vitamin D deficiency Steatosis of liver Back pain Dysuria Abdominal pain History of allergic reaction Hemolytic uremic syndrome PTSD (post-traumatic stress disorder) Mesenteric lymphadenitis Drug abuse, episodic use SASHA (stress urinary incontinence, female) Pain, dental Blood in stool History of mastoiditis Jaw pain TMJ tenderness, left Otalgia, right ear BMI 40.0-44.9, adult Overactive bladder (02/09/18) Generalized headaches (12/31/16) Depression (12/31/16) Depo-Provera contraceptive status (09/13/17) Depo-Provera contraception since 08/11/2017. Patient is using the Depo-Provera for menstrual cycle control. ADHD (attention deficit hyperactivity disorder) (12/31/16) Surgical History History of colonoscopy (~06/2022) Hx of tooth extraction History of kidney surgery Social History Smoking/Tobacco Use Status: Former Tobacco Use Quit Date: 11/27/22 Smoking risk assessment performed?: Yes Alcohol Intake: former Drug use: Current Sobriety Substance use type: does not use Housing: homeless Sexually active: Yes (female partner only now(May 2022). Has never had intercourse) Do you think of yourself as: lesbian/cash/homosexual What is your relationship status?: never Panel score (0-1 are the most socially isolated patients): 0 Do you feel safe at home: Yes Do you feel safe in your relationship?: Yes Additional Social history: pt is staying at the [facility] at the moment due to being homeless, unable to afford enema. Female Reproductive History Menstrual control method: progesterone injection History History 0 Para Hx # Term Pregnancies Multiple births Hx # Pregnancies Ectopic pregnancies AB induced Hx Number of Living Children AB spontaneous Discharge Plan Discharge Details Chief Complaint: PsychEval Clinical Impression: Auditory hallucinations, Deliberate self-cutting Primary Care Provider: Niyah Serna ED Provider: Luis Armando Schmitz [place] Meds and New Rx's Prescriptions: No Action melatonin 3 mg tablet 5 mg PO HS medroxyprogesterone 150 mg/mL syringe 150 mg IM [id number] Qty: 1 5RF labetalol 100 mg tablet 100 mg PO QAM Patient Comments: 1/2 Tab QAM Ozempic 0.25 mg or 0.5 mg (2 mg/3 mL) pen injector 0.25 mg subcut QWEEK Patient Comments: takes Qmonday Rx Instructions: for 4 weeks albuterol sulfate [Ventolin HFA] 90 mcg/actuation HFA aerosol inhaler 2 puff inhalation Q6H PRN quetiapine 25 mg tablet 25 mg PO BID buspirone 7.5 mg tablet 7.5 mg PO BID docusate sodium 100 mg capsule 100 mg PO DAILY pantoprazole 40 mg Tablet,Delayed Release (Dr/Ec) 40 mg PO QAM clonidine HCl 0.2 mg tablet 0.2 mg PO QHS sertraline 25 mg tablet 25 mg PO DAILY diphenoxylate-atropine [Lomotil] 2.5-0.025 mg tablet 1 tab PO DAILY Qty: 10 0RF Hold Instructions: pt now constipated ondansetron HCl 4 mg tablet 4 mg PO Q8H PRN (Reason: nausea and vomiting) Qty: 10 0RF
[2023-12-04 14:19] VITALS: BP 162/104; PULSE 133; RESP 20; O2SAT 95
[2023-12-04 14:46] VITALS: TEMP 37.1
--- NOTE | 2023-12-04 15:28 | CMSP_ITS ---
Date of service: 12/04/23 Time of Service: 15:28 Care Management Safety Plan Status Status: Voluntary Reason for Wait Reason for Wait: Inpatient Admission Safety Plan Safety Plan: VOLUNTARY FOR INPATIENT PSYCHIATRIC STABILIZATION.? Patient is appropriate in all interactions since arriving at [facility]; Pt has demonstrated appropriate coping and communication skills, has articulated his or her needs and concerns and is fully engaged during staff interactions. Safety plan has been established with patient, and care team, to adhere to patient goals, identify restrictions based on behavioral status, address nutrition, and determine allowed personal belongings, tools for hygiene and personal care. Determine level of activity including ambulation, level of superv ision, visitors, and determine privileges based on behaviors and level of engagement by pt. SAFETY PLAN: 1. Will remain on suicide precautions, in paper clothes 2. Will remain in Zone B under direct supervision of one-on-one staff at all times provided by [employer]; VIGNESH, PACKING SUPERVISOR jewel supervisor. 3. May have paper cups, plates, finger foods as well as a cardboard spoon with which to eat meals. 4. Follow [facility] Management of the Admitted Behavioral Health Patient policy. 5. Shower available in Zone B without restriction. 6. Personal belongings-soft items permitted at RN discretion. 7. Visitors-none at this time. 8. Activities: soft cart items approved per RN discretion. 9.? Bathroom available in Zone B without restriction. 10. Phone: limited to [facility] cordless phone at RN discretion. Due to VOLUNTARY status, if patient wishes to leave [facility], staff will contact [facility] Crisis Screener ([phone]) and On-Call Manager Culinary ([phone]) as soon as possible. In the event of elopement, notify [facility] Police ([phone]). Patient is currently voluntarily at [facility] and seeking inpatient admission when a bed becomes available. [facility] Frontline Morning Show Producer will continue seeking placement. Please contact the Watershed Tender Manager Culinary ([phone]) and [facility] Morning Show Producer ([phone]) for any needed changes in the Safety Plan. Safety plan has been provided to interdepartmental care team.
--- NOTE | 2023-12-04 15:28 | PDOC.CMSAFE ---
Date of service: 12/04/23 Time of Service: 15:28 Care Management Safety Plan Status Status: Voluntary Reason for Wait Reason for Wait: Inpatient Admission Safety Plan Safety Plan: VOLUNTARY FOR INPATIENT PSYCHIATRIC STABILIZATION.? Patient is appropriate in all interactions since arriving at [facility]; Pt has demonstrated appropriate coping and communication skills, has articulated his or her needs and concerns and is fully engaged during staff interactions. Safety plan has been established with patient, and care team, to adhere to patient goals, identify restrictions based on behavioral status, address nutrition, and determine allowed personal belongings, tools for hygiene and personal care. Determine level of activity including ambulation, level of supervision, visitors, and determine privileges based on behaviors and level of engagement by pt. SAFETY PLAN: 1. Will remain on suicide precautions, in paper clothes 2. Will remain in Zone B under direct supervision of one-on-one staff at all times provided by [employer]; VIGNESH, PHARMACY COORDINATOR porcelain enameler. 3. May have paper cups, plates, finger foods as well as a cardboard spoon with which to eat meals. 4. Follow [facility] Management of the Admitted Behavioral Health Patient policy. 5. Shower available in Zone B without restriction. 6. Personal belongings-soft items permitted at RN discretion. 7. Visitors-none at this time. 8. Activities: soft cart items approved per RN discretion. 9.? Bathroom available in Zone B without restriction. 10. Phone: limited to [facility] cordless phone at RN discretion. Due to VOLUNTARY status, if patient wishes to leave [facility], staff will contact [facility] Crisis Screener ([phone]) and On-Call Lean Specialist ([phone]) as soon as possible. In the event of elopement, notify [facility] Police ([phone]). Patient is currently voluntarily at [facility] and seeking inpatient admission when a bed becomes available. [facility] Frontline Supervisor Tumblers will continue seeking placement. Please contact the Vmware Engineer Lean Specialist ([phone]) and [facility] Supervisor Tumblers ([phone]) for any needed changes in the Safety Plan. Safety plan has been provided to interdepartmental care team.
--- NOTE | 2023-12-04 15:44 | PDOC.MHCN_ITS ---
Date of service: 12/04/23 Time of Service: 15:20 Suicide Severity Rate CSSRS Have you wished you were or wished you could go to sleep and not wake up?: Yes Have you actually had any thoughts of killing yourself?: Yes CSSRS2 Have you been thinking about how you might do this?: Yes Have you had these thoughts and had some intention of acting on them?: Yes Have you started to work out or worked out the details of how to kill yourself? Do you intend to carry out this plan?: No CSSRS3 Have you ever done anything, started to do anything or prepared to do anything to end your life?: Yes CSSRS4 Was this within the past three months?: Yes Screening Score Total Score: 8 Screening: Positive Mental Health Emergency Note Release HS release signed:: Yes Reason for Visit Shannon presents to [facility] seeking voluntary inpatient treatment due to her suicidal ideation. Shannon reports she has already called [facility]. In the last 2 weeks has the pt presented for ES prior to today?: Unknown Client Information Client is: [facility] Well Housed: No,status: Homeless Unstable housing Non Suicidal Self Injury Current: Yes, Shannon reports self harming earlier today. History: yes, Shannon has a history of self harming. Safety Risk/Harm to Self or Others Current Ideation to Harm Self or Others: Yes to self. (Shannon reports she has been thinking about and suicide a lot recently. Shannon reports attempting to drown self in bath tub last night.) Intent: no, has no intent. Plan: yes,has a plan. History of suicide attempt: yes,history of suicide attempt reported. Details of previous suicide attempt: Shannon reports several past attempts via overdoses or cutting. Risk: Does risk to harm exist?: yes. Access to means: No. Risk: Low Risk Duty to warn indicated: No Asssessment/Mental Status Appearance: Disheveled Attitude: Cooperative Behavior: Poor impulse control Speech: Normal Affect: Cogruent with mood Mood: Sad, Stressed, Depressed and Anxious Thought process: Goal directed Hallucinations: No evidence Delusions: No evidence Attention: Unremarkable Perception: Not impaired Orientation: Fully orientated Memory: Intact Insight: Fair Judgement: Fair Neurovegetative Symptoms Sleep: Decrease Appetitie: Decrease Interests: Decrease Energy: Decrease Libido: Not applicable Substance Use: Do you use nicotine?: No Have you used substances in the last 7 days?: No Additional Issues: Assaultive/Threatening Behavior: No Medical Concerns: No Client engaged in active self harm w/weapon: No Threatening to run away: No Child reported abuse/neglect: No Voluntarily presenting for services: Yes Domestic violence is a concern: No Extreme Psychosis or extreme behavior is present: No Impression Shannon presents to [facility] via ambulance after she reports she cut herself today to by suicide and attempted to drown herself last night. Shannon reports that she has been thinking about and suicide a lot more recently. Shannon reports a decreased appetite, decreased sleep, lack of interest in normal pleasure activities and the feeling of being a burden or not cared about. Shannon reports she wants to be better and enjoy life but she simply cannot right now. Shannon presents disheveled, tearful, and goal directed. Shannon reports feeling sad and very depressed. Shannon feels like her medications may not be working as well. Shannon reports that she was hearing voices as well, but could not give specifics. Plan/Disposition Recommended Disposition: Hospitalization facilities contacted. Plan: Shannon will wait at [facility] for voluntary inpatient treatment and be seen by [facility] daily until then. Person reported agreement to plan: Yes Reports/communication Outcome discussed with: ED/Personnel
[2023-12-04 15:55] VITALS: PULSE 98
[2023-12-04] MEDS: Melatonin 3 MG TAB 6 MG PO (19:07)
[2023-12-04] MEDS: QUEtiapine 25 MG TAB PO (19:08)
[2023-12-04] MEDS: cloNIDine 0.1 MG TAB 0.2 MG PO (19:08)
[2023-12-04] MEDS: busPIRone 5 MG TAB 7.5 MG PO (19:09)
--- NOTE | 2023-12-05 07:18 | W.EDPROG ---
Date of service: 12/05/23 Time of Service: 07:18 Medical Decision Making Resting comfortably no acute distress overnight. Quality:SDOH Health Related Social Needs: Health related social needs inadequate housing Sign Out Sign Out Data: Sign Out Comment: 28-year-old female history of depression and suicidal ideation prior hospitalizations now medically cleared seek voluntary placement with [facility]. Patient had superficial self cutting along with auditory hallucinations and reported suicide attempt last night by drowning. Referral has been placed to [facility]. Home medications ordered. Patient on clinical safety observation. Regular diet on a safety tray ordered. Last updated by Luis Armando Schmitz MD at 12/04/23 23:07 Discharge Plan Discharge Details Chief Complaint: PsychEval Clinical Impression: Auditory hallucinations, Deliberate self-cutting Primary Care Provider: Niyah Serna ED Provider: Zeb Mcguire Home Meds and New Rx's Prescriptions: No Action melatonin 3 mg tablet 5 mg PO HS medroxyprogesterone 150 mg/mL syringe 150 mg IM [id number] Qty: 1 5RF labetalol 100 mg tablet 100 mg PO QAM Patient Comments: 1/2 Tab QAM Ozempic 0.25 mg or 0.5 mg (2 mg/3 mL) pen injector 0.25 mg subcut QWEEK Patient Comments: takes Qmonday Rx Instructions: for 4 weeks albuterol sulfate [Ventolin HFA] 90 mcg/actuation HFA aerosol inhaler 2 puff inhalation Q6H PRN quetiapine 25 mg tablet 25 mg PO BID buspirone 7.5 mg tablet 7.5 mg PO BID docusate sodium 100 mg capsule 100 mg PO DAILY pantoprazole 40 mg Tablet,Delayed Release (Dr/Ec) 40 mg PO QAM clonidine HCl 0.2 mg tablet 0.2 mg PO QHS sertraline 25 mg tablet 25 mg PO DAILY diphenoxylate-atropine [Lomotil] 2.5-0.025 mg tablet 1 tab PO DAILY Qty: 10 0RF Hold Instructions: pt now constipated ondansetron HCl 4 mg tablet 4 mg PO Q8H PRN (Reason: nausea and vomiting) Qty: 10 0RF
[2023-12-05 07:32] VITALS: BP 135/84; PULSE 101; RESP 20; TEMP 36.2; O2SAT 98
[2023-12-05] MEDS: busPIRone 5 MG TAB 7.5 MG PO (07:47)
[2023-12-05] MEDS: Labetalol 100 MG TAB PO (07:48)
[2023-12-05] MEDS: Pantoprazole 40 MG TABCR PO (07:49)
[2023-12-05] MEDS: QUEtiapine 25 MG TAB PO (07:49)
--- NOTE | 2023-12-05 08:49 | W.EDPROG ---
Date of service: 12/05/23 Time of Service: 08:49 Medical Decision Making Patient accepted in signout. Pending placement. She has been accepted for placement at [facility]. She has been calm and cooperative all day. She was given some as needed medications for anxiety and some for stomachache. She is transported in good condition for inpatient psychiatric care. Medical Records Medical records reviewed: Yes I reviewed the patient's medical records. Quality:[facility] Health Related Social Needs: Health related social needs inadequate housing Sign Out Sign Out Data: Sign Out Comment: 28-year-old female history of depression and suicidal ideation prior hospitalizations now medically cleared seek voluntary placement with [facility]. Patient had superficial self cutting along with auditory hallucinations and reported suicide attempt last night by drowning. Referral has been placed to [facility]. Home medications ordered. Patient on clinical safety observation. Regular diet on a safety tray ordered. Last updated by Luis Armando Schmitz MD at 12/04/23 23:07 Sign Out Comment: voluntary, SI, awaiting placement Last updated by Zeb Mcguire MD at 12/05/23 07:21 Discharge Plan Discharge Details Chief Complaint: PsychEval Clinical Impression: Auditory hallucinations, Deliberate self-cutting Primary Care Provider: Niyah Serna ED Provider: Anil Ferrer Home Meds and New Rx's Prescriptions: No Action melatonin 3 mg tablet 5 mg PO HS medroxyprogesterone 150 mg/mL syringe 150 mg IM [id number] Qty: 1 5RF labetalol 100 mg tablet 100 mg PO QAM Patient Comments: 1/2 Tab QAM Ozempic 0.25 mg or 0.5 mg (2 mg/3 mL) pen injector 0.25 mg subcut QWEEK Patient Comments: takes Qmonday Rx Instructions: for 4 weeks albuterol sulfate [Ventolin HFA] 90 mcg/actuation HFA aerosol inhaler 2 puff inhalation Q6H PRN quetiapine 25 mg tablet 25 mg PO BID buspirone 7.5 mg tablet 7.5 mg PO BID docusate sodium 100 mg capsule 100 mg PO DAILY pantoprazole 40 mg Tablet,Delayed Release (Dr/Ec) 40 mg PO QAM clonidine HCl 0.2 mg tablet 0.2 mg PO QHS sertraline 25 mg tablet 25 mg PO DAILY diphenoxylate-atropine [Lomotil] 2.5-0.025 mg tablet 1 tab PO DAILY Qty: 10 0RF Hold Instructions: pt now constipated ondansetron HCl 4 mg tablet 4 mg PO Q8H PRN (Reason: nausea and vomiting) Qty: 10 0RF
[2023-12-05] MEDS: LORazepam 1 MG TAB 2 MG PO (11:16)
[2023-12-05 14:52] VITALS: BP 121/74; PULSE 108; RESP 18; TEMP 37.2; O2SAT 98
[2023-12-05] MEDS: Acetaminophen 500 MG TAB 1000 MG PO (15:07)
[2023-12-05] MEDS: Simethicone/Sod Bicarb/Cit Ac, 4 gram PACKET 1 PACKET PO (15:08)
[2023-12-05] MEDS: Dicyclomine 10 MG CAP PO (15:08)
== END 2023-12-05 15:11 ==
PROVIDERS: Emergency Provider Emergency Medicine; PCP Nurse Practitioner Family
DX: R44.0 Auditory hallucinations (principal); R45.851 Suicidal ideations; S50.811A Abrasion of right forearm, initial encounter; X78.8XXA Intentional self-harm by other sharp object, initial encounter; Z87.891 Personal history of nicotine dependence; F41.9 Anxiety disorder, unspecified
CPT/HCPCS: 00123; 81025; 82962; 99285

== ENCOUNTER 2023-12-22 17:23 | Emergency (ER) | payer MEDICAID, SELFPAY ==
[2023-12-22] VITALS (17 sets, daily range): BP systolic 150–193; BP diastolic 84–119; PULSE 92–126; RESP 20; TEMP 36.5; O2SAT 95–98
--- NOTE | 2023-12-22 17:45 | DI.RAD_ITS ---
Exam(s) XR THORACIC SPINE COMPLETE EXAM: XR THORACIC SPINE COMPLETE CLINICAL HISTORY: pain post lifting. TECHNIQUE: 2D digital imaging was performed of the thoracic spine. Three views were obtained. AP, swimmer's and lateral views were obtained. COMPARISON: No exams were available for comparison FINDINGS: BONES: There is no fracture or destructive lesion. The vertebral bodies and posterior elements are un remarkable. DISKS:Alignment is within normal limits. Interverebral disc spaces are maintained. SOFT TISSUE: Visualized lungs are clear. IMPRESSION: No acute fracture or subluxation. DATA REPOSITORY: RADIATION DOSE DELIVERED:
[2023-12-22] MEDS: Orphenadrine 60 MG/2 ML VIAL IM (17:58)
[2023-12-22] MEDS: Ketorolac 15 MG/ML VIAL 7.5 MG IM (18:35)
[2023-12-22] MEDS: diazePAM 5 MG TAB PO ×2 (18:37→19:42)
[2023-12-22 19:04] LABS: Abs Immature Grans 0.04 10^3/uL (0.0-0.06); Absolute Basophil Count 0.07 10^3/uL (0.0-0.2); Absolute Eosinophil Count 0.18 10^3/uL (0.0-0.7); Absolute Lymphocyte Count 2.35 10^3/uL (1.2-3.4); Basophils % 0.6; Eosinophils % 1.5; HCT 42.9 % (36.0-46.0); HGB 13.5 g/dL (11.2-15.7); Immature Grans % 0.3; Lymphocytes % 20.1; MCH 22.6 pg (27.0-33.0); MCHC 31.5 % (32.0-36.0); MCV 72 fL (80-95); Monocytes % 7.7; Neutrophils % 69.8; RBC 5.97 10^6/uL (3.93-5.22); RDW 15.4 % (11.7-14.6); RDW-SD 39.3 fL; WBC 11.68 10^3/uL (4.4-10.8)
--- NOTE | 2023-12-22 19:06 | ED.GENADUL_ITS ---
HPI General Date/Time Provider Initiated Documentation: 12/22/23 17:34 . 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 Started this morning and secondary to worsening pain and she presents here for assessment. She denies any numbness or tingling to her extremities. Denies any chest pain, abdominal pain, shortness of breath. She denies any changes in bowel or bladder. Patient also endorses suicidality at home, does not currently feel suicidal at time of presentation. Denies any attempts to harm self today. Denies any homicidal ideation. Related Data Home Medications Medication Instructions Recorded Confirmed labetalol 100 mg tablet 100 mg PO QAM 09/25/21 12/22/23 melatonin 3 mg tablet 6 mg PO HS 09/25/21 12/22/23 pantoprazole 40 mg tablet,delayed 40 mg PO QAM 11/22/22 12/22/23 release clonidine HCl 0.2 mg tablet 0.2 mg PO QHS 02/15/23 12/22/23 albuterol sulfate 90 mcg/actuation 2 puff inhalation Q6H PRN 03/24/23 12/22/23 aerosol inhaler (Ventolin HFA) buspirone 7.5 mg tablet 7.5 mg PO BID 03/24/23 12/22/23 docusate sodium 100 mg capsule 100 mg PO DAILY 03/24/23 12/22/23 quetiapine 25 mg tablet 25 mg PO BID 03/24/23 12/22/23 semaglutide 0.25 mg or 0.5 mg (2 0.25 mg subcut QWEEK 08/11/23 12/22/23 mg/3 mL) subcutaneous pen injector (Ozempic) diphenoxylate-atropine 2.5 1 tab PO DAILY #10 tabs 09/22/23 12/22/23 mg-0.025 mg tablet (Lomotil) medroxyprogesterone 150 mg/mL 150 mg IM [id number] #1 mL 11/14/23 12/22/23 intramuscular syringe metaxalone 800 mg tablet 800 mg PO TID PRN #20 tabs 12/22/23 Previous Rx's Medication Instructions Recorded diphenoxylate-atropine 2.5 1 tab PO DAILY #10 tabs 09/22/23 mg-0.025 mg tablet (Lomotil) medroxyprogesterone 150 mg/mL 150 mg IM [id number] #1 mL 11/14/23 intramuscular syringe metaxalone 800 mg tablet 800 mg PO TID PRN #20 tabs 12/22/23 Allergies Allergy/AdvReac Type Severity Reaction Status Date / Time fluticasone Allergy Severe unknown Verified 12/22/23 17:33 [From Flovent HFA] fluoxetine Allergy Intermediate Other (See Verified 12/22/23 17:33 Comment) ibuprofen Allergy Intermediate vomiting Verified 12/22/23 17:33 lisinopril Allergy Intermediate unknown Verified 12/22/23 17:33 naproxen [From Aleve] Allergy Intermediate vomiting Verified 12/22/23 17:33 paroxetine HCl [From Paxil] Allergy Intermediate Hives Verified 12/22/23 17:33 risperidone [From Risperdal] Allergy Intermediate Hives Verified 12/22/23 17:33 sertraline Allergy Intermediate Other (See Verified 12/22/23 17:33 Comment) NSAIDS (Non-Steroidal Allergy Due to Verified 12/22/23 17:33 Anti-Inflamma prior kidney damage acetaminophen AdvReac Nausea Unverified 12/22/23 17:33 amoxicillin AdvReac Nausea Verified 12/22/23 17:33 seafood Allergy Intermediate unknown Uncoded 12/22/23 17:33 enviornmental Allergy Mild sneezing Uncoded 12/22/23 17:33 dark sodas AdvReac Severe Other (See Uncoded 12/22/23 17:33 Comment) General Stated Complaint: Nk/Back Pain MARY KAY: 4 Course Vital Signs Vital signs: Vital Signs Temperature 36.5 C 12/22/23 17:27 Pulse 118 H 12/22/23 17:27 Respiratory Rate 20 12/22/23 17:27 Blood Pressure 165/115 H 12/22/23 17:27 Pulse Oximetry 95 12/22/23 17:27 Temperature 36.5 C 12/22/23 17:27 Temperature Source Skin 12/22/23 17:27 Pulse 118 H 12/22/23 17:27 Pulse 112 H 12/22/23 18:40 Respiratory Rate 20 12/22/23 17:27 Blood Pressure 164/96 H 12/22/23 18:40 Blood Pressure Position Sitting 02/15/24 17:27 Pulse Oximetry 96 12/22/23 18:40 Oxygen Delivery Method Room Air 12/22/23 17:27 Oxygen Flow Rate 0 12/22/23 17:27 Pain Level 10 12/22/23 17:27 Medical Decision Making 28-year-old female presenting with back pain, she has some mild tenderness with palpation but no significant trauma to the affected area, x-ray was ordered for evaluation does not show evidence of acute abnormality, she has neurologically intact Strength and sensation are intact She is ambulatory with steady although antalgic gait Patient is mildly tachycardic, when I review her prior pills, this is not unusual for her Blood pressure has improved, will continue on all of her prescribed meds She is feeling improvement after 10 mg of Valium, ambulating and in no acute distress Patient did ask that we contact [facility] as she is supposed to have a visitor stay with her this evening, [facility] was notified that patient is in the emergency department and during this notification, they expressed concern regarding patient's safety at home stating that they are concerned that her self-harm with cutting was increasing and that she was making suicidal statements On arrival here patient is alert, oriented, of decisional capacity, is not under the influence of mood altering substances per my assessment and denies any suicidality, she states that she has been cutting and she does not wish to take her life, she is cutting herself to experience pain per patient She denies any attempts to take her life in the past several days and states that she will likely continue to participate in cutting at home [facility] feels the patient should be voluntary status, however patient spoke with her guardian who wishes patient to be discharged home Patient also states that she will lose her hotel room if she does not return there this evening She states she is worried about her depression and she is quite depressed but does not have suicidal ideation at time of my assessment I think this patient is presenting for back pain and she was evaluated thoroughly for her back pain EKG performed, I do not see evidence of significant acute abnormality, patient is conversant and pleasant so and has been calm and cooperative throughout this evaluation, she is engaging in conversation and does not endorse any auditory or visual hallucinations, cranial nerves II through XII intact, ambulatory with steady gait [facility] [employer] was again consulted and made aware that patient would like to be discharged home per her guardian and fear of losing her hotel room, I was informed that patient will need to be EE'D and I do not feel comfortable performing in the ED at this patient right now she does not meet criteria, she does not pose risk per my assessment of harming herself appears to be competent to return to her home at this time Patient has back pain which is the primary reason why she presented to the emergency department, she is feeling better and ambulatory with steady gait around the emergency department, she is moving without difficulty and excellent condition to be discharged home at this time, she will give a prescription for Skelaxin for home as needed for pain Quality:SDOH Health Related Social Needs: Health related social needs inadequate housing PFSH All Active Problems (Updated 12/22/23 @ 21:27 by HARRISON Nava) Back pain (Acute) Deliberate self-cutting (Acute) Auditory hallucinations (Acute) Breakthrough bleeding on depo provera (Acute) Encounter for Depo-Provera contraception (Acute) Since 2017. Nicotine dependence (Acute) Contraception, generic surveillance (Acute) Hx of OCPs, Nexplanon, DepoProvera. 02/2023 Norethindrone 0.35mg till 05/2023. Resumed DepoProvera. 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 Hypertrophy of tonsils and adenoids Suicidal ideation Bipolar 2 disorder RBC microcytosis Vitamin D deficiency Steatosis of liver Back pain Dysuria Abdominal pain History of allergic reaction Hemolytic uremic syndrome PTSD (post-traumatic stress disorder) Mesenteric lymphadenitis Drug abuse, episodic use SASHA (stress urinary incontinence, female) Pain, dental Blood in stool History of mastoiditis Jaw pain TMJ tenderness, left Otalgia, right ear BMI 40.0-44.9, adult Overactive bladder (02/09/18) Generalized headaches (12/31/16) Depression (12/31/16) Depo-Provera contraceptive status (09/13/17) Depo-Provera contraception since 08/11/2017. Patient is using the Depo- Provera for menstrual cycle control. ADHD (attention deficit hyperactivity disorder) (12/31/16) Surgical History History of colonoscopy (~06/2022) Hx of tooth extraction History of kidney surgery Social History Smoking/Tobacco Use Status: Former Tobacco Use Quit Date: 11/27/22 Smoking risk assessment performed?: Yes Alcohol Intake: former Drug use: Current Sobriety Substance use type: does not use Sexually active: Yes (female partner only now(May 2022). Has never had intercourse) Do you think of yourself as: lesbian/cash/homosexual What is your relationship status?: never Panel score (0-1 are the most socially isolated patients): 0 Do you feel safe at home: Yes Do you feel safe in your relationship?: Yes Additional Social history: pt is staying at the [facility] at the moment due to being homeless, unable to afford enema. Female Reproductive History Menstrual control method: progesterone injection History History 0 Para Hx # Term Pregnancies Multiple births Hx # Pregnancies Ectopic pregnancies AB induced Hx Number of Living Children AB spontaneous Discharge Plan Disposition Patient Disposition: Home Condition: Stable Discharge Details Clinical Impression: Back pain Primary Care Provider: Niyah Serna ED Provider: Leonor Simons Home Meds and New Rx's Prescriptions: New metaxalone 800 mg tablet 800 mg PO TID PRNQty: 20 0RF Continued melatonin 3 mg tablet 6 mg PO HS medroxyprogesterone 150 mg/mL syringe 150 mg IM [id number] Qty: 1 5RF labetalol 100 mg tablet 100 mg PO QAM Patient Comments: 1/2 Tab QAM Ozempic 0.25 mg or 0.5 mg (2 mg/3 mL) pen injector 0.25 mg subcut QWEEK Patient Comments: takes Qwednesdays Rx Instructions: for 4 weeks albuterol sulfate [Ventolin HFA] 90 mcg/actuation HFA aerosol inhaler 2 puff inhalation Q6H PRN quetiapine 25 mg tablet 25 mg PO BID buspirone 7.5 mg tablet 7.5 mg PO BID docusate sodium 100 mg capsule 100 mg PO DAILY pantoprazole 40 mg Tablet,Delayed Release (Dr/Ec) 40 mg PO QAM clonidine HCl 0.2 mg tablet 0.2 mg PO QHS diphenoxylate-atropine [Lomotil] 2.5-0.025 mg tablet 1 tab PO DAILY Qty: 10 0RF Hold Instructions: pt now constipated Discharge Instructions Instructions: Back Pain (ED) Additional Instructions: take skelaxin as needed for pain warm compresses light stretching return earlier with new or worsening complaints Referrals: Niyah Serna [Primary Care Provider] -
[2023-12-22 19:14] LABS: Bilirubin Negative (Negative); Blood Negative (Negative); Clarity Clear (Clear); Glucose Negative (Negative); Ketones Negative (Negative); Leukocyte Esterase Negative (Negative); Nitrite Negative (Negative); Specific Gravity 1.025 (1.005-1.025); Urobilinogen 0.2 mg/dL (Up to 0.2); pH 7.5 (5-8)
[2023-12-22 19:19] LABS: ALT 28 U/L (14-59); AST 14 U/L (15-37); Alkaline Phosphatase 102 U/L (46-116); Anion Gap 13.2 mmol/L (3-11); BUN 8 mg/dL (7-18); Bilirubin, Total 0.4 mg/dL (0.2-1.0); CO2 22.8 mmol/L (21.0-32.0); CREATININE 0.7 mg/dL (0.55-1.02); Calcium 9.4 mg/dL (8.5-10.1); Chloride 104 mmol/L (98-107); Estimated GFR 122.25 (mL/min/1.73m2); Glucose 152 mg/dL (74-106); Magnesium 2.1 mg/dL (1.8-2.4); Potassium 3.8 mmol/L (3.5-5.1); Sodium 140 mmol/L (136-145); TSH (W/Ref FT4) 1.51 uIU/mL (0.36-3.74)
[2023-12-22 19:21] LABS: Absolute Neutrophil Count 8.15 10^3/uL (1.2-6.7)
[2023-12-22 19:23] LABS: Diff Comment RBC Morph Reviewed; Microcytosis 1+; Platelet Count 313 10^3/uL (130-400)
[2023-12-22 19:31] LABS: Bacteria Rare HPF (Negative); Crystals Negative HPF (Negative); Epithelial Cells Moderate HPF (Negative); Other Cells Rare Transitional (Negative); RBC 0-2 HPF (0-2); WBC 0-2 HPF (0-5)
[2023-12-22 19:32] LABS: *AMPHETAMINES SCREEN URINE Negative (Negative); *BARBITURATES SCREEN URINE Negative (Negative); *BENZODIAZEPINES SCREEN URINE Negative (Negative); C & S Indicated? No/Sq. Contamination; Cannabinoids THC Negative (Negative); Casts Negative LPF (Negative); Cocaine Screen,Urine Negative (Negative); METHADONE URINE SCREEN Negative (Negative); Mucus Trace (Negative); OPIATES URINE SCREEN Negative (Negative)
[2023-12-22 19:35] LABS: Tricyclic Antidepressants Negative (Negative)
--- NOTE | 2023-12-22 21:38 | NUR.NOTE ---
Nursing Note: Patient denied suicidal ideation at this time. Patient states she was concerned about getting kicked out of her hotel room if she did not go home tonight and is most concerned about being alone. Patient stated that she knows about resources including 988 phone number to call if she is struggling. Patient has been in contact with complex case manager several times while in the ER. workers compensation claims analyst is picking her up and bringing her home following discharge.
--- NOTE | 2023-12-22 22:20 | PDOC.MHCN_ITS ---
Date of service: 12/22/23 Time of Service: 20:03 PHQ-9 Over the last 2 weeks, how often have you been bothered by any of the following problems? 1. Little interest or pleasure in doing things: nearly every day 2. Feeling down, depressed, or hopeless: several days 3. Trouble falling or staying asleep, or sleeping too much: several days 4. Feeling tired or having little energy: nearly every day 5. Poor appetite or overeating: several days 6. Feeling bad about yourself - or that you are a failure or have let yourself and your family down: nearly every day 7. Trouble concentrating on things, such as reading the newspaper or watching television: nearly every day 8. Moving or speaking so slowly that other people could have noticed? - Or the opposite - being so fidgety or restless that you have been moving around a lot more than usual: nearly every day 9. Thoughts that you would be better off or of hurting yourself in some way: nearly every day Total score: 21 If you checked off any problems, how difficult have these problems made it for you to do your work, take care of things at home, or get along with other people?: very difficult Source: Developed by Drs. Alejandro Ward, Melva Mancilla, Dave Sutton and colleagues, with an educational marcio from [employer]. Suicide Severity Rate CSSRS Have you wished you were or wished you could go to sleep and not wake up?: Yes Have you actually had any thoughts of killing yourself?: Yes CSSRS2 Have you been thinking about how you might do this?: Yes Have you had these thoughts and had some intention of acting on them?: Yes Have you started to work out or worked out the details of how to kill yourself? Do you intend to carry out this plan?: Yes CSSRS3 Have you ever done anything, started to do anything or prepared to do anything to end your life?: Yes CSSRS4 Was this within the past three months?: Yes Screening Score Total Score: 8 Screening: [facility] Emergency Note Release [facility] release signed:: No Reason for Visit Back pain initially, then indicated struggling with SI, Depression. Client created safe for now plan on 12/21/2022 with [facility], client reported feeling needing additional supports. In the last 2 weeks has the pt presented for ES prior to today?: Yes, presented at [facility] Client Information Client is: IDDS Well Housed: No,status: Homeless Non Suicidal Self Injury Current: Yes, NSSIB cutting, reported last cutting episode today 12/22/2023 History: yes, NSSIB Cutting Safety Risk/Harm to Self or Others Current Ideation to Harm Self or Others: Yes to self. (reported 10 on Likert scale 0-10) Intent: yes, has intent. Plan: yes,has a plan. History of suicide attempt: yes,history of suicide attempt reported. Details of previous suicide attempt: reported multiple attempt hx and to others. Intent: No Plan: no, does not have a plan. History of becoming violent with another person(any age): no history of violence with others. Risk: Does risk to harm exist?: yes. Access to means: Yes. Details: unknown, client initially was boarding at [facility], with no access to means . Risk: High Risk Duty to warn indicated: No Asssessment/Mental Status Appearance: Disheveled Attitude: Cooperative Behavior: Unremarkable Speech: Soft Affect: Cogruent with mood Mood: Sad, Stressed and Depressed Thought process: Unremarkable Hallucinations: No evidence Delusions: No evidence Attention: Unremarkable Perception: Not impaired Orientation: Fully orientated Memory: Intact Insight: Fair Judgement: Poor (reported NSSIB) Neurovegetative Symptoms Sleep: Decrease Appetitie: Decrease Interests: Decrease Energy: Decrease Libido: Not applicable Substance Use: Do you use nicotine?: No Have you used substances in the last 7 days?: No Additional Issues: Assaultive/Threatening Behavior: No Medical Concerns: No Client engaged in active self harm w/weapon: No Threatening to run away: No Child reported abuse/neglect: No Voluntarily presenting for services: Yes Domestic violence is a concern: No Extreme Psychosis or extreme behavior is present: No Impression Client is a 28 year old female, presenting via [facility] at [facility] for crisis assessment. Client initially arrived at [facility] due to back pain. Client endorsing depression and SI. IDDS application security consultant crane crew supervisor Estephanie Ford and IDDS National Park Ranger Dayday Pickard are present during assessment. Client presents orientated across all spheres, dress disheveled, denies HI endorses SI, stated on a Likert scale 10 0/10 on intent. Client stated difficulty with controlling SI, thoughts lingering i do better when I'm busy but its been really hard, and i hurt my back and the thoughts came in strong client reported. No evidence of a thought dx. Client reported struggling with familial stressors and interpersonal conflicts that are contributing to distress. Client stated most of my problems are coming from the [place] right now, my mom yelling at me; I feel like my family only bothers me when I have money client expressed struggling with grief of loosing adela. Client reported I left my treatment program at [facility] to early, I was just excited to get back and start my job but they gave my job to someone else. client reported I feel lost, I feel alone and I cant stop cutting client reported engaging in NSSIB earlier today. Client reported I do need help, my thoughts are hard to control and getting more aggressive, I think it will be better up in critical access hospital than here. Client reported low frustration and presented labile. Client reported I just feel like I'm not good enough client scored a 21 on PHQ9 endorsing depressive symptoms. When discussing supports client requested wanting additional inpatient support and voluntary placement. This technical publications writer received call from [facility] Provider Ronak whom reported client guardian was not amendable to voluntary placement, it was reported guardian stated that it was a waste of resources and she can go home and watch a movie; Client was amendable to voluntary placement. This technical publications writer collaborated with IDDS executive office manager, IDDS crane crew supervisor, MAG Mcknight and ELIANA clinical Director on concerns of client safety based on client endorsing symptoms of SI, 10 on Likert scale 0/10 when asked on intent. [facility] indicated that client will be D/C and Provider Ronak does not feel client meets criteria for EE. [facility] is to take liability as it is against this writers clinical opinion to D/C client to the community due to acuity of symptoms reported. Plan/Disposition Recommended Disposition: Hospitalization ([facility] D/C client, guardian not in agreeance of voluntary admission. D/C is against [facility] clinical recommendation. ) No. Plan: This technical publications writer collaborated with IDDS executive office manager, IDDS crane crew supervisor, MAG Mcknight and ELIANA clinical Director on concerns of client safety based on client endorsing symptoms of SI, 10 on Likert scale 0/10 when asked on intent. [facility] indicated that client will be D/C and Provider Ronak does not feel client meets criteria for EE. [facility] is to take liability as it is against this writers clinical opinion to D/C client to the community due to acuity of symptoms reported. Person reported agreement to plan: Yes Reports/communication Outcome discussed with: ED/Personnel (Provider Ronak) and Other (IDDS National Park Ranger, IDDS application security consultant crane crew supervisor, MAG Mcknight, AO Clinical Information Technology Associate )
== END 2023-12-22 21:51 | disposition home or self-care (01) ==
PROVIDERS: Emergency Provider Physician Assistant; PCP Nurse Practitioner Family
DX: M54.50 Low back pain, unspecified (principal); M54.6 Pain in thoracic spine; Z87.891 Personal history of nicotine dependence
CPT/HCPCS: 00123; 36415; 80053; 80307; 96127; 96372; 96374; 99283; J2360; 72072; 81003; 81015; 83735; 84443; 85025; J1885

== ENCOUNTER 2024-01-01 16:11 | Emergency (ER) | payer MEDICAID, SELFPAY ==
[2024-01-01] VITALS (20 sets, daily range): BP systolic 115–156; BP diastolic 74–115; PULSE 94–110; RESP 16–18; TEMP 36.8; O2SAT 96–98
--- NOTE | 2024-01-01 16:35 | ED.GENADUL_ITS ---
Discharge Plan Disposition Patient Disposition: Home Condition: Improving Discharge Details Chief Complaint: GenMedical Clinical Impression: Nausea Primary Care Provider: Niyah Serna ED Provider: Zeb Mcguire Home Meds and New Rx's Prescriptions: No Action melatonin 3 mg tablet 6 mg PO HS medroxyprogesterone 150 mg/mL syringe 150 mg IM [id number] Qty: 1 5RF labetalol 100 mg tablet 100 mg PO QAM Patient Comments: 1/2 Tab QAM Ozempic 0.25 mg or 0.5 mg (2 mg/3 mL) pen injector 0.25 mg subcut QWEEK Patient Comments: takes Qwednesdays Rx Instructions: for 4 weeks albuterol sulfate [Ventolin HFA] 90 mcg/actuation HFA aerosol inhaler 2 puff inhalation Q6H PRN quetiapine 25 mg tablet 25 mg PO BID buspirone 7.5 mg tablet 7.5 mg PO BID docusate sodium 100 mg capsule 100 mg PO DAILY pantoprazole 40 mg Tablet,Delayed Release (Dr/Ec) 40 mg PO QAM clonidine HCl 0.2 mg tablet 0.2 mg PO QHS metaxalone 800 mg tablet 800 mg PO TID PRNQty: 20 0RF diphenoxylate-atropine [Lomotil] 2.5-0.025 mg tablet 1 tab PO DAILY Qty: 10 0RF Hold Instructions: pt now constipated Discharge Instructions Instructions: Acute Nausea and Vomiting (ED) Additional Instructions: Please follow-up with your primary care physician. HPI General Date/Time Provider Initiated Documentation: 01/01/24 16:13 . HPI Narrative: 28-year-old female type 2 diabetes presents with sensation of dehydration feels that she cannot keep up with her hydration, has been on Ozempic over the last 6 months. Denies nausea or vomiting however feels very thirsty and has been peeing a lot. Blood sugar 130s at home. No history of insulin use per patient Related Data Home Medications Medication Instructions Recorded Confirmed labetalol 100 mg tablet 100 mg PO QAM 09/25/21 01/01/24 melatonin 3 mg tablet 6 mg PO HS 09/25/21 01/01/24 pantoprazole 40 mg tablet,delayed 40 mg PO QAM 11/22/22 01/01/24 release clonidine HCl 0.2 mg tablet 0.2 mg PO QHS 02/15/23 01/01/24 albuterol sulfate 90 mcg/actuation 2 puff inhalation Q6H PRN 03/24/23 01/01/24 aerosol inhaler (Ventolin HFA) buspirone 7.5 mg tablet 7.5 mg PO BID 03/24/23 01/01/24 docusate sodium 100 mg capsule 100 mg PO DAILY 03/24/23 01/01/24 quetiapine 25 mg tablet 25 mg PO BID 03/24/23 01/01/24 semaglutide 0.25 mg or 0.5 mg (2 0.25 mg subcut QWEEK 08/11/23 01/01/24 mg/3 mL) subcutaneous pen injector (Ozempic) diphenoxylate-atropine 2.5 1 tab PO DAILY #10 tabs 09/22/23 01/01/24 mg-0.025 mg tablet (Lomotil) medroxyprogesterone 150 mg/mL 150 mg IM [id number] #1 mL 11/14/23 01/01/24 intramuscular syringe metaxalone 800 mg tablet 800 mg PO TID PRN #20 tabs 12/22/23 01/01/24 Previous Rx's Medication Instructions Recorded diphenoxylate-atropine 2.5 1 tab PO DAILY #10 tabs 09/22/23 mg-0.025 mg tablet (Lomotil) medroxyprogesterone 150 mg/mL 150 mg IM [id number] #1 mL 11/14/23 intramuscular syringe metaxalone 800 mg tablet 800 mg PO TID PRN #20 tabs 12/22/23 Allergies Allergy/AdvReac Type Severity Reaction Status Date / Time fluticasone Allergy Severe unknown Verified 01/01/24 16:16 [From Flovent HFA] fluoxetine Allergy Intermediate Other (See Verified 01/01/24 16:16 Comment) ibuprofen Allergy Intermediate vomiting Verified 01/01/24 16:16 lisinopril Allergy Intermediate unknown Verified 01/01/24 16:16 naproxen [From Aleve] Allergy Intermediate vomiting Verified 01/01/24 16:16 paroxetine HCl [From Paxil] Allergy Intermediate Hives Verified 01/01/24 16:16 risperidone [From Risperdal] Allergy Intermediate Hives Verified 01/01/24 16:16 sertraline Allergy Intermediate Other (See Verified 01/01/24 16:16 Comment) NSAIDS (Non-Steroidal Allergy Due to Verified 01/01/24 16:16 Anti-Inflamma prior kidney damage acetaminophen AdvReac Nausea Unverified 01/01/24 16:16 amoxicillin AdvReac Nausea Verified 01/01/24 16:16 seafood Allergy Intermediate unknown Uncoded 01/01/24 16:16 enviornmental Allergy Mild sneezing Uncoded 01/01/24 16:16 dark sodas AdvReac Severe Other (See Uncoded 01/01/24 16:16 Comment) General Stated Complaint: GenMedical MARY KAY: 4 Review of Systems Narrative: Review of Systems Constitutional: negative Eyes: negative ENT: negative Cardiovascular: negative Respiratory: negative Gastrointestinal: negative : Polyuria Musculoskeletal: negative Skin: negative Neurologic: negative Psych: negative Exam Narrative Exam Narrative: Physical Examination General: alert, awake, cooperative, resting comfortably, no acute distress HEENT: normocephalic, atraumatic; PERRL, EOM intact, conjunctiva normal; no nasal discharge; moist mucous membranes, oral and pharyngeal mucosa normal, tolerating secretions Neck: supple, trachea midline; full ROM Chest: normal to inspection Respiratory: normal respiratory effort, speaking in full sentences Cardiac: Tachycardia, regular rhythm, S1S2 intact, no murmurs rubs or gallops GI: abdomen soft, non-tender, non-distended; no palpable mass or hepatosplenomegaly Skin: no lesions, rashes or trauma appreciated Neuro: AAOx3, normal speech, moving all extremities Psych: Appropriate mood and affect Course Vital Signs Vital signs: Vital Signs Temperature 36.8 C 01/01/24 16:09 Pulse 105 H 01/01/24 16:09 Respiratory Rate 18 01/01/24 16:09 Blood Pressure 156/90 H 01/01/24 16:09 Pulse Oximetry 97 01/01/24 16:09 Temperature 36.8 C 01/01/24 16:09 Temperature Source Temporal Artery Scan 01/01/24 16:09 Pulse 105 H 01/01/24 16:09 Respiratory Rate 18 01/01/24 16:09 Respiratory Effort Normal, Non-Labored 01/01/24 16:14 Blood Pressure 156/90 H 01/01/24 16:09 Blood Pressure Position Sitting 01/01/24 16:09 Pulse Oximetry 97 01/01/24 16:09 Oxygen Delivery Method Room Air 01/01/24 16:09 Oxygen Flow Rate 0 01/01/24 16:09 Pain Level 0 01/01/24 16:09 Medical Decision Making 28-year-old female history of type 2 diabetes, on Ozempic, presents with sensation of dehydration feels very thirsty has been urinating a lot blood sugars in the 130s at home, blood sugar 123 at triage, denies nausea or vomiting, mildly tachycardic on arrival moist mucous membranes nontoxic nontachypneic. Consider mild dehydration in the setting of Ozempic use versus viral syndrome versus UTI, lower suspicion for DKA given normoglycemia on arrival no Kussmaul breathing no external evidence of dehydration on examination. However will obtain basic labs screening urinalysis, fluids antiemetics close reassessment. 17: 39 resting comfortably no acute distress. Labs and urinalysis unremarkable. Patient has a return of her appetite, currently eating a sandwich. Quality:SDOH Health Related Social Needs: Health related social needs inadequate housing PFSH All Active Problems (Updated 01/01/24 @ 17:40 by Zeb Mcguire MD) Nausea (Acute) Back pain (Acute) Deliberate self-cutting (Acute) Auditory hallucinations (Acute) Breakthrough bleeding on depo provera (Acute) Encounter for Depo-Provera contraception (Acute) Since 2016. Nicotine dependence (Acute) Contraception, generic surveillance (Acute) Hx of OCPs, Nexplanon, DepoProvera. 02/2023 Norethindrone 0.35mg till 05/2023. Resumed DepoProvera. 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 Hypertrophy of tonsils and adenoids Suicidal ideation Bipolar 2 disorder RBC microcytosis Vitamin D deficiency Steatosis of liver Back pain Dysuria Abdominal pain History of allergic reaction Hemolytic uremic syndrome PTSD (post-traumatic stress disorder) Mesenteric lymphadenitis Drug abuse, episodic use SASHA (stress urinary incontinence, female) Pain, dental Blood in stool History of mastoiditis Jaw pain TMJ tenderness, left Otalgia, right ear BMI 40.0-44.9, adult Overactive bladder (02/09/18) Generalized headaches (12/31/16) Depression (12/31/16) Depo-Provera contraceptive status (09/13/17) Depo-Provera contraception since 08/11/2017. Patient is using the Depo- Provera for menstrual cycle control. ADHD (attention deficit hyperactivity disorder) (12/31/16) Surgical History History of colonoscopy (~06/2022) Hx of tooth extraction History of kidney surgery Social History Smoking/Tobacco Use Status: Former Tobacco Use Quit Date: 11/27/22 Smoking risk assessment performed?: Yes Alcohol Intake: former Drug use: Current Sobriety Substance use type: does not use Sexually active: Yes (female partner only now(May 2022). Has never had intercourse) Do you think of yourself as: lesbian/cash/homosexual What is your relationship status?: never Panel score (0-1 are the most socially isolated patients): 0 Do you feel safe at home: Yes Do you feel safe in your relationship?: Yes Female Reproductive History Menstrual control method: progesterone injection History History 0 Para Hx # Term Pregnancies Multiple births Hx # Pregnancies Ectopic pregnancies AB induced Hx Number of Living Children AB spontaneous
[2024-01-01 16:41] LABS: Abs Immature Grans 0.03 10^3/uL (0.0-0.06); Absolute Basophil Count 0.06 10^3/uL (0.0-0.2); Absolute Eosinophil Count 0.13 10^3/uL (0.0-0.7); Absolute Lymphocyte Count 2.02 10^3/uL (1.2-3.4); Absolute Monocyte Count 0.75 10^3/uL (0.1-0.8); Absolute Neutrophil Count 6.75 10^3/uL (1.2-6.7); Basophils % 0.6; Eosinophils % 1.3; HCT 42.6 % (36.0-46.0); HGB 13.3 g/dL (11.2-15.7); Immature Grans % 0.3; Lymphocytes % 20.7; MCH 22.5 pg (27.0-33.0); MCHC 31.2 % (32.0-36.0); MCV 72 fL (80-95); MPV 11.8 fL (8.0-11.0); Monocytes % 7.7; Neutrophils % 69.4; RBC 5.92 10^6/uL (3.93-5.22); RDW 14.9 % (11.7-14.6); RDW-SD 38.3 fL; WBC 9.74 10^3/uL (4.4-10.8)
[2024-01-01 16:51] LABS: Bilirubin Negative (Negative); Blood Negative (Negative); Clarity Clear (Clear); Glucose Negative (Negative); Ketones Negative (Negative); Leukocyte Esterase Negative (Negative); Nitrite Negative (Negative); Specific Gravity 1.025 (1.005-1.025); Urobilinogen 0.2 mg/dL (Up to 0.2)
[2024-01-01] MEDS: Normal Saline 1,000 ML 1000 ML IV (16:51)
[2024-01-01] MEDS: Ondansetron 4 MG/2 ML VIAL IVP (16:52)
[2024-01-01 16:56] LABS: Diff Comment RBC Morph Reviewed; Platelet Count 301 10^3/uL (130-400)
[2024-01-01 16:57] LABS: Hypochromasia 1+; Microcytosis 1+
[2024-01-01 17:00] LABS: ALT 25 U/L (14-59); AST 13 U/L (15-37); Alkaline Phosphatase 102 U/L (46-116); Anion Gap 11.8 mmol/L (3-11); BUN 7 mg/dL (7-18); Bilirubin, Total 0.4 mg/dL (0.2-1.0); CO2 25.2 mmol/L (21.0-32.0); CREATININE 0.9 mg/dL (0.55-1.02); Calcium 9.3 mg/dL (8.5-10.1); Chloride 101 mmol/L (98-107); Estimated GFR 90.42 (mL/min/1.73m2); Glucose 112 mg/dL (74-106); Potassium 3.9 mmol/L (3.5-5.1); Sodium 138 mmol/L (136-145); Total Protein 8.1 g/dL (6.4-8.2)
[2024-01-01 17:10] LABS: Bacteria Rare HPF (Negative); Casts Negative LPF (Negative); Crystals Negative HPF (Negative); Epithelial Cells Moderate HPF (Negative); Mucus Trace (Negative); RBC 0-2 HPF (0-2)
[2024-01-01 17:11] LABS: C & S Indicated? No/Sq. Contamination
== END 2024-01-01 18:17 | disposition home or self-care (01) ==
PROVIDERS: Emergency Provider Emergency Medicine; PCP Nurse Practitioner Family
DX: R11.0 Nausea (principal); E11.9 Type 2 diabetes mellitus without complications; Z79.85 Long-term (current) use of injectable non-insulin antidiabetic drugs; Z87.891 Personal history of nicotine dependence
CPT/HCPCS: 80053; 81025; 82962; 96361; 96374; 99284; 81003; 81015; 85025; J2405

== ENCOUNTER 2024-01-20 20:20 | Emergency (ER) | payer MEDICAID, SELFPAY ==
[2024-01-20 20:22] VITALS: BP 142/113; PULSE 131; RESP 18; TEMP 37.1; O2SAT 96
--- NOTE | 2024-01-20 20:29 | W.ED.GENAD ---
Discharge Plan Disposition Patient Disposition: Home Condition: Stable Discharge Details Chief Complaint: Urinary Clinical Impression: Dehydration Primary Care Provider: Niyah Serna ED Provider: Douglas Keith Home Meds and New Rx's Prescriptions: Continued melatonin 3 mg tablet 6 mg PO HS medroxyprogesterone 150 mg/mL syringe 150 mg IM [id number] Qty: 1 5RF labetalol 100 mg tablet 100 mg PO QAM Patient Comments: 1/2 Tab QAM Ozempic 0.25 mg or 0.5 mg (2 mg/3 mL) pen injector 0.25 mg subcut QWEEK Patient Comments: takes Qwednesdays Rx Instructions: for 4 weeks albuterol sulfate [Ventolin HFA] 90 mcg/actuation HFA aerosol inhaler 2 puff inhalation Q6H PRN quetiapine 25 mg tablet 25 mg PO BID buspirone 7.5 mg tablet 7.5 mg PO BID docusate sodium 100 mg capsule 100 mg PO DAILY pantoprazole 40 mg Tablet,Delayed Release (Dr/Ec) 40 mg PO QAM clonidine HCl 0.2 mg tablet 0.2 mg PO QHS metaxalone 800 mg tablet 800 mg PO TID PRNQty: 20 0RF diphenoxylate-atropine [Lomotil] 2.5-0.025 mg tablet 1 tab PO DAILY Qty: 10 0RF Hold Instructions: pt now constipated Discharge Instructions Instructions: Dehydration (ED) Additional Instructions: You were seen in the emergency department for your lack of urine output, you are able to urinate on your own here, there is no emergent pathology seen on your CT scan and your laboratory workup shows no sign of severe infection or sepsis, your electrolytes are within normal limits, you have no urinary tract infection. I suspect you may be mildly dehydrated and just need to push a little bit more fluids like water and may be some watered-down sports drinks like Gatorade. Please do not hesitate to return for any emergent concerns, you have a moderate amount of stool seen on your CAT scan you may want to try an [id number] laxative like MiraLAX for constipation relief. Referrals: Niyah Serna [Primary Care Provider] - HPI General Date/Time Provider Initiated Documentation: 01/20/24 20:28. HPI Narrative: 28 year-old female presents to ED today by POV/ambulating with her support person with a chief complaint of not urinating since 0130 this morning, diffuse abdominal pain, and foul vaginal odor with pelvic pain, with onset last night. Quality described as pelvic and abdominal pain, states it is her guts that hurt, and has some pain with urination, no radiation to fever, vomiting, chest pain, shortness of breath, coughing, sore throat, bowel changes. Severity is described as 7-8/10. Palliating factors include nothing specific attempted beyond hydration PO. Provoking factors include nothing specific. Events leading up to the incident/Associated Symptoms: Patient denies any known toxic food ingestion, endorses chronic kidney problems. Patient not anticoagulated. Related Data Home Medications Medication Instructions Recorded Confirmed labetalol 100 mg tablet 100 mg PO QAM 09/25/21 01/20/24 melatonin 3 mg tablet 6 mg PO HS 09/25/21 01/20/24 pantoprazole 40 mg tablet,delayed 40 mg PO QAM 11/22/22 01/20/24 release clonidine HCl 0.2 mg tablet 0.2 mg PO QHS 02/15/23 01/20/24 albuterol sulfate 90 mcg/actuation 2 puff inhalation Q6H PRN 03/24/23 01/20/24 aerosol inhaler (Ventolin HFA) buspirone 7.5 mg tablet 7.5 mg PO BID 03/24/23 01/20/24 docusate sodium 100 mg capsule 100 mg PO DAILY 03/24/23 01/20/24 quetiapine 25 mg tablet 25 mg PO BID 03/24/23 01/20/24 semaglutide 0.25 mg or 0.5 mg (2 0.25 mg subcut QWEEK 08/11/23 01/20/24 mg/3 mL) subcutaneous pen injector (Ozempic) diphenoxylate-atropine 2.5 1 tab PO DAILY #10 tabs 09/22/23 01/20/24 mg-0.025 mg tablet (Lomotil) medroxyprogesterone 150 mg/mL 150 mg IM [id number] #1 mL 11/14/23 01/20/24 intramuscular syringe metaxalone 800 mg tablet 800 mg PO TID PRN #20 tabs 12/22/23 01/20/24 Previous Rx's Medication Instructions Recorded diphenoxylate-atropine 2.5 1 tab PO DAILY #10 tabs 09/22/23 mg-0.025 mg tablet (Lomotil) medroxyprogesterone 150 mg/mL 150 mg IM [id number] #1 mL 11/14/23 intramuscular syringe metaxalone 800 mg tablet 800 mg PO TID PRN #20 tabs 12/22/23 Allergies Allergy/AdvReac Type Severity Reaction Status Date / Time fluticasone Allergy Severe unknown Verified 01/20/24 20:26 [From Flovent HFA] fluoxetine Allergy Intermediate Other (See Verified 01/20/24 20:26 Comment) ibuprofen Allergy Intermediate vomiting Verified 01/20/24 20:26 lisinopril Allergy Intermediate unknown Verified 01/20/24 20:26 naproxen [From Aleve] Allergy Intermediate vomiting Verified 01/20/24 20:26 paroxetine HCl [From Paxil] Allergy Intermediate Hives Verified 01/20/24 20:26 risperidone [From Risperdal] Allergy Intermediate Hives Verified 01/20/24 20:26 sertraline Allergy Intermediate Other (See Verified 01/20/24 20:26 Comment) NSAIDS (Non-Steroidal Allergy Due to Verified 01/20/24 20:26 Anti-Inflamma prior kidney damage acetaminophen AdvReac Nausea Unverified 01/20/24 20:26 amoxicillin AdvReac Nausea Verified 01/20/24 20:26 seafood Allergy Intermediate unknown Uncoded 01/20/24 20:26 enviornmental Allergy Mild sneezing Uncoded 01/20/24 20:26 dark sodas AdvReac Severe Other (See Uncoded 01/20/24 20:26 Comment) General Stated Complaint: Urinary MARY KAY: 3 Review of Systems All systems reviewed & are unremarkable except as noted in HPI and below Exam Narrative Exam Narrative: GENERAL APPEARANCE: Well-nourished, non-toxic, awake and alert, atraumatic, no acute distress. SKIN: Warm, pink, dry, intact, without rashes/lesions/ulcerations. HEAD: Normocephalic, atraumatic, normal hair distribution for gender/age. EYES: Pupils PERRLA, EOMs intact without nystagmus, normal conjunctiva, no exudates on lids/lashes. ENT: Nares patent, no circumoral cyanosis, no facial swelling NECK: Supple, trachea midline, painless cervical ROM. LUNGS/CHEST: Lungs CTA bilaterally- no rhonchi/rales/wheezes diffusely, non-labored respirations, normal A/P diameter, symmetrical expansion, no chest wall deformity HEART (CV/PV): Regular rate and rhythm- tachycardic without murmur, no peripheral edema, no JVD. ABDOMEN: Soft, non-distended, no guarding, diffuse tenderness in all quadrants, most focal RLQ & suprapubic, negative Mortensen's sign, no tenderness to CVA percussion bilaterally. MSK: Normal ROM, no swelling/deformity to bilateral UEs or LEs, moving all extremities without weakness, no cyanosis, spine midline without tenderness, normal curvature. NEURO: Mental Status AAOx4 - alert to person, place, time, events No facial droop, no forehead involvement. Motor: No focal weakness - strength 5/5 in bilateral UEs and LEs, proximal and distal, symmetric. Sensory: sensation intact to light touch globally. Gait normal: patient ambulated without ataxia into ED room. PSYCH: euthymic, cooperative, pleasant, appropriate speech Course Vital Signs Vital signs: Vital Signs Temperature 37.1 C 01/20/24 20:22 Pulse 131 H 01/20/24 20:22 Respiratory Rate 18 01/20/24 20:22 Blood Pressure 142/113 H 01/20/24 20:22 Pulse Oximetry 96 01/20/24 20:22 Temperature 37.1 C 01/20/24 20:22 Temperature Source Skin 01/20/24 20:22 Pulse 131 H 01/20/24 20:22 Respiratory Rate 18 01/20/24 20:22 Respiratory Effort Normal 01/20/24 20:25 Blood Pressure 142/113 H 01/20/24 20:22 Blood Pressure Position Sitting 01/20/24 20:22 Pulse Oximetry 96 01/20/24 20:22 Oxygen Delivery Method Room Air 01/20/24 20:22 Oxygen Flow Rate 0 01/20/24 20:22 Medical Decision Making This dictation utilizes [id number] dictation software and may contain unedited grammatical errors. 28 y/o F presents to ED today with a chief complaint of lack of urine output- chronic kidney problems in history- states last void 0130 this morning, endorses pelvic and abdominal pain, foul vaginal odor, denies URI symptoms/chest pain. Patient is well-known to department and has complex medical history. 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 Family and social history: significant cognitive impairment issues, poor nutrition habits, no exercise. Pertinent exam findings / vital signs include diffuse abdominal tenderness most focal in RLQ & suprapubic area, no CVA tenderness bilaterally, tachycardic. -Initial bladder scan of only ~100mL x3 Differential / pathologies of concern include sepsis, obstructive uropathy, pelvic inflammatory disease, BV or yeast, appendicitis, acute renal failure, dehydration from lack of PO intake Diagnostic studies of: -CBC, CMP, lactate, procalcitonin, CRP/ESR, creatine kinase, lipase, urinalysis, magnesium, vaginal microbial pathogen screen, NG/GC (send out), hCG qualitative, blood cultures, CT ABD/pelvis with contrast. -CBC shows no leukocytosis -CRP 2.5, ESR 25, non-specific -lactate 1.5, likely mild dehydration -UA isolated proteinuria -CK negative -magnesium wnl -lipase wnl -Blood Cx's pending -vaginal microbe screen negative for yeast/bv/trich -CT shows diffuse mesenteric lymphadenopathy, improved from priors, no emergent pathology, no hydro Interventions of: -IVF 1L NS. ED Course/Assessment/Plan: 28-year-old female with significant psych history as well as cognitive impairment states that she comes in for lack of urine output, she did urinate on her own here in the ED and her extensive workup is completely negative for any signs of emergent abdominal pathology, she does have a moderate amount of stool I would say and I encouraged her to take MiraLAX as needed for constipation, there is no hydronephrosis evident, there is no electrolyte abnormality, no UTI, no vaginal microbes, I did send gonorrhea chlamydia panel out, I suspect the patient may be had poor p.o. input of fluids, counseled on strict return criteria for any emergent concerns. Findings not consistent with sepsis, obstructing renal/ureteral stone, UTI, biliary colic, STI/PID, . Disposition of Dehydration. Patient verbalized understanding of the plan and return to ED criteria and engaged in shared decision making. Medical Records Medical records reviewed: Yes I reviewed the patient's medical records. 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 Contrast material: 350; Contrast volume: 100 ml; Contrast route: INTRAVENOUS (IV); COMPARISON: No relevant prior studies available. FINDINGS: Paranasal sinuses: Bilateral maxilloethmoidal mucosal disease/opacification noted. Oropharynx/oral cavity: No significant tonsillar enlargement. No mucosal lesions are detected. Larynx: Epiglottis is sharply defined and normal in appearance. Prevertebral and retropharyngeal spaces: Unremarkable. Salivary glands: Glands are normal in size. Thyroid: Normal. No enlarged or calcified nodules. Lymph nodes: Shotty internal jugular and submandibular lymph nodes are seen bilaterally. Trachea: Visualized trachea is unremarkable. Lungs: Unremarkable as visualized. Bones/joints: Unremarkable. No acute fracture. Soft tissues: Unremarkable. No significant soft tissue swelling. IMPRESSION: 1. No evidence of tonsillitis, peritonsillar abscess or epiglottitis. 2. Shotty internal jugular and submandibular lymph nodes are seen bilaterally, nonspecific. 3. Bilateral maxilloethmoidal mucosal disease/opacification also noted as above. Dictated and Authenticated by: Yao Mcrae MD. Ordering:LIBERTY Cole MD Lab Data Lab results reviewed: Yes I reviewed the patient's lab results. Labs: 01/20/24 21:32 Vaginal Vaginitis Screen - Final 01/20/24 21:50 Blood Blood Culture - Pending 01/20/24 21:11 Blood Blood Culture - Pending Laboratory Tests Range/Units 01/20/24 01/20/24 21:11 22:21 WBC (4.4-10.8) 10^3/uL 7.62 RBC (3.93-5.22) 10^6/uL 5.25 H Hgb (11.2-15.7) g/dL 12.0 Hct (36.0-46.0) % 38.3 MCV (80-95) fL 73 L MCH (27.0-33.0) pg 22.9 L MCHC (32.0-36.0) % 31.3 L RDW (11.7-14.6) % 15.4 H Plt Count (130-400) 10^3/uL 240 MPV (8.0-11.0) fL 11.8 H Immature Gran % 0.4 Neutrophils % 64.0 Lymphocytes % 22.0 Monocytes % 10.8 Eosinophils % 2.4 Basophils % 0.4 Nucleated RBC % (0.0-0.3) % 0.0 Absolute Neutrophils (1.2-6.7) 10^3/uL 4.88 Absolute Lymphocytes (1.2-3.4) 10^3/uL 1.68 Absolute Monocytes (0.1-0.8) 10^3/uL 0.82 H Absolute Eosinophils (0.0-0.7) 10^3/uL 0.18 Absolute Basophils (0.0-0.2) 10^3/uL 0.03 RBC Morphology See Below Microcytosis 1+ ESR (0-20) mm/hr 25 H VBG Lactate (0.6-1.4) mmol/L 1.5 H Sodium (136-145) mmol/L 140 Potassium (3.5-5.1) mmol/L 3.6 Chloride (98-107) mmol/L 103 Carbon Dioxide (21.0-32.0) mmol/L 23.5 Anion Gap (3-11) mmol/L 13.5 H BUN (7-18) mg/dL 10 Creatinine (0.55-1.02) mg/dL 0.9 Est GFR (CKD-EPI 2020) (mL/min/1.73m2) 90.42 Glucose (74-106) mg/dL 189 H Calcium (8.5-10.1) mg/dL 8.7 Magnesium (1.8-2.4) mg/dL 2.0 Total Bilirubin (0.2-1.0) mg/dL 0.4 AST (15-37) U/L 11 L ALT (14-59) U/L 26 Alkaline Phosphatase (46-116) U/L 86 Creatine Kinase (26-192) U/L 58 C-Reactive Protein (<or=0.5) mg/dL 2.58 H Total Protein (6.4-8.2) g/dL 7.4 Albumin (3.4-5.0) g/dL 3.6 Lipase (16-77) U/L 26 Procalcitonin ng/mL < 0.1 Serum HCG, Qual Negative Urine Color (Yellow) Yellow Urine Clarity (Clear) Clear Urine pH (5-8) 7.0 Ur Specific [place] (1.005-1.025) 1.020 Urine Protein (Neg-Trace) mg/dL 30 H Urine Ketones (Negative) mg/dL Negative Urine Blood (Negative) Negative Urine Nitrite (Negative) Negative Urine Bilirubin (Negative) Negative Urine Urobilinogen (Up to 0.2) mg/dL 0.2 Ur Leukocyte Esterase (Negative) Negative Urine Glucose (Negative) mg/dL Negative Quality:SDOH Health Related Social Needs: Health related social needs inadequate housing PFSH All Active Problems (Updated 01/20/24 @ 22:54 by HARRISON Carmona) Dehydration (Acute) Nausea (Acute) Back pain (Acute) Breakthrough bleeding on depo provera (Acute) Encounter for Depo-Provera contraception (Acute) Since 2016. Nicotine dependence (Acute) Contraception, generic surveillance (Acute) Hx of OCPs, Nexplanon, DepoProvera. 02/2023 Norethindrone 0.35mg till 05/2023. Resumed DepoProvera. 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 Hypertrophy of tonsils and adenoids Suicidal ideation Bipolar 2 disorder RBC microcytosis Vitamin D deficiency Steatosis of liver Back pain Dysuria Abdominal pain History of allergic reaction Hemolytic uremic syndrome PTSD (post-traumatic stress disorder) Mesenteric lymphadenitis Drug abuse, episodic use SASHA (stress urinary incontinence, female) Pain, dental Blood in stool History of mastoiditis Jaw pain TMJ tenderness, left Otalgia, right ear BMI 40.0-44.9, adult Overactive bladder (02/09/18) Generalized headaches (12/31/16) Depression (12/31/16) Depo-Provera contraceptive status (09/13/17) Depo-Provera contraception since 08/11/2017. Patient is using the Depo-Provera for menstrual cycle control. ADHD (attention deficit hyperactivity disorder) (12/31/16) Surgical History History of colonoscopy (~06/2022) Hx of tooth extraction History of kidney surgery Social History Smoking/Tobacco Use Status: Former Tobacco Use Quit Date: 11/27/22 Smoking risk assessment performed?: Yes Alcohol Intake: former Drug use: Current Sobriety Substance use type: does not use Sexually active: Yes (female partner only now(May 2022). Has never had intercourse) Do you think of yourself as: lesbian/cash/homosexual What is your relationship status?: never Panel score (0-1 are the most socially isolated patients): 0 Do you feel safe at home: Yes Do you feel safe in your relationship?: Yes Female Reproductive History Menstrual control method: progesterone injection History History 0 Para Hx # Term Pregnancies Multiple births Hx # Pregnancies Ectopic pregnancies AB induced Hx Number of Living Children AB spontaneous
--- NOTE | 2024-01-20 20:30 | DI.CT_ITS ---
Exam(s) CT ABDOMEN PELVIS W EXAM: CT ABDOMEN PELVIS W CLINICAL HISTORY: ABD pain, urinary retention. TECHNIQUE: Imaging Protocol: Axial computed tomography images with coronal and sagittal reformatted images were created and reviewed CONTRAST MATERIAL: Intravenous: Omnipaque-350 100cc Oral: None COMPARISON: CT CT ABDOMEN PELVIS W from 04/12/[address] CHEST PE CTA from 07/11/2023 FINDINGS: VISUALIZED LUNG BASES: No nodules nor pleural effusions evident. ABDOMEN: There is no ascites. The amount of mesenteric lymphadenopathy is slightly decreased when compared to 04/12/2023. Spleen size is upper normal. LIVER: Mild hepatic steatosis again noted. No discrete focal hepatic lesions. No dilated intrahepat ic ducts. GALLBLADDER/BILIARY: No obvious gallbladder pathology. CBD is not dilated. PANCREAS: No evidence of pancreatic mass nor dilatation of the pancreatic duct. SPLEEN: Spleen size upper normal, unchanged. No splenic lesions. Splenic and portal veins are paten t. ADRENALS: There are no significant adrenal masses. KIDNEYS:No cysts evident. No solid renal masses. No calculi nor hydronephrosis.. ABDOMINAL AORTA: Abdominal aorta is not enlarged. LYMPH NODES:No true para-aortic adenopathy. ABDOMINAL WALL: No evidence of significant anterior abdominal wall nor inguinal hernia. GI: There is no evidence of bowel obstruction, free air, nor abscess. PELVIS: GI: No evidence of appendicitis.No evidence of sigmoid diverticulitis. LYMPH NODES: Enlarged lymph nodes in both inguinal regions again noted. REPRODUCTIVE: Uterus and ovaries appear age-appropriate. There is no free fluid. URINARY BLADDER: No calculi nor obvious masses evident OSSEOUS: No fractures and no significant osseous lesions. IMPRESSION: 1. No acute abnormality evident in the abdomen pelvis. 2. There is mild-moderate diffuse lymphadenopathy again noted as described above, slightly decreased size mesenteric lymph nodes when compared to April 2023. 3. No splenomegaly. No hepatomegaly. No ascites. RADIATION DOSE DELIVERED: Total DLP DATA REPOSITORY: All CT scans at this facility are submitted to the National Radiology Data Registry (NRDR) Dose Index Registry (DIR) with the [employer] (ACR). RADIATION OPTIMIZATION: All CT scans at this facility use at least one of these dose optimization te chniques: automated exposure control; mA and/or kV adjustment per patient size (includes targeted exa ms where dose is matched to clinical indication); or iterative reconstruction.
[2024-01-20 21:21] LABS: Abs Immature Grans 0.03 10^3/uL (0.0-0.06); Absolute Basophil Count 0.03 10^3/uL (0.0-0.2); Absolute Eosinophil Count 0.18 10^3/uL (0.0-0.7); Absolute Lymphocyte Count 1.68 10^3/uL (1.2-3.4); Absolute Monocyte Count 0.82 10^3/uL (0.1-0.8); Absolute Neutrophil Count 4.88 10^3/uL (1.2-6.7); Basophils % 0.4; Eosinophils % 2.4; HCT 38.3 % (36.0-46.0); Immature Grans % 0.4; Lactate 1.5 mmol/L (0.6-1.4); MCH 22.9 pg (27.0-33.0); MCHC 31.3 % (32.0-36.0); MCV 73 fL (80-95); MPV 11.8 fL (8.0-11.0); Monocytes % 10.8; Platelet Count 240 10^3/uL (130-400); RBC 5.25 10^6/uL (3.93-5.22); RDW 15.4 % (11.7-14.6); RDW-SD 40.5 fL; WBC 7.62 10^3/uL (4.4-10.8)
[2024-01-20 21:23] LABS: ESR 25 mm/hr (0-20)
[2024-01-20 21:30] LABS: Diff Comment RBC Morph Reviewed
[2024-01-20 21:31] LABS: Microcytosis 1+
[2024-01-20 21:44] LABS: ALT 26 U/L (14-59); AST 11 U/L (15-37); Albumin 3.6 g/dL (3.4-5.0); Alkaline Phosphatase 86 U/L (46-116); Anion Gap 13.5 mmol/L (3-11); BUN 10 mg/dL (7-18); Bilirubin, Total 0.4 mg/dL (0.2-1.0); C-Reactive Protein 2.58 mg/dL (<or=0.5); CO2 23.5 mmol/L (21.0-32.0); CREATININE 0.9 mg/dL (0.55-1.02); Calcium 8.7 mg/dL (8.5-10.1); Chloride 103 mmol/L (98-107); Creatine Kinase 58 U/L (26-192); Estimated GFR 90.42 (mL/min/1.73m2); Glucose 189 mg/dL (74-106); Lipase 26 U/L (16-77); Potassium 3.6 mmol/L (3.5-5.1); Sodium 140 mmol/L (136-145); Total Protein 7.4 g/dL (6.4-8.2)
[2024-01-20] MEDS: Normal Saline 1,000 ML 1000 ML IV (21:51)
[2024-01-20 21:53] LABS: HCG Qual (Serum) Negative
[2024-01-20] MEDS: Normal Saline - Diluent 50 ML VIAL IJ (22:02)
[2024-01-20 22:03] LABS: Procalcitonin < 0.1 ng/mL
[2024-01-20] MEDS: Omnipaque 350 MG/ML 100 ML BTL IJ (22:06)
[2024-01-20 22:28] LABS: Bilirubin Negative (Negative); Blood Negative (Negative); Clarity Clear (Clear); Glucose Negative (Negative); Ketones Negative (Negative); Leukocyte Esterase Negative (Negative); Nitrite Negative (Negative); Urobilinogen 0.2 mg/dL (Up to 0.2)
[2024-01-20 22:38] LABS: Bacteria Negative HPF (Negative); C & S Indicated? No; Crystals Negative HPF (Negative); Epithelial Cells Negative HPF (Negative); Mucus Negative (Negative); RBC 0-2 HPF (0-2); WBC 0-2 HPF (0-5)
--- NOTE | 2024-01-20 22:49 | DI.VRAD_ITS ---
PROCEDURE INFORMATION: Exam: CT Abdomen And Pelvis With Contrast Exam date and time: 01/20/2024 10:02 PM Age: 28 years old Clinical indication: Other: Abd pain, urinary retention TECHNIQUE: Imaging protocol: Computed tomography of the abdomen and pelvis with contrast. Contrast material: 350; Contrast volume: 100 ml; Contrast route: INTRAVENOUS (IV); COMPARISON: CT ABDOMEN PELVIS W 04/12/2023 2:22 AM FINDINGS: Liver: Normal. No mass. Gallbladder and bile ducts: Normal. No calcified stones. No ductal dilation. Pancreas: Normal. No ductal dilation. Spleen: Normal. No splenomegaly. Adrenal glands: Normal. No mass. Kidneys and ureters: Normal. No hydronephrosis. Stomach and bowel: Unremarkable. No obstruction. No mucosal thickening. Appendix: No evidence of appendicitis. Intraperitoneal space: Unremarkable. No free air. No significant fluid collection. Vasculature: Unremarkable. No abdominal aortic aneurysm. Lymph nodes: Mild diffuse mesenteric lymphadenopathy appears improved since the prior study. Stable mild diffuse retroperitoneal lymphadenopathy. Stable moderate bilateral inguinal lymphadenopathy. Urinary bladder: Unremarkable as visualized. Reproductive: Unremarkable as visualized. Bones/joints: Unremarkable. No acute fracture. Soft tissues: Unremarkable. IMPRESSION: No acute abnormality. [id number] diffuse lymphadenopathy, similar to previous although slightly decreased size of mesenteric nodes noted compared to previous Dictated and Authenticated by: Jn Demarco MD. Ordering:LIBERTY Cole MD
[2024-01-20 22:57] VITALS: BP 128/70; PULSE 115; RESP 16; TEMP 37; O2SAT 100
[2024-01-23 13:03] LABS: Chlamydia Result Negative (Negative); GC Result Negative (Negative)
== END 2024-01-20 22:57 | disposition home or self-care (01) ==
PROVIDERS: Emergency Provider Physician Assistant; PCP Nurse Practitioner Family
DX: E86.0 Dehydration (principal); I15.1 Hypertension secondary to other renal disorders; Z87.891 Personal history of nicotine dependence
CPT/HCPCS: 80053; 82550; 83690; 84145; 85652; 87040; 87491; 87591; 96361; 99285; 74177; 81003; 81015; 83605; 83735; 84703; 85025; 86140; 87480; 87510; 87660; 99284; J3490

== ENCOUNTER 2024-01-24 21:14 | Emergency (ER) | payer MEDICAID, SELFPAY ==
[2024-01-24 21:21] VITALS: BP 144/93; PULSE 97; RESP 18; TEMP 36.7; O2SAT 98
[2024-01-24 21:26] VITALS: RESP 18
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
== END 2024-01-24 21:44 | disposition home or self-care (01) ==
PROVIDERS: Emergency Provider Emergency Medicine; PCP Nurse Practitioner Family
DX: F41.9 Anxiety disorder, unspecified (principal); Z87.891 Personal history of nicotine dependence
CPT/HCPCS: 99283

== ENCOUNTER 2024-02-01 10:34 | Outpatient (REF) | payer MEDICAID, SELFPAY ==
--- NOTE | 2024-02-01 10:15 | PAPFT_PTH ---
PATIENT: Shannon Barajas LOC: [facility] U#:[id number] AGE/SX: 28/F ROOM: RE02/01/[address]: Genoveva May NP : 1995 BED: DIS: 02/01/2024 SPEC #: [id number] RECD: 02/01/24 15:38 STATUS: PRACHI REAdolfo #: [id number] KENROY: 02/01/24 10:[address]: Genoveva May NP DEPT: [facility] Cytology RECD BY: Lilian Dey ENTERED: 02/01/24 15:39 SP TYPE: PAPFT OTHR DR: Niyah Serna Tissues: 1 - CX/ENDOCX FOR PAP SMEARS Procedures: PAP THIN PREP/UVM Screening Comments: [id number]
== END 2024-02-01 10:35 | disposition home or self-care (01) ==
LOC: LBN 10:34
PROVIDERS: PCP Nurse Practitioner Family; Visit Provider Nurse Practitioner Women's Health
DX: Z12.4 Encounter for screening for malignant neoplasm of cervix (principal)
CPT/HCPCS: 88142

== ENCOUNTER 2024-02-02 15:04 | Outpatient (CLI) | payer MEDICAID, SELFPAY ==
[2024-02-02 13:48] LABS: Calculated LDL 76 mg/dL (<100); Cholesterol 139 mg/dL (<200); HDL Cholesterol 42 mg/dL (40-60); Triglyceride 108 mg/dL (<150)
== END 2024-02-02 15:05 | disposition home or self-care (01) ==
LOC: LBO 15:06
PROVIDERS: PCP Nurse Practitioner Family; Visit Provider Nurse Practitioner Family
DX: E11.9 Type 2 diabetes mellitus without complications (principal)
CPT/HCPCS: 36415; 80061

== ENCOUNTER 2024-02-24 14:56 | Emergency (ER) | payer MEDICAID, SELFPAY ==
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
[2024-02-24 15:03] VITALS: BP 143/97; PULSE 118; RESP 16; TEMP 36.8; O2SAT 98
--- NOTE | 2024-02-24 15:21 | DI.RAD_ITS ---
Exam(s) XR HAND RT COMPLETE EXAM: XR HAND RT COMPLETE CLINICAL HISTORY: R hand pain. TECHNIQUE: 2D digital imaging was performed. Three views. COMPARISON: CR,XR XR HAND RT COMPLETE from 02/16/2022 FINDINGS: BONES: No acute fracture is present. No bony destructive lesion is seen. JOINTS: No dislocation present. SOFT TISSUE: Normal. IMPRESSION: Unremarkable radiographs of the right hand. DATA REPOSITORY: RADIATION DOSE DELIVERED:
== END 2024-02-24 15:45 | disposition home or self-care (01) ==
PROVIDERS: Emergency Provider Physician Assistant; PCP Nurse Practitioner Family
DX: S60.221A Contusion of right hand, initial encounter; W23.0XXA Caught, crushed, jammed, or pinched between moving objects, initial encounter; M79.641 Pain in right hand
CPT/HCPCS: 99283; 73130

== ENCOUNTER 2024-02-29 14:03 | Emergency (ER) | payer MEDICAID, SELFPAY ==
[2024-02-29] VITALS (11 sets, daily range): BP systolic 137–175; BP diastolic 64–132; PULSE 91–115; RESP 18–22; TEMP 37.2; O2SAT 95–99
--- NOTE | 2024-02-29 14:18 | ED.GENADUL_ITS ---
Discharge Plan Disposition Patient Disposition: Home Condition: Stable Discharge Details Clinical Impression: Nausea Primary Care Provider: Niyah Serna ED Provider: Douglas Keith Home Meds and New Rx's Prescriptions: Continued melatonin 3 mg tablet 6 mg PO HS medroxyprogesterone 150 mg/mL syringe 150 mg IM [id number] Qty: 1 5RF meclizine 25 mg tablet 25 mg PO BID PRN (Reason: dizziness) Qty: 14 0RF labetalol 100 mg tablet 100 mg PO QAM Patient Comments: 1/2 Tab QAM Ozempic 0.25 mg or 0.5 mg (2 mg/3 mL) pen injector 0.25 mg subcut QWEEK Patient Comments: takes Qwednesdays Rx Instructions: for 4 weeks quetiapine 25 mg tablet 25 mg PO BID docusate sodium 100 mg capsule 100 mg PO DAILY pantoprazole 40 mg Tablet,Delayed Release (Dr/Ec) 40 mg PO QAM clonidine HCl 0.2 mg tablet 0.2 mg PO QHS metaxalone 800 mg tablet 800 mg PO TID PRNQty: 20 0RF diphenoxylate-atropine [Lomotil] 2.5-0.025 mg tablet 1 tab PO DAILY Qty: 10 0RF Hold Instructions: pt now constipated Discharge Instructions Instructions: Acute Nausea and Vomiting (ED) Additional Instructions: You were seen in the emergency department for your generalized malaise and nausea. There was no signs of significant dehydration on your labs, no signs of significant infection on your labs.. We provided you with IV fluids as well as an antiemetic called Zofran. I do not suspect any acute emergent process going on beyond maybe a viral stomach bug. Please return for emergent concerns like profound dehydration, fevers, shortness of breath Referrals: Niyah Serna [Primary Care Provider] - Discharge Data Discharge Date/Time-TO BE ENTERED AT DEPARTURE: 02/29/24 16:28 HPI General Date/Time Provider Initiated Documentation: 02/29/24 14:05 . HPI Narrative: 28 year-old female, well known to the ED, presents to ED today by POV/ambulating with a chief complaint of possible dehydration, viral syndrome, some constipation that resolved with laxative, nausea without vomiting, feels hot, and may need a Covid test with onset for the past 2 weeks. Quality described as generalized malaise, she has been seen in these past two weeks for other com plaints without mentioning any dehydration or malaise by myself on 02/23, no radiation to chest pain, shortness of breath, cough, vomiting, numbness/tingling, fainting. Severity is described as moderate. Palliating factors include nothing specific. Provoking factors include nothing specific. Patient not anticoagulated. Related Data Home Medications Medication Instructions Recorded Confirmed labetalol 100 mg tablet 100 mg PO QAM 09/25/21 02/29/24 melatonin 3 mg tablet 6 mg PO HS 09/25/21 02/29/24 pantoprazole 40 mg tablet,delayed 40 mg PO QAM 11/22/22 02/29/24 release clonidine HCl 0.2 mg tablet 0.2 mg PO QHS 02/15/23 02/29/24 docusate sodium 100 mg capsule 100 mg PO DAILY 03/24/23 02/29/24 quetiapine 25 mg tablet 25 mg PO BID 03/24/23 02/29/24 semaglutide 0.25 mg or 0.5 mg (2 0.25 mg subcut QWEEK 08/11/23 02/29/24 mg/3 mL) subcutaneous pen injector (Ozempic) diphenoxylate-atropine 2.5 1 tab PO DAILY #10 tabs 09/22/23 02/29/24 mg-0.025 mg tablet (Lomotil) medroxyprogesterone 150 mg/mL 150 mg IM [id number] #1 mL 11/14/23 02/29/24 intramuscular syringe metaxalone 800 mg tablet 800 mg PO TID PRN #20 tabs 12/22/23 02/29/24 meclizine 25 mg tablet 25 mg PO BID PRN dizziness #14 tabs 02/17/24 02/29/24 Previous Rx's Medication Instructions Recorded diphenoxylate-atropine 2.5 1 tab PO DAILY #10 tabs 09/22/23 mg-0.025 mg tablet (Lomotil) medroxyprogesterone 150 mg/mL 150 mg IM [id number] #1 mL 11/14/23 intramuscular syringe metaxalone 800 mg tablet 800 mg PO TID PRN #20 tabs 12/22/23 meclizine 25 mg tablet 25 mg PO BID PRN dizziness #14 tabs 02/17/24 Allergies Allergy/AdvReac Type Severity Reaction Status Date / Time fluticasone Allergy Severe unknown Verified 02/29/24 14:17 [From Flovent HFA] fluoxetine Allergy Intermediate Other (See Verified 02/29/24 14:17 Comment) ibuprofen Allergy Intermediate vomiting Verified 02/29/24 14:17 lisinopril Allergy Intermediate unknown Verified 02/29/24 14:17 naproxen [From Aleve] Allergy Intermediate vomiting Verified 02/29/24 14:17 paroxetine HCl [From Paxil] Allergy Intermediate Hives Verified 02/29/24 14:17 risperidone [From Risperdal] Allergy Intermediate Hives Verified 02/29/24 14:17 sertraline Allergy Intermediate Other (See Verified 02/29/24 14:17 Comment) NSAIDS (Non-Steroidal Allergy Due to Verified 02/29/24 14:17 Anti-Inflamma prior kidney damage acetaminophen AdvReac Nausea Unverified 02/29/24 14:17 amoxicillin AdvReac Nausea Verified 02/29/24 14:17 seafood Allergy Intermediate unknown Uncoded 02/29/24 14:17 enviornmental Allergy Mild sneezing Uncoded 02/29/24 14:17 dark sodas AdvReac Severe Other (See Uncoded 02/29/24 14:17 Comment) General Stated Complaint: GenMedical MARY KAY: 3 Review of Systems All systems reviewed & are unremarkable except as noted in HPI and below Exam Narrative Exam Narrative: GENERAL APPEARANCE: Well-nourished, non-toxic, awake and alert, atraumatic, no acute distress. SKIN: Warm, pink, dry, intact, without rashes/lesions/ulcerations, no skin tenting. HEAD: Normocephalic, atraumatic, normal hair distribution for gender/age. EYES: Normal conjunctiva, no exudates on lids/lashes. ENT: Nares patent, no circumoral cyanosis, no facial swelling, benign posterior oropharynx. NECK: Supple, trachea midline, painless cervical ROM. LUNGS/CHEST: Lungs CTA bilaterally- no rhonchi/rales/wheezes diffusely, non- labored respirations, normal A/P diameter, symmetrical expansion, no chest wall deformity HEART (CV/PV): Regular rate and rhythm without murmur, no peripheral edema, no JVD. ABDOMEN: Soft, non-distended, no guarding, no tenderness, no CVA tenderness to percussion bilaterally. MSK: Normal ROM, no swelling/deformity to bilateral UEs or LEs, moving all extremities without weakness, no cyanosis, spine midline without tenderness, normal curvature. NEURO: Mental Status AAOx4 - alert to person, place, time, events No facial droop, no forehead involvement. Motor: No focal weakness - strength 5/5 in bilateral UEs and LEs, proximal and distal, symmetric. Sensory: sensation intact to light touch globally. Gait normal: patient ambulated without ataxia into ED room. PSYCH: euthymic, cooperative, pleasant, appropriate speech Course Vital Signs Vital signs: Vital Signs Temperature 37.2 C 02/29/24 14:14 Pulse 115 H 02/29/24 14:14 Respiratory Rate 22 02/29/24 14:14 Blood Pressure 175/132 H 02/29/24 14:14 Pulse Oximetry 98 02/29/24 14:14 Temperature 37.2 C 02/29/24 14:14 Temperature Source Skin 02/29/24 14:14 Pulse 115 H 02/29/24 14:14 Respiratory Rate 22 02/29/24 14:14 Respiratory Effort Normal, Non-Labored 02/29/24 14:17 Blood Pressure 175/132 H 02/29/24 14:14 Blood Pressure Position Sitting 02/29/24 14:14 Pulse Oximetry 98 02/29/24 14:14 Oxygen Delivery Method Room Air 02/29/24 14:14 Oxygen Flow Rate 0 02/29/24 14:14 Pain Level 0 02/29/24 14:14 Medical Decision Making This dictation utilizes [id number] dictation software and may contain unedited grammatical errors. 28 y/o F, well known to ED, presents to ED today with a chief complaint of de hydration, feels hot, nausea without vomiting, wants Covid-19 test, [facility] Patient states has been going on for 2 weeks, but was here 02/23 with no mention of malaise. Patients' medical history: IBS, borderline personality disorder, cognitive delay. Family and social history: Noncontributory. Pertinent exam findings / vital signs include benign cardiopulmonary status, patient is always tachycardic, lungs are CTA, benign abdomen, no signs of overt dehydration with normal conjunctiva no skin tenting, benign posterior oropharynx. Differential / pathologies of concern include mild dehydration, viral syndrome, COVID-19, not respiratory distress, non-intractable nausea vomiting. Diagnostic studies of: -CBC, CMP, lactate, lipase, magnesium, CRP, urinalysis. -CBC shows mild leukocytosis, nonspecific, normal hemoglobin -CRP mildly elevated at 1 -Lactate is 1.0, do not suspect sepsis -CMP shows no elevation of BUN, normal creatinine unlikely significantly dehydrated, no hyponatremia -Lipase within normal limits -UA without infection, has trace proteins and ketones -Magnesium WNL -Covid/Flu/RSV PCR negative Interventions of: -1L NS, 4mg Zofran. ED Course/Assessment/Plan: 28-year-old female who is well-known to the department presents for 2 weeks of generalized malaise. She has been seen in this 2-week period without mention of this. Frequently presents to the ED for minor complaints without severe pathology. The fluids and 4 mg of IV Zofran for nausea, do not suspect patient signed out to Tram Zamora at shift change pending reassuring lab results with likely discharge. Findings not consistent with respiratory distress, profound dehydration, fever, URI, intractable nausea or vomiting. Disposition of Nausea. Patient verbalized understanding of the plan and return to ED criteria and engaged in shared decision making. Medical Records Medical records reviewed: Yes I reviewed the patient's medical records. Lab Data Lab results reviewed: Yes I reviewed the patient's lab results. Labs: Laboratory Tests Range/Units 02/29/24 02/29/24 14:29 14:45 WBC (4.4-10.8) 10^3/uL 11.27 H RBC (3.93-5.22) 10^6/uL 5.95 H Hgb (11.2-15.7) g/dL 13.1 Hct (36.0-46.0) % 42.0 MCV (80-95) fL 71 L MCH (27.0-33.0) pg 22.0 L MCHC (32.0-36.0) % 31.2 L RDW (11.7-14.6) % 15.4 H Plt Count (130-400) 10^3/uL 265 MPV (8.0-11.0) fL Immature Gran % 0.4 Neutrophils % 68.9 Lymphocytes % 21.7 Monocytes % 7.4 Eosinophils % 1.2 Basophils % 0.4 Nucleated RBC % (0.0-0.3) % 0.0 Absolute Neutrophils (1.2-6.7) 10^3/uL 7.77 H Absolute Lymphocytes (1.2-3.4) 10^3/uL 2.45 Absolute Monocytes (0.1-0.8) 10^3/uL 0.83 H Absolute Eosinophils (0.0-0.7) 10^3/uL 0.14 Absolute Basophils (0.0-0.2) 10^3/uL 0.05 RBC Morphology See Below Microcytosis 1+ VBG Lactate (0.6-1.4) mmol/L 1.0 Sodium (136-145) mmol/L 140 Potassium (3.5-5.1) mmol/L 3.8 Chloride (98-107) mmol/L 104 Carbon Dioxide (21.0-32.0) mmol/L 23.4 Anion Gap (3-11) mmol/L 12.6 H BUN (7-18) mg/dL 10 Creatinine (0.55-1.02) mg/dL 0.9 Est GFR (CKD-EPI 2020) (mL/min/1.73m2) 90.42 Glucose (74-106) mg/dL 128 H Calcium (8.5-10.1) mg/dL 9.3 Magnesium (1.8-2.4) mg/dL 2.0 Total Bilirubin (0.2-1.0) mg/dL 0.3 AST (15-37) U/L 14 L ALT (14-59) U/L 31 Alkaline Phosphatase (46-116) U/L 105 C-Reactive Protein (<or=0.5) mg/dL 1.00 H Total Protein (6.4-8.2) g/dL 8.1 Albumin (3.4-5.0) g/dL 4.0 Lipase (16-77) U/L 29 Urine Color (Yellow) Yellow Urine Clarity (Clear) Clear Urine pH (5-8) 6.0 Ur Specific Robertson (1.005-1.025) >= 1.030 H Urine Protein (Neg-Trace) mg/dL 30 H Urine Ketones (Negative) mg/dL Trace H Urine Blood (Negative) Negative Urine Nitrite (Negative) Negative Urine Bilirubin (Negative) Negative Urine Urobilinogen (Up to 0.2) mg/dL 0.2 Ur Leukocyte Esterase (Negative) Negative Urine RBC (0-2) HPF Negative Urine WBC (0-5) HPF 0-2 Ur Epithelial Cells (Negative) HPF Few Urine Crystals (Negative) HPF Negative Urine Bacteria (Negative) HPF Negative Urine Casts (Negative) LPF 0-2 Fine Granular Urine Mucus (Negative) Trace Ur Culture Indicated? No Urine Glucose (Negative) mg/dL Negative COVID-19 Source Nasopharynx SARS-CoV-2 (PCR) (Negative) Negative Influenza Type A (PCR) (Negative) Negative Influenza Type B (PCR) (Negative) Negative RSV (PCR) (Negative) Negative Quality:SDOH Health Related Social Needs: Health related social needs inadequate housing PFSH All Active Problems (Updated 02/29/24 @ 15:26 by HARRISON Carmona) Nausea (Acute) Contusion of right hand (Acute) Breakthrough bleeding on depo provera (Acute) Encounter for Depo-Provera contraception (Acute) Since 2017. Nicotine dependence (Acute) Contraception, generic surveillance (Acute) Hx of OCPs, Nexplanon, DepoProvera. 02/2023 Norethindrone 0.35mg till 05/2023. Resumed DepoProvera. 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 Hypertrophy of tonsils and adenoids Suicidal ideation Bipolar 2 disorder RBC microcytosis Vitamin D deficiency Steatosis of liver Back pain Dysuria Abdominal pain History of allergic reaction Hemolytic uremic syndrome PTSD (post-traumatic stress disorder) Mesenteric lymphadenitis Drug abuse, episodic use SASHA (stress urinary incontinence, female) Pain, dental Blood in stool History of mastoiditis Jaw pain TMJ tenderness, left Otalgia, right ear BMI 40.0-44.9, adult Overactive bladder (02/09/18) Generalized headaches (12/31/16) Depression (12/31/16) Depo-Provera contraceptive status (09/13/17) Depo-Provera contraception since 08/11/2017. Patient is using the Depo- Provera for menstrual cycle control. ADHD (attention deficit hyperactivity disorder) (12/31/16) Surgical History History of colonoscopy (~06/2022) Hx of tooth extraction History of kidney surgery Social History Smoking/Tobacco Use Status: Never Second Hand Exposure: No Smoking risk assessment performed?: Yes Alcohol Intake: former Drug use: Current Sobriety Substance use type: does not use Caregiver/Support person: Yes Housing: apartment Sexually active: Yes (female partner only now(May 2022). Has never had intercourse) Do you think of yourself as: lesbian/cash/homosexual What is your relationship status?: never Panel score (0-1 are the most socially isolated patients): 0 What type of physical activity do you participate in: none Seatbelt use: always Helmet use: Yes Do you feel safe at home: Yes Do you feel safe in your relationship?: Yes Female Reproductive History Menstrual control method: progesterone injection History History 0 Para Hx # Term Pregnancies Multiple births Hx # Pregnancies Ectopic pregnancies AB induced Hx Number of Living Children AB spontaneous
[2024-02-29 14:40] LABS: Bilirubin Negative (Negative); Blood Negative (Negative); Clarity Clear (Clear); Glucose Negative (Negative); Ketones Trace mg/dL (Negative); Leukocyte Esterase Negative (Negative); Nitrite Negative (Negative); Specific Gravity >= 1.030 (1.005-1.025); Urobilinogen 0.2 mg/dL (Up to 0.2)
[2024-02-29 14:56] LABS: Abs Immature Grans 0.05 10^3/uL (0.0-0.06); Absolute Basophil Count 0.05 10^3/uL (0.0-0.2); Absolute Lymphocyte Count 2.45 10^3/uL (1.2-3.4); Absolute Monocyte Count 0.83 10^3/uL (0.1-0.8); Basophils % 0.4; Eosinophils % 1.2; HGB 13.1 g/dL (11.2-15.7); Immature Grans % 0.4; Lymphocytes % 21.7; MCHC 31.2 % (32.0-36.0); MCV 71 fL (80-95); Monocytes % 7.4; Neutrophils % 68.9; RBC 5.95 10^6/uL (3.93-5.22); RDW 15.4 % (11.7-14.6); RDW-SD 38.6 fL; WBC 11.27 10^3/uL (4.4-10.8)
[2024-02-29] MEDS: Normal Saline 1,000 ML 1000 ML IV (14:59)
[2024-02-29] MEDS: Ondansetron 4 MG/2 ML VIAL IVP (15:00)
[2024-02-29 15:07] LABS: Absolute Eosinophil Count 0.14 10^3/uL (0.0-0.7); Absolute Neutrophil Count 7.77 10^3/uL (1.2-6.7)
[2024-02-29 15:08] LABS: Bacteria Negative HPF (Negative); Crystals Negative HPF (Negative); Epithelial Cells Few HPF (Negative); RBC Negative HPF (0-2); WBC 0-2 HPF (0-5)
[2024-02-29 15:09] LABS: C & S Indicated? No; Casts 0-2 Fine Granular LPF (Negative); Mucus Trace (Negative)
[2024-02-29 15:12] LABS: COVID-19 PCR Negative (Negative); Influenza A PCR Negative (Negative); Influenza B PCR Negative (Negative); RSV PCR Negative (Negative)
[2024-02-29 15:14] LABS: ALT 31 U/L (14-59); AST 14 U/L (15-37); Alkaline Phosphatase 105 U/L (46-116); Anion Gap 12.6 mmol/L (3-11); BUN 10 mg/dL (7-18); Bilirubin, Total 0.3 mg/dL (0.2-1.0); CO2 23.4 mmol/L (21.0-32.0); CREATININE 0.9 mg/dL (0.55-1.02); Calcium 9.3 mg/dL (8.5-10.1); Chloride 104 mmol/L (98-107); Estimated GFR 90.42 (mL/min/1.73m2); Glucose 128 mg/dL (74-106); Lipase 29 U/L (16-77); Potassium 3.8 mmol/L (3.5-5.1); Sodium 140 mmol/L (136-145); Total Protein 8.1 g/dL (6.4-8.2)
[2024-02-29 15:31] LABS: Diff Comment PLT Morph Reviewed; Platelet Count 265 10^3/uL (130-400)
[2024-02-29 15:32] LABS: Microcytosis 1+
[2024-02-29 15:57] LABS: Source Nasopharynx
[2024-02-29] MEDS: Ondansetron O.D.T. 4 MG TABEF, 3 TABS/BTL PO (16:27)
== END 2024-02-29 16:28 | disposition home or self-care (01) ==
PROVIDERS: Emergency Provider Physician Assistant; PCP Nurse Practitioner Family
DX: R11.0 Nausea (principal); R03.0 Elevated blood-pressure reading, without diagnosis of hypertension
CPT/HCPCS: 36415; 80053; 83690; 87637; 96361; 96374; 99284; 81003; 81015; 83605; 83735; 85025; 86140; 99283; J2405

== ENCOUNTER 2024-03-05 10:53 | Emergency (ER) | payer MEDICAID, SELFPAY ==
[2024-03-05 11:08] VITALS: BP 162/107; PULSE 113; RESP 15; TEMP 37.1; O2SAT 98
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
--- NOTE | 2024-03-05 18:19 | PDOC.CMPRO ---
Date of service: 03/05/24 Time of Service: 18:20 Care Management Progress Note Progress Note Text Progress Note Text: Shannon presented to the ED today after an incident with her [facility] shelter case manager. Per report, Shannon slowly eloped from a vehicle and ran [place] the [place]. Her parents would like her to go to inpatient psychiatric treatment. She is an IDDS client with community resources to support her. She was screened by BRIDGET Perez, as well as her [facility] shelter case manager, and together they created an active safety plan for her to return to the community and resume her supports. SDOH(Care Management) Screening Will the Patient Participate in the Screening?: Unable to obtain
== END 2024-03-05 14:18 | disposition home or self-care (01) ==
PROVIDERS: Emergency Provider Student in an Organized Health Care Education/Training Program; PCP Nurse Practitioner Family
DX: F41.9 Anxiety disorder, unspecified (principal); R45.89 Other symptoms and signs involving emotional state
CPT/HCPCS: 99283

== ENCOUNTER 2024-03-05 20:34 | Emergency (ER) | payer MEDICAID, SELFPAY ==
[2024-03-05 20:20] VITALS: BP 141/95; PULSE 108; RESP 18; TEMP 36.8; O2SAT 97
--- NOTE | 2024-03-05 20:26 | W.ED.GENAD ---
Discharge Plan Disposition Patient Disposition: Home Condition: Improving Discharge Details Chief Complaint: PsychEval Clinical Impression: Anxiety Primary Care Provider: Niyah Serna ED Provider: Zeb Mcguire Home Meds and New Rx's Prescriptions: No Action melatonin 3 mg tablet 6 mg PO HS medroxyprogesterone 150 mg/mL syringe 150 mg IM [id number] Qty: 1 5RF meclizine 25 mg tablet 25 mg PO BID PRN (Reason: dizziness) Qty: 14 0RF labetalol 100 mg tablet 100 mg PO QAM Patient Comments: 1/2 Tab QAM Ozempic 0.25 mg or 0.5 mg (2 mg/3 mL) pen injector 0.25 mg subcut QWEEK Patient Comments: takes Qwednesdays Rx Instructions: for 4 weeks quetiapine 25 mg tablet 25 mg PO BID docusate sodium 100 mg capsule 100 mg PO DAILY pantoprazole 40 mg Tablet,Delayed Release (Dr/Ec) 40 mg PO QAM clonidine HCl 0.2 mg tablet 0.2 mg PO QHS metaxalone 800 mg tablet 800 mg PO TID PRNQty: 20 0RF diphenoxylate-atropine [Lomotil] 2.5-0.025 mg tablet 1 tab PO DAILY Qty: 10 0RF Hold Instructions: pt now constipated Discharge Instructions Instructions: Anxiety (ED) Additional Instructions: Please follow-up with [facility] human services. HPI HPI Narrative: 28-year-old female history of bipolar, borderline personality, oppositional defiant disorder, presents with feeling overwhelmed as she had a negative interaction with [facility] human services staff at her home today. Patient does endorse self cutting has superficial abrasions to right forearm. No other injuries. No SI no HI. Related Data Home Medications Medication Instructions Recorded Confirmed labetalol 100 mg tablet 100 mg PO QAM 09/25/21 02/29/24 melatonin 3 mg tablet 6 mg PO HS 09/25/21 02/29/24 pantoprazole 40 mg tablet,delayed 40 mg PO QAM 11/22/22 02/29/24 release clonidine HCl 0.2 mg tablet 0.2 mg PO QHS 02/15/23 02/29/24 docusate sodium 100 mg capsule 100 mg PO DAILY 03/24/23 02/29/24 quetiapine 25 mg tablet 25 mg PO BID 03/24/23 02/29/24 semaglutide 0.25 mg or 0.5 mg (2 0.25 mg subcut QWEEK 08/11/23 02/29/24 mg/3 mL) subcutaneous pen injector (Ozempic) diphenoxylate-atropine 2.5 1 tab PO DAILY #10 tabs 09/22/23 02/29/24 mg-0.025 mg tablet (Lomotil) medroxyprogesterone 150 mg/mL 150 mg IM [id number] #1 mL 11/14/23 02/29/24 intramuscular syringe metaxalone 800 mg tablet 800 mg PO TID PRN #20 tabs 12/22/23 02/29/24 meclizine 25 mg tablet 25 mg PO BID PRN dizziness #14 tabs 02/17/24 02/29/24 Previous Rx's Medication Instructions Recorded diphenoxylate-atropine 2.5 1 tab PO DAILY #10 tabs 09/22/23 mg-0.025 mg tablet (Lomotil) medroxyprogesterone 150 mg/mL 150 mg IM [id number] #1 mL 11/14/23 intramuscular syringe metaxalone 800 mg tablet 800 mg PO TID PRN #20 tabs 12/22/23 meclizine 25 mg tablet 25 mg PO BID PRN dizziness #14 tabs 02/17/24 Allergies Allergy/AdvReac Type Severity Reaction Status Date / Time fluticasone Allergy Severe unknown Verified 02/29/24 14:17 [From Flovent HFA] fluoxetine Allergy Intermediate Other (See Verified 02/29/24 14:17 Comment) ibuprofen Allergy Intermediate vomiting Verified 02/29/24 14:17 lisinopril Allergy Intermediate unknown Verified 02/29/24 14:17 naproxen [From Aleve] Allergy Intermediate vomiting Verified 02/29/24 14:17 paroxetine HCl [From Paxil] Allergy Intermediate Hives Verified 02/29/24 14:17 risperidone [From Risperdal] Allergy Intermediate Hives Verified 02/29/24 14:17 sertraline Allergy Intermediate Other (See Verified 02/29/24 14:17 Comment) NSAIDS (Non-Steroidal Allergy Due to Verified 02/29/24 14:17 Anti-Inflamma prior kidney damage acetaminophen AdvReac Nausea Unverified 02/29/24 14:17 amoxicillin AdvReac Nausea Verified 02/29/24 14:17 seafood Allergy Intermediate unknown Uncoded 02/29/24 14:17 enviornmental Allergy Mild sneezing Uncoded 02/29/24 14:17 dark sodas AdvReac Severe Other (See Uncoded 02/29/24 14:17 Comment) General Stated Complaint: PsychEval MARY KAY: 3 Review of Systems Narrative: Review of Systems Constitutional: negative Eyes: negative ENT: negative Cardiovascular: negative Respiratory: negative Gastrointestinal: negative : negative Musculoskeletal: negative Skin: negative Neurologic: negative Psych: Stress Exam Narrative Exam Narrative: Physical Examination General: alert, awake, cooperative, resting comfortably, no acute distress HEENT: normocephalic, atraumatic; PERRL, EOM intact, conjunctiva normal; no nasal discharge; moist mucous membranes, oral and pharyngeal mucosa normal, tolerating secretions Neck: supple, trachea midline; full ROM Chest: normal to inspection Respiratory: normal respiratory effort, speaking in full sentences Skin: no lesions, rashes or trauma appreciated Neuro: AAOx3, normal speech, moving all extremities Extremities: Superficial abrasion to right forearm appears subacute hemostatic no foreign bodies Psych: Appropriate mood and affect, calm cooperative, no SI no HI Course Vital Signs Vital signs: Vital Signs Temperature 36.8 C 03/05/24 20:20 Pulse 108 H 03/05/24 20:20 Respiratory Rate 18 03/05/24 20:20 Blood Pressure 141/95 H 03/05/24 20:20 Pulse Oximetry 97 03/05/24 20:20 Temperature 36.8 C 03/05/24 20:20 Temperature Source Temporal Artery Scan 03/05/24 20:20 Pulse 108 H 03/05/24 20:20 Respiratory Rate 18 03/05/24 20:20 Blood Pressure 141/95 H 03/05/24 20:20 Blood Pressure Position Sitting 03/05/24 20:20 Pulse Oximetry 97 03/05/24 20:20 Oxygen Delivery Method Room Air 03/05/24 20:20 Oxygen Flow Rate 0 03/05/24 20:20 Medical Decision Making 28-year-old female history of bipolar, borderline personality, oppositional defiant disorder, presents with feeling overwhelmed as she had a negative interaction with [facility] human services staff at her home today. Patient does endorse self cutting has superficial abrasions to right forearm. No other injuries. No SI no HI. Superficial abrasions to right forearm appears subacute hemostatic no foreign bodies. Patient neurologically intact no signs of intoxication or infection. Given no SI no HI no delusions no paranoia no hallucinations patient is safe for discharge home. Have requested [facility] human services to provide resources to patient and continue their ongoing evaluation of her. Quality:SDOH Health Related Social Needs: Health related social needs inadequate housing PFSH All Active Problems (Updated 03/05/24 @ 20:30 by Zeb Mcguire MD) Anxiety (Chronic) Emotional upset (Acute) Nausea (Acute) Contusion of right hand (Acute) Breakthrough bleeding on depo provera (Acute) Encounter for Depo-Provera contraception (Acute) Since 2016. Nicotine dependence (Acute) Contraception, generic surveillance (Acute) Hx of OCPs, Nexplanon, DepoProvera. 02/2023 Norethindrone 0.35mg till 05/2023. Resumed DepoProvera. 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 Hypertrophy of tonsils and adenoids Suicidal ideation Bipolar 2 disorder RBC microcytosis Vitamin D deficiency Steatosis of liver Back pain Dysuria Abdominal pain History of allergic reaction Hemolytic uremic syndrome PTSD (post-traumatic stress disorder) Mesenteric lymphadenitis Drug abuse, episodic use SASHA (stress urinary incontinence, female) Pain, dental Blood in stool History of mastoiditis Jaw pain TMJ tenderness, left Otalgia, right ear BMI 40.0-44.9, adult Overactive bladder (02/09/18) Generalized headaches (12/31/16) Depression (12/31/16) Depo-Provera contraceptive status (09/13/17) Depo-Provera contraception since 08/11/2017. Patient is using the Depo-Provera for menstrual cycle control. ADHD (attention deficit hyperactivity disorder) (12/31/16) Surgical History History of colonoscopy (~06/2022) Hx of tooth extraction History of kidney surgery Social History Smoking/Tobacco Use Status: Never Second Hand Exposure: No Smoking risk assessment performed?: Yes Alcohol Intake: former Drug use: Current Sobriety Substance use type: does not use Caregiver/Support person: Yes Housing: apartment Sexually active: Yes (female partner only now(May 2022). 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
== END 2024-03-05 20:58 | disposition home or self-care (01) ==
LOC: ER 20:46
PROVIDERS: Emergency Provider Emergency Medicine; PCP Nurse Practitioner Family
DX: F41.9 Anxiety disorder, unspecified (principal); Z91.52 Personal history of nonsuicidal self-harm
CPT/HCPCS: 99283

== ENCOUNTER 2024-03-10 05:31 | Emergency (ER) | payer MEDICAID, SELFPAY ==
[2024-03-10 05:36] VITALS: BP 125/42; PULSE 92; RESP 18; TEMP 37.1; O2SAT 98
--- NOTE | 2024-03-10 05:44 | ED.GENADUL_ITS ---
Discharge Plan Disposition Patient Disposition: Home Condition: Good Discharge Details Clinical Impression: Otitis media Primary Care Provider: Niyah Serna ED Provider: Eliane Rollins Home Meds and New Rx's Prescriptions: New cefdinir 300 mg capsule 600 mg PO DAILY Qty: 10 0RF Continued melatonin 3 mg tablet 6 mg PO HS medroxyprogesterone 150 mg/mL syringe 150 mg IM [id number] Qty: 1 5RF meclizine 25 mg tablet 25 mg PO BID PRN (Reason: dizziness) Qty: 14 0RF labetalol 100 mg tablet 100 mg PO QAM Patient Comments: 1/2 Tab QAM Ozempic 0.25 mg or 0.5 mg (2 mg/3 mL) pen injector 0.25 mg subcut QWEEK Patient Comments: takes Qwednesdays Rx Instructions: for 4 weeks quetiapine 25 mg tablet 25 mg PO BID docusate sodium 100 mg capsule 100 mg PO DAILY pantoprazole 40 mg Tablet,Delayed Release (Dr/Ec) 40 mg PO QAM clonidine HCl 0.2 mg tablet 0.2 mg PO QHS metaxalone 800 mg tablet 800 mg PO TID PRNQty: 20 0RF diphenoxylate-atropine [Lomotil] 2.5-0.025 mg tablet 1 tab PO DAILY Qty: 10 0RF Hold Instructions: pt now constipated Discharge Instructions Instructions: Ear Infection (ED) Additional Instructions: Antibiotic once a day until it is all gone. Call your primary care doctor on Tuesday to schedule an appointment early in the week to followup on your visit here. Return to the emergency department for new or worsening symptoms. Referrals: Niyah Serna [Primary Care Provider] - [facility] General Mode of arrival: ambulatory . Date/Time Provider Initiated Documentation: 03/10/24 05:35 . Limitations to Documentation: no limitations . Information obtained by: patient . HPI Narrative: 28yo F presenting with left ear pain. One week of pain in left ear, saw a doctor and was advised to take decongestants. This initially helped symptoms however yesterday pain became more severe. This morning woke with difficultly hearing out of left ear. No discharge from ear. Systemically well with no fevers, nausea, vomiting, cough, rhinnorhea, sore throat, or difficultly br eathing. Related Data Home Medications Medication Instructions Recorded Confirmed labetalol 100 mg tablet 100 mg PO QAM 09/25/21 03/10/24 melatonin 3 mg tablet 6 mg PO HS 09/25/21 03/10/24 pantoprazole 40 mg tablet,delayed 40 mg PO QAM 11/22/22 03/10/24 release clonidine HCl 0.2 mg tablet 0.2 mg PO QHS 02/15/23 03/10/24 docusate sodium 100 mg capsule 100 mg PO DAILY 03/24/23 03/10/24 quetiapine 25 mg tablet 25 mg PO BID 03/24/23 03/10/24 semaglutide 0.25 mg or 0.5 mg (2 0.25 mg subcut QWEEK 08/11/23 03/10/24 mg/3 mL) subcutaneous pen injector (Ozempic) diphenoxylate-atropine 2.5 1 tab PO DAILY #10 tabs 09/22/23 03/10/24 mg-0.025 mg tablet (Lomotil) medroxyprogesterone 150 mg/mL 150 mg IM [id number] #1 mL 11/14/23 03/10/24 intramuscular syringe metaxalone 800 mg tablet 800 mg PO TID PRN #20 tabs 12/22/23 03/10/24 meclizine 25 mg tablet 25 mg PO BID PRN dizziness #14 tabs 02/17/24 03/10/24 cefdinir 300 mg capsule 600 mg (2 x 300 mg) PO DAILY #10 03/10/24 caps Previous Rx's Medication Instructions Recorded diphenoxylate-atropine 2.5 1 tab PO DAILY #10 tabs 09/22/23 mg-0.025 mg tablet (Lomotil) medroxyprogesterone 150 mg/mL 150 mg IM [id number] #1 mL 11/14/23 intramuscular syringe metaxalone 800 mg tablet 800 mg PO TID PRN #20 tabs 12/22/23 meclizine 25 mg tablet 25 mg PO BID PRN dizziness #14 tabs 02/17/24 cefdinir 300 mg capsule 600 mg (2 x 300 mg) PO DAILY #10 03/10/24 caps Allergies Allergy/AdvReac Type Severity Reaction Status Date / Time fluticasone Allergy Severe unknown Verified 03/10/24 05:44 [From Flovent HFA] fluoxetine Allergy Intermediate Other (See Verified 03/10/24 05:44 Comment) ibuprofen Allergy Intermediate vomiting Verified 03/10/24 05:44 lisinopril Allergy Intermediate unknown Verified 03/10/24 05:44 naproxen [From Aleve] Allergy Intermediate vomiting Verified 03/10/24 05:44 paroxetine HCl [From Paxil] Allergy Intermediate Hives Verified 03/10/24 05:44 risperidone [From Risperdal] Allergy Intermediate Hives Verified 03/10/24 05:44 sertraline Allergy Intermediate Other (See Verified 03/10/24 05:44 Comment) NSAIDS (Non-Steroidal Allergy Due to Verified 03/10/24 05:44 Anti-Inflamma prior kidney damage acetaminophen AdvReac Nausea Unverified 03/10/24 05:44 amoxicillin AdvReac Nausea Verified 03/10/24 05:44 seafood Allergy Intermediate unknown Uncoded 03/10/24 05:44 enviornmental Allergy Mild sneezing Uncoded 03/10/24 05:44 dark sodas AdvReac Severe Other (See Uncoded 03/10/24 05:44 Comment) General Stated Complaint: EarProblem MARY KAY: 4 Review of Systems Narrative: see HPI Exam Narrative Exam Narrative: General: Alert, well appearing, well nourished, in no acute distress. Head: Normocephalic, atraumatic Neck: Trachea midline, ?Neck supple. ENT: ?MMM.? No oropharygeal lesions or exudate. Uvula midline. Right TM clear. Left TM erythematous and bulging. Mastoid nontender. Cardiac: No cyanosis. Well perfused. Resp: No respiratory distress. Speaking in full sentences. . Abd: ?Non-distended Extremities: ?No deformities.? No peripheral edema. Neurologic: GCS 15. ? Moves all extremities freely against gravity Course Vital Signs Vital signs: Vital Signs Temperature 37.1 C 03/10/24 05:36 Pulse 92 H 03/10/24 05:36 Respiratory Rate 18 03/10/24 05:36 Blood Pressure 125/42 L 03/10/24 05:36 Pulse Oximetry 98 03/10/24 05:36 Temperature 37.1 C 03/10/24 05:36 Temperature Source Temporal Artery Scan 03/10/24 05:36 Pulse 92 H 05/04/24 05:36 Respiratory Rate 18 03/10/24 05:36 Respiratory Effort Normal 03/10/24 05:41 Blood Pressure 125/42 L 03/10/24 05:36 Pulse Oximetry 98 03/10/24 05:36 Oxygen Delivery Method Room Air 03/10/24 05:36 Oxygen Flow Rate 0 03/10/24 05:36 Pain Level 10 03/10/24 05:36 Medical Decision Making 28yo F presenting with left ear pain. One week of pain in left ear, saw a doctor and was advised to take decongestants. This initially helped symptoms however yesterday pain became more severe. No systemic symptoms. Vital signs reassuring on arrival. Not septic, not concerned for meningitis, no mastoid tenderness to suggest mastoiditis; would not get labs or CT imaging. Left TM erythematous and bulging. Given this, and worsening symptoms, will treat with abx. Allergic to amoxillin (GI upset, no anaphylaxis); prescribed cefdinir. Given tylenol and ibuprofen for pain. Discharged home; discharge instructions and return precautions were reviewed with patient who verbalized understanding. All questions were answered and she is in full agreement with the plan. Quality:SDOH Health Related Social Needs: Health related social needs inadequate housing PFSH All Active Problems (Updated 03/10/24 @ 05:58 by Eliane Rollins MD) Otitis media (Acute) Anxiety (Chronic) Emotional upset (Acute) Nausea (Acute) Contusion of right hand (Acute) Breakthrough bleeding on depo provera (Acute) Encounter for Depo-Provera contraception (Acute) Since 2016. Nicotine dependence (Acute) Contraception, generic surveillance (Acute) Hx of OCPs, Nexplanon, DepoProvera. 02/2023 Norethindrone 0.35mg till 05/2023. Resumed DepoProvera. 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 Hypertrophy of tonsils and adenoids Suicidal ideation Bipolar 2 disorder RBC microcytosis Vitamin D deficiency Steatosis of liver Back pain Dysuria Abdominal pain History of allergic reaction Hemolytic uremic syndrome PTSD (post-traumatic stress disorder) Mesenteric lymphadenitis Drug abuse, episodic use SASHA (stress urinary incontinence, female) Pain, dental Blood in stool History of mastoiditis Jaw pain TMJ tenderness, left Otalgia, right ear BMI 40.0-44.9, adult Overactive bladder (02/09/18) Generalized headaches (12/31/16) Depression (12/31/16) Depo-Provera contraceptive status (09/13/17) Depo-Provera contraception since 08/11/2017. Patient is using the Depo- Provera for menstrual cycle control. ADHD (attention deficit hyperactivity disorder) (12/31/16) Surgical History History of colonoscopy (~06/2022) Hx of tooth extraction History of kidney surgery Social History Smoking/Tobacco Use Status: Never Second Hand Exposure: No Smoking risk assessment performed?: Yes Alcohol Intake: former Drug use: Current Sobriety Substance use type: does not use Caregiver/Support person: Yes Housing: apartment Sexually active: Yes (female partner only now(May 2022). 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
[2024-03-10] MEDS: Acetaminophen 500 MG TAB PO (05:57)
[2024-03-10] MEDS: Ibuprofen 400 MG TAB PO (05:57)
[2024-03-10] MEDS: Cefdinir 300 MG CAP 600 MG PO (06:01)
== END 2024-03-10 06:08 | disposition home or self-care (01) ==
LOC: ER 06:01
PROVIDERS: Emergency Provider Student in an Organized Health Care Education/Training Program; PCP Nurse Practitioner Family
DX: H66.92 Otitis media, unspecified, left ear (principal); H92.02 Otalgia, left ear
CPT/HCPCS: 99283

== ENCOUNTER 2024-03-15 07:25 | Emergency (ER) | payer MEDICAID, SELFPAY ==
--- NOTE | 2024-03-15 10:00 | RT.EKG_ITS ---
APPROVED REPORT Exam: Resting ECG Reason for Exam: Chest Pain Patient Location: E HR:95 bpm ECG Measurements Heart Rate 95 AXIS CO 131 P 35 QRSd 89 QRS 24 QT 349 T 16 QTc 440 Conclusion Gender not entered, assumed to be male for purpose of ECG interpretation Sinus rhythm...normal P axis, V-rate 60- 99
--- NOTE | 2024-03-15 10:25 | DI.RAD_ITS ---
Exam(s) XR CHEST 2V PA LATERAL EXAM: XR CHEST 2V PA LATERAL CLINICAL HISTORY: CHEST PAIN TECHNIQUE: 2D digital imaging was performed. Two views. COMPARISON: CT CT CHEST PE CTA from 07/11/2023 FINDINGS: HEART: Normal size. Aorta: Not dilated. PULMONARY VASCULATURE: Normal. LUNGS: Clear. PLEURAL SPACE: No pleural effusion or pneumothorax. BONE:Unremarkable for age. Soft tissues: Unremarkable. IMPRESSION: No acute abnormality. DATA REPOSITORY: RADIATION DOSE DELIVERED:
[2024-03-15 13:21] LABS: Anion Gap 11.6 mmol/L (3-11); BUN 11 mg/dL (7-18); CO2 23.4 mmol/L (21.0-32.0); CREATININE 0.8 mg/dL (0.55-1.02); Calcium 8.8 mg/dL (8.5-10.1); Chloride 104 mmol/L (98-107); Estimated GFR 104.15 (mL/min/1.73m2); Glucose 202 mg/dL (74-106); Magnesium 1.9 mg/dL (1.8-2.4); Potassium 3.9 mmol/L (3.5-5.1); Sodium 139 mmol/L (136-145); Troponin I < 50 ng/L (< or =60)
[2024-03-15 13:24] LABS: HCT 38.2 % (36.0-46.0); HGB 12.1 g/dL (11.2-15.7); MCH 22.4 pg (27.0-33.0); MCHC 31.7 % (32.0-36.0); MCV 71 fL (80-95); Platelet Count 252 10^3/uL (130-400); RDW 15.7 % (11.7-14.6); RDW-SD 39.7 fL; WBC 9.24 10^3/uL (4.4-10.8)
[2024-03-15 13:25] LABS: Absolute Basophil Count 0.04 10^3/uL (0.0-0.2); Absolute Eosinophil Count 0.17 10^3/uL (0.0-0.7); Absolute Lymphocyte Count 1.53 10^3/uL (1.2-3.4); Absolute Neutrophil Count 6.87 10^3/uL (1.2-6.7); Basophils % 0.4 %; Eosinophils % 1.8 %; Immature Grans % 0.3 %; Lymphocytes % 16.6 %; Monocytes % 6.5 %; Neutrophils % 74.4 %
[2024-03-15 13:26] LABS: Abs Immature Grans 0.03 10^3/uL (0.0-0.06); Diff Comment PLT Morph Reviewed
[2024-03-15 13:27] LABS: Microcytosis 2+
== END 2024-03-15 10:34 ==
PROVIDERS: Emergency Provider Emergency Medicine; PCP Nurse Practitioner Family
DX: R07.9 Chest pain, unspecified (principal); F17.200 Nicotine dependence, unspecified, uncomplicated
CPT/HCPCS: 80048; 93005; 99283; 71046; 83735; 84484; 85025; 93010

== ENCOUNTER 2024-03-16 13:41 | Outpatient (REF) | payer MEDICAID, SELFPAY | END 2024-03-16 13:42 | disposition home or self-care (01) | LOC: NCHCN 13:41 | PROVIDERS: PCP Nurse Practitioner Family; Visit Provider Nurse Practitioner Family | DX: N89.8 Other specified noninflammatory disorders of vagina (principal); R30.0 Dysuria; R82.89 Other abnormal findings on cytological and histological examination of urine | CPT/HCPCS: 87086; 87480; 87510; 87660 ==

== ENCOUNTER 2024-03-20 17:40 | Emergency (ER) | payer MEDICAID, SELFPAY ==
[2024-03-20] VITALS (14 sets, daily range): BP systolic 127–150; BP diastolic 77–89; PULSE 97–113; RESP 18; TEMP 37.3; O2SAT 97–100
--- NOTE | 2024-03-20 17:45 | RT.EKG_ITS ---
APPROVED REPORT Exam: Resting ECG Reason for Exam: question syncope Patient Location: E HR:93 bpm ECG Measurements Heart Rate 93 AXIS RI 135 P 34 QRSd 88 QRS 36 QT 340 T 9 QTc 424 Conclusion Sinus rhythm...normal P axis, V-rate 60- [address] segment or T wave abnormalities to suggest occlusive MA
--- NOTE | 2024-03-20 17:51 | W.ED.GENAD ---
Discharge Plan Disposition Patient Disposition: Against Medical Advice Condition: Stable Discharge Details Clinical Impression: Blood per rectum Primary Care Provider: Niyah Serna ED Provider: Douglas Keith Home Meds and New Rx's Prescriptions: No Action melatonin 3 mg tablet 6 mg PO HS medroxyprogesterone 150 mg/mL syringe 150 mg IM [id number] Qty: 1 5RF meclizine 25 mg tablet 25 mg PO BID PRN (Reason: dizziness) Qty: 14 0RF labetalol 100 mg tablet 100 mg PO QAM Patient Comments: 1/2 Tab QAM Ozempic 0.25 mg or 0.5 mg (2 mg/3 mL) pen injector 0.25 mg subcut QWEEK Patient Comments: takes Qwednesdays Rx Instructions: for 4 weeks quetiapine 25 mg tablet 25 mg PO BID docusate sodium 100 mg capsule 100 mg PO DAILY pantoprazole 40 mg Tablet,Delayed Release (Dr/Ec) 40 mg PO QAM clonidine HCl 0.2 mg tablet 0.2 mg PO QHS metaxalone 800 mg tablet 800 mg PO TID PRNQty: 20 0RF diphenoxylate-atropine [Lomotil] 2.5-0.025 mg tablet 1 tab PO DAILY Qty: 10 0RF Hold Instructions: pt now constipated HPI General Date/Time Provider Initiated Documentation: 03/20/24 17:45. HPI Narrative: 28 year-old female presents to ED today by POV/ambulating with a chief complaint of bright red blood in toilet with bowel movements x2 today, has known hemorrhoids- states she passed out from the blood, tried a warm bath- states having L sided abdominal cramping with onset today. Quality described as a lot of pain, no radiation to fever, nausea/vomiting, chest pain, palpitations, dysuria, flank pain. Severity is described as unable to quantify. Palliating factors include nothing specific. Provoking factors include nothing specific. Events leading up to the incident/Associated Symptoms: Patient states she has hemorrhoid medication on the way, just dealing with insurance [employer]. Patient not anticoagulated. Related Data Home Medications Medication Instructions Recorded Confirmed labetalol 100 mg tablet 100 mg PO QAM 09/25/21 03/20/24 melatonin 3 mg tablet 6 mg PO HS 09/25/21 03/20/24 pantoprazole 40 mg tablet,delayed 40 mg PO QAM 11/22/22 03/20/24 release clonidine HCl 0.2 mg tablet 0.2 mg PO QHS 02/15/23 03/20/24 docusate sodium 100 mg capsule 100 mg PO DAILY 03/24/23 03/20/24 quetiapine 25 mg tablet 25 mg PO BID 03/24/23 03/20/24 semaglutide 0.25 mg or 0.5 mg (2 0.25 mg subcut QWEEK 08/11/23 03/20/24 mg/3 mL) subcutaneous pen injector (Ozempic) diphenoxylate-atropine 2.5 1 tab PO DAILY #10 tabs 09/22/23 03/20/24 mg-0.025 mg tablet (Lomotil) medroxyprogesterone 150 mg/mL 150 mg IM [id number] #1 mL 11/14/23 03/20/24 intramuscular syringe metaxalone 800 mg tablet 800 mg PO TID PRN #20 tabs 12/22/23 03/20/24 meclizine 25 mg tablet 25 mg PO BID PRN dizziness #14 tabs 02/17/24 03/20/24 Previous Rx's Medication Instructions Recorded diphenoxylate-atropine 2.5 1 tab PO DAILY #10 tabs 09/22/23 mg-0.025 mg tablet (Lomotil) medroxyprogesterone 150 mg/mL 150 mg IM [id number] #1 mL 11/14/23 intramuscular syringe metaxalone 800 mg tablet 800 mg PO TID PRN #20 tabs 12/22/23 meclizine 25 mg tablet 25 mg PO BID PRN dizziness #14 tabs 02/17/24 Allergies Allergy/AdvReac Type Severity Reaction Status Date / Time fluticasone Allergy Severe unknown Verified 03/20/24 17:44 [From Flovent HFA] fluoxetine Allergy Intermediate Other (See Verified 03/20/24 17:44 Comment) ibuprofen Allergy Intermediate vomiting Verified 03/20/24 17:44 lisinopril Allergy Intermediate unknown Verified 03/20/24 17:44 naproxen [From Aleve] Allergy Intermediate vomiting Verified 03/20/24 17:44 paroxetine HCl [From Paxil] Allergy Intermediate Hives Verified 03/20/24 17:44 risperidone [From Risperdal] Allergy Intermediate Hives Verified 03/20/24 17:44 sertraline Allergy Intermediate Other (See Verified 03/20/24 17:44 Comment) NSAIDS (Non-Steroidal Allergy Due to Verified 03/20/24 17:44 Anti-Inflamma prior kidney damage acetaminophen AdvReac Nausea Unverified 03/20/24 17:44 amoxicillin AdvReac Nausea Verified 03/20/24 17:44 seafood Allergy Intermediate unknown Uncoded 03/20/24 17:44 enviornmental Allergy Mild sneezing Uncoded 03/20/24 17:44 dark sodas AdvReac Severe Other (See Uncoded 03/20/24 17:44 Comment) General Stated Complaint: GI Bleed MARY KAY: 3 Review of Systems All systems reviewed & are unremarkable except as noted in HPI and below Exam Narrative Exam Narrative: GENERAL APPEARANCE: Well-nourished, non-toxic, awake and alert, atraumatic, no acute distress. SKIN: Warm, pink, dry, intact, without rashes/lesions/ulcerations. HEAD: Normocephalic, atraumatic, normal hair distribution for gender/age. EYES: Pupils PERRLA, EOMs intact without nystagmus, normal conjunctiva, no exudates on lids/lashes. ENT: Nares patent, no circumoral cyanosis, no facial swelling NECK: Supple, trachea midline, painless cervical ROM. LUNGS/CHEST: Lungs CTA bilaterally- no rhonchi/rales/wheezes, non-labored respirations, normal A/P diameter, symmetrical expansion, no chest wall deformity HEART (CV/PV): Regular rate and rhythm without murmur, no peripheral edema, no JVD. ABDOMEN: Soft, non-distended, no guarding, LLQ tenderness, no Rovsing's, no Mortensen's sign Rectal: performed by female provider Dr. Rollins at patient request MSK: Normal ROM, no swelling/deformity to bilateral UEs or LEs, moving all extremities without weakness, no cyanosis, spine midline without tenderness, normal curvature. NEURO: Mental Status AAOx4 - alert to person, place, time, events No facial droop, no forehead involvement. Motor: No focal weakness - strength 5/5 in bilateral UEs and LEs, proximal and distal, symmetric. Sensory: sensation intact to light touch globally. Gait normal: patient ambulated without ataxia into ED room. PSYCH: euthymic, cooperative, pleasant, appropriate speech Course Vital Signs Vital signs: Vital Signs Temperature 37.3 C 03/20/24 17:40 Pulse 113 H 03/20/24 17:40 Respiratory Rate 18 03/20/24 17:40 Blood Pressure 135/85 03/20/24 17:40 Pulse Oximetry 97 03/20/24 17:40 Temperature 37.3 C 03/20/24 17:40 Temperature Source Skin 03/20/24 17:40 Pulse 113 H 03/20/24 17:40 Respiratory Rate 18 03/20/24 17:40 Respiratory Effort Normal, Non-Labored 03/20/24 17:44 Blood Pressure 135/85 03/20/24 17:40 Blood Pressure Position Sitting 03/20/24 17:40 Pulse Oximetry 97 03/20/24 17:40 Oxygen Delivery Method Room Air 03/20/24 17:40 Oxygen Flow Rate 0 03/20/24 17:40 Pain Level 10 03/20/24 17:40 Medical Decision Making This dictation utilizes [id number] dictation software and may contain unedited grammatical errors. 28 y/o F, well known to ED, cognitive delay, presents to ED today with a chief complaint of abdominal pain, blood in stool this morning, known hemorrhoids but states a lot of blood, and that she passed out for 20 minutes, then had a bloody stool again. Patients' medical history: Oppositional defiant disorder, IBS, anemia, borderline personality disorder, family history of colon cancer, PTSD, mesenteric lymphadenitis, blood in stool. Family and social history: noncontributory. Pertinent exam findings / vital signs include LLQ abdominal tenderness without Rovsings, benign cardiopulmonary status, neuro baseline. Differential / pathologies of concern include hemorrhoids, lower GI bleeding, diverticulitis. Diagnostic studies of: -CBC, CMP, CRP/ESR, uPreg, UA, Lipase, Lactate, Troponin, Magnesium, CTA ABD/Pelvis, EKG. -CBC nonspecific leukocytosis -CMP benign -Lactate 1.6 -Magnesium WNL -uPreg neg -Lipase WNL -EKG no sign of stemi or ectopy -CTA shows no acute pathology, known lymphadenitis, copious stool per rectum by my read Interventions of: -None, patient decided to leave AMA before CTA results could be given, would've given laxative/stool softener. ED Course/Assessment/Plan: 28-year-old female well-known to the ED presents with left-sided abdominal cramping, blood per rectum with stools, has had this in the past with known hemorrhoids, patient has poor understanding of health literacy. Counseled her that we need to rule out emergent pathology, she was very impatient stating why she had not had her CT done within 32 minutes of arrival. Stating that she needs to leave to go to work tomorrow. She does have significant stool per rectum on CTA to check for GI bleeding, she has a nonspecific leukocytosis but no other emergent findings, no bowel blockage, no emergent abdominal findings on CTA. Findings not consistent with SBO, diverticulitis, perforated diverticulitis, GI bleeding, likely has hemorrhoids. Disposition of Blood per Rectum. Patient verbalized understanding of the plan and return to ED criteria and engaged in shared decision making. Medical Records Medical records reviewed: Yes I reviewed the patient's medical records. Imaging Data Radiologic Study: Attestation: I personally reviewed and interpreted this imaging study as follows: Imaging: CT Scan Radiologist's impression: Exam: CTA Abdomen and Pelvis With Contrast Exam date and time: 03/20/2024 7:33 PM Age: 28 years old Clinical indication: Other: Rectal bleeding; Abdominal pain; Other: Abd pain; Additional info: Gi bleed protocol; Abd pain rectal bleeding TECHNIQUE: Imaging protocol: Computed tomographic angiography of the abdomen and pelvis with contrast. Exam focused on the arteries. 3D rendering (Not supervised by radiologist): MIP and/or 3D reconstructed images were created by the technologist. Contrast material: OMNI 350; Contrast volume: 100 ml; Contrast route: INTRAVENOUS (IV); COMPARISON: CT CHEST PE ABD PELVIS W 10/05/2022 9:01 PM FINDINGS: Lungs: Visualized lung bases are clear. Heart: Heart size normal. Esophagus: The visualized distal esophagus is largely contracted without gross abnormality. Aorta: Visualized thoracic aorta is normal. Abdominal aorta is normal. Vasculature: No acute process. No abdominal aortic aneurysm. Celiac trunk and mesenteric arteries: Celiac artery and its major branch vessels are normal. SMA and its major branch vessels are normal. RAYMON is normal. Renal arteries: Right renal artery is normal. Left renal artery is normal. There is also a smaller accessory left renal artery to the upper pole which is normal. Right iliac arteries: Right iliac arteries are normal. Left iliac arteries: Left iliac arteries are normal. Liver: Mild hepatomegaly measuring 20 cm craniocaudal. Normal contour. No mass lesions. No intrahepatic biliary ductal dilatation. Gallbladder and bile ducts: Normal. No calcified stones. No ductal dilation. Pancreas: Normal. No inflammatory changes or ductal dilation. Spleen: Splenomegaly measuring 14.2 cm. No focal splenic lesions. Adrenal glands: Normal. No adrenal mass. Kidneys and ureters: No acute abnormalities. No hydronephrosis or hydroureter. No urinary tract stones are identified. Stomach and bowel: The stomach is unremarkable. The small bowel is nondilated with no gross abnormality. No acute colonic abnormalities. No evidence of active GI hemorrhage. Appendix: The appendix is normal in caliber and demonstrates no evidence of appendicitis. Intraperitoneal space: No peritoneal free fluid or air. Lymph nodes: Mildly enlarged lymph nodes in the bilateral inguinal, central mesenteric, ileocolic, upper left periaortic, and celiac distributions, nonspecific. Urinary bladder: Unremarkable as visualized. Reproductive: Unremarkable as visualized. Bones/joints: No acute osseous abnormalities. Soft tissues: Unremarkable. IMPRESSION: 1. No evidence of active GI hemorrhage. 2. No vascular abnormalities. 3. Mild hepatomegaly. 4. Mild splenomegaly. No focal splenic lesions. 5. Mildly enlarged mesenteric, celiac, upper periaortic and inguinal nodes. These are nonspecific. Correlate clinically to exclude evidence of lymphoproliferative disease. Dictated and Authenticated by: Luis Armando Sahu MD. Ordering:LIBERTY Cole MD Lab Data Lab results reviewed: Yes I reviewed the patient's lab results. Labs: Laboratory Tests Range/Units 03/20/24 03/20/24 18:47 19:07 WBC (4.4-10.8) 10^3/uL 10.85 H RBC (3.93-5.22) 10^6/uL 5.44 H Hgb (11.2-15.7) g/dL 12.0 Hct (36.0-46.0) % 38.8 MCV (80-95) fL 71 L MCH (27.0-33.0) pg 22.1 L MCHC (32.0-36.0) % 30.9 L RDW (11.7-14.6) % 15.9 H Plt Count (130-400) 10^3/uL 282 MPV (8.0-11.0) fL Immature Gran % % 0.6 Neutrophils % % 67.0 Lymphocytes % % 22.7 Monocytes % % 7.7 Eosinophils % % 1.4 Basophils % % 0.6 Nucleated RBC % (0.0-0.3) % 0.0 Absolute Neutrophils (1.2-6.7) 10^3/uL 7.27 H Absolute Lymphocytes (1.2-3.4) 10^3/uL 2.46 Absolute Monocytes (0.1-0.8) 10^3/uL 0.84 H Absolute Eosinophils (0.0-0.7) 10^3/uL 0.15 Absolute Basophils (0.0-0.2) 10^3/uL 0.07 RBC Morphology See Below Hypochromasia 1+ Microcytosis 1+ ESR (0-20) mm/hr 12 VBG Lactate (0.6-1.4) mmol/L 1.6 H Sodium (136-145) mmol/L 142 Potassium (3.5-5.1) mmol/L 4.0 Chloride (98-107) mmol/L 106 Carbon Dioxide (21.0-32.0) mmol/L 25.3 Anion Gap (3-11) mmol/L 10.7 BUN (7-18) mg/dL 12 Creatinine (0.55-1.02) mg/dL 0.8 Est GFR (CKD-EPI 2020) (mL/min/1.73m2) 104.15 Glucose (74-106) mg/dL 180 H Calcium (8.5-10.1) mg/dL 9.0 Magnesium (1.8-2.4) mg/dL 2.0 Total Bilirubin (0.2-1.0) mg/dL 0.2 AST (15-37) U/L 13 L ALT (14-59) U/L 33 Alkaline Phosphatase (46-116) U/L 98 Troponin I (< or =60) ng/L < 50 C-Reactive Protein (<or=0.5) mg/dL 0.96 H Total Protein (6.4-8.2) g/dL 7.3 Albumin (3.4-5.0) g/dL 3.6 Lipase (16-77) U/L 32 Procalcitonin ng/mL < 0.1 Urine Color (Yellow) Yellow Urine Clarity (Clear) Cloudy Urine pH (5-8) 6.0 Ur Specific [place] (1.005-1.025) 1.025 Urine Protein (Neg-Trace) mg/dL Trace Urine Ketones (Negative) mg/dL Negative Urine Blood (Negative) Negative Urine Nitrite (Negative) Negative Urine Bilirubin (Negative) Negative Urine Urobilinogen (Up to 0.2) mg/dL 0.2 Ur Leukocyte Esterase (Negative) Negative Urine Glucose (Negative) mg/dL 500 H Quality:SDOH Health Related Social Needs: Health related social needs inadequate housing PFSH All Active Problems (Updated 03/20/24 @ 21:57 by HARRISON Carmona) Blood per rectum (Acute) Otitis media (Acute) Anxiety (Chronic) Emotional upset (Acute) Nausea (Acute) Contusion of right hand (Acute) Breakthrough bleeding on depo provera (Acute) Encounter for Depo-Provera contraception (Acute) Since 2017. Nicotine dependence (Acute) Contraception, generic surveillance (Acute) Hx of OCPs, Nexplanon, DepoProvera. 02/2023 Norethindrone 0.35mg till 05/2023. Resumed DepoProvera. 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 Hypertrophy of tonsils and adenoids Suicidal ideation Bipolar 2 disorder RBC microcytosis Vitamin D deficiency Steatosis of liver Back pain Dysuria Abdominal pain History of allergic reaction Hemolytic uremic syndrome PTSD (post-traumatic stress disorder) Mesenteric lymphadenitis Drug abuse, episodic use SASHA (stress urinary incontinence, female) Pain, dental Blood in stool History of mastoiditis Jaw pain TMJ tenderness, left Otalgia, right ear BMI 40.0-44.9, adult Overactive bladder (02/09/18) Generalized headaches (12/31/16) Depression (12/31/16) Depo-Provera contraceptive status (09/13/17) Depo-Provera contraception since 08/11/2017. Patient is using the Depo-Provera for menstrual cycle control. ADHD (attention deficit hyperactivity disorder) (12/31/16) Surgical History History of colonoscopy (~06/2022) Hx of tooth extraction History of kidney surgery Social History Smoking/Tobacco Use Status: Never Second Hand Exposure: No Smoking risk assessment performed?: Yes Alcohol Intake: former Drug use: Current Sobriety Substance use type: does not use Caregiver/Support person: Yes Housing: apartment Sexually active: Yes (female partner only now(May 2022). Has never had intercourse) Do you think of yourself as: lesbian/cash/homosexual What is your relationship status?: never Panel score (0-1 are the most socially isolated patients): 0 What type of physical activity do you participate in: none Seatbelt use: always Helmet use: Yes Do you feel safe at home: Yes Do you feel safe in your relationship?: Yes Additional Social history: has [facility] services/health care aide Female Reproductive History Menstrual control method: progesterone injection History History 0 Para Hx # Term Pregnancies Multiple births Hx # Pregnancies Ectopic pregnancies AB induced Hx Number of Living Children AB spontaneous
--- NOTE | 2024-03-20 17:59 | DI.CT_ITS ---
Exam(s) CT ABDOMEN PELVIS CTA EXAM: CT ABDOMEN PELVIS CTA CLINICAL HISTORY: GI bleed protocol; abd pain rectal bleeding. TECHNIQUE: Imaging Protocol: Axial CT angiography was performed with multi-slice acquisition and m ulti-planar and/or 3D reconstructions. CONTRAST MATERIAL: Intravenous: Omnipaque 350 Contrast volume:100mL Oral: No COMPARISON: CT CT ABDOMEN PELVIS W from 01/20/2024 FINDINGS: ABDOMEN AND PELVIS: Abdomen: Celiac axis/mesenteric arteries: No evidence of occlusion or significant stenosis. Renal Arteries: No evidence of occlusion or significant stenosis. Aorta: No evidence of occlusion or significant stenosis. No aneurysm or dissection. Pelvis: Iliac Arteries: No evidence of occlusion or significant stenosis. Common Femoral Arteries: No evidence of occlusion or significant stenosis. ABDOMEN: Lung bases: Unremarkable. Liver: Normal density. No measurable mass. The liver measures 20.2 cm long. Portal, Superior Mesenteric, and Splenic Veins: Unremarkable. Gallbladder and Biliary Tract: No radiodense calculus or dilation. Pancreas: Normal density, no abnormal calcifications or inflammatory process. Spleen: The spleen is at the upper limits of normal measuring 12 cm. Adrenals: No masses seen. Kidneys: Normal size, contour and axis. No radiodense stones or obstructive uropathy. No masses seen. Bowel: No obstruction or bowel wall thickening. No evidence of appendicitis. Peritoneal Cavity: No ascites, collection or mesenteric inflammatory response. No free air. Lymph Nodes: Mildly prominent mesenteric lymph nodes are present. Bones: Within normal limits for the patient's age. Soft Tissues: Unremarkable. PELVIS: Bladder: Symmetric distention, no gross wall thickening. Reproductive Organs: Unremarkable as visualized. Lymph Nodes: Within normal limits. Bones: Within normal limits. IMPRESSION: 1. Unremarkable CT angiography of the abdomen and pelvis. 2. No evidence of active gastrointestinal bleeding. 3. Hepatomegaly. 4. Nonspecific enlarged abdominal lymph nodes. Please correlate clinically. Unexpected findings RADIATION DOSE DELIVERED: 3,456.71mGy.cm Total DLP DATA REPOSITORY: All CT scans at this facility are submitted to the National Radiology Data Registry (NRDR) Dose Index Registry (DIR) with the [employer] (ACR). RADIATION OPTIMIZATION: All CT scans at this facility use at least one of these dose optimization te chniques: automated exposure control; mA and/or kV adjustment per patient size (includes targeted exa ms where dose is matched to clinical indication); or iterative reconstruction.
[2024-03-20] MEDS: ACETAMINOPHEN 1,000 MG/100 ML BTL 400 MG IVPB (18:45)
[2024-03-20 18:54] LABS: Lactate 1.6 mmol/L (0.6-1.4)
[2024-03-20 18:55] LABS: Abs Immature Grans 0.07 10^3/uL (0.0-0.06); Absolute Eosinophil Count 0.15 10^3/uL (0.0-0.7); Absolute Lymphocyte Count 2.46 10^3/uL (1.2-3.4); Absolute Monocyte Count 0.84 10^3/uL (0.1-0.8); Absolute Neutrophil Count 7.27 10^3/uL (1.2-6.7); Basophils % 0.6 %; Eosinophils % 1.4 %; HCT 38.8 % (36.0-46.0); Immature Grans % 0.6 %; Lymphocytes % 22.7 %; MCH 22.1 pg (27.0-33.0); MCHC 30.9 % (32.0-36.0); MCV 71 fL (80-95); Monocytes % 7.7 %; RBC 5.44 10^6/uL (3.93-5.22); RDW 15.9 % (11.7-14.6); RDW-SD 40.4 fL; WBC 10.85 10^3/uL (4.4-10.8)
[2024-03-20 18:59] LABS: ESR 12 mm/hr (0-20)
[2024-03-20 19:10] LABS: Absolute Basophil Count 0.07 10^3/uL (0.0-0.2)
[2024-03-20 19:11] LABS: Diff Comment RBC Morph Reviewed; Hypochromasia 1+; Platelet Count 282 10^3/uL (130-400)
[2024-03-20 19:12] LABS: Microcytosis 1+
[2024-03-20 19:19] LABS: ALT 33 U/L (14-59); AST 13 U/L (15-37); Albumin 3.6 g/dL (3.4-5.0); Alkaline Phosphatase 98 U/L (46-116); Anion Gap 10.7 mmol/L (3-11); BUN 12 mg/dL (7-18); Bilirubin, Total 0.2 mg/dL (0.2-1.0); C-Reactive Protein 0.96 mg/dL (<or=0.5); CO2 25.3 mmol/L (21.0-32.0); CREATININE 0.8 mg/dL (0.55-1.02); Chloride 106 mmol/L (98-107); Estimated GFR 104.15 (mL/min/1.73m2); Glucose 180 mg/dL (74-106); Lipase 32 U/L (16-77); Sodium 142 mmol/L (136-145); Total Protein 7.3 g/dL (6.4-8.2)
[2024-03-20 19:20] LABS: Bilirubin Negative (Negative); Blood Negative (Negative); Clarity Cloudy (Clear); Glucose 500 mg/dL (Negative); Ketones Negative (Negative); Leukocyte Esterase Negative (Negative); Nitrite Negative (Negative); Specific Gravity 1.025 (1.005-1.025); Urobilinogen 0.2 mg/dL (Up to 0.2)
[2024-03-20 19:22] LABS: Troponin I < 50 ng/L (< or =60)
[2024-03-20] MEDS: Normal Saline - Diluent 50 ML VIAL IJ (19:27)
[2024-03-20] MEDS: Omnipaque 350 MG/ML 100 ML BTL IJ (19:28)
[2024-03-20 19:30] LABS: Procalcitonin < 0.1 ng/mL
--- NOTE | 2024-03-20 20:45 | W.EDPROG ---
Date of service: 03/20/24 Time of Service: 20:46 Medical Decision Making Patient requesting female provider for rectal exam. Small visible external hemorrhoid on exam. No active bleeding. Normal internal rectal exam. No conchita blood on glove. Quality:SDOH Health Related Social Needs: Health related social needs inadequate housing Discharge Plan Discharge Details Chief Complaint: GI Bleed Primary Care Provider: Niyah Serna ED Provider: Douglas Keith Home Meds and New Rx's Prescriptions: No Action melatonin 3 mg tablet 6 mg PO HS medroxyprogesterone 150 mg/mL syringe 150 mg IM [id number] Qty: 1 5RF meclizine 25 mg tablet 25 mg PO BID PRN (Reason: dizziness) Qty: 14 0RF labetalol 100 mg tablet 100 mg PO QAM Patient Comments: 1/2 Tab QAM Ozempic 0.25 mg or 0.5 mg (2 mg/3 mL) pen injector 0.25 mg subcut QWEEK Patient Comments: takes Qwednesdays Rx Instructions: for 4 weeks quetiapine 25 mg tablet 25 mg PO BID docusate sodium 100 mg capsule 100 mg PO DAILY pantoprazole 40 mg Tablet,Delayed Release (Dr/Ec) 40 mg PO QAM clonidine HCl 0.2 mg tablet 0.2 mg PO QHS metaxalone 800 mg tablet 800 mg PO TID PRNQty: 20 0RF diphenoxylate-atropine [Lomotil] 2.5-0.025 mg tablet 1 tab PO DAILY Qty: 10 0RF Hold Instructions: pt now constipated
--- NOTE | 2024-03-20 21:11 | DI.VRAD_ITS ---
PROCEDURE INFORMATION: Exam: CTA Abdomen and Pelvis With Contrast Exam date and time: 03/20/2024 7:33 PM Age: 28 years old Clinical indication: Other: Rectal bleeding; Abdominal pain; Other: Abd pain; Additional info: Gi bleed protocol; Abd pain rectal bleeding TECHNIQUE: Imaging protocol: Computed tomographic angiography of the abdomen and pelvis with contrast. Exam focused on the arteries. 3D rendering (Not supervised by radiologist): MIP and/or 3D reconstructed images were created by the technologist. Contrast material: OMNI 350; Contrast volume: 100 ml; Contrast route: INTRAVENOUS (IV); COMPARISON: CT CHEST PE ABD PELVIS W 10/05/2022 9:01 PM FINDINGS: Lungs: Visualized lung bases are clear. Heart: Heart size normal. Esophagus: The visualized distal esophagus is largely contracted without gross abnormality. Aorta: Visualized thoracic aorta is normal. Abdominal aorta is normal. Vasculature: No acute process. No abdominal aortic aneurysm. Celiac trunk and mesenteric arteries: Celiac artery and its major branch vessels are normal. SMA and its major branch vessels are normal. RAYMON is normal. Renal arteries: Right renal artery is normal. Left renal artery is normal. There is also a smaller accessory left renal artery to the upper pole which is normal. Right iliac arteries: Right iliac arteries are normal. Left iliac arteries: Left iliac arteries are normal. Liver: Mild hepatomegaly measuring 20 cm craniocaudal. Normal contour. No mass lesions. No intrahepatic biliary ductal dilatation. Gallbladder and bile ducts: Normal. No calcified stones. No ductal dilation. Pancreas: Normal. No inflammatory changes or ductal dilation. Spleen: Splenomegaly measuring 14.2 cm. No focal splenic lesions. Adrenal glands: Normal. No adrenal mass. Kidneys and ureters: No acute abnormalities. No hydronephrosis or hydroureter. No urinary tract stones are identified. Stomach and bowel: The stomach is unremarkable. The small bowel is nondilated with no gross abnormality. No acute colonic abnormalities. No evidence of active GI hemorrhage. Appendix: The appendix is normal in caliber and demonstrates no evidence of appendicitis. Intraperitoneal space: No peritoneal free fluid or air. Lymph nodes: Mildly enlarged lymph nodes in the bilateral inguinal, central mesenteric, ileocolic, upper left periaortic, and celiac distributions, nonspecific. Urinary bladder: Unremarkable as visualized. Reproductive: Unremarkable as visualized. Bones/joints: No acute osseous abnormalities. Soft tissues: Unremarkable. IMPRESSION: 1. No evidence of active GI hemorrhage. 2. No vascular abnormalities. 3. Mild hepatomegaly. 4. Mild splenomegaly. No focal splenic lesions. 5. Mildly enlarged mesenteric, celiac, upper periaortic and inguinal nodes. These are nonspecific. Correlate clinically to exclude evidence of lymphoproliferative disease. Dictated and Authenticated by: Luis Armando Sahu MD. Ordering:LIBERTY Cole MD
--- NOTE | 2024-03-20 21:12 | NUR.NOTE ---
Nursing Note: pt rang call light and advised this nurse her ride is here and she has to leave at this moment. She advised she has to work in the am and can not spend any more time here, she called her ride and they are waiting outside. Pt would not allow this nurse to take VS prior to departure, but did sign AMA paperwork. IV previously dc'd per pt request.
== END 2024-03-20 21:13 | disposition left against medical advice (07) ==
PROVIDERS: Emergency Provider Physician Assistant; PCP Nurse Practitioner Family
DX: R10.32 Left lower quadrant pain (principal); K62.5 Hemorrhage of anus and rectum; Z87.19 Personal history of other diseases of the digestive system
CPT/HCPCS: 00123; 36415; 80053; 81025; 83690; 84145; 85652; 93005; 96365; 99285; 74174; 81003; 83605; 83735; 84484; 85025; 86140; 93010; 99283; J0131; J3490

== ENCOUNTER → 2024-03-22 03:28 | Outpatient (CLI) | payer MEDICAID, SELFPAY ==
--- NOTE | 2024-03-22 | DI.US_ITS ---
Exam(s) US BREAST RT COMPLETE MG MAMMO DIAGNOSTIC BI EXAM: MG MAMMO DIAGNOSTIC BI AND COMPLETE RIGHT BREAST ULTRASOUND CLINICAL HISTORY: N64.4 Mastodynia. TECHNIQUE: CC AND MLO VIEWS OF BOTH BREASTS mammographic images were obtained with 3D tomosynthesis technique and utilizing computer aided detection (CAD). COMPLETE RIGHT BREAST ULTRASOUND performed including all 4 quadrants as well as the right axilla. COMPARISON: Baseline breast imaging on this 28-year-old patient who has breast pain. She denies a l ump. No nipple discharge. No recent piercings. FINDINGS: DIAGNOSTIC BILATERAL MAMMOGRAM: There are no CAD designations. There are no spiculated masses nor malignant-appearing microcalcification groups in either breast. There is no significant architectural distortion nor skin thickening-retraction. COMPLETE RIGHT BREAST ULTRASOUND: There is no evidence of solid or significant cystic lesions in all 4 quadrants of the right breast. Scanning of the right axilla is negative for significant adenopathy. IMPRESSION: No radiographic evidence of malignancy Negative complete right breast ultrasound The patient was informed of the findings and follow-up recommendations prior to leaving the [facility]. BI-RADS Category 1 - Negative Breast Density - Category B - Scattered areas of fibroglandular density Breast density Category C or D implies that the patient has dense breast tissue. Dense breast tissue can make it harder to find cancer on a mammogram. Dense breast tissue is also associated with an incr eased risk of breast cancer. This information about the result of the mammogram report was provided to the patient to raise their awareness. Use this report when you speak with the patient about their risks for breast cancer, which includes their family history. At that time, you may recommend additional screening tests (Ultrasoun d or MRI) as these tests may add significant information. A negative radiographic report should not delay biopsy if a dominant or clinically suspicious mass is present. Up to ten percent of cancers are not identified on mammography. A negative report may reinforce clinical impression. Adenosis and dense breasts may obscure an underlying neoplasm. False positive reports average 6 to 10%. Patient will receive a letter notifying them of these results.
== END ==
PROVIDERS: PCP Nurse Practitioner Family; Visit Provider Nurse Practitioner Family
DX: Z12.31 Encounter for screening mammogram for malignant neoplasm of breast (principal); N64.4 Mastodynia
CPT/HCPCS: 76642; 77062; 77066; G0279

== ENCOUNTER 2024-03-28 20:43 | Emergency (ER) | payer MEDICAID, SELFPAY ==
[2024-03-28 20:45] VITALS: BP 144/66; PULSE 115; RESP 16; TEMP 36.9; O2SAT 99
--- NOTE | 2024-03-28 21:06 | W.ED.GENAD ---
Discharge Plan Disposition Patient Disposition: Against Medical Advice Discharge Details Chief Complaint: ForeignBody Clinical Impression: Puncture wound of nose with foreign body Primary Care Provider: Niyah Serna ED Provider: Luis Armando Schmitz Home Meds and New Rx's Prescriptions: No Action melatonin 3 mg tablet 6 mg PO HS medroxyprogesterone 150 mg/mL syringe 150 mg IM [id number] Qty: 1 5RF meclizine 25 mg tablet 25 mg PO BID PRN (Reason: dizziness) Qty: 14 0RF labetalol 100 mg tablet 100 mg PO QAM Patient Comments: 1/2 Tab QAM Ozempic 0.25 mg or 0.5 mg (2 mg/3 mL) pen injector 0.25 mg subcut QWEEK Patient Comments: takes Qwednesdays Rx Instructions: for 4 weeks quetiapine 25 mg tablet 25 mg PO BID docusate sodium 100 mg capsule 100 mg PO DAILY pantoprazole 40 mg Tablet,Delayed Release (Dr/Ec) 40 mg PO QAM clonidine HCl 0.2 mg tablet 0.2 mg PO QHS metaxalone 800 mg tablet 800 mg PO TID PRNQty: 20 0RF diphenoxylate-atropine [Lomotil] 2.5-0.025 mg tablet 1 tab PO DAILY Qty: 10 0RF Hold Instructions: pt now constipated HPI General Date/Time Provider Initiated Documentation: 03/28/24 21:04. HPI Narrative: MDM This is an uncomfortable appearing tachycardic but normothermic 28-year-old female with retained plastic deployment device from nasal piercing in her left naris which patient was able to remove herself in the emergency department. Subsequently patient removed her left new nasal piercing. There is mild epistaxis. I wanted to observe the patient. I had ordered oxymetazoline which patient refused as she reportedly said that she was on CPAP and told not to use nasal sprays. I was planning on placing a nasal clamp and watching the patient for 15 minutes. Given the patient left AGAINST MEDICAL ADVICE I was not able to repeat her heart rate which was elevated on arrival and likely secondary to pain. Based on patient's age no indication for tetanus update. Patient left with her nasal piercing gun and her nose ring in a plastic container. 1. I explained the current situation and condition to the patient. 2. I explained the recommended treatment for this condition ?continued ED monitoring of epistaxis 3. I explained the risk of not having the recommended treatment ?ongoing blood loss and pain 4. The patient understands this information has no questions, and repeated back this information. 5. The patient states that they need to leave and will return if symptoms worsen 6. Mental status is lucid and the patient has decision-making capacity. 7. Patient is withdrawing consent for care HPI This is a 28-year-old female appearing arriving to the emergency department via private vehicle with the deployment device from a home nose piercing device stuck in her left naris. Patient reports that this nose piercing gun has been stuck in her nose for the past approximately 1 hour. She attempted to remove it at home. She is not on a blood thinner. Her bleeding is controlled. Denies any other injuries. Exam General: Uncomfortable-appearing in no acute distress speaking in complete sentences. Head: Normocephalic, atraumatic. Eye: Extraocular eye movements intact. No conjunctival injection. No scleral icterus. Ear, nose, mouth, throat: Inside the left nares there is a plastic deployment device attached to a left nasal piercing. There is signs of recent mild epistaxis. No ongoing bleeding. Neck: Trachea midline. Cardiovascular: Well-perfused distal extremities. Respiratory: Nonlabored respiration. Gastrointestinal: Nondistended abdomen. Musculoskeletal: No edema. Moving all 4 extremities spontaneously. Skin: Normal for age and race, grossly normal temperature and turgor. No acute rash. Neurologic: Alert and appropriate, no apparent acute deficits. Psychiatric: Mood and manner are appropriate. Grooming and personal hygiene are appropriate. Related Data Home Medications Medication Instructions Recorded Confirmed labetalol 100 mg tablet 100 mg PO QAM 09/25/21 03/28/24 melatonin 3 mg tablet 6 mg PO HS 09/25/21 03/28/24 pantoprazole 40 mg tablet,delayed 40 mg PO QAM 11/22/22 03/28/24 release clonidine HCl 0.2 mg tablet 0.2 mg PO QHS 02/15/23 03/28/24 docusate sodium 100 mg capsule 100 mg PO DAILY 03/24/23 03/28/24 quetiapine 25 mg tablet 25 mg PO BID 03/24/23 03/28/24 semaglutide 0.25 mg or 0.5 mg (2 0.25 mg subcut QWEEK 08/11/23 03/28/24 mg/3 mL) subcutaneous pen injector (Ozempic) diphenoxylate-atropine 2.5 1 tab PO DAILY #10 tabs 09/22/23 03/28/24 mg-0.025 mg tablet (Lomotil) medroxyprogesterone 150 mg/mL 150 mg IM [id number] #1 mL 11/14/23 03/28/24 intramuscular syringe metaxalone 800 mg tablet 800 mg PO TID PRN #20 tabs 12/22/23 03/28/24 meclizine 25 mg tablet 25 mg PO BID PRN dizziness #14 tabs 02/17/24 03/28/24 Previous Rx's Medication Instructions Recorded diphenoxylate-atropine 2.5 1 tab PO DAILY #10 tabs 09/22/23 mg-0.025 mg tablet (Lomotil) medroxyprogesterone 150 mg/mL 150 mg IM [id number] #1 mL 11/14/23 intramuscular syringe metaxalone 800 mg tablet 800 mg PO TID PRN #20 tabs 12/22/23 meclizine 25 mg tablet 25 mg PO BID PRN dizziness #14 tabs 02/17/24 Allergies Allergy/AdvReac Type Severity Reaction Status Date / Time fluticasone Allergy Severe unknown Verified 03/28/24 20:48 [From Flovent HFA] fluoxetine Allergy Intermediate Other (See Verified 03/28/24 20:48 Comment) ibuprofen Allergy Intermediate vomiting Verified 03/28/24 20:48 lisinopril Allergy Intermediate unknown Verified 03/28/24 20:48 naproxen [From Aleve] Allergy Intermediate vomiting Verified 03/28/24 20:48 paroxetine HCl [From Paxil] Allergy Intermediate Hives Verified 03/28/24 20:48 risperidone [From Risperdal] Allergy Intermediate Hives Verified 03/28/24 20:48 sertraline Allergy Intermediate Other (See Verified 03/28/24 20:48 Comment) NSAIDS (Non-Steroidal Allergy Due to Verified 03/28/24 20:48 Anti-Inflamma prior kidney damage acetaminophen AdvReac Nausea Unverified 03/28/24 20:48 amoxicillin AdvReac Nausea Verified 03/28/24 20:48 seafood Allergy Intermediate unknown Uncoded 03/28/24 20:48 enviornmental Allergy Mild sneezing Uncoded 03/28/24 20:48 dark sodas AdvReac Severe Other (See Uncoded 03/28/24 20:48 Comment) General Stated Complaint: ForeignBody MARY KAY: 4 Course Vital Signs Vital signs: Vital Signs Temperature 36.9 C 03/28/24 20:45 Pulse 115 H 03/28/24 20:45 Respiratory Rate 16 03/28/24 20:45 Blood Pressure 144/66 H 03/28/24 20:45 Pulse Oximetry 99 03/28/24 20:45 Temperature 36.9 C 03/28/24 20:45 Temperature Source Temporal Artery Scan 03/28/24 20:45 Pulse 115 H 03/28/24 20:45 Respiratory Rate 16 03/28/24 20:45 Respiratory Effort Normal, Non-Labored 03/28/24 20:49 Blood Pressure 144/66 H 03/28/24 20:45 Blood Pressure Position Sitting 03/28/24 20:45 Pulse Oximetry 99 03/28/24 20:45 Oxygen Delivery Method Room Air 03/28/24 20:45 Oxygen Flow Rate 0 03/28/24 20:45 Pain Level 10 03/28/24 20:45 Medical Decision Making Quality:SDOH Health Related Social Needs: Health related social needs inadequate housing PFSH All Active Problems (Updated 03/28/24 @ 23:11 by Luis Armando Schmitz MD) Puncture wound of nose with foreign body (Acute) Blood per rectum (Acute) Otitis media (Acute) Anxiety (Chronic) Emotional upset (Acute) Nausea (Acute) Breakthrough bleeding on depo provera (Acute) Encounter for Depo-Provera contraception (Acute) Since 2016. Nicotine dependence (Acute) Contraception, generic surveillance (Acute) Hx of OCPs, Nexplanon, DepoProvera. 02/2023 Norethindrone 0.35mg till 05/2023. Resumed DepoProvera. 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 Hypertrophy of tonsils and adenoids Suicidal ideation Bipolar 2 disorder RBC microcytosis Vitamin D deficiency Steatosis of liver Back pain Dysuria Abdominal pain History of allergic reaction Hemolytic uremic syndrome PTSD (post-traumatic stress disorder) Mesenteric lymphadenitis Drug abuse, episodic use SASHA (stress urinary incontinence, female) Pain, dental Blood in stool History of mastoiditis Jaw pain TMJ tenderness, left Otalgia, right ear BMI 40.0-44.9, adult Overactive bladder (02/09/18) Generalized headaches (12/31/16) Depression (12/31/16) Depo-Provera contraceptive status (09/13/17) Depo-Provera contraception since 08/11/2017. Patient is using the Depo-Provera for menstrual cycle control. ADHD (attention deficit hyperactivity disorder) (12/31/16) Surgical History History of colonoscopy (~06/2022) Hx of tooth extraction History of kidney surgery Social History Smoking/Tobacco Use Status: Never Second Hand Exposure: No Smoking risk assessment performed?: Yes Alcohol Intake: former Drug use: Current Sobriety Substance use type: does not use Caregiver/Support person: Yes Housing: apartment Sexually active: Yes (female partner only now(May 2022). 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
== END 2024-03-28 21:37 | disposition left against medical advice (07) ==
PROVIDERS: Emergency Provider Emergency Medicine; PCP Nurse Practitioner Family
DX: T17.1XXA Foreign body in nostril, initial encounter (principal); R04.0 Epistaxis; M79.5 Residual foreign body in soft tissue; W44.B9XA Other plastic object entering into or through a natural orifice, initial encounter; Y93.E8 Activity, other personal hygiene; Y92.018 Other place in single-family (private) house as the place of occurrence of the external cause; Z53.29 Procedure and treatment not carried out because of patient's decision for other reasons
CPT/HCPCS: 99283

== ENCOUNTER 2024-04-02 17:50 | Emergency (ER) | payer MEDICAID, SELFPAY ==
--- NOTE | 2024-04-02 17:30 | RT.EKG_ITS ---
APPROVED REPORT Exam: Resting ECG Reason for Exam: central chest pressure Patient Location: E HR:108 bpm ECG Measurements Heart Rate 108 AXIS WV 136 P 27 QRSd 83 QRS 24 QT 321 T -1 QTc 430 Conclusion Sinus tachycardia...rate> 99 sinus tachycardia, normal axis, normal intervals, non ischemic
[2024-04-02 17:51] VITALS: BP 163/123; PULSE 111; RESP 20; O2SAT 98
--- NOTE | 2024-04-02 18:00 | W.ED.GENAD ---
Discharge Plan Disposition Patient Disposition: Home Condition: Improving Discharge Details Chief Complaint: Chest Pain Clinical Impression: Chest pain Primary Care Provider: Niyah Serna ED Provider: Zeb Mcguire Home Meds and New Rx's Prescriptions: No Action melatonin 3 mg tablet 6 mg PO HS medroxyprogesterone 150 mg/mL syringe 150 mg IM [id number] Qty: 1 5RF meclizine 25 mg tablet 25 mg PO BID PRN (Reason: dizziness) Qty: 14 0RF labetalol 100 mg tablet 100 mg PO QAM Patient Comments: 1/2 Tab QAM Ozempic 0.25 mg or 0.5 mg (2 mg/3 mL) pen injector 0.25 mg subcut QWEEK Patient Comments: takes Qwednesdays Rx Instructions: for 4 weeks quetiapine 25 mg tablet 25 mg PO BID docusate sodium 100 mg capsule 100 mg PO DAILY pantoprazole 40 mg Tablet,Delayed Release (Dr/Ec) 40 mg PO QAM clonidine HCl 0.2 mg tablet 0.2 mg PO QHS metaxalone 800 mg tablet 800 mg PO TID PRNQty: 20 0RF Discharge Instructions Instructions: Chest Pain (ED) Additional Instructions: Please follow-up with your primary care physician. HPI General Date/Time Provider Initiated Documentation: 04/02/24 17:52. HPI Narrative: 28-year-old female presents with anterior chest pain that began while she was talking to her friends on the phone. Greatly improved nonradiating no respiratory symptoms. No leg swelling or pain. No history of thromboembolic disease no exogenous estrogen use no history of coronary disease. Patient does have history of anxiety Related Data Home Medications Medication Instructions Recorded Confirmed labetalol 100 mg tablet 100 mg PO QAM 09/25/21 04/02/24 melatonin 3 mg tablet 6 mg PO HS 09/25/21 04/02/24 pantoprazole 40 mg tablet,delayed 40 mg PO QAM 11/22/22 04/02/24 release clonidine HCl 0.2 mg tablet 0.2 mg PO QHS 02/15/23 04/02/24 docusate sodium 100 mg capsule 100 mg PO DAILY 03/24/23 04/02/24 quetiapine 25 mg tablet 25 mg PO BID 03/24/23 04/02/24 semaglutide 0.25 mg or 0.5 mg (2 0.25 mg subcut QWEEK 08/11/23 04/02/24 mg/3 mL) subcutaneous pen injector ([employer]) medroxyprogesterone 150 mg/mL 150 mg IM [id number] #1 mL 11/14/23 04/02/24 intramuscular syringe metaxalone 800 mg tablet 800 mg PO TID PRN #20 tabs 12/22/23 04/02/24 meclizine 25 mg tablet 25 mg PO BID PRN dizziness #14 tabs 02/17/24 04/02/24 Previous Rx's Medication Instructions Recorded medroxyprogesterone 150 mg/mL 150 mg IM [id number] #1 mL 11/14/23 intramuscular syringe metaxalone 800 mg tablet 800 mg PO TID PRN #20 tabs 12/22/23 meclizine 25 mg tablet 25 mg PO BID PRN dizziness #14 tabs 02/17/24 Allergies Allergy/AdvReac Type Severity Reaction Status Date / Time fluticasone Allergy Severe unknown Verified 04/02/24 17:53 [From Flovent HFA] fluoxetine Allergy Intermediate Other (See Verified 04/02/24 17:53 Comment) ibuprofen Allergy Intermediate vomiting Verified 04/02/24 17:53 lisinopril Allergy Intermediate unknown Verified 04/02/24 17:53 naproxen [From Aleve] Allergy Intermediate vomiting Verified 04/02/24 17:53 paroxetine HCl [From Paxil] Allergy Intermediate Hives Verified 04/02/24 17:53 risperidone [From Risperdal] Allergy Intermediate Hives Verified 04/02/24 17:53 sertraline Allergy Intermediate Other (See Verified 04/02/24 17:53 Comment) NSAIDS (Non-Steroidal Allergy Due to Verified 04/02/24 17:53 Anti-Inflamma prior kidney damage acetaminophen AdvReac Nausea Unverified 04/02/24 17:53 amoxicillin AdvReac Nausea Verified 04/02/24 17:53 seafood Allergy Intermediate unknown Uncoded 04/02/24 17:53 enviornmental Allergy Mild sneezing Uncoded 04/02/24 17:53 dark sodas AdvReac Severe Other (See Uncoded 04/02/24 17:53 Comment) General Stated Complaint: Chest Pain MARY KAY: 3 Review of Systems Narrative: Review of Systems Constitutional: negative Eyes: negative ENT: negative Cardiovascular: Chest pain Respiratory: negative Gastrointestinal: negative : negative Musculoskeletal: negative Skin: negative Neurologic: negative Psych: negative Exam Narrative Exam Narrative: Physical Examination General: alert, awake, cooperative, resting comfortably, no acute distress HEENT: normocephalic, atraumatic; PERRL, EOM intact, conjunctiva normal; no nasal discharge; moist mucous membranes, oral and pharyngeal mucosa normal, tolerating secretions Neck: supple, trachea midline; full ROM Chest: normal to inspection Respiratory: normal respiratory effort, speaking in full sentences Cardiac: regular rate, regular rhythm, S1S2 intact, no murmurs rubs or gallops GI: abdomen soft, non-tender, non-distended; no palpable mass or hepatosplenomegaly Skin: no lesions, rashes or trauma appreciated Neuro: AAOx3, normal speech, moving all extremities Extremities: No peripheral edema Psych: Appropriate mood and affect Course Vital Signs Vital signs: Vital Signs Pulse 111 H 04/02/24 17:51 Respiratory Rate 20 04/02/24 17:51 Blood Pressure 163/123 H 04/02/24 17:51 Pulse Oximetry 98 04/02/24 17:51 Pulse 111 H 04/02/24 17:51 Respiratory Rate 20 04/02/24 17:51 Respiratory Effort Normal, Non-Labored 04/02/24 17:53 Blood Pressure 163/123 H 04/02/24 17:51 Blood Pressure Position Sitting 04/02/24 17:51 Pulse Oximetry 98 04/02/24 17:51 Oxygen Delivery Method Room Air 04/02/24 17:51 Oxygen Flow Rate 0 04/02/24 17:51 Pain Level 5 04/02/24 17:51 Medical Decision Making 28-year-old female history of anxiety, presents with anterior chest pain that began while she was on the phone with her friends, nonradiating no respiratory distress no cough no fevers no peripheral edema no history of thromboembolic disease or risk factors, no history of coronary disease or risk factors. EKG sinus tachycardia normal axis nonischemic. Likely component of anxiety/panic attack lower suspicion for ACS PE or aortic pathology. Will trial low-dose benzodiazepine. Close reassessment of symptomatology. Likely home with close follow-up 18: 22 patient resting comfortably no acute distress. Asymptomatic. Quality:SDOH Health Related Social Needs: Health related social needs inadequate housing PFSH All Active Problems (Updated 04/02/24 @ 18:23 by Zeb Mcguire MD) Chest pain (Acute) Puncture wound of nose with foreign body (Acute) Blood per rectum (Acute) Otitis media (Acute) Anxiety (Chronic) Emotional upset (Acute) Breakthrough bleeding on depo provera (Acute) Encounter for Depo-Provera contraception (Acute) Since 2016. Nicotine dependence (Acute) Contraception, generic surveillance (Acute) Hx of OCPs, Nexplanon, DepoProvera. 02/2023 Norethindrone 0.35mg till 05/2023. Resumed DepoProvera. 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 Hypertrophy of tonsils and adenoids Suicidal ideation Bipolar 2 disorder RBC microcytosis Vitamin D deficiency Steatosis of liver Back pain Dysuria Abdominal pain History of allergic reaction Hemolytic uremic syndrome PTSD (post-traumatic stress disorder) Mesenteric lymphadenitis Drug abuse, episodic use SASHA (stress urinary incontinence, female) Pain, dental Blood in stool History of mastoiditis Jaw pain TMJ tenderness, left Otalgia, right ear BMI 40.0-44.9, adult Overactive bladder (02/09/18) Generalized headaches (12/31/16) Depression (12/31/16) Depo-Provera contraceptive status (09/13/17) Depo-Provera contraception since 08/11/2017. Patient is using the Depo-Provera for menstrual cycle control. ADHD (attention deficit hyperactivity disorder) (12/31/16) Surgical History History of colonoscopy (~06/2022) Hx of tooth extraction History of kidney surgery Social History Smoking/Tobacco Use Status: Never Second Hand Exposure: No Smoking risk assessment performed?: Yes Alcohol Intake: former Drug use: Current Sobriety Substance use type: does not use Caregiver/Support person: Yes Housing: apartment Sexually active: Yes (female partner only now(May 2022). 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
[2024-04-02] MEDS: clonazePAM 0.5 MG TAB 0.25 MG PO (18:06)
[2024-04-02 18:12] VITALS: BP 145/87
== END 2024-04-02 18:57 | disposition home or self-care (01) ==
PROVIDERS: Emergency Provider Emergency Medicine; PCP Nurse Practitioner Family
DX: R07.9 Chest pain, unspecified (principal); Z86.59 Personal history of other mental and behavioral disorders
CPT/HCPCS: 93005; 99282; 93010; 99283

== ENCOUNTER 2024-04-17 16:42 | Emergency (ER) | payer MEDICAID, SELFPAY ==
[2024-04-17] VITALS (15 sets, daily range): BP systolic 140–206; BP diastolic 101–112; PULSE 106–130; RESP 16–18; TEMP 36.7; O2SAT 97–100
[2024-04-17 17:16] LABS: Bilirubin Negative (Negative); Blood Negative (Negative); Clarity Sl Cloudy (Clear); Glucose Negative (Negative); Ketones Negative (Negative); Leukocyte Esterase Negative (Negative); Nitrite Negative (Negative); Specific Gravity >= 1.030 (1.005-1.025); Urobilinogen 0.2 mg/dL (Up to 0.2)
[2024-04-17 17:24] LABS: Bacteria Negative HPF (Negative); C & S Indicated? No/Sq. Contamination; Casts 0-2 Fine Granular LPF (Negative); Crystals Negative HPF (Negative); Epithelial Cells Many HPF (Negative); Mucus Heavy (Negative); Other Cells Rare Transitional (Negative); RBC Negative HPF (0-2)
[2024-04-17] MEDS: Ondansetron 4 MG/2 ML VIAL IVP (17:41)
[2024-04-17] MEDS: Ketorolac 15 MG/ML VIAL IVP (17:41)
[2024-04-17] MEDS: Normal Saline 1,000 ML 1000 ML IV (17:41)
[2024-04-17 17:51] LABS: Abs Immature Grans 0.06 10^3/uL (0.0-0.06); Absolute Basophil Count 0.06 10^3/uL (0.0-0.2); Absolute Eosinophil Count 0.11 10^3/uL (0.0-0.7); Absolute Monocyte Count 0.75 10^3/uL (0.1-0.8); Basophils % 0.5 %; Eosinophils % 0.9 %; HCT 45.2 % (36.0-46.0); HGB 13.9 g/dL (11.2-15.7); Immature Grans % 0.5 %; MCH 22.1 pg (27.0-33.0); MCHC 30.8 % (32.0-36.0); MCV 72 fL (80-95); Monocytes % 5.9 %; Neutrophils % 76.2 %; Platelet Count 298 10^3/uL (130-400); RBC 6.29 10^6/uL (3.93-5.22); RDW 16.9 % (11.7-14.6); RDW-SD 40.6 fL; WBC 12.66 10^3/uL (4.4-10.8)
[2024-04-17 17:52] LABS: Absolute Lymphocyte Count 2.03 10^3/uL (1.2-3.4); Absolute Neutrophil Count 9.65 10^3/uL (1.2-6.7)
[2024-04-17 18:09] LABS: ALT 33 U/L (14-59); AST 17 U/L (15-37); Albumin 4.4 g/dL (3.4-5.0); Alkaline Phosphatase 111 U/L (46-116); Anion Gap 14.1 mmol/L (3-11); BUN 9 mg/dL (7-18); Bilirubin, Total 0.5 mg/dL (0.2-1.0); CO2 21.9 mmol/L (21.0-32.0); CREATININE 0.9 mg/dL (0.55-1.02); Calcium 9.7 mg/dL (8.5-10.1); Chloride 103 mmol/L (98-107); Estimated GFR 89.86 (mL/min/1.73m2); Glucose 121 mg/dL (74-106); Sodium 139 mmol/L (136-145); Total Protein 8.6 g/dL (6.4-8.2)
[2024-04-17 18:11] LABS: Diff Comment RBC Morph Reviewed; Hypochromasia 1+; Microcytosis 2+
--- NOTE | 2024-04-17 20:11 | W.ED.GENAD ---
Discharge Plan Disposition Patient Disposition: Home Condition: Stable Discharge Details Clinical Impression: Dysuria, Tachycardia, Vomiting Primary Care Provider: Niyah Senra ED Provider: Anil Ferrer Home Meds and New Rx's Prescriptions: New ondansetron 4 mg tablet,disintegrating 4 mg PO Q8H PRN (Reason: nausea and vomiting) Qty: 14 0RF No Action melatonin 3 mg tablet 6 mg PO HS medroxyprogesterone 150 mg/mL syringe 150 mg IM [id number] Qty: 1 5RF meclizine 25 mg tablet 25 mg PO BID PRN (Reason: dizziness) Qty: 14 0RF labetalol 100 mg tablet 100 mg PO QAM Patient Comments: 1/2 Tab QAM Ozempic 0.25 mg or 0.5 mg (2 mg/3 mL) pen injector 0.25 mg subcut QWEEK Patient Comments: takes Qwednesdays Rx Instructions: for 4 weeks quetiapine 25 mg tablet 25 mg PO BID docusate sodium 100 mg capsule 100 mg PO DAILY pantoprazole 40 mg Tablet,Delayed Release (Dr/Ec) 40 mg PO QAM clonidine HCl 0.2 mg tablet 0.2 mg PO QHS metaxalone 800 mg tablet 800 mg PO TID PRNQty: 20 0RF (DME) lancets [OneTouch Delica Plus Lancet] 33 gauge misc MISCELLANEOUS Patient Comments: TEST BLOOD SUGAR ONCE DAILY Discharge Instructions Additional Instructions: no evidence of urinary tract infection today make sure to drink more water take zofran as needed for nausea follow up with your primary care doctor HPI General Date/Time Provider Initiated Documentation: 04/17/24 16:42. Limitations to Documentation: no limitations. Information obtained by: patient. HPI Narrative: 29-year-old female with past medical history of hypertension, psychiatric illness presents for evaluation of dysuria. She reports that she is worried today she has a urinary tract infection. She reports that she has been having burning with urination and a foul smell to her urine for the last 2 weeks. She reports that it is dark in color. She denies any frequency or urgency. She reports that she has had some intermittent vomiting and abdominal pain. She says that she talked to her doctor about the vomiting and her doctor told her that this was an eating disorder and that she should come to the emergency department and be evaluated. No diarrhea. No vaginal complaints. Related Data Home Medications Medication Instructions Recorded Confirmed labetalol 100 mg tablet 100 mg PO QAM 09/25/21 04/17/24 melatonin 3 mg tablet 6 mg PO HS 09/25/21 04/17/24 pantoprazole 40 mg tablet,delayed 40 mg PO QAM 11/22/22 04/17/24 release clonidine HCl 0.2 mg tablet 0.2 mg PO QHS 02/15/23 04/17/24 docusate sodium 100 mg capsule 100 mg PO DAILY 03/24/23 04/17/24 quetiapine 25 mg tablet 25 mg PO BID 03/24/23 04/17/24 semaglutide 0.25 mg or 0.5 mg (2 0.25 mg subcut QWEEK 08/11/23 04/17/24 mg/3 mL) subcutaneous pen injector (iiMonde) medroxyprogesterone 150 mg/mL 150 mg IM [id number] #1 mL 11/14/23 04/17/24 intramuscular syringe metaxalone 800 mg tablet 800 mg PO TID PRN #20 tabs 12/22/23 04/17/24 meclizine 25 mg tablet 25 mg PO BID PRN dizziness #14 tabs 02/17/24 04/17/24 lancets 33 gauge (OneTouch Delica 04/17/24 04/17/24 Plus Lancet) ondansetron 4 mg disintegrating 4 mg PO Q8H PRN nausea and 04/17/24 tablet vomiting #14 tabs Previous Rx's Medication Instructions Recorded medroxyprogesterone 150 mg/mL 150 mg IM [id number] #1 mL 11/14/23 intramuscular syringe metaxalone 800 mg tablet 800 mg PO TID PRN #20 tabs 12/22/23 meclizine 25 mg tablet 25 mg PO BID PRN dizziness #14 tabs 02/17/24 ondansetron 4 mg disintegrating 4 mg PO Q8H PRN nausea and 04/17/24 tablet vomiting #14 tabs Allergies Allergy/AdvReac Type Severity Reaction Status Date / Time fluticasone Allergy Severe unknown Verified 04/02/24 17:53 [From Flovent HFA] fluoxetine Allergy Intermediate Other (See Verified 04/02/24 17:53 Comment) ibuprofen Allergy Intermediate vomiting Verified 04/02/24 17:53 lisinopril Allergy Intermediate unknown Verified 04/02/24 17:53 naproxen [From Aleve] Allergy Intermediate vomiting Verified 04/02/24 17:53 paroxetine HCl [From Paxil] Allergy Intermediate Hives Verified 04/02/24 17:53 risperidone [From Risperdal] Allergy Intermediate Hives Verified 04/02/24 17:53 sertraline Allergy Intermediate Other (See Verified 04/02/24 17:53 Comment) NSAIDS (Non-Steroidal Allergy Due to Verified 04/02/24 17:53 Anti-Inflamma prior kidney damage acetaminophen AdvReac Nausea Unverified 04/02/24 17:53 amoxicillin AdvReac Nausea Verified 04/02/24 17:53 seafood Allergy Intermediate unknown Uncoded 04/02/24 17:53 enviornmental Allergy Mild sneezing Uncoded 04/02/24 17:53 dark sodas AdvReac Severe Other (See Uncoded 04/02/24 17:53 Comment) General Stated Complaint: Urinary MARY KAY: 3 Exam Narrative Exam Narrative: Review of Systems: All systems reviewed & are unremarkable except as noted in HPI and below Obese, no acute distress NCAT PERRL, normal conjunctiva Tachycardic hypertensive Unlabored respiratory effort Nondistended abdomen , nontender, no CVA tenderness Extremities w/o deformity, no cyanosis, no edema No rashes or lesions. no focal neurologic deficits Appropriate mood and affect Course Vital Signs Vital signs: Vital Signs Temperature 36.7 C 04/17/24 16:39 Pulse 130 H 04/17/24 16:39 Respiratory Rate 18 04/17/24 16:39 Blood Pressure 206/112 H 04/17/24 16:39 Pulse Oximetry 98 04/17/24 16:39 Temperature 36.7 C 04/17/24 16:39 Pulse 111 H 04/17/24 18:30 Respiratory Rate 16 04/17/24 16:53 Respiratory Effort Normal, Non-Labored 04/17/24 17:06 Blood Pressure 140/101 H 04/17/24 17:16 Blood Pressure Mean 114 04/17/24 17:16 Pulse Oximetry 99 04/17/24 18:30 Oxygen Delivery Method Room Air 04/17/24 16:39 Oxygen Flow Rate 0 04/17/24 16:39 Pain Level 5 04/17/24 18:38 Comment total pain 04/17/24 17:06 Comment sitting texting on phone 04/17/24 16:53 Lab/Test Results Lab/Test Results: Laboratory Tests Range/Units 04/17/24 04/17/24 16:46 17:32 WBC (4.4-10.8) 10^3/uL 12.66 H RBC (3.93-5.22) 10^6/uL 6.29 H Hgb (11.2-15.7) g/dL 13.9 Hct (36.0-46.0) % 45.2 MCV (80-95) fL 72 L MCH (27.0-33.0) pg 22.1 L MCHC (32.0-36.0) % 30.8 L RDW (11.7-14.6) % 16.9 H Plt Count (130-400) 10^3/uL 298 MPV (8.0-11.0) fL Immature Gran % % 0.5 Neutrophils % % 76.2 Lymphocytes % % 16.0 Monocytes % % 5.9 Eosinophils % % 0.9 Basophils % % 0.5 Nucleated RBC % (0.0-0.3) % 0.0 Absolute Neutrophils (1.2-6.7) 10^3/uL 9.65 H Absolute Lymphocytes (1.2-3.4) 10^3/uL 2.03 Absolute Monocytes (0.1-0.8) 10^3/uL 0.75 Absolute Eosinophils (0.0-0.7) 10^3/uL 0.11 Absolute Basophils (0.0-0.2) 10^3/uL 0.06 RBC Morphology See Below Hypochromasia 1+ Microcytosis 2+ Sodium (136-145) mmol/L 139 Potassium (3.5-5.1) mmol/L 4.0 Chloride (98-107) mmol/L 103 Carbon Dioxide (21.0-32.0) mmol/L 21.9 Anion Gap (3-11) mmol/L 14.1 H BUN (7-18) mg/dL 9 Creatinine (0.55-1.02) mg/dL 0.9 Est GFR (CKD-EPI 2020) (mL/min/1.73m2) 89.86 Glucose (74-106) mg/dL 121 H Calcium (8.5-10.1) mg/dL 9.7 Total Bilirubin (0.2-1.0) mg/dL 0.5 AST (15-37) U/L 17 ALT (14-59) U/L 33 Alkaline Phosphatase (46-116) U/L 111 Total Protein (6.4-8.2) g/dL 8.6 H Albumin (3.4-5.0) g/dL 4.4 Urine Color (Yellow) Yellow Urine Clarity (Clear) Sl Cloudy Urine pH (5-8) 6.0 Ur Specific [place] (1.005-1.025) >= 1.030 H Urine Protein (Neg-Trace) mg/dL 100 H Urine Ketones (Negative) mg/dL Negative Urine Blood (Negative) Negative Urine Nitrite (Negative) Negative Urine Bilirubin (Negative) Negative Urine Urobilinogen (Up to 0.2) mg/dL 0.2 Ur Leukocyte Esterase (Negative) Negative Urine RBC (0-2) HPF Negative Urine WBC (0-5) HPF 10-20 H Ur Epithelial Cells (Negative) HPF Many Urine Crystals (Negative) HPF Negative Urine Bacteria (Negative) HPF Negative Urine Casts (Negative) LPF 0-2 Fine Granular Urine Mucus (Negative) Heavy Urine Other (Negative) Rare Transitional Ur Culture Indicated? No/Sq. Contamination Urine Glucose (Negative) mg/dL Negative POC- Test(urine) Negative Medical Decision Making Emergent evaluation of dysuria. Initially patient was noted to be hypertensive and tachycardic, on arrival to the room, her blood pressure did improve. The patient's symptoms are concerning for urinary tract infection. Also consider dehydration. The patient does not have any significant abdominal pain or CVA tenderness that would make me concerned for an intra-abdominal process or pyelonephritis. Given her tachycardia, will get lab work, give IV fluids and reassess. Lab work was reviewed and independently interpreted. She does have a mild leukocytosis of 12. No significant anemia or left shift. She does have a slightly elevated anion gap, but no derangement in her renal function. She was resuscitated with IV fluids. She does not have signs of urinary tract infection on her urinalysis. She was given Zofran and Toradol via IV and her symptoms resolved. She is eating and tolerating p.o. in the emergency department. I will send a prescription for Zofran to her pharmacy. And I have advised that she should follow-up with her PCP for further evaluation of the symptoms. Medical Records Medical records reviewed: Yes I reviewed the patient's medical records. Lab Data Lab results reviewed: Yes I reviewed the patient's lab results. Quality:SDOH Health Related Social Needs: Health related social needs inadequate housing PFSH All Active Problems Vomiting (Acute) Tachycardia (Acute) Dysuria (Acute) Chest pain (Acute) Puncture wound of nose with foreign body (Acute) Blood per rectum (Acute) Breakthrough bleeding on depo provera (Acute) Encounter for Depo-Provera contraception (Acute) Since 2016. Nicotine dependence (Acute) Contraception, generic surveillance (Acute) Hx of OCPs, Nexplanon, DepoProvera. 02/2023 Norethindrone 0.35mg till 05/2023. Resumed DepoProvera. 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 Hypertrophy of tonsils and adenoids Suicidal ideation Bipolar 2 disorder RBC microcytosis Vitamin D deficiency Steatosis of liver Back pain Dysuria Abdominal pain History of allergic reaction Hemolytic uremic syndrome PTSD (post-traumatic stress disorder) Mesenteric lymphadenitis Drug abuse, episodic use SASHA (stress urinary incontinence, female) Pain, dental Blood in stool History of mastoiditis Jaw pain TMJ tenderness, left Otalgia, right ear BMI 40.0-44.9, adult Overactive bladder (02/09/18) Generalized headaches (12/31/16) Depression (12/31/16) Depo-Provera contraceptive status (09/13/17) Depo-Provera contraception since 08/11/2017. Patient is using the Depo-Provera for menstrual cycle control. ADHD (attention deficit hyperactivity disorder) (12/31/16) Surgical History History of colonoscopy (~06/2022) Hx of tooth extraction History of kidney surgery Social History Smoking/Tobacco Use Status: Never Second Hand Exposure: No Smoking risk assessment performed?: Yes Alcohol Intake: former Drug use: Current Sobriety Substance use type: does not use Caregiver/Support person: Yes Housing: apartment Sexually active: Yes (female partner only now(May 2022). 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
[2024-04-17 20:24] LABS: *AMPHETAMINES SCREEN URINE Negative (Negative); *BARBITURATES SCREEN URINE Negative (Negative); *BENZODIAZEPINES SCREEN URINE Negative (Negative); Cannabinoids THC Negative (Negative); Cocaine Screen,Urine Negative (Negative); METHADONE URINE SCREEN Negative (Negative); OPIATES URINE SCREEN Negative (Negative)
[2024-04-17 20:25] LABS: Tricyclic Antidepressants Negative (Negative)
== END 2024-04-17 19:18 | disposition home or self-care (01) ==
PROVIDERS: Emergency Provider Emergency Medicine; PCP Nurse Practitioner Family
DX: R11.10 Vomiting, unspecified (principal); R30.0 Dysuria; R00.0 Tachycardia, unspecified; I10 Essential (primary) hypertension
CPT/HCPCS: 36415; 80053; 80307; 96374; 96375; 99284; 81003; 81015; 85025; 99283; J1885; J2405

== ENCOUNTER 2024-05-01 20:15 | Emergency (ER) | payer MEDICAID, SELFPAY ==
[2024-05-01 20:20] VITALS: BP 142/108; PULSE 113; RESP 22; TEMP 36.9; O2SAT 98
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
--- NOTE | 2024-05-01 22:02 | DI.RAD_ITS ---
Exam(s) XR FOOT RT COMPLETE EXAM: XR FOOT RT COMPLETE CLINICAL HISTORY: Right great toe pain. TECHNIQUE: 2D digital imaging was performed. Three views. COMPARISON: CR,XR XR FOOT LT COMPLETE from 02/16/2022 FINDINGS: BONES: No acute fracture is present. No bony destructive lesion is seen. Small heel spurs. JOINTS: No dislocation present. SOFT TISSUE: Normal swelling over dorsum of foot. IMPRESSION: Soft tissue swelling. DATA REPOSITORY: RADIATION DOSE DELIVERED:
[2024-05-01] MEDS: Acetaminophen 500 MG TAB 1000 MG PO (22:12)
--- NOTE | 2024-05-01 23:06 | DI.VRAD_ITS ---
PROCEDURE INFORMATION: Exam: XR Right Foot Exam date and time: 05/01/2024 9:57 PM Age: 29 years old Clinical indication: Pain; Foot; Right TECHNIQUE: Imaging protocol: Radiologic exam of the right foot. Views: 3 or more views. COMPARISON: CR RIGHT KNEE 3 VIEWS 02/20/2018 9:31 PM FINDINGS: Bones/joints: Bone mineralization is age-appropriate. There is no evidence of fracture. No evidence of dislocation. There is a noninflamed plantar enthesophyte. Noninflamed enthesophyte seen within the region of the Achilles tendon. The joint spaces are adequately preserved; no significant degenerative narrowing and no bony erosion seen. Soft tissues: No radiopaque foreign body present. There is soft tissue swelling present. IMPRESSION: 1. No acute osseous abnormality. 2. There is soft tissue swelling present. Dictated and Authenticated by: Jerson Lara MD. Ordering:TAMRA Durán MD
[2024-05-01 23:09] LABS: HCG Qual (Serum) Negative
[2024-05-01 23:21] LABS: Abs Immature Grans 0.04 10^3/uL (0.0-0.06); Absolute Basophil Count 0.05 10^3/uL (0.0-0.2); Absolute Eosinophil Count 0.13 10^3/uL (0.0-0.7); Absolute Lymphocyte Count 2.41 10^3/uL (1.2-3.4); Absolute Monocyte Count 0.83 10^3/uL (0.1-0.8); Absolute Neutrophil Count 5.88 10^3/uL (1.2-6.7); Basophils % 0.5 %; Eosinophils % 1.4 %; HCT 38.4 % (36.0-46.0); Immature Grans % 0.4 %; Lymphocytes % 25.8 %; MCH 22.1 pg (27.0-33.0); MCHC 31.3 % (32.0-36.0); MCV 71 fL (80-95); Monocytes % 8.9 %; RBC 5.42 10^6/uL (3.93-5.22); RDW 16.2 % (11.7-14.6); RDW-SD 41.1 fL; WBC 9.34 10^3/uL (4.4-10.8)
[2024-05-01 23:22] LABS: Anion Gap 11.4 mmol/L (3-11); BUN 9 mg/dL (7-18); CO2 22.6 mmol/L (21.0-32.0); CREATININE 0.9 mg/dL (0.55-1.02); Calcium 9.2 mg/dL (8.5-10.1); Chloride 105 mmol/L (98-107); Estimated GFR 89.86 (mL/min/1.73m2); Glucose 202 mg/dL (74-106); Sodium 139 mmol/L (136-145); TSH (W/Ref FT4) 2.01 uIU/mL (0.36-3.74)
[2024-05-01 23:33] LABS: ETHANOL BLOOD < 3.0 mg/dL (<10)
[2024-05-01 23:39] LABS: Anisocytosis 1+; Diff Comment RBC Morph Reviewed; Platelet Count 267 10^3/uL (130-400)
[2024-05-01 23:40] LABS: Microcytosis 1+; Poikilocytes 1+
[2024-05-01 23:48] LABS: Salicylate < 2.8 mg/dL (<2.8)
[2024-05-01 23:51] LABS: Acetaminophen < 2 ug/mL (10-30)
[2024-05-01 23:55] VITALS: BP 166/86; PULSE 82; RESP 16; O2SAT 100
[2024-05-01 23:59] LABS: *AMPHETAMINES SCREEN URINE Negative (Negative); *BARBITURATES SCREEN URINE Negative (Negative); *BENZODIAZEPINES SCREEN URINE Negative (Negative); Cannabinoids THC Negative (Negative); Cocaine Screen,Urine Negative (Negative); METHADONE URINE SCREEN Negative (Negative); OPIATES URINE SCREEN Negative (Negative)
[2024-05-02] LABS: Tricyclic Antidepressants Negative (Negative)
--- NOTE | 2024-05-02 03:40 | ED.PROG_ITS ---
Date of service: 05/02/24 Time of Service: 06:40 Medical Decision Making Patient signed out to me pending inpatient psych admission. Her screening labs are unremarkable. X-ray of her foot negative. There is been no issues overnight. Mental health does need to be notified if she decides she wants to leave as there is concern regarding safety of others. She is signed out to [facility] day physician pending placement. Lab Data Lab results reviewed: Yes I reviewed the patient's lab results. Quality:SDOH Health Related Social Needs: Health related social needs inadequate housing Sign Out Sign Out Data: Sign Out Comment: 29-year-old female voluntary medically cleared with homicidal and suicidal ideation awaiting placement. Has been screened by mental health. Has home medications ordered. Regular diet ordered with safety tray. Heading to his own being. Last updated by Luis Armando Schmitz MD at 05/01/24 23:59 Discharge Plan Discharge Details Chief Complaint: PsychEval Clinical Impression: Depression with suicidal ideation, Pain of right great toe, Homicidal ideation Primary Care Provider: Niyah Serna ED Provider: Alejandro Sepulveda Villalba Meds and New Rx's Prescriptions: No Action melatonin 3 mg tablet 6 mg PO HS medroxyprogesterone 150 mg/mL syringe 150 mg IM [id number] Qty: 1 5RF meclizine 25 mg tablet 25 mg PO BID PRN (Reason: dizziness) Qty: 14 0RF labetalol 100 mg tablet 100 mg PO QAM Patient Comments: 1/2 Tab QAM Ozempic 0.25 mg or 0.5 mg (2 mg/3 mL) pen injector 0.25 mg subcut QWEEK Patient Comments: takes Qwednesdays Rx Instructions: for 4 weeks quetiapine 25 mg tablet 25 mg PO BID docusate sodium 100 mg capsule 100 mg PO DAILY pantoprazole 40 mg Tablet,Delayed Release (Dr/Ec) 40 mg PO QAM clonidine HCl 0.2 mg tablet 0.2 mg PO QHS metaxalone 800 mg tablet 800 mg PO TID PRNQty: 20 0RF (DME) lancets [OneTouch Delica Plus Lancet] 33 gauge misc MISCELLANEOUS Patient Comments: TEST BLOOD SUGAR ONCE DAILY ondansetron 4 mg tablet,disintegrating 4 mg PO Q8H PRN (Reason: nausea and vomiting) Qty: 14 0RF
[2024-05-02] MEDS: Labetalol 100 MG TAB PO (08:31)
[2024-05-02] MEDS: Pantoprazole 40 MG TABCR PO (08:32)
[2024-05-02] MEDS: QUEtiapine 25 MG TAB PO (08:32)
--- NOTE | 2024-05-02 08:54 | PDOC.CMSAFE ---
Date of service: 05/02/24 Time of Service: 08:54 Care Management Safety Plan Status Status: Voluntary Reason for Wait Reason for Wait: Inpatient Admission Safety Plan Safety Plan: VOLUNTARY FOR INPATIENT PSYCHIATRIC STABILIZATION.? Patient is appropriate in all interactions since arriving at [facility]; Pt has demonstrated appropriate coping and communication skills, has articulated his or her needs and concerns and is fully engaged during staff interactions. Safety plan has been established with patient, and care team, to adhere to patient goals, identify restrictions based on behavioral status, address nutrition, and determine allowed personal belongings, tools for hygiene and personal care. Determine level of activity including ambulation, level of supervision, visitors, and determine privileges based on behaviors and level of engagement by pt. SAFETY PLAN: 1. Will remain on suicide precautions, in paper clothes 2. Will remain in Zone B under direct supervision of one-on-one staff at all times provided by [employer]; VIGNESH, CORRECTIONAL MANAGER lab support technician. 3. May have paper cups, plates, finger foods as well as a cardboard spoon with which to eat meals. 4. Follow [facility] Management of the Admitted Behavioral Health Patient policy. 5. Shower available in Zone B without restriction. 6. Personal belongings-soft items permitted at RN discretion. 7. Visitors-none at this time. 8. Activities: soft cart items approved per RN discretion. 9.? Bathroom available in Zone B without restriction. 10. Phone: limited to [facility] cordless phone at RN discretion. Due to VOLUNTARY status, if patient wishes to leave [facility], staff will contact [facility] Crisis Screener ([phone]) and On-Call Manager Program ([phone]) as soon as possible. In the event of elopement, notify [facility] Police ([phone]). Patient is currently voluntarily at [facility] and seeking inpatient admission when a bed becomes available. [facility] Frontline Special Tester will continue seeking placement. Please contact the Heel Compressor Manager Program ([phone]) and [facility] Special Tester ([phone]) for any needed changes in the Safety Plan. Safety plan has been provided to interdepartmental care team.
--- NOTE | 2024-05-02 09:43 | NUR.NOTE ---
Nursing Note: [facility] called and Declined the request for this pT .
--- NOTE | 2024-05-02 10:01 | W.EDPROG ---
Date of service: 05/02/24 Time of Service: 12:17 Medical Decision Making Care assumed from off going provider. Patient is 29-year-old presenting with homicidal ideation. She is pending voluntary psychiatric admission. At this time she is medically cleared 1200 Accepted at [facility], by Dr. Cleaning. Ca completed. At this time the patient is declining transportation to [place]. She states that she feels fine and would like to go home. She states that her parents also think that she feels fine and would like to go home. I have had a lengthy discussion with the patient as well as her parents. There seems to be a significant amount of maladaptive behavior and manipulative behavior on the patient's part and not true suicidal or homicidal ideations. I feel like the parents have a reasonable understanding of the patient and feel safe with her going home. I have updated [facility] on these developments. 1450 patient re-evaluated by [facility] and safety plan has been established. The patient will be discharged. Medical Records Medical records reviewed: Yes I reviewed the patient's medical records. Lab Data Lab results reviewed: Yes I reviewed the patient's lab results. Quality:[facility] Health Related Social Needs: Health related social needs inadequate housing Sign Out Sign Out Data: Sign Out Comment: 29-year-old female voluntary medically cleared with homicidal and suicidal ideation awaiting placement. Has been screened by mental health. Has home medications ordered. Regular diet ordered with safety tray. Heading to his own being. Last updated by Luis Armando Schmitz MD at 05/01/24 23:59 Sign Out Comment: Patient being held for voluntary inpatient psychiatric admission. No issues overnight. Mental health wants to be evaluated if she changes her mind and wants to leave as they will consider filing an EE. Last updated by Alejandro Sepulveda MD at 05/02/24 07:25 Discharge Plan Disposition Patient Disposition: Home Condition: Stable Discharge Details Clinical Impression: Depression with suicidal ideation, Pain of right great toe, Homicidal ideation Primary Care Provider: Niyah Serna ED Provider: Anil Ferrer Home Meds and New Rx's Prescriptions: No Action melatonin 3 mg tablet 6 mg PO HS medroxyprogesterone 150 mg/mL syringe 150 mg IM [id number] Qty: 1 5RF meclizine 25 mg tablet 25 mg PO BID PRN (Reason: dizziness) Qty: 14 0RF labetalol 100 mg tablet 100 mg PO QAM Patient Comments: 1/2 Tab QAM Ozempic 0.25 mg or 0.5 mg (2 mg/3 mL) pen injector 0.25 mg subcut QWEEK Patient Comments: takes Qwednesdays Rx Instructions: for 4 weeks quetiapine 25 mg tablet 25 mg PO BID docusate sodium 100 mg capsule 100 mg PO DAILY pantoprazole 40 mg Tablet,Delayed Release (Dr/Ec) 40 mg PO QAM clonidine HCl 0.2 mg tablet 0.2 mg PO QHS metaxalone 800 mg tablet 800 mg PO TID PRNQty: 20 0RF (DME) lancets [OneTouch Delica Plus Lancet] 33 gauge misc MISCELLANEOUS Patient Comments: TEST BLOOD SUGAR ONCE DAILY ondansetron 4 mg tablet,disintegrating 4 mg PO Q8H PRN (Reason: nausea and vomiting) Qty: 14 0RF Discharge Instructions Additional Instructions: please follow safety plan
[2024-05-02] MEDS: Docusate Sodium 100 MG CAP PO (11:03)
[2024-05-02] MEDS: OLANZapine 10 MG TAB PO (11:45)
[2024-05-02 12:20] VITALS: BP 142/85; PULSE 95; RESP 16; TEMP 36.9; O2SAT 99
[2024-05-02] MEDS: Acetaminophen 500 MG TAB 1000 MG PO (14:05)
--- NOTE | 2024-05-03 07:31 | NUR.NOTE ---
Nursing Note: assessed pT chart to provide state of [place] mental health a discharge time.
== END 2024-05-02 14:59 | disposition home or self-care (01) ==
PROVIDERS: Emergency Medicine; Emergency Provider Emergency Medicine; PCP Nurse Practitioner Family
DX: R45.850 Homicidal ideations (principal); R45.851 Suicidal ideations; F32.A Depression, unspecified; M79.674 Pain in right toe(s)
CPT/HCPCS: 00123; 36416; 80048; 80307; 82962; 99285; 73630; 80320; 80329; 84443; 84703; 85025; 99283

== ENCOUNTER 2024-05-11 20:28 | Emergency (ER) | payer MEDICAID, SELFPAY ==
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
[2024-05-11 20:53] VITALS: BP 148/108; PULSE 95; RESP 20; O2SAT 95
--- NOTE | 2024-05-11 22:27 | W.EDPROG ---
Date of service: 05/11/24 Time of Service: 22:27 Medical Decision Making This patient was signed out to me. Please see previous notes for H&P and initial eval. In brief, 29yo F with hx bipolar, borderline, presenting for SI. Voluntary, medically cleared, pending placement. Overnight no acute events. Home meds ordered. Will be signed out to oncoming physician, plan remains as above. Quality:SDOH Health Related Social Needs: Health related social needs inadequate housing Sign Out Sign Out Data: Sign Out Comment: Vol, await placement. 08/16 suicidality subjectively, no medical complaints. Last updated by Douglas Keith PA at 05/11/24 22:16 Discharge Plan Disposition Condition: Stable Discharge Details Chief Complaint: PsychEval Clinical Impression: Suicidal ideation Primary Care Provider: Niyah Serna ED Provider: Eliane Rollins Home Meds and New Rx's Prescriptions: No Action melatonin 3 mg tablet 6 mg PO HS medroxyprogesterone 150 mg/mL syringe 150 mg IM [id number] Qty: 1 5RF labetalol 100 mg tablet 100 mg PO QAM Patient Comments: 1/2 Tab QAM Ozempic 0.25 mg or 0.5 mg (2 mg/3 mL) pen injector 0.25 mg subcut QWEEK Patient Comments: takes Qthursdays Rx Instructions: for 4 weeks quetiapine 25 mg tablet 25 mg PO BID docusate sodium 100 mg capsule 100 mg PO DAILY pantoprazole 40 mg Tablet,Delayed Release (Dr/Ec) 40 mg PO QAM clonidine HCl 0.2 mg tablet 0.2 mg PO QHS cholecalciferol (vitamin D3) 50 mcg (2,000 unit) capsule 50 mcg PO DAILY buspirone 7.5 mg tablet 7.5 mg PO BID (DME) lancets [OneTouch Delica Plus Lancet] 33 gauge misc MISCELLANEOUS Patient Comments: TEST BLOOD SUGAR ONCE DAILY ondansetron 4 mg tablet,disintegrating 4 mg PO Q8H PRN (Reason: nausea and vomiting) Qty: 14 0RF Discharge Instructions Instructions: Suicide Prevention
[2024-05-11] MEDS: Naproxen 500 MG TAB PO (23:32)
[2024-05-12] MEDS: Pantoprazole 40 MG TABCR PO (08:21)
[2024-05-12] MEDS: Labetalol 100 MG TAB 50 MG PO (08:21)
[2024-05-12] MEDS: Docusate Sodium 100 MG CAP PO (08:21)
[2024-05-12] MEDS: Cholecalciferol (Vitamin D3) 1,000 UNIT TAB 2000 UNITS PO (08:21)
[2024-05-12] MEDS: QUEtiapine 25 MG TAB PO (08:22)
[2024-05-12 08:30] VITALS: BP 139/84; PULSE 98; RESP 18; TEMP 36.4; O2SAT 95
[2024-05-12] MEDS: busPIRone 5 MG TAB 7.5 MG PO (08:48)
--- NOTE | 2024-05-12 08:58 | NUR.NOTE ---
[facility] called and stated that they are declining the patient. Nursing Note:
--- NOTE | 2024-05-12 12:24 | W.EDPROG ---
Date of service: 05/12/24 Time of Service: 12:26 Medical Decision Making Patient was seen and assessed by mental health. She is no longer having any suicidal ideations. She feels well and would like to go home. Safety plan was created, she contracted for the safety plan with [facility] staff. Patient feels stable to go home. Family is here. Patient will be discharged. Discussed red flags for which to return. I have extensively reviewed the treatment plan and discharge instructions with the patient. I have addressed all patient concerns at this time. The patient was made aware of what symptoms to monitor for that would warrant a return to the emergency department. Discussed the plan with the patient, they demonstrate verbal understanding and agreement with our assessment and plan at this time. The documentation in this chart was dictated using Redapt dictation software. Please excuse any dictation errors. Quality:SDOH Health Related Social Needs: Health related social needs inadequate housing Sign Out Sign Out Data: Sign Out Comment: Vol, await placement. 08/16 suicidality subjectively, no medical complaints. Last updated by Douglas Keith PA at 05/11/24 22:16 Sign Out Comment: SI, voluntary, medically cleared & home meds ordered. Pending placement. Last updated by Eliane Rollins MD at 05/12/24 05:54 Discharge Plan Disposition Patient Disposition: Home Condition: Stable Discharge Details Chief Complaint: PsychEval Clinical Impression: Suicidal ideation Primary Care Provider: Niyah Serna ED Provider: Douglas Gamez Home Meds and New Rx's Prescriptions: No Action melatonin 3 mg tablet 6 mg PO HS medroxyprogesterone 150 mg/mL syringe 150 mg IM [id number] Qty: 1 5RF labetalol 100 mg tablet 100 mg PO QAM Patient Comments: 1/2 Tab QAM Ozempic 0.25 mg or 0.5 mg (2 mg/3 mL) pen injector 0.25 mg subcut QWEEK Patient Comments: takes Qthursdays Rx Instructions: for 4 weeks quetiapine 25 mg tablet 25 mg PO BID docusate sodium 100 mg capsule 100 mg PO DAILY pantoprazole 40 mg Tablet,Delayed Release (Dr/Ec) 40 mg PO QAM clonidine HCl 0.2 mg tablet 0.2 mg PO QHS cholecalciferol (vitamin D3) 50 mcg (2,000 unit) capsule 50 mcg PO DAILY buspirone 7.5 mg tablet 7.5 mg PO BID (DME) lancets [OneTouch Delica Plus Lancet] 33 gauge misc MISCELLANEOUS Patient Comments: TEST BLOOD SUGAR ONCE DAILY ondansetron 4 mg tablet,disintegrating 4 mg PO Q8H PRN (Reason: nausea and vomiting) Qty: 14 0RF Discharge Instructions Instructions: Suicide Prevention Additional Instructions: Please abide by the safety plan that you have contracted with. Please continue to utilize your outpatient mental health resources. If you notice any worsening of your symptoms, or any new symptoms such as vomiting, diarrhea, fever, chills, shortness of breath, chest pain, numbness, weakness, or fainting , please return immediately to the emergency department for reevaluation. Please follow up with your primary care provider as soon as possible for reassessment and reevaluation. As always, it was a pleasure participating in your medical care today. Referrals: Niyah Serna [Primary Care Provider] -
== END 2024-05-12 12:49 | disposition home or self-care (01) ==
PROVIDERS: Emergency Provider Student in an Organized Health Care Education/Training Program; PCP Nurse Practitioner Family
DX: F32.A Depression, unspecified (principal); R45.851 Suicidal ideations
CPT/HCPCS: 00123; 36416; 82962; 99285; 99283

== ENCOUNTER 2024-05-24 19:35 | Emergency (ER) | payer MEDICAID, SELFPAY ==
[2024-05-24 19:37] VITALS: BP 168/85; PULSE 104; RESP 16; TEMP 36.6; O2SAT 98
[2024-05-24 19:59] LABS: BE (Venous) -2 mmol/L (-2-3); HCO3 (Venous) 23 mmol/L (23-28); O2 Sat (Venous) 93 %; TCO2 (Venous) 21 mmol/L (24-29); pCO2 (Venous) 36 mmHg (41-51); pH (Venous) 7.41 (7.31-7.41); pO2 (Venous) 63 mmHg
[2024-05-24 20:00] LABS: Abs Immature Grans 0.02 10^3/uL (0.0-0.06); Absolute Basophil Count 0.05 10^3/uL (0.0-0.2); Absolute Eosinophil Count 0.12 10^3/uL (0.0-0.7); Absolute Lymphocyte Count 2.08 10^3/uL (1.2-3.4); Absolute Monocyte Count 0.79 10^3/uL (0.1-0.8); Absolute Neutrophil Count 7.22 10^3/uL (1.2-6.7); Basophils % 0.5 %; Eosinophils % 1.2 %; HCT 38.4 % (36.0-46.0); HGB 12.3 g/dL (11.2-15.7); Immature Grans % 0.2 %; Lactate 1.1 mmol/L (0.6-1.4); Lymphocytes % 20.2 %; MCH 22.6 pg (27.0-33.0); MCV 71 fL (80-95); Monocytes % 7.7 %; Neutrophils % 70.2 %; RBC 5.45 10^6/uL (3.93-5.22); RDW 15.9 % (11.7-14.6); RDW-SD 39.5 fL; WBC 10.28 10^3/uL (4.4-10.8)
--- NOTE | 2024-05-24 20:00 | RT.EKG_ITS ---
APPROVED REPORT Exam: Resting ECG Reason for Exam: syncopal episode Patient Location: E HR:89 bpm ECG Measurements Heart Rate [address] 141 P 31 QRSd 90 QRS 28 QT 344 T 6 QTc 418 Conclusion Sinus rhythm...normal P axis, V-rate 60- 99
--- NOTE | 2024-05-24 20:06 | W.ED.GENAD ---
Discharge Plan Disposition Patient Disposition: Home Discharge Details Clinical Impression: Constipation Primary Care Provider: Niyah Serna ED Provider: Tram Deleon Home Meds and New Rx's Prescriptions: New polyethylene glycol 3350 [Miralax] 17 gram/dose powder 17 g PO DAILY Qty: 119 0RF Continued melatonin 3 mg tablet 6 mg PO HS medroxyprogesterone 150 mg/mL syringe 150 mg IM [id number] Qty: 1 5RF labetalol 100 mg tablet 100 mg PO QAM Patient Comments: 1/2 Tab QAM Ozempic 0.25 mg or 0.5 mg (2 mg/3 mL) pen injector 0.25 mg subcut QWEEK Patient Comments: takes Qthursdays Rx Instructions: for 4 weeks quetiapine 25 mg tablet 25 mg PO BID docusate sodium 100 mg capsule 100 mg PO DAILY pantoprazole 40 mg Tablet,Delayed Release (Dr/Ec) 40 mg PO QAM clonidine HCl 0.2 mg tablet 0.2 mg PO QHS cholecalciferol (vitamin D3) 50 mcg (2,000 unit) capsule 50 mcg PO DAILY buspirone 7.5 mg tablet 7.5 mg PO BID (DME) lancets [OneTouch Delica Plus Lancet] 33 gauge misc MISCELLANEOUS Patient Comments: TEST BLOOD SUGAR ONCE DAILY ondansetron 4 mg tablet,disintegrating 4 mg PO Q8H PRN (Reason: nausea and vomiting) Qty: 14 0RF Discharge Instructions Additional Instructions: Please follow-up with your primary care provider next week for reassessment and to discuss today's emergency department visit. Your labs today were all reassuring. There is no sign of urinary tract infection. Your abdominal pain is most likely due to constipation. Please use the MiraLAX daily as prescribed. Also try to increase your consumption of fresh fruits and vegetables, as these contain fiber. Stay well-hydrated, drinking plenty of electrolyte rich fluids like Gatorlyte zero. Return to emergency care if you develop uncontrollable vomiting, high fevers, severe abdominal pain that has changed, blood in your stool, or if you are very worried and need to be rechecked again immediately. Referrals: Niyah Serna [Primary Care Provider] - HPI General Date/Time Provider Initiated Documentation: 05/24/24 19:37. HPI Narrative: Shannon is a 29-year-old female with history of T2DM, HTN, CKD stage I, and depression who presents to the emergency department for evaluation of ongoing suprapubic pain, lower back pain x 3 weeks. She reports that it is a sharp pain, has been increasing in intensity since it started. No identifiable aggravating or alleviating factors. She reports this is accompanied by burning while urinating. Today she reports a mild frontal headache; no associated vision changes. Reports that she had an episode of blacking out today, says she was standing talking to her friend and woke up to her friend screaming for her. No associated symptoms with this episode. No head injury. She denies associated fever/chills, cough, congestion, sore throat, chest pain, shortness of breath, vomiting,. She has had constipation, says that she had a normal bowel movement this morning but none earlier in the week. No blood in stool. She says that she has been drinking more water than usual, 24 bottles of water today; says she is worried because she is only urinated once. She takes Ozempic weekly, no other medications for diabetes. Occasionally checks her blood sugars, says it has been in the 200s, but that it should be around 100. She denies unusual vaginal discharge, says she has not been sexually active in the last 3 months. Physical exam reassuring. Patient is alert and oriented, no acute distress. Slightly tacky mucous membranes. Easy work of breathing, lung sounds clear bilaterally. Normal heart sounds. Abdomen soft, nondistended, mild tenderness to palpation of suprapubic area, no guarding or rigidity. No CVA tenderness. Moving all extremities equally DDx includes but not limited to: Pyelonephritis, cystitis, constipation, dehydration, DKA/HHS, electrolyte imbalance, cardiac arrhythmia, anxiety. Low suspicion for STIs, as pt is not currently sexually active. I independently interpreted the following tests: EKG reassuring, normal sinus rhythm rate 89, no changes consistent with acute ischemia. CBC, CMP, VBG, lipase all reassuring. A1c 7.4. UA notable for 500 glucose and SG >1.030. No red flags concerning for acute abdomen requiring emergent diagnostic imaging at this time. While in the emergency department Shannon received Tylenol for discomfort and a dose of MiraLAX. She was able to drink gingerale without difficulty in the ED prior to departure. Overall workup very reassuring, likely constipation as cause of abdominal pain. I did discuss with Padmini her constipation, she says that she has been constipated for a number of weeks now. She says that she was told to take MiraLAX, but has not been able to afford it [id number]. She is requesting a prescription to be sent to [facility]. Recommend follow-up with PCP as scheduled, she says that she was able to have an appointment today but has been pushing next week. Reviewed red flags indicating need for return to emergency care. She is agreeable to plan of care. Related Data Home Medications ?Medication ?Instructions ?Recorded ?Confirmed labetalol 100 mg tablet 100 mg PO QAM 09/25/21 05/24/24 melatonin 3 mg tablet 6 mg PO HS 09/25/21 05/24/24 pantoprazole 40 mg tablet,delayed 40 mg PO QAM 11/22/22 05/24/24 release clonidine HCl 0.2 mg tablet 0.2 mg PO QHS 02/15/23 05/24/24 docusate sodium 100 mg capsule 100 mg PO DAILY 03/24/23 05/24/24 quetiapine 25 mg tablet 25 mg PO BID 03/24/23 05/24/24 semaglutide 0.25 mg or 0.5 mg (2 0.25 mg subcut QWEEK 08/11/23 05/24/24 mg/3 mL) subcutaneous pen injector (Ozempic) medroxyprogesterone 150 mg/mL 150 mg IM [id number] #1 mL 11/14/23 05/24/24 intramuscular syringe lancets 33 gauge (OneTouch Delica 04/17/24 05/24/24 Plus Lancet) ondansetron 4 mg disintegrating 4 mg PO Q8H PRN nausea and 04/17/24 05/24/24 tablet vomiting #14 tabs buspirone 7.5 mg tablet 7.5 mg PO BID 05/11/24 05/24/24 cholecalciferol (vitamin D3) 50 50 mcg PO DAILY 05/11/24 05/24/24 mcg (2,000 unit) capsule polyethylene glycol 3350 17 17 g PO DAILY #119 grams 05/24/24 gram/dose oral powder (Miralax) Previous Rx's ?Medication ?Instructions ?Recorded medroxyprogesterone 150 mg/mL 150 mg IM [id number] #1 mL 11/14/23 intramuscular syringe ondansetron 4 mg disintegrating 4 mg PO Q8H PRN nausea and 04/17/24 tablet vomiting #14 tabs polyethylene glycol 3350 17 17 g PO DAILY #119 grams 05/24/24 gram/dose oral powder (Miralax) Allergies Allergy/AdvReac Type Severity Reaction Status Date / Time fluticasone (From Flovent Allergy Severe unknown Verified 05/24/24 19:40 HFA) lisinopril Allergy Intermediate unknown Verified 05/24/24 19:40 paroxetine HCl (From Paxil) Allergy Intermediate Hives Verified 05/24/24 19:40 risperidone (From Risperdal) Allergy Intermediate Hives Verified 05/24/24 19:40 NSAIDS (Non-Steroidal Allergy Due to Verified 05/24/24 19:40 Anti-Inflamma prior kidney damage fluoxetine AdvReac Intermediate Vomiting,di Verified 05/24/24 19:40 arrhea ibuprofen AdvReac Intermediate vomiting Verified 05/24/24 19:40 naproxen (From Aleve) AdvReac Intermediate vomiting Verified 05/24/24 19:40 sertraline AdvReac Intermediate WEIRD Verified 05/24/24 19:40 FEELING OVER MY BODY acetaminophen AdvReac Nausea Unverified 05/24/24 19:40 amoxicillin AdvReac Nausea Verified 05/24/24 19:40 seafood Allergy Intermediate unknown Uncoded 05/24/24 19:40 enviornmental Allergy Mild sneezing Uncoded 05/24/24 19:40 dark sodas AdvReac Severe BAD FOR Uncoded 05/24/24 19:40 MY KIDNEYS General Stated Complaint: Abd Prob MARY KAY: 3 Review of Systems Narrative: see HPI Exam Const General: cooperative, healthy appearing, comfortable, no acute distress and well developed Nutritional Appearance: overweight HENMT Ears: hearing grossly normal bilaterally Face and sinus: dry mucous membranes (slightly tacky) Resp Effort & Inspection: normal respiratory effort and able to speak in complete sentences Auscultation: clear to auscultation bilaterally Cardio Rate: regular rate Rhythm: regular rhythm GI Inspection: normal to inspection and non-distended Palpation: soft, not firm, no guarding and tender (mild surapubic) Auscultation: normal bowel sounds Extrem General: normal to inspection and no pedal edema Course Vital Signs Vital signs: Vital Signs Temperature 36.6 C 05/24/24 19:37 Pulse 104 H 05/24/24 19:37 Respiratory Rate 16 05/24/24 19:37 Blood Pressure 168/85 H 05/24/24 19:37 Pulse Oximetry 98 05/24/24 19:37 Temperature 36.6 C 05/24/24 19:37 Pulse 104 H 05/24/24 19:37 Respiratory Rate 16 05/24/24 19:37 Respiratory Effort Normal 05/24/24 19:41 Blood Pressure 168/85 H 05/24/24 19:37 Pulse Oximetry 98 05/24/24 19:37 Oxygen Delivery Method Room Air 05/24/24 19:37 Oxygen Flow Rate 0 05/24/24 19:37 Pain Level 10 05/24/24 19:37 Lab/Test Results Lab/Test Results: Laboratory Tests Range/Units 05/24/24 19:51 VBG pH (7.31-7.41) 7.41 VBG pCO2 (41-51) mmHg 36 L VBG pO2 mmHg 63 VBG HCO3 (23-28) mmol/L 23 VBG Total CO2 (24-29) mmol/L 21 L VBG O2 Saturation % 93 VBG Base Excess (-2-3) mmol/L -2 VBG Lactate (0.6-1.4) mmol/L 1.1 Medical Decision Making Quality:SDOH Health Related Social Needs: Health related social needs inadequate housing PFSH All Active Problems (Updated 05/24/24 @ 20:37 by Tram Landeros) Constipation (Acute) Suicidal ideation (Acute) Homicidal ideation (Acute) Pain of right great toe (Acute) Depression with suicidal ideation (Acute) Breakthrough bleeding on depo provera (Acute) Encounter for Depo-Provera contraception (Acute) Since 2017. Nicotine dependence (Acute) Contraception, generic surveillance (Acute) Hx of OCPs, Nexplanon, DepoProvera. 02/2023 Norethindrone 0.35mg till 05/2023. Resumed DepoProvera. 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 Hypertrophy of tonsils and adenoids Suicidal ideation Bipolar 2 disorder RBC microcytosis Vitamin D deficiency Steatosis of liver Back pain Dysuria Abdominal pain History of allergic reaction Hemolytic uremic syndrome PTSD (post-traumatic stress disorder) Mesenteric lymphadenitis Drug abuse, episodic use SASHA (stress urinary incontinence, female) Pain, dental Blood in stool History of mastoiditis Jaw pain TMJ tenderness, left Otalgia, right ear BMI 40.0-44.9, adult Overactive bladder (02/09/18) Generalized headaches (12/31/16) Depression (12/31/16) Depo-Provera contraceptive status (09/13/17) Depo-Provera contraception since 08/11/2017. Patient is using the Depo-Provera for menstrual cycle control. ADHD (attention deficit hyperactivity disorder) (12/31/16) Surgical History History of colonoscopy (~06/2022) Hx of tooth extraction History of kidney surgery Social History Smoking/Tobacco Use Status: Never Second Hand Exposure: No Smoking risk assessment performed?: Yes Alcohol Intake: former Drug use: Current Sobriety Substance use type: does not use Caregiver/Support person: Yes Housing: apartment Sexually active: Yes (female partner only now(May 2022). 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
[2024-05-24] MEDS: Acetaminophen 325 MG TAB 650 MG PO (20:09)
[2024-05-24 20:16] LABS: ALT 28 U/L (14-59); AST 9 U/L (15-37); Albumin 3.8 g/dL (3.4-5.0); Alkaline Phosphatase 109 U/L (46-116); Anion Gap 10.5 mmol/L (3-11); BUN 7 mg/dL (7-18); Bilirubin, Total 0.31 mg/dL (0.2-1.0); CO2 23.5 mmol/L (21.0-32.0); CREATININE 0.8 mg/dL (0.55-1.02); Chloride 105 mmol/L (98-107); Glucose 196 mg/dL (74-106); Lipase 32 U/L (16-77); Potassium 3.5 mmol/L (3.5-5.1); Sodium 139 mmol/L (136-145); Total Protein 7.6 g/dL (6.4-8.2)
[2024-05-24 20:19] LABS: Bilirubin Negative (Negative); Blood Negative (Negative); Clarity Clear (Clear); Glucose 500 mg/dL (Negative); Ketones Negative (Negative); Leukocyte Esterase Negative (Negative); Nitrite Negative (Negative); Specific Gravity >= 1.030 (1.005-1.025); Urobilinogen 0.2 mg/dL (Up to 0.2)
[2024-05-24 20:22] LABS: Hemoglobin A1C 7.4 % (<5.7)
[2024-05-24 20:23] LABS: Platelet Count 257 10^3/uL (130-400)
[2024-05-24 20:24] LABS: Diff Comment RBC Morph Reviewed; Microcytosis 2+
[2024-05-24 20:31] LABS: Bacteria Rare HPF (Negative); C & S Indicated? No; Casts Negative LPF (Negative); Crystals Negative HPF (Negative); Epithelial Cells Rare HPF (Negative); Mucus Negative (Negative); RBC 0-2 HPF (0-2); WBC 0-2 HPF (0-5)
[2024-05-24] MEDS: Polyethylene Glycol 3350 17 GM PACKET 34 GM PO (20:49)
--- NOTE | 2024-05-24 22:33 | NUR.NOTE ---
Referral faxed to [facility] Niyah Serna to f/u next week for abd pain.Nursing Note:
== END 2024-05-24 20:51 | disposition home or self-care (01) ==
PROVIDERS: Emergency Provider Nurse Practitioner Family; PCP Nurse Practitioner Family
DX: K59.00 Constipation, unspecified (principal); E11.9 Type 2 diabetes mellitus without complications; I12.9 Hypertensive chronic kidney disease with stage 1 through stage 4 chronic kidney disease, or unspecified chronic kidney disease; N18.1 Chronic kidney disease, stage 1
CPT/HCPCS: 36415; 80053; 81025; 82805; 82962; 83690; 93005; 99284; 81003; 81015; 83036; 83605; 85025; 93010; 99283

== ENCOUNTER 2024-06-05 18:20 | Emergency (ER) | payer MEDICAID, SELFPAY ==
[2024-06-05 18:27] VITALS: BP 161/108; PULSE 109; RESP 18; TEMP 37; O2SAT 97
--- NOTE | 2024-06-05 19:12 | W.ED.GENAD ---
Discharge Plan Disposition Patient Disposition: Home Discharge Details Clinical Impression: Yeast infection, Dysuria Primary Care Provider: Niyah Serna ED Provider: Tram Deleon Home Meds and New Rx's Prescriptions: Continued melatonin 3 mg tablet 6 mg PO HS medroxyprogesterone 150 mg/mL syringe 150 mg IM [id number] Qty: 1 5RF labetalol 100 mg tablet 100 mg PO QAM Patient Comments: 1/2 Tab QAM Ozempic 0.25 mg or 0.5 mg (2 mg/3 mL) pen injector 0.25 mg subcut QWEEK Patient Comments: takes Qthursdays Rx Instructions: for 4 weeks quetiapine 25 mg tablet 25 mg PO BID docusate sodium 100 mg capsule 100 mg PO DAILY pantoprazole 40 mg Tablet,Delayed Release (Dr/Ec) 40 mg PO QAM clonidine HCl 0.2 mg tablet 0.2 mg PO QHS cholecalciferol (vitamin D3) 50 mcg (2,000 unit) capsule 50 mcg PO DAILY buspirone 7.5 mg tablet 7.5 mg PO BID (DME) lancets [OneTouch Delica Plus Lancet] 33 gauge misc MISCELLANEOUS Patient Comments: TEST BLOOD SUGAR ONCE DAILY ondansetron 4 mg tablet,disintegrating 4 mg PO Q8H PRN (Reason: nausea and vomiting) Qty: 14 0RF polyethylene glycol 3350 [Miralax] 17 gram/dose powder 17 g PO DAILY Qty: 119 0RF Discharge Instructions Additional Instructions: Please call [facility] to schedule follow-up appointment with your primary care provider for recheck of your symptoms. There is no sign of UTI on urine sample today. You are being treated for yeast infection. Return to emergency care for develop new fever/chills, uncontrollable vomiting, inability to urinate, severe abdominal pain, or if you are very worried and need to be rechecked again immediately Referrals: Niyah Serna [Primary Care Provider] - HPI General Date/Time Provider Initiated Documentation: 06/05/24 18:30. HPI Narrative: Shannon is a 29-year-old female presents emergency department today for evaluation of dysuria with whitish smelly vaginal discharge. She reports this is been ongoing for about 2 weeks. She does have a history of UTIs and yeast infections usually occurring in the summer. She does report some lower abdominal discomfort as well, no change in p.o. intake, nausea/vomiting, fever/chills, or change in bowel function. She does have burning with urination, and feels that she has inability to fully control her bladder due to the urgency. She is not sexually active, last intercourse 1 year ago. She has T2DM, on Ozempic. Blood sugar this morning was 130. Physical exam very reassuring. Patient is alert and oriented, no acute distress. Abdomen is soft, nondistended, nontender to palpation. History and presentation was consistent with UTI and yeast infection. No red flags concerning for pyelonephritis or other acute abdominal pathology indicating need for emergent diagnostic imaging or blood work at this time. I independently interpreted the following tests: UA reassuring, consistent with dehydration with specific gravity greater than 1.030 with ketones and glucose. 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 She says that symptoms are similar to previous yeast infection she has had in the past, attributes this to the heat. As I am prescribing patient Diflucan, EKG reviewed, patient does not have a history of QT prolongation. Last QTc 418 on 09/24/2024. Reviewed discharge instructions with patient. Will treat for vulvovaginal candidiasis with Diflucan 150 mg x 1 here in department. Reviewed discharge instructions with patient and her caregiver, including indications for return to care and importance of follow-up with PCP. They are agreeable with plan of care. Related Data Home Medications ?Medication ?Instructions ?Recorded ?Confirmed labetalol 100 mg tablet 100 mg PO QAM 09/25/21 06/05/24 melatonin 3 mg tablet 6 mg PO HS 09/25/21 06/05/24 pantoprazole 40 mg tablet,delayed 40 mg PO QAM 11/22/22 06/05/24 release clonidine HCl 0.2 mg tablet 0.2 mg PO QHS 02/15/23 06/05/24 docusate sodium 100 mg capsule 100 mg PO DAILY 03/24/23 06/05/24 quetiapine 25 mg tablet 25 mg PO BID 03/24/23 06/05/24 semaglutide 0.25 mg or 0.5 mg (2 0.25 mg subcut QWEEK 08/11/23 06/05/24 mg/3 mL) subcutaneous pen injector (Good Egg[employer]mp[employer]collage) medroxyprogesterone 150 mg/mL 150 mg IM [id number] #1 mL 11/14/23 06/05/24 intramuscular syringe lancets 33 gauge (MaiaMarcellusuch Deltorrey 04/17/24 05/24/24 Plus Lancet) ondansetron 4 mg disintegrating 4 mg PO Q8H PRN nausea and 04/17/24 06/05/24 tablet vomiting #14 tabs buspirone 7.5 mg tablet 7.5 mg PO BID 05/11/24 06/05/24 cholecalciferol (vitamin D3) 50 50 mcg PO DAILY 05/11/24 06/05/24 mcg (2,000 unit) capsule polyethylene glycol 3350 17 17 g PO DAILY #119 grams 05/24/24 06/05/24 gram/dose oral powder (Miralax) Previous Rx's ?Medication ?Instructions ?Recorded medroxyprogesterone 150 mg/mL 150 mg IM [id number] #1 mL 11/14/23 intramuscular syringe ondansetron 4 mg disintegrating 4 mg PO Q8H PRN nausea and 04/17/24 tablet vomiting #14 tabs polyethylene glycol 3350 17 17 g PO DAILY #119 grams 05/24/24 gram/dose oral powder (Miralax) Allergies Allergy/AdvReac Type Severity Reaction Status Date / Time fluticasone (From Flovent Allergy Severe unknown Verified 06/05/24 19:11 HFA) lisinopril Allergy Intermediate unknown Verified 06/05/24 19:11 paroxetine HCl (From Paxil) Allergy Intermediate Hives Verified 06/05/24 19:11 risperidone (From Risperdal) Allergy Intermediate Hives Verified 06/05/24 19:11 NSAIDS (Non-Steroidal Allergy Due to Verified 06/05/24 19:11 Anti-Inflamma prior kidney damage fluoxetine AdvReac Intermediate Vomiting,di Verified 06/05/24 19:11 arrhea ibuprofen AdvReac Intermediate vomiting Verified 06/05/24 19:11 naproxen (From Aleve) AdvReac Intermediate vomiting Verified 06/05/24 19:11 sertraline AdvReac Intermediate WEIRD Verified 06/05/24 19:11 FEELING OVER MY BODY acetaminophen AdvReac Nausea Unverified 06/05/24 19:11 amoxicillin AdvReac Nausea Verified 06/05/24 19:11 seafood Allergy Intermediate unknown Uncoded 06/05/24 19:11 enviornmental Allergy Mild sneezing Uncoded 06/05/24 19:11 dark sodas AdvReac Severe BAD FOR Uncoded 06/05/24 19:11 MY KIDNEYS General Stated Complaint: [employer] MARY KAY: 3 Review of Systems Narrative: see HPI Exam Const General: cooperative, healthy appearing, comfortable, no acute distress and well developed Nutritional Appearance: average body habitus Resp Effort & Inspection: normal respiratory effort and able to speak in complete sentences Auscultation: clear to auscultation bilaterally Cardio Rate: regular rate Rhythm: regular rhythm GI Inspection: normal to inspection and non-distended Palpation: soft, not firm, not rigid and nontender Back/Spine/Pelvis Back: no CVA tenderness Skin Lesions: no lesions Rashes: no rashes Extrem Right upper extremity: normal to inspection and hand (Faint erythema and tenderness noted to palmar fingertips of right hand) Details: normal capillary refill, neuromotor exam normal, neurosensory exam normal, normal ROM of fingers and no swelling; no abrasions, no lacerations, no ecchymosis, no crepitus, no foreign bodies and no puncture wound Course Vital Signs Vital signs: Vital Signs Temperature 37.0 C 06/05/24 18:27 Pulse 109 H 06/05/24 18:27 Respiratory Rate 18 06/05/24 18:27 Blood Pressure 161/108 H 06/05/24 18:27 Pulse Oximetry 97 06/05/24 18:27 Temperature 37.0 C 06/05/24 18:27 Temperature Source Temporal Artery Scan 06/05/24 18:27 Pulse 109 H 06/05/24 18:27 Respiratory Rate 18 06/05/24 18:27 Respiratory Effort Normal, Non-Labored 06/05/24 19:08 Blood Pressure 161/108 H 06/05/24 18:27 Blood Pressure Position Sitting 06/05/24 18:27 Pulse Oximetry 97 06/05/24 18:27 Oxygen Delivery Method Room Air 06/05/24 18:27 Oxygen Flow Rate 0 06/05/24 18:27 Lab/Test Results Lab/Test Results: POC- Test(urine) Negative Medical Decision Making Quality:SDOH Health Related Social Needs: Health related social needs inadequate housing PFSH All Active Problems (Updated 06/05/24 @ 20:21 by Tram Landeros) Dysuria (Acute) Yeast infection (Acute) Constipation (Acute) Suicidal ideation (Acute) Breakthrough bleeding on depo provera (Acute) Encounter for Depo-Provera contraception (Acute) Since 2017. Nicotine dependence (Acute) Contraception, generic surveillance (Acute) Hx of OCPs, Nexplanon, DepoProvera. 02/2023 Norethindrone 0.35mg till 05/2023. Resumed DepoProvera. 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 Hypertrophy of tonsils and adenoids Suicidal ideation Bipolar 2 disorder RBC microcytosis Vitamin D deficiency Steatosis of liver Back pain Dysuria Abdominal pain History of allergic reaction Hemolytic uremic syndrome PTSD (post-traumatic stress disorder) Mesenteric lymphadenitis Drug abuse, episodic use SASHA (stress urinary incontinence, female) Pain, dental Blood in stool History of mastoiditis Jaw pain TMJ tenderness, left Otalgia, right ear BMI 40.0-44.9, adult Overactive bladder (02/09/18) Generalized headaches (12/31/16) Depression (12/31/16) Depo-Provera contraceptive status (09/13/17) Depo-Provera contraception since 08/11/2017. Patient is using the Depo-Provera for menstrual cycle control. ADHD (attention deficit hyperactivity disorder) (12/31/16) Surgical History History of colonoscopy (~06/2022) Hx of tooth extraction History of kidney surgery Social History Smoking/Tobacco Use Status: Never Second Hand Exposure: No Smoking risk assessment performed?: Yes Alcohol Intake: former Drug use: Current Sobriety Substance use type: does not use Caregiver/Support person: Yes Housing: apartment Sexually active: Yes (female partner only now(May 2022). 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
[2024-06-05 19:28] LABS: Bilirubin Negative (Negative); Blood Negative (Negative); Clarity Clear (Clear); Glucose 100 mg/dL (Negative); Ketones 15 mg/dL (Negative); Leukocyte Esterase Negative (Negative); Nitrite Negative (Negative); Specific Gravity >= 1.030 (1.005-1.025); Urobilinogen 0.2 mg/dL (Up to 0.2)
[2024-06-05 19:38] LABS: Bacteria Rare HPF (Negative); C & S Indicated? No; Casts 0-2 Hyaline LPF (Negative); Crystals Negative HPF (Negative); Epithelial Cells Few HPF (Negative); Mucus Trace (Negative); Other Cells Rare Transitional (Negative)
[2024-06-05] MEDS: Fluconazole 150 MG TAB PO (20:26)
--- NOTE | 2024-06-05 20:32 | NUR.NOTE ---
Pt placed on referral list to see PCP for a F/U of urinary symptoms and yeast infections to be seen within 1-2 weeks. Referral sent to Niyah Serna
== END 2024-06-05 20:28 | disposition home or self-care (01) ==
PROVIDERS: Emergency Provider Nurse Practitioner Family; PCP Nurse Practitioner Family
DX: B37.31 Acute candidiasis of vulva and vagina (principal); R30.0 Dysuria
CPT/HCPCS: 99283; 81003; 81015

== ENCOUNTER 2024-06-06 20:21 | Emergency (ER) | payer MEDICAID, SELFPAY ==
[2024-06-06 20:25] VITALS: BP 154/102; PULSE 98; RESP 18; TEMP 36.9; O2SAT 98
[2024-06-06 21:29] LABS: Bilirubin Negative (Negative); Blood Negative (Negative); Clarity Clear (Clear); Glucose Negative (Negative); Ketones Negative (Negative); Leukocyte Esterase Negative (Negative); Nitrite Negative (Negative); Specific Gravity >= 1.030 (1.005-1.025); Urobilinogen 0.2 mg/dL (Up to 0.2)
--- NOTE | 2024-06-06 22:07 | ED.GENADUL_ITS ---
Discharge Plan Disposition Patient Disposition: Home Condition: Stable Discharge Details Clinical Impression: Closed head injury without concussion, Hematoma of scalp, Urinary hesitancy Primary Care Provider: Niyah Serna ED Provider: Terra Melendez Home Meds and New Rx's Prescriptions: Continued melatonin 3 mg tablet 6 mg PO HS medroxyprogesterone 150 mg/mL syringe 150 mg IM [id number] Qty: 1 5RF labetalol 100 mg tablet 100 mg PO QAM Patient Comments: 1/2 Tab QAM Ozempic 0.25 mg or 0.5 mg (2 mg/3 mL) pen injector 0.25 mg subcut QWEEK Patient Comments: takes Qthursdays Rx Instructions: for 4 weeks quetiapine 25 mg tablet 25 mg PO BID docusate sodium 100 mg capsule 100 mg PO DAILY pantoprazole 40 mg Tablet,Delayed Release (Dr/Ec) 40 mg PO QAM clonidine HCl 0.2 mg tablet 0.2 mg PO QHS cholecalciferol (vitamin D3) 50 mcg (2,000 unit) capsule 50 mcg PO DAILY buspirone 7.5 mg tablet 7.5 mg PO BID (DME) lancets [OneTouch Delica Plus Lancet] 33 gauge misc MISCELLANEOUS Patient Comments: TEST BLOOD SUGAR ONCE DAILY ondansetron 4 mg tablet,disintegrating 4 mg PO Q8H PRN (Reason: nausea and vomiting) Qty: 14 0RF polyethylene glycol 3350 [Miralax] 17 gram/dose powder 17 g PO DAILY Qty: 119 0RF Discharge Instructions Instructions: Minor Head Injury, Adult ED, Vaginal Yeast Infection, Adult ED Additional Instructions: Follow up with primary care provider in 3-5 days. Return to ED sooner if any worsening headache not relieved by Tylenol, took 6 point double vision or blurry vision, tingling facial numbness, weakness on one side of your body or the other, confusion or concerns. Please take Tylenol with food every 4-6 hours as needed for pain and swelling. Increase oral fluids. No evidence of urinary tract infection today. Please Referrals: Niyah Serna [Primary Care Provider] - 5 days HPI General Mode of arrival: ambulatory . Date/Time Provider Initiated Documentation: 06/06/24 21:02 . Limitations to Documentation: no limitations . Information obtained by: patient, RN notes reviewed and old records reviewed . HPI Narrative: 29-year-old female presents to the ER with a chief complaint of headache, after slipping in the tub and hitting her head on the wall. She did not fall to the ground. She denies any neck pain nausea weakness dizziness or any other associated symptoms. She does also report continued dysuria and decreased urination. She does have a past medical history of bipolar type II, vitamin D deficiency, obesity, irritable bowel syndrome, oppositional defiant disorder, PTSD, type 2 diabetes, ADHD. Related Data Home Medications ?Medication ?Instructions ?Recorded ?Confirmed labetalol 100 mg tablet 100 mg PO QAM 09/25/21 06/06/24 melatonin 3 mg tablet 6 mg PO HS 09/25/21 06/06/24 pantoprazole 40 mg tablet,delayed 40 mg PO QAM 11/22/22 06/06/24 release clonidine HCl 0.2 mg tablet 0.2 mg PO QHS 02/15/23 06/06/24 docusate sodium 100 mg capsule 100 mg PO DAILY 03/24/23 06/06/24 quetiapine 25 mg tablet 25 mg PO BID 03/24/23 06/06/24 semaglutide 0.25 mg or 0.5 mg (2 0.25 mg subcut QWEEK 08/11/23 06/06/24 mg/3 mL) subcutaneous pen injector ([employer]) medroxyprogesterone 150 mg/mL 150 mg IM [id number] #1 mL 11/14/23 06/06/24 intramuscular syringe lancets 33 gauge (OneTouch Delica 04/17/24 06/06/24 Plus Lancet) ondansetron 4 mg disintegrating 4 mg PO Q8H PRN nausea and 04/17/24 06/06/24 tablet vomiting #14 tabs buspirone 7.5 mg tablet 7.5 mg PO BID 05/11/24 06/06/24 cholecalciferol (vitamin D3) 50 50 mcg PO DAILY 05/11/24 06/06/24 mcg (2,000 unit) capsule polyethylene glycol 3350 17 17 g PO DAILY #119 grams 05/24/24 06/06/24 gram/dose oral powder (Miralax) Previous Rx's ?Medication ?Instructions ?Recorded medroxyprogesterone 150 mg/mL 150 mg IM [id number] #1 mL 11/14/23 intramuscular syringe ondansetron 4 mg disintegrating 4 mg PO Q8H PRN nausea and 04/17/24 tablet vomiting #14 tabs polyethylene glycol 3350 17 17 g PO DAILY #119 grams 05/24/24 gram/dose oral powder (Miralax) Allergies Allergy/AdvReac Type Severity Reaction Status Date / Time fluticasone (From Flovent Allergy Severe unknown Verified 06/06/24 20:27 HFA) lisinopril Allergy Intermediate unknown Verified 06/06/24 20:27 paroxetine HCl (From Paxil) Allergy Intermediate Hives Verified 06/06/24 20:27 risperidone (From Risperdal) Allergy Intermediate Hives Verified 06/06/24 20:27 NSAIDS (Non-Steroidal Allergy Due to Verified 06/06/24 20:27 Anti-Inflamma prior kidney damage fluoxetine AdvReac Intermediate Vomiting,di Verified 06/06/24 20:27 arrhea ibuprofen AdvReac Intermediate vomiting Verified 06/06/24 20:27 naproxen (From Aleve) AdvReac Intermediate vomiting Verified 06/06/24 20:27 sertraline AdvReac Intermediate WEIRD Verified 06/06/24 20:27 FEELING OVER MY BODY acetaminophen AdvReac Nausea Unverified 06/06/24 20:27 amoxicillin AdvReac Nausea Verified 06/06/24 20:27 seafood Allergy Intermediate unknown Uncoded 06/06/24 20:27 enviornmental Allergy Mild sneezing Uncoded 06/06/24 20:27 dark sodas AdvReac Severe BAD FOR Uncoded 06/06/24 20:27 MY KIDNEYS General Stated Complaint: Urinary MARY KAY: 3 Review of Systems All systems reviewed & are unremarkable except as noted in HPI and below Constitutional Constitutional: Reports as per HPI, Denies frequent falls, Reports headache(s) and Denies weakness Eyes Eyes: Denies blind spots, Denies blurry vision, Denies change in vision, Denies loss of vision and Denies seeing flashes ENT Ears, Nose, Mouth, and Throat: Denies vertigo, Denies dizziness and Reports headache(s) Cardiovascular Cardiovascular: Denies chest pain, Denies syncope and Denies dyspnea Respiratory Respiratory: Denies dyspnea Genitourinary Genitourinary: Reports as per HPI, Reports difficulty voiding, Reports dysuria, Reports vaginal discharge and Reports vaginal pruritus Musculoskeletal Musculoskeletal: Denies numbness Neurologic Neurologic: Reports as per HPI, Denies confusion, Denies vertigo, Denies dizziness, Denies syncope, Denies frequent falls, Reports headache(s), Denies localized weakness, Denies loss of vision, Denies numbness, Denies convulsions and Denies weakness Psychiatric Psychiatric: Denies confusion Exam Narrative Exam Narrative: General: Well Developed, Awake and Alert, conversant. Skin: Warm and Dry HEENT: Head: No palpable deformities, Normocephalic Eyes: Pupils PERRLA, EOM's intact. No periorbital eccymosis or step off Ears: Canal patent. Tympanic membranes are clear . No lantigua's sign, no hemptympanum. Nose/Face: Atraumatic. Facial bones nontender to palpation and stable with manipulation. Mouth/Throat: No intraoral trauma. Teeth and mandible are intact. Neck: No midline tenderness, no step off, no deformity to palpation of C-spine. Trachea midline. Chest: No surface trauma. Nontender without crepitus or deformity. Lungs clear to ausculatation bilaterally. Heart: RRR, no rubs, murmurs or gallop. Abdomen: No abrasions, ecchymosis, or surface trauma. Nondistended. Nontender to palpation no guarding, rebound, or rigidity. Pelvis: Nontender to palpation and stable to compression. Femoral pulses strong and equal Extremities: no surface trauma. Sensation intact. Peripheral pulses intact and equal. Neuro: ANO x4, GCS 15, cranial nerves II through XII intact. Motor and sensory exam nonfocal. Reflexes are symmetric. Course Vital Signs Vital signs: Vital Signs Temperature 36.9 C 06/06/24 20:25 Pulse 98 H 06/06/24 20:25 Respiratory Rate 18 06/06/24 20:25 Blood Pressure 154/102 H 06/06/24 20:25 Pulse Oximetry 98 06/06/24 20:25 Temperature 36.9 C 06/06/24 20:25 Temperature Source Temporal Artery Scan 06/06/24 20:25 Pulse 98 H 06/06/24 20:25 Respiratory Rate 18 06/06/24 20:25 Respiratory Effort Normal, Non-Labored 06/06/24 20:27 Blood Pressure 154/102 H 06/06/24 20:25 Blood Pressure Position Sitting 06/06/24 20:25 Pulse Oximetry 98 06/06/24 20:25 Oxygen Delivery Method Room Air 06/06/24 20:25 Oxygen Flow Rate 0 06/06/24 20:25 Pain Level 5 06/06/24 20:36 Lab/Test Results Lab/Test Results: Laboratory Tests Range/Units 06/06/24 21:19 Urine Color (Yellow) Yellow Urine Clarity (Clear) Clear Urine pH (5-8) 6.0 Ur Specific [place] (1.005-1.025) >= 1.030 H Urine Protein (Neg-Trace) mg/dL Trace Urine Ketones (Negative) mg/dL Negative Urine Blood (Negative) Negative Urine Nitrite (Negative) Negative Urine Bilirubin (Negative) Negative Urine Urobilinogen (Up to 0.2) mg/dL 0.2 Ur Leukocyte Esterase (Negative) Negative Urine Glucose (Negative) mg/dL Negative Medical Decision Making 29-year-old female presents to the ER with a chief complaint of headache, after slipping in the tub and hitting her head on the wall. She did not fall to the ground. She denies any neck pain nausea weakness dizziness or any other associated symptoms. She does also report continued dysuria and decreased urination. She does have a past medical history of bipolar type II, vitamin D deficiency, obesity, irritable bowel syndrome, oppositional defiant disorder, PTSD, type 2 diabetes, ADHD. Patient was seen here recently and given Diflucan for her urinary symptoms. At that time she opted to follow-up with her PCP for [employer] exam. She reports that her symptoms are still the same, no urinary tract infection noted she has been observed here in the emergency department for at least 2 hours has remained alert and oriented x 4, no vomiting no nausea. She does have a small hematoma noted to the back of her head. Will give 1 additional tablet of Diflucan, was given Tylenol here in the department. Discussed closed head injury signs and symptoms and red flags in which to return and she verbalized understanding. She is requesting something to eat and for us to check her blood sugar. Fingerstick blood sugar here is 103. Call caregiver to discharge her back home and to pick her up. This text was generated using [employer] system, please disregard any oddities of phrase or misspellings. Quality:SDOH Health Related Social Needs: Health related social needs inadequate housing PFSH All Active Problems (Updated 06/06/24 @ 23:59 by Terra Melendez NP) Urinary hesitancy (Acute) Hematoma of scalp (Acute) Closed head injury without concussion (Acute) Dysuria (Acute) Yeast infection (Acute) Constipation (Acute) Suicidal ideation (Acute) Breakthrough bleeding on depo provera (Acute) Encounter for Depo-Provera contraception (Acute) Since 2017. Nicotine dependence (Acute) Contraception, generic surveillance (Acute) Hx of OCPs, Nexplanon, DepoProvera. 02/2023 Norethindrone 0.35mg till 05/2023. Resumed DepoProvera. 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 Hypertrophy of tonsils and adenoids Suicidal ideation Bipolar 2 disorder RBC microcytosis Vitamin D deficiency Steatosis of liver Back pain Dysuria Abdominal pain History of allergic reaction Hemolytic uremic syndrome PTSD (post-traumatic stress disorder) Mesenteric lymphadenitis Drug abuse, episodic use SASHA (stress urinary incontinence, female) Pain, dental Blood in stool History of mastoiditis Jaw pain TMJ tenderness, left Otalgia, right ear BMI 40.0-44.9, adult Overactive bladder (02/09/18) Generalized headaches (12/31/16) Depression (12/31/16) Depo-Provera contraceptive status (09/13/17) Depo-Provera contraception since 08/11/2017. Patient is using the Depo- Provera for menstrual cycle control. ADHD (attention deficit hyperactivity disorder) (12/31/16) Surgical History History of colonoscopy (~06/2022) Hx of tooth extraction History of kidney surgery Social History Smoking/Tobacco Use Status: Never Second Hand Exposure: No Smoking risk assessment performed?: Yes Alcohol Intake: former Drug use: Current Sobriety Substance use type: does not use Caregiver/Support person: Yes Housing: apartment Sexually active: Yes (female partner only now(May 2022). 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
[2024-06-06] MEDS: Fluconazole 150 MG TAB PO (22:31)
[2024-06-06] MEDS: Acetaminophen 500 MG TAB (22:32)
== END 2024-06-06 22:33 | disposition home or self-care (01) ==
PROVIDERS: Emergency Medicine; Emergency Provider Registered Nurse Emergency; PCP Nurse Practitioner Family
DX: S09.8XXA Other specified injuries of head, initial encounter (principal); R39.11 Hesitancy of micturition; W18.30XA Fall on same level, unspecified, initial encounter
CPT/HCPCS: 82962; 99283; 81003

== ENCOUNTER 2024-07-12 19:28 | Emergency (ER) | payer MEDICAID, SELFPAY ==
[2024-07-12 19:44] VITALS: BP 144/99; PULSE 125; RESP 15; TEMP 36.6; O2SAT 97
--- NOTE | 2024-07-12 19:45 | RT.EKG_ITS ---
APPROVED REPORT Exam: Resting ECG Reason for Exam: tachycardia Patient Location: E HR:106 bpm ECG Measurements Heart Rate 106 AXIS MN 137 P 49 QRSd 89 QRS 53 QT 335 T 35 QTc 444 Conclusion Sinus tachycardia, rate 106 No interval abnormality or ectopy No STEMI
[2024-07-12 19:52] VITALS: BP 144/99; PULSE 125; RESP 15; TEMP 36.6; O2SAT 97
--- NOTE | 2024-07-12 19:57 | ED.GENADUL_ITS ---
Discharge Plan Disposition Patient Disposition: Home Condition: Stable Discharge Details Clinical Impression: Hyperglycemia Primary Care Provider: Niyah Serna ED Provider: Douglas Keith Home Meds and New Rx's Prescriptions: Continued melatonin 3 mg tablet 6 mg PO HS medroxyprogesterone 150 mg/mL syringe 150 mg IM [id number] Qty: 1 5RF labetalol 100 mg tablet 100 mg PO QAM Patient Comments: 1/2 Tab QAM Ozempic 0.25 mg or 0.5 mg (2 mg/3 mL) pen injector 0.25 mg subcut QWEEK Patient Comments: takes Qthursdays Rx Instructions: for 4 weeks quetiapine 25 mg tablet 25 mg PO BID docusate sodium 100 mg capsule 100 mg PO DAILY pantoprazole 40 mg Tablet,Delayed Release (Dr/Ec) 40 mg PO QAM clonidine HCl 0.2 mg tablet 0.2 mg PO QHS cholecalciferol (vitamin D3) 50 mcg (2,000 unit) capsule 50 mcg PO DAILY buspirone 7.5 mg tablet 7.5 mg PO BID (DME) lancets [OneTouch Delica Plus Lancet] 33 gauge misc MISCELLANEOUS Patient Comments: TEST BLOOD SUGAR ONCE DAILY ondansetron 4 mg tablet,disintegrating 4 mg PO Q8H PRN (Reason: nausea and vomiting) Qty: 14 0RF polyethylene glycol 3350 [Miralax] 17 gram/dose powder 17 g PO DAILY Qty: 119 0RF Discharge Instructions Instructions: The ABCs of diabetes, High Blood Sugar, Adult ED Additional Instructions: You were seen in the emergency department for your poorly controlled blood sugars and known diabetes. Please follow-up with your primary care provider for better pharmacologic management or lifestyle changes to better manage your blood sugars. You are found to have no electrolyte abnormalities, you are not in diabetic ketoacidosis and your EKG shows no acute abnormalities, we provided you with IV fluids and your blood sugar was 291 on arrival in 202 upon recheck, please stay well-hydrated. Return to the emergency department for fever, sweats, chills, jitters or shakes, confusion, nausea or vomiting or any other emergent concerns Referrals: Niyah Serna [Primary Care Provider] - HPI General Date/Time Provider Initiated Documentation: 07/12/24 19:57 . HPI Narrative: 29 year-old female presents to ED today by POV/ambulating with a chief complaint of recommended eval by PCP for elevated glucose readings of 300's, takes Ozempic- states its due to the shots with onset over days. Quality described as just high blood sugar readings, no radiation to fever, shakes, chills, confusion, respiratory distress, nausea, weakness, vomiting. Severity is described as mild. Palliating factors include nothing attempted. Provoking factors include Ozempic shots. Events leading up to the incident/Associated Symptoms: Patient denies taking any other diabetes medications. Patient not anticoagulated. Related Data Home Medications ?Medication ?Instructions ?Recorded ?Confirmed labetalol 100 mg tablet 100 mg PO QAM 09/25/21 07/05/24 melatonin 3 mg tablet 6 mg PO HS 09/25/21 07/05/24 pantoprazole 40 mg tablet,delayed 40 mg PO QAM 11/22/22 07/05/24 release clonidine HCl 0.2 mg tablet 0.2 mg PO QHS 02/15/23 07/05/24 docusate sodium 100 mg capsule 100 mg PO DAILY 03/24/23 07/05/24 quetiapine 25 mg tablet 25 mg PO BID 03/24/23 07/05/24 semaglutide 0.25 mg or 0.5 mg (2 0.25 mg subcut QWEEK 08/11/23 07/05/24 mg/3 mL) subcutaneous pen injector (Ozempic) medroxyprogesterone 150 mg/mL 150 mg IM [id number] #1 mL 11/14/23 07/05/24 intramuscular syringe lancets 33 gauge (OneTouch Delica 04/17/24 07/05/24 Plus Lancet) ondansetron 4 mg disintegrating 4 mg PO Q8H PRN nausea and 04/17/24 07/05/24 tablet vomiting #14 tabs buspirone 7.5 mg tablet 7.5 mg PO BID 05/11/24 07/05/24 cholecalciferol (vitamin D3) 50 50 mcg PO DAILY 05/11/24 07/05/24 mcg (2,000 unit) capsule polyethylene glycol 3350 17 17 g PO DAILY #119 grams 05/24/24 06/06/24 gram/dose oral powder (Miralax) Previous Rx's ?Medication ?Instructions ?Recorded medroxyprogesterone 150 mg/mL 150 mg IM [id number] #1 mL 11/14/23 intramuscular syringe ondansetron 4 mg disintegrating 4 mg PO Q8H PRN nausea and 04/17/24 tablet vomiting #14 tabs polyethylene glycol 3350 17 17 g PO DAILY #119 grams 05/24/24 gram/dose oral powder (Miralax) Allergies Allergy/AdvReac Type Severity Reaction Status Date / Time fluticasone (From Flovent Allergy Severe unknown Verified 07/05/24 09:06 HFA) lisinopril Allergy Intermediate unknown Verified 07/05/24 09:06 paroxetine HCl (From Paxil) Allergy Intermediate Hives Verified 07/05/24 09:06 risperidone (From Risperdal) Allergy Intermediate Hives Verified 07/05/24 09:06 NSAIDS (Non-Steroidal Allergy Due to Verified 07/05/24 09:06 Anti-Inflamma prior kidney damage fluoxetine AdvReac Intermediate Vomiting,di Verified 07/05/24 09:06 arrhea ibuprofen AdvReac Intermediate vomiting Verified 07/05/24 09:06 naproxen (From Aleve) AdvReac Intermediate vomiting Verified 07/05/24 09:06 sertraline AdvReac Intermediate WEIRD Verified 07/05/24 09:06 FEELING OVER MY BODY acetaminophen AdvReac Nausea Unverified 07/05/24 09:06 amoxicillin AdvReac Nausea Verified 07/05/24 09:06 seafood Allergy Intermediate unknown Uncoded 07/05/24 09:06 enviornmental Allergy Mild sneezing Uncoded 07/05/24 09:06 dark sodas AdvReac Severe BAD FOR Uncoded 07/05/24 09:06 MY KIDNEYS General Stated Complaint: Diabetes MARY KAY: 3 Review of Systems All systems reviewed & are unremarkable except as noted in HPI and below Exam Narrative Exam Narrative: GENERAL APPEARANCE: Well-nourished, non-toxic, awake and alert, atraumatic, no acute distress. SKIN: Warm, pink, dry, intact, without rashes/lesions/ulcerations. HEAD: Normocephalic, atraumatic, normal hair distribution for gender/age. EYES: Normal conjunctiva, no exudates on lids/lashes. ENT: Nares patent, no circumoral cyanosis, no facial swelling NECK: Supple, trachea midline, painless cervical ROM. LUNGS/CHEST: Lungs CTA bilaterally- no rhonchi/rales/wheezes diffusely, non- labored respirations, normal A/P diameter, symmetrical expansion, no chest wall deformity HEART (CV/PV): Regular rate and rhythm without murmur, no peripheral edema, no JVD. ABDOMEN: Soft, non-distended, no guarding. MSK: Normal ROM, no swelling/deformity to bilateral UEs or LEs, moving all extremities without weakness, no cyanosis, spine midline without tenderness, normal curvature. NEURO: Mental Status AAOx4 - alert to person, place, time, events No facial droop, no forehead involvement. Motor: No focal weakness - strength 5/5 in bilateral UEs and LEs, proximal and distal, symmetric. Sensory: sensation intact to light touch globally. Gait normal: patient ambulated without ataxia into ED room. PSYCH: euthymic, cooperative, pleasant, appropriate speech Course Vital Signs Vital signs: Vital Signs Temperature 36.6 C 07/12/24 19:44 Pulse 125 H 07/12/24 19:44 Respiratory Rate 15 07/12/24 19:44 Blood Pressure 144/99 H 07/12/24 19:44 Pulse Oximetry 97 07/12/24 19:44 Temperature 36.6 C 07/12/24 19:52 Temperature Source Tympanic 07/12/24 19:52 Pulse 125 H 07/12/24 19:52 Respiratory Rate 15 07/12/24 19:52 Respiratory Effort Normal 07/12/24 19:52 Blood Pressure 144/99 H 07/12/24 19:52 Blood Pressure Position Sitting 07/12/24 19:52 Pulse Oximetry 97 07/12/24 19:52 Oxygen Delivery Method Room Air 07/12/24 19:52 Oxygen Flow Rate 0 07/12/24 19:52 Medical Decision Making This dictation utilizes [id number] dictation software and may contain unedited grammatical errors. 29 year-old female presents to ED today by POV/ambulating with a chief complaint of recommended eval by PCP for elevated glucose readings of 300's, takes Ozempic- states its due to the shots with onset over days. Quality described as just high blood sugar readings, no radiation to fever, shakes, chills, confusion, respiratory distress, nausea, weakness, vomiting. Severity is described as mild. Palliating factors include nothing attempted. Provoking factors include Ozempic shots. Events leading up to the incident/Associated Symptoms: Patient denies taking any other diabetes medications. Patients' medical history: Sleep disturbance, oppositional defiant disorder, IBS, borderline personality disorder, literacy, bipolar 2 disorder, diabetes mellitus, hypertension, nicotine dependence. Family and social history: has [facility] care aides, states recently lost her job. Pertinent exam findings / vital signs include no abnormal respirations, benign abdomen, nontoxic vitals, benign cardiopulmonary status, neuro intact. Differential / pathologies of concern include hyperglycemia, unlikely DKA. Diagnostic studies of: -CBC, BMP, magnesium, phosphorus, urinalysis, VBG, EKG. -VBG shows pH 7.43, no DKA -CBC shows no leukocytosis, no anemia -CMP shows no actionable abnormality, glucose 291 on arrival, repeat fingerstick after 1 L 202 -Magnesium and phosphorus within normal limits -EKG shows a sinus rhythm at 106 bpm consistent with priors, normal axis, no acute ST changes, normal intervals Interventions of: -1 L normal saline IVF. ED Course/Assessment/Plan: 29-year-old female well-known to the emergency department presents to ED for blood sugar issues, states she has been on the Ozempic shot and her blood sugars been up and down, primary care recommends ED evaluation for asymptomatic hyperglycemia in the 300s, patient was given IV fluids and is correcting in the right direction, takes only Ozempic for diabetes management I recommend she follow-up with her primary care provider for more optimal pharmacologic treatment regimen if she is having poor control of her glucose. Stressed strict return criteria for developing fevers, confusion, sweats or jitters, nausea or vomiting. Findings not consistent with diabetic ketoacidosis, arrhythmia, electrolyte disturbance. Disposition of Hyperglycemia. Patient verbalized understanding of the plan and return to ED criteria and engaged in shared decision making. Medical Records Medical records reviewed: Yes I reviewed the patient's medical records. Lab Data Lab results reviewed: Yes I reviewed the patient's lab results. Labs: Laboratory Tests Range/Units 07/12/24 20:44 WBC (4.4-10.8) 10^3/uL 9.69 RBC (3.93-5.22) 10^6/uL 5.77 H Hgb (11.2-15.7) g/dL 13.0 Hct (36.0-46.0) % 41.0 MCV (80-95) fL 71 L MCH (27.0-33.0) pg 22.5 L MCHC (32.0-36.0) % 31.7 L RDW (11.7-14.6) % 15.7 H Plt Count (130-400) 10^3/uL 267 MPV (8.0-11.0) fL Immature Gran % % 0.5 Neutrophils % % 65.8 Lymphocytes % % 23.6 Monocytes % % 8.2 Eosinophils % % 1.4 Basophils % % 0.5 Nucleated RBC % (0.0-0.3) % 0.0 Absolute Neutrophils (1.2-6.7) 10^3/uL 6.37 Absolute Lymphocytes (1.2-3.4) 10^3/uL 2.29 Absolute Monocytes (0.1-0.8) 10^3/uL 0.79 Absolute Eosinophils (0.0-0.7) 10^3/uL 0.14 Absolute Basophils (0.0-0.2) 10^3/uL 0.05 RBC Morphology See Below Microcytosis 1+ VBG pH (7.31-7.41) 7.43 H VBG pCO2 (41-51) mmHg 34 L VBG pO2 mmHg 95 VBG HCO3 (23-28) mmol/L 23 VBG Total CO2 (24-29) mmol/L 20 L VBG O2 Saturation % 98 VBG Base Excess (-2-3) mmol/L -2 Sodium (136-145) mmol/L 135 L Potassium (3.5-5.1) mmol/L 3.8 Chloride (98-107) mmol/L 100 Carbon Dioxide (21.0-32.0) mmol/L 24.1 Anion Gap (3-11) mmol/L 10.9 BUN (7-18) mg/dL 10 Creatinine (0.55-1.02) mg/dL 0.8 Est GFR (CKD-EPI 2020) (mL/min/1.73m2) 103.50 Glucose (74-106) mg/dL 291 H Calcium (8.5-10.1) mg/dL 9.7 Phosphorus (2.6-4.7) mg/dL 3.9 Magnesium (1.8-2.4) mg/dL 1.9 Quality:SDOH Health Related Social Needs: Health related social needs inadequate housing PFSH All Active Problems (Updated 07/12/24 @ 22:06 by HARRISON Carmona) Hyperglycemia (Acute) Breakthrough bleeding on depo provera (Acute) Encounter for Depo-Provera contraception (Acute) Since 2016. Nicotine dependence (Acute) Contraception, generic surveillance (Acute) Hx of OCPs, Nexplanon, DepoProvera. 02/2023 Norethindrone 0.35mg till 05/2023. Resumed DepoProvera. 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 Hypertrophy of tonsils and adenoids Suicidal ideation Bipolar 2 disorder RBC microcytosis Vitamin D deficiency Steatosis of liver Back pain Dysuria Abdominal pain History of allergic reaction Hemolytic uremic syndrome PTSD (post-traumatic stress disorder) Mesenteric lymphadenitis Drug abuse, episodic use SASHA (stress urinary incontinence, female) Pain, dental Blood in stool History of mastoiditis Jaw pain TMJ tenderness, left Otalgia, right ear BMI 40.0-44.9, adult Overactive bladder (02/09/18) Generalized headaches (12/31/16) Depression (12/31/16) Depo-Provera contraceptive status (09/13/17) Depo-Provera contraception since 08/11/2017. Patient is using the Depo- Provera for menstrual cycle control. ADHD (attention deficit hyperactivity disorder) (12/31/16) Surgical History History of colonoscopy (~06/2022) Hx of tooth extraction History of kidney surgery Social History Smoking/Tobacco Use Status: Never Second Hand Exposure: No Smoking risk assessment performed?: Yes Alcohol Intake: former Drug use: Current Sobriety Substance use type: does not use Caregiver/Support person: Yes Housing: apartment Sexually active: Yes (female partner only now(May 2022). 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
[2024-07-12] MEDS: Normal Saline 1,000 ML 1000 ML IV (20:48)
[2024-07-12 20:50] LABS: BE (Venous) -2 mmol/L (-2-3); HCO3 (Venous) 23 mmol/L (23-28); O2 Sat (Venous) 98 %; TCO2 (Venous) 20 mmol/L (24-29); pCO2 (Venous) 34 mmHg (41-51); pH (Venous) 7.43 (7.31-7.41); pO2 (Venous) 95 mmHg
[2024-07-12 20:52] LABS: Abs Immature Grans 0.05 10^3/uL (0.0-0.06); Absolute Basophil Count 0.05 10^3/uL (0.0-0.2); Absolute Eosinophil Count 0.14 10^3/uL (0.0-0.7); Absolute Lymphocyte Count 2.29 10^3/uL (1.2-3.4); Absolute Monocyte Count 0.79 10^3/uL (0.1-0.8); Absolute Neutrophil Count 6.37 10^3/uL (1.2-6.7); Basophils % 0.5 %; Eosinophils % 1.4 %; Immature Grans % 0.5 %; Lymphocytes % 23.6 %; MCH 22.5 pg (27.0-33.0); MCHC 31.7 % (32.0-36.0); MCV 71 fL (80-95); Monocytes % 8.2 %; Neutrophils % 65.8 %; Platelet Count 267 10^3/uL (130-400); RBC 5.77 10^6/uL (3.93-5.22); RDW 15.7 % (11.7-14.6); RDW-SD 39.5 fL; WBC 9.69 10^3/uL (4.4-10.8)
[2024-07-12 21:17] LABS: Anion Gap 10.9 mmol/L (3-11); BUN 10 mg/dL (7-18); CO2 24.1 mmol/L (21.0-32.0); CREATININE 0.8 mg/dL (0.55-1.02); Calcium 9.7 mg/dL (8.5-10.1); Chloride 100 mmol/L (98-107); Glucose 291 mg/dL (74-106); PHOSPHORUS 3.9 mg/dL (2.6-4.7); Potassium 3.8 mmol/L (3.5-5.1); Sodium 135 mmol/L (136-145)
[2024-07-12 21:27] LABS: Magnesium 1.9 mg/dL (1.8-2.4)
[2024-07-12 21:28] LABS: Diff Comment RBC Morph Reviewed; Microcytosis 1+
[2024-07-12 21:29] VITALS: BP 156/112; PULSE 108; RESP 20; TEMP 36.7; O2SAT 97
--- NOTE | 2024-07-12 21:54 | NUR.NOTE ---
Nursing Note: Report and transfer of care given to Lourdes Crane RN at this time
[2024-07-12 22:14] LABS: Bilirubin Negative (Negative); Blood Negative (Negative); Clarity Clear (Clear); Glucose >=1000 mg/dL (Negative); Ketones Negative (Negative); Leukocyte Esterase Negative (Negative); Nitrite Negative (Negative); Specific Gravity 1.025 (1.005-1.025); Urobilinogen 0.2 mg/dL (Up to 0.2); pH 6.5 (5-8)
[2024-07-12 22:21] VITALS: BP 159/121; PULSE 106; RESP 18; O2SAT 99
[2024-07-12 22:27] LABS: Bacteria Few HPF (Negative); Casts Negative LPF (Negative); Crystals Negative HPF (Negative); Epithelial Cells Moderate HPF (Negative); Mucus Negative (Negative); RBC Negative HPF (0-2)
[2024-07-12 22:28] LABS: C & S Indicated? No
== END 2024-07-12 22:21 | disposition home or self-care (01) ==
PROVIDERS: Emergency Provider Physician Assistant; PCP Nurse Practitioner Family
DX: R73.9 Hyperglycemia, unspecified (principal)
CPT/HCPCS: 36416; 80048; 82805; 82962; 93005; 96360; 99284; 81003; 81015; 83735; 84100; 85025; 93010; 99283

== ENCOUNTER 2024-07-19 22:08 | Emergency (ER) | payer MEDICAID, SELFPAY ==
[2024-07-19 22:14] VITALS: BP 172/97; PULSE 107; RESP 22; TEMP 36.6; O2SAT 98
--- NOTE | 2024-07-19 22:25 | ED.GENADUL_ITS ---
Discharge Plan Disposition Patient Disposition: Home Condition: Good Discharge Details Chief Complaint: OD/Poison Clinical Impression: Nausea & vomiting, Alcohol use Primary Care Provider: Niyah Serna ED Provider: Douglas Gamez Home Meds and New Rx's Prescriptions: No Action melatonin 3 mg tablet 6 mg PO HS medroxyprogesterone 150 mg/mL syringe 150 mg IM [id number] Qty: 1 5RF labetalol 100 mg tablet 100 mg PO QAM Patient Comments: 1/2 Tab QAM Ozempic 0.25 mg or 0.5 mg (2 mg/3 mL) pen injector 0.25 mg subcut QWEEK Patient Comments: takes Qthursdays Rx Instructions: for 4 weeks quetiapine 25 mg tablet 25 mg PO BID docusate sodium 100 mg capsule 100 mg PO DAILY pantoprazole 40 mg Tablet,Delayed Release (Dr/Ec) 40 mg PO QAM clonidine HCl 0.2 mg tablet 0.2 mg PO QHS cholecalciferol (vitamin D3) 50 mcg (2,000 unit) capsule 50 mcg PO DAILY buspirone 7.5 mg tablet 7.5 mg PO BID (DME) lancets [OneTouch Delica Plus Lancet] 33 gauge misc MISCELLANEOUS Patient Comments: TEST BLOOD SUGAR ONCE DAILY ondansetron 4 mg tablet,disintegrating 4 mg PO Q8H PRN (Reason: nausea and vomiting) Qty: 14 0RF polyethylene glycol 3350 [Miralax] 17 gram/dose powder 17 g PO DAILY Qty: 119 0RF Discharge Instructions Instructions: Nausea and Vomiting, Adult ED Additional Instructions: Please try to avoid all alcohol use. Please stick with a mild bland diet for e next 24 to 48 hours. Avoid any fatty or greasy foods. If you notice any worsening of your symptoms, or any new symptoms such as vomiting, diarrhea, fever, chills, shortness of breath, chest pain, numbness, weakness, or fainting , please return immediately to the emergency department for reevaluation. Please follow up with your primary care provider as soon as possible for reassessment and reevaluation. As always, it was a pleasure participating in your medical care today. Referrals: Niyah Serna [Primary Care Provider] - HPI General Date/Time Provider Initiated Documentation: 07/19/24 22:12 . HPI Narrative: 29-year-old female with a past medical history of CKD stage I, hypertension, mild mental slowing, borderline personality disorder, irritable bowel syndrome, bipolar type II, PTSD, ADHD, presents today for evaluation of nausea and vomiting. Patient states that she drank a bunch of alcohol this evening starting at 6 PM. It was a couple twisted teas and some other drinks at the bar. After drinking all of this alcohol she states that she has been nauseous and has had 2 episodes of vomiting and has had an upset stomach. No blood in her vomit. She denies any abdominal pain aside from mild upset stomach. She denies any chest pain or shortness of breath. No other medication changes. She has not taken any of her nighttime medications. No other complaints at this time. Related Data Home Medications ?Medication ?Instructions ?Recorded ?Confirmed labetalol 100 mg tablet 100 mg PO QAM 09/25/21 07/05/24 melatonin 3 mg tablet 6 mg PO HS 09/25/21 07/05/24 pantoprazole 40 mg tablet,delayed 40 mg PO QAM 11/22/22 07/05/24 release clonidine HCl 0.2 mg tablet 0.2 mg PO QHS 02/15/23 07/05/24 docusate sodium 100 mg capsule 100 mg PO DAILY 03/24/23 07/05/24 quetiapine 25 mg tablet 25 mg PO BID 03/24/23 07/05/24 semaglutide 0.25 mg or 0.5 mg (2 0.25 mg subcut QWEEK 08/11/23 07/05/24 mg/3 mL) subcutaneous pen injector (Ozempic) medroxyprogesterone 150 mg/mL 150 mg IM [id number] #1 mL 11/14/23 07/05/24 intramuscular syringe lancets 33 gauge (OneTouch Delica 04/17/24 07/05/24 Plus Lancet) ondansetron 4 mg disintegrating 4 mg PO Q8H PRN nausea and 04/17/24 07/05/24 tablet vomiting #14 tabs buspirone 7.5 mg tablet 7.5 mg PO BID 05/11/24 07/05/24 cholecalciferol (vitamin D3) 50 50 mcg PO DAILY 05/11/24 07/05/24 mcg (2,000 unit) capsule polyethylene glycol 3350 17 17 g PO DAILY #119 grams 05/24/24 06/06/24 gram/dose oral powder (Miralax) Previous Rx's ?Medication ?Instructions ?Recorded medroxyprogesterone 150 mg/mL 150 mg IM [id number] #1 mL 11/14/23 intramuscular syringe ondansetron 4 mg disintegrating 4 mg PO Q8H PRN nausea and 04/17/24 tablet vomiting #14 tabs polyethylene glycol 3350 17 17 g PO DAILY #119 grams 05/24/24 gram/dose oral powder (Miralax) Allergies Allergy/AdvReac Type Severity Reaction Status Date / Time fluticasone (From Flovent Allergy Severe unknown Verified 07/05/24 09:06 HFA) lisinopril Allergy Intermediate unknown Verified 07/05/24 09:06 paroxetine HCl (From Paxil) Allergy Intermediate Hives Verified 07/05/24 09:06 risperidone (From Risperdal) Allergy Intermediate Hives Verified 07/05/24 09:06 NSAIDS (Non-Steroidal Allergy Due to Verified 07/05/24 09:06 Anti-Inflamma prior kidney damage fluoxetine AdvReac Intermediate Vomiting,di Verified 07/05/24 09:06 arrhea ibuprofen AdvReac Intermediate vomiting Verified 07/05/24 09:06 naproxen (From Aleve) AdvReac Intermediate vomiting Verified 07/05/24 09:06 sertraline AdvReac Intermediate WEIRD Verified 07/05/24 09:06 FEELING OVER MY BODY acetaminophen AdvReac Nausea Unverified 07/05/24 09:06 amoxicillin AdvReac Nausea Verified 07/05/24 09:06 seafood Allergy Intermediate unknown Uncoded 07/05/24 09:06 enviornmental Allergy Mild sneezing Uncoded 07/05/24 09:06 dark sodas AdvReac Severe BAD FOR Uncoded 07/05/24 09:06 MY KIDNEYS General Stated Complaint: OD/Poison MARY KAY: 3 Review of Systems All systems reviewed & are unremarkable except as noted in HPI and below Exam Narrative Exam Narrative: 1.Const: Well-nourished, Well-developed, appearing stated age 2.Eyes: PERRL, no conjunctival injection, and symmetrical lids. 3.ENT: Atraumatic external nose and ears. Moist MM. Neck: Symmetric, trachea midline, No thyromegaly. 4.CVS: +S1/S2, No murmurs or gallops. Peripheral pulses 2+ and equal in all extremities. Brisk capillary refill in all extremities. 5.RESP: Unlabored respiratory effort. Clear to auscultation bilaterally. No wheezes rales or rhonchi 6.GI: Soft, Nontender/Nondistended, No hepatosplenomegaly. No guarding or hannah ound. 7.MSK: Normocephalic/Atraumatic, Extremities w/o deformity or ttp No cyanosis or clubbing, Normal movement of all extremities 8.Skin: Warm, Dry. No rashes or lesions. 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 Sensation grossly intact, no focal neurologic deficits. 10.Psych: (AAO) x3. Appropriate mood and affect Course Vital Signs Vital signs: Vital Signs Temperature 36.6 C 07/19/24 22:14 Pulse 107 H 07/19/24 22:14 Respiratory Rate 22 07/19/24 22:14 Blood Pressure 172/97 H 07/19/24 22:14 Pulse Oximetry 98 07/19/24 22:14 Temperature 36.6 C 07/19/24 22:14 Temperature Source Temporal Artery Scan 07/19/24 22:14 Pulse 107 H 07/19/24 22:14 Respiratory Rate 22 07/19/24 22:14 Blood Pressure 172/97 H 07/19/24 22:14 Blood Pressure Position Sitting 07/19/24 22:14 Pulse Oximetry 98 07/19/24 22:14 Oxygen Delivery Method Room Air 07/19/24 22:14 Oxygen Flow Rate 0 07/19/24 22:14 Pain Level 0 07/19/24 22:14 Medical Decision Making 29-year-old female with a past medical history of CKD stage I, hypertension, mild mental slowing, borderline personality disorder, irritable bowel syndrome, bipolar type II, PTSD, ADHD, presents today for evaluation of nausea and vomiting. Patient states that she drank a bunch of alcohol this evening starting at 6 PM. It was a couple twisted teas and some other drinks at the bar. After drinking all of this alcohol she states that she has been nauseous and has had 2 episodes of vomiting and has had an upset stomach. No blood in her vomit. She denies any abdominal pain aside from mild upset stomach. She denies any chest pain or shortness of breath. No other medication changes. She has not taken any of her nighttime medications. No other complaints at this time. Exam demonstrates well-appearing female, mucous membranes are moist, no abdominal tenderness. No neurologic deficits. Frankly the patient looks quite clinically sober at this time and at her baseline. Suspect mild intoxication causing her symptoms. Symptoms appearing consistent with severe pancreatitis, obstructive etiology in the abdomen based on exam and present bowel sounds, or acute surgical abdominal pathology. We will rehydrate, give Zofran ODT, check test and drug screen for potential unknowingly added components. We will monitor closely and reassess. Blood sugar is 206. Symptoms do not appear clinically consistent with DKA. 11:25 PM Patient remains stable, on reassessment she feels completely well. She has tolerated multiple cups of water here with no difficulty after Zofran. She feels well and is requesting discharge. No evidence of abdominal tenderness or guarding or rebound. No distention. Drug screen negative. Patient is requesting to go home. The patient is able to speak clearly. There is no demonstration of any slurring of speech. There is evidence of clear decision making capacity. Patient is able to ambulate well without any difficulty. There are no signs of ataxia or stumbling motions. Symptoms inconsistent with severe intoxication, pancreatitis, or other life-threatening etiology at this stage. Patient will be discharged home. Discussed red flags for which to return. Symptoms appear consistent with mild reactivity and stomach irritation/transient gastritis from alcohol use. I have extensively reviewed the treatment plan and discharge instructions with the patient. I have addressed all patient concerns at this time. The patient was made aware of what symptoms to monitor for that would warrant a return to the emergency department. Discussed the plan with the patient, they demonstrate verbal understanding and agreement with our assessment and plan at this time. The documentation in this chart was dictated using [employer] dictation software. Please excuse any dictation errors. Quality:SDOH Health Related Social Needs: Health related social needs inadequate housing PFSH All Active Problems (Updated 07/19/24 @ 23:23 by Douglas Gamez DO) Alcohol use (Acute) Nausea & vomiting (Acute) Hyperglycemia (Acute) Breakthrough bleeding on depo provera (Acute) Encounter for Depo-Provera contraception (Acute) Since 2017. Nicotine dependence (Acute) Contraception, generic surveillance (Acute) Hx of OCPs, Nexplanon, DepoProvera. 02/2023 Norethindrone 0.35mg till 05/2023. Resumed DepoProvera. 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 Hypertrophy of tonsils and adenoids Suicidal ideation Bipolar 2 disorder RBC microcytosis Vitamin D deficiency Steatosis of liver Back pain Dysuria Abdominal pain History of allergic reaction Hemolytic uremic syndrome PTSD (post-traumatic stress disorder) Mesenteric lymphadenitis Drug abuse, episodic use SASHA (stress urinary incontinence, female) Pain, dental Blood in stool History of mastoiditis Jaw pain TMJ tenderness, left Otalgia, right ear BMI 40.0-44.9, adult Overactive bladder (02/09/18) Generalized headaches (12/31/16) Depression (12/31/16) Depo-Provera contraceptive status (09/13/17) Depo-Provera contraception since 08/11/2017. Patient is using the Depo- Provera for menstrual cycle control. ADHD (attention deficit hyperactivity disorder) (12/31/16) Surgical History History of colonoscopy (~06/2022) Hx of tooth extraction History of kidney surgery Social History Smoking/Tobacco Use Status: Never Second Hand Exposure: No Smoking risk assessment performed?: Yes Alcohol Intake: current Alcohol Intake frequency: a few times a week Alcohol t ype: beer and hard liquor Drug use: Current Sobriety Substance use type: does not use Caregiver/Support person: Yes Housing: apartment Sexually active: Yes (female partner only now(May 2022). 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
[2024-07-19 22:41] VITALS: RESP 22
[2024-07-19] MEDS: Ondansetron O.D.T. 4 MG TABEF PO (22:41)
[2024-07-19 23:09] LABS: *AMPHETAMINES SCREEN URINE Negative (Negative); *BARBITURATES SCREEN URINE Negative (Negative); *BENZODIAZEPINES SCREEN URINE Negative (Negative); Cannabinoids THC Negative (Negative); Cocaine Screen,Urine Negative (Negative); METHADONE URINE SCREEN Negative (Negative); OPIATES URINE SCREEN Negative (Negative)
[2024-07-19 23:10] LABS: Tricyclic Antidepressants Negative (Negative)
== END 2024-07-19 23:26 | disposition home or self-care (01) ==
PROVIDERS: Emergency Provider Student in an Organized Health Care Education/Training Program; PCP Nurse Practitioner Family
DX: R11.2 Nausea with vomiting, unspecified (principal); F10.90 Alcohol use, unspecified, uncomplicated; N18.1 Chronic kidney disease, stage 1
CPT/HCPCS: 36416; 80307; 82962; 99283

== ENCOUNTER 2024-07-28 07:37 | Emergency (ER) | payer MEDICAID, SELFPAY ==
[2024-07-28 07:40] VITALS: BP 143/85; PULSE 89; RESP 16; TEMP 37.6; O2SAT 98
[2024-07-28 07:45] VITALS: BP 143/85; PULSE 91; RESP 16; TEMP 36.5; O2SAT 99
--- NOTE | 2024-07-28 08:02 | W.ED.GENAD ---
Discharge Plan Disposition Patient Disposition: Home Condition: Stable Discharge Details Clinical Impression: Pharyngitis Primary Care Provider: Niyah Serna ED Provider: Douglas Keith Home Meds and New Rx's Prescriptions: Continued melatonin 3 mg tablet 6 mg PO HS medroxyprogesterone 150 mg/mL syringe 150 mg IM [id number] Qty: 1 5RF labetalol 100 mg tablet 100 mg PO QAM Patient Comments: 1/2 Tab QAM Ozempic 0.25 mg or 0.5 mg (2 mg/3 mL) pen injector 0.25 mg subcut QWEEK Patient Comments: takes Qthursdays Rx Instructions: for 4 weeks quetiapine 25 mg tablet 25 mg PO BID docusate sodium 100 mg capsule 100 mg PO DAILY pantoprazole 40 mg Tablet,Delayed Release (Dr/Ec) 40 mg PO QAM clonidine HCl 0.2 mg tablet 0.2 mg PO QHS cholecalciferol (vitamin D3) 50 mcg (2,000 unit) capsule 50 mcg PO DAILY buspirone 7.5 mg tablet 7.5 mg PO BID (DME) lancets [OneTouch Delica Plus Lancet] 33 gauge misc MISCELLANEOUS Patient Comments: TEST BLOOD SUGAR ONCE DAILY ondansetron 4 mg tablet,disintegrating 4 mg PO Q8H PRN (Reason: nausea and vomiting) Qty: 14 0RF polyethylene glycol 3350 [Miralax] 17 gram/dose powder 17 g PO DAILY Qty: 119 0RF Discharge Instructions Instructions: Sore Throat, Adult ED Additional Instructions: You were seen in the emergency department for your sore throat for 3 days, your rapid strep is negative, we did send a culture which should result tomorrow, if it is positive someone will send you antibiotics. Otherwise I think he does have some discomfort possibly from a CPAP machine or a viral illness, please continue salt water gargles with warm salt water 3 times per day, take an [id number] sore throat liquid cold medicine and take regular dose of Tylenol and ibuprofen for pain and discomfort as needed. Please return for any severe changes for the worse like hoarse voice, severe neck pain or swelling, inability to open or close your jaw. Referrals: Niyah Serna [Primary Care Provider] - Discharge Data Discharge Date/Time-TO BE ENTERED AT DEPARTURE: 07/28/24 08:21 HPI General Date/Time Provider Initiated Documentation: 07/28/24 07:56. HPI Narrative: 29 year-old female presents to ED today by POV/ambulating with a chief complaint of sore throat with onset three days ago. Quality described as generalized sore throat, low grade fever, no radiation to vocal changes, trismus, nausea/vomiting, cough, shortness of breath, dysphagia. Severity is described as mild to moderate. Palliating factors include nothing specific attempted. Provoking factors include nothing specific. Patient not anticoagulated. Related Data Home Medications ?Medication ?Instructions ?Recorded ?Confirmed labetalol 100 mg tablet 100 mg PO QAM 09/25/21 07/28/24 melatonin 3 mg tablet 6 mg PO HS 09/25/21 07/28/24 pantoprazole 40 mg tablet,delayed 40 mg PO QAM 11/22/22 07/28/24 release clonidine HCl 0.2 mg tablet 0.2 mg PO QHS 02/15/23 07/28/24 docusate sodium 100 mg capsule 100 mg PO DAILY 03/24/23 07/28/24 quetiapine 25 mg tablet 25 mg PO BID 03/24/23 07/28/24 semaglutide 0.25 mg or 0.5 mg (2 0.25 mg subcut QWEEK 08/11/23 07/28/24 mg/3 mL) subcutaneous pen injector (Dine in) medroxyprogesterone 150 mg/mL 150 mg IM [id number] #1 mL 11/14/23 07/28/24 intramuscular syringe lancets 33 gauge (OneTouch Delica 04/17/24 07/28/24 Plus Lancet) ondansetron 4 mg disintegrating 4 mg PO Q8H PRN nausea and 04/17/24 07/28/24 tablet vomiting #14 tabs buspirone 7.5 mg tablet 7.5 mg PO BID 05/11/24 07/28/24 cholecalciferol (vitamin D3) 50 50 mcg PO DAILY 05/11/24 07/28/24 mcg (2,000 unit) capsule polyethylene glycol 3350 17 17 g PO DAILY #119 grams 05/24/24 07/28/24 gram/dose oral powder (Miralax) Previous Rx's ?Medication ?Instructions ?Recorded medroxyprogesterone 150 mg/mL 150 mg IM [id number] #1 mL 11/14/23 intramuscular syringe ondansetron 4 mg disintegrating 4 mg PO Q8H PRN nausea and 04/17/24 tablet vomiting #14 tabs polyethylene glycol 3350 17 17 g PO DAILY #119 grams 05/24/24 gram/dose oral powder (Miralax) Allergies Allergy/AdvReac Type Severity Reaction Status Date / Time fluticasone (From Flovent Allergy Severe unknown Verified 07/05/24 09:06 HFA) lisinopril Allergy Intermediate unknown Verified 07/05/24 09:06 paroxetine HCl (From Paxil) Allergy Intermediate Hives Verified 07/05/24 09:06 risperidone (From Risperdal) Allergy Intermediate Hives Verified 07/05/24 09:06 NSAIDS (Non-Steroidal Allergy Due to Verified 07/05/24 09:06 Anti-Inflamma prior kidney damage fluoxetine AdvReac Intermediate Vomiting,di Verified 07/05/24 09:06 arrhea ibuprofen AdvReac Intermediate vomiting Verified 07/05/24 09:06 naproxen (From Aleve) AdvReac Intermediate vomiting Verified 07/05/24 09:06 sertraline AdvReac Intermediate WEIRD Verified 07/05/24 09:06 FEELING OVER MY BODY acetaminophen AdvReac Nausea Unverified 07/05/24 09:06 amoxicillin AdvReac Nausea Verified 07/05/24 09:06 seafood Allergy Intermediate unknown Uncoded 07/05/24 09:06 enviornmental Allergy Mild sneezing Uncoded 07/05/24 09:06 dark sodas AdvReac Severe BAD FOR Uncoded 07/05/24 09:06 MY KIDNEYS General Stated Complaint: Sorethroat MARY KAY: 4 Review of Systems All systems reviewed & are unremarkable except as noted in HPI and below Exam Narrative Exam Narrative: GENERAL APPEARANCE: Well-nourished, non-toxic, awake and alert, atraumatic, no acute distress. SKIN: Warm, pink, dry, intact, without rashes/lesions/ulcerations. HEAD: Normocephalic, atraumatic, normal hair distribution for gender/age. EYES: Normal conjunctiva, no exudates on lids/lashes. ENT: Nares patent, no circumoral cyanosis, no facial swelling, mild posterior oropharyngeal erythema without exudate, no vocal changes, no trismus NECK: Supple, trachea midline, painless cervical ROM. LUNGS/CHEST: Non-labored respirations, normal A/P diameter, symmetrical expansion, no chest wall deformity HEART (CV/PV): No peripheral edema, no JVD. ABDOMEN: Soft, non-distended, no guarding. MSK: Normal ROM, no swelling/deformity to bilateral UEs or LEs, moving all extremities without weakness, no cyanosis, spine midline without tenderness, normal curvature. NEURO: Mental Status AAOx4 - alert to person, place, time, events No facial droop, no forehead involvement. Motor: No focal weakness - strength 5/5 in bilateral UEs and LEs, proximal and distal, symmetric. Sensory: sensation intact to light touch globally. Gait normal: patient ambulated without ataxia into ED room. PSYCH: euthymic, cooperative, pleasant, appropriate speech Course Vital Signs Vital signs: Vital Signs Temperature 37.6 C H 07/28/24 07:40 Pulse 89 07/28/24 07:40 Respiratory Rate 16 07/28/24 07:40 Blood Pressure 143/85 H 07/28/24 07:40 Pulse Oximetry 98 07/28/24 07:40 Temperature 36.5 C 07/28/24 07:45 Temperature Source Oral 07/28/24 07:45 Pulse 91 H 07/28/24 07:45 Respiratory Rate 16 07/28/24 07:45 Respiratory Effort Normal, Non-Labored 07/28/24 07:43 Blood Pressure 143/85 H 07/28/24 07:45 Blood Pressure Position Sitting 07/28/24 07:45 Pulse Oximetry 99 07/28/24 07:45 Oxygen Delivery Method Room Air 07/28/24 07:45 Oxygen Flow Rate 0 07/28/24 07:40 Pain Level 5 07/28/24 07:45 Comment no pain meds today 07/28/24 07:40 Lab/Test Results Lab/Test Results: 07/28/24 08:00 Tonsil - Not Specified Group A Streptococcus Culture - Pending POC Strep Test-ROHIT(Rapid) Start: 07/28/24 07:45 Freq: .Rapid Strep Test Status: Active Protocol: Document 07/28/24 08:00 VALERIA (Rec: 07/28/24 08:00 VALERIA [id number]) Strep test-ROHIT(Rapid)-POC POC-Strep test-ROHIT (Rapid) Negative POC-Strep test-ROHIT (Rapid) Negative Medical Decision Making This dictation utilizes [id number] dictation software and may contain unedited grammatical errors. 29 year-old female presents to ED today by POV/ambulating with a chief complaint of sore throat with onset three days ago. Quality described as generalized sore throat, low grade fever, no radiation to vocal changes, trismus, nausea/vomiting, cough, shortness of breath, dysphagia. Severity is described as mild to moderate. Palliating factors include nothing specific attempted. Provoking factors include nothing specific. Patients' medical history: noncontributory. Family and social history: noncontributory. Pertinent exam findings / vital signs include ENT: Nares patent, no circumoral cyanosis, no facial swelling, mild posterior oropharyngeal erythema without exudate, no vocal changes, no trismus. Differential / pathologies of concern include pharyngitis, strep, not [employer]/epiglottitis. Diagnostic studies of: -Rapid Strep- negative, Cx pending. Interventions of: -none. ED Course/Assessment/Plan: 29-year-old female who presents with mild to moderate pharyngitis for 3 days, not warranted for antibiotics at this time, rapid strep negative, counseled on performing warm salt water gargles and using Tylenol as needed for pain and low-grade fever with strict return criteria for vocal changes, neck swelling, inability to tolerate p.o. intake, vocal changes, inability to range the jaw. Findings not consistent with [employer]/epiglottitis. Disposition of Pharyngitis. Patient verbalized understanding of the plan and return to ED criteria and engaged in shared decision making. Medical Records Medical records reviewed: Yes I reviewed the patient's medical records. Lab Data Lab results reviewed: Yes I reviewed the patient's lab results. Lab results narrative: POC Rapid Strep negative, Cx sent Quality:SDOH Health Related Social Needs: Health related social needs inadequate housing PFSH All Active Problems (Updated 07/28/24 @ 08:10 by HARRISON Carmona) Pharyngitis (Acute) Alcohol use (Acute) Nausea & vomiting (Acute) Hyperglycemia (Acute) Breakthrough bleeding on depo provera (Acute) Encounter for Depo-Provera contraception (Acute) Since 2017. Nicotine dependence (Acute) Contraception, generic surveillance (Acute) Hx of OCPs, Nexplanon, DepoProvera. 02/2023 Norethindrone 0.35mg till 05/2023. Resumed DepoProvera. 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 Hypertrophy of tonsils and adenoids Suicidal ideation Bipolar 2 disorder RBC microcytosis Vitamin D deficiency Steatosis of liver Back pain Dysuria Abdominal pain History of allergic reaction Hemolytic uremic syndrome PTSD (post-traumatic stress disorder) Mesenteric lymphadenitis Drug abuse, episodic use SASHA (stress urinary incontinence, female) Pain, dental Blood in stool History of mastoiditis Jaw pain TMJ tenderness, left Otalgia, right ear BMI 40.0-44.9, adult Overactive bladder (02/09/18) Generalized headaches (12/31/16) Depression (12/31/16) Depo-Provera contraceptive status (09/13/17) Depo-Provera contraception since 08/11/2017. Patient is using the Depo-Provera for menstrual cycle control. ADHD (attention deficit hyperactivity disorder) (12/31/16) Surgical History History of colonoscopy (~06/2022) Hx of tooth extraction History of kidney surgery Social History Smoking/Tobacco Use Status: Never Second Hand Exposure: No Smoking risk assessment performed?: Yes Alcohol Intake: current Alcohol Intake frequency: a few times a week Alcohol type: beer and hard liquor Drug use: Current Sobriety Substance use type: does not use Caregiver/Support person: Yes Housing: apartment Sexually active: Yes (female partner only now(May 2022). 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
[2024-07-28 08:20] VITALS: BP 142/97; PULSE 90; RESP 14; O2SAT 97
== END 2024-07-28 08:21 | disposition home or self-care (01) ==
PROVIDERS: Emergency Provider Physician Assistant; PCP Nurse Practitioner Family
DX: J02.9 Acute pharyngitis, unspecified (principal)
CPT/HCPCS: 99282; 87081

== ENCOUNTER 2024-08-01 15:19 | Emergency (ER) | payer MEDICAID, SELFPAY ==
[2024-08-01 15:37] VITALS: BP 164/106; PULSE 105; RESP 20; TEMP 36.9; O2SAT 97
--- NOTE | 2024-08-01 15:50 | NUR.NOTE ---
Nursing Note: During triage pt told us that we are not allowed to treat without her guardian's consent. Unable to get ahold of her guardian at this time. FS was 308. Pt going out to her coworkers car to get ahold of her state lady to get ahold of her mother for consent.
--- NOTE | 2024-08-01 16:30 | DI.RAD_ITS ---
Exam(s) XR CHEST 2V PA LATERAL EXAM: XR CHEST 2V PA LATERAL CLINICAL HISTORY: hyperglycemia, chest pain. TECHNIQUE: 2D digital imaging was performed. COMPARISON: CR XR CHEST 2V PA LATERAL from 03/15/2024 FINDINGS: 2 views: Heart size is normal. The mediastinum is not widened. Lungs are clear. No infiltrates nor pleural effusions. IMPRESSION: No acute pulmonary findings. DATA REPOSITORY: RADIATION DOSE DELIVERED:
[2024-08-01 16:40] LABS: BE (Venous) -3 mmol/L (-2-3); HCO3 (Venous) 21 mmol/L (23-28); O2 Sat (Venous) 94 %; TCO2 (Venous) 19 mmol/L (24-29); pCO2 (Venous) 32 mmHg (41-51); pH (Venous) 7.43 (7.31-7.41); pO2 (Venous) 71 mmHg
[2024-08-01 16:41] LABS: Abs Immature Grans 0.04 10^3/uL (0.0-0.06); Absolute Basophil Count 0.08 10^3/uL (0.0-0.2); Absolute Eosinophil Count 0.13 10^3/uL (0.0-0.7); Absolute Neutrophil Count 6.25 10^3/uL (1.2-6.7); Basophils % 0.9 %; Eosinophils % 1.4 %; HCT 41.8 % (36.0-46.0); HGB 13.3 g/dL (11.2-15.7); Immature Grans % 0.4 %; Lymphocytes % 21.7 %; MCH 22.7 pg (27.0-33.0); MCHC 31.8 % (32.0-36.0); MCV 71 fL (80-95); Monocytes % 7.6 %; Platelet Count 247 10^3/uL (130-400); RBC 5.87 10^6/uL (3.93-5.22); RDW 15.6 % (11.7-14.6); RDW-SD 39.6 fL
[2024-08-01] MEDS: Normal Saline 1,000 ML 1000 ML IV (16:45)
[2024-08-01 16:51] LABS: Diff Comment RBC Morph Reviewed; Microcytosis 1+
[2024-08-01 17:00] LABS: ALT 31 U/L (14-59); AST < 5 U/L (15-37); Albumin 3.9 g/dL (3.4-5.0); Alkaline Phosphatase 129 U/L (46-116); Anion Gap 11.1 mmol/L (3-11); BUN 10 mg/dL (7-18); Bilirubin, Total 0.34 mg/dL (0.2-1.0); CO2 22.9 mmol/L (21.0-32.0); CREATININE 0.8 mg/dL (0.55-1.02); Calcium 9.5 mg/dL (8.5-10.1); Chloride 98 mmol/L (98-107); Glucose 310 mg/dL (74-106); Potassium 3.6 mmol/L (3.5-5.1); Sodium 132 mmol/L (136-145); Total Protein 7.9 g/dL (6.4-8.2)
[2024-08-01 17:33] LABS: Bilirubin Negative (Negative); Blood Negative (Negative); Clarity Clear (Clear); Glucose 500 mg/dL (Negative); Ketones Negative (Negative); Leukocyte Esterase Negative (Negative); Nitrite Negative (Negative); Urobilinogen 0.2 mg/dL (Up to 0.2); pH 5.5 (5-8)
[2024-08-01 17:42] VITALS: BP 164/106; PULSE 105; RESP 20; TEMP 36.9; O2SAT 97
[2024-08-01 18:07] VITALS: BP 154/105; TEMP 36.2; O2SAT 97
--- NOTE | 2024-08-01 18:18 | DI.VRAD_ITS ---
PROCEDURE INFORMATION: Exam: XR Chest Exam date and time: 08/01/2024 5:24 PM Age: 29 years old Clinical indication: Other: Hyperglycemia, chest pain TECHNIQUE: Imaging protocol: Radiologic exam of the chest. Views: 2 views. COMPARISON: CR XR CHEST 2V PA LATERAL 03/15/2024 8:24 AM FINDINGS: Lungs: Unremarkable. No consolidation. Pleural spaces: Unremarkable. No pleural effusion. No pneumothorax. Heart/Mediastinum: Unremarkable. No cardiomegaly. Bones/joints: Unremarkable. IMPRESSION: No acute findings. Dictated and Authenticated by: Jn Demarco MD. Ordering:CHEYENNE Galvez MD
--- NOTE | 2024-08-01 21:52 | W.ED.GENAD ---
Discharge Plan Disposition Patient Disposition: Home Condition: Stable Discharge Details Clinical Impression: Acute hyperglycemia, Diabetes Primary Care Provider: Niyah Serna ED Provider: Leonor Simons Home Meds and New Rx's Prescriptions: New glimepiride 1 mg tablet 1 mg PO DAILY Qty: 14 0RF Rx Instructions: at your largest meal Continued melatonin 3 mg tablet 6 mg PO HS medroxyprogesterone 150 mg/mL syringe 150 mg IM [id number] Qty: 1 5RF labetalol 100 mg tablet 100 mg PO QAM Patient Comments: 1/2 Tab QAM Ozempic 0.25 mg or 0.5 mg (2 mg/3 mL) pen injector 0.25 mg subcut QWEEK Patient Comments: takes Qthursdays Rx Instructions: for 4 weeks quetiapine 25 mg tablet 25 mg PO BID docusate sodium 100 mg capsule 100 mg PO DAILY pantoprazole 40 mg Tablet,Delayed Release (Dr/Ec) 40 mg PO QAM clonidine HCl 0.2 mg tablet 0.2 mg PO QHS cholecalciferol (vitamin D3) 50 mcg (2,000 unit) capsule 50 mcg PO DAILY buspirone 7.5 mg tablet 7.5 mg PO BID (DME) lancets [OneTouch Delica Plus Lancet] 33 gauge misc MISCELLANEOUS Patient Comments: TEST BLOOD SUGAR ONCE DAILY ondansetron 4 mg tablet,disintegrating 4 mg PO Q8H PRN (Reason: nausea and vomiting) Qty: 14 0RF polyethylene glycol 3350 [Miralax] 17 gram/dose powder 17 g PO DAILY Qty: 119 0RF Discharge Instructions Instructions: Blood Glucose Monitoring, Carb counting for adults with diabetes, Diabetes and diet Additional Instructions: I have written a prescription for glimepiride, this is a medication you should take with her largest meal and you should check your blood sugars frequently as it can cause your blood sugar to drop Continue on your Ozempic and follow-up with your doctor at your scheduled appointment You have declined any additional treatment at this time, please be reevaluated at your earliest ability I also recommend watching your diet, I have placed some diet recommendations for you HPI General Date/Time Provider Initiated Documentation: 08/01/24 16:13. HPI Narrative: This 29-year-old female was sent in secondary to high blood sugar. She states she has had polyuria, polydipsia, and polyphagia. Patient states she has been taking her Ozempic as prescribed. She is not taking the metformin as it causes diarrhea observation. She states that today she is felt particularly poorly which is why she presents. Denies any fever or chills. Denies any chest pain or shortness of breath. Denies any chance of . Related Data Home Medications ?Medication ?Instructions ?Recorded ?Confirmed labetalol 100 mg tablet 100 mg PO QAM 09/25/21 08/01/24 melatonin 3 mg tablet 6 mg PO HS 09/25/21 08/01/24 pantoprazole 40 mg tablet,delayed 40 mg PO QAM 11/22/22 08/01/24 release clonidine HCl 0.2 mg tablet 0.2 mg PO QHS 02/15/23 08/01/24 docusate sodium 100 mg capsule 100 mg PO DAILY 03/24/23 08/01/24 quetiapine 25 mg tablet 25 mg PO BID 03/24/23 08/01/24 semaglutide 0.25 mg or 0.5 mg (2 0.25 mg subcut QWEEK 08/11/23 08/01/24 mg/3 mL) subcutaneous pen injector (Ozempic) medroxyprogesterone 150 mg/mL 150 mg IM [id number] #1 mL 11/14/23 08/01/24 intramuscular syringe lancets 33 gauge ([facility] 04/17/24 08/01/24 Plus Lancet) ondansetron 4 mg disintegrating 4 mg PO Q8H PRN nausea and 04/17/24 08/01/24 tablet vomiting #14 tabs buspirone 7.5 mg tablet 7.5 mg PO BID 05/11/24 08/01/24 cholecalciferol (vitamin D3) 50 50 mcg PO DAILY 05/11/24 08/01/24 mcg (2,000 unit) capsule polyethylene glycol 3350 17 17 g PO DAILY #119 grams 05/24/24 08/01/24 gram/dose oral powder (Miralax) glimepiride 1 mg tablet 1 mg PO DAILY #14 tabs 08/01/24 Previous Rx's ?Medication ?Instructions ?Recorded medroxyprogesterone 150 mg/mL 150 mg IM [id number] #1 mL 11/14/23 intramuscular syringe ondansetron 4 mg disintegrating 4 mg PO Q8H PRN nausea and 04/17/24 tablet vomiting #14 tabs polyethylene glycol 3350 17 17 g PO DAILY #119 grams 05/24/24 gram/dose oral powder (Miralax) glimepiride 1 mg tablet 1 mg PO DAILY #14 tabs 08/01/24 Allergies Allergy/AdvReac Type Severity Reaction Status Date / Time fluticasone (From Flovent Allergy Severe unknown Verified 07/05/24 09:06 HFA) lisinopril Allergy Intermediate unknown Verified 07/05/24 09:06 paroxetine HCl (From Paxil) Allergy Intermediate Hives Verified 07/05/24 09:06 risperidone (From Risperdal) Allergy Intermediate Hives Verified 07/05/24 09:06 NSAIDS (Non-Steroidal Allergy Due to Verified 07/05/24 09:06 Anti-Inflamma prior kidney damage fluoxetine AdvReac Intermediate Vomiting,di Verified 07/05/24 09:06 arrhea ibuprofen AdvReac Intermediate vomiting Verified 07/05/24 09:06 naproxen (From Aleve) AdvReac Intermediate vomiting Verified 07/05/24 09:06 sertraline AdvReac Intermediate WEIRD Verified 07/05/24 09:06 FEELING OVER MY BODY acetaminophen AdvReac Nausea Unverified 07/05/24 09:06 amoxicillin AdvReac Nausea Verified 07/05/24 09:06 seafood Allergy Intermediate unknown Uncoded 07/05/24 09:06 enviornmental Allergy Mild sneezing Uncoded 07/05/24 09:06 dark sodas AdvReac Severe BAD FOR Uncoded 07/05/24 09:06 MY KIDNEYS General Stated Complaint: Diabetes MARY KAY: 3 Exam Narrative Exam Narrative: Alert and oriented, no acute distress, conversant, cranial nerves II through XII intact, ambulatory with steady gait, lungs clear to auscultation, cardiac rate rhythm regular Course Vital Signs Vital signs: Vital Signs Temperature 36.9 C 08/01/24 15:37 Pulse 105 H 08/01/24 15:37 Respiratory Rate 20 08/01/24 15:37 Blood Pressure 164/106 H 08/01/24 15:37 Pulse Oximetry 97 08/01/24 15:37 Temperature 36.2 C L 08/01/24 18:07 Temperature Source Tympanic 08/01/24 18:07 Pulse 105 H 08/01/24 17:42 Respiratory Rate 20 08/01/24 17:42 Respiratory Effort Normal 08/01/24 17:42 Blood Pressure 154/105 H 08/01/24 18:07 Pulse Oximetry 97 08/01/24 18:07 Oxygen Delivery Method Room Air 08/01/24 18:07 Oxygen Flow Rate 0 08/01/24 18:07 Pain Level 0 08/01/24 18:07 Lab/Test Results Lab/Test Results: Laboratory Tests Range/Units 08/01/24 08/01/24 16:35 17:05 WBC (4.4-10.8) 10^3/uL 9.20 RBC (3.93-5.22) 10^6/uL 5.87 H Hgb (11.2-15.7) g/dL 13.3 Hct (36.0-46.0) % 41.8 MCV (80-95) fL 71 L MCH (27.0-33.0) pg 22.7 L MCHC (32.0-36.0) % 31.8 L RDW (11.7-14.6) % 15.6 H Plt Count (130-400) 10^3/uL 247 MPV (8.0-11.0) fL Immature Gran % % 0.4 Neutrophils % % 68.0 Lymphocytes % % 21.7 Monocytes % % 7.6 Eosinophils % % 1.4 Basophils % % 0.9 Nucleated RBC % (0.0-0.3) % 0.0 Absolute Neutrophils (1.2-6.7) 10^3/uL 6.25 Absolute Lymphocytes (1.2-3.4) 10^3/uL 2.00 Absolute Monocytes (0.1-0.8) 10^3/uL 0.70 Absolute Eosinophils (0.0-0.7) 10^3/uL 0.13 Absolute Basophils (0.0-0.2) 10^3/uL 0.08 RBC Morphology See Below Microcytosis 1+ VBG pH (7.31-7.41) 7.43 H VBG pCO2 (41-51) mmHg 32 L VBG pO2 mmHg 71 VBG HCO3 (23-28) mmol/L 21 L VBG Total CO2 (24-29) mmol/L 19 L VBG O2 Saturation % 94 VBG Base Excess (-2-3) mmol/L -3 L Sodium (136-145) mmol/L 132 L Potassium (3.5-5.1) mmol/L 3.6 Chloride (98-107) mmol/L 98 Carbon Dioxide (21.0-32.0) mmol/L 22.9 Anion Gap (3-11) mmol/L 11.1 H BUN (7-18) mg/dL 10 Creatinine (0.55-1.02) mg/dL 0.8 Est GFR (CKD-EPI 2020) (mL/min/1.73m2) 103.50 Glucose (74-106) mg/dL 310 H Calcium (8.5-10.1) mg/dL 9.5 Total Bilirubin (0.2-1.0) mg/dL 0.34 AST (15-37) U/L < 5 L ALT (14-59) U/L 31 Alkaline Phosphatase (46-116) U/L 129 H Total Protein (6.4-8.2) g/dL 7.9 Albumin (3.4-5.0) g/dL 3.9 Urine Color (Yellow) Yellow Urine Clarity (Clear) Clear Urine pH (5-8) 5.5 Ur Specific [place] (1.005-1.025) 1.020 Urine Protein (Neg-Trace) mg/dL Negative Urine Ketones (Negative) mg/dL Negative Urine Blood (Negative) Negative Urine Nitrite (Negative) Negative Urine Bilirubin (Negative) Negative Urine Urobilinogen (Up to 0.2) mg/dL 0.2 Ur Leukocyte Esterase (Negative) Negative Urine Glucose (Negative) mg/dL 500 H POC- Test(urine) Negative Medical Decision Making 29-year-old female presents with report of multiple complaints and history of diabetes. Elevated blood sugars at home. Taking Ozempic. Denies any fever or chills. Denies any chest pain or shortness of breath. Diagnostic labs do not show evidence of diabetic ketoacidosis, hyperglycemia at 310, VBG reassuring. We talked about starting patient back on metformin or glimepiride, however she declines both of these medications. I spoke with her guardian, Crystal she is comfortable with what ever we recommend. Patient states she has an appointment with her doctor and refuses to start any new medications until she talks to her doctor. It is after hours and I am unable to call patient's PCP at this time but she is encouraged to follow-up with her doctor. She is also encouraged to watch her diet, diet suggestions were reviewed. Electrolytes are all within normal limits. Patient discharged home alert and oriented, of decisional capacity in stable condition. Repeat pulse of 92, blood pressure remains elevated encouraged to have rechecked by primary care Quality:SDOH Health Related Social Needs: Health related social needs inadequate housing PFSH All Active Problems (Updated 08/01/24 @ 17:57 by HARRISON Nava) Diabetes (Chronic) Acute hyperglycemia (Acute) Pharyngitis (Acute) Alcohol use (Acute) Nausea & vomiting (Acute) Hyperglycemia (Acute) Breakthrough bleeding on depo provera (Acute) Encounter for Depo-Provera contraception (Acute) Since 2016. Nicotine dependence (Acute) Contraception, generic surveillance (Acute) Hx of OCPs, Nexplanon, DepoProvera. 02/2023 Norethindrone 0.35mg till 05/2023. Resumed DepoProvera. 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 Hypertrophy of tonsils and adenoids Suicidal ideation Bipolar 2 disorder RBC microcytosis Vitamin D deficiency Steatosis of liver Back pain Dysuria Abdominal pain History of allergic reaction Hemolytic uremic syndrome PTSD (post-traumatic stress disorder) Mesenteric lymphadenitis Drug abuse, episodic use SASHA (stress urinary incontinence, female) Pain, dental Blood in stool History of mastoiditis Jaw pain TMJ tenderness, left Otalgia, right ear BMI 40.0-44.9, adult Overactive bladder (02/09/18) Generalized headaches (12/31/16) Depression (12/31/16) Depo-Provera contraceptive status (09/13/17) Depo-Provera contraception since 08/11/2017. Patient is using the Depo-Provera for menstrual cycle control. ADHD (attention deficit hyperactivity disorder) (12/31/16) Surgical History History of colonoscopy (~06/2022) Hx of tooth extraction History of kidney surgery Social History Smoking/Tobacco Use Status: Never Second Hand Exposure: No Smoking risk assessment performed?: Yes Alcohol Intake: current Alcohol Intake frequency: a few times a week Alcohol type: beer and hard liquor Drug use: Current Sobriety Substance use type: does not use Caregiver/Support person: Yes Housing: apartment Sexually active: Yes (female partner only now(May 2022). 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
== END 2024-08-02 03:37 | disposition home or self-care (01) ==
PROVIDERS: Emergency Provider Physician Assistant; PCP Nurse Practitioner Family
DX: E11.65 Type 2 diabetes mellitus with hyperglycemia (principal)
CPT/HCPCS: 36416; 80053; 81025; 82805; 82962; 96360; 99284; 71046; 81003; 85025

== ENCOUNTER 2024-08-22 02:16 | Outpatient (CLI) | payer MEDICAID, SELFPAY ==
--- NOTE | 2024-08-22 | DI.US_ITS ---
Exam(s) US SOFT TISSUE EXTREMITY EXAM: US SOFT TISSUE EXTREMITY CLINICAL HISTORY: H/O IV 1 MO AGO,RT SUBCUTANEOUS NODULE,R22.9. TECHNIQUE: Ultrasound was performed using standard protocol. COMPARISON: No exams were available for comparison FINDINGS: Sonographic assessment utilizing grayscale and color Doppler imaging was performed and targeted to th e area of clinical concern. There is no evidence of a soft tissue mass or focal fluid collection in the area of concern in the ri ght upper arm. The right brachial, cephalic and basilic veins were patent and compressible without e vidence of thrombus. IMPRESSION: Unremarkable examination. DATA REPOSITORY:
== END 2024-08-22 02:36 ==
LOC: DI 02:16
PROVIDERS: PCP Nurse Practitioner Family; Visit Provider Nurse Practitioner Family
DX: R22.31 Localized swelling, mass and lump, right upper limb (principal)
CPT/HCPCS: 76881

== ENCOUNTER 2024-08-27 18:24 | Emergency (ER) | payer MEDICAID, SELFPAY ==
[2024-08-27 18:36] VITALS: BP 161/110; PULSE 120; RESP 18; TEMP 36.6; O2SAT 98
--- NOTE | 2024-08-27 18:45 | DI.CT_ITS ---
Exam(s) CT ABDOMEN PELVIS CTA EXAM: CT ABDOMEN PELVIS CTA CLINICAL HISTORY: severe lower ABD pain, rectal bleeding. TECHNIQUE: Imaging Protocol: Axial computed tomography images with coronal and sagittal reformatted images were created and reviewed CONTRAST MATERIAL: Intravenous: Omnipaque 350 Contrast volume:100 ml Oral: None COMPARISON: CT CT ABDOMEN PELVIS CTA from 03/20/2024 FINDINGS: ABDOMEN: AORTA: No evidence of abdominal aortic aneurysm nor aneurysm of the iliac arteries common femoral art eries. The celiac and SMA arteries are patent as is the inferior mesenteric artery. No significant at herosclerotic stenosis evident in the renal arteries. No significant narrowing at the aortic bifurcat ion nor in the aortoiliac segments. Also no dissection. GI: No intraluminal contrast extravasation. No bowel obstruction or free air nor abscess. No coliti s pattern. LIVER: There are no focal hepatic lesions nor dilatation of intrahepatic ducts. GALLBLADDER/BILIARY: No obvious gallbladder pathology. CBD is not dilated. PANCREAS: No evidence of pancreatic mass nor dilatation of the pancreatic duct. SPLEEN: Spleen is not enlarged. There are no intrasplenic lesions. Splenic and portal veins are mac nt. ADRENALS: There are no significant adrenal masses. KIDNEYS: No cysts evident. No calculi nor hydronephrosis. No solid renal masses. ABDOMINAL AORTA: The abdominal aorta is not enlarged. LYMPH NODES: There is no retroperitoneal nor para-aortic adenopathy. No obvious mesenteric masses. ABDOMINAL WALL: No evidence of significant anterior abdominal wall hernia. GI: There is no evidence of bowel obstruction, free air, nor abscess. PELVIS: LYMPH NODES: There is no intrapelvic nor inguinal adenopathy. GI: No evidence of appendicitis.No evidence of sigmoid diverticulitis. URINARY BLADDER: No calculi nor masses evident REPRODUCTIVE: Uterus and adnexal regions appear age-appropriate. There is no free fluid in the pelvi s. OSSEOUS: No significant osseous lesions. IMPRESSION: 1. No significant findings in the abdomen and pelvis. 2. No evidence of active hemorrhage, as per request. RADIATION DOSE DELIVERED: 2,184.33mGy.cm Total DLP DATA REPOSITORY: All CT scans at this facility are submitted to the National Radiology Data Registry (NRDR) Dose Index Registry (DIR) with the [employer] (ACR). RADIATION OPTIMIZATION: All CT scans at this facility use at least one of these dose optimization te chniques: automated exposure control; mA and/or kV adjustment per patient size (includes targeted exa ms where dose is matched to clinical indication); or iterative reconstruction.
--- NOTE | 2024-08-27 18:53 | ED.GENADUL_ITS ---
Discharge Plan Disposition Patient Disposition: Against Medical Advice Condition: Stable Discharge Details Clinical Impression: Abdominal pain of unknown cause, Pelvic pain Primary Care Provider: Niyah Serna ED Provider: Douglas Keith Home Meds and New Rx's Prescriptions: Continued melatonin 3 mg tablet 6 mg PO HS medroxyprogesterone 150 mg/mL syringe 150 mg IM [id number] Qty: 1 5RF labetalol 100 mg tablet 100 mg PO QAM Patient Comments: 1/2 Tab QAM Ozempic 0.25 mg or 0.5 mg (2 mg/3 mL) pen injector 0.25 mg subcut QWEEK Patient Comments: takes Qthursdays Rx Instructions: for 4 weeks quetiapine 25 mg tablet 25 mg PO BID docusate sodium 100 mg capsule 100 mg PO DAILY pantoprazole 40 mg Tablet,Delayed Release (Dr/Ec) 40 mg PO QAM clonidine HCl 0.2 mg tablet 0.2 mg PO QHS cholecalciferol (vitamin D3) 50 mcg (2,000 unit) capsule 50 mcg PO DAILY buspirone 7.5 mg tablet 7.5 mg PO BID (DME) lancets [OneTouch Delica Plus Lancet] 33 gauge misc MISCELLANEOUS Patient Comments: TEST BLOOD SUGAR ONCE DAILY ondansetron 4 mg tablet,disintegrating 4 mg PO Q8H PRN (Reason: nausea and vomiting) Qty: 14 0RF polyethylene glycol 3350 [Miralax] 17 gram/dose powder 17 g PO DAILY Qty: 119 0RF glimepiride 1 mg tablet 1 mg PO DAILY Qty: 14 0RF Rx Instructions: at your largest meal Discharge Instructions Instructions: Abdominal Pain, Adult ED, Pelvic Pain ED Additional Instructions: You were seen in the emergency department for your lower abdominal pain/pelvic pain with reported scant rectal bleeding and waxing and waning vaginal bleeding, your hemoglobin is normal making this not a significant or dangerous bleed at this time unless it severely increases or does not rena at all and you become dizzy and weak-please return to the ER for any of the symptoms. Your laboratory workup shows no suspicion for infection and your CT imaging is negative for any acute pathology. You refused pelvic and rectal exam from male ER provider this evening. I did speak with [facility] upstairs and we are going to schedule you for an outpatient pelvic ultrasound tomorrow we will follow-up with a women's wellness provider for results of this ultrasound and possible pelvic exam. Due to your refusal of certain exams I am going to have you sign out AGAINST MEDICAL ADVICE as we are not definitively diagnosing your condition, you acknowledge this danger of possible continued bleeding and undiagnosed condition, even possibly but this is unlikely and you can always return if you are having worsening. Please use therapeutic dosing of Tylenol (acetamenophen) & Advil (ibuprofen) in an alternating fashion as follows: Take 1000mg of Tylenol every 6 hours without missing doses- that is 4 times per day. [place] in between the Tylenol dosings, take 400-600mg of Advil also on a 6 hour schedule, that is also 4 times per day. The daily maximum dosing of Tylenol is 4000mg, and the daily maximum dosing of Advil is 2400mg. This is safe to do for weeks. Please note that some common cold medications & prescription pain medications may contain acetamenophen and you need to read OTC drug labels and factor that in to maximum daily dosings. Please return for severe increase in vaginal bleeding or rectal bleeding, weakness, feeling like you are going to pass out, fever Referrals: [facility] [Provider Group] Niyah Serna [Primary Care Provider] - [facility] General Date/Time Provider Initiated Documentation: 08/27/24 18:46 . HPI Narrative: 29 year-old female presents to ED today by POV/ambulating with a chief complaint of severe lower abdominal pain, rectal bleeding when wiping with onset ongoing all week, reports liquid bloody stool, bleeding started 4 hours ago today. Quality described as severe lower abdominal pain, denies bleeding from her vagina, denies vaginal pain to provider, no radiation to fever, intractable nausea or vomiting, black stools, upper abdominal pain, palpitations, endorses chills. Severity is described as 10/10. Palliating factors include nothing specific attempted. Provoking factors include nothing specific. Events leading up to the incident/Associated Symptoms: Complex medical history, IBS, family history of colon cancer, steatosis of liver, [place], diabetes, CKD, cognitive impairment. Patient not anticoagulated. Related Data Home Medications ?Medication ?Instructions ?Recorded ?Confirmed labetalol 100 mg tablet 100 mg PO QAM 09/25/21 08/27/24 melatonin 3 mg tablet 6 mg PO HS 09/25/21 08/27/24 pantoprazole 40 mg tablet,delayed 40 mg PO QAM 11/22/22 08/27/24 release clonidine HCl 0.2 mg tablet 0.2 mg PO QHS 02/15/23 08/27/24 docusate sodium 100 mg capsule 100 mg PO DAILY 03/24/23 08/27/24 quetiapine 25 mg tablet 25 mg PO BID 03/24/23 08/27/24 semaglutide 0.25 mg or 0.5 mg (2 0.25 mg subcut QWEEK 08/11/23 08/27/24 mg/3 mL) subcutaneous pen injector ([employer]) medroxyprogesterone 150 mg/mL 150 mg IM [id number] #1 mL 11/14/23 08/27/24 intramuscular syringe lancets 33 gauge (OneTouch Deltorrey 04/17/24 08/27/24 Plus Lancet) ondansetron 4 mg disintegrating 4 mg PO Q8H PRN nausea and 04/17/24 08/27/24 tablet vomiting #14 tabs buspirone 7.5 mg tablet 7.5 mg PO BID 05/11/24 08/27/24 cholecalciferol (vitamin D3) 50 50 mcg PO DAILY 05/11/24 08/27/24 mcg (2,000 unit) capsule polyethylene glycol 3350 17 17 g PO DAILY #119 grams 05/24/24 08/27/24 gram/dose oral powder (Miralax) glimepiride 1 mg tablet 1 mg PO DAILY #14 tabs 08/01/24 08/27/24 Previous Rx's ?Medication ?Instructions ?Recorded medroxyprogesterone 150 mg/mL 150 mg IM [id number] #1 mL 11/14/23 intramuscular syringe ondansetron 4 mg disintegrating 4 mg PO Q8H PRN nausea and 04/17/24 tablet vomiting #14 tabs polyethylene glycol 3350 17 17 g PO DAILY #119 grams 05/24/24 gram/dose oral powder (Miralax) glimepiride 1 mg tablet 1 mg PO DAILY #14 tabs 08/01/24 Allergies Allergy/AdvReac Type Severity Reaction Status Date / Time fluticasone (From Flovent Allergy Severe unknown Verified 08/27/24 18:41 HFA) lisinopril Allergy Intermediate unknown Verified 08/27/24 18:41 paroxetine HCl (From Paxil) Allergy Intermediate Hives Verified 08/27/24 18:41 risperidone (From Risperdal) Allergy Intermediate Hives Verified 08/27/24 18:41 NSAIDS (Non-Steroidal Allergy Due to Verified 08/27/24 18:41 Anti-Inflamma prior kidney damage fluoxetine AdvReac Intermediate Vomiting,di Verified 08/27/24 18:41 arrhea ibuprofen AdvReac Intermediate vomiting Verified 08/27/24 18:41 naproxen (From Aleve) AdvReac Intermediate vomiting Verified 08/27/24 18:41 sertraline AdvReac Intermediate WEIRD Verified 08/27/24 18:41 FEELING OVER MY BODY acetaminophen AdvReac Nausea Unverified 08/27/24 18:41 amoxicillin AdvReac Nausea Verified 08/27/24 18:41 seafood Allergy Intermediate unknown Uncoded 08/27/24 18:41 enviornmental Allergy Mild sneezing Uncoded 08/27/24 18:41 dark sodas AdvReac Severe BAD FOR Uncoded 08/27/24 18:41 MY KIDNEYS General Stated Complaint: Abd Prob MARY KAY: 3 Review of Systems All systems reviewed & are unremarkable except as noted in HPI and below Exam Narrative Exam Narrative: GENERAL APPEARANCE: Well-nourished, non-toxic, awake and alert, atraumatic, no acute distress-was observed calmly waiting in waiting room without pain response. SKIN: Warm, pink, dry, intact, without rashes/lesions/ulcerations. HEAD: Normocephalic, atraumatic, normal hair distribution for gender/age. EYES: Normal conjunctiva, no exudates on lids/lashes. ENT: Nares patent, no circumoral cyanosis, no facial swelling NECK: Supple, trachea midline, painless cervical ROM. LUNGS/CHEST: Lungs CTA bilaterally-no rhonchi/rales/wheezes diffusely, non- labored respirations, normal A/P diameter, symmetrical expansion, no chest wall deformity HEART (CV/PV): Regular rate and rhythm without murmur, no peripheral edema, no JVD. ABDOMEN: Soft, non-distended, no guarding, diffuse lower abdominal tenderness without Rovsing's, negative Mortensen sign, no CVA tenderness to percussion bilaterally MSK: Normal ROM, no swelling/deformity to bilateral UEs or LEs, moving all extremities without weakness, no cyanosis, spine midline without tenderness, n ormal curvature. NEURO: Mental Status AAOx4 - alert to person, place, time, events No facial droop, no forehead involvement. Motor: No focal weakness - strength 5/5 in bilateral UEs and LEs, proximal and distal, symmetric. Sensory: sensation intact to light touch globally. Gait normal: patient ambulated without ataxia into ED room. PSYCH: euthymic, cooperative, pleasant, appropriate speech Course Vital Signs Vital signs: Vital Signs Temperature 36.6 C 08/27/24 18:36 Pulse 120 H 08/27/24 18:36 Respiratory Rate 18 08/27/24 18:36 Blood Pressure 161/110 H 08/27/24 18:36 Pulse Oximetry 98 08/27/24 18:36 Temperature 36.6 C 08/27/24 18:36 Pulse 120 H 08/27/24 18:36 Respiratory Rate 18 08/27/24 18:36 Blood Pressure 161/110 H 08/27/24 18:36 Pulse Oximetry 98 08/27/24 18:36 Pain Level 10 08/27/24 18:36 Medical Decision Making This dictation utilizes [id number] dictation software and may contain unedited grammatical errors. 29 year-old female presents to ED today by POV/ambulating with a chief complaint of severe lower abdominal pain, rectal bleeding when wiping with onset ongoing all week, reports liquid bloody stool, bleeding started 4 hours ago today. Quality described as severe lower abdominal pain, denies bleeding from her vagina, denies vaginal pain to provider, no radiation to fever, intractable nausea or vomiting, black stools, upper abdominal pain, palpitations, endorses chills. Severity is described as 10/10. Palliating factors include nothing specific attempted. Provoking factors include nothing specific. Events leading up to the incident/Associated Symptoms: Complex medical history, IBS, family history of colon cancer, steatosis of liver, [place], diabetes, CKD, cognitive impairment. Family and social history: lives at home, has care providers. Pertinent exam findings / vital signs include severe lower abdominal tenderness, no epigastric tenderness, negative Mortensen's, tachycardic, benign pulmonary exam, neuro intact. Patient waited until the 4-1/2-hour buster when CT resulted negative to state that actually the pain is coming from her private parts but refuses to have a male provider or an ED provider examine her states she usually has this done either upstairs or at [facility] by a familiar provider due to PTSD history, offers to do self swabs Differential / pathologies of concern include diverticulitis, hemorrhoids, gastroenteritis, colitis, GI bleeding, neoplasm of colon, mesenteric ischemia. Diagnostic studies of: -CBC, CMP, magnesium, lipase, lactate, procalcitonin, urinalysis, blood cultures, CTA abdomen/pelvis with contrast. -CBC shows no leukocytosis, no anemia -Lactate 1.9, procalcitonin negative-do not suspect sepsis -CMP shows no actionable abnormality -magnesium WNL -Lipase negative -UA shows blood -Blodo Cx's pending -CTA ABD/pelvis w contrast shows no acute pathology Added on vaginal pathogens, and NG/GC for sendout, can follow with [facility] provider tomorrow for results. Interventions of: -1 g IV Tylenol, 4 mg IV Zofran, 0.5 mg IV hydromorphone every 4hrs. ED Course/Assessment/Plan: 29-year-old female presents with lower abdominal pain, states scant rectal bleeding that resolves with second or third wipe when she poops, states that she is also having some vaginal bleeding but it waxes and wanes, states that she has not going through excessive amounts of pads, patient refused pelvic exam and rectal exam by a male ED provider, states she would like to have this done upstairs or at her familiar provider. Discussed with woman's wellness provider Rachana Peck CNM, does find it reasonable to discharge stable HgB, no sign of infection on labs, negative i ing, have outpatient U/S scheduled tomorrow- send off vag path/ng/gc and see a [facility] provider after her U/S tomorrow. Findings not consistent with PID, TOA, diverticulitis, GI hemorrhage, anemia, sepsis, UTI. Disposition of Abdominal Pain of Unknown Cause, Pelvic Pain. Patient verbalized understanding of the plan and return to ED criteria and engaged in shared decision making. Medical Records Medical records reviewed: Yes I reviewed the patient's medical records. Imaging Data Radiologic Study: Attestation: I personally reviewed and interpreted this imaging study as follows: Imaging: CT Scan Radiologist's impression: Exam: CTA Abdomen and Pelvis Without And With Contrast Exam date and time: 08/27/2024 9:15 PM Age: 29 years old Clinical indication: Other: Severe lower abd pain, rectal bleeding TECHNIQUE: Imaging protocol: Computed tomographic angiography of the abdomen and pelvis without and with contrast. Exam focused on the arteries. 3D rendering (Not supervised by radiologist): MIP and/or 3D reconstructed images were created by the technologist. Contrast material: OMNIPAQUE 350; Contrast volume: 100 ml; Contrast route: INTRAVENOUS (IV); COMPARISON: CT ABDOMEN PELVIS CTA 03/20/2024 7:33 PM FINDINGS: Aorta: No aortic aneurysm. No aortic dissection. Celiac trunk and mesenteric arteries: No occlusion or significant stenosis. Renal arteries: No occlusion or significant stenosis. Right iliac arteries: No occlusion or significant stenosis. Left iliac arteries: No occlusion or significant stenosis. Liver: No mass. Gallbladder and biliary ducts: Unremarkable. No calcified stones. No ductal dilation. Pancreas: Unremarkable. No mass. No ductal dilation. Spleen: Unremarkable. No splenomegaly. Adrenal glands: Unremarkable. No mass. Kidneys and ureters: Unremarkable. No solid mass. No hydronephrosis. Stomach and bowel: Unremarkable. No obstruction. No mucosal thickening. Appendix: No evidence of appendicitis. Intraperitoneal space: Unremarkable. No free air. No significant fluid collection. Lymph nodes: Unremarkable. No enlarged lymph nodes. Urinary bladder: Unremarkable. No mass. Reproductive: Unremarkable as visualized. Bones/joints: No acute fracture. Soft tissues: Unremarkable. IMPRESSION: No acute abdominal or pelvic process. No evidence of active hemorrhage. Dictated and Authenticated by: Felicia Dickinson MD. Lab Data Lab results reviewed: Yes I reviewed the patient's lab results. Labs: 08/27/24 20:03 Blood Blood Culture - Pending 08/27/24 19:55 Blood Blood Culture - Pending Laboratory Tests Range/Units 08/27/24 08/27/24 19:55 21:14 WBC (4.4-10.8) 10^3/uL 9.64 RBC (3.93-5.22) 10^6/uL 5.88 H Hgb (11.2-15.7) g/dL 13.2 Hct (36.0-46.0) % 43.1 MCV (80-95) fL 73 L MCH (27.0-33.0) pg 22.4 L MCHC (32.0-36.0) % 30.6 L RDW (11.7-14.6) % 15.5 H Plt Count (130-400) 10^3/uL 256 MPV (8.0-11.0) fL Immature Gran % % 0.2 Neutrophils % % 65.8 Lymphocytes % % 23.9 Monocytes % % 8.2 Eosinophils % % 1.2 Basophils % % 0.7 Nucleated RBC % (0.0-0.3) % 0.0 Absolute Neutrophils (1.2-6.7) 10^3/uL 6.34 Absolute Lymphocytes (1.2-3.4) 10^3/uL 2.30 Absolute Monocytes (0.1-0.8) 10^3/uL 0.79 Absolute Eosinophils (0.0-0.7) 10^3/uL 0.12 Absolute Basophils (0.0-0.2) 10^3/uL 0.07 RBC Morphology See Below Microcytosis 1+ VBG Lactate (0.6-1.4) mmol/L 1.9 H Sodium (136-145) mmol/L 140 Potassium (3.5-5.1) mmol/L 3.8 Chloride (98-107) mmol/L 105 Carbon Dioxide (21.0-32.0) mmol/L 24.2 Anion Gap (3-11) mmol/L 10.8 BUN (7-18) mg/dL 9 Creatinine (0.55-1.02) mg/dL 0.8 Est GFR (CKD-EPI 2020) (mL/min/1.73m2) 103.50 Glucose (74-106) mg/dL 154 H Calcium (8.5-10.1) mg/dL 9.2 Magnesium (1.8-2.4) mg/dL 1.9 Total Bilirubin (0.2-1.0) mg/dL 0.35 AST (15-37) U/L 17 ALT (14-59) U/L 43 Alkaline Phosphatase (46-116) U/L 131 H Total Protein (6.4-8.2) g/dL 7.9 Albumin (3.4-5.0) g/dL 3.7 Lipase (16-77) U/L 27 Procalcitonin ng/mL < 0.1 Urine Color (Yellow) Yellow Urine Clarity (Clear) Sl Cloudy Urine pH (5-8) 6.5 Ur Specific [place] (1.005-1.025) >= 1.030 H Urine Protein (Neg-Trace) mg/dL 100 H Urine Ketones (Negative) mg/dL Negative Urine Blood (Negative) Large H Urine Nitrite (Negative) Negative Urine Bilirubin (Negative) Negative Urine Urobilinogen (Up to 0.2) mg/dL 0.2 Ur Leukocyte Esterase (Negative) Negative Urine RBC (0-2) HPF 20-50 H Urine WBC (0-5) HPF Negative Ur Epithelial Cells (Negative) HPF Rare Urine Crystals (Negative) HPF Negative Urine Bacteria (Negative) HPF Negative Urine Mucus (Negative) Trace Ur Culture Indicated? No Urine Glucose (Negative) mg/dL 100 H Quality:SDOH Health Related Social Needs: Health related social needs inadequate housing(Z59.1) PFSH All Active Problems (Updated 08/27/24 @ 23:13 by HARRISON Carmona) Pelvic pain (Acute) Abdominal pain of unknown cause (Acute) Diabetes (Chronic) Acute hyperglycemia (Acute) Pharyngitis (Acute) Breakthrough bleeding on depo provera (Acute) Encounter for Depo-Provera contraception (Acute) Since 2017. Nicotine dependence (Acute) Contraception, generic surveillance (Acute) Hx of OCPs, Nexplanon, DepoProvera. 02/2023 Norethindrone 0.35mg till 05/2023. Resumed DepoProvera. 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 Hypertrophy of tonsils and adenoids Suicidal ideation Bipolar 2 disorder RBC microcytosis Vitamin D deficiency Steatosis of liver Back pain Dysuria Abdominal pain History of allergic reaction Hemolytic uremic syndrome PTSD (post-traumatic stress disorder) Mesenteric lymphadenitis Drug abuse, episodic use SASHA (stress urinary incontinence, female) Pain, dental Blood in stool History of mastoiditis Jaw pain TMJ tenderness, left Otalgia, right ear BMI 40.0-44.9, adult Overactive bladder (02/09/18) Generalized headaches (12/31/16) Depression (12/31/16) Depo-Provera contraceptive status (09/13/17) Depo-Provera contraception since 08/11/2017. Patient is using the Depo- Provera for menstrual cycle control. ADHD (attention deficit hyperactivity disorder) (12/31/16) Surgical History History of colonoscopy (~06/2022) Hx of tooth extraction History of kidney surgery Social History Smoking/Tobacco Use Status: Never Second Hand Exposure: No Smoking risk assessment performed?: Yes Alcohol Intake: current Alcohol Intake frequency: a few times a week Alcohol type: beer and hard liquor Drug use: Never Substance use type: does not use Caregiver/Support person: Yes Housing: apartment Sexually active: Yes (female partner only now(May 2022). 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
[2024-08-27 20:14] LABS: Lactate 1.9 mmol/L (0.6-1.4)
[2024-08-27 20:16] LABS: Abs Immature Grans 0.02 10^3/uL (0.0-0.06); Absolute Basophil Count 0.07 10^3/uL (0.0-0.2); Absolute Eosinophil Count 0.12 10^3/uL (0.0-0.7); Absolute Monocyte Count 0.79 10^3/uL (0.1-0.8); Absolute Neutrophil Count 6.34 10^3/uL (1.2-6.7); Basophils % 0.7 %; Eosinophils % 1.2 %; HCT 43.1 % (36.0-46.0); HGB 13.2 g/dL (11.2-15.7); Immature Grans % 0.2 %; Lymphocytes % 23.9 %; MCH 22.4 pg (27.0-33.0); MCHC 30.6 % (32.0-36.0); MCV 73 fL (80-95); Monocytes % 8.2 %; Neutrophils % 65.8 %; Platelet Count 256 10^3/uL (130-400); RBC 5.88 10^6/uL (3.93-5.22); RDW 15.5 % (11.7-14.6); WBC 9.64 10^3/uL (4.4-10.8)
[2024-08-27] MEDS: Normal Saline - Diluent 50 ML VIAL IJ (20:31)
[2024-08-27] MEDS: Omnipaque 350 MG/ML 100 ML BTL IJ (20:31)
[2024-08-27 20:32] LABS: Diff Comment RBC Morph Reviewed; Microcytosis 1+
[2024-08-27 20:33] LABS: Magnesium 1.9 mg/dL (1.8-2.4)
[2024-08-27 20:37] LABS: ALT 43 U/L (14-59); AST 17 U/L (15-37); Albumin 3.7 g/dL (3.4-5.0); Alkaline Phosphatase 131 U/L (46-116); Anion Gap 10.8 mmol/L (3-11); BUN 9 mg/dL (7-18); Bilirubin, Total 0.35 mg/dL (0.2-1.0); CO2 24.2 mmol/L (21.0-32.0); CREATININE 0.8 mg/dL (0.55-1.02); Calcium 9.2 mg/dL (8.5-10.1); Chloride 105 mmol/L (98-107); Glucose 154 mg/dL (74-106); Lipase 27 U/L (16-77); Potassium 3.8 mmol/L (3.5-5.1); Sodium 140 mmol/L (136-145); Total Protein 7.9 g/dL (6.4-8.2)
[2024-08-27] MEDS: Normal Saline 1,000 ML 1000 ML IV (21:03)
[2024-08-27] MEDS: Ondansetron 4 MG/2 ML VIAL IVP (21:03)
[2024-08-27] MEDS: HYDROmorphone 2 MG/ML SYR 0.5 MG IVP (21:03)
[2024-08-27] MEDS: ACETAMINOPHEN 1,000 MG/100 ML BTL 400 MG IVPB (21:03)
[2024-08-27 21:12] LABS: Procalcitonin < 0.1 ng/mL
[2024-08-27 21:35] LABS: Bilirubin Negative (Negative); Blood Large (Negative); Clarity Sl Cloudy (Clear); Glucose 100 mg/dL (Negative); Ketones Negative (Negative); Leukocyte Esterase Negative (Negative); Nitrite Negative (Negative); Specific Gravity >= 1.030 (1.005-1.025); Urobilinogen 0.2 mg/dL (Up to 0.2); pH 6.5 (5-8)
[2024-08-27 21:52] LABS: Bacteria Negative HPF (Negative); Crystals Negative HPF (Negative); Epithelial Cells Rare HPF (Negative); RBC 20-50 HPF (0-2); WBC Negative HPF (0-5)
[2024-08-27 21:53] LABS: C & S Indicated? No; Mucus Trace (Negative)
--- NOTE | 2024-08-27 22:47 | DI.VRAD_ITS ---
PROCEDURE INFORMATION: Exam: CTA Abdomen and Pelvis Without And With Contrast Exam date and time: 08/27/2024 9:15 PM Age: 29 years old Clinical indication: Other: Severe lower abd pain, rectal bleeding TECHNIQUE: Imaging protocol: Computed tomographic angiography of the abdomen and pelvis without and with contrast. Exam focused on the arteries. 3D rendering (Not supervised by radiologist): MIP and/or 3D reconstructed images were created by the technologist. Contrast material: OMNIPAQUE 350; Contrast volume: 100 ml; Contrast route: INTRAVENOUS (IV); COMPARISON: CT ABDOMEN PELVIS CTA 03/20/2024 7:33 PM FINDINGS: Aorta: No aortic aneurysm. No aortic dissection. Celiac trunk and mesenteric arteries: No occlusion or significant stenosis. Renal arteries: No occlusion or significant stenosis. Right iliac arteries: No occlusion or significant stenosis. Left iliac arteries: No occlusion or significant stenosis. Liver: No mass. Gallbladder and biliary ducts: Unremarkable. No calcified stones. No ductal dilation. Pancreas: Unremarkable. No mass. No ductal dilation. Spleen: Unremarkable. No splenomegaly. Adrenal glands: Unremarkable. No mass. Kidneys and ureters: Unremarkable. No solid mass. No hydronephrosis. Stomach and bowel: Unremarkable. No obstruction. No mucosal thickening. Appendix: No evidence of appendicitis. Intraperitoneal space: Unremarkable. No free air. No significant fluid collection. Lymph nodes: Unremarkable. No enlarged lymph nodes. Urinary bladder: Unremarkable. No mass. Reproductive: Unremarkable as visualized. Bones/joints: No acute fracture. Soft tissues: Unremarkable. IMPRESSION: No acute abdominal or pelvic process. No evidence of active hemorrhage. Dictated and Authenticated by: Felicia Dickinson MD. Ordering:LIBERTY Cole MD
[2024-08-27 23:21] VITALS: BP 173/107; PULSE 87; RESP 16; TEMP 36.4; O2SAT 99
--- NOTE | 2024-08-28 09:38 | W.ED.FU ---
Follow Up Plan: Patient was seen here yesterday and assessed by Douglas Keith PA-C. In his note it did recommend that patient have outpatient pelvic ultrasound today. As these orders did not appear to have crossed over, these orders were placed by myself.
--- NOTE | 2024-08-28 10:02 | NUR.NOTE ---
Faxed to [facility] outpatient US order for pelvis and transvaginal, for pelvic pain, abnormal bleeding, to follow up with [facility] to be done KAMILAH. Nursing Note:
[2024-08-29 12:08] LABS: Chlamydia Result Negative (Negative); GC Result Negative (Negative)
== END 2024-08-27 23:21 | disposition left against medical advice (07) ==
PROVIDERS: Emergency Provider Physician Assistant; PCP Nurse Practitioner Family
DX: R10.2 Pelvic and perineal pain (principal); R10.30 Lower abdominal pain, unspecified; E11.9 Type 2 diabetes mellitus without complications; I10 Essential (primary) hypertension; Z79.84 Long term (current) use of oral hypoglycemic drugs
CPT/HCPCS: 36410; 80053; 81025; 82962; 83690; 84145; 87040; 87077; 87491; 87591; 96361; 96365; 96375; 99285; 74174; 81003; 81015; 83605; 83735; 85025; 87480; 87510; 87660; J0131; J1171; J2405; J3490

== ENCOUNTER 2024-08-28 11:02 | Outpatient (CLI) | payer MEDICAID, SELFPAY ==
--- NOTE | 2024-08-28 | DI.US_ITS ---
Exam(s) US PELVIS TRANSVAGINAL EXAM: US PELVIS TRANSVAGINAL CLINICAL HISTORY: PELVIC PAIN, ABNL BLEEDING, TECHNIQUE: Ultrasound of the pelvis was performed both transabdominal and transvaginal. COMPARISON: CT scan from yesterday was reviewed. FINDINGS: Transabdominal pelvic ultrasound examination was performed. Patient was apparently not able tolerate transvaginal probe Uterus is anteverted and measures 7.2 cm length x 3.3 cm AP x 4.6 cm wide. There are no obvious uterine fibroids. Endometrial thickness measures 7-8 mm. There is no obvious fluid in the endometrial canal. CERVIX: There are no obvious nabothian cysts. RIGHT OVARY: Measures 3.8 x 2.4 x 2.0 cm. Appears unremarkable. No significant cysts nor masses evident in the right ovary. LEFT OVARY: Not seen due to overlying bowel gas. CUL-DE-SAC: No free fluid evident. IMPRESSION: 1. Normal appearing uterus and age-appropriate endometrium. 2. Right ovary appears unremarkable on transabdominal study. 3. Ovary not visualized. Please note that only a transabdominal pelvic ultrasound exam was performed as this patient was not a ble to tolerate transvaginal probe. DATA REPOSITORY:
--- NOTE | 2024-09-01 11:29 | ED.FU.B_ITS ---
Date of service: 09/01/24 Time of Service: 11:29 Follow Up Plan: This patient had 1 blood culture bottles from ED visit last week growing Staphylococcus hominis. She had been seen by [facility] NANNY earlier this week. I attempted to call the patient at home. Her cell phone had unidentified voicemail and I left a message requesting an ED call back. I also attempted to call her guardian, Vicky Barajas. She did not answer did not have a voicemail set up with her names I did not leave a message. At the patient's OB visit from 4 days ago she had a normal blood pressure and heart rate. There was not a documented temperature. Her second blood culture had no growth to date.
== END 2024-08-28 11:22 ==
PROVIDERS: PCP Nurse Practitioner Family; Visit Provider Physician Assistant
DX: N93.9 Abnormal uterine and vaginal bleeding, unspecified (principal)
CPT/HCPCS: 76830; 76856

== ENCOUNTER 2024-09-14 17:27 | Emergency (ER) | payer MEDICAID, SELFPAY ==
[2024-09-14 17:28] VITALS: BP 157/120; PULSE 130; RESP 18; TEMP 36.6; O2SAT 100
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
--- NOTE | 2024-09-14 19:46 | NUR.NOTE ---
Nursing Note: Accessed chart to get contact information due to PT not having ride and phone being .
== END 2024-09-14 19:37 | disposition home or self-care (01) ==
PROVIDERS: Emergency Provider Physician Assistant; PCP Nurse Practitioner Family
DX: S90.31XA Contusion of right foot, initial encounter (principal); V09.20XA Pedestrian injured in traffic accident involving unspecified motor vehicles, initial encounter; Y92.411 Interstate highway as the place of occurrence of the external cause; Y93.01 Activity, walking, marching and hiking
CPT/HCPCS: 99283; 73630

== ENCOUNTER 2024-10-15 18:01 | Emergency (ER) | payer MEDICAID, SELFPAY ==
[2024-10-15 18:05] VITALS: BP 172/126; PULSE 120; RESP 15; TEMP 36.3; O2SAT 98
[2024-10-15 18:11] VITALS: BP 172/126; PULSE 120; RESP 15; TEMP 36.3; O2SAT 96
--- NOTE | 2024-10-15 18:29 | ED.GENADUL_ITS ---
Discharge Plan Disposition Patient Disposition: Home Condition: Stable Discharge Details Clinical Impression: Nausea & vomiting Primary Care Provider: Niyah Serna ED Provider: Miguel May Home Meds and New Rx's Prescriptions: New ondansetron 4 mg tablet,disintegrating 4 mg PO Q8H PRN (Reason: nausea and vomiting) Qty: 30 0RF ondansetron 4 mg tablet,disintegrating 4 mg PO Q8H PRN (Reason: nausea and vomiting) Qty: 30 0RF Continued melatonin 3 mg tablet 6 mg PO HS medroxyprogesterone 150 mg/mL syringe 150 mg IM [id number] Qty: 1 5RF labetalol 100 mg tablet 100 mg PO QAM Patient Comments: 1/2 Tab QAM Ozempic 0.25 mg or 0.5 mg (2 mg/3 mL) pen injector 0.25 mg subcut QWEEK Patient Comments: takes Qthursdays Rx Instructions: for 4 weeks quetiapine 25 mg tablet 25 mg PO BID docusate sodium 100 mg capsule 100 mg PO DAILY pantoprazole 40 mg Tablet,Delayed Release (Dr/Ec) 40 mg PO QAM clonidine HCl 0.2 mg tablet 0.2 mg PO QHS cholecalciferol (vitamin D3) 50 mcg (2,000 unit) capsule 50 mcg PO DAILY buspirone 7.5 mg tablet 7.5 mg PO BID (DME) lancets [OneTouch Delica Plus Lancet] 33 gauge misc MISCELLANEOUS Patient Comments: TEST BLOOD SUGAR ONCE DAILY ondansetron 4 mg tablet,disintegrating 4 mg PO Q8H PRN (Reason: nausea and vomiting) Qty: 14 0RF polyethylene glycol 3350 [Miralax] 17 gram/dose powder 17 g PO DAILY Qty: 119 0RF glimepiride 1 mg tablet 1 mg PO DAILY Qty: 14 0RF Rx Instructions: at your largest meal Discharge Instructions Additional Instructions: Follow-up with your primary care provider within 1 week and discuss when he should have your next dose of Ozempic. If you feel more ill, have persistent vomiting despite the medication or new symptoms such as difficulty breathing return to the emergency department for reevaluation HPI General Mode of arrival: ambulatory . Date/Time Provider Initiated Documentation: 10/15/24 18:05 . Limitations to Documentation: no limitations . Information obtained by: patient . History of Present Illness 29 year old F presents to the emergency department with the chief complaint of nausea, took ozempic 3 days earlier then she should by mistake, described as mild, Patient started experiencing this hour(s) (5) and it has been constant. No relieving factors improve symptom(s), No exacerbating factors reported . Patient notes nausea/vomiting; denies chest pain and shortness of breath. Patient did receive the following treatments prior to arrival, none Related Data Home Medications ?Medication ?Instructions ?Recorded ?Confirmed labetalol 100 mg tablet 100 mg PO QAM 09/25/21 10/15/24 melatonin 3 mg tablet 6 mg PO HS 09/25/21 10/15/24 pantoprazole 40 mg tablet,delayed 40 mg PO QAM 11/22/22 10/15/24 release clonidine HCl 0.2 mg tablet 0.2 mg PO QHS 02/15/23 10/15/24 docusate sodium 100 mg capsule 100 mg PO DAILY 03/24/23 10/15/24 quetiapine 25 mg tablet 25 mg PO BID 03/24/23 10/15/24 semaglutide 0.25 mg or 0.5 mg (2 0.25 mg subcut QWEEK 08/11/23 10/15/24 mg/3 mL) subcutaneous pen injector (Ozempic) medroxyprogesterone 150 mg/mL 150 mg IM [id number] #1 mL 11/14/23 10/15/24 intramuscular syringe lancets 33 gauge (OneTouch Delica 04/17/24 10/15/24 Plus Lancet) ondansetron 4 mg disintegrating 4 mg PO Q8H PRN nausea and 04/17/24 10/15/24 tablet vomiting #14 tabs buspirone 7.5 mg tablet 7.5 mg PO BID 05/11/24 10/15/24 cholecalciferol (vitamin D3) 50 50 mcg PO DAILY 05/11/24 10/15/24 mcg (2,000 unit) capsule polyethylene glycol 3350 17 17 g PO DAILY #119 grams 05/24/24 10/15/24 gram/dose oral powder (Miralax) glimepiride 1 mg tablet 1 mg PO DAILY #14 tabs 08/01/24 10/15/24 ondansetron 4 mg disintegrating 4 mg PO Q8H PRN nausea and 10/15/24 tablet vomiting #30 tabs ondansetron 4 mg disintegrating 4 mg PO Q8H PRN nausea and 10/15/24 tablet vomiting #30 tabs Previous Rx's ?Medication ?Instructions ?Recorded medroxyprogesterone 150 mg/mL 150 mg IM [id number] #1 mL 11/14/23 intramuscular syringe ondansetron 4 mg disintegrating 4 mg PO Q8H PRN nausea and 04/17/24 tablet vomiting #14 tabs polyethylene glycol 3350 17 17 g PO DAILY #119 grams 05/24/24 gram/dose oral powder (Miralax) glimepiride 1 mg tablet 1 mg PO DAILY #14 tabs 08/01/24 ondansetron 4 mg disintegrating 4 mg PO Q8H PRN nausea and 10/15/24 tablet vomiting #30 tabs ondansetron 4 mg disintegrating 4 mg PO Q8H PRN nausea and 10/15/24 tablet vomiting #30 tabs Allergies Allergy/AdvReac Type Severity Reaction Status Date / Time fluticasone (From Flovent Allergy Severe unknown Verified 10/15/24 18:12 HFA) lisinopril Allergy Intermediate unknown Verified 10/15/24 18:12 paroxetine HCl (From Paxil) Allergy Intermediate Hives Verified 10/15/24 18:12 risperidone (From Risperdal) Allergy Intermediate Hives Verified 10/15/24 18:12 NSAIDS (Non-Steroidal Allergy Due to Verified 10/15/24 18:12 Anti-Inflamma prior kidney damage fluoxetine AdvReac Intermediate Vomiting,di Verified 10/15/24 18:12 arrhea ibuprofen AdvReac Intermediate vomiting Verified 10/15/24 18:12 naproxen (From Aleve) AdvReac Intermediate vomiting Verified 10/15/24 18:12 sertraline AdvReac Intermediate WEIRD Verified 10/15/24 18:12 FEELING OVER MY BODY acetaminophen AdvReac Nausea Unverified 10/15/24 18:12 amoxicillin AdvReac Nausea Verified 10/15/24 18:12 seafood Allergy Intermediate unknown Uncoded 10/15/24 18:12 enviornmental Allergy Mild sneezing Uncoded 10/15/24 18:12 dark sodas AdvReac Severe BAD FOR Uncoded 10/15/24 18:12 MY KIDNEYS General Stated Complaint: GenMedical MARY KAY: 3 Review of Systems All systems reviewed & are unremarkable except as noted in HPI and below Constitutional Constitutional: Denies chills, Denies fever(s) and Denies weakness Cardiovascular Cardiovascular: Denies chest pain and Denies dyspnea Respiratory Respiratory: Denies cough and Denies dyspnea Gastrointestinal Gastrointestinal: Denies abdominal pain and Reports nausea Musculoskeletal Musculoskeletal: Denies joint swelling Neurologic Neurologic: Denies weakness Exam Const General: no acute distress Orientation: alert HENCO Head: normal to inspection Ears: external ears normal General nose exam: external nose normal Mouth: moist mucous membranes Eyes General: appearance normal, both eyes and all related structures Neck Neck: normal visual inspection Resp Effort & Inspection: normal respiratory effort and able to speak in complete sentences Cardio Rate: regular rate GI Palpation: soft and nontender Skin General skin exam: no rashes or lesions noted Neuro General: patient alert and patient oriented x3 Extrem General: normal to inspection Psych Mental Status: mental status grossly normal Course Vital Signs Vital signs: Vital Signs Temperature 36.3 C L 10/15/24 18:05 Pulse 120 H 10/15/24 18:05 Respiratory Rate 15 10/15/24 18:05 Blood Pressure 172/126 H 10/15/24 18:05 Pulse Oximetry 98 10/15/24 18:05 Temperature 36.3 C L 10/15/24 18:11 Temperature Source Oral 10/15/24 18:11 Pulse 120 H 10/15/24 18:11 Respiratory Rate 15 10/15/24 18:11 Respiratory Effort Normal 10/15/24 18:11 Blood Pressure 172/126 H 10/15/24 18:11 Blood Pressure Position Sitting 10/15/24 18:11 Pulse Oximetry 96 10/15/24 18:11 Oxygen Delivery Method Room Air 10/15/24 18:11 Oxygen Flow Rate 0 10/15/24 18:05 Medical Decision Making 29-year-old female with a history of type 2 diabetes on Ozempic comes in after she administered a dose of Ozempic 3 days earlier than she is posterior and has had nausea today. Denies any abdominal pain, had 1 episode of vomiting earlier. She is feeling improved but still has some mild nausea. She is well-appearing speaking in full sentences. She has a soft nontender abdomen. Heart rate at triage was 120 on my exam is 90. Mucous membranes are moist. Do not feel IV fluids are indicated, will check for electrolyte abnormality and also signs of DKA. Will treat her symptoms with oral Zofran and reassess. Labs show no significant concerning findings. No ketones in her urine. She is feeling better, tolerating p.o. She is stable for discharge, advised to follow- up with her PCP and discuss when she should take her next dose of Ozempic. Return precautions given Differential Diagnosis Differential Diagnosis: Medication side effects, electrolyte abnormality Quality:[facility] Health Related Social Needs: Health related social needs housing instability, house d, with risk of homelessness(Z59.811), transportation insecurity(Z59.82), problem related to primary support group(Z63.9) PFSH All Active Problems (Updated 10/15/24 @ 19:11 by Miguel May MD) Nausea & vomiting (Acute) Nicotine dependence (Acute) COVID (Acute) Hyperplastic colon polyp (Acute) Rectal polyp (Acute) Chronic kidney disease, stage 1 (Chronic 12/31/16) from renal infection as a child elevated BP resulting 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 Contraception, generic surveillance Hx of OCPs, Nexplanon, DepoProvera. 02/2023 Norethindrone 0.35mg till 05/2023. Resumed DepoProvera. Pt denies intercourse Sleep disturbance Oppositional defiant disorder IBS (irritable bowel syndrome) Anemia Rash, skin Borderline personality disorder Family history of colon cancer Fatigue Illiteracy Per caregiver she is able to read and write, she needs assitance with comprehension of more complex words. Hypertrophy of tonsils and adenoids Suicidal ideation Bipolar 2 disorder RBC microcytosis Vitamin D deficiency Steatosis of liver Back pain Dysuria Abdominal pain History of allergic reaction Hemolytic uremic syndrome PTSD (post-traumatic stress disorder) Mesenteric lymphadenitis Drug abuse, episodic use SASHA (stress urinary incontinence, female) Pain, dental Blood in stool History of mastoiditis Jaw pain TMJ tenderness, left Otalgia, right ear BMI 40.0-44.9, adult Overactive bladder (02/09/18) Generalized headaches (12/31/16) Depression (12/31/16) ADHD (attention deficit hyperactivity disorder) (12/31/16) Surgical History History of colonoscopy (~06/2022) Hx of tooth extraction History of kidney surgery Social History (Updated 09/27/24 @ 17:18 by Va Kelley MD) Smoking/Tobacco Use Status: Never Second Hand Exposure: No Smoking risk assessment performed?: Yes Alcohol Intake: current Alcohol Intake frequency: a few times a week Alcohol type: beer and hard liquor Drug use: Never Substance use type: does not use Caregiver/Support person: Yes Housing: apartment Sexually active: Yes (but has never had intercourse (former female partner)Sep 2024) Do you think of yourself as: bisexual What is your relationship status?: never Panel score (0-1 are the most socially isolated patients): 0 What type of physical activity do you participate in: none Seatbelt use: always Helmet use: Yes Do you feel safe at home: Yes Do you feel safe in your relationship?: Yes Additional Social history: has [facility] services/foster care therapist Female Reproductive History Menstrual control method: progesterone injection History History 0 Para Hx # Term Pregnancies Multiple births Hx # Pregnancies Ectopic pregnancies AB induced Hx Number of Living Children AB spontaneous PAWSS Have you Been Recently Intoxicated or Drunk Within the Last 30 days?: No Have you Ever Experienced Previous Episodes of Alcohol Withdrawal?: No Have you ever Experienced Withdrawal Seizures?: No Have you ever Experienced Delirium Tremens(DT)s?: No Have you ever undergone Alcohol Rehabilitation Treatment (i.e, inpt ot outpatient treatment programs)?: No Have you ever Experienced Blackouts?: No Have you ever Combined Alcohol with other Downers within the last 90 days?: No Have you ever Combined Alcohol with any other Substance of Abuse during the last 90 days?: No Positive Blood Alcohol level on Presentation? [PCS.BAL]: No Evidence of Increased Autonomic Activity (i.e. HR>120, tremor, sweating, agitation, nausea)?: No Result: 0
[2024-10-15 18:53] LABS: Bilirubin Negative (Negative); Blood Negative (Negative); Clarity Clear (Clear); Glucose >=1000 mg/dL (Negative); Ketones Negative (Negative); Leukocyte Esterase Negative (Negative); Nitrite Negative (Negative); Specific Gravity >= 1.030 (1.005-1.025); Urobilinogen 0.2 mg/dL (Up to 0.2)
[2024-10-15 18:59] LABS: BE (Venous) 0 mmol/L (-2-3); HCO3 (Venous) 25 mmol/L (23-28); O2 Sat (Venous) 66 %; TCO2 (Venous) 22 mmol/L (24-29); pCO2 (Venous) 40 mmHg (41-51); pH (Venous) 7.41 (7.31-7.41); pO2 (Venous) 35 mmHg
[2024-10-15 19:00] LABS: Epithelial Cells Few HPF (Negative); RBC 0-2 HPF (0-2); WBC 0-2 HPF (0-5)
[2024-10-15 19:01] LABS: Bacteria Rare HPF (Negative); C & S Indicated? No; Casts 0-2 Coarse Granular LPF (Negative); Crystals Negative HPF (Negative); Mucus Trace (Negative)
[2024-10-15 19:05] LABS: Abs Immature Grans 0.06 10^3/uL (0.0-0.06); Absolute Basophil Count 0.07 10^3/uL (0.0-0.2); Absolute Eosinophil Count 0.16 10^3/uL (0.0-0.7); Absolute Lymphocyte Count 2.04 10^3/uL (1.2-3.4); Basophils % 0.6 %; Eosinophils % 1.4 %; HCT 42.9 % (36.0-46.0); HGB 13.6 g/dL (11.2-15.7); Immature Grans % 0.5 %; MCH 22.9 pg (27.0-33.0); MCHC 31.7 % (32.0-36.0); MCV 72 fL (80-95); Neutrophils % 72.5 %; Platelet Count 289 10^3/uL (130-400); RBC 5.94 10^6/uL (3.93-5.22); RDW 15.2 % (11.7-14.6); RDW-SD 38.8 fL; WBC 11.35 10^3/uL (4.4-10.8)
[2024-10-15 19:08] LABS: Absolute Monocyte Count 0.79 10^3/uL (0.1-0.8); Absolute Neutrophil Count 8.23 10^3/uL (1.2-6.7)
[2024-10-15] MEDS: Ondansetron O.D.T. 4 MG TABEF PO (19:08)
[2024-10-15 19:21] LABS: ALT 32 U/L (14-59); AST 15 U/L (15-37); Albumin 3.9 g/dL (3.4-5.0); Alkaline Phosphatase 116 U/L (46-116); Anion Gap 10.4 mmol/L (3-11); BUN 10 mg/dL (7-18); Bilirubin, Total 0.29 mg/dL (0.2-1.0); CO2 24.6 mmol/L (21.0-32.0); CREATININE 0.9 mg/dL (0.55-1.02); Calcium 9.2 mg/dL (8.5-10.1); Chloride 101 mmol/L (98-107); Estimated GFR 89.86 (mL/min/1.73m2); Glucose 220 mg/dL (74-106); Potassium 4.3 mmol/L (3.5-5.1); Sodium 136 mmol/L (136-145); Total Protein 8.4 g/dL (6.4-8.2)
[2024-10-15 19:28] VITALS: RESP 16
[2024-10-15 19:29] LABS: Diff Comment RBC Morph Reviewed
[2024-10-15 19:30] LABS: Hypochromasia 2+; Microcytosis 1+; Polychromasia Present
[2024-10-15] MEDS: Ondansetron O.D.T. 4 MG TABEF, 3 TABS/BTL PO (19:38)
[2024-10-15 19:46] VITALS: BP 148/92; PULSE 100; RESP 16; O2SAT 96
== END 2024-10-15 19:48 | disposition home or self-care (01) ==
PROVIDERS: Emergency Provider Emergency Medicine; PCP Nurse Practitioner Family
DX: R11.2 Nausea with vomiting, unspecified (principal); E11.9 Type 2 diabetes mellitus without complications; Z79.84 Long term (current) use of oral hypoglycemic drugs; Z79.85 Long-term (current) use of injectable non-insulin antidiabetic drugs
CPT/HCPCS: 36415; 80053; 82805; 82962; 99283; 81003; 81015; 85025

== ENCOUNTER 2024-11-09 01:37 | Outpatient (CLI) | payer MEDICAID, SELFPAY ==
--- NOTE | 2024-11-09 12:03 | W.NUTRFU ---
Date of service: 11/09/24 Time of Service: 09:00 Nutrition Note NOTE: Shannon arrives with special education case manager, Violette for referred nutrition visit for focus on weight mgt. Shannon also Dx with DMII almost 2 years ago. Currently no diabetes meds (states had adverse reactions to some) except semaglutide weekly, which she reports has helped with glucose and makes her less hungry/easy to fullness. checks her glucose at fasting and HS and finds the numbers to be very inconsistent - some over 200, some under...she did not bring log with her. She shared she doesn't have concerns about her weight - feels like she is functioning well at current weight and states it has been stable over a few years now. We discussed some targets for macros and showed her how to enter these in an [employer] resource to ask it to menu plan according to her targets as well as edit according preference and patiño. Also suggested 3 big focus points she can work on tracking and observing how she compares with goals and make changes from the differences she sees...suggested targeting added sugar (<30g per day), fiber (at least 25 g per day) and protein (aiming for 100g per day and choosing plant protein for a significant portion. We discussed the above and she and Violette decided they will look at tracking added sugars and fiber and protein and see where her avereages are compared to above goals and make changes based on this. Gave my card to contact for any desire for follow up, need for additional resources, or if she wants to write down what she ate for 1-3 days and review for suggestions. Time Spent in Nutritional Counseling and Treatment: 25 min
== END 2024-11-09 01:38 | disposition home or self-care (01) ==
LOC: DS 01:37
PROVIDERS: PCP Nurse Practitioner Family; Visit Provider Dietitian, Registered
DX: Z71.3 Dietary counseling and surveillance (principal)
CPT/HCPCS: 00123; 97802

== ENCOUNTER 2024-11-21 17:18 | Emergency (ER) | payer MEDICAID, SELFPAY ==
[2024-11-21 17:18] VITALS: BP 184/137; PULSE 115; RESP 18; O2SAT 98
[2024-11-21 18:41] VITALS: BP 157/111; PULSE 109; RESP 16; TEMP 37.4; O2SAT 97
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
--- NOTE | 2024-11-21 22:42 | W.ED.GENAD ---
Discharge Plan Disposition Patient Disposition: Home Condition: Stable Discharge Details Clinical Impression: Cold exposure, Encounter for screening examination for mental health and behavioral disorders Primary Care Provider: Niyah Serna ED Provider: Leonor Simons Home Meds and New Rx's Prescriptions: Continued melatonin 3 mg tablet 6 mg PO HS medroxyprogesterone 150 mg/mL syringe 150 mg IM [id number] Qty: 1 5RF labetalol 100 mg tablet 100 mg PO QAM Patient Comments: 1/2 Tab QAM Ozempic 0.25 mg or 0.5 mg (2 mg/3 mL) pen injector 0.25 mg subcut QWEEK Patient Comments: takes Qthursdays Rx Instructions: for 4 weeks quetiapine 25 mg tablet 25 mg PO BID docusate sodium 100 mg capsule 100 mg PO DAILY pantoprazole 40 mg Tablet,Delayed Release (Dr/Ec) 40 mg PO QAM clonidine HCl 0.2 mg tablet 0.2 mg PO QHS cholecalciferol (vitamin D3) 50 mcg (2,000 unit) capsule 50 mcg PO DAILY buspirone 7.5 mg tablet 10 mg PO BID ondansetron 4 mg tablet,disintegrating 4 mg PO Q8H PRN (Reason: nausea and vomiting) Qty: 30 0RF ondansetron 4 mg tablet,disintegrating 4 mg PO Q8H PRN (Reason: nausea and vomiting) Qty: 30 0RF (DME) lancets [OneTouch Delica Plus Lancet] 33 gauge misc MISCELLANEOUS Patient Comments: TEST BLOOD SUGAR ONCE DAILY ondansetron 4 mg tablet,disintegrating 4 mg PO Q8H PRN (Reason: nausea and vomiting) Qty: 14 0RF polyethylene glycol 3350 [Miralax] 17 gram/dose powder 17 g PO DAILY Qty: 119 0RF glimepiride 1 mg tablet 1 mg PO DAILY Qty: 14 0RF Rx Instructions: at your largest meal Discharge Instructions Instructions: Screening for Depression Additional Instructions: please talk to your doctor about your blood pressure being elevated wear warm socks and boots when you are outside. please try to get your winter jacket out of storage return should you develop any additional concerns Referrals: Niyah Serna [Primary Care Provider] - 5 days HPI General Date/Time Provider Initiated Documentation: 11/21/24 17:34. HPI Narrative: Padmini Yee is a 29-year-old female with past medical history of mood disorder, hypertension who presents with report of accidentally being locked out of her crisis bed. Patient states that she was out in the cold without a codon for approximately an hour. She states she is concerned that she does not currently have housing. She denies any additional complaints at this time. She states her feet and hands feel cold but they are warming up. Denies any chance of or any additional complaints at this time. Related Data Home Medications ?Medication ?Instructions ?Recorded ?Confirmed labetalol 100 mg tablet 100 mg PO QAM 09/25/21 11/21/24 melatonin 3 mg tablet 6 mg PO HS 09/25/21 11/21/24 pantoprazole 40 mg tablet,delayed 40 mg PO QAM 11/22/22 11/21/24 release clonidine HCl 0.2 mg tablet 0.2 mg PO QHS 02/15/23 11/21/24 docusate sodium 100 mg capsule 100 mg PO DAILY 03/24/23 11/21/24 quetiapine 25 mg tablet 25 mg PO BID 03/24/23 11/21/24 semaglutide 0.25 mg or 0.5 mg (2 0.25 mg subcut QWEEK 08/11/23 11/21/24 mg/3 mL) subcutaneous pen injector ([employer]) medroxyprogesterone 150 mg/mL 150 mg IM [id number] #1 mL 11/14/23 11/21/24 intramuscular syringe lancets 33 gauge (OneTouch Delica 04/17/24 11/21/24 Plus Lancet) ondansetron 4 mg disintegrating 4 mg PO Q8H PRN nausea and 04/17/24 11/21/24 tablet vomiting #14 tabs buspirone 7.5 mg tablet 10 mg PO BID 05/11/24 11/21/24 cholecalciferol (vitamin D3) 50 50 mcg PO DAILY 05/11/24 11/21/24 mcg (2,000 unit) capsule polyethylene glycol 3350 17 17 g PO DAILY #119 grams 05/24/24 11/21/24 gram/dose oral powder (Miralax) glimepiride 1 mg tablet 1 mg PO DAILY #14 tabs 08/01/24 11/21/24 ondansetron 4 mg disintegrating 4 mg PO Q8H PRN nausea and 10/15/24 11/21/24 tablet vomiting #30 tabs ondansetron 4 mg disintegrating 4 mg PO Q8H PRN nausea and 10/15/24 11/21/24 tablet vomiting #30 tabs Previous Rx's ?Medication ?Instructions ?Recorded medroxyprogesterone 150 mg/mL 150 mg IM [id number] #1 mL 11/14/23 intramuscular syringe ondansetron 4 mg disintegrating 4 mg PO Q8H PRN nausea and 04/17/24 tablet vomiting #14 tabs polyethylene glycol 3350 17 17 g PO DAILY #119 grams 05/24/24 gram/dose oral powder (Miralax) glimepiride 1 mg tablet 1 mg PO DAILY #14 tabs 08/01/24 ondansetron 4 mg disintegrating 4 mg PO Q8H PRN nausea and 10/15/24 tablet vomiting #30 tabs ondansetron 4 mg disintegrating 4 mg PO Q8H PRN nausea and 10/15/24 tablet vomiting #30 tabs Allergies Allergy/AdvReac Type Severity Reaction Status Date / Time fluticasone (From Flovent Allergy Severe unknown Verified 11/21/24 17:28 HFA) lisinopril Allergy Intermediate unknown Verified 11/21/24 17:28 paroxetine HCl (From Paxil) Allergy Intermediate Hives Verified 11/21/24 17:28 risperidone (From Risperdal) Allergy Intermediate Hives Verified 11/21/24 17:28 NSAIDS (Non-Steroidal Allergy Due to Verified 11/21/24 17:28 Anti-Inflamma prior kidney damage fluoxetine AdvReac Intermediate Vomiting,di Verified 11/21/24 17:28 arrhea ibuprofen AdvReac Intermediate vomiting Verified 11/21/24 17:28 naproxen (From Aleve) AdvReac Intermediate vomiting Verified 11/21/24 17:28 sertraline AdvReac Intermediate WEIRD Verified 11/21/24 17:28 FEELING OVER MY BODY acetaminophen AdvReac Nausea Unverified 11/21/24 17:28 amoxicillin AdvReac Nausea Verified 11/21/24 17:28 seafood Allergy Intermediate unknown Uncoded 11/21/24 17:28 enviornmental Allergy Mild sneezing Uncoded 11/21/24 17:28 dark sodas AdvReac Severe BAD FOR Uncoded 11/21/24 17:28 MY KIDNEYS General Stated Complaint: ColdExpose MARY KAY: 4 Exam Narrative Exam Narrative: 29-year-old female in no acute distress, calm, cooperative, appropriate alert and oriented, full exam of skin was performed and there is no evidence of frostbite clinically, patient's hands are warm to the touch and feet have great cap refill without any redness or discoloration, no blistering. No suicidal ideation calm, pleasant Course Vital Signs Vital signs: Vital Signs Pulse 115 H 11/21/24 17:18 Respiratory Rate 18 11/21/24 17:18 Blood Pressure 184/137 H 11/21/24 17:18 Pulse Oximetry 98 11/21/24 17:18 Temperature 37.4 C 11/21/24 18:41 Temperature Source Tympanic 11/21/24 18:41 Pulse 109 H 11/21/24 18:41 Respiratory Rate 16 11/21/24 18:41 Respiratory Effort Normal 11/21/24 17:30 Respiratory Depth Normal 11/21/24 17:30 Respiratory Pattern Normal 11/21/24 17:30 Blood Pressure 157/111 H 11/21/24 18:41 Blood Pressure Mean 126 11/21/24 18:41 Blood Pressure Position Sitting 11/21/24 18:41 Pulse Oximetry 97 11/21/24 18:41 Oxygen Delivery Method Room Air 11/21/24 17:18 Oxygen Flow Rate 0 11/21/24 17:18 Pain Level 10 11/21/24 17:18 Medical Decision Making Patient is alert, oriented, calm, and cooperative. She is in no acute distress and there is no evidence of frostbite clinically. Her temperature is 37.4 ?C. I called [facility] to be sure that patient has housing and her garbage pick up worker is actually in the emergency department and will take her back to the house. She had a mental health screening and was deemed safe for discharge home, patient feels comfortable with plan, her blood pressure is elevated and has been persistently elevated over the course of the past several months, she is encouraged to follow-up with her primary care physician regarding this. Return precautions reviewed and patient expressed understanding Quality:SDOH Health Related Social Needs: Health related social needs housing instability, housed, with risk of homelessness (Z59.811), inadequate housing (Z59.1), feeling lonely/isolated (Z60.8) PFSH All Active Problems (Updated 11/21/24 @ 18:46 by HARRISON Nava) Encounter for screening examination for mental health and behavioral disorders (Acute) Cold exposure (Acute) Nicotine dependence (Acute) COVID (Acute) Hyperplastic colon polyp (Acute) Rectal polyp (Acute) Chronic kidney disease, stage 1 (Chronic 12/31/16) from renal infection as a child elevated BP resulting 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 Contraception, generic surveillance Hx of OCPs, Nexplanon, DepoProvera. 02/2023 Norethindrone 0.35mg till 05/2023. Resumed DepoProvera. Pt denies intercourse Sleep disturbance Oppositional defiant disorder IBS (irritable bowel syndrome) Anemia Rash, skin Borderline personality disorder Family history of colon cancer Fatigue Illiteracy Per caregiver she is able to read and write, she needs assitance with comprehension of more complex words. Hypertrophy of tonsils and adenoids Suicidal ideation Bipolar 2 disorder RBC microcytosis Vitamin D deficiency Steatosis of liver Back pain Dysuria Abdominal pain History of allergic reaction Hemolytic uremic syndrome PTSD (post-traumatic stress disorder) Mesenteric lymphadenitis Drug abuse, episodic use SASHA (stress urinary incontinence, female) Pain, dental Blood in stool History of mastoiditis Jaw pain TMJ tenderness, left Otalgia, right ear BMI 40.0-44.9, adult Overactive bladder (02/09/18) Generalized headaches (12/31/16) Depression (12/31/16) ADHD (attention deficit hyperactivity disorder) (12/31/16) Surgical History History of colonoscopy (~06/2022) Hx of tooth extraction History of kidney surgery Social History (Updated 09/27/24 @ 17:18 by Va Kelley MD) Smoking/Tobacco Use Status: Never Second Hand Exposure: No Smoking risk assessment performed?: Yes Alcohol Intake: current Alcohol Intake frequency: a few times a week Alcohol type: beer and hard liquor Drug use: Never Substance use type: does not use Caregiver/Support person: Yes Housing: apartment Sexually active: Yes (but has never had intercourse (former female partner)Sep 2024) Do you think of yourself as: bisexual What is your relationship status?: never Panel score (0-1 are the most socially isolated patients): 0 What type of physical activity do you participate in: none Seatbelt use: always Helmet use: Yes Do you feel safe at home: Yes Do you feel safe in your relationship?: Yes Additional Social history: 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
== END 2024-11-21 18:52 | disposition home or self-care (01) ==
PROVIDERS: Emergency Provider Physician Assistant; PCP Nurse Practitioner Family
DX: T69.9XXA Effect of reduced temperature, unspecified, initial encounter (principal); I10 Essential (primary) hypertension; Z86.59 Personal history of other mental and behavioral disorders; Z59.811 Housing instability, housed, with risk of homelessness; Z59.10 Inadequate housing, unspecified; Z60.8 Other problems related to social environment
CPT/HCPCS: 00123; 99283

== ENCOUNTER 2024-11-30 20:08 | Outpatient (REF) | payer MEDICAID, SELFPAY ==
[2024-11-30 21:05] LABS: Bilirubin Negative (Negative); Blood Negative (Negative); Clarity Clear (Clear); Glucose 250 mg/dL (Negative); Ketones Negative (Negative); Leukocyte Esterase Negative (Negative); Nitrite Negative (Negative); Specific Gravity >= 1.030 (1.005-1.025); Urobilinogen 0.2 mg/dL (Up to 0.2); pH 6.5 (5-8)
== END 2024-11-30 20:09 | disposition home or self-care (01) ==
LOC: LBN 20:08
PROVIDERS: PCP Nurse Practitioner Family; Visit Provider Physician Assistant
DX: N39.0 Urinary tract infection, site not specified (principal); R35.0 Frequency of micturition; N18.1 Chronic kidney disease, stage 1
CPT/HCPCS: 81003; 87480; 87510; 87660

== ENCOUNTER 2024-12-01 20:20 | Outpatient (REF) | payer MEDICAID, SELFPAY ==
[2024-12-01 20:18] LABS: C Diff PCR Negative (Negative)
== END 2024-12-01 20:21 | disposition home or self-care (01) ==
LOC: LBN 20:20
PROVIDERS: PCP Nurse Practitioner Family; Visit Provider Physician Assistant
DX: R19.7 Diarrhea, unspecified (principal)
CPT/HCPCS: 87493; 87177

== ENCOUNTER 2024-12-03 15:23 | Outpatient (CLI) | payer MEDICAID, SELFPAY ==
[2024-12-03 14:38] LABS: ALT 34 U/L (14-59); AST 19 U/L (15-37); Albumin 3.7 g/dL (3.4-5.0); Alkaline Phosphatase 110 U/L (46-116); Anion Gap 13.4 mmol/L (3-11); BUN 7 mg/dL (7-18); Bilirubin, Total 0.47 mg/dL (0.2-1.0); CO2 22.6 mmol/L (21.0-32.0); CREATININE 0.9 mg/dL (0.55-1.02); Calcium 9.4 mg/dL (8.5-10.1); Chloride 103 mmol/L (98-107); Estimated GFR 89.86 (mL/min/1.73m2); Glucose 285 mg/dL (74-106); Potassium 3.9 mmol/L (3.5-5.1); Sodium 139 mmol/L (136-145); Total Protein 7.8 g/dL (6.4-8.2)
== END 2024-12-03 15:24 | disposition home or self-care (01) ==
LOC: LBO 15:25
PROVIDERS: PCP Nurse Practitioner Family; Visit Provider Physician Assistant
DX: N18.1 Chronic kidney disease, stage 1 (principal)
CPT/HCPCS: 36415; 80053

== ENCOUNTER 2024-12-04 20:18 | Emergency (ER) | payer MEDICAID, SELFPAY ==
[2024-12-04 20:55] VITALS: BP 168/111; PULSE 108; RESP 16; TEMP 36.6; O2SAT 99
[2024-12-04 21:40] LABS: Bilirubin Negative (Negative); Blood Negative (Negative); Clarity Clear (Clear); Glucose Negative (Negative); Ketones Trace mg/dL (Negative); Leukocyte Esterase Negative (Negative); Nitrite Negative (Negative); Specific Gravity >= 1.030 (1.005-1.025); Urobilinogen 0.2 mg/dL (Up to 0.2)
[2024-12-04 21:42] LABS: Abs Immature Grans 0.05 10^3/uL (0.0-0.06); Absolute Basophil Count 0.06 10^3/uL (0.0-0.2); Absolute Eosinophil Count 0.15 10^3/uL (0.0-0.7); Absolute Lymphocyte Count 2.24 10^3/uL (1.2-3.4); Absolute Neutrophil Count 7.69 10^3/uL (1.2-6.7); Basophils % 0.5 %; Eosinophils % 1.4 %; HCT 42.7 % (36.0-46.0); HGB 13.3 g/dL (11.2-15.7); Immature Grans % 0.5 %; Lymphocytes % 20.2 %; MCH 22.7 pg (27.0-33.0); MCHC 31.1 % (32.0-36.0); MCV 73 fL (80-95); Monocytes % 7.9 %; Neutrophils % 69.5 %; RBC 5.86 10^6/uL (3.93-5.22); RDW 15.2 % (11.7-14.6); RDW-SD 39.6 fL; WBC 11.07 10^3/uL (4.4-10.8)
[2024-12-04 21:49] LABS: Bacteria Negative HPF (Negative); Casts Negative LPF (Negative); Crystals Negative HPF (Negative); Epithelial Cells Negative HPF (Negative); Mucus Negative (Negative); RBC Negative HPF (0-2); WBC Negative HPF (0-5)
[2024-12-04 21:50] LABS: C & S Indicated? No
[2024-12-04 21:50] LABS: HCG Qual (Serum) Negative
[2024-12-04 21:52] LABS: Absolute Monocyte Count 0.87 10^3/uL (0.1-0.8)
[2024-12-04 21:56] LABS: ALT 33 U/L (14-59); AST 18 U/L (15-37); Alkaline Phosphatase 114 U/L (46-116); BUN 8 mg/dL (7-18); Bilirubin, Total 0.49 mg/dL (0.2-1.0); CREATININE 0.8 mg/dL (0.55-1.02); Calcium 9.6 mg/dL (8.5-10.1); Chloride 104 mmol/L (98-107); Glucose 182 mg/dL (74-106); Lipase 25 U/L (<78); Potassium 3.9 mmol/L (3.5-5.1); Sodium 137 mmol/L (136-145); Total Protein 8.3 g/dL (6.4-8.2)
[2024-12-04] MEDS: Ondansetron O.D.T. 4 MG TABEF PO (21:57)
[2024-12-04] MEDS: Lidocaine 2% Viscous 15 ML CUP PO (21:58)
[2024-12-04 22:01] LABS: Microcytosis 2+
[2024-12-04 22:02] LABS: Platelet Count 272 10^3/uL (130-400)
--- NOTE | 2024-12-05 22:42 | ED.GENADUL_ITS ---
Discharge Plan Disposition Patient Disposition: Eloped Condition: Serious Discharge Details Clinical Impression: Abdominal pain, Nausea & vomiting Primary Care Provider: Niyah Serna ED Provider: Leonor Simons Home Meds and New Rx's Prescriptions: No Action melatonin 3 mg tablet 6 mg PO HS medroxyprogesterone 150 mg/mL syringe 150 mg IM [id number] Qty: 1 5RF labetalol 100 mg tablet 100 mg PO QAM Patient Comments: 1/2 Tab QAM Ozempic 0.25 mg or 0.5 mg (2 mg/3 mL) pen injector 0.25 mg subcut QWEEK Patient Comments: takes Qthursdays Rx Instructions: for 4 weeks quetiapine 25 mg tablet 25 mg PO BID docusate sodium 100 mg capsule 100 mg PO DAILY metronidazole 500 mg tablet 500 mg PO BID 7 Days Qty: 14 0RF pantoprazole 40 mg Tablet,Delayed Release (Dr/Ec) 40 mg PO QAM clonidine HCl 0.2 mg tablet 0.2 mg PO QHS cholecalciferol (vitamin D3) 50 mcg (2,000 unit) capsule 50 mcg PO DAILY buspirone 7.5 mg tablet 10 mg PO BID ondansetron 4 mg tablet,disintegrating 4 mg PO Q8H PRN (Reason: nausea and vomiting) Qty: 30 0RF (DME) lancets [OneTouch Delica Plus Lancet] 33 gauge misc MISCELLANEOUS Patient Comments: TEST BLOOD SUGAR ONCE DAILY glimepiride 1 mg tablet 1 mg PO DAILY Qty: 14 0RF Rx Instructions: at your largest meal Discharge Data Discharge Date/Time-TO BE ENTERED AT DEPARTURE: 12/04/24 22:36 HPI General Date/Time Provider Initiated Documentation: 12/04/24 21:10 . HPI Narrative: This 29-year-old female known to this facility presents with abdominal pain nausea and vomiting. Presumed gravid palpable dates despite taking her meds regarding urgent care. She feels like she has been a ton of bricks in her stomach . She states she is also having some urinary frequency. Denies chance of . Denies blood in vomitus or stools. History of similar symptoms in the past Related Data Home Medications ?Medication ?Instructions ?Recorded ?Confirmed labetalol 100 mg tablet 100 mg PO QAM 09/25/21 12/04/24 melatonin 3 mg tablet 6 mg PO HS 09/25/21 12/04/24 pantoprazole 40 mg tablet,delayed 40 mg PO QAM 11/22/22 12/04/24 release clonidine HCl 0.2 mg tablet 0.2 mg PO QHS 02/15/23 12/04/24 docusate sodium 100 mg capsule 100 mg PO DAILY 03/24/23 12/04/24 quetiapine 25 mg tablet 25 mg PO BID 03/24/23 12/04/24 semaglutide 0.25 mg or 0.5 mg (2 0.25 mg subcut QWEEK 08/11/23 12/04/24 mg/3 mL) subcutaneous pen injector ([employer]) medroxyprogesterone 150 mg/mL 150 mg IM [id number] #1 mL 11/14/23 12/04/24 intramuscular syringe lancets [facility] 04/17/24 12/04/24 Plus Lancet) buspirone 7.5 mg tablet 10 mg PO BID 05/11/24 12/04/24 cholecalciferol (vitamin D3) 50 50 mcg PO DAILY 05/11/24 12/04/24 mcg (2,000 unit) capsule glimepiride 1 mg tablet 1 mg PO DAILY #14 tabs 08/01/24 12/04/24 ondansetron 4 mg disintegrating 4 mg PO Q8H PRN nausea and 10/15/24 12/04/24 tablet vomiting #30 tabs metronidazole 500 mg tablet 500 mg PO BID 7 days #14 tabs 12/03/24 12/04/24 Previous Rx's ?Medication ?Instructions ?Recorded medroxyprogesterone 150 mg/mL 150 mg IM [id number] #1 mL 11/14/23 intramuscular syringe glimepiride 1 mg tablet 1 mg PO DAILY #14 tabs 08/01/24 ondansetron 4 mg disintegrating 4 mg PO Q8H PRN nausea and 10/15/24 tablet vomiting #30 tabs metronidazole 500 mg tablet 500 mg PO BID 7 days #14 tabs 12/03/24 Allergies Allergy/AdvReac Type Severity Reaction Status Date / Time fluticasone (From Flovent Allergy Severe unknown Verified 12/04/24 21:02 HFA) lisinopril Allergy Intermediate unknown Verified 12/04/24 21:02 paroxetine HCl (From Paxil) Allergy Intermediate Hives Verified 12/04/24 21:02 risperidone (From Risperdal) Allergy Intermediate Hives Verified 12/04/24 21:02 NSAIDS (Non-Steroidal Allergy Due to Verified 12/04/24 21:02 Anti-Inflamma prior kidney damage fluoxetine AdvReac Intermediate Vomiting,di Verified 12/04/24 21:02 arrhea ibuprofen AdvReac Intermediate vomiting Verified 12/04/24 21:02 naproxen (From Aleve) AdvReac Intermediate vomiting Verified 12/04/24 21:02 sertraline AdvReac Intermediate WEIRD Verified 12/04/24 21:02 FEELING OVER MY BODY acetaminophen AdvReac Nausea Verified 12/04/24 21:02 amoxicillin AdvReac Nausea Verified 12/04/24 21:02 seafood Allergy Intermediate unknown Uncoded 12/04/24 21:02 enviornmental Allergy Mild sneezing Uncoded 12/04/24 21:02 dark sodas AdvReac Severe BAD FOR Uncoded 12/04/24 21:02 MY KIDNEYS General Stated Complaint: Abd Prob MARY KAY: 3 Exam Narrative Exam Narrative: 29-year-old female presenting with acute discomfort, vomiting, abdomen diffusely tender, acute distress, pallor, alert and oriented x 4, no scleral icterus or jaundice Course Vital Signs Vital signs: Vital Signs Temperature 36.6 C 12/04/24 20:55 Pulse 108 H 12/04/24 20:55 Respiratory Rate 16 12/04/24 20:55 Blood Pressure 168/111 H 12/04/24 20:55 Pulse Oximetry 99 12/04/24 20:55 Temperature 36.6 C 12/04/24 20:55 Temperature Source Temporal Artery Scan 12/04/24 20:55 Pulse 108 H 12/04/24 20:55 Respiratory Rate 16 12/04/24 20:55 Blood Pressure 168/111 H 12/04/24 20:55 Blood Pressure Position Sitting 12/04/24 20:55 Pulse Oximetry 99 12/04/24 20:55 Oxygen Delivery Method Room Air 12/04/24 20:55 Oxygen Flow Rate 0 12/04/24 20:55 Pain Level 10 12/04/24 20:55 Lab/Test Results Lab/Test Results: Laboratory Tests Range/Units 12/04/24 12/04/24 21:11 21:31 WBC (4.4-10.8) 10^3/uL 11.07 H RBC (3.93-5.22) 10^6/uL 5.86 H Hgb (11.2-15.7) g/dL 13.3 Hct (36.0-46.0) % 42.7 MCV (80-95) fL 73 L MCH (27.0-33.0) pg 22.7 L MCHC (32.0-36.0) % 31.1 L RDW (11.7-14.6) % 15.2 H Plt Count (130-400) 10^3/uL 272 MPV (8.0-11.0) fL Immature Gran % % 0.5 Neutrophils % % 69.5 Lymphocytes % % 20.2 Monocytes % % 7.9 Eosinophils % % 1.4 Basophils % % 0.5 Nucleated RBC % (0.0-0.3) % 0.0 Absolute Neutrophils (1.2-6.7) 10^3/uL 7.69 H Absolute Lymphocytes (1.2-3.4) 10^3/uL 2.24 Absolute Monocytes (0.1-0.8) 10^3/uL 0.87 H Absolute Eosinophils (0.0-0.7) 10^3/uL 0.15 Absolute Basophils (0.0-0.2) 10^3/uL 0.06 RBC Morphology See Below Microcytosis 2+ Sodium (136-145) mmol/L 137 Potassium (3.5-5.1) mmol/L 3.9 Chloride (98-107) mmol/L 104 Carbon Dioxide (21.0-32.0) mmol/L 24.0 Anion Gap (3-11) mmol/L 9.0 BUN (7-18) mg/dL 8 Creatinine (0.55-1.02) mg/dL 0.8 Est GFR (CKD-EPI 2020) (mL/min/1.73m2) 103.50 Glucose (74-106) mg/dL 182 H Calcium (8.5-10.1) mg/dL 9.6 Total Bilirubin (0.2-1.0) mg/dL 0.49 AST (15-37) U/L 18 ALT (14-59) U/L 33 Alkaline Phosphatase (46-116) U/L 114 Total Protein (6.4-8.2) g/dL 8.3 H Albumin (3.4-5.0) g/dL 4.0 Lipase (<78) U/L 25 Serum HCG, Qual Negative Urine Color (Yellow) Yellow Urine Clarity (Clear) Clear Urine pH (5-8) 6.0 Ur Specific [place] (1.005-1.025) >= 1.030 H Urine Protein (Neg-Trace) mg/dL >=300 H Urine Ketones (Negative) mg/dL Trace H Urine Blood (Negative) Negative Urine Nitrite (Negative) Negative Urine Bilirubin (Negative) Negative Urine Urobilinogen (Up to 0.2) mg/dL 0.2 Ur Leukocyte Esterase (Negative) Negative Urine RBC (0-2) HPF Negative Urine WBC (0-5) HPF Negative Ur Epithelial Cells (Negative) HPF Negative Urine Crystals (Negative) HPF Negative Urine Bacteria (Negative) HPF Negative Urine Casts (Negative) LPF Negative Urine Mucus (Negative) Negative Ur Culture Indicated? No Urine Glucose (Negative) mg/dL Negative Medical Decision Making 27-year-old female presents with acute distress, agreeable to labs, I did order urinalysis as well, she is mildly got better but the remainder of her labs are reassuring. I did not order CT abdomen pelvis as she has had many acute abnormality and a risk of radiation. I will try giving her antiemetics Pepcid and reassess. Patient was a very upset regarding the length of her stay and she eloped prior to completion of assessment. Patient is alert, oriented, of decisional capacity. I was not able to have an AMA discussion with her as she left prior to being reevaluated. Quality:SDOH Health Related Social Needs: Health related social needs housing instability, house d, with risk of homelessness (Z59.811), inadequate housing (Z59.1), feeling lonely/isolated (Z60.8) PFSH All Active Problems (Updated 12/05/24 @ 22:48 by HARRISON Nava) Nausea & vomiting (Acute) Abdominal pain (Acute) Encounter for screening examination for mental health and behavioral disorders (Acute) Cold exposure (Acute) Nicotine dependence (Acute) COVID (Acute) Hyperplastic colon polyp (Acute) Rectal polyp (Acute) Chronic kidney disease, stage 1 (Chronic 12/31/16) from renal infection as a child elevated BP resulting 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 Contraception, generic surveillance Hx of OCPs, Nexplanon, DepoProvera. 02/2023 Norethindrone 0.35mg till 05/2023. Resumed DepoProvera. Pt denies intercourse Sleep disturbance Oppositional defiant disorder IBS (irritable bowel syndrome) Anemia Rash, skin Borderline personality disorder Family history of colon cancer Fatigue Illiteracy Per caregiver she is able to read and write, she needs assitance with comprehension of more complex words. Hypertrophy of tonsils and adenoids Suicidal ideation Bipolar 2 disorder RBC microcytosis Vitamin D deficiency Steatosis of liver Back pain Dysuria Abdominal pain History of allergic reaction Hemolytic uremic syndrome PTSD (post-traumatic stress disorder) Mesenteric lymphadenitis Drug abuse, episodic use SASHA (stress urinary incontinence, female) Pain, dental Blood in stool History of mastoiditis Jaw pain TMJ tenderness, left Otalgia, right ear BMI 40.0-44.9, adult Overactive bladder (02/09/18) Generalized headaches (12/31/16) Depression (12/31/16) ADHD (attention deficit hyperactivity disorder) (12/31/16) Surgical History History of colonoscopy (~06/2022) Hx of tooth extraction History of kidney surgery Social History Smoking/Tobacco Use Status: Never Second Hand Exposure: No Smoking risk assessment performed?: Yes Alcohol Intake: current Alcohol Intake frequency: a few times a week Alcohol type: beer and hard liquor Drug use: Never Substance use type: does not use Caregiver/Support person: Yes Housing: apartment Sexually active: Yes (but has never had intercourse (former female partner)Sep 2024) Do you think of yourself as: bisexual What is your relationship status?: never Panel score (0-1 are the most socially isolated patients): 0 What type of physical activity do you participate in: none Seatbelt use: always Helmet use: Yes Do you feel safe at home: Yes Do you feel safe in your relationship?: Yes Additional Social history: 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
== END 2024-12-04 22:36 | disposition left against medical advice (07) ==
LOC: ER 20:27
PROVIDERS: Emergency Provider Physician Assistant; PCP Nurse Practitioner Family
DX: R10.9 Unspecified abdominal pain (principal); R11.2 Nausea with vomiting, unspecified; Z59.811 Housing instability, housed, with risk of homelessness; Z60.8 Other problems related to social environment
CPT/HCPCS: 80053; 83690; 99283; 81003; 81015; 84703; 85025

== ENCOUNTER 2024-12-07 17:56 | Emergency (ER) | payer MEDICAID, SELFPAY ==
[2024-12-07 17:57] VITALS: BP 148/88; PULSE 110; RESP 18; TEMP 36.6; O2SAT 98
--- NOTE | 2024-12-07 17:59 | W.ED.GENAD ---
Discharge Plan Disposition Patient Disposition: Home Discharge Details Clinical Impression: Abdominal pain Primary Care Provider: Niyah Serna ED Provider: Luis Armando Schmitz Home Meds and New Rx's Prescriptions: Continued melatonin 3 mg tablet 6 mg PO HS medroxyprogesterone 150 mg/mL syringe 150 mg IM [id number] Qty: 1 5RF labetalol 100 mg tablet 100 mg PO QAM Patient Comments: 1/2 Tab QAM Ozempic 0.25 mg or 0.5 mg (2 mg/3 mL) pen injector 0.25 mg subcut QWEEK Patient Comments: takes Qthursdays Rx Instructions: for 4 weeks quetiapine 25 mg tablet 25 mg PO BID docusate sodium 100 mg capsule 100 mg PO DAILY metronidazole 500 mg tablet 500 mg PO BID 7 Days Qty: 14 0RF pantoprazole 40 mg Tablet,Delayed Release (Dr/Ec) 40 mg PO QAM clonidine HCl 0.2 mg tablet 0.2 mg PO QHS cholecalciferol (vitamin D3) 50 mcg (2,000 unit) capsule 50 mcg PO DAILY buspirone 7.5 mg tablet 10 mg PO BID ondansetron 4 mg tablet,disintegrating 4 mg PO Q8H PRN (Reason: nausea and vomiting) Qty: 30 0RF (DME) lancets [OneTouch [employer] Plus Lancet] 33 gauge misc MISCELLANEOUS Patient Comments: TEST BLOOD SUGAR ONCE DAILY glimepiride 1 mg tablet 1 mg PO DAILY Qty: 14 0RF Rx Instructions: at your largest meal Discharge Instructions Additional Instructions: You are seen in the emergency department for your abdominal pain. Your blood work shows that your kidneys are working well. You have no signs of infection. Please return to the emergency department as we discussed if you begin vomiting and do not stop or if you develop any rash on your abdomen. HPI General Date/Time Provider Initiated Documentation: 12/07/24 17:59. HPI Narrative: MDM This is an overall very well-appearing normothermic but mildly tachycardic 29-year-old female with left upper quadrant tenderness for which she will undergo assessment of labs. No history of ureterolithiasis and no significant flank pain so I am not concerning for ureterolithiasis. No left lower quadrant tenderness nor fevers to making my suspicion low for diverticulitis. No right lower quadrant tenderness to suggest appendicitis and no fevers. Patient has had no abnormal vaginal discharge so I am not suspicious for sexually transmitted infection. Given no lower quadrant pain I am not suspicious for ovarian torsion so I did not feel that the patient required a transvaginal ultrasound. She does have an elevated BMI so we will obtain a lipase to assess for pancreatitis if she is not a drinker. I considered ACS however given her tenderness I was not suspicious for cardiac etiology. Patient has had at least 6 CT scans of her abdomen in the past several years. Given the risk of radiation exposure and the patient's overall well appearance I do not feel that she requires a CT scan of her abdomen at this point. She has been passing gas and has had no surgical history to her abdomen so not suspicious for small bowel obstruction. No rash to abdomen to suggest zoster. No right upper quadrant tenderness to suggest acute cholecystitis. Patient has a number of allergies listed to ibuprofen and acetaminophen so we will defer analgesia at this point in time. I have asked health coordinator Vicky to have the patient establish with a new primary care provider as she reportedly cannot see her old primary care provider. We discussed that she should return to the ED if she develop worsening pain or could not tolerate p.o. She understood her return indications was discharged with an empiric trial of expectant outpatient management. HPI This is a 29-year-old female history of hypertension arrived emergency department via private vehicle in the setting of left-sided abdominal pain. Patient notes that she has had pain in the left side of her abdomen for approximately 3 weeks. She was seen earlier this week and she had blood work and urine but left before her evaluation was completed. Pending acetaminophen. She intermittently feels hot and cold. She was evaluated in the past at [facility]. She has had no vaginal discharge. She denies routine tobacco, ethanol, and illicits. She has had no fevers. No past surgical history to her abdomen. She has been nauseous but has not been vomiting. She has been taking a stool softener and had some diarrhea. She denies exacerbators and alleviators. No falls. No rashes to abdomen. Exam General: Well-appearing in no acute distress speaking in complete sentences. Head: Normocephalic, atraumatic. Eye: Extraocular eye movements intact. No conjunctival injection. No scleral icterus. Ear, nose, mouth, throat: Grossly normal inspection. Normal voice, handling secretions normally. Neck: Trachea midline. Cardiovascular: Well-perfused distal extremities. Respiratory: Nonlabored respiration. Gastrointestinal: Nondistended abdomen. Soft. Minimal left upper quadrant tenderness. No rebound. No guarding. No rash to abdomen. Musculoskeletal: No edema. Moving all 4 extremities spontaneously. Skin: Normal for age and race, grossly normal temperature and turgor. No acute rash. Neurologic: Alert and appropriate, no apparent acute deficits. Psychiatric: Mood and manner are appropriate. Grooming and personal hygiene are appropriate. Related Data Home Medications ?Medication ?Instructions ?Recorded ?Confirmed labetalol 100 mg tablet 100 mg PO QAM 09/25/21 12/07/24 melatonin 3 mg tablet 6 mg PO HS 09/25/21 12/07/24 pantoprazole 40 mg tablet,delayed 40 mg PO QAM 11/22/22 12/07/24 release clonidine HCl 0.2 mg tablet 0.2 mg PO QHS 02/15/23 12/07/24 docusate sodium 100 mg capsule 100 mg PO DAILY 03/24/23 12/07/24 quetiapine 25 mg tablet 25 mg PO BID 03/24/23 12/07/24 semaglutide 0.25 mg or 0.5 mg (2 0.25 mg subcut QWEEK 08/11/23 12/07/24 mg/3 mL) subcutaneous pen injector ([employer]) medroxyprogesterone 150 mg/mL 150 mg IM [id number] #1 mL 11/14/23 12/07/24 intramuscular syringe lancets 33 gauge (OneTouch Delica 04/17/24 12/07/24 Plus Lancet) buspirone 7.5 mg tablet 10 mg PO BID 05/11/24 12/07/24 cholecalciferol (vitamin D3) 50 50 mcg PO DAILY 05/11/24 12/07/24 mcg (2,000 unit) capsule glimepiride 1 mg tablet 1 mg PO DAILY #14 tabs 08/01/24 12/07/24 ondansetron 4 mg disintegrating 4 mg PO Q8H PRN nausea and 10/15/24 12/07/24 tablet vomiting #30 tabs metronidazole 500 mg tablet 500 mg PO BID 7 days #14 tabs 12/03/24 12/07/24 Previous Rx's ?Medication ?Instructions ?Recorded medroxyprogesterone 150 mg/mL 150 mg IM [id number] #1 mL 11/14/23 intramuscular syringe glimepiride 1 mg tablet 1 mg PO DAILY #14 tabs 08/01/24 ondansetron 4 mg disintegrating 4 mg PO Q8H PRN nausea and 10/15/24 tablet vomiting #30 tabs metronidazole 500 mg tablet 500 mg PO BID 7 days #14 tabs 12/03/24 Allergies Allergy/AdvReac Type Severity Reaction Status Date / Time fluticasone (From Flovent Allergy Severe unknown Verified 12/04/24 21:02 HFA) lisinopril Allergy Intermediate unknown Verified 12/04/24 21:02 paroxetine HCl (From Paxil) Allergy Intermediate Hives Verified 12/04/24 21:02 risperidone (From Risperdal) Allergy Intermediate Hives Verified 12/04/24 21:02 NSAIDS (Non-Steroidal Allergy Due to Verified 12/04/24 21:02 Anti-Inflamma prior kidney damage fluoxetine AdvReac Intermediate Vomiting,di Verified 12/04/24 21:02 arrhea ibuprofen AdvReac Intermediate vomiting Verified 12/04/24 21:02 naproxen (From Aleve) AdvReac Intermediate vomiting Verified 12/04/24 21:02 sertraline AdvReac Intermediate WEIRD Verified 12/04/24 21:02 FEELING OVER MY BODY acetaminophen AdvReac Nausea Verified 12/04/24 21:02 amoxicillin AdvReac Nausea Verified 12/04/24 21:02 seafood Allergy Intermediate unknown Uncoded 12/04/24 21:02 enviornmental Allergy Mild sneezing Uncoded 12/04/24 21:02 dark sodas AdvReac Severe BAD FOR Uncoded 12/04/24 21:02 MY KIDNEYS General MARY KAY: 3 Medical Decision Making Quality:SDOH Health Related Social Needs: Health related social needs housing instability, housed, with risk of homelessness (Z59.811), inadequate housing (Z59.1), feeling lonely/isolated (Z60.8) PFSH All Active Problems (Updated 12/07/24 @ 19:44 by Luis Armando Schmitz MD) Abdominal pain (Acute) Nausea & vomiting (Acute) Abdominal pain (Acute) Encounter for screening examination for mental health and behavioral disorders (Acute) Cold exposure (Acute) Nicotine dependence (Acute) COVID (Acute) Hyperplastic colon polyp (Acute) Rectal polyp (Acute) Chronic kidney disease, stage 1 (Chronic 12/31/16) from renal infection as a child elevated BP resulting 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 Contraception, generic surveillance Hx of OCPs, Nexplanon, DepoProvera. 02/2023 Norethindrone 0.35mg till 05/2023. Resumed DepoProvera. Pt denies intercourse Sleep disturbance Oppositional defiant disorder IBS (irritable bowel syndrome) Anemia Rash, skin Borderline personality disorder Family history of colon cancer Fatigue Illiteracy Per caregiver she is able to read and write, she needs assitance with comprehension of more complex words. Hypertrophy of tonsils and adenoids Suicidal ideation Bipolar 2 disorder RBC microcytosis Vitamin D deficiency Steatosis of liver Back pain Dysuria Abdominal pain History of allergic reaction Hemolytic uremic syndrome PTSD (post-traumatic stress disorder) Mesenteric lymphadenitis Drug abuse, episodic use SAHSA (stress urinary incontinence, female) Pain, dental Blood in stool History of mastoiditis Jaw pain TMJ tenderness, left Otalgia, right ear BMI 40.0-44.9, adult Overactive bladder (02/09/18) Generalized headaches (12/31/16) Depression (12/31/16) ADHD (attention deficit hyperactivity disorder) (12/31/16) Surgical History History of colonoscopy (~06/2022) Hx of tooth extraction History of kidney surgery Social History Smoking/Tobacco Use Status: Never Second Hand Exposure: No Smoking risk assessment performed?: Yes Alcohol Intake: current Alcohol Intake frequency: a few times a week Alcohol type: beer and hard liquor Drug use: Never Substance use type: does not use Caregiver/Support person: Yes Housing: apartment Sexually active: Yes (but has never had intercourse (former female partner)Sep 2024) Do you think of yourself as: bisexual What is your relationship status?: never Panel score (0-1 are the most socially isolated patients): 0 What type of physical activity do you participate in: none Seatbelt use: always Helmet use: Yes Do you feel safe at home: Yes Do you feel safe in your relationship?: Yes Additional 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
[2024-12-07 18:42] LABS: Bilirubin Negative (Negative); Blood Negative (Negative); Clarity Clear (Clear); Glucose 100 mg/dL (Negative); Ketones Negative (Negative); Leukocyte Esterase Negative (Negative); Nitrite Negative (Negative); Specific Gravity >= 1.030 (1.005-1.025); Urobilinogen 0.2 mg/dL (Up to 0.2)
[2024-12-07 18:50] LABS: Bacteria Few HPF (Negative); C & S Indicated? No; Casts Negative LPF (Negative); Crystals Negative HPF (Negative); Epithelial Cells Few HPF (Negative); Mucus Negative (Negative); RBC Negative HPF (0-2)
[2024-12-07 19:09] LABS: Abs Immature Grans 0.03 10^3/uL (0.0-0.06); Absolute Basophil Count 0.07 10^3/uL (0.0-0.2); Absolute Eosinophil Count 0.14 10^3/uL (0.0-0.7); Absolute Lymphocyte Count 2.12 10^3/uL (1.2-3.4); Absolute Monocyte Count 0.83 10^3/uL (0.1-0.8); Basophils % 0.7 %; Eosinophils % 1.4 %; HCT 39.1 % (36.0-46.0); HGB 12.4 g/dL (11.2-15.7); Immature Grans % 0.3 %; Lymphocytes % 21.2 %; MCHC 31.7 % (32.0-36.0); MCV 73 fL (80-95); Monocytes % 8.3 %; Neutrophils % 68.1 %; Platelet Count 244 10^3/uL (130-400); RBC 5.38 10^6/uL (3.93-5.22); RDW 15.2 % (11.7-14.6); RDW-SD 39.5 fL; WBC 9.99 10^3/uL (4.4-10.8)
[2024-12-07 19:23] LABS: Microcytosis 2+
[2024-12-07 19:24] LABS: ALT 40 U/L (14-59); AST 30 U/L (15-37); Albumin 3.7 g/dL (3.4-5.0); Alkaline Phosphatase 108 U/L (46-116); Anion Gap 11.7 mmol/L (3-11); BUN 8 mg/dL (7-18); Bilirubin, Total 0.31 mg/dL (0.2-1.0); CO2 22.3 mmol/L (21.0-32.0); CREATININE 0.8 mg/dL (0.55-1.02); Calcium 9.3 mg/dL (8.5-10.1); Chloride 105 mmol/L (98-107); Glucose 164 mg/dL (74-106); Lipase 34 U/L (<78); Potassium 4.1 mmol/L (3.5-5.1); Sodium 139 mmol/L (136-145); Total Protein 7.6 g/dL (6.4-8.2)
[2024-12-07 19:44] VITALS: BP 155/113; PULSE 108; RESP 18; O2SAT 98
== END 2024-12-07 19:49 | disposition home or self-care (01) ==
PROVIDERS: Emergency Provider Emergency Medicine; PCP Nurse Practitioner Family
DX: R10.12 Left upper quadrant pain (principal); I10 Essential (primary) hypertension; Z79.84 Long term (current) use of oral hypoglycemic drugs; Z79.85 Long-term (current) use of injectable non-insulin antidiabetic drugs
CPT/HCPCS: 80053; 81025; 83690; 99284; 81003; 81015; 85025

== ENCOUNTER 2024-12-19 03:35 | Observation (INO) | payer MEDICAID, SELFPAY ==
[2024-12-19] VITALS (126 sets, daily range): BP systolic 104–179; BP diastolic 64–124; PULSE 65–156; RESP 13–39; TEMP 36.4–37; O2SAT 94–99
--- NOTE | 2024-12-19 03:45 | DI.CT_ITS ---
Exam(s) CT ABDOMEN PELVIS WO EXAM: CT ABDOMEN PELVIS WO CLINICAL HISTORY: vomiting, lower abdominal pain. TECHNIQUE: Imaging Protocol: Axial computed tomography images with coronal and sagittal reformatted images were created and reviewed CONTRAST MATERIAL: Intravenous: none Oral: None COMPARISON: CT CT ABDOMEN PELVIS CTA from 08/27/2024 FINDINGS: VISUALIZED LUNG BASES: No nodules nor pleural effusions evident. ABDOMEN: There is no ascites. LIVER: Liver size appears slightly prominent. There are no obvious focal hepatic lesions evident of this noninfused study. GALLBLADDER/BILIARY: No obvious gallbladder pathology. CBD is not dilated. PANCREAS: No evidence of pancreatic mass nor dilatation of the pancreatic duct. SPLEEN: Spleen is not enlarged. No obvious intrasplenic lesions. ADRENALS: There are no significant adrenal masses. KIDNEYS:No cysts evident. No solid renal masses. No calculi nor hydronephrosis. . ABDOMINAL AORTA: Abdominal aorta is not enlarged. LYMPH NODES: There is no retroperitoneal nor paraaortic adenopathy. However there are multiple sligh tly prominent mesenteric lymph nodes noted, measuring up to 1 cm size. ABDOMINAL WALL: No evidence of significant anterior abdominal wall nor inguinal hernia. GI: There is fluid seen throughout the colon and small bowel loops consistent probable enteritis raimundo tania. There is no obvious colitis pattern. PELVIS: LYMPH NODES: Is no adenopathy around the aortic bifurcation nor along the iliac chains. A few shoddy lymph nodes are noted in both inguinal regions. GI: No evidence of appendicitis.No evidence of sigmoid diverticulitis. URINARY BLADDER: No calculi nor obvious masses evident REPRODUCTIVE: Uterus and adnexal regions appear age-appropriate. There is no free fluid in the pelvi s. OSSEOUS: No significant osseous lesions. No fractures. IMPRESSION: 1. There is fluid evident in the small bowel loops and the colon consistent with enteritis pattern. There is no evidence of bowel obstruction, free air, nor abscess. 2. There are multiple slightly prominent mesenteric lymph nodes measuring up to 1 cm size. There is no splenomegaly. 3. Liver size is slightly prominent. RADIATION DOSE DELIVERED: 778.08mGy.cm Total DLP DATA REPOSITORY: All CT scans at this facility are submitted to the National Radiology Data Registry (NRDR) Dose Index Registry (DIR) with the [employer] ([employer]). RADIATION OPTIMIZATION: All CT scans at this facility use at least one of these dose optimization te chniques: automated exposure control; mA and/or kV adjustment per patient size (includes targeted exa ms where dose is matched to clinical indication); or iterative reconstruction.
--- NOTE | 2024-12-19 04:40 | ED.GENADUL_ITS ---
Discharge Plan Disposition Patient Disposition: Home Condition: Good Discharge Details Clinical Impression: Viral gastroenteritis Primary Care Provider: Niyah Serna ED Provider: Douglas Gamez Home Meds and New Rx's Prescriptions: No Action melatonin 3 mg tablet 6 mg PO HS labetalol 100 mg tablet 100 mg PO QAM Patient Comments: 1/2 Tab QAM Ozempic 0.25 mg or 0.5 mg (2 mg/3 mL) pen injector 0.25 mg subcut QWEEK Patient Comments: takes Qthursdays Rx Instructions: for 4 weeks quetiapine 25 mg tablet 25 mg PO BID docusate sodium 100 mg capsule 100 mg PO DAILY medroxyprogesterone 150 mg/mL syringe 150 mg IM [id number] Qty: 1 5RF pantoprazole 40 mg Tablet,Delayed Release (Dr/Ec) 40 mg PO QAM clonidine HCl 0.2 mg tablet 0.2 mg PO QHS cholecalciferol (vitamin D3) 50 mcg (2,000 unit) capsule 50 mcg PO DAILY buspirone 7.5 mg tablet 10 mg PO BID ondansetron 4 mg tablet,disintegrating 4 mg PO Q8H PRN (Reason: nausea and vomiting) Qty: 30 0RF (DME) lancets [OneTouch Delica Plus Lancet] 33 gauge misc MISCELLANEOUS Patient Comments: TEST BLOOD SUGAR ONCE DAILY glimepiride 1 mg tablet 1 mg PO DAILY Qty: 14 0RF Rx Instructions: at your largest meal HPI General Date/Time Provider Initiated Documentation: 12/19/24 03:51 . HPI Narrative: 29-year-old female with a past medical history of CKD stage I, hypertension, mild mental slowing, borderline personality disorder, irritable bowel syndrome, bipolar type II, PTSD, ADHD, who presents today for evaluation of abdominal pain and vomiting. Patient states that for the last year she has been experiencing abdominal pain intermittently, however it got severe tonight with sharp pain in her lower abdomen going from the left to the right. She admits to persistent vomiting tonight that has been unremitting. She does admit to some diarrhea. She is crying and tearful, not able to give any additional history. She denies any blood in her vomit or stool. She denies any other complaints. Related Data Home Medications ?Medication ?Instructions ?Recorded ?Confirmed labetalol 100 mg tablet 100 mg PO QAM 09/25/21 12/19/24 melatonin 3 mg tablet 6 mg PO HS 09/25/21 12/19/24 pantoprazole 40 mg tablet,delayed 40 mg PO QAM 11/22/22 12/19/24 release clonidine HCl 0.2 mg tablet 0.2 mg PO QHS 02/15/23 12/19/24 docusate sodium 100 mg capsule 100 mg PO DAILY 03/24/23 12/19/24 quetiapine 25 mg tablet 25 mg PO BID 03/24/23 12/19/24 semaglutide 0.25 mg or 0.5 mg (2 0.25 mg subcut QWEEK 08/11/23 12/19/24 mg/3 mL) subcutaneous pen injector (KiteBit) lancets 33 gauge (OneTouch [facility] 04/17/24 12/19/24 Plus Lancet) buspirone 7.5 mg tablet 10 mg PO BID 05/11/24 12/19/24 cholecalciferol (vitamin D3) 50 50 mcg PO DAILY 05/11/24 12/19/24 mcg (2,000 unit) capsule glimepiride 1 mg tablet 1 mg PO DAILY #14 tabs 08/01/24 12/19/24 ondansetron 4 mg disintegrating 4 mg PO Q8H PRN nausea and 10/15/24 12/19/24 tablet vomiting #30 tabs medroxyprogesterone 150 mg/mL 150 mg IM [id number] #1 mL 12/10/24 12/19/24 intramuscular syringe Previous Rx's ?Medication ?Instructions ?Recorded glimepiride 1 mg tablet 1 mg PO DAILY #14 tabs 08/01/24 ondansetron 4 mg disintegrating 4 mg PO Q8H PRN nausea and 10/15/24 tablet vomiting #30 tabs medroxyprogesterone 150 mg/mL 150 mg IM [id number] #1 mL 12/10/24 intramuscular syringe Allergies Allergy/AdvReac Type Severity Reaction Status Date / Time fluticasone (From Flovent Allergy Severe unknown Verified 12/19/24 04:24 HFA) lisinopril Allergy Intermediate unknown Verified 12/19/24 04:24 paroxetine HCl (From Paxil) Allergy Intermediate Hives Verified 12/19/24 04:24 risperidone (From Risperdal) Allergy Intermediate Hives Verified 12/19/24 04:24 NSAIDS (Non-Steroidal Allergy Due to Verified 12/19/24 04:24 Anti-Inflamma prior kidney damage fluoxetine AdvReac Intermediate Vomiting,di Verified 12/19/24 04:24 arrhea ibuprofen AdvReac Intermediate vomiting Verified 12/19/24 04:24 naproxen (From Aleve) AdvReac Intermediate vomiting Verified 12/19/24 04:24 sertraline AdvReac Intermediate WEIRD Verified 12/19/24 04:24 FEELING OVER MY BODY acetaminophen AdvReac Nausea Verified 12/19/24 04:24 amoxicillin AdvReac Nausea Verified 12/19/24 04:24 seafood Allergy Intermediate unknown Uncoded 12/19/24 04:24 enviornmental Allergy Mild sneezing Uncoded 12/19/24 04:24 dark sodas AdvReac Severe BAD FOR Uncoded 12/19/24 04:24 MY KIDNEYS General MARY KAY: 3 Exam Narrative Exam Narrative: 1.Const: Well-nourished, Well-developed, appearing stated age 2.Eyes: PERRL, no conjunctival injection, and symmetrical lids. 3.ENT: Atraumatic external nose and ears. Dry MM. Neck: Symmetric, trachea midline, No thyromegaly. 4.CVS: +S1/S2, Peripheral pulses 2+ and equal in all extremities. Brisk capillary refill in all extremities. 5.RESP: Unlabored respiratory effort. Clear to auscultation bilaterally. No wheezes rales or rhonchi 6.GI: Soft, tender in the lower abdomen in the left middle and right lower quadrants. No focal pain at McBurney's point, negative Mortensen sign. 7.MSK: Normocephalic/Atraumatic, Extremities w/o deformity or ttp No cyanosis or clubbing, Normal movement of all extremities 8.Skin: Warm, Dry. No rashes or lesions. 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 Sensation grossly intact, no focal neurologic deficits. 10.Psych: (AAO) x3. Patient is tearful Medical Decision Making 29-year-old female with a past medical history of CKD stage I, hypertension, mild mental slowing, borderline personality disorder, irritable bowel syndrome, bipolar type II, PTSD, ADHD, who presents today for evaluation of abdominal pain and vomiting. Patient states that for the last year she has been experiencing abdominal pain intermittently, however it got severe tonight with sharp pain in her lower abdomen going from the left to the right. She admits to persistent vomiting tonight that has been unremitting. She does admit to some diarrhea. She is crying and tearful, not able to give any additional history. She denies any blood in her vomit or stool. She denies any other complaints. Exam demonstrates tearful female, lower abdominal pain diffusely throughout. Dry mucous membranes. Differential includes appendicitis, enteritis, COVID flu, less likely diverticulitis. Less likely ovarian pathology. Will get CT imaging, treat the patient's pain, rehydrate, monitor closely and reassess. 6:50 AM There was a notable delay in establishment of the IV secondary to patient having active diarrhea and vomiting episodes on nursing staff while IV was being placed. Urinalysis just came back negative for test, will now transition to CT imaging. Patient has been given medication for pain control and nausea. Pending laboratory workup. 7:[address] imaging shows evidence of gastroenteritis, no evidence of appendicitis or other acute abnormality. We are still pending all labs. Patient is still tachycardic at 150. We will give a second liter of normal saline. Patient will be signed out to my colleague Dr. Ferrer for follow-up on labs and reassessment. FINDINGS: Lungs: Lung bases are clear. Liver: Enlarged liver. Gallbladder and biliary ducts: Normal. No calcified stones. No ductal dilation. Pancreas: Normal. No ductal dilation. Spleen: Normal. No splenomegaly. Adrenal glands: Normal. No mass. Kidneys and ureters: Unremarkable. No renal stones or hydronephrosis. Stomach and bowel: Fluid levels in the colon. No wall thickening. No obstruction. Stomach and small bowel are normal. Appendix: No evidence of appendicitis. Intraperitoneal space: Unremarkable. No free air. No significant fluid collection. Vasculature: Unremarkable. No abdominal aortic aneurysm. Lymph nodes: Shotty mesenteric nodes are seen measuring up to one cm in size similar to the prior exam, likely reactive. No pathologic sized adenopathy. Urinary bladder: Unremarkable as visualized. Reproductive: Unremarkable as visualized. Bones/joints: Unremarkable. No acute fracture. Soft tissues: Unremarkable. IMPRESSION: Fluid levels in the colon suggestive of gastroenteritis. Stable hepatomegaly. Thank you for allowing us to participate in the care of your patient. Dictated and Authenticated by: Eliane Barbosa MD 12/19/2024 7:25 AM Eastern Time ([place] & [place]) Quality:SDOH Health Related Social Needs: Health related social needs housing instability, house d, with risk of h omelessness (Z59.811), inadequate housing (Z59.1), feeling lonely/isolated (Z60.8) PFSH All Active Problems (Updated 12/19/24 @ 07:30 by Douglas Gamez DO) Viral gastroenteritis (Acute) Abdominal pain (Acute) Nausea & vomiting (Acute) Abdominal pain (Acute) Encounter for screening examination for mental health and behavioral disorders (Acute) Cold exposure (Acute) Nicotine dependence (Acute) COVID (Acute) Hyperplastic colon polyp (Acute) Rectal polyp (Acute) Chronic kidney disease, stage 1 (Chronic 12/31/16) from renal infection as a child elevated BP resulting 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 Contraception, generic surveillance Hx of OCPs, Nexplanon, DepoProvera. 02/2023 Norethindrone 0.35mg till 05/2023. Resumed DepoProvera. Pt denies intercourse Sleep disturbance Oppositional defiant disorder IBS (irritable bowel syndrome) Anemia Rash, skin Borderline personality disorder Family history of colon cancer Fatigue Illiteracy Per caregiver she is able to read and write, she needs assitance with comprehension of more complex words. Hypertrophy of tonsils and adenoids Suicidal ideation Bipolar 2 disorder RBC microcytosis Vitamin D deficiency Steatosis of liver Back pain Dysuria Abdominal pain History of allergic reaction Hemolytic uremic syndrome PTSD (post-traumatic stress disorder) Mesenteric lymphadenitis Drug abuse, episodic use SASHA (stress urinary incontinence, female) Pain, dental Blood in stool History of mastoiditis Jaw pain TMJ tenderness, left Otalgia, right ear BMI 40.0-44.9, adult Overactive bladder (02/09/18) Generalized headaches (12/31/16) Depression (12/31/16) ADHD (attention deficit hyperactivity disorder) (12/31/16) Surgical History History of colonoscopy (~06/2022) Hx of tooth extraction History of kidney surgery Social History Smoking/Tobacco Use Status: Never Second Hand Exposure: No Smoking risk assessment performed?: Yes Alcohol Intake: current Alcohol Intake frequency: a few times a week Alcohol type: beer and hard liquor Drug use: Never Substance use type: does not use Caregiver/Support person: Yes Housing: apartment Sexually active: Yes (but has never had intercourse (former female partner)Sep 2024) Do you think of yourself as: bisexual What is your relationship status?: never Panel score (0-1 are the most socially isolated patients): 0 What type of physical activity do you participate in: none Seatbelt use: always Helmet use: Yes Do you feel safe at home: Yes Do you feel safe in your relationship?: Yes Additional Social history: has [facility] services/managed care 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
[2024-12-19 04:51] LABS: COVID-19 PCR Negative (Negative); Influenza A PCR Negative (Negative); Influenza B PCR Negative (Negative); RSV PCR Negative (Negative)
[2024-12-19 04:55] LABS: Lactate 1.9 mmol/L (<or=2.0)
[2024-12-19 04:58] LABS: Source Nasopharynx
[2024-12-19] MEDS: Normal Saline 1,000 ML 1000 ML IV (05:00)
[2024-12-19] MEDS: Ondansetron 4 MG/2 ML VIAL IVP ×2 (05:24→10:13)
[2024-12-19] MEDS: MORPHine 4 MG/ML SYR IVP ×2 (05:24→06:44)
[2024-12-19 06:46] LABS: Bilirubin Small (Negative); Blood Trace-lysed (Negative); Clarity Clear (Clear); Glucose 100 mg/dL (Negative); Ketones >=160 mg/dL (Negative); Leukocyte Esterase Negative (Negative); Nitrite Negative (Negative); Specific Gravity 1.025 (1.005-1.025); Urobilinogen 0.2 mg/dL (Up to 0.2)
[2024-12-19 06:57] LABS: Bacteria Few HPF (Negative); Crystals Negative HPF (Negative); Epithelial Cells Moderate HPF (Negative); RBC 0-2 HPF (0-2); WBC Negative HPF (0-5)
[2024-12-19 06:58] LABS: C & S Indicated? No; Casts 0-2 Hyaline LPF (Negative); Mucus Trace (Negative)
--- NOTE | 2024-12-19 07:26 | DI.VRAD_ITS ---
PROCEDURE INFORMATION: Exam: CT Abdomen And Pelvis Without Contrast Exam date and time: 12/19/2024 6:50 AM Age: 29 years old Clinical indication: Nausea and vomiting; Vomiting, lower abdominal pain TECHNIQUE: Imaging protocol: Computed tomography of the abdomen and pelvis without contrast. COMPARISON: CT ABDOMEN PELVIS CTA 08/27/2024 9:15 PM FINDINGS: Lungs: Lung bases are clear. Liver: Enlarged liver. Gallbladder and biliary ducts: Normal. No calcified stones. No ductal dilation. Pancreas: Normal. No ductal dilation. Spleen: Normal. No splenomegaly. Adrenal glands: Normal. No mass. Kidneys and ureters: Unremarkable. No renal stones or hydronephrosis. Stomach and bowel: Fluid levels in the colon. No wall thickening. No obstruction. Stomach and small bowel are normal. Appendix: No evidence of appendicitis. Intraperitoneal space: Unremarkable. No free air. No significant fluid collection. Vasculature: Unremarkable. No abdominal aortic aneurysm. Lymph nodes: Shotty mesenteric nodes are seen measuring up to one cm in size similar to the prior exam, likely reactive. No pathologic sized adenopathy. Urinary bladder: Unremarkable as visualized. Reproductive: Unremarkable as visualized. Bones/joints: Unremarkable. No acute fracture. Soft tissues: Unremarkable. IMPRESSION: Fluid levels in the colon suggestive of gastroenteritis. Stable hepatomegaly. Dictated and Authenticated by: Eliane Barbosa MD. Orderin Franco Cole MD
[2024-12-19 07:47] LABS: Abs Immature Grans 0.05 10^3/uL (0.0-0.06); Absolute Eosinophil Count 0.02 10^3/uL (0.0-0.7); Absolute Lymphocyte Count 0.43 10^3/uL (1.2-3.4); Absolute Monocyte Count 0.62 10^3/uL (0.1-0.8); Absolute Neutrophil Count 10.73 10^3/uL (1.2-6.7); Basophils % 0.3 %; Eosinophils % 0.2 %; HCT 44.1 % (36.0-46.0); HGB 13.8 g/dL (11.2-15.7); Immature Grans % 0.4 %; Lymphocytes % 3.6 %; MCH 22.7 pg (27.0-33.0); MCHC 31.3 % (32.0-36.0); MCV 73 fL (80-95); MPV 11.8 fL (8.0-11.0); Monocytes % 5.2 %; Neutrophils % 90.3 %; Platelet Count 287 10^3/uL (130-400); RBC 6.08 10^6/uL (3.93-5.22); RDW 15.9 % (11.7-14.6); RDW-SD 39.8 fL; WBC 11.88 10^3/uL (4.4-10.8)
[2024-12-19 07:49] LABS: Absolute Basophil Count 0.04 10^3/uL (0.0-0.2)
[2024-12-19 08:02] LABS: Diff Comment RBC Morph Reviewed; Microcytosis 2+
[2024-12-19 08:09] LABS: ALT 30 U/L (14-59); AST 16 U/L (15-37); Albumin 3.7 g/dL (3.4-5.0); Alkaline Phosphatase 100 U/L (46-116); Anion Gap 12.6 mmol/L (3-11); BUN 14 mg/dL (7-18); Bilirubin, Total 1.04 mg/dL (0.2-1.0); CO2 19.4 mmol/L (21.0-32.0); CREATININE 0.8 mg/dL (0.55-1.02); Chloride 108 mmol/L (98-107); Glucose 191 mg/dL (74-106); Lipase 17 U/L (<78); Sodium 140 mmol/L (136-145); Total Protein 7.7 g/dL (6.4-8.2)
[2024-12-19] MEDS: Lactated Ringers 1,000 ML 1000 ML IV (08:16)
--- NOTE | 2024-12-19 08:16 | ED.PROG_ITS ---
Date of service: 12/19/24 Time of Service: 08:16 Medical Decision Making Signout signout accepted from off going physician. Patient is a 29-year-old female with complex psychiatric and mood disorder presented today with severe vomiting and diarrhea. A CT scan was obtained that was consistent with gastroenteritis. At this time the patient has had multiple episodes of diarrhea in the emergency department. She remains tachycardic. Apparently her blood work was lost and had to be redrawn. Disposition at this time is pending stool studies, reevaluation of heart rate after additional IV fluids and following up on lab work. Despite 2 L of IV fluids, the patient persist to have a heart rate in the 140s, when she gets up and moves around her heart rate goes into the 150s. She has not taken her morning labetalol dose secondary to her persistent vomiting. She was provided an oral dose in the emergency department, but had thrown it up. I was able to give her an IV dose. She has still had persistent diarrhea though it seems to have slowed down since the Lomotil dose that was given to her by Dr. Gamez Given persistent symptoms and persistent tachycardia, I do not feel the patient would be a good candidate for discharge home which I do not suspect that she will maintain adequate oral hydration. She will be admitted to the hospital for further fluid resuscitation and management of symptoms. Quality:SDSC Health Related Social Needs: Health related social needs housing instability, house d, with risk of homelessness (Z59.811), inadequate housing (Z59.1), feeling lonely/isolated (Z60.8) Discharge Plan Disposition Patient Disposition: Admit to [facility] Condition: Fair Discharge Details Clinical Impression: Viral gastroenteritis, Nausea & vomiting, Diarrhea, Tachycardia, Acute dehydration Primary Care Provider: Niyah Serna ED Provider: Anil Ferrer Home Meds and New Rx's Prescriptions: No Action melatonin 3 mg tablet 6 mg PO HS labetalol 100 mg tablet 100 mg PO QAM Patient Comments: 1/2 Tab QAM Ozempic 0.25 mg or 0.5 mg (2 mg/3 mL) pen injector 0.25 mg subcut QWEEK Patient Comments: takes Qthursdays Rx Instructions: for 4 weeks quetiapine 25 mg tablet 25 mg PO BID docusate sodium 100 mg capsule 100 mg PO DAILY medroxyprogesterone 150 mg/mL syringe 150 mg IM [id number] Qty: 1 5RF pantoprazole 40 mg Tablet,Delayed Release (Dr/Ec) 40 mg PO QAM clonidine HCl 0.2 mg tablet 0.2 mg PO QHS cholecalciferol (vitamin D3) 50 mcg (2,000 unit) capsule 50 mcg PO DAILY buspirone 7.5 mg tablet 10 mg PO BID ondansetron 4 mg tablet,disintegrating 4 mg PO Q8H PRN (Reason: nausea and vomiting) Qty: 30 0RF (DME) lancets [OneTouch Delica Plus Lancet] 33 gauge misc MISCELLANEOUS Patient Comments: TEST BLOOD SUGAR ONCE DAILY glimepiride 1 mg tablet 1 mg PO DAILY Qty: 14 0RF Rx Instructions: at your largest meal
[2024-12-19] MEDS: Famotidine 20 MG/2 ML VIAL IVP (08:43)
--- NOTE | 2024-12-19 09:30 | RT.EKG_ITS ---
APPROVED REPORT Exam: Resting ECG Reason for Exam: tachy Patient Location: E HR:123 bpm ECG Measurements Heart Rate 123 AXIS AZ 129 P 36 QRSd 79 QRS 39 QT 307 T -17 QTc 439 Conclusion Sinus tachycardia. 123 no stemi
[2024-12-19] MEDS: busPIRone 5 MG TAB 10 MG PO (09:38)
[2024-12-19] MEDS: Labetalol 100 MG TAB PO (09:38)
[2024-12-19] MEDS: Labetalol 100 MG/20 ML VIAL 10 MG IVP (10:13)
[2024-12-19] MEDS: Prochlorperazine 10 MG/2 ML VIAL IVP (14:03)
[2024-12-19] MEDS: LORazepam 2 MG/ML VIAL 1 MG IVP (14:03)
[2024-12-19] MEDS: Lactated Ringers 1,000 ML 100 ML IV ×2 (14:04→21:25)
--- NOTE | 2024-12-19 14:09 | NUR.NOTE ---
Nursing Note: ~ 1.5 hr spent with patient for personal care. pt rang call light crying. pt reporting she didnt feel good and she needed help feeling better. pt reported she wanted a shower, she hadn't showered in 5 days. pt wanted cream for buttock. this nurse ambulated pt to zone B and assisted w/ shower per patient request. pt reported shower helped make her feel better. pt declined brushing teeth. Ambulated back to room cream to buttock applied, clean brief applied. Hair brushed and braided per pt request. pt reports feeling decreased nausea, increased feelings of hope and overall mental and physical improvement.
--- NOTE | 2024-12-19 14:21 | NUR.NOTE ---
pt with mult constant complaints. Pt states she feels unsafe at home with concerns that 'I feel like I am being attacked', pt with vague statements about not being able to or being stopped from showering and self care for over 5 days, then states that she is feeling suicidal r/t not being able to shower in ED, when educated to plan for admission to [facility] at some point and there will be shower available pt then called out to [facility] staff members and finally had a staff member take her to Zone B and shower and clean pt. Pt using walker and requesting pull-ups, commode in room but pt cont to amb to bathroom and stop at nursing station to make mult requests, pt c/o left IV pain, able to flush and get blood return, decision made for new IV, placed with out complication by u/s to R Forearm, new orders for fluids and meds, pt initially refused ativan again but after education did receive along with nausea meds, pt then educated to use call petersen before getting out of bed and using commode, pt then immediately used call petersen stating she was very tired, educated that ativan will relax her and make her sleepy, pt then with concerns about medication interacting with her previous meds, educated that pt did vomit up previous meds and there was no interaction. Pt cont to require [facility] staff to perform simple task/adls such as 'cover me up', and 'get me another pull-up', staff brushed and braided pt's hair r/t her inability to 'move arms'.
[2024-12-19] MEDS: Metoprolol 5 MG/5 ML VIAL IVP ×2 (18:38→19:31)
--- NOTE | 2024-12-19 19:10 | HPE_ITS ---
Date of service: 12/19/24 Time of Service: 19:10 Assessment and Plan Assessment and plan (1) Acute dehydration: Status: Acute Assessment and plan: N/V/D Antiemetics IVF bolus and MIVF Clear liquids (2) Tachycardia: Status: Acute Assessment and plan: HR NSR 150s Telemetry (3) Viral gastroenteritis: Status: Acute Assessment and plan: Flu neg N/V/D antiemetics, IVF, clear liquids (4) Encounter for screening examination for mental health and behavioral disorders: Status: Acute Assessment and plan: Patient states she wants to go to [facility], she states she is homeless. She denies a current means or plan. Mother is guardian History of Present Illness History of Present Illness Chief Complaint: Abdominal pain, vomiting, and diarrhea Narrative: Past Medical History: * Chronic Kidney Disease Stage I * Hypertension * Mild mental slowing * Borderline Personality Disorder * Irritable Bowel Syndrome (IBS) * Bipolar Disorder Type II * Post-Traumatic Stress Disorder * Attention-Deficit/Hyperactivity Disorder History of Present Illness: 29-year-old female with the above medical history presents for evaluation of severe abdominal pain and persistent vomiting. She reports a year-long history of intermittent abdominal pain, which acutely worsened tonight, described as sharp pain in the lower abdomen radiating left to right. She has had persistent, unremitting vomiting and diarrhea. No hematemesis or hematochezia. She is tearful and unable to provide additional history beyond her primary complaints. Emergency Department Course: * Exam: Tearful, diffuse lower abdominal pain, dry mucous membranes, tachycardia. * Workup & Treatment: * Labs: Initial blood work was lost and had to be redrawn. Pending stool studies. * Imaging: CT abdomen/pelvis consistent with gastroenteritis, no evidence of appendicitis or acute pathology. * Fluids: Received 2L IV NS, but remains tachycardic (HR 140s-150s with movement). * Medications: * Pain control and antiemetics given. * Labetalol dose missed due to vomiting, received IV replacement in ED. * Lomotil given for diarrhea, with improvement. Assessment & Plan: 29-year-old female with CKD I, hypertension, and complex psychiatric history presenting with acute gastroenteritis complicated by persistent vomiting, diarrhea, dehydration, and tachycardia. * Gastroenteritis * Continue IV fluid resuscitation * Monitor for resolution of diarrhea and vomiting * Stool studies pending * Persistent Tachycardia (HR 140-150s despite 2L IV fluids) * Likely due to dehydration and missed antihypertensive dose * IV metoprolol given with HR down to 100, normal sinus rhythm; monitor response * Consider other causes if tachycardia persists * Dehydration & Inability to Maintain Oral Intake * Admit for continued IV hydration and electrolyte monitoring * Monitor for worsening AIDAN given CKD history * Psychiatric History (BPD, Bipolar II, PTSD, ADHD, Mild Mental Slowing) * Monitor for agitation or worsening mental status * Psychiatry consult if needed for mood stabilization * Hypertension * Resume home antihypertensives as tolerated * Monitor BP response after IV Metoprolol Disposition: * Admit to inpatient service for continued fluids, symptom management, and cardiac monitoring given persistent tachycardia. Review of Systems All systems reviewed & are unremarkable except as noted in HPI and below PFSH All Active Problems (Updated 12/19/24 @ 11:19 by BETTYE RIDLEY) Acute dehydration (Acute) Tachycardia (Acute) Diarrhea (Acute) Viral gastroenteritis (Acute) Abdominal pain (Acute) Nausea & vomiting (Acute) Abdominal pain (Acute) Encounter for screening examination for mental health and behavioral disorders (Acute) Cold exposure (Acute) Nicotine dependence (Acute) COVID (Acute) Hyperplastic colon polyp (Acute) Rectal polyp (Acute) Chronic kidney disease, stage 1 (Chronic 12/31/16) from renal infection as a child elevated BP resulting 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 Contraception, generic surveillance Hx of OCPs, Nexplanon, DepoProvera. 02/2023 Norethindrone 0.35mg till 05/2023. Resumed DepoProvera. Pt denies intercourse Sleep disturbance Oppositional defiant disorder IBS (irritable bowel syndrome) Anemia Rash, skin Borderline personality disorder Family history of colon cancer Fatigue Illiteracy Per caregiver she is able to read and write, she needs assitance with comprehension of more complex words. Hypertrophy of tonsils and adenoids Suicidal ideation Bipolar 2 disorder RBC microcytosis Vitamin D deficiency Steatosis of liver Back pain Dysuria Abdominal pain History of allergic reaction Hemolytic uremic syndrome PTSD (post-traumatic stress disorder) Mesenteric lymphadenitis Drug abuse, episodic use SASHA (stress urinary incontinence, female) Pain, dental Blood in stool History of mastoiditis Jaw pain TMJ tenderness, left Otalgia, right ear BMI 40.0-44.9, adult Overactive bladder (02/09/18) Generalized headaches (12/31/16) Depression (12/31/16) ADHD (attention deficit hyperactivity disorder) (12/31/16) Surgical History History of colonoscopy (~06/2022) Hx of tooth extraction History of kidney surgery Social History Smoking/Tobacco Use Status: Never Second Hand Exposure: No Smoking risk assessment performed?: Yes Alcohol Intake: current Alcohol Intake frequency: a few times a week Alcohol type: beer and hard liquor Drug use: Never Substance use type: does not use Caregiver/Support person: Yes Housing: apartment Sexually active: Yes (but has never had intercourse (former female partner)Sep 2024) Do you think of yourself as: bisexual What is your relationship status?: never Panel score (0-1 are the most socially isolated patients): 0 What type of physical activity do you participate in: none Seatbelt use: always Helmet use: Yes Do you feel safe at home: Yes Do you feel safe in your relationship?: Yes Additional 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 Female Reproductive History Menstrual control method: progesterone injection History History 2 0 Para Hx # Term Pregnancies Multiple births Hx # Pregnancies Ectopic pregnancies AB induced Hx Number of Living Children AB spontaneous Meds Allergies and Home Medications Allergies Allergy/AdvReac Type Severity Reaction Status Date / Time fluticasone (From Flovent Allergy Severe unknown Verified 12/19/24 04:24 HFA) lisinopril Allergy Intermediate unknown Verified 12/19/24 04:24 paroxetine HCl (From Paxil) Allergy Intermediate Hives Verified 12/19/24 04:24 risperidone (From Risperdal) Allergy Intermediate Hives Verified 12/19/24 04:24 NSAIDS (Non-Steroidal Allergy Due to Verified 12/19/24 04:24 Anti-Inflamma prior kidney damage fluoxetine AdvReac Intermediate Vomiting,di Verified 12/19/24 04:24 arrhea ibuprofen AdvReac Intermediate vomiting Verified 12/19/24 04:24 naproxen (From Aleve) AdvReac Intermediate vomiting Verified 12/19/24 04:24 sertraline AdvReac Intermediate WEIRD Verified 12/19/24 04:24 FEELING OVER MY BODY acetaminophen AdvReac Nausea Verified 12/19/24 04:24 amoxicillin AdvReac Nausea Verified 12/19/24 04:24 seafood Allergy Intermediate unknown Uncoded 12/19/24 04:24 enviornmental Allergy Mild sneezing Uncoded 12/19/24 04:24 dark sodas AdvReac Severe BAD FOR Uncoded 12/19/24 04:24 MY KIDNEYS Home Medications ?Medication ?Instructions ?Recorded ?Confirmed ?Type labetalol 100 mg tablet 100 mg PO QAM 09/25/21 12/19/24 History melatonin 3 mg tablet 6 mg PO HS 09/25/21 12/19/24 History pantoprazole 40 mg tablet,delayed 40 mg PO QAM 11/22/22 12/19/24 History release clonidine HCl 0.2 mg tablet 0.2 mg PO QHS 02/15/23 12/19/24 History docusate sodium 100 mg capsule 100 mg PO DAILY 03/24/23 12/19/24 History quetiapine 25 mg tablet 25 mg PO BID 03/24/23 12/19/24 History semaglutide 0.25 mg or 0.5 mg (2 0.25 mg subcut QWEEK 08/11/23 12/19/24 History mg/3 mL) subcutaneous pen injector (Ozempic) lancets 33 gauge (OneTouch Delica 04/17/24 12/19/24 History Plus Lancet) buspirone 7.5 mg tablet 10 mg PO BID 05/11/24 12/19/24 History cholecalciferol (vitamin D3) 50 50 mcg PO DAILY 05/11/24 12/19/24 History mcg (2,000 unit) capsule glimepiride 1 mg tablet 1 mg PO DAILY #14 tabs 08/01/24 12/19/24 Rx ondansetron 4 mg disintegrating 4 mg PO Q8H PRN nausea and 10/15/24 12/19/24 Rx tablet vomiting #30 tabs medroxyprogesterone 150 mg/mL 150 mg IM [id number] #1 mL 12/10/24 12/19/24 Rx intramuscular syringe Exam Const General: no acute distress Orientation: alert HENMT Head: normal to inspection Ears: external ears normal General nose exam: external nose normal Mouth: moist mucous membranes Eyes General: appearance normal, both eyes and all related structures Neck Neck: normal visual inspection Resp Effort & Inspection: normal respiratory effort and able to speak in complete sentences Cardio Rate: regular rate GI Palpation: soft and nontender Skin General skin exam: no rashes or lesions noted Neuro General: patient alert and patient oriented x3 Extrem General: normal to inspection Psych Mental Status: mental status grossly normal Results Labs 12/19/24 07:45 12/19/24 07:45 Labs: Laboratory Results - last 24 hr 12/19/24 12/19/24 12/19/24 03:51 04:32 04:50 WBC Cancelled Cancelled RBC Cancelled Cancelled Hgb Cancelled Cancelled Hct Cancelled Cancelled MCV Cancelled Cancelled MCH Cancelled Cancelled MCHC Cancelled Cancelled RDW Cancelled Cancelled Plt Count Cancelled Cancelled MPV Cancelled Cancelled Immature Gran % Cancelled Cancelled Neutrophils % Cancelled Cancelled Band Neutrophils % Cancelled Cancelled Lymphocytes % Cancelled Cancelled Atypical Lymphs % Cancelled Cancelled Monocytes % Cancelled Cancelled Eosinophils % Cancelled Cancelled Basophils % Cancelled Cancelled Metamyelocytes % Cancelled Cancelled Myelocytes % Cancelled Cancelled Promyelocytes % Cancelled Cancelled Other Cells % Cancelled Cancelled Nucleated RBC % Cancelled Cancelled Absolute Neutrophils Cancelled Cancelled Absolute Lymphocytes Cancelled Cancelled Absolute Monocytes Cancelled Cancelled Absolute Eosinophils Cancelled Cancelled Absolute Basophils Cancelled Cancelled RBC Morphology Cancelled Cancelled Polychromasia Cancelled Cancelled Hypochromasia Cancelled Cancelled Poikilocytosis Cancelled Cancelled Basophilic Stippling Cancelled Cancelled Anisocytosis Cancelled Cancelled Microcytosis Cancelled Cancelled Macrocytosis Cancelled Cancelled Spherocytes Cancelled Cancelled Tear Drop Cells Cancelled Cancelled Ovalocytes Cancelled Cancelled Stomatocytes Cancelled Cancelled [place] Bodies Cancelled Cancelled Ben Cells/Echinocytes Cancelled Cancelled Acanthocytes (Spur) Cancelled Cancelled Schistocytes Cancelled Cancelled VBG Lactate 1.9 Sodium Cancelled Cancelled Potassium Cancelled Cancelled Chloride Cancelled Cancelled Carbon Dioxide Cancelled Cancelled Anion Gap Cancelled Cancelled BUN Cancelled Cancelled Creatinine Cancelled Cancelled Est GFR (CKD-EPI 2020) Cancelled Cancelled Glucose Cancelled Cancelled Calcium Cancelled Cancelled Total Bilirubin Cancelled Cancelled AST Cancelled Cancelled ALT Cancelled Cancelled Alkaline Phosphatase Cancelled Cancelled Total Protein Cancelled Cancelled Albumin Cancelled Cancelled Lipase Cancelled Cancelled Urine Color Urine Clarity Urine pH Ur Specific [place] Urine Protein Urine Ketones Urine Blood Urine Nitrite Urine Bilirubin Urine Urobilinogen Ur Leukocyte Esterase Urine RBC Urine WBC Ur Epithelial Cells Urine Crystals Urine Bacteria Urine Casts Urine Mucus Ur Culture Indicated? Urine Glucose COVID-19 Source Nasopharynx SARS-CoV-2 (PCR) Negative Influenza Type A (PCR) Negative Influenza Type B (PCR) Negative RSV (PCR) Negative 12/19/24 12/19/24 06:37 07:45 WBC 11.88 H RBC 6.08 H Hgb 13.8 Hct 44.1 MCV 73 L MCH 22.7 L MCHC 31.3 L RDW 15.9 H Plt Count 287 MPV 11.8 H Immature Gran % 0.4 Neutrophils % 90.3 Band Neutrophils % Lymphocytes % 3.6 Atypical Lymphs % Monocytes % 5.2 Eosinophils % 0.2 Basophils % 0.3 Metamyelocytes % Myelocytes % Promyelocytes % Other Cells % Nucleated RBC % 0.0 Absolute Neutrophils 10.73 H Absolute Lymphocytes 0.43 L Absolute Monocytes 0.62 Absolute Eosinophils 0.02 Absolute Basophils 0.04 RBC Morphology See Below Polychromasia Hypochromasia Poikilocytosis Basophilic Stippling Anisocytosis Microcytosis 2+ Macrocytosis Spherocytes Tear Drop Cells Ovalocytes Stomatocytes [place] Bodies [place] Cells/Echinocytes Acanthocytes (Spur) Schistocytes VBG Lactate Sodium 140 Potassium 4.0 Chloride 108 H Carbon Dioxide 19.4 L Anion Gap 12.6 H BUN 14 Creatinine 0.8 Est GFR (CKD-EPI 2020) 103.50 Glucose 191 H Calcium 9.0 Total Bilirubin 1.04 H AST 16 ALT 30 Alkaline Phosphatase 100 Total Protein 7.7 Albumin 3.7 Lipase 17 Urine Color Yellow Urine Clarity Clear Urine pH 6.0 Ur Specific [place] 1.025 Urine Protein 100 H Urine Ketones >=160 H Urine Blood Trace-lysed H Urine Nitrite Negative Urine Bilirubin Small H Urine Urobilinogen 0.2 Ur Leukocyte Esterase Negative Urine RBC 0-2 Urine WBC Negative Ur Epithelial Cells Moderate Urine Crystals Negative Urine Bacteria Few Urine Casts 0-2 Hyaline Urine Mucus Trace Ur Culture Indicated? No Urine Glucose 100 H COVID-19 Source SARS-CoV-2 (PCR) Influenza Type A (PCR) Influenza Type B (PCR) RSV (PCR) Last Vital Signs Temp 36.4 C L 12/19/24 04:25 Pulse 131 H 12/19/24 18:46 Resp 27 H 12/19/24 18:46 BP 130/81 12/19/24 18:46 Pulse Ox 94 12/19/24 18:46 Time Spent Time spent with Patient: 40-54 minutes Time was spent: preparing to see the patient(eg.review tests), obtaining and/or reviewing separately otained hiistory, ordering medications,tests, procedures, referring, communicating with other health social worker palliative care, indepentently interpreting results, counseling the patient and care coordination
[2024-12-19 21:39] LABS: *AMPHETAMINES SCREEN URINE Negative (Negative); *BARBITURATES SCREEN URINE Negative (Negative); *BENZODIAZEPINES SCREEN URINE Negative (Negative); Cannabinoids THC Negative (Negative); Cocaine Screen,Urine Negative (Negative); METHADONE URINE SCREEN Negative (Negative); OPIATES URINE SCREEN Positive (Negative)
[2024-12-19 21:41] LABS: Tricyclic Antidepressants Negative (Negative)
--- NOTE | 2024-12-19 23:13 | W.PC.ACHO ---
Registration Status: Primary Language: Preferred Language: ED Information & Data Chief Complaint Nausea/Vomit/Diar 12/19/24 04:51 Chief Complaint Nausea/Vomit/Diar 12/19/24 04:25 Triage Note pt comes to the ED with non- 12/19/24 04:25 stop vomiting, pt states she has not been able to keep any po food and fluids since yesterday and abd pain, pt has not felt well for several days. difficult IV access. Medical / Surgical History (Last Reviewed 12/04/24 @ 22:15 by HARRISON Tong) Breakthrough bleeding on depo provera Encounter for Depo-Provera contraception Contraception, generic surveillance Sleep disturbance Oppositional defiant disorder IBS (irritable bowel syndrome) Anemia Rash, skin Borderline personality disorder Family history of colon cancer Fatigue Illiteracy Hypertrophy of tonsils and adenoids Suicidal ideation Bipolar 2 disorder RBC microcytosis Vitamin D deficiency Steatosis of liver Back pain Dysuria Abdominal pain History of allergic reaction Hemolytic uremic syndrome PTSD (post-traumatic stress disorder) Mesenteric lymphadenitis Drug abuse, episodic use SASHA (stress urinary incontinence, female) Pain, dental Blood in stool History of mastoiditis Jaw pain TMJ tenderness, left Otalgia, right ear BMI 40.0-44.9, adult Overactive bladder (02/09/18) Generalized headaches (12/31/16) Depression (12/31/16) ADHD (attention deficit hyperactivity disorder) (12/31/16) (Last Reviewed 12/04/24 @ 22:15 by HARRISON Tong) History of colonoscopy (~06/2022) Hx of tooth extraction History of kidney surgery Most Recent Vital Signs Temperature 36.4 C L 12/19/24 04:25 Temperature Source Temporal Artery Scan 12/19/24 04:25 Pulse 103 H 12/19/24 21:31 Pulse 111 H 12/19/24 21:31 Respiratory Rate 26 H 12/19/24 21:31 Blood Pressure 127/82 12/19/24 21:31 Blood Pressure Mean 93 12/19/24 21:31 Blood Pressure Position Sitting 12/19/24 04:25 Pulse Oximetry 95 12/19/24 21:31 Oxygen Delivery Method Room Air 12/19/24 04:25 Oxygen Flow Rate 0 12/19/24 04:25 Pain Level 10 12/19/24 14:03 Comment sleeping 12/19/24 15:10 Allergies fluticasone (From Flovent HFA) Allergy (Severe, Verified 12/19/24 04:24) unknown lisinopril Allergy (Intermediate, Verified 12/19/24 04:24) unknown paroxetine HCl (From Paxil) Allergy (Intermediate, Verified 12/19/24 04:24) Hives risperidone (From Risperdal) Allergy (Intermediate, Verified 12/19/24 04:24) Hives NSAIDS (Non-Steroidal Anti-Inflamma Allergy (Verified 12/19/24 04:24) Due to prior kidney damage 04/20/22; patient states she can and does take naproxin. fluoxetine Adverse Reaction (Intermediate, Verified 12/19/24 04:24) Vomiting,diarrhea ibuprofen Adverse Reaction (Intermediate, Verified 12/19/24 04:24) vomiting naproxen (From Aleve) Adverse Reaction (Intermediate, Verified 12/19/24 04:24) vomiting sertraline Adverse Reaction (Intermediate, Verified 12/19/24 04:24) WEIRD FEELING OVER MY BODY acetaminophen Adverse Reaction (Verified 12/19/24 04:24) Nausea amoxicillin Adverse Reaction (Verified 12/19/24 04:24) Nausea seafood Allergy (Intermediate, Uncoded 12/19/24 04:24) unknown enviornmental Allergy (Mild, Uncoded 12/19/24 04:24) sneezing dark sodas Adverse Reaction (Severe, Uncoded 12/19/24 04:24) BAD FOR MY KIDNEYS Active Medications Generic Name Dose Route Start Last Admin Trade Name Freq PRN Reason Stop Dose Admin Ringer's Solution 1,000 mls @ 100 mls/hr 12/19/24 10:30 12/19/24 21:25 IV 100 mls/hr INFUSION SONJA Administration IV IV Catheter Type [Right Peripheral IV Forearm] IV Catheter Type [Left Forearm Peripheral IV ] IV Catheter Gauge [Right 18 Forearm] IV Catheter Gauge [Left 20 Forearm] Diagnostics 12/19/24 12/19/24 12/19/24 Range/Units 07:45 06:39 06:37 WBC 11.88 H RBC 6.08 H Hgb 13.8 Hct 44.1 MCV 73 L MCH 22.7 L MCHC 31.3 L RDW 15.9 H Plt Count 287 MPV 11.8 H Immature Gran % 0.4 Neutrophils % 90.3 Band Neutrophils % Lymphocytes % 3.6 Atypical Lymphs % Monocytes % 5.2 Eosinophils % 0.2 Basophils % 0.3 Metamyelocytes % Myelocytes % Promyelocytes % Other Cells % Nucleated RBC % 0.0 Absolute Neutrophils 10.73 H Absolute Lymphocytes 0.43 L Absolute Monocytes 0.62 Absolute Eosinophils 0.02 Absolute Basophils 0.04 RBC Morphology See Below Polychromasia Hypochromasia Poikilocytosis Basophilic Stippling Anisocytosis Microcytosis 2+ Macrocytosis Spherocytes Tear Drop Cells Ovalocytes Stomatocytes [place] Bodies Ben Cells/Echinocytes Acanthocytes (Spur) Schistocytes VBG Lactate (<or=2.0) mmol/L Sodium 140 Potassium 4.0 Chloride 108 H Carbon Dioxide 19.4 L Anion Gap 12.6 H BUN 14 Creatinine 0.8 Est GFR (CKD-EPI 2020) 103.50 Glucose 191 H Calcium 9.0 Total Bilirubin 1.04 H AST 16 ALT 30 Alkaline Phosphatase 100 Total Protein 7.7 Albumin 3.7 Lipase 17 Urine Color Yellow (Yellow) Urine Clarity Clear (Clear) Urine pH 6.0 (5-8) Ur Specific [place] 1.025 (1.005-1.025) Urine Protein 100 H (Neg-Trace) mg/dL Urine Ketones >=160 H (Negative) mg/dL Urine Blood Trace-lysed H (Negative) Urine Nitrite Negative (Negative) Urine Bilirubin Small H (Negative) Urine Urobilinogen 0.2 (Up to 0.2) mg/dL Ur Leukocyte Esterase Negative (Negative) Urine RBC 0-2 (0-2) HPF Urine WBC Negative (0-5) HPF Ur Epithelial Cells Moderate (Negative) HPF Urine Crystals Negative (Negative) HPF Urine Bacteria Few (Negative) HPF Urine Casts 0-2 Hyaline (Negative) LPF Urine Mucus Trace (Negative) Ur Culture Indicated? No Urine Glucose 100 H (Negative) mg/dL Urine Opiates Screen Positive A (Negative) Urine Methadone Screen Negative (Negative) Ur Barbiturates Screen Negative (Negative) Ur Tricyclics Screen Negative (Negative) Ur Amphetamines Screen Negative (Negative) U Benzodiazepines Scrn Negative (Negative) Urine Cocaine Screen Negative (Negative) Ur THC Screen Negative (Negative) COVID-19 Source SARS-CoV-2 (PCR) (Negative) Influenza Type A (PCR) (Negative) Influenza Type B (PCR) (Negative) RSV (PCR) (Negative) 12/19/24 12/19/24 12/19/24 Range/Units 04:50 04:32 03:51 WBC Cancelled Cancelled RBC Cancelled Cancelled Hgb Cancelled Cancelled Hct Cancelled Cancelled MCV Cancelled Cancelled MCH Cancelled Cancelled MCHC Cancelled Cancelled RDW Cancelled Cancelled Plt Count Cancelled Cancelled MPV Cancelled Cancelled Immature Gran % Cancelled Cancelled Neutrophils % Cancelled Cancelled Band Neutrophils % Cancelled Cancelled Lymphocytes % Cancelled Cancelled Atypical Lymphs % Cancelled Cancelled Monocytes % Cancelled Cancelled Eosinophils % Cancelled Cancelled Basophils % Cancelled Cancelled Metamyelocytes % Cancelled Cancelled Myelocytes % Cancelled Cancelled Promyelocytes % Cancelled Cancelled Other Cells % Cancelled Cancelled Nucleated RBC % Cancelled Cancelled Absolute Neutrophils Cancelled Cancelled Absolute Lymphocytes Cancelled Cancelled Absolute Monocytes Cancelled Cancelled Absolute Eosinophils Cancelled Cancelled Absolute Basophils Cancelled Cancelled RBC Morphology Cancelled Cancelled Polychromasia Cancelled Cancelled Hypochromasia Cancelled Cancelled Poikilocytosis Cancelled Cancelled Basophilic Stippling Cancelled Cancelled Anisocytosis Cancelled Cancelled Microcytosis Cancelled Cancelled Macrocytosis Cancelled Cancelled Spherocytes Cancelled Cancelled Tear Drop Cells Cancelled Cancelled Ovalocytes Cancelled Cancelled Stomatocytes Cancelled Cancelled [place] Bodies Cancelled Cancelled Ben Cells/Echinocytes Cancelled Cancelled Acanthocytes (Spur) Cancelled Cancelled Schistocytes Cancelled Cancelled VBG Lactate 1.9 (<or=2.0) mmol/L Sodium Cancelled Cancelled Potassium Cancelled Cancelled Chloride Cancelled Cancelled Carbon Dioxide Cancelled Cancelled Anion Gap Cancelled Cancelled BUN Cancelled Cancelled Creatinine Cancelled Cancelled Est GFR (CKD-EPI 2020) Cancelled Cancelled Glucose Cancelled Cancelled Calcium Cancelled Cancelled Total Bilirubin Cancelled Cancelled AST Cancelled Cancelled ALT Cancelled Cancelled Alkaline Phosphatase Cancelled Cancelled Total Protein Cancelled Cancelled Albumin Cancelled Cancelled Lipase Cancelled Cancelled Urine Color (Yellow) Urine Clarity (Clear) Urine pH (5-8) Ur Specific [place] (1.005-1.025) Urine Protein (Neg-Trace) mg/dL Urine Ketones (Negative) mg/dL Urine Blood (Negative) Urine Nitrite (Negative) Urine Bilirubin (Negative) Urine Urobilinogen (Up to 0.2) mg/dL Ur Leukocyte Esterase (Negative) Urine RBC (0-2) HPF Urine WBC (0-5) HPF Ur Epithelial Cells (Negative) HPF Urine Crystals (Negative) HPF Urine Bacteria (Negative) HPF Urine Casts (Negative) LPF Urine Mucus (Negative) Ur Culture Indicated? Urine Glucose (Negative) mg/dL Urine Opiates Screen (Negative) Urine Methadone Screen (Negative) Ur Barbiturates Screen (Negative) Ur Tricyclics Screen (Negative) Ur Amphetamines Screen (Negative) U Benzodiazepines Scrn (Negative) Urine Cocaine Screen (Negative) Ur THC Screen (Negative) COVID-19 Source Nasopharynx SARS-CoV-2 (PCR) Negative (Negative) Influenza Type A (PCR) Negative (Negative) Influenza Type B (PCR) Negative (Negative) RSV (PCR) Negative (Negative) [id number] Documentation Fingerstick Glucose Start: 12/19/24 14:02 Freq: Status: Active Protocol: Activity Type Activity Date Activity User E-sign Co-sign Detail Recorded Client Recorded Date Recorded By Document 12/19/24 14:01 BKG DAEMON(3) [id number] 12/19/24 14:02 BKG DAEMON(4) POC Urine Test Start: 12/19/24 03:54 Freq: .Urine Test Status: Active Protocol: Activity Type Activity Date Activity User E-sign Co-sign Detail Recorded Client Recorded Date Recorded By Document 12/19/24 06:41 CHRISTINE [id number] 12/19/24 06:41 CHRISTINE Intake and Output - 24 Hour Total 12/19/24 03:35 thru 12/19/24 21:25 Intake Total 2740 Balance 2740 Weight 95.254 kg Intake: IV 2735 Other 5 Other: Emesis Description Retching Falls Risk Assessment History of Falls No History 12/19/24 04:51 Contributing Factors No Factors 12/19/24 04:51 Ambulatory Aids Independent 12/19/24 04:51 Tubes/Lines None 12/19/24 04:51 Gait Evaluation No gait disturbance 12/19/24 04:51 Cognition No cognitive impairment 12/19/24 04:51 Fall Total Score 0 12/19/24 04:51 Level of Risk Standard/Low Risk 12/19/24 04:51 Problems (Last Reviewed 12/04/24 @ 22:15 by AHRRISON Tong) Acute dehydration (Acute) Tachycardia (Acute) Viral gastroenteritis (Acute) Encounter for screening examination for mental health and behavioral disorders (Acute) Notes 12/19/24 14:21 Nursing Notes by Eliane Beyer pt with [facility] constant complaints. Pt states she feels unsafe at home with concerns that 'I feel like I am being attacked', pt with vague statements about not being able to or being stopped from showering and self care for over 5 days, then states that she is feeling suicidal r/t not being able to shower in ED, when educated to plan for admission to [facility] at some point and there will be shower available pt then called out to [facility] staff members and finally had a staff member take her to Zone B and shower and clean pt. Pt using walker and requesting pull-ups, commode in room but pt cont to amb to bathroom and stop at nursing station to make mult requests, pt c/o left IV pain, able to flush and get blood return, decision made for new IV, placed with out complication by u/s to R Forearm, new orders for fluids and meds, pt initially refused ativan again but after education did receive along with nausea meds, pt then educated to use call petersen before getting out of bed and using commode, pt then immediately used call petersen stating she was very tired, educated that ativan will relax her and make her sleepy, pt then with concerns about medication interacting with her previous meds, educated that pt did vomit up previous meds and there was no interaction. Pt cont to require [facility] staff to perform simple task/adls such as 'cover me up', and 'get me another pull-up', staff brushed and braided pt's hair r/t her inability to 'move arms'. Initialized on 12/19/24 14:21 - END OF NOTE 12/19/24 14:09 Nursing Notes by Vandana Turner Nursing Note: ~ 1.5 hr spent with patient for personal care. pt rang call light crying. pt reporting she didnt feel good and she needed help feeling better. pt reported she wanted a shower, she hadn't showered in 5 days. pt wanted cream for buttock. this nurse ambulated pt to zone B and assisted w/ shower per patient request. pt reported shower helped make her feel better. pt declined brushing teeth. Ambulated back to room cream to buttock applied, clean brief applied. Hair brushed and braided per pt request. pt reports feeling decreased nausea, increased feelings of hope and overall mental and physical improvement. Initialized on 12/19/24 14:09 - END OF NOTE v v v v v v v v v Sending and/or Receiving Nurses: Please use comment section below to note any information pertinent to the patient hand-off not included above. Information / Comments: No further questions. Report received from: AMELIA Carbajal
[2024-12-20] MEDS: QUEtiapine 25 MG TAB PO ×2 (00:36→07:58)
[2024-12-20] MEDS: busPIRone 5 MG TAB 10 MG PO ×2 (00:36→09:13)
[2024-12-20] MEDS: Melatonin 3 MG TAB 6 MG PO (00:36)
[2024-12-20] MEDS: cloNIDine 0.1 MG TAB 0.2 MG PO (00:37)
[2024-12-20 03:00] VITALS: PULSE 91
[2024-12-20] MEDS: Lactated Ringers 1,000 ML 100 ML IV (06:14)
[2024-12-20 07:05] LABS: Abs Immature Grans 0.01 10^3/uL (0.0-0.06); Absolute Basophil Count 0.02 10^3/uL (0.0-0.2); Absolute Eosinophil Count 0.05 10^3/uL (0.0-0.7); Absolute Lymphocyte Count 1.19 10^3/uL (1.2-3.4); Absolute Monocyte Count 0.54 10^3/uL (0.1-0.8); Absolute Neutrophil Count 1.79 10^3/uL (1.2-6.7); Basophils % 0.6 %; Eosinophils % 1.4 %; HCT 34.7 % (36.0-46.0); HGB 10.7 g/dL (11.2-15.7); Immature Grans % 0.3 %; Lymphocytes % 33.1 %; MCH 22.7 pg (27.0-33.0); MCHC 30.8 % (32.0-36.0); MCV 74 fL (80-95); MPV 11.9 fL (8.0-11.0); Neutrophils % 49.6 %; Platelet Count 179 10^3/uL (130-400); RBC 4.72 10^6/uL (3.93-5.22); RDW 15.9 % (11.7-14.6); RDW-SD 42.2 fL
[2024-12-20 07:06] LABS: Anion Gap 6.8 mmol/L (3-11); BUN 5 mg/dL (7-18); CO2 26.2 mmol/L (21.0-32.0); CREATININE 0.7 mg/dL (0.55-1.02); Calcium 8.7 mg/dL (8.5-10.1); Chloride 108 mmol/L (98-107); Estimated GFR 121.49 (mL/min/1.73m2); Glucose 133 mg/dL (74-106); Magnesium 1.8 mg/dL (1.8-2.4); Potassium 3.5 mmol/L (3.5-5.1); Sodium 141 mmol/L (136-145)
[2024-12-20 07:21] VITALS: BP 104/63; PULSE 93; RESP 18; TEMP 36.6; O2SAT 98
[2024-12-20 07:30] LABS: Diff Comment RBC Morph Reviewed; Microcytosis 2+
[2024-12-20] MEDS: Pantoprazole 40 MG TABCR PO (07:36)
[2024-12-20] MEDS: Docusate Sodium 100 MG CAP PO (07:58)
[2024-12-20] MEDS: Cholecalciferol (Vitamin D3) 1,000 UNIT TAB 2000 UNITS PO (07:58)
[2024-12-20] MEDS: Labetalol 100 MG TAB PO (07:59)
[2024-12-20] MEDS: Normal Saline Flush 10 ML SYR IVP (07:59)
[2024-12-20] MEDS: Glimepiride 1 MG TAB PO (09:13)
[2024-12-20 11:19] VITALS: BP 107/68; PULSE 91; RESP 16; TEMP 36.8; O2SAT 92
[2024-12-20] MEDS: Acetaminophen 325 MG TAB PO (13:19)
--- NOTE | 2024-12-20 14:03 | CMPROGNOTE_ITS ---
Date of service: 12/20/24 Time of Service: 14:03 Care Management Progress Note Progress Note Text Progress Note Text: Shannon was admitted overnight for vomiting, diarrhea and tachycardia. While being treated medically, she made suicidal statements to staff, at which point suicide precautions were put in place. She was medically cleared this morning, and CM contacted [facility] for a mental health evaluation. She was assessed by Bridgette, via zoom. Together, they created a safety plan for Shannon to follow in the community. ROSELIA contacted her [facility] case making machine operator, Patrick, and updated her, informing her that Shannon is being discharged. Patrick stated that she has made arra ngements for Shannon to go to the [facility] in [facility], and that [facility] will provide transport. CM spoke to Shannon to review her discharge plan. She expressed frustration with her team in the community; CM validated her concerns, and also discussed the positive aspects of her plan, including her having a place to go today. Shannon stated that she wants to meet with economic services tomorrow, and will discuss that with her case making machine operator when she picks her up today. CM will continue to follow. Discharge Potential Discharge Needs: PCP F/U Appt Anticipated Barriers to Discharge: None Identified Patient/Family Education Needs: Review discharge instructions, discuss Ask Me Three Transportation: Private vehicle Plan: Shannon returned to the community with a plan for safety to follow; she will be staying at the [facility] for now. She transported via private vehicle by her community development manager, Patrick, [facility]. She will follow up with her PCP and discharge plan of care. CM will continue to follow. Social Determinants of Health Screening Social Determinants of Health last assessed: 12/20/24 Will the Patient Participate in the Screening?: Yes Do you worry about having a steady place to live?: yes What is your living situation today?: I do not have steady housing Problems where you live: no known problems In the past 12 months, have you had to go without electric, gas, oil or water in your home?: no Have you or anyone in your house had to go without enough food to eat?: no Has lack of transportation kept you from medical appointments or from doing things needed for daily living?: no Has anyone in your life made you feel unsafe or unsupported?: no How hard is it for you to pay for the very basics like food, housing, medical care, and heating? Would you say it is:: Very hard Do you want help finding or keeping work or a job?: I do not need or want help If for any reason you need help with day-to-day activities such as bathing, preparing meals, shopping, managing finances, etc., do you get the help you need?: I need a lot more help How often do you feel lonely or isolated from those around you?: Never Do you speak a language other than K[place] at home?: No Does the patient want assistance with any of the above?: No Social Determinants of Health Comments(SDOH Details): Patient reports she worry about not having a place live. Health Related Social Needs Health related social needs: housing instability, housed, with risk of homelessness (Z59.811), problems related to housing/economic circumstances (Z59.89) and problems with daily activities (Z73.9)
[2024-12-20 14:43] VITALS: BP 115/78; PULSE 89; RESP 18; TEMP 37.2; O2SAT 96
--- NOTE | 2024-12-20 14:48 | DSE_ITS ---
Date of service: 12/20/24 Time of Service: 14:49 DS: Diagnosis Discharge Diagnosis (1) Acute dehydration: Status: Acute (2) Tachycardia: Status: Acute (3) Viral gastroenteritis: Status: Acute (4) Encounter for screening examination for mental health and behavioral disorders: Status: Acute Discharge Plan Disposition Patient Disposition: Home Condition: Good Discharge Details Reason For Visit: tachycardia, vomiting, diarrhea Admit Date/Time: 12/19/24 10:34 Admit Provider: Luis Armando Mckeon Attending Provider: Allyssa Chandler Primary Care Provider: Niyah Serna Hospital Course Hospital Course: The patient is a 29-year-old female with a history of chronic kidney disease stage I, hypertension, and a complex psychiatric background, presenting with severe abdominal pain and persistent vomiting. She reports a year-long history of intermittent abdominal pain that acutely worsened tonight, describing the pain as sharp in the lower abdomen, radiating from left to right. The patient has experienced persistent vomiting and diarrhea, with no reports of hematemesis or hematochezia. During the assessment, she appeared tearful and was unable to provide further history beyond her primary complaints. Emergency Department Course: * Exam: The patient was tearful, exhibited diffuse lower abdominal pain, had dry mucous membranes, and demonstrated tachycardia. * Workup & Treatment: * Labs: Initial blood work was lost and had to be redrawn. Stool studies are pending. * Imaging: CT abdomen/pelvis was performed, revealing findings consistent with gastroenteritis, with no evidence of appendicitis or acute abdominal pathology. * Fluids: Received 2L IV normal saline; however, she remained tachycardic (heart rate in the 140s-150s with movement). * Medications: * Pain control and antiemetics were administered. * Labetalol dose was missed due to vomiting; IV replacement was provided in the ED. * Lomotil was given for diarrhea, resulting in improvement. * Gastroenteritis: * Received IV fluids * Resolutino of diarrhea and vomiting. s. * Persistent Tachycardia: * Likely secondary to dehydration and missed antihypertensive dose. * IV metoprolol administered, with heart rate reducing to 100 bpm; monitor response. * Consider evaluation for other causes if tachycardia persists. * Psychiatric History: * Monitor for signs of agitation or worsening mental status due to BPD, Bi polar II, PTSD, ADHD, and mild mental slowing. * Seen by [facility] and has a safety plan for discharge * Hypertension: * Resume home antihypertensives as tolerated. * Monitor blood pressure response after administration of IV metoprolol. Disposition: The patient is able to maintain fluids and solids. The patient is discharged stable to home. She will go to a local motel according to care managers. Her mother is guardian. and aware of the plan. Follow-Up: * Outpatient follow-up with primary care and psychiatry post-discharge as need ed. Home Meds and New Rx's Prescriptions: Continued melatonin 3 mg tablet 6 mg PO HS labetalol 100 mg tablet 100 mg PO QAM Patient Comments: / Tab QAM Ozempic 0.25 mg or 0.5 mg (2 mg/3 mL) pen injector 0.25 mg subcut QWEEK Patient Comments: takes Qthursdays Rx Instructions: for 4 weeks quetiapine 25 mg tablet 25 mg PO BID docusate sodium 100 mg capsule 100 mg PO DAILY medroxyprogesterone 150 mg/mL syringe 150 mg IM [id number] Qty: 1 5RF pantoprazole 40 mg Tablet,Delayed Release (Dr/Ec) 40 mg PO QAM clonidine HCl 0.2 mg tablet 0.2 mg PO QHS cholecalciferol (vitamin D3) 50 mcg (2,000 unit) capsule 50 mcg PO DAILY buspirone 7.5 mg tablet 10 mg PO BID ondansetron 4 mg tablet,disintegrating 4 mg PO Q8H PRN (Reason: nausea and vomiting) Qty: 30 0RF (DME) lancets [OneTouch Delica Plus Lancet] 33 gauge misc MISCELLANEOUS Patient Comments: TEST BLOOD SUGAR ONCE DAILY glimepiride 1 mg tablet 1 mg PO DAILY Qty: 14 0RF Rx Instructions: at your largest meal Discharge Instructions Instructions: Diarrhea, Adult ED, Nausea and vomiting in adults Additional Instructions: Drink plenty of fluids. Follow up with PCP. Follow up with [facility] as planned. Stand Alone Forms: Nursing Discharge Form Referrals: Niyah Serna [Primary Care Provider] - (post hospitalization visit within 10 days, please call to schedule an appointment with your PCP ) Activity:: Activity as Tolerated Equipment/Supplies:: No Equipment Needed Diet:: As Tolerated Discharge Orders Discharge Orders: Discharge Order (Routine); Ordered 12/20/24 Ordered By: Allyssa Geraldine Discharge Data Discharge Date/Time-TO BE ENTERED AT DEPARTURE: 12/20/24 18:11 DS: Summary Time Spent with Patient providing and/or coordinating discharge services: Greater than 30 minutes Status at Discharge Functional status at discharge: independent ambulation Overall status at discharge: patient is back to baseline Mental Status: mental status grossly normal Speech and Movement: speech and movement normal Mood: congruent mood Affect: normal affect Quality:SDOH Health Related Social Needs: Health related social needs housing instability, house d, with risk of homelessness (Z59.811), problems related to housing/economic circumstances (Z59.89), problems with daily activities (Z73.9) Exam Const General: no acute distress Orientation: alert HENMT Head: normal to inspection Ears: external ears normal General nose exam: external nose normal Mouth: moist mucous membranes Eyes General: appearance normal, both eyes and all related structures Neck Neck: normal visual inspection Resp Effort & Inspection: normal respiratory effort and able to speak in complete sentences Cardio Rate: regular rate GI Palpation: soft and nontender Skin General skin exam: no rashes or lesions noted Neuro General: patient alert and patient oriented x3 Extrem General: normal to inspection Psych Mental Status: mental status grossly normal Speech and Movement: speech and movement normal Mood: congruent mood Affect: normal affect DS: Data Vitals/I&O Vitals and I&O: Vital Signs Temperature 37.2 C 12/20/24 14:43 Temperature Source Temporal Artery Scan 12/20/24 14:43 Pulse 89 12/20/24 14:43 Pulse Rhythm Regular 12/19/24 23:50 Pulse 100 H 12/19/24 23:01 Respiratory Rate 18 12/20/24 14:43 Respiratory Effort Normal, Non-Labored 12/19/24 23:50 Respiratory Depth Normal 12/19/24 23:50 Respiratory Pattern Normal 12/19/24 23:50 Blood Pressure 115/78 12/20/24 14:43 Blood Pressure Mean 80 12/19/24 23:01 Blood Pressure Position Sitting 12/19/24 04:25 Pulse Oximetry 96 12/20/24 14:43 Oxygen Delivery Method Room Air 12/20/24 14:43 Oxygen Flow Rate 0 12/20/24 14:43 Pain Level 0 12/19/24 23:50 Comment sleeping 12/19/24 15:10 Intake & Output 12/19/24 12/20/24 12/20/24 23:59 11:59 23:59 Intake Total 1740 / 2740 881.667 / 881.667 Output Total 1100 / 1100 Balance 1740 / 2740 -218.333 / -218.333 Weight 104.6 kg Intake: IV 1735 / 2735 881.667 / 881.667 Other Output: Urine 1100 / 1100 Other: Urine Color Yellow Urine Appearance Clear Clear Urine Odor Normal Comment pt voided Stool Size Small Stool Characteristics Soft Data Completed and Pending Labs on day of discharge: Labs from last 24 hours 12/20/24 12/19/24 06:25 06:39 WBC 3.60 L RBC 4.72 Hgb 10.7 L D Hct 34.7 L MCV 74 L MCH 22.7 L MCHC 30.8 L RDW 15.9 H Plt Count 179 MPV 11.9 H Immature Gran % 0.3 Neutrophils % 49.6 Lymphocytes % 33.1 Monocytes % 15.0 Eosinophils % 1.4 Basophils % 0.6 Nucleated RBC % 0.0 Absolute Neutrophils 1.79 Absolute Lymphocytes 1.19 L Absolute Monocytes 0.54 Absolute Eosinophils 0.05 Absolute Basophils 0.02 RBC Morphology See Below Microcytosis 2+ Sodium 141 Potassium 3.5 Chloride 108 H Carbon Dioxide 26.2 Anion Gap 6.8 BUN 5 L Creatinine 0.7 Est GFR (CKD-EPI 2020) 121.49 Glucose 133 H Calcium 8.7 Magnesium 1.8 Urine Opiates Screen Positive A Urine Methadone Screen Negative Ur Barbiturates Screen Negative Ur Tricyclics Screen Negative Ur Amphetamines Screen Negative U Benzodiazepines Scrn Negative Urine Cocaine Screen Negative Ur THC Screen Negative PFSH All Active Problems (Updated 12/19/24 @ 11:19 by BETTYE RIDLEY) Acute dehydration (Acute) Tachycardia (Acute) Diarrhea (Acute) Viral gastroenteritis (Acute) Abdominal pain (Acute) Nausea & vomiting (Acute) Abdominal pain (Acute) Encounter for screening examination for mental health and behavioral disorders (Acute) Cold exposure (Acute) Nicotine dependence (Acute) COVID (Acute) Hyperplastic colon polyp (Acute) Rectal polyp (Acute) Chronic kidney disease, stage 1 (Chronic 12/31/16) from renal infection as a child elevated BP resulting 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 Contraception, generic surveillance Hx of OCPs, Nexplanon, DepoProvera. 02/2023 Norethindrone 0.35mg till 05/2023. Resumed DepoProvera. Pt denies intercourse Sleep disturbance Oppositional defiant disorder IBS (irritable bowel syndrome) Anemia Rash, skin Borderline personality disorder Family history of colon cancer Fatigue Illiteracy Per caregiver she is able to read and write, she needs assitance with comprehension of more complex words. Hypertrophy of tonsils and adenoids Suicidal ideation Bipolar 2 disorder RBC microcytosis Vitamin D deficiency Steatosis of liver Back pain Dysuria Abdominal pain History of allergic reaction Hemolytic uremic syndrome PTSD (post-traumatic stress disorder) Mesenteric lymphadenitis Drug abuse, episodic use SASHA (stress urinary incontinence, female) Pain, dental Blood in stool History of mastoiditis Jaw pain TMJ tenderness, left Otalgia, right ear BMI 40.0-44.9, adult Overactive bladder (02/09/18) Generalized headaches (12/31/16) Depression (12/31/16) ADHD (attention deficit hyperactivity disorder) (12/31/16) Surgical History History of colonoscopy (~06/2022) Hx of tooth extraction History of kidney surgery Social History Smoking/Tobacco Use Status: Never Second Hand Exposure: No Smoking risk assessment performed?: Yes Alcohol Intake: current Alcohol Intake frequency: a few times a week Alcohol type: beer and hard liquor Drug use: Never Substance use type: does not use Caregiver/Support person: Yes Housing: apartment Sexually active: Yes (but has never had intercourse (former female partner)Sep 2024) Do you think of yourself as: bisexual What is your relationship status?: never Panel score (0-1 are the most socially isolated patients): 0 What type of physical activity do you participate in: none Seatbelt use: always Helmet use: Yes Do you feel safe at home: Yes Do you feel safe in your relationship?: Yes Additional 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
--- NOTE | 2024-12-20 15:19 | PDOC.MHCN_ITS ---
Date of service: 12/20/24 Time of Service: 11:30 PHQ-9 Over the last 2 weeks, how often have you been bothered by any of the following problems? 1. Little interest or pleasure in doing things: several days 2. Feeling down, depressed, or hopeless: several days 3. Trouble falling or staying asleep, or sleeping too much: not at all 4. Feeling tired or having little energy: not at all 5. Poor appetite or overeating: several days 6. Feeling bad about yourself - or that you are a failure or have let yourself and your family down: several days 7. Trouble concentrating on things, such as reading the newspaper or watching television: not at all 8. Moving or speaking so slowly that other people could have noticed? - Or the opposite - being so fidgety or restless that you have been moving around a lot more than usual: not at all 9. Thoughts that you would be better off or of hurting yourself in some way: several days Total score: 5 If you checked off any problems, how difficult have these problems made it for you to do your work, take care of things at home, or get along with other people?: very difficult Source: Developed by Drs. Alejandro Ward, Melva Mancilla, Dave Sutton and colleagues, with an educational marcio from [employer]. Mental Health Emergency Note Release [facility] release signed:: Yes Reason for Visit Client is being medically treated for illness and verballized SI. In the last 2 weeks has the pt presented for ES prior to today?: No Client Information Client is: IDDS Well Housed: No,status: Homeless Non Suicidal Self Injury Current: Yes, Client shared that she didn't want to hurt herself, she was just feeling hopless in her situation due to her roommate kicking her out. History: yes, Client eluded to overdosing. Safety Risk/Harm to Self or Others Current Ideation to Harm Self or Others: Yes to self. Intent: no, has no intent. Plan: no.does not have a plan. Risk: Does risk to harm exist?: yes. Risk: Low Risk Duty to warn indicated: No Asssessment/Mental Status Appearance: Disheveled Attitude: Cooperative and Friendly Behavior: Unremarkable Speech: Normal Affect: Normal Mood: Sad, Stressed and Depressed Thought process: Unremarkable Hallucinations: No Delusions: No Attention: Unremarkable Perception: Not impaired Orientation: Fully orientated Memory: Intact Insight: Fair Judgement: Fair Neurovegetative Symptoms Sleep: Decrease Appetitie: Decrease Interests: No change Energy: No change Substance Use: Have you used substances in the last 7 days?: No Additional Issues: Assaultive/Threatening Behavior: No Medical Concerns: Yes Client engaged in active self harm w/weapon: No Threatening to run away: No Child reported abuse/neglect: No Voluntarily presenting for services: Yes Domestic violence is a concern: No Extreme Psychosis or extreme behavior is present: No Impression Client is a 29 year old female currently enrolled in [facility]'s DS program where she has a bilingual patient support caseworker, Patrick to support her. Client is known to global technical writer and was polite and friendly while answering and engaging in the assessment today. Welder Assistant zoomed in to the hospital on the Med Surg floor as client is currently admitted to the floor due to illness. Client was sleepy but sat up after answering a few questions and continued to be engaged and came up with a reasonable plan of action in moving forward from how she was currently feeling. Client shared that she had moved in with a friend and the intention was to be her roommate, but her friend Kim reportedly told client that she couldn't deal with Cient being sick and drove her to the ER. Client expressed her sadness with the situation describing how she had rehomed [place] in order to make this rooming situation work. Client shared that she wasn't feeling supported by anyone right now and she was in destress over being so sick and now she was overwhelmed with being homeless. Welder Assistant asked client about SI statements and client shared that she was just upset and feeling physically unwell, but she was feeling better now. Client shared that her and her father had a good supportive conversation last night, but she was upset that her mother was unwilling to let her stay with them for a few nights. Client shared that her friend Hugh was a great support. Client was receptive when client encouraged her to connect with her nurse outreach case manager in having a productive meeting and to find her stable housing. Client requested a referral to be sent for therapy. Resources Reosurces reviewed and given:: [facility] and [facility] Plan/Disposition Recommended Disposition: [facility] Services [facility] Services: Therapy. Plan: Client will follow up with her nurse outreach case manager and referrals will be sent for therapy. client will utilize [facility] and [facility] ES as needed. Person reported agreement to plan: Yes Reports/communication Outcome discussed with: ED/Personnel
== END 2024-12-20 18:11 | disposition home or self-care (01) ==
LOC: ER 10:50 → EDHOLD 11:20 → MS 23:32
PROVIDERS: Student in an Organized Health Care Education/Training Program; Admitting Provider Family Medicine; Emergency Provider Nurse Practitioner Family; PCP Nurse Practitioner Family; Responsible Provider Nurse Practitioner Family; Visit Provider Nurse Practitioner Family
DX: A08.4 Viral intestinal infection, unspecified (principal); E86.0 Dehydration; R00.0 Tachycardia, unspecified; N18.1 Chronic kidney disease, stage 1; F60.3 Borderline personality disorder; K58.9 Irritable bowel syndrome, unspecified; F43.10 Post-traumatic stress disorder, unspecified; F31.81 Bipolar II disorder; F90.9 Attention-deficit hyperactivity disorder, unspecified type; F17.210 Nicotine dependence, cigarettes, uncomplicated; I15.1 Hypertension secondary to other renal disorders; Z79.899 Other long term (current) drug therapy
CPT/HCPCS: 00123; 36415; 36416; 80048; 80053; 80307; 81025; 82962; 83690; 87637; 93005; 96127; 96361; 96374; 96375; 96376; 99285; 74176; 81003; 81015; 83605; 83735; 85025; 93010; 99222; 99239; G0378; J0780; J1920; J2060; J2270; J2405

== ENCOUNTER 2024-12-27 02:32 | Emergency (ER) | payer MEDICAID, SELFPAY ==
--- NOTE | 2024-12-27 | DI.CT_ITS ---
Exam(s) CT ABDOMEN PELVIS WO EXAM: CT ABDOMEN PELVIS WO CLINICAL HISTORY: LLQ ABD PAIN. TECHNIQUE: Imaging Protocol: Axial computed tomography images with coronal and sagittal reformatted images were created and reviewed. COMPARISON: CT CT ABDOMEN PELVIS WO from 12/19/2024 FINDINGS: ABDOMEN: Lung Bases: Normal where visualized. Liver: Normal density. No measurable mass. Gallbladder and biliary tract: No radiodense calculus or biliary ductal dilation. Pancreas: Normal density, no abnormal calcifications or inflammatory process. Spleen: Normal. Kidneys: Normal size, contour and axis.No radiodense stones or obstructive uropathy. No masses seen. Adrenal glands: No mass is seen. Lymph nodes: Stable mildly prominent mesenteric lymph nodes. Abdominal Aorta: Abdominal portion non-dilated. PELVIS: Bladder:Symmetric distention, no gross wall thickening. Bowel: There is no evidence of bowel obstruction. There is new mild inflammation in the fat surround ing the proximal sigmoid colon suspicious for epiploic appendagitis. There is mild thickening of the wall of the sigmoid colon in this area. This may be due to underdistention. Peritoneal cavity: No ascites, collection or mesenteric inflammatory response. No free air. Reproductive organs: Unremarkable as visualized. Bones: Within normal limits. Soft Tissues: Within normal limits. IMPRESSION: 1. Findings most suggestive of epiploic appendagitis involving the proximal sigmoid colon. 2. Mild thickening of the wall of the adjacent sigmoid colon in this area. This likely is due to und erdistention. Colitis is considered less likely. RADIATION DOSE DELIVERED: 823.51mGy.cm Total DLP DATA REPOSITORY: All CT scans at this facility are submitted to the National Radiology Data Registry (NRDR) Dose Index Registry (DIR) with the [employer] (ACR). RADIATION OPTIMIZATION: All CT scans at this facility use at least one of these dose optimization te chniques: automated exposure control; mA and/or kV adjustment per patient size (includes targeted exa ms where dose is matched to clinical indication); or iterative reconstruction.
--- NOTE | 2024-12-27 05:39 | ED.GENADUL_ITS ---
Discharge Plan Disposition Patient Disposition: Home Condition: Good Discharge Details Clinical Impression: Epiploic appendagitis Primary Care Provider: Niyah Serna ED Provider: Eliane Rollins Home Meds and New Rx's Prescriptions: Continued melatonin 3 mg tablet 6 mg PO HS labetalol 100 mg tablet 100 mg PO QAM Patient Comments: 1/2 Tab QAM Ozempic 0.25 mg or 0.5 mg (2 mg/3 mL) pen injector 0.25 mg subcut QWEEK Patient Comments: takes Qthursdays Rx Instructions: for 4 weeks quetiapine 25 mg tablet 25 mg PO BID docusate sodium 100 mg capsule 100 mg PO DAILY medroxyprogesterone 150 mg/mL syringe 150 mg IM [id number] Qty: 1 5RF pantoprazole 40 mg Tablet,Delayed Release (Dr/Ec) 40 mg PO QAM clonidine HCl 0.2 mg tablet 0.2 mg PO QHS cholecalciferol (vitamin D3) 50 mcg (2,000 unit) capsule 50 mcg PO DAILY buspirone 7.5 mg tablet 10 mg PO BID ondansetron 4 mg tablet,disintegrating 4 mg PO Q8H PRN (Reason: nausea and vomiting) Qty: 30 0RF (DME) lancets [OneTouch [employer] Plus Lancet] 33 gauge misc MISCELLANEOUS Patient Comments: TEST BLOOD SUGAR ONCE DAILY glimepiride 1 mg tablet 1 mg PO DAILY Qty: 14 0RF Rx Instructions: at your largest meal Discharge Instructions Instructions: Abdominal Pain, Adult ED Additional Instructions: Your CT shows epiplic appendagitis. This usually gets better within 1-2 weeks. You can take over the counter pain medication at home. Call your primary care doctor today to schedule an appointment to followup on your visit here. Return to the emergency department for new or worsening symptoms including new/different/worse pain, vomiting, or if you have any other concerns. Discharge Data Discharge Date/Time-TO BE ENTERED AT DEPARTURE: 12/27/24 06:00 HPI General Mode of arrival: EMS . Date/Time Provider Initiated Documentation: 12/27/24 05:39 . Limitations to Documentation: no limitations . Information obtained by: patient and EMS . HPI Narrative: Patient seen during EMR downtime. 29yoF presenting with left sided abdominal pain onset 5pm yesterday.? Pain is sharp, constant, improved if she lays flat on her back.? Tried Tylenol and hot shower without improvement.? Has never had pain like this before.? Some nausea when pain is at it?s worse, no vomiting.? No diarrhea.? No dysuria or hematuria.? No vaginal discharge or bleeding.? No fevers.? No prior abdominal or pelvic surgeries. Otherwise in her usual state of health.? Related Data Home Medications ?Medication ?Instructions ?Recorded ?Confirmed labetalol 100 mg tablet 100 mg PO QAM 09/25/21 12/27/24 melatonin 3 mg tablet 6 mg PO HS 09/25/21 12/27/24 pantoprazole 40 mg tablet,delayed 40 mg PO QAM 11/22/22 12/27/24 release clonidine HCl 0.2 mg tablet 0.2 mg PO QHS 02/15/23 12/27/24 docusate sodium 100 mg capsule 100 mg PO DAILY 03/24/23 12/27/24 quetiapine 25 mg tablet 25 mg PO BID 03/24/23 12/27/24 semaglutide 0.25 mg or 0.5 mg (2 0.25 mg subcut QWEEK 08/11/23 12/27/24 mg/3 mL) subcutaneous pen injector (Ozempic) lancets 33 gauge ([facility] 12/27/24 Plus Lancet) buspirone 7.5 mg tablet 10 mg PO BID 05/11/24 12/27/24 cholecalciferol (vitamin D3) 50 50 mcg PO DAILY 05/11/24 12/27/24 mcg (2,000 unit) capsule glimepiride 1 mg tablet 1 mg PO DAILY #14 tabs 08/01/24 12/27/24 ondansetron 4 mg disintegrating 4 mg PO Q8H PRN nausea and 10/15/24 12/27/24 tablet vomiting #30 tabs medroxyprogesterone 150 mg/mL 150 mg IM [id number] #1 mL 12/10/24 12/27/24 intramuscular syringe Previous Rx's ?Medication ?Instructions ?Recorded glimepiride 1 mg tablet 1 mg PO DAILY #14 tabs 08/01/24 ondansetron 4 mg disintegrating 4 mg PO Q8H PRN nausea and 10/15/24 tablet vomiting #30 tabs medroxyprogesterone 150 mg/mL 150 mg IM [id number] #1 mL 12/10/24 intramuscular syringe Allergies Allergy/AdvReac Type Severity Reaction Status Date / Time fluticasone (From Flovent Allergy Severe unknown Verified 12/19/24 04:24 HFA) lisinopril Allergy Intermediate unknown Verified 12/19/24 04:24 paroxetine HCl (From Paxil) Allergy Intermediate Hives Verified 12/19/24 04:24 risperidone (From Risperdal) Allergy Intermediate Hives Verified 12/19/24 04:24 NSAIDS (Non-Steroidal Allergy Due to Verified 12/19/24 04:24 Anti-Inflamma prior kidney damage fluoxetine AdvReac Intermediate Vomiting,di Verified 12/19/24 04:24 arrhea ibuprofen AdvReac Intermediate vomiting Verified 12/19/24 04:24 naproxen (From Aleve) AdvReac Intermediate vomiting Verified 12/19/24 04:24 sertraline AdvReac Intermediate WEIRD Verified 12/19/24 04:24 FEELING OVER MY BODY acetaminophen AdvReac Nausea Verified 12/19/24 04:24 amoxicillin AdvReac Nausea Verified 12/19/24 04:24 seafood Allergy Intermediate unknown Uncoded 12/19/24 04:24 enviornmental Allergy Mild sneezing Uncoded 12/19/24 04:24 dark sodas AdvReac Severe BAD FOR Uncoded 12/19/24 04:24 MY KIDNEYS General Stated Complaint: Abd Prob MARY KAY: 3 Review of Systems Narrative: see HPI Exam Narrative Exam Narrative: General: alert, well appearing, well nourished, in no acute distress Head: Normocephalic, atraumatic Neck: Trachea midline, neck supple ENT: MMM Cardiac: RRR, no murmurs appreciated Resp: No respiratory distress, CTAB Abd: Soft, non-distended.? Left mid abdomen TTP with no rebound or guarding.? No lower abdominal tenderness : No suprapubic tenderness. Extremities: No deformities. No peripheral edema Neuro: GCS 15.? Moves all extremities against gravity. Medical Decision Making 29yo?F presenting with mid-left abdominal pain for ~10 hours.? Vital signs reassuring on arrival, well appearing and non-peritoneal exam, does have mid left abdominal tenderness.? No lower abd tenderness to suggest ovarian or pelvic pathology.? Would not transfer for US at this time. Will get labs and CT; pt reports multiple allergies but does not know to which medications or what her reactions are, for this reason will hold off on pain medication other than tylenol (which she knows she tolerates) at this time. Labs reviewed as below; CBC reassuring with no leukocytosis or anemia, CMP with no actionable abnormalities, lipase not suggestive of pancreatitis, upreg negative, UA not suggestive of infection. CT abd/pelvis (without contrast as pt reports contrast allergy) independently reviewed; no obstruction or free fluid on my view; radiology read with epiploic appendagitis. On reassessment she remains well appearing with mild left mid abdominal tenderness on exam. Reports feeling better and requests discharge home. Advised symptomatic treatment at home. Discharged home; discharge instructions and return precautions were reviewed with patient who verbalized understanding. All questions were answered and she is in full agreement with the plan. Imaging Data Radiologic Study: Imaging: CT Scan Radiologist's impression: IMPRESSION: Findings compatible with epiploic appendagitis of the left lower quadrant. Lab Data Lab results reviewed: Yes I reviewed the patient's lab results. Quality:SDOH Health Related Social Needs: Health related social needs housing instability, house d, with risk of homelessness (Z59.811), problems related to housing/economic circumstances (Z59.89), problems with daily activities (Z73.9) PFSH All Active Problems (Updated 12/27/24 @ 05:45 by Eliane Rollins MD) Epiploic appendagitis (Acute) Diarrhea (Acute) Viral gastroenteritis (Acute) Abdominal pain (Acute) Nausea & vomiting (Acute) Abdominal pain (Acute) Cold exposure (Acute) Nicotine dependence (Acute) COVID (Acute) Hyperplastic colon polyp (Acute) Rectal polyp (Acute) Chronic kidney disease, stage 1 (Chronic 12/31/16) from renal infection as a child elevated BP resulting 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 Contraception, generic surveillance Hx of OCPs, Nexplanon, DepoProvera. 02/2023 Norethindrone 0.35mg till 05/2023. Resumed DepoProvera. Pt denies intercourse Sleep disturbance Oppositional defiant disorder IBS (irritable bowel syndrome) Anemia Rash, skin Borderline personality disorder Family history of colon cancer Fatigue Illiteracy Per caregiver she is able to read and write, she needs assitance with comprehension of more complex words. Hypertrophy of tonsils and adenoids Suicidal ideation Bipolar 2 disorder RBC microcytosis Vitamin D deficiency Steatosis of liver Back pain Dysuria Abdominal pain History of allergic reaction Hemolytic uremic syndrome PTSD (post-traumatic stress disorder) Mesenteric lymphadenitis Drug abuse, episodic use SASHA (stress urinary incontinence, female) Pain, dental Blood in stool History of mastoiditis Jaw pain TMJ tenderness, left Otalgia, right ear BMI 40.0-44.9, adult Overactive bladder (02/09/18) Generalized headaches (12/31/16) Depression (12/31/16) ADHD (attention deficit hyperactivity disorder) (12/31/16) Surgical History History of colonoscopy (~06/2022) Hx of tooth extraction History of kidney surgery Social History Smoking/Tobacco Use Status: Never Second Hand Exposure: No Smoking risk assessment performed?: Yes Alcohol Intake: current Alcohol Intake frequency: a few times a week Alcohol type: beer and hard liquor Drug use: Never Substance use type: does not use Caregiver/Support person: Yes Housing: apartment Sexually active: Yes (but has never had intercourse (former female partner)Sep 2024) Do you think of yourself as: bisexual What is your relationship status?: never Panel score (0-1 are the most socially isolated patients): 0 What type of physical activity do you participate in: none Seatbelt use: always Helmet use: Yes Do you feel safe at home: Yes Do you feel safe in your relationship?: Yes Additional 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
[2024-12-27 06:00] VITALS: BP 137/95; PULSE 88; RESP 22; TEMP 37.1; O2SAT 99
[2024-12-27 06:22] LABS: ALT 49 U/L (14-59); AST 17 U/L (15-37); Albumin 3.7 g/dL (3.4-5.0); Alkaline Phosphatase 98 U/L (46-116); Anion Gap 8.4 mmol/L (3-11); BUN 9 mg/dL (7-18); Bilirubin, Total 0.47 mg/dL (0.2-1.0); CO2 25.6 mmol/L (21.0-32.0); CREATININE 0.9 mg/dL (0.55-1.02); Calcium 9.3 mg/dL (8.5-10.1); Chloride 104 mmol/L (98-107); Estimated GFR 89.86 (mL/min/1.73m2); Glucose 153 mg/dL (74-106); Lipase 37 U/L (<78); Potassium 3.5 mmol/L (3.5-5.1); Sodium 138 mmol/L (136-145); Total Protein 7.7 g/dL (6.4-8.2)
[2024-12-27 06:23] LABS: Abs Immature Grans 0.04 10^3/uL (0.0-0.06); Absolute Basophil Count 0.06 10^3/uL (0.0-0.2); Absolute Eosinophil Count 0.19 10^3/uL (0.0-0.7); Absolute Lymphocyte Count 2.34 10^3/uL (1.2-3.4); Absolute Neutrophil Count 6.45 10^3/uL (1.2-6.7); Basophils % 0.6 %; Eosinophils % 1.9 %; HCT 39.8 % (36.0-46.0); HGB 12.6 g/dL (11.2-15.7); Immature Grans % 0.4 %; Lymphocytes % 23.4 %; MCH 22.7 pg (27.0-33.0); MCHC 31.7 % (32.0-36.0); MCV 72 fL (80-95); MPV 12.1 fL (8.0-11.0); Neutrophils % 64.7 %; Platelet Count 336 10^3/uL (130-400); RBC 5.55 10^6/uL (3.93-5.22); RDW 15.3 % (11.7-14.6); WBC 9.98 10^3/uL (4.4-10.8)
[2024-12-27 06:24] LABS: Microcytosis 1+
[2024-12-27 06:25] LABS: Bilirubin Negative (Negative); Blood Negative (Negative); Clarity Sl Cloudy (Clear); Glucose Negative (Negative); Ketones Negative (Negative); Leukocyte Esterase Negative (Negative); Nitrite Negative (Negative); Specific Gravity >= 1.030 (1.005-1.025); Urobilinogen 0.2 mg/dL (Up to 0.2)
[2024-12-27 06:26] LABS: Bacteria Rare HPF (Negative); C & S Indicated? No; Casts Negative LPF (Negative); Crystals Negative HPF (Negative); Epithelial Cells Few HPF (Negative); Mucus Trace (Negative); RBC Negative HPF (0-2)
--- NOTE | 2024-12-27 09:50 | DI.VRAD_ITS ---
PROCEDURE INFORMATION: Exam: CT Abdomen And Pelvis Without Contrast Exam date and time: 12/27/2024 3:28 AM Age: 29 years old Clinical indication: Abdominal pain; Localized; Left lower quadrant (llq); Llq/abd pain TECHNIQUE: Imaging protocol: Computed tomography of the abdomen and pelvis without contrast. Radiation optimization: All CT scans at this facility use at least one of these dose optimization techniques: automated exposure control; mA and/or kV adjustment per patient size (includes targeted exams where dose is matched to clinical indication); or iterative reconstruction. COMPARISON: CT ABDOMEN PELVIS [facility](Adult) 12/27/2024 3:28 AM FINDINGS: Lungs: Lung bases are clear as visualized. Heart: Base of heart is unremarkable as visualized. Liver: Normal. No mass. Gallbladder and biliary ducts: Normal. No calcified stones. No ductal dilation. Pancreas: Normal. No ductal dilation. Spleen: Normal. No splenomegaly. Adrenal glands: Normal. No mass. Kidneys and ureters: Normal. No hydronephrosis. Stomach and bowel: Unremarkable. No obstruction. No mucosal thickening. Moderate colonic stool burden. Appendix: No evidence of appendicitis. Intraperitoneal space: Adjacent the large bowel in the left lower quadrant, is a focus of inflammatory intraperitoneal fat stranding with the central dot (series 2, image 295). Vasculature: Unremarkable. No abdominal aortic aneurysm. Lymph nodes: Prominent lymph nodes of the mesentery, however none of which demonstrate pathologic morphology or size. Urinary bladder: Unremarkable as visualized. Reproductive: Unremarkable as visualized. Bones/joints: Unremarkable. No acute fracture. Soft tissues: Unremarkable. IMPRESSION: Findings compatible with epiploic appendagitis of the left lower quadrant. Dictated and Authenticated by: Javon Moran MD. Orderin Ria Del Rio MD
== END 2024-12-27 06:00 | disposition home or self-care (01) ==
PROVIDERS: Emergency Provider Student in an Organized Health Care Education/Training Program; PCP Nurse Practitioner Family
DX: R10.32 Left lower quadrant pain (principal); K63.89 Other specified diseases of intestine
CPT/HCPCS: 80053; 83690; 99284; 74176; 81003; 81015; 85025

== ENCOUNTER 2025-02-07 20:19 | Outpatient (REF) | payer MEDICAID, SELFPAY ==
[2025-02-07 19:47] LABS: Folate 18.6 ng/mL (8.6-20.0); Vitamin B12 231 pg/mL (193-986)
[2025-02-07 19:48] LABS: COMMENT (LAB VIEW ONLY) 111.48 mg/dL
[2025-02-07 19:53] LABS: Microalb ug/mg Crea 106.8 ug/mg Cr
[2025-02-11 16:03] LABS: Hemoglobinopathy Interpretat (See Note)
== END 2025-02-07 20:20 | disposition home or self-care (01) ==
LOC: NCHCN 20:19
PROVIDERS: PCP Nurse Practitioner Family; Visit Provider Nurse Practitioner Family
DX: E11.9 Type 2 diabetes mellitus without complications (principal); R71.8 Other abnormality of red blood cells
CPT/HCPCS: 82043; 82570; 82607; 82746; 83020

== ENCOUNTER 2025-04-17 20:46 | Outpatient (REF) | payer MEDICAID, SELFPAY | END 2025-04-17 20:47 | disposition home or self-care (01) | LOC: NCHCN 20:46 | PROVIDERS: PCP Nurse Practitioner Family; Visit Provider Family Medicine | DX: R82.90 Unspecified abnormal findings in urine (principal) | CPT/HCPCS: 87086 ==

== ENCOUNTER 2025-05-20 16:05 | Outpatient (REF) | payer MEDICAID, SELFPAY | END 2025-05-20 16:06 | disposition home or self-care (01) | LOC: NCHCN 16:05 | PROVIDERS: PCP Nurse Practitioner Family; Visit Provider Nurse Practitioner Family | DX: N89.8 Other specified noninflammatory disorders of vagina (principal) | CPT/HCPCS: 87086; 87480; 87510; 87660 ==